=== PATIENT | female | born 1940 | race Caucasian/White ===

== ENCOUNTER → 2016-08-12 | Outpatient (CLI) | payer MEDICARE ==
[~2016-08-12] MED LIST: AML5T; AMLO5TAB2 PO; ANAS1TAB7 PO; ASP325T; ASP325T PO; ASPI-875 PO; ASPI-983 PO; ASPI-999 PO; ATEN25TA PO; ATOR10TA66 PO; ATOR40TA70 PO; ATR20T; BUDE10.2 IH; CARV3.122 PO; CARV6.25; CARV6.252 PO; CEFD300C3 PO; CHOL10002; CHOL50003 PO; CLOP75TA PO; CLOP75TA28 PO; CLPD75T; CPR250T PO; D50KC PO; ESOM20SU PO; FAMO20TA73 PO; FRSM20T; FURO40TA4 PO; HYDR25TA4 PO; HYDR30CR69 TOP; INSU100I29 SQ; INSU100V16; INSU100V5 SQ; INSU100V6 SQ; ISM30TCR PO; KCL10CCR PO; L.AC1CAP6 PO; LEVO750T9 PO; LIRA0.6P SQ; LISI10TA PO; LISI20TA PO; LSNP20T; MENT71OI TOP; MTF500T; NF-PREG50C PO; NFMET1000 PO; NITR-65 PO; NITR0.4T SL; NITR0.4T12 SL; NOVOLOG INSULIN PUMP; OMEP-10; OMEP-10 PO; ONDN4T PO; PANT40TA3 PO; POTA20TA8 PO; PRAV40TA PO; PREG50C PO; PREG75CA PO; ROSU20TA PO; ROSU20TA14 PO; SUCR1TAB PO; TRM50T PO; VITAMIN B12 IJ; WARF-48 PO; [UNRECOGNIZED DRUG - CODE] PO
--- OUTSIDE RECORDS SUMMARY | 2016-08-12 12:16 | XMS REPORT | Continuity of Care Document ---
Author Author [facility] Organization [facility] Address Unknown Phone Unavailable Care Team Providers Care Roller Mechanic Name Role Phone DESTINEE SULTANA DO PCP Insurance Providers Payer Name Policy Number Subscriber Name Relationship [employer] [id number] Shamika Suh 18 Self / Same As Patient [facility] [id number] Shamika Suh 18 Self / Same As Patient Advance Directives Directive Response Recorded Date/Time Advance Directives No 12/25/14 5:00pm Health Care Power of Global Expansion Sales Director N KNOWS PATIENT WISHES 12/25/14 5:00pm Organ Donor Yes 12/25/14 5:00pm Resuscitation Status Full Code 12/25/14 5:00pm Chief Complaint and Reason for Visit Chief Complaint CHEST PAIN Reason for Visit IDDM (insulin dependent diabetes mellitus) Diabetic neuropathy Coronary artery disease Peripheral vascular disease Chest pain Hypertension Problems Medical Problems Problem Onset Date Status IDDM (insulin dependent diabetes mellitus) Unknown Active Diabetic neuropathy Unknown Active Coronary artery disease Unknown Active Peripheral vascular disease Unknown Active Chest pain Unknown Active Hypertension Unknown Active Medications Medication Dose Route Sig Days/Qty Instructions Order Date Discontinued Date Status Lisinopril 07/26/08 01/26/10 Discontinued Metformin HCl 07/26/08 01/26/10 Discontinued Amlodipine Besylate 07/26/08 01/26/10 Discontinued Furosemide 07/26/08 01/26/10 Discontinued Clopidogrel Bisulfate 07/26/08 01/26/10 Discontinued Carvedilol 07/26/08 01/26/10 Discontinued Omeprazole 07/26/08 01/26/10 Discontinued Aspirin 07/26/08 01/26/10 Discontinued Cholecalciferol 07/26/08 01/26/10 Discontinued Atorvastatin Calcium 07/26/08 01/26/10 Discontinued [Bslklx17 Mg] 75 Mg PO TWICE A DAY 01/26/10 01/10/11 Discontinued Potassium Chloride 10 Meq PO DAILY 01/26/10 10/20/12 Discontinued Furosemide (Lasix) 40 Mg PO DAILY 01/26/10 08/19/11 Discontinued Rosuvastatin Calcium 20 Mg PO DAILY 01/26/10 01/10/11 Discontinued Metformin HCl 1,000 Mg PO THREE TIMES A DAY 1 TAB AM, 0.5 TAB NOON, 1 TAB PM 01/26/10 10/15/13 Discontinued Carvedilol (Coreg) 3.125 Mg PO TWICE A DAY 01/26/10 10/20/12 Discontinued Amlodipine Besylate (Norvasc 5 Mg) 10 Mg PO DAILY 01/26/10 08/19/11 Discontinued Clopidogrel Bisulfate 75 Mg PO DAILY 01/26/10 12/25/14 Discontinued Aspirin 81 Mg PO DAILY 01/26/10 12/25/14 Discontinued Anastrozole 1 Mg PO DAILY 01/10/11 01/10/11 Discontinued Ergocalciferol 50,000 Unit PO WEEKLY 01/10/11 01/10/11 Discontinued Pravastatin Sodium 40 Mg PO BEDTIME 01/10/11 10/20/12 Discontinued Famotidine 20 Mg PO DAILY 01/10/11 10/20/12 Discontinued Liraglutide 1.8 Mg SQ BEDTIME 01/10/11 Active [Novolog Insulin Pump] 01/10/11 Active Lisinopril (Zestril) 20 Mg PO DAILY 01/10/11 08/19/11 Discontinued [Vitamin B-12 inj] IJ Monthly 01/10/11 08/19/11 Discontinued Cholecalciferol 5,000 Unit PO WEEKLY TAKES ON Thursday01/10/11 Discontinued Nitroglycerin 0.4 Mg SL NEEDED 01/10/11 08/19/11 Discontinued Furosemide (Lasix) 1 Each PO TWICE A DAY 01/11/11 10/20/12 Discontinued Isosorbide Mononitrate 30 Mg PO BEDTIME 01/11/11 10/15/13 Discontinued Anastrozole 1 Mg PO DAILY 08/19/11 10/15/13 Discontinued Carvedilol (Coreg) 6.25 Mg PO TWICE A DAY 10/20/12 12/25/14 Discontinued Rosuvastatin Calcium 20 Mg PO BEDTIME 10/20/12 10/15/13 Discontinued Omeprazole 20 Mg PO DAILY 10/20/12 12/25/14 Discontinued Lisinopril 10 Mg PO DAILY 10/21/12 10/15/13 Discontinued Ciprofloxacin HCl 250 Mg PO TWICE A DAY 10 Qty 10/25/12 10/15/13 Discontinued Tramadol HCl 50 Mg PO Q4-6HR PRN PAIN 20 Qty FOR PAIN 10/15/13 12/25/14 Discontinued Pregabalin 50 Mg PO DIRECTED 30 Qty 10/15/13 12/25/14 Discontinued Insulin Detemir SQ DAILY per sliding scale 12/25/14 Active Esomeprazole Mag Trihydrate 20 Mg PO BEDTIME 12/25/14 Active Pregabalin 50 Mg PO TWICE A DAY PRN neuropothy 12/25/14 Active Hydrochlorothiazide 25 Mg PO DAILY 12/25/14 Active Aspirin 81 Mg PO DAILY 30 Qty 12/26/14 Active Atorvastatin Calcium 10 Mg PO DAILY 30 Qty 12/26/14 Active Nitroglycerin 0.4 Mg SL NEEDED 30 Qty 12/26/14 Active Social History Social History Problem Response Recorded Date/Time Alcohol Use Denies Use 12/25/2014 5:00pm Recreational Drug Use No 12/25/2014 5:00pm Recent Foreign Travel No 10/15/2013 6:30pm Recent Infectious Disease Exposure No 10/15/2013 6:30pm Hospitalization with Isolation Denies 10/15/2013 6:30pm Smoking Status Never a Smoker 12/25/2014 6:00pm Query Response Start Date Stop Date Smoking Status Never a Smoker Hospital Discharge Instructions No hospital discharge instructions. Plan of Care Discharge Date 12/26/14 2:46pm Disposition 01 HOME, SELF-CARE Instructions/Education Provided 2 Gram Sodium Diet (DC) Prescriptions See Medications Section Additional Instructions/Education Follow up with Dr. Bauman on ThursdayJanuary 12 at 10:00 Functional Status Query Response Date Recorded Patient Orientation Person Place Time Situation December 26, 2014 3:07pm Allergies, Adverse Reactions, Alerts Allergen Type Severity Reaction Status Last Updated Penicillins ([id number]) Allergy Unknown Active 02/10/06 Codeine Allergy Unknown CAN TAKE MORPHINE Active 01/10/11 hydrocodone ([id number]) Allergy Unknown Active 02/10/06 sulfamethoxazole ([id number]) Allergy Intermediate Active 12/25/14 Trimethoprim Allergy Intermediate Active 12/25/14 Tramadol Allergy Intermediate Active 12/25/14 Immunizations Name Given Type Date of Pneumonia Vaccine 12/18/10 Historical Date of Influenza Vaccine 04/19/13 Historical Hepatitis A No Historical Hepatitis B No Historical Tetanus Booster (TDap) Less than 5yrs Historical Vital Signs Acute Vital Signs Vital Response Date/Time Temperature (Fahrenheit) 96.4 degrees F (97.6 - 99.5) Temperature (Calculated Celsius) 35.11228 degrees C (36.4 - 37.5) Temperature Source Temporal Pulse Rate (adult) 80 bpm (60 - 90) Respiratory Rate 20 bpm (12 - 24) O2 Sat by Pulse Oximetry 96 % (88 - 100) Blood Pressure 121/85 mm Hg Pain Pain Intensity 0 Height (Feet) 0 feet Height (Inches) 66.00 inches Height (Calculated Centimeters) 167.574387 cm Weight (Pounds) 201 pounds Weight (Ounces) 8.0 oz Weight (Calculated Grams) 74910.067 gm Weight (Calculated Kilograms) 91.138766 kilograms Calculated BMI 32.44 Results Laboratory Results Test Name Result Units Flags Reference Collection Date/Time Result Date/ Time Comments White Blood Count 8.4 10^3/uL 4.3-11.0 12/26/2014 4:16am 12/26/2014 4: 41am Red Blood Count 4.53 10^6/uL 4.35-5.85 12/26/2014 4:16am 12/26/2014 4: 41am Hemoglobin 12.8 G/DL 11.5-16.0 12/26/2014 4:16am 12/26/2014 4:41am Hematocrit 39 % 35-52 12/26/2014 4:16am 12/26/2014 4:41am Mean Corpuscular Volume 86 FL 80-99 12/26/2014 4:12/26/2014 4: 41am Mean Corpuscular Hemoglobin 28 PG 25-34 12/26/2014 4:12/26/2014 4: 41am Mean Corpuscular Hemoglobin Concent 33 G/DL 32-36 12/26/2014 4:03/2015 4:41am Red Cell Distribution Width 14.2 % 10.0-14.5 12/26/2014 4:2014 4:41am Platelet Count 207 10^3/uL 130-400 12/26/2014 4:12/26/2014 4:41am Mean Platelet Volume 10.0 FL 7.4-10.4 12/26/2014 4:12/26/2014 4: 41am Neutrophils (%) (Auto) 58 % 42-75 12/26/2014 4:12/26/2014 4:41am Lymphocytes (%) (Auto) 32 % 12-44 12/26/2014 4:12/26/2014 4:41am Monocytes (%) (Auto) 8 % 0-12 12/26/2014 4:12/26/2014 4:41am Eosinophils (%) (Auto) 2 % 0-10 12/26/2014 4:12/26/2014 4:41am Basophils (%) (Auto) 0 % 0-10 12/26/2014 4:12/26/2014 4:41am Neutrophils # (Auto) 4.8 X 10^3 1.8-7.8 12/26/2014 4:12/26/2014 4: 41am Lymphocytes # (Auto) 2.7 X 10^3 1.0-4.0 12/26/2014 4:12/26/2014 4: 41am Monocytes # (Auto) 0.6 X 10^3 0.0-1.0 12/26/2014 4:12/26/2014 4: 41am Eosinophils # (Auto) 0.2 10^3/uL 0.0-0.3 12/26/2014 4:12/26/2014 4 :41am Basophils # (Auto) 0.0 10^3/uL 0.0-0.1 12/26/2014 4:1612/26/2014 4: 41am Prothrombin Time 12.9 SEC 12.2-14.7 12/25/2014 2:50pm 12/25/2014 3: 16pm INR Comment 1.0 0.8-1.4 12/25/2014 2:50pm 12/25/2014 3:16pm INTERPRETIVE DATA SUGGESTED THERAPEUTIC RANGE FOR INR'S: VENOUS THROMBOSIS, PULMONARY EMBOLISM, OR PREVENTION OF SYSTEMIC EMBOLISM (EG. IN ATRIAL FIBRILLATION): 2.0 - 3.0 MECHANICAL PROSTHETIC HEART VALVES: 2.5 - 3.5* *NOTE: INR'S UP TO 4.5 MAY BE NECESSARY IN SELECTED GROUPS OF HIGH RISK PATIENTS. [employer] CONSENSUS CONFERENCE ON ANTITHROMBOTIC THERAPY (2000). Activated Partial Thromboplast Time 29 SEC 24-35 12/25/2014 4:40pm 02/2015 7:01pm Sodium Level 140 MMOL/L 135-145 12/26/2014 4:16am 12/26/2014 4:57am Potassium Level 4.2 MMOL/L 3.6-5.0 12/26/2014 4:16am 12/26/2014 4:57am Chloride Level 104 MMOL/L 98-107 12/26/2014 4:16am 12/26/2014 4:57am Carbon Dioxide Level 24 MMOL/L 21-32 12/26/2014 4:16am 12/26/2014 4: 57am Blood Urea Nitrogen 27 MG/DL H 7-18 12/26/2014 4:16am 12/26/2014 4:57am Creatinine 1.12 MG/DL 0.60-1.30 12/26/2014 4:16am 12/26/2014 4:57am BUN/Creatinine Ratio 24 12/26/2014 4:16am 12/26/2014 4:57am Estimat Glomerular Filtration Rate 47 12/26/2014 4:16am 12/26/2014 4:57am GFR INTERPRETIVE DATA UNITS FOR ESTIMATED GFR (eGFR): mL/min/1.73 M2 REFERENCE RANGE FOR ESTIMATED GFR (eGFR) eGFR NORMAL eGFR >60 MODERATELY DECREASED eGFR 30-59 SEVERLY DECREASED eGFR 15-29 KIDNEY FAILURE <15 (OR DIALYSIS) Glucose Level 95 MG/DL 70-105 12/26/2014 4:16am 12/26/2014 4:57am Glucometer 180 MG/DL H 70-110 12/26/2014 9:32am 12/26/2014 9:41am Calcium Level 9.1 MG/DL 8.5-10.1 12/26/2014 4:16am 12/26/2014 4:57am Total Bilirubin 0.4 MG/DL 0.1-1.0 12/26/2014 4:16am 12/26/2014 4:57am Alkaline Phosphatase 54 U/L 40-136 12/26/2014 4:16am 12/26/2014 4:57am Aspartate Amino Transf (AST/SGOT) 19 U/L 5-34 12/26/2014 4:16am 2014 4:57am Alanine Aminotransferase (ALT/SGPT) 19 U/L 0-55 12/26/2014 4:16am 12/26 4:57am Total Creatine Kinase 74 U/L 29-168 12/25/2014 2:50pm 12/25/2014 3: 21pm Creatine Kinase MB 1.2 NG/ML <6.6 12/25/2014 2:50pm 12/25/2014 3:29pm Troponin I < 0.30 NG/ML <0.30 12/26/2014 4:16am 12/26/2014 5:06am Troponin I < 0.30 NG/ML <0.30 12/25/2014 4:40pm 12/25/2014 7:15pm Myoglobin 38.0 NG/ML 10.0-92.0 12/25/2014 4:40pm 12/25/2014 7:15pm B-Type Natriuretic Peptide 52.2 PG/ML <100.0 12/25/2014 2:50pm 2014 3:31pm Total Protein 6.8 G/DL 6.4-8.2 12/26/2014 4:16am 12/26/2014 4:57am Albumin 3.6 G/DL 3.2-4.5 12/26/2014 4:1612/26/2014 4:57am Triglycerides Level 222 MG/DL H <150 12/26/2014 4:16am 12/26/2014 4:57am Cholesterol Level 186 MG/DL < 200 12/26/2014 4:16am 12/26/2014 4:57am HDL Cholesterol 31 MG/DL L 40-60 12/26/2014 4:16am 12/26/2014 4:57am LDL Cholesterol Direct 116 MG/DL 1-129 12/26/2014 4:16am 12/26/2014 4: 57am VLDL Cholesterol 44 MG/DL H 5-40 12/26/2014 4:16am 12/26/2014 4:57am Amylase Level 44 U/L 25-125 12/25/2014 2:50pm 12/25/2014 3:21pm Lipase 44 U/L 8-78 12/25/2014 2:50pm 12/25/2014 3:21pm Procedures Procedure Status Date Provider(s) Tracing only of electrocardiogram completed 12/25/14 DENIS HAIDER DO Color Doppler echocardiography completed 12/25/14 DIMPLE BAUMAN MD Encounters Encounter Location Date/Time Discharged Inpatient [facility] 12/25/14 4:05pm Recent Diagnosis IDDM (insulin dependent diabetes mellitus) Diabetic neuropathy Coronary artery disease Peripheral vascular disease Chest pain Hypertension
--- NOTE | 2016-08-12 19:00 | Diagnostic Imaging Report ---
Digital mammogram bilateral screening INDICATION: Screening. This study was compared to the prior exams of 08/10/2015, 08/08/2014, 07/25/2013, and 01/17/2013. At this time, there are no current complaints. The patient has had a left lumpectomy for carcinoma in 2009. The current study was also evaluated with a Computer Aided Detection (CAD) system. FINDINGS: As noted on the previous exams, there is deformity of the left breast due to the prior surgical procedure. The scar formation in the upper-outer aspect of the left breast seen previously is again evident and no different. There is no sign of recurrent malignancy. The fibroglandular tissue in both breasts is heterogeneously dense. This does limit the sensitivity of this exam. Overall, there does not appear to have been any significant change since the prior studies. There is no primary or secondary sign of malignancy noted. IMPRESSION: The post-lumpectomy changes in the left breast appear stable. There is no sign of malignancy involving either breast. ACR BI-RADS Category 1: Negative. Result letter will be mailed to the patient. Note: At least 10% of breast cancer is not imaged by mammography. Dictated by: Dictated on workstation # [id number]
== END ==
LOC: RAD 12:12
PROVIDERS: ATTEND Nurse Practitioner Adult Health
DX: Z12.31 Encounter for screening mammogram for malignant neoplasm of breast (principal)

== ENCOUNTER → 2016-12-17 | Outpatient (CLI) | payer MEDICARE ==
--- NOTE | 2016-12-17 15:06 | Diagnostic Imaging Report ---
PROCEDURE: US Thyroid. TECHNIQUE: Multiple real-time grayscale images were obtained of the thyroid in various projections. INDICATION: Thyroid nodule. COMPARISON: 06/06/2016. FINDINGS: Right lobe measures 3.8 x 1.8 x 1.5 cm, previously 4.6 x 1.9 x 1.8 cm mildly smaller. Right lobe contains a mid pole nodule oriented laterally and posteriorly measuring 1.5 x 1.1 x 0.9 cm. It is somewhat heterogeneous but its predominant composition is hyperechoic. The mass previously measured 1.1 cm maximal. The left lobe measures 4.8 cm maximal unchanged. A 5 mm nodule off its upper pole is stable. An 8 mm nodule at its lower pole is stable. IMPRESSION: Stable subcentimeter left lobe nodules. Right lobe mass solid hyperechoic mid pole posterolateral measures 1.5 cm maximal previously 1.1 cm. No new lesion. Dictated by: Dictated on workstation # [id number]
== END ==
LOC: RAD 12:08
PROVIDERS: ATTEND Nurse Practitioner Family
DX: E04.1 Nontoxic single thyroid nodule (principal)
CPT/HCPCS: 76536

== ENCOUNTER → 2016-12-24 | Outpatient (CLI) | payer MEDICARE ==
[~2016-12-24] VITALS: Ht 167.6 cm; Wt 93.4 kg
[~2016-12-24] MED LIST changes: +CATHETER FLUSH 10 ML SYR IV PRN; +METO-270 PO; +REGADENOSON 0.4 MG/5 ML SYR (LEXISCAN) IV ONE
[2016-12-24 13:18] VITALS: BP 164/107
[2016-12-24 13:23] VITALS: BP 174/85
--- NOTE | 2016-12-25 06:12 | STRESS TEST ---
DATE OF SERVICE: 12/24/2016 LEXISCAN MYOVIEW STRESS TEST REFERRING PHYSICIAN: Rashaun Gonzales MD Baseline heart rate is 88 baseline, blood pressure 188/100. Baseline EKG is sinus rhythm with no ischemic changes. SUMMARY: The patient was injected with 10.36 mCi of technetium-99 Myoview and the resting images were obtained. Then, the patient received 0.4 mg of Lexiscan followed by 29.6 mCi of technetium-99 Myoview. Throughout the test, there were no EKG changes. The resting and stress images were reviewed and compared in the short axis, horizontal long axis and vertical long axis views. Review of the images showed breast attenuation affecting the quality of the images. There is questionable mild ischemia involving the mid to apical anterior wall or anterolateral wall. SSS is 4, SDS 4. TID is increased of 1.31, which could be related to the underlying hypertension. On the gated images, the left ventricle appeared to be normal size with normal contractility, calculated ejection fraction 48%. CONCLUSION: 1. The patient tolerated Lexiscan well. 2. Baseline hypertension persisted throughout test. 3. Breast attenuation affecting the quality of the images with questionable mild ischemia involving the mid to apical anterior wall and anterolateral wall. 4. Transient ischemic dilatation with TID value 1.31. 5. Normal left ventricular size with normal contractility, calculated ejection fraction 48%. Job ID: [id number] DocumentID: [id number] Dictated Date: 12/24/2016 15:14:10 Card Puncher Date: 12/24/2016 19:54:47 Dictated By: DIMPLE NOVOA MD
== END ==
LOC: CARD 10:48
PROVIDERS: ATTEND Physician Assistant
DX: I25.10 Atherosclerotic heart disease of native coronary artery without angina pectoris (principal); I65.23 Occlusion and stenosis of bilateral carotid arteries; E11.9 Type 2 diabetes mellitus without complications; I10 Essential (primary) hypertension
CPT/HCPCS: 78452; 93017; 93306

== ENCOUNTER 2016-12-26 07:30 | Day surgery (SDC) | payer MEDICARE ==
[~2016-12-26] VITALS: Ht 167.6 cm; Wt 92.1 kg
[2016-12-26] VITALS (26 sets, daily range): BP systolic 90–169; BP diastolic 55–106
[~2016-12-26 07:30] MED LIST changes: -CATHETER FLUSH 10 ML SYR IV PRN; -METO-270 PO; -REGADENOSON 0.4 MG/5 ML SYR (LEXISCAN) IV ONE
[2016-12-26] MEDS ORDERED: NS IV 1000 ML 1,000 ML ONE (07:32)
[2016-12-26] MEDS ORDERED: HEParin (CATH LAB) 2,000 ML IV ONE ×2 (07:32→12:20)
[2016-12-26] MEDS ORDERED: NS IV 1000 ML 1,000 ML IV SCH ×2 (08:06→11:00)
[2016-12-26] MEDS ORDERED: ASPI-983 PO (08:32)
[2016-12-26] MEDS ORDERED: METO-270 PO (08:37)
[2016-12-26 08:38] LABS: BILIRUBIN,URINE NEGATIVE (NEGATIVE); KETONES,URINE NEGATIVE (NEGATIVE); LEUKOCYTE ESTERASE ,URINE 2+ (NEGATIVE); NITRITE,URINE POSITIVE (NEGATIVE); PH,URINE 5 (5-9); PROTEIN,URINE 2+ (NEGATIVE); UROBILINOGEN,URINE NORMAL (NORMAL)
--- NOTE | 2016-12-26 08:41 | Diagnostic Imaging Report ---
INDICATION: Chest pain Frontal chest obtained at 8:18 AM and compared with 12/05/15. Heart is normal in size. Pacemaker device is unchanged. There is no acute infiltrate or pneumothorax or pleural fluid. IMPRESSION: No acute process in the chest and no change from 12/05/15. Dictated by: Dictated on workstation # [id number]
[2016-12-26 08:50] LABS: WBC,URINE 25-50 /HPF
[2016-12-26 08:56] LABS: ALBUMIN 3.9 G/DL (3.2-4.5); BILIRUBIN,TOTAL 0.5 MG/DL (0.1-1.0); CALCIUM 9.3 MG/DL (8.5-10.1); CREATININE SERUM 1.47 MG/DL (0.60-1.30); POTASSIUM 4.1 MMOL/L (3.6-5.0); TOTAL PROTEIN 7.7 G/DL (6.4-8.2)
[2016-12-26] MEDS ORDERED: MIDAZOLAM 5 MG/5 ML (VERSED) VIAL ONE (09:54)
[2016-12-26] MEDS ORDERED: fentaNYL INJECTION 100 MCG/2 ML AMP ONE ×2 (09:54→12:29)
--- NOTE | 2016-12-26 10:01 | Cardiac Procedure Note-CS/ASA ---
Pre-Procedure Note Pre-Op Procedure Note H&P Reviewed The H&P was reviewed, patient examined and no changes noted. Date H&P Reviewed: Dec 26, 2016 Time H&P Reviewed: 10: Conscious Sedation Pre-Proced Time Reviewed: 10: ASA Class: 3 Airway Mallampati Classification: (tunica-biloxi appropriate class) I. II. III, IV Lungs Heart ASA score ASA 1: a normal healthy patient ASA 2: a patient with a mild systemic disease (mid diabetes, controlled hypertension, obesity x ASA 3: a patient with a severe systemic disease that limits activity (angina , COPD, prior Myocardial infarction) ASA 4: a patient with an incapacitating disease that is a constant threat to life (CHF, renal failure) ASA 5: a moribund patient not expected to survive 24 hrs. (ruptured aneurysm) ASA 6: a declared brain patient whose organs are being harvested. For emergent operations, add the letter E after the classification Grade 3 Sedation Plan: Analgesia, Amnesia, Plan communicated to team members, Discussed options with patient/fam, Discussed risks with patient/fam Note The patient is an appropriate candidate to undergo the planned procedure, sedation, and anesthesia. The patient immediately re-assessed prior to indication. DIMPLE NOVOA MD Dec 26, 2016 10:01
[2016-12-26 10:40] LABS: BASOPHILS % (AUTO) 0 % (0-10); EOSINOPHILS # (AUTO) 0.2 10^3/uL (0.0-0.3); EOSINOPHILS % (AUTO) 3 % (0-10); LYMPHOCYTES # (AUTO) 2.1 X 10^3 (1.0-4.0); LYMPHOCYTES % (AUTO) 29 % (12-44); MEAN CORPUSCULAR HEMOGLOBIN 27 PG (25-34); MEAN CORPUSCULAR HGB CONC 32 G/DL (32-36); MEAN CORPUSCULAR VOLUME 82 FL (80-99); MONOCYTES # (AUTO) 0.7 X 10^3 (0.0-1.0); MONOCYTES % (AUTO) 10 % (0-12); NEUTROPHILS # (AUTO) 4.1 X 10^3 (1.8-7.8); NEUTROPHILS % (AUTO) 58 % (42-75); PLATELET COUNT 191 10^3/uL (130-400); RED BLOOD COUNT 5.66 10^6/uL (4.35-5.85); RED CELL DISTRIBUTION WIDTH 17.2 % (10.0-14.5); WHITE BLOOD COUNT 7.1 10^3/uL (4.3-11.0)
[2016-12-26] MEDS ORDERED: EPTIFIBATIDE BOLUS 0 ML IV ONE (10:43)
[2016-12-26] MEDS ORDERED: NITROGLYCERIN DRIP 25 MG/D5W 250 ML IV ONE ×2 (10:43→12:29)
[2016-12-26] MEDS ORDERED: HEParin 1000 UNIT/ML (10ML VIAL) FOR BOLUS ONE ×2 (10:43→12:30)
[2016-12-26] MEDS ORDERED: meTOprolol 5 MG/5 ML (LOPRESSOR) VIAL ONE (10:46)
[2016-12-26] MEDS ORDERED: PATIENT MAY USE OWN MEDS, ALL PO SCH ×2 (11:00→13:15)
--- NOTE | 2016-12-26 11:04 | Cardiology Post Procedure Note ---
Post-Procedure Note Physician (s)/Satellite Communications Operator (s) Physician DIMPLE NOVOA MD Pre-Procedure Diagnosis Pre-Procedure Diagnosis: CAD Post-Procedure Note Procedure Start Date: Dec 26, 2016 Procedure Start Time: 10:40 Name of Procedure: LHC/ PTCA Findings/Procedure Note CAD Severe in-stent restenosis in the mid circumflex artery successful balloon angioplasty Patent stent in the LAD and right coronary artery with 50 percent stenosis Anesthesia Type: Conscious Sedation Estimated blood loss (mL): 10 Contrast Amount: 35 Post-Procedure Diagnosis Post-operative diagnosis: coronary artery disease DIMPLE NOVOA MD Dec 26, 2016 11:04
[2016-12-26] MEDS ORDERED: ASPIRIN 325 MG (5 GR) TABLET ONE (11:07)
[2016-12-26] MEDS ORDERED: CLOPIDOGREL 300 MG (PLAVIX) TABLET PO ONE (11:08)
[2016-12-26] MEDS ORDERED: NITROGLYCERIN DRIP 25 MG/D5W 250 ML IV SCH (11:15)
[2016-12-26] MEDS ORDERED: ISOSORBIDE MONONITRATE 30 MG (IMDUR) TAB PO NR (11:15)
[2016-12-26] MEDS ORDERED: inSUlin ASPART (NovoLOG) 1 UNIT/0.01 ML (CHARGE PER UNIT) SC SCH (11:15)
[2016-12-26] MEDS: NITROGLYCERIN SUBLINGUAL 0.4 MG TAB (NITROSTAT) SL PRN ×3 (12:10→12:16)
[2016-12-26] MEDS ORDERED: MIDAZOLAM 2 MG/2 ML (VERSED) VIAL ONE (12:29)
--- NOTE | 2016-12-26 12:29 | Cardiac Procedure Note-CS/ASA ---
Pre-Procedure Note Pre-Op Procedure Note H&P Reviewed The H&P was reviewed, patient examined and no changes noted. Date H&P Reviewed: Dec 26, 2016 Time H&P Reviewed: 12:29 Conscious Sedation Pre-Proced Time Reviewed: 12:29 ASA Class: 3 Airway Mallampati Classification: (angoon appropriate class) I. II. III, IV Lungs Heart ASA score ASA 1: a normal healthy patient ASA 2: a patient with a mild systemic disease (mid diabetes, controlled hypertension, obesity x ASA 3: a patient with a severe systemic disease that limits activity (angina , COPD, prior Myocardial infarction) ASA 4: a patient with an incapacitating disease that is a constant threat to life (CHF, renal failure) ASA 5: a moribund patient not expected to survive 24 hrs. (ruptured aneurysm) ASA 6: a declared brain patient whose organs are being harvested. For emergent operations, add the letter E after the classification Grade 3 Sedation Plan: Analgesia, Amnesia, Plan communicated to team members, Discussed options with patient/fam, Discussed risks with patient/fam Note The patient is an appropriate candidate to undergo the planned procedure, sedation, and anesthesia. The patient immediately re-assessed prior to indication. DIMPLE NOVOA MD Dec 26, 2016 12:29
--- NOTE | 2016-12-26 13:24 | Cardiology Post Procedure Note ---
Post-Procedure Note Physician (s)/Licensed Home Inspector (s) Physician DIMPLE NOVOA MD Pre-Procedure Diagnosis Pre-Procedure Diagnosis: CAD Post-Procedure Note Procedure Start Date: Dec 26, 2016 Procedure Start Time: 13:00 Name of Procedure: LHC/ Stent to LCX Anesthesia Type: Conscious Sedation Estimated blood loss (mL): 5 Contrast Amount: 77 Post-Procedure Diagnosis Post-operative diagnosis: CAD DIMPLE NOVOA MD Dec 26, 2016 13:24
--- NOTE | 2016-12-26 13:42 | CARDIAC CATHETERIZATION ---
DATE OF SERVICE: 12/26/2016 REFERRING PHYSICIAN: Dr. Rashaun Gonzales. BRIEF HISTORY: The patient is a 76-year-old lady with history of coronary artery disease, multiple interventions in the past. The patient has been having chest pain, had an abnormal stress test. She was scheduled for left heart catheterization, possible PTCA. PROCEDURE NOTE: After explaining the procedure to the patient, all pros and cons were explained, all questions were answered. The patient signed the consent and she was placed on the cardiac catheterization laboratory. Right groin was prepped in a sterile fashion, local anesthesia applied to the right groin. A 6 Serbian sheath was placed in the right femoral artery. A combination of right and left Diana catheters were used to access the right and left coronary system, multiple views were obtained. Pigtail catheter advanced to the left ventricular cavity. Pressure was measured. No left ventriculogram was done. Pull back LV to aorta was done. The patient was noted to have severe in-stent restenosis in the mid circumflex artery, 80% stenosis. She was given 6000 units of heparin. FL guide was advanced to the left coronary system. BMW wire was advanced to the distal circumflex artery, then balloon angioplasty using 3.0 x 20 mm Emerge balloon, extended to 3.25 mm. Angiogram post-intervention showed excellent results, no residual stenosis. At the end of the procedure, sheath was sutured in place, no complication noted. TOTAL CONTRAST USED: 35 mL. TOTAL RADIATION DOSE: 439 mGy. FINDINGS: Hemodynamics: LV pressure 220/39, end-diastolic pressure of 39, aortic pressure is 205/102, mean of 147. ANATOMY: 1. The left main coronary artery is bifurcating into left anterior descending and left circumflex artery with no obstructive disease. 2. Left anterior descending artery is a calcified artery, stents are patent, small vessel disease distally. 3. Left circumflex artery has multiple stents, 80% in-stent restenosis in the mid circumflex artery, balloon angioplasty with 3.0 x 20 mm Emerge balloon showed excellent results. No residual stenosis. 4. Right coronary artery has multiple stents, proximally 50% stenosis, mid portion has 40%-50% stenosis. Non-obstructive disease, small vessel disease distally. 5. No left ventriculogram was done. IN CONCLUSION: 1. An 80% in-stent restenosis in the mid circumflex artery with successful balloon angioplasty using 3.0 x 20 mm Emerge balloon expanded to 3.25 mm with excellent results. No residual stenosis was noted. 2. Small vessel disease in the mid and distal LAD. 3. A 50% stenosis in the proximal and mid right coronary artery with multiple patent stents, small vessels disease distally, nonobstructive disease. 4. Severe hypertension with elevated left ventricular end-diastolic pressure. DISCUSSION AND RECOMMENDATIONS: I will continue maximizing medical therapy. Further recommendation will follow based on her progression. FINAL DIAGNOSES: 1. Coronary artery disease. 2. Hypertension. 3. Hyperlipidemia. 4. Peripheral arterial disease. Thank you for allowing me to participate in the management of this patient. Job ID: [id number] DocumentID: [id number] Dictated Date: 12/26/2016 11:09:33 Electrical Prospecting Operator Date: 12/26/2016 12:15:26 Dictated By: DIMPLE NOVOA MD
--- NOTE | 2016-12-26 15:42 | CARDIAC CATHETERIZATION ---
DATE OF SERVICE: 12/26/2016 BRIEF HISTORY: The patient is a 76-year-old lady who underwent cardiac catheterization with balloon angioplasty for instent restenosis earlier today. She was feeling well then she started having active chest pain, given multiple sublingual nitroglycerine and started on nitroglycerine drip, continued to have active chest pain. EKG showed minimal changes. I decided to proceed with emergency reevaluation of her coronary anatomy. PROCEDURE NOTE: The patient was brought back to the cardiac catheterization laboratory, placed on the cardiac catheterization laboratory. The patient had a sheath in the right groin. It was exchanged under aseptic technique. A new sheath was placed and I advanced a JL guide to the left coronary system. Angiogram was done and showed recoil within the stent with the instent restenosis. The patient was given an additional 5000 units of heparin. I advanced BMW wire again and advanced a noncompliant balloon 3.5 x 20 mm, did multiple inflations under high pressure up to 17 atmospheres. Angiogram showed excellent results. Some recoil was noted again. Subsequently, due to the fact that she is having significant recoil, I knew that she will have it again without putting a new stent. I was hesitant in the earlier procedure to put a new stent within an old stent due to the history of having multiple interventions and multiple stents. The patient recalled having a total of 11 stents, but with having significant recoil in the stenosis I found myself obligated to put a new stent. I advanced Xience Alpine 3.5 x 18 mm stent to the mid to distal circumflex artery and expanded under high pressure up to 15 atmospheres up to 3.8 mm in diameter. Given intracoronary nitroglycerine angiogram showed excellent result with no recoil and no restenosis. At that point sheath was sutured in place. No complication noted. CONCLUSION: Successful balloon angioplasty and stent deployment in the distal circumflex artery for recoil of the instent restenosis with the use of a new stent, 3.5 x 18 Xience Alpine stent deployed without complication with excellent results. DISCUSSION AND RECOMMENDATIONS: The patient received Plavix and aspirin earlier. I will continue maximizing medical therapy. Job ID: [id number] DocumentID: [id number] Dictated Date: 12/26/2016 13:09:37 Stretcher Drier Operator Date: 12/26/2016 15:41:52 Dictated By: DIMPLE NOVOA MD
[2016-12-26] MEDS: NS IV 1000 ML 1,000 ML IV SCH ×2 (20:17→23:04)
[2016-12-26] MEDS ORDERED: MEPERIDINE (DEMEROL) INJ 50 MG/ML IVP PRN (21:00)
[2016-12-26] MEDS ORDERED: PANTOPRAZOLE 40 MG (PROTONIX) TAB PO SCH (21:00)
[2016-12-26] MEDS ORDERED: oxyCODONE/APAP 5/325MG (PERCOCET 5) TABLET PO PRN (21:00)
[2016-12-26] MEDS ORDERED: LIRAGLUTIDE 1.8 MG SQ SCH (21:00)
[2016-12-27] VITALS (9 sets, daily range): BP systolic 90–128; BP diastolic 50–71
[2016-12-27 04:01] LABS: MEAN PLATELET VOLUME 10.7 FL (7.4-10.4); RED BLOOD COUNT 4.64 10^6/uL (4.35-5.85); RED CELL DISTRIBUTION WIDTH 16.8 % (10.0-14.5); WHITE BLOOD COUNT 8.3 10^3/uL (4.3-11.0)
[2016-12-27 04:25] LABS: CALCIUM 8.5 MG/DL (8.5-10.1); CREATININE SERUM 1.29 MG/DL (0.60-1.30); POTASSIUM 4.1 MMOL/L (3.6-5.0)
[2016-12-27] MEDS ORDERED: ASPIRIN E.C. 81 MG (ECOTRIN) TAB PO SCH ×2 (09:00)
[2016-12-27] MEDS ORDERED: CLOPIDOGREL 75 MG (PLAVIX) TABLET PO SCH ×2 (09:00)
[2016-12-27] MEDS ORDERED: ISOSORBIDE MONONITRATE 30 MG (IMDUR) TAB PO SCH (09:00)
[2016-12-27] MEDS ORDERED: ROSUVASTATIN 20 MG (CRESTOR) TABLET PO SCH (09:00)
[2016-12-27] MEDS ORDERED: CIPR-225 PO (10:41)
--- NOTE | 2016-12-27 10:42 | Discharge Inst-Post CATH ---
Discharge Inst-CATH Post Cardiac Cath D/C Inst Follow Up/Plan Appointment with Dr Bauman's office in 2-4 weeks CARDIAC CATH DISCHARGE INSTRUCTIONS *Hold Metformin for 48 hours post heart cath. ACTIVITY * Go Home directly and rest. * Limit activity of the leg (or wrist if it was used) for 7 days including aerobics, swimming, jogging, bicycling, etc. * Restrict stair-climbing for 7 days if possible, if not, climb up with your non -cath leg, then bring together on the same step. * Avoid lifting, pushing, pulling or excessive movement of the affected extremity for 7 days. * Customary sexual activity may be resumed after 2 days-use caution not to use a position that strains or causes pain to the affected extremity. * No driving for 24 hours. * NO SMOKING. * Avoid straining for bowel movements for 7 days. * Gentle walking on level ground is allowed. * Returning to work will depend on the type of procedure and the results. Your doctor will discuss this with you. CALL YOUR DOCTOR FOR ANY OF THE FOLLOWING: *If bleeding from the puncture site occurs- Apply gentle pressure to site with clean cloth and call your doctor or EMS. * If a knot or lump forms under the skin, increases in size, or causes pain. * If bruising appears to be worsening or moving further down your leg instead of disappearing. * Temperature above 101 F. CARE OF YOUR GROIN INCISION; * Bruising or purple discoloration of the skin near the puncture site is common. * You may shower only, no bathtub bathing for 5 days. Be careful to avoid slipping as your leg may feel stiff. * If a closure device was used on your femoral artery, please see the attached guide regarding care of the device and your leg. * REMOVE the dressing from your groin the next day after your procedure in the shower. CARE OF YOUR WRIST INCISION; * Bruising or purple discoloration of the skin near the puncture site is common. * You may shower. * DO NOT submerge wrist. * Remove dressing in 24 hours. DIMPLE BAUMAN MD Dec 27, 2016 10:42
--- NOTE | 2016-12-27 11:05 | Cardiology Progress Note ---
Subjective Date Seen by Provider: Dec 27, 2016 Time Seen by Provider: 11:03 Subjective/Events-last exam patient is laying down in a chair, feeling well. Denied any chest pain or shortness of breath, groin is healing well. Review of Systems General: No Chills, No Night Sweats, No Fatigue, No Malaise, No Appetite, No Other HEENT: No Head Aches, No Visual Changes, No Eye Pain, No Ear Pain, No Dysphasia , No Sinus Congestion, No Post Nasal Drip, No Sore Throat, No Other Pulmonary: No Dyspnea, No Cough, No Pleuritic Chest Pain, No Other Cardiovascular: No: Chest Pain, Edema, Lt Headedness, Orthopnea, Other, Palpitations, Paroxysmal Noc. Dyspnea Objective-Cardiology Exam Last Set of Vital Signs Vital Signs 12/26/16 12/27/16 12/27/16 18:00 04:00 06:00 Temp 97.0 Pulse 74 Resp 14 B/P (MAP) 98/52 Pulse Ox 90 O2 Delivery Room Air O2 Flow Rate 5.00 FiO2 90 Capillary Refill : Less Than 3 Seconds I&O Bad tableGeneral: Alert, Oriented X3, Cooperative HEENT: Atraumatic, PERRLA Neck: Supple, No JVD, No Thyromegaly Lungs: Clear to Auscultation, Normal Air Movement Heart: Regular Rate, Normal S1, Normal S2, No Murmurs Abdomen: Normal Bowel Sounds, Soft, No Tenderness, No Hepatosplenomegaly, No Masses Extremities: No Clubbing, No Cyanosis, No Edema, Normal Pulses, No Tenderness/ Swelling Skin: No Rashes, No Breakdown, No Significant Lesion Neuro: Normal Gait, Normal Speech, Strength at 5/5 X4 Ext, Normal Tone, Sensation Intact Psych/Mental Status: Mental Status NL, Mood NL Results Lab Laboratory Tests 12/27/16 03:35 A/P-Cardiology Admission Diagnosis chest pain Coronary artery disease Urinary tract infection Hypertension Hyperlipidemia Assessment/Plan chest pain, unstable angina, improved, no further episode of chest pain. Continue to monitor Coronary artery disease multiple intervention the past, underwent balloon angioplasty for in-stent restenosis with excellent results, started having chest pain again later during the day, I took her back to the catheter lab and there was a recoil, nonobstructive disease but I felt that it is the cause of her chest pain I tried high pressure balloon without fully improving the haziness in the stent. I was obligated to deploy and new stent within the stent in the circumflex artery using Xience Alpine 3.518 mm with excellent results. No further chest pain since then. Planning to discharge home today Urinary tract infection with Klebsiella, I'll treat her with Cipro as an outpatient for 1 week. Hypertension, controlled continue on current medication continue to monitor Hyperlipidemia, continue current medications and monitor Clinical Quality Measures DVT/VTE Risk/Contraindication: Risk Factor Score Per Nursin RFS Level Per Nursing on Admit: 3=High DIMPLE NOVOA MD Dec 27, 2016 11:05
--- NOTE | 2016-12-27 11:06 | Clinic Account Progress/Dx ---
Clinic Account Progress/Dx DIAGNOSIS: Date Seen by Provider: Dec 27, 2016 Time Seen by Provider: 11:06 Diagnosis chest pain Coronary artery disease Urinary tract infection Hypertension Hyperlipidemia DIMPLE NOVOA MD Dec 27, 2016 11:06
--- OUTSIDE RECORDS SUMMARY | 2017-01-05 16:34 | XMS REPORT | Continuity of Care Document ---
Author Author [facility] Organization [facility] Address Unknown Phone Unavailable Allergies Active Description Code Type Severity Reaction Onset Reported/Identified Relationship to Patient Clinical Status Yes sulfamethoxazole [id number] Drug Allergy Moderate N/A 10/05/2015 Yes tramadol [id number] Drug Allergy Moderate N/A 10/05/2015 Yes trimethoprim [id number] Drug Allergy Moderate N/A 10/05/2015 Yes codeine [id number] Drug Allergy Unknown CAN TAKE MORPHI 10/05/2015 Yes hydrocodone [id number] Drug Allergy Unknown N/A 10/05/2015 Yes Penicillins [id number] Drug Allergy Unknown N/A 10/05/2015 Yes amiodarone [id number] Drug Allergy Unknown NAUSEA, dizzine 12/05/2015 Yes amiodarone [id number] Drug Allergy Mild NAUSEA, dizzine 02/01/2016 Medications 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 06/18/1199 JOE ROBERTSON MD Ot 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 08/08/2014 NAOMY KINGP Ot 174.9 08/29/2014 ANTHONY GARZA Ot 174.9 08/29/2014 ANTHONY GARZA Ot V76.11 08/31/2014 ANTHONY GARZA N Ot 174.9 08/31/2014 ANTHONY GARZA Ot V76.11 08/31/2014 NAOMY KING URBAN REDEVELOPMENT SPECIALIST Ot 174.9 08/31/2014 NAOMY KING URBAN REDEVELOPMENT SPECIALIST Ot 250.00 08/31/2014 NAOMY KINGP Ot 585.3 08/31/2014 NAOMY KINGP Ot V15.3 08/31/2014 NAOMY KING URBAN REDEVELOPMENT SPECIALIST Ot V58.67 08/31/2014 NAOMY KING S URBAN REDEVELOPMENT SPECIALIST Ot V58.69 08/31/2014 ANTHONY GARZA N Ot 174.9 08/31/2014 ANTHONY GARZA N Ot V76.11 08/31/2014 NAOMY KING S URBAN REDEVELOPMENT SPECIALIST Ot 174.9 08/31/2014 NAOMY KING S URBAN REDEVELOPMENT SPECIALIST Ot 250.00 08/31/2014 NAOMY KING S URBAN REDEVELOPMENT SPECIALIST Ot 585.3 08/31/2014 KINGNAOMY Diaz S URBAN REDEVELOPMENT SPECIALIST Ot V15.3 08/31/2014 KINGNAOMY Diaz S URBAN REDEVELOPMENT SPECIALIST Ot V58.67 08/31/2014 KINGNAOMY S URBAN REDEVELOPMENT SPECIALIST Ot V58.69 09/13/2014 KINGNAOMY Diaz S URBAN REDEVELOPMENT SPECIALIST Ot 174.9 09/13/2014 NAOMY KING S URBAN REDEVELOPMENT SPECIALIST Ot 250.00 09/13/2014 NAOMY KING S URBAN REDEVELOPMENT SPECIALIST Ot 585.3 09/13/2014 NAMOY KING S URBAN REDEVELOPMENT SPECIALIST Ot V15.3 09/13/2014 NAOMY KING S URBAN REDEVELOPMENT SPECIALIST Ot V58.67 09/13/2014 KINGNAOMY Diaz S URBAN REDEVELOPMENT SPECIALIST Ot V58.69 12/25/2014 ANTHONY GARZA N Ot 174.9 12/25/2014 ANTHONY GARZA N Ot V76.11 12/25/2014 NAOMY KING S URBAN REDEVELOPMENT SPECIALIST Ot 174.9 12/25/2014 KINGNAOMY Diaz S URBAN REDEVELOPMENT SPECIALIST Ot 250.00 12/25/2014 KINGNAOMY Diaz S URBAN REDEVELOPMENT SPECIALIST Ot 585.3 12/25/2014 KINGNAOMY Diaz S URBAN REDEVELOPMENT SPECIALIST Ot V15.3 12/25/2014 KINGNAOMY Diaz S URBAN REDEVELOPMENT SPECIALIST Ot V58.67 12/25/2014 KINGNAOMY Diaz S URBAN REDEVELOPMENT SPECIALIST Ot V58.69 12/25/2014 KINGNAOMY Diaz S URBAN REDEVELOPMENT SPECIALIST Ot 174.9 12/25/2014 KINGNAOMY Diaz S URBAN REDEVELOPMENT SPECIALIST Ot V49.81 12/25/2014 KINGNAOMY S URBAN REDEVELOPMENT SPECIALIST Ot V58.69 12/25/2014 MARCELO ROJAS, JOE Sherman Ot 599.0 12/25/2014 Ot V45.82 12/25/2014 Ot V57.89 12/26/2014 SOMMER ROJAS, DIMPLE Soliman Ot 250.60 12/26/2014 SOMMER ROJAS, DIMPLE J Ot 272.4 12/26/2014 SOMMER ROJAS, BASHAR J Ot 357.2 12/26/2014 SOMMER ROJAS, BASHAR J Ot 403.90 12/26/2014 SOMMER ROJAS, BASHAR J Ot 414.01 12/26/2014 SOMMER ROJAS, MARLOHAR J Ot 427.31 12/26/2014 SOMMER ROJAS, MARLOHAR J Ot 433.10 12/26/2014 SOMMER ROJAS, BASHAR J Ot 443.9 12/26/2014 SOMMER ROJAS, BASHAR J Ot 530.81 12/26/2014 SOMMER ROJAS, DIMPLE J Ot 585.3 12/26/2014 SOMMER ROJAS, DIMPLE J Ot 786.50 12/26/2014 SOMMER ROJAS, DIMPLE J Ot V10.3 12/26/2014 SOMMER ROJAS, DIMPLE J Ot V45.01 12/26/2014 SOMMER ROJAS, DIMPLE J Ot V45.82 12/26/2014 DIMPLE NOVOA MD J Ot V58.67 12/26/2014 SOMMER ROJAS, DIMPLE J Ot 250.60 12/26/2014 SOMMER ROJAS, DIMPLE J Ot 272.4 12/26/2014 SOMMER ROJAS, MARLOHAR J Ot 357.2 12/26/2014 SOMMER ROJAS, MARLOHAR J Ot 403.90 12/26/2014 SOMMER ROJAS, DIMPLE J Ot 414.01 12/26/2014 SOMMER ROJAS, DIMPLE J Ot 427.31 12/26/2014 SOMMER ROJAS, DIMPLE J Ot 433.10 12/26/2014 SOMMER ROJAS, MARLOHAR J Ot 443.9 12/26/2014 OSMMER ROJAS, DIMPLE J Ot 530.81 12/26/2014 SOMMER ROJAS, DIMPLE J Ot 585.3 12/26/2014 SOMMER ROJAS, MARLOHAR J Ot 786.50 12/26/2014 SOMMER ROJAS, DIMPLE J Ot V10.3 12/26/2014 SOMMER ROJAS, DIMPLE J Ot V45.01 12/26/2014 SOMMER ROJAS, MARLOHAR J Ot V45.82 12/26/2014 SOMMER ROJAS, MARLOHAR J Ot V58.67 03/06/2015 ANTHONY GARZA N Ot 174.9 03/06/2015 ANTHONY GARZA Ot 250.00 03/06/2015 GREG, ALYCEAN N Ot 585.3 03/06/2015 GREG, BOBAN N Ot V15.3 03/06/2015 GREG, BOBAN N Ot V49.81 03/06/2015 GREG, BOBAN N Ot V58.67 03/06/2015 GERG, BOBAN N Ot V58.69 03/16/2015 GREG, BOBAN N Ot 174.9 03/16/2015 GREG, BOBAN N Ot 250.00 03/16/2015 GREG, BOBAN N Ot 585.3 03/16/2015 GREG, BOBAN N Ot V15.3 03/16/2015 GREG, ANTHONY N Ot V49.81 03/16/2015 GREG, ANTHONY N Ot V58.67 03/16/2015 GREG, BOBAN N Ot V58.69 03/27/2015 GREG, BOBAN N Ot 174.9 03/27/2015 GREG, BOBBJORN N Ot 250.00 03/27/2015 GREG, ANTHONY N Ot 585.3 03/27/2015 GREG, BOBBJORN N Ot V15.3 03/27/2015 GREG, ANTHONY N Ot V49.81 03/27/2015 GREG, ANTHONY N Ot V58.67 03/27/2015 GREG, ANTHONY N Ot V58.69 2015 GREG, BOBAN N Ot 174.9 2015 GREG, BOBBJORN N Ot V76.11 2015 NAOMY KING URBAN REDEVELOPMENT SPECIALIST Ot 174.9 2015 NAOMY KING URBAN REDEVELOPMENT SPECIALIST Ot 250.00 2015 NAOMY KING URBAN REDEVELOPMENT SPECIALIST Ot 585.3 2015 NAOMY KING S URBAN REDEVELOPMENT SPECIALIST Ot V15.3 2015 NAOMY KING S URBAN REDEVELOPMENT SPECIALIST Ot V58.67 2015 NAOMY KING S URBAN REDEVELOPMENT SPECIALIST Ot V58.69 2015 NAOMY KING S URBAN REDEVELOPMENT SPECIALIST Ot 174.9 2015 NAOMY KING S URBAN REDEVELOPMENT SPECIALIST Ot V49.81 2015 NAOMY KING S URBAN REDEVELOPMENT SPECIALIST Ot V58.69 2015 JOE ROBERTSON MD Ot 599.0 2015 ANTHONY GARZA N Ot 174.9 2015 GREGANTHONY SAMSON N Ot 250.00 2015 ANTHONY GARZA N Ot 585.3 2015 GREGANTHONY SAMSON N Ot V15.3 2015 ANTHONY GARZA N Ot V49.81 2015 ANTHONY GARZA N Ot V58.67 2015 GREGANTHONY SAMSON N Ot V58.69 04/18/2015 SULTANASARAHYANUP L URBAN REDEVELOPMENT SPECIALIST Ot 240.9 04/18/2015 SULTANA, ANUP L URBAN REDEVELOPMENT SPECIALIST Ot 266.2 04/18/2015 SULTANA ANUP L URBAN REDEVELOPMENT SPECIALIST Ot 268.9 04/18/2015 SULTANA ANUP L URBAN REDEVELOPMENT SPECIALIST Ot 275.2 04/18/2015 SULTANA, ANUP L URBAN REDEVELOPMENT SPECIALIST Ot 458.9 04/18/2015 SULTANA, ANUP L URBAN REDEVELOPMENT SPECIALIST Ot 593.9 04/18/2015 SULTANA, ANUP L URBAN REDEVELOPMENT SPECIALIST Ot 785.1 04/18/2015 SULTANA, ANUP L URBAN REDEVELOPMENT SPECIALIST Ot 787.20 05/10/2015 ANGEL MCDOWELL MD Ot E11.40 TYPE 2 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 WITH DIABETIC N 05/10/2015 ANGEL MCDOWELL MD Ot G45.9 TRANSIENT CEREBRAL ISCHEMIC ATTACK, UNSP 05/10/2015 ANGEL MCDOWELL MD Ot Z79.02 [facility] (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 OF ANTITHROMBOTI 05/10/2015 ANGEL MCDOWELL MD Ot Z79.4 RESEARCH COMPLIANCE SPECIALIST (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 05/10/2015 ANGEL MCDOWELL MD Ot Z79.899 OTHER [facility] (CURRENT) DRUG THERAPY 05/10/2015 VITALY DO, DENIS K Ot E11.40 TYPE 2 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 WITH DIABETIC N 05/10/2015 VITALY DO, DENIS K Ot G45.9 TRANSIENT CEREBRAL ISCHEMIC ATTACK, UNSP 05/10/2015 VITALY DO, DENIS K Ot Z79.02 [facility] (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 OF ANTITHROMBOTI 05/10/2015 VITALY DO, DENIS K Ot Z79.4 RESEARCH COMPLIANCE SPECIALIST (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 05/10/2015 DENIS HAIDER DO Ot Z79.82 RESEARCH COMPLIANCE SPECIALIST (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 OF ASPIRIN 05/29/2015 ANUP SULTANA L URBAN REDEVELOPMENT SPECIALIST Ot 240.9 05/29/2015 SULTANAKIERAN PHILLIPSIA L URBAN REDEVELOPMENT SPECIALIST Ot 266.2 05/29/2015 SULTANAKIERAN PHILLIPSIA L URBAN REDEVELOPMENT SPECIALIST Ot 268.9 05/29/2015 SULTANAKIERAN PHILLIPSIA L URBAN REDEVELOPMENT SPECIALIST Ot 275.2 05/29/2015 SULTANAKIERAN PHILLIPSIA L URBAN REDEVELOPMENT SPECIALIST Ot 458.9 05/29/2015 SULTANA, ANUP L URBAN REDEVELOPMENT SPECIALIST Ot 593.9 05/29/2015 KIERAN SULTANAIA L URBAN REDEVELOPMENT SPECIALIST Ot 785.1 05/29/2015 KIERAN SULTANAIA L URBAN REDEVELOPMENT SPECIALIST Ot 787.20 06/27/2015 MARCELO ROJAS, JOE Sherman Ot R19.7 08/09/2015 MARCELO ROJAS, JOE Sherman Ot A04.7 08/27/2015 JOE ROBERTSON MD Ot R19.7 08/31/2015 Ot Z12.31 09/25/2015 JOE ROBERTSON MD Ot R19.7 DIARRHEA, UNSPECIFIED 09/25/2015 Ot Z12.31 09/25/2015 KIERAN SULTANAIA L URBAN REDEVELOPMENT SPECIALIST Ot 240.9 09/25/2015 KIERAN SULTANAIA L URBAN REDEVELOPMENT SPECIALIST Ot 266.2 09/25/2015 SULTANA, ANUP L URBAN REDEVELOPMENT SPECIALIST Ot 268.9 09/25/2015 SULTANA, ANUP L URBAN REDEVELOPMENT SPECIALIST Ot 275.2 09/25/2015 KIERAN SULTANAIA L URBAN REDEVELOPMENT SPECIALIST Ot 458.9 09/25/2015 SARAYH SULTANARICIA L URBAN REDEVELOPMENT SPECIALIST Ot 593.9 09/25/2015 SULTANA, ANUP L URBAN REDEVELOPMENT SPECIALIST Ot 785.1 09/25/2015 KIERAN SULTANAIA L URBAN REDEVELOPMENT SPECIALIST Ot 787.20 09/25/2015 JOE ROBERTSON MD Ot R19.7 09/25/2015 JOE ROBERTSON MD Ot R19.7 09/25/2015 MARCELO ROJAS, JEO Sherman Ot A04.7 09/28/2015 OJE ROBERTSON MD Ot R19.7 10/04/2015 JOE ROBERTSON MD Ot R06.02 10/05/2015 Ot V45.82 10/05/2015 Ot V57.89 10/05/2015 Ot R19.7 10/06/2015 JOE ROBERTSON MD Ot E11.9 TYPE 2 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 WITHOUT COMPLIC 10/06/2015 JOE ROBERTSON MD Ot E78.5 HYPERLIPIDEMIA, UNSPECIFIED 10/06/2015 JOE ROBERTSON MD Ot I10 ESSENTIAL (PRIMARY) HYPERTENSION 10/06/2015 JOE ROBERTSON MD, Ot I25.10 ATHSCL HEART DISEASE OF [place] CORONARY 10/06/2015 JOE ROBERTSON MD Ot K21.9 GASTRO-ESOPHAGEAL REFLUX DISEASE WITHOUT 10/06/2015 JOE ROBERTSON MD, Ot K64.9 UNSPECIFIED HEMORRHOIDS 10/06/2015 JOE ROBERTSON MD Ot K92.1 [place] 10/06/2015 JOE ROBERTSON MD Ot R11.0 NAUSEA 10/06/2015 JOE ROBERTSON MD, Ot R19.7 DIARRHEA, UNSPECIFIED 10/06/2015 JOE ROBERTSON MD Ot S30.817A ABRASION OF ANUS, INITIAL ENCOUNTER 10/06/2015 JOE ROBERTSON MD Ot X58.XXXA EXPOSURE TO OTHER SPECIFIED FACTORS, INI 10/06/2015 JOE ROBERTSON MD Ot Z79.4 RESEARCH COMPLIANCE SPECIALIST (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 10/06/2015 JOE ROBERTSON MD Ot Z95.0 PRESENCE OF CARDIAC PACEMAKER 10/06/2015 JOE ROBERTSON MD Ot Z95.5 PRESENCE OF CORONARY ANGIOPLASTY IMPLANT 10/06/2015 JOE ROBERTSON MD Ot E11.9 10/06/2015 JOE ROBERTSON MD, Ot E78.5 10/06/2015 JOE ROBERTSON MD, Ot I10 10/06/2015 JOE ROBERTSON MD, Ot I25.10 10/06/2015 JOE ROBERTSON MD Ot K21.9 10/06/2015 JOE ROBERTSON MD Ot K64.9 10/06/2015 JOE ROBERTSON MD Ot K92.1 10/06/2015 JOE ROBERTSON MD, Ot R11.0 10/06/2015 JOE ROBERTSON MD Ot R19.7 10/06/2015 JOE ROBERTSON MD Ot S30.817A 10/06/2015 JOE ROBERTSON MD Ot X58.XXXA 10/06/2015 JOE ROBERTSON MD Ot Z79.4 10/06/2015 JOE ROBERTSON MD, Ot Z95.0 10/06/2015 MARCELO ROJAS, JOE Sherman Ot Z95.5 10/15/2015 RDANUP Salvatore URBAN REDEVELOPMENT SPECIALIST Ot 240.9 10/15/2015 RDANUP L URBAN REDEVELOPMENT SPECIALIST Ot 266.2 10/15/2015 SULTANAANUP URBAN REDEVELOPMENT SPECIALIST Ot 268.9 10/15/2015 RDANUP L URBAN REDEVELOPMENT SPECIALIST Ot 275.2 10/15/2015 RDANUP Salvatore URBAN REDEVELOPMENT SPECIALIST Ot 458.9 10/15/2015 RDANUP Salvatore URBAN REDEVELOPMENT SPECIALIST Ot 593.9 10/15/2015 RDANUP Salvatore URBAN REDEVELOPMENT SPECIALIST Ot 785.1 10/15/2015 ANUP SULTANA URBAN REDEVELOPMENT SPECIALIST Ot 787.20 10/15/2015 MARCELO ROJAS, JOE Sherman Ot R19.7 10/15/2015 MARCELO ROJAS, JOE Sherman Ot A04.7 10/15/2015 DOT ROJAS, NAFISA P Ot E04.1 10/15/2015 Ot R19.7 10/15/2015 MARCELO ROJAS, JOE Sherman Ot R06.02 10/16/2015 DOT ROJAS, NAFISA P Ot E04.1 10/23/2015 JOE ROBERTSON MD Ot R06.02 10/24/2015 JOE ROBERTSON MD Ot L97.521 10/25/2015 JOE ROBERTSON MD Ot L97.521 10/30/2015 JOE ROBERTSON MD Ot L97.521 10/31/2015 DOT ROJAS, NAFISA P Ot E04.1 11/05/2015 JOE ROBERTSON MD Ot R06.02 SHORTNESS OF BREATH 11/09/2015 JOE ROBERTSON MD Ot 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 11/09/2015 JOE ROBERTSON MD Ot 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 11/13/2015 JOE ROBERTSON MD Ot 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 11/14/2015 JOE ROBERTSON MD Ot 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 11/15/2015 CIERA ROJAS, DESTINEE Soliman Ot I25.10 ATHSCL HEART DISEASE OF [place] CORONARY 11/21/2015 JOE ROBERTSON MD Ot 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 11/21/2015 JOE ROBERTSON MD Ot 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 11/22/2015 JOE ROBERTSON MD Ot 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 11/22/2015 JOE ROBERTSON MD, Ot 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 11/27/2015 JOE ROBERTSON MD Ot 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 12/05/2015 CIERA ROJAS, DESTINEE Soliman Ot I25.10 ATHSCL HEART DISEASE OF [place] CORONARY 12/05/2015 Ot V45.82 PERCUTANEOUS TRANSLUM CORON ANGIOPLASTY 12/05/2015 Ot V57.89 REHABILITATION PROC NEC 12/05/2015 Ot R19.7 DIARRHEA, UNSPECIFIED 12/06/2015 JOE ROBERTSON MD Ot E11.9 TYPE 2 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 WITHOUT COMPLIC 12/06/2015 JOE ROBERTSON MD Ot E86.0 DEHYDRATION 12/06/2015 JOE ROBERTSON MD Ot I25.10 ATHSCL HEART DISEASE OF [place] CORONARY 12/06/2015 JOE ROBERTSON MD Ot I48.91 UNSPECIFIED ATRIAL FIBRILLATION 12/06/2015 JOE ROBERTSON MD Ot I73.9 PERIPHERAL VASCULAR DISEASE, UNSPECIFIED 12/06/2015 JOE ROBERTSON MD Ot N17.9 ACUTE KIDNEY FAILURE, UNSPECIFIED 12/06/2015 JOE ROBERTSON MD Ot N18.3 CHRONIC KIDNEY DISEASE, STAGE 3 (MODERAT 12/06/2015 JOE ROBERTSON MD Ot N39.0 URINARY TRACT INFECTION, SITE NOT SPECIF 12/06/2015 JOE ROBERTSON MD Ot R06.00 DYSPNEA, UNSPECIFIED 12/06/2015 JOE ROBERTSON MD Ot R42 DIZZINESS AND GIDDINESS 12/06/2015 JOE ROBERTSON MD Ot R55 SYNCOPE AND COLLAPSE 12/06/2015 JOE ROBERTSON MD Ot Z95.5 PRESENCE OF CORONARY ANGIOPLASTY IMPLANT 12/06/2015 JOE ROBERTSON MD Ot Z95.820 PERIPHERAL VASCULAR ANGIOPLASTY STATUS W 12/06/2015 JOE ROBERTSON MD Ot E11.9 TYPE 2 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 WITHOUT COMPLIC 12/06/2015 JOE ROBERTSON MD Ot E86.0 DEHYDRATION 12/06/2015 JOE ROBERTSON MD Ot I25.10 ATHSCL HEART DISEASE OF [place] CORONARY 12/06/2015 JOE ROBERTSON MD Ot I48.91 UNSPECIFIED ATRIAL FIBRILLATION 12/06/2015 JOE ROBERTSON MD Ot I73.9 PERIPHERAL VASCULAR DISEASE, UNSPECIFIED 12/06/2015 JOE ROBERTSON MD Ot N17.9 ACUTE KIDNEY FAILURE, UNSPECIFIED 12/06/2015 JOE ROBERTSON MD Ot N18.3 CHRONIC KIDNEY DISEASE, STAGE 3 (MODERAT 12/06/2015 JOE ROBERTSON MD Ot N39.0 URINARY TRACT INFECTION, SITE NOT SPECIF 12/06/2015 JOE ROBERTSON MD Ot R06.00 DYSPNEA, UNSPECIFIED 12/06/2015 JOE ROBERTSON MD Ot R42 DIZZINESS AND GIDDINESS 12/06/2015 JOE ROBERTSON MD, Ot R55 SYNCOPE AND COLLAPSE 12/06/2015 JOE ROBERTSON MD Ot Z95.5 PRESENCE OF CORONARY ANGIOPLASTY IMPLANT 12/06/2015 JOE ROBERTSON MD Ot Z95.820 PERIPHERAL VASCULAR ANGIOPLASTY STATUS W 12/27/2015 CIERA ROJAS, DESTINEE Soliman Ot I25.10 ATHSCL HEART DISEASE OF [place] CORONARY 01/04/2016 DOT ROJAS, NAFISA Tong Ot E04.1 NONTOXIC SINGLE THYROID NODULE 01/04/2016 Ot R19.7 DIARRHEA, UNSPECIFIED 01/04/2016 JOE ROBERTSON MD Ot R06.02 SHORTNESS OF BREATH 01/08/2016 DIMPLE NOVOA MD Ot I65.23 OCCLUSION AND STENOSIS OF [place] 01/08/2016 DIMPLE NOVOA MD, Ot R42 DIZZINESS AND GIDDINESS 01/25/2016 DIMPLE NOVOA MD Ot I65.23 OCCLUSION AND STENOSIS OF [place] 01/25/2016 DIMPLE NOVOA MD, Ot R42 DIZZINESS AND GIDDINESS 02/01/2016 Ot V45.82 PERCUTANEOUS TRANSLUM CORON ANGIOPLASTY 02/01/2016 Ot V57.89 REHABILITATION PROC NEC 02/01/2016 Ot R19.7 DIARRHEA, UNSPECIFIED 02/04/2016 DIMPLE NOVOA MD Ot I65.23 OCCLUSION AND STENOSIS OF [place] 02/04/2016 DIMPLE NOVAO MD, Ot R42 DIZZINESS AND GIDDINESS 02/04/2016 DIMPLE NOVOA MD Ot I65.23 OCCLUSION AND STENOSIS OF [place] 02/04/2016 DIMPLE NOVOA MD, Ot R42 DIZZINESS AND GIDDINESS 02/05/2016 DIMPLE NOVOA MD, Ot I65.23 OCCLUSION AND STENOSIS OF [place] 02/05/2016 DIMPLE NOVOA MD Ot R42 DIZZINESS AND GIDDINESS 02/18/2016 ANGEL MCDOWELL MD Ot E11.40 TYPE 2 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 WITH DIABETIC N 02/18/2016 ANGEL MCDOWELL MD Ot G45.9 TRANSIENT CEREBRAL ISCHEMIC ATTACK, UNSP 02/18/2016 ANGEL MCDOWELL MD Ot Z79.02 [facility] (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 OF ANTITHROMBOTI 02/18/2016 ANGEL MCDOWELL MD Ot Z79.4 RESEARCH COMPLIANCE SPECIALIST (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 02/18/2016 ANGEL MCDOWELL MD Ot Z79.899 OTHER [facility] (CURRENT) DRUG THERAPY 02/21/2016 NAOMY KING URBAN REDEVELOPMENT SPECIALIST Ot Z09 ENCNTR FOR F/U EXAM AFT TRTMT FOR COND O 02/21/2016 NAOMY KINGP Ot Z85.3 PERSONAL HISTORY OF MALIGNANT NEOPLASM O 03/07/2016 DIMPLE NOVOA MD Ot I65.23 OCCLUSION AND STENOSIS OF [place] 03/07/2016 DIMPLE NOVOA MD Ot R42 DIZZINESS AND GIDDINESS 03/08/2016 ANGEL MCDOWELL MD Ot E11.40 TYPE 2 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 WITH DIABETIC N 03/08/2016 ANGEL MCDOWELL MD Ot G45.9 TRANSIENT CEREBRAL ISCHEMIC ATTACK, UNSP 03/08/2016 ANGEL MCDOWELL MD Ot Z79.02 RESEARCH COMPLIANCE SPECIALIST (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 OF ANTITHROMBOTI 03/08/2016 ANGEL MCDOWELL MD Ot Z79.4 [facility] (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 03/08/2016 ANGEL MCDOWELL MD Ot Z79.899 OTHER [facility] (CURRENT) DRUG THERAPY 03/14/2016 NAOMY KING URBAN REDEVELOPMENT SPECIALIST Ot Z09 ENCNTR FOR F/U EXAM AFT TRTMT FOR COND O 03/14/2016 NAOMY KINGP Ot Z85.3 PERSONAL HISTORY OF MALIGNANT NEOPLASM O 03/18/2016 DIMPLE NOVOA MD Ot I65.23 OCCLUSION AND STENOSIS OF [place] 03/18/2016 DIMPLE NOVOA MD Ot R42 DIZZINESS AND GIDDINESS 03/31/2016 NAOMY KING URBAN REDEVELOPMENT SPECIALIST Ot Z09 ENCNTR FOR F/U EXAM AFT TRTMT FOR COND O 03/31/2016 NAOMY KINGP Ot Z85.3 PERSONAL HISTORY OF MALIGNANT NEOPLASM O 06/06/2016 SULTANAKIERAN PHILLIPSODALIS Chase URBAN REDEVELOPMENT SPECIALIST Ot 240.9 GOITER NOS 06/06/2016 SULTANAANUP PHILLIPS URBAN REDEVELOPMENT SPECIALIST Ot 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 06/06/2016 SULTANA, ANUP Salvatore URBAN REDEVELOPMENT SPECIALIST Ot 268.9 VITAMIN D DEFICIENCY NOS 06/06/2016 SULTANA, ANUP Salvatore URBAN REDEVELOPMENT SPECIALIST Ot 275.2 DIS MAGNESIUM METABOLISM 06/06/2016 SULTANAANUP PHILLIPS Salvatore URBAN REDEVELOPMENT SPECIALIST Ot 458.9 HYPOTENSION NOS 06/06/2016 SULTANA, ANUP Salvatore URBAN REDEVELOPMENT SPECIALIST Ot 593.9 RENAL URETERAL DIS NOS 06/06/2016 SULTANAANUP PHILLIPS Salvatore URBAN REDEVELOPMENT SPECIALIST Ot 785.1 PALPITATIONS 06/06/2016 SULTANA, ANUP Salvatore URBAN REDEVELOPMENT SPECIALIST Ot 787.20 DYSPHAGIA, UNSPECIFIED 06/06/2016 MARCELO ROJAS, JOE Sherman Ot R19.7 DIARRHEA, UNSPECIFIED 06/06/2016 JOE ROBERTSON MD Ot A04.7 ENTEROCOLITIS DUE TO CLOSTRIDIUM DIFFICI 06/06/2016 DOT ROJAS, ANFISA Tong Ot E04.1 NONTOXIC SINGLE THYROID NODULE 06/06/2016 Ot R19.7 DIARRHEA, UNSPECIFIED 06/06/2016 MARCELO ROJAS, JOE Sherman Ot R06.02 SHORTNESS OF BREATH 06/06/2016 DIMPLE NOVOA MD Ot I65.23 OCCLUSION AND STENOSIS OF [place] 06/06/2016 DIMPLE NOVOA MD Ot R42 DIZZINESS AND GIDDINESS 06/06/2016 DIMPLE NOVOA MD Ot I65.23 OCCLUSION AND STENOSIS OF [place] 06/06/2016 DIMPLE NOVOA MD Ot R42 DIZZINESS AND GIDDINESS 06/06/2016 NAOMY KINGP Ot Z09 ENCNTR FOR F/U EXAM AFT TRTMT FOR COND O 06/06/2016 NAOMY KING URBAN REDEVELOPMENT SPECIALIST Ot Z85.3 PERSONAL HISTORY OF MALIGNANT NEOPLASM O 06/10/2016 DESTINEE SULTANA DO Ot E04.1 NONTOXIC SINGLE THYROID NODULE 06/11/2016 DESTINEE SULTANA DO Ot E04.1 NONTOXIC SINGLE THYROID NODULE 07/02/2016 DESTINEE SULTANA DO Ot E04.1 NONTOXIC SINGLE THYROID NODULE 07/15/2016 DESTINEE SULTANA DO Ot E04.1 NONTOXIC SINGLE THYROID NODULE 08/12/2016 RD ANUP Salvatore URBAN REDEVELOPMENT SPECIALIST Ot 240.9 GOITER NOS 08/12/2016 RDANUP Salvatore URBAN REDEVELOPMENT SPECIALIST Ot 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7 DIARRHEA, UNSPECIFIED 08/12/2016 MARCELO ROJAS, JOE Sherman Ot A04.7 ENTEROCOLITIS DUE TO CLOSTRIDIUM DIFFICI 08/12/2016 DOT ROJAS, NAFISA Tong Ot E04.1 NONTOXIC SINGLE THYROID NODULE 08/12/2016 Ot R19.7 DIARRHEA, UNSPECIFIED 08/12/2016 MARCELO ROJAS, JOE Sherman Ot R06.02 SHORTNESS OF BREATH 08/12/2016 DIMPLE NOVOA MD Ot I65.23 OCCLUSION AND STENOSIS OF BILATERAL PATTERSON 08/12/2016 DIMPLE NOVOA MD Ot R42 DIZZINESS AND GIDDINESS 08/12/2016 DIMPLE NOVOA MD Ot I65.23 OCCLUSION AND STENOSIS OF BILATERAL PATTERSON 08/12/2016 DIMPLE NOVOA MD Ot R42 DIZZINESS AND GIDDINESS 08/12/2016 NAOMY KING Ot Z09 ENCNTR FOR F/U EXAM AFT TRTMT FOR COND O 08/12/2016 NAOMY KING Ot Z85.3 PERSONAL HISTORY OF MALIGNANT NEOPLASM O 08/12/2016 DESTINEE SULTANA DO Ot E04.1 NONTOXIC SINGLE THYROID NODULE 08/12/2016 KING, HILAH S [employer]RB[employer] REDEVELOPMENT SPECIALIST Ot Z12.31 ENCNTR SCREEN MAMMOGRAM FOR MALIGNANT NE 08/13/2016 RD ANUP Chase [employer]RB[employer] REDEVELOPMENT SPECIALIST Ot 240.9 GOITER NOS 08/13/2016 RD ANUP Chase [employer]RB[employer] REDEVELOPMENT SPECIALIST Ot 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 08/13/2016 RD ANUP Chase URB[employer] REDEVELOPMENT SPECIALIST Ot 268.9 VITAMIN D DEFICIENCY NOS 08/13/2016 RD ANUP Chase [employer]RB[employer] REDEVELOPMENT SPECIALIST Ot 275.2 DIS MAGNESIUM METABOLISM 08/13/2016 ANUP SULTANA [employer]RB[employer] REDEVELOPMENT SPECIALIST Ot 458.9 HYPOTENSION NOS 08/13/2016 ANUP SULTANA URBAN REDEVELOPMENT SPECIALIST Ot 593.9 RENAL URETERAL DIS NOS 08/13/2016 ANUP SULTANA URBAN REDEVELOPMENT SPECIALIST Ot 785.1 PALPITATIONS 08/13/2016 ANUP SULTANA [employer]RB[employer] REDEVELOPMENT SPECIALIST Ot 787.20 DYSPHAGIA, UNSPECIFIED 08/13/2016 MARCELO ROJAS, JOE Sherman Ot R19.7 DIARRHEA, UNSPECIFIED 08/13/2016 MARCELO ROJAS, JOE Sherman Ot A04.7 ENTEROCOLITIS DUE TO CLOSTRIDIUM DIFFICI 08/13/2016 DOT ROJAS, NAFISA Tong Ot E04.1 NONTOXIC SINGLE THYROID NODULE 08/13/2016 Ot R19.7 DIARRHEA, UNSPECIFIED 08/13/2016 MARCELO ROJAS, JOE Sherman Ot R06.02 SHORTNESS OF BREATH 08/13/2016 SOMMER ROJAS, DIMPLE Soliman Ot I65.23 OCCLUSION AND STENOSIS OF BILATERAL PATTERSON 08/13/2016 SOMMER ROJAS, DIMPLE Soliman Ot R42 DIZZINESS AND GIDDINESS 08/13/2016 DIMPLE NOVOA MD Ot I65.23 OCCLUSION AND STENOSIS OF BILATERAL PATTER[place] 08/13/2016 DIMPLE NOVOA MD Ot R42 DIZZINESS AND GIDDINESS 08/13/2016 NAOMY KING Ot Z09 ENCNTR FOR F/U EXAM AFT TRTMT FOR COND O 08/13/2016 NAOMY KINGP Ot Z85.3 PERSONAL HISTORY OF MALIGNANT NEOPLASM O 08/13/2016 NAOMY KING Ot Z12.31 ENCNTR SCREEN MAMMOGRAM FOR MALIGNANT NE 08/13/2016 DESTINEE SULTANA DO Ot E04.1 NONTOXIC SINGLE THYROID NODULE 08/13/2016 KING, HILAH S [employer]EVELOP[employer] SPECIALIST Ot Z12.31 ENCNTR SCREEN MAMMOGRAM FOR MALIGNANT NE 08/13/2016 NAOMY KING [employer]RB[employer] REDEVELOPMENT SPECIALIST Ot Z12.31 ENCNTR SCREEN MAMMOGRAM FOR MALIGNANT NE 08/14/2016 Ot Z12.31 ENCNTR SCREEN MAMMOGRAM FOR MALIGNANT NE 08/14/2016 NAOMY KING [employer] REDEVELOPMENT SPECIALIST Ot Z12.31 ENCNTR SCREEN MAMMOGRAM FOR MALIGNANT NE 09/03/2016 NAOMY KING [employer]RB[employer] REDEVELOPMENT SPECIALIST Ot Z12.31 ENCNTR SCREEN MAMMOGRAM FOR MALIGNANT NE 12/12/2016 Ot Z12.31 ENCNTR SCREEN MAMMOGRAM FOR MALIGNANT NE 12/12/2016 DOT ROJAS, NAFISA Tong Ot E04.1 NONTOXIC SINGLE THYROID NODULE 12/12/2016 Ot R19.7 DIARRHEA, UNSPECIFIED 12/12/2016 JOE ROBERTSON MD Ot R06.02 SHORTNESS OF BREATH 12/12/2016 DIMPLE NOVOA MD Ot I65.23 OCCLUSION AND STENOSIS OF BILATERAL PATTERSON 12/12/2016 DIMPLE NOVOA MD Ot R42 DIZZINESS AND GIDDINESS 12/12/2016 DIMPLE NOVOA MD Ot I65.23 OCCLUSION AND STENOSIS OF BILATERAL PATTERSON 12/12/2016 DIMPLE NOVOA MD Ot R42 DIZZINESS AND GIDDINESS 12/12/2016 NAOMY KING [employer]RB[employer] REDEVELOPMENT SPECIALIST Ot Z09 ENCNTR FOR F/U EXAM AFT TRTMT FOR COND O 12/12/2016 NAOMY KING [employer]RB[employer] REDEVELOPMENT SPECIALIST Ot Z85.3 PERSONAL HISTORY OF MALIGNANT NEOPLASM O 12/12/2016 NAOMY KING [employer]RB[employer] REDEVELOPMENT SPECIALIST Ot Z12.31 ENCNTR SCREEN MAMMOGRAM FOR MALIGNANT NE 12/12/2016 DESTINEE SULTANA DO Ot E04.1 NONTOXIC SINGLE THYROID NODULE 12/17/2016 Ot Z12.31 ENCNTR SCREEN MAMMOGRAM FOR MALIGNANT NE 12/17/2016 DOT ROJAS, NAFISA Tong Ot E04.1 NONTOXIC SINGLE THYROID NODULE 12/17/2016 Ot R19.7 DIARRHEA, UNSPECIFIED 12/17/2016 JOE ROBERTSON MD Ot R06.02 SHORTNESS OF BREATH 12/17/2016 DIMPLE NOVOA MD Ot I65.23 OCCLUSION AND STENOSIS OF BILATERAL [place] 12/17/2016 DIMPLE NOVOA MD Ot R42 DIZZINESS AND GIDDINESS 12/17/2016 DIMPLE NOVOA MD Ot I65.23 OCCLUSION AND STENOSIS OF BILATERAL [place] 12/17/2016 DIMPLE NOVOA MD Ot R42 DIZZINESS AND GIDDINESS 12/17/2016 NAOMY KING Ot Z09 ENCNTR FOR F/U EXAM AFT TRTMT FOR COND O 12/17/2016 NAOMY KING Ot Z85.3 PERSONAL HISTORY OF MALIGNANT NEOPLASM O 12/17/2016 NAOMY KING Ot Z12.31 ENCNTR SCREEN MAMMOGRAM FOR MALIGNANT NE 12/17/2016 DESTINEE SULTANA DO Ot E04.1 NONTOXIC SINGLE THYROID NODULE 12/18/2016 NAOMY KING Ot 174.9 MALIGN NEOPL BREAST NOS 12/18/2016 Ot Z12.31 ENCNTR SCREEN MAMMOGRAM FOR MALIGNANT NE 12/18/2016 DOT ROJAS, NAFISA Tong Ot E04.1 NONTOXIC SINGLE THYROID NODULE 12/18/2016 Ot R19.7 DIARRHEA, UNSPECIFIED 12/18/2016 MARCELO ROJAS, JOE Sherman Ot R06.02 SHORTNESS OF BREATH 12/18/2016 DIMPLE NOVOA MD Ot I65.23 OCCLUSION AND STENOSIS OF BILATERAL [place] 12/18/2016 DIMPLE NOVOA MD Ot R42 DIZZINESS AND GIDDINESS 12/18/2016 DIMPLE NOVOA MD Ot I65.23 OCCLUSION AND STENOSIS OF BILATERAL [place] 12/18/2016 DIMPLE NOVOA MD Ot R42 DIZZINESS AND GIDDINESS 12/18/2016 NAOMY KING Ot Z09 ENCNTR FOR F/U EXAM AFT TRTMT FOR COND O 12/18/2016 NAOMY KING Ot Z85.3 PERSONAL HISTORY OF MALIGNANT NEOPLASM O 12/18/2016 NAOMY KING Ot Z12.31 ENCNTR SCREEN MAMMOGRAM FOR MALIGNANT NE 12/18/2016 DESTINEE SULTANA DO Ot E04.1 NONTOXIC SINGLE THYROID NODULE 12/19/2016 ANUP SULTANA [employer] Ot E04.1 NONTOXIC SINGLE THYROID NODULE 12/25/2016 ANUP SULTANAP Ot E04.1 NONTOXIC SINGLE THYROID NODULE 12/25/2016 NEL OBRIEN, GRECIA Morfin Ot E11.9 TYPE 2 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 WITHOUT COMPLIC 12/25/2016 GRECIA DIXON Ot I10 ESSENTIAL (PRIMARY) HYPERTENSION 12/25/2016 GRECIA DIXON Ot I25.10 ATHSCL HEART DISEASE OF [place] CORONARY 12/25/2016 GRECIA DIXON Ot I65.23 OCCLUSION AND STENOSIS OF BILATERAL [place] Procedures Results Test Result Range Complete urinalysis with reflex to culture - 12/26/16 07:50 Urine color determination YELLOW NRG Urine clarity determination SLIGHTLY CLOUDY NRG Urine pH measurement by test strip 5 5- 9 Specific gravity of urine by test strip 1.020 1.016-1.022 Urine protein assay by test strip, semi-quantitative 2+ NEGATIVE Urine glucose detection by automated test strip 2+ NEGATIVE Erythrocytes detection in urine sediment by light microscopy 2+ NEGATIVE Urine ketones detection by automated test strip NEGATIVE NEGATIVE Urine nitrite detection by test strip POSITIVE NEGATIVE Urine total bilirubin detection by test strip NEGATIVE NEGATIVE Urine urobilinogen measurement by automated test strip (mass/volume) NORMAL NORMAL Urine leukocyte esterase detection by dipstick 2+ NEGATIVE Automated urine sediment erythrocyte count by microscopy (number/high power field) RARE NRG Automated urine sediment leukocyte count by microscopy (number/high power field ) [HPF] NRG Bacteria detection in urine sediment by light microscopy LARGE NRG Squamous epithelial cells detection in urine sediment by light microscopy 5-10 NRG Crystals detection in urine sediment by light microscopy NONE NRG Casts detection in urine sediment by light microscopy NONE NRG Mucus detection in urine sediment by light microscopy NEGATIVE NRG Complete urinalysis with reflex to culture YES NRG Bacterial urine culture - 12/26/16 07:50 Bacterial urine culture [id number] NRG COLONY COUNT >100,000/ML NRG FTX;REPORTABLE SENSITIVITY REPORTED 12/28 07:12 NRG Bacterial susceptibility panel - 12/26/16 07:50 Gentamicin susceptibility test by minimum inhibitory concentration <= NRG Trimethoprim/sulfamethoxazole susceptibility test by minimum inhibitoryconcentration <= NRG Ampicillin susceptibility test by minimum inhibitory concentration R NRG Tobramycin susceptibility test by minimum inhibitory concentration <= NRG Cefazolin susceptibility test by minimum inhibitory concentration <= NRG Ceftriaxone susceptibility test by minimum inhibitory concentration <= NRG Ampicillin/sulbactam susceptibility test by minimum inhibitory concentration 4 NRG Piperacillin/tazobactam susceptibility test by minimum inhibitory concentration <= NRG Ciprofloxacin susceptibility test by minimum inhibitory concentration <= NRG Meropenem susceptibility test by minimum inhibitory concentration <= NRG Nitrofurantoin susceptibility test by minimum inhibitory concentration 32 NRG Aztreonam susceptibility test by minimum inhibitory concentration <= NRG Extended spectrum beta lactamase (ESBL) producing bacteria susceptibility test by minimum inhibitory concentration - NRG Methicillin resistant Staphylococcus aureus (MRSA) screening culture - 08:16 Methicillin resistant Staphylococcus aureus (MRSA) screening culture NEG NR Comprehensive metabolic panel - 12/26/16 08:26 Serum or plasma sodium measurement (moles/volume) 141 mmol/ L 135-145 Serum or plasma potassium measurement (moles/volume) 4.1 mmol/L 3.6-5.0 Serum or plasma chloride measurement (moles/volume) 105 mmol /L 98-107 Carbon dioxide 25 mmol/L 21-32 Serum or plasma anion gap determination (moles/volume) 11 mmol/L 5-14 Serum or plasma urea nitrogen measurement (mass/volume) 23 mg/dL 7-18 Serum or plasma creatinine measurement (mass/volume) 1.47 mg /dL 0.60-1.30 Serum or plasma urea nitrogen/creatinine mass ratio 16 NRG Serum or plasma creatinine measurement with calculation of estimated glomerular filtration rate 34 NRG Serum or plasma glucose measurement (mass/volume) 161 mg/dL 70-105 Serum or plasma calcium measurement (mass/volume) 9.3 mg/dL 8.5-10.1 Serum or plasma total bilirubin measurement (mass/volume) 0.5 mg/dL 0.1-1.0 Serum or plasma alkaline phosphatase measurement (enzymatic activity/volume) 88 U/L 40-136 Serum or plasma aspartate aminotransferase measurement (enzymatic activity/ volume) 19 U/L 5-34 Serum or plasma alanine aminotransferase measurement (enzymatic activity/volume ) 15 U/L 0-55 Serum or plasma protein measurement (mass/volume) 7.7 g/dL 6.4-8.2 Serum or plasma albumin measurement (mass/volume) 3.9 g/dL 3.2-4.5 Lipid 1996 panel - 12/26/16 08:26 Serum or plasma triglyceride measurement (mass/volume) 146 mg/dL <150 Serum or plasma cholesterol measurement (mass/volume) 206 mg /dL < 200 Serum or plasma cholesterol in HDL measurement (mass/volume) 38 mg/dL 40-60 Cholesterol in LDL [mass/volume] in serum or plasma by direct assay 140 mg/dL 1-129 Serum or plasma cholesterol in VLDL measurement (mass/volume) 29 mg/dL 5-40 PT panel in platelet poor plasma by coagulation assay - 12/26/16 08:26 Prothrombin time (PT) in platelet poor plasma by coagulation assay 13.0 s 12.2-14.7 INR in platelet poor plasma or blood by coagulation assay 1.0 0.8-1.4 Activated partial thromboplastin time (aPTT) in platelet poor plasma bycoagulation assay - 12/26/16 08:26 Activated partial thromboplastin time (aPTT) in platelet poor plasma bycoagulation assay 29 s 24-35 Complete blood count (CBC) with automated white blood cell (WBC) differential - 12/26/16 08:26 Blood leukocytes automated count (number/volume) 7.1 10*3/ uL 4.3-11.0 Blood erythrocytes automated count (number/volume) 5.66 10*6 /uL 4.35-5.85 Venous blood hemoglobin measurement (mass/volume) 15.1 g/dL 11.5-16.0 Blood hematocrit (volume fraction) 47 % 35-52 Automated erythrocyte mean corpuscular volume 82 [foz_us] 80-99 Automated erythrocyte mean corpuscular hemoglobin (mass per erythrocyte) 27 pg 25-34 Automated erythrocyte mean corpuscular hemoglobin concentration measurement ( mass/volume) 32 g/dL 32-36 Automated erythrocyte distribution width ratio 17.2 % 10.0-14.5 Automated blood platelet count (count/volume) 191 10*3/uL 130-400 Automated blood platelet mean volume measurement 11.0 [foz_ us] 7.4-10.4 Automated blood neutrophils/100 leukocytes 58 % 42-75 Automated blood lymphocytes/100 leukocytes 29 % 12-44 Blood monocytes/100 leukocytes 10 % 0-12 Automated blood eosinophils/100 leukocytes 3 % 0-10 Automated blood basophils/100 leukocytes 0 % 0-10 Blood neutrophils automated count (number/volume) 4.1 10*3 1.8-7.8 Blood lymphocytes automated count (number/volume) 2.1 10*3 1.0-4.0 Blood monocytes automated count (number/volume) 0.7 10*3 0.0-1.0 Automated eosinophil count 0.2 10*3/uL 0.0-0.3 Automated blood basophil count (count/volume) 0.0 10*3/uL 0.0-0.1 Activated partial thromboplastin time (aPTT) in platelet poor plasma bycoagulation assay - 12/26/16 18:04 Activated partial thromboplastin time (aPTT) in platelet poor plasma bycoagulation assay 72 s 24-35 Activated partial thromboplastin time (aPTT) in platelet poor plasma bycoagulation assay - 12/26/16 19:36 Activated partial thromboplastin time (aPTT) in platelet poor plasma bycoagulation assay 35 s 24-35 Capillary blood glucose measurement by glucometer (mass/volume) - 12/26/16 20: 24 Capillary blood glucose measurement by glucometer (mass/volume) 69 mg/dL 70-110 Capillary blood glucose measurement by glucometer (mass/volume) - 12/26/16 21: 23 Capillary blood glucose measurement by glucometer (mass/volume) 81 mg/dL 70-110 Capillary blood glucose measurement by glucometer (mass/volume) - 12/27/16 02: 25 Capillary blood glucose measurement by glucometer (mass/volume) 190 mg/dL 70-110 Automated blood complete blood count (hemogram) panel - 12/27/16 03:35 Blood leukocytes automated count (number/volume) 8.3 10*3/ uL 4.3-11.0 Blood erythrocytes automated count (number/volume) 4.64 10*6 /uL 4.35-5.85 Venous blood hemoglobin measurement (mass/volume) 12.5 g/dL 11.5-16.0 Blood hematocrit (volume fraction) 39 % 35-52 Automated erythrocyte mean corpuscular volume 83 [foz_us] 80-99 Automated erythrocyte mean corpuscular hemoglobin (mass per erythrocyte) 27 pg 25-34 Automated erythrocyte mean corpuscular hemoglobin concentration measurement ( mass/volume) 33 g/dL 32-36 Automated erythrocyte distribution width ratio 16.8 % 10.0-14.5 Automated blood platelet count (count/volume) 185 10*3/uL 130-400 Automated blood platelet mean volume measurement 10.7 [foz_ us] 7.4-10.4 Whole blood basic metabolic panel - 12/27/16 03:35 Serum or plasma sodium measurement (moles/volume) 140 mmol/ L 135-145 Serum or plasma potassium measurement (moles/volume) 4.1 mmol/L 3.6-5.0 Serum or plasma chloride measurement (moles/volume) 107 mmol /L 98-107 Carbon dioxide 22 mmol/L 21-32 Serum or plasma anion gap determination (moles/volume) 11 mmol/L 5-14 Serum or plasma urea nitrogen measurement (mass/volume) 23 mg/dL 7-18 Serum or plasma creatinine measurement (mass/volume) 1.29 mg /dL 0.60-1.30 Serum or plasma urea nitrogen/creatinine mass ratio 18 NRG Serum or plasma creatinine measurement with calculation of estimated glomerular filtration rate 40 NRG Serum or plasma glucose measurement (mass/volume) 190 mg/dL 70-105 Serum or plasma calcium measurement (mass/volume) 8.5 mg/dL 8.5-10.1 Capillary blood glucose measurement by glucometer (mass/volume) - 12/27/16 10: 35 Capillary blood glucose measurement by glucometer (mass/volume) 163 mg/dL 70-110 Encounters ACCT No. Visit Date/Time Discharge Status Pt. Type Provider Facility Loc./Unit Complaint [id number] 12/26/2016 07:30:00 2016 11:45:00 DIS Outpatient SOMMER ROJAS, DIMPLE Soliman [facility] CATH ABN STRESS TEST,CP, HTN,HLP,DM [id number] 12/05/2015 14:52:00 2015 17:54:00 DIS Inpatient JOE ROBERTSON MD [facility] 4TH JARA,VERTIGO,URINARY TRACT INFECTION [id number] 11/22/2015 08:50:00 2015 12:00:00 DIS Outpatient JOE ROBERTSON MD [facility] WOUNDCARE [id number] 10/05/2015 10:00:00 2015 09:44:00 DIS Inpatient JOE ROBERTSON MD [facility] 4TH NAUSEA,VOMITING,DIAHERRA,BLOODY STOOL [id number] 05/28/2015 21:30:00 2014 23:59:59 CLS Outpatient JOE ROBERTSON MD [facility] LAB DIARRHEA [id number] 05/10/2015 20:05:00 2014 21:32:00 DIS Emergency DEINS HAIDER DO K [facility] ER L SIDE FACIAL DROOPING [id number] 05/10/2015 12:00:00 2014 13:31:00 DIS Emergency ANGEL MCDOWELL MD [facility] ER FACIAL DROOPING/LEFT HAND NUMB [id number] 2015 13:56:00 2014 23:59:59 CLS Outpatient ANUP SULTANA [employer] [facility] RAD DIFFICULTY SWALLOWING THYROIDMEGALLY [id number] 02/19/2015 12:28:00 2014 23:59:59 CLS Outpatient ANTHONY GARZA [facility] ONC [id number] 12/25/2014 16:05:00 2014 14:46:00 DIS Inpatient SOMMER ROJAS, DIMPLE Soliman [facility] CSD [id number] 08/31/2014 09:11:00 2014 23:59:59 CLS Outpatient NAOMY KING [employer] [facility] RAD [id number] 08/30/2014 13:10:00 2014 23:59:59 CLS Outpatient MARCELO ROJAS, JOE Sherman [facility] LAB [id number] 08/21/2014 12:52:00 2014 23:59:59 CLS Outpatient NAOMY KING [employer] [facility] ONC [id number] 08/08/2014 12:54:00 2014 23:59:59 CLS Outpatient ANTHONY GARZA [facility] RAD [id number] 01/30/2014 13:02:00 2013 23:59:59 CLS Outpatient [id number] 11/09/2013 13:56:00 2013 23:59:59 CLS Outpatient NAOMY KING [employer] [facility] ONC [id number] 10/15/2013 18:23:00 2013 20:38:00 DIS Emergency [id number] 07/25/2013 12:48:00 2013 23:59:59 CLS Outpatient NAOMY KING [employer] [facility] RAD BREAST CA, ABN SONO [id number] 05/12/2013 14:47:00 2012 23:59:59 CLS Outpatient [id number] 04/28/2013 15:16:00 2012 23:59:59 CLS Outpatient [id number] 12/10/2012 10:57:00 2012 00:01:00 DIS Outpatient [id number] 01/17/2013 12:08:00 2012 23:59:59 CLS Outpatient [id number] 12/27/2012 12:00:00 2012 23:59:59 CLS Outpatient [id number] 12/24/2016 10:48:00 ACT Outpatient GRECIA CR [facility] CARD CAD I25.10 [id number] 12/17/2016 12:08:00 ACT Outpatient ANUP SULTANA [employer] [facility] RAD THYROID NODULE [id number] 08/12/2016 12:12:00 ACT Outpatient NAOMY KING [employer] [facility] RAD SCREENING [id number] 06/06/2016 12:58:00 ACT Outpatient DESTINEE SULTANA DO [facility] RAD THYROID NODULE [id number] 02/20/2016 12:58:00 ACT Outpatient NAOMY KING [employer] [facility] ONC [id number] 02/01/2016 08:32:00 ACT Outpatient DIMPLE NOVOA MD [facility] RAD CAROTID STENOSIS,DIZZINESS [id number] 01/04/2016 11:01:00 ACT Outpatient DIMPLE NOVOA MD [facility] RAD CAROTID STENOSIS [id number] 11/14/2015 07:23:00 ACT Outpatient DESTINEE VANG MD [facility] CARD [id number] 10/23/2015 08:46:00 ACT Outpatient JOE ROBERTSON MD [facility] RAD [id number] 10/03/2015 10:31:00 ACT Outpatient JOE ROBERTSON MD [facility] RAD SOB [id number] 09/26/2015 00:00:00 Document Registration [id number] 09/25/2015 12:38:00 ACT Outpatient NAFISA CHRIS MD [facility] RAD MULTI SHEALARISSA PINTO [id number] 08/10/2015 13:28:00 Document Registration [id number] 07/16/2015 16:14:00 ACT Outpatient JOE ROBERTSON MD [facility] LAB CDIFF, DIARHHEA [id number] 06/27/2015 06:32:00 ACT Outpatient JOE ROBERTSON MD [facility] LAB DIARRHEA [id number] 12/25/2014 17:28:00 Document Registration
== END 2016-12-27 11:45 | disposition home or self-care (01) ==
LOC: CATH 07:30 → ICU 11:25 → CATH 12-27 11:45
PROVIDERS: ATTEND Internal Medicine Cardiovascular Disease
DX: T82.855A Stenosis of coronary artery stent, initial encounter (principal); I25.10 Atherosclerotic heart disease of native coronary artery without angina pectoris; R94.39 Abnormal result of other cardiovascular function study; I25.84 Coronary atherosclerosis due to calcified coronary lesion; I10 Essential (primary) hypertension; I49.5 Sick sinus syndrome; E78.5 Hyperlipidemia, unspecified; E11.9 Type 2 diabetes mellitus without complications; Z79.4 Long term (current) use of insulin; Z79.899 Other long term (current) drug therapy; Z95.0 Presence of cardiac pacemaker
CPT/HCPCS: 36415; 71010; 80048; 80053; 80061; 81000; 82962; 85025; 85027; 85347; 85610; 85730; 87077; 87081; 87088; 87186; 92920; 93005; 93458

== ENCOUNTER → 2017-01-08 | Outpatient (CLI) | payer MEDICARE ==
[~2017-01-08] MED LIST changes: +CIPR-225 PO; +METO-270 PO
== END ==
DX: E04.1 Nontoxic single thyroid nodule (principal)

== ENCOUNTER → 2017-01-27 | Outpatient (CLI) | payer MEDICARE | LOC: CARD 10:41 | PROVIDERS: ATTEND Internal Medicine | DX: E04.1 Nontoxic single thyroid nodule (principal) ==

== ENCOUNTER → 2017-02-11 | Outpatient (CLI) | payer MEDICARE ==
[~2017-02-11] VITALS: Ht 167.6 cm; Wt 92.1 kg
[~2017-02-11] MED LIST changes: +LIDOCAINE 1% INJ 20 ML (XYLOCAINE) VIAL INJ ONE
[2017-02-11 07:48] VITALS: BP 124/69
[2017-02-11 08:48] VITALS: BP 132/80
--- NOTE | 2017-02-11 14:54 | Diagnostic Imaging Report ---
EXAMINATION: US-guided fine needle biopsy-thyroid. INDICATION: Right thyroid nodule. CONSENT: Informed consent was obtained from the patient. The risks, benefits, potential complications and alternatives were reviewed and all questions answered to the patient's satisfaction. FINDINGS: Right thyroid nodule. PROCEDURE: After sterile preparation and draping, 1% lidocaine was utilized for local anesthesia. A 25-gauge hypodermic needle is introduced into the right thyroid nodule under live ultrasound guidance. After confirming adequate positioning with saved ultrasound images, multiple passes of fine needle aspiration is performed and repeated 4 times. The patient tolerated the procedure well with no immediate complications. IMPRESSION: Successful US-guided fine needle aspiration biopsy of right thyroid nodule. Dictated by: Dictated on workstation # [id number]
== END ==
LOC: RAD 07:44
PROVIDERS: ATTEND Internal Medicine
DX: E04.1 Nontoxic single thyroid nodule (principal)
CPT/HCPCS: 76942; 88305

== ENCOUNTER → 2017-03-12 | Outpatient (CLI) | payer MEDICARE ==
[~2017-03-12] MED LIST changes: -LIDOCAINE 1% INJ 20 ML (XYLOCAINE) VIAL INJ ONE
[2017-03-12 10:15] LABS: BASOPHILS % (AUTO) 0 % (0-10); EOSINOPHILS # (AUTO) 0.2 10^3/uL (0.0-0.3); EOSINOPHILS % (AUTO) 3 % (0-10); LYMPHOCYTES # (AUTO) 2.1 X 10^3 (1.0-4.0); LYMPHOCYTES % (AUTO) 28 % (12-44); MEAN CORPUSCULAR HEMOGLOBIN 27 PG (25-34); MEAN CORPUSCULAR HGB CONC 33 G/DL (32-36); MEAN CORPUSCULAR VOLUME 83 FL (80-99); MEAN PLATELET VOLUME 9.9 FL (7.4-10.4); MONOCYTES # (AUTO) 0.7 X 10^3 (0.0-1.0); MONOCYTES % (AUTO) 9 % (0-12); NEUTROPHILS # (AUTO) 4.5 X 10^3 (1.8-7.8); NEUTROPHILS % (AUTO) 60 % (42-75); PLATELET COUNT 260 10^3/uL (130-400); RED BLOOD COUNT 5.36 10^6/uL (4.35-5.85); RED CELL DISTRIBUTION WIDTH 14.9 % (10.0-14.5); WHITE BLOOD COUNT 7.5 10^3/uL (4.3-11.0)
[2017-03-12 10:47] LABS: ALBUMIN 3.9 GM/DL (3.2-4.5); BILIRUBIN,TOTAL 0.6 MG/DL (0.1-1.0); CALCIUM 9.8 MG/DL (8.5-10.1); CREATININE SERUM 1.43 MG/DL (0.60-1.30); POTASSIUM 4.6 MMOL/L (3.6-5.0); TOTAL PROTEIN 7.3 GM/DL (6.4-8.2)
== END ==
LOC: ONC 09:52
PROVIDERS: ATTEND Internal Medicine Hematology & Oncology
DX: Z08 Encounter for follow-up examination after completed treatment for malignant neoplasm (principal); Z85.3 Personal history of malignant neoplasm of breast; I13.0 Hypertensive heart and chronic kidney disease with heart failure and stage 1 through stage 4 chronic kidney disease, or unspecified chronic kidney disease; I50.9 Heart failure, unspecified; N18.3 Chronic kidney disease, stage 3 (moderate); E11.22 Type 2 diabetes mellitus with diabetic chronic kidney disease; E11.43 Type 2 diabetes mellitus with diabetic autonomic (poly)neuropathy; E78.5 Hyperlipidemia, unspecified; K21.9 Gastro-esophageal reflux disease without esophagitis; E04.1 Nontoxic single thyroid nodule; I25.10 Atherosclerotic heart disease of native coronary artery without angina pectoris; Z95.5 Presence of coronary angioplasty implant and graft; Z79.02 Long term (current) use of antithrombotics/antiplatelets; Z79.4 Long term (current) use of insulin; Z79.899 Other long term (current) drug therapy
CPT/HCPCS: 36415; 80053; 85025; 99213

== ENCOUNTER 2017-08-09 14:44 | Emergency (ER) | payer MEDICARE ==
[~2017-08-09] VITALS: Ht 167.6 cm; Wt 93.0 kg
[~2017-08-09 14:44] MED LIST changes: -METO-270 PO; +METO-387 PO
--- OUTSIDE RECORDS SUMMARY | 2017-08-09 14:53 | XMS REPORT | Continuity of Care Document ---
Author Author [facility] [address] Organization [facility] [address] Address Unknown Phone Unavailable Allergies Active Description Code Type Severity Reaction Onset Reported/Identified Relationship to Patient Clinical Status Yes sulfamethoxazole [id number] Drug Allergy Moderate N/A 10/05/2015 Yes tramadol [id number] Drug Allergy Moderate N/A 10/05/2015 Yes trimethoprim [id number] Drug Allergy Moderate N/A 10/05/2015 Yes codeine [id number] Drug Allergy Unknown CAN TAKE MORPHI 10/05/2015 Yes hydrocodone [id number] Drug Allergy Unknown N/A 10/05/2015 Yes Penicillins [id number] Drug Allergy Unknown N/A 10/05/2015 Yes amiodarone [id number] Drug Allergy Unknown NAUSEA, dizzine 12/05/2015 Yes amiodarone [id number] Drug Allergy Mild NAUSEA, dizzine 02/01/2016 Medications There is no data. 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 06/18/1199 JOE ROBERTSON MD Ot 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 08/08/2014 NAOMY KING CLINICAL DOCUMENTATION NURSE Ot 174.9 08/29/2014 ANTHONY GARZA Ot 174.9 08/29/2014 ANTHONY GARZA Ot V76.11 08/31/2014 ANTHONY GARZA N Ot 174.9 08/31/2014 ANTHONY GARZA Ot V76.11 08/31/2014 NAOMY KING CLINICAL DOCUMENTATION NURSE Ot 174.9 08/31/2014 NAOMY KING CLINICAL DOCUMENTATION NURSE Ot 250.00 08/31/2014 NAOMY KING CLINICAL DOCUMENTATION NURSE Ot 585.3 08/31/2014 NAOMY KING CLINICAL DOCUMENTATION NURSE Ot V15.3 08/31/2014 NAOMY KING CLINICAL DOCUMENTATION NURSE Ot V58.67 08/31/2014 NAOMY KING CLINICAL DOCUMENTATION NURSE Ot V58.69 08/31/2014 ANTHONY GARZA N Ot 174.9 08/31/2014 ANTHONY GARZA N Ot V76.11 08/31/2014 NAOMY KING S CLINICAL DOCUMENTATION NURSE Ot 174.9 08/31/2014 KINGNAOMY Diaz S CLINICAL DOCUMENTATION NURSE Ot 250.00 08/31/2014 KINGNAOMY Diaz S CLINICAL DOCUMENTATION NURSE Ot 585.3 08/31/2014 KINGNAOMY Diaz S CLINICAL DOCUMENTATION NURSE Ot V15.3 08/31/2014 KINGNAOMY Diaz S CLINICAL DOCUMENTATION NURSE Ot V58.67 08/31/2014 KINGNAOMY Diaz S CLINICAL DOCUMENTATION NURSE Ot V58.69 09/13/2014 NAOMY KING S CLINICAL DOCUMENTATION NURSE Ot 174.9 09/13/2014 NAOMY KING S CLINICAL DOCUMENTATION NURSE Ot 250.00 09/13/2014 NAOMY KING S CLINICAL DOCUMENTATION NURSE Ot 585.3 09/13/2014 NAOMY KING S CLINICAL DOCUMENTATION NURSE Ot V15.3 09/13/2014 NAOMY KING S CLINICAL DOCUMENTATION NURSE Ot V58.67 09/13/2014 NAOMY KING S CLINICAL DOCUMENTATION NURSE Ot V58.69 12/25/2014 ANTHONY GARZA N Ot 174.9 12/25/2014 ANTHONY GARZA N Ot V76.11 12/25/2014 NAOMY KING S CLINICAL DOCUMENTATION NURSE Ot 174.9 12/25/2014 KINGNAOMY Diaz S CLINICAL DOCUMENTATION NURSE Ot 250.00 12/25/2014 KINGNAOMY Diaz S CLINICAL DOCUMENTATION NURSE Ot 585.3 12/25/2014 KINGNAOMY Diaz S CLINICAL DOCUMENTATION NURSE Ot V15.3 12/25/2014 KINGNAOMY Diaz S CLINICAL DOCUMENTATION NURSE Ot V58.67 12/25/2014 KINGNAOMY S CLINICAL DOCUMENTATION NURSE Ot V58.69 12/25/2014 KINGNAOMY Diaz S CLINICAL DOCUMENTATION NURSE Ot 174.9 12/25/2014 KINGNAOMY Diaz S CLINICAL DOCUMENTATION NURSE Ot V49.81 12/25/2014 KINGNAOMY S CLINICAL DOCUMENTATION NURSE Ot V58.69 12/25/2014 MARCELO ROJAS, JOE Sherman Ot 599.0 12/25/2014 Ot V45.82 12/25/2014 Ot V57.89 12/26/2014 SOMMER ROJAS, BASHAR J Ot 250.60 12/26/2014 SOMMER ROJAS, BASHAR J Ot 272.4 12/26/2014 SOMMER ROJAS, MARLOHAR J Ot 357.2 12/26/2014 SOMMER ROJAS, BASHAR J Ot 403.90 12/26/2014 SOMMER ROJAS, BASHAR J Ot 414.01 12/26/2014 SOMMER ROJAS, BASHAR J Ot 427.31 12/26/2014 SOMMER ROJAS, BASHAR J Ot 433.10 12/26/2014 SOMMER ROJAS, BASHAR J Ot 443.9 12/26/2014 SOMMER ROJAS, BASHAR J Ot 530.81 12/26/2014 SOMMER ROJAS, BASHAR J Ot 585.3 12/26/2014 SOMMER ROJAS, BASHAR J Ot 786.50 12/26/2014 SOMMER ROJAS, DIMPLE J Ot V10.3 12/26/2014 SOMMER ROJAS, DIMPLE J Ot V45.01 12/26/2014 SOMMER ROJAS, MARLOHAR J Ot V45.82 12/26/2014 SOMMER ROJAS, BASHAR J Ot V58.67 12/26/2014 SOMMER ROJAS, BASHAR J Ot 250.60 12/26/2014 SOMMER ROJAS, BASHAR J Ot 272.4 12/26/2014 SOMMER ROJAS, MARLOHAR J Ot 357.2 12/26/2014 SOMMER ROJAS, MARLOHAR J Ot 403.90 12/26/2014 SOMMER ROJAS, MARLOHAR J Ot 414.01 12/26/2014 SOMMER ROJAS, MARLOHAR J Ot 427.31 12/26/2014 SOMMER ROJAS, MARLOHAR J Ot 433.10 12/26/2014 SOMMER ROJAS, MARLOHAR J Ot 443.9 12/26/2014 SOMMER ROJAS, BASHAR J Ot 530.81 12/26/2014 SOMMER ROJAS, BASHAR J Ot 585.3 12/26/2014 SOMMER ROJAS, BASHAR J Ot 786.50 12/26/2014 SOMMER ROJAS, BASHAR J Ot V10.3 12/26/2014 SOMMER ROJAS, BASHAR J Ot V45.01 12/26/2014 SOMMER ROJAS, BASHAR J Ot V45.82 12/26/2014 SOMMER ROJAS, BASHAR J Ot V58.67 03/06/2015 ANTHONY GARZA Ot 174.9 03/06/2015 ALYCE GARZAAN N Ot 250.00 03/06/2015 GREG, BOBAN N Ot 585.3 03/06/2015 GREG, BOBAN N Ot V15.3 03/06/2015 GREG, ANTHONY N Ot V49.81 03/06/2015 GREG, BOBBJORN N Ot V58.67 03/06/2015 GREG, BOBAN N Ot V58.69 03/16/2015 GREG, BOBAN N Ot 174.9 03/16/2015 GREG, BOBBJORN N Ot 250.00 03/16/2015 GREG, ANTHONY N Ot 585.3 03/16/2015 GREG, BOBAN N Ot V15.3 03/16/2015 GREG, ANTHONY N Ot V49.81 03/16/2015 GREG, ANTHONY N Ot V58.67 03/16/2015 GREG, ANTHONY N Ot V58.69 03/27/2015 GREG, BOBAN N Ot 174.9 03/27/2015 GREG, ANTHONY N Ot 250.00 03/27/2015 GREG, ANTHONY N Ot 585.3 03/27/2015 GREG, ANTHONY N Ot V15.3 03/27/2015 GREG, ANTHONY N Ot V49.81 03/27/2015 GREG, BOBBJORN N Ot V58.67 03/27/2015 GREG, BOBBJORN N Ot V58.69 2015 GREG, BOBAN N Ot 174.9 2015 GREG, BOBBJORN N Ot V76.11 2015 NAOMY KING CLINICAL DOCUMENTATION NURSE Ot 174.9 2015 KINGNAOMY Diaz S CLINICAL DOCUMENTATION NURSE Ot 250.00 2015 KINGNAOMY Diaz S CLINICAL DOCUMENTATION NURSE Ot 585.3 2015 NAOMY KING S CLINICAL DOCUMENTATION NURSE Ot V15.3 2015 NAOMY KING S CLINICAL DOCUMENTATION NURSE Ot V58.67 2015 KINGNAOMY Diaz S CLINICAL DOCUMENTATION NURSE Ot V58.69 2015 KINGNAOMY Diaz S CLINICAL DOCUMENTATION NURSE Ot 174.9 2015 NAOMY KING S CLINICAL DOCUMENTATION NURSE Ot V49.81 2015 NAOMY KING S CLINICAL DOCUMENTATION NURSE Ot V58.69 2015 MARCELO ROJAS, JOE Sherman Ot 599.0 2015 GREGANTHONY SAMSON N Ot 174.9 2015 GREGANTHONY SAMSON N Ot 250.00 2015 GREGANTHONY SAMSON N Ot 585.3 2015 GREGANTHONY SAMSON N Ot V15.3 2015 GREGANTHONY SAMSON N Ot V49.81 2015 GREGANTHONY SAMSON N Ot V58.67 2015 GREGANTHONY SAMSON N Ot V58.69 04/18/2015 RD ANUP L CLINICAL DOCUMENTATION NURSE Ot 240.9 04/18/2015 SULTANA, ANUP L CLINICAL DOCUMENTATION NURSE Ot 266.2 04/18/2015 SULTANA, ANUP L CLINICAL DOCUMENTATION NURSE Ot 268.9 04/18/2015 SULTANA, ANUP L CLINICAL DOCUMENTATION NURSE Ot 275.2 04/18/2015 SULTANA, ANUP L CLINICAL DOCUMENTATION NURSE Ot 458.9 04/18/2015 SULTANA, ANUP L CLINICAL DOCUMENTATION NURSE Ot 593.9 04/18/2015 SULTANA, ANUP L CLINICAL DOCUMENTATION NURSE Ot 785.1 04/18/2015 SULTANA, ANUP L CLINICAL DOCUMENTATION NURSE Ot 787.20 05/10/2015 ANGEL MCDOWELL MD Ot E11.40 TYPE 2 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 WITH DIABETIC N 05/10/2015 ANGEL MCDOWELL MD Ot G45.9 TRANSIENT CEREBRAL ISCHEMIC ATTACK, UNSP 05/10/2015 ANGEL MCDOWELL MD Ot 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 TEACHER (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 OF ANTITHROMBOTI 05/10/2015 ANGEL MCDOWELL MD Ot Z79.4 DETENTION (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 05/10/2015 ANGEL MCDOWELL MD Ot Z79.899 OTHER DETENTION (CURRENT) DRUG THERAPY 05/10/2015 VITALY CANDELARIO DENIS K Ot E11.40 TYPE 2 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 WITH DIABETIC N 05/10/2015 VITALY CANDELARIO DENIS K Ot G45.9 TRANSIENT CEREBRAL ISCHEMIC ATTACK, UNSP 05/10/2015 VITALY CANDELARIO DENIS K Ot Z79.02 DETENTION (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 OF ANTITHROMBOTI 05/10/2015 VITALY DO DENIS K Ot Z79.4 DETENTION (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 05/10/2015 DENIS HAIDER DO Ot Z79.82 DETENTION (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 OF ASPIRIN 05/29/2015 ANUP SULTANA L CLINICAL DOCUMENTATION NURSE Ot 240.9 05/29/2015 SARAHY SULTANARICIA L CLINICAL DOCUMENTATION NURSE Ot 266.2 05/29/2015 SULTANAKIERAN PHILLIPSIA L CLINICAL DOCUMENTATION NURSE Ot 268.9 05/29/2015 SULTANAKIERAN PHILLIPSIA L CLINICAL DOCUMENTATION NURSE Ot 275.2 05/29/2015 SULTANAKIERAN PHILLIPSIA L CLINICAL DOCUMENTATION NURSE Ot 458.9 05/29/2015 SULTANA, ANUP L CLINICAL DOCUMENTATION NURSE Ot 593.9 05/29/2015 KIERAN SULTANAIA L CLINICAL DOCUMENTATION NURSE Ot 785.1 05/29/2015 ANUP SULTANA L CLINICAL DOCUMENTATION NURSE Ot 787.20 06/27/2015 MARCELO ROJAS, JOE Sherman Ot R19.7 08/09/2015 JOE ROBERTSON MD Ot A04.7 08/27/2015 JOE ROBERTSON MD Ot R19.7 08/31/2015 Ot Z12.31 09/25/2015 JOE ROBERTSON MD Ot R19.7 DIARRHEA, UNSPECIFIED 09/25/2015 Ot Z12.31 09/25/2015 KIERAN SULTANAIA L CLINICAL DOCUMENTATION NURSE Ot 240.9 09/25/2015 SARAHY SULTANARICIA L CLINICAL DOCUMENTATION NURSE Ot 266.2 09/25/2015 SULTANA, ANUP L CLINICAL DOCUMENTATION NURSE Ot 268.9 09/25/2015 KIERAN SULTANAIA L CLINICAL DOCUMENTATION NURSE Ot 275.2 09/25/2015 KIERAN SULTANAIA L CLINICAL DOCUMENTATION NURSE Ot 458.9 09/25/2015 SULTANA, ANUP L CLINICAL DOCUMENTATION NURSE Ot 593.9 09/25/2015 SULTANA, ANUP L CLINICAL DOCUMENTATION NURSE Ot 785.1 09/25/2015 SARAHY SULTANARICIA L CLINICAL DOCUMENTATION NURSE Ot 787.20 09/25/2015 JOE ROBERTSON MD Ot R19.7 09/25/2015 JOE ROBERTSON MD Ot R19.7 09/25/2015 JOE ROBERTSON MD Ot A04.7 09/28/2015 JOE ROBERTSON MD Ot R19.7 10/04/2015 JOE ROBERTSON MD Ot R06.02 10/05/2015 Ot V45.82 10/05/2015 Ot V57.89 10/05/2015 Ot R19.7 10/06/2015 JOE ROBERTSON MD Ot E11.9 TYPE 2 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 WITHOUT COMPLIC 10/06/2015 JOE ROBERTSON MD Ot E78.5 HYPERLIPIDEMIA, UNSPECIFIED 10/06/2015 JOE ROBERTSON MD Ot I10 ESSENTIAL (PRIMARY) HYPERTENSION 10/06/2015 JOE ROBERTSON MD Ot I25.10 ATHSCL HEART DISEASE OF [place] CORONARY 10/06/2015 JOE ROBERTSON MD Ot K21.9 GASTRO-ESOPHAGEAL REFLUX DISEASE WITHOUT 10/06/2015 JOE ROBERTSON MD Ot K64.9 UNSPECIFIED HEMORRHOIDS 10/06/2015 JOE ROBERTSON MD, Ot K92.1 MELENA 10/06/2015 JOE ROBERTSON MD Ot R11.0 NAUSEA 10/06/2015 JOE ROBERTSON MD, Ot R19.7 DIARRHEA, UNSPECIFIED 10/06/2015 JOE ROBERTSON MD, Ot S30.817A ABRASION OF ANUS, INITIAL ENCOUNTER 10/06/2015 JOE ROBERTSON MD Ot X58.XXXA EXPOSURE TO OTHER SPECIFIED FACTORS, INI 10/06/2015 JOE ROBERTSON MD Ot Z79.4 DETENTION (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 10/06/2015 JOE ROBERTSON MD Ot Z95.0 PRESENCE OF CARDIAC PACEMAKER 10/06/2015 JOE ROBERTSON MD Ot Z95.5 PRESENCE OF CORONARY ANGIOPLASTY IMPLANT 10/06/2015 JOE ROBERTSON MD Ot E11.9 10/06/2015 JOE ROBERTSON MD Ot E78.5 10/06/2015 JOE ROBERTSON MD Ot I10 10/06/2015 JOE ROBERTSON MD, Ot I25.10 10/06/2015 JOE ROBERTSON MD Ot K21.9 10/06/2015 JOE ROBERTSON MD Ot K64.9 10/06/2015 JOE ROBERTSON MD Ot K92.1 10/06/2015 JOE ROBERTSON MD Ot R11.0 10/06/2015 JOE ROBERTSON MD, Ot R19.7 10/06/2015 JOE ROBERTSON MD Ot S30.817A 10/06/2015 JOE ROBERTSON MD Ot X58.XXXA 10/06/2015 JOE ROBERTSON MD Ot Z79.4 10/06/2015 JOE ROBERTSON MD, Ot95.0 10/06/2015 JOE ROBERTSON MD Ot Z95.5 10/15/2015 RDANUP Salvatore CLINICAL DOCUMENTATION NURSE Ot 240.9 10/15/2015 RD ANUP L CLINICAL DOCUMENTATION NURSE Ot 266.2 10/15/2015 RDANUP CLINICAL DOCUMENTATION NURSE Ot 268.9 10/15/2015 RD ANUP L CLINICAL DOCUMENTATION NURSE Ot 275.2 10/15/2015 RD ANUP L CLINICAL DOCUMENTATION NURSE Ot 458.9 10/15/2015 RD ANUP Salvatore CLINICAL DOCUMENTATION NURSE Ot 593.9 10/15/2015 RD ANUP L CLINICAL DOCUMENTATION NURSE Ot 785.1 10/15/2015 ANUP SULTANA CLINICAL DOCUMENTATION NURSE Ot 787.20 10/15/2015 MARCELO ROJAS, JOE Sherman Ot R19.7 10/15/2015 MARCELO ROJAS, JOE Sherman Ot A04.7 10/15/2015 DOT ROJAS, NAFISA P Ot E04.1 10/15/2015 Ot R19.7 10/15/2015 JOE ROBERTSON MD Ot R06.02 10/16/2015 DOT ROJAS, NAFISA P [...] Soliman Ot I25.10 ATHSCL HEART DISEASE OF [place] CORONARY 11/21/2015 JOE ROBERTSON MD Ot 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 11/21/2015 JOE ROBERTSON MD Ot 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 11/22/2015 JOE ROBERTSON MD, Ot 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 11/22/2015 JOE ROBERTSON MD, Ot 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 11/27/2015 JOE ROBERTSON MD, Ot 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 12/05/2015 CIERA ROJAS, DESTINEE Soliman Ot I25.10 ATHSCL HEART DISEASE OF [place] CORONARY 12/05/2015 Ot V45.82 PERCUTANEOUS TRANSLUM CORON ANGIOPLASTY 12/05/2015 Ot V57.89 REHABILITATION PROC NEC 12/05/2015 Ot R19.7 DIARRHEA, UNSPECIFIED 12/06/2015 JOE ROBERTSON MD Ot E11.9 TYPE 2 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 WITHOUT COMPLIC 12/06/2015 JOE ROBERTSON MD Ot E86.0 DEHYDRATION 12/06/2015 JOE ROBERTSON MD Ot I25.10 ATHSCL HEART DISEASE OF [place] CORONARY 12/06/2015 JOE ROBERTSON MD Ot I48.91 [...] MD Ot I25.10 ATHSCL HEART DISEASE OF [place] CORONARY 12/06/2015 JOE ROBERTSON MD Ot I48.91 [...] Ot R06.00 DYSPNEA, UNSPECIFIED 12/06/2015 JOE ROBERTSON MD, Ot R42 DIZZINESS AND GIDDINESS 12/06/2015 JOE ROBERTSON MD, Ot R55 SYNCOPE AND COLLAPSE 12/06/2015 JOE ROBERTSON MD Ot Z95.5 PRESENCE OF CORONARY ANGIOPLASTY IMPLANT 12/06/2015 JOE ROBERTSON MD Ot Z95.820 PERIPHERAL VASCULAR ANGIOPLASTY STATUS W 12/27/2015 CIERA ROJAS, DESTINEE Soliman Ot I25.10 ATHSCL HEART DISEASE OF [place] CORONARY 01/04/2016 DOT ROJAS, NAFISA Tong Ot E04.1 NONTOXIC SINGLE THYROID NODULE 01/04/2016 Ot R19.7 DIARRHEA, UNSPECIFIED 01/04/2016 JOE ROBERTSON MD Ot R06.02 SHORTNESS OF BREATH 01/08/2016 DIMPLE NOVOA MD Ot I65.23 OCCLUSION AND STENOSIS OF BILATERAL PATTER[place] 01/08/2016 DIMPLE NVOOA MD Ot R42 DIZZINESS AND GIDDINESS 01/25/2016 DIMPLE [...] NOVOA MD, Ot R42 DIZZINESS AND GIDDINESS 02/04/2016 DIMPLE NOVOA MD Ot I65.23 OCCLUSION AND STENOSIS OF BILATERAL [place] 02/04/2016 DIMPLE NOVOA MD, Ot R42 DIZZINESS AND GIDDINESS 02/05/2016 DIMPLE NOVOA MD Ot I65.23 OCCLUSION AND STENOSIS OF BILATERAL [place] 02/05/2016 DIMPLE NOVOA MD Ot R42 DIZZINESS AND GIDDINESS 02/18/2016 ANGEL MCDOWELL MD Ot E11.40 TYPE 2 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 WITH DIABETIC N 02/18/2016 ANGEL MCDOWELL MD Ot G45.9 TRANSIENT CEREBRAL ISCHEMIC ATTACK, UNSP 02/18/2016 ANGEL MCDOWELL MD Ot 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 TEACHER (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 OF ANTITHROMBOTI 02/18/2016 ANGEL MCDOWELL MD Ot 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 02/18/2016 ANGEL MCDOWELL MD Ot Z79.899 OTHER DETENTION (CURRENT) DRUG THERAPY 02/21/2016 NAOMY KINGP Ot Z09 ENCNTR FOR F/U EXAM AFT TRTMT FOR COND O 02/21/2016 NAOMY KINGP Ot Z85.3 PERSONAL HISTORY OF MALIGNANT NEOPLASM O 03/07/2016 DIMPLE NOVOA MD Ot I65.23 OCCLUSION AND STENOSIS OF BILATERAL [place] 03/07/2016 DIMPLE NOVOA MD, Ot R42 DIZZINESS AND GIDDINESS 03/08/2016 ANGEL MCDOWELL MD Ot E11.40 TYPE 2 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 WITH DIABETIC N 03/08/2016 ANGEL MCDOWELL MD Ot G45.9 TRANSIENT CEREBRAL ISCHEMIC ATTACK, UNSP 03/08/2016 ANGEL MCDOWELL MD Ot Z79.02 DETENTION (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 OF ANTITHROMBOTI 03/08/2016 ANGEL MCDOWELL MD Ot 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 03/08/2016 ANGEL MCDOWELL MD Ot Z79.899 OTHER HISTOLOGY TEACHER (CURRENT) DRUG THERAPY 03/14/2016 NAOMY KINGP Ot Z09 ENCNTR FOR F/U EXAM AFT TRTMT FOR COND O 03/14/2016 NAOMY KING Ot Z85.3 PERSONAL HISTORY OF MALIGNANT NEOPLASM O 03/18/2016 DIMPLE NOVOA MD Ot I65.23 OCCLUSION AND STENOSIS OF BILATERAL [place] 03/18/2016 DIMPLE NOVOA MD Ot R42 DIZZINESS AND GIDDINESS 03/31/2016 NAOMY KINGP Ot Z09 ENCNTR FOR F/U EXAM AFT TRTMT FOR COND O 03/31/2016 NAOMY KINGP Ot Z85.3 PERSONAL HISTORY OF MALIGNANT NEOPLASM O 06/06/2016 RD ANUP Chase CLINICAL DOCUMENTATION NURSE Ot 240.9 GOITER NOS 06/06/2016 SULTANAANUP PHILLIPS CLINICAL DOCUMENTATION NURSE Ot 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 06/06/2016 SULTANA ANUP Salvatore CLINICAL DOCUMENTATION NURSE Ot 268.9 VITAMIN D DEFICIENCY NOS 06/06/2016 SULTANAANUP PHILLIPS L CLINICAL DOCUMENTATION NURSE Ot 275.2 DIS MAGNESIUM METABOLISM 06/06/2016 SULTANAANUP Salvatore CLINICAL DOCUMENTATION NURSE Ot 458.9 HYPOTENSION NOS 06/06/2016 SULTANA ANUP Salvatore CLINICAL DOCUMENTATION NURSE Ot 593.9 RENAL URETERAL DIS NOS 06/06/2016 SULTANAANUP PHILLIPS Salvatore CLINICAL DOCUMENTATION NURSE Ot 785.1 PALPITATIONS 06/06/2016 SULTANAANUP PHILLIPS Salvatore CLINICAL DOCUMENTATION NURSE Ot 787.20 DYSPHAGIA, UNSPECIFIED 06/06/2016 MARCELO ROJAS, JOE Sherman Ot R19.7 DIARRHEA, UNSPECIFIED 06/06/2016 MARCELO ROJAS, JOE Sherman Ot A04.7 ENTEROCOLITIS DUE TO CLOSTRIDIUM DIFFICI 06/06/2016 DOT ROJAS, NAFISA Tong Ot E04.1 NONTOXIC SINGLE THYROID NODULE 06/06/2016 Ot R19.7 DIARRHEA, UNSPECIFIED 06/06/2016 MARCELO ROJAS, JOE Sherman Ot R06.02 SHORTNESS OF BREATH 06/06/2016 SOMMER ROJAS, DIMPLE Soliman Ot I65.23 OCCLUSION AND STENOSIS OF BILATERAL [place] 06/06/2016 DIMPLE NOVOA MD Ot R42 DIZZINESS AND GIDDINESS 06/06/2016 DIMPLE NOVOA MD Ot I65.23 OCCLUSION AND STENOSIS OF BILATERAL [place] 06/06/2016 DIMPLE NOVOA MD Ot R42 DIZZINESS AND GIDDINESS 06/06/2016 NAOMY KING CLINICAL DOCUMENTATION NURSE Ot Z09 ENCNTR FOR F/U EXAM AFT TRTMT FOR COND O 06/06/2016 NAOMY KINGP Ot Z85.3 PERSONAL HISTORY OF MALIGNANT NEOPLASM O 06/10/2016 DESTINEE SULTANA DO Ot E04.1 NONTOXIC SINGLE THYROID NODULE 06/11/2016 DESTINEE SULTANA DO Ot E04.1 NONTOXIC SINGLE THYROID NODULE 07/02/2016 DESTINEE SULTANA DO Ot E04.1 NONTOXIC SINGLE THYROID NODULE 07/15/2016 DESTINEE SULTANA DO Ot E04.1 NONTOXIC SINGLE THYROID NODULE 08/12/2016 SULTANAANUP PHILLIPS Salvatore CLINICAL DOCUMENTATION NURSE Ot 240.9 GOITER NOS 08/12/2016 RD ANUP Salvatore CLINICAL DOCUMENTATION NURSE Ot 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 08/12/2016 KIERAN SULTANAIA Salvatore CLINICAL DOCUMENTATION NURSE Ot 268.9 VITAMIN D DEFICIENCY NOS 08/12/2016 RD ANUP Salvatore CLINICAL DOCUMENTATION NURSE Ot 275.2 DIS MAGNESIUM METABOLISM 08/12/2016 ANUP SULTANA CLINICAL DOCUMENTATION NURSE Ot 458.9 HYPOTENSION NOS 08/12/2016 ANUP SULTANA CLINICAL DOCUMENTATION NURSE Ot 593.9 RENAL URETERAL DIS NOS 08/12/2016 KIERAN SULTANAIA Salvatore CLINICAL DOCUMENTATION NURSE Ot 785.1 PALPITATIONS 08/12/2016 KIERAN SULTANAIA Salvatore CLINICAL DOCUMENTATION NURSE Ot 787.20 DYSPHAGIA, UNSPECIFIED 08/12/2016 MARCELO ROJAS, JOE Sherman Ot R19.7 DIARRHEA, UNSPECIFIED 08/12/2016 MARCELO ROJAS, JOE Sherman Ot A04.7 ENTEROCOLITIS DUE TO CLOSTRIDIUM DIFFICI 08/12/2016 DOT ROJAS, NAFISA Tong Ot E04.1 NONTOXIC SINGLE THYROID NODULE 08/12/2016 Ot R19.7 DIARRHEA, UNSPECIFIED 08/12/2016 MARCELO ROJAS, JOE Sherman Ot R06.02 SHORTNESS OF BREATH 08/12/2016 SOMMER ROJAS, DIMPLE Soliman Ot I65.23 OCCLUSION AND STENOSIS OF BILATERAL [place] 08/12/2016 DIMPLE NOVOA MD Ot R42 DIZZINESS AND GIDDINESS 08/12/2016 DIMPLE NOVOA MD Ot I65.23 OCCLUSION AND STENOSIS OF BILATERAL [place] 08/12/2016 DIMPLE NOVOA MD, Ot R42 DIZZINESS AND GIDDINESS 08/12/2016 NAOMY KING Ot Z09 ENCNTR FOR F/U EXAM AFT TRTMT FOR COND O 08/12/2016 NAOMY KING Ot Z85.3 PERSONAL HISTORY OF MALIGNANT NEOPLASM O 08/12/2016 DESTINEE SULTANA DO Ot E04.1 NONTOXIC SINGLE THYROID NODULE 08/12/2016 NAOMY KING Ot Z12.31 ENCNTR SCREEN MAMMOGRAM FOR MALIGNANT NE 08/13/2016 RD ANUP Chase CLINICAL DOCUMENTATION NURSE Ot 240.9 GOITER NOS 08/13/2016 RD ANUP Chase CLINICAL DOCUMENTATION NURSE Ot 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 08/13/2016 RD ANUP Salvatore CLINICAL DOCUMENTATION NURSE Ot 268.9 VITAMIN D DEFICIENCY NOS 08/13/2016 RD ANUP Chase CLINICAL DOCUMENTATION NURSE Ot 275.2 DIS MAGNESIUM METABOLISM 08/13/2016 ANUP SULTANA CLINICAL DOCUMENTATION NURSE Ot 458.9 HYPOTENSION NOS 08/13/2016 RD ANUP Salvatore CLINICAL DOCUMENTATION NURSE Ot 593.9 RENAL URETERAL DIS NOS 08/13/2016 ANUP SULTANA CLINICAL DOCUMENTATION NURSE Ot 785.1 PALPITATIONS 08/13/2016 ANUP SULTANA CLINICAL DOCUMENTATION NURSE Ot 787.20 DYSPHAGIA, UNSPECIFIED 08/13/2016 MARCELO ROJAS, [...] MD Ot R42 DIZZINESS AND GIDDINESS 08/13/2016 DIMPLE NOVOA MD Ot I65.23 OCCLUSION AND STENOSIS OF BILATERAL PATTER[place] 08/13/2016 DIMPLE NOVOA MD Ot R42 DIZZINESS AND GIDDINESS 08/13/2016 NAOMY KING Ot Z09 ENCNTR FOR F/U EXAM AFT TRTMT FOR COND O 08/13/2016 NAOMY KING Ot Z85.3 PERSONAL HISTORY OF MALIGNANT NEOPLASM O 08/13/2016 NAOMY KING Ot Z12.31 ENCNTR SCREEN MAMMOGRAM FOR MALIGNANT NE 08/13/2016 DESTINEE SULTANA DO Ot E04.1 NONTOXIC SINGLE THYROID NODULE 08/13/2016 KING, HILAH S CLINICAL DOCUMENTATION NURSE Ot Z12.31 ENCNTR SCREEN MAMMOGRAM FOR MALIGNANT NE 08/13/2016 NAOMY KING CLINICAL DOCUMENTATION NURSE Ot Z12.31 ENCNTR SCREEN MAMMOGRAM FOR MALIGNANT NE 08/14/2016 Ot Z12.31 ENCNTR SCREEN MAMMOGRAM FOR MALIGNANT NE 08/14/2016 NAOMY KING CLINICAL DOCUMENTATION NURSE Ot Z12.31 ENCNTR SCREEN MAMMOGRAM FOR MALIGNANT NE 09/03/2016 NAOMY KING CLINICAL DOCUMENTATION NURSE Ot Z12.31 ENCNTR SCREEN MAMMOGRAM FOR MALIGNANT [...] R42 DIZZINESS AND GIDDINESS 12/12/2016 NAOMY KING CLINICAL DOCUMENTATION NURSE Ot Z09 ENCNTR FOR F/U EXAM AFT TRTMT FOR COND O 12/12/2016 NAOMY KING CLINICAL DOCUMENTATION NURSE Ot Z85.3 PERSONAL HISTORY OF MALIGNANT NEOPLASM O 12/12/2016 NAOMY KING CLINICAL DOCUMENTATION NURSE Ot Z12.31 ENCNTR SCREEN MAMMOGRAM FOR MALIGNANT [...] NONTOXIC SINGLE THYROID NODULE 12/19/2016 ANUP SULTANA CLINICAL DOCUMENTATION NURSE Ot E04.1 NONTOXIC SINGLE THYROID NODULE 12/25/2016 ANUP SULTANA CLINICAL DOCUMENTATION NURSE Ot E04.1 NONTOXIC SINGLE THYROID NODULE 12/25/2016 NEL OBRIEN, GRECIA Morfin Ot E11.9 TYPE 2 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 WITHOUT COMPLIC 12/25/2016 GRECIA DIXON Ot I10 ESSENTIAL (PRIMARY) HYPERTENSION 12/25/2016 GRECIA DXION Ot I25.10 ATHSCL HEART DISEASE OF [place] CORONARY 12/25/2016 GRECIA DIXON Ot I65.23 OCCLUSION AND STENOSIS OF BILATERAL [place] 12/27/2016 DIMPLE NOVOA MD Ot E11.9 TYPE 2 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 WITHOUT COMPLIC 12/27/2016 DIMPLE NOVOA MD Ot E78.5 HYPERLIPIDEMIA, UNSPECIFIED 12/27/2016 DIMPLE NOVOA MD, Ot I10 ESSENTIAL (PRIMARY) HYPERTENSION 12/27/2016 DIMPLE NOVOA MD, Ot I25.10 ATHSCL HEART DISEASE OF [place] CORONARY 12/27/2016 DIMPLE NOVOA MD, Ot 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 CALCIFIE 12/27/2016 DIMPLE NOVOA MD, Ot I49.5 SICK SINUS SYNDROME 12/27/2016 DIMPLE NOVOA MD Ot R94.39 ABNORMAL RESULT OF OTHER CARDIOVASCULAR 12/27/2016 DIMPLE NOVOA MD, Ot T82.855A STENOSIS OF CORONARY ARTERY STENT, INITI 12/27/2016 DIMPLE NOVOA MD, Ot Z79.4 DETENTION (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 12/27/2016 DIMPLE NOVOA MD, Ot Z79.899 OTHER HISTOLOGY TEACHER (CURRENT) DRUG THERAPY 12/27/2016 DIMPLE NOVOA MD, Ot Z95.0 PRESENCE OF CARDIAC PACEMAKER 01/06/2017 GRECIA DIXON Ot E11.9 TYPE 2 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 WITHOUT COMPLIC 01/06/2017 GRECIA DIXON Ot I10 ESSENTIAL (PRIMARY) HYPERTENSION 01/06/2017 GRECIA DIXON Ot I25.10 ATHSCL HEART DISEASE OF [place] CORONARY 01/06/2017 GRECIA DIXON Ot I65.23 OCCLUSION AND STENOSIS OF BILATERAL [place] 01/06/2017 ANUP SULTANA CLINICAL DOCUMENTATION NURSE Ot E04.1 NONTOXIC SINGLE THYROID NODULE 01/06/2017 NAOMY KING CLINICAL DOCUMENTATION NURSE Ot 174.9 MALIGN NEOPL BREAST NOS 01/06/2017 ANUP SULTANA CLINICAL DOCUMENTATION NURSE Ot E04.1 NONTOXIC SINGLE THYROID NODULE 01/07/2017 DIMPLE NOVOA MD Ot E11.9 TYPE 2 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 WITHOUT COMPLIC 01/07/2017 DIMPLE NOVOA MD, Ot E78.5 HYPERLIPIDEMIA, UNSPECIFIED 01/07/2017 DIMPLE NOVOA MD Ot I10 ESSENTIAL (PRIMARY) HYPERTENSION 01/07/2017 DIMPLE NOVOA MD Ot I25.10 ATHSCL HEART DISEASE OF [place] CORONARY 01/07/2017 DIMPLE NOVOA MD Ot 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 CALCIFIE 01/07/2017 DIMPLE NOVOA MD Ot I49.5 SICK SINUS SYNDROME 01/07/2017 DIMPLE NOVOA MD Ot R94.39 ABNORMAL RESULT OF OTHER CARDIOVASCULAR 01/07/2017 DIMPLE NOVOA MD, Ot T82.855A STENOSIS OF CORONARY ARTERY STENT, INITI 01/07/2017 DIMPLE NOVOA MD, Ot 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 01/07/2017 DIMPLE NOVOA MD, Ot Z79.899 OTHER HISTOLOGY TEACHER (CURRENT) DRUG THERAPY 01/07/2017 DIMPLE NOVOA MD, Ot Z95.0 PRESENCE OF CARDIAC PACEMAKER 01/13/2017 GRECIA DIXON Ot E11.9 TYPE 2 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 WITHOUT COMPLIC 01/13/2017 GRECIA DIXON Ot I10 ESSENTIAL (PRIMARY) HYPERTENSION 01/13/2017 GRECIA DIXON Ot I25.10 ATHSCL HEART DISEASE OF [place] CORONARY 01/13/2017 GRECIA DIXON Ot I65.23 OCCLUSION AND STENOSIS OF BILATERAL [place] 01/14/2017 GRECIA DIXON Ot E11.9 TYPE 2 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 WITHOUT COMPLIC 01/14/2017 GRECIA DIXON Ot I10 ESSENTIAL (PRIMARY) HYPERTENSION 01/14/2017 GRECIA DIXON Ot I25.10 ATHSCL HEART DISEASE OF [place] CORONARY 01/14/2017 GRECIA DIXON Ot I65.23 OCCLUSION AND STENOSIS OF BILATERAL [place] 01/17/2017 DIMPLE NOVOA MD Ot E11.9 TYPE 2 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 WITHOUT COMPLIC 01/17/2017 SOMMER MD, BASHAR J Ot E78.5 HYPERLIPIDEMIA, UNSPECIFIED 01/17/2017 DIMPLE NOVOA MD Ot I10 ESSENTIAL (PRIMARY) HYPERTENSION 01/17/2017 DIMPLE NOVOA MD Ot I25.10 ATHSCL HEART DISEASE OF [place] CORONARY 01/17/2017 DIMPLE NOVOA MD Ot 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 CALCIFIE 01/17/2017 DIMPLE NOVOA MD Ot I49.5 SICK SINUS SYNDROME 01/17/2017 DIMPLE NOVOA MD Ot R94.39 ABNORMAL RESULT OF OTHER CARDIOVASCULAR 01/17/2017 DIMPLE NOVOA MD Ot T82.855A STENOSIS OF CORONARY ARTERY STENT, INITI 01/17/2017 DIMPLE NOVOA MD Ot 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 01/17/2017 DIMPLE NOVOA MD Ot Z79.899 OTHER DETENTION (CURRENT) DRUG THERAPY 01/17/2017 DIMPLE NOVOA MD Ot Z95.0 PRESENCE OF CARDIAC PACEMAKER 01/23/2017 ANUP SULTANA Ot E04.1 NONTOXIC SINGLE THYROID NODULE 01/27/2017 JOE ROBERTSON MD Ot E04.1 NONTOXIC SINGLE THYROID NODULE 01/28/2017 DIMPLE NOVOA MD Ot E11.9 TYPE 2 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 WITHOUT COMPLIC 01/28/2017 DIMPLE NOVOA MD Ot E78.5 HYPERLIPIDEMIA, UNSPECIFIED 01/28/2017 DIMPLE NOVOA MD Ot I10 ESSENTIAL (PRIMARY) HYPERTENSION 01/28/2017 DIMPLE NOVOA MD Ot I25.10 ATHSCL HEART DISEASE OF [place] CORONARY 01/28/2017 DIMPLE NOVOA MD Ot 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 CALCIFIE 01/28/2017 DIMPLE NOVOA MD Ot I49.5 SICK SINUS SYNDROME 01/28/2017 DIMPLE NOVOA MD Ot R94.39 ABNORMAL RESULT OF OTHER CARDIOVASCULAR 01/28/2017 DIMPLE NOVOA MD Ot T82.855A STENOSIS OF CORONARY ARTERY STENT, INITI 01/28/2017 DMIPLE NOVOA MD Ot 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 01/28/2017 DIMPLE NOVOA MD Ot Z79.899 OTHER HISTOLOGY TEACHER (CURRENT) DRUG THERAPY 01/28/2017 DIMPLE NOVOA MD, Ot Z95.0 PRESENCE OF CARDIAC PACEMAKER 01/29/2017 GRECIA DIXON Ot E11.9 TYPE 2 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 WITHOUT COMPLIC 01/29/2017 GRECIA DIXON Ot I10 ESSENTIAL (PRIMARY) HYPERTENSION 01/29/2017 GRECIA DIXON Ot I25.10 ATHSCL HEART DISEASE OF [place] CORONARY 01/29/2017 GRECIA DIXON Ot I65.23 OCCLUSION AND STENOSIS OF BILATERAL PATTERSON 03/13/2017 DIMPLE NOVOA MD, Ot E11.9 TYPE 2 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 WITHOUT COMPLIC 03/13/2017 DIMPLE NOVOA MD, Ot E78.5 HYPERLIPIDEMIA, UNSPECIFIED 03/13/2017 DIMPLE NOVOA MD, Ot I10 ESSENTIAL (PRIMARY) HYPERTENSION 03/13/2017 DIMPLE NOVOA MD, Ot I25.10 ATHSCL HEART DISEASE OF [place] CORONARY 03/13/2017 DIMPLE NOVOA MD, Ot 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 CALCIFIE 03/13/2017 DIMPLE NOVOA MD, Ot I49.5 SICK SINUS SYNDROME 03/13/2017 DIMPLE NOVOA MD, Ot R94.39 ABNORMAL RESULT OF OTHER CARDIOVASCULAR 03/13/2017 DIMPLE NOVOA MD, Ot T82.855A STENOSIS OF CORONARY ARTERY STENT, INITI 03/13/2017 DIMPLE NOVOA MD, Ot 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 03/13/2017 DIMPLE NOVOA MD, Ot Z79.899 OTHER HISTOLOGY TEACHER (CURRENT) DRUG THERAPY 03/13/2017 DIMPLE NOVOA MD, Ot Z95.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 BACK FACER 03/13/2017 ANTHONY GARZA Ot E11.43 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 03/13/2017 ANTHONY GARZA Ot E78.5 HYPERLIPIDEMIA, UNSPECIFIED 03/13/2017 ANTHONY GARZA Ot 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 KDNY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 03/13/2017 ANTHONY GARZA Ot I25.10 ATHSCL HEART DISEASE OF [place] CORONARY 03/13/2017 ANTHONY GARZA Ot I50.9 HEART FAILURE, UNSPECIFIED 03/13/2017 ANTHONY GARZA Ot K21.9 GASTRO-ESOPHAGEAL REFLUX DISEASE WITHOUT 03/13/2017 ANTHONY GARZA Ot N18.3 CHRONIC KIDNEY DISEASE, STAGE 3 (MODERAT 03/13/2017 ANTHONY GARZA Ot Z08 ENCNTR FOR FOLLOW-UP EXAM AFTER TRTMT FO 03/13/2017 ANTHONY GARZA Ot 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 TEACHER (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 OF ANTITHROMBOTI 03/13/2017 ANTHONY GARZA Ot 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 03/13/2017 ANTHONY GARZA Ot Z79.899 OTHER DETENTION (CURRENT) DRUG THERAPY 03/13/2017 ANTHONY GARZA Ot Z85.3 PERSONAL HISTORY OF MALIGNANT NEOPLASM O 03/13/2017 ANTHONY GARZA Ot Z95.5 PRESENCE OF CORONARY ANGIOPLASTY IMPLANT 03/14/2017 DIMPLE NOVOA MD Ot E11.9 TYPE 2 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 WITHOUT COMPLIC 03/14/2017 DIMPLE NOVOA MD, Ot E78.5 HYPERLIPIDEMIA, UNSPECIFIED 03/14/2017 DIMPLE NOVOA MD Ot I10 ESSENTIAL (PRIMARY) HYPERTENSION 03/14/2017 DIMPLE NOVOA MD, Ot I25.10 ATHSCL HEART DISEASE OF [place] CORONARY 03/14/2017 DIMPLE NOVOA MD, Ot 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 CALCIFIE 03/14/2017 DIMPLE NOVOA MD, Ot I49.5 SICK SINUS SYNDROME 03/14/2017 DIMPLE NOVOA MD Ot R94.39 ABNORMAL RESULT OF OTHER CARDIOVASCULAR 03/14/2017 DIMPLE NOVOA MD, Ot T82.855A STENOSIS OF CORONARY ARTERY STENT, INITI 03/14/2017 DIMPLE NOVOA MD, Ot 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 03/14/2017 DIMPLE NOVOA MD, Ot Z79.899 OTHER HISTOLOGY TEACHER (CURRENT) DRUG THERAPY 03/14/2017 DIMPLE NOVOA MD, Ot Z95.0 PRESENCE OF CARDIAC PACEMAKER 03/16/2017 MARCELO ROJAS, JOE Sherman Ot E04.1 NONTOXIC SINGLE THYROID NODULE 04/03/2017 GREG, BOBAN N Ot E04.1 NONTOXIC SINGLE THYROID NODULE 04/03/2017 GREGANTHONY Ot E11.22 TYPE 2 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 BACK FACER 04/03/2017 GREGANTHONY Ot E11.43 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 04/03/2017 GREGANTHONY Ot E78.5 HYPERLIPIDEMIA, UNSPECIFIED 04/03/2017 GREGANTHONY Ot 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 KDNY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 04/03/2017 ANTHONY GARZA Ot I25.10 ATHSCL HEART DISEASE OF [place] CORONARY 04/03/2017 GREGANTHONY Ot I50.9 HEART FAILURE, UNSPECIFIED 04/03/2017 ANTHONY GARZA Ot K21.9 GASTRO-ESOPHAGEAL REFLUX DISEASE WITHOUT 04/03/2017 ANTHONY GARZA Ot N18.3 CHRONIC KIDNEY DISEASE, STAGE 3 (MODERAT 04/03/2017 ANTHONY GARZA Ot Z08 ENCNTR FOR FOLLOW-UP EXAM AFTER TRTMT FO 04/03/2017 ANTHONY GARZA Ot 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 TEACHER (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 OF ANTITHROMBOTI 04/03/2017 ANTHONY GARZA Ot Z79.4 DETENTION (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 04/03/2017 ANTHONY GARZA Ot Z79.899 OTHER DETENTION (CURRENT) DRUG THERAPY 04/03/2017 ANTHONY GARZA Ot Z85.3 PERSONAL HISTORY OF MALIGNANT NEOPLASM O 04/03/2017 ANTHONY GARZA Ot Z95.5 PRESENCE OF CORONARY ANGIOPLASTY IMPLANT 04/03/2017 MARCELO ROJAS, JOE Sherman Ot E04.1 NONTOXIC SINGLE THYROID NODULE 04/23/2017 ANTHONY GARZA Ot E04.1 NONTOXIC SINGLE THYROID NODULE 04/23/2017 ANTHONY GARZA Ot E11.22 TYPE 2 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 BACK FACER 04/23/2017 ANTHONY GARZA Ot E11.43 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 04/23/2017 ANTHONY GARZA Ot E78.5 HYPERLIPIDEMIA, UNSPECIFIED 04/23/2017 ANTHONY GARZA Ot 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 KDNY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 04/23/2017 ANTHONY GARZA Ot I25.10 ATHSCL HEART DISEASE OF [place] CORONARY 04/23/2017 ANTHONY GARZA Ot I50.9 HEART FAILURE, UNSPECIFIED 04/23/2017 ANTHONY GARZA Ot K21.9 GASTRO-ESOPHAGEAL REFLUX DISEASE WITHOUT 04/23/2017 ANTHONY GARZA Ot N18.3 CHRONIC KIDNEY DISEASE, STAGE 3 (MODERAT 04/23/2017 ANTHONY GARZA Ot Z08 ENCNTR FOR FOLLOW-UP EXAM AFTER TRTMT FO 04/23/2017 ANTHONY GARZA Ot 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 TEACHER (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 OF ANTITHROMBOTI 04/23/2017 ANTHONY GARZA Ot Z79.4 DETENTION (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 04/23/2017 ANTHONY GARZA Ot Z79.899 OTHER DETENTION (CURRENT) DRUG THERAPY 04/23/2017 ANTHONY GARZA Ot Z85.3 PERSONAL HISTORY OF MALIGNANT NEOPLASM O 04/23/2017 ANTHONY GARZA Ot Z95.5 PRESENCE OF CORONARY ANGIOPLASTY IMPLANT 08/06/2017 ANTHONY GARZA Ot Z12.31 ENCNTR SCREEN MAMMOGRAM FOR MALIGNANT NE 08/06/2017 MARCELO ROJAS, JOE Sherman Ot E04.1 NONTOXIC SINGLE THYROID NODULE 08/06/2017 ANTHONY GARZA Ot E04.1 NONTOXIC SINGLE THYROID NODULE 08/06/2017 ANTHONY GARZA Ot E11.22 TYPE 2 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 BACK FACER 08/06/2017 ANTHONY GARZA Ot E11.43 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 08/06/2017 ANTHONY GARZA Ot E78.5 HYPERLIPIDEMIA, UNSPECIFIED 08/06/2017 ANTHONY GARZA Ot 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 KDNY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 08/06/2017 ANTHONY GARZA Ot I25.10 ATHSCL HEART DISEASE OF [place] CORONARY 08/06/2017 ANTHONY GARZA Ot I50.9 HEART FAILURE, UNSPECIFIED 08/06/2017 ANTHONY GARZA Ot K21.9 GASTRO-ESOPHAGEAL REFLUX DISEASE WITHOUT 08/06/2017 ANTHONY GARZA Ot N18.3 CHRONIC KIDNEY DISEASE, STAGE 3 (MODERAT 08/06/2017 ANTHONY GARZA Ot Z08 ENCNTR FOR FOLLOW-UP EXAM AFTER TRTMT FO 08/06/2017 ANTHONY GARZA Ot 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 TEACHER (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 OF ANTITHROMBOTI 08/06/2017 ANTHONY GRAZA Ot Z79.4 DETENTION (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 08/06/2017 ANTHONY GARZA Ot Z79.899 OTHER DETENTION (CURRENT) DRUG THERAPY 08/06/2017 ANTHONY GARZA Ot Z85.3 PERSONAL HISTORY OF MALIGNANT NEOPLASM O 08/06/2017 ANTHONY GARZA Ot Z95.5 PRESENCE OF CORONARY ANGIOPLASTY IMPLANT 08/06/2017 ANTHONY GARZA Ot Z12.31 ENCNTR SCREEN MAMMOGRAM FOR MALIGNANT NE Procedures There is no data. Results Test Result Range Complete urinalysis with reflex to culture - 12/26/16 07:50 Urine color determination YELLOW NRG Urine clarity determination SLIGHTLY CLOUDY NRG Urine pH measurement by test strip 5 5-9 Specific gravity of urine by test strip 1.020 1.016- 1.022 Urine protein assay by test strip, semi-quantitative [...] culture - 12/26/16 07:50 Bacterial urine culture [id number] NRG COLONY COUNT >100,000/ML NRG FTX;REPORTABLE SENSITIVITY REPORTED 12/28 07:12 NRG Bacterial susceptibility panel - 12/26/16 07:50 Gentamicin susceptibility test by minimum inhibitory concentration < = NRG Trimethoprim/sulfamethoxazole susceptibility test by minimum inhibitoryconcentration <= NRG Ampicillin susceptibility test by minimum inhibitory concentration R NRG Tobramycin susceptibility test by minimum inhibitory concentration < = NRG Cefazolin susceptibility test by minimum inhibitory concentration < = NRG Ceftriaxone susceptibility test by minimum inhibitory concentration <= NRG Ampicillin/sulbactam susceptibility test by minimum inhibitory concentration 4 NRG Piperacillin/tazobactam susceptibility test by minimum inhibitory concentration <= NRG Ciprofloxacin susceptibility test by minimum inhibitory concentration <= NRG Meropenem susceptibility test by minimum inhibitory concentration < = NRG Nitrofurantoin susceptibility test by minimum inhibitory concentration 32 NRG Aztreonam susceptibility test by minimum inhibitory concentration < = NRG Extended spectrum beta lactamase (ESBL) producing bacteria susceptibility test by minimum inhibitory concentration - NRG Methicillin resistant Staphylococcus aureus (MRSA) screening culture - 08:16 Methicillin resistant Staphylococcus aureus (MRSA) screening culture NEG NRG Comprehensive metabolic panel - 12/26/16 08:26 Serum or plasma sodium measurement (moles/volume) 141 mmol/L 135-145 Serum or plasma potassium measurement (moles/volume) 4.1 mmol/L 3.6-5.0 Serum or plasma chloride measurement (moles/volume) 105 mmol/L 98-107 Carbon dioxide 25 mmol/L 21-32 Serum or plasma anion gap determination (moles/volume) 11 mmol/L 5-14 Serum or plasma urea nitrogen measurement (mass/volume) 23 mg/dL 7-18 Serum or plasma creatinine measurement (mass/volume) 1.47 mg/dL 0.60-1.30 Serum or plasma urea nitrogen/creatinine mass [...] Serum or plasma cholesterol measurement (mass/volume) 206 mg/dL < 200 Serum or plasma cholesterol in HDL measurement (mass/volume) 38 mg/ dL 40-60 Cholesterol in LDL [mass/volume] in serum or plasma by direct assay 140 mg/dL 1-129 Serum or plasma cholesterol in VLDL measurement (mass/volume) 29 mg/ dL 5-40 PT panel in platelet poor plasma [...] 08:26 Blood leukocytes automated count (number/volume) 7.1 10*3/uL 4.3-11.0 Blood erythrocytes automated count (number/volume) 5.66 10*6/uL 4.35-5.85 Venous blood hemoglobin measurement (mass/volume) 15.1 [...] Automated blood platelet mean volume measurement 11.0 [foz_us] 7.4-10.4 Automated blood neutrophils/100 leukocytes 58 % [...] 03:35 Blood leukocytes automated count (number/volume) 8.3 10*3/uL 4.3-11.0 Blood erythrocytes automated count (number/volume) 4.64 10*6/uL 4.35-5.85 Venous blood hemoglobin measurement (mass/volume) 12.5 [...] Automated blood platelet mean volume measurement 10.7 [foz_us] 7.4-10.4 Whole blood basic metabolic panel - 12/27/16 03:35 Serum or plasma sodium measurement (moles/volume) 140 mmol/L 135-145 Serum or plasma potassium measurement (moles/volume) 4.1 mmol/L 3.6-5.0 Serum or plasma chloride measurement (moles/volume) 107 mmol/L 98-107 Carbon dioxide 22 mmol/L 21-32 Serum or plasma anion gap determination (moles/volume) 11 mmol/L 5-14 Serum or plasma urea nitrogen measurement (mass/volume) 23 mg/dL 7-18 Serum or plasma creatinine measurement (mass/volume) 1.29 mg/dL 0.60-1.30 Serum or plasma urea nitrogen/creatinine mass [...] Status Pt. Type Provider Facility Loc./Unit Complaint [id number] 03/12/2017 09:52:00 03/12/2017 23:59:59 CLS Outpatient ANTHONY GARZA Yulia [facility] [address] ONC [id number] 02/11/2017 07:44:00 02/11/2017 23:59:59 CLS Outpatient JOE ROBERTSON MD [facility] [address] RAD RT THYROID MASS [id number] 01/27/2017 10:41:00 01/27/2017 23:59:59 CLS Outpatient JOE ROBERTSON MD [facility] [address] CARD THYROID NODULE [id number] 01/26/2017 15:00:00 01/26/2017 23:59:59 CLS Preadmit JOE ROBERTSON MD [facility] [address] CARD THYROID NODULE [id number] 01/08/2017 11:10:00 01/08/2017 23:59:59 CLS Outpatient JEO ROBERTSON MD [facility] [address] CARD THYROID NODULE [id number] 12/26/2016 07:30:00 12/27/2016 11:45:00 DIS Outpatient DIMPLE NOVOA MD [facility] [address] CATH ABN STRESS TEST,CP, HTN, HLP,DM [id number] 12/24/2016 10:48:00 12/24/2016 23:59:59 CLS Outpatient GRECIA DIXON [facility] [address] CARD CAD I25.10 [id number] 12/17/2016 12:08:00 12/17/2016 23:59:59 CLS Outpatient ANUP SULTANA CLINICAL DOCUMENTATION NURSE [facility] [address] RAD THYROID NODULE [id number] 08/12/2016 12:12:00 08/12/2016 23:59:59 CLS Outpatient NAOMY KINGP [facility] [address] RAD SCREENING [id number] 06/06/2016 12:58:00 06/06/2016 23:59:59 CLS Outpatient DESTINEE SULTANA DO [facility] [address] RAD THYROID NODULE [id number] 02/20/2016 12:58:00 02/20/2016 23:59:59 CLS Outpatient NAOMY KINGP [facility] [address] ONC [id number] 02/01/2016 08:32:00 02/01/2016 23:59:59 CLS Outpatient DIMPLE NOVOA MD [facility] [address] RAD CAROTID STENOSIS, DIZZINESS [id number] 01/04/2016 11:01:00 01/04/2016 23:59:59 CLS Outpatient DIMPLE NOVOA MD [facility] [address] RAD CAROTID STENOSIS [id number] 12/05/2015 14:52:00 12/06/2015 17:54:00 DIS Inpatient JOE ROBERTSON MD [facility] [address] 4TH JARA,VERTIGO,URINARY TRACT INFECTION [id number] 11/22/2015 08:50:00 11/22/2015 12:00:00 DIS Outpatient JOE ROBERTSON MD [facility] [address] WOUNDCARE [id number] 11/14/2015 07:23:00 11/14/2015 23:59:59 CLS Outpatient CIERA ROJAS, DESTINEE Soliman [facility] [address] CARD [id number] 10/23/2015 08:46:00 10/23/2015 23:59:59 CLS Outpatient JOE ROBERTSON MD [facility] [address] RAD [id number] 10/05/2015 10:00:00 10/06/2015 09:44:00 DIS Inpatient JOE ROBERTSON MD [facility] [address] 4TH NAUSEA,VOMITING,DIAHERRA, BLOODY STOOL [id number] 10/03/2015 10:31:00 10/03/2015 23:59:59 CLS Outpatient JOE ROBERTSON MD [facility] [address] RAD SOB [id number] 09/25/2015 12:38:00 09/25/2015 23:59:59 CLS Outpatient NAFISA CHRIS MD [facility] [address] RAD MULTI NODULUAR GOITER [id number] 07/16/2015 16:14:00 07/16/2015 23:59:59 CLS Outpatient JOE ROBERTSON MD [facility] [address] LAB CDIFF, DIARHHEA [id number] 06/27/2015 06:32:00 06/27/2015 23:59:59 CLS Outpatient JOE ROBERTSON MD [facility] [address] LAB DIARRHEA [id number] 05/28/2015 21:30:00 05/28/2015 23:59:59 CLS Outpatient JOE ROBERTSON MD [facility] [address] LAB DIARRHEA [id number] 05/10/2015 20:05:00 05/10/2015 21:32:00 DIS Emergency DENIS HAIDER DO [facility] [address] ER L SIDE FACIAL DROOPING [id number] 05/10/2015 12:00:00 05/10/2015 13:31:00 DIS Emergency ANGEL MCDOWELL MD [facility] [address] ER FACIAL DROOPING/LEFT HAND NUMB [id number] 2015 13:56:00 2015 23:59:59 CLS Outpatient ANUP SULTANA CLINICAL DOCUMENTATION NURSE [facility] [address] RAD DIFFICULTY SWALLOWING THYROIDMEGALLY [id number] 02/19/2015 12:28:00 02/19/2015 23:59:59 CLS Outpatient ANTHONY GARZA [facility] [address] ONC [id number] 12/25/2014 16:05:00 12/26/2014 14:46:00 DIS Inpatient DIMPLE NOVOA MD [facility] [address] CSD [id number] 08/31/2014 09:11:00 08/31/2014 23:59:59 CLS Outpatient NAOMY KING CLINICAL DOCUMENTATION NURSE [facility] [address] RAD [id number] 08/30/2014 13:10:00 08/30/2014 23:59:59 CLS Outpatient JOE ROBERTSON MD [facility] [address] LAB [id number] 08/21/2014 12:52:00 08/21/2014 23:59:59 CLS Outpatient NAOMY KING CLINICAL DOCUMENTATION NURSE [facility] [address] ONC [id number] 08/08/2014 12:54:00 08/08/2014 23:59:59 CLS Outpatient ANTHONY GARZA [facility] [address] RAD [id number] 01/30/2014 13:02:00 01/30/2014 23:59:59 CLS Outpatient [id number] 11/09/2013 13:56:00 11/09/2013 23:59:59 CLS Outpatient NAOMY KING CLINICAL DOCUMENTATION NURSE [facility] [address] ONC [id number] 10/15/2013 18:23:00 10/15/2013 20:38:00 DIS Emergency [id number] 07/25/2013 12:48:00 07/25/2013 23:59:59 CLS Outpatient NAOMY KING CLINICAL DOCUMENTATION NURSE [facility] [address] RAD BREAST CA, ABN SONO [id number] 05/12/2013 14:47:00 05/12/2013 23:59:59 CLS Outpatient [id number] 04/28/2013 15:16:00 04/28/2013 23:59:59 CLS Outpatient [id number] 12/10/2012 10:57:00 02/06/2013 00:01:00 DIS Outpatient [id number] 01/17/2013 12:08:00 01/17/2013 23:59:59 CLS Outpatient [id number] 12/27/2012 12:00:00 12/27/2012 23:59:59 CLS Outpatient [id number] 08/13/2017 09:15:00 PEN Preadmit ANTHONY GARZA [facility] [address] RAD Z12.31 [id number] 09/26/2015 00:00:00 Document Registration [id number] 08/10/2015 13:28:00 Document Registration [id number] 12/25/2014 17:28:00 Document Registration
--- NOTE | 2017-08-09 16:27 | ED General ---
General Chief Complaint: Abdominal/GI Problems Stated Complaint: DIARRHEA/COLD/FLU SYMPTOMS Nursing Triage Note: PATIENT STATES SHE HAS HAD DIARRHEA X5 DAYS AND COLD SYMPTOMS, THROAT DRAINAGE CAUSING VOMITING. NO APPETITE. LAST MEAL YESTERDAY AFTERNOON. SHE IS HAVING BODY ACHES. Nursing Sepsis Screen: No Definite Risk Source of Information: Patient Exam Limitations: No Limitations History of Present Illness Date Seen by Provider: Aug 09, 2017 Time Seen by Provider: 16:26 Initial Comments To ER come in by her with watery diarrhea for 5 days, nasal discharge, productive cough, body aches "bone pain" and vomiting. Poor appetite. No fevers. Timing/Duration: 1-2 Days Severity: Moderate Associated Systoms: Cough, Nausea/Vomiting Allergies and Home Medications Allergies Coded Allergies: sulfamethoxazole (Verified Allergy, Intermediate, 10/05/15) tramadol (Verified Allergy, Intermediate, 10/05/15) trimethoprim (Verified Allergy, Intermediate, 10/05/15) Penicillins (Verified Allergy, Unknown, 10/05/15) codeine (Verified Allergy, Unknown, CAN TAKE MORPHINE, 10/05/15) hydrocodone (Verified Allergy, Unknown, 10/05/15) amiodarone (Verified Adverse Reaction, Mild, NAUSEA, dizziness, 02/01/16) Home Medications Aspirin 81 Mg Tablet.dr, 81 MG PO DAILY, (Reported) Ciprofloxacin HCl 500 Mg Tablet, 500 MG PO BID, #14 Ref 0 Prescribed by: DIMPLE NOVOA on 12/27/16 1041 Clopidogrel Bisulfate 75 Mg Tablet, 75 MG PO DAILY, (Reported) Insulin Aspart 100 Unit/1 Ml Susp, PER INSULIN PUMP, (Reported) Insulin Detemir 100 Unit/1 Ml Insuln.pen, 10-15 UNITS SQ HS, (Reported) WILL ADJUST PER BS READING Liraglutide 0.6 Mg/0.1 Ml Pen.injctr, 1.8 MG SQ HS, (Reported) Metoprolol Succinate 25 Mg Tab.er.24h, 12.5 MG PO DAILY, (Reported) TAKES 1/2 (25MG) TABLET Nitroglycerin 0.4 Mg Tab.subl, 0.4 MG SL UD PRN for CHEST PAIN, (Reported) Pantoprazole Sodium 40 Mg Tablet.dr, 40 MG PO HS, (Reported) Rosuvastatin Calcium 20 Mg Tablet, 20 MG PO DAILY, (Reported) Constitutional: see HPI, malaise, weakness EENTM: see HPI Respiratory: see HPI, cough Genitourinary: no symptoms reported Musculoskeletal: no symptoms reported Skin: no symptoms reported Psychiatric/Neurological: No Symptoms Reported Past Oclvmqy-Pbddcw-Hbxhxl Hx Patient Social History Alcohol Use: Denies Use Recreational Drug Use: No Smoking Status: Never a Smoker 2nd Hand Smoke Exposure: No Recent Foreign Travel: No Contact w/Someone Who Travel: No Recent Infectious Disease Expo: No Recent Hopitalizations: Yes Immunizations Up To Date Tetanus Booster (TDap): Less than 5yrs Date of Pneumonia Vaccine: May 07, 2016 Date of Influenza Vaccine: May 20, 2017 Seasonal Allergies Seasonal Allergies: No Surgeries History of Surgeries: Yes (PACEMAKER, CAROTID ARTERY, HEART CATH-STENTS / ANGIOPLASTY) Surgeries: Cardiac, Coronary Stent, Gallbladder, Hysterectomy, Orthopedic, Pacemaker, Vascular Surgery Respiratory History of Respiratory Disorde: Yes Respiratory Disorders: Sleep Apnea Currently Using CPAP: No Cardiovascular History of Cardiac Disorders: Yes (PACEMAKER, CHF, STENTS X10) Cardiac Disorders: Chronic Edema/Swelling, Coronary Artery Disease, Heart Attack, Heart Murmur, High Cholesterol, Hypertension, Peripheral Vascular Neurological History of Neurological Disord: Yes (TIA AFTER STENT IN JUNE) Neurological Disorders: Neuropathy, TIA Reproductive System Hx Reproductive Disorders: No Sexually 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 ) Endocrine History of Endocrine Disorders: Yes (INSULIN PUMP, 3 THYROID NODULES) Endocrine Disorders: Diabetes, Insulin dep HEENT HEENT Disorders: Cataract Loss of Vision: Right Hearing Impairment: Deaf Cancer History of Cancer: Yes (BREAST CA 2010) Cancer: Breast Psychosocial History of Psychiatric Problem: No Integumentary History of Skin or Integumenta: Yes (DIABETIC FOOT ULCER ON LEFT--PT STATES IS NOW HEALED. ) Blood Transfusions History of Blood Disorders: No Adverse Reaction to a Blood Tr: No Family Medical History Family Medial History: Cardiovascular disease 19 MOTHER G8 SISTER Completed stroke 19 FATHER G8 SISTER Diabetes mellitus 19 FATHER G8 SISTER G8 SISTER FH: cancer G8 SISTER G8 SISTER Myocardial infarction G8 BROTHER (65 YEARS OLD) Physical Exam Vital Signs Vital Sign - Last 12Hours 08/09/17 15:55 Temp 97.9 Pulse 62 Resp 20 B/P (MAP) 145/69 (94) Pulse Ox 97 O2 Delivery Room Air Capillary Refill : Less Than 3 Seconds General Appearance: No Apparent Distress, WD/WN Eyes: Bilateral Eye Normal Inspection, Bilateral Eye PERRL, Bilateral Eye EOMI HEENT: PERRL/EOMI, TMs Normal Neck: Full Range of Motion, Normal Inspection Respiratory: Normal Breath Sounds, No Accessory Muscle Use, No Respiratory Distress Cardiovascular: Regular Rate, Rhythm, Normal Peripheral Pulses Gastrointestinal: Normal Bowel Sounds, Non Tender, Soft Extremity: Normal Capillary Refill, Normal Inspection, Other (+2 pitting edema bilateral lower extremities) Neurologic/Psychiatric: Alert, Oriented x3 Skin: Normal Color, Warm/Dry Progress/Results/Core Measures Suspected Sepsis Recent Fever Within 48 Hours: No Infection Criteria Present: None New/Unexplained Altered Menta: No Sepsis Screen: No Definite Risk Sepsis Diagnosis: SIRS Temperature:97.9 Pulse: 62 Respiratory Rate: 20 Laboratory Tests 08/09/17 16:30: White Blood Count 3.2L Blood Pressure 145 /69 Mean: 94 Laboratory Tests 08/09/17 16:30: Creatinine 1.59H, Platelet Count 126L, Total Bilirubin 0.6 Results/Orders Lab Results Laboratory Tests Test 08/09/17 16:23 08/09/17 16:30 Range/Units Urine Color YELLOW Urine Clarity CLEAR Urine pH 5 5-9 Urine Specific [place] 1.015 L 1.016-1.022 Urine Protein NEGATIVE NEGATIVE Urine Glucose (UA) NEGATIVE NEGATIVE Urine Ketones NEGATIVE NEGATIVE Urine Nitrite NEGATIVE NEGATIVE Urine Bilirubin NEGATIVE NEGATIVE Urine Urobilinogen NORMAL NORMAL MG/DL Urine Leukocyte Esterase NEGATIVE NEGATIVE Urine RBC (Auto) NEGATIVE NEGATIVE Urine RBC NONE /HPF Urine WBC NONE /HPF Urine Squamous Epithelial Cells 2-5 /HPF Urine Crystals NONE /LPF Urine Bacteria TRACE /HPF Urine Casts PRESENT /LPF Urine Granular Casts 2-5 H /LPF Urine Mucus NEGATIVE /LPF Urine Culture Indicated NO White Blood Count 3.2 L 4.3-11.0 10^3/uL Red Blood Count 5.61 4.35-5.85 10^6/uL Hemoglobin 15.1 11.5-16.0 G/DL Hematocrit 45 35-52 % Mean Corpuscular Volume 81 80-99 FL Mean Corpuscular Hemoglobin 27 25-34 PG Mean Corpuscular Hemoglobin Concent 33 32-36 G/DL Red Cell Distribution Width 15.9 H 10.0-14.5 % Platelet Count 126 L 130-400 10^3/uL Mean Platelet Volume 11.0 H 7.4-10.4 FL Neutrophils (%) (Auto) 49 42-75 % Lymphocytes (%) (Auto) 34 12-44 % Monocytes (%) (Auto) 17 H 0-12 % Eosinophils (%) (Auto) 0 0-10 % Basophils (%) (Auto) 1 0-10 % Neutrophils # (Auto) 1.6 L 1.8-7.8 X 10^3 Lymphocytes # (Auto) 1.1 1.0-4.0 X 10^3 Monocytes # (Auto) 0.5 0.0-1.0 X 10^3 Eosinophils # (Auto) 0.0 0.0-0.3 10^3/uL Basophils # (Auto) 0.0 0.0-0.1 10^3/uL Sodium Level 136 135-145 MMOL/L Potassium Level 4.0 3.6-5.0 MMOL/L Chloride Level 98 98-107 MMOL/L Carbon Dioxide Level 26 21-32 MMOL/L Anion Gap 12 5-14 MMOL/L Blood Urea Nitrogen 26 H 7-18 MG/DL Creatinine 1.59 H 0.60-1.30 MG/DL Estimat Glomerular Filtration Rate 31 BUN/Creatinine Ratio 16 Glucose Level 79 70-105 MG/DL Calcium Level 9.1 8.5-10.1 MG/DL Total Bilirubin 0.6 0.1-1.0 MG/DL Aspartate Amino Transf (AST/SGOT) 47 H 5-34 U/L Alanine Aminotransferase (ALT/SGPT) 29 0-55 U/L Alkaline Phosphatase 84 40-136 U/L Total Protein 7.9 6.4-8.2 GM/DL Albumin 3.9 3.2-4.5 GM/DL Micro Results Microbiology 08/09/17 Influenza Types A,B Antigen (CHERRY) - Final, Complete My Orders Orders - DARYL PIEDRA APRN Cbc With Automated Diff (08/09/17 16:20) Comprehensive Metabolic Panel (08/09/17 16:20) Chest Pa/Lat (2 View) (08/09/17 16:20) Ua Culture If Indicated (08/09/17 16:20) Saline Lock/Iv-Start (08/09/17 16:20) Influenza A And B Antigens (08/09/17 16:20) Ns Iv 500 Ml (Sodium Chloride 0.9%) (08/09/17 16:30) Ondansetron Injection (Zofran Injectio (08/09/17 16:30) Loperamide Capsule (Imodium Capsule) (08/09/17 16:30) Ns Iv 500 Ml (Sodium Chloride 0.9%) (08/09/17 17:15) Medications Given in ED Current Medications Medications Dose Ordered Sig/Tresa Route Start Time Stop Time Status Last Admin Dose Admin Loperamide HCl 4 mg ONCE ONCE PO 08/09/17 16:30 08/09/17 16:31 DC 08/09/17 16:41 4 MG Ondansetron HCl 4 mg ONCE ONCE IVP 08/09/17 16:30 08/09/17 16:31 DC 08/09/17 16:41 4 MG Vital Signs/I&O Vital Sign - Last 12Hours 08/09/17 15:55 Temp 97.9 Pulse 62 Resp 20 B/P (MAP) 145/69 (94) Pulse Ox 97 O2 Delivery Room Air Capillary Refill : Less Than 3 Seconds Blood Pressure Mean: 94 Departure Impression Impression: Primary Impression: Influenza B Disposition: 01 HOME, SELF-CARE Condition: Stable (pneumonia and) Departure-Patient Inst. Decision time for Depature: 17:48 Referrals: JOE ROBERTSON MD (PCP/Family) Primary Care Physician Patient Instructions: Flu, Adult (DC) Add. Discharge Instructions: 1. Return to ER for any concerns 2. Nausea meds as needed for nasuea, diarrhea medication as directed Scripts Loperamide HCl (Imodium A-D) 2 Mg Capsule 2 MG PO UD, #10 CAP 1 capsule after each loose stool Prov: DARYL PIEDRA MANAGER INFORMATION 08/09/17 DARYL PIEDRA MANAGER INFORMATION Aug 09, 2017 16:27
[2017-08-09 16:29] LABS: BILIRUBIN,URINE NEGATIVE (NEGATIVE); CLARITY,URINE CLEAR; COLOR,URINE YELLOW; GLUCOSE, URINE (UA) NEGATIVE (NEGATIVE); KETONES,URINE NEGATIVE (NEGATIVE); LEUKOCYTE ESTERASE ,URINE NEGATIVE (NEGATIVE); NITRITE,URINE NEGATIVE (NEGATIVE); PH,URINE 5 (5-9); PROTEIN,URINE NEGATIVE (NEGATIVE); UROBILINOGEN,URINE NORMAL (NORMAL)
[2017-08-09] MEDS ORDERED: LOPERAMIDE 2 MG (IMODIUM) CAP PO ONE (16:30)
[2017-08-09] MEDS ORDERED: NS IV 500 ML 500 ML IV SCH ×2 (16:30→17:15)
[2017-08-09] MEDS ORDERED: ONDANSETRON 4 MG/2 ML (SDV) Z0FRAN IVP ONE (16:30)
[2017-08-09 16:39] LABS: BASOPHILS % (AUTO) 1 % (0-10); EOSINOPHILS % (AUTO) 0 % (0-10); HEMATOCRIT 45 % (35-52); HEMOGLOBIN 15.1 G/DL (11.5-16.0); LYMPHOCYTES # (AUTO) 1.1 X 10^3 (1.0-4.0); LYMPHOCYTES % (AUTO) 34 % (12-44); MEAN CORPUSCULAR HEMOGLOBIN 27 PG (25-34); MEAN CORPUSCULAR HGB CONC 33 G/DL (32-36); MEAN CORPUSCULAR VOLUME 81 FL (80-99); MONOCYTES # (AUTO) 0.5 X 10^3 (0.0-1.0); MONOCYTES % (AUTO) 17 % (0-12); NEUTROPHILS # (AUTO) 1.6 X 10^3 (1.8-7.8); NEUTROPHILS % (AUTO) 49 % (42-75); PLATELET COUNT 126 10^3/uL (130-400); RED BLOOD COUNT 5.61 10^6/uL (4.35-5.85); RED CELL DISTRIBUTION WIDTH 15.9 % (10.0-14.5); WHITE BLOOD COUNT 3.2 10^3/uL (4.3-11.0)
[2017-08-09 16:48] LABS: BACTERIA,URINE TRACE /HPF
[2017-08-09 17:00] LABS: ALBUMIN 3.9 GM/DL (3.2-4.5); BILIRUBIN,TOTAL 0.6 MG/DL (0.1-1.0); CALCIUM 9.1 MG/DL (8.5-10.1); CREATININE SERUM 1.59 MG/DL (0.60-1.30); TOTAL PROTEIN 7.9 GM/DL (6.4-8.2)
--- NOTE | 2017-08-09 17:09 | Diagnostic Imaging Report ---
INDICATION: Fever with diarrhea and chills. COMPARISON: 12/26/2016. FINDINGS: Stable cardiomegaly with left pectoral transvenous pacemaker. No pleural effusion or pneumothorax. No focal airspace disease. Linear atelectasis is present in the left lower lobe. Atherosclerotic aorta is unchanged. IMPRESSION: No acute cardiopulmonary process. Dictated by: Dictated on workstation # [id number]
[2017-08-09] MEDS ORDERED: LOPE-145 PO (17:50)
[2017-08-09] MEDS ORDERED: RX-ONDANSETRON 4 MG ODT (ZOFRAN) PPK #4 PO STA (17:50)
[2017-08-09 18:01] VITALS: BP 167/76
== END 2017-08-09 18:00 | disposition home or self-care (01) ==
LOC: EDUNIT# 14:44 → ER 14:46
DX: J10.1 Influenza due to other identified influenza virus with other respiratory manifestations (principal); I11.0 Hypertensive heart disease with heart failure; I50.9 Heart failure, unspecified; I25.10 Atherosclerotic heart disease of native coronary artery without angina pectoris; I25.2 Old myocardial infarction; E78.00 Pure hypercholesterolemia, unspecified; E11.51 Type 2 diabetes mellitus with diabetic peripheral angiopathy without gangrene; K21.9 Gastro-esophageal reflux disease without esophagitis; E11.40 Type 2 diabetes mellitus with diabetic neuropathy, unspecified; E11.621 Type 2 diabetes mellitus with foot ulcer; Z82.49 Family history of ischemic heart disease and other diseases of the circulatory system; Z85.3 Personal history of malignant neoplasm of breast; Z86.73 Personal history of transient ischemic attack (TIA), and cerebral infarction without residual deficits; Z79.4 Long term (current) use of insulin; Z95.0 Presence of cardiac pacemaker; Z95.5 Presence of coronary angioplasty implant and graft; Z90.710 Acquired absence of both cervix and uterus
CPT/HCPCS: 36415; 71046; 80053; 81000; 85025; 87804; 96361; 96374

== ENCOUNTER → 2017-09-10 | Outpatient (CLI) | payer MEDICARE ==
[~2017-09-10] MED LIST changes: +LOPE-145 PO
--- NOTE | 2017-09-10 16:56 | Diagnostic Imaging Report ---
INDICATION: Chronic kidney disease. TECHNIQUE: Multiple real-time grayscale images were obtained over the kidneys in various projections bilaterally. FINDINGS: Right kidney measures 9.9 x 5.6 x 4.4 cm. Left kidney measures 11.5 x 5.1 x 5.2 cm. There is some thinning of the renal cortex bilaterally as well as some increased renal cortical echogenicity. There is no hydronephrosis, calculus, or mass. Neither ureteral jet is visualized. IVC is not seen. IMPRESSION: Bilateral renal atrophy and medical renal disease, otherwise unremarkable. Dictated by: Dictated on workstation # [id number]
== END ==
LOC: RAD 13:53
PROVIDERS: ATTEND Nurse Practitioner
DX: I12.9 Hypertensive chronic kidney disease with stage 1 through stage 4 chronic kidney disease, or unspecified chronic kidney disease (principal); N18.3 Chronic kidney disease, stage 3 (moderate); I25.10 Atherosclerotic heart disease of native coronary artery without angina pectoris; E11.9 Type 2 diabetes mellitus without complications; E55.9 Vitamin D deficiency, unspecified; E78.5 Hyperlipidemia, unspecified; K21.9 Gastro-esophageal reflux disease without esophagitis; E87.2 Acidosis
CPT/HCPCS: 76770

== ENCOUNTER 2017-12-22 18:57 | Observation (INO) | payer MEDICARE ==
[~2017-12-22] VITALS: Ht 167.6 cm; Wt 88.1 kg
[~2017-12-22 18:57] MED LIST changes: +CHOL10007 PO; +CNC1KV IJ; +LIRA0.6P3 SQ; +LOPE-134 PO; +TORS100T4 PO
[2017-12-22] MEDS ORDERED: NS IV 500 ML 500 ML IV ONE (19:14)
[2017-12-22] MEDS ORDERED: ASPIRIN 81 MG CHEW (CHILDREN'S ASA) PO ONE (19:15)
--- NOTE | 2017-12-22 19:22 | ED Cardiac General ---
History of Present Illness General Stated Complaint: WEAKNESS;NECK PAIN;DIZZINESS Source: patient, spouse Exam Limitations: no limitations History of Present Illness Date Seen by Provider: Dec 22, 2017 Time Seen by Provider: 19:06 Initial Comments Patient presents with 3 chief complaints that started this afternoon. She says last few days she's been experiencing nasal congestion, malaise and feeling like she had a sinus infection so she went to her PA at Dr. Robertson's office and he put her on azithromycin pack yesterday which she says helped with her nasal congestion but then this afternoon she started feeling dizzy like she could pass out, weak and tired like she couldn't do what she was doing earlier and now bilateral posterior neck soreness. She's had no fevers or chills nor she had nausea and vomiting but she was coughing up some phlegm earlier according to her . She is not take breathing treatments. She has a history of a pacemaker without defibrillator, pulse stents and is known to Dr. Bauman. She also has stage IV chronic kidney disease for which she is followed by Dr. Araujo. She was recently started about 3 or 4 months ago on a new blood pressure medicine but she cannot think of the name. She's not having any chest pain or shortness of breath but she says she never gets chest pain before any of her previous heart attacks or stents. She has had no sweats or chills and her neck soreness has not radiated anywhere. She is not having any abdominal pain. Her last bowel movement was today and normal formed. No problems with urinating. She has no known history of atrial fibrillation/flutter and is not on any blood thinners but she is on Plavix and aspirin. Allergies and Home Medications Allergies Coded Allergies: sulfamethoxazole (Verified Allergy, Intermediate, 10/05/15) tramadol (Verified Allergy, Intermediate, 10/05/15) trimethoprim (Verified Allergy, Intermediate, 10/05/15) Penicillins (Verified Allergy, Unknown, 10/05/15) codeine (Verified Allergy, Unknown, CAN TAKE MORPHINE, 10/05/15) hydrocodone (Verified Allergy, Unknown, 10/05/15) amiodarone (Verified Adverse Reaction, Mild, NAUSEA, dizziness, 02/01/16) Home Medications Aspirin 81 Mg Tablet., 81 MG PO DAILY, (Reported) Cholecalciferol (Vitamin D3) 1,000 Unit Capsule, 1,000 UNIT PO DAILY, (Reported) Clopidogrel Bisulfate 75 Mg Tablet, 75 MG PO DAILY, (Reported) Cyanocobalamin 1,000 Mcg/Ml Inj, 1,000 MCG IJ MONTHLY, (Reported) Insulin Aspart 100 Unit/1 Ml Susp, PER INSULIN PUMP, (Reported) Insulin Detemir 100 Unit/1 Ml Insuln.pen, 10-15 UNITS SQ HS PRN for BS ABOVE 200 , (Reported) Liraglutide 0.6 Mg/0.1 Ml Pen.injctr, 1.2 MG SQ HS, (Reported) Loperamide HCl 2 Mg Tablet, PO UD PRN for DIARRHEA, (Reported) Metoprolol Succinate 25 Mg Tab.er.24h, 12.5 MG PO DAILY, (Reported) TAKES 1/2 (25MG) TABLET Nitroglycerin 0.4 Mg Tab.subl, 0.4 MG SL UD PRN for CHEST PAIN, (Reported) Pantoprazole Sodium 40 Mg Tablet.dr, 40 MG PO HS, (Reported) Potassium Chloride 20 Meq Tab.er.prt, 10 MEQ PO BID, (Reported) TAKES 1/2 (20MEQ) TABLET Rosuvastatin Calcium 20 Mg Tablet, 20 MG PO HS, (Reported) Torsemide 100 Mg Tablet, 100 MG PO DAILY, (Reported) Patient Home Medication List Home Medication List Reviewed: Yes Review of Systems Constitutional: No chills, No diaphoresis; dizziness (near syncope); No fever; malaise, weakness EENTM: No Blurred Vision, No Double Vision Respiratory: Cough; Denies Shortness of Air, Denies Wheezing Cardiovascular: Denies Chest Pain, Denies Edema, Denies Irregular Heart Rate; Palpitations Gastrointestinal: Denies Abdominal Pain, Denies Constipated, Denies Diarrhea, Denies Nausea, Denies Poor Appetite Genitourinary: Denies Burning, Denies Discharge, Denies Drainage Musculoskeletal: No back pain, No joint pain Skin: No pruritus, No rash Past Jneefgx-Nwpxmw-Icysxc Hx Patient Social History Alcohol Use: Denies Use Recreational Drug Use: No Smoking Status: Never a Smoker 2nd Hand Smoke Exposure: No Recent Foreign Travel: No Contact w/Someone Who Travel: No Recent Hopitalizations: Yes Immunizations Up To Date Tetanus Booster (TDap): Less than 5yrs Date of Pneumonia Vaccine: May 26, 2016 Date of Influenza Vaccine: May 01, 2016 Seasonal Allergies Seasonal Allergies: No Past Medical History Surgeries: Yes (PACEMAKER, CAROTID ARTERY, HEART CATH-STENTS /ANGIOPLASTY) Cardiac, Coronary Stent, Gallbladder, Hysterectomy, Orthopedic, Pacemaker, Vascular Surgery Respiratory: Yes Sleep Apnea Currently Using CPAP: No Cardiac: Yes (PACEMAKER, CHF, STENTS X10) Chronic Edema/Swelling, Coronary Artery Disease, Heart Attack, Heart Murmur, High Cholesterol, Hypertension, Peripheral Vascular Neurological: Yes (TIA AFTER STENT IN JUNE) Neuropathy, TIA 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 ) Endocrine: Yes (INSULIN PUMP, 3 THYROID NODULES) Diabetes, Insulin dep Cataract Loss of Vision: Right Hearing Impairment: Deaf Cancer: Yes (BREAST CA 2010) Breast Psychosocial: No Integumentary: Yes (DIABETIC FOOT ULCER ON LEFT--PT STATES IS NOW HEALED. ) Blood Disorders: No Adverse Reaction/Blood Tranf: No Family Medical History Cardiovascular disease 19 MOTHER G8 SISTER Completed stroke 19 FATHER G8 SISTER Diabetes mellitus 19 FATHER G8 SISTER G8 SISTER FH: cancer G8 SISTER G8 SISTER Myocardial infarction G8 BROTHER (65 YEARS OLD) Physical Exam Vital Signs Vital Signs - First Documented 12/22/17 19:03 Temp 96.4 Pulse 84 Resp 18 B/P (MAP) 119/60 (79) Pulse Ox 96 O2 Delivery Room Air Capillary Refill : General Appearance: WD/WN, Mild Distress HEENT: PERRL/EOMI, TMs Normal, Normal ENT Inspection, Pharynx Normal ( oropharynx is mildly dry); No Moist Mucous Membranes Neck: Full Range of Motion, Normal Inspection, Non Tender, Supple, Other (well- healed scar from prior right-sided carotid endarterectomy) Respiratory: Chest Non Tender, Lungs Clear, Normal Breath Sounds, No Accessory Muscle Use, No Respiratory Distress Cardiovascular: No Edema, No Gallop, No JVD, Normal Peripheral Pulses, Irregularly Irregular, Other (no hepatojugular reflux) Gastrointestinal: Normal Bowel Sounds, Non Tender, Soft Extremity: Normal Capillary Refill, Non Tender, No Calf Tenderness, No Pedal Edema Neurologic/Psychiatric: Alert, Oriented x3, No Motor/Sensory Deficits Skin: Normal Color, Warm/Dry Progress/Results/Core Measures Results/Orders Lab Results Laboratory Tests Test 12/22/17 19:20 Range/Units White Blood Count 9.7 4.3-11.0 10^3/uL Red Blood Count 4.96 4.35-5.85 10^6/uL Hemoglobin 13.7 11.5-16.0 G/DL Hematocrit 41 35-52 % Mean Corpuscular Volume 83 80-99 FL Mean Corpuscular Hemoglobin 28 25-34 PG Mean Corpuscular Hemoglobin Concent 33 32-36 G/DL Red Cell Distribution Width 15.8 H 10.0-14.5 % Platelet Count 297 130-400 10^3/uL Mean Platelet Volume 9.7 7.4-10.4 FL Neutrophils (%) (Auto) 66 42-75 % Lymphocytes (%) (Auto) 20 12-44 % Monocytes (%) (Auto) 12 0-12 % Eosinophils (%) (Auto) 2 0-10 % Basophils (%) (Auto) 0 0-10 % Neutrophils # (Auto) 6.4 1.8-7.8 X 10^3 Lymphocytes # (Auto) 2.0 1.0-4.0 X 10^3 Monocytes # (Auto) 1.1 H 0.0-1.0 X 10^3 Eosinophils # (Auto) 0.2 0.0-0.3 10^3/uL Basophils # (Auto) 0.0 0.0-0.1 10^3/uL Prothrombin Time 15.2 H 12.2-14.7 SEC INR Comment 1.2 0.8-1.4 Activated Partial Thromboplast Time 30 24-35 SEC Sodium Level 135 135-145 MMOL/L Potassium Level 3.6 3.6-5.0 MMOL/L Chloride Level 90 L 98-107 MMOL/L Carbon Dioxide Level 26 21-32 MMOL/L Anion Gap 19 H 5-14 MMOL/L Blood Urea Nitrogen 32 H 7-18 MG/DL Creatinine 1.94 H 0.60-1.30 MG/DL Estimat Glomerular Filtration Rate 25 BUN/Creatinine Ratio 16 Glucose Level 252 H 70-105 MG/DL Calcium Level 10.0 8.5-10.1 MG/DL Magnesium Level 1.7 L 1.8-2.4 MG/DL Total Bilirubin 0.8 0.1-1.0 MG/DL Aspartate Amino Transf (AST/SGOT) 16 5-34 U/L Alanine Aminotransferase (ALT/SGPT) 12 0-55 U/L Alkaline Phosphatase 91 40-136 U/L Myoglobin 158.8 H 10.0-92.0 NG/ML Troponin I < 0.30 <0.30 NG/ML C-Reactive Protein High Sensitivity 8.25 H 0.00-0.50 MG/DL B-Type Natriuretic Peptide 397.0 H <100.0 PG/ML Total Protein 8.0 6.4-8.2 GM/DL Albumin 3.7 3.2-4.5 GM/DL My Orders Orders - NIGHAT HASSAN BNP (12/22/17 19:14) Cbc With Automated Diff (12/22/17 19:14) Comprehensive Metabolic Panel (12/22/17 19:14) Hs C Reactive Protein (12/22/17 19:14) Magnesium (12/22/17 19:14) Chest Pa/Lat (2 View) (12/22/17 19:14) Ekg Tracing (12/22/17 19:14) Cardiac Profile 1 (12/22/17 19:14) Myoglobin Serum (12/22/17 19:14) Protime With Inr (12/22/17 19:14) Partial Thromboplastin Time (12/22/17 19:14) O2 (12/22/17 19:14) Monitor-Rhythm Ecg Trace Only (12/22/17 19:14) Aspirin Chewable Tablet (Baby Aspirin Ch (12/22/17 19:15) Saline Lock/Iv-Start (12/22/17 19:14) Ns Iv 500 Ml (Sodium Chloride 0.9%) (12/22/17 19:14) Magnesium Oxide Tablet (Mag Ox Tablet) (12/22/17 20:00) Medications Given in ED Current Medications Medications Dose Ordered Sig/Tresa Route Start Time Stop Time Status Last Admin Dose Admin Aspirin 324 mg ONCE ONCE PO 12/22/17 19:15 12/22/17 19:18 DC 12/22/17 19:30 324 MG Sodium Chloride 500 ml @ 0 mls/hr Q0M ONCE IV 12/22/17 19:14 12/22/17 19:18 DC 12/22/17 19:30 500 MLS/HR Vital Signs/I&O 12/22/17 19:03 Temp 96.4 Pulse 84 Resp 18 B/P (MAP) 119/60 (79) Pulse Ox 96 O2 Delivery Room Air Progress Progress Note : Time: 19:23 Progress Note Atypical coronary presentation it's possible periods also possible that with her new onset of A. fib that this could be explained some of her symptoms. Infection could also be contributing so we will obtain labs, 2 view chest x-ray give her an aspirin to chew up and half a liter fluids to start. We will then plan to obtain next for consultation from cardiology. September [address] Bauman: Total occlusion of left SFA stented. [id number] popliteal artery below the trifurcation and small vessel disease distally in the left lower extremity. Mild to moderate disease in the right SFA down the trifurcation. December [address] Bauman: Balloon angioplasty and stent deployment of the distal circumflex artery for recall of the in-stent restenosis with the use of a new stent. History of hypertension, hyperlipidemia, CHF, diabetes on long and rapid acting insulin. No previous EKG or history and physical mentioning atrial fibrillation. Initial ECG Impression Date: Dec 22, 2017 Initial ECG Impression Time: 19:06 Initial ECG Rate: 74 Initial ECG Rhythm: A Fib/Flutter Initial ECG Intervals: QT (444) Initial ECG Impression: Atrial Fibrillation Diagnostic Imaging Diagonstic Imaging: Xray (2v) Plain Films/CT/US/NM/MRI: chest Reviewed: Reviewed by Me Consults : Consulting Physician: DIMPLE BAUMAN MD Departure Communication (Admissions) Time/Spoke to Admitting Phy: 20:30 Dr lFaherty: Discussed case lab imaging findings new-onset A. fib and hypoxemia and he will see the patient. Time/Spoke to Consulting Phy: 20:25 Discussed case lab imaging EKG with Dr. Bauman and he agrees home under he will consult on her. Impression Primary Impression: Hypoxemia Additional Impressions: New onset atrial fibrillation Atypical angina Disposition: ADMITTED INPATIENT Condition: Stable Admissions Decision to Admit Reason: Admit from ER (General) Decision to Admit/Date: Dec 22, 2017 Time/Decision to Admit Time: 20:26 Departure-Patient Inst. Referrals: JOE ROBERTSON MD (PCP/Family) Primary Care Physician Copy Copies To 1: JOE ROBERTSON MD, TITUS J Dec 22, 2017 19:22
[2017-12-22 19:28] LABS: BASOPHILS % (AUTO) 0 % (0-10); EOSINOPHILS # (AUTO) 0.2 10^3/uL (0.0-0.3); EOSINOPHILS % (AUTO) 2 % (0-10); HEMATOCRIT 41 % (35-52); HEMOGLOBIN 13.7 G/DL (11.5-16.0); LYMPHOCYTES % (AUTO) 20 % (12-44); MEAN CORPUSCULAR HEMOGLOBIN 28 PG (25-34); MEAN CORPUSCULAR HGB CONC 33 G/DL (32-36); MEAN CORPUSCULAR VOLUME 83 FL (80-99); MEAN PLATELET VOLUME 9.7 FL (7.4-10.4); MONOCYTES # (AUTO) 1.1 X 10^3 (0.0-1.0); MONOCYTES % (AUTO) 12 % (0-12); NEUTROPHILS # (AUTO) 6.4 X 10^3 (1.8-7.8); NEUTROPHILS % (AUTO) 66 % (42-75); PLATELET COUNT 297 10^3/uL (130-400); RED BLOOD COUNT 4.96 10^6/uL (4.35-5.85); RED CELL DISTRIBUTION WIDTH 15.8 % (10.0-14.5); WHITE BLOOD COUNT 9.7 10^3/uL (4.3-11.0)
[2017-12-22 19:40] LABS: INR 1.2 (0.8-1.4); PROTHROMBIN TIME PATIENT 15.2 SEC (12.2-14.7)
[2017-12-22 19:49] LABS: ALBUMIN 3.7 GM/DL (3.2-4.5); BILIRUBIN,TOTAL 0.8 MG/DL (0.1-1.0); CREATININE SERUM 1.94 MG/DL (0.60-1.30); MAGNESIUM 1.7 MG/DL (1.8-2.4); POTASSIUM 3.6 MMOL/L (3.6-5.0)
[2017-12-22 19:57] LABS: MYOGLOBIN SERUM 158.8 NG/ML (10.0-92.0)
[2017-12-22] MEDS ORDERED: MAGNESIUM OXIDE (MAG-OX)400 MG TAB PO ONE (20:00)
--- NOTE | 2017-12-22 21:58 | Diagnostic Imaging Report ---
INDICATION: Weakness. Shortness of breath. COMPARISON: 09/23/2017. FINDINGS: PA and lateral chest. The lungs are well-aerated and clear. The heart is not enlarged. There is pacemaker on the left, the leads are unchanged. There is no evidence of pulmonary edema. No pneumothorax or pleural effusion. IMPRESSION: No acute changes of the PA and lateral chest. Dictated by: Dictated on workstation # [id number]
[2017-12-22 22:00] VITALS: BP 117/73
[2017-12-22] MEDS ORDERED: MAGNESIUM OXIDE (MAG-OX)400 MG TAB PO SCH (22:20)
[2017-12-22 22:26] VITALS: BP 121/57
[2017-12-22] MEDS ORDERED: morphine INJ 4 MG/ML 1 ML (VIAL/SYRINGE) IV PRN (22:30)
[2017-12-22] MEDS ORDERED: NITROGLYCERIN 0.4 MG SL TABS BTL 25'S SL PRN (22:30)
[2017-12-22] MEDS ORDERED: ONDANSETRON 4 MG/2 ML (SDV) Z0FRAN IV PRN (22:30)
[2017-12-22 22:40] VITALS: BP 129/68
[2017-12-22 23:05] VITALS: BP 128/70
[2017-12-23] VITALS (7 sets, daily range): BP systolic 94–138; BP diastolic 44–68
[2017-12-23 05:43] LABS: BASOPHILS % (AUTO) 1 % (0-10); EOSINOPHILS # (AUTO) 0.3 10^3/uL (0.0-0.3); EOSINOPHILS % (AUTO) 3 % (0-10); HEMATOCRIT 39 % (35-52); HEMOGLOBIN 13.3 G/DL (11.5-16.0); LYMPHOCYTES # (AUTO) 2.5 X 10^3 (1.0-4.0); LYMPHOCYTES % (AUTO) 28 % (12-44); MEAN CORPUSCULAR HEMOGLOBIN 29 PG (25-34); MEAN CORPUSCULAR HGB CONC 34 G/DL (32-36); MEAN CORPUSCULAR VOLUME 84 FL (80-99); MEAN PLATELET VOLUME 9.7 FL (7.4-10.4); MONOCYTES # (AUTO) 0.9 X 10^3 (0.0-1.0); MONOCYTES % (AUTO) 11 % (0-12); NEUTROPHILS % (AUTO) 58 % (42-75); PLATELET COUNT 297 10^3/uL (130-400); RED BLOOD COUNT 4.62 10^6/uL (4.35-5.85); RED CELL DISTRIBUTION WIDTH 15.6 % (10.0-14.5); WHITE BLOOD COUNT 8.7 10^3/uL (4.3-11.0)
[2017-12-23 06:01] LABS: ALANINE AMINOTRANSFERASE 12 U/L (0-55); ALBUMIN 3.7 GM/DL (3.2-4.5); ALKALINE PHOSPHATASE 84 U/L (40-136); BILIRUBIN,TOTAL 0.6 MG/DL (0.1-1.0); BUN/CREATININE RATIO 17; CALCIUM 9.8 MG/DL (8.5-10.1); CARBON DIOXIDE 31 MMOL/L (21-32); CHLORIDE 95 MMOL/L (98-107); CHOLESTEROL 135 MG/DL (< 200); CREATININE SERUM 1.83 MG/DL (0.60-1.30); GFR ESTIMATED 27; GLUCOSE 94 MG/DL (70-105); HDL CHOLESTEROL 25 MG/DL (40-60); POTASSIUM 3.3 MMOL/L (3.6-5.0); SODIUM 139 MMOL/L (135-145); TOTAL PROTEIN 7.6 GM/DL (6.4-8.2); TRIGLYCERIDES 136 MG/DL (<150); VLDL CHOLESTEROL 27 MG/DL (5-40)
[2017-12-23] MEDS ORDERED: INSULIN VIAL ASPART for PUMP 100 UNIT/ML VIAL SQ SCH (07:00)
[2017-12-23] MEDS ORDERED: KCL 10 MEQ TAB (MICRO K) PO SCH (07:00)
[2017-12-23] MEDS ORDERED: PANTOPRAZOLE 40 MG (PROTONIX) TAB PO SCH ×3 (07:00→21:00)
[2017-12-23] MEDS ORDERED: DIAZ5TAB3 PO (08:17)
[2017-12-23] MEDS ORDERED: FLUT16SP22 NS (08:17)
[2017-12-23] MEDS ORDERED: ERGO50006 PO (08:17)
[2017-12-23] MEDS ORDERED: AZIT250T12 PO (08:17)
--- NOTE | 2017-12-23 08:25 | Consultation-Cardiology ---
HPI-Cardiology Cardiology Consultation Date of Consultation 12/23/17 Date of Admission Time Seen by Provider: 08:20 Indication: Coronary artery disease HPI 77 years old lady with extensive cardiac history, had upper respiratory tract infection and started on oral antibiotic, came into the emergency room for generalized weakness, has been having neck and shoulders pain. Denied any chest pain, mild dyspnea, no palpitation, no syncope or near syncopal episodes and no claudications. Patient was admitted and monitored, had sinus rhythm with few episode of paroxysmal atrial tachycardia. Upon my evaluation she expressed that she is feeling better and requesting to go home. No fever or chills. Home Medications & Allergies Allergies: Coded Allergies: sulfamethoxazole (Verified Allergy, Intermediate, 10/05/15) tramadol (Verified Allergy, Intermediate, 10/05/15) trimethoprim (Verified Allergy, Intermediate, 10/05/15) Penicillins (Verified Allergy, Unknown, 10/05/15) codeine (Verified Allergy, Unknown, CAN TAKE MORPHINE, 10/05/15) hydrocodone (Verified Allergy, Unknown, 10/05/15) amiodarone (Verified Adverse Reaction, Mild, NAUSEA, dizziness, 02/01/16) Home Medication List Reviewed: Yes ECK-Kjjyae-Zmoowq Hx Patient Social History Marital Status: Employed/Student: employed Alcohol Use: Denies Use Recreational Drug Use: No Smoking Status: Never a Smoker 2nd Hand Smoke Exposure: No Recent Foreign Travel: No Recent Infectious Disease Expo: No Recent Hopitalizations: Yes (op testing) Physical Abuse Screen: No Sexual Abuse: No Immunizations Up To Date Tetanus Booster (TDap): Less than 5yrs Date of Pneumonia Vaccine: Apr 23, 2017 Date of Influenza Vaccine: May 01, 2016 Past Medical History Past medical history as described below Family Medical History Family History: Cardiovascular disease 19 MOTHER G8 SISTER Completed stroke 19 FATHER G8 SISTER Diabetes mellitus 19 FATHER G8 SISTER G8 SISTER FH: cancer G8 SISTER G8 SISTER Myocardial infarction G8 BROTHER (65 YEARS OLD) Constitutional: see HPI, malaise, weakness EENTM: see HPI, no symptoms reported Respiratory: no symptoms reported, see HPI; No cough; dyspnea on exertion; No hemoptysis, No orthopnea, No phlegm, No short of breath, No stridor, No wheezing , No other Cardiovascular: see HPI; No chest pain, No edema, No Hx of Intervention, No palpitations, No syncope, No vascular heart diseas, No other Gastrointestinal: no symptoms reported, see HPI Genitourinary: see HPI Musculoskeletal: no symptoms reported, see HPI Skin: no symptoms reported, see HPI Psychiatric/Neurological: No Symptoms Reported, See HPI Reviewed Test Results Reviewed Test Results Lab Laboratory Tests Test 12/22/17 19:20 12/23/17 05:13 12/23/17 05:27 Range/Units White Blood Count 9.7 8.7 4.3-11.0 10^3/uL Red Blood Count 4.96 4.62 4.35-5.85 10^6/uL Hemoglobin 13.7 13.3 11.5-16.0 G/DL Hematocrit 41 39 35-52 % Mean Corpuscular Volume 83 84 80-99 FL Mean Corpuscular Hemoglobin 28 29 25-34 PG Mean Corpuscular Hemoglobin Concent 33 34 32-36 G/DL Red Cell Distribution Width 15.8 H 15.6 H 10.0-14.5 % Platelet Count 297 297 130-400 10^3/uL Mean Platelet Volume 9.7 9.7 7.4-10.4 FL Neutrophils (%) (Auto) 66 58 42-75 % Lymphocytes (%) (Auto) 20 28 12-44 % Monocytes (%) (Auto) 12 11 0-12 % Eosinophils (%) (Auto) 2 3 0-10 % Basophils (%) (Auto) 0 1 0-10 % Neutrophils # (Auto) 6.4 5.0 1.8-7.8 X 10^3 Lymphocytes # (Auto) 2.0 2.5 1.0-4.0 X 10^3 Monocytes # (Auto) 1.1 H 0.9 0.0-1.0 X 10^3 Eosinophils # (Auto) 0.2 0.3 0.0-0.3 10^3/uL Basophils # (Auto) 0.0 0.0 0.0-0.1 10^3/uL Prothrombin Time 15.2 H 12.2-14.7 SEC INR Comment 1.2 0.8-1.4 Activated Partial Thromboplast Time 30 24-35 SEC Sodium Level 135 139 135-145 MMOL/L Potassium Level 3.6 3.3 L 3.6-5.0 MMOL/L Chloride Level 90 L 95 L 98-107 MMOL/L Carbon Dioxide Level 26 31 21-32 MMOL/L Anion Gap 19 H 13 5-14 MMOL/L Blood Urea Nitrogen 32 H 31 H 7-18 MG/DL Creatinine 1.94 H 1.83 H 0.60-1.30 MG/DL Estimat Glomerular Filtration Rate 25 27 BUN/Creatinine Ratio 16 17 Glucose Level 252 H 94 70-105 MG/DL Calcium Level 10.0 9.8 8.5-10.1 MG/DL Magnesium Level 1.7 L 2.0 1.8-2.4 MG/DL Total Bilirubin 0.8 0.6 0.1-1.0 MG/DL Aspartate Amino Transf (AST/SGOT) 16 17 5-34 U/L Alanine Aminotransferase (ALT/SGPT) 12 12 0-55 U/L Alkaline Phosphatase 91 84 40-136 U/L Myoglobin 158.8 H 10.0-92.0 NG/ML Troponin I < 0.30 < 0.30 <0.30 NG/ML C-Reactive Protein High Sensitivity 8.25 H 0.00-0.50 MG/DL B-Type Natriuretic Peptide 397.0 H <100.0 PG/ML Total Protein 8.0 7.6 6.4-8.2 GM/DL Albumin 3.7 3.7 3.2-4.5 GM/DL Glucometer 102 70-110 MG/DL Triglycerides Level 136 <150 MG/DL Cholesterol Level 135 < 200 MG/DL LDL Cholesterol Direct 86 1-129 MG/DL VLDL Cholesterol 27 5-40 MG/DL HDL Cholesterol 25 L 40-60 MG/DL Physical Exam Vital Signs Vital Signs - First Documented 12/22/17 19:03 Temp 96.4 Pulse 84 Resp 18 B/P (MAP) 119/60 (79) Pulse Ox 96 O2 Delivery Room Air Capillary Refill : Less Than 3 Seconds General Appearance: No Apparent Distress, WD/WN Eyes: Bilateral Eye Normal Inspection, Bilateral Eye PERRL, Bilateral Eye EOMI HEENT: PERRL/EOMI, TMs Normal, Normal ENT Inspection, Pharynx Normal Neck: Full Range of Motion, Normal Inspection, Non Tender, Supple, Carotid Bruit Respiratory: Chest Non Tender, Normal Breath Sounds, No Accessory Muscle Use, No Respiratory Distress, Crackles Cardiovascular: Regular Rate, Rhythm, No Edema, No JVD, Normal Peripheral Pulses, Systolic Murmur, Gallop/S3 Gastrointestinal: Normal Bowel Sounds, No Organomegaly, No Pulsatile Mass, Non Tender, Soft Back: Normal Inspection, No CVA Tenderness, No Vertebral Tenderness Extremity: Normal Capillary Refill, Normal Inspection, Normal Range of Motion, Non Tender, No Calf Tenderness, No Pedal Edema Neurologic/Psychiatric: Alert, Oriented x3, No Motor/Sensory Deficits, Normal Mood/Affect Skin: Normal Color, Warm/Dry Lymphatic: No Adenopathy A/P-Cardiology Admission Diagnosis Generalized weakness Hypokalemia Coronary artery disease Hypertension Assessment/Plan Generalized weakness and loss of energy, upper respiratory tract infection for which she has been taking antibiotics. Managed by primary care physician. Hypokalemia, has been on potassium as an outpatient, I'll give additional potassium dose today. Coronary artery disease, multiple interventions in the past, reports a total of 11 stents. Multivessel disease. Cardiac catheterization was done in October 2012 showing severe stenosis in the midright coronary artery had stent deployed 3.0x24 mm Promus elements stent expanded to 3.18 mm in the right coronary artery. Severe stenosis in the proximal diagonal artery, very small artery not amendable to intervention. 60 percent in-stent restenosis in the mid circumflex artery, underwent another cardiac catheterization on November 19, [address] Burch, had a stent to the circumflex artery, the stent sizes was not described in the report. Most recent cardiac catheterization done December 26, 2016 with balloon angioplasty to the mid circumflex for 80 percent in-stent restenosis. Patient was brought back the same day where she underwent repeat cardiac catheterization after having chest pain, underwent another balloon angioplasty and stent deployment in the distal circumflex artery for recoil of the in-stent restenosis with the use of a new stent, 3.5 x 18 mm Mybandstock Alpine stent. Excellent results. Maintained on Plavix and aspirin. Continue on current medications and monitor Recurrent dizziness and lightheadedness, feeling better at this time, had few episode of paroxysmal atrial tachycardia. Mild to moderate aortic stenosis, last echocardiogram was done on November 2015 done in [facility]. I will review 2-D echocardiogram Labile hypertension, seen by Dr. Long, continue to monitor blood pressure , no changes at this time Hyperlipidemia, patient reports intolerance to Lipitor, tolerating Crestor, continue to monitor lipids Diabetes mellitus, followed and managed by primary care physician. Sick sinus syndrome, history of permanent pacemaker placement. [employer] device , continue to monitor Carotid stenosis, history of right carotid endarterectomy. CTA of neck done on February 01, 2016 revealed no significant stenosis in the internal carotid arteries. Prominent focus of stenosis in the distal aspect of the left vertebral artery at the foramen magnum and level dominant right vertebral artery demonstrates no significant stenosis. Carotid ultrasound in January 2017 showed mild bilateral disease. Continue to monitor. Peripheral vascular disease, history of nonhealing foot ulcer, had a stent placed this year, last BARRY was done in April 2016. Continue to monitor. Paroxysmal atrial fibrillation, Amiodarone and Xarelto were discontinued, she is in sinus rhythm, continue to monitor Intolerance to amiodarone. 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 followed by Dr. Palomino, currently in remission. Chronic renal insufficiency, stage IV renal disease, followed by Dr. Long, continue to monitor Patient is requesting to go home, okay by cardiology for discharge Clinical Quality Measures DVT/VTE Risk/Contraindication: Risk Factor Score Per Nursin RFS Level Per Nursing on Admit: 4+=Very High DIMPLE NOVOA MD Dec 23, 2017 08:25
[2017-12-23] MEDS ORDERED: KCL 20 MEQ TAB (K-DUR) PO NR ×2 (08:30→09:23)
[2017-12-23] MEDS ORDERED: PATIENT MAY USE OWN MEDS, ALL MC SCH (08:45)
[2017-12-23] MEDS ORDERED: TORSEMIDE 20 MG (DEMADEX) TAB PO SCH (09:00)
[2017-12-23] MEDS ORDERED: lisINopril 5 MG (PRINIVIL) TABLET PO SCH (09:00)
[2017-12-23] MEDS ORDERED: ASPIRIN E.C. 81 MG (ECOTRIN) TAB PO SCH ×2 (09:00→09:21)
[2017-12-23] MEDS ORDERED: CLOPIDOGREL 75 MG (PLAVIX) TABLET PO SCH ×2 (09:00→09:22)
[2017-12-23] MEDS ORDERED: meTOprolol TARTRATE 25 MG (LOPRESSOR) TABLET PO SCH (09:00)
[2017-12-23] MEDS ORDERED: TORSEMIDE 100 MG PO SCH (09:19)
[2017-12-23] MEDS ORDERED: NITROGLYCERIN 0.4 MG SL TABS BTL 25'S SL PRN (09:30)
[2017-12-23] MEDS ORDERED: NON-FORMULARY MEDICATION 1 EA EA (Nitroglycerin (Nitrostat) 0.4 MG) SL PRN (11:00)
[2017-12-23] MEDS ORDERED: DIAZEPAM 5 MG (VALIUM) TABLET PO PRN (11:00)
[2017-12-23] MEDS ORDERED: LISI-556 PO (11:04)
--- NOTE | 2017-12-23 11:07 | Short Stay Summary-Hospitalist ---
History of Present Illness HPI/Chief Complaint CC: Dizziness, fatigue HPI: This is a 77-year-old white female clinic patient of Dr. Gonzales and cardiology Dr. Bauman with a past medical history of sick sinus syndrome status post pacemaker placement, diabetes mellitus, chronic renal insufficiency and hypertension who presented to the ER with nonspecific complaints with dizziness and not feeling well. She was seen by her primary care provider placed on Zithromax but suddenly felt very dizzy and just not feeling up to par so she presented to the ER found to have criteria met for observation status due to the cardiac history so she was placed on telemetry Dr. Bauman saw her in consultation evaluated everything to be stable on telemetry and she has been approved for discharge from cardiology. I reviewed all of her home medications restarted everything and reviewed any addition that Dr. Bauman has initiated and that was the lisinopril of 5 mg daily. Source: patient Date Seen 12/23/17 Time Seen by Provider: 10:30 Attending Physician Rashaun Gonzales MD PCP Rashaun Gonzales MD Referring Physician DIMPLE BAUMAN MD Date of Admission Dec 22, 2017 at 21:23 Home Medications & Allergies Home Medications Reviewed patient Home Medication Reconciliation performed by pharmacy medication reconciliations durable medical equipment technician and/or nursing. Patients Allergies have been reviewed. Allergies Allergies Coded Allergies sulfamethoxazole (Verified Allergy, Intermediate, 10/05/15) tramadol (Verified Allergy, Intermediate, 10/05/15) trimethoprim (Verified Allergy, Intermediate, 10/05/15) Penicillins (Verified Allergy, Unknown, 10/05/15) codeine (Verified Allergy, Unknown, CAN TAKE MORPHINE, 10/05/15) hydrocodone (Verified Allergy, Unknown, 10/05/15) amiodarone (Verified Adverse Reaction, Mild, NAUSEA, dizziness, 02/01/16) Past Rfcswlr-Lgajne-Akcsiy Hx Past Med/Social Hx: Reviewed Nursing Past Med/Soc Hx, Reviewed and Corrections made Patient Social History Marrital Status: Employed/Student: employed Alcohol Use: Denies Use Recreational Drug Use: No Smoking Status: Never a Smoker 2nd Hand Smoke Exposure: No Physical Abuse Screen: No Sexual Abuse: No Recent Foreign Travel: No Contact w/other who traveled: No Recent Hopitalizations: Yes (op testing) Recent Infectious Disease Expo: No Immunizations Up To Date Tetanus Booster (TDap): Less than 5yrs Date of Pneumonia Vaccine: Apr 23, 2017 Date of Influenza Vaccine: May 01, 2016 Seasonal Allergies Seasonal Allergies: No Past Medical History Surgeries: Cardiac, Coronary Stent, Gallbladder, Hysterectomy, Orthopedic, Pacemaker, Vascular Surgery Currently Using CPAP: No Currently Using BIPAP: No Cardiac: Chronic Edema/Swelling, Coronary Artery Disease, Heart Attack, Heart Murmur, High Cholesterol, Hypertension, Peripheral Vascular Neurological: Neuropathy, TIA Reproductive: No Sexually Transmitted Disease: No Hysterectomy, Menopausal Genitourinary: UTI-Chronic Gastrointestinal: Irritable Bowel Endocrine: Diabetes, Insulin dep Are Your Blood Sugars Over 250: No HEENT: Cataract Loss of Vision: Right Hearing Impairment: Deaf Cancer: Breast Did You Recieve Any Treatments: Yes What Type of Treatment Did You: Radiation History of Blood Disorders: No Adverse Reaction to Blood High: No Family History Cardiovascular disease 19 MOTHER G8 SISTER Completed stroke 19 FATHER G8 SISTER Diabetes mellitus 19 FATHER G8 SISTER G8 SISTER FH: cancer G8 SISTER G8 SISTER Myocardial infarction G8 BROTHER (65 YEARS OLD) Review of Systems Constitutional: see HPI, dizziness, malaise, weakness EENTM: no symptoms reported Respiratory: cough Cardiovascular: no symptoms reported Gastrointestinal: no symptoms reported Genitourinary: no symptoms reported Musculoskeletal: no symptoms reported Skin: no symptoms reported Psychiatric/Neurological: No Symptoms Reported All Other Systems Reviewed Negative Unless Noted: Yes Physical Exam Physical Exam Vital Signs Vital Signs - First Documented 12/22/17 19:03 Temp 96.4 Pulse 84 Resp 18 B/P (MAP) 119/60 (79) Pulse Ox 96 O2 Delivery Room Air Capillary Refill : Less Than 3 Seconds General Appearance: No Apparent Distress, WD/WN, Chronically ill, Obese Eyes: Bilateral Eye Normal Inspection, Bilateral Eye PERRL HEENT: PERRL/EOMI, Normal ENT Inspection, Pharynx Normal Neck: Full Range of Motion, Normal Inspection, Non Tender, Supple, Carotid Bruit Respiratory: Chest Non Tender, Lungs Clear, Normal Breath Sounds, No Accessory Muscle Use, No Respiratory Distress Cardiovascular: Regular Rate, Rhythm, No Edema, No Gallop, No JVD, No Murmur, Normal Peripheral Pulses Gastrointestinal: Normal Bowel Sounds, No Organomegaly, No Pulsatile Mass, Non Tender, Soft Back: Normal Inspection, No CVA Tenderness, No Vertebral Tenderness Extremity: Normal Capillary Refill, Normal Inspection, Normal Range of Motion, Non Tender, No Calf Tenderness, No Pedal Edema Neurologic/Psychiatric: Alert, Oriented x3, No Motor/Sensory Deficits, Normal Mood/Affect Skin: Normal Color, Warm/Dry Lymphatic: No Adenopathy Results Results/Procedures Labs Laboratory Tests 12/22/17 19:20 12/23/17 05:27 Patient resulted labs reviewed. Short Stay Diagnosis Discharge Diagnosis-Short Stay Admission Diagnosis Assessment: Dizziness URI on Zmax CRI DM HTN SSS Plan: DC home Sent in new Rx Final Discharge Diagnosis Assessment: Dizziness URI on Zmax CRI DM HTN SSS Plan: DC home Sent in new Rx Conclusion Plan DC home Close f/u Dr Gonzales Diagnosis/Problems Diagnosis/Problems (1) Dizziness Status: Acute (2) URI (upper respiratory infection) Status: Acute Qualifiers: Qualified Codes: J06.9 - Acute upper respiratory infection, unspecified (3) SSS (sick sinus syndrome) Status: Chronic (4) Dyspnea Status: Acute Qualifiers: Qualified Codes: R06.09 - Other forms of dyspnea (5) Hypertension Status: Acute (6) Peripheral vascular disease Status: Acute (7) Coronary artery disease Status: Acute (8) IDDM (insulin dependent diabetes mellitus) Status: Acute Clinical Quality Measures DVT/VTE Risk/Contraindication: Risk Factor Score Per Nursin RFS Level Per Nursing on Admit: 4+=Very High KIMMY HANSON DO Dec 23, 2017 11:07
[2017-12-23] MEDS ORDERED: KCL 20 MEQ TAB (K-DUR) PO SCH ×2 (17:00→21:00)
[2017-12-23] MEDS ORDERED: inSUlin DETERMIR 1 UNIT/0.01 ML (LEVEMIR) CHARGE PER UNIT SQ PRN (21:00)
[2017-12-23] MEDS ORDERED: ROSUVASTATIN 20 MG (CRESTOR) TABLET PO SCH ×3 (21:00)
[2017-12-23] MEDS ORDERED: inSUlin DETERMIR 1 UNIT/0.01 ML (LEVEMIR) CHARGE PER UNIT SQ SCH (21:00)
[2017-12-23] MEDS ORDERED: NON-FORMULARY MEDICATION 1 EA EA (Liraglutide (Victoza 3-Pak) 1.2 MG) SQ SCH (21:00)
[2017-12-23] MEDS ORDERED: FLUTICASONE NASAL SPRAY (FLONASE) 16 GM BTL NS SCH (21:00)
[2017-12-24] MEDS ORDERED: TORSEMIDE 100 MG PO SCH ×2 (09:00)
[2017-12-24] MEDS ORDERED: CLOPIDOGREL 75 MG (PLAVIX) TABLET PO SCH (09:00)
[2017-12-24] MEDS ORDERED: ASPIRIN E.C. 81 MG (ECOTRIN) TAB PO SCH (09:00)
[2017-12-29] MEDS ORDERED: VITAMIN D2 50,000 UNITS (1.25 MG) CAP PO SCH (11:00)
[2018-01-02] MEDS ORDERED: CYANOCOBALAMIN INJ 1000 MCG/ML IM SCH (09:00)
== END 2017-12-23 11:06 | disposition home or self-care (01) ==
LOC: EDUNIT# 18:57 → ER 18:59 → 4TH 21:23 → UNDOADMOB 21:23 → 4TH 22:00 → UNDODISOB 12-23 13:30
PROVIDERS: ADMIT Internal Medicine; ATTEND Internal Medicine
DX: R42 Dizziness and giddiness (principal); R53.1 Weakness; J06.9 Acute upper respiratory infection, unspecified; E87.6 Hypokalemia; I49.5 Sick sinus syndrome; R06.09 Other forms of dyspnea; I48.0 Paroxysmal atrial fibrillation; I12.9 Hypertensive chronic kidney disease with stage 1 through stage 4 chronic kidney disease, or unspecified chronic kidney disease; N18.4 Chronic kidney disease, stage 4 (severe); I73.9 Peripheral vascular disease, unspecified; I25.10 Atherosclerotic heart disease of native coronary artery without angina pectoris; E11.51 Type 2 diabetes mellitus with diabetic peripheral angiopathy without gangrene; E78.5 Hyperlipidemia, unspecified; I25.2 Old myocardial infarction; Z79.01 Long term (current) use of anticoagulants; Z95.5 Presence of coronary angioplasty implant and graft; Z95.0 Presence of cardiac pacemaker; Z88.0 Allergy status to penicillin; Z88.2 Allergy status to sulfonamides; Z88.5 Allergy status to narcotic agent; Z85.3 Personal history of malignant neoplasm of breast
CPT/HCPCS: 36415; 71046; 80053; 80061; 82962; 83735; 83874; 83880; 84484; 85025; 85610; 85730; 86141; 93005; 93041; 93306; 96360; 99211; G0378

== ENCOUNTER → 2018-01-21 | Outpatient (CLI) | payer MEDICARE ==
[~2018-01-21] MED LIST changes: +AZIT250T12 PO; +DIAZ5TAB3 PO; +ERGO50006 PO; +FLUT16SP22 NS; +LISI-556 PO
== END ==
LOC: PREOP 05:39
PROVIDERS: ATTEND Surgery
DX: Z01.818 Encounter for other preprocedural examination (principal)

== ENCOUNTER → 2018-01-28 | Outpatient (CLI) | payer MEDICARE ==
--- NOTE | 2018-01-28 18:26 | Diagnostic Imaging Report ---
PROCEDURE: CT left lower extremity without contrast. TECHNIQUE: Multiple contiguous axial images were obtained through the left lower extremity without the use of intravenous contrast. Sagittal and coronal reformations were then performed. INDICATION: Fall with medial knee pain. The alignment is normal. There is a small knee joint effusion. There is chondrocalcinosis of the medial and lateral compartments compatible with degenerative change. There is some calcification along the medial collateral ligaments as well as the ACL. No fractures are seen. No dislocation is identified. IMPRESSION: Small knee joint effusion and chronic degenerative changes. No acute fracture is detected. Dictated by: Dictated on workstation # [id number]
== END ==
LOC: RAD 12:48
PROVIDERS: ATTEND Physician Assistant
DX: M17.12 Unilateral primary osteoarthritis, left knee (principal)
CPT/HCPCS: 73700

== ENCOUNTER 2018-02-03 14:37 | Observation (INO) | payer MEDICARE ==
[~2018-02-03] VITALS: Ht 167.6 cm; Wt 93.5 kg
[2018-02-03 15:00] VITALS: BP 130/58
[2018-02-03] MEDS: NS IV 1000 ML 1,000 ML IV SCH ×2 (15:30→20:31)
--- NOTE | 2018-02-03 15:49 | History & Physical-Hospitalist ---
History of Present Illness HPI/Chief Complaint This is a 77-year-old white female with a long-standing history of type 11 diabetes on insulin well known to me. I was called by Dr. Robertson who notes that she has had increased dizziness and weakness anorexia and has evidence of a urinary tract infection. In addition she has been slightly hypotensive at his office. The patient at the time of my interview is awake and alert and notes that she feels a little bit better now. Her blood sugar was in 240s over Dr. Robertson's office about an hour ago. She hasn't eaten yet today. She notes increased urinary traction infections and feels like she may have a urinary tract infection currently. She denies having any syncope although Dr. Robertson had said that she had almost passed out. She does have a history of sick sinus syndrome and has a pacemaker. She had held her Toprol today because of hypotension. UA tentatively shows greater than 10 to the fifth Escherichia coli Source: patient Exam Limitations: no limitations Date Seen 02/03/18 Time Seen by Provider: 15:30 Attending Physician Rosmery Abraham MD PCP Joe Robertson MD Referring Physician Date of Admission Feb 03, 2018 at 15:00 Home Medications & Allergies Home Medications Reviewed patient Home Medication Reconciliation performed by pharmacy medication reconciliations certified pest control technician and/or nursing. Patients Allergies have been reviewed. Allergies Allergies Coded Allergies sulfamethoxazole (Verified Allergy, Intermediate, 10/05/15) tramadol (Verified Allergy, Intermediate, 10/05/15) trimethoprim (Verified Allergy, Intermediate, 10/05/15) Penicillins (Verified Allergy, Unknown, 10/05/15) codeine (Verified Allergy, Unknown, CAN TAKE MORPHINE, 10/05/15) hydrocodone (Verified Allergy, Unknown, 10/05/15) amiodarone (Verified Adverse Reaction, Mild, NAUSEA, dizziness, 02/01/16) Past Exvgdrr-Luiplr-Pdvact Hx Past Med/Social Hx: Reviewed Nursing Past Med/Soc Hx Patient Social History Marrital Status: Employed/Student: employed (At [employer]) 2nd Hand Smoke Exposure: No Recent Foreign Travel: No Contact w/other who traveled: No Recent Hopitalizations: Yes (op testing) Immunizations Up To Date Tetanus Booster (TDap): Less than 5yrs Date of Pneumonia Vaccine: Apr 23, 2017 Date of Influenza Vaccine: May 01, 2016 Seasonal Allergies Seasonal Allergies: No Past Medical History Surgeries: Cardiac, Coronary Stent, Gallbladder, Hysterectomy, Orthopedic, Pacemaker, Vascular Surgery Currently Using CPAP: No Currently Using BIPAP: No Cardiac: Chronic Edema/Swelling, Coronary Artery Disease, Heart Attack, Heart Murmur, High Cholesterol, Hypertension, Peripheral Vascular Neurological: Neuropathy, TIA Reproductive: No Sexually Transmitted Disease: No Hysterectomy, Menopausal Genitourinary: Bladder Infection, UTI-Chronic Gastrointestinal: Irritable Bowel Endocrine: Diabetes, Insulin dep HEENT: Cataract Loss of Vision: Right Hearing Impairment: Deaf Cancer: Breast Did You Recieve Any Treatments: Yes What Type of Treatment Did You: Radiation History of Blood Disorders: No Adverse Reaction to Blood High: No Family History Cardiovascular disease 19 MOTHER G8 SISTER Completed stroke 19 FATHER G8 SISTER Diabetes mellitus 19 FATHER G8 SISTER G8 SISTER FH: cancer G8 SISTER G8 SISTER Myocardial infarction G8 BROTHER (65 YEARS OLD) Review of Systems Constitutional: dizziness, malaise, weakness EENTM: no symptoms reported Respiratory: no symptoms reported Cardiovascular: see HPI Gastrointestinal: no symptoms reported Genitourinary: frequency, incontinence Musculoskeletal: joint swelling (Left knee) Skin: no symptoms reported Psychiatric/Neurological: Weakness Physical Exam Physical Exam Vital Signs Vital Signs - First Documented 02/03/18 15:00 Temp 97.5 Pulse 96 Resp 22 B/P (MAP) 130/58 (82) Pulse Ox 97 O2 Delivery Room Air Capillary Refill : Height, Weight, BMI Height: 5'6.00" Weight: 194lbs. 3.0oz. [id number]; 31.3 BMI Method:Stated General Appearance: No Apparent Distress, WD/WN Eyes: Bilateral Eye Normal Inspection HEENT: Normal ENT Inspection Neck: Full Range of Motion, Normal Inspection, Non Tender, Supple Respiratory: Chest Non Tender, Lungs Clear, Normal Breath Sounds, No Accessory Muscle Use, No Respiratory Distress Cardiovascular: Regular Rate, Rhythm, No Edema, No Gallop, No JVD, Normal Peripheral Pulses, Systolic Murmur Gastrointestinal: Normal Bowel Sounds, No Organomegaly, Non Tender, Soft Back: Normal Inspection Extremity: Normal Capillary Refill, Normal Inspection, Normal Range of Motion, Non Tender, No Calf Tenderness, Slow Capillary Refill Neurologic/Psychiatric: Alert, Oriented x3, No Motor/Sensory Deficits, Normal Mood/Affect Skin: Normal Color, Warm/Dry Results Results/Procedures Labs Laboratory Tests 02/03/18 16:10 02/04/18 09:55 Patient resulted labs reviewed. Assessment/Plan Admission Diagnosis Dizziness Weakness Urinary tract infection-acute on chronic Dehydration Hypotension Type II diabetes on insulin Chronic renal insufficiency Coronary artery disease Sick sinus syndrome with a history of pacemaker placement Plan to admit for IV fluids IV antibiotics and further evaluation. Admission Status: Observation Copy Copies To 1: JOE ROBERTSON MD, KATHLEEN M MD Feb 03, 2018 15:49
[2018-02-03] MEDS ORDERED: CEFUROXIME INJECTION 750 MG in NS (IVPB) 50 ML IV SCH (16:00)
[2018-02-03 16:17] LABS: BILIRUBIN,URINE NEGATIVE (NEGATIVE); CLARITY,URINE CLEAR; COLOR,URINE YELLOW; GLUCOSE, URINE (UA) 1+ (NEGATIVE); KETONES,URINE NEGATIVE (NEGATIVE); LEUKOCYTE ESTERASE ,URINE 1+ (NEGATIVE); NITRITE,URINE NEGATIVE (NEGATIVE); PH,URINE 8 (5-9); PROTEIN,URINE NEGATIVE (NEGATIVE); UROBILINOGEN,URINE NORMAL (NORMAL)
[2018-02-03 16:23] LABS: BACTERIA,URINE LARGE /HPF; SQUAMOUS EPITHELIAL CELL,UR 0-2 /HPF
[2018-02-03 16:24] LABS: BASOPHILS % (AUTO) 0 % (0-10); EOSINOPHILS # (AUTO) 0.1 10^3/uL (0.0-0.3); EOSINOPHILS % (AUTO) 1 % (0-10); HEMATOCRIT 45 % (35-52); HEMOGLOBIN 15.6 G/DL (11.5-16.0); LYMPHOCYTES # (AUTO) 2.2 X 10^3 (1.0-4.0); LYMPHOCYTES % (AUTO) 26 % (12-44); MEAN CORPUSCULAR HEMOGLOBIN 28 PG (25-34); MEAN CORPUSCULAR HGB CONC 34 G/DL (32-36); MEAN CORPUSCULAR VOLUME 82 FL (80-99); MEAN PLATELET VOLUME 9.9 FL (7.4-10.4); MONOCYTES # (AUTO) 0.7 X 10^3 (0.0-1.0); MONOCYTES % (AUTO) 9 % (0-12); NEUTROPHILS # (AUTO) 5.4 X 10^3 (1.8-7.8); NEUTROPHILS % (AUTO) 64 % (42-75); PLATELET COUNT 261 10^3/uL (130-400); RED BLOOD COUNT 5.55 10^6/uL (4.35-5.85); WHITE BLOOD COUNT 8.4 10^3/uL (4.3-11.0)
[2018-02-03 16:44] LABS: BILIRUBIN,TOTAL 0.7 MG/DL (0.1-1.0); CALCIUM 9.9 MG/DL (8.5-10.1); CREATININE SERUM 1.72 MG/DL (0.60-1.30); MAGNESIUM 1.8 MG/DL (1.8-2.4); POTASSIUM 4.1 MMOL/L (3.6-5.0); TOTAL PROTEIN 7.8 GM/DL (6.4-8.2)
[2018-02-03] MEDS ORDERED: inSUlin DETERMIR 1 UNIT/0.01 ML (LEVEMIR) CHARGE PER UNIT SQ PRN (17:15)
[2018-02-03] MEDS ORDERED: DIAZEPAM 5 MG (VALIUM) TABLET PO PRN (17:30)
[2018-02-03] MEDS ORDERED: NITROGLYCERIN 0.4 MG SL TABS BTL 25'S SL PRN (17:30)
[2018-02-03] MEDS: ENOXAPARIN 30 MG/0.3 ML (LOVENOX) SYR SC SCH (18:17)
[2018-02-03 19:20] VITALS: BP 132/56
[2018-02-03] MEDS: CEFEPIME INJECTION 2,000 MG in NS (IVPB) 50 ML IV SCH (20:28)
[2018-02-03] MEDS ORDERED: ROSUVASTATIN 20 MG (CRESTOR) TABLET PO SCH (21:00)
[2018-02-03] MEDS ORDERED: NON-FORMULARY MEDICATION 1 EA EA (Liraglutide (Victoza 3-Pak) 1.2 MG) SQ SCH (21:00)
[2018-02-03] MEDS ORDERED: KCL 10 MEQ TAB (MICRO K) PO SCH (21:00)
[2018-02-03] MEDS ORDERED: PANTOPRAZOLE 40 MG (PROTONIX) TAB PO SCH (21:00)
[2018-02-04 00:18] VITALS: BP 139/64
[2018-02-04] MEDS: NS IV 1000 ML 1,000 ML IV SCH ×6 (00:52→23:46)
[2018-02-04 04:29] VITALS: BP 127/59
[2018-02-04 08:49] VITALS: BP 130/60
[2018-02-04] MEDS ORDERED: ASPIRIN E.C. 81 MG (ECOTRIN) TAB PO SCH (09:00)
[2018-02-04] MEDS ORDERED: CLOPIDOGREL 75 MG (PLAVIX) TABLET PO SCH (09:00)
[2018-02-04] MEDS: CEFEPIME INJECTION 2,000 MG in NS (IVPB) 50 ML IV SCH ×2 (09:12→20:34)
[2018-02-04] MEDS ORDERED: PATIENT MAY USE OWN MEDS, ALL MC SCH (09:15)
[2018-02-04 10:07] LABS: BASOPHILS % (AUTO) 0 % (0-10); EOSINOPHILS # (AUTO) 0.2 10^3/uL (0.0-0.3); EOSINOPHILS % (AUTO) 2 % (0-10); HEMATOCRIT 43 % (35-52); HEMOGLOBIN 14.1 G/DL (11.5-16.0); LYMPHOCYTES # (AUTO) 2.4 X 10^3 (1.0-4.0); LYMPHOCYTES % (AUTO) 33 % (12-44); MEAN CORPUSCULAR HEMOGLOBIN 28 PG (25-34); MEAN CORPUSCULAR HGB CONC 33 G/DL (32-36); MEAN CORPUSCULAR VOLUME 85 FL (80-99); MEAN PLATELET VOLUME 9.8 FL (7.4-10.4); MONOCYTES # (AUTO) 0.8 X 10^3 (0.0-1.0); MONOCYTES % (AUTO) 10 % (0-12); NEUTROPHILS # (AUTO) 4.1 X 10^3 (1.8-7.8); NEUTROPHILS % (AUTO) 55 % (42-75); PLATELET COUNT 234 10^3/uL (130-400); RED CELL DISTRIBUTION WIDTH 15.5 % (10.0-14.5); WHITE BLOOD COUNT 7.4 10^3/uL (4.3-11.0)
[2018-02-04] MEDS: ASPIRIN E.C. 81 MG (ECOTRIN) TAB PO SCH (10:16)
[2018-02-04] MEDS: CLOPIDOGREL 75 MG (PLAVIX) TABLET PO SCH (10:17)
[2018-02-04 10:26] LABS: ALBUMIN 3.5 GM/DL (3.2-4.5); BILIRUBIN,TOTAL 0.6 MG/DL (0.1-1.0); CALCIUM 9.1 MG/DL (8.5-10.1); CREATININE SERUM 1.62 MG/DL (0.60-1.30); POTASSIUM 3.9 MMOL/L (3.6-5.0); TOTAL PROTEIN 6.8 GM/DL (6.4-8.2)
--- NOTE | 2018-02-04 10:52 | Progress Note-Hospitalist ---
Subjective HPI/CC On Admission Date Seen by Provider: Feb 04, 2018 Time Seen by Provider: 10:00 This is a 77-year-old white female with a long-standing history of type 11 diabetes on insulin well known to me. I was called by Dr. Gonzales who notes that she has had increased dizziness and weakness anorexia and has evidence of a urinary tract infection. In addition she has been hot hypotensive. The patient at the time of my interview is awake and alert and notes that she feels a little bit better now. Her blood sugar was in 240s over Dr. Gonzales's office about an hour ago. She hasn't eaten yet today. She notes increased urinary traction infections and feels like she may have a urinary tract infection currently. She denies having any syncope although Dr. Gonzales had said that she had almost passed out. She does have a history of sick sinus syndrome and has a pacemaker. She had held her Toprol today because of hypotension Subjective/Events-last exam Patient is feeling better. Dizziness is been resolving lactic acid was elevated and is gone back down to normal. She's been done on 250 mL an hour of normal saline overnight. She had a low-grade temperature of 99. She complains of urinary frequency but no dysuria. She is anxious to go home. Mag lab has greater than 10 to the fifth gram-negative negative rods but no species Review of Systems Neurological: Weakness Focused Exam Sepsis Stage: Sepsis Possible Source: Genitouriary Lactate Level 02/03/18 16:10: Lactic Acid Level 2.87*H 02/03/18 18:10: Lactic Acid Level 1.95 Respiratory: Chest Non Tender, Lungs Clear, Normal Breath Sounds, No Accessory Muscle Use, No Respiratory Distress Cardiovascular: Regular Rate, Rhythm, No Edema, No Gallop, No JVD, Normal Peripheral Pulses Capillary Refill: Less Than 3 Seconds Peripheral Pulses: 2+ Carotid (R), 2+ Carotid (L), 2+ Femoral (R), 2+ Femoral ( L), 2+ Dorsalis Pedis (R), 2+ Left Dors-Pedis (L), 2+ Radial Pulses (R), 2+ Radial Pulses (L) Skin: normal color, warm/dry Objective Exam Vital Signs Vital Signs Date Time Temp Pulse Resp B/P (MAP) Pulse Ox O2 Delivery O2 Flow Rate FiO2 02/04/18 08:49 96.3 77 20 130/60 (83) 94 Room Air Capillary Refill : General Appearance: No Apparent Distress, WD/WN HEENT: PERRL/EOMI, TMs Normal, Normal ENT Inspection, Pharynx Normal Neck: Full Range of Motion, Normal Inspection, Non Tender, Supple Respiratory: Chest Non Tender, Lungs Clear, Normal Breath Sounds, No Accessory Muscle Use, No Respiratory Distress Cardiovascular: Regular Rate, Rhythm, No Gallop, No Murmur, Normal Peripheral Pulses Gastrointestinal: Normal Bowel Sounds, No Pulsatile Mass, Non Tender, Soft Rectal: Deferred Back: Normal Inspection, No CVA Tenderness, No Vertebral Tenderness Extremity: Normal Capillary Refill, Normal Inspection, Normal Range of Motion, Non Tender Results/Procedures Lab Laboratory Tests 02/03/18 16:10 02/04/18 09:55 Patient resulted labs reviewed. Assessment/Plan Assessment and Plan Assess & Plan/Chief Complaint Sepsis as evidenced by fever elevated lactic acid- organism is gram-negative rods in the urine blood pressure stable day number 2 cefepime Urinary tract infection Type II diabetes on insulin with good control Elevated creatinine with stage III renal insufficiency stable Plan for increased activity decrease IV fluid rate discharge planning for tomorrow awaiting species on UA Clinical Quality Measures DVT/VTE Risk/Contraindication: Risk Factor Score Per Nursin RFS Level Per Nursing on Admit: 4+=Very High PRISCILLA HAGEN MD Feb 04, 2018 10:52
[2018-02-04 12:30] VITALS: BP 147/60
[2018-02-04 15:25] VITALS: BP 126/65
[2018-02-04] MEDS: ENOXAPARIN 30 MG/0.3 ML (LOVENOX) SYR SC SCH (18:12)
[2018-02-04 19:00] VITALS: BP 124/60
[2018-02-04] MEDS ORDERED: PANTOPRAZOLE 40 MG (PROTONIX) TAB PO SCH (21:00)
[2018-02-04] MEDS ORDERED: ROSUVASTATIN 20 MG (CRESTOR) TABLET PO SCH (21:00)
[2018-02-05] VITALS: BP 144/82
[2018-02-05 03:32] VITALS: BP 122/58
[2018-02-05 06:42] LABS: BASOPHILS % (AUTO) 0 % (0-10); EOSINOPHILS # (AUTO) 0.2 10^3/uL (0.0-0.3); EOSINOPHILS % (AUTO) 3 % (0-10); HEMATOCRIT 39 % (35-52); HEMOGLOBIN 13.1 G/DL (11.5-16.0); LYMPHOCYTES # (AUTO) 2.4 X 10^3 (1.0-4.0); LYMPHOCYTES % (AUTO) 33 % (12-44); MEAN CORPUSCULAR HEMOGLOBIN 29 PG (25-34); MEAN CORPUSCULAR HGB CONC 34 G/DL (32-36); MEAN CORPUSCULAR VOLUME 85 FL (80-99); MEAN PLATELET VOLUME 10.4 FL (7.4-10.4); MONOCYTES # (AUTO) 0.7 X 10^3 (0.0-1.0); MONOCYTES % (AUTO) 10 % (0-12); NEUTROPHILS # (AUTO) 4.1 X 10^3 (1.8-7.8); NEUTROPHILS % (AUTO) 55 % (42-75); PLATELET COUNT 206 10^3/uL (130-400); RED BLOOD COUNT 4.56 10^6/uL (4.35-5.85); RED CELL DISTRIBUTION WIDTH 14.9 % (10.0-14.5); WHITE BLOOD COUNT 7.5 10^3/uL (4.3-11.0)
[2018-02-05 06:59] LABS: ALBUMIN 3.3 GM/DL (3.2-4.5); BILIRUBIN,TOTAL 0.4 MG/DL (0.1-1.0); CALCIUM 8.8 MG/DL (8.5-10.1); CREATININE SERUM 1.28 MG/DL (0.60-1.30); POTASSIUM 4.2 MMOL/L (3.6-5.0); TOTAL PROTEIN 6.1 GM/DL (6.4-8.2)
[2018-02-05] MEDS ORDERED: KCL 20 MEQ TAB (K-DUR) PO SCH (07:00)
[2018-02-05 08:00] VITALS: BP 147/75
[2018-02-05] MEDS: ASPIRIN E.C. 81 MG (ECOTRIN) TAB PO SCH (08:57)
[2018-02-05] MEDS: CLOPIDOGREL 75 MG (PLAVIX) TABLET PO SCH (08:58)
[2018-02-05] MEDS ORDERED: CEFEPIME INJECTION 2,000 MG in NS (IVPB) 50 ML IV SCH (09:00)
[2018-02-05] MEDS: NS IV 1000 ML 1,000 ML IV SCH (09:05)
[2018-02-05] MEDS ORDERED: CEFD300C3 PO (10:45)
--- NOTE | 2018-02-05 10:55 | Discharge Summary-Hospitalist ---
Diagnosis/Chief Complaint Date of Admission Feb 03, 2018 at 15:00 Date of Discharge 02/05/18 Discharge Date: Feb 05, 2018 Discharge Time: 11:00 Admission Diagnosis Dizziness Weakness Urinary tract infection-acute on chronic Dehydration Hypotension Type II diabetes on insulin Chronic renal insufficiency Coronary artery disease Sick sinus syndrome with a history of pacemaker placement Plan to admit for IV fluids IV antibiotics and further evaluation. Discharge Diagnosis Urinary tract infection with Escherichia coli Dehydration Dizziness resolved Sepsis secondary to number 1 Type II diabetes on insulin Hypertension Coronary artery disease History of sick sinus syndrome status post pacemaker Renal insufficiency stage 2 to 3 Discharge Summary Procedures/Consulations None Discharge Physical Exam Allergies: Coded Allergies: sulfamethoxazole (Verified Allergy, Intermediate, 10/05/15) tramadol (Verified Allergy, Intermediate, 10/05/15) trimethoprim (Verified Allergy, Intermediate, 10/05/15) Penicillins (Verified Allergy, Unknown, 10/05/15) codeine (Verified Allergy, Unknown, CAN TAKE MORPHINE, 10/05/15) hydrocodone (Verified Allergy, Unknown, 10/05/15) amiodarone (Verified Adverse Reaction, Mild, NAUSEA, dizziness, 02/01/16) Vitals & I&Os Vital Signs Date Time Temp Pulse Resp B/P (MAP) Pulse Ox O2 Delivery O2 Flow Rate FiO2 02/05/18 08:00 96.2 79 18 147/75 (99) 97 Room Air General Appearance: Alert, Oriented X3, Cooperative HEENT: PERRLA Respiratory: Clear to Auscultation, Normal Air Movement Cardiovascular: Regular Rate, Normal S1, Normal S2 Abdominal: Normal Bowel Sounds, Soft, No Tenderness Extremities: No Clubbing, No Cyanosis, No Edema Skin: No Rashes, No Breakdown Neuro: Normal Gait, Normal Speech, Strength at 5/5 X4 Ext Psych/Mental Status: Mental Status NL Hospital Course 77-year-old white female was admitted directly from Dr. Robertson's office with near-syncope low blood pressure and dizziness. He had obtained a year a that showed evidence of a urinary tract infection. The patient had a repeat UA here with cultures that were sent to [facility] results of which are still pending in terms of sensitivity but Escherichia coli is the dominant organism. The patient was aggressively hydrated with fluids and started on cefepime. Lactic acid was elevated and went back down to normal in 6 hours. The patient was never hypotensive here. Blood sugars were followed and the patient took her own insulin via the pump that she had and were largely in the 100s without hypoglycemia. At the time of discharge the patient is feeling much much better and anxious to go home. She is discharged on Omnicef 300 twice a day for 7 more days. Labs (last 24 hrs) Laboratory Tests 02/04/18 10:57: Glucometer 122H 02/04/18 16:03: Glucometer 154H 02/04/18 20:42: Glucometer 133H 02/05/18 05:11: Glucometer 96 02/05/18 05:47: White Blood Count 7.5, Red Blood Count 4.56, Hemoglobin 13.1, Hematocrit 39, Mean Corpuscular Volume 85, Mean Corpuscular Hemoglobin 29, Mean Corpuscular Hemoglobin Concent 34, Red Cell Distribution Width 14.9H, Platelet Count 206, Mean Platelet Volume 10.4, Neutrophils (%) (Auto) 55, Lymphocytes (%) (Auto) 33 , Monocytes (%) (Auto) 10, Eosinophils (%) (Auto) 3, Basophils (%) (Auto) 0, Neutrophils # (Auto) 4.1, Lymphocytes # (Auto) 2.4, Monocytes # (Auto) 0.7, Eosinophils # (Auto) 0.2, Basophils # (Auto) 0.0, Sodium Level 138, Potassium Level 4.2, Chloride Level 107, Carbon Dioxide Level 20L, Anion Gap 11, Blood Urea Nitrogen 23H, Creatinine 1.28, Estimat Glomerular Filtration Rate 40, BUN/ Creatinine Ratio 18, Glucose Level 99, Calcium Level 8.8, Total Bilirubin 0.4, Aspartate Amino Transf (AST/SGOT) 17, Alanine Aminotransferase (ALT/SGPT) 8, Alkaline Phosphatase 58, Total Protein 6.1L, Albumin 3.3 Microbiology 02/03/18 Blood Culture - Preliminary, Resulted No growth 02/03/18 Urine Culture - Preliminary, Resulted Sent To [facility] Patient resulted labs reviewed. Pending Labs Laboratory Tests 02/05/18 05:11: Glucometer 96 02/05/18 05:47: White Blood Count 7.5, Red Blood Count 4.56, Hemoglobin 13.1, Hematocrit 39, Mean Corpuscular Volume 85, Mean Corpuscular Hemoglobin 29, Mean Corpuscular Hemoglobin Concent 34, Red Cell Distribution Width 14.9, Platelet Count 206, Mean Platelet Volume 10.4, Neutrophils (%) (Auto) 55, Lymphocytes (%) (Auto) 33 , Monocytes (%) (Auto) 10, Eosinophils (%) (Auto) 3, Basophils (%) (Auto) 0, Neutrophils # (Auto) 4.1, Lymphocytes # (Auto) 2.4, Monocytes # (Auto) 0.7, Eosinophils # (Auto) 0.2, Basophils # (Auto) 0.0, Sodium Level 138, Potassium Level 4.2, Chloride Level 107, Carbon Dioxide Level 20, Anion Gap 11, Blood Urea Nitrogen 23, Creatinine 1.28, Estimat Glomerular Filtration Rate 40, BUN/ Creatinine Ratio 18, Glucose Level 99, Calcium Level 8.8, Total Bilirubin 0.4, Aspartate Amino Transf (AST/SGOT) 17, Alanine Aminotransferase (ALT/SGPT) 8, Alkaline Phosphatase 58, Total Protein 6.1, Albumin 3.3 Discussion & Recommendations Discharge Planning: >30 minutes discharge planning Discharge Home Medications: Active Scripts Active Cefdinir 300 Mg Capsule 300 Mg PO BID 7 Days Reported Diazepam 5 Mg Tablet 5 Mg PO DAILY PRN Vitamin D2 (Ergocalciferol (Vitamin D2)) 50,000 Unit Capsule 50,000 Units PO TU Cyanocobalamin Injection (Cyanocobalamin) 1,000 Mcg/Ml Inj 1,000 Mcg IJ MONTHLY Imodium A-D (Loperamide HCl) 2 Mg Tablet PO UD PRN Victoza 3-Luis Enrique (Liraglutide) 0.6 Mg/0.1 Ml Pen.injctr 1.2 Mg SQ HS Torsemide 100 Mg Tablet 100 Mg PO DAILY Klor-Con M20 (Potassium Chloride) 20 Meq Tab.er.prt 10 Meq PO BID LAST FILLED #30 12-21-17 TAKES 1/2 (20MEQ) TABLET Metoprolol Succinate 25 Mg Tab.er.24h 12.5 Mg PO DAILY TAKES 1/2 (25MG) TABLET Aspirin EC (Aspirin) 81 Mg Tablet.dr 81 Mg PO DAILY Crestor (Rosuvastatin Calcium) 20 Mg Tablet 20 Mg PO HS LAST FILLED #90 09-07-17 Levemir Flextouch (Insulin Detemir) 100 Unit/1 Ml Insuln.pen 10-15 Units SQ HS PRN Nitrostat (Nitroglycerin) 0.4 Mg Tab.subl 0.4 Mg SL UD PRN Pantoprazole Sodium 40 Mg Tablet.dr 40 Mg PO HS Clopidogrel (Clopidogrel Bisulfate) 75 Mg Tablet 75 Mg PO DAILY Novolog (Insulin Aspart) 100 Unit/1 Ml Susp PER INSULIN PUMP Condition at discharge Stable Instructions to patient/family Please see electronic discharge instructions given to patient. Clinical Quality Measures Admission Status Admission Status: Observation DVT/VTE Risk/Contraindication: VTE Addressed: Yes Risk Factor Score Per Nursin RFS Level Per Nursing on Admit: 4+=Very High Copy Copies To 1: JOE ROBERTSON MD, KATHLEEN M MD Feb 05, 2018 10:55
== END 2018-02-05 10:42 | disposition home or self-care (01) ==
LOC: 4TH 15:00
PROVIDERS: ADMIT Internal Medicine; ATTEND Internal Medicine
DX: A41.51 Sepsis due to Escherichia coli [E. coli] (principal); N39.0 Urinary tract infection, site not specified; E86.0 Dehydration; R42 Dizziness and giddiness; E11.9 Type 2 diabetes mellitus without complications; I12.9 Hypertensive chronic kidney disease with stage 1 through stage 4 chronic kidney disease, or unspecified chronic kidney disease; I25.10 Atherosclerotic heart disease of native coronary artery without angina pectoris; N18.3 Chronic kidney disease, stage 3 (moderate); Z79.4 Long term (current) use of insulin; Z95.0 Presence of cardiac pacemaker
CPT/HCPCS: 36415; 80053; 81000; 82962; 83605; 83735; 85025; 85379; 87040; 87077; 87088; 87186; 93005; 99211; G0378

== ENCOUNTER → 2018-04-28 | Outpatient (CLI) | payer MEDICARE ==
--- NOTE | 2018-04-28 12:14 | Diagnostic Imaging Report ---
INDICATION: Screening. The current study was also evaluated with a Computer Aided Detection (CAD) system. 3-D tomosynthesis was also performed and reviewed. COMPARISON: Comparison made with prior examinations from 08/12/2016 back through 07/28/2011. FINDINGS: There are stable post-therapeutic changes in the left breast. There are vascular and benign-type calcifications. There is no new dominant mass, spiculated lesion, or suspicious calcification identified. IMPRESSION: Benign. ACR BI-RADS Category 2: Benign findings. Result letter will be mailed to the patient. Note: At least 10% of breast cancer is not imaged by mammography. Dictated by: Dictated on workstation # [id number]
== END ==
LOC: RAD 10:02
PROVIDERS: ATTEND Nurse Practitioner Adult Health
DX: Z12.31 Encounter for screening mammogram for malignant neoplasm of breast (principal); C50.512 Malignant neoplasm of lower-outer quadrant of left female breast
CPT/HCPCS: 77067

== ENCOUNTER → 2018-06-14 | Outpatient (CLI) | payer MEDICARE ==
--- NOTE | 2018-06-14 13:31 | Diagnostic Imaging Report ---
INDICATION: Chronic kidney disease. FINDINGS: Images of the bladder demonstrate prevoid volume of 426 mL. No bladder wall thickening or mass is seen. Postvoid volume is 45 mL. Ureteral jets are visualized. IMPRESSION: Small postvoid residual bladder volume. Dictated by: Dictated on workstation # [id number]
--- NOTE | 2018-06-14 13:33 | Diagnostic Imaging Report ---
INDICATION: Chronic renal disease. Bilateral renal sonography is performed in the routine fashion. The right kidney measures 10.5 x 4.3 x 5.0 cm. The left kidney measures 11.7 x 5.6 x 3.9 cm. There is no significant hydronephrosis. There is some mild cortical thinning of both kidneys. Urinary bladder is unremarkable with initial volume of 426 cc with moderate postvoid residual of 45 cc. IMPRESSION: Normal-sized kidneys bilaterally with some mild cortical thinning. No hydronephrosis or overt mass. Urinary bladder appears unremarkable with a moderate postvoid residual. Dictated by: Dictated on workstation # [id number]
== END ==
LOC: RAD 12:32
PROVIDERS: ATTEND Nurse Practitioner
DX: E11.22 Type 2 diabetes mellitus with diabetic chronic kidney disease (principal); I12.9 Hypertensive chronic kidney disease with stage 1 through stage 4 chronic kidney disease, or unspecified chronic kidney disease; N18.3 Chronic kidney disease, stage 3 (moderate); I25.10 Atherosclerotic heart disease of native coronary artery without angina pectoris; E78.5 Hyperlipidemia, unspecified; K21.9 Gastro-esophageal reflux disease without esophagitis; E87.2 Acidosis; N25.81 Secondary hyperparathyroidism of renal origin; E87.3 Alkalosis
CPT/HCPCS: 76770; 76857

== ENCOUNTER → 2018-06-16 | Day surgery (SDC) | payer MEDICARE ==
[~2018-06-16] VITALS: Ht 167.6 cm; Wt 93.5 kg
[~2018-06-16] MED LIST changes: +HEParin (CATH LAB) 0 ML IV ONE; +LIDOCAINE 1% INJ 20 ML 20 ML VIAL ONE; +NS IV 1000 ML 1,000 ML IV SCH
--- OUTSIDE RECORDS SUMMARY | 2018-06-16 06:39 | XMS REPORT | Clinical Summary ---
Author Author [facility] Organization [facility] Address Unknown Phone Unavailable Care Team Providers Care Production Planning Manager Name Role Phone PCP Unavailable Allergies Not on File Current Medications Not on file Active Problems Not on file Social History Tobacco Use Types Packs/Day Years Used Date Never Assessed Sex Assigned at Date Recorded Not on file Last Filed Vital Signs Not on file Plan of Treatment Not on file Results Not on filefrom Last 3 Months
--- OUTSIDE RECORDS SUMMARY | 2018-06-16 06:44 | XMS REPORT | Continuity of Care Document ---
Author Author [facility] Organization [facility] Address Unknown Phone Unavailable Allergies Active Description Code Type Severity Reaction Onset Reported/Identified Relationship to Patient Clinical Status Yes sulfamethoxazole [id number] Drug Allergy Moderate N/A 10/05/2015 Yes tramadol [id number] Drug Allergy Moderate N/A 10/05/2015 Yes trimethoprim [id number] Drug Allergy Moderate N/A 10/05/2015 Yes codeine [id number] Drug Allergy Unknown CAN TAKE MORPHI 10/05/2015 Yes hydrocodone [id number] Drug Allergy Unknown N/A 10/05/2015 Yes Penicillins [id number] Drug Allergy Unknown N/A 10/05/2015 Yes amiodarone [id number] Drug Allergy Unknown NAUSEA, dizzine 12/05/2015 Yes amiodarone [id number] Drug Allergy Mild NAUSEA, dizzine 02/01/2016 Medications There is no data. 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 06/18/1199 JOE ROBERTSON MD Ot 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 08/08/2014 NAOMY KING CONSTRUCTION MANAGEMENT ASSISTANT Ot 174.9 08/29/2014 ANTHONY GARZA Ot 174.9 08/29/2014 ANTHONY GARZA Ot V76.11 08/31/2014 ANTHONY GARZA N Ot 174.9 08/31/2014 ANTHONY GARZA Ot V76.11 08/31/2014 NAOMY KING CONSTRUCTION MANAGEMENT ASSISTANT Ot 174.9 08/31/2014 NAOMY KING CONSTRUCTION MANAGEMENT ASSISTANT Ot 250.00 08/31/2014 NAOMY KING CONSTRUCTION MANAGEMENT ASSISTANT Ot 585.3 08/31/2014 NAOMY KING CONSTRUCTION MANAGEMENT ASSISTANT Ot V15.3 08/31/2014 NAOMY KING CONSTRUCTION MANAGEMENT ASSISTANT Ot V58.67 08/31/2014 NAOMY KING CONSTRUCTION MANAGEMENT ASSISTANT Ot V58.69 08/31/2014 ANTHONY GARZA N Ot 174.9 08/31/2014 ANTHONY GARZA N Ot V76.11 08/31/2014 NAOMY KING S CONSTRUCTION MANAGEMENT ASSISTANT Ot 174.9 08/31/2014 KINGNAOMY Diaz S CONSTRUCTION MANAGEMENT ASSISTANT Ot 250.00 08/31/2014 KINGNAOMY Diaz S CONSTRUCTION MANAGEMENT ASSISTANT Ot 585.3 08/31/2014 KINGNAOMY Diaz S CONSTRUCTION MANAGEMENT ASSISTANT Ot V15.3 08/31/2014 KINGNAOMY Diaz S CONSTRUCTION MANAGEMENT ASSISTANT Ot V58.67 08/31/2014 KINGNAOMY Diaz S CONSTRUCTION MANAGEMENT ASSISTANT Ot V58.69 09/13/2014 NAOMY KING S CONSTRUCTION MANAGEMENT ASSISTANT Ot 174.9 09/13/2014 NAOMY KING S CONSTRUCTION MANAGEMENT ASSISTANT Ot 250.00 09/13/2014 NAOMY KING S CONSTRUCTION MANAGEMENT ASSISTANT Ot 585.3 09/13/2014 NAOMY KING S CONSTRUCTION MANAGEMENT ASSISTANT Ot V15.3 09/13/2014 NAOMY KING S CONSTRUCTION MANAGEMENT ASSISTANT Ot V58.67 09/13/2014 NAOMY KING S CONSTRUCTION MANAGEMENT ASSISTANT Ot V58.69 12/25/2014 ANTHONY GARZA N Ot 174.9 12/25/2014 ANTHONY GARZA N Ot V76.11 12/25/2014 NAOMY KING S CONSTRUCTION MANAGEMENT ASSISTANT Ot 174.9 12/25/2014 KINGNAOMY Diaz S CONSTRUCTION MANAGEMENT ASSISTANT Ot 250.00 12/25/2014 KINGNAOMY Diaz S CONSTRUCTION MANAGEMENT ASSISTANT Ot 585.3 12/25/2014 KINGNAOMY Diaz S CONSTRUCTION MANAGEMENT ASSISTANT Ot V15.3 12/25/2014 KINGNAOMY Diaz S CONSTRUCTION MANAGEMENT ASSISTANT Ot V58.67 12/25/2014 KINGNAOMY S CONSTRUCTION MANAGEMENT ASSISTANT Ot V58.69 12/25/2014 KINGNAOMY Diaz S CONSTRUCTION MANAGEMENT ASSISTANT Ot 174.9 12/25/2014 KINGNAOMY Diaz S CONSTRUCTION MANAGEMENT ASSISTANT Ot V49.81 12/25/2014 KINGNAOMY S CONSTRUCTION MANAGEMENT ASSISTANT Ot V58.69 12/25/2014 MARCELO ROJAS, JOE Sherman [...] BOBBJORN N Ot V76.11 2015 NAOMY KING CONSTRUCTION MANAGEMENT ASSISTANT Ot 174.9 2015 KINGNAOMY Diaz S CONSTRUCTION MANAGEMENT ASSISTANT Ot 250.00 2015 KINGNAOMY Diaz S CONSTRUCTION MANAGEMENT ASSISTANT Ot 585.3 2015 NAOMY KING S CONSTRUCTION MANAGEMENT ASSISTANT Ot V15.3 2015 NAOMY KING S CONSTRUCTION MANAGEMENT ASSISTANT Ot V58.67 2015 KINGNAOMY Diaz S CONSTRUCTION MANAGEMENT ASSISTANT Ot V58.69 2015 KINGNAOMY Diaz S CONSTRUCTION MANAGEMENT ASSISTANT Ot 174.9 2015 NAOMY KING S CONSTRUCTION MANAGEMENT ASSISTANT Ot V49.81 2015 NAOMY KING S CONSTRUCTION MANAGEMENT ASSISTANT Ot V58.69 2015 MARCELO ROJAS, JOE Sherman Ot 599.0 2015 GREGANTHONY SAMSON N Ot 174.9 2015 GREGANTHONY SAMSON N Ot 250.00 2015 GREGANTHONY SAMSON N Ot 585.3 2015 GREGANTHONY SAMSON N Ot V15.3 2015 GREGANTHONY SAMSON N Ot V49.81 2015 GREGANTHONY SAMSNO N Ot V58.67 2015 GREGANTHONY SAMSON N Ot V58.69 04/18/2015 RD ANUP L CONSTRUCTION MANAGEMENT ASSISTANT Ot 240.9 04/18/2015 SULTANA, ANUP L CONSTRUCTION MANAGEMENT ASSISTANT Ot 266.2 04/18/2015 SULTANA, ANUP L CONSTRUCTION MANAGEMENT ASSISTANT Ot 268.9 04/18/2015 SULTANA, ANUP L CONSTRUCTION MANAGEMENT ASSISTANT Ot 275.2 04/18/2015 SULTNAA, ANUP L CONSTRUCTION MANAGEMENT ASSISTANT Ot 458.9 04/18/2015 SULTANA, ANUP L CONSTRUCTION MANAGEMENT ASSISTANT Ot 593.9 04/18/2015 SULTANA, ANUP L CONSTRUCTION MANAGEMENT ASSISTANT Ot 785.1 04/18/2015 SULTANA, ANUP L CONSTRUCTION MANAGEMENT ASSISTANT Ot 787.20 05/10/2015 ANGEL MCDOWELL MD Ot E11.40 TYPE 2 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 WITH DIABETIC N 05/10/2015 ANGEL MCDOWELL MD Ot G45.9 TRANSIENT CEREBRAL ISCHEMIC ATTACK, UNSP 05/10/2015 ANGEL MCDOWELL MD Ot Z79.02 SERVICE DISMANTLER (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 OF ANTITHROMBOTI 05/10/2015 ANGEL MCDOWELL MD Ot Z79.4 SERVICE DISMANTLER (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 05/10/2015 ANGEL MCDOWELL MD Ot Z79.899 OTHER CORRECTION (CURRENT) DRUG THERAPY 05/10/2015 VITALY CANDELARIO DENIS K Ot E11.40 TYPE 2 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 WITH DIABETIC N 05/10/2015 VITALY CANDELARIO DENIS K Ot G45.9 TRANSIENT CEREBRAL ISCHEMIC ATTACK, UNSP 05/10/2015 VITALY CANDELARIO DENIS K Ot Z79.02 CORRECTION (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 OF ANTITHROMBOTI 05/10/2015 VITALY DO DENIS K Ot Z79.4 SERVICE DISMANTLER (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 05/10/2015 DENIS HAIDER DO Ot Z79.82 CORRECTION (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 OF ASPIRIN 05/29/2015 ANUP SULTANA L CONSTRUCTION MANAGEMENT ASSISTANT Ot 240.9 05/29/2015 SARAHY SULTANARICIA L CONSTRUCTION MANAGEMENT ASSISTANT Ot 266.2 05/29/2015 SULTANAKIERAN PHILLIPSIA L CONSTRUCTION MANAGEMENT ASSISTANT Ot 268.9 05/29/2015 SULTANAKIERAN PHILLIPSIA L CONSTRUCTION MANAGEMENT ASSISTANT Ot 275.2 05/29/2015 SULTANAKIERAN PHILLIPSIA L CONSTRUCTION MANAGEMENT ASSISTANT Ot 458.9 05/29/2015 SULTANA, ANUP L CONSTRUCTION MANAGEMENT ASSISTANT Ot 593.9 05/29/2015 KIERAN SULTANAIA L CONSTRUCTION MANAGEMENT ASSISTANT Ot 785.1 05/29/2015 ANUP SULTANA L CONSTRUCTION MANAGEMENT ASSISTANT Ot 787.20 06/27/2015 MARCELO ROJAS, JOE Sherman Ot R19.7 08/09/2015 JOE ROBERTSON MD Ot A04.7 08/27/2015 JOE ROBERTSON MD Ot R19.7 08/31/2015 Ot Z12.31 09/25/2015 JOE ROBERTSON MD Ot R19.7 DIARRHEA, UNSPECIFIED 09/25/2015 Ot Z12.31 09/25/2015 KIERAN SULTANAIA L CONSTRUCTION MANAGEMENT ASSISTANT Ot 240.9 09/25/2015 SARAHY SULTANARICIA L CONSTRUCTION MANAGEMENT ASSISTANT Ot 266.2 09/25/2015 SULTANA, ANUP L CONSTRUCTION MANAGEMENT ASSISTANT Ot 268.9 09/25/2015 KIERAN SULTANAIA L CONSTRUCTION MANAGEMENT ASSISTANT Ot 275.2 09/25/2015 KIERAN SULTANAIA L CONSTRUCTION MANAGEMENT ASSISTANT Ot 458.9 09/25/2015 SULTANA, ANUP L CONSTRUCTION MANAGEMENT ASSISTANT Ot 593.9 09/25/2015 SULTANA, ANUP L CONSTRUCTION MANAGEMENT ASSISTANT Ot 785.1 09/25/2015 SARAHY SULTANARICIA L CONSTRUCTION MANAGEMENT ASSISTANT Ot 787.20 09/25/2015 JOE ROBERTSON MD Ot [...] MD Ot I25.10 ATHSCL HEART DISEASE OF [place] CORONARY 10/06/2015 JOE ROBERTSON MD Ot K21.9 [...] INI 10/06/2015 JOE ROBERTSON MD Ot Z79.4 CORRECTION (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 10/06/2015 JOE ROBERTSON [...] ROBERTSON MD Ot Z95.5 10/15/2015 RDANUP Salvatore CONSTRUCTION MANAGEMENT ASSISTANT Ot 240.9 10/15/2015 RD ANUP L CONSTRUCTION MANAGEMENT ASSISTANT Ot 266.2 10/15/2015 RDANUP CONSTRUCTION MANAGEMENT ASSISTANT Ot 268.9 10/15/2015 RD ANUP L CONSTRUCTION MANAGEMENT ASSISTANT Ot 275.2 10/15/2015 RD ANUP L CONSTRUCTION MANAGEMENT ASSISTANT Ot 458.9 10/15/2015 RD ANUP Salvatore CONSTRUCTION MANAGEMENT ASSISTANT Ot 593.9 10/15/2015 RD ANUP L CONSTRUCTION MANAGEMENT ASSISTANT Ot 785.1 10/15/2015 ANUP SULTANA CONSTRUCTION MANAGEMENT ASSISTANT Ot 787.20 10/15/2015 MARCELO ROJAS, JOE Sherman [...] Soliman Ot I25.10 ATHSCL HEART DISEASE OF [place] CORONARY 11/21/2015 JOE ROBERTSON MD Ot E11.610 [...] Soliman Ot I25.10 ATHSCL HEART DISEASE OF [place] CORONARY 12/05/2015 Ot V45.82 PERCUTANEOUS TRANSLUM CORON ANGIOPLASTY 12/05/2015 Ot V57.89 REHABILITATION PROC NEC 12/05/2015 Ot R19.7 DIARRHEA, UNSPECIFIED 12/06/2015 JOE ROBERTSON MD Ot E11.9 TYPE 2 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 WITHOUT COMPLIC 12/06/2015 JOE ROBERTSON MD Ot E86.0 DEHYDRATION 12/06/2015 JOE ROBERTSON MD Ot I25.10 ATHSCL HEART DISEASE OF [place] CORONARY 12/06/2015 JOE ROBERTSON MD Ot I48.91 [...] MD Ot I25.10 ATHSCL HEART DISEASE OF [place] CORONARY 12/06/2015 JOE ROBERTSON MD Ot I48.91 [...] MD, Ot R42 DIZZINESS AND GIDDINESS 12/06/2015 JEO ROBERTSON MD, Ot R55 SYNCOPE AND COLLAPSE 12/06/2015 JOE ROBERTSON MD Ot Z95.5 PRESENCE OF CORONARY ANGIOPLASTY IMPLANT 12/06/2015 JOE ROBERTSON MD Ot Z95.820 PERIPHERAL VASCULAR ANGIOPLASTY STATUS W 12/27/2015 CIERA ROJAS, DESTINEE Soliman Ot I25.10 ATHSCL HEART DISEASE OF [place] CORONARY 01/04/2016 DOT ROJAS, NAFISA Tong Ot E04.1 NONTOXIC SINGLE THYROID NODULE 01/04/2016 Ot R19.7 DIARRHEA, UNSPECIFIED 01/04/2016 JOE ROBERTSON MD Ot R06.02 SHORTNESS OF BREATH 01/08/2016 DIMPLE NOVOA MD Ot I65.23 OCCLUSION AND STENOSIS OF BILATERAL PATTERSON 01/08/2016 DIMPLE NOVOA MD Ot R42 DIZZINESS AND GIDDINESS 01/25/2016 [...] UNSP 02/18/2016 ANGEL MCDOWELL MD Ot Z79.02 SERVICE DISMANTLER (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 OF ANTITHROMBOTI 02/18/2016 ANGEL MCDOWELL MD Ot Z79.4 CORRECTION (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 02/18/2016 ANGEL MCDOWELL MD Ot Z79.899 OTHER CORRECTION (CURRENT) DRUG THERAPY 02/21/2016 NAOMY KINGP Ot [...] UNSP 03/08/2016 ANGEL MCDOWELL MD Ot Z79.02 CORRECTION (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 OF ANTITHROMBOTI 03/08/2016 ANGEL MCDOWELL MD Ot Z79.4 CORRECTION (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 03/08/2016 ANGEL MCDOWELL MD Ot Z79.899 OTHER SERVICE DISMANTLER (CURRENT) DRUG THERAPY 03/14/2016 NAOMY KINGP Ot [...] MALIGNANT NEOPLASM O 06/06/2016 RD ANUP Chase CONSTRUCTION MANAGEMENT ASSISTANT Ot 240.9 GOITER NOS 06/06/2016 SULTANAANUP PHILLIPS CONSTRUCTION MANAGEMENT ASSISTANT Ot 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 06/06/2016 SULTANA ANUP Salvatore CONSTRUCTION MANAGEMENT ASSISTANT Ot 268.9 VITAMIN D DEFICIENCY NOS 06/06/2016 SULTANAANUP PHILLIPS L CONSTRUCTION MANAGEMENT ASSISTANT Ot 275.2 DIS MAGNESIUM METABOLISM 06/06/2016 SULTANAANUP Salvatore CONSTRUCTION MANAGEMENT ASSISTANT Ot 458.9 HYPOTENSION NOS 06/06/2016 SULTANA ANUP Salvatore CONSTRUCTION MANAGEMENT ASSISTANT Ot 593.9 RENAL URETERAL DIS NOS 06/06/2016 SULTANAANUP PHILLIPS Salvatore CONSTRUCTION MANAGEMENT ASSISTANT Ot 785.1 PALPITATIONS 06/06/2016 SULTANAANUP PHILLIPS Salvatore CONSTRUCTION MANAGEMENT ASSISTANT Ot 787.20 DYSPHAGIA, UNSPECIFIED 06/06/2016 MARCELO ROJAS, OJE Sherman Ot R19.7 DIARRHEA, UNSPECIFIED 06/06/2016 MARCELO [...] R42 DIZZINESS AND GIDDINESS 06/06/2016 NAOMY KING CONSTRUCTION MANAGEMENT ASSISTANT Ot Z09 ENCNTR FOR F/U EXAM AFT [...] SINGLE THYROID NODULE 08/12/2016 SULTANAANUP PHILLIPS Salvatore CONSTRUCTION MANAGEMENT ASSISTANT Ot 240.9 GOITER NOS 08/12/2016 RD ANUP Salvatore CONSTRUCTION MANAGEMENT ASSISTANT Ot 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 08/12/2016 KIERAN SULTANAIA Salvatore CONSTRUCTION MANAGEMENT ASSISTANT Ot 268.9 VITAMIN D DEFICIENCY NOS 08/12/2016 RD ANUP Salvatore CONSTRUCTION MANAGEMENT ASSISTANT Ot 275.2 DIS MAGNESIUM METABOLISM 08/12/2016 ANUP SULTANA CONSTRUCTION MANAGEMENT ASSISTANT Ot 458.9 HYPOTENSION NOS 08/12/2016 ANUP SULTANA CONSTRUCTION MANAGEMENT ASSISTANT Ot 593.9 RENAL URETERAL DIS NOS 08/12/2016 KIERAN SULTANAIA Salvatore CONSTRUCTION MANAGEMENT ASSISTANT Ot 785.1 PALPITATIONS 08/12/2016 KIERAN SULTANAIA Salvatore CONSTRUCTION MANAGEMENT ASSISTANT Ot 787.20 DYSPHAGIA, UNSPECIFIED 08/12/2016 MARCELO ROJAS, [...] MD Ot R42 DIZZINESS AND GIDDINESS 08/12/2016 DMIPLE NOVOA MD Ot I65.23 OCCLUSION AND STENOSIS [...] FOR MALIGNANT NE 08/13/2016 RD ANUP Chase CONSTRUCTION MANAGEMENT ASSISTANT Ot 240.9 GOITER NOS 08/13/2016 RD ANUP Chase CONSTRUCTION MANAGEMENT ASSISTANT Ot 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 08/13/2016 RD ANUP Salvatore CONSTRUCTION MANAGEMENT ASSISTANT Ot 268.9 VITAMIN D DEFICIENCY NOS 08/13/2016 RD ANUP Chase CONSTRUCTION MANAGEMENT ASSISTANT Ot 275.2 DIS MAGNESIUM METABOLISM 08/13/2016 ANUP SULTANA CONSTRUCTION MANAGEMENT ASSISTANT Ot 458.9 HYPOTENSION NOS 08/13/2016 RD ANUP Salvatore CONSTRUCTION MANAGEMENT ASSISTANT Ot 593.9 RENAL URETERAL DIS NOS 08/13/2016 ANUP SULTANA CONSTRUCTION MANAGEMENT ASSISTANT Ot 785.1 PALPITATIONS 08/13/2016 ANUP SULTANA CONSTRUCTION MANAGEMENT ASSISTANT Ot 787.20 DYSPHAGIA, UNSPECIFIED 08/13/2016 MARCELO ROJAS, [...] SINGLE THYROID NODULE 08/13/2016 KING, HILAH S CONSTRUCTION MANAGEMENT ASSISTANT Ot Z12.31 ENCNTR SCREEN MAMMOGRAM FOR MALIGNANT NE 08/13/2016 NAOMY KING CONSTRUCTION MANAGEMENT ASSISTANT Ot Z12.31 ENCNTR SCREEN MAMMOGRAM FOR MALIGNANT NE 08/14/2016 Ot Z12.31 ENCNTR SCREEN MAMMOGRAM FOR MALIGNANT NE 08/14/2016 NAOMY KING CONSTRUCTION MANAGEMENT ASSISTANT Ot Z12.31 ENCNTR SCREEN MAMMOGRAM FOR MALIGNANT NE 09/03/2016 NAOMY KING CONSTRUCTION MANAGEMENT ASSISTANT Ot Z12.31 ENCNTR SCREEN MAMMOGRAM FOR MALIGNANT [...] R42 DIZZINESS AND GIDDINESS 12/12/2016 NAOMY KING CONSTRUCTION MANAGEMENT ASSISTANT Ot Z09 ENCNTR FOR F/U EXAM AFT TRTMT FOR COND O 12/12/2016 NAOMY KING CONSTRUCTION MANAGEMENT ASSISTANT Ot Z85.3 PERSONAL HISTORY OF MALIGNANT NEOPLASM O 12/12/2016 NAOMY KING CONSTRUCTION MANAGEMENT ASSISTANT Ot Z12.31 ENCNTR SCREEN MAMMOGRAM FOR MALIGNANT [...] ENCNTR SCREEN MAMMOGRAM FOR MALIGNANT NE 12/17/2016 DESITNEE SULTANA DO Ot E04.1 NONTOXIC SINGLE THYROID [...] NONTOXIC SINGLE THYROID NODULE 12/19/2016 ANUP SULTANA CONSTRUCTION MANAGEMENT ASSISTANT Ot E04.1 NONTOXIC SINGLE THYROID NODULE 12/25/2016 ANUP SULTANA CONSTRUCTION MANAGEMENT ASSISTANT Ot E04.1 NONTOXIC SINGLE THYROID NODULE 12/25/2016 NEL OBRIEN, GRECIA Morfin Ot E11.9 TYPE 2 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 WITHOUT COMPLIC 12/25/2016 GRECIA DIXON Ot I10 ESSENTIAL (PRIMARY) HYPERTENSION 12/25/2016 GRECIA DIXON Ot I25.10 ATHSCL HEART DISEASE OF [place] CORONARY 12/25/2016 GRECIA DIXON Ot I65.23 OCCLUSION AND STENOSIS OF BILATERAL [place] 12/27/2016 DIMPLE NOVOA MD Ot E11.9 TYPE 2 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 WITHOUT COMPLIC 12/27/2016 DIMPLE NOVOA MD Ot E78.5 HYPERLIPIDEMIA, UNSPECIFIED 12/27/2016 DIMPLE NOVOA MD, Ot I10 ESSENTIAL (PRIMARY) HYPERTENSION 12/27/2016 DIMPLE NOVOA MD, Ot I25.10 ATHSCL HEART DISEASE OF [place] CORONARY 12/27/2016 DIMPLE NOVOA MD, Ot 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 CALCIFIE 12/27/2016 DIMPLE NOVOA MD, Ot I49.5 SICK SINUS SYNDROME 12/27/2016 DIMPLE NOVOA MD Ot R94.39 ABNORMAL RESULT OF OTHER CARDIOVASCULAR 12/27/2016 DIMPLE NOVOA MD, Ot T82.855A STENOSIS OF CORONARY ARTERY STENT, INITI 12/27/2016 DIMPLE NOVOA MD, Ot Z79.4 CORRECTION (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 12/27/2016 DIMPLE NOVOA MD, Ot Z79.899 OTHER CORRECTION (CURRENT) DRUG THERAPY 12/27/2016 DIMPLE NOVOA MD, Ot Z95.0 PRESENCE OF CARDIAC PACEMAKER 01/06/2017 GRECIA DIXON Ot E11.9 TYPE 2 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 WITHOUT COMPLIC 01/06/2017 GRECIA DIXON Ot I10 ESSENTIAL (PRIMARY) HYPERTENSION 01/06/2017 GRECIA DIXON Ot I25.10 ATHSCL HEART DISEASE OF [place] CORONARY 01/06/2017 GRECIA DIXON Ot I65.23 OCCLUSION AND STENOSIS OF BILATERAL [place] 01/06/2017 ANUP SULTANA CONSTRUCTION MANAGEMENT ASSISTANT Ot E04.1 NONTOXIC SINGLE THYROID NODULE 01/06/2017 NAOMY KING CONSTRUCTION MANAGEMENT ASSISTANT Ot 174.9 MALIGN NEOPL BREAST NOS 01/06/2017 ANUP SULTANA CONSTRUCTION MANAGEMENT ASSISTANT Ot E04.1 NONTOXIC SINGLE THYROID NODULE 01/07/2017 DIMPLE NOVOA MD Ot E11.9 TYPE 2 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 WITHOUT COMPLIC 01/07/2017 DIMPLE NOVOA MD, Ot E78.5 HYPERLIPIDEMIA, UNSPECIFIED 01/07/2017 DIMPLE NOVOA MD Ot I10 ESSENTIAL (PRIMARY) HYPERTENSION 01/07/2017 DIMPLE NOVOA MD Ot I25.10 ATHSCL HEART DISEASE OF [place] CORONARY 01/07/2017 DIMPLE NOVOA MD Ot 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 CALCIFIE 01/07/2017 DIMPLE NOVOA MD Ot I49.5 SICK SINUS SYNDROME 01/07/2017 DIMPLE NOVOA MD Ot R94.39 ABNORMAL RESULT OF OTHER CARDIOVASCULAR 01/07/2017 DIMPLE NOVOA MD, Ot T82.855A STENOSIS OF CORONARY ARTERY STENT, INITI 01/07/2017 DIMPLE NOVOA MD, Ot Z79.4 SERVICE DISMANTLER (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 01/07/2017 DIMPLE NOVOA MD, Ot Z79.899 OTHER SERVICE DISMANTLER (CURRENT) DRUG THERAPY 01/07/2017 DIMPLE NOVOA MD, Ot Z95.0 PRESENCE OF CARDIAC PACEMAKER 01/13/2017 GRECIA DIXON Ot E11.9 TYPE 2 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 WITHOUT COMPLIC 01/13/2017 GRECIA DIXON Ot I10 ESSENTIAL (PRIMARY) HYPERTENSION 01/13/2017 GRECIA DIXON Ot I25.10 ATHSCL HEART DISEASE OF [place] CORONARY 01/13/2017 GRECIA DIXON Ot I65.23 OCCLUSION AND STENOSIS OF BILATERAL [place] 01/14/2017 GRECIA DIXON Ot E11.9 TYPE 2 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 WITHOUT COMPLIC 01/14/2017 GRECIA DIXON Ot I10 ESSENTIAL (PRIMARY) HYPERTENSION 01/14/2017 GRECIA DIXON Ot I25.10 ATHSCL HEART DISEASE OF [place] CORONARY 01/14/2017 GRECIA DIXON Ot I65.23 OCCLUSION AND STENOSIS OF BILATERAL [place] 01/17/2017 DIMPLE NOVOA MD Ot E11.9 TYPE 2 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 WITHOUT COMPLIC 01/17/2017 SOMMER MD, BASHAR J Ot E78.5 HYPERLIPIDEMIA, UNSPECIFIED 01/17/2017 DIMPLE NOVOA MD Ot I10 ESSENTIAL (PRIMARY) HYPERTENSION 01/17/2017 DIMPLE NOVOA MD Ot I25.10 ATHSCL HEART DISEASE OF [place] CORONARY 01/17/2017 DIMPLE NOVOA MD Ot 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 CALCIFIE 01/17/2017 DIMPLE NOVOA MD Ot I49.5 SICK SINUS SYNDROME 01/17/2017 DIMPLE NOVOA MD Ot R94.39 ABNORMAL RESULT OF OTHER CARDIOVASCULAR 01/17/2017 DIMPLE NOVOA MD Ot T82.855A STENOSIS OF CORONARY ARTERY STENT, INITI 01/17/2017 DIMPLE NOVOA MD Ot Z79.4 CORRECTION (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 01/17/2017 DIMPLE NOVOA MD Ot Z79.899 OTHER CORRECTION (CURRENT) DRUG THERAPY 01/17/2017 DIMPLE NOVOA MD [...] MD Ot I25.10 ATHSCL HEART DISEASE OF [place] CORONARY 01/28/2017 DIMPLE NOVOA MD Ot 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 CALCIFIE 01/28/2017 DIMPLE NOVOA MD Ot I49.5 SICK SINUS SYNDROME 01/28/2017 DIMPLE NOVOA MD Ot R94.39 ABNORMAL RESULT OF OTHER CARDIOVASCULAR 01/28/2017 DIMPLE NOVOA MD Ot T82.855A STENOSIS OF CORONARY ARTERY STENT, INITI 01/28/2017 DIMPLE NOVOA MD Ot Z79.4 SERVICE DISMANTLER (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 01/28/2017 DIMPLE NOVOA MD Ot Z79.899 OTHER CORRECTION (CURRENT) DRUG THERAPY 01/28/2017 DIMPLE NOVOA MD, Ot Z95.0 PRESENCE OF CARDIAC PACEMAKER 01/29/2017 GRECIA DIXON Ot E11.9 TYPE 2 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 WITHOUT COMPLIC 01/29/2017 GRECIA DIXON Ot I10 ESSENTIAL (PRIMARY) HYPERTENSION 01/29/2017 GRECIA DIXON Ot I25.10 ATHSCL HEART DISEASE OF [place] CORONARY 01/29/2017 GRECIA DIXON Ot I65.23 OCCLUSION AND STENOSIS OF BILATERAL [place]TER[place] 03/13/2017 DIMPLE NOVOA MD, Ot E11.9 TYPE 2 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 WITHOUT COMPLIC 03/13/2017 DIMPLE NOVOA MD, Ot E78.5 HYPERLIPIDEMIA, UNSPECIFIED 03/13/2017 DIMPLE NOVOA MD, Ot I10 ESSENTIAL (PRIMARY) HYPERTENSION 03/13/2017 DIMPLE NOVOA MD, Ot I25.10 ATHSCL HEART DISEASE OF [place] CORONARY 03/13/2017 DIMPLE NOVOA MD, Ot 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 CALCIFIE 03/13/2017 DIMPLE NOVOA MD, Ot I49.5 SICK SINUS SYNDROME 03/13/2017 DIMPLE NOVOA MD, Ot R94.39 ABNORMAL RESULT OF OTHER CARDIOVASCULAR 03/13/2017 DIMPLE NOVOA MD, Ot T82.855A STENOSIS OF CORONARY ARTERY STENT, INITI 03/13/2017 DIMPLE NOVOA MD, Ot Z79.4 CORRECTION (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 03/13/2017 DIMPLE NOVOA MD, Ot Z79.899 OTHER CORRECTION (CURRENT) DRUG THERAPY 03/13/2017 DIMPLE NOVOA MD, Ot Z95.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 03/13/2017 ANTHONY GARZA Ot E11.43 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 03/13/2017 ANTHONY GARZA Ot E78.5 HYPERLIPIDEMIA, UNSPECIFIED 03/13/2017 ANTHONY GARZA Ot 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 KDNY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 03/13/2017 ANTHONY GARZA Ot I25.10 ATHSCL HEART DISEASE OF [place] CORONARY 03/13/2017 ANTHONY GARZA Ot I50.9 HEART FAILURE, UNSPECIFIED 03/13/2017 ANTHONY GARZA Ot K21.9 GASTRO-ESOPHAGEAL REFLUX DISEASE WITHOUT 03/13/2017 ANTHONY GARZA Ot N18.3 CHRONIC KIDNEY DISEASE, STAGE 3 (MODERAT 03/13/2017 ANTHONY GARZA Ot Z08 ENCNTR FOR FOLLOW-UP EXAM AFTER TRTMT FO 03/13/2017 ANTHONY GARZA Ot Z79.02 CORRECTION (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 OF ANTITHROMBOTI 03/13/2017 ANTHONY GARZA Ot Z79.4 SERVICE DISMANTLER (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 03/13/2017 ANTHONY GARZA Ot Z79.899 OTHER SERVICE DISMANTLER (CURRENT) DRUG THERAPY 03/13/2017 ANTHONY GARZA Ot Z85.3 PERSONAL HISTORY OF MALIGNANT NEOPLASM O 03/13/2017 ANTHONY GARZA Ot Z95.5 PRESENCE OF CORONARY ANGIOPLASTY IMPLANT 03/14/2017 DIMPLE NOVOA MD Ot E11.9 TYPE 2 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 WITHOUT COMPLIC 03/14/2017 DIMPLE NOVOA MD, Ot E78.5 HYPERLIPIDEMIA, UNSPECIFIED 03/14/2017 DIMPLE NOVOA MD Ot I10 ESSENTIAL (PRIMARY) HYPERTENSION 03/14/2017 DIMPLE NOVOA MD, Ot I25.10 ATHSCL HEART DISEASE OF [place] CORONARY 03/14/2017 DIMPLE NOVOA MD, Ot 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 CALCIFIE 03/14/2017 DIMPLE NOVOA MD, Ot I49.5 SICK SINUS SYNDROME 03/14/2017 DIMPLE NOVOA MD Ot R94.39 ABNORMAL RESULT OF OTHER CARDIOVASCULAR 03/14/2017 DIMPLE NOVOA MD, Ot T82.855A STENOSIS OF CORONARY ARTERY STENT, INITI 03/14/2017 DIMPLE NOVOA MD, Ot Z79.4 CORRECTION (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 03/14/2017 DIMPLE NOVOA MD, Ot Z79.899 OTHER SERVICE DISMANTLER (CURRENT) DRUG THERAPY 03/14/2017 DIMPLE NOVOA MD, Ot Z95.0 PRESENCE OF CARDIAC PACEMAKER 03/16/2017 MARCELO ROJAS, JOE Sherman Ot E04.1 NONTOXIC SINGLE THYROID NODULE 04/03/2017 GREG, BOBAN N Ot E04.1 NONTOXIC SINGLE THYROID NODULE 04/03/2017 GREGANTHONY Ot 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 04/03/2017 GREGANTHONY Ot E11.43 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 04/03/2017 GREGANTHONY Ot E78.5 HYPERLIPIDEMIA, UNSPECIFIED 04/03/2017 GREGANTHONY Ot 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 [place]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 04/03/2017 ANTHONY GARZA Ot I25.10 ATHSCL HEART DISEASE OF [place] CORONARY 04/03/2017 GREGANTHONY Ot I50.9 HEART FAILURE, UNSPECIFIED 04/03/2017 ANTHONY GARZA Ot K21.9 GASTRO-ESOPHAGEAL REFLUX DISEASE WITHOUT 04/03/2017 ANTHONY GARZA Ot N18.3 CHRONIC KIDNEY DISEASE, STAGE 3 (MODERAT 04/03/2017 ANTHONY GARZA Ot Z08 ENCNTR FOR FOLLOW-UP EXAM AFTER TRTMT FO 04/03/2017 ANTHONY GARZA Ot Z79.02 SERVICE DISMANTLER (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 OF ANTITHROMBOTI 04/03/2017 ANTHONY GARZA Ot Z79.4 CORRECTION (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 04/03/2017 ANTHONY GARZA Ot Z79.899 OTHER CORRECTION (CURRENT) DRUG THERAPY 04/03/2017 ANTHONY GARZA Ot Z85.3 PERSONAL HISTORY OF MALIGNANT NEOPLASM O 04/03/2017 ANTHONY GARZA Ot Z95.5 PRESENCE OF CORONARY ANGIOPLASTY IMPLANT 04/03/2017 MARCELO ROJAS, JOE Sherman Ot E04.1 NONTOXIC SINGLE THYROID NODULE 04/23/2017 ANTHONY GARZA Ot E04.1 NONTOXIC SINGLE THYROID NODULE 04/23/2017 ANTHONY GARZA Ot 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 04/23/2017 ANTHONY GARZA Ot E11.43 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 04/23/2017 ANTHONY GARZA Ot E78.5 HYPERLIPIDEMIA, UNSPECIFIED 04/23/2017 ANTHONY GARZA Ot 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 [place]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 04/23/2017 ANTHONY GARZA Ot I25.10 ATHSCL HEART DISEASE OF [place] CORONARY 04/23/2017 ANTHONY GARZA Ot I50.9 HEART FAILURE, UNSPECIFIED 04/23/2017 ANTHONY GARZA Ot K21.9 GASTRO-ESOPHAGEAL REFLUX DISEASE WITHOUT 04/23/2017 ANTHONY GARZA Ot N18.3 CHRONIC KIDNEY DISEASE, STAGE 3 (MODERAT 04/23/2017 ANTHONY GARZA Ot Z08 ENCNTR FOR FOLLOW-UP EXAM AFTER TRTMT FO 04/23/2017 ANTHONY GARZA Ot Z79.02 SERVICE DISMANTLER (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 OF ANTITHROMBOTI 04/23/2017 ANTHONY GARZA Ot Z79.4 CORRECTION (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 04/23/2017 ANTHONY GARZA Ot Z79.899 OTHER CORRECTION (CURRENT) DRUG THERAPY 04/23/2017 ANTHONY GARZA Ot [...] 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 08/06/2017 ANTHONY GARZA Ot E11.43 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 08/06/2017 ANTHONY GARZA Ot E78.5 HYPERLIPIDEMIA, UNSPECIFIED 08/06/2017 ANTHONY GARZA Ot 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 [place]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 08/06/2017 ANTHONY GARZA Ot I25.10 ATHSCL HEART DISEASE OF [place] CORONARY 08/06/2017 ANTHONY GARZA Ot I50.9 HEART FAILURE, UNSPECIFIED 08/06/2017 ANTHONY GARZA Ot K21.9 GASTRO-ESOPHAGEAL REFLUX DISEASE WITHOUT 08/06/2017 ANTHONY GARZA Ot N18.3 CHRONIC KIDNEY DISEASE, STAGE 3 (MODERAT 08/06/2017 ANTHONY GARZA Ot Z08 ENCNTR FOR FOLLOW-UP EXAM AFTER TRTMT FO 08/06/2017 ANTHONY GARZA Yulia Ot Z79.02 SERVICE DISMANTLER (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 OF ANTITHROMBOTI 08/06/2017 GREGANTHONY SAMSON Yulia Ot Z79.4 SERVICE DISMANTLER (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 08/06/2017 GREG ALYCEBJORN Yulia Ot Z79.899 OTHER CORRECTION (CURRENT) DRUG THERAPY 08/06/2017 ANTHONY GARZA Yulia Ot Z85.3 PERSONAL HISTORY OF MALIGNANT NEOPLASM O 08/06/2017 GREG, ALYCEBJORN Yulia Ot Z95.5 PRESENCE OF CORONARY ANGIOPLASTY IMPLANT 08/06/2017 GREG, ALYCEBJORN Yulia Ot Z12.31 ENCNTR SCREEN MAMMOGRAM FOR MALIGNANT NE 08/09/2017 DARYL PIEDRA APRN Ot E11.40 TYPE 2 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 WITH DIABETIC N 08/09/2017 DARYL PIEDRA APRN Ot E11.51 TYPE 2 DIABETES W DIABETIC PERIPHERAL AN 08/09/2017 DARYL PIEDRA APRN Ot E11.621 TYPE 2 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 WITH FOOT ULCER 08/09/2017 DARYL PIEDRA APRN Ot E78.00 PURE HYPERCHOLESTEROLEMIA, UNSPECIFIED 08/09/2017 DARYL PIEDRA APRN Ot I11.0 HYPERTENSIVE HEART DISEASE WITH HEART FA 08/09/2017 DARYL PIEDRA APRN Ot I25.10 ATHSCL HEART DISEASE OF [place] CORONARY 08/09/2017 DARYL PIEDRA APRN Ot I25.2 OLD MYOCARDIAL INFARCTION 08/09/2017 DARYL PIEDRA APRN Ot I50.9 HEART FAILURE, UNSPECIFIED 08/09/2017 DARYL PIEDRA APRN Ot J10.1 FLU DUE TO OTH IDENT INFLUENZA VIRUS W O 08/09/2017 DARYL PIEDRA APRN Ot K21.9 GASTRO-ESOPHAGEAL REFLUX DISEASE WITHOUT 08/09/2017 DARYL PIEDRA APRN Ot R19.7 DIARRHEA, UNSPECIFIED 08/09/2017 DARYL PIEDRA APRN Ot Z79.4 SERVICE DISMANTLER (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 08/09/2017 DARYL PIEDRA APRN Ot Z82.49 FAMILY HX OF [place] HEART DIS AND OTH DI 08/09/2017 DARYL PIEDRA APRN Ot Z85.3 PERSONAL HISTORY OF MALIGNANT NEOPLASM O 08/09/2017 DARYL PIEDRA APRN Ot Z86.73 PRSNL HX OF TIA (TIA), AND CEREB INFRC W 08/09/2017 DARYL PIEDRA APRN Ot Z90.710 ACQUIRED ABSENCE OF BOTH CERVIX AND UTER 08/09/2017 DARYL PIEDRA APRN Ot Z95.0 PRESENCE OF CARDIAC PACEMAKER 08/09/2017 DARYL PIEDRA APRN Ot Z95.5 PRESENCE OF CORONARY ANGIOPLASTY IMPLANT 08/11/2017 DARYL PIEDRA APRN Ot E11.40 TYPE 2 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 WITH DIABETIC N 08/11/2017 DARYL PIEDRA APRN Ot E11.51 TYPE 2 DIABETES W DIABETIC PERIPHERAL AN 08/11/2017 DARYL PIEDRA APRN Ot E11.621 TYPE 2 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 WITH FOOT ULCER 08/11/2017 DARYL PIEDRA APRN Ot E78.00 PURE HYPERCHOLESTEROLEMIA, UNSPECIFIED 08/11/2017 DARYL PIEDRA APRN Ot I11.0 HYPERTENSIVE HEART DISEASE WITH HEART FA 08/11/2017 DARYL PIEDRA APRN Ot I25.10 ATHSCL HEART DISEASE OF [place] CORONARY 08/11/2017 DARYL PIEDRA APRN Ot I25.2 OLD MYOCARDIAL INFARCTION 08/11/2017 DARYL PIEDRA APRN Ot I50.9 HEART FAILURE, UNSPECIFIED 08/11/2017 DARYL PIEDRA APRN Ot J10.1 FLU DUE TO OTH IDENT INFLUENZA VIRUS W O 08/11/2017 DARYL PIEDRA APRN Ot K21.9 GASTRO-ESOPHAGEAL REFLUX DISEASE WITHOUT 08/11/2017 DARYL PIEDRA APRN Ot R19.7 DIARRHEA, UNSPECIFIED 08/11/2017 DARYL PIEDRA APRN Ot Z79.4 SERVICE DISMANTLER (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 08/11/2017 DARYL PIEDRA APRN Ot Z82.49 FAMILY HX OF [place] HEART DIS AND OTH DI 08/11/2017 DARYL PIEDRA APRN Ot Z85.3 PERSONAL HISTORY OF MALIGNANT NEOPLASM O 08/11/2017 DARYL PIEDRA APRN Ot Z86.73 PRSNL HX OF TIA (TIA), AND CEREB INFRC W 08/11/2017 DARYL PIEDRA APRN Ot Z90.710 ACQUIRED ABSENCE OF BOTH CERVIX AND UTER 08/11/2017 DARYL PIEDRA APRN Ot Z95.0 PRESENCE OF CARDIAC PACEMAKER 08/11/2017 DARYL PIEDRA APRN Ot Z95.5 PRESENCE OF CORONARY ANGIOPLASTY IMPLANT 09/11/2017 DENIS WEAVER SALES AGENT [employer]ANCE-C Ot E11.9 TYPE 2 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 WITHOUT COMPLIC 09/11/2017 DENIS WEAVER SALES AGENT [employer]ANCE-C Ot E55.9 VITAMIN D DEFICIENCY, UNSPECIFIED 09/11/2017 DENIS WEAVER SALES AGENT [employer]ANCE-C Ot E78.5 HYPERLIPIDEMIA, UNSPECIFIED 09/11/2017 DENIS WEAVER SALES AGENT [employer]ANCE-C Ot E87.2 ACIDOSIS 09/11/2017 DENIS WEAVER SALES AGENT [employer] INS[employer]ANCE-C Ot I12.9 HYPERTENSIVE CHRONIC KIDNEY DISEASE W ST 09/11/2017 DENIS WEAVER SALES AGENT [employer]ANCE-C Ot I25.10 ATHSCL HEART DISEASE OF [place] CORONARY 09/11/2017 DENIS WEAVER SALES AGENT [employer]ANCE-C Ot K21.9 GASTRO-ESOPHAGEAL REFLUX DISEASE WITHOUT 09/11/2017 DENIS WEAVER SALES AGENT [employer]ANCE-C Ot N18.3 CHRONIC KIDNEY DISEASE, STAGE 3 (MODERAT 09/24/2017 DIMPLE NOVOA MD Ot E11.40 TYPE 2 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 WITH DIABETIC N 09/24/2017 DIMPLE NOVOA MD Ot E11.621 TYPE 2 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 WITH FOOT ULCER 09/24/2017 DIMPLE NOVOA MD Ot E78.5 HYPERLIPIDEMIA, UNSPECIFIED 09/24/2017 DIMPLE NOVOA MD Ot I25.10 ATHSCL HEART DISEASE OF [place] CORONARY 09/24/2017 DIMPLE NOVOA MD Ot I48.0 PAROXYSMAL ATRIAL FIBRILLATION 09/24/2017 DIMPLE NOVOA MD Ot I49.5 SICK SINUS SYNDROME 09/24/2017 DIMPLE NOVOA MD Ot I65.29 OCCLUSION AND STENOSIS OF UNSPECIFIED CA 09/24/2017 DIMPLE NOVOA MD Ot I73.9 PERIPHERAL VASCULAR DISEASE, UNSPECIFIED 09/24/2017 DIMPLE NOVOA MD Ot L97.529 NON-PRESSURE CHRONIC ULCER OTH PRT LEFT 09/24/2017 IDMPLE NOVOA MD Ot N18.3 CHRONIC KIDNEY DISEASE, STAGE 3 (MODERAT 09/24/2017 DIMPLE NOVOA MD Ot R07.9 CHEST PAIN, UNSPECIFIED 09/24/2017 DIMPLE NOVOA MD Ot Z79.4 SERVICE DISMANTLER (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 09/24/2017 DIMPLE NOVOA MD Ot Z85.3 PERSONAL HISTORY OF MALIGNANT NEOPLASM O 09/24/2017 DIMPLE NOVOA MD Ot Z88.0 ALLERGY STATUS TO PENICILLIN 09/24/2017 DIMPLE NOVOA MD Ot Z88.2 ALLERGY STATUS TO SULFONAMIDES STATUS 09/24/2017 DIMPLE NOVOA MD Ot Z88.5 ALLERGY STATUS TO NARCOTIC AGENT STATUS 09/24/2017 DIMPLE NOVOA MD Ot Z88.8 ALLERGY STATUS TO OTH DRUG/MEDS/BIOL SUB 09/28/2017 DIMPLE NOVOA MD Ot E11.40 TYPE 2 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 WITH DIABETIC N 09/28/2017 DIMPLE NOVOA MD Ot E11.621 TYPE 2 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 WITH FOOT ULCER 09/28/2017 DIMPLE NOVOA MD Ot E78.5 HYPERLIPIDEMIA, UNSPECIFIED 09/28/2017 DIMPLE NOVOA MD Ot I25.10 ATHSCL HEART DISEASE OF [place] CORONARY 09/28/2017 DIMPLE NOVOA MD Ot I48.0 PAROXYSMAL ATRIAL FIBRILLATION 09/28/2017 DIMPLE NOVOA MD Ot I49.5 SICK SINUS SYNDROME 09/28/2017 DIMPLE NOVOA MD Ot I65.29 OCCLUSION AND STENOSIS OF UNSPECIFIED CA 09/28/2017 DIMPLE NOVOA MD Ot L97.529 NON-PRESSURE CHRONIC ULCER OTH PRT LEFT 09/28/2017 DIMPLE NOVOA MD Ot N18.3 CHRONIC KIDNEY DISEASE, STAGE 3 (MODERAT 09/28/2017 DIMPLE NOVOA MD Ot R07.9 CHEST PAIN, UNSPECIFIED 09/28/2017 DIMPLE NOVOA MD Ot Z79.4 SERVICE DISMANTLER (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 09/28/2017 DIMPLE NOVOA MD Ot Z85.3 PERSONAL HISTORY OF MALIGNANT NEOPLASM O 09/28/2017 DIMPLE NOVOA MD Ot Z88.0 ALLERGY STATUS TO PENICILLIN 09/28/2017 DIMPLE NOVOA MD Ot Z88.2 ALLERGY STATUS TO SULFONAMIDES STATUS 09/28/2017 DIMPLE NOVOA MD Ot Z88.5 ALLERGY STATUS TO NARCOTIC AGENT STATUS 09/28/2017 DIMPLE NOVOA MD Ot Z88.8 ALLERGY STATUS TO OTH DRUG/MEDS/BIOL SUB 10/06/2017 DENIS WEAVER Ot E11.9 TYPE 2 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 WITHOUT COMPLIC 10/06/2017 DENIS WEAVER SALES AGENT [employer] INS[employer]ANCE-C Ot E55.9 VITAMIN D DEFICIENCY, UNSPECIFIED 10/06/2017 DENIS WEAVER SALES AGENT [employer]ANCE-C Ot E78.5 HYPERLIPIDEMIA, UNSPECIFIED 10/06/2017 DENIS WEAVER SALES AGENT [employer]ANCE-C Ot E87.2 ACIDOSIS 10/06/2017 DENIS WEAVER SALES AGENT [employer] INS[employer]ANCE-C Ot I12.9 HYPERTENSIVE CHRONIC KIDNEY DISEASE W ST 10/06/2017 DENIS WEAVER SALES AGENT [employer]ANCE-C Ot I25.10 ATHSCL HEART DISEASE OF [place] CORONARY 10/06/2017 DENIS WEAVER SALES AGENT [employer]ANCE-C Ot K21.9 GASTRO-ESOPHAGEAL REFLUX DISEASE WITHOUT 10/06/2017 DENIS WEAVER SALES AGENT [employer]ANCE-C Ot N18.3 CHRONIC KIDNEY DISEASE, STAGE 3 (MODERAT 10/28/2017 DIMPLE NOVOA MD Ot E11.40 TYPE 2 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 WITH DIABETIC N 10/28/2017 DIMPLE NOVOA MD Ot E11.621 TYPE 2 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 WITH FOOT ULCER 10/28/2017 DIMPLE NOVOA MD Ot E78.5 HYPERLIPIDEMIA, UNSPECIFIED 10/28/2017 DIMPLE NOVOA MD Ot I25.10 ATHSCL HEART DISEASE OF [place] CORONARY 10/28/2017 DIMPLE NOVOA MD Ot I48.0 PAROXYSMAL ATRIAL FIBRILLATION 10/28/2017 DIMPLE NOVOA MD Ot I49.5 SICK SINUS SYNDROME 10/28/2017 DIMPLE NOVOA MD Ot I65.29 OCCLUSION AND STENOSIS OF UNSPECIFIED CA 10/28/2017 DIMPLE NOVOA MD Ot I73.9 PERIPHERAL VASCULAR DISEASE, UNSPECIFIED 10/28/2017 DIMPLE NOVOA MD Ot L97.529 NON-PRESSURE CHRONIC ULCER OTH PRT LEFT 10/28/2017 DIMPLE NOVOA MD Ot N18.3 CHRONIC KIDNEY DISEASE, STAGE 3 (MODERAT 10/28/2017 DIMPLE NOVOA MD Ot R07.9 CHEST PAIN, UNSPECIFIED 10/28/2017 DIMPLE NOVOA MD Ot Z79.4 CORRECTION (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 10/28/2017 DIMPLE NOVOA MD Ot Z85.3 PERSONAL HISTORY OF MALIGNANT NEOPLASM O 10/28/2017 DIMPLE NOVOA MD Ot Z88.0 ALLERGY STATUS TO PENICILLIN 10/28/2017 DIMPLE NOVOA MD Ot Z88.2 ALLERGY STATUS TO SULFONAMIDES STATUS 10/28/2017 DIMPLE NOVOA MD Ot Z88.5 ALLERGY STATUS TO NARCOTIC AGENT STATUS 10/28/2017 DIMPLE NOVOA MD Ot Z88.8 ALLERGY STATUS TO OTH DRUG/MEDS/BIOL SUB 12/22/2017 MEG DENIS [employer] SALES AGENT [employer]ANCE-C Ot E11.9 TYPE 2 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 WITHOUT COMPLIC 12/22/2017 DENIS WEAVER SALES AGENT [employer] INS[employer]ANCE-C Ot E55.9 VITAMIN D DEFICIENCY, UNSPECIFIED 12/22/2017 DENIS WEAVER SALES AGENT [employer] INS[employer]ANCE-C Ot E78.5 HYPERLIPIDEMIA, UNSPECIFIED 12/22/2017 DENIS WEAVER SALES AGENT [employer] INS[employer]ANCE-C Ot E87.2 ACIDOSIS 12/22/2017 DENIS WEAVER [employer] SAL[employer] AGENT [employer]ANCE-C Ot I12.9 HYPERTENSIVE CHRONIC KIDNEY DISEASE W ST 12/22/2017 DENIS WEAVER [employer] SAL[employer] AGENT [employer]ANCE-C Ot I25.10 ATHSCL HEART DISEASE OF [place] CORONARY 12/22/2017 DENIS WEAVER [employer] SAL[employer] AGENT [employer]ANCE-C Ot K21.9 GASTRO-ESOPHAGEAL REFLUX DISEASE WITHOUT 12/22/2017 DENIS WEAVER [employer] SAL[employer] AGENT [employer]ANCE-C Ot N18.3 CHRONIC KIDNEY DISEASE, STAGE 3 (MODERAT 12/23/2017 JOE ROBERTSON MD Ot E11.51 TYPE 2 DIABETES W DIABETIC PERIPHERAL AN 12/23/2017 JOE ROBERTSON MD Ot E78.5 HYPERLIPIDEMIA, UNSPECIFIED 12/23/2017 JOE ROBERTSON MD Ot E87.6 HYPOKALEMIA 12/23/2017 JOE ROBERTSON MD Ot I12.9 HYPERTENSIVE CHRONIC KIDNEY DISEASE W ST 12/23/2017 JOE ROBERTSON MD Ot I25.10 ATHSCL HEART DISEASE OF [place] CORONARY 12/23/2017 JOE ROBERTSON MD Ot I25.2 OLD MYOCARDIAL INFARCTION 12/23/2017 JOE ROBERTSON MD Ot I48.0 PAROXYSMAL ATRIAL FIBRILLATION 12/23/2017 JOE ROBERTSON MD, Ot I49.5 SICK SINUS SYNDROME 12/23/2017 JOE ROBERTSON MD Ot I73.9 PERIPHERAL VASCULAR DISEASE, UNSPECIFIED 12/23/2017 JOE ROBERTSON MD, Ot J06.9 ACUTE UPPER RESPIRATORY INFECTION, UNSPE 12/23/2017 JOE ROBERTSON MD Ot N18.4 CHRONIC KIDNEY DISEASE, STAGE 4 (SEVERE) 12/23/2017 JOE ROBERTSON MD Ot R06.09 OTHER FORMS OF DYSPNEA 12/23/2017 JOE ROBERTSON MD Ot R42 DIZZINESS AND GIDDINESS 12/23/2017 JOE ROBERTSON MD Ot R53.1 WEAKNESS 12/23/2017 JOE ROBERTSON MD Ot Z79.01 SERVICE DISMANTLER (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 OF ANTICOAGULANT 12/23/2017 JOE ROBERTSON MD Ot Z85.3 PERSONAL HISTORY OF MALIGNANT NEOPLASM O 12/23/2017 JOE ROBERTSON MD Ot Z88.0 ALLERGY STATUS TO PENICILLIN 12/23/2017 JOE ROBERTSON MD Ot Z88.2 ALLERGY STATUS TO SULFONAMIDES STATUS 12/23/2017 JOE ROBERTSON MD, Ot Z88.5 ALLERGY STATUS TO NARCOTIC AGENT STATUS 12/23/2017 JOE ROBERTSON MD Ot Z95.0 PRESENCE OF CARDIAC PACEMAKER 12/23/2017 JOE ROBERTSON MD Ot Z95.5 PRESENCE OF CORONARY ANGIOPLASTY IMPLANT 12/23/2017 JOE ROBERTSON MD Ot E11.51 TYPE 2 DIABETES W DIABETIC PERIPHERAL AN 12/23/2017 JOE ROBERTSON MD Ot E78.5 HYPERLIPIDEMIA, UNSPECIFIED 12/23/2017 JOE ROBERTSON MD Ot E87.6 HYPOKALEMIA 12/23/2017 JOE ROBERTSON MD Ot I12.9 HYPERTENSIVE CHRONIC KIDNEY DISEASE W ST 12/23/2017 OJE ROBERTSON MD, Ot I25.10 ATHSCL HEART DISEASE OF [place] CORONARY 12/23/2017 JOE ROBERTSON MD, Ot I25.2 OLD MYOCARDIAL INFARCTION 12/23/2017 JOE ROBERTSON MD, Ot I48.0 PAROXYSMAL ATRIAL FIBRILLATION 12/23/2017 JOE ROBERTSON MD, Ot I49.5 SICK SINUS SYNDROME 12/23/2017 JOE ROBERTSON MD Ot I73.9 PERIPHERAL VASCULAR DISEASE, UNSPECIFIED 12/23/2017 JOE ROBERTSON MD, Ot J06.9 ACUTE UPPER RESPIRATORY INFECTION, UNSPE 12/23/2017 JOE ROBERTSON MD Ot N18.4 CHRONIC KIDNEY DISEASE, STAGE 4 (SEVERE) 12/23/2017 JOE ROBERTSON MD, Ot R06.09 OTHER FORMS OF DYSPNEA 12/23/2017 JOE ROBERTSON MD, Ot R42 DIZZINESS AND GIDDINESS 12/23/2017 JOE ROBERTSON MD Ot R53.1 WEAKNESS 12/23/2017 JOE ROBERTSON MD Ot Z79.01 CORRECTION (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 OF ANTICOAGULANT 12/23/2017 JOE ROBERTSON MD Ot Z85.3 PERSONAL HISTORY OF MALIGNANT NEOPLASM O 12/23/2017 JOE ROBERTSON MD Ot Z88.0 ALLERGY STATUS TO PENICILLIN 12/23/2017 JOE ROBERTSON MD Ot Z88.2 ALLERGY STATUS TO SULFONAMIDES STATUS 12/23/2017 JOE ROBERTSON MD Ot Z88.5 ALLERGY STATUS TO NARCOTIC AGENT STATUS 12/23/2017 JOE ROBERTSON MD Ot Z95.0 PRESENCE OF CARDIAC PACEMAKER 12/23/2017 JOE ROBERTSON MD Ot Z95.5 PRESENCE OF CORONARY ANGIOPLASTY IMPLANT 01/22/2018 PANTERA ROJAS, VANGIE Ot Z01.818 ENCOUNTER FOR OTHER PREPROCEDURAL EXAMIN 02/05/2018 PRISCILLA HAGEN MD Ot A41.51 SEPSIS DUE TO ESCHERICHIA COLI [E. COLI] 02/05/2018 PRISCILLA HAGEN MD Ot E11.9 TYPE 2 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 WITHOUT COMPLIC 02/05/2018 PRISCILLA HAGEN MD Ot E86.0 DEHYDRATION 02/05/2018 PRISCILLA HAGEN MD Ot I12.9 HYPERTENSIVE CHRONIC KIDNEY DISEASE W ST 02/05/2018 PRISCILLA HAGEN MD Ot I25.10 ATHSCL HEART DISEASE OF [place] CORONARY 02/05/2018 PRISCILLA HAGEN MD Ot N18.3 CHRONIC KIDNEY DISEASE, STAGE 3 (MODERAT 02/05/2018 PRISCILLA HAGEN MD Ot N39.0 URINARY TRACT INFECTION, SITE NOT SPECIF 02/05/2018 PRISCILLA HAGEN MD Ot R42 DIZZINESS AND GIDDINESS 02/05/2018 PRISCILLA HAGEN MD Ot Z79.4 CORRECTION (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 02/05/2018 PRISCILLA HAGEN MD Ot Z95.0 PRESENCE OF CARDIAC PACEMAKER 02/05/2018 PRISCILLA HAGEN MD Ot A41.51 SEPSIS DUE TO ESCHERICHIA COLI [E. COLI] 02/05/2018 PRISCILLA HAGEN MD Ot E11.9 TYPE 2 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 WITHOUT COMPLIC 02/05/2018 PRISCILLA HAGEN MD Ot E86.0 DEHYDRATION 02/05/2018 PRISCILLA HAGEN MD Ot I12.9 HYPERTENSIVE CHRONIC KIDNEY DISEASE W ST 02/05/2018 PRISCILLA HAGEN MD Ot I25.10 ATHSCL HEART DISEASE OF [place] CORONARY 02/05/2018 PRISCILLA HAGEN MD, Ot N18.3 CHRONIC KIDNEY DISEASE, STAGE 3 (MODERAT 02/05/2018 PRISCILLA HAGEN MD, Ot N39.0 URINARY TRACT INFECTION, SITE NOT SPECIF 02/05/2018 PRISCILLA HAGEN MD, Ot R42 DIZZINESS AND GIDDINESS 02/05/2018 PRISCILLA HAGEN MD Ot Z79.4 CORRECTION (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 02/05/2018 PRISCILLA HAGEN MD Ot Z95.0 PRESENCE OF CARDIAC PACEMAKER 03/11/2018 JOSÉ LUIS OBRIEN, JARROD Chase Ot M17.12 UNILATERAL PRIMARY OSTEOARTHRITIS, LEFT 03/16/2018 MARCELO ROJAS, JOE Sherman Ot E04.1 NONTOXIC SINGLE THYROID NODULE 03/16/2018 ANTHONY GARZA Ot E04.1 NONTOXIC SINGLE THYROID NODULE 03/16/2018 ANTHONY GARZA Ot 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 03/16/2018 ANTHONY GARZA Ot E11.43 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 03/16/2018 ANTHONY GARZA Ot E78.5 HYPERLIPIDEMIA, UNSPECIFIED 03/16/2018 ANTHONY GARZA Ot 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 [place]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 03/16/2018 ANTHONY GARZA Ot I25.10 ATHSCL HEART DISEASE OF [place] CORONARY 03/16/2018 ANTHONY GARZA Ot I50.9 HEART FAILURE, UNSPECIFIED 03/16/2018 ANTHONY GARZA Ot K21.9 GASTRO-ESOPHAGEAL REFLUX DISEASE WITHOUT 03/16/2018 ANTHONY GARZA Ot N18.3 CHRONIC KIDNEY DISEASE, STAGE 3 (MODERAT 03/16/2018 ANTHONY GARZA Ot Z08 ENCNTR FOR FOLLOW-UP EXAM AFTER TRTMT FO 03/16/2018 ANTHONY GARZA Ot Z79.02 SERVICE DISMANTLER (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 OF ANTITHROMBOTI 03/16/2018 ANTHONY GARZA Ot Z79.4 SERVICE DISMANTLER (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 03/16/2018 ANTHONY GARZA Ot Z79.899 OTHER CORRECTION (CURRENT) DRUG THERAPY 03/16/2018 ANTHONY GARZA Ot Z85.3 PERSONAL HISTORY OF MALIGNANT NEOPLASM O 03/16/2018 ANTHONY GARZA Ot Z95.5 PRESENCE OF CORONARY ANGIOPLASTY IMPLANT 03/16/2018 DENIS WEAV[employer] SALES AGENT [employer] INS[employer]ANCE-C Ot E11.9 TYPE 2 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 WITHOUT COMPLIC 03/16/2018 DENIS WEAV[employer] SALES AGENT [employer] INS[employer]ANCE-C Ot E55.9 VITAMIN D DEFICIENCY, UNSPECIFIED 03/16/2018 DENIS WEAVER SALES AGENT [employer] INS[employer]ANCE-C Ot E78.5 HYPERLIPIDEMIA, UNSPECIFIED 03/16/2018 NEWDENIS SALES AGENT FI[employer] INSURANCE-C Ot E87.2 ACIDOSIS 03/16/2018 NEWDENIS SALES AGENT FI[employer] INSURANCE-C Ot I12.9 HYPERTENSIVE CHRONIC KIDNEY DISEASE W ST 03/16/2018 NEWDENIS [employer] SAL[employer] AGENT FI[employer]ANCE-C Ot I25.10 ATHSCL HEART DISEASE OF [place] CORONARY 03/16/2018 DENIS WEAV[employer] SALES AGENT [employer] INS[employer]ANCE-C Ot K21.9 GASTRO-ESOPHAGEAL REFLUX DISEASE WITHOUT 03/16/2018 NEWDENIS SALES AGENT [employer] INS[employer]ANCE-C Ot N18.3 CHRONIC KIDNEY DISEASE, STAGE 3 (MODERAT 03/16/2018 PANTERA ROJAS, VANGIE Ot Z01.818 ENCOUNTER FOR OTHER PREPROCEDURAL EXAMIN 03/16/2018 JOSÉ LUIS OBRIEN, JARROD Chase Ot M17.12 UNILATERAL PRIMARY OSTEOARTHRITIS, LEFT 03/17/2018 ANTHONY GARZA Ot E04.1 NONTOXIC SINGLE THYROID NODULE 03/17/2018 ANTHONY GARZA Ot 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 03/17/2018 ANTHONY GARZA Ot E11.43 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 03/17/2018 ANTHONY GARZA Ot E78.5 HYPERLIPIDEMIA, UNSPECIFIED 03/17/2018 ANTHONY GARZA Ot 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 KD[place]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 03/17/2018 ANTHONY GARZA Ot I25.10 ATHSCL HEART DISEASE OF [place] CORONARY 03/17/2018 ANTHONY GARZA Ot I50.9 HEART FAILURE, UNSPECIFIED 03/17/2018 ANTHONY GARZA Ot K21.9 GASTRO-ESOPHAGEAL REFLUX DISEASE WITHOUT 03/17/2018 ANTHONY GARZA Ot N18.3 CHRONIC KIDNEY DISEASE, STAGE 3 (MODERAT 03/17/2018 ANTHONY GARZA Ot Z08 ENCNTR FOR FOLLOW-UP EXAM AFTER TRTMT FO 03/17/2018 GREG, ANTHONY Bender Ot Z79.02 SERVICE DISMANTLER (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 OF ANTITHROMBOTI 03/17/2018 ANTHONY GARZA Ot Z79.4 SERVICE DISMANTLER (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 03/17/2018 ANTHONY GARZA Ot Z79.899 OTHER CORRECTION (CURRENT) DRUG THERAPY 03/17/2018 GREGANTHONY Ot Z85.3 PERSONAL HISTORY OF MALIGNANT NEOPLASM O 03/17/2018 ANTHONY GARZA Ot Z95.5 PRESENCE OF CORONARY ANGIOPLASTY IMPLANT 04/05/2018 DENIS [employer] SALES AGENT [employer] INS[employer]ANCE-C Ot E11.9 TYPE 2 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 WITHOUT COMPLIC 04/05/2018 DENIS WEAV[employer] SALES AGENT [employer] INS[employer]ANCE-C Ot E55.9 VITAMIN D DEFICIENCY, UNSPECIFIED 04/05/2018 DENIS WEAV[employer] SALES AGENT [employer] INS[employer]ANCE-C Ot E78.5 HYPERLIPIDEMIA, UNSPECIFIED 04/05/2018 DENIS WE[employer] SALES AGENT [employer]ANCE-C Ot E87.2 ACIDOSIS 04/05/2018 DENIS WEAV[employer] SALES AGENT [employer] INS[employer]ANCE-C Ot I12.9 HYPERTENSIVE CHRONIC KIDNEY DISEASE W ST 04/05/2018 DENIS WE[employer] SALES AGENT [employer]ANCE-C Ot I25.10 ATHSCL HEART DISEASE OF [place] CORONARY 04/05/2018 DENIS WE[employer] SALES AGENT [employer]ANCE-C Ot K21.9 GASTRO-ESOPHAGEAL REFLUX DISEASE WITHOUT 04/05/2018 DENIS WE[employer] SALES AGENT [employer]ANCE-C Ot N18.3 CHRONIC KIDNEY DISEASE, STAGE 3 (MODERAT 04/07/2018 ANTHONY GARZA Ot E04.1 NONTOXIC SINGLE THYROID NODULE 04/07/2018 ANTHONY GARZA Ot 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 04/07/2018 ANTHONY GARZA Ot E11.43 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 04/07/2018 ANTHONY GARZA Ot E78.5 HYPERLIPIDEMIA, UNSPECIFIED 04/07/2018 ANTHONY GARZA Ot 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 [place]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 04/07/2018 ANTHONY GARZA Ot I25.10 ATHSCL HEART DISEASE OF [place] CORONARY 04/07/2018 ANTHONY GARZA Ot I50.9 HEART FAILURE, UNSPECIFIED 04/07/2018 ANTHONY GARZA Ot K21.9 GASTRO-ESOPHAGEAL REFLUX DISEASE WITHOUT 04/07/2018 ANTHONY GARZA Ot N18.3 CHRONIC KIDNEY DISEASE, STAGE 3 (MODERAT 04/07/2018 ANTHONY GARZA Ot Z08 ENCNTR FOR FOLLOW-UP EXAM AFTER TRTMT FO 04/07/2018 ANTHONY GARZA Ot Z79.02 CORRECTION (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 OF ANTITHROMBOTI 04/07/2018 ANTHONY GARZA Ot Z79.4 SERVICE DISMANTLER (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 04/07/2018 ANTHONY GARZA Ot Z79.899 OTHER CORRECTION (CURRENT) DRUG THERAPY 04/07/2018 ANTHONY GARZA Ot Z85.3 PERSONAL HISTORY OF MALIGNANT NEOPLASM O 04/07/2018 ANTHONY GARZA Ot Z95.5 PRESENCE OF CORONARY ANGIOPLASTY IMPLANT 04/27/2018 NAOMY KING CONSTRUCTION MANAGEMENT ASSISTANT Ot Z12.31 ENCNTR SCREEN MAMMOGRAM FOR MALIGNANT NE 04/29/2018 NAOMY KING CONSTRUCTION MANAGEMENT ASSISTANT Ot 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 04/29/2018 NAOMY KING CONSTRUCTION MANAGEMENT ASSISTANT Ot Z12.31 ENCNTR SCREEN MAMMOGRAM FOR MALIGNANT NE 04/29/2018 ANTHONY GARZA Ot E04.1 NONTOXIC SINGLE THYROID NODULE 04/29/2018 ANTHONY GARZA Ot 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 04/29/2018 ANTHONY GARZA Ot E11.43 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 04/29/2018 ANTHONY GARZA Ot E78.5 HYPERLIPIDEMIA, UNSPECIFIED 04/29/2018 ANTHONY GARZA Ot 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 KDNY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 04/29/2018 ANTHONY GARZA Ot I25.10 ATHSCL HEART DISEASE OF [place] CORONARY 04/29/2018 ANTHONY GARZA Ot I50.9 HEART FAILURE, UNSPECIFIED 04/29/2018 ANTHONY GARZA Ot K21.9 GASTRO-ESOPHAGEAL REFLUX DISEASE WITHOUT 04/29/2018 ANTHONY GARZA Ot N18.3 CHRONIC KIDNEY DISEASE, STAGE 3 (MODERAT 04/29/2018 ANTHONY GARZA Ot Z08 ENCNTR FOR FOLLOW-UP EXAM AFTER TRTMT FO 04/29/2018 ANTHONY GARZA Ot Z79.02 SERVICE DISMANTLER (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 OF ANTITHROMBOTI 04/29/2018 ANTHONY GARZA Ot Z79.4 SERVICE DISMANTLER (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 04/29/2018 ANTHONY GARZA Ot Z79.899 OTHER CORRECTION (CURRENT) DRUG THERAPY 04/29/2018 ANTHONY GARZA Ot Z85.3 PERSONAL HISTORY OF MALIGNANT NEOPLASM O 04/29/2018 ANTHONY GARZA Ot Z95.5 PRESENCE OF CORONARY ANGIOPLASTY IMPLANT 05/18/2018 KING NAOMY Diaz CONSTRUCTION MANAGEMENT ASSISTANT Ot 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 05/18/2018 KING NAOMY Diaz CONSTRUCTION MANAGEMENT ASSISTANT Ot Z12.31 ENCNTR SCREEN MAMMOGRAM FOR MALIGNANT [...] culture - 12/26/16 07:50 Bacterial urine culture [id number] NRG COLONY COUNT >100,000/ML NRG FTX;REPORTABLE SENSITIVITY [...] measurement by glucometer (mass/volume) 163 mg/dL 70-110 Complete urinalysis with reflex to culture - 08/09/17 16:23 Urine color determination YELLOW NRG Urine clarity determination CLEAR NRG Urine pH measurement by test strip 5 5-9 Specific gravity of urine by test strip 1.015 1.016- 1.022 Urine protein assay by test strip, semi-quantitative NEGATIVE NEGATIVE Urine glucose detection by automated test strip NEGATIVE NEGATIVE Erythrocytes detection in urine sediment by light microscopy NEGATIVE NEGATIVE Urine ketones detection by automated test strip NEGATIVE NEGATIVE Urine nitrite detection by test strip NEGATIVE NEGATIVE Urine total bilirubin detection by test strip NEGATIVE NEGATIVE Urine urobilinogen measurement by automated test strip (mass/volume) NORMAL NORMAL Urine leukocyte esterase detection by dipstick NEGATIVE NEGATIVE Automated urine sediment erythrocyte count by microscopy (number/high power field) NONE NRG Automated urine sediment leukocyte count by microscopy (number/high power field ) NONE NRG Bacteria detection in urine sediment by light microscopy TRACE NRG Squamous epithelial cells detection in urine sediment by light microscopy 2-5 NRG Crystals detection in urine sediment by light microscopy NONE NRG Casts detection in urine sediment by light microscopy PRESENT NRG Mucus detection in urine sediment by light microscopy NEGATIVE NRG Complete urinalysis with reflex to culture NO NRG Granular casts detection in urine sediment by light microscopy 2-5 NRG Influenza virus A and B antigen detection - 08/09/17 16:23 CALL POSITIVES (F1 HELP) DR PRATT NRG FLU RESULT POSITIVE FOR INFLUENZA B ANTIGEN, NEG FOR A ANTIGEN, BY IA NRG Complete blood count (CBC) with automated white blood cell (WBC) differential - 08/09/17 16:30 Blood leukocytes automated count (number/volume) 3.2 10*3/uL 4.3-11.0 Blood erythrocytes automated count (number/volume) 5.61 10*6/uL 4.35-5.85 Venous blood hemoglobin measurement (mass/volume) 15.1 g/dL 11.5-16.0 Blood hematocrit (volume fraction) 45 % 35-52 Automated erythrocyte mean corpuscular volume 81 [foz_us] 80-99 Automated erythrocyte mean corpuscular hemoglobin (mass per erythrocyte) 27 pg 25-34 Automated erythrocyte mean corpuscular hemoglobin concentration measurement ( mass/volume) 33 g/dL 32-36 Automated erythrocyte distribution width ratio 15.9 % 10.0-14.5 Automated blood platelet count (count/volume) 126 10*3/uL 130-400 Automated blood platelet mean volume measurement 11.0 [foz_us] 7.4-10.4 Automated blood neutrophils/100 leukocytes 49 % 42-75 Automated blood lymphocytes/100 leukocytes 34 % 12-44 Blood monocytes/100 leukocytes 17 % 0-12 Automated blood eosinophils/100 leukocytes 0 % 0-10 Automated blood basophils/100 leukocytes 1 % 0-10 Blood neutrophils automated count (number/volume) 1.6 10*3 1.8-7.8 Blood lymphocytes automated count (number/volume) 1.1 10*3 1.0-4.0 Blood monocytes automated count (number/volume) 0.5 10*3 0.0-1.0 Automated eosinophil count 0.0 10*3/uL 0.0-0.3 Automated blood basophil count (count/volume) 0.0 10*3/uL 0.0-0.1 Comprehensive metabolic panel - 08/09/17 16:30 Serum or plasma sodium measurement (moles/volume) 136 mmol/L 135-145 Serum or plasma potassium measurement (moles/volume) 4.0 mmol/L 3.6-5.0 Serum or plasma chloride measurement (moles/volume) 98 mmol/L 98-107 Carbon dioxide 26 mmol/L 21-32 Serum or plasma anion gap determination (moles/volume) 12 mmol/L 5-14 Serum or plasma urea nitrogen measurement (mass/volume) 26 mg/dL 7-18 Serum or plasma creatinine measurement (mass/volume) 1.59 mg/dL 0.60-1.30 Serum or plasma urea nitrogen/creatinine mass ratio 16 NRG Serum or plasma creatinine measurement with calculation of estimated glomerular filtration rate 31 NRG Serum or plasma glucose measurement (mass/volume) 79 mg/dL 70-105 Serum or plasma calcium measurement (mass/volume) 9.1 mg/dL 8.5-10.1 Serum or plasma total bilirubin measurement (mass/volume) 0.6 mg/dL 0.1-1.0 Serum or plasma alkaline phosphatase measurement (enzymatic activity/volume) 84 U/L 40-136 Serum or plasma aspartate aminotransferase measurement (enzymatic activity/ volume) 47 U/L 5-34 Serum or plasma alanine aminotransferase measurement (enzymatic activity/volume ) 29 U/L 0-55 Serum or plasma protein measurement (mass/volume) 7.9 g/dL 6.4-8.2 Serum or plasma albumin measurement (mass/volume) 3.9 g/dL 3.2-4.5 Automated blood complete blood count (hemogram) panel - 09/23/17 10:30 Blood leukocytes automated count (number/volume) 9.0 10*3/uL 4.3-11.0 Blood erythrocytes automated count (number/volume) 6.08 10*6/uL 4.35-5.85 Venous blood hemoglobin measurement (mass/volume) 15.6 g/dL 11.5-16.0 Blood hematocrit (volume fraction) 48 % 35-52 Automated erythrocyte mean corpuscular volume 79 [foz_us] 80-99 Automated erythrocyte mean corpuscular hemoglobin (mass per erythrocyte) 26 pg 25-34 Automated erythrocyte mean corpuscular hemoglobin concentration measurement ( mass/volume) 33 g/dL 32-36 Automated erythrocyte distribution width ratio 18.7 % 10.0-14.5 Automated blood platelet count (count/volume) 205 10*3/uL 130-400 Automated blood platelet mean volume measurement 9.8 [foz_us] 7.4-10.4 PT panel in platelet poor plasma by coagulation assay - 09/23/17 10:30 Prothrombin time (PT) in platelet poor plasma by coagulation assay 14.7 s 12.2-14.7 INR in platelet poor plasma or blood by coagulation assay 1.1 0.8-1.4 Activated partial thromboplastin time (aPTT) in platelet poor plasma bycoagulation assay - 09/23/17 10:30 Activated partial thromboplastin time (aPTT) in platelet poor plasma bycoagulation assay 29 s 24-35 Comprehensive metabolic panel - 09/23/17 10:30 Serum or plasma sodium measurement (moles/volume) 141 mmol/L 135-145 Serum or plasma potassium measurement (moles/volume) 3.7 mmol/L 3.6-5.0 Serum or plasma chloride measurement (moles/volume) 99 mmol/L 98-107 Carbon dioxide 31 mmol/L 21-32 Serum or plasma anion gap determination (moles/volume) 11 mmol/L 5-14 Serum or plasma urea nitrogen measurement (mass/volume) 37 mg/dL 7-18 Serum or plasma creatinine measurement (mass/volume) 1.93 mg/dL 0.60-1.30 Serum or plasma urea nitrogen/creatinine mass ratio 19 NRG Serum or plasma creatinine measurement with calculation of estimated glomerular filtration rate 25 NRG Serum or plasma glucose measurement (mass/volume) 166 mg/dL 70-105 Serum or plasma calcium measurement (mass/volume) 10.1 mg/dL 8.5-10.1 Serum or plasma total bilirubin measurement (mass/volume) 1.1 mg/dL 0.1-1.0 Serum or plasma alkaline phosphatase measurement (enzymatic activity/volume) 84 U/L 40-136 Serum or plasma aspartate aminotransferase measurement (enzymatic activity/ volume) 17 U/L 5-34 Serum or plasma alanine aminotransferase measurement (enzymatic activity/volume ) 15 U/L 0-55 Serum or plasma protein measurement (mass/volume) 8.4 g/dL 6.4-8.2 Serum or plasma albumin measurement (mass/volume) 4.1 g/dL 3.2-4.5 Lipid 1996 panel - 09/23/17 10:30 Serum or plasma triglyceride measurement (mass/volume) 141 mg/dL <150 Serum or plasma cholesterol measurement (mass/volume) 136 mg/dL < 200 Serum or plasma cholesterol in HDL measurement (mass/volume) 32 mg/ dL 40-60 Cholesterol in LDL [mass/volume] in serum or plasma by direct assay 79 mg/dL 1-129 Serum or plasma cholesterol in VLDL measurement (mass/volume) 28 mg/ dL 5-40 Methicillin resistant Staphylococcus aureus (MRSA) screening culture - 10:30 Methicillin resistant Staphylococcus aureus (MRSA) screening culture NEG NRG Capillary blood glucose measurement by glucometer (mass/volume) - 09/23/17 21: 48 Capillary blood glucose measurement by glucometer (mass/volume) 235 mg/dL 70-110 Automated blood complete blood count (hemogram) panel - 09/24/17 03:15 Blood leukocytes automated count (number/volume) 7.3 10*3/uL 4.3-11.0 Blood erythrocytes automated count (number/volume) 5.03 10*6/uL 4.35-5.85 Venous blood hemoglobin measurement (mass/volume) 13.0 g/dL 11.5-16.0 Blood hematocrit (volume fraction) 40 % 35-52 Automated erythrocyte mean corpuscular volume 80 [foz_us] 80-99 Automated erythrocyte mean corpuscular hemoglobin (mass per erythrocyte) 26 pg 25-34 Automated erythrocyte mean corpuscular hemoglobin concentration measurement ( mass/volume) 32 g/dL 32-36 Automated erythrocyte distribution width ratio 17.5 % 10.0-14.5 Automated blood platelet count (count/volume) 166 10*3/uL 130-400 Automated blood platelet mean volume measurement 10.4 [foz_us] 7.4-10.4 Whole blood basic metabolic panel - 09/24/17 03:15 Serum or plasma sodium measurement (moles/volume) 139 mmol/L 135-145 Serum or plasma potassium measurement (moles/volume) 3.7 mmol/L 3.6-5.0 Serum or plasma chloride measurement (moles/volume) 102 mmol/L 98-107 Carbon dioxide 28 mmol/L 21-32 Serum or plasma anion gap determination (moles/volume) 9 mmol/L 5-14 Serum or plasma urea nitrogen measurement (mass/volume) 35 mg/dL 7-18 Serum or plasma creatinine measurement (mass/volume) 1.54 mg/dL 0.60-1.30 Serum or plasma urea nitrogen/creatinine mass ratio 23 NRG Serum or plasma creatinine measurement with calculation of estimated glomerular filtration rate 33 NRG Serum or plasma glucose measurement (mass/volume) 122 mg/dL 70-105 Serum or plasma calcium measurement (mass/volume) 8.8 mg/dL 8.5-10.1 Capillary blood glucose measurement by glucometer (mass/volume) - 09/24/17 07: 54 Capillary blood glucose measurement by glucometer (mass/volume) 125 mg/dL 70-110 Complete blood count (CBC) with automated white blood cell (WBC) differential - 12/22/17 19:20 Blood leukocytes automated count (number/volume) 9.7 10*3/uL 4.3-11.0 Blood erythrocytes automated count (number/volume) 4.96 10*6/uL 4.35-5.85 Venous blood hemoglobin measurement (mass/volume) 13.7 g/dL 11.5-16.0 Blood hematocrit (volume fraction) 41 % 35-52 Automated erythrocyte mean corpuscular volume 83 [foz_us] 80-99 Automated erythrocyte mean corpuscular hemoglobin (mass per erythrocyte) 28 pg 25-34 Automated erythrocyte mean corpuscular hemoglobin concentration measurement ( mass/volume) 33 g/dL 32-36 Automated erythrocyte distribution width ratio 15.8 % 10.0-14.5 Automated blood platelet count (count/volume) 297 10*3/uL 130-400 Automated blood platelet mean volume measurement 9.7 [foz_us] 7.4-10.4 Automated blood neutrophils/100 leukocytes 66 % 42-75 Automated blood lymphocytes/100 leukocytes 20 % 12-44 Blood monocytes/100 leukocytes 12 % 0-12 Automated blood eosinophils/100 leukocytes 2 % 0-10 Automated blood basophils/100 leukocytes 0 % 0-10 Blood neutrophils automated count (number/volume) 6.4 10*3 1.8-7.8 Blood lymphocytes automated count (number/volume) 2.0 10*3 1.0-4.0 Blood monocytes automated count (number/volume) 1.1 10*3 0.0-1.0 Automated eosinophil count 0.2 10*3/uL 0.0-0.3 Automated blood basophil count (count/volume) 0.0 10*3/uL 0.0-0.1 PT panel in platelet poor plasma by coagulation assay - 12/22/17 19:20 Prothrombin time (PT) in platelet poor plasma by coagulation assay 15.2 s 12.2-14.7 INR in platelet poor plasma or blood by coagulation assay 1.2 0.8-1.4 Activated partial thromboplastin time (aPTT) in platelet poor plasma bycoagulation assay - 12/22/17 19:20 Activated partial thromboplastin time (aPTT) in platelet poor plasma bycoagulation assay 30 s 24-35 Comprehensive metabolic panel - 12/22/17 19:20 Serum or plasma sodium measurement (moles/volume) 135 mmol/L 135-145 Serum or plasma potassium measurement (moles/volume) 3.6 mmol/L 3.6-5.0 Serum or plasma chloride measurement (moles/volume) 90 mmol/L 98-107 Carbon dioxide 26 mmol/L 21-32 Serum or plasma anion gap determination (moles/volume) 19 mmol/L 5-14 Serum or plasma urea nitrogen measurement (mass/volume) 32 mg/dL 7-18 Serum or plasma creatinine measurement (mass/volume) 1.94 mg/dL 0.60-1.30 Serum or plasma urea nitrogen/creatinine mass ratio 16 NRG Serum or plasma creatinine measurement with calculation of estimated glomerular filtration rate 25 NRG Serum or plasma glucose measurement (mass/volume) 252 mg/dL 70-105 Serum or plasma calcium measurement (mass/volume) 10.0 mg/dL 8.5-10.1 Serum or plasma total bilirubin measurement (mass/volume) 0.8 mg/dL 0.1-1.0 Serum or plasma alkaline phosphatase measurement (enzymatic activity/volume) 91 U/L 40-136 Serum or plasma aspartate aminotransferase measurement (enzymatic activity/ volume) 16 U/L 5-34 Serum or plasma alanine aminotransferase measurement (enzymatic activity/volume ) 12 U/L 0-55 Serum or plasma protein measurement (mass/volume) 8.0 g/dL 6.4-8.2 Serum or plasma albumin measurement (mass/volume) 3.7 g/dL 3.2-4.5 Magnesium - 12/22/17 19:20 Magnesium 1.7 mg/dL 1.8-2.4 Serum or plasma C reactive protein measurement (mass/volume) - 12/22/17 19:20 Serum or plasma C reactive protein measurement (mass/volume) 8.25 mg /dL 0.00-0.50 Serum or plasma troponin i.cardiac measurement (mass/volume) - 12/22/17 19:20 Serum or plasma troponin i.cardiac measurement (mass/volume) < ng/ mL <0.30 Myoglobin, serum - 12/22/17 19:20 Myoglobin, serum 158.8 ng/mL 10.0-92.0 Serum or plasma lithium measurement (moles/volume) - 12/22/17 19:20 BNP level 397.0 pg/mL <100.0 Capillary blood glucose measurement by glucometer (mass/volume) - 12/23/17 05: 13 Capillary blood glucose measurement by glucometer (mass/volume) 102 mg/dL 70-110 Complete blood count (CBC) with automated white blood cell (WBC) differential - 12/23/17 05:27 Blood leukocytes automated count (number/volume) 8.7 10*3/uL 4.3-11.0 Blood erythrocytes automated count (number/volume) 4.62 10*6/uL 4.35-5.85 Venous blood hemoglobin measurement (mass/volume) 13.3 g/dL 11.5-16.0 Blood hematocrit (volume fraction) 39 % 35-52 Automated erythrocyte mean corpuscular volume 84 [foz_us] 80-99 Automated erythrocyte mean corpuscular hemoglobin (mass per erythrocyte) 29 pg 25-34 Automated erythrocyte mean corpuscular hemoglobin concentration measurement ( mass/volume) 34 g/dL 32-36 Automated erythrocyte distribution width ratio 15.6 % 10.0-14.5 Automated blood platelet count (count/volume) 297 10*3/uL 130-400 Automated blood platelet mean volume measurement 9.7 [foz_us] 7.4-10.4 Automated blood neutrophils/100 leukocytes 58 % 42-75 Automated blood lymphocytes/100 leukocytes 28 % 12-44 Blood monocytes/100 leukocytes 11 % 0-12 Automated blood eosinophils/100 leukocytes 3 % 0-10 Automated blood basophils/100 leukocytes 1 % 0-10 Blood neutrophils automated count (number/volume) 5.0 10*3 1.8-7.8 Blood lymphocytes automated count (number/volume) 2.5 10*3 1.0-4.0 Blood monocytes automated count (number/volume) 0.9 10*3 0.0-1.0 Automated eosinophil count 0.3 10*3/uL 0.0-0.3 Automated blood basophil count (count/volume) 0.0 10*3/uL 0.0-0.1 Comprehensive metabolic panel - 12/23/17 05:27 Serum or plasma sodium measurement (moles/volume) 139 mmol/L 135-145 Serum or plasma potassium measurement (moles/volume) 3.3 mmol/L 3.6-5.0 Serum or plasma chloride measurement (moles/volume) 95 mmol/L 98-107 Carbon dioxide 31 mmol/L 21-32 Serum or plasma anion gap determination (moles/volume) 13 mmol/L 5-14 Serum or plasma urea nitrogen measurement (mass/volume) 31 mg/dL 7-18 Serum or plasma creatinine measurement (mass/volume) 1.83 mg/dL 0.60-1.30 Serum or plasma urea nitrogen/creatinine mass ratio 17 NRG Serum or plasma creatinine measurement with calculation of estimated glomerular filtration rate 27 NRG Serum or plasma glucose measurement (mass/volume) 94 mg/dL 70-105 Serum or plasma calcium measurement (mass/volume) 9.8 mg/dL 8.5-10.1 Serum or plasma total bilirubin measurement (mass/volume) 0.6 mg/dL 0.1-1.0 Serum or plasma alkaline phosphatase measurement (enzymatic activity/volume) 84 U/L 40-136 Serum or plasma aspartate aminotransferase measurement (enzymatic activity/ volume) 17 U/L 5-34 Serum or plasma alanine aminotransferase measurement (enzymatic activity/volume ) 12 U/L 0-55 Serum or plasma protein measurement (mass/volume) 7.6 g/dL 6.4-8.2 Serum or plasma albumin measurement (mass/volume) 3.7 g/dL 3.2-4.5 Magnesium - 12/23/17 05:27 Magnesium 2.0 mg/dL 1.8-2.4 Serum or plasma troponin i.cardiac measurement (mass/volume) - 12/23/17 05:27 Serum or plasma troponin i.cardiac measurement (mass/volume) < ng/ mL <0.30 Lipid 1996 panel - 12/23/17 05:27 Serum or plasma triglyceride measurement (mass/volume) 136 mg/dL <150 Serum or plasma cholesterol measurement (mass/volume) 135 mg/dL < 200 Serum or plasma cholesterol in HDL measurement (mass/volume) 25 mg/ dL 40-60 Cholesterol in LDL [mass/volume] in serum or plasma by direct assay 86 mg/dL 1-129 Serum or plasma cholesterol in VLDL measurement (mass/volume) 27 mg/ dL 5-40 Capillary blood glucose measurement by glucometer (mass/volume) - 12/23/17 11: 01 Capillary blood glucose measurement by glucometer (mass/volume) 229 mg/dL 70-110 Complete urinalysis with reflex to culture - 02/03/18 15:55 Urine color determination YELLOW NRG Urine clarity determination CLEAR NRG Urine pH measurement by test strip 8 5-9 Specific gravity of urine by test strip 1.010 1.016- 1.022 Urine protein assay by test strip, semi-quantitative NEGATIVE NEGATIVE Urine glucose detection by automated test strip 1+ NEGATIVE Erythrocytes detection in urine sediment by light microscopy NEGATIVE NEGATIVE Urine ketones detection by automated test strip NEGATIVE NEGATIVE Urine nitrite detection by test strip NEGATIVE NEGATIVE Urine total bilirubin detection by test strip NEGATIVE NEGATIVE Urine urobilinogen measurement by automated test strip (mass/volume) NORMAL NORMAL Urine leukocyte esterase detection by dipstick 1+ NEGATIVE Automated urine sediment erythrocyte count by microscopy (number/high power field) NONE NRG Automated urine sediment leukocyte count by microscopy (number/high power field ) [HPF] NRG Bacteria detection in urine sediment by light microscopy LARGE NRG Squamous epithelial cells detection in urine sediment by light microscopy 0-2 NRG Crystals detection in urine sediment by light microscopy NONE NRG Casts detection in urine sediment by light microscopy NONE NRG Mucus detection in urine sediment by light microscopy NEGATIVE NRG Complete urinalysis with reflex to culture NO NRG Bacterial urine culture - 02/03/18 15:55 Bacterial urine culture [id number] NRG COLONY COUNT >100,000/ML NRG FTX;REPORTABLE RML SENSITIVITY REPORTED 02/06/18 8:05 NRG RML Sensitivity Panel - 02/03/18 15:55 Gentamicin susceptibility test by minimum inhibitory concentration < = NRG Trimethoprim/sulfamethoxazole susceptibility test by minimum inhibitoryconcentration <= NRG Levofloxacin susceptibility test by minimum inhibitory concentration <= NRG Ampicillin susceptibility test by minimum inhibitory concentration > NRG Cefazolin susceptibility test by minimum inhibitory concentration 2 NRG Ceftriaxone susceptibility test by minimum inhibitory concentration <= NRG Ciprofloxacin susceptibility test by minimum inhibitory concentration <= NRG Meropenem susceptibility test by minimum inhibitory concentration < = NRG Nitrofurantoin susceptibility test by minimum inhibitory concentration 32 NRG Amoxicillin and clavulanate potassium susc CHERRY <= NRG Complete blood count (CBC) with automated white blood cell (WBC) differential - 02/03/18 16:10 Blood leukocytes automated count (number/volume) 8.4 10*3/uL 4.3-11.0 Blood erythrocytes automated count (number/volume) 5.55 10*6/uL 4.35-5.85 Venous blood hemoglobin measurement (mass/volume) 15.6 g/dL 11.5-16.0 Blood hematocrit (volume fraction) 45 % 35-52 Automated erythrocyte mean corpuscular volume 82 [foz_us] 80-99 Automated erythrocyte mean corpuscular hemoglobin (mass per erythrocyte) 28 pg 25-34 Automated erythrocyte mean corpuscular hemoglobin concentration measurement ( mass/volume) 34 g/dL 32-36 Automated erythrocyte distribution width ratio 15.0 % 10.0-14.5 Automated blood platelet count (count/volume) 261 10*3/uL 130-400 Automated blood platelet mean volume measurement 9.9 [foz_us] 7.4-10.4 Automated blood neutrophils/100 leukocytes 64 % 42-75 Automated blood lymphocytes/100 leukocytes 26 % 12-44 Blood monocytes/100 leukocytes 9 % 0-12 Automated blood eosinophils/100 leukocytes 1 % 0-10 Automated blood basophils/100 leukocytes 0 % 0-10 Blood neutrophils automated count (number/volume) 5.4 10*3 1.8-7.8 Blood lymphocytes automated count (number/volume) 2.2 10*3 1.0-4.0 Blood monocytes automated count (number/volume) 0.7 10*3 0.0-1.0 Automated eosinophil count 0.1 10*3/uL 0.0-0.3 Automated blood basophil count (count/volume) 0.0 10*3/uL 0.0-0.1 Fibrin D-dimer FEU measurement in platelet poor plasma (mass/volume) - 16:10 Fibrin D-dimer FEU measurement in platelet poor plasma (mass/volume) 0.46 ug/mL 0.00-0.49 Comprehensive metabolic panel - 02/03/18 16:10 Serum or plasma sodium measurement (moles/volume) 136 mmol/L 135-145 Serum or plasma potassium measurement (moles/volume) 4.1 mmol/L 3.6-5.0 Serum or plasma chloride measurement (moles/volume) 95 mmol/L 98-107 Carbon dioxide 28 mmol/L 21-32 Serum or plasma anion gap determination (moles/volume) 13 mmol/L 5-14 Serum or plasma urea nitrogen measurement (mass/volume) 31 mg/dL 7-18 Serum or plasma creatinine measurement (mass/volume) 1.72 mg/dL 0.60-1.30 Serum or plasma urea nitrogen/creatinine mass ratio 18 NRG Serum or plasma creatinine measurement with calculation of estimated glomerular filtration rate 29 NRG Serum or plasma glucose measurement (mass/volume) 246 mg/dL 70-105 Serum or plasma calcium measurement (mass/volume) 9.9 mg/dL 8.5-10.1 Serum or plasma total bilirubin measurement (mass/volume) 0.7 mg/dL 0.1-1.0 Serum or plasma alkaline phosphatase measurement (enzymatic activity/volume) 80 U/L 40-136 Serum or plasma aspartate aminotransferase measurement (enzymatic activity/ volume) 16 U/L 5-34 Serum or plasma alanine aminotransferase measurement (enzymatic activity/volume ) 11 U/L 0-55 Serum or plasma protein measurement (mass/volume) 7.8 g/dL 6.4-8.2 Serum or plasma albumin measurement (mass/volume) 4.0 g/dL 3.2-4.5 Magnesium - 02/03/18 16:10 Magnesium 1.8 mg/dL 1.8-2.4 Blood lactic acid measurement (moles/volume) - 02/03/18 16:10 Blood lactic acid measurement (moles/volume) 2.87 mmol/L 0.50-2.00 Serum or plasma lactate measurement (moles/volume) - 02/03/18 18:10 Serum or plasma lactate measurement (moles/volume) 1.95 mmol/L 0.50-2.00 Bacterial blood culture - 02/03/18 18:35 Bacterial blood culture [facility] Capillary blood glucose measurement by glucometer (mass/volume) - 02/03/18 21: 00 Capillary blood glucose measurement by glucometer (mass/volume) 171 mg/dL 70-110 Capillary blood glucose measurement by glucometer (mass/volume) - 02/04/18 05: 15 Capillary blood glucose measurement by glucometer (mass/volume) 110 mg/dL 70-110 Complete blood count (CBC) with automated white blood cell (WBC) differential - 02/04/18 09:55 Blood leukocytes automated count (number/volume) 7.4 10*3/uL 4.3-11.0 Blood erythrocytes automated count (number/volume) 5.10 10*6/uL 4.35-5.85 Venous blood hemoglobin measurement (mass/volume) 14.1 g/dL 11.5-16.0 Blood hematocrit (volume fraction) 43 % 35-52 Automated erythrocyte mean corpuscular volume 85 [foz_us] 80-99 Automated erythrocyte mean corpuscular hemoglobin (mass per erythrocyte) 28 pg 25-34 Automated erythrocyte mean corpuscular hemoglobin concentration measurement ( mass/volume) 33 g/dL 32-36 Automated erythrocyte distribution width ratio 15.5 % 10.0-14.5 Automated blood platelet count (count/volume) 234 10*3/uL 130-400 Automated blood platelet mean volume measurement 9.8 [foz_us] 7.4-10.4 Automated blood neutrophils/100 leukocytes 55 % 42-75 Automated blood lymphocytes/100 leukocytes 33 % 12-44 Blood monocytes/100 leukocytes 10 % 0-12 Automated blood eosinophils/100 leukocytes 2 % 0-10 Automated blood basophils/100 leukocytes 0 % 0-10 Blood neutrophils automated count (number/volume) 4.1 10*3 1.8-7.8 Blood lymphocytes automated count (number/volume) 2.4 10*3 1.0-4.0 Blood monocytes automated count (number/volume) 0.8 10*3 0.0-1.0 Automated eosinophil count 0.2 10*3/uL 0.0-0.3 Automated blood basophil count (count/volume) 0.0 10*3/uL 0.0-0.1 Comprehensive metabolic panel - 02/04/18 09:55 Serum or plasma sodium measurement (moles/volume) 139 mmol/L 135-145 Serum or plasma potassium measurement (moles/volume) 3.9 mmol/L 3.6-5.0 Serum or plasma chloride measurement (moles/volume) 102 mmol/L 98-107 Carbon dioxide 29 mmol/L 21-32 Serum or plasma anion gap determination (moles/volume) 8 mmol/L 5-14 Serum or plasma urea nitrogen measurement (mass/volume) 31 mg/dL 7-18 Serum or plasma creatinine measurement (mass/volume) 1.62 mg/dL 0.60-1.30 Serum or plasma urea nitrogen/creatinine mass ratio 19 NRG Serum or plasma creatinine measurement with calculation of estimated glomerular filtration rate 31 NRG Serum or plasma glucose measurement (mass/volume) 120 mg/dL 70-105 Serum or plasma calcium measurement (mass/volume) 9.1 mg/dL 8.5-10.1 Serum or plasma total bilirubin measurement (mass/volume) 0.6 mg/dL 0.1-1.0 Serum or plasma alkaline phosphatase measurement (enzymatic activity/volume) 68 U/L 40-136 Serum or plasma aspartate aminotransferase measurement (enzymatic activity/ volume) 17 U/L 5-34 Serum or plasma alanine aminotransferase measurement (enzymatic activity/volume ) 11 U/L 0-55 Serum or plasma protein measurement (mass/volume) 6.8 g/dL 6.4-8.2 Serum or plasma albumin measurement (mass/volume) 3.5 g/dL 3.2-4.5 Capillary blood glucose measurement by glucometer (mass/volume) - 02/04/18 10: 57 Capillary blood glucose measurement by glucometer (mass/volume) 122 mg/dL 70-110 Capillary blood glucose measurement by glucometer (mass/volume) - 02/04/18 16: 03 Capillary blood glucose measurement by glucometer (mass/volume) 154 mg/dL 70-110 Capillary blood glucose measurement by glucometer (mass/volume) - 02/04/18 20: 42 Capillary blood glucose measurement by glucometer (mass/volume) 133 mg/dL 70-110 Capillary blood glucose measurement by glucometer (mass/volume) - 02/05/18 05: 11 Capillary blood glucose measurement by glucometer (mass/volume) 96 mg/dL 70-110 Complete blood count (CBC) with automated white blood cell (WBC) differential - 02/05/18 05:47 Blood leukocytes automated count (number/volume) 7.5 10*3/uL 4.3-11.0 Blood erythrocytes automated count (number/volume) 4.56 10*6/uL 4.35-5.85 Venous blood hemoglobin measurement (mass/volume) 13.1 g/dL 11.5-16.0 Blood hematocrit (volume fraction) 39 % 35-52 Automated erythrocyte mean corpuscular volume 85 [foz_us] 80-99 Automated erythrocyte mean corpuscular hemoglobin (mass per erythrocyte) 29 pg 25-34 Automated erythrocyte mean corpuscular hemoglobin concentration measurement ( mass/volume) 34 g/dL 32-36 Automated erythrocyte distribution width ratio 14.9 % 10.0-14.5 Automated blood platelet count (count/volume) 206 10*3/uL 130-400 Automated blood platelet mean volume measurement 10.4 [foz_us] 7.4-10.4 Automated blood neutrophils/100 leukocytes 55 % 42-75 Automated blood lymphocytes/100 leukocytes 33 % 12-44 Blood monocytes/100 leukocytes 10 % 0-12 Automated blood eosinophils/100 leukocytes 3 % 0-10 Automated blood basophils/100 leukocytes 0 % 0-10 Blood neutrophils automated count (number/volume) 4.1 10*3 1.8-7.8 Blood lymphocytes automated count (number/volume) 2.4 10*3 1.0-4.0 Blood monocytes automated count (number/volume) 0.7 10*3 0.0-1.0 Automated eosinophil count 0.2 10*3/uL 0.0-0.3 Automated blood basophil count (count/volume) 0.0 10*3/uL 0.0-0.1 Comprehensive metabolic panel - 02/05/18 05:47 Serum or plasma sodium measurement (moles/volume) 138 mmol/L 135-145 Serum or plasma potassium measurement (moles/volume) 4.2 mmol/L 3.6-5.0 Serum or plasma chloride measurement (moles/volume) 107 mmol/L 98-107 Carbon dioxide 20 mmol/L 21-32 Serum or plasma anion gap determination (moles/volume) 11 mmol/L 5-14 Serum or plasma urea nitrogen measurement (mass/volume) 23 mg/dL 7-18 Serum or plasma creatinine measurement (mass/volume) 1.28 mg/dL 0.60-1.30 Serum or plasma urea nitrogen/creatinine mass ratio 18 NRG Serum or plasma creatinine measurement with calculation of estimated glomerular filtration rate 40 NRG Serum or plasma glucose measurement (mass/volume) 99 mg/dL 70-105 Serum or plasma calcium measurement (mass/volume) 8.8 mg/dL 8.5-10.1 Serum or plasma total bilirubin measurement (mass/volume) 0.4 mg/dL 0.1-1.0 Serum or plasma alkaline phosphatase measurement (enzymatic activity/volume) 58 U/L 40-136 Serum or plasma aspartate aminotransferase measurement (enzymatic activity/ volume) 17 U/L 5-34 Serum or plasma alanine aminotransferase measurement (enzymatic activity/volume ) 8 U/L 0-55 Serum or plasma protein measurement (mass/volume) 6.1 g/dL 6.4-8.2 Serum or plasma albumin measurement (mass/volume) 3.3 g/dL 3.2-4.5 Capillary blood glucose measurement by glucometer (mass/volume) - 02/05/18 11: 01 Capillary blood glucose measurement by glucometer (mass/volume) 162 mg/dL 70-110 Encounters ACCT No. Visit Date/Time Discharge Status Pt. Type Provider Facility Loc./Unit Complaint [id number] 06/02/2018 15:52:00 06/02/2018 23:59:59 CLS Preadmit SKIP KERN APRN [facility] RAD CHRONIC KIDNEY DISEASE, STAGE 3 [id number] 04/28/2018 10:02:00 04/28/2018 23:59:59 CLS Outpatient NAOMY KING [facility] RAD SCREENING [id number] 03/16/2018 16:45:00 03/16/2018 23:59:59 CLS Preadmit NAOMY KING [facility] RAD SCREENING MAMMOGRAM, BREAST CANCER [id number] 03/16/2018 15:00:00 03/16/2018 23:59:59 CLS Outpatient ANTHONY GARZA [facility] ONC [id number] 02/03/2018 15:00:00 02/05/2018 11:25:00 DIS Inpatient PRISCILLA HAGEN MD [facility] 4TH UTI HYPOTENSION [id number] 01/28/2018 12:48:00 01/28/2018 23:59:59 CLS Outpatient JARROD DAVIS [facility] RAD LT KNEE PAIN,LT KNEE SWELLING [id number] 01/27/2018 13:15:00 01/27/2018 23:59:59 CLS Preadmit VANGIE MOTT MD [facility] ENDO DYSPHAGIA [id number] 01/21/2018 05:39:00 01/21/2018 23:59:59 CLS Outpatient VANGIE MOTT MD [facility] PREOP EGD [id number] 12/22/2017 21:23:00 12/23/2017 13:30:00 DIS Inpatient JOE ROBERTSON MD [facility] 4TH NEW ONSET AFIB, ATYPICAL CP R/O ACS, HYPOXIA [id number] 09/23/2017 08:17:00 09/24/2017 08:35:00 DIS Outpatient DIMPLE NOVOA MD [facility] CATH ABNORMAL BARRY,PVD,CAD [id number] 09/10/2017 13:53:00 09/10/2017 23:59:59 CLS Outpatient DENIS WEAVER [facility] RAD N18.3 CHRONIC KIDNEY DISEASE STAGE 3 [id number] 09/07/2017 14:05:00 09/07/2017 23:59:59 CLS Preadmit DIMPLE NOVOA MD [facility] CARD I25.10 CAD [id number] 08/13/2017 09:15:00 08/13/2017 23:59:59 CLS Preadmit ANTHONY GARZA [facility] RAD Z12.31 [id number] 08/09/2017 14:46:00 08/09/2017 18:00:00 DIS Emergency DARYL PIEDRA APRN [facility] ER DIARRHEA/COLD/FLU SYMPTOMS [id number] 03/12/2017 09:52:00 03/12/2017 23:59:59 CLS Outpatient ANTHONY GARZA [facility] ONC [id number] 02/11/2017 07:44:00 02/11/2017 23:59:59 CLS Outpatient JOE ROBERTSON MD [facility] RAD RT THYROID MASS [id number] 01/27/2017 10:41:00 01/27/2017 23:59:59 CLS Outpatient JOE ROBERTSON MD [facility] CARD THYROID NODULE [id number] 01/26/2017 15:00:00 01/26/2017 23:59:59 CLS Preadmit JOE ROBERTSON MD [facility] CARD THYROID NODULE [id number] 01/08/2017 11:10:00 01/08/2017 23:59:59 CLS Outpatient JOE ROBERTSON MD [facility] CARD THYROID NODULE [id number] 12/26/2016 07:30:00 12/27/2016 11:45:00 DIS Outpatient DIMPLE NOVOA MD [facility] CATH ABN STRESS TEST,CP, HTN, HLP,DM [id number] 12/24/2016 10:48:00 12/24/2016 23:59:59 CLS Outpatient GRECIA DIXON [facility] CARD CAD I25.10 [id number] 12/17/2016 12:08:00 12/17/2016 23:59:59 CLS Outpatient ANUP SULTANA [employer]STRUCTION MANAGEMENT ASSISTANT [facility] RAD THYROID NODULE [id number] 08/12/2016 12:12:00 08/12/2016 23:59:59 CLS Outpatient NAOMY KING [employer]STRUCTION MANAGEMENT ASSISTANT [facility] RAD SCREENING [id number] 06/06/2016 12:58:00 06/06/2016 23:59:59 CLS Outpatient DESTINEE SULTANA DO [facility] RAD THYROID NODULE [id number] 02/20/2016 12:58:00 02/20/2016 23:59:59 CLS Outpatient NAOMY KING [employer]STRUCTION MANAGEMENT ASSISTANT [facility] ONC [id number] 02/01/2016 08:32:00 02/01/2016 23:59:59 CLS Outpatient DIMPLE NOVOA MD [facility] RAD CAROTID STENOSIS, DIZZINESS [id number] 01/04/2016 11:01:00 01/04/2016 23:59:59 CLS Outpatient DIMPLE NOVOA MD [facility] RAD CAROTID STENOSIS [id number] 12/05/2015 14:52:00 12/06/2015 17:54:00 DIS Inpatient JOE ROBERTSON MD [facility] 4TH JARA,VERTIGO,URINARY TRACT INFECTION [id number] 11/22/2015 08:50:00 11/22/2015 12:00:00 DIS Outpatient JOE ROBERTSON MD [facility] WOUNDCARE [id number] 11/14/2015 07:23:00 11/14/2015 23:59:59 CLS Outpatient DESTINEE VANG MD [facility] CARD [id number] 10/23/2015 08:46:00 10/23/2015 23:59:59 CLS Outpatient JOE ROBERTSON MD [facility] RAD [id number] 10/05/2015 10:00:00 10/06/2015 09:44:00 DIS Inpatient JOE ROBERTSON MD [facility] 4TH NAUSEA,VOMITING,DIAHERRA, BLOODY STOOL [id number] 10/03/2015 10:31:00 10/03/2015 23:59:59 CLS Outpatient JOE ROBERTSON MD [facility] RAD SOB [id number] 09/25/2015 12:38:00 09/25/2015 23:59:59 CLS Outpatient NAFISA CHRIS MD [facility] RAD MULTI NODULUAR GOITER [id number] 07/16/2015 16:14:00 07/16/2015 23:59:59 CLS Outpatient JOE ROBERTSON MD [facility] LAB CDIFF, DIARHHEA [id number] 06/27/2015 06:32:00 06/27/2015 23:59:59 CLS Outpatient JOE ROBERTSON MD [facility] LAB DIARRHEA [id number] 05/28/2015 21:30:00 05/28/2015 23:59:59 CLS Outpatient JOE ROBERTSON MD [facility] LAB DIARRHEA [id number] 05/10/2015 20:05:00 05/10/2015 21:32:00 DIS Emergency DENIS HAIDER DO [facility] ER L SIDE FACIAL DROOPING [id number] 05/10/2015 12:00:00 05/10/2015 13:31:00 DIS Emergency ANGEL MCDOWELL MD [facility] ER FACIAL DROOPING/LEFT HAND NUMB [id number] 2015 13:56:00 2015 23:59:59 CLS Outpatient ANUP SULTANA [facility] RAD DIFFICULTY SWALLOWING THYROIDMEGALLY [id number] 02/19/2015 12:28:00 02/19/2015 23:59:59 CLS Outpatient ANTHONY GARZA [facility] ONC [id number] 12/25/2014 16:05:00 12/26/2014 14:46:00 DIS Inpatient DIMPLE NOVOA MD [facility] CSD [id number] 08/31/2014 09:11:00 08/31/2014 23:59:59 CLS Outpatient NAOMY KING CONSTRUCTION MANAGEMENT ASSISTANT [facility] RAD [id number] 08/30/2014 13:10:00 08/30/2014 23:59:59 CLS Outpatient JOE ORBERTSON MD [facility] LAB [id number] 08/21/2014 12:52:00 08/21/2014 23:59:59 CLS Outpatient NAOMY KING CONSTRUCTION MANAGEMENT ASSISTANT [facility] ONC [id number] 08/08/2014 12:54:00 08/08/2014 23:59:59 CLS Outpatient ANTHONY GARZA [facility] RAD [id number] 01/30/2014 13:02:00 01/30/2014 23:59:59 CLS Outpatient [id number] 11/09/2013 13:56:00 11/09/2013 23:59:59 CLS Outpatient NAOMY KING CONSTRUCTION MANAGEMENT ASSISTANT [facility] ONC [id number] 10/15/2013 18:23:00 10/15/2013 20:38:00 DIS Emergency [id number] 07/25/2013 12:48:00 07/25/2013 23:59:59 CLS Outpatient NAOMY KING CONSTRUCTION MANAGEMENT ASSISTANT [facility] RAD BREAST CA, ABN SONO [id number] 05/12/2013 14:47:00 05/12/2013 23:59:59 CLS Outpatient [id number] 04/28/2013 15:16:00 04/28/2013 23:59:59 CLS Outpatient [id number] 12/10/2012 10:57:00 02/06/2013 00:01:00 DIS Outpatient [id number] 01/17/2013 12:08:00 01/17/2013 23:59:59 CLS Outpatient [id number] 12/27/2012 12:00:00 12/27/2012 23:59:59 CLS Outpatient [id number] 09/26/2015 00:00:00 Document Registration [id number] 08/10/2015 13:28:00 Document Registration [id number] 12/25/2014 17:28:00 Document Registration
[2018-06-16 07:25] VITALS: BP 130/69
[2018-06-16 07:29] LABS: HEMOGLOBIN 14.2 G/DL (11.5-16.0); MEAN PLATELET VOLUME 9.8 FL (7.4-10.4); RED CELL DISTRIBUTION WIDTH 16.1 % (10.0-14.5); WHITE BLOOD COUNT 10.2 10^3/uL (4.3-11.0)
--- NOTE | 2018-06-16 07:36 | Diagnostic Imaging Report ---
INDICATION: Preoperative evaluation. COMPARISON: 12/22/2017. FINDINGS: Stable left pectoral transvenous dual-chamber pacemaker. Mild cardiomegaly is unchanged. Visualized lungs are clear. No pleural effusion or pneumothorax. Atherosclerotic aorta is unchanged. IMPRESSION: No acute process by portable radiography. Dictated by: Dictated on workstation # [id number]
--- NOTE | 2018-06-16 07:43 | Cardiac Procedure Note-CS/ASA ---
Pre-Procedure Note Pre-Op Procedure Note H&P Reviewed The H&P was reviewed, patient examined and no changes noted. Date H&P Reviewed: Jun 16, 2018 Time H&P Reviewed: 07:43 Conscious Sedation Pre-Proced Time 07:43 ASA Score 3 For ASA 3 and 4: Consider anesthesia and medical clearance. Also, for patients with a history of failed moderate sedation consider anesthesia. Airway Lungs Heart ASA score ASA 1: a normal healthy patient ASA 2: a patient with a mild systemic disease (mid diabetes, controlled hypertension, obesity x ASA 3: a patient with a severe systemic disease that limits activity (angina , COPD, prior Myocardial infarction) ASA 4: a patient with an incapacitating disease that is a constant threat to life (CHF, renal failure) ASA 5: a moribund patient not expected to survive 24 hrs. (ruptured aneurysm) ASA 6: a declared brain patient whose organs are being harvested. For emergent operations, add the letter E after the classification Mallampati Classification Grade 3 Sedation Plan Analgesia, Amnesia, Plan communicated to team members, Discussed options with patient/fam, Discussed risks with patient/fam The patient is an appropriate candidate to undergo the planned procedure, sedation, and anesthesia. The patient immediately re-assessed prior to indication. DIMPLE NOVOA MD Jun 16, 2018 07:43
[2018-06-16 07:49] LABS: BILIRUBIN,TOTAL 0.6 MG/DL (0.1-1.0); CALCIUM 9.7 MG/DL (8.5-10.1); CREATININE SERUM 1.91 MG/DL (0.60-1.30); POTASSIUM 3.7 MMOL/L (3.6-5.0); TOTAL PROTEIN 7.6 GM/DL (6.4-8.2)
[2018-06-16 07:58] LABS: INR 1.1 (0.8-1.4); PROTHROMBIN TIME PATIENT 14.2 SEC (12.2-14.7)
== END | disposition home or self-care (01) ==
LOC: CATH 06:35
PROVIDERS: ATTEND Internal Medicine Cardiovascular Disease
DX: I73.9 Peripheral vascular disease, unspecified (principal); I49.5 Sick sinus syndrome; R07.9 Chest pain, unspecified; E78.5 Hyperlipidemia, unspecified; I65.29 Occlusion and stenosis of unspecified carotid artery; I25.10 Atherosclerotic heart disease of native coronary artery without angina pectoris; E11.9 Type 2 diabetes mellitus without complications; I12.9 Hypertensive chronic kidney disease with stage 1 through stage 4 chronic kidney disease, or unspecified chronic kidney disease; I48.0 Paroxysmal atrial fibrillation; N18.3 Chronic kidney disease, stage 3 (moderate); Z95.5 Presence of coronary angioplasty implant and graft; Z79.899 Other long term (current) drug therapy; Z79.82 Long term (current) use of aspirin; Z85.3 Personal history of malignant neoplasm of breast; Z11.2 Encounter for screening for other bacterial diseases; Z53.8 Procedure and treatment not carried out for other reasons
CPT/HCPCS: 36415; 71045; 80053; 80061; 85027; 85610; 85730; 87081

== ENCOUNTER 2018-12-03 09:52 | Outpatient (RCR) | payer MEDICARE, MEDICAID ==
[~2018-12-03 09:52] MED LIST changes: -HEParin (CATH LAB) 0 ML IV ONE; -LIDOCAINE 1% INJ 20 ML 20 ML VIAL ONE; -NS IV 1000 ML 1,000 ML IV SCH; -ROSU20TA PO; +ROSU20TA2 PO
== END 2018-12-17 14:18 | disposition home or self-care (01) ==
PROVIDERS: ATTEND Nurse Practitioner
DX: R53.1 Weakness (principal); R26.81 Unsteadiness on feet

== ENCOUNTER → 2018-12-08 | Outpatient (CLI) | payer MEDICARE, MEDICAID ==
[2018-12-08 15:36] LABS: BILIRUBIN,URINE NEGATIVE (NEGATIVE); CLARITY,URINE CLEAR; COLOR,URINE YELLOW; GLUCOSE, URINE (UA) NEGATIVE (NEGATIVE); KETONES,URINE NEGATIVE (NEGATIVE); LEUKOCYTE ESTERASE ,URINE 1+ (NEGATIVE); NITRITE,URINE NEGATIVE (NEGATIVE); PH,URINE 7 (5-9); PROTEIN,URINE 1+ (NEGATIVE); UROBILINOGEN,URINE NORMAL (NORMAL)
[2018-12-08 16:03] LABS: BACTERIA,URINE MODERATE /HPF
== END ==
LOC: LAB 15:19
PROVIDERS: ATTEND Internal Medicine
DX: R30.9 Painful micturition, unspecified (principal)
CPT/HCPCS: 81000; 87077; 87088; 87186

== ENCOUNTER → 2018-12-27 | Outpatient (CLI) | payer MEDICARE, MEDICAID | LOC: CARD 14:17 | PROVIDERS: ATTEND Internal Medicine Cardiovascular Disease | DX: I25.10 Atherosclerotic heart disease of native coronary artery without angina pectoris (principal); I10 Essential (primary) hypertension; E78.5 Hyperlipidemia, unspecified; I49.5 Sick sinus syndrome; I08.2 Rheumatic disorders of both aortic and tricuspid valves | CPT/HCPCS: 93306 ==

== ENCOUNTER → 2018-12-28 | Outpatient (CLI) | payer MEDICARE, MEDICAID | END | disposition home or self-care (01) | LOC: PREOP 05:50 | PROVIDERS: ATTEND Internal Medicine | DX: Z01.818 Encounter for other preprocedural examination (principal) ==

== ENCOUNTER 2018-12-31 07:24 | Day surgery (SDC) | payer MEDICARE, MEDICAID ==
--- NOTE | 2018-12-24 12:09 | HISTORY AND PHYSICAL ---
DATE OF SERVICE: ESOPHAGOGASTRODUODENOSCOPY HISTORY AND PHYSICAL HISTORY OF PRESENT ILLNESS: The patient is a 78-year-old white female, referred by Dr. Gonzales for EGD for evaluation of dysphagia. The patient reports dysphagia to solids only and occasionally she will have to regurgitate food. It has been going on for the past several months intermittently. Denies dysphagia to liquids and denies any problems with nasal regurgitation or difficulty with coughing or choking while swallowing. She denies any significant heartburn symptoms and does not believe that she has had any associated weight loss. She denies abdominal pain, melena, bright red blood per rectum or change in bowel habit. 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 She reports lower extremity procedure with likely stent placement roughly a year ago, but no stent placement within the past 6 months. PAST SURGICAL HISTORY: Consistent with past history of bypass as well as coronary stenting. She has had a cholecystectomy and a total abdominal hysterectomy for benign reasons. She has had pacemaker placement. FAMILY HISTORY: Pertinent for coronary artery disease in the mother, father and one sister have had a stroke and she has a father and two sisters with type 2 diabetes mellitus. She is not aware of any family history for GI tract malignancy. MEDICATIONS ON ADMISSION: Include insulin via pump, Plavix 75 mg daily, Crestor 20 mg daily, baby aspirin daily, pantoprazole 40 mg daily, Toprol-XL 25 mg daily, Valium 5 mg q.12 hours p.r.n., potassium 20 mEq daily, and torsemide 100 mg daily. She gets monthly B12 injections and is on Victoza 1.6 mg daily subcu. PHYSICAL EXAMINATION: GENERAL: Reveals pleasant overweight white female, in no acute distress. VITAL SIGNS: Weight was 215 pounds. Blood pressure is 144/60. NECK: Revealed no JVD, adenopathy or bruits. CARDIOVASCULAR: Revealed a regular rate and rhythm with a soft I to II over systolic ejection murmur heard best at second intercostal space without evidence for pulsus, parvus or tardus. No evidence for S3 or S4 were appreciated. CHEST: Clear to auscultation. ABDOMEN: Soft, supple without mass, organomegaly or tenderness. Bowel sounds are positive. EXTREMITIES: Reveal 1-2+ edema to the mid tibia bilaterally. ASSESSMENT AND PLAN: The patient was set up for diagnostic EGD on 12/31/2018 for evaluation of dysphagia. The patient was advised to discontinue aspirin and Plavix one week prior to the procedure. Electronic medical record was reviewed. Forty minutes care time spent. I thank you for the referral of this pleasant lady. Job ID: [id number] DocumentID: [id number] Dictated Date: 12/24/2018 11:46:14 Instructor Of Spanish Date: 12/24/2018 12:08:42 Dictated By: AMADEO BARRETT MD
[~2018-12-31] VITALS: Ht 167.6 cm; Wt 93.5 kg
[2018-12-31] MEDS ORDERED: LACTATED RINGERS 1,000 ML IV STA (07:38)
[2018-12-31] MEDS ORDERED: LACTATED RINGERS 1,000 ML IV ONE (07:39)
[2018-12-31] MEDS ORDERED: HURRICAINE EXT TUBE (BENZOCAINE) XX PRN (07:45)
[2018-12-31] MEDS ORDERED: LIDOCAINE JELLY 2% 6 ML SYRINGE MM PRN (07:45)
--- OUTSIDE RECORDS SUMMARY | 2018-12-31 07:54 | XMS REPORT | Clinical Summary ---
Author Author [facility] Organization [facility] Address Unknown Phone Unavailable Care Team Providers Care Marketing Professor Name Role Phone PCP Unavailable Allergies Not [...]
[2018-12-31 07:59] VITALS: BP 120/66
--- OUTSIDE RECORDS SUMMARY | 2018-12-31 07:59 | XMS REPORT | Continuity of Care Document ---
Author Organization Unknown Address Unknown Allergies Active Description Code Type Severity Reaction Onset Reported/Identified Relationship to Patient Clinical Status Yes sulfamethoxazole [id number] Drug Allergy Moderate N/A 10/05/2015 Yes tramadol [id number] Drug Allergy Moderate N/A 10/05/2015 Yes trimethoprim [id number] Drug Allergy Moderate N/A 10/05/2015 Yes codeine [id number] Drug Allergy Unknown CAN TAKE MORPHI 10/05/2015 Yes hydrocodone [id number] Drug Allergy Unknown N/A 10/05/2015 Yes Penicillins [id number] Drug Allergy Unknown N/A 10/05/2015 Yes amiodarone [id number] Drug Allergy Unknown NAUSEA, dizzine 12/05/2015 Yes amiodarone [id number] Drug Allergy Mild NAUSEA, dizzine 02/01/2016 Medications [...] GARZA N Ot V76.11 08/31/2014 NAOMY KING PATTERN WORKER Ot 174.9 08/31/2014 NAOMY KING PATTERN WORKER Ot 250.00 08/31/2014 NAOMY KINGP Ot 585.3 08/31/2014 NAOMY KING PATTERN WORKER Ot V15.3 08/31/2014 NAOMY KING PATTERN WORKER Ot V58.67 08/31/2014 NAOMY KING PATTERN WORKER Ot V58.69 08/31/2014 ANTHONY GARZA N Ot 174.9 08/31/2014 ANTHONY GARZA N Ot V76.11 08/31/2014 NAOMY KING S PATTERN WORKER Ot 174.9 08/31/2014 KINGNAOMY Diaz S PATTERN WORKER Ot 250.00 08/31/2014 KINGNAOMY Diaz S PATTERN WORKER Ot 585.3 08/31/2014 KINGNAOMY S PATTERN WORKER Ot V15.3 08/31/2014 KINGNAOMY Daiz S PATTERN WORKER Ot V58.67 08/31/2014 KINGNAOMY S PATTERN WORKER Ot V58.69 09/13/2014 KINGNAOMY Diaz S PATTERN WORKER Ot 174.9 09/13/2014 NAOMY KING S PATTERN WORKER Ot 250.00 09/13/2014 NAOMY KING S PATTERN WORKER Ot 585.3 09/13/2014 NAOMY KING S PATTERN WORKER Ot V15.3 09/13/2014 NAOMY KING S PATTERN WORKER Ot V58.67 09/13/2014 KINGNAOMY Diaz S PATTERN WORKER Ot V58.69 12/25/2014 ANTHONY GARZA N Ot 174.9 12/25/2014 ANTHONY GARZA N Ot V76.11 12/25/2014 NAOMY KING S PATTERN WORKER Ot 174.9 12/25/2014 KINGNAOMY Diaz S PATTERN WORKER Ot 250.00 12/25/2014 KINGNAOMY Diaz S PATTERN WORKER Ot 585.3 12/25/2014 KINGNAOMY Diaz S PATTERN WORKER Ot V15.3 12/25/2014 KINGNAOMY Diaz S PATTERN WORKER Ot V58.67 12/25/2014 KINGNAOMY Diaz S PATTERN WORKER Ot V58.69 12/25/2014 KINGNAOMY S PATTERN WORKER Ot 174.9 12/25/2014 KINGNAOMY S PATTERN WORKER Ot V49.81 12/25/2014 KINGNAOMY S PATTERN WORKER Ot V58.69 12/25/2014 MARCELO ROJAS, JOE Sherman Ot 599.0 12/25/2014 Ot V45.82 12/25/2014 Ot V57.89 12/26/2014 SOMMER ROJAS, DIMPLE Soliman Ot 250.60 12/26/2014 SOMMER ROJAS, DIMPLE J Ot 272.4 12/26/2014 SOMMER ROJAS, DIMPLE J Ot 357.2 12/26/2014 SOMMER ROJAS, MARLOHAR J Ot 403.90 12/26/2014 SOMMER ROJAS, DIMPLE J Ot 414.01 12/26/2014 SOMMER ROJAS, DIMPLE J Ot 427.31 12/26/2014 SOMMER ROJAS, BASHAR J Ot 433.10 12/26/2014 SOMMER ROJAS, BASHAR J Ot 443.9 12/26/2014 SOMMER ROJAS, MARLOHAR J Ot 530.81 12/26/2014 SOMMER ROJAS, DIMPLE [...] MARLOHAR J Ot 357.2 12/26/2014 SOMMER ROJAS, DIMPLE J Ot 403.90 12/26/2014 SOMMER ROJAS, DIMPLE J Ot 414.01 12/26/2014 SOMMER ROJAS, DIMPLE J Ot 427.31 12/26/2014 SOMMER ROJAS, DIMPLE J Ot 433.10 12/26/2014 SOMMER ROJAS, DIMPLE J Ot 443.9 12/26/2014 SOMMER ROJAS, DIMPLE J Ot 530.81 12/26/2014 SOMMER ROJAS, DIMPLE J Ot 585.3 12/26/2014 SOMMER ROJAS, BASHAR J Ot 786.50 12/26/2014 SOMMER ROJAS, DIMPLE J Ot V10.3 12/26/2014 SOMMER ORJAS, DIMPLE J Ot V45.01 12/26/2014 SOMMER ROJAS, MARLOHAR J Ot V45.82 12/26/2014 SOMMER ROJAS, BASHAR J Ot V58.67 03/06/2015 ANTHONY GARZA Ot 174.9 03/06/2015 ANTHONY GARZA Ot 250.00 03/06/2015 GREG, ALYCEAN N Ot 585.3 03/06/2015 GREG, ANTHONY N Ot V15.3 03/06/2015 GREG, BOBBJORN N Ot V49.81 03/06/2015 GREG, BOBAN N Ot V58.67 03/06/2015 GREG, BOBBJORN N Ot V58.69 03/16/2015 GREG, BOBBJORN N Ot 174.9 03/16/2015 GREG, BOBBJORN N Ot 250.00 03/16/2015 GREG, BOBBJORN N Ot 585.3 03/16/2015 GREG, ANTHONY N Ot V15.3 03/16/2015 GREG, ANTHONY N Ot V49.81 03/16/2015 GREG, ANTHONY N Ot V58.67 03/16/2015 GREG, BOBBJORN N Ot V58.69 03/27/2015 GREG, BOBBJORN N Ot 174.9 03/27/2015 GREG, ANTHONY N Ot 250.00 03/27/2015 GREG, ANTHONY N Ot 585.3 03/27/2015 GREG, BOBBJORN N Ot V15.3 03/27/2015 GREG, ANTHONY N Ot V49.81 03/27/2015 GREG, ANTHONY N Ot V58.67 03/27/2015 GREG, ANTHONY N Ot V58.69 2015 GREG, BOBAN N Ot 174.9 2015 GREG, ANTHONY N Ot V76.11 2015 KINGNAOMY Diaz PATTERN WORKER Ot 174.9 2015 NAOMY KING PATTERN WORKER Ot 250.00 2015 KINGNAOMY Diaz S PATTERN WORKER Ot 585.3 2015 KINGNAOMY Diaz S PATTERN WORKER Ot V15.3 2015 NAOMY KING S PATTERN WORKER Ot V58.67 2015 NAOMY KING S PATTERN WORKER Ot V58.69 2015 KINGNAOMY Diaz S PATTERN WORKER Ot 174.9 2015 KINGNAOMY Diaz S PATTERN WORKER Ot V49.81 2015 NAOMY KING S PATTERN WORKER Ot V58.69 2015 JOE ROBERTSON MD Ot 599.0 2015 ANTHONY GARZA N Ot 174.9 2015 ANTHONY GARZA N Ot 250.00 2015 ANTHONY GARZA N Ot 585.3 2015 ANTHONY GARZA N Ot V15.3 2015 ANTHONY GARZA N Ot V49.81 2015 ANTHONY GARZA N Ot V58.67 2015 ANTHONY GARZA N Ot V58.69 04/18/2015 SULTANASARAHYANUP L PATTERN WORKER Ot 240.9 04/18/2015 SULTANA, ANUP L PATTERN WORKER Ot 266.2 04/18/2015 SULTANA ANUP L PATTERN WORKER Ot 268.9 04/18/2015 SULTANA ANUP L PATTERN WORKER Ot 275.2 04/18/2015 SULTANA, ANUP L PATTERN WORKER Ot 458.9 04/18/2015 SULTANA, ANUP L PATTERN WORKER Ot 593.9 04/18/2015 SULTANA, ANUP L PATTERN WORKER Ot 785.1 04/18/2015 SULTANA, ANUP L PATTERN WORKER Ot 787.20 05/10/2015 ANGEL MCDOWELL MD Ot E11.40 TYPE 2 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 WITH DIABETIC N 05/10/2015 ANGEL MCDOWELL MD Ot G45.9 TRANSIENT CEREBRAL ISCHEMIC ATTACK, UNSP 05/10/2015 ANGEL MCDOWELL MD Ot Z79.02 DECATIZER (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 OF ANTITHROMBOTI 05/10/2015 ANGEL MCDOWELL MD Ot Z79.4 DECATIZER (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 05/10/2015 ANGEL MCDOWELL MD Ot Z79.899 OTHER RETIREMENT (CURRENT) DRUG THERAPY 05/10/2015 VITALY DO, DENIS K Ot E11.40 TYPE 2 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 WITH DIABETIC N 05/10/2015 VITALY DO, DENIS K Ot G45.9 TRANSIENT CEREBRAL ISCHEMIC ATTACK, UNSP 05/10/2015 VITALY DO, DENIS K Ot Z79.02 DECATIZER (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 OF ANTITHROMBOTI 05/10/2015 VITALY DO, DENIS K Ot Z79.4 RETIREMENT (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 05/10/2015 DENIS HAIDER DO Ot Z79.82 DECATIZER (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 OF ASPIRIN 05/29/2015 ANUP SULTANA PATTERN WORKER Ot 240.9 05/29/2015 SULTANAKIERAN PHILLIPSIA L PATTERN WORKER Ot 266.2 05/29/2015 SULTANAKIERAN PHILLIPSIA L PATTERN WORKER Ot 268.9 05/29/2015 SULTANAKIERAN PHILLIPSIA L PATTERN WORKER Ot 275.2 05/29/2015 SULTANAKIERAN PHILLIPSIA L PATTERN WORKER Ot 458.9 05/29/2015 SULTANAKIERAN PHILLIPSIA L PATTERN WORKER Ot 593.9 05/29/2015 KIERAN SULTANAIA L PATTERN WORKER Ot 785.1 05/29/2015 ANUP SULTANA L PATTERN WORKER Ot 787.20 06/27/2015 MARCELO ROJAS, JOE Sherman Ot R19.7 08/09/2015 MARCELO ROJAS, JOE Sherman Ot A04.7 08/27/2015 JOE ROBERTSON MD Ot R19.7 08/31/2015 Ot Z12.31 09/25/2015 JOE ROBERTSON MD Ot R19.7 DIARRHEA, UNSPECIFIED 09/25/2015 Ot Z12.31 09/25/2015 ANUP SULTANA L PATTERN WORKER Ot 240.9 09/25/2015 KIERAN SULTANAIA L PATTERN WORKER Ot 266.2 09/25/2015 SULTANA, ANUP L PATTERN WORKER Ot 268.9 09/25/2015 SULTANAKIERAN PHILLIPSIA L PATTERN WORKER Ot 275.2 09/25/2015 KIERAN SULTANAIA L PATTERN WORKER Ot 458.9 09/25/2015 KIERAN SULTANAIA L PATTERN WORKER Ot 593.9 09/25/2015 KIERAN SULTANAIA L PATTERN WORKER Ot 785.1 09/25/2015 ANUP SULTANA L PATTERN WORKER Ot 787.20 09/25/2015 JOE ROBERTSON MD Ot [...] MD Ot I25.10 ATHSCL HEART DISEASE OF [place] CORONARY 10/06/2015 JOE ROBERTSON MD Ot K21.9 [...] INI 10/06/2015 JOE ROBERTSON MD Ot Z79.4 DECATIZER (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 10/06/2015 JOE ROBERTSON MD Ot Z95.0 PRESENCE OF CARDIAC PACEMAKER 10/06/2015 JOE ROBERTSON MD Ot Z95.5 PRESENCE OF CORONARY ANGIOPLASTY IMPLANT 10/06/2015 JOE ROBERTSON MD Ot E11.9 10/06/2015 JOE ROBERTSON MD Ot E78.5 10/06/2015 JOE ROBERTSON MD, Ot I10 10/06/2015 JOE ROBERTSON MD, Ot I25.10 10/06/2015 JOE ROBERTSON MD Ot K21.9 10/06/2015 JOE ROBERTSON MD Ot K64.9 10/06/2015 JOE ROBERTSON MD Ot K92.1 10/06/2015 JOE ROBERTSON MD Ot R11.0 10/06/2015 JOE ROBERTSON MD Ot R19.7 10/06/2015 JOE ROBERTSON MD Ot S30.817A 10/06/2015 JOE ROBERTSON MD Ot X58.XXXA 10/06/2015 JOE ROBERTSON MD Ot Z79.4 10/06/2015 JOE ROBERTSON MD, Ot Z95.0 10/06/2015 MARCELO ROJAS, JOE Sherman Ot Z95.5 10/15/2015 SULTANAANUP PHILLIPS PATTERN WORKER Ot 240.9 10/15/2015 SULTANAANUP PATTERN WORKER Ot 266.2 10/15/2015 SULTANAANUP PHILLIPS PATTERN WORKER Ot 268.9 10/15/2015 SULTANAANUP PHILLIPS PATTERN WORKER Ot 275.2 10/15/2015 SULTANAANUP PATTERN WORKER Ot 458.9 10/15/2015 SULTANAANUP PATTERN WORKER Ot 593.9 10/15/2015 RDANUP PATTERN WORKER Ot 785.1 10/15/2015 RD ANUP Salvatore PATTERN WORKER Ot 787.20 10/15/2015 MARCELO ROJAS, JOE Sherman Ot R19.7 10/15/2015 MARCELO ROJAS, JOE Sherman Ot A04.7 10/15/2015 DOT ROJAS, NAFISA Tong Ot E04.1 10/15/2015 Ot R19.7 10/15/2015 MARCELO ROJAS, JOE Sherman Ot R06.02 10/16/2015 DOT ROJAS, NAFISA P Ot E04.1 10/23/2015 JOE ROBERTSON MD Ot R06.02 10/24/2015 JOE ROBERTSON MD Ot L97.521 10/25/2015 JOE ROBERTSON MD Ot L97.521 10/30/2015 JOE ROBERTSON MD Ot L97.521 10/31/2015 DOT ROJAS, NAFISA P Ot E04.1 11/05/2015 MARCELO ROJAS, JOE Sherman Ot R06.02 SHORTNESS OF BREATH 11/09/2015 JOE [...] Soliman Ot I25.10 ATHSCL HEART DISEASE OF [place] CORONARY 11/21/2015 JOE ROBERTSON MD Ot E11.610 [...] Soliman Ot I25.10 ATHSCL HEART DISEASE OF [place] CORONARY 12/05/2015 Ot V45.82 PERCUTANEOUS TRANSLUM CORON ANGIOPLASTY 12/05/2015 Ot V57.89 REHABILITATION PROC NEC 12/05/2015 Ot R19.7 DIARRHEA, UNSPECIFIED 12/06/2015 JOE ROBERTSON MD Ot E11.9 TYPE 2 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 WITHOUT COMPLIC 12/06/2015 JOE ROBERTSON MD Ot E86.0 DEHYDRATION 12/06/2015 JOE ROBERTSON MD Ot I25.10 ATHSCL HEART DISEASE OF [place] CORONARY 12/06/2015 JOE ROBERTSON MD Ot I48.91 [...] MD Ot I25.10 ATHSCL HEART DISEASE OF [place] CORONARY 12/06/2015 JOE ROBERTSON MD Ot I48.91 [...] Soliman Ot I25.10 ATHSCL HEART DISEASE OF [place] CORONARY 01/04/2016 DOT ROJAS, NAFISA Tong Ot [...] Ot R19.7 DIARRHEA, UNSPECIFIED 02/04/2016 DIMPLE NOVOA MD, Ot I65.23 OCCLUSION AND [...] UNSP 02/18/2016 ANGEL MCDOWELL MD Ot Z79.02 RETIREMENT (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 OF ANTITHROMBOTI 02/18/2016 ANGEL MCDOWELL MD Ot Z79.4 RETIREMENT (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 02/18/2016 ANGEL MCDOWELL MD Ot Z79.899 OTHER DECATIZER (CURRENT) DRUG THERAPY 02/21/2016 NAOMY KING PATTERN WORKER Ot Z09 ENCNTR FOR F/U EXAM AFT [...] UNSP 03/08/2016 ANGEL MCDOWELL MD Ot Z79.02 DECATIZER (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 OF ANTITHROMBOTI 03/08/2016 ANGEL MCDOWELL MD Ot Z79.4 RETIREMENT (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 03/08/2016 ANGEL MCDOWELL MD Ot Z79.899 OTHER RETIREMENT (CURRENT) DRUG THERAPY 03/14/2016 NAOMY KING PATTERN WORKER Ot Z09 ENCNTR FOR F/U EXAM AFT TRTMT FOR COND O 03/14/2016 NAOMY KINGP Ot Z85.3 PERSONAL HISTORY OF MALIGNANT NEOPLASM O 03/18/2016 DIMPLE NOVOA MD Ot I65.23 OCCLUSION AND STENOSIS OF BILATERAL PATTERSON 03/18/2016 DIMPLE NOVOA MD Ot R42 DIZZINESS AND GIDDINESS 03/31/2016 NAOMY KING PATTERN WORKER Ot Z09 ENCNTR FOR F/U EXAM AFT TRTMT FOR COND O 03/31/2016 NAOMY KING Ot Z85.3 PERSONAL HISTORY OF MALIGNANT NEOPLASM O 06/06/2016 SULTANAKIERAN PHILLIPSODALIS Chase PATTERN WORKER Ot 240.9 GOITER NOS 06/06/2016 SULTANAANUP PHILLIPS PATTERN WORKER Ot 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 06/06/2016 SULTANAANUP Salvatore PATTERN WORKER Ot 268.9 VITAMIN D DEFICIENCY NOS 06/06/2016 SULTANAANUP PHILLIPS Salvatore PATTERN WORKER Ot 275.2 DIS MAGNESIUM METABOLISM 06/06/2016 SULTANAANUP PHILLIPS Salvatore PATTERN WORKER Ot 458.9 HYPOTENSION NOS 06/06/2016 SULTANA, ANUP Salvatore PATTERN WORKER Ot 593.9 RENAL URETERAL DIS NOS 06/06/2016 SULTANAANUP PHILLIPS Salvatore PATTERN WORKER Ot 785.1 PALPITATIONS 06/06/2016 SULTANAANUP PHILLIPS Salvatore PATTERN WORKER Ot 787.20 DYSPHAGIA, UNSPECIFIED 06/06/2016 MARCELO ROJAS, [...] MD Ot R42 DIZZINESS AND GIDDINESS 06/06/2016 SOMMER ROJAS, DIMPLE Soliman Ot I65.23 OCCLUSION AND STENOSIS OF BILATERAL PATTER[place] 06/06/2016 DIMPLE NOVOA MD Ot R42 DIZZINESS AND GIDDINESS 06/06/2016 NAOMY KING Ot Z09 ENCNTR FOR F/U [...] SINGLE THYROID NODULE 08/12/2016 RD ANUP Salvatore PATTERN WORKER Ot 240.9 GOITER NOS 08/12/2016 RDANUP Salvatore PATTERN WORKER Ot 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 08/12/2016 SULTANA ANUP Salvatore PATTERN WORKER Ot 268.9 VITAMIN D DEFICIENCY NOS 08/12/2016 SULTANA ANUP Salvatore PATTERN WORKER Ot 275.2 DIS MAGNESIUM METABOLISM 08/12/2016 SULTANA ANUP Salvatore PATTERN WORKER Ot 458.9 HYPOTENSION NOS 08/12/2016 ANUP SULTANA PATTERN WORKER Ot 593.9 RENAL URETERAL DIS NOS 08/12/2016 SULTANAANUP Salvatore PATTERN WORKER Ot 785.1 PALPITATIONS 08/12/2016 RDSARAHYANUP Salvatore PATTERN WORKER Ot 787.20 DYSPHAGIA, UNSPECIFIED 08/12/2016 MARCELO ROJAS, [...] AND STENOSIS OF BILATERAL PATTERSON 08/12/2016 DIMPLE NVOOA MD Ot R42 DIZZINESS AND GIDDINESS 08/12/2016 [...] SINGLE THYROID NODULE 08/12/2016 KING, HILAH S PATTERN WORKER Ot Z12.31 ENCNTR SCREEN MAMMOGRAM FOR MALIGNANT NE 08/13/2016 SULTANA, ANUP L PATTERN WORKER Ot 240.9 GOITER NOS 08/13/2016 RD ANUP Salvatore PATTERN WORKER Ot 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 08/13/2016 SULTANAANUP PHILLIPS Salvatore PATTERN WORKER Ot 268.9 VITAMIN D DEFICIENCY NOS 08/13/2016 RD ANUP Salvatore PATTERN WORKER Ot 275.2 DIS MAGNESIUM METABOLISM 08/13/2016 SULTANAKIERAN VALDESIA Salvatore PATTERN WORKER Ot 458.9 HYPOTENSION NOS 08/13/2016 SULTANAANUP Salvatore PATTERN WORKER Ot 593.9 RENAL URETERAL DIS NOS 08/13/2016 SULTANASARAHYANUP Salvatore PATTERN WORKER Ot 785.1 PALPITATIONS 08/13/2016 RDSARAHYANUP Salvatore PATTERN WORKER Ot 787.20 DYSPHAGIA, UNSPECIFIED 08/13/2016 MARCELO ROJAS, [...] Soliman Ot R42 DIZZINESS AND GIDDINESS 08/13/2016 NAOMY KING Ot Z09 ENCNTR FOR F/U EXAM AFT TRTMT FOR COND O 08/13/2016 NAOMY KINGP Ot Z85.3 PERSONAL HISTORY OF MALIGNANT NEOPLASM O 08/13/2016 NAOMY KING Ot Z12.31 ENCNTR SCREEN MAMMOGRAM FOR MALIGNANT NE 08/13/2016 DESTINEE SULTANA DO Ot E04.1 NONTOXIC SINGLE THYROID NODULE 08/13/2016 NAOMY KING Ot Z12.31 ENCNTR SCREEN MAMMOGRAM FOR MALIGNANT NE 08/13/2016 NAOMY KING PATTERN WORKER Ot Z12.31 ENCNTR SCREEN MAMMOGRAM FOR MALIGNANT NE 08/14/2016 Ot Z12.31 ENCNTR SCREEN MAMMOGRAM FOR MALIGNANT NE 08/14/2016 NAOMY KING PATTERN WORKER Ot Z12.31 ENCNTR SCREEN MAMMOGRAM FOR MALIGNANT NE 09/03/2016 NAOMY KING PATTERN WORKER Ot Z12.31 ENCNTR SCREEN MAMMOGRAM FOR MALIGNANT [...] R42 DIZZINESS AND GIDDINESS 12/12/2016 NAOMY KING PATTERN WORKER Ot Z09 ENCNTR FOR F/U EXAM AFT TRTMT FOR COND O 12/12/2016 NAOMY KING PATTERN WORKER Ot Z85.3 PERSONAL HISTORY OF MALIGNANT NEOPLASM O 12/12/2016 NAOMY KING PATTERN WORKER Ot Z12.31 ENCNTR SCREEN MAMMOGRAM FOR MALIGNANT [...] Sherman Ot R06.02 SHORTNESS OF BREATH 12/18/2016 SOMMER ROJAS, DIMPLE Soliman Ot I65.23 OCCLUSION [...] E04.1 NONTOXIC SINGLE THYROID NODULE 12/19/2016 ANUP SULTANAP Ot E04.1 NONTOXIC SINGLE THYROID NODULE 12/25/2016 ANUP SULTANAP Ot E04.1 NONTOXIC SINGLE THYROID NODULE 12/25/2016 GRECIA DIXON Ot E11.9 TYPE 2 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 WITHOUT COMPLIC 12/25/2016 GRECIA DIXON Ot I10 ESSENTIAL (PRIMARY) HYPERTENSION 12/25/2016 GRECIA DIXON Ot I25.10 ATHSCL HEART DISEASE OF [place] CORONARY 12/25/2016 GRECIA DIXON Ot I65.23 OCCLUSION AND STENOSIS OF BILATERAL [place] 12/27/2016 DIMPLE NOVOA MD Ot E11.9 TYPE 2 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 WITHOUT COMPLIC 12/27/2016 DIMPLE NOVOA MD Ot E78.5 HYPERLIPIDEMIA, UNSPECIFIED 12/27/2016 DIMPLE NOVOA MD, Ot I10 ESSENTIAL (PRIMARY) HYPERTENSION 12/27/2016 DIMPLE NOVOA MD, Ot I25.10 ATHSCL HEART DISEASE OF [place] CORONARY 12/27/2016 DIMPLE NOVOA MD, Ot 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 [place] 12/27/2016 DIMPLE NOVOA MD, Ot I49.5 SICK SINUS SYNDROME 12/27/2016 DIMPLE NOVOA MD Ot R94.39 ABNORMAL RESULT OF OTHER CARDIOVASCULAR 12/27/2016 DIMPLE NOVOA MD, Ot T82.855A STENOSIS OF CORONARY ARTERY STENT, INITI 12/27/2016 DIMPLE NOVOA MD, Ot Z79.4 RETIREMENT (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 12/27/2016 DIMPLE NOVOA MD, Ot Z79.899 OTHER RETIREMENT (CURRENT) DRUG THERAPY 12/27/2016 DIMPLE NOVOA MD, Ot Z95.0 PRESENCE OF CARDIAC PACEMAKER 01/06/2017 GRECIA DIOXN Ot E11.9 TYPE 2 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 WITHOUT COMPLIC 01/06/2017 GRECIA DIXON Ot I10 ESSENTIAL (PRIMARY) HYPERTENSION 01/06/2017 GRECIA DIXON Ot I25.10 ATHSCL HEART DISEASE OF [place] CORONARY 01/06/2017 GRECIA DIXON Ot I65.23 OCCLUSION AND STENOSIS OF BILATERAL [place] 01/06/2017 ANUP SULTANA PATTERN WORKER Ot E04.1 NONTOXIC SINGLE THYROID NODULE 01/06/2017 NAOMY KING PATTERN WORKER Ot 174.9 MALIGN NEOPL BREAST NOS 01/06/2017 ANUP SULTANA PATTERN WORKER Ot E04.1 NONTOXIC SINGLE THYROID NODULE 01/07/2017 DIMPLE NOVOA MD Ot E11.9 TYPE 2 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 WITHOUT COMPLIC 01/07/2017 DIMPLE NOVOA MD, Ot E78.5 HYPERLIPIDEMIA, UNSPECIFIED 01/07/2017 DIMPLE NOVOA MD Ot I10 ESSENTIAL (PRIMARY) HYPERTENSION 01/07/2017 DIMPLE NOVOA MD Ot I25.10 ATHSCL HEART DISEASE OF [place] CORONARY 01/07/2017 DIMPLE NOVOA MD Ot 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 [place] 01/07/2017 DIMPLE NOVOA MD Ot I49.5 SICK SINUS SYNDROME 01/07/2017 DIMPLE NOVOA MD, Ot R94.39 ABNORMAL RESULT OF OTHER CARDIOVASCULAR 01/07/2017 DIMPLE NOVOA MD, Ot T82.855A STENOSIS OF CORONARY ARTERY STENT, INITI 01/07/2017 DIMPLE NOVOA MD, Ot Z79.4 RETIREMENT (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 01/07/2017 DIMPLE NOVOA MD, Ot Z79.899 OTHER DECATIZER (CURRENT) DRUG THERAPY 01/07/2017 DIMPLE NOVOA MD, Ot Z95.0 PRESENCE OF CARDIAC PACEMAKER 01/13/2017 GRECIA DIXON Ot E11.9 TYPE 2 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 WITHOUT COMPLIC 01/13/2017 GRECIA DIXON Ot I10 ESSENTIAL (PRIMARY) HYPERTENSION 01/13/2017 GRECIA DIXON Ot I25.10 ATHSCL HEART DISEASE OF [place] CORONARY 01/13/2017 GRECIA DIXON Ot I65.23 OCCLUSION AND STENOSIS OF BILATERAL PATTER[place] 01/14/2017 GRECIA DIXON Ot E11.9 TYPE 2 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 WITHOUT COMPLIC 01/14/2017 GRECIA DIXON Ot I10 ESSENTIAL (PRIMARY) HYPERTENSION 01/14/2017 GRECIA DIXON Ot I25.10 ATHSCL HEART DISEASE OF [place] CORONARY 01/14/2017 GRECIA DIXON Ot I65.23 OCCLUSION AND STENOSIS OF BILATERAL PATTER[place] 01/17/2017 DIMPLE NOVOA MD Ot E11.9 TYPE 2 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 WITHOUT COMPLIC 01/17/2017 DIMPLE NOVOA MD, Ot E78.5 HYPERLIPIDEMIA, UNSPECIFIED 01/17/2017 DIMPLE NOVOA MD Ot I10 ESSENTIAL (PRIMARY) HYPERTENSION 01/17/2017 DIMPLE NOVOA MD Ot I25.10 ATHSCL HEART DISEASE OF [place] CORONARY 01/17/2017 DIMPLE NOVOA MD Ot 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 [place] 01/17/2017 DIMPLE NOVOA MD Ot I49.5 SICK SINUS SYNDROME 01/17/2017 DIMPLE NOVOA MD Ot R94.39 ABNORMAL RESULT OF OTHER CARDIOVASCULAR 01/17/2017 DIMPLE NOVOA MD Ot T82.855A STENOSIS OF CORONARY ARTERY STENT, INITI 01/17/2017 DIMPLE NOVOA MD Ot Z79.4 RETIREMENT (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 01/17/2017 DIMPLE NOVOA MD Ot Z79.899 OTHER DECATIZER (CURRENT) DRUG THERAPY 01/17/2017 DIMPLE NOVOA MD [...] MD Ot I25.10 ATHSCL HEART DISEASE OF [place] CORONARY 01/28/2017 DIMPLE NOVOA MD Ot 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 [place] 01/28/2017 DIMPLE NOVOA MD Ot I49.5 SICK SINUS SYNDROME 01/28/2017 DIMPLE NOVOA MD Ot R94.39 ABNORMAL RESULT OF OTHER CARDIOVASCULAR 01/28/2017 DIMPLE NOVOA MD Ot T82.855A STENOSIS OF CORONARY ARTERY STENT, INITI 01/28/2017 DIMPLE NOVOA MD Ot Z79.4 DECATIZER (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 01/28/2017 DIMPLE NOVOA MD Ot Z79.899 OTHER DECATIZER (CURRENT) DRUG THERAPY 01/28/2017 DIMPLE NOVOA MD Ot Z95.0 PRESENCE OF CARDIAC PACEMAKER 01/29/2017 GRECIA DIXON Ot E11.9 TYPE 2 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 WITHOUT COMPLIC 01/29/2017 GRECIA DIXON Ot I10 ESSENTIAL (PRIMARY) HYPERTENSION 01/29/2017 GRECIA DIXON Ot I25.10 ATHSCL HEART DISEASE OF [place] CORONARY 01/29/2017 GRECIA DIXON Ot I65.23 OCCLUSION AND STENOSIS OF BILATERAL PATTER[place] 03/13/2017 DIMPLE NOVOA MD, Ot E11.9 TYPE 2 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 WITHOUT COMPLIC 03/13/2017 DIMPLE NOVOA MD, Ot E78.5 HYPERLIPIDEMIA, UNSPECIFIED 03/13/2017 DIMPLE NOVOA MD, Ot I10 ESSENTIAL (PRIMARY) HYPERTENSION 03/13/2017 DIMPLE NOVOA MD, Ot I25.10 ATHSCL HEART DISEASE OF [place] CORONARY 03/13/2017 DIMPLE NOVOA MD, Ot 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 [place]CIF[place] 03/13/2017 DIMPLE NOVOA MD, Ot I49.5 SICK SINUS SYNDROME 03/13/2017 DIMPLE NOVOA MD, Ot R94.39 ABNORMAL RESULT OF OTHER CARDIOVASCULAR 03/13/2017 DIMPLE NOVOA MD, Ot T82.855A STENOSIS OF CORONARY ARTERY STENT, INITI 03/13/2017 DIMPLE NOVOA MD, Ot Z79.4 RETIREMENT (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 03/13/2017 DIMPLE NOVOA MD, Ot Z79.899 OTHER RETIREMENT (CURRENT) DRUG THERAPY 03/13/2017 DIMPLE NOVOA MD, Ot Z95.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 03/13/2017 ANTHONY GARZA Ot E11.43 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 03/13/2017 ANTHONY GARZA Ot E78.5 HYPERLIPIDEMIA, UNSPECIFIED 03/13/2017 ANTHONY GARZA Ot 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 [facility]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 03/13/2017 ANTHONY GARZA Ot I25.10 ATHSCL HEART DISEASE OF [place] CORONARY 03/13/2017 ANTHONY GARZA Ot I50.9 HEART FAILURE, UNSPECIFIED 03/13/2017 ANTHONY GARZA Ot K21.9 GASTRO-ESOPHAGEAL REFLUX DISEASE WITHOUT 03/13/2017 ANTHONY GARZA Ot N18.3 CHRONIC KIDNEY DISEASE, STAGE 3 (MODERAT 03/13/2017 ANTHONY GARZA Ot Z08 ENCNTR FOR FOLLOW-UP EXAM AFTER TRTMT FO 03/13/2017 ANTHONY GARZA Ot Z79.02 DECATIZER (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 OF ANTITHROMBOTI 03/13/2017 ANTHONY GARZA Ot Z79.4 DECATIZER (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 03/13/2017 ANTHONY GARZA Ot Z79.899 OTHER DECATIZER (CURRENT) DRUG THERAPY 03/13/2017 ANTHONY GARZA Ot Z85.3 PERSONAL HISTORY OF MALIGNANT NEOPLASM O 03/13/2017 ANTHONY GARZA Ot Z95.5 PRESENCE OF CORONARY ANGIOPLASTY IMPLANT 03/14/2017 DIMPLE NOVOA MD Ot E11.9 TYPE 2 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 WITHOUT COMPLIC 03/14/2017 DIMPLE NOVOA MD, Ot E78.5 HYPERLIPIDEMIA, UNSPECIFIED 03/14/2017 DIMPLE NOVOA MD, Ot I10 ESSENTIAL (PRIMARY) HYPERTENSION 03/14/2017 DIMPLE NOVOA MD, Ot I25.10 ATHSCL HEART DISEASE OF [place] CORONARY 03/14/2017 DIMPLE NOVOA MD, Ot 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 [place]CIFIE 03/14/2017 DIMPLE NOVOA MD, Ot I49.5 SICK SINUS SYNDROME 03/14/2017 DIMPLE NOVOA MD Ot R94.39 ABNORMAL RESULT OF OTHER CARDIOVASCULAR 03/14/2017 DIMPLE NOVOA MD, Ot T82.855A STENOSIS OF CORONARY ARTERY STENT, INITI 03/14/2017 DIMPLE NOVOA MD, Ot Z79.4 RETIREMENT (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 03/14/2017 DIMPLE NOVOA MD, Ot Z79.899 OTHER RETIREMENT (CURRENT) DRUG THERAPY 03/14/2017 DIMPLE NOVOA MD Ot Z95.0 PRESENCE OF CARDIAC PACEMAKER 03/16/2017 MARCELO ROJAS, JOE Sherman Ot E04.1 NONTOXIC SINGLE THYROID NODULE 04/03/2017 ANTHONY GARZA Ot E04.1 NONTOXIC SINGLE THYROID NODULE 04/03/2017 GREG ANTHONY Bender Ot 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 04/03/2017 GREG, ANTHONY Bender Ot E11.43 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 04/03/2017 GREG ANTHONY Bender Ot E78.5 HYPERLIPIDEMIA, UNSPECIFIED 04/03/2017 GREG ALYCEBJORN Yulia Ot 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 [facility]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 04/03/2017 GREGANTHONY Ot I25.10 ATHSCL HEART DISEASE OF [place] CORONARY 04/03/2017 GREGANTHONY Ot I50.9 HEART FAILURE, UNSPECIFIED 04/03/2017 ANTHONY GARZA Ot K21.9 GASTRO-ESOPHAGEAL REFLUX DISEASE WITHOUT 04/03/2017 ANTHONY GARZA Ot N18.3 CHRONIC KIDNEY DISEASE, STAGE 3 (MODERAT 04/03/2017 ANTHONY GARZA Ot Z08 ENCNTR FOR FOLLOW-UP EXAM AFTER TRTMT FO 04/03/2017 ANTHONY GARZA Ot Z79.02 RETIREMENT (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 OF ANTITHROMBOTI 04/03/2017 ANTHONY GARZA Ot Z79.4 DECATIZER (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 04/03/2017 ANTHONY GARZA Ot Z79.899 OTHER DECATIZER (CURRENT) DRUG THERAPY 04/03/2017 ANTHONY GARZA Ot Z85.3 PERSONAL HISTORY OF MALIGNANT NEOPLASM O 04/03/2017 ANTHONY GARZA Ot Z95.5 PRESENCE OF CORONARY ANGIOPLASTY IMPLANT 04/03/2017 MARCELO ROJAS, JOE Sherman Ot E04.1 NONTOXIC SINGLE THYROID NODULE 04/23/2017 GREGANTHONY Ot E04.1 NONTOXIC SINGLE THYROID NODULE 04/23/2017 GREGANTHONY Ot 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 04/23/2017 GREGANTHONY Ot E11.43 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 04/23/2017 GREGANTHONY Ot E78.5 HYPERLIPIDEMIA, UNSPECIFIED 04/23/2017 GREGANTHONY Ot 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 [place]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 04/23/2017 ANTHONY GARZA Ot I25.10 ATHSCL HEART DISEASE OF [place] CORONARY 04/23/2017 ANTHONY GARZA Ot I50.9 HEART FAILURE, UNSPECIFIED 04/23/2017 ANTHONY GARZA Ot K21.9 GASTRO-ESOPHAGEAL REFLUX DISEASE WITHOUT 04/23/2017 ANTHONY GARZA Ot N18.3 CHRONIC KIDNEY DISEASE, STAGE 3 (MODERAT 04/23/2017 ANTHONY GARZA Ot Z08 ENCNTR FOR FOLLOW-UP EXAM AFTER TRTMT FO 04/23/2017 ANTHONY GARZA Ot Z79.02 DECATIZER (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 OF ANTITHROMBOTI 04/23/2017 ANTHONY GARZA Ot Z79.4 DECATIZER (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 04/23/2017 ANTHONY GARZA Ot Z79.899 OTHER RETIREMENT (CURRENT) DRUG THERAPY 04/23/2017 ANTHONY GARZA Ot [...] 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 08/06/2017 ANTHONY GARZA Ot E11.43 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 08/06/2017 ANTHONY GARZA Ot E78.5 HYPERLIPIDEMIA, UNSPECIFIED 08/06/2017 ANTHONY GARZA Ot 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 [place]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 08/06/2017 ANTHONY GARZA Ot I25.10 ATHSCL HEART DISEASE OF [place] CORONARY 08/06/2017 ANTHONY GARZA Ot I50.9 HEART FAILURE, UNSPECIFIED 08/06/2017 ANTHONY GARZA Ot K21.9 GASTRO-ESOPHAGEAL REFLUX DISEASE WITHOUT 08/06/2017 ANTHONY GARZA Ot N18.3 CHRONIC KIDNEY DISEASE, STAGE 3 (MODERAT 08/06/2017 ANTHONY GARZA Ot Z08 ENCNTR FOR FOLLOW-UP EXAM AFTER TRTMT FO 08/06/2017 ANTHONY GARZA Ot Z79.02 DECATIZER (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 OF ANTITHROMBOTI 08/06/2017 ANTHONY GARZA Yulia Ot Z79.4 DECATIZER (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 08/06/2017 ANTHONY GARZA Yulia Ot Z79.899 OTHER DECATIZER (CURRENT) DRUG THERAPY 08/06/2017 ANTHONY GARZA Yulia Ot Z85.3 PERSONAL HISTORY OF MALIGNANT NEOPLASM O 08/06/2017 GREGANTHONY SAMSON Yulia Ot Z95.5 PRESENCE OF CORONARY ANGIOPLASTY [...] APRN Ot I25.10 ATHSCL HEART DISEASE OF [place] CORONARY 08/09/2017 DARYL PIEDRA APRN Ot I25.2 OLD MYOCARDIAL INFARCTION 08/09/2017 DARYL PIEDRA APRN Ot I50.9 HEART FAILURE, UNSPECIFIED 08/09/2017 DARYL PIEDRA APRN Ot J10.1 FLU DUE TO OTH IDENT INFLUENZA VIRUS W O 08/09/2017 DARYL PIEDRA APRN Ot K21.9 GASTRO-ESOPHAGEAL REFLUX DISEASE WITHOUT 08/09/2017 DARYL PIEDRA APRN Ot R19.7 DIARRHEA, UNSPECIFIED 08/09/2017 DARYL PIEDRA APRN, Ot Z79.4 DECATIZER (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 08/09/2017 DARYL PIEDRA APRN Ot Z82.49 FAMILY HX OF ISCHEM HEART DIS AND OTH DI 08/09/2017 DARYL PIEDRA APRN Ot Z85.3 PERSONAL HISTORY OF MALIGNANT NEOPLASM O 08/09/2017 DARYL PIEDRA APRN Ot Z86.73 PRSNL HX OF TIA (TIA), AND CEREB INFRC W 08/09/2017 PIEDRA, PETER J FOLLOW UP SPECIALIST Ot Z90.710 ACQUIRED ABSENCE OF BOTH CERVIX [...] APRN Ot I25.10 ATHSCL HEART DISEASE OF [place] CORONARY 08/11/2017 DARYL PIEDRA APRN Ot I25.2 OLD MYOCARDIAL INFARCTION 08/11/2017 DARYL PIEDRA APRN Ot I50.9 HEART FAILURE, UNSPECIFIED 08/11/2017 DARYL PIEDRA APRN Ot J10.1 FLU DUE TO OTH IDENT INFLUENZA VIRUS W O 08/11/2017 DARYL PIEDRA APRN Ot K21.9 GASTRO-ESOPHAGEAL REFLUX DISEASE WITHOUT 08/11/2017 DARYL PIEDRA APRN Ot R19.7 DIARRHEA, UNSPECIFIED 08/11/2017 DARYL PIEDRA APRN Ot Z79.4 RETIREMENT (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 08/11/2017 DARYL PIEDRA [...] Z95.5 PRESENCE OF CORONARY ANGIOPLASTY IMPLANT 09/11/2017 NEW, DENIS G. PANTS BUSHELER-C Ot E11.9 TYPE 2 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 WITHOUT COMPLIC 09/11/2017 JAYJAY WEAVERGayle BabinKit PANTS BUSHELER-C Ot E55.9 VITAMIN D DEFICIENCY, UNSPECIFIED 09/11/2017 JAYJAY WEAVERGayle [employer]inKit PANTS BUSHELER-C Ot E78.5 HYPERLIPIDEMIA, UNSPECIFIED 09/11/2017 DENIS WEAVER PANTS BUSHELER-C Ot E87.2 ACIDOSIS 09/11/2017 DENIS WEAVER PANTS BUSHELER-C Ot I12.9 HYPERTENSIVE CHRONIC KIDNEY DISEASE W ST 09/11/2017 DENIS WEAVER PANTS BUSHELER-C Ot I25.10 ATHSCL HEART DISEASE OF [place] CORONARY 09/11/2017 DENIS WEAVER [employer] PANTS BUSHELER-C Ot K21.9 GASTRO-ESOPHAGEAL REFLUX DISEASE WITHOUT 09/11/2017 DENIS WEAVER [employer] PANTS BUSHELER-C Ot N18.3 CHRONIC KIDNEY DISEASE, STAGE 3 (MODERAT 09/24/2017 DIMPLE NOVOA MD Ot E11.40 TYPE 2 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 WITH DIABETIC N 09/24/2017 DIMPLE NOVOA MD Ot E11.621 TYPE 2 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 WITH FOOT ULCER 09/24/2017 DIMPLE NOVOA MD Ot E78.5 HYPERLIPIDEMIA, UNSPECIFIED 09/24/2017 DIMPLE NOVOA MD Ot I25.10 ATHSCL HEART DISEASE OF [place] CORONARY 09/24/2017 DIMPLE NOVOA MD Ot I48.0 PAROXYSMAL ATRIAL FIBRILLATION 09/24/2017 DIMPLE NOVOA MD Ot I49.5 SICK SINUS SYNDROME 09/24/2017 DIMPLE NOVOA MD Ot I65.29 OCCLUSION AND STENOSIS OF UNSPECIFIED CA 09/24/2017 DIMPLE NOVOA MD Ot I73.9 PERIPHERAL VASCULAR DISEASE, UNSPECIFIED 09/24/2017 DIMPLE NOVOA MD Ot L97.529 NON-PRESSURE CHRONIC ULCER OTH PRT LEFT 09/24/2017 DIMPLE NOVOA MD Ot N18.3 CHRONIC KIDNEY DISEASE, STAGE 3 (MODERAT 09/24/2017 DIMPLE NOVOA MD Ot R07.9 CHEST PAIN, UNSPECIFIED 09/24/2017 DIMPLE NOVOA MD Ot Z79.4 DECATIZER (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 09/24/2017 DIMPLE NOVOA [...] MD Ot I25.10 ATHSCL HEART DISEASE OF [place] CORONARY 09/28/2017 DIMPLE NOVOA MD Ot I48.0 [...] UNSPECIFIED 09/28/2017 DIMPLE NOVOA MD Ot Z79.4 RETIREMENT (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 09/28/2017 DIMPLE NOVOA [...] TO OTH DRUG/MEDS/BIOL SUB 10/06/2017 DENIS WEAVER NP-C Ot E11.9 TYPE 2 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 WITHOUT COMPLIC 10/06/2017 NEW, DENIS G. PANTS BUSHELER-C Ot E55.9 VITAMIN D DEFICIENCY, UNSPECIFIED 10/06/2017 DENIS WEAVER [employer] PANTS BUSHELER-C Ot E78.5 HYPERLIPIDEMIA, UNSPECIFIED 10/06/2017 DENIS WEAVER PANTS BUSHELER-C Ot E87.2 ACIDOSIS 10/06/2017 DENIS WEAVER PANTS BUSHELER-C Ot I12.9 HYPERTENSIVE CHRONIC KIDNEY DISEASE W ST 10/06/2017 DENIS WEAVER PANTS BUSHELER-C Ot I25.10 ATHSCL HEART DISEASE OF [place] CORONARY 10/06/2017 DENIS WEAVER PANTS BUSHELER-C Ot K21.9 GASTRO-ESOPHAGEAL REFLUX DISEASE WITHOUT 10/06/2017 DENIS WEAVER [employer] PANTS BUSHELER-C Ot N18.3 CHRONIC KIDNEY DISEASE, STAGE 3 (MODERAT 10/28/2017 DIMPLE NOVOA MD Ot E11.40 TYPE 2 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 WITH DIABETIC N 10/28/2017 DIMPLE NOVOA MD Ot E11.621 TYPE 2 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 WITH FOOT ULCER 10/28/2017 DIMPLE NOVOA MD Ot E78.5 HYPERLIPIDEMIA, UNSPECIFIED 10/28/2017 DIMPLE NOVOA MD Ot I25.10 ATHSCL HEART DISEASE OF [place] CORONARY 10/28/2017 DIMPLE NOVOA MD Ot I48.0 [...] UNSPECIFIED 10/28/2017 DIMPLE NOVOA MD Ot Z79.4 DECATIZER (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 10/28/2017 DIMPLE NOVOA MD Ot Z85.3 PERSONAL HISTORY OF MALIGNANT NEOPLASM O 10/28/2017 DIMPLE NOVOA MD Ot Z88.0 ALLERGY STATUS TO PENICILLIN 10/28/2017 DIMPLE NOVOA MD Ot Z88.2 ALLERGY STATUS TO SULFONAMIDES STATUS 10/28/2017 DIMPLE NOVOA MD Ot Z88.5 ALLERGY STATUS TO NARCOTIC AGENT STATUS 10/28/2017 DIMPLE NOVOA MD Ot Z88.8 ALLERGY STATUS TO OTH DRUG/MEDS/BIOL SUB 12/22/2017 DENIS WEAVER PANTS BUSHELER-C Ot E11.9 TYPE 2 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 WITHOUT COMPLIC 12/22/2017 DENIS WEAVER PANTS BUSHELER-C Ot E55.9 VITAMIN D DEFICIENCY, UNSPECIFIED 12/22/2017 DENIS WEAVER PANTS BUSHELER-C Ot E78.5 HYPERLIPIDEMIA, UNSPECIFIED 12/22/2017 DENIS WEAVER PANTS BUSHELER-C Ot E87.2 ACIDOSIS 12/22/2017 DENIS WEAVER PANTS BUSHELER-C Ot I12.9 HYPERTENSIVE CHRONIC KIDNEY DISEASE W ST 12/22/2017 DENIS WEAVER [employer] PANTS BUSHELER-C Ot I25.10 ATHSCL HEART DISEASE OF [place] CORONARY 12/22/2017 DENIS WEAVER PANTS BUSHELER-C Ot K21.9 GASTRO-ESOPHAGEAL REFLUX DISEASE WITHOUT 12/22/2017 DENIS WEAVER PANTS BUSHELER-C Ot N18.3 CHRONIC KIDNEY DISEASE, STAGE 3 (MODERAT 12/23/2017 JOE ROBERTSON MD Ot E11.51 TYPE 2 DIABETES W DIABETIC PERIPHERAL AN 12/23/2017 JOE ROBERTSON MD Ot E78.5 HYPERLIPIDEMIA, UNSPECIFIED 12/23/2017 JOE ROBERTSON MD Ot E87.6 HYPOKALEMIA 12/23/2017 JOE ROBERTSON MD Ot I12.9 HYPERTENSIVE CHRONIC KIDNEY DISEASE W ST 12/23/2017 JOE ROBERTSON MD Ot I25.10 ATHSCL HEART DISEASE OF [place] CORONARY 12/23/2017 JOE ROBERTSON MD Ot I25.2 OLD MYOCARDIAL INFARCTION 12/23/2017 JOE ROBERTSON MD Ot I48.0 PAROXYSMAL ATRIAL FIBRILLATION 12/23/2017 JOE ROBERTSON MD Ot I49.5 SICK SINUS SYNDROME 12/23/2017 JOE ROBERTSON MD Ot I73.9 PERIPHERAL VASCULAR DISEASE, UNSPECIFIED 12/23/2017 JOE ROBERTSON MD Ot J06.9 ACUTE UPPER RESPIRATORY INFECTION, UNSPE 12/23/2017 JOE ROBERTSON MD Ot N18.4 CHRONIC KIDNEY DISEASE, STAGE 4 (SEVERE) 12/23/2017 JOE ROBERTSON MD Ot R06.09 OTHER FORMS OF DYSPNEA 12/23/2017 JOE ROBERTSON MD Ot R42 DIZZINESS AND GIDDINESS 12/23/2017 JOE ROBERTSON MD Ot R53.1 WEAKNESS 12/23/2017 JOE ROBERTSON MD Ot Z79.01 DECATIZER (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 OF ANTICOAGULANT 12/23/2017 JOE ROBERTSON [...] W DIABETIC PERIPHERAL AN 12/23/2017 JOE ROBERTSON MD, Ot E78.5 HYPERLIPIDEMIA, UNSPECIFIED 12/23/2017 JOE ROBERTSON MD Ot E87.6 HYPOKALEMIA 12/23/2017 JOE ROBERTSON MD Ot I12.9 HYPERTENSIVE CHRONIC KIDNEY DISEASE W ST 12/23/2017 JOE ROBERTSON MD Ot I25.10 ATHSCL HEART DISEASE OF [place] CORONARY 12/23/2017 JOE ROBERTSON MD, Ot I25.2 OLD MYOCARDIAL INFARCTION 12/23/2017 JOE ROBERTSON MD, Ot I48.0 PAROXYSMAL ATRIAL FIBRILLATION 12/23/2017 JOE ROBERTSON MD Ot I49.5 SICK SINUS SYNDROME 12/23/2017 JOE ROBERTSON MD Ot I73.9 PERIPHERAL VASCULAR DISEASE, UNSPECIFIED 12/23/2017 JOE ROBERTSON MD Ot J06.9 ACUTE UPPER RESPIRATORY INFECTION, UNSPE 12/23/2017 JOE ROBERTSON MD Ot N18.4 CHRONIC KIDNEY DISEASE, STAGE 4 (SEVERE) 12/23/2017 JOE ROBERTSON MD Ot R06.09 OTHER FORMS OF DYSPNEA 12/23/2017 JOE ROBERTSON MD Ot R42 DIZZINESS AND GIDDINESS 12/23/2017 JOE ROBERTSON MD Ot R53.1 WEAKNESS 12/23/2017 JOE ROBERTSON MD Ot Z79.01 DECATIZER (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 OF ANTICOAGULANT 12/23/2017 JOE ROBERTSON MD Ot Z85.3 PERSONAL HISTORY OF MALIGNANT NEOPLASM O 12/23/2017 MARCELO ROJAS, JOE Sherman Ot Z88.0 ALLERGY STATUS TO PENICILLIN 12/23/2017 [...] PRISCILLA HAGEN MD Ot E86.0 DEHYDRATION 02/05/2018 PRICSILLA HAGEN MD Ot I12.9 HYPERTENSIVE CHRONIC KIDNEY DISEASE W ST 02/05/2018 PRISCILLA HAGEN MD Ot I25.10 ATHSCL HEART DISEASE OF [place] CORONARY 02/05/2018 PRISCILLA HAGEN MD Ot N18.3 CHRONIC KIDNEY DISEASE, STAGE 3 (MODERAT 02/05/2018 PRISCILLA HAGEN MD Ot N39.0 URINARY TRACT INFECTION, SITE NOT SPECIF 02/05/2018 PRISCILLA HAGEN MD Ot R42 DIZZINESS AND GIDDINESS 02/05/2018 PRISCILLA HAGEN MD Ot Z79.4 RETIREMENT (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 02/05/2018 PRISCILLA HGAEN MD Ot Z95.0 PRESENCE OF CARDIAC PACEMAKER 02/05/2018 PRISCILLA HAGEN MD Ot A41.51 SEPSIS DUE TO ESCHERICHIA COLI [E. COLI] 02/05/2018 PRISCILLA HAGEN MD Ot E11.9 TYPE 2 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 WITHOUT COMPLIC 02/05/2018 PRISCILLA HAGEN MD Ot E86.0 DEHYDRATION 02/05/2018 PRISCILLA HAGEN MD Ot I12.9 HYPERTENSIVE CHRONIC KIDNEY DISEASE W ST 02/05/2018 PRISCILLA HAGEN MD Ot I25.10 ATHSCL HEART DISEASE OF [place] CORONARY 02/05/2018 PRISCILLA HAGEN MD, Ot N18.3 CHRONIC KIDNEY DISEASE, STAGE 3 (MODERAT 02/05/2018 PRISCILLA HAGEN MD, Ot N39.0 URINARY TRACT INFECTION, SITE NOT SPECIF 02/05/2018 XIAO ROJAS, PRISCILLA Carr Ot R42 DIZZINESS AND GIDDINESS 02/05/2018 PRISCILLA HAGEN MD, Ot Z79.4 RETIREMENT (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 02/05/2018 PRISCILLA HAGEN MD, Ot Z95.0 PRESENCE OF CARDIAC PACEMAKER 03/11/2018 JOSÉ LUIS OBRIEN, JARROD Chase Ot M17.12 UNILATERAL PRIMARY OSTEOARTHRITIS, LEFT 03/16/2018 MARCELO ROJAS, JOE Sherman Ot E04.1 NONTOXIC SINGLE THYROID NODULE 03/16/2018 ANTHONY GARZA Ot E04.1 NONTOXIC SINGLE THYROID NODULE 03/16/2018 ANTHONY GARZA Ot 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 03/16/2018 ANTHONY GARZA Ot E11.43 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 03/16/2018 ANTHONY GARZA Ot E78.5 HYPERLIPIDEMIA, UNSPECIFIED 03/16/2018 ANTHONY GARZA Ot 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 [facility]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 03/16/2018 ANTHONY GARZA Ot I25.10 ATHSCL HEART DISEASE OF [place] CORONARY 03/16/2018 ANTHONY GARZA Ot I50.9 HEART FAILURE, UNSPECIFIED 03/16/2018 ANTHONY GARZA Ot K21.9 GASTRO-ESOPHAGEAL REFLUX DISEASE WITHOUT 03/16/2018 ANTHONY GARZA Ot N18.3 CHRONIC KIDNEY DISEASE, STAGE 3 (MODERAT 03/16/2018 ANTHONY GARZA Ot Z08 ENCNTR FOR FOLLOW-UP EXAM AFTER TRTMT FO 03/16/2018 ANTHONY GARZA Ot Z79.02 RETIREMENT (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 OF ANTITHROMBOTI 03/16/2018 ANTHONY GARZA Ot Z79.4 RETIREMENT (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 03/16/2018 ANTHONY GARZA Ot Z79.899 OTHER DECATIZER (CURRENT) DRUG THERAPY 03/16/2018 ANTHONY GARZA Ot Z85.3 PERSONAL HISTORY OF MALIGNANT NEOPLASM O 03/16/2018 ANTHONY GARZA Ot Z95.5 PRESENCE OF CORONARY ANGIOPLASTY IMPLANT 03/16/2018 DENIS WEAVER PANTS BUSHELER-C Ot E11.9 TYPE 2 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 WITHOUT COMPLIC 03/16/2018 DENIS WEAVER PANTS BUSHELER-C Ot E55.9 VITAMIN D DEFICIENCY, UNSPECIFIED 03/16/2018 DENIS WEAVER PANTS BUSHELER-C Ot E78.5 HYPERLIPIDEMIA, UNSPECIFIED 03/16/2018 NEWDENIS PANTS BUSHELER-C Ot E87.2 ACIDOSIS 03/16/2018 NEWDENIS PANTS BUSHELER-C Ot I12.9 HYPERTENSIVE CHRONIC KIDNEY DISEASE W ST 03/16/2018 NEWDENIS PANTS BUSHELER-C Ot I25.10 ATHSCL HEART DISEASE OF [place] CORONARY 03/16/2018 DENIS WEAVER PANTS BUSHELER-C Ot K21.9 GASTRO-ESOPHAGEAL REFLUX DISEASE WITHOUT 03/16/2018 DENIS WEAVER PANTS BUSHELER-C Ot N18.3 CHRONIC KIDNEY DISEASE, STAGE 3 (MODERAT 03/16/2018 PANTERA ROJAS, VANGIE Ot Z01.818 ENCOUNTER FOR OTHER PREPROCEDURAL EXAMIN 03/16/2018 JOSÉ LUIS OBRIEN, JARROD Chase Ot M17.12 UNILATERAL PRIMARY OSTEOARTHRITIS, LEFT 03/17/2018 ANTHONY GARZA Ot E04.1 NONTOXIC SINGLE THYROID NODULE 03/17/2018 ANTHONY GARZA Ot 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 03/17/2018 ANTHONY GARZA Ot E11.43 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 03/17/2018 ANTHONY GARZA Ot E78.5 HYPERLIPIDEMIA, UNSPECIFIED 03/17/2018 ANTHONY GARZA Ot 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 KDNY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 03/17/2018 ANTHONY GARZA Ot I25.10 ATHSCL HEART DISEASE OF [place] CORONARY 03/17/2018 ANTHONY GARZA Ot I50.9 HEART FAILURE, UNSPECIFIED 03/17/2018 ANTHONY GARZA Ot K21.9 GASTRO-ESOPHAGEAL REFLUX DISEASE WITHOUT 03/17/2018 ANTHONY GARZA Ot N18.3 CHRONIC KIDNEY DISEASE, STAGE 3 (MODERAT 03/17/2018 ANTHONY GARZA Ot Z08 ENCNTR FOR FOLLOW-UP EXAM AFTER TRTMT FO 03/17/2018 ANTHONY GARZA Ot Z79.02 DECATIZER (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 OF ANTITHROMBOTI 03/17/2018 ANTHONY GARZA Ot Z79.4 DECATIZER (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 03/17/2018 ANTHONY GARZA Ot Z79.899 OTHER DECATIZER (CURRENT) DRUG THERAPY 03/17/2018 ANTHONY GARZA Ot Z85.3 PERSONAL HISTORY OF MALIGNANT NEOPLASM O 03/17/2018 ANTHONY GARZA Ot Z95.5 PRESENCE OF CORONARY ANGIOPLASTY IMPLANT 04/05/2018 DENIS WEAVER PANTS BUSHELER-C Ot E11.9 TYPE 2 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 WITHOUT COMPLIC 04/05/2018 DENIS WEAVER PANTS BUSHELER-C Ot E55.9 VITAMIN D DEFICIENCY, UNSPECIFIED 04/05/2018 DENIS WEAVER PANTS BUSHELER-C Ot E78.5 HYPERLIPIDEMIA, UNSPECIFIED 04/05/2018 DENIS WEAVER PANTS BUSHELER-C Ot E87.2 ACIDOSIS 04/05/2018 DENIS WEAVER PANTS BUSHELER-C Ot I12.9 HYPERTENSIVE CHRONIC KIDNEY DISEASE W ST 04/05/2018 DENIS WEAVER PANTS BUSHELER-C Ot I25.10 ATHSCL HEART DISEASE OF [place] CORONARY 04/05/2018 DENIS WEAVER PANTS BUSHELER-C Ot K21.9 GASTRO-ESOPHAGEAL REFLUX DISEASE WITHOUT 04/05/2018 DENIS WEAVER PANTS BUSHELER-C Ot N18.3 CHRONIC KIDNEY DISEASE, STAGE 3 (MODERAT 04/07/2018 ANTHONY GARZA Ot E04.1 NONTOXIC SINGLE THYROID NODULE 04/07/2018 ANTHONY GARZA Ot 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 04/07/2018 ANTHONY GARZA Ot E11.43 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 04/07/2018 ANTHONY GARZA Ot E78.5 HYPERLIPIDEMIA, UNSPECIFIED 04/07/2018 ANTHONY GARZA Ot 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 [place]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 04/07/2018 ANTHONY GARZA Ot I25.10 ATHSCL HEART DISEASE OF [place] CORONARY 04/07/2018 ANTHONY GARZA Ot I50.9 HEART FAILURE, UNSPECIFIED 04/07/2018 ANTHONY GARZA Ot K21.9 GASTRO-ESOPHAGEAL REFLUX DISEASE WITHOUT 04/07/2018 ANTHONY GARZA Ot N18.3 CHRONIC KIDNEY DISEASE, STAGE 3 (MODERAT 04/07/2018 ANTHONY GARZA Ot Z08 ENCNTR FOR FOLLOW-UP EXAM AFTER TRTMT FO 04/07/2018 ANTHONY GARZA Ot Z79.02 RETIREMENT (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 OF ANTITHROMBOTI 04/07/2018 ANTHONY GARZA Ot Z79.4 RETIREMENT (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 04/07/2018 ANTHONY GARZA Ot Z79.899 OTHER RETIREMENT (CURRENT) DRUG THERAPY 04/07/2018 ANTHONY GARZA Ot Z85.3 PERSONAL HISTORY OF MALIGNANT NEOPLASM O 04/07/2018 ANTHONY GARZA Ot Z95.5 PRESENCE OF CORONARY ANGIOPLASTY IMPLANT 04/27/2018 NAOMY KING PATTERN WORKER Ot Z12.31 ENCNTR SCREEN MAMMOGRAM FOR MALIGNANT NE 04/29/2018 NAOMY KING PATTERN WORKER Ot 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 04/29/2018 NAOMY KING PATTERN WORKER Ot Z12.31 ENCNTR SCREEN MAMMOGRAM FOR MALIGNANT NE 04/29/2018 ANTHONY GARZA Ot E04.1 NONTOXIC SINGLE THYROID NODULE 04/29/2018 ANTHONY GARZA Ot 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 04/29/2018 ANTHONY GARZA Ot E11.43 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 04/29/2018 ANTHONY GARZA Ot E78.5 HYPERLIPIDEMIA, UNSPECIFIED 04/29/2018 ANTHONY GARZA Ot 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 [place]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 04/29/2018 ANTHONY GARZA Ot I25.10 ATHSCL HEART DISEASE OF [place] CORONARY 04/29/2018 ANTHONY GARZA Ot I50.9 HEART FAILURE, UNSPECIFIED 04/29/2018 ANTHONY GARZA Ot K21.9 GASTRO-ESOPHAGEAL REFLUX DISEASE WITHOUT 04/29/2018 ANTHONY GARZA Ot N18.3 CHRONIC KIDNEY DISEASE, STAGE 3 (MODERAT 04/29/2018 ANTHONY GARZA Ot Z08 ENCNTR FOR FOLLOW-UP EXAM AFTER TRTMT FO 04/29/2018 ANTHONY GARZA Ot Z79.02 DECATIZER (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 OF ANTITHROMBOTI 04/29/2018 ANTHONY GARZA Yulia Ot Z79.4 DECATIZER (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 04/29/2018 ANTHONY GARZA Yulia Ot Z79.899 OTHER RETIREMENT (CURRENT) DRUG THERAPY 04/29/2018 ANTHONY GARZA Yulia Ot Z85.3 PERSONAL HISTORY OF MALIGNANT NEOPLASM O 04/29/2018 ANTHONY GARZA Yulia Ot Z95.5 PRESENCE OF CORONARY ANGIOPLASTY IMPLANT 05/18/2018 NAOMY KING PATTERN WORKER Ot 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 05/18/2018 NAOMY KING PATTERN WORKER Ot Z12.31 ENCNTR SCREEN MAMMOGRAM FOR MALIGNANT NE 06/16/2018 SKIP KERN APRN Ot 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 06/16/2018 SKIP KERN APRN Ot E78.5 HYPERLIPIDEMIA, UNSPECIFIED 06/16/2018 SKIP KERN APRN Ot E87.2 ACIDOSIS 06/16/2018 SKIP KERN FOLLOW UP SPECIALIST Ot E87.3 ALKALOSIS 06/16/2018 SKIP KERN APRN Ot I12.9 HYPERTENSIVE CHRONIC KIDNEY DISEASE W ST 06/16/2018 SKIP KERN APRN Ot I25.10 ATHSCL HEART DISEASE OF [place] CORONARY 06/16/2018 SKIP KERN APRN Ot K21.9 GASTRO-ESOPHAGEAL REFLUX DISEASE WITHOUT 06/16/2018 SKIP KERN APRN Ot N18.3 CHRONIC KIDNEY DISEASE, STAGE 3 (MODERAT 06/16/2018 SKIP KERN APRN Ot N25.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 O 06/22/2018 DIMPLE NOVOA MD Ot E11.9 TYPE 2 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 WITHOUT COMPLIC 06/22/2018 DIMPLE NOVOA MD Ot E78.5 HYPERLIPIDEMIA, UNSPECIFIED 06/22/2018 DIMPLE NOVOA MD Ot I12.9 HYPERTENSIVE CHRONIC KIDNEY DISEASE W ST 06/22/2018 DIMPLE NOVOA MD Ot I25.10 ATHSCL HEART DISEASE OF [place] CORONARY 06/22/2018 DIMPLE NOVOA MD Ot I48.0 PAROXYSMAL ATRIAL FIBRILLATION 06/22/2018 DIMPLE NOVOA MD Ot I49.5 SICK SINUS SYNDROME 06/22/2018 DIMPLE NOVOA MD, Ot I65.29 OCCLUSION AND STENOSIS OF UNSPECIFIED CA 06/22/2018 DIMPLE NOVOA MD Ot I73.9 PERIPHERAL VASCULAR DISEASE, UNSPECIFIED 06/22/2018 DIMPLE NOVOA MD, Ot N18.3 CHRONIC KIDNEY DISEASE, STAGE 3 (MODERAT 06/22/2018 DIMPLE NOVOA MD Ot R07.9 CHEST PAIN, UNSPECIFIED 06/22/2018 DIMPLE NOVOA MD, Ot Z11.2 ENCOUNTER FOR SCREENING FOR OTHER BACTER 06/22/2018 DIMPLE NOVOA MD, Ot Z53.8 PROCEDURE AND TREATMENT NOT CARRIED OUT 06/22/2018 DIMPLE NOVOA MD, Ot Z79.82 DECATIZER (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 OF ASPIRIN 06/22/2018 DIMPLE NOVOA MD, Ot Z79.899 OTHER DECATIZER (CURRENT) DRUG THERAPY 06/22/2018 DIMPLE NOVOA MD, Ot Z85.3 PERSONAL HISTORY OF MALIGNANT NEOPLASM O 06/22/2018 DIMPLE NOVOA MD, Ot Z95.5 PRESENCE OF CORONARY ANGIOPLASTY IMPLANT 07/09/2018 SKIP KERN APRN Ot 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 07/09/2018 SKIP KERN APRN Ot E78.5 HYPERLIPIDEMIA, UNSPECIFIED 07/09/2018 SKIP KERN APRN Ot E87.2 ACIDOSIS 07/09/2018 SKIP KERN APRN Ot E87.3 ALKALOSIS 07/09/2018 SKIP KERN APRN Ot I12.9 HYPERTENSIVE CHRONIC KIDNEY DISEASE W ST 07/09/2018 SKIP KERN APRN Ot I25.10 ATHSCL HEART DISEASE OF [place] CORONARY 07/09/2018 SKIP KERN APRN Ot K21.9 GASTRO-ESOPHAGEAL REFLUX DISEASE WITHOUT 07/09/2018 SKIP KERN APRN Ot N18.3 CHRONIC KIDNEY DISEASE, STAGE 3 (MODERAT 07/09/2018 SKIP KERN APRN Ot N25.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 O 07/09/2018 DIMPLE NOVOA MD Ot E11.9 TYPE 2 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 WITHOUT COMPLIC 07/09/2018 DIMPLE NOVOA MD, Ot E78.5 HYPERLIPIDEMIA, UNSPECIFIED 07/09/2018 DIMPLE NOVOA MD Ot I12.9 HYPERTENSIVE CHRONIC KIDNEY DISEASE W ST 07/09/2018 DIMPLE NOVOA MD, Ot I25.10 ATHSCL HEART DISEASE OF [place] CORONARY 07/09/2018 DIMPLE NOVOA MD, Ot I48.0 PAROXYSMAL ATRIAL FIBRILLATION 07/09/2018 DIMPLE NOVOA MD, Ot I49.5 SICK SINUS SYNDROME 07/09/2018 DIMPLE NOVOA MD, Ot I65.29 OCCLUSION AND STENOSIS OF UNSPECIFIED CA 07/09/2018 DIMPLE NOVOA MD Ot I73.9 PERIPHERAL VASCULAR DISEASE, UNSPECIFIED 07/09/2018 DIMPLE NOVOA MD, Ot N18.3 CHRONIC KIDNEY DISEASE, STAGE 3 (MODERAT 07/09/2018 DIMPLE NOVOA MD, Ot R07.9 CHEST PAIN, UNSPECIFIED 07/09/2018 DIMPLE NOVOA MD, Ot Z11.2 ENCOUNTER FOR SCREENING FOR OTHER BACTER 07/09/2018 DIMPLE NOVOA MD, Ot Z53.8 PROCEDURE AND TREATMENT NOT CARRIED OUT 07/09/2018 DIMPLE NOVOA MD, Ot Z79.82 RETIREMENT (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 OF ASPIRIN 07/09/2018 DIMPLE NOVOA MD, Ot Z79.899 OTHER DECATIZER (CURRENT) DRUG THERAPY 07/09/2018 DIMPLE NOVOA MD, Ot Z85.3 PERSONAL HISTORY OF MALIGNANT NEOPLASM O 07/09/2018 DIMPLE NOVOA MD, Ot Z95.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 07/29/2018 SKIP KERN APRN Ot E78.5 HYPERLIPIDEMIA, UNSPECIFIED 07/29/2018 SKIP KERN APRN Ot E87.2 ACIDOSIS 07/29/2018 SKIP KERN APRN Ot E87.3 ALKALOSIS 07/29/2018 SKIP KERN APRN Ot I12.9 HYPERTENSIVE CHRONIC KIDNEY DISEASE W ST 07/29/2018 SKIP KERN APRN Ot I25.10 ATHSCL HEART DISEASE OF [place] CORONARY 07/29/2018 SKIP KERN APRN Ot K21.9 GASTRO-ESOPHAGEAL REFLUX DISEASE WITHOUT 07/29/2018 SKIP KERN APRN Ot N18.3 CHRONIC KIDNEY DISEASE, STAGE 3 (MODERAT 07/29/2018 SKIP KERN FOLLOW UP SPECIALIST Ot N25.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 O 07/29/2018 DIMPLE NOVOA MD, Ot E11.9 TYPE 2 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 WITHOUT COMPLIC 07/29/2018 DIMPLE NOVOA MD, Ot E78.5 HYPERLIPIDEMIA, UNSPECIFIED 07/29/2018 DIMPLE NOVOA MD, Ot I12.9 HYPERTENSIVE CHRONIC KIDNEY DISEASE W ST 07/29/2018 DIMPLE NOVOA MD, Ot I25.10 ATHSCL HEART DISEASE OF [place] CORONARY 07/29/2018 DIMPLE NOVOA MD, Ot I48.0 PAROXYSMAL ATRIAL FIBRILLATION 07/29/2018 DIMPLE NOVOA MD, Ot I49.5 SICK SINUS SYNDROME 07/29/2018 DIMPLE NOVOA MD, Ot I65.29 OCCLUSION AND STENOSIS OF UNSPECIFIED CA 07/29/2018 DIMPLE NOVOA MD, Ot I73.9 PERIPHERAL VASCULAR DISEASE, UNSPECIFIED 07/29/2018 DIMPLE NOVOA MD, Ot N18.3 CHRONIC KIDNEY DISEASE, STAGE 3 (MODERAT 07/29/2018 DIMPLE NOVOA MD, Ot R07.9 CHEST PAIN, UNSPECIFIED 07/29/2018 DIMPLE NOVOA MD, Ot Z11.2 ENCOUNTER FOR SCREENING FOR OTHER BACTER 07/29/2018 DIMPLE NOVOA MD, Ot Z53.8 PROCEDURE AND TREATMENT NOT CARRIED OUT 07/29/2018 DIMPLE NOVOA MD, Ot Z79.82 RETIREMENT (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 OF ASPIRIN 07/29/2018 DIMPLE NOVOA MD, Ot Z79.899 OTHER DECATIZER (CURRENT) DRUG THERAPY 07/29/2018 DIMPLE NOVOA MD, Ot Z85.3 PERSONAL HISTORY OF MALIGNANT NEOPLASM O 07/29/2018 DIMPLE NOVOA MD, Ot Z95.5 PRESENCE OF CORONARY ANGIOPLASTY IMPLANT 10/28/2018 MARCELO ROJAS, JOE Sherman Ot E04.1 NONTOXIC SINGLE THYROID NODULE 10/28/2018 ANTHONY GARZA Ot E04.1 NONTOXIC SINGLE THYROID NODULE 10/28/2018 ANTHONY GARZA Ot 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 10/28/2018 ANTHONY GARZA Ot E11.43 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 10/28/2018 GREG ALYCEBJORN Yulia Ot E78.5 HYPERLIPIDEMIA, UNSPECIFIED 10/28/2018 ANTHONY GARZA Yulia Ot 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 KDNY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 10/28/2018 GREGANTHONY Ot I25.10 ATHSCL HEART DISEASE OF [place] CORONARY 10/28/2018 GREG ANTHONY Bender Ot I50.9 HEART FAILURE, UNSPECIFIED 10/28/2018 GREG ANHTONY Bender Ot K21.9 GASTRO-ESOPHAGEAL REFLUX DISEASE WITHOUT 10/28/2018 GREG ANTHONY Bender Ot N18.3 CHRONIC KIDNEY DISEASE, STAGE 3 (MODERAT 10/28/2018 GREG ANTHONY Bender Ot Z08 ENCNTR FOR FOLLOW-UP EXAM AFTER TRTMT FO 10/28/2018 GREG ANTHONY Bender Ot Z79.02 RETIREMENT (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 OF ANTITHROMBOTI 10/28/2018 GREG ANTHONY Bender Ot Z79.4 DECATIZER (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 10/28/2018 GREG ANTHONY Bender Ot Z79.899 OTHER RETIREMENT (CURRENT) DRUG THERAPY 10/28/2018 GREGANTHONY Ot Z85.3 PERSONAL HISTORY OF MALIGNANT NEOPLASM O 10/28/2018 GREG ANTHONY Bender Ot Z95.5 PRESENCE OF CORONARY ANGIOPLASTY IMPLANT 10/28/2018 MARCELO ROJAS, JOE Sherman Ot 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 10/28/2018 CIERA ROJAS, DESTINEE Soliman Ot I25.10 ATHSCL HEART DISEASE OF [place] CORONARY 12/01/2018 SKIP KERN FOLLOW UP SPECIALIST Ot R26.81 UNSTEADINESS ON FEET 12/01/2018 SKIP KERN FOLLOW UP SPECIALIST Ot R53.1 WEAKNESS 12/08/2018 JOE ROBERTSON MD Ot 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 12/08/2018 CIERA ROJAS, DESTINEE Soliman Ot I25.10 [facility] [place] CORONARY 12/08/2018 JOE ROBERTSON MD Ot E04.1 NONTOXIC SINGLE THYROID NODULE 12/08/2018 GREGANTHONY Ot E04.1 NONTOXIC SINGLE THYROID NODULE 12/08/2018 GREGANTHONY Ot 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 12/08/2018 ANTHONY GARZA Ot E11.43 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 12/08/2018 ANTHONY GARZA Yulia Ot E78.5 HYPERLIPIDEMIA, UNSPECIFIED 12/08/2018 ANTHONY GARZA Yulia Ot 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 KDNY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 12/08/2018 ANTHONY GARZA Yulia Ot I25.10 ATHSCL HEART DISEASE [place] CORONARY 12/08/2018 ANTHONY GARZA Yulia Ot I50.9 HEART FAILURE, UNSPECIFIED 12/08/2018 ANTHONY GARZA Yulia Ot K21.9 GASTRO-ESOPHAGEAL REFLUX DISEASE WITHOUT 12/08/2018 ANTHONY GARZA Yulia Ot N18.3 CHRONIC KIDNEY DISEASE, STAGE 3 (MODERAT 12/08/2018 ANTHONY GARZA Yulia Ot Z08 ENCNTR FOR FOLLOW-UP EXAM AFTER TRTMT FO 12/08/2018 ANTHONY GARZA Yulia Ot Z79.02 RETIREMENT (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 OF ANTITHROMBOTI 12/08/2018 ANTHONY GARZA Yulia Ot Z79.4 RETIREMENT (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 12/08/2018 ANTHONY GARZA Yulia Ot Z79.899 OTHER RETIREMENT (CURRENT) DRUG THERAPY 12/08/2018 ANTHONY GARZA Yulia Ot Z85.3 PERSONAL HISTORY OF MALIGNANT NEOPLASM O 12/08/2018 ANTHONY GARZA Yulia Ot Z95.5 PRESENCE OF CORONARY ANGIOPLASTY IMPLANT 12/08/2018 SKIP KERN APRN Ot R26.81 UNSTEADINESS ON FEET 12/08/2018 SKIP KERN APRN Ot R53.1 WEAKNESS 12/09/2018 SKIP KERN APRN Ot R26.81 UNSTEADINESS ON FEET 12/09/2018 SKIP KERN APRN Ot R53.1 WEAKNESS 12/10/2018 MARCELO ROJAS, JOE Sherman Ot R30.9 PAINFUL MICTURITION, UNSPECIFIED 12/17/2018 SKIP KERN APRN Ot R26.81 UNSTEADINESS ON FEET 12/17/2018 SKIP KERN APRN Ot R53.1 WEAKNESS 12/23/2018 MARCELO ROJAS, JOE Sherman Ot 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 12/23/2018 DESTINEE VANG MD Ot I25.10 ATHSCL HEART DISEASE [place] CORONARY 12/23/2018 JOE ROBERTSON MD Ot R30.9 PAINFUL MICTURITION, UNSPECIFIED 12/27/2018 JOE ROBERTSON MD Ot 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 12/27/2018 DESTINEE VANG MD Ot I25.10 ATHSCL HEART DISEASE OF [place] CORONARY 12/27/2018 JOE ROBERTSON MD Ot E04.1 NONTOXIC SINGLE THYROID NODULE 12/27/2018 ANTHONY GARZA Ot E04.1 NONTOXIC SINGLE THYROID NODULE 12/27/2018 ANTHONY GARZA Ot 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 12/27/2018 ANTHONY GARZA Ot E11.43 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 12/27/2018 ANTHONY GARZA Ot E78.5 HYPERLIPIDEMIA, UNSPECIFIED 12/27/2018 ANTHONY GARZA Ot 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 KDNY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 12/27/2018 ANTHONY GARZA Ot I25.10 ATHSCL HEART DISEASE [place] CORONARY 12/27/2018 ANTHONY GARZA Ot I50.9 HEART FAILURE, UNSPECIFIED 12/27/2018 ANTHONY GARZA Ot K21.9 GASTRO-ESOPHAGEAL REFLUX DISEASE WITHOUT 12/27/2018 ANTHONY GARZA Ot N18.3 CHRONIC KIDNEY DISEASE, STAGE 3 (MODERAT 12/27/2018 ANTHONY GARZA Ot Z08 ENCNTR FOR FOLLOW-UP EXAM AFTER TRTMT FO 12/27/2018 ANTHONY GARZA Ot Z79.02 RETIREMENT (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 OF ANTITHROMBOTI 12/27/2018 ANTHONY GARZA N Ot Z79.4 RETIREMENT (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 12/27/2018 ANTHONY GARZA Ot Z79.899 OTHER RETIREMENT (CURRENT) DRUG THERAPY 12/27/2018 ANTHONY GARZA Ot Z85.3 PERSONAL HISTORY OF MALIGNANT NEOPLASM O 12/27/2018 ANTHONY GARZA Ot Z95.5 PRESENCE OF CORONARY ANGIOPLASTY IMPLANT 12/27/2018 JOE ROBERTSON MD Ot R30.9 PAINFUL MICTURITION, UNSPECIFIED 12/28/2018 JOE ROBERTSON MD Ot R30.9 PAINFUL MICTURITION, UNSPECIFIED 12/29/2018 NENA ROJAS, AMADEO Sherman Ot Z01.818 ENCOUNTER FOR OTHER PREPROCEDURAL EXAMIN Procedures There is no data. Results Test [...] sediment leukocyte count by microscopy (number/high power field) [HPF] NRG Bacteria detection in urine sediment [...] culture - 12/26/16 07:50 Bacterial urine culture [id number] NRG COLONY COUNT >100,000/ML NRG FTX;REPORTABLE SENSITIVITY [...] susceptibility test by minimum inhibitory concentration - [facility] Methicillin resistant Staphylococcus aureus (MRSA) screening culture - 12/26/16 08:16 Methicillin resistant Staphylococcus aureus (MRSA) screening culture NEG [facility] Comprehensive metabolic panel - 12/26/16 08:26 Serum [...] calculation of estimated glomerular filtration rate 34 NR Serum or plasma glucose measurement (mass/volume) 161 mg/dL 70-105 Serum or plasma calcium measurement (mass/volume) 9.3 mg/dL 8.5-10.1 Serum or plasma total bilirubin measurement (mass/volume) 0.5 mg/dL 0.1-1.0 Serum or plasma alkaline phosphatase measurement (enzymatic activity/volume) 88 U/L 40-136 Serum or plasma aspartate aminotransferase measurement (enzymatic activity/volume) 19 U/L 5-34 Serum or plasma alanine aminotransferase measurement (enzymatic activity/volume) 15 U/L 0-55 Serum or plasma protein [...] Automated erythrocyte mean corpuscular hemoglobin concentration measurement (mass/volume) 32 g/dL 32-36 Automated erythrocyte distribution width ratio 17.2 % 10.0- 14.5 Automated blood platelet count (count/volume) 191 10*3/uL [...] Blood monocytes automated count (number/volume) 0.7 10*3 0.0- 1.0 Automated eosinophil count 0.2 10*3/uL 0.0-0.3 Automated [...] glucose measurement by glucometer (mass/volume) - 12/26/16 20:24 Capillary blood glucose measurement by glucometer (mass/volume) 69 mg/dL 70-110 Capillary blood glucose measurement by glucometer (mass/volume) - 12/26/16 21:23 Capillary blood glucose measurement by glucometer (mass/volume) 81 mg/dL 70-110 Capillary blood glucose measurement by glucometer (mass/volume) - 12/27/16 02:25 Capillary blood glucose measurement by glucometer (mass/volume) [...] Automated erythrocyte mean corpuscular hemoglobin concentration measurement (mass/volume) 33 g/dL 32-36 Automated erythrocyte distribution width ratio 16.8 % 10.0- 14.5 Automated blood platelet count (count/volume) 185 10*3/uL [...] glucose measurement by glucometer (mass/volume) - 12/27/16 10:35 Capillary blood glucose measurement by glucometer (mass/volume) 163 mg/dL 70-110 Complete urinalysis with reflex to culture - 08/09/17 16:23 Urine color determination YELLOW NRG Urine clarity determination CLEAR NRG Urine pH measurement by test strip 5 5-9 Specific gravity of urine by test strip 1.015 1.016-1.022 Urine protein assay by test strip, [...] sediment leukocyte count by microscopy (number/high power field) NONE NRG Bacteria detection in urine sediment [...] Automated erythrocyte mean corpuscular hemoglobin concentration measurement (mass/volume) 33 g/dL 32-36 Automated erythrocyte distribution width ratio 15.9 % 10.0- 14.5 Automated blood platelet count (count/volume) 126 10*3/uL [...] Blood monocytes automated count (number/volume) 0.5 10*3 0.0- 1.0 Automated eosinophil count 0.0 10*3/uL 0.0-0.3 Automated [...] Serum or plasma aspartate aminotransferase measurement (enzymatic activity/volume) 47 U/L 5-34 Serum or plasma alanine aminotransferase measurement (enzymatic activity/volume) 29 U/L 0-55 Serum or plasma protein [...] Automated erythrocyte mean corpuscular hemoglobin concentration measurement (mass/volume) 33 g/dL 32-36 Automated erythrocyte distribution width ratio 18.7 % 10.0- 14.5 Automated blood platelet count (count/volume) 205 10*3/uL [...] Serum or plasma aspartate aminotransferase measurement (enzymatic activity/volume) 17 U/L 5-34 Serum or plasma alanine aminotransferase measurement (enzymatic activity/volume) 15 U/L 0-55 Serum or plasma protein measurement (mass/volume) 8.4 g/dL 6.4-8.2 Serum or plasma albumin measurement (mass/volume) 4.1 g/dL 3.2-4.5 Lipid 1996 panel - 09/23/17 10:30 Serum or plasma triglyceride measurement (mass/volume) 141 mg/dL <150 Serum or plasma cholesterol measurement (mass/volume) 136 mg/dL < 200 Serum or plasma cholesterol in HDL measurement (mass/volume) 32 mg/dL 40-60 Cholesterol in LDL [mass/volume] in serum or plasma by direct assay 79 mg/dL 1-129 Serum or plasma cholesterol in VLDL measurement (mass/volume) 28 mg/dL 5-40 Methicillin resistant Staphylococcus aureus (MRSA) screening culture - 09/23/17 10:30 Methicillin resistant Staphylococcus aureus (MRSA) screening culture NEG NRG Capillary blood glucose measurement by glucometer (mass/volume) - 09/23/17 21:48 Capillary blood glucose measurement by glucometer (mass/volume) [...] Automated erythrocyte mean corpuscular hemoglobin concentration measurement (mass/volume) 32 g/dL 32-36 Automated erythrocyte distribution width ratio 17.5 % 10.0- 14.5 Automated blood platelet count (count/volume) 166 10*3/uL [...] glucose measurement by glucometer (mass/volume) - 09/24/17 07:54 Capillary blood glucose measurement by glucometer (mass/volume) [...] Automated erythrocyte mean corpuscular hemoglobin concentration measurement (mass/volume) 33 g/dL 32-36 Automated erythrocyte distribution width ratio 15.8 % 10.0- 14.5 Automated blood platelet count (count/volume) 297 10*3/uL [...] Blood monocytes automated count (number/volume) 1.1 10*3 0.0- 1.0 Automated eosinophil count 0.2 10*3/uL 0.0-0.3 Automated [...] Serum or plasma aspartate aminotransferase measurement (enzymatic activity/volume) 16 U/L 5-34 Serum or plasma alanine aminotransferase measurement (enzymatic activity/volume) 12 U/L 0-55 Serum or plasma protein measurement (mass/volume) 8.0 g/dL 6.4-8.2 Serum or plasma albumin measurement (mass/volume) 3.7 g/dL 3.2-4.5 Magnesium - 12/22/17 19:20 Magnesium 1.7 mg/dL 1.8-2.4 Serum or plasma C reactive protein measurement (mass/volume) - 12/22/17 19:20 Serum or plasma C reactive protein measurement (mass/volume) 8.25 mg/dL 0.00-0.50 Serum or plasma troponin i.cardiac measurement (mass/volume) - 12/22/17 19:20 Serum or plasma troponin i.cardiac measurement (mass/volume) < ng/mL <0.30 Myoglobin, serum - 12/22/17 19:20 Myoglobin, serum 158.8 ng/mL 10.0-92.0 Serum or plasma lithium measurement (moles/volume) - 12/22/17 19:20 BNP level 397.0 pg/mL <100.0 Capillary blood glucose measurement by glucometer (mass/volume) - 12/23/17 05:13 Capillary blood glucose measurement by glucometer (mass/volume) [...] Automated erythrocyte mean corpuscular hemoglobin concentration measurement (mass/volume) 34 g/dL 32-36 Automated erythrocyte distribution width ratio 15.6 % 10.0- 14.5 Automated blood platelet count (count/volume) 297 10*3/uL [...] Blood monocytes automated count (number/volume) 0.9 10*3 0.0- 1.0 Automated eosinophil count 0.3 10*3/uL 0.0-0.3 Automated [...] Serum or plasma aspartate aminotransferase measurement (enzymatic activity/volume) 17 U/L 5-34 Serum or plasma alanine aminotransferase measurement (enzymatic activity/volume) 12 U/L 0-55 Serum or plasma protein measurement (mass/volume) 7.6 g/dL 6.4-8.2 Serum or plasma albumin measurement (mass/volume) 3.7 g/dL 3.2-4.5 Magnesium - 12/23/17 05:27 Magnesium 2.0 mg/dL 1.8-2.4 Serum or plasma troponin i.cardiac measurement (mass/volume) - 12/23/17 05:27 Serum or plasma troponin i.cardiac measurement (mass/volume) < ng/mL <0.30 Lipid 1996 panel - 12/23/17 05:27 Serum or plasma triglyceride measurement (mass/volume) 136 mg/dL <150 Serum or plasma cholesterol measurement (mass/volume) 135 mg/dL < 200 Serum or plasma cholesterol in HDL measurement (mass/volume) 25 mg/dL 40-60 Cholesterol in LDL [mass/volume] in serum or plasma by direct assay 86 mg/dL 1-129 Serum or plasma cholesterol in VLDL measurement (mass/volume) 27 mg/dL 5-40 Capillary blood glucose measurement by glucometer (mass/volume) - 12/23/17 11:01 Capillary blood glucose measurement by glucometer (mass/volume) 229 mg/dL 70-110 Complete urinalysis with reflex to culture - 02/03/18 15:55 Urine color determination YELLOW NRG Urine clarity determination CLEAR NRG Urine pH measurement by test strip 8 5-9 Specific gravity of urine by test strip 1.010 1.016-1.022 Urine protein assay by test strip, [...] sediment leukocyte count by microscopy (number/high power field) [HPF] NRG Bacteria detection in urine sediment [...] culture - 02/03/18 15:55 Bacterial urine culture [id number] NRG COLONY COUNT >100,000/ML NRG FTX;REPORTABLE RML [...] Automated erythrocyte mean corpuscular hemoglobin concentration measurement (mass/volume) 34 g/dL 32-36 Automated erythrocyte distribution width ratio 15.0 % 10.0- 14.5 Automated blood platelet count (count/volume) 261 10*3/uL [...] Blood monocytes automated count (number/volume) 0.7 10*3 0.0- 1.0 Automated eosinophil count 0.1 10*3/uL 0.0-0.3 Automated blood basophil count (count/volume) 0.0 10*3/uL 0.0-0.1 Fibrin D-dimer FEU measurement in platelet poor plasma (mass/volume) - 02/03/18 16:10 Fibrin D-dimer FEU measurement in platelet [...] Serum or plasma aspartate aminotransferase measurement (enzymatic activity/volume) 16 U/L 5-34 Serum or plasma alanine aminotransferase measurement (enzymatic activity/volume) 11 U/L 0-55 Serum or plasma protein measurement (mass/volume) 7.8 g/dL 6.4-8.2 Serum or plasma albumin measurement (mass/volume) 4.0 g/dL 3.2-4.5 Magnesium - 02/03/18 16:10 Magnesium 1.8 mg/dL 1.8-2.4 Blood lactic acid measurement (moles/volume) - 02/03/18 16:10 Blood lactic acid measurement (moles/volume) 2.87 mmol/L 0.50- 2.00 Serum or plasma lactate measurement (moles/volume) - 02/03/18 18:10 Serum or plasma lactate measurement (moles/volume) 1.95 mmol/L 0.50-2.00 Bacterial blood culture - 02/03/18 18:35 Bacterial blood culture [facility] Capillary blood glucose measurement by glucometer (mass/volume) - 02/03/18 21:00 Capillary blood glucose measurement by glucometer (mass/volume) 171 mg/dL 70-110 Capillary blood glucose measurement by glucometer (mass/volume) - 02/04/18 05:15 Capillary blood glucose measurement by glucometer (mass/volume) [...] Automated erythrocyte mean corpuscular hemoglobin concentration measurement (mass/volume) 33 g/dL 32-36 Automated erythrocyte distribution width ratio 15.5 % 10.0- 14.5 Automated blood platelet count (count/volume) 234 10*3/uL [...] Blood monocytes automated count (number/volume) 0.8 10*3 0.0- 1.0 Automated eosinophil count 0.2 10*3/uL 0.0-0.3 Automated [...] Serum or plasma aspartate aminotransferase measurement (enzymatic activity/volume) 17 U/L 5-34 Serum or plasma alanine aminotransferase measurement (enzymatic activity/volume) 11 U/L 0-55 Serum or plasma protein measurement (mass/volume) 6.8 g/dL 6.4-8.2 Serum or plasma albumin measurement (mass/volume) 3.5 g/dL 3.2-4.5 Capillary blood glucose measurement by glucometer (mass/volume) - 02/04/18 10:57 Capillary blood glucose measurement by glucometer (mass/volume) 122 mg/dL 70-110 Capillary blood glucose measurement by glucometer (mass/volume) - 02/04/18 16:03 Capillary blood glucose measurement by glucometer (mass/volume) 154 mg/dL 70-110 Capillary blood glucose measurement by glucometer (mass/volume) - 02/04/18 20:42 Capillary blood glucose measurement by glucometer (mass/volume) 133 mg/dL 70-110 Capillary blood glucose measurement by glucometer (mass/volume) - 02/05/18 05:11 Capillary blood glucose measurement by glucometer (mass/volume) [...] Automated erythrocyte mean corpuscular hemoglobin concentration measurement (mass/volume) 34 g/dL 32-36 Automated erythrocyte distribution width ratio 14.9 % 10.0- 14.5 Automated blood platelet count (count/volume) 206 10*3/uL [...] Blood monocytes automated count (number/volume) 0.7 10*3 0.0- 1.0 Automated eosinophil count 0.2 10*3/uL 0.0-0.3 Automated [...] Serum or plasma aspartate aminotransferase measurement (enzymatic activity/volume) 17 U/L 5-34 Serum or plasma alanine aminotransferase measurement (enzymatic activity/volume) 8 U/L 0-55 Serum or plasma protein measurement (mass/volume) 6.1 g/dL 6.4-8.2 Serum or plasma albumin measurement (mass/volume) 3.3 g/dL 3.2-4.5 Capillary blood glucose measurement by glucometer (mass/volume) - 02/05/18 11:01 Capillary blood glucose measurement by glucometer (mass/volume) 162 mg/dL 70-110 Automated blood complete blood count (hemogram) panel - 06/16/18 07:22 Blood leukocytes automated count (number/volume) 10.2 10*3/uL 4.3-11.0 Blood erythrocytes automated count (number/volume) 5.00 10*6/uL 4.35-5.85 Venous blood hemoglobin measurement (mass/volume) 14.2 g/dL 11.5-16.0 Blood hematocrit (volume fraction) 43 % 35-52 Automated erythrocyte mean corpuscular volume 86 [foz_us] 80-99 Automated erythrocyte mean corpuscular hemoglobin (mass per erythrocyte) 28 pg 25-34 Automated erythrocyte mean corpuscular hemoglobin concentration measurement (mass/volume) 33 g/dL 32-36 Automated erythrocyte distribution width ratio 16.1 % 10.0- 14.5 Automated blood platelet count (count/volume) 211 10*3/uL 130-400 Automated blood platelet mean volume measurement 9.8 [foz_us] 7.4-10.4 Comprehensive metabolic panel - 06/16/18 07:22 Serum or plasma sodium measurement (moles/volume) 141 mmol/L 135-145 Serum or plasma potassium measurement (moles/volume) 3.7 mmol/L 3.6-5.0 Serum or plasma chloride measurement (moles/volume) 98 mmol/L 98-107 Carbon dioxide 29 mmol/L 21-32 Serum or plasma anion gap determination (moles/volume) 14 mmol/L 5-14 Serum or plasma urea nitrogen measurement (mass/volume) 39 mg/dL 7-18 Serum or plasma creatinine measurement (mass/volume) 1.91 mg/dL 0.60-1.30 Serum or plasma urea nitrogen/creatinine mass ratio 20 NRG Serum or plasma creatinine measurement with calculation of estimated glomerular filtration rate 25 NRG Serum or plasma glucose measurement (mass/volume) 113 mg/dL 70-105 Serum or plasma calcium measurement (mass/volume) 9.7 mg/dL 8.5-10.1 Serum or plasma total bilirubin measurement (mass/volume) 0.6 mg/dL 0.1-1.0 Serum or plasma alkaline phosphatase measurement (enzymatic activity/volume) 70 U/L 40-136 Serum or plasma aspartate aminotransferase measurement (enzymatic activity/volume) 18 U/L 5-34 Serum or plasma alanine aminotransferase measurement (enzymatic activity/volume) 16 U/L 0-55 Serum or plasma protein measurement (mass/volume) 7.6 g/dL 6.4-8.2 Serum or plasma albumin measurement (mass/volume) 4.0 g/dL 3.2-4.5 CALCIUM CORRECTED 9.7 mg/dL 8.5-10.1 Lipid 1996 panel - 06/16/18 07:22 Serum or plasma triglyceride measurement (mass/volume) 118 mg/dL <150 Serum or plasma cholesterol measurement (mass/volume) 123 mg/dL < 200 Serum or plasma cholesterol in HDL measurement (mass/volume) 35 mg/dL 40-60 Cholesterol in LDL [mass/volume] in serum or plasma by direct assay 64 mg/dL 1-129 Serum or plasma cholesterol in VLDL measurement (mass/volume) 24 mg/dL 5-40 PT panel in platelet poor plasma by coagulation assay - 06/16/18 07:22 Prothrombin time (PT) in platelet poor plasma by coagulation assay 14.2 s 12.2-14.7 INR in platelet poor plasma or blood by coagulation assay 1.1 0.8-1.4 Activated partial thromboplastin time (aPTT) in platelet poor plasma bycoagulation assay - 06/16/18 07:22 Activated partial thromboplastin time (aPTT) in platelet poor plasma bycoagulation assay 31 s 24-35 Methicillin resistant Staphylococcus aureus (MRSA) screening culture - 06/16/18 07:22 Methicillin resistant Staphylococcus aureus (MRSA) screening culture NEG NRG Complete urinalysis with reflex to culture - 12/08/18 15:30 Urine color determination YELLOW NRG Urine clarity determination CLEAR NRG Urine pH measurement by test strip 7 5-9 Specific gravity of urine by test strip 1.010 1.016-1.022 Urine protein assay by test strip, semi-quantitative 1+ NEGATIVE Urine glucose detection by automated test [...] sediment leukocyte count by microscopy (number/high power field) [HPF] NRG Bacteria detection in urine sediment by light microscopy MODERATE NRG Crystals detection in urine sediment by light microscopy NONE NRG Casts detection in urine sediment by light microscopy NONE NRG Mucus detection in urine sediment by light microscopy NEGATIVE NRG Complete urinalysis with reflex to culture YES NRG Bacterial urine culture - 12/08/18 15:30 Bacterial urine culture [id number] NRG COLONY COUNT >100,000/ML NRG FTX;REPORTABLE SUSCEPTIBILITY REPORTED [id number]. NRG RML Sensitivity Panel - 12/08/18 15:30 Gentamicin susceptibility test by minimum inhibitory concentration [...] Nitrofurantoin susceptibility test by minimum inhibitory concentration <= NRG Amoxicillin and clavulanate potassium susc CHERRY <= NRG Encounters ACCT No. Visit Date/Time Discharge Status Pt. Type Provider Facility Loc./Unit Complaint [id number] 12/27/2018 14:17:00 12/27/2018 23:59:59 CLS Outpatient DIMPLE NOVOA MD [facility] CARD CAROTID ARTERY STENOSIS,CAD,HYPERTENSION [id number] 12/03/2018 09:52:00 12/17/2018 14:18:00 DIS Outpatient SKIP KERN APRN [facility] REHAB GENERAL WEAKNESS [id number] 12/08/2018 15:19:00 12/08/2018 23:59:59 CLS Outpatient JOE ROBERTSON MD [facility] LAB BURNING IN URINATION [id number] 06/16/2018 06:35:00 06/16/2018 23:59:59 CLS Outpatient DIMPLE NOVOA MD [facility] CATH NON HEALING WOUND,PAD,CAD,HTN [id number] 06/14/2018 12:32:00 06/14/2018 23:59:59 CLS Outpatient SKIP KERN APRN [facility] RAD CHRONIC KIDNEY DISEASE, STAGE 3 [id number] 04/28/2018 10:02:00 04/28/2018 23:59:59 CLS Outpatient NAOMY KING [facility] RAD SCREENING [id number] 03/16/2018 16:45:00 03/16/2018 23:59:59 CLS Preadmit NAOMY KING [facility] RAD SCREENING MAMMOGRAM,BREAST CANCER [id number] 03/16/2018 15:00:00 03/16/2018 23:59:59 CLS Outpatient GREG ALYCEBJORN Bender [facility] ONC [id number] 02/03/2018 15:00:00 02/05/2018 11:25:00 DIS Inpatient XIAO ROJAS, PRISCILLA Carr [facility] 4TH UTI HYPOTENSION [id number] 01/28/2018 12:48:00 01/28/2018 23:59:59 CLS Outpatient JARROD DAVIS [facility] RAD LT KNEE PAIN,LT KNEE SWELLING [id number] 01/27/2018 13:15:00 01/27/2018 23:59:59 CLS Preadmit VANGIE MOTT MD [facility] ENDO DYSPHAGIA [id number] 01/21/2018 05:39:00 01/21/2018 23:59:59 CLS Outpatient VANGIE MOTT MD [facility] PREOP EGD [id number] 12/22/2017 21:23:00 12/23/2017 13:30:00 DIS Inpatient MARCELO ROJAS, JOE Sherman [facility] 4TH NEW ONSET AFIB, ATYPICAL CP R/O ACS, HYPOXIA [id number] 09/23/2017 08:17:00 09/24/2017 08:35:00 DIS Outpatient DIMPLE NOVOA MD [facility] CATH ABNORMAL BARRY,PVD,CAD [id number] 09/10/2017 13:53:00 09/10/2017 23:59:59 CLS Outpatient DENIS WEAVER [facility] RAD N18.3 CHRONIC KIDNEY DISEASE STAGE 3 [id number] 09/07/2017 14:05:00 09/07/2017 23:59:59 CLS Preadmit DIMPLE NOVOA MD [facility] CARD I25.10 CAD [id number] 08/13/2017 09:15:00 08/13/2017 23:59:59 CLS Preadmit ANTHONY GARZA [facility] RAD Z12.31 [id number] 08/09/2017 14:46:00 08/09/2017 18:00:00 DIS Emergency DARYL PIEDRA FOLLOW UP SPECIALIST [facility] ER DIARRHEA/COLD/FLU SYMPTOMS [id number] 03/12/2017 09:52:00 03/12/2017 23:59:59 CLS Outpatient ANTHONY GARZA [facility] ONC [id number] 02/11/2017 07:44:00 02/11/2017 23:59:59 CLS Outpatient JOE ROBERTSON MD [facility] RAD RT THYROID MASS [id number] 01/27/2017 10:41:00 01/27/2017 23:59:59 CLS Outpatient JOE ROBERTSON MD [facility] CARD THYROID NODULE [id number] 01/26/2017 15:00:00 01/26/2017 23:59:59 CLS Preadmit JOE ROBERTSON MD [facility] CARD THYROID NODULE [id number] 01/08/2017 11:10:00 01/08/2017 23:59:59 CLS Outpatient JOE ROBERTSON MD [facility] CARD THYROID NODULE [id number] 12/26/2016 07:30:00 12/27/2016 11:45:00 DIS Outpatient DIMPLE NOVOA MD [facility] CATH ABN STRESS TEST,CP, HTN,HLP,DM [id number] 12/24/2016 10:48:00 12/24/2016 23:59:59 CLS Outpatient GRECIA DIXON [facility] CARD CAD I25.10 [id number] 12/17/2016 12:08:00 12/17/2016 23:59:59 CLS Outpatient ANUP SULTANA PATTERN WORKER [facility] RAD THYROID NODULE [id number] 08/12/2016 12:12:00 08/12/2016 23:59:59 CLS Outpatient NAOMY KINGP [facility] RAD SCREENING [id number] 06/06/2016 12:58:00 06/06/2016 23:59:59 CLS Outpatient DESTINEE SULTANA DO [facility] RAD THYROID NODULE [id number] 02/20/2016 12:58:00 02/20/2016 23:59:59 CLS Outpatient NAOMY KING PATTERN WORKER [facility] ONC [id number] 02/01/2016 08:32:00 02/01/2016 23:59:59 CLS Outpatient DIMPLE NOVOA MD [facility] RAD CAROTID STENOSIS,DIZZINESS [id number] 01/04/2016 11:01:00 01/04/2016 23:59:59 CLS Outpatient DIMPLE NOVOA MD [facility] RAD CAROTID STENOSIS [id number] 12/05/2015 14:52:00 12/06/2015 17:54:00 DIS Inpatient JOE ROBERTSON MD [facility] 4TH JARA,VERTIGO,URINARY TRACT INFECTION [id number] 11/22/2015 08:50:00 11/22/2015 12:00:00 DIS Outpatient JOE ROBERTSON MD [facility] WOUNDCARE [id number] 11/14/2015 07:23:00 11/14/2015 23:59:59 CLS Outpatient DESTINEE VANG MD [facility] CARD CAD [id number] 10/23/2015 08:46:00 10/23/2015 23:59:59 CLS Outpatient JOE ROBERTSON MD [facility] RAD DIABETIC FOOT ULCER [id number] 10/05/2015 10:00:00 10/06/2015 09:44:00 DIS Inpatient JOE ROBERTSON MD [facility] 4TH NAUSEA,VOMITING,DIAHERRA,BLOODY STOOL [id number] 10/03/2015 10:31:00 10/03/2015 23:59:59 CLS Outpatient JOE ROBERTSON MD [facility] RAD SOB [id number] 09/25/2015 12:38:00 09/25/2015 23:59:59 CLS Outpatient NAFISA CHRIS MD [facility] RAD MULTI NODULUAR GOITER [id number] 07/16/2015 16:14:00 07/16/2015 23:59:59 CLS Outpatient JOE ROBERTSON MD [facility] LAB CDIFF, DIARHHEA [id number] 06/27/2015 06:32:00 06/27/2015 23:59:59 CLS Outpatient JOE ROBERTSON MD [facility] LAB DIARRHEA [id number] 05/28/2015 21:30:00 05/28/2015 23:59:59 CLS Outpatient JOE ROBERTSON MD [facility] LAB DIARRHEA [id number] 05/10/2015 20:05:00 05/10/2015 21:32:00 DIS Emergency DENIS HAIDER DO K [facility] ER L SIDE FACIAL DROOPING [id number] 05/10/2015 12:00:00 05/10/2015 13:31:00 DIS Emergency ANGEL MCDOWELL MD [facility] ER FACIAL DROOPING/LEFT HAND NUMB [id number] 2015 13:56:00 2015 23:59:59 CLS Outpatient ANUP SULTANA PATTERN WORKER [facility] RAD DIFFICULTY SWALLOWING THYROIDMEGALLY [id number] 02/19/2015 12:28:00 02/19/2015 23:59:59 CLS Outpatient ANTHONY GARZA [facility] ONC [id number] 12/25/2014 16:05:00 12/26/2014 14:46:00 DIS Inpatient DIMPLE NOVOA MD [facility] CSD [id number] 08/31/2014 09:11:00 08/31/2014 23:59:59 CLS Outpatient NAOMY KING PATTERN WORKER [facility] RAD [id number] 08/30/2014 13:10:00 08/30/2014 23:59:59 CLS Outpatient JOE ROBERTSON MD [facility] LAB [id number] 08/21/2014 12:52:00 08/21/2014 23:59:59 CLS Outpatient KINGNAOMY Diaz PATTERN WORKER [facility] ONC [id number] 08/08/2014 12:54:00 08/08/2014 23:59:59 CLS Outpatient ANTHONY GARZA [facility] RAD [id number] 01/30/2014 13:02:00 01/30/2014 23:59:59 CLS Outpatient [id number] 11/09/2013 13:56:00 11/09/2013 23:59:59 CLS Outpatient KINGCHERYLILEANA Diaz PATTERN WORKER [facility] ONC [id number] 10/15/2013 18:23:00 10/15/2013 20:38:00 DIS Emergency [id number] 07/25/2013 12:48:00 07/25/2013 23:59:59 CLS Outpatient NAOMY KING PATTERN WORKER [facility] RAD BREAST CA, ABN SONO [id number] 05/12/2013 14:47:00 05/12/2013 23:59:59 CLS Outpatient [id number] 04/28/2013 15:16:00 04/28/2013 23:59:59 CLS Outpatient [id number] 12/10/2012 10:57:00 02/06/2013 00:01:00 DIS Outpatient [id number] 01/17/2013 12:08:00 01/17/2013 23:59:59 CLS Outpatient [id number] 12/27/2012 12:00:00 12/27/2012 23:59:59 CLS Outpatient [id number] 12/31/2018 08:30:00 PEN Preadmit AMADEO BARRETT MD [facility] ENDO DYSPHAGIA [id number] 12/28/2018 05:50:00 ACT Outpatient AMADEO BARRETT MD [facility] PREOP EGD [id number] 09/26/2015 00:00:00 Document Registration [id number] 08/10/2015 13:28:00 Document Registration [id number] 12/25/2014 17:28:00 Document Registration
--- NOTE | 2018-12-31 08:00 | Pre-Op Note & Conscious Sedat ---
Pre-Operative Progress Note H&P Reviewed The H&P was reviewed, patient examined and no changes noted. Date H&P Reviewed: Dec 31, 2018 Time H&P Reviewed: 07:59 Conscious Sedation Pre-Proced ASA Score 3 For ASA 3 and 4: Consider anesthesia and medical clearance. Also, for patients with a history of failed moderate sedation consider anesthesia. Airway Lungs Heart ASA score ASA 1: a normal healthy patient ASA 2: a patient with a mild systemic disease (mid diabetes, controlled hypertension, obesity ASA 3: a patient with a severe systemic disease that limits activity (angina, COPD, prior Myocardial infarction) ASA 4: a patient with an incapacitating disease that is a constant threat to life (CHF, renal failure) ASA 5: a moribund patient not expected to survive 24 hrs. (ruptured aneurysm) ASA 6: a declared brain- patient whose organs are being harvested. For emergent operations, add the letter E after the classification Mallampati Classification Grade 3 Sedation Plan Analgesia, Amnesia, Plan communicated to team members, Discussed options with patient/fam, Discussed risks with patient/fam The patient is an appropriate candidate to undergo the planned procedure, sedation, and anesthesia. The patient immediately re-assessed prior to indication. AMADEO BARRETT MD Dec 31, 2018 08:00
[2018-12-31] MEDS ORDERED: proPOfol 200 MG/20 ML (DIPRIVAN) VIAL IV ONE ×2 (08:25→09:13)
[2018-12-31] MEDS ORDERED: MIDAZOLAM 2 MG/2 ML (VERSED) VIAL ONE (08:25)
[2018-12-31] MEDS ORDERED: PROPOFOL INJECTION 0 ML IV ONE ×3 (08:25→09:09)
[2018-12-31] MEDS ORDERED: HURRICAINE EXT TUBE (BENZOCAINE) ONE (09:11)
[2018-12-31] MEDS ORDERED: LIDOCAINE JELLY 2% 6 ML SYRINGE ONE (09:27)
[2018-12-31 10:00] VITALS: BP 128/67
[2018-12-31 10:30] VITALS: BP 134/79
[2018-12-31 10:50] VITALS: BP 134/79
--- NOTE | 2018-12-31 14:28 | Anesthesia-General Post-Op ---
MAC Patient Condition Mental Status/LOC: Same as Preop Cardiovascular: Satisfactory Nausea/Vomiting: Absent Respiratory: Satisfactory Pain: Controlled Complications: Absent Post Op Complications Complications None Follow Up Care/Instructions Patient Instructions None needed. Anesthesiology Discharge Order Discharge Order Patient was seen this morning after the procedure and she was doing well, no complaints, stable vital signs, no apparent adverse anesthesia problems. ONEIL ROSALES DO Dec 31, 2018 14:28
--- NOTE | 2018-12-31 17:07 | OPERATIVE REPORT ---
DATE OF SERVICE: 12/31/2018 ESOPHAGOGASTRODUODENOSCOPY SUMMARY INDICATION FOR THE PROCEDURE: Epigastric pain, mild dysphagia. DESCRIPTION OF PROCEDURE: The patient was placed in the left lateral decubitus position. The endoscope was inserted in the oral cavity and under direct visualization, the esophagus was intubated. The endoscope was passed down the esophagus through the stomach and second portion of the duodenum. Careful inspection was made as the endoscope was withdrawn. The patient tolerated the procedure well requiring Diprivan anesthesia. FINDINGS: The proximal, mid and distal esophagus was unremarkable. There is a small sliding hiatal hernia without evidence for erosive esophagitis. No evidence to suggest Hickey's change was noted. No evidence for extrinsic compression was present. The cardia, fundus and antrum of the stomach were unremarkable except for small amount of retained food. The duodenal bulb and second and third portion of the duodenum were unremarkable without evidence for duodenitis or ulceration. ASSESSMENT AND PLAN: The patient does have a small to moderate-sized sliding hiatal hernia with a small amount of retained food in the stomach. The last meal was roughly 14 hours per patient report from the procedure, suggesting a component of diabetic gastroparesis. 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 She was advised to eat smaller amounts more frequently if needed, trying to portion control fatty food. She was reassured by today's findings. No evidence for mechanical obstruction was noted today. Considering the patient is on aspirin and Plavix for lower extremity stenting, biopsies were not performed. She was put back on aspirin and Plavix, but was advised to discuss with her storage management consultant at the next visit as to whether or not she can stop aspirin and continue Plavix. Due to medical comorbidity and age she is at increased risk for GI bleeding despite PPI therapy. I thank you for the referral of this pleasant lady. Job ID: [id number] DocumentID: [id number] Dictated Date: 12/31/2018 11:31:33 Product Development Director Date: 12/31/2018 17:07:08 Dictated By: AMADEO BARRETT MD [facility]ENTER[facility]ane
== END 2018-12-31 10:50 | disposition home or self-care (01) ==
LOC: ENDO 07:24
PROVIDERS: ATTEND Internal Medicine
DX: R13.10 Dysphagia, unspecified (principal); K44.9 Diaphragmatic hernia without obstruction or gangrene; I12.9 Hypertensive chronic kidney disease with stage 1 through stage 4 chronic kidney disease, or unspecified chronic kidney disease; E11.22 Type 2 diabetes mellitus with diabetic chronic kidney disease; N18.9 Chronic kidney disease, unspecified; I25.10 Atherosclerotic heart disease of native coronary artery without angina pectoris; E11.51 Type 2 diabetes mellitus with diabetic peripheral angiopathy without gangrene; I73.9 Peripheral vascular disease, unspecified; E66.9 Obesity, unspecified; Z68.33 Body mass index [BMI] 33.0-33.9, adult; Z79.02 Long term (current) use of antithrombotics/antiplatelets; Z79.82 Long term (current) use of aspirin; Z79.4 Long term (current) use of insulin; Z79.899 Other long term (current) drug therapy; Z95.820 Peripheral vascular angioplasty status with implants and grafts; Z95.0 Presence of cardiac pacemaker

== ENCOUNTER 2019-02-02 13:46 | Inpatient (IN) | payer MEDICARE, MEDICAID ==
[~2019-02-02] VITALS: Ht 167.6 cm; Wt 94.1 kg
[2019-02-02] MEDS ORDERED: NS IV 1000 ML 1,000 ML IV SCH ×2 (14:01)
--- NOTE | 2019-02-02 14:08 | NUR ---
ekg by me and to by me
[2019-02-02 14:12] LABS: BASOPHILS % (AUTO) 0 % (0-10); EOSINOPHILS # (AUTO) 0.2 10^3/uL (0.0-0.3); EOSINOPHILS % (AUTO) 2 % (0-10); HEMATOCRIT 46 % (35-52); HEMOGLOBIN 15.3 G/DL (11.5-16.0); LYMPHOCYTES # (AUTO) 2.7 X 10^3 (1.0-4.0); LYMPHOCYTES % (AUTO) 26 % (12-44); MEAN CORPUSCULAR HEMOGLOBIN 26 PG (25-34); MEAN CORPUSCULAR HGB CONC 33 G/DL (32-36); MEAN CORPUSCULAR VOLUME 79 FL (80-99); MEAN PLATELET VOLUME 10.4 FL (7.4-10.4); MONOCYTES # (AUTO) 0.9 X 10^3 (0.0-1.0); MONOCYTES % (AUTO) 9 % (0-12); NEUTROPHILS # (AUTO) 6.3 X 10^3 (1.8-7.8); NEUTROPHILS % (AUTO) 62 % (42-75); PLATELET COUNT 196 10^3/uL (130-400); RED CELL DISTRIBUTION WIDTH 18.2 % (10.0-14.5); WHITE BLOOD COUNT 10.1 10^3/uL (4.3-11.0)
--- NOTE | 2019-02-02 14:13 | ED Syncope ---
General Chief Complaint: Abdominal/GI Problems Stated Complaint: DIZZINESS;N/V Source of Information: Patient Exam Limitations: No Limitations History of Present Illness Date Seen by Provider: Feb 02, 2019 Time Seen by Provider: 13:53 Initial Comments Patient presents to the ER by EMS with chief complaint of been having diarrhea chronically for years in the past 2 weeks it's been worsening usual she been feeling lightheaded, like she is about to pass out and when she was trying to clean herself up on the toilet with her granddaughter present she said she passed out and her granddaughter caught her. Her family ever since she did not strike her head but she was out for about a minute and would not answer question s or respond. She also noticed her left corner of her mouth was down turned and said she was slurring her speech. That resolved spontaneously before EMS arrived. EMS reports she had a normal blood sugar. Patient denies any fever or dysuria discharge, abdominal pain. She has no shortness of breath or cough. Syncopal episode occurred about one hour prior to arrival. Allergies and Home Medications Allergies Coded Allergies: sulfamethoxazole (Verified Allergy, Intermediate, 10/05/15) tramadol (Verified Allergy, Intermediate, 10/05/15) trimethoprim (Verified Allergy, Intermediate, 10/05/15) Penicillins (Verified Allergy, Unknown, 10/05/15) codeine (Verified Allergy, Unknown, CAN TAKE MORPHINE, 10/05/15) hydrocodone (Verified Allergy, Unknown, 10/05/15) amiodarone (Verified Adverse Reaction, Mild, NAUSEA, dizziness, 02/01/16) Home Medications Clopidogrel Bisulfate 75 Mg Tablet, 75 MG PO DAILY, (Reported) Cyanocobalamin 1,000 Mcg/Ml Inj, 1,000 MCG IJ MONTHLY, (Reported) Diazepam 5 Mg Tablet, 5 MG PO DAILY PRN for ANXIETY, (Reported) Ergocalciferol (Vitamin D2) 50,000 Unit Capsule, 50,000 UNITS PO Tu, (Reported) Insulin Aspart 100 Unit/1 Ml Susp, PER INSULIN PUMP, (Reported) Insulin Detemir 100 Unit/1 Ml Insuln.pen, 10-15 UNITS SQ HS PRN for BS ABOVE 200, (Reported) Liraglutide 0.6 Mg/0.1 Ml Pen.injctr, 1.2 MG SQ HS, (Reported) Loperamide HCl 2 Mg Tablet, PO UD PRN for DIARRHEA, (Reported) Metoprolol Succinate 25 Mg Tab.er.24h, 12.5 MG PO DAILY, (Reported) TAKES 1/2 (25MG) TABLET Nitroglycerin 0.4 Mg Tab.subl, 0.4 MG SL UD PRN for CHEST PAIN, (Reported) Pantoprazole Sodium 40 Mg Tablet.dr, 40 MG PO HS, (Reported) Potassium Chloride 20 Meq Tab.er.prt, 10 MEQ PO BID, (Reported) LAST FILLED #30 12-21-17 TAKES 1/2 (20MEQ) TABLET Rosuvastatin Calcium 20 Mg Tablet, 20 MG PO HS, (Reported) LAST FILLED #90 09-07-17 Patient Home Medication List Home Medication List Reviewed: Yes Review of Systems Constitutional: No chills, No diaphoresis; dizziness; No fever, No malaise; weakness EENTM: No hearing loss, No ear pain Respiratory: No cough, No short of breath Cardiovascular: No chest pain, No edema; syncope Gastrointestinal: No abdominal pain, No constipation; diarrhea Genitourinary: No decreased output, No discharge Musculoskeletal: No back pain, No joint pain Past Rgmbpdq-Bcbuya-Cfbdrb Hx Patient Social History Alcohol Use: Denies Use Recreational Drug Use: No Smoking Status: Never a Smoker 2nd Hand Smoke Exposure: No Recent Hopitalizations: Yes (op testing) Immunizations Up To Date Tetanus Booster (TDap): Less than 5yrs Date of Pneumonia Vaccine: Apr 23, 2017 Date of Influenza Vaccine: May 20, 2018 Seasonal Allergies Seasonal Allergies: No Past Medical History Surgeries: Yes (PACEMAKER, CAROTID ARTERY, HEART CATH-STENTS /ANGIOPLASTY) Cardiac, Coronary Stent, Gallbladder, Hysterectomy, Orthopedic, Pacemaker, V ascular Surgery Respiratory: Yes Sleep Apnea Currently Using CPAP: No Currently Using BIPAP: No Cardiac: Yes (PACEMAKER, CHF, STENTS X10) Chronic Edema/Swelling, Coronary Artery Disease, Heart Attack, Heart Murmur, High Cholesterol, Hypertension, Peripheral Vascular Neurological: Yes (TIA AFTER STENT IN JUNE) Neuropathy, TIA Reproductive Disorders: No 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 ) Endocrine: Yes (INSULIN PUMP, 3 THYROID NODULES) Diabetes, Insulin dep Cataract Loss of Vision: Right Hearing Impairment: Deaf Cancer: Yes (BREAST CA 2010) Breast Did You Recieve Any Treatments: Yes What Type of Treatment Did You: Radiation Psychosocial: No Integumentary: Yes (DIABETIC FOOT ULCER ON LEFT--PT STATES IS NOW HEALED. ) Blood Disorders: No Adverse Reaction/Blood Tranf: No Family Medical History Cardiovascular disease 19 MOTHER G8 SISTER Completed stroke 19 FATHER G8 SISTER Diabetes mellitus 19 FATHER G8 SISTER G8 SISTER FH: cancer G8 SISTER G8 SISTER Myocardial infarction G8 BROTHER (65 YEARS OLD) Physical Exam Vital Signs Vital Signs - First Documented 02/02/19 13:51 Temp 97.4 Pulse 81 Resp 18 B/P (MAP) 112/72 (85) Pulse Ox 97 O2 Delivery Room Air Capillary Refill : Height, Weight, BMI Height: 5'6.00" Weight: 206lbs. 1.0oz. 93.403621ht; 33.3 BMI Method:Stated General Appearance: No Apparent Distress, WD/WN HEENT: PERRL/EOMI, TMs Normal, Normal ENT Inspection, Pharynx Normal; No Moist Mucous Membranes Neck: Full Range of Motion, Normal Inspection, Non Tender, Supple Cardiovascular: Regular Rate, Rhythm, No Murmur, Normal Peripheral Pulses, Tachycardia Respiratory: Chest Non Tender, Lungs Clear, Normal Breath Sounds, No Accessory Muscle Use, No Respiratory Distress Gastrointestinal: Normal Bowel Sounds, No Organomegaly, Non Tender, Soft Extremities: Normal Capillary Refill, Normal Inspection, Normal Range of Motion, Non Tender, No Pedal Edema Neurologic/Psychiatric: Alert, Oriented x3, No Motor/Sensory Deficits, Normal Mood/Affect, 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 II-XII Norm as Tested Cranial Nerves: Normal Hearing, Normal Speech, PERRL Coordination/Gait: Normal Finger to Nose Motor/Sensory: No Motor Deficit, No Sensory Deficit, No Pronator Drift Skin: Normal Color, Warm/Dry Focused Exam Lactate Level 02/02/19 14:20: Lactic Acid Level 4.70*H 02/02/19 16:20: Lactic Acid Level 3.17*H Lactic Acid Level Laboratory Tests Test 02/02/19 14:20 02/02/19 16:20 Lactic Acid Level 4.70 MMOL/L (0.50-2.00) *H 3.17 MMOL/L (0.50-2.00) *H Progress/Results/Core Measures Results/Orders Lab Results Laboratory Tests Test 02/02/19 13:55 02/02/19 14:20 02/02/19 14:53 02/02/19 16:20 Range/Units White Blood Count 10.1 4.3-11.0 10^3/uL Red Blood Count 5.83 4.35-5.85 10^6/uL Hemoglobin 15.3 11.5-16.0 G/DL Hematocrit 46 35-52 % Mean Corpuscular Volume 79 L 80-99 FL Mean Corpuscular Hemoglobin 26 25-34 PG Mean Corpuscular Hemoglobin Concent 33 32-36 G/DL Red Cell Distribution Width 18.2 H 10.0-14.5 % Platelet Count 196 130-400 10^3/uL Mean Platelet Volume 10.4 7.4-10.4 FL Neutrophils (%) (Auto) 62 42-75 % Lymphocytes (%) (Auto) 26 12-44 % Monocytes (%) (Auto) 9 0-12 % Eosinophils (%) (Auto) 2 0-10 % Basophils (%) (Auto) 0 0-10 % Neutrophils # (Auto) 6.3 1.8-7.8 X 10^3 Lymphocytes # (Auto) 2.7 1.0-4.0 X 10^3 Monocytes # (Auto) 0.9 0.0-1.0 X 10^3 Eosinophils # (Auto) 0.2 0.0-0.3 10^3/uL Basophils # (Auto) 0.0 0.0-0.1 10^3/uL Prothrombin Time 14.4 12.2-14.7 SEC INR Comment 1.1 0.8-1.4 Activated Partial Thromboplast Time 26 24-35 SEC Sodium Level 134 L 135-145 MMOL/L Potassium Level 2.9 L 3.6-5.0 MMOL/L Chloride Level 84 L 98-107 MMOL/L Carbon Dioxide Level 30 21-32 MMOL/L Anion Gap 20 H 5-14 MMOL/L Blood Urea Nitrogen 55 H 7-18 MG/DL Creatinine 2.69 H 0.60-1.30 MG/DL Estimat Glomerular Filtration Rate 17 BUN/Creatinine Ratio 20 Glucose Level 204 H 70-105 MG/DL Calcium Level 10.6 H 8.5-10.1 MG/DL Corrected Calcium 10.4 H 8.5-10.1 MG/DL Magnesium Level 2.0 1.8-2.4 MG/DL Total Bilirubin 0.7 0.1-1.0 MG/DL Aspartate Amino Transf (AST/SGOT) 26 5-34 U/L Alanine Aminotransferase (ALT/SGPT) 16 0-55 U/L Alkaline Phosphatase 78 40-136 U/L Troponin I 0.814 *H <0.028 NG/ML B-Type Natriuretic Peptide 422.1 H <100.0 PG/ML Total Protein 8.1 6.4-8.2 GM/DL Albumin 4.2 3.2-4.5 GM/DL Lactic Acid Level 4.70 *H 3.17 *H 0.50-2.00 MMOL/L Urine Color YELLOW Urine Clarity SLIGHTLY CLOUDY Urine pH 7 5-9 Urine Specific Allison 1.005 L 1.016-1.022 Urine Protein 1+ H NEGATIVE Urine Glucose (UA) NEGATIVE NEGATIVE Urine Ketones NEGATIVE NEGATIVE Urine Nitrite NEGATIVE NEGATIVE Urine Bilirubin NEGATIVE NEGATIVE Urine Urobilinogen NORMAL NORMAL MG/DL Urine Leukocyte Esterase NEGATIVE NEGATIVE Urine RBC (Auto) 2+ H NEGATIVE Urine RBC NONE /HPF Urine WBC RARE /HPF Urine Squamous Epithelial Cells 2-5 /HPF Urine Crystals PRESENT H /LPF Urine Amorphous Sediment FEW PARIS PHOSPHATE H /LPF Urine Bacteria LARGE H /HPF Urine Casts NONE /LPF Urine Mucus NEGATIVE /LPF Urine Culture Indicated CULTURE PENDING My Orders Orders - NIGHAT HASSAN Ct Head Wo (02/02/19 14:01) Cbc With Automated Diff (02/02/19 14:01) Comprehensive Metabolic Panel (02/02/19 14:01) Blood Culture (02/02/19 14:01) Sputum Culture (02/02/19 14:01) Urinalysis (02/02/19 14:01) Urine Culture (02/02/19 14:01) Protime With Inr (02/02/19 14:01) Partial Thromboplastin Time (02/02/19 14:01) Chest 1 View, Ap/Pa Only (02/02/19 14:01) Ed Iv/Invasive Line Start (02/02/19 14:01) Ed Iv/Invasive Line Start (02/02/19 14:01) Ekg Tracing (02/02/19 14:01) Troponin I (02/02/19 14:01) Vital Signs Adult Sepsis Patie Q15M (02/02/19 14:01) Ondansetron Injection (Zofran Injectio (02/02/19 14:15) O2 (02/02/19 14:01) Remove Rings In Anticipation O (02/02/19 14:01) Lactic Acid Analyzer (02/02/19 14:01) Ns Iv 1000 Ml (Sodium Chloride 0.9%) (02/02/19 14:01) Ed Iv/Invasive Line Start (02/02/19 14:01) Ns Iv 1000 Ml (Sodium Chloride 0.9%) (02/02/19 14:01) BNP (02/02/19 14:01) Ed Iv/Invasive Line Start (02/02/19 14:51) Ns Iv 500 Ml (Sodium Chloride 0.9%) (02/02/19 14:51) Magnesium (02/02/19 14:52) Potassium Cl 10meq/50ml Ivpb (Kcl 10 Meq (02/02/19 15:00) Potassium Chloride (Tablet) (K Dur Table (02/02/19 15:00) Medications Given in ED Current Medications Medications Dose Ordered Sig/Tresa Route Start Time Stop Time Status Last Admin Dose Admin Ondansetron HCl 8 mg ONCE ONCE IV 02/02/19 14:15 02/02/19 14:16 DC 02/02/19 14:19 8 MG Potassium Chloride 20 meq ONCE ONCE PO 02/02/19 15:00 02/02/19 15:01 DC 02/02/19 15:17 20 MEQ Potassium Chloride 50 ml @ 50 mls/hr ONCE ONCE IV 02/02/19 15:00 02/02/19 15:59 DC 02/02/19 15:38 50 MLS/HR Sodium Chloride 500 ml @ 0 mls/hr Q0M ONCE IV 02/02/19 14:51 02/02/19 14:52 DC 02/02/19 16:34 500 MLS/HR Vital Signs/I&O 02/02/19 13:51 Temp 97.4 Pulse 81 Resp 18 B/P (MAP) 112/72 (85) Pulse Ox 97 O2 Delivery Room Air Progress Progress Note : Time: 14:13 Progress Note Syncopal episode. She had diarrhea, fluid loss. We'll check labs. She is breathing in the 20-23 range we'll obtain a chest x-ray and a septic workup. Heart rate is not elevated but she is on metoprolol albeit a small amount to [address] of the head, even though she did not strike her head or neck and was caught by her granddaughter, she is on Plavix. Oxygen sats are 100% on room air. She has evidence of a right carotid endarterectomy on clinical exam. History of COPD stage IIIb. Diabetes, hormone replacement therapy, GERD, hyperlipidemia, hypertension, coronary artery disease, breast cancer on the left side, CHF. Cardiac catheterization 2017 with balloon angioplasty and back the same day to have another stent placed. Known to Dr. Randolph, nephrology for her stage IV CKD. Hyperlipidemia, diabetes, sick sinus syndrome on a pacemaker, right carotid endarterectomy with a CT angiogram 2015 demonstrating no significant stenosis in the internal carotids, peripheral arterial disease, paroxysmal atrial fibrillation, mild to moderate aortic stenosis. Echocardiogram by Dr. Bauman 2018December 27: EF 55-65% with wall thickness mildly moderately increased. 1550: Her pacemaker was reviewed with [facility] and they said there are no events since November. Initial ECG Impression Date: Feb 02, 2019 Initial ECG Impression Time: 14:02 Initial ECG Rate: 88 Initial ECG Rhythm: A Fib/Flutter Initial ECG Intervals: QT (499) Initial ECG Impression: Normal, Nonspecific Changes Initial ECG Comparisson: Unchanged Comment No ST elevation or depression Diagnostic Imaging Diagonstic Imaging: Xray Plain Films/CT/US/NM/MRI: chest (1v) Comments NAME: ANUP SUH [facility] REC#: [id number] PHYSICIAN: NIGHAT HASSAN MD CC: MOIRA ZAVALA MD; NIGHAT HASSAN Page 1 of 1 RADIOLOGY REPORT [facility] [place], [place] CC: MOIRA ZAVALA MD; NIGHAT HASSAN Page 1 of 1 RADIOLOGY REPORT NAME: ANUP SUH [facility] REC#: [id number] PT STATUS: REG ER : 1940 PHYSICIAN: NIGHAT HASSAN MD ADMIT DATE: 02/02/19/ER Signed Date of Exam: 02/02/19 CHEST 1 VIEW, AP/PA ONLY Indication: Syncopal episode Portable chest 3:09 PM There is a left subclavian dual-chamber pacemaker. Heart size and pulmonary vascularity are normal. Lungs are clear. There are no effusions or pneumothoraces. Impression: Negative chest Dictated by: Dictated on workstation # [id number] Dict: 02/02/19 1515 Trans: 02/02/191515 Interpreted by: MOIRA ZAVALA MD Electronically signed by: MOIRA ZAVALA MD 02/02/191515 Reviewed: Reviewed by Me Diagonstic Imaging: CT (noncontrast) Plain Films/CT/US/NM/MRI: head Comments NAME: ANUP SUH [facility] REC#: [id number] PT STATUS: REG ER : 1940 PHYSICIAN: NIGHAT HASSAN MD ADMIT DATE: 02/02/19/ER Signed Date of Exam:02/02/19 CT HEAD WO PROCEDURE: CT head without contrast. TECHNIQUE: Multiple contiguous axial images were obtained through the brain without the use of intravenous contrast. Auto Exposure Controls were utilized during the CT exam to meet ALARA standards for radiation dose reduction. INDICATION: Dizziness and syncopal episode. COMPARISON: Correlation is made with prior head CT from 05/10/2015. FINDINGS: Ventricles and sulci are within normal limits. Moderate periventricular hypodensity is noted consistent with chronic microvascular ischemia. No sulcal effacement or midline shift is seen. No acute intra-axial or extra-axial hemorrhage is detected. Cisterns are patent. Visualized paranasal sinuses are clear. IMPRESSION: Chronic changes. No acute intracranial process is detected. Dictated by: Dictated on workstation # [id number] Dict: 02/02/19 1513 Trans: 02/02/19 1550 [facility] [id number] Interpreted by: AUGUSTA PERALES MD Electronically signed by: AUGUSTA PERALES MD 02/02/19 155 Reviewed: Reviewed by Me Departure Communication (Admissions) Time/Spoke to Admitting Phy: 16:45 Discussed case lab imaging EKG with Dr. Hill she agrees to admit the patient to the stepdown unit and follow serial troponins. Time/Spoke to Consulting Phy: 15:30 Dr. Mcdonnell recommends echo if not done recently and serial troponins if medicine is okay to admit. Impression Primary Impression: Dehydration Additional Impressions: Gastroenteritis and colitis, viral Elevated troponin I level Chronic kidney disease, stage IV (severe) Disposition: ADMITTED INPATIENT Condition: Stable Admissions Decision to Admit Reason: Admit from ER (General) Decision to Admit/Date: Feb 02, 2019 Time/Decision to Admit Time: 16:15 Departure-Patient Inst. Referrals: JOE ROBERTSON MD (PCP/Family) Primary Care Physician Stroke Onset of Symptoms Date of Onset of Symptoms: Feb 02, 2019 Time of Symptom Onset: 13:00 Onset of Symptoms: Yes Symptoms onset unknown: No NIH Stroke Scale Assessment Select: Initial Level of Consciousness: 0=Alert (0), Level of Consciousness- Questions: 0=Answers both month/age (0), LOC Commands: 0=Performs both tasks (0), Gaze: Normal (0), Visual Fleming: 0=No visual loss (0), Facial Movement (Facial Paresis): 0=Normal symmetrical mnt (0), Motor Function-Arms Right: 0=No drift (0), Motor Function-Arms Left: 0=No drift (0), Motor Function-Legs Right: 0=No drift (0), Motor Function-Legs Left: 0=No drift (0), Limb Ataxia: 0=Absent (0), Sensory: 0=Normal:no loss (0), Best Language: 0=No aphasia (0), Dysarthria: 0=Normal (0), Extinction & Inattention: 0=No abnormality (0), Total: 0 Stroke Thrombolytic Exclusion Age 18 or Over: Yes Acute intenal hemorrhage: No History of CVA: Yes Uncontrolled Coagulation Defec: No Intracranial Hemorrhage: No Severe Hypertension: No GI or Bleed: No Subarachnoid Hemorrhage: No Intracranial Neoplasm/Aneurysm: No Oral Anticoagulants: No Surgery or Trauma: No Puncture of Non-Compressible V: No Recent CPR: No Diabetic Hemorrhagic Retinopat: No Organ Biopsy: No Recent Obstetric Delivery: No Glucose: No Significant Hepatic Dysfunctio: No NIH Stoke Scale >22: No Bacterial Endocarditis: No Pericarditis: No Improving Symptoms: Yes Platelets: No TPA Contraindication: Yes IV - TPa Received IV - TPa Procedure Performed?: No (NIH 0) NIGHAT HASSAN Feb 02, 2019 14:13
[2019-02-02 14:15] LABS: INR 1.1 (0.8-1.4); PROTHROMBIN TIME PATIENT 14.4 SEC (12.2-14.7)
[2019-02-02] MEDS ORDERED: ONDANSETRON 4 MG/2 ML (SDV) Z0FRAN IV ONE (14:15)
[2019-02-02 14:25] LABS: ALBUMIN 4.2 GM/DL (3.2-4.5); BILIRUBIN,TOTAL 0.7 MG/DL (0.1-1.0); CALCIUM 10.6 MG/DL (8.5-10.1); CREATININE SERUM 2.69 MG/DL (0.60-1.30); POTASSIUM 2.9 MMOL/L (3.6-5.0); TOTAL PROTEIN 8.1 GM/DL (6.4-8.2)
[2019-02-02] MEDS ORDERED: NS IV 500 ML 500 ML IV ONE (14:51)
[2019-02-02] MEDS ORDERED: POTASSIUM CL 10MEQ/50ML IVPB 50 ML IV ONE (15:00)
[2019-02-02] MEDS ORDERED: KCL 20 MEQ TAB (K-DUR) PO ONE (15:00)
[2019-02-02 15:02] LABS: BILIRUBIN,URINE NEGATIVE (NEGATIVE); CLARITY,URINE SLIGHTLY CLOUDY; COLOR,URINE YELLOW; GLUCOSE, URINE (UA) NEGATIVE (NEGATIVE); KETONES,URINE NEGATIVE (NEGATIVE); LEUKOCYTE ESTERASE ,URINE NEGATIVE (NEGATIVE); NITRITE,URINE NEGATIVE (NEGATIVE); PH,URINE 7 (5-9); PROTEIN,URINE 1+ (NEGATIVE); UROBILINOGEN,URINE NORMAL (NORMAL)
[2019-02-02 15:11] LABS: AMORPHOUS SEDIMENT,UR FEW AMOR PHOSPHATE /LPF; BACTERIA,URINE LARGE /HPF; WBC,URINE RARE /HPF
--- NOTE | 2019-02-02 15:17 | Diagnostic Imaging Report ---
PROCEDURE: CT head without contrast. TECHNIQUE: Multiple contiguous axial images were obtained through the brain without the use of intravenous contrast. Auto Exposure Controls were utilized during the CT exam to meet ALARA standards for radiation dose reduction. INDICATION: Dizziness and syncopal episode. COMPARISON: Correlation is made with prior head CT from 05/10/2015. FINDINGS: Ventricles and sulci are within normal limits. Moderate periventricular hypodensity is noted consistent with chronic microvascular ischemia. No sulcal effacement or midline shift is seen. No acute intra-axial or extra-axial hemorrhage is detected. Cisterns are patent. Visualized paranasal sinuses are clear. IMPRESSION: Chronic changes. No acute intracranial process is detected. Dictated by: Dictated on workstation # [id number]
--- NOTE | 2019-02-02 15:19 | Diagnostic Imaging Report ---
Indication: Syncopal episode Portable chest 3:09 PM There is a left subclavian dual-chamber pacemaker. Heart size and pulmonary vascularity are normal. Lungs are clear. There are no effusions or pneumothoraces. Impression: Negative chest Dictated by: Dictated on workstation # [id number]
[2019-02-02 18:15] VITALS: BP 133/59
[2019-02-02] MEDS ORDERED: LOPERAMIDE 2 MG (IMODIUM) TABLET PO PRN (18:15)
[2019-02-02] MEDS ORDERED: DIAZEPAM 5 MG (VALIUM) TABLET PO PRN (18:15)
[2019-02-02] MEDS ORDERED: CATHETER FLUSH 10 ML SYR IV PRN (18:15)
[2019-02-02] MEDS ORDERED: ACETAMINOPHEN 500 MG TAB (TYLENOL) PO PRN (18:15)
[2019-02-02] MEDS ORDERED: ONDANSETRON 4 MG/2 ML (SDV) Z0FRAN IV PRN (18:15)
--- NOTE | 2019-02-02 18:16 | NUR ---
SARAHY SUHRICIA Olaf admitted to room CU4-1, on 02/02/19 from AM via cart, accompanied by staff.ANUP SUH introduced to surroundings, call light, bed controls, phone, TV, temperature control, lights, meal times, smoking policy, visitor policy, side rail policy, bathrooms and showers. Patient Rights given to patient in the handbook. ANUP SUH verbalizes understanding that [facility] is not responsible for the loss or damage to any personal effects or valuables that are kept in the patients posession during their hospitalization. The following Patient Care Plans were discussed with the pt: Discharge Planning. ANUP SUH verbalizes understanding of Interdisciplinary Patient Education. Patient and/or family were informed about the Rapid Response Team and its purpose.
[2019-02-02] MEDS: NS W/KCL 40 MEQ/L 1,000 ML IV SCH (18:29)
[2019-02-02] MEDS: KCL 20 MEQ TAB (K-DUR) PO SCH (18:31)
--- NOTE | 2019-02-02 18:42 | Consultation-Cardiology ---
HPI-Cardiology Cardiology Consultation: Date of Consultation 02/02/19 Date of Admission Attending Physician Helena Morris MD Admitting Physician Rashaun Gonzales MD Consulting Physician Bruno MCDONNELL MD HPI: Time Seen by a Provider: 18:42 Chief Complaint: Syncope This is a 78-year-old lady with history of chronic kidney disease who presents with chronic diarrhea and dehydration with lightheadedness. She had an episode of syncope before arrival to the ER and possible slurred speech. EMS was called, normal blood sugar. No significant shortness of breath or chest pain. He has history of CAD, PCI. She also has history of sinus node dysfunction and permanent pacemaker implantation. Review of Systems-Cardiology Review of Systems Constitutional: As described under HPI; No As described under HPI, No no symptoms reported, No chills, No fever, No lightheadedness Eyes: No As described under HPI, No no symptoms reported, No blindness, No blurred vision, No contact lenses, No drainage, No decreased acuity, No foreign body sensation, No pain, No vision change Ears/Nose/Throat: No As described under HPI, No no symptoms reported, No chronic hearing loss, No ear discharge, No ear pain, No nasal drainage, No ulcerations Respiratory: No no symptoms reported; As described under HPI; No As described under HPI, No cough, No orthopnea, No shortness of breath, No SOB with excertion Cardiovascular: No no symptoms reported; As described under HPI; No As described under HPI, No chest pain, No edema, No irregular heart rate, No lightheadedness, No palpitations; syncope Gastrointestinal: No no symptoms reported, No As described under HPI, No abdomen distended, No abdominal pain, No blood streaked bowels, No constipation; diarrhea; No nausea, No vomiting, No stool coloration changes Genitourinary: No As described under HPI, No burning, No dysuria, No discharge, No frequency, No flank pain, No hematuria, No urgency : Yes : No Skin: No rash, No skin related problems, No ulcerations Psychiatric/Neurological: No anxiety, No depression, No seizure, No focal weakness, No syncope Hematologic: No bleeding abnormalities ZBD-[id number]-Borvaf Hx Patient Social History Alcohol Use: Denies Use Recreational Drug Use: No Smoking Status: Never a Smoker 2nd Hand Smoke Exposure: No Recent Foreign Travel: No Recent Infectious Disease Expo: No Immunizations Up To Date Tetanus Booster (TDap): Less than 5yrs Date of Pneumonia Vaccine: Apr 23, 2017 Date of Influenza Vaccine: May 20, 2018 Past Medical History PMH As described under Assessment. Family Medical History Family History: Cardiovascular disease 19 MOTHER G8 SISTER Completed stroke 19 FATHER G8 SISTER Diabetes mellitus 19 FATHER G8 SISTER G8 SISTER FH: cancer G8 SISTER G8 SISTER Myocardial infarction G8 BROTHER (65 YEARS OLD) Allergies and Home Medications Allergies Coded Allergies: sulfamethoxazole (Verified Allergy, Intermediate, 10/05/15) tramadol (Verified Allergy, Intermediate, 10/05/15) trimethoprim (Verified Allergy, Intermediate, 10/05/15) Penicillins (Verified Allergy, Unknown, 10/05/15) codeine (Verified Allergy, Unknown, CAN TAKE MORPHINE, 10/05/15) hydrocodone (Verified Allergy, Unknown, 10/05/15) amiodarone (Verified Adverse Reaction, Mild, NAUSEA, dizziness, 02/01/16) Home Medications Allopurinol 100 Mg Tablet, 100 MG PO MoTh, (Reported) Cholecalciferol (Vitamin D3) 5,000 Unit Capsule, 5,000 UNIT PO DAILY, (Reported) Clopidogrel Bisulfate 75 Mg Tablet, 75 MG PO DAILY, (Reported) Cyanocobalamin 1,000 Mcg/Ml Inj, 1,000 MCG IJ MONTHLY, (Reported) Diazepam 5 Mg Tablet, 5 MG PO DAILY PRN for ANXIETY, (Reported) Estrogens Conjugated 30 Gm Cr, VG MoWeFr, (Reported) Insulin Aspart 100 Unit/1 Ml Susp, PER INSULIN PUMP, (Reported) Liraglutide 0.6 Mg/0.1 Ml Pen.injctr, 1.2 MG SC HS, (Reported) Metolazone 2.5 Mg Tablet, 2.5 MG PO MoTh, (Reported) Metoprolol Succinate 25 Mg Tab.er.24h, 12.5 MG PO DAILY, (Reported) TAKES 1/2 (25MG) TABLET Nitroglycerin 0.4 Mg Tab.subl, 0.4 MG SL UD PRN for CHEST PAIN, (Reported) Pantoprazole Sodium 40 Mg Tablet.dr, 40 MG PO HS, (Reported) Potassium Chloride 20 Meq Tab.er.prt, 10 MEQ PO BID, (Reported) TAKES 1/2 (10MEQ) TABLETS Rosuvastatin Calcium 20 Mg Tablet, 20 MG PO HS, (Reported) Torsemide 100 Mg Tablet, 100 MG PO DAILY, (Reported) Patient Home Medication List Home Medication List Reviewed: Yes Physical Exam-Cardiology Physical Exam Vital Signs/I&O 02/03/19 02/03/19 02/03/19 02/03/19 07:00 08:00 08:00 09:00 Pulse 85 97 Resp 20 B/P (MAP) 110/49 (69) Pulse Ox 99 98 98 O2 Delivery Room Air Room Air Room Air 02/03/19 02/03/19 02/03/19 02/03/19 11:18 12:00 12:00 12:50 Temp 96.7 Pulse 85 99 B/P (MAP) 131/88 (102) Pulse Ox 98 99 O2 Delivery Room Air Room Air 02/03/19 02/03/19 02/03/19 15:08 15:45 16:00 Temp 97.4 Pulse 76 B/P (MAP) 121/57 (78) Pulse Ox 98 94 O2 Delivery Room Air Room Air 02/03/19 00:00 Intake Total 3250 ml Balance 3250 ml Capillary Refill : Less Than 3 Seconds Constitutional: appears stated age, AAO x 3; No apparent distress; well- developed, well-nourished HEENT: PERRL; No normal ENT inspection, No TMs normal, No pharynx normal, No scleral icterus (R), No scleral icterus (L), No pale conjunctivae (R), No pale conjunctivae (L), No photophobia, No TM abnormal (R), No TM abnormal (L), No pharyngeal erythema, No tonsillar exudate, No other, No discharge, No EOMI; h earing is well preserved; No hard of hearing; oral hygience is good; No ulceration, No xanthelasmas are seen Neck: No carotid bruit; carotid pulses are 2 + bilaterally Respiratory: No accessory muscle use, No respiratory distress, No chest tender, No chest expansion is symmetric; chest is bilaterally symmetric; No lungs clear to percussion; lungs clear to auscultation; No crackles, No rhonchi, No rales, No stridor, No wheezing, No pleural rub, No other Cardiovascular: irregularly irregular; No extra beats, No parasternal heave is noted, No JVD, No edema, No bradycardia, No tachycardia, No point of maximal impulse, No cardiac thrills are palpable; S1 and S2; No gallop/S3, No gallop/S4, No diastolic murmur, No systolic murmur, No friction rub, No click, No other Gastrointestinal: No tender, No soft, No round, No distended, No pulsatile mass, No organomegaly, No guarding, No rebound, No tenderness, No hernia, No mass, No audible bowel sounds, No abnormal bowel sounds, No abdominal bruits, No spleenomegaly, No other Rectal: deferred Extremities: No normal range of motion, No non-tender, No normal inspection, No pedal edema, No calf tenderness, No normal capillary refill, No pelvis stable, No calf tenderness, No inflammation, No pedal edema, No slow capillary refill, No swelling, No other, No abrasion, No clubbing, No cyanosis, No ecchymosis, No laceration, No no lower extremity edema bilateral, No significant edema, No tenderness, No wound Neurologic/Psychiatric: no motor/sensory deficits, alert, normal mood/affect, oriented x 3, power is 5/5 both on sides Skin: No normal color, No warm/dry, No cyanosis, No cool, No diaphoresis, No damp, No ecchymosis, No jaundice, No mottled, No pallor, No rash, No tattoos/piercings, No ulcerations, No rash on exposed areas, No ulcerations on exposed areas, No other Data Review Labs Laboratory Tests 02/02/19 20:00: Troponin I 1.278*H 02/02/19 21:37: Glucometer 283H 02/03/19 02:00: Troponin I 1.824*H, White Blood Count 9.0, Red Blood Count 4.82, Hemoglobin 12.7, Hematocrit 39, Mean Corpuscular Volume 81, Mean Corpuscular Hemoglobin 26, Mean Corpuscular Hemoglobin Concent 33, Red Cell Distribution Width 17.6H, Platelet Count 180, Mean Platelet Volume 10.3, Neutrophils (%) (Auto) 62, Lymphocytes (%) (Auto) 24, Monocytes (%) (Auto) 11, Eosinophils (%) (Auto) 2, Basophils (%) (Auto) 0, Neutrophils # (Auto) 5.6, Lymphocytes # (Auto) 2.1, Monocytes # (Auto) 1.0, Eosinophils # (Auto) 0.2, Basophils # (Auto) 0.0, Sodium Level 138, Potassium Level 6.2H, Chloride Level 103, Carbon Dioxide Level 25, Anion Gap 10, Blood Urea Nitrogen 47H, Creatinine 2.05H, Estimat Glomerular F iltration Rate 23, BUN/Creatinine Ratio 23, Glucose Level 141H, Calcium Level 8.1L, Corrected Calcium 8.9, Total Bilirubin 0.4, Aspartate Amino Transf (AST/SGOT) 24, Alanine Aminotransferase (ALT/SGPT) 12, Alkaline Phosphatase 53, Total Protein 5.8L, Albumin 3.0L 02/03/19 09:50: Potassium Level 4.3 02/03/19 11:18: Glucometer 273H 02/03/19 15:39: Glucometer 272H Microbiology 02/02/19 Blood Culture - Preliminary, Resulted No growth 02/02/19 Urine Culture - Preliminary, Resulted Escherichia coli ECG Impression ECG Initial ECG Impression: Atrial Fibrillation A/P-Cardiology Assessment/Admission Diagnosis Syncope, Chronic diarrhea, Chronic kidney disease, Positive troponin, Atrial fibrillation, CAD/PCI Plan Syncope, could be secondary to dehydration. IV fluids. Echocardiogram. Chronic diarrhea, Chronic kidney disease, acute on chronic kidney injury. IV fluids. Positive troponin, working diagnosis is non-STEMI in a patient with previous history of PCI. However we will delay coronary angiography, to optimize renal function. However I did discuss with the patient and family about the risk and complication of coronary angiography including worsening renal function and even a small chance of dialysis. Atrial fibrillation, likely new onset. CAD/PCI, continue dual antiplatelet therapy. Thank you for your consultation. Please call me if you have any questions. Lorraine Mcdonnell MD, FACP, FACC, FSCAI, FHRS, CCDS Interventional Cardiology Cardiac Electrophysiology Vascular Medicine and Endovascular Interventions Clinical Quality Measures DVT/VTE Risk/Contraindication: Risk Factor Score Per Nursin RFS Level Per Nursing on Admit: 4+=Very High Stroke: Date of last known well: Feb 02, 2019 Time of last known well: 13:00 Symptoms onset unknown: Bruno Rosen MD Feb 02, 2019 6:42 pm
[2019-02-02 20:00] VITALS: BP 123/56
[2019-02-02] MEDS: ALLOPURINOL 100 MG (ZYLOPRIM) TAB PO SCH (21:14)
[2019-02-03 00:07] VITALS: BP 117/53
[2019-02-03] MEDS: NS W/KCL 40 MEQ/L 1,000 ML IV SCH ×2 (00:11→04:36)
[2019-02-03 02:06] LABS: BASOPHILS % (AUTO) 0 % (0-10); EOSINOPHILS # (AUTO) 0.2 10^3/uL (0.0-0.3); EOSINOPHILS % (AUTO) 2 % (0-10); HEMATOCRIT 39 % (35-52); HEMOGLOBIN 12.7 G/DL (11.5-16.0); LYMPHOCYTES # (AUTO) 2.1 X 10^3 (1.0-4.0); LYMPHOCYTES % (AUTO) 24 % (12-44); MEAN CORPUSCULAR HEMOGLOBIN 26 PG (25-34); MEAN CORPUSCULAR HGB CONC 33 G/DL (32-36); MEAN CORPUSCULAR VOLUME 81 FL (80-99); MEAN PLATELET VOLUME 10.3 FL (7.4-10.4); MONOCYTES % (AUTO) 11 % (0-12); NEUTROPHILS # (AUTO) 5.6 X 10^3 (1.8-7.8); NEUTROPHILS % (AUTO) 62 % (42-75); PLATELET COUNT 180 10^3/uL (130-400); RED CELL DISTRIBUTION WIDTH 17.6 % (10.0-14.5)
[2019-02-03 02:25] LABS: BILIRUBIN,TOTAL 0.4 MG/DL (0.1-1.0); CALCIUM 8.1 MG/DL (8.5-10.1); CREATININE SERUM 2.05 MG/DL (0.60-1.30); POTASSIUM 6.2 MMOL/L (3.6-5.0); TOTAL PROTEIN 5.8 GM/DL (6.4-8.2)
[2019-02-03 04:00] VITALS: BP 119/68
--- NOTE | 2019-02-03 06:25 | NUR ---
trop have increased through the night dr florez notified.. orders recieved to start pt on brilinta 90mg bid dcd plavix and npo after breakfast for laboratory tester this afternoon. consents signed supervisor burling and joining made aware
[2019-02-03] MEDS: KCL 20 MEQ TAB (K-DUR) PO SCH (06:38)
[2019-02-03] MEDS: PANTOPRAZOLE 40 MG (PROTONIX) TAB PO SCH (06:43)
[2019-02-03] MEDS ORDERED: HEParin (CATH LAB) 0 ML IV ONE (07:10)
[2019-02-03] MEDS ORDERED: LIDOCAINE 1% INJ 20 ML 20 ML VIAL ONE (07:10)
[2019-02-03 08:00] VITALS: BP 110/49
--- NOTE | 2019-02-03 08:56 | History & Physical-Hospitalist ---
History of Present Illness HPI/Chief Complaint Patient is a 78-year-old female with past medical history of insulin- dependent diabetes type II sick sinus syndrome status post pacemaker coronary artery disease status post stenting and chronic kidney disease who presented to the emergency room with chief complaint of diarrhea 2 weeks she states that she has chronic diarrhea but over the past 2 weeks that's been worse. She's not been feeling well and her has been in the hospital in the ICU for pneumonia. She was visiting him yesterday and was not feeling well so went home where she began to have uncontrollable diarrhea became lightheaded and passed out she does not remember this but her granddaughter reports that. On arrival to the emergency department she was found to have acute kidney injury up from her baseline creatinine of 1.7 of 2.9. She was also found to have a mildly elevated troponin. Her troponin continued to rise throughout the night. She did not suffer any chest pain shortness of breath dyspnea on exertion. Cardiology has been consulted and there is a plan for cardiac catheterization later today. Source: patient Date Seen 02/03/19 Time Seen by a Provider: 07:45 Attending Physician Analia Morris MD PCP Rashaun Gonzales MD Referring Physician Date of Admission Feb 02, 2019 at 16:50 Home Medications & Allergies Home Medications Reviewed patient Home Medication Reconciliation performed by pharmacy medication reconciliations computer field technician and/or nursing. Patients Allergies have been reviewed. Allergies Allergies Coded Allergies sulfamethoxazole (Verified Allergy, Intermediate, 10/05/15) tramadol (Verified Allergy, Intermediate, 10/05/15) trimethoprim (Verified Allergy, Intermediate, 10/05/15) Penicillins (Verified Allergy, Unknown, 10/05/15) codeine (Verified Allergy, Unknown, CAN TAKE MORPHINE, 10/05/15) hydrocodone (Verified Allergy, Unknown, 10/05/15) amiodarone (Verified Adverse Reaction, Mild, NAUSEA, dizziness, 02/01/16) Past [id number] Hx Past Med/Social Hx: Reviewed Nursing Past Med/Soc Hx Patient Social History Marrital Status: Employed/Student: retired Alcohol Use: Denies Use Recreational Drug Use: No Smoking Status: Never a Smoker 2nd Hand Smoke Exposure: No Recent Foreign Travel: No Contact w/other who traveled: No Recent Hopitalizations: No Recent Infectious Disease Expo: No Immunizations Up To Date Tetanus Booster (TDap): Less than 5yrs Date of Pneumonia Vaccine: Apr 23, 2017 Date of Influenza Vaccine: May 20, 2018 Seasonal Allergies Seasonal Allergies: No Past Medical History Surgeries: Cardiac, Coronary Stent, Gallbladder, Hysterectomy, Orthopedic, Pacemaker, Vascular Surgery Currently Using CPAP: No Currently Using BIPAP: No Cardiac: Atrial Fibrillation, Chronic Edema/Swelling, Coronary Artery Disease, Heart Attack, Heart Murmur, High Cholesterol, Hypertension, Peripheral Vascular Neurological: Neuropathy, TIA Reproductive: No Sexually Transmitted Disease: No Hysterectomy, Menopausal Genitourinary: Bladder Infection, UTI-Chronic Gastrointestinal: Irritable Bowel Endocrine: Diabetes, Insulin dep HEENT: Cataract Loss of Vision: Right Hearing Impairment: Deaf Cancer: Breast Did You Recieve Any Treatments: Yes What Type of Treatment Did You: Radiation History of Blood Disorders: No Adverse Reaction to Blood High: No Family History Cardiovascular disease 19 MOTHER G8 SISTER Completed stroke 19 FATHER G8 SISTER Diabetes mellitus 19 FATHER G8 SISTER G8 SISTER FH: cancer G8 SISTER G8 SISTER Myocardial infarction G8 BROTHER (65 YEARS OLD) Review of Systems Constitutional: No chills, No fever; weakness EENTM: no symptoms reported Respiratory: no symptoms reported Cardiovascular: No chest pain; Hx of Intervention; No palpitations; syncope Gastrointestinal: diarrhea Genitourinary: other (chronic UTI) Musculoskeletal: no symptoms reported Skin: no symptoms reported Psychiatric/Neurological: Paresthesia (chronic- LE from neuropathy) Physical Exam Physical Exam Vital Signs Vital Signs - First Documented 02/02/19 13:51 Temp 97.4 Pulse 81 Resp 18 B/P (MAP) 112/72 (85) Pulse Ox 97 O2 Delivery Room Air Capillary Refill : Less Than 3 SecondsLess Than 3 Seconds Height, Weight, BMI Height: 5'6.00" Weight: 207lbs. 9.0oz. [id number]; 33.5 BMI Method:Stated General Appearance: No Apparent Distress, WD/WN, Obese HEENT: Moist Mucous Membranes; No Scleral Icterus (L), No Scleral Icterus (R) Neck: Normal Inspection, Supple; No Thyromegaly Respiratory: Lungs Clear, No Accessory Muscle Use, No Respiratory Distress Cardiovascular: Regular Rate, Rhythm, No Murmur Gastrointestinal: Normal Bowel Sounds, Non Tender, Soft Extremity: No Calf Tenderness, No Pedal Edema Neurologic/Psychiatric: Alert, Oriented x3, Normal Mood/Affect; No Aphasia, No Facial Droop Skin: Normal Color, Warm/Dry Results Results/Procedures Labs Laboratory Tests 02/02/19 13:55 02/03/19 02:00 02/03/19 09:50 Patient resulted labs reviewed. Imaging: Reviewed Imaging Report Assessment/Plan Admission Diagnosis NSTEMI Admission Status: Inpatient Order (span 2 midnights) Reason for Inpatient Admission: needs cardiac cath and close monitoring of renal function given CKD with IVF, will take more than two midnights to stablilze for discharge Assessment and Plan Assessment NSTEMI Acute on chronic kidney disease stage III Insulin-dependent diabetes Dehydration Gastroenteritis Sick sinus syndrome with pacemaker Diabetic nephropathy Diabetic neuropathy Known coronary disease status post stenting Hyperkalemia Plan Plan for cardiac catheterization later today for Dr. Mcdonnell Continue IV fluids with close monitoring of renal function Resume home medications PT/OT Monitor on telemetry Stopping K in fluids and rechecking now treat accordingly Diagnosis/Problems Diagnosis/Problems (1) Chronic kidney disease, stage IV (severe) Status: Acute (2) SSS (sick sinus syndrome) Status: Chronic (3) Hypertension Status: Acute (4) IDDM (insulin dependent diabetes mellitus) Status: Acute (5) Coronary artery disease Status: Acute (6) Diabetic neuropathy Status: Acute (7) Elevated troponin I level Status: Acute (8) Dehydration Status: Acute Clinical Quality Measures DVT/VTE Risk/Contraindication: Risk Factor Score Per Nursin RFS Level Per Nursing on Admit: 4+=Very High Stroke: Date of last known well: Feb 02, 2019 Time of last known well: 13:00 Symptoms onset unknown: No ANALIA MORRIS MD Feb 03, 2019 8:56 am
[2019-02-03] MEDS: ALLOPURINOL 100 MG (ZYLOPRIM) TAB PO SCH (09:00)
[2019-02-03] MEDS ORDERED: CLOPIDOGREL 75 MG (PLAVIX) TABLET PO SCH (09:00)
[2019-02-03] MEDS: TICAGRELOR 90 MG TABLET (BRILINTA) PO SCH ×2 (10:00→20:55)
[2019-02-03] MEDS: NS IV 1000 ML 1,000 ML IV SCH ×2 (10:00→19:46)
[2019-02-03] MEDS ORDERED: EST30C VG (10:43)
[2019-02-03] MEDS ORDERED: POTA20TA15 PO (10:43)
[2019-02-03] MEDS ORDERED: NITR0.4T42 SL (10:43)
[2019-02-03] MEDS ORDERED: ROSU20TA31 PO (10:43)
[2019-02-03] MEDS ORDERED: ALLO100T PO (10:43)
[2019-02-03] MEDS ORDERED: LIRA0.6P SC (10:43)
[2019-02-03] MEDS ORDERED: METO2.5T PO (10:43)
[2019-02-03] MEDS ORDERED: CHOL5000 PO (10:47)
[2019-02-03] MEDS ORDERED: TORS100T4 PO (10:47)
--- NOTE | 2019-02-03 10:53 | NUR ---
PATIENT HAD A MEDICATION LIST WITH HER. I COMPARED IT WITH THE EXT MED HX. HER ALLOPURINOL WAS FILLED DAILY HOWEVER SHE STATES SHE ONLY TAKES IT ON THURSDAY AND THURSDAY.
[2019-02-03 12:00] VITALS: BP 131/88
--- NOTE | 2019-02-03 12:00 | NUR ---
Pt did not dose self with insulin at this time.
--- NOTE | 2019-02-03 13:19 | NUR ---
Initial visit: pt was raised Amish but has no buddhism affiliation at this time. Pt's is also in ICU. This assembler piano offered emotional support while pt's was being intubated. She visited his prior to the procedure, and directly afterwards asked if I would help her complete her Advanced Directive. Her granddaughter and primary support, Johanna, said that when the pt is stressed she brittani by taking care of tasks. Completed HDPOA and Living Will. Placed copy in pt's chart. Johanna was raised by her grandparents and demonstrates strong, loving relationship with them. She said she wished her mother would come to the hospital and expressed feeling alone. States her mother told her that because she herself is not the DPOA, she will not come to the hospital. Johanna said her mother is likely at home drinking alcohol to cope, because "that is how she has coped for years." Offered empathic listening and compassionate presence.
[2019-02-03 16:00] VITALS: BP 121/57
--- NOTE | 2019-02-03 16:00 | NUR ---
Pt dosed self with 10 units of insulin at this time for a blood sugar of 272.
--- NOTE | 2019-02-03 18:32 | Cardiology Progress Note ---
Cardiology SOAP Progress Note Subjective: No cardiac symptoms. Objective: I&O/Vital Signs 02/03/19 02/03/19 02/03/19 02/03/19 07:00 08:00 08:00 09:00 Pulse 85 97 Resp 20 B/P (MAP) 110/49 (69) Pulse Ox 99 98 98 O2 Delivery Room Air Room Air Room Air 02/03/19 02/03/19 02/03/19 02/03/19 11:18 12:00 12:00 12:50 Temp 96.7 Pulse 85 99 B/P (MAP) 131/88 (102) Pulse Ox 98 99 O2 Delivery Room Air Room Air 02/03/19 02/03/19 02/03/19 15:08 15:45 16:00 Temp 97.4 Pulse 76 B/P (MAP) 121/57 (78) Pulse Ox 98 94 O2 Delivery Room Air Room Air 02/03/19 00:00 Intake Total 3250 ml Balance 3250 ml Weight (Pounds): 207 Weight (Ounces): 9.0 Weight (Calculated Kilograms): 94.759781 Constitutional: appears stated age, AAO x 3; No apparent distress; well- developed, well-nourished Respiratory: No accessory muscle use, No respiratory distress, No chest tender, No chest expansion is symmetric; chest is bilaterally symmetric; No lungs clear to percussion; lungs clear to auscultation; No crackles, No rhonchi, No rales, No stridor, No wheezing, No pleural rub, No other Cardiovascular: irregularly irregular; No extra beats, No parasternal heave is noted, No JVD, No edema, No bradycardia, No tachycardia, No point of maximal impulse, No cardiac thrills are palpable; S1 and S2; No gallop/S3, No gallop/S4, No diastolic murmur, No systolic murmur, No friction rub, No click, No other Gastrointestional: No tender, No soft, No round, No distended, No pulsatile mass, No organomegaly, No guarding, No rebound, No tenderness, No hernia, No mass, No audible bowel sounds, No abnormal bowel sounds, No abdominal bruits, No spleenomegaly, No other Extremities: No normal range of motion, No non-tender, No normal inspection, No pedal edema, No calf tenderness, No normal capillary refill, No pelvis stable, No calf tenderness, No inflammation, No pedal edema, No slow capillary refill, No swelling, No other, No abrasion, No clubbing, No cyanosis, No ecchymosis, No laceration, No no lower extremity edema bilateral, No significant edema, No tenderness, No wound Neurologic/Psychiatric: no motor/sensory deficits, alert, normal mood/affect, oriented x 3, power is 5/5 both on sides Skin: No normal color, No warm/dry, No cyanosis, No cool, No diaphoresis, No damp, No ecchymosis, No jaundice, No mottled, No pallor, No rash, No tattoos/p iercings, No ulcerations, No rash on exposed areas, No ulcerations on exposed areas, No other Results/Procedures: Labs Laboratory Tests 02/02/19 20:00: Troponin I 1.278*H 02/02/19 21:37: Glucometer 283H 02/03/19 02:00: Troponin I 1.824*H, White Blood Count 9.0, Red Blood Count 4.82, Hemoglobin 12.7, Hematocrit 39, Mean Corpuscular Volume 81, Mean Corpuscular Hemoglobin 26, Mean Corpuscular Hemoglobin Concent 33, Red Cell Distribution Width 17.6H, Platelet Count 180, Mean Platelet Volume 10.3, Neutrophils (%) (Auto) 62, Lymphocytes (%) (Auto) 24, Monocytes (%) (Auto) 11, Eosinophils (%) (Auto) 2, Basophils (%) (Auto) 0, Neutrophils # (Auto) 5.6, Lymphocytes # (Auto) 2.1, Monocytes # (Auto) 1.0, Eosinophils # (Auto) 0.2, Basophils # (Auto) 0.0, Sodium Level 138, Potassium Level 6.2H, Chloride Level 103, Carbon Dioxide Level 25, Anion Gap 10, Blood Urea Nitrogen 47H, Creatinine 2.05H, Estimat Glomerular Filtration Rate 23, BUN/Creatinine Ratio 23, Glucose Level 141H, Calcium Level 8.1L, Corrected Calcium 8.9, Total Bilirubin 0.4, Aspartate Amino Transf (AST/SGOT) 24, Alanine Aminotransferase (ALT/SGPT) 12, Alkaline Phosphatase 53, Total Protein 5.8L, Albumin 3.0L 02/03/19 09:50: Potassium Level 4.3 02/03/19 11:18: Glucometer 273H 02/03/19 15:39: Glucometer 272H Microbiology 02/02/19 Blood Culture - Preliminary, Resulted No growth 02/02/19 Urine Culture - Preliminary, Resulted Escherichia coli A/P: Assessment/Dx: Syncope, Chronic diarrhea, Chronic kidney disease, Positive troponin, Atrial fibrillation, CAD/PCI Plan: Syncope, could be secondary to dehydration. IV fluids. Echocardiogram. Chronic diarrhea, Chronic kidney disease, acute on chronic kidney injury. IV fluids. Hyperkalemia. Defer to the primary team. Positive troponin, working diagnosis is non-STEMI in a patient with previous history of PCI. However we will delay coronary angiography, to optimize renal function. However I did discuss with the patient and family about the risk and complication of coronary angiography including worsening renal function and even a small chance of dialysis. Atrial fibrillation, likely new onset. CAD/PCI, continue dual antiplatelet therapy. Thank you for your consultation. Please call me if you have any questions. Lorraine Mcdonnell MD, FACP, FACC, FSCAI, FHRS, CCDS Interventional Cardiology Cardiac Electrophysiology Vascular Medicine and Endovascular Interventions Focused Exam Lactate Level 02/02/19 14:20: Lactic Acid Level 4.70*H 02/02/19 16:20: Lactic Acid Level 3.17*H Clinical Quality Measures Stroke: Date of last known well: Feb 02, 2019 Time of last known well: 13:00 Symptoms onset unknown: Bruno Rosen MD Feb 03, 2019 6:32 pm
[2019-02-03] MEDS: inSUlin ASPART (NovoLOG) 1 UNIT/0.01 ML (CHARGE PER UNIT) SC SCH (21:15)
--- NOTE | 2019-02-03 21:16 | NUR ---
FSBS 235 PT. HAS INSULIN PUMP, GAVE HERSELF 10 UNITS.
[2019-02-03 23:30] VITALS: BP 108/54
[2019-02-04] VITALS (14 sets, daily range): BP systolic 116–154; BP diastolic 49–77
[2019-02-04] MEDS: NS IV 1000 ML 1,000 ML IV SCH ×3 (05:42→21:19)
[2019-02-04] MEDS: PANTOPRAZOLE 40 MG (PROTONIX) TAB PO SCH (05:50)
[2019-02-04] MEDS: inSUlin ASPART (NovoLOG) 1 UNIT/0.01 ML (CHARGE PER UNIT) SC SCH ×4 (06:02→21:18)
[2019-02-04] MEDS ORDERED: HEParin (CATH LAB) 2,000 ML IV ONE (06:47)
[2019-02-04] MEDS ORDERED: LIDOCAINE 1% INJ 20 ML 20 ML VIAL ONE (06:47)
[2019-02-04 08:12] LABS: HEMOGLOBIN 13.3 G/DL (11.5-16.0); WHITE BLOOD COUNT 8.1 10^3/uL (4.3-11.0)
[2019-02-04 08:13] LABS: BASOPHILS % (AUTO) 0 % (0-10); EOSINOPHILS # (AUTO) 0.3 10^3/uL (0.0-0.3); EOSINOPHILS % (AUTO) 4 % (0-10); HEMATOCRIT 42 % (35-52); LYMPHOCYTES # (AUTO) 2.1 X 10^3 (1.0-4.0); LYMPHOCYTES % (AUTO) 26 % (12-44); MEAN CORPUSCULAR HEMOGLOBIN 26 PG (25-34); MEAN CORPUSCULAR HGB CONC 32 G/DL (32-36); MEAN CORPUSCULAR VOLUME 83 FL (80-99); MEAN PLATELET VOLUME 10.2 FL (7.4-10.4); MONOCYTES # (AUTO) 0.8 X 10^3 (0.0-1.0); MONOCYTES % (AUTO) 10 % (0-12); NEUTROPHILS # (AUTO) 4.8 X 10^3 (1.8-7.8); NEUTROPHILS % (AUTO) 60 % (42-75); PLATELET COUNT 156 10^3/uL (130-400); RED CELL DISTRIBUTION WIDTH 18.1 % (10.0-14.5)
[2019-02-04] MEDS: TICAGRELOR 90 MG TABLET (BRILINTA) PO SCH ×2 (08:20→21:18)
[2019-02-04 08:38] LABS: CALCIUM 9.2 MG/DL (8.5-10.1); CREATININE SERUM 1.9 MG/DL (0.60-1.30); POTASSIUM 3.7 MMOL/L (3.6-5.0)
--- NOTE | 2019-02-04 10:18 | Cardiology Progress Note ---
Cardiology SOAP Progress Note Subjective: no further chest pain. Objective: I&O/Vital Signs 02/03/19 02/04/19 02/04/19 02/04/19 23:30 00:00 01:00 04:00 Temp 97.7 Pulse 73 75 Resp 20 B/P (MAP) 108/54 (72) Pulse Ox 96 O2 Delivery Room Air Room Air Room Air 02/04/19 02/04/19 02/04/19 02/04/19 04:43 07:00 08:00 08:00 Temp 97.0 Pulse 94 65 71 Resp 20 B/P (MAP) 122/66 (84) 140/55 (83) Pulse Ox 97 99 O2 Delivery Room Air Room Air Room Air 02/04/19 09:00 O2 Delivery Room Air 02/04/19 00:00 Intake Total 1950 ml Output Total 0 ml Balance 1950 ml Weight (Pounds): 207 Weight (Ounces): 9.0 Weight (Calculated Kilograms): 94.795099 Constitutional: appears stated age, AAO x 3; No apparent distress; well- developed, well-nourished Respiratory: No accessory muscle use, No respiratory distress, No chest tender, No chest expansion is symmetric; chest is bilaterally symmetric; No lungs clear to percussion; lungs clear to auscultation; No crackles, No rhonchi, No rales, No stridor, No wheezing, No pleural rub, No other Cardiovascular: irregularly irregular; No extra beats, No parasternal heave is noted, No JVD, No edema, No bradycardia, No tachycardia, No point of maximal impulse, No cardiac thrills are palpable; S1 and S2; No gallop/S3, No gallop/S4, No diastolic murmur, No systolic murmur, No friction rub, No click, No other Gastrointestional: No tender, No soft, No round, No distended, No pulsatile mass, No organomegaly, No guarding, No rebound, No tenderness, No hernia, No mass, No audible bowel sounds, No abnormal bowel sounds, No abdominal bruits, No spleenomegaly, No other Extremities: No normal range of motion, No non-tender, No normal inspection, No pedal edema, No calf tenderness, No normal capillary refill, No pelvis stable, No calf tenderness, No inflammation, No pedal edema, No slow capillary refill, No swelling, No other, No abrasion, No clubbing, No cyanosis, No ecchymosis, No laceration, No no lower extremity edema bilateral, No significant edema, No tenderness, No wound Neurologic/Psychiatric: no motor/sensory deficits, alert, normal mood/affect, oriented x 3, power is 5/5 both on sides Skin: No normal color, No warm/dry, No cyanosis, No cool, No diaphoresis, No damp, No ecchymosis, No jaundice, No mottled, No pallor, No rash, No tattoos/piercings, No ulcerations, No rash on exposed areas, No ulcerations on exposed areas, No other Results/Procedures: Labs Laboratory Tests 02/03/19 11:18: Glucometer 273H 02/03/19 15:39: Glucometer 272H 02/03/19 21:13: Glucometer 235H 02/04/19 05:55: Glucometer 95 02/04/19 08:05: White Blood Count 8.1, Red Blood Count 5.09, Hemoglobin 13.3, Hematocrit 42, Mean Corpuscular Volume 83, Mean Corpuscular Hemoglobin 26, Mean Corpuscular Hemoglobin Concent 32, Red Cell Distribution Width 18.1H, Platelet Count 156, Mean Platelet Volume 10.2, Neutrophils (%) (Auto) 60, Lymphocytes (%) (Auto) 26, Monocytes (%) (Auto) 10, Eosinophils (%) (Auto) 4, Basophils (%) (Auto) 0, Neutrophils # (Auto) 4.8, Lymphocytes # (Auto) 2.1, Monocytes # (Auto) 0.8, Eosinophils # (Auto) 0.3, Basophils # (Auto) 0.0, Sodium Level 139, Potassium Level 3.7, Chloride Level 105, Carbon Dioxide Level 23, Anion Gap 11, Blood Urea Nitrogen 36H, Creatinine 1.90H, Estimat Glomerular Filtration Rate 26, BUN/Creatinine Ratio 19, Glucose Level 111H, Calcium Level 9.2 Microbiology 02/02/19 Blood Culture - Preliminary, Resulted No growth 02/02/19 Urine Culture - Preliminary, Resulted Escherichia coli A/P: Assessment/Dx: Syncope, Chronic diarrhea, Chronic kidney disease, Positive troponin, Atrial fibrillation, CAD/PCI Plan: Syncope, could be secondary to dehydration. IV fluids. Echocardiogram. Chronic diarrhea, Chronic kidney disease, acute on chronic kidney injury. IV fluids. Hyperkalemia. Defer to the primary team. Positive troponin, working diagnosis is non-STEMI in a patient with previous history of PCI. we previously delayed coronary angiography to optimize renal function. Improved kidney function. However I did discuss with the patient and family about the risk and complication of coronary angiography including worsening renal function and even a small chance of dialysis.we will proceed with coronary angiography today. Atrial fibrillation, likely new onset. CAD/PCI, continue dual antiplatelet therapy. Thank you for your consultation. Please call me if you have any questions. Lorraine Mcdonnell MD, FACP, FACC, FSCAI, FHRS, CCDS Interventional Cardiology Cardiac Electrophysiology Vascular Medicine and Endovascular Interventions Focused Exam Lactate Level 02/02/19 14:20: Lactic Acid Level 4.70*H 02/02/19 16:20: Lactic Acid Level 3.17*H Clinical Quality Measures Stroke: Date of last known well: Feb 02, 2019 Time of last known well: 13:00 Symptoms onset unknown: Bruno Rosen MD Feb 04, 2019 10:18
[2019-02-04] MEDS ORDERED: MIDAZOLAM 5 MG/5 ML (VERSED) VIAL ONE (10:20)
[2019-02-04] MEDS ORDERED: fentaNYL INJECTION 100 MCG/2 ML AMP ONE (10:21)
[2019-02-04] MEDS ORDERED: HEParin 1000 UNIT/ML (10ML VIAL) FOR BOLUS ONE (10:47)
[2019-02-04] MEDS ORDERED: ADENOSINE 3 MG/1 ML (ADENOSCAN) 30ML VIAL IV ONE ×2 (11:18→11:43)
--- NOTE | 2019-02-04 11:59 | Cardiac Procedure Note-CS/ASA ---
Pre-Procedure Note Pre-Op Procedure Note H&P Reviewed The H&P was reviewed, patient examined and no changes noted. Date H&P Reviewed: Feb 04, 2019 Time H&P Reviewed: 10:00 Conscious Sedation Pre-Proced Time 10:00 ASA Score 3 For ASA 3 and 4: Consider anesthesia and medical clearance. Also, for patients with a history of failed moderate sedation consider anesthesia. Airway Lungs Heart ASA score ASA 1: a normal healthy patient ASA 2: a patient with a mild systemic disease (mid diabetes, controlled hypertension, obesity ASA 3: a patient with a severe systemic disease that limits activity (angina, COPD, prior Myocardial infarction) ASA 4: a patient with an incapacitating disease that is a constant threat to life (CHF, renal failure) ASA 5: a moribund patient not expected to survive 24 hrs. (ruptured aneurysm) ASA 6: a declared brain- patient whose organs are being harvested. For emergent operations, add the letter E after the classification Mallampati Classification Grade 1 Sedation Plan Analgesia, Amnesia, Plan communicated to team members, Discussed options with patient/fam, Discussed risks with patient/fam The patient is an appropriate candidate to undergo the planned procedure, sedation, and anesthesia. The patient immediately re-assessed prior to indication. Bruno WALLER MD Feb 04, 2019 11:59
[2019-02-04] MEDS ORDERED: PATIENT MAY USE OWN MEDS, ALL PO SCH (12:00)
--- NOTE | 2019-02-04 12:07 | Coronary Angiography Report ---
Coronary Angiography Report DATE OF PROCEDURE: 02/04/19 INDICATION: non-STEMI. PREOPERATIVE DIAGNOSIS: non-STEMI. POSTOPERATIVE DIAGNOSIS: type II myocardial infarction. Moderate multivessel disease. HISTORY: this is a 78-year-old lady with previous history of multiple PCI who presented with syncope which was likely due to dehydration. She was found to be in acute kidney injury. Positive cardiac enzymes. Therefore, the patient was scheduled for coronary angiography. PROCEDURES PERFORMED: 1.Coronary angiography. 2.Left heart catheterization. 3. FFR to the LAD. 4. FFR to left circumflex artery. COMPLICATIONS: None. SPECIMENS: None. ESTIMATED BLOOD LOSS: 10 mL ANESTHESIA: Conscious sedation ANTICOAGULATION: IV heparin CONTRAST: 55 ml. FLUOROSCOPY: 8.7 minutes. FLOUROSCOPY DOSE: 683 mgy. PROCEDURE DETAILS: The patient is a 78 female and was brought to the greens lab[facility] after informed consent was taken. All the risks and complications were explained in detail; this included the risk of bleeding, vascular damage, stroke, HI and even . The patient was draped and prepped in the usual sterile fashion. Access was gained in the right femoral artery with a 6 [place] sheath. Coronary angiography and left heart catheterization was performed with a JR4 and a JL4 catheter. FINDINGS: 1.Left main: patent. 2.LAD: moderate ostial stenosis with calcification. Moderate in-stent stenosis in the proximal LAD stent. Mild diffuse disease distally. first diagonal artery has stents which are occluded. 3.Left circumflex artery: numerous stents in the left circumflex artery with moderate stenosis. Small distal vessel. 4.RCA: mild diffuse disease with mild in-stent restenosis. 5.Left heart catheterization: LV pressure 182/6 mmHg. LVEDP 18 mmHg. Aortic pressure 123/64 mmHg. Normal LV function with no wall motion abnormalities. Gradient noted across the aortic valve suggesting aortic stenosis. Recommendations: 1. FFR to the LAD is recommended. 2. FFR to the left circumflex artery is recommended. FFR details: EBU 3.5 guide catheter, FFR guidewire and IV heparin for anticoagulation. We crossed the lesion in the LAD with a FFR wire. The tip of the wire was placed in the distal LAD. Baseline FFR was 0.92. Adenosine was started at 140 g per KG per minute for 2 minutes. Lowest FFR was 0.83 which is acceptable therefore PCI was deferred. The wire was taken out and post-angiogram did not show any vascular complication. We took the same wire and crossed the lesion in the distal left circumflex artery stent which had the most moderate to severe looking stenosis. Baseline FFR was 0.96. Adenosine was started at 140 g per KG per minute for 2 minutes. Lowest FFR was 0.91, which is normal therefore PCI was deferred. The wire was taken out and post-angiogram did not show any vascular complication. Right femoral artery was closed with a minx device. Patient tolerated procedure well and did not have any complications. CONCLUSIONS: type II myocardial infarction. Moderate multivessel disease. Continue aggressive CAD management. Continue IV fluids and check BUN/creatinine in the morning. Lorraine Mcdonnell MD, FACP, FACC, [facility] Interventional Cardiology Bruno MCDONNELL MD Feb 04, 2019 12:07
--- NOTE | 2019-02-04 13:20 | Discharge Inst-Simple/Standard ---
Discharge Inst-Standard Discharge Medications New, Converted or Re-Newed RX: Transmitted to Pharmacy Patient Instructions/Follow Up Plan of Care/Instructions/FU: Please continue to take your medications as written and follow up with your doctors as scheduled. Activity as Tolerated: Yes Discharge Diet: No Restrictions Return to The Hospital For: Shortness of breath, chest pain, if you feel you are getting worse. ANALIA WARD MD Feb 04, 2019 13:20
--- NOTE | 2019-02-04 16:00 | NUR ---
patient administered insulin from pump. 3 units per ss
--- NOTE | 2019-02-04 21:22 | NUR ---
Pt dosed self with OWN INSULIN PUMP10 units of insulin at this time for a blood sugar of 207.
[2019-02-05] VITALS: BP 110/54
[2019-02-05 04:00] VITALS: BP 130/61
[2019-02-05 05:03] LABS: MEAN PLATELET VOLUME 10.8 FL (7.4-10.4); RED CELL DISTRIBUTION WIDTH 18.2 % (10.0-14.5); WHITE BLOOD COUNT 7.4 10^3/uL (4.3-11.0)
[2019-02-05 05:20] LABS: POTASSIUM 3.9 MMOL/L (3.6-5.0)
[2019-02-05 05:21] LABS: CALCIUM 8.8 MG/DL (8.5-10.1); CREATININE SERUM 1.62 MG/DL (0.60-1.30)
[2019-02-05] MEDS: inSUlin ASPART (NovoLOG) 1 UNIT/0.01 ML (CHARGE PER UNIT) SC SCH ×2 (06:36→12:00)
[2019-02-05] MEDS: NS IV 1000 ML 1,000 ML IV SCH (06:36)
[2019-02-05] MEDS: PANTOPRAZOLE 40 MG (PROTONIX) TAB PO SCH (06:36)
[2019-02-05 08:00] VITALS: BP 119/75
--- NOTE | 2019-02-05 09:14 | Discharge Summary ---
Diagnosis/Chief Complaint Date of Admission Feb 02, 2019 at 16:50 Date of Discharge Discharge Date: Feb 05, 2019 Admission Diagnosis NSTEMI Discharge Diagnosis (1) Chronic kidney disease, stage IV (severe) Status: Acute (2) SSS (sick sinus syndrome) Status: Chronic (3) Hypertension Status: Acute (4) IDDM (insulin dependent diabetes mellitus) Status: Acute (5) Coronary artery disease Status: Acute (6) Diabetic neuropathy Status: Acute (7) Elevated troponin I level Status: Acute (8) Dehydration Status: Acute Discharge Summary Procedures/Consulations Dr Mcdonnell- Cardiology Discharge Physical Exam Allergies: Coded Allergies: sulfamethoxazole (Verified Allergy, Intermediate, 10/05/15) tramadol (Verified Allergy, Intermediate, 10/05/15) trimethoprim (Verified Allergy, Intermediate, 10/05/15) Penicillins (Verified Allergy, Unknown, 10/05/15) codeine (Verified Allergy, Unknown, CAN TAKE MORPHINE, 10/05/15) hydrocodone (Verified Allergy, Unknown, 10/05/15) amiodarone (Verified Adverse Reaction, Mild, NAUSEA, dizziness, 02/01/16) Vitals & I&Os Vital Signs Date Time Temp Pulse Resp B/P (MAP) Pulse Ox O2 Delivery O2 Flow Rate FiO2 02/05/19 08:00 97.0 64 20 119/75 (90) 97 Room Air General Appearance: No Apparent Distress, Chronically ill Respiratory: Lungs Clear, No Respiratory Distress Cardiovascular: Regular Rate, Rhythm, No Murmur Hospital Course patient is a [id number] female with a past medical history of coronary a rtery disease, insulin dependent diabetes type II, chronic kidney disease who presented to the mergency department for evaluation of arrhea. She was found to have an elevated troponin and an increase in her creatinine from baseline. She was admitted for further evaluation of elevated troponin and concern for N STEMI. She was given IV fluid resuscitation for acute kidney injury and ultimately underwent cardiac cath which revealed moderate disease but no stents were deployed. She stayed 1 more night to continue IV fluids.. Creatinine remained at her near 1.6 following cardiac c. She was discharged home in stable condition. Of note her was admitted to our ICU during her stay. Labs (last 24 hrs) Laboratory Tests 02/04/19 12:36: Glucometer 157H 02/04/19 15:39: Glucometer 187H 02/04/19 21:08: Glucometer 207H 02/05/19 03:57: White Blood Count 7.4, Red Blood Count 4.54, Hemoglobin 12.0, Hematocrit 38, Mean Corpuscular Volume 83, Mean Corpuscular Hemoglobin 26, Mean Corpuscular Hemoglobin Concent 32, Red Cell Distribution Width 18.2H, Platelet Count 158, Mean Platelet Volume 10.8H, Sodium Level 137, Potassium Level 3.9, Chloride Level 107, Carbon Dioxide Level 19L, Anion Gap 11, Blood Urea Nitrogen 30H, Creatinine 1.62H, Estimat Glomerular Filtration Rate 31, BUN/Creatinine Ratio 19, Glucose Level 111H, Calcium Level 8.8 Microbiology 02/02/19 Blood Culture - Preliminary, Resulted No growth 02/02/19 Urine Culture - Final, Complete Escherichia coli Patient resulted labs reviewed. Pending Labs Laboratory Tests 02/05/19 03:57: White Blood Count 7.4, Red Blood Count 4.54, Hemoglobin 12.0, Hematocrit 38, Mean Corpuscular Volume 83, Mean Corpuscular Hemoglobin 26, Mean Corpuscular Hemoglobin Concent 32, Red Cell Distribution Width 18.2, Platelet Count 158, Mean Platelet Volume 10.8, Sodium Level 137, Potassium Level 3.9, Chloride Level 107, Carbon Dioxide Level 19, Anion Gap 11, Blood Urea Nitrogen 30, Creatinine 1.62, Estimat Glomerular Filtration Rate 31, BUN/Creatinine Ratio 19, Glucose Level 111, Calcium Level 8.8 Imaging: Reviewed Imaging Report Discussion & Recommendations Discharge Planning: >30 minutes discharge planning Discharge Home Medications: Active Scripts Active Reported Torsemide 100 Mg Tablet 100 Mg PO DAILY Vitamin D3 (Cholecalciferol (Vitamin D3)) 5,000 Unit Capsule 5,000 Unit PO DAILY Premarin (Estrogens Conjugated) 30 Gm Cr VG MOWEFR Rosuvastatin Calcium 20 Mg Tablet 20 Mg PO HS Metolazone 2.5 Mg Tablet 2.5 Mg PO MOTH Victoza 2-Luis Enrique (Liraglutide) 0.6 Mg/0.1 Ml Pen.injctr 1.2 Mg SC HS Allopurinol 100 Mg Tablet 100 Mg PO MOTH Nitroglycerin 0.4 Mg Tab.subl 0.4 Mg SL UD PRN Potassium Chloride 20 Meq Tab.er.prt 10 Meq PO BID TAKES 1/2 (10MEQ) TABLETS Diazepam 5 Mg Tablet 5 Mg PO DAILY PRN Cyanocobalamin Injection (Cyanocobalamin) 1,000 Mcg/Ml Inj 1,000 Mcg IJ MONTHLY Metoprolol Succinate 25 Mg Tab.er.24h 12.5 Mg PO DAILY TAKES 1/2 (25MG) TABLET Pantoprazole Sodium 40 Mg Tablet.dr 40 Mg PO HS Clopidogrel (Clopidogrel Bisulfate) 75 Mg Tablet 75 Mg PO DAILY Novolog (Insulin Aspart) 100 Unit/1 Ml Susp PER INSULIN PUMP Instructions to patient/family Please see electronic discharge instructions given to patient. Clinical Quality Measures DVT/VTE Risk/Contraindication: Risk Factor Score Per Nursin RFS Level Per Nursing on Admit: 4+=Very High Stroke: Date of last known well: Feb 02, 2019 Time of last known well: 13:00 Symptoms onset unknown: ANALIA Fischer MD Feb 05, 2019 09:14
[2019-02-05] MEDS: TICAGRELOR 90 MG TABLET (BRILINTA) PO SCH (09:35)
--- NOTE | 2019-02-05 11:24 | Cardiology Progress Note ---
Cardiology SOAP Progress Note Subjective: No significant cardiac complaints. Objective: I&O/Vital Signs 02/05/19 02/05/19 02/05/19 02/05/19 04:00 07:00 07:30 08:00 Temp 97.8 97.0 Pulse 65 65 60 64 Resp 18 20 B/P (MAP) 130/61 (84) 119/75 (90) Pulse Ox 94 97 O2 Delivery Room Air Room Air 02/05/19 02/05/19 09:00 12:40 Pulse 64 Resp 20 B/P (MAP) 119/75 Pulse Ox 97 O2 Delivery Room Air Room Air 02/05/19 00:00 Intake Total 930 ml Output Total 1 ml Balance 929 ml Weight (Pounds): 207 Weight (Ounces): 9.0 Weight (Calculated Kilograms): 94.905721 Constitutional: appears stated age, AAO x 3; No apparent distress; well- developed, well-nourished Respiratory: No accessory muscle use, No respiratory distress, No chest tender, No chest expansion is symmetric; chest is bilaterally symmetric; No lungs clear to percussion; lungs clear to auscultation; No crackles, No rhonchi, No rales, No stridor, No wheezing, No pleural rub, No other Cardiovascular: irregularly irregular; No extra beats, No parasternal heave is noted, No JVD, No edema, No bradycardia, No tachycardia, No point of maximal impulse, No cardiac thrills are palpable; S1 and S2; No gallop/S3, No gallop/S4, No diastolic murmur, No systolic murmur, No friction rub, No click, No other Gastrointestional: No tender, No soft, No round, No distended, No pulsatile mass, No organomegaly, No guarding, No rebound, No tenderness, No hernia, No mass, No audible bowel sounds, No abnormal bowel sounds, No abdominal bruits, No spleenomegaly, No other Extremities: No normal range of motion, No non-tender, No normal inspection, No pedal edema, No calf tenderness, No normal capillary refill, No pelvis stable, No calf tenderness, No inflammation, No pedal edema, No slow capillary refill, No swelling, No other, No abrasion, No clubbing, No cyanosis, No ecchymosis, No laceration, No no lower extremity edema bilateral, No significant edema, No tenderness, No wound Neurologic/Psychiatric: no motor/sensory deficits, alert, normal mood/affect, oriented x 3, power is 5/5 both on sides Skin: No normal color, No warm/dry, No cyanosis, No cool, No diaphoresis, No damp, No ecchymosis, No jaundice, No mottled, No pallor, No rash, No tattoos/piercings, No ulcerations, No rash on exposed areas, No ulcerations on exposed areas, No other Results/Procedures: Labs Laboratory Tests 02/04/19 15:39: Glucometer 187H 02/04/19 21:08: Glucometer 207H 02/05/19 03:57: White Blood Count 7.4, Red Blood Count 4.54, Hemoglobin 12.0, Hematocrit 38, Mean Corpuscular Volume 83, Mean Corpuscular Hemoglobin 26, Mean Corpuscular Hemoglobin Concent 32, Red Cell Distribution Width 18.2H, Platelet Count 158, Mean Platelet Volume 10.8H, Sodium Level 137, Potassium Level 3.9, Chloride Level 107, Carbon Dioxide Level 19L, Anion Gap 11, Blood Urea Nitrogen 30H, Creatinine 1.62H, Estimat Glomerular Filtration Rate 31, BUN/Creatinine Ratio 19, Glucose Level 111H, Calcium Level 8.8 02/05/19 11:19: Glucometer 145H Microbiology 02/02/19 Blood Culture - Preliminary, Resulted No growth 02/02/19 Urine Culture - Final, Complete Escherichia coli A/P: Assessment/Dx: Syncope, Chronic diarrhea, Chronic kidney disease, Positive troponin, Atrial fibrillation, CAD/PCI Plan: Syncope, could be secondary to dehydration. IV fluids. Echocardiogram. Chronic diarrhea, Chronic kidney disease, acute on chronic kidney injury. IV fluids. Hyperkalemia. Patient will like to switch nephrology to [facility]. Appropriate referral will be done. Positive troponin, working diagnosis is non-STEMI in a patient with previous history of PCI. we previously delayed coronary angiography to optimize renal function. Improved kidney function. Coronary angiography showed at least moderate multivessel disease. FFR done to the LAD and left circumflex artery was within acceptable limits therefore PCI was not done. Likely type II my ocardial infarction from syncope, atrial fibrillation. Atrial fibrillation, likely new onset. Start Eliquis 5 mg twice a day. Follow- up with Dr. Bauman. CAD/PCI, continue Plavix. Thank you for your consultation. Please call me if you have any questions. Lorraine Mcdonnell MD, FACP, FACC, FSCAI, FHRS, CCDS Interventional Cardiology Cardiac Electrophysiology Vascular Medicine and Endovascular Interventions Focused Exam Lactate Level 02/02/19 16:20: Lactic Acid Level 3.17*H Clinical Quality Measures Stroke: Date of last known well: Feb 02, 2019 Time of last known well: 13:00 Symptoms onset unknown: Bruno Rosen MD Feb 05, 2019 11:24
[2019-02-05] MEDS ORDERED: APIX5TAB PO (11:34)
[2019-02-05 12:40] VITALS: BP 119/75
== END 2019-02-05 12:40 | disposition home or self-care (01) | DRG 682 ==
LOC: EDUNIT# 13:46 → ER 13:47 → ICU 16:50 → 4TH 02-04 19:35
PROVIDERS: ADMIT Family Medicine; ATTEND Family Medicine
PROC: 4A023N7 Measurement of Cardiac Sampling and Pressure, Left Heart, Percutaneous Approach (ICD-10-PCS; principal; 2019-02-04)
PROC: B2111ZZ Fluoroscopy of Multiple Coronary Arteries using Low Osmolar Contrast (ICD-10-PCS; 2019-02-04)
PROC: 4A033BC Measurement of Arterial Pressure, Coronary, Percutaneous Approach (ICD-10-PCS; 2019-02-04)
DX: N17.9 Acute kidney failure, unspecified (principal); I25.10 Atherosclerotic heart disease of native coronary artery without angina pectoris; I21.A1 Myocardial infarction type 2; T82.855A Stenosis of coronary artery stent, initial encounter; E11.40 Type 2 diabetes mellitus with diabetic neuropathy, unspecified; E11.21 Type 2 diabetes mellitus with diabetic nephropathy; E11.51 Type 2 diabetes mellitus with diabetic peripheral angiopathy without gangrene; E86.0 Dehydration; I48.91 Unspecified atrial fibrillation; I12.9 Hypertensive chronic kidney disease with stage 1 through stage 4 chronic kidney disease, or unspecified chronic kidney disease; N18.4 Chronic kidney disease, stage 4 (severe); A08.4 Viral intestinal infection, unspecified; I49.5 Sick sinus syndrome; E87.5 Hyperkalemia; E78.00 Pure hypercholesterolemia, unspecified; I25.2 Old myocardial infarction; I08.2 Rheumatic disorders of both aortic and tricuspid valves; Z79.4 Long term (current) use of insulin; Z95.5 Presence of coronary angioplasty implant and graft; Z86.73 Personal history of transient ischemic attack (TIA), and cerebral infarction without residual deficits; Z95.0 Presence of cardiac pacemaker; Z85.3 Personal history of malignant neoplasm of breast; Z92.3 Personal history of irradiation; Z79.02 Long term (current) use of antithrombotics/antiplatelets; Z87.440 Personal history of urinary (tract) infections; Z88.2 Allergy status to sulfonamides; Z88.0 Allergy status to penicillin; Z88.5 Allergy status to narcotic agent; Z88.6 Allergy status to analgesic agent
CPT/HCPCS: 36415; 70450; 71045; 80048; 80053; 81000; 82962; 83605; 83735; 83880; 84132; 84484; 85025; 85027; 85610; 85730; 87040; 87077; 87088; 87186; 93005; 93306; 93458; 94760; 96361; 96365; 96375

== ENCOUNTER → 2019-02-23 | Outpatient (CLI) | payer MEDICARE, MEDICAID ==
[~2019-02-23] MED LIST changes: +ALLO100T PO; +APIX5TAB PO; +CHOL5000 PO; +EST30C VG; +LIRA0.6P SC; +METO2.5T PO; +NITR0.4T42 SL; +POTA20TA15 PO; +ROSU20TA32 PO
--- NOTE | 2019-02-23 14:14 | Diagnostic Imaging Report ---
Indication: Cough PA and lateral chest There is a dual-chamber pacemaker. Heart size and pulmonary vascularity are normal. Lungs are clear. There are no effusions or pneumothoraces. Impression: Negative chest. Dictated by: Dictated on workstation # [id number]
== END ==
LOC: RAD 12:45
PROVIDERS: ATTEND Internal Medicine
DX: R05 Cough (principal); Z95.0 Presence of cardiac pacemaker
CPT/HCPCS: 71046

== ENCOUNTER 2019-03-02 15:42 | Inpatient (IN) | payer MEDICARE, MEDICAID ==
[~2019-03-02] VITALS: Ht 167.6 cm; Wt 97.5 kg
[2019-03-02] MEDS ORDERED: NS IV 1000 ML 1,000 ML IV SCH ×2 (16:12)
[2019-03-02] MEDS ORDERED: CEFEPIME INJECTION 1,000 MG in WATER (STERILE) FOR INJECTION 10 ML IV ONE (16:15)
[2019-03-02] MEDS ORDERED: ONDANSETRON 4 MG/2 ML (SDV) Z0FRAN IV PRN ×2 (16:15→19:30)
--- NOTE | 2019-03-02 16:21 | ED General ---
General Chief Complaint: General Problems/Pain Stated Complaint: DIZZY,VOMITING Nursing Triage Note: PATIENT STATES THAT SHE HAS BEEN FEELING POORLY SINCE THURSDAY. N/V/D, DIZZINESS, TINGLING, LOSS OF VISION IN LEFT EYE. Nursing Sepsis Screen: Possible Sepsis Risk Source of Information: Patient, Family (daughter and granddaughter) Exam Limitations: No Limitations History of Present Illness Date Seen by Provider: Mar 02, 2019 Time Seen by Provider: 15:58 Initial Comments The patient presents to ER by private conveyance from her primary care doctor's office to Dr. Robertson with chief complaint of one week progressively worsening chills, sweats, malaise, body aches, diarrhea and most recently nausea and vomiting. She also lost vision gradually over a couple hours and her left eye last night. She went to her primary care doctor's office and he referred her directly to Dr. Hurtado's optometry office and she was found to have blood in her posterior chamber. She has diabetes and insulin pump. Her glucometer been broken for the past several days so she's not been checking her blood sugar. She denies any rash. Since last night she also started experiencing some substernal and epigastric chest pain is not reproducible on direct palpation or inspiration. She has a history of coronary disease. Around a month ago the patient had a laser treatment for a left eye blood vessel by Dr. Patino, ophthalmology at [place], [place]. She did not make her follow-up appointment because of the recent passing of her . Allergies and Home Medications Allergies Coded Allergies: sulfamethoxazole (Verified Allergy, Intermediate, 10/05/15) tramadol (Verified Allergy, Intermediate, 10/05/15) trimethoprim (Verified Allergy, Intermediate, 10/05/15) Penicillins (Verified Allergy, Unknown, 10/05/15) codeine (Verified Allergy, Unknown, CAN TAKE MORPHINE, 10/05/15) hydrocodone (Verified Allergy, Unknown, 10/05/15) amiodarone (Verified Adverse Reaction, Mild, NAUSEA, dizziness, 02/01/16) Home Medications Apixaban 2.5 Mg Tablet, 2.5 MG PO BID Prescribed by: ANALIA MORRIS on 03/04/19 1135 Cephalexin 500 Mg Capsule, 500 MG PO BID Prescribed by: ANALIA MORRIS on 03/04/19 1135 Cholecalciferol (Vitamin D3) 5,000 Unit Capsule, 5,000 UNIT PO DAILY, (Reported) Clopidogrel Bisulfate 75 Mg Tablet, 75 MG PO DAILY, (Reported) Cyanocobalamin 1,000 Mcg/Ml Inj, 1,000 MCG IJ MONTHLY, (Reported) Diazepam 5 Mg Tablet, 5 MG PO DAILY PRN for ANXIETY, (Reported) Estrogens Conjugated 30 Gm Cr, VG MoWeFr, (Reported) Insulin Aspart 100 Unit/1 Ml Susp, PER INSULIN PUMP, (Reported) Liraglutide 0.6 Mg/0.1 Ml Pen.injctr, 1.8 MG SC HS, (Reported) Metolazone 2.5 Mg Tablet, 2.5 MG PO MoTh, (Reported) Metoprolol Succinate 25 Mg Tab.er.24h, 12.5 MG PO DAILY, (Reported) TAKES 1/2 (25MG) TABLET Nitroglycerin 0.4 Mg Tab.subl, 0.4 MG SL UD PRN for CHEST PAIN, (Reported) Pantoprazole Sodium 40 Mg Tablet.dr, 40 MG PO HS, (Reported) Potassium Chloride 20 Meq Tab.er.prt, 10 MEQ PO BID, (Reported) TAKES 1/2 (10MEQ) TABLETS Rosuvastatin Calcium 20 Mg Tablet, 20 MG PO HS, (Reported) Torsemide 100 Mg Tablet, 100 MG PO DAILY, (Reported) Patient Home Medication List Home Medication List Reviewed: Yes Review of Systems Review of Systems Constitutional: chills, diaphoresis, malaise, weakness EENTM: No ear discharge, No ear pain Respiratory: No cough, No short of breath Cardiovascular: chest pain, edema, Hx of Intervention; No syncope; vascular heart diseas Gastrointestinal: abdominal pain (epigastric), diarrhea, nausea, vomiting Genitourinary: No discharge, No dysuria Musculoskeletal: No back pain, No joint pain Past Tcjjgok-Qxiqzd-Lafxeu Hx Patient Social History Alcohol Use: Denies Use Recreational Drug Use: No Smoking Status: Never a Smoker 2nd Hand Smoke Exposure: No Recent Foreign Travel: No Contact w/Someone Who Travel: No Recent Infectious Disease Expo: No Recent Hopitalizations: No Immunizations Up To Date Tetanus Booster (TDap): Less than 5yrs Date of Pneumonia Vaccine: Apr 23, 2017 Date of Influenza Vaccine: May 20, 2018 Seasonal Allergies Seasonal Allergies: No Past Medical History Surgeries: Yes (PACEMAKER, CAROTID ARTERY, HEART CATH-STENTS /ANGIOPLASTY) Cardiac, Coronary Stent, Gallbladder, Hysterectomy, Orthopedic, Pacemaker, Vascu lar Surgery Respiratory: Yes Sleep Apnea Currently Using CPAP: No Currently Using BIPAP: No Cardiac: Yes (PACEMAKER, CHF, STENTS X10) Atrial Fibrillation, Chronic Edema/Swelling, Coronary Artery Disease, Heart Attack, Heart Murmur, High Cholesterol, Hypertension, Peripheral Vascular Neurological: Yes (TIA AFTER STENT IN JUNE) Neuropathy, TIA 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 ) Endocrine: Yes (INSULIN PUMP, 3 THYROID NODULES) Diabetes, Insulin dep Cataract Loss of Vision: Right Hearing Impairment: Deaf Cancer: Yes (BREAST CA 2010) Breast Did You Recieve Any Treatments: Yes What Type of Treatment Did You: Radiation Psychosocial: No Integumentary: Yes (DIABETIC FOOT ULCER ON LEFT--PT STATES IS NOW HEALED. ) Blood Disorders: No Adverse Reaction/Blood Tranf: No Family Medical History Cardiovascular disease 19 MOTHER G8 SISTER Completed stroke 19 FATHER G8 SISTER Diabetes mellitus 19 FATHER G8 SISTER G8 SISTER FH: cancer G8 SISTER G8 SISTER Myocardial infarction G8 BROTHER (65 YEARS OLD) Physical Exam-Suspected Sepsis Physical Exam Vital Signs Vital Signs - First Documented 03/02/19 03/02/19 15:52 16:30 Temp 96.7 Pulse 111 Resp 28 B/P (MAP) 139/90 (106) Pulse Ox 98 O2 Delivery Nasal Cannula O2 Flow Rate 5.00 Capillary Refill : Less Than 3 Seconds Blood Pressure Mean: 106 Height, Weight, BMI Height: 5'5.00" Weight: 207lbs. 0oz. 93.515431yc; 33.5 BMI Method:Stated General Appearance: Mild Distress, Other Eyes: Right Eye Normal Inspection, Right Eye PERRL; Left Eye Other (funduscopic exam of the right eye reveals normal-appearing vessels and left eye reveals dark intelligible posterior chamber possible consistent with blood.); Bilateral Eye EOMI HEENT: PERRL/EOMI, TMs Normal, Normal ENT Inspection, Pharynx Normal, Moist Mucous Membranes Neck: Full Range of Motion, Normal Inspection Respiratory: Lungs Clear, Normal Breath Sounds, No Accessory Muscle Use, No Respiratory Distress Cardiovascular: Regular Rate, Rhythm, No Edema, Normal Peripheral Pulses, Tachycardia Gastrointestinal: Normal Bowel Sounds, Soft, Tenderness (epigastric region) Extremity: Normal Capillary Refill, Normal Inspection, Non Tender Neurologic/Psychiatric: Alert, Oriented x3 Skin: normal color, warm/dry Focused Exam Sepsis Stage: Severe Sepsis Possible Source: Genitouriary Lactate Level 03/03/19 08:00: Lactic Acid Level 1.67 03/03/19 12:15: Lactic Acid Level 2.18*H Time of Focused Exam: 18:00 Respiratory: Chest Non Tender, Lungs Clear, Normal Breath Sounds, No Accessory Muscle Use, No Respiratory Distress Cardiovascular: Regular Rate, Rhythm, Normal Peripheral Pulses Capillary Refill: Less Than 3 Seconds Peripheral Pulses: 2+ Dorsalis Pedis (R), 2+ Left Dors-Pedis (L) Skin: normal color, warm/dry Lactic Acid Level Within 3hrs of presentation: Admin fluids, Admin 30ml/kg IBW due to BMI>30, Admin ABX, Blood cultures prior to ABX's, Focus exam, Lactate level Progress/Results/Core Measures Suspected Sepsis Recent Fever Within 48 Hours: No Infection Criteria Present: Suspected New Infection New/Unexplained Altered Menta: No Sepsis Screen: Possible Sepsis Risk SIRS Temperature:96.7 Pulse: 111 Respiratory Rate: 28 Blood Pressure 139 /90 Mean: 106 03/03/19 08:00: Lactic Acid Level 1.67 03/03/19 12:15: Lactic Acid Level 2.18*H Results/Orders Lab Results Laboratory Tests Test 03/04/19 06:35 03/04/19 11:06 Range/Units Glucometer 152 H 161 H 70-110 MG/DL My Orders Medications Given in ED Vital Signs/I&O Capillary Refill : Less Than 3 Seconds Blood Pressure Mean: 106 Progress Note #1: Time: 16:23 Progress Note Accu-Chek, EKG and septic workup. Looking for emergent life-threatening reasons for her nausea such as coronary syndrome. If not then we will treat the eye by looking for transfer to the ophthalmologic surgeon most likely in [place]. Emmy pected maybe between her vomiting and long-standing history of diabetes couple with recently starting Eliquis she has had a hemorrhage in her left retina. Progress Note #2: Time: 16:49 Progress Note 1630: Dr. Delgadillo, IM at [facility]. Dr Patino, ophthalmology at [facility]. Discussed the case and she would like to know the visual acuity and tonometry of the affected eye. We will call her back. Visual acuity 20/20 right eye and she can barely see light now on the left eye which is a slight improvement from us morning when she could not even see bright lights for the left eye. Tonometry of the left eye is 27 and 28. Progress Note #3: Time: 17:21 Progress Note Discussed with tonometry and presentation with Dr. Patino, ophthalmology. She says is most likely a retinal hemorrhage in which case the eye needs to clear up before they can do anything about cauterizing the vessel. If it is a retinal hemorrhage the patient needs to be clear of her sepsis and infection before any surgeon will operate on her. There is no reason the transfer to [place] at this time so we will plan to keep the patient local and treat her sepsis. As soon as the patient is out of the hospital she is to follow-up outpatient with ophthalmology. Discussed this plan with patient and family and they are all in agreement. The patient's receiving 2 L of IV fluids and because the lactate was above 4.0 meats severe sepsis criteria requiring a total of 2200 cc based on an adjusted body weight 72 kg since her BMI is above 30. Progress Note #4: Time: 17:57 Progress Note Patient's blood pressure cuff was repositioned and her blood pressures been pretty good in 130/67 range. Her daughter notes that her blood pressure usually runs a little on the low side around 100 systolic. The patient is received carl ost all of her initial 30 mL/kg bolus. A second peripheral IV was placed. ECG Initial ECG Impression Date: Mar 02, 2019 Initial ECG Impression Time: 16:21 Initial ECG Rate: 115 Initial ECG Intervals: QT (526) Initial ECG Impression: Nonspecific Changes Comment Potential rhythm, tachycardia without significant ST elevation or depression. Diagnostic Imaging Diagonstic Imaging: Xray Plain Films/CT/US/NM/MRI: chest (1v) Comments NAME: ANUP SUH MED REC#: [id number] PT STATUS: REG ER : [id number] PHYSICIAN: NIGHAT HASSAN MD ADMIT DATE: 03/02/19/ER Signed Date of Exam:03/02/19 CHEST 1 VIEW, AP/PA ONLY Indication: Nausea vomiting diarrhea and dizziness Portable chest 4:58 PM There is a left subclavian dual-chamber pacemaker. Heart size and pulmonary vascularity are normal. Lungs are clear. There are no effusions or pneumothoraces. Impression: No acute abnormalities in the chest Dictated by: Dictated on workstation # [id number] Dict: 03/02/191701 Trans: 03/02/191702 [id number] Interpreted by: MOIRA ZAVALA MD Electronically signed by: MOIRA ZAVALA MD 03/02/191702 Reviewed: Reviewed by Me Departure Communication (Admissions) Time/Spoke to Admitting Phy: 17:10 Discussed the case with Dr. Morris and she agrees take patient to the ICU. ICU bed will be available after 1900. She is okay with not doing a central line as the map is 75 mmHg and we will observe the patient the ER for the next hour and a half and if needed will started otherwise he can be started upstairs. It would be advisable not to prematurely start a central line since the patient is on Eliquis already with problems of bleeding. Time/Spoke to Consulting Phy: 17:40 Discussed the case with pulmonology Dr. Topete and he agrees to consult on the patient. Impression Primary Impression: Gastroenteritis/colitis, infectious Additional Impressions: Dehydration Acute kidney injury Retinal hemorrhage, left eye Chest pain Qualified Codes: R07.9 - Chest pain, unspecified Severe sepsis UTI (urinary tract infection) Qualified Codes: N30.00 - Acute cystitis without hematuria Disposition: ADMITTED INPATIENT Condition: Critical Admissions Decision to Admit Reason: Admit from ER (General) Decision to Admit/Date: Mar 02, 2019 Time/Decision to Admit Time: 17:00 Departure-Patient Inst. Referrals: JOE ROBERTSON MD (PCP/Family) Primary Care Physician Scripts Cephalexin (Keflex) 500 Mg Capsule 500 MG PO BID, #10 CAP Prov: ANALIA MORRIS MD 03/04/19 Apixaban (Eliquis) 2.5 Mg Tablet 2.5 MG PO BID, #60 TAB Prov: ANALIA MORRIS MD 03/04/19 NIGHAT HASSAN Mar 02, 2019 16:21
[2019-03-02 16:32] LABS: BASOPHILS % (AUTO) 0 % (0-10); EOSINOPHILS # (AUTO) 0.2 10^3/uL (0.0-0.3); EOSINOPHILS % (AUTO) 2 % (0-10); HEMATOCRIT 46 % (35-52); HEMOGLOBIN 15.1 G/DL (11.5-16.0); LYMPHOCYTES # (AUTO) 3.1 X 10^3 (1.0-4.0); LYMPHOCYTES % (AUTO) 30 % (12-44); MEAN CORPUSCULAR HEMOGLOBIN 27 PG (25-34); MEAN CORPUSCULAR HGB CONC 33 G/DL (32-36); MEAN CORPUSCULAR VOLUME 80 FL (80-99); MEAN PLATELET VOLUME 10.5 FL (7.4-10.4); MONOCYTES # (AUTO) 1.2 X 10^3 (0.0-1.0); MONOCYTES % (AUTO) 11 % (0-12); NEUTROPHILS # (AUTO) 6.2 X 10^3 (1.8-7.8); NEUTROPHILS % (AUTO) 58 % (42-75); PLATELET COUNT 243 10^3/uL (130-400); RED CELL DISTRIBUTION WIDTH 20.5 % (10.0-14.5); WHITE BLOOD COUNT 10.6 10^3/uL (4.3-11.0)
[2019-03-02] MEDS ORDERED: TETRACAINE 0.5% OPHTH SOLN 4 ML BTL (SINGLE DOSE ONLY) OU ONE (16:45)
[2019-03-02 16:48] LABS: INR 1.5 (0.8-1.4); PROTHROMBIN TIME PATIENT 18.8 SEC (12.2-14.7)
--- NOTE | 2019-03-02 16:50 | NUR ---
PT SCORES 20/20 ON HER VISUAL ACQUITY OF HER R EYE WITH HER CORRECTIVE GLASSES ON. PT UNABLE TO SEE EYE CHART WITH HER L EYE BUT REPORTS SHE CAN SEE SOME LIGHT.
[2019-03-02 16:53] LABS: ALBUMIN 3.9 GM/DL (3.2-4.5); BILIRUBIN,TOTAL 0.7 MG/DL (0.1-1.0); CALCIUM 10.2 MG/DL (8.5-10.1); CREATININE SERUM 2.48 MG/DL (0.60-1.30); POTASSIUM 4.3 MMOL/L (3.6-5.0); TOTAL PROTEIN 7.9 GM/DL (6.4-8.2)
--- NOTE | 2019-03-02 17:06 | Diagnostic Imaging Report ---
Indication: Nausea vomiting diarrhea and dizziness Portable chest 4:58 PM There is a left subclavian dual-chamber pacemaker. Heart size and pulmonary vascularity are normal. Lungs are clear. There are no effusions or pneumothoraces. Impression: No acute abnormalities in the chest Dictated by: Dictated on workstation # [id number]
[2019-03-02] MEDS ORDERED: NS IV 500 ML 500 ML IV ONE (17:23)
[2019-03-02 17:48] LABS: BILIRUBIN,URINE NEGATIVE (NEGATIVE); CLARITY,URINE CLEAR; COLOR,URINE YELLOW; GLUCOSE, URINE (UA) NEGATIVE (NEGATIVE); KETONES,URINE NEGATIVE (NEGATIVE); LEUKOCYTE ESTERASE ,URINE 2+ (NEGATIVE); NITRITE,URINE NEGATIVE (NEGATIVE); PH,URINE 7 (5-9); PROTEIN,URINE 2+ (NEGATIVE); UROBILINOGEN,URINE NORMAL (NORMAL)
[2019-03-02 17:59] LABS: WBC,URINE 25-50 /HPF
[2019-03-02 18:00] LABS: BACTERIA,URINE LARGE /HPF
[2019-03-02] MEDS ORDERED: NOREPINEPHRINE 4 MG in NS (IVPB) 250 ML IV SCH (18:00)
[2019-03-02] MEDS ORDERED: NS W/KCL 20 MEQ/L 1,000 ML IV SCH ×2 (18:00→19:15)
[2019-03-02 18:35] VITALS: BP 120/66
--- NOTE | 2019-03-02 18:55 | NUR ---
LAB CALLED TO REPORT A LACTIC ACID LEVEL OF 2.52, WHICH IS TRENDING DOWN FROM ORIGINAL LACTIC OF 4.9
[2019-03-02 19:00] VITALS: BP 116/63
[2019-03-02] MEDS ORDERED: DIAZEPAM 5 MG (VALIUM) TABLET PO PRN (19:15)
[2019-03-02] MEDS ORDERED: NS IV ONE (19:30)
[2019-03-02] MEDS ORDERED: ACETAMINOPHEN 500 MG TAB (TYLENOL) PO PRN (19:30)
[2019-03-02] MEDS ORDERED: cefTRIAXone 1,000 MG/SWFI 10 ML IV PUSH IV SCH ×2 (19:30)
[2019-03-02 20:00] VITALS: BP 154/70
[2019-03-02] MEDS: NS W/KCL 20 MEQ/L 1,000 ML IV SCH (20:00)
[2019-03-02] MEDS: NOREPINEPHRINE 4 MG in NS (IVPB) 250 ML IV SCH (20:06)
[2019-03-02] MEDS: NS IV 1000 ML 1,000 ML IV SCH (20:07)
[2019-03-02] MEDS: APIXABAN 2.5 MG (ELIQUIS) TABLET PO SCH (20:20)
[2019-03-02] MEDS: inSUlin ASPART (NovoLOG) 1 UNIT/0.01 ML (CHARGE PER UNIT) SC SCH (20:21)
[2019-03-02] MEDS ORDERED: ROSUVASTATIN 20 MG (CRESTOR) TABLET PO SCH (21:00)
[2019-03-02 22:00] VITALS: BP 118/67
[2019-03-02 23:00] VITALS: BP 116/63
[2019-03-03] VITALS (12 sets, daily range): BP systolic 91–131; BP diastolic 44–69
[2019-03-03] MEDS: NS IV 1000 ML 1,000 ML IV SCH (00:03)
[2019-03-03] MEDS: NOREPINEPHRINE 4 MG in NS (IVPB) 250 ML IV SCH (02:50)
[2019-03-03 04:05] LABS: BASOPHILS % (AUTO) 0 % (0-10); EOSINOPHILS # (AUTO) 0.2 10^3/uL (0.0-0.3); EOSINOPHILS % (AUTO) 2 % (0-10); HEMATOCRIT 39 % (35-52); HEMOGLOBIN 12.4 G/DL (11.5-16.0); LYMPHOCYTES # (AUTO) 2.3 X 10^3 (1.0-4.0); LYMPHOCYTES % (AUTO) 27 % (12-44); MEAN CORPUSCULAR HEMOGLOBIN 26 PG (25-34); MEAN CORPUSCULAR HGB CONC 32 G/DL (32-36); MEAN CORPUSCULAR VOLUME 82 FL (80-99); MEAN PLATELET VOLUME 9.7 FL (7.4-10.4); MONOCYTES # (AUTO) 0.8 X 10^3 (0.0-1.0); MONOCYTES % (AUTO) 10 % (0-12); NEUTROPHILS # (AUTO) 5.2 X 10^3 (1.8-7.8); NEUTROPHILS % (AUTO) 61 % (42-75); PLATELET COUNT 194 10^3/uL (130-400); RED CELL DISTRIBUTION WIDTH 18.5 % (10.0-14.5); WHITE BLOOD COUNT 8.5 10^3/uL (4.3-11.0)
[2019-03-03 04:28] LABS: CALCIUM 8.2 MG/DL (8.5-10.1); CREATININE SERUM 2.11 MG/DL (0.60-1.30); MAGNESIUM 2.1 MG/DL (1.6-2.4); PHOSPHORUS 3.7 MG/DL (2.3-4.7)
[2019-03-03] MEDS: inSUlin ASPART (NovoLOG) 1 UNIT/0.01 ML (CHARGE PER UNIT) SC SCH ×4 (04:42→22:06)
[2019-03-03] MEDS: NS W/KCL 20 MEQ/L 1,000 ML IV SCH ×3 (04:55→18:24)
--- NOTE | 2019-03-03 05:46 | Pulmonary Consultation ---
History of Present Illness History of Present Illness Date of Consultation 03/03/19 05:40 Time Seen by Provider: 05:40 Date of Admission History of Present Illness 78yo pt admitted secondary to weakness, dizziness, and vomiting. Onsest was Thursday. Allergies and Home Medications Allergies Coded Allergies: sulfamethoxazole (Verified Allergy, Intermediate, 10/05/15) tramadol (Verified Allergy, Intermediate, 10/05/15) trimethoprim (Verified Allergy, Intermediate, 10/05/15) Penicillins (Verified Allergy, Unknown, 10/05/15) codeine (Verified Allergy, Unknown, CAN TAKE MORPHINE, 10/05/15) hydrocodone (Verified Allergy, Unknown, 10/05/15) amiodarone (Verified Adverse Reaction, Mild, NAUSEA, dizziness, 02/01/16) Home Medications Allopurinol 100 Mg Tablet, 100 MG PO MoTh, (Reported) Apixaban 5 Mg Tablet, 5 MG PO BID Prescribed by: Bruno MCDONNELL on 02/05/19 1134 Cholecalciferol (Vitamin D3) 5,000 Unit Capsule, 5,000 UNIT PO DAILY, (Reported) Clopidogrel Bisulfate 75 Mg Tablet, 75 MG PO DAILY, (Reported) Cyanocobalamin 1,000 Mcg/Ml Inj, 1,000 MCG IJ MONTHLY, (Reported) Diazepam 5 Mg Tablet, 5 MG PO DAILY PRN for ANXIETY, (Reported) Estrogens Conjugated 30 Gm Cr, VG MoWeFr, (Reported) Insulin Aspart 100 Unit/1 Ml Susp, PER INSULIN PUMP, (Reported) Liraglutide 0.6 Mg/0.1 Ml Pen.injctr, 1.2 MG SC HS, (Reported) Metolazone 2.5 Mg Tablet, 2.5 MG PO MoTh, (Reported) Metoprolol Succinate 25 Mg Tab.er.24h, 12.5 MG PO DAILY, (Reported) TAKES 1/2 (25MG) TABLET Nitroglycerin 0.4 Mg Tab.subl, 0.4 MG SL UD PRN for CHEST PAIN, (Reported) Pantoprazole Sodium 40 Mg Tablet.dr, 40 MG PO HS, (Reported) Potassium Chloride 20 Meq Tab.er.prt, 10 MEQ PO BID, (Reported) TAKES 1/2 (10MEQ) TABLETS Rosuvastatin Calcium 20 Mg Tablet, 20 MG PO HS, (Reported) Torsemide 100 Mg Tablet, 100 MG PO DAILY, (Reported) Past Wzvcjjz-Fismpp-Swdbrr Hx Patient Social History Alcohol Use: Denies Use Recreational Drug Use: No Smoking Status: Never a Smoker 2nd Hand Smoke Exposure: No Recent Foreign Travel: No Contact w/Someone Who Travel: No Recent Infectious Disease Expo: No Recent Hopitalizations: No Immunizations Up To Date Tetanus Booster (TDap): Less than 5yrs Date of Pneumonia Vaccine: Aug 02, 2018 Date of Influenza Vaccine: May 20, 2018 Seasonal Allergies Seasonal Allergies: No Past Medical History Surgeries: Yes (PACEMAKER, CAROTID ARTERY, HEART CATH-STENTS /ANGIOPLASTY) Cardiac, Coronary Stent, Gallbladder, Hysterectomy, Orthopedic, Pacemaker, Vascular Surgery Respiratory: Yes Sleep Apnea Currently Using CPAP: No Currently Using BIPAP: No Cardiac: Yes (PACEMAKER, CHF, STENTS X10) Atrial Fibrillation, Chronic Edema/Swelling, Coronary Artery Disease, Heart Attack, Heart Murmur, High Cholesterol, Hypertension, Peripheral Vascular Neurological: Yes (TIA AFTER STENT IN JUNE) Neuropathy, TIA 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 ) Endocrine: Yes (INSULIN PUMP, 3 THYROID NODULES) Diabetes, Insulin dep Cataract Loss of Vision: Right Hearing Impairment: Deaf Cancer: Yes (BREAST CA 2010) Breast Did You Recieve Any Treatments: Yes What Type of Treatment Did You: Radiation Psychosocial: No Integumentary: Yes (DIABETIC FOOT ULCER ON LEFT--PT STATES IS NOW HEALED. ) Blood Disorders: No Adverse Reaction/Blood Tranf: No Family Medical History Cardiovascular disease 19 FATHER 19 MOTHER G8 BROTHER G8 SISTER G8 SISTER G8 SISTER Completed stroke 19 FATHER G8 SISTER Diabetes mellitus 19 FATHER G8 SISTER G8 SISTER FH: cancer G8 SISTER G8 SISTER Myocardial infarction G8 BROTHER (65 YEARS OLD) Sepsis Event Evaluation Height, Weight, BMI Height: 5'6.00" Weight: 207lbs. 0.0oz. 93.944595zc; 33.4 BMI Method:Stated Exam Exam Vital Signs Date Time Temp Pulse Resp B/P (MAP) Pulse Ox O2 Delivery O2 Flow Rate FiO2 03/03/19 05:00 65 13 105/57 (73) 98 Nasal Cannula 5.00 03/03/19 04:00 70 9 112/57 (75) 98 Nasal Cannula 5.00 03/03/19 03:00 66 14 107/48 (67) 98 Nasal Cannula 5.00 03/03/19 02:00 76 12 91/44 (60) 97 Nasal Cannula 5.00 03/03/19 01:24 71 03/03/19 01:06 74 03/03/19 01:00 78 30 117/55 (75) 97 Nasal Cannula 5.00 03/03/19 01:00 78 03/03/19 00:08 96.6 03/03/19 00:00 76 13 100/51 (67) 96 Nasal Cannula 5.00 03/02/19 23:58 95 Nasal Cannula 2.00 03/02/19 23:00 81 10 116/63 (80) 99 Nasal Cannula 5.00 03/02/19 22:00 80 15 118/67 (84) 99 Nasal Cannula 5.00 03/02/19 21:00 83 29 96 Nasal Cannula 5.00 03/02/19 20:00 95 Nasal Cannula 3.00 03/02/19 20:00 82 20 154/70 (98) 95 Nasal Cannula 5.00 03/02/19 19:00 89 13 116/63 (80) 100 Nasal Cannula 5.00 03/02/19 19:00 88 03/02/19 18:35 96.6 109 24 120/66 (84) 100 Nasal Cannula 5.00 03/02/19 18:30 106 16 104/55 (71) 97 Nasal Cannula 5.00 03/02/19 16:58 97.3 112 14 108/56 97 5.00 03/02/19 16:30 96 Nasal Cannula 5.00 03/02/19 15:52 96.7 111 28 139/90 (106) 98 I & O 03/03/19 07:00 Intake Total 2235 ml Output Total 2550 ml Balance -315 ml Height & Weight Height: 5'6.00" Weight: 207lbs. 0.0oz. 93.968820rs; 33.4 BMI Method:Stated General Appearance: Mild Distress, Other HEENT: PERRL/EOMI, TMs Normal, Normal ENT Inspection, Pharynx Normal, Moist Mucous Membranes Neck: Full Range of Motion, Normal Inspection Respiratory: Lungs Clear, Normal Breath Sounds, No Accessory Muscle Use, No R espiratory Distress Cardiovascular: Regular Rate, Rhythm, No Edema, Normal Peripheral Pulses, Tachycardia Capillary Refill: Less Than 3 Seconds Extremity: Normal Capillary Refill, Normal Inspection, Non Tender Neurologic/Psychiatric: Alert, Oriented x3 Results Lab Laboratory Tests 03/02/19 16:20 03/03/19 04:03 Assessment/Plan Assessment/Plan NSTEMI -Will consult cardiology -Pt is known to Dr. Mcdonnell Midsternal CP - now resolved Gastroenteritis/colitis UTI -Continue Abx Dehydration -IVF -Improved. YURIY DENIS DO Mar 03, 2019 05:46
[2019-03-03] MEDS ORDERED: NS IV 1000 ML 1,000 ML ONE (06:52)
[2019-03-03] MEDS ORDERED: NS IV 1000 ML 1,000 ML IV SCH (07:00)
[2019-03-03] MEDS ORDERED: PANTOPRAZOLE 40 MG (PROTONIX) TAB PO SCH ×2 (07:00→21:00)
--- NOTE | 2019-03-03 07:03 | Diagnostic Imaging Report ---
Indication: Shortness of breath. Portable chest 3:20 AM Findings: There is a dual-chamber pacemaker. Heart size and pulmonary vascularity are normal. Lungs are clear. There are no effusions or pneumothoraces. Impression: No acute abnormalities in the chest. Dictated by: Dictated on workstation # [id number]
[2019-03-03] MEDS: CLOPIDOGREL 75 MG (PLAVIX) TABLET PO SCH (07:38)
[2019-03-03] MEDS: APIXABAN 2.5 MG (ELIQUIS) TABLET PO SCH ×2 (07:38→20:09)
--- NOTE | 2019-03-03 09:45 | NUR ---
Report called to GALINA Larson who will assume pt care at this time. Pt transported via wheelchair at this time with personal belongings to new room 414. Granddaughter with pt at time of transfer and verified personal belongings.
--- NOTE | 2019-03-03 10:03 | History & Physical-Hospitalist ---
MIRELLA HILLMAN,MED STUDENT 03/03/19 10:03am: History of Present Illness HPI/Chief Complaint Patient is a 78 y/o F who presented to the ED yesterday afternoon because of generalized malaise. Patient states that she had not been feeling well for a while and things got worse at the start of the week. Admits to SOB, weakness, N/V, diarrhea, mid-sternal chest pain, sporadic cough, numbness and tingling. Denies fever, chills, HUERTA. Patients stated that she has lost vision in her Left eye recently, "can't hear out of her R ear", has had numerous heart caths and stents, 3 pacemarkers, a history of UTIs, and that she had Rheumatic fever as a child. Source: patient Date Seen 03/03/19 Attending Physician Analia Morris MD PCP Joe Robertson MD Referring Physician Date of Admission Mar 02, 2019 at 17:20 Home Medications & Allergies Home Medications Reviewed patient Home Medication Reconciliation performed by pharmacy medication reconciliations architecture technician and/or nursing. Patients Allergies have been reviewed. Allergies Allergies Coded Allergies sulfamethoxazole (Verified Allergy, Intermediate, 10/05/15) tramadol (Verified Allergy, Intermediate, 10/05/15) trimethoprim (Verified Allergy, Intermediate, 10/05/15) Penicillins (Verified Allergy, Unknown, 10/05/15) codeine (Verified Allergy, Unknown, CAN TAKE MORPHINE, 10/05/15) hydrocodone (Verified Allergy, Unknown, 10/05/15) amiodarone (Verified Adverse Reaction, Mild, NAUSEA, dizziness, 02/01/16) Past [id number]-Zoohpx Hx Patient Social History Marrital Status: Number of Children: 2 Number of living children: 1 (Son of a "massive [place] @ 50y/o) Employed/Student: retired Alcohol Use: Denies Use Recreational Drug Use: No Smoking Status: Never a Smoker 2nd Hand Smoke Exposure: No Recent Foreign Travel: No Contact w/other who traveled: No Recent Hopitalizations: No Recent Infectious Disease Expo: No Immunizations Up To Date Tetanus Booster (TDap): Less than 5yrs Date of Pneumonia Vaccine: Aug 02, 2018 Date of Influenza Vaccine: May 20, 2018 Seasonal Allergies Seasonal Allergies: No Past Medical History Surgeries: Cardiac, Coronary Stent, Gallbladder, Hysterectomy, Oophorectomy (and salpingectomy ), Orthopedic, Pacemaker, Vascular Surgery Currently Using CPAP: No Currently Using BIPAP: No Cardiac: Atrial Fibrillation, Chronic Edema/Swelling, Coronary Artery Disease, Heart Attack, Heart Murmur, High Cholesterol, Hypertension, Peripheral Vascular, Rheumatic Fever Neurological: Neuropathy (diabetic ), TIA : No Reproductive: No Sexually Transmitted Disease: No Hysterectomy (and oophorectomy with salpingectomy ), Menopausal Genitourinary: Bladder Infection, UTI-Chronic Gastrointestinal: C-Diff (and oophorectomy with salpingectomy ), Irritable Bowel Endocrine: Diabetes, Insulin dep HEENT: Cataract Loss of Vision: Left Hearing Impairment: Deaf (on Right side ) Cancer: Breast Did You Recieve Any Treatments: Yes What Type of Treatment Did You: Radiation History of Blood Disorders: No Adverse Reaction to Blood High: No Family History Cardiovascular disease 19 FATHER 19 MOTHER G8 BROTHER G8 SISTER G8 SISTER G8 SISTER Completed stroke 19 FATHER G8 SISTER Diabetes mellitus 19 FATHER G8 SISTER G8 SISTER FH: cancer G8 SISTER G8 SISTER Myocardial infarction G8 BROTHER (65 YEARS OLD) Review of Systems Constitutional: see HPI EENTM: see HPI Respiratory: see HPI Cardiovascular: see HPI Gastrointestinal: see HPI Musculoskeletal: see HPI Psychiatric/Neurological: See HPI Physical Exam Physical Exam Vital Signs Vital Signs - First Documented 03/02/19 03/02/19 15:52 16:30 Temp 96.7 Pulse 111 Resp 28 B/P (MAP) 139/90 (106) Pulse Ox 98 O2 Delivery Nasal Cannula O2 Flow Rate 5.00 Capillary Refill : Less Than 3 Seconds Height, Weight, BMI Height: 5'6.00" Weight: 215lbs. 0.5oz. [id number]; 33.4 BMI Method:Stated General Appearance: No Apparent Distress, Chronically ill, Obese Neck: Normal Inspection, Non Tender, Supple; No Lymphadenopathy (L), No Lymphadenopathy (R) Respiratory: Chest Non Tender, Lungs Clear, Normal Breath Sounds, No Accessory Muscle Use, No Respiratory Distress Cardiovascular: Regular Rate, Rhythm, No Edema, Normal Peripheral Pulses Extremity: Normal Capillary Refill, Normal Range of Motion, Non Tender, No Pedal Edema Neurologic/Psychiatric: Alert, Oriented x3, Normal Mood/Affect Skin: Normal Color, Warm/Dry Results Results/Procedures Labs Laboratory Tests 03/02/19 16:20 03/03/19 04:03 Patient resulted labs reviewed. Assessment/Plan Admission Diagnosis Septic Shock d/t UTI or C-diff Admission Status: Inpatient Order (span 2 midnights) Reason for Inpatient Admission: Patient meet criteria for septic shock d/t UTI Assessment and Plan septic shock d/t UTI or C-diff Blood culture, urine culture, stool culture IV ceftriaxone 2L NS Retinal Art bleeding in Left eye --> vision loss in L eye likely d/t blood thinners = hold blood thinners prior ophthalmology consult from nayeli - needs to stop blood thinner before a surgeon will operate CAD possible NSTEMI d/t elevated troponin levels -- may be d/t CKD Consult cardiology Stop blood thinners b/c of L retinal artery bleed consult cardiology Acute on CKD trend BUN/Cr monitor urine output/electrolytes Avoid Nephrotoxic drugs A-fib Stop blood thinners b/c of L retinal artery bleed consult cardiology IDMII allow patient to self administer insulin via pump FENGIPPx NS 3L; watch fluid levels because of CKD Electrolytes = monitor Nutrition = regular diet GI ppx = PPI PPX - SCDs and stop blood thinners Clinical Quality Measures DVT/VTE Risk/Contraindication: Risk Factor Score Per Nursin RFS Level Per Nursing on Admit: 4+=Very High Copy Copies To 1: JOE ROBERTSON MD, KATELYN M MD 03/03/19 1:57pm: History of Present Illness Time Seen by a Provider: 09:00 Past Rseouqq-Momgos-Zysgov Hx Past Med/Social Hx: Reviewed Nursing Past Med/Soc Hx Family History Reviewed Nursing Family Hx Cardiovascular disease 19 FATHER 19 MOTHER G8 BROTHER G8 SISTER G8 SISTER G8 SISTER Completed stroke 19 FATHER G8 SISTER Diabetes mellitus 19 FATHER G8 SISTER G8 SISTER FH: cancer G8 SISTER G8 SISTER Myocardial infarction G8 BROTHER (65 YEARS OLD) Review of Systems Genitourinary: No dysuria Skin: no symptoms reported Physical Exam Physical Exam HEENT: Moist Mucous Membranes; No Scleral Icterus (L), No Scleral Icterus (R) Cardiovascular: No Murmur Gastrointestinal: Normal Bowel Sounds, Non Tender, Soft Neurologic/Psychiatric: No Aphasia, No Facial Droop Results Results/Procedures Imaging: Reviewed Imaging Report Assessment/Plan Admission Diagnosis Reason for Inpatient Admission: Needs IV abx, hypotensive, await cultures, will take more than two midnights to stabilize for DC Assessment and Plan Pt presented with malaise, nausea, vomiting, diarrhea and found to meet septic shock criteria due to UTI. She was admitted to the ICU for fluid resuscitation, IV abx, and for monitoring of blood pressure as was marginal on admission. This morning she feels better. Will continue IV abx. BP improved with fluids so will transfer out of ICU. Await cultures. C diff negative. Will add probiotic. Cardiology consulted due to rising troponin and for assistance with anticoagulation due to significant CAD history and current retinal hemorrhage. Discussed with Dr Bauman who recommends holding aspirin and continuing Eliquis and Plavix only at this time. Otherwise medical management of CAD. Will resume other home meds as able. Diagnosis/Problems Diagnosis/Problems (1) Septic shock Status: Acute (2) Blindness of left eye Status: Acute (3) Dehydration Status: Acute (4) UTI (urinary tract infection) Status: Acute Qualifiers: Urinary tract infection type: acute cystitis Hematuria presence: without hematuria Qualified Codes: N30.00 - Acute cystitis without hematuria (5) Gastroenteritis/colitis, infectious Status: Acute (6) Acute kidney injury Status: Acute (7) SSS (sick sinus syndrome) Status: Chronic (8) Hypertension Status: Acute (9) Diabetic neuropathy Status: Acute (10) IDDM (insulin dependent diabetes mellitus) Status: Acute (11) Coronary artery disease Status: Acute (12) On continuous oral anticoagulation (13) Retinal hemorrhage, left Copy Copies To 1: JOE ROBERTSON MD Supervisory-Addendum Brief Verification & Attestation Participated in pt care: history, MDM, physical Personally performed: exam, history, MDM, supervision of care Care discussed with: Medical Student Procedures: n/a Results interpretation: Verified all documentation Verification and Attestation of Medical Student E/M Service A medical student performed and documented this service in my presence. I reviewed and verified all information documented by the medical student and made modifications to such information, when appropriate. I personally performed the physical exam and medical decision making. Analia Morris, Mar 03, 2019,14:34 MIRELLA HILLMAN,MED STUDENT Mar 03, 2019 10:03 am ANALIA MORRIS MD Mar 03, 2019 1:57 pm
[2019-03-03] MEDS ORDERED: APIX5TAB PO (11:07)
--- NOTE | 2019-03-03 11:12 | NUR ---
PATIENT HAD A LIST OF HER MEDICATIONS. I COMPARED THAT LIST WITH THE EXT MED HX. SHE STATES SHE IS NO LONGER TAKING THE ALLOPURINOL THAT IS ON HER LIST. SHE FEELS IT MAKES HER DEHYDRATED. SHE VERIFIED THAT HER VICTOZA DOSE HAS INCREASED TO 1.8MG
--- NOTE | 2019-03-03 13:07 | Consultation-Cardiology ---
HPI-Cardiology Cardiology Consultation Date of Consultation 03/03/19 Date of Admission Time Seen by Provider: 13:02 Indication: chest pain HPI 78-year-old lady with history of coronary artery disease, chronic kidney disease, started having increasing shortness of breath, nausea and vomiting with diarrhea and generalized weakness and loss of energy, has some chest pain described it as dull retrosternal ache in his, has been having mild cough, no fever or chills. This morning she is feeling better, denied any active pain. No palpitation. No syncope or near syncopal episodes. Home Medications & Allergies Allergies: Coded Allergies: sulfamethoxazole (Verified Allergy, Intermediate, 10/05/15) tramadol (Verified Allergy, Intermediate, 10/05/15) trimethoprim (Verified Allergy, Intermediate, 10/05/15) Penicillins (Verified Allergy, Unknown, 10/05/15) codeine (Verified Allergy, Unknown, CAN TAKE MORPHINE, 10/05/15) hydrocodone (Verified Allergy, Unknown, 10/05/15) amiodarone (Verified Adverse Reaction, Mild, NAUSEA, dizziness, 02/01/16) Home Medication List Reviewed: Yes [id number]-Qndfyr Hx Patient Social History Marital Status: Number of Children: 2 Number of living children: 1 (Son of a "massive [place] @ 50y/o) Employed/Student: retired Alcohol Use: Denies Use Recreational Drug Use: No Smoking Status: Never a Smoker 2nd Hand Smoke Exposure: No Recent Foreign Travel: No Recent Infectious Disease Expo: No Recent Hopitalizations: No Immunizations Up To Date Tetanus Booster (TDap): Less than 5yrs Date of Pneumonia Vaccine: Aug 02, 2018 Date of Influenza Vaccine: May 20, 2018 Past Medical History described below Family Medical History Family History: Cardiovascular disease 19 FATHER 19 MOTHER G8 BROTHER G8 SISTER G8 SISTER G8 SISTER Completed stroke 19 FATHER G8 SISTER Diabetes mellitus 19 FATHER G8 SISTER G8 SISTER FH: cancer G8 SISTER G8 SISTER Myocardial infarction G8 BROTHER (65 YEARS OLD) Review of Systems-General Review of Systems Constitutional: see HPI, malaise, weakness EENTM: see HPI Respiratory: see HPI; No cough; dyspnea on exertion; No hemoptysis; orthopnea; No phlegm; short of breath; No stridor, No wheezing, No other Cardiovascular: see HPI, chest pain; No edema, No Hx of Intervention, No palpitations, No syncope, No vascular heart diseas, No other Gastrointestinal: see HPI, abdominal pain, diarrhea, nausea, vomiting Genitourinary: see HPI; No discharge, No dysuria Musculoskeletal: see HPI Psychiatric/Neurological: See HPI Reviewed Test Results Reviewed Test Results Lab Laboratory Tests Test 03/02/19 16:17 03/02/19 16:20 03/02/19 17:39 03/02/19 18:23 Range/Units Glucometer 205 H 70-110 MG/DL White Blood Count 10.6 4.3-11.0 10^3/uL Red Blood Count 5.67 4.35-5.85 10^6/uL Hemoglobin 15.1 11.5-16.0 G/DL Hematocrit 46 35-52 % Mean Corpuscular Volume 80 80-99 FL Mean Corpuscular Hemoglobin 27 25-34 PG Mean Corpuscular Hemoglobin Concent 33 32-36 G/DL Red Cell Distribution Width 20.5 H 10.0-14.5 % Platelet Count 243 130-400 10^3/uL Mean Platelet Volume 10.5 H 7.4-10.4 FL Neutrophils (%) (Auto) 58 42-75 % Lymphocytes (%) (Auto) 30 12-44 % Monocytes (%) (Auto) 11 0-12 % Eosinophils (%) (Auto) 2 0-10 % Basophils (%) (Auto) 0 0-10 % Neutrophils # (Auto) 6.2 1.8-7.8 X 10^3 Lymphocytes # (Auto) 3.1 1.0-4.0 X 10^3 Monocytes # (Auto) 1.2 H 0.0-1.0 X 10^3 Eosinophils # (Auto) 0.2 0.0-0.3 10^3/uL Basophils # (Auto) 0.0 0.0-0.1 10^3/uL Prothrombin Time 18.8 H 12.2-14.7 SEC INR Comment 1.5 H 0.8-1.4 Activated Partial Thromboplast Time 36 H 24-35 SEC Sodium Level 135 135-145 MMOL/L Potassium Level 4.3 3.6-5.0 MMOL/L Chloride Level 96 L 98-107 MMOL/L Carbon Dioxide Level 22 21-32 MMOL/L Anion Gap 17 H 5-14 MMOL/L Blood Urea Nitrogen 32 H 7-18 MG/DL Creatinine 2.48 H 0.60-1.30 MG/DL Estimat Glomerular Filtration Rate 19 BUN/Creatinine Ratio 13 Glucose Level 218 H 70-105 MG/DL Lactic Acid Level 4.90 *H 2.52 *H 0.50-2.00 MMOL/L Calcium Level 10.2 H 8.5-10.1 MG/DL Corrected Calcium 10.3 H 8.5-10.1 MG/DL Total Bilirubin 0.7 0.1-1.0 MG/DL Aspartate Amino Transf (AST/SGOT) 28 5-34 U/L Alanine Aminotransferase (ALT/SGPT) 16 0-55 U/L Alkaline Phosphatase 75 40-136 U/L Troponin I 0.052 H <0.028 NG/ML Total Protein 7.9 6.4-8.2 GM/DL Albumin 3.9 3.2-4.5 GM/DL Urine Color YELLOW Urine Clarity CLEAR Urine pH 7 5-9 Urine Specific [place] 1.010 L 1.016-1.022 Urine Protein 2+ H NEGATIVE Urine Glucose (UA) NEGATIVE NEGATIVE Urine Ketones NEGATIVE NEGATIVE Urine Nitrite NEGATIVE NEGATIVE Urine Bilirubin NEGATIVE NEGATIVE Urine Urobilinogen NORMAL NORMAL MG/DL Urine Leukocyte Esterase 2+ H NEGATIVE Urine RBC (Auto) 2+ H NEGATIVE Urine RBC NONE /HPF Urine WBC 25-50 H /HPF Urine Squamous Epithelial Cells 2-5 /HPF Urine Crystals NONE /LPF Urine Bacteria LARGE H /HPF Urine Casts NONE /LPF Urine Mucus NEGATIVE /LPF Urine Culture Indicated YES Test 03/02/19 19:55 03/02/19 20:18 03/02/19 22:12 03/03/19 00:41 Range/Units Lactic Acid Level 2.34 *H 1.98 1.46 0.50-2.00 MMOL/L Glucometer 151 H 70-110 MG/DL Troponin I 0.116 H <0.028 NG/ML Test 03/03/19 04:03 03/03/19 08:00 03/03/19 11:19 03/03/19 12:15 Range/Units White Blood Count 8.5 4.3-11.0 10^3/uL Red Blood Count 4.74 4.35-5.85 10^6/uL Hemoglobin 12.4 11.5-16.0 G/DL Hematocrit 39 35-52 % Mean Corpuscular Volume 82 80-99 FL Mean Corpuscular Hemoglobin 26 25-34 PG Mean Corpuscular Hemoglobin Concent 32 32-36 G/DL Red Cell Distribution Width 18.5 H 10.0-14.5 % Platelet Count 194 130-400 10^3/uL Mean Platelet Volume 9.7 7.4-10.4 FL Neutrophils (%) (Auto) 61 42-75 % Lymphocytes (%) (Auto) 27 12-44 % Monocytes (%) (Auto) 10 0-12 % Eosinophils (%) (Auto) 2 0-10 % Basophils (%) (Auto) 0 0-10 % Neutrophils # (Auto) 5.2 1.8-7.8 X 10^3 Lymphocytes # (Auto) 2.3 1.0-4.0 X 10^3 Monocytes # (Auto) 0.8 0.0-1.0 X 10^3 Eosinophils # (Auto) 0.2 0.0-0.3 10^3/uL Basophils # (Auto) 0.0 0.0-0.1 10^3/uL Sodium Level 142 135-145 MMOL/L Potassium Level 4.0 3.6-5.0 MMOL/L Chloride Level 106 98-107 MMOL/L Carbon Dioxide Level 23 21-32 MMOL/L Anion Gap 13 5-14 MMOL/L Blood Urea Nitrogen 27 H 7-18 MG/DL Creatinine 2.11 H 0.60-1.30 MG/DL Estimat Glomerular Filtration Rate 23 BUN/Creatinine Ratio 13 Glucose Level 99 70-105 MG/DL Lactic Acid Level 1.52 1.67 2.18 *H 0.50-2.00 MMOL/L Calcium Level 8.2 L 8.5-10.1 MG/DL Phosphorus Level 3.7 2.3-4.7 MG/DL Magnesium Level 2.1 1.6-2.4 MG/DL Troponin I 0.225 H <0.028 NG/ML Glucometer 176 H 70-110 MG/DL Physical Exam Physical Exam Vital Signs Vital Signs - First Documented 03/02/19 03/02/19 15:52 16:30 Temp 96.7 Pulse 111 Resp 28 B/P (MAP) 139/90 (106) Pulse Ox 98 O2 Delivery Nasal Cannula O2 Flow Rate 5.00 Capillary Refill : Less Than 3 Seconds Height, Weight, BMI Height: 5'6.00" Weight: 215lbs. 0.5oz. 97.627033jk; 33.4 BMI Method:Stated General Appearance: No Apparent Distress, Chronically ill, Obese Eyes: Right Eye Normal Inspection, Right Eye PERRL; Left Eye Other (funduscopic exam of the right eye reveals normal-appearing vessels and left eye reveals dark intelligible posterior chamber possible consistent with blood.); Bilateral Eye EOMI HEENT: PERRL/EOMI, TMs Normal, Normal ENT Inspection, Pharynx Normal, Moist Mucous Membranes Neck: Normal Inspection, Non Tender, Supple; No Lymphadenopathy (L), No Lymphadenopathy (R) Respiratory: Chest Non Tender, Lungs Clear, Normal Breath Sounds, No Accessory Muscle Use, No Respiratory Distress Cardiovascular: Regular Rate, Rhythm, No Edema, No Murmur, Normal Peripheral Pulses Gastrointestinal: Normal Bowel Sounds, Soft, Tenderness (epigastric region) Extremity: Normal Capillary Refill, Normal Range of Motion, Non Tender, Pedal Edema Neurologic/Psychiatric: Alert, Oriented x3, Normal Mood/Affect Skin: Normal Color, Warm/Dry A/P-Cardiology Admission Diagnosis Type II [place] Acute renal failure Coronary artery disease Aortic valve stenosis Assessment/Plan Generalized weakness and loss of energy, reporting some improvement. Continue to monitor next Acute on chronic renal insufficiency stage IV, continue to monitor renal function Coronary artery disease, type II [place], mild elevation in troponin level. Treated conservatively. Continue to monitor Recurrent dizziness and lightheadedness, reporting improvement at this time. Coronary artery disease, multiple interventions in the past, reports a total of 11 stents. Multivessel disease. Cardiac catheterization was done in October 2012 showing severe stenosis in the midright coronary artery had stent deployed 3.0x24 mm Promus elements stent expanded to 3.18 mm in the right coronary artery. Severe stenosis in the proximal diagonal artery, very small artery not amendable to intervention. 60 percent in-stent restenosis in the mid circumflex artery, underwent another cardiac catheterization on November 19, [address] Burch, had a stent to the circumflex artery, the stent sizes was not described in the report. Most recent cardiac catheterization done December 26, 2016 with balloon a ngioplasty to the mid circumflex for 80 percent in-stent restenosis. Patient was brought back the same day where she underwent repeat cardiac catheterization after having chest pain, underwent another balloon angioplasty and stent deployment in the distal circumflex artery for recoil of the in-stent restenosis with the use of a new stent, 3.5 x 18 mm Xience Alpine stent. Excellent results. Maintained on Plavix and aspirin. Continue on current medications and monitor Mild to moderate aortic stenosis, last echocardiogram was done on November 2015 done in [facility]. I will review 2-D echocardiogram Labile hypertension, seen by Dr. Long, continue to monitor blood pressure, no changes at this time Hyperlipidemia, patient reports intolerance to Lipitor, tolerating Crestor, continue to monitor lipids Diabetes mellitus, followed and managed by primary care physician. Sick sinus syndrome, history of permanent pacemaker placement. [place] Venturestronic device, continue to monitor Carotid stenosis, history of right carotid endarterectomy. CTA of neck done on February 01, 2016 revealed no significant stenosis in the internal carotid arteries. Prominent focus of stenosis in the distal aspect of the left vertebral artery at the foramen magnum and level dominant right vertebral artery demonstrates no significant stenosis. Carotid ultrasound in January 2017 showed mild bilateral disease. Continue to monitor. Peripheral vascular disease, history of nonhealing foot ulcer, had a stent placed this year, last BARRY was done in April 2016. Continue to monitor. Paroxysmal atrial fibrillation, Amiodarone and Xarelto were discontinued, she is in sinus rhythm, continue to monitor Intolerance to amiodarone. 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 followed by Dr. Palomino, currently in remission. Clinical Quality Measures DVT/VTE Risk/Contraindication: Risk Factor Score Per Nursin RFS Level Per Nursing on Admit: 4+=Very High DIMPLE NOVOA MD Mar 03, 2019 13:07
[2019-03-03] MEDS ORDERED: DIAZEPAM 5 MG (VALIUM) TABLET PO PRN (14:15)
[2019-03-03] MEDS ORDERED: cefTRIAXone 1,000 MG/SWFI 10 ML IV PUSH IV SCH ×2 (19:30)
[2019-03-03] MEDS ORDERED: ROSUVASTATIN 20 MG (CRESTOR) TABLET PO SCH (21:00)
[2019-03-04 00:18] VITALS: BP 137/80
[2019-03-04 04:00] VITALS: BP 134/73
[2019-03-04] MEDS: inSUlin ASPART (NovoLOG) 1 UNIT/0.01 ML (CHARGE PER UNIT) SC SCH ×2 (06:48→11:11)
[2019-03-04] MEDS: CLOPIDOGREL 75 MG (PLAVIX) TABLET PO SCH (08:29)
[2019-03-04] MEDS: APIXABAN 2.5 MG (ELIQUIS) TABLET PO SCH (08:29)
--- NOTE | 2019-03-04 08:40 | Progress Note - Hospitalist ---
MIRELLA HILLMAN,MED STUDENT 03/04/19 0840: Subjective HPI/CC On Admission Date Seen by Provider: Mar 04, 2019 Subjective/Events-last exam Patient says she is feeling a little better and is wondering if she can go home today. She denies HUERTA, N/V, dizziness, SOB, cough, chest pain, palpitations, Sto mach pain, constipation, numbness, tinglings, weakness, fever, chills and changes in appetite. Admits to calf pain and diarrhea Focused Exam Lactate Level 03/03/19 04:03: Lactic Acid Level 1.52 03/03/19 08:00: Lactic Acid Level 1.67 03/03/19 12:15: Lactic Acid Level 2.18*H Objective Exam Vital Signs Vital Signs Date Time Temp Pulse Resp B/P (MAP) Pulse Ox O2 Delivery O2 Flow Rate FiO2 03/04/19 04:00 96.9 74 20 134/73 (93) 97 Room Air 03/03/19 09:00 1.50 Capillary Refill : Less Than 3 Seconds General Appearance: No Apparent Distress, WD/WN, Obese Respiratory: Chest Non Tender, Lungs Clear, Normal Breath Sounds, No Respiratory Distress Cardiovascular: Regular Rate, Rhythm, No Edema, No Gallop, No Murmur, Normal Peripheral Pulses Gastrointestinal: Normal Bowel Sounds, No Pulsatile Mass, Non Tender, Soft Neurologic/Psychiatric: Alert, Oriented x3, Normal Mood/Affect Skin: Normal Color, Warm/Dry Results/Procedures Lab Patient resulted labs reviewed. Imaging: Reviewed Imaging Report Assessment/Plan Assessment and Plan Assess & Plan/Chief Complaint septic shock d/t UTI or C-diff ---> lactic levels <4 but >2 = septic shock Blood culture, stool culture urine culture = + for Gram negative bacilli IV ceftriaxone maintenance fluids - NS Repeat Lactic acid labs Retinal Art bleeding in Left eye --> vision loss in L eye likely d/t blood thinners = hold blood thinners prior ophthalmology consult from nayeli - needs to stop blood thinner before a surgeon will operate consult cardiology CAD possible NSTEMI d/t elevated troponin levels -- may be d/t CKD Consult cardiology Stop blood thinners b/c of L retinal artery bleed consult cardiology Acute on CKD trend BUN/Cr monitor urine output/electrolytes Avoid Nephrotoxic drugs A-fib Stop blood thinners b/c of L retinal artery bleed consult cardiology 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
[2019-03-04] MEDS ORDERED: ESTROGENS CONJ. CREAM 30 GM (PREMARIN) TUBE VG SCH (09:00)
--- NOTE | 2019-03-04 09:10 | Cardiology Progress Note ---
Subjective Date Seen by Provider: Mar 04, 2019 Time Seen by Provider: 09:06 Subjective/Events-last exam Patient is laying down in bed, feeling better. Denied any chest pain Review of Systems General: No Chills, No Night Sweats, No Fatigue, No Malaise, No Appetite, No Other HEENT: No Head Aches, No Visual Changes, No Eye Pain, No Ear Pain, No Dysphasia, No Sinus Congestion, No Post Nasal Drip, No Sore Throat, No Other Pulmonary: No Dyspnea, No Cough, No Pleuritic Chest Pain, No Other Cardiovascular: No: Chest Pain, Palpitations, Orthopnea, Paroxysmal Noc. Dyspnea, Edema, Lt Headedness, Other Focused Exam Lactate Level 03/03/19 04:03: Lactic Acid Level 1.52 03/03/19 08:00: Lactic Acid Level 1.67 03/03/19 12:15: Lactic Acid Level 2.18*H Objective-Cardiology Exam Last Set of Vital Signs Vital Signs 03/03/19 03/04/19 09:00 04:00 Temp 96.9 Pulse 74 Resp 20 B/P (MAP) 134/73 (93) Pulse Ox 97 O2 Delivery Room Air O2 Flow Rate 1.50 Capillary Refill : Less Than 3 Seconds I&O Intake and Output 03/04/19 00:00 Intake Total 1730 ml Output Total 660 ml Balance 1070 ml Intake Oral 710 ml IV Total 1020 ml Output Urine Total 660 ml # Bowel Movements 1 General: Alert, Oriented X3, Cooperative HEENT: Atraumatic, PERRLA Neck: Supple, No JVD, No Thyromegaly, Other (Carotid bruit) Lungs: Clear to Auscultation, Normal Air Movement Heart: Regular Rate, Normal S1, Normal S2, Other (Systolic murmur at the left sternal border) Abdomen: Normal Bowel Sounds, Soft, No Tenderness, No Hepatosplenomegaly, No Masses Extremities: No Clubbing, No Cyanosis, Normal Pulses, No Tenderness/Swelling, Other (Mild edema) Skin: No Rashes, No Breakdown, No Significant Lesion Neuro: Normal Gait, Normal Speech, Strength at 5/5 X4 Ext, Normal Tone, Sensation Intact Psych/Mental Status: Mental Status NL, Mood NL Results Lab Laboratory Tests Test 03/03/19 11:19 03/03/19 12:15 03/03/19 15:40 03/03/19 21:59 Range/Units Glucometer 176 H 141 H 161 H 70-110 MG/DL Lactic Acid Level 2.18 *H 0.50-2.00 MMOL/L Test 03/04/19 06:35 Range/Units Glucometer 152 H 70-110 MG/DL A/P-Cardiology Admission Diagnosis Type II NJ Acute renal failure Coronary artery disease Aortic valve stenosis Assessment/Plan Generalized weakness and loss of energy, reporting improvement, followed by primary care physician Acute on chronic renal insufficiency stage IV, continue to monitor renal function Coronary artery disease, type II NJ, mild elevation in troponin level. Treated conservatively. Continue to monitor Recurrent dizziness and lightheadedness, reporting improvement at this time. Coronary artery disease, multiple interventions in the past, reports a total of 11 stents. Multivessel disease. Cardiac catheterization was done in October 2012 showing severe stenosis in the midright coronary artery had stent deployed 3.0x24 mm Promus elements stent expanded to 3.18 mm in the right coronary artery. Severe stenosis in the proximal diagonal artery, very small artery not amendable to intervention. 60 percent in-stent restenosis in the mid circumflex artery, underwent another cardiac catheterization on November 19, [address] Burch, had a stent to the circumflex artery, the stent sizes was not described in the report. Most recent cardiac catheterization done December 26, 2016 with balloon angioplasty to the mid circumflex for 80 percent in-stent restenosis. Patient was brought back the same day where she underwent repeat cardiac catheterization after having chest pain, underwent another balloon angioplasty and stent deployment in the distal circumflex artery for recoil of the in-stent restenosis with the use of a new stent, 3.5 x 18 mm Xience Alpine stent. Excellent resul ts. Maintained on Plavix and aspirin. Continue on current medications and monitor Mild to moderate aortic stenosis, last echocardiogram was done on November 2015 done in [facility]. I will review 2-D echocardiogram Labile hypertension, seen by Dr. Long, continue to monitor blood pressure, no changes at this time Hyperlipidemia, patient reports intolerance to Lipitor, tolerating Crestor, continue to monitor lipids Diabetes mellitus, followed and managed by primary care physician. Sick sinus syndrome, history of permanent pacemaker placement. [employer] device, continue to monitor Carotid stenosis, history of right carotid endarterectomy. CTA of neck done on February 01, 2016 revealed no significant stenosis in the internal carotid arteries. Prominent focus of stenosis in the distal aspect of the left vertebral artery at the foramen magnum and level dominant right vertebral artery demonstrates no significant stenosis. Carotid ultrasound in January 2017 showed mild bilateral disease. Continue to monitor. Peripheral vascular disease, history of nonhealing foot ulcer, had a stent placed this year, last BARRY was done in April 2016. Continue to monitor. Paroxysmal atrial fibrillation, Amiodarone and Xarelto were discontinued, she is in sinus rhythm, continue to monitor Intolerance to amiodarone. 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 followed by Dr. Palomino, currently in remission. Clinical Quality Measures DVT/VTE Risk/Contraindication: Risk Factor Score Per Nursin RFS Level Per Nursing on Admit: 4+=Very High DIMPLE NOVOA MD Mar 04, 2019 09:10
[2019-03-04] MEDS ORDERED: APIX2.5T PO (11:35)
[2019-03-04] MEDS ORDERED: CEPH-507 PO (11:35)
--- NOTE | 2019-03-04 11:44 | Discharge Inst-Simple/Standard ---
Discharge Inst-Standard Reconcile Patient Problems Problems Reviewed?: Yes Patient Instructions/Follow Up Plan of Care/Instructions/FU: Please continue to take your medications as written. Please follow up with your PCP in the next week and with Dr Patino your eye doctor next week. Activity as Tolerated: Yes Discharge Diet: No Restrictions Return to The Hospital For: Fever, confusion, worsening diarrhea, inability to keep food down, worsening vision, chest pain, shortness of breath, if you feel you are getting worse. ANALIA WARD MD Mar 04, 2019 11:44
--- NOTE | 2019-03-04 12:20 | Discharge Summary ---
MIRELLA HILLMAN,MED STUDENT 03/04/19 1220: Diagnosis/Chief Complaint Date of Admission Mar 02, 2019 at 17:20 Date of Discharge Discharge Date: Mar 04, 2019 Admission Diagnosis Septic Shock d/t UTI or C-diff Primary Care Rashaun Gonzales MD Discharge Diagnosis (1) Septic shock Status: Acute (2) Blindness of left eye Status: Acute (3) Dehydration Status: Acute (4) UTI (urinary tract infection) Status: Acute (5) Gastroenteritis/colitis, infectious Status: Acute (6) Acute kidney injury Status: Acute (7) SSS (sick sinus syndrome) Status: Chronic (8) Hypertension Status: Acute (9) Diabetic neuropathy Status: Acute (10) IDDM (insulin dependent diabetes mellitus) Status: Acute (11) Coronary artery disease Status: Acute (12) On continuous oral anticoagulation (13) Retinal hemorrhage, left Discharge Summary Procedures/Consulations Consult Cardiology Consult pulmonology Discharge Physical Exam Allergies: Coded Allergies: sulfamethoxazole (Verified Allergy, Intermediate, 10/05/15) tramadol (Verified Allergy, Intermediate, 10/05/15) trimethoprim (Verified Allergy, Intermediate, 10/05/15) Penicillins (Verified Allergy, Unknown, 10/05/15) codeine (Verified Allergy, Unknown, CAN TAKE MORPHINE, 10/05/15) hydrocodone (Verified Allergy, Unknown, 10/05/15) amiodarone (Verified Adverse Reaction, Mild, NAUSEA, dizziness, 02/01/16) Vitals & I&Os Vital Signs Date Time Temp Pulse Resp B/P (MAP) Pulse Ox O2 Delivery O2 Flow Rate FiO2 03/04/19 08:00 Room Air 03/04/19 04:00 96.9 74 20 134/73 (93) 97 03/03/19 09:00 1.50 Hospital Course Patient is a 78 y/o F who presented to the ED 2 days ago because of generalized malaise and diarrhea. Patients stated that she has lost vision in her Left eye recently; Dr Morrow in the ER talked ophthalmology in [place] about L retinal artery bleed which recommended outpatient follow up. She was admitted to the hospital for septic shock d/t a UTI . Blood cultures were negative, urine culture were positive for klebsiella, and stool cultures were negative. Patient was started on IV ceftriaxone and fluid resuscitation with NS. Cardiology was consulted because of patient's history of CAD and recent L eye blindness. Patient has improved with treatment and asked when she can go home. Patients vitals are stable and is able to be discharged at this time to complete oral coarse of abx with Keflax. She needs to follow with her PCP and ophthalmology in the next 1-2wks Labs (last 24 hrs) Laboratory Tests 03/03/19 15:40: Glucometer 141H 03/03/19 21:59: Glucometer 161H 03/04/19 06:35: Glucometer 152H 03/04/19 11:06: Glucometer 161H Microbiology 03/02/19 Blood Culture - Preliminary, Resulted No growth 03/03/19 C. difficile GDH Antigen & Toxins - Final, Resulted 03/03/19 Stool Culture - Preliminary, Resulted 03/02/19 MRSA Screen - Final, Complete MRSA not isolated 03/02/19 Urine Culture - Final, Complete Gram Pos Mixed Bacterial Angelica Klebsiella pneumoniae Patient resulted labs reviewed. Pending Labs Laboratory Tests 03/04/19 06:35: Glucometer 152 03/04/19 11:06: Glucometer 161 Other pending tests Stool cultures are still pending Radiology Reviewed CXR impression No acute abnormalities in the chest. Imaging: Reviewed Imaging Report Discharge Home Medications: Active Scripts Active Keflex (Cephalexin) 500 Mg Capsule 500 Mg PO BID Eliquis (Apixaban) 2.5 Mg Tablet 2.5 Mg PO BID Reported Torsemide 100 Mg Tablet 100 Mg PO DAILY Vitamin D3 (Cholecalciferol (Vitamin D3)) 5,000 Unit Capsule 5,000 Unit PO DAILY Premarin (Estrogens Conjugated) 30 Gm Cr VG MOWEFR Rosuvastatin Calcium 20 Mg Tablet 20 Mg PO HS Metolazone 2.5 Mg Tablet 2.5 Mg PO MOTH Victoza 2-Luis Enrique (Liraglutide) 0.6 Mg/0.1 Ml Pen.injctr 1.8 Mg SC HS Nitroglycerin 0.4 Mg Tab.subl 0.4 Mg SL UD PRN Potassium Chloride 20 Meq Tab.er.prt 10 Meq PO BID TAKES 1/2 (10MEQ) TABLETS Diazepam 5 Mg Tablet 5 Mg PO DAILY PRN Cyanocobalamin Injection (Cyanocobalamin) 1,000 Mcg/Ml Inj 1,000 Mcg IJ MONTHLY Metoprolol Succinate 25 Mg Tab.er.24h 12.5 Mg PO DAILY TAKES 1/2 (25MG) TABLET Pantoprazole Sodium 40 Mg Tablet. 40 Mg PO HS Clopidogrel (Clopidogrel Bisulfate) 75 Mg Tablet 75 Mg PO DAILY Novolog (Insulin Aspart) 100 Unit/1 Ml Susp PER INSULIN PUMP Instructions to patient/family Please see electronic discharge instructions given to patient. Clinical Quality Measures DVT/VTE Risk/Contraindication: Risk Factor Score Per Nursin RFS Level Per Nursing on Admit: 4+=Very High ANALIA MORRIS MD 03/06/19 1404: Discharge Summary Discharge Physical Exam Allergies: Coded Allergies: sulfamethoxazole (Verified Allergy, Intermediate, 10/05/15) tramadol (Verified Allergy, Intermediate, 10/05/15) trimethoprim (Verified Allergy, Intermediate, 10/05/15) Penicillins (Verified Allergy, Unknown, 10/05/15) codeine (Verified Allergy, Unknown, CAN TAKE MORPHINE, 10/05/15) hydrocodone (Verified Allergy, Unknown, 10/05/15) amiodarone (Verified Adverse Reaction, Mild, NAUSEA, dizziness, 02/01/16) General Appearance: No Apparent Distress, Chronically ill Respiratory: Lungs Clear, No Accessory Muscle Use, No Respiratory Distress Cardiovascular: Regular Rate, Rhythm, No Murmur Gastrointestinal: Normal Bowel Sounds, Non Tender, Soft Neurologic/Psychiatric: Alert, Oriented x3 Discussion & Recommendations Discharge Planning: >30 minutes discharge planning Supervisory-Addendum Brief Verification & Attestation Participated in pt care: history, MDM, physical Personally performed: exam, history, MDM, supervision of care Care discussed with: Medical Student Procedures: n/a Results interpretation: Verified all documentation Verification and Attestation of Medical Student E/M Service A medical student performed and documented this service in my presence. I reviewed and verified all information documented by the medical student and made modifications to such information, when appropriate. I personally performed the physical exam and medical decision making. Analia Morris, Mar 06, 2019,14:03 Problem Qualifiers (1) UTI (urinary tract infection): Urinary tract infection type: acute cystitis Hematuria presence: without hematuria Qualified Codes: N30.00 - Acute cystitis without hematuria MIRELLA HILLMAN,MED STUDENT Mar 04, 2019 12:20 ANALIA MORRIS MD Mar 06, 2019 14:04
[2019-03-04 13:23] VITALS: BP 134/73
== END 2019-03-04 13:06 | disposition home or self-care (01) | DRG 871 ==
LOC: EDUNIT# 15:42 → ER 15:43 → ICU 17:20 → 4TH 03-03 09:45
PROVIDERS: ADMIT Family Medicine; ATTEND Family Medicine
DX: A41.59 Other Gram-negative sepsis (principal); R65.21 Severe sepsis with septic shock; I21.4 Non-ST elevation (NSTEMI) myocardial infarction; N30.00 Acute cystitis without hematuria; N17.9 Acute kidney failure, unspecified; K52.9 Noninfective gastroenteritis and colitis, unspecified; E86.0 Dehydration; I13.0 Hypertensive heart and chronic kidney disease with heart failure and stage 1 through stage 4 chronic kidney disease, or unspecified chronic kidney disease; I50.9 Heart failure, unspecified; N18.4 Chronic kidney disease, stage 4 (severe); H35.62 Retinal hemorrhage, left eye; I25.10 Atherosclerotic heart disease of native coronary artery without angina pectoris; E11.39 Type 2 diabetes mellitus with other diabetic ophthalmic complication; I48.91 Unspecified atrial fibrillation; R01.1 Cardiac murmur, unspecified; E11.51 Type 2 diabetes mellitus with diabetic peripheral angiopathy without gangrene; E11.40 Type 2 diabetes mellitus with diabetic neuropathy, unspecified; H91.92 Unspecified hearing loss, left ear; I35.0 Nonrheumatic aortic (valve) stenosis; E78.00 Pure hypercholesterolemia, unspecified; G47.30 Sleep apnea, unspecified; G60.0 Hereditary motor and sensory neuropathy; I25.2 Old myocardial infarction; Z95.0 Presence of cardiac pacemaker; Z95.5 Presence of coronary angioplasty implant and graft; Z79.4 Long term (current) use of insulin; Z85.3 Personal history of malignant neoplasm of breast; Z86.73 Personal history of transient ischemic attack (TIA), and cerebral infarction without residual deficits; Z79.01 Long term (current) use of anticoagulants
CPT/HCPCS: 36415; 71045; 80048; 80053; 81000; 82962; 83605; 83735; 84100; 84484; 85025; 85610; 85730; 87015; 87040; 87045; 87046; 87077; 87081; 87088; 87186; 87324; 87449; 87899; 93005

== ENCOUNTER → 2019-03-17 | Outpatient (CLI) | payer MEDICARE, MEDICAID ==
[~2019-03-17] MED LIST changes: +APIX2.5T PO; +CEPH-507 PO
== END ==
LOC: ONC 10:10
PROVIDERS: ATTEND Internal Medicine Hematology & Oncology
DX: Z08 Encounter for follow-up examination after completed treatment for malignant neoplasm (principal); Z85.3 Personal history of malignant neoplasm of breast; I13.0 Hypertensive heart and chronic kidney disease with heart failure and stage 1 through stage 4 chronic kidney disease, or unspecified chronic kidney disease; N18.3 Chronic kidney disease, stage 3 (moderate); E11.22 Type 2 diabetes mellitus with diabetic chronic kidney disease; E11.43 Type 2 diabetes mellitus with diabetic autonomic (poly)neuropathy; E78.5 Hyperlipidemia, unspecified; K21.9 Gastro-esophageal reflux disease without esophagitis; E04.1 Nontoxic single thyroid nodule; I25.10 Atherosclerotic heart disease of native coronary artery without angina pectoris; Z95.5 Presence of coronary angioplasty implant and graft; Z79.02 Long term (current) use of antithrombotics/antiplatelets; Z79.4 Long term (current) use of insulin; Z79.899 Other long term (current) drug therapy
CPT/HCPCS: 99213

== ENCOUNTER 2019-04-05 15:48 | Inpatient (IN) | payer MEDICARE, MEDICAID ==
[~2019-04-05] VITALS: Ht 167 cm; Wt 101.2 kg
[2019-04-05] VITALS (11 sets, daily range): BP systolic 84–105; BP diastolic 41–92
--- NOTE | 2019-04-05 15:50 | NUR ---
Pt's O2 sat dropped to upper 80s. Pt placed on 5 L NC at this time.
[2019-04-05] MEDS ORDERED: NS IV 500 ML 500 ML IV ONE ×2 (15:55→23:30)
[2019-04-05] MEDS ORDERED: DILTIAZEM IV FOR DRIP 125 MG in NS (IVPB) 100 ML IV SCH (16:15)
[2019-04-05] MEDS ORDERED: DILTIAZEM 25 MG/5 ML INJ (CARDIZEM) VIAL IVP ONE (16:15)
[2019-04-05 16:23] LABS: BASOPHILS % (AUTO) 0 % (0-10); EOSINOPHILS # (AUTO) 0.1 10^3/uL (0.0-0.3); EOSINOPHILS % (AUTO) 1 % (0-10); HEMATOCRIT 43 % (35-52); LYMPHOCYTES # (AUTO) 1.9 X 10^3 (1.0-4.0); LYMPHOCYTES % (AUTO) 19 % (12-44); MEAN CORPUSCULAR HEMOGLOBIN 27 PG (25-34); MEAN CORPUSCULAR HGB CONC 32 G/DL (32-36); MEAN CORPUSCULAR VOLUME 83 FL (80-99); MONOCYTES # (AUTO) 0.7 X 10^3 (0.0-1.0); MONOCYTES % (AUTO) 7 % (0-12); NEUTROPHILS # (AUTO) 7.5 X 10^3 (1.8-7.8); NEUTROPHILS % (AUTO) 73 % (42-75); PLATELET COUNT 245 10^3/uL (130-400); RED CELL DISTRIBUTION WIDTH 18.6 % (10.0-14.5); WHITE BLOOD COUNT 10.2 10^3/uL (4.3-11.0)
[2019-04-05 16:24] LABS: BILIRUBIN,URINE NEGATIVE (NEGATIVE); CLARITY,URINE CLEAR; COLOR,URINE YELLOW; GLUCOSE, URINE (UA) 2+ (NEGATIVE); KETONES,URINE 1+ (NEGATIVE); LEUKOCYTE ESTERASE ,URINE NEGATIVE (NEGATIVE); NITRITE,URINE NEGATIVE (NEGATIVE); PH,URINE 7 (5-9); PROTEIN,URINE 2+ (NEGATIVE); UROBILINOGEN,URINE NORMAL (NORMAL)
[2019-04-05] MEDS ORDERED: ONDANSETRON 4 MG/2 ML (SDV) Z0FRAN IVP ONE (16:30)
[2019-04-05] MEDS ORDERED: NS IV 1000 ML 1,000 ML IV ONE (16:34)
[2019-04-05 16:35] LABS: BACTERIA,URINE NEGATIVE /HPF; HYALINE CASTS, URINE 0-2 /LPF; RBC,URINE 0-2 /HPF; SQUAMOUS EPITHELIAL CELL,UR RARE /HPF; WBC,URINE RARE /HPF
[2019-04-05 16:41] LABS: ALBUMIN 4.1 GM/DL (3.2-4.5); BILIRUBIN,TOTAL 0.6 MG/DL (0.1-1.0); CALCIUM 9.7 MG/DL (8.5-10.1); CREATININE SERUM 2.08 MG/DL (0.60-1.30); MAGNESIUM 2.2 MG/DL (1.6-2.4); POTASSIUM 4.2 MMOL/L (3.6-5.0); TOTAL PROTEIN 7.9 GM/DL (6.4-8.2)
--- NOTE | 2019-04-05 16:41 | ED Cardiac General ---
History of Present Illness General Stated Complaint: N/V/LOW BP Source: patient Exam Limitations: no limitations History of Present Illness Date Seen by Provider: Apr 05, 2019 Time Seen by Provider: 15:56 Initial Comments Here by EMS with report of nausea, vomiting or low blood pressure as well as fast heart rate. She was seen in [place] today and had her I injected after some sort of vision loss problem. I was a local injection and she does not believe that the cause of her problems. She does have history of A. fib and does have pacemaker and she previously has had A. fib with RVR. Denies chest pain. States overall feels weak. Does note that the last few days she's been unable to get good control of her blood sugars and does admit to history of frequent urinary tract infections. Denies fever or chills currently just states that she feels weak and terrible. 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: Yes Associated Systoms: No Chest Pain, No Fever/Chills; Loss of Appetite, Nausea/Vomiting; No Shortness of Air; Weakness Allergies and Home Medications Allergies Coded Allergies: sulfamethoxazole (Verified Allergy, Intermediate, 10/05/15) tramadol (Verified Allergy, Intermediate, 10/05/15) trimethoprim (Verified Allergy, Intermediate, 10/05/15) Penicillins (Verified Allergy, Unknown, 10/05/15) codeine (Verified Allergy, Unknown, CAN TAKE MORPHINE, 10/05/15) hydrocodone (Verified Allergy, Unknown, 10/05/15) amiodarone (Verified Adverse Reaction, Mild, NAUSEA, dizziness, 02/01/16) Home Medications Apixaban 2.5 Mg Tablet, 2.5 MG PO BID Prescribed by: ANALIA WARD on 03/04/19 1135 Cephalexin 500 Mg Capsule, 500 MG PO BID Prescribed by: ANALIA WARD on 03/04/19 1135 Cholecalciferol (Vitamin D3) 5,000 Unit Capsule, 5,000 UNIT PO DAILY, (Reported) Clopidogrel Bisulfate 75 Mg Tablet, 75 MG PO DAILY, (Reported) Cyanocobalamin 1,000 Mcg/Ml Inj, 1,000 MCG IJ MONTHLY, (Reported) Diazepam 5 Mg Tablet, 5 MG PO DAILY PRN for ANXIETY, (Reported) Estrogens Conjugated 30 Gm Cr, VG MoWeFr, (Reported) Insulin Aspart 100 Unit/1 Ml Susp, PER INSULIN PUMP, (Reported) Liraglutide 0.6 Mg/0.1 Ml Pen.injctr, 1.8 MG SC HS, (Reported) Metolazone 2.5 Mg Tablet, 2.5 MG PO MoTh, (Reported) Metoprolol Succinate 25 Mg Tab.er.24h, 12.5 MG PO DAILY, (Reported) TAKES 1/2 (25MG) TABLET Nitroglycerin 0.4 Mg Tab.subl, 0.4 MG SL UD PRN for CHEST PAIN, (Reported) Pantoprazole Sodium 40 Mg Tablet.dr, 40 MG PO HS, (Reported) Potassium Chloride 20 Meq Tab.er.prt, 10 MEQ PO BID, (Reported) TAKES 1/2 (10MEQ) TABLETS Rosuvastatin Calcium 20 Mg Tablet, 20 MG PO HS, (Reported) Torsemide 100 Mg Tablet, 100 MG PO DAILY, (Reported) Patient Home Medication List Home Medication List Reviewed: Yes Review of Systems Review of Systems Constitutional: see HPI; No fever EENTM: No Symptoms Reported Respiratory: Denies Cough, Denies Shortness of Air Cardiovascular: Denies Chest Pain, Denies Edema; Irregular Heart Rate, Palpitations Gastrointestinal: Denies Abdominal Pain; Nausea, Vomiting Genitourinary: No Symptoms Reported Musculoskeletal: no symptoms reported All Other Systems Reviewed Negative Unless Noted: Yes Past Mkzxncw-Vnujzq-Epwotq Hx Past Med/Social Hx: Reviewed Nursing Past Med/Soc Hx Patient Social History Alcohol Use: Denies Use Recreational Drug Use: No Smoking Status: Never a Smoker 2nd Hand Smoke Exposure: No Recent Hopitalizations: No Immunizations Up To Date Tetanus Booster (TDap): Less than 5yrs Date of Pneumonia Vaccine: Aug 02, 2018 Date of Influenza Vaccine: May 20, 2018 Seasonal Allergies Seasonal Allergies: No Past Medical History Surgeries: Yes (PACEMAKER, CAROTID ARTERY, HEART CATH-STENTS /ANGIOPLASTY) Cardiac, Coronary Stent, Gallbladder, Hysterectomy, Oophorectomy, Orthopedic, Pacemaker, Vascular Surgery Respiratory: Yes Sleep Apnea Currently Using CPAP: No Currently Using BIPAP: No Cardiac: Yes (PACEMAKER, CHF, STENTS X10) Atrial Fibrillation, Chronic Edema/Swelling, Coronary Artery Disease, Heart Attack, Heart Murmur, High Cholesterol, Hypertension, Peripheral Vascular, Rheumatic Fever Neurological: Yes (TIA AFTER STENT IN JUNE) Neuropathy, TIA Reproductive Disorders: No 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 ) Endocrine: Yes (INSULIN PUMP, 3 THYROID NODULES) Diabetes, Insulin dep Cataract Loss of Vision: Left Hearing Impairment: Deaf Cancer: Yes (BREAST CA 2010) Breast Did You Recieve Any Treatments: Yes What Type of Treatment Did You: Radiation Psychosocial: No Integumentary: Yes (DIABETIC FOOT ULCER ON LEFT--PT STATES IS NOW HEALED. ) Blood Disorders: No Adverse Reaction/Blood Tranf: No Family Medical History Reviewed Nursing Family Hx Cardiovascular disease 19 FATHER 19 MOTHER G8 BROTHER G8 SISTER G8 SISTER G8 SISTER Completed stroke 19 FATHER G8 SISTER Diabetes mellitus 19 FATHER G8 SISTER G8 SISTER FH: cancer G8 SISTER G8 SISTER Myocardial infarction G8 BROTHER (65 YEARS OLD) Physical Exam Vital Signs Vital Signs - First Documented 04/05/19 04/05/19 15:48 15:50 Temp 35.5 Pulse 146 Resp 24 B/P (MAP) 108/72 (84) Pulse Ox 94 O2 Delivery Room Air O2 Flow Rate 5.00 Capillary Refill : Height, Weight, BMI Height: 5'6.00" Weight: 215lbs. 0.5oz. 97.513291ou; 33.4 BMI Method:Stated General Appearance: WD/WN, Other (ill-appearing) HEENT: PERRL/EOMI, Pharynx Normal Neck: Non Tender, Supple Respiratory: Lungs Clear, Normal Breath Sounds Cardiovascular: Irregularly Irregular, Tachycardia Gastrointestinal: Non Tender, Soft Neurologic/Psychiatric: Alert, Oriented x3 Skin: Normal Color, Warm/Dry Focused Exam Lactate Level 04/05/19 16:22: Lactic Acid Level 3.80*H Lactic Acid Level Laboratory Tests Test 04/05/19 16:22 Lactic Acid Level 3.80 MMOL/L (0.50-2.00) *H Progress/Results/Core Measures Results/Orders Lab Results Laboratory Tests Test 04/05/19 15:55 04/05/19 16:15 04/05/19 16:22 Range/Units White Blood Count 10.2 4.3-11.0 10^3/uL Red Blood Count 5.23 4.35-5.85 10^6/uL Hemoglobin 14.0 11.5-16.0 G/DL Hematocrit 43 35-52 % Mean Corpuscular Volume 83 80-99 FL Mean Corpuscular Hemoglobin 27 25-34 PG Mean Corpuscular Hemoglobin Concent 32 32-36 G/DL Red Cell Distribution Width 18.6 H 10.0-14.5 % Platelet Count 245 130-400 10^3/uL Mean Platelet Volume 10.0 7.4-10.4 FL Neutrophils (%) (Auto) 73 42-75 % Lymphocytes (%) (Auto) 19 12-44 % Monocytes (%) (Auto) 7 0-12 % Eosinophils (%) (Auto) 1 0-10 % Basophils (%) (Auto) 0 0-10 % Neutrophils # (Auto) 7.5 1.8-7.8 X 10^3 Lymphocytes # (Auto) 1.9 1.0-4.0 X 10^3 Monocytes # (Auto) 0.7 0.0-1.0 X 10^3 Eosinophils # (Auto) 0.1 0.0-0.3 10^3/uL Basophils # (Auto) 0.0 0.0-0.1 10^3/uL Prothrombin Time 14.7 12.2-14.7 SEC INR Comment 1.1 0.8-1.4 Activated Partial Thromboplast Time 29 24-35 SEC Sodium Level 140 135-145 MMOL/L Potassium Level 4.2 3.6-5.0 MMOL/L Chloride Level 97 L 98-107 MMOL/L Carbon Dioxide Level 26 21-32 MMOL/L Anion Gap 17 H 5-14 MMOL/L Blood Urea Nitrogen 23 H 7-18 MG/DL Creatinine 2.08 H 0.60-1.30 MG/DL Estimat Glomerular Filtration Rate 23 BUN/Creatinine Ratio 11 Glucose Level 231 H 70-105 MG/DL Calcium Level 9.7 8.5-10.1 MG/DL Corrected Calcium 9.6 8.5-10.1 MG/DL Magnesium Level 2.2 1.6-2.4 MG/DL Total Bilirubin 0.6 0.1-1.0 MG/DL Aspartate Amino Transf (AST/SGOT) 23 5-34 U/L Alanine Aminotransferase (ALT/SGPT) 17 0-55 U/L Alkaline Phosphatase 95 40-136 U/L Myoglobin 160.5 H 10.0-92.0 NG/ML Troponin I 0.096 H <0.028 NG/ML Total Protein 7.9 6.4-8.2 GM/DL Albumin 4.1 3.2-4.5 GM/DL Urine Color YELLOW Urine Clarity CLEAR Urine pH 7 5-9 Urine Specific [place] 1.010 L 1.016-1.022 Urine Protein 2+ H NEGATIVE Urine Glucose (UA) 2+ H NEGATIVE Urine Ketones 1+ H NEGATIVE Urine Nitrite NEGATIVE NEGATIVE Urine Bilirubin NEGATIVE NEGATIVE Urine Urobilinogen NORMAL NORMAL MG/DL Urine Leukocyte Esterase NEGATIVE NEGATIVE Urine RBC (Auto) 1+ H NEGATIVE Urine RBC 0-2 /HPF Urine WBC RARE /HPF Urine Squamous Epithelial Cells RARE /HPF Urine Crystals NONE /LPF Urine Bacteria NEGATIVE /HPF Urine Casts PRESENT /LPF Urine Hyaline Casts 0-2 H /LPF Urine Mucus NEGATIVE /LPF Urine Culture Indicated CULTURE PENDING Lactic Acid Level 3.80 *H 0.50-2.00 MMOL/L My Orders Orders - [facility]A HE[facility] MD Cbc With Automated Diff (04/05/19 15:55) Magnesium (04/05/19 15:55) Chest 1 View, Ap/Pa Only (04/05/19 15:55) Ekg Tracing (04/05/19 15:55) Cardiac Profile 1 (04/05/19 15:55) Comprehensive Metabolic Panel (04/05/19 15:55) Myoglobin Serum (04/05/19 15:55) Protime With Inr (04/05/19 15:55) Partial Thromboplastin Time (04/05/19 15:55) O2 (04/05/19 15:55) Monitor-Rhythm Ecg Trace Only (04/05/19 15:55) Lipid Panel (04/06/19 06:00) Ed Iv/Invasive Line Start (04/05/19 15:55) Ns Iv 500 Ml (Sodium Chloride 0.9%) (04/05/19 15:55) Blood Culture (04/05/19 16:02) Sputum Culture (04/05/19 16:02) Urinalysis (04/05/19 16:02) Urine Culture (04/05/19 16:02) Vital Signs Adult Sepsis Patie Q15M (04/05/19 16:02) Remove Rings In Anticipation O (04/05/19 16:02) Lactic Acid Analyzer (04/05/19 16:02) Ns (Ivpb) (Sodium C... W/Diltiazem Iv Fo (04/05/19 16:15) Diltiazem Injection (Cardizem Injection) (04/05/19 16:15) Ondansetron Injection (Zofran Injectio (04/05/19 16:30) Ed Iv/Invasive Line Start (04/05/19 16:34) Ns Iv 1000 Ml (Sodium Chloride 0.9%) (04/05/19 16:34) Medications Given in ED Current Medications Medications Dose Ordered Sig/Tresa Route Start Time Stop Time Status Last Admin Dose Admin Diltiazem HCl 10 mg ONCE ONCE IVP 04/05/19 16:15 04/05/19 16:16 DC 04/05/19 16:28 10 MG Ondansetron HCl 4 mg ONCE ONCE IVP 04/05/19 16:30 04/05/19 16:31 DC 04/05/19 16:25 4 MG Sodium Chloride 500 ml @ 0 mls/hr Q0M ONCE IV 04/05/19 15:55 04/05/19 15:57 DC 04/05/19 16:26 500 MLS/HR Sodium Chloride 1,000 ml @ 0 mls/hr Q0M ONCE IV 04/05/19 16:34 04/05/19 16:35 DC 04/05/19 16:58 1,000 MLS/HR Vital Signs/I&O 04/05/19 04/05/19 04/05/19 15:48 15:50 16:33 Temp 35.5 Pulse 146 Resp 24 B/P (MAP) 108/72 (84) 108/72 Pulse Ox 94 95 O2 Delivery Room Air Nasal Cannula O2 Flow Rate 5.00 Progress Progress Note : Progress Note Seen and evaluated. IV, labs, chest x-ray, EKG, UA, urine culture, normal saline 500 mL bolus, Cardizem 10 mg IV bolus followed by 10 mg per hour drip. This was decreased to 5 mg/h she did have some decline in her blood pressure after bolus. Heart rate did resolve after Cardizem to rate in the 70s. We will add another liter of normal saline. UA obtained via straight catheter urine. Monitor patient. 1724: Blood pressure 90s over 60s and patient feels better. Cardizem remains at 5 mg per hour. No indication of infection with negative UA and chest x-ray. Lactic acid is elevated but I believe this is related to hypotension secondary to uncontrolled tachycardia with atrial fibrillation and rapid ventricular response. No indication of high volume fluid resuscitation as she does not currently have sepsis. Troponin slightly elevated as well as myoglobin. We will continue IV fluids as well as Cardizem. Continue Eliquis. I did discuss the case with Dr. Ga. He accepts patient for admission, inpatient status to the ICU. Findings concerns discussed with the patient and family who agree with plan. I have consulted Dr. Mcdonnell, on-call for Dr. Bauman. Initial ECG Impression Date: Apr 05, 2019 Initial ECG Impression Time: 16:41 Initial ECG Rate: 79 Initial ECG Rhythm: A Fib/Flutter Initial ECG Comparisson: Changed Comment Atrial flutter with normal axis. No evidence of ST elevation MO. Change from previous which was junctional tachycardia at a rate of 1:15 and left axis deviation. That was done on 03/02/19. Interpreted by me. Diagnostic Imaging Diagonstic Imaging: Xray Plain Films/CT/US/NM/MRI: chest Comments [facility] [place], [place] NAME: ANUP SUH [facility] REC#: [id number] PT STATUS: REG ER : 1940 PHYSICIAN: MOIRA HEART MD ADMIT DATE: 04/05/19/ER Draft Date of Exam:04/05/19 CHEST 1 VIEW, AP/PA ONLY INDICATION: Shortness of air. TIME OF EXAM: 5:03 PM COMPARISON: Correlation is made with prior chest from 03/03/2019. FINDINGS: The heart size is stable. Cardiac pacemaker remains in place. Lungs are clear. No infiltrate, effusion or pneumothorax is seen. IMPRESSION: No acute cardiopulmonary process is detected. Dictated on workstation # [id number] Dict: 04/05/191711 Trans: 04/05/191714 [id number] Interpreted by: AUGUSTA PERALES MD Electronically signed by: Departure Impression Primary Impression: Atrial fibrillation with rapid ventricular response Additional Impressions: Hypotension Qualified Codes: I95.9 - Hypotension, unspecified Elevated lactic acid level Elevated troponin Disposition: ADMITTED INPATIENT Condition: Stable Admissions Decision to Admit Reason: Admit from ER (General) Decision to Admit/Date: Apr 05, 2019 Time/Decision to Admit Time: 17:24 Departure-Patient Inst. Referrals: JOE ROBERTSON MD (PCP/Family) Primary Care Physician MOIRA HAERT MD Apr 05, 2019 16:40
[2019-04-05 16:43] LABS: INR 1.1 (0.8-1.4); PROTHROMBIN TIME PATIENT 14.7 SEC (12.2-14.7)
--- NOTE | 2019-04-05 17:15 | Diagnostic Imaging Report ---
INDICATION: Shortness of air. TIME OF EXAM: 5:03 PM COMPARISON: Correlation is made with prior chest from 03/03/2019. FINDINGS: The heart size is stable. Cardiac pacemaker remains in place. Lungs are clear. No infiltrate, effusion or pneumothorax is seen. IMPRESSION: No acute cardiopulmonary process is detected. Dictated by: Dictated on workstation # [id number]
[2019-04-05] MEDS ORDERED: NS IV 1000 ML 1,000 ML ONE (18:49)
--- NOTE | 2019-04-05 19:43 | NUR ---
This RN notified Dr. Mcdonnell of decreasing BP with SBP in 80's, Heart rate 60-70's. New orders received at this time.
--- NOTE | 2019-04-05 19:51 | NUR ---
This RN notified Dr. Flaherty of Critical Lactic Acid 2.71, previous Lactic Acid 3.8. New order received at this time.
[2019-04-05] MEDS ORDERED: NS IV 1000 ML 1,000 ML IV SCH (20:00)
[2019-04-05] MEDS ORDERED: CATHETER FLUSH 10 ML SYR IV PRN (20:30)
[2019-04-05] MEDS ORDERED: ONDANSETRON 4 MG/2 ML (SDV) Z0FRAN IV PRN (20:30)
[2019-04-05] MEDS ORDERED: DILTIAZEM 125 MG/NS 100 ML IV SCH ×2 (20:30)
[2019-04-05] MEDS ORDERED: APIXABAN 2.5 MG (ELIQUIS) TABLET PO SCH (21:00)
[2019-04-05] MEDS ORDERED: cefTRIAXone FOR IV USE 1,000 MG in WATER (STERILE) FOR INJECTION 10 ML IV NR (21:00)
[2019-04-05] MEDS: NS IV 1000 ML 1,000 ML IV SCH (21:02)
--- NOTE | 2019-04-05 21:09 | NUR ---
This RN called EICU to notify of decreased BP despite 1L NS bolus, SBP low 90's, urine output 25ml an hour.
[2019-04-05] MEDS ORDERED: NS IV 500 ML 500 ML ONE ×2 (21:12→23:12)
[2019-04-05] MEDS ORDERED: NS IV 500 ML 500 ML IV SCH (21:30)
[2019-04-06] VITALS (22 sets, daily range): BP systolic 80–153; BP diastolic 46–84
--- NOTE | 2019-04-06 01:07 | NUR ---
This RN called EICU to report Critical Troponin at 42.047 and continued decreased urine output, total of 110ml for shift.
--- NOTE | 2019-04-06 01:23 | NUR ---
This RN called Dr. Mcdonnell to notify of critical Troponin of 42.047, decreased urine output of 110ml for shift and soft BP despite fluids given. Notified that when this RN asked pt if she had any chest pain she stated "Not chest pain but mild discomfort". No new orders at this time.
[2019-04-06] MEDS ORDERED: NS IV 500 ML 500 ML IV ONE (02:30)
[2019-04-06 03:25] LABS: BASOPHILS % (AUTO) 0 % (0-10); EOSINOPHILS # (AUTO) 0.1 10^3/uL (0.0-0.3); EOSINOPHILS % (AUTO) 1 % (0-10); HEMATOCRIT 39 % (35-52); HEMOGLOBIN 12.2 G/DL (11.5-16.0); LYMPHOCYTES # (AUTO) 1.5 X 10^3 (1.0-4.0); LYMPHOCYTES % (AUTO) 16 % (12-44); MEAN CORPUSCULAR HEMOGLOBIN 27 PG (25-34); MEAN CORPUSCULAR HGB CONC 31 G/DL (32-36); MEAN CORPUSCULAR VOLUME 85 FL (80-99); MEAN PLATELET VOLUME 9.9 FL (7.4-10.4); MONOCYTES # (AUTO) 0.8 X 10^3 (0.0-1.0); MONOCYTES % (AUTO) 9 % (0-12); NEUTROPHILS # (AUTO) 6.9 X 10^3 (1.8-7.8); NEUTROPHILS % (AUTO) 74 % (42-75); PLATELET COUNT 200 10^3/uL (130-400); RED CELL DISTRIBUTION WIDTH 18.6 % (10.0-14.5); WHITE BLOOD COUNT 9.3 10^3/uL (4.3-11.0)
[2019-04-06 03:43] LABS: CALCIUM 8.1 MG/DL (8.5-10.1); CREATININE SERUM 1.65 MG/DL (0.60-1.30); PHOSPHORUS 3.8 MG/DL (2.3-4.7); POTASSIUM 4.4 MMOL/L (3.6-5.0)
--- NOTE | 2019-04-06 03:48 | NUR ---
Updated EICU on urine output- total of 140ml. No new orders at this time.
--- NOTE | 2019-04-06 03:52 | Pulmonary Consultation ---
MIRELLA HILLMAN,MED STUDENT 04/06/19 0352: History of Present Illness History of Present Illness Date of Consultation 04/06/19 03:41 Time Seen by Provider: 03:41 Date of Admission History of Present Illness Patient is a 79y/o female that presented yesterday to the ED with acute onset nausea vomiting and a fast heart rate. She saw Dr. Gonzales on Thursday because she was not feeling well and felt dehydrated but her labs from Med lab did not show any acute issues and Dr. Gonzales has her go home and drink smart water (according to patient). She saw Dr. Patino yesterday at [facility] in [place] for a lidocaine injection into her L eye. Patient says that when she got back from [place] yesterday she began to nausea and proceed to vomit and became so weak she couldn't move and decided to come to the hospital via ambulance. Patient was recently here is mid february for a UTI and that she has recurrent UTIs. patient says that she has stage 3 CKD and had dialysis yesterday and that she has a history of cardiac problems including A-fib, heart murmur and has a pacemaker. ROS admits to chest tightness, a slight headache,, stomach pain,numbness and tingling and malaise denies fever, chills, nausea, vomiting, Allergies and Home Medications Allergies Coded Allergies: sulfamethoxazole (Verified Allergy, Intermediate, 10/05/15) tramadol (Verified Allergy, Intermediate, 10/05/15) trimethoprim (Verified Allergy, Intermediate, 10/05/15) Penicillins (Verified Allergy, Unknown, 10/05/15) codeine (Verified Allergy, Unknown, CAN TAKE MORPHINE, 10/05/15) hydrocodone (Verified Allergy, Unknown, 10/05/15) amiodarone (Verified Adverse Reaction, Mild, NAUSEA, dizziness, 02/01/16) Home Medications Apixaban 2.5 Mg Tablet, 2.5 MG PO BID Prescribed by: ANALIA WARD on 03/04/19 1135 Cephalexin 500 Mg Capsule, 500 MG PO BID Prescribed by: ANALIA WARD on 03/04/19 1135 Cholecalciferol (Vitamin D3) 5,000 Unit Capsule, 5,000 UNIT PO DAILY, (Reported) Clopidogrel Bisulfate 75 Mg Tablet, 75 MG PO DAILY, (Reported) Cyanocobalamin 1,000 Mcg/Ml Inj, 1,000 MCG IJ MONTHLY, (Reported) Diazepam 5 Mg Tablet, 5 MG PO DAILY PRN for ANXIETY, (Reported) Estrogens Conjugated 30 Gm Cr, VG MoWeFr, (Reported) Insulin Aspart 100 Unit/1 Ml Susp, PER INSULIN PUMP, (Reported) Liraglutide 0.6 Mg/0.1 Ml Pen.injctr, 1.8 MG SC HS, (Reported) Metolazone 2.5 Mg Tablet, 2.5 MG PO MoTh, (Reported) Metoprolol Succinate 25 Mg Tab.er.24h, 12.5 MG PO DAILY, (Reported) TAKES 1/2 (25MG) TABLET Nitroglycerin 0.4 Mg Tab.subl, 0.4 MG SL UD PRN for CHEST PAIN, (Reported) Pantoprazole Sodium 40 Mg Tablet.dr, 40 MG PO HS, (Reported) Potassium Chloride 20 Meq Tab.er.prt, 10 MEQ PO BID, (Reported) TAKES 1/2 (10MEQ) TABLETS Rosuvastatin Calcium 20 Mg Tablet, 20 MG PO HS, (Reported) Torsemide 100 Mg Tablet, 100 MG PO DAILY, (Reported) Past Ujxyuij-Bekmve-Loyvvk Hx Past Med/Social Hx: Reviewed Nursing Past Med/Soc Hx Patient Social History Alcohol Use: Denies Use Recreational Drug Use: No Smoking Status: Never a Smoker 2nd Hand Smoke Exposure: No Recent Foreign Travel: No Contact w/Someone Who Travel: No Recent Infectious Disease Expo: No Recent Hopitalizations: No Physical Abuse: No Sexual Abuse: No Immunizations Up To Date Tetanus Booster (TDap): Less than 5yrs Date of Pneumonia Vaccine: Aug 02, 2018 Date of Influenza Vaccine: May 20, 2018 Seasonal Allergies Seasonal Allergies: No Past Medical History Surgeries: Yes (PACEMAKER, CAROTID ARTERY, HEART CATH-STENTS /ANGIOPLASTY) Cardiac, Coronary Stent, Gallbladder, Hysterectomy, Oophorectomy, Orthopedic, Pacemaker, Vascular Surgery Respiratory: Yes Sleep Apnea Currently Using CPAP: No Currently Using BIPAP: No Cardiac: Yes (PACEMAKER, CHF, STENTS X10) Atrial Fibrillation, Chronic Edema/Swelling, Coronary Artery Disease, Heart Attack, Heart Murmur, High Cholesterol, Hypertension, Peripheral Vascular, Rheumatic Fever Neurological: Yes (TIA AFTER STENT IN JUNE) Neuropathy, TIA Reproductive Disorders: No SURGICAL RESIDENT History: Hysterectomy, Menopausal Sexually Transmitted Disease: No Genitourinary: Yes Bladder Infection, UTI-Chronic Gastrointestinal: Yes C-Diff, Irritable Bowel Musculoskeletal: Yes ( 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 ) Endocrine: Yes (INSULIN PUMP, 3 THYROID NODULES) Diabetes, Insulin dep Cataract Loss of Vision: Left Hearing Impairment: Deaf Cancer: Yes (BREAST CA 2011) Breast Did You Recieve Any Treatments: Yes What Type of Treatment Did You: Radiation Psychosocial: No Integumentary: Yes (DIABETIC FOOT ULCER ON LEFT--PT STATES IS NOW HEALED. ) Blood Disorders: No Adverse Reaction/Blood Tranf: No Family Medical History Reviewed Nursing Family Hx Cardiovascular disease 19 FATHER 19 MOTHER G8 BROTHER G8 SISTER G8 SISTER G8 SISTER Completed stroke 19 FATHER G8 SISTER Diabetes mellitus 19 FATHER G8 SISTER G8 SISTER FH: cancer G8 SISTER G8 SISTER Myocardial infarction G8 BROTHER (65 YEARS OLD) Review of Systems Constitutional: Weakness, Malaise; No: Fever, Chills Eyes: Vision change (Blind in L eye ) Respiratory: Cough; No: Shortness of breath, SOB with excertion, Wheezing Cardiovascular: Chest Pain, Edema, Lt Headedness; No: Palpitations Gastrointestinal: Diarrhea; No: Nausea, Vomiting Genitourinary: Dysuria Neurological: Numbness Sepsis Event Evaluation Height, Weight, BMI Height: 5'6.00" Weight: 215lbs. 0.5oz. 97.258706as; 35.00 BMI Method:Stated Exam Exam Vital Signs Date Time Temp Pulse Resp B/P (MAP) Pulse Ox O2 Delivery O2 Flow Rate FiO2 04/06/19 03:00 77 128/81 (97) 98 Nasal Cannula 2.00 04/06/19 02:09 76 28 127/68 (87) 97 Nasal Cannula 2.00 04/06/19 01:00 75 04/06/19 01:00 75 17 94/55 (68) 96 Nasal Cannula 2.00 04/06/19 00:00 74 12 80/46 (57) 99 Nasal Cannula 2.00 04/05/19 23:46 74 16 96/54 (68) 100 Nasal Cannula 2.00 04/05/19 23:23 35.7 04/05/19 23:00 77 9 98/57 (71) 100 Nasal Cannula 2.00 04/05/19 22:38 68 18 85/41 (56) 99 Nasal Cannula 2.00 04/05/19 22:00 76 10 86/59 (68) 95 Room Air 04/05/19 21:24 75 33 95 Room Air 04/05/19 21:05 74 28 93/54 (67) 100 Nasal Cannula 2.00 04/05/19 21:00 93/62 04/05/19 20:00 36.0 04/05/19 20:00 100 Nasal Cannula 4.00 04/05/19 20:00 73 12 98/55 (69) 100 Nasal Cannula 4.00 04/05/19 19:45 68 9 102/86 (91) 100 Nasal Cannula 4.00 04/05/19 19:30 64 10 84/41 (55) 100 Nasal Cannula 4.00 04/05/19 19:15 64 26 85/51 (62) 100 Nasal Cannula 4.00 04/05/19 19:10 94 Nasal Cannula 4.00 04/05/19 19:00 65 32 90/48 (62) 100 Nasal Cannula 4.00 04/05/19 18:39 65 04/05/19 18:30 68 11 100 Nasal Cannula 4.00 04/05/19 18:30 68 11 100 Nasal Cannula 2.00 04/05/19 18:08 35.5 65 22 101/53 (84) 99 Nasal Cannula 5.00 04/05/19 16:33 108/72 04/05/19 15:50 95 Nasal Cannula 5.00 04/05/19 15:48 35.5 146 24 108/72 (84) 94 Room Air I & O 04/06/19 07:00 Intake Total 3750 ml Output Total 110 ml Balance 3640 ml Height & Weight Height: 5'6.00" Weight: 215lbs. 0.5oz. 97.647506rf; 35.00 BMI Method:Stated General Appearance: WD/WN, Anxious, Chronically ill, Obese, Other (ill- appearing) HEENT: Pharynx Normal Neck: Non Tender, Supple Respiratory: Lungs Clear, Normal Breath Sounds, No Accessory Muscle Use, No Respiratory Distress Cardiovascular: Regular Rate, Rhythm, No Edema, No Gallop, No JVD, Normal Peripheral Pulses, Systolic Murmur Capillary Refill: Less Than 3 Seconds Peripheral Pulses: 2+ Dorsalis Pedis (R), 2+ Left Dors-Pedis (L), 2+ Radial Pulses (R), 2+ Radial Pulses (L) Gastrointestinal: normal bowel sounds, non tender, soft Extremity: Non Tender, No Calf Tenderness, Pedal Edema Neurologic/Psychiatric: Alert, Oriented x3, Normal Mood/Affect Skin: Normal Color, Warm/Dry Results Lab Laboratory Tests 04/05/19 15:55 04/06/19 03:13 Assessment/Plan Assessment/Plan A-fib with RVR - Cardiology consult - Start eliquis BID - she is current on plavix and eliquis; consider using only one due to recent history of L retinal artery bleed - repeat Toponin hypotension - montior and give levophed if SBP drops below 88 or MAP <65 - mild volume replacement with NS Lactic acidosis - resolved CKD CAD sick sinus syndrome recurrent UTIs IDDM Diarrhea 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 Recently seen by Dr. Gonzales labs were WNL. PT found to have elevated troponin and Afib RVR while in the ED. SHe was admitted to ICU and place initially on Cardiem gtt however that is held secondary to controlled rate and hypotension. Urine is concentrated. I am consulted for ICU/Pulmonary management. Allergies and Home Medications Allergies Coded Allergies: sulfamethoxazole (Verified Allergy, Intermediate, 10/05/15) tramadol (Verified Allergy, Intermediate, 10/05/15) trimethoprim (Verified Allergy, Intermediate, 10/05/15) Penicillins (Verified Allergy, Unknown, 10/05/15) codeine (Verified Allergy, Unknown, CAN TAKE MORPHINE, 10/05/15) hydrocodone (Verified Allergy, Unknown, 10/05/15) amiodarone (Verified Adverse Reaction, Mild, NAUSEA, dizziness, 02/01/16) Home Medications Apixaban 2.5 Mg Tablet, 2.5 MG PO BID Prescribed by: ANALIA WARD on 03/04/19 1135 Cephalexin 500 Mg Capsule, 500 MG PO BID Prescribed by: ANALIA WARD on 03/04/19 1135 Cholecalciferol (Vitamin D3) 5,000 Unit Capsule, 5,000 UNIT PO DAILY, (Reported) Clopidogrel Bisulfate 75 Mg Tablet, 75 MG PO DAILY, (Reported) Cyanocobalamin 1,000 Mcg/Ml Inj, 1,000 MCG IJ MONTHLY, (Reported) Diazepam 5 Mg Tablet, 5 MG PO DAILY PRN for ANXIETY, (Reported) Estrogens Conjugated 30 Gm Cr, VG MoWeFr, (Reported) Insulin Aspart 100 Unit/1 Ml Susp, PER INSULIN PUMP, (Reported) Liraglutide 0.6 Mg/0.1 Ml Pen.injctr, 1.8 MG SC HS, (Reported) Metolazone 2.5 Mg Tablet, 2.5 MG PO MoTh, (Reported) Metoprolol Succinate 25 Mg Tab.er.24h, 12.5 MG PO DAILY, (Reported) TAKES 1/2 (25MG) TABLET Nitroglycerin 0.4 Mg Tab.subl, 0.4 MG SL UD PRN for CHEST PAIN, (Reported) Pantoprazole Sodium 40 Mg Tablet.dr, 40 MG PO HS, (Reported) Potassium Chloride 20 Meq Tab.er.prt, 10 MEQ PO BID, (Reported) TAKES 1/2 (10MEQ) TABLETS Rosuvastatin Calcium 20 Mg Tablet, 20 MG PO HS, (Reported) Torsemide 100 Mg Tablet, 100 MG PO DAILY, (Reported) Past Wgividx-Nccrri-Sckmhi Hx Family Medical History Cardiovascular disease 19 FATHER 19 MOTHER G8 BROTHER G8 SISTER G8 SISTER G8 SISTER Completed stroke 19 FATHER G8 SISTER Diabetes mellitus 19 FATHER G8 SISTER G8 SISTER FH: cancer G8 SISTER G8 SISTER Myocardial infarction G8 BROTHER (65 YEARS OLD) Review of Systems Constitutional: Weakness, Malaise; No: Fever, Chills Eyes: Vision change (Blind in L eye ) Respiratory: Cough; No: Shortness of breath, SOB with excertion, Wheezing Cardiovascular: Chest Pain, Edema, Lt Headedness; No: Palpitations Gastrointestinal: Diarrhea; No: Nausea, Vomiting Neurological: Numbness Exam Exam General Appearance: Anxious, Chronically ill, Obese, Other (ill-appearing) HEENT: Pharynx Normal Neck: Non Tender, Supple Respiratory: Lungs Clear, Normal Breath Sounds, No Accessory Muscle Use, No Respiratory Distress Cardiovascular: Regular Rate, Rhythm, No Edema, No Gallop, No JVD, Normal Peripheral Pulses Gastrointestinal: normal bowel sounds, non tender, soft Extremity: Non Tender, No Calf Tenderness, Pedal Edema Neurologic/Psychiatric: Alert, Oriented x3, Normal Mood/Affect Skin: Normal Color, Warm/Dry Assessment/Plan Assessment/Plan Afib RVR with elevated troponin -Cardizem gtt - currently on hold -Cardiology consulted -Currently on Eliquis and Plavix -Possible heart cath this morning Hypotension with decreased UO -Give another liter NS bolus -Increase IVF to 150 Metabolic lactic acidosis -Increase IVF -monitor LA Acute on chronic renal failure with decreased UO -IVF 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
--- NOTE | 2019-04-06 04:32 | NUR ---
Midnight Lopressor held due to blood pressure, per EICU.
[2019-04-06] MEDS: NS IV 1000 ML 1,000 ML IV SCH ×2 (04:35→11:29)
[2019-04-06] MEDS ORDERED: NS IV 1000 ML 1,000 ML IV SCH ×2 (05:00→12:00)
[2019-04-06] MEDS: inSUlin ASPART (NovoLOG) 1 UNIT/0.01 ML (CHARGE PER UNIT) SC SCH ×2 (05:48→13:09)
[2019-04-06] MEDS ORDERED: MAGNESIUM 1 GM/100 ML IVPB 100 ML IV SCH (06:00)
[2019-04-06] MEDS ORDERED: POTASSIUM CL 10MEQ/50ML IVPB 50 ML IV SCH (06:00)
[2019-04-06] MEDS ORDERED: KCL 20 MEQ TAB (K-DUR) PO SCH (06:00)
[2019-04-06] MEDS ORDERED: PROMETHAZINE INJ 25 MG/ML (PHENERGAN) AMP ONE (06:20)
[2019-04-06] MEDS ORDERED: NITROGLYCERIN 0.4 MG SL TABS BTL 25'S SL ONE (06:24)
[2019-04-06] MEDS ORDERED: morphine INJ 4 MG/ML 1 ML (VIAL/SYRINGE) ONE (06:28)
[2019-04-06] MEDS ORDERED: morphine INJ 4 MG/ML 1 ML (VIAL/SYRINGE) IVP PRN (06:45)
[2019-04-06] MEDS ORDERED: NITROGLYCERIN 0.4 MG SL TABS BTL 25'S SL PRN (06:45)
[2019-04-06 06:52] LABS: AMYLASE 26 U/L (25-125); LIPASE 9 U/L (8-78)
--- NOTE | 2019-04-06 07:23 | Diagnostic Imaging Report ---
PROCEDURE: CT head without contrast. TECHNIQUE: Multiple contiguous axial images were obtained through the brain without the use of intravenous contrast. Auto Exposure Controls were utilized during the CT exam to meet ALARA standards for radiation dose reduction. INDICATION: Altered mental status. FINDINGS: No evidence of intracranial hemorrhage. Ventricles and cortical gyral pattern are normal. No mass effect. No extra-axial fluid collection. There are periventricular white matter changes noted bilaterally. Basal cisterns are clear. CP angles are normal. Mastoid air cells clear. No calvarial fracture. IMPRESSION: 1. No acute abnormalities when compared with 02/02/2019. 2. Chronic white matter changes consistent with small vessel disease. These findings are concordant with the preliminary report. Dictated by: Dictated on workstation # [id number]
[2019-04-06] MEDS ORDERED: HEParin DRIP 25000 UNIT/500ML 500 ML IV SCH (07:49)
--- NOTE | 2019-04-06 07:58 | Consultation-Cardiology ---
HPI-Cardiology Cardiology Consultation Date of Consultation 04/06/19 Date of Admission Time Seen by Provider: 07:49 Indication: change in mental status, hypotension HPI 79 years old lady with extensive history of coronary artery disease multiple interventions in the past, has history of chronic atrial fibrillation and has been having difficulty with maintaining her blood pressure, has been having orthostatic dizziness and hypotension, receiving IV fluid, received an injection in her eye yesterday, started to have nausea and vomiting, was lethargic, brought by ambulance and it was reported that she was tachycardic in the ambulance. During her arrival to the emergency room her heart rate was controlled but she has been hypotensive, she had the blood pressure as low as 65 systolic. Receiving IV fluid. He started to have back pain. Denied any chest pain. This morning she became more lethargic, fatigued, had some numbness in her left arm and slight facial droop. Had a CT scan done and did not show any active bleed. Currently she is lethargic, restless. Responding appropriately with difficulties. Denied any active pain. No back pain or chest pain. No nausea or vomiting. Home Medications & Allergies Allergies: Coded Allergies: sulfamethoxazole (Verified Allergy, Intermediate, 10/05/15) tramadol (Verified Allergy, Intermediate, 10/05/15) trimethoprim (Verified Allergy, Intermediate, 10/05/15) Penicillins (Verified Allergy, Unknown, 10/05/15) codeine (Verified Allergy, Unknown, CAN TAKE MORPHINE, 10/05/15) hydrocodone (Verified Allergy, Unknown, 10/05/15) amiodarone (Verified Adverse Reaction, Mild, NAUSEA, dizziness, 02/01/16) Home Medication List Reviewed: Yes [id number] Hx Patient Social History Marital Status: Employed/Student: retired Alcohol Use: Denies Use Recreational Drug Use: No Smoking Status: Never a Smoker 2nd Hand Smoke Exposure: No Recent Foreign Travel: No Recent Infectious Disease Expo: No Recent Hopitalizations: No Immunizations Up To Date Tetanus Booster (TDap): Less than 5yrs Date of Pneumonia Vaccine: Aug 02, 2018 Date of Influenza Vaccine: May 20, 2018 Past Medical History Discussed below Family Medical History Family History: Cardiovascular disease 19 FATHER 19 MOTHER G8 BROTHER G8 SISTER G8 SISTER G8 SISTER Completed stroke 19 FATHER G8 SISTER Diabetes mellitus 19 FATHER G8 SISTER G8 SISTER FH: cancer G8 SISTER G8 SISTER Myocardial infarction G8 BROTHER (65 YEARS OLD) Review of Systems-General Review of Systems Constitutional: see HPI, dizziness; No fever; malaise, weakness EENTM: see HPI, other (blind in her left eye) Respiratory: see HPI; No cough; dyspnea on exertion; No hemoptysis, No orthopnea, No phlegm; short of breath; No stridor, No wheezing, No other Cardiovascular: see HPI; No chest pain; edema; No Hx of Intervention, No palpitations, No syncope, No vascular heart diseas; other (orthostatic dizziness) Gastrointestinal: no symptoms reported, see HPI Genitourinary: see HPI Musculoskeletal: see HPI, back pain Skin: see HPI Psychiatric/Neurological: See HPI All Other Systems Reviewed Negative Unless Noted: Yes Reviewed Test Results Reviewed Test Results Lab Laboratory Tests Test 04/05/19 15:55 04/05/19 16:15 04/05/19 16:22 04/05/19 18:25 Range/Units White Blood Count 10.2 4.3-11.0 10^3/uL Red Blood Count 5.23 4.35-5.85 10^6/uL Hemoglobin 14.0 11.5-16.0 G/DL Hematocrit 43 35-52 % Mean Corpuscular Volume 83 80-99 FL Mean Corpuscular Hemoglobin 27 25-34 PG Mean Corpuscular Hemoglobin Concent 32 32-36 G/DL Red Cell Distribution Width 18.6 H 10.0-14.5 % Platelet Count 245 130-400 10^3/uL Mean Platelet Volume 10.0 7.4-10.4 FL Neutrophils (%) (Auto) 73 42-75 % Lymphocytes (%) (Auto) 19 12-44 % Monocytes (%) (Auto) 7 0-12 % Eosinophils (%) (Auto) 1 0-10 % Basophils (%) (Auto) 0 0-10 % Neutrophils # (Auto) 7.5 1.8-7.8 X 10^3 Lymphocytes # (Auto) 1.9 1.0-4.0 X 10^3 Monocytes # (Auto) 0.7 0.0-1.0 X 10^3 Eosinophils # (Auto) 0.1 0.0-0.3 10^3/uL Basophils # (Auto) 0.0 0.0-0.1 10^3/uL Prothrombin Time 14.7 12.2-14.7 SEC INR Comment 1.1 0.8-1.4 Activated Partial Thromboplast Time 29 24-35 SEC Sodium Level 140 135-145 MMOL/L Potassium Level 4.2 3.6-5.0 MMOL/L Chloride Level 97 L 98-107 MMOL/L Carbon Dioxide Level 26 21-32 MMOL/L Anion Gap 17 H 5-14 MMOL/L Blood Urea Nitrogen 23 H 7-18 MG/DL Creatinine 2.08 H 0.60-1.30 MG/DL Estimat Glomerular Filtration Rate 23 BUN/Creatinine Ratio 11 Glucose Level 231 H 70-105 MG/DL Calcium Level 9.7 8.5-10.1 MG/DL Corrected Calcium 9.6 8.5-10.1 MG/DL Magnesium Level 2.2 1.6-2.4 MG/DL Total Bilirubin 0.6 0.1-1.0 MG/DL Aspartate Amino Transf (AST/SGOT) 23 5-34 U/L Alanine Aminotransferase (ALT/SGPT) 17 0-55 U/L Alkaline Phosphatase 95 40-136 U/L Myoglobin 160.5 H 10.0-92.0 NG/ML Troponin I 0.096 H <0.028 NG/ML Total Protein 7.9 6.4-8.2 GM/DL Albumin 4.1 3.2-4.5 GM/DL Urine Color YELLOW Urine Clarity CLEAR Urine pH 7 5-9 Urine Specific [place] 1.010 L 1.016-1.022 Urine Protein 2+ H NEGATIVE Urine Glucose (UA) 2+ H NEGATIVE Urine Ketones 1+ H NEGATIVE Urine Nitrite NEGATIVE NEGATIVE Urine Bilirubin NEGATIVE NEGATIVE Urine Urobilinogen NORMAL NORMAL MG/DL Urine Leukocyte Esterase NEGATIVE NEGATIVE Urine RBC (Auto) 1+ H NEGATIVE Urine RBC 0-2 /HPF Urine WBC RARE /HPF Urine Squamous Epithelial Cells RARE /HPF Urine Crystals NONE /LPF Urine Bacteria NEGATIVE /HPF Urine Casts PRESENT /LPF Urine Hyaline Casts 0-2 H /LPF Urine Mucus NEGATIVE /LPF Urine Culture Indicated CULTURE PENDING Lactic Acid Level 3.80 *H 2.71 *H 0.50-2.00 MMOL/L Test 04/05/19 20:56 04/06/19 00:28 9/18/19 03:13 04/06/19 03:18 Range/Units Glucometer 210 H 70-110 MG/DL Troponin I 42.047 *H <0.028 NG/ML White Blood Count 9.3 4.3-11.0 10^3/uL Red Blood Count 4.61 4.35-5.85 10^6/uL Hemoglobin 12.2 11.5-16.0 G/DL Hematocrit 39 35-52 % Mean Corpuscular Volume 85 80-99 FL Mean Corpuscular Hemoglobin 27 25-34 PG Mean Corpuscular Hemoglobin Concent 31 L 32-36 G/DL Red Cell Distribution Width 18.6 H 10.0-14.5 % Platelet Count 200 130-400 10^3/uL Mean Platelet Volume 9.9 7.4-10.4 FL Neutrophils (%) (Auto) 74 42-75 % Lymphocytes (%) (Auto) 16 12-44 % Monocytes (%) (Auto) 9 0-12 % Eosinophils (%) (Auto) 1 0-10 % Basophils (%) (Auto) 0 0-10 % Neutrophils # (Auto) 6.9 1.8-7.8 X 10^3 Lymphocytes # (Auto) 1.5 1.0-4.0 X 10^3 Monocytes # (Auto) 0.8 0.0-1.0 X 10^3 Eosinophils # (Auto) 0.1 0.0-0.3 10^3/uL Basophils # (Auto) 0.0 0.0-0.1 10^3/uL Sodium Level 136 135-145 MMOL/L Potassium Level 4.4 3.6-5.0 MMOL/L Chloride Level 106 98-107 MMOL/L Carbon Dioxide Level 23 21-32 MMOL/L Anion Gap 7 5-14 MMOL/L Blood Urea Nitrogen 22 H 7-18 MG/DL Creatinine 1.65 H 0.60-1.30 MG/DL Estimat Glomerular Filtration Rate 30 BUN/Creatinine Ratio 13 Glucose Level 155 H 70-105 MG/DL Calcium Level 8.1 L 8.5-10.1 MG/DL Phosphorus Level 3.8 2.3-4.7 MG/DL Magnesium Level 2.0 1.6-2.4 MG/DL Amylase Level 26 25-125 U/L Lipase 9 8-78 U/L Lactic Acid Level 1.89 0.50-2.00 MMOL/L Test 04/06/19 06:00 04/06/19 06:29 Range/Units Troponin I 60.439 *H <0.028 NG/ML Triglycerides Level 156 H <150 MG/DL Cholesterol Level 94 < 200 MG/DL LDL Cholesterol Direct 46 1-129 MG/DL VLDL Cholesterol 31 5-40 MG/DL HDL Cholesterol 26 L 40-60 MG/DL Glucometer 160 H 70-110 MG/DL Physical Exam Physical Exam Vital Signs Vital Signs - First Documented 04/05/19 04/05/19 15:48 15:50 Temp 35.5 Pulse 146 Resp 24 B/P (MAP) 108/72 (84) Pulse Ox 94 O2 Delivery Room Air O2 Flow Rate 5.00 Capillary Refill : Less Than 3 Seconds Height, Weight, BMI Height: 5'6.00" Weight: 223lbs. 0.5oz. 101.581639po; 35.00 BMI Method:Stated General Appearance: Anxious, Chronically ill, Obese, Severe Distress, Other (ill-appearing) HEENT: Pharynx Normal Neck: Non Tender, Supple Respiratory: Normal Breath Sounds, No Accessory Muscle Use, No Respiratory Distress, Crackles Cardiovascular: No Edema, No Gallop, No JVD, Normal Peripheral Pulses, Systolic Murmur Gastrointestinal: Non Tender, Soft Extremity: Non Tender, No Calf Tenderness, Pedal Edema Neurologic/Psychiatric: Alert, Oriented x3, Normal Mood/Affect, Other (restless, following commands) Skin: Normal Color, Warm/Dry A/P-Cardiology Admission Diagnosis Hypotensive shock Acute myocardial infarction, non-ST elevation SC Change in mental status Paroxysmal atrial fibrillation Assessment/Plan Hypotensive shock, had systolic blood pressure in the 80s and 90s overnight, had a reported systolic blood pressure in the 60s at one point, better at this time. Still lethargic and restless. Receiving IV fluid. Slight facial droop and numbness, CT scan of the head reported as no active bleed. Patient was started on aspirin and heparin drip Acute myocardial infarction, non-ST elevation myocardial infarction, probably extensive coronary artery disease in addition to the severe hypotension will need a cardiac catheterization once patient's mental status is slightly better. Risk of renal failure was discussed. Coronary artery disease, multiple interventions in the past, reports a total of 11 stents. Multivessel disease. Cardiac catheterization was done in October 2012 showing severe stenosis in the midright coronary artery had stent deployed 3.0x24 mm Promus elements stent expanded to 3.18 mm in the right coronary artery. Severe stenosis in the proximal diagonal artery, very small artery not amendable to intervention. 60 percent in-stent restenosis in the mid circumflex artery, underwent another cardiac catheterization on November 19, [address] Burch, had a stent to the circumflex artery, the stent sizes was not described in the report. Most recent cardiac catheterization done December 26, 2016 with balloon angioplasty to the mid circumflex for 80 percent in-stent restenosis. Patient was brought back the same day where she underwent repeat cardiac catheterization after having chest pain, underwent another balloon angioplasty and stent deployment in the distal circumflex artery for recoil of the in-stent restenosis with the use of a new stent, 3.5 x 18 mm Xience Alpine stent. Excellent results. Maintained on Plavix and aspirin. Continue on current medications and monitor Paroxysmal atrial fibrillation/flutter, was tachycardic on arrival to the emergency room, heart rate is better. Continue to monitor closely next Patient has been on Eliquis 2.5 mg twice daily, I will stop Eliquis, start aspirin and heparin drip at this point. Monitor closely Generalized weakness and lethargy, change in mental status. Monitored closely. Acute on chronic renal insufficiency stage IV, receiving IV fluid, slight improvement. Recurrent dizziness and orthostatic hypotension. Continue to monitor Moderate to severe aortic valve stenosis, valve area 1.0 cm per echo in January 2019 Echocardiogram done in January 2019 showing normal left ventricular size and function with ejection fraction 70-75 percent, dilated left atrium, moderate to severe aortic valve stenosis, pulmonary hypertension with PA pressure of 40-45 mmHg, planning to repeat 2-D echo Hyperlipidemia, patient reports intolerance to Lipitor, has been tolerating Crestor, continue to monitor lipids Diabetes mellitus, followed and managed by primary care physician. Sick sinus syndrome, history of permanent pacemaker placement. Vivity Labstronic device, continue to monitor Carotid stenosis, history of right carotid endarterectomy. CTA of neck done on February 01, 2016 revealed no significant stenosis in the internal carotid arteries. Prominent focus of stenosis in the distal aspect of the left vertebral artery at the foramen magnum and level dominant right vertebral artery demonstrates no significant stenosis. Carotid ultrasound in January 2017 showed mild bilateral disease. Continue to monitor. Peripheral vascular disease, history of nonhealing foot ulcer, had a stent placed this year, last BARRY was done in April 2016. Continue to monitor. Intolerance to amiodarone. 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 followed by Dr. Palomino, currently in remission. Clinical Quality Measures AMI/AHF: ASA po Prior to arrival: Yes DVT/VTE Risk/Contraindication: Risk Factor Score Per Nursin RFS Level Per Nursing on Admit: 4+=Very High DIMPLE NOVOA MD Apr 06, 2019 07:58
[2019-04-06] MEDS ORDERED: HEParin 1000 UNIT/ML (10ML VIAL) FOR BOLUS IV PRN (08:00)
[2019-04-06] MEDS ORDERED: ASPIRIN E.C. 325 MG (ECOTRIN) TABLET PO NR (08:00)
[2019-04-06] MEDS ORDERED: ASPIRIN E.C. 325 MG (ECOTRIN) TABLET PO ONE (08:00)
--- NOTE | 2019-04-06 08:29 | NUR ---
Timeline Note: 0615 pt c/o of severe back pain 01/26, left arm numbness, tingling and weakness. Dr. Topete notified. 0616 Dr. Topete at bedside 0625 Phenergan 25mg IV given at this time per Dr. Topete. 0628 Pt speech slurred, facial droop and stroke code initiated. Patient taken for STAT head CT at this time. 0650- Pt in Head CT. Critical Troponin of 60.[address] Bauman at this time. 0700- Pt back to room.
[2019-04-06] MEDS ORDERED: ONDANSETRON 4 MG/2 ML (SDV) Z0FRAN IVP PRN (08:30)
[2019-04-06] MEDS ORDERED: HEParin 1000 UNIT/ML (10ML VIAL) FOR BOLUS IV SCH (08:30)
--- NOTE | 2019-04-06 08:47 | Diagnostic Imaging Report ---
INDICATION: Atrial fibrillation, hypertension. TIME OF EXAM: 03:19 a.m. COMPARISON: Correlation is made with prior chest from one day earlier. FINDINGS: Cardiac pacemaker remains in place with lead tips in the region of the right atrium and right ventricle. Heart size is stable. The lungs are clear. No infiltrate or evidence of congestive failure is identified. No effusion or pneumothorax is detected. IMPRESSION: Stable chest. No acute cardiopulmonary process is detected. Dictated by: Dictated on workstation # [id number]
[2019-04-06] MEDS ORDERED: CLOPIDOGREL 75 MG (PLAVIX) TABLET PO SCH (09:00)
[2019-04-06] MEDS ORDERED: HEParin 1000 UNIT/ML (10ML VIAL) FOR BOLUS ONE (09:20)
[2019-04-06 09:25] LABS: HEMOGLOBIN 12.3 G/DL (11.5-16.0); MEAN PLATELET VOLUME 10.2 FL (7.4-10.4); RED CELL DISTRIBUTION WIDTH 18.7 % (10.0-14.5); WHITE BLOOD COUNT 10.3 10^3/uL (4.3-11.0)
[2019-04-06] MEDS ORDERED: APIX2.5T PO (09:25)
[2019-04-06] MEDS ORDERED: ALLO100T PO (09:25)
--- NOTE | 2019-04-06 09:36 | NUR ---
Heparin bolus of 5000units give IV per protocol. Heparin gtt started at 20 ml per hour per protocol. Verified with Mandy MOJICA.
[2019-04-06 09:51] LABS: INR 1.3 (0.8-1.4); PROTHROMBIN TIME PATIENT 17.1 SEC (12.2-14.7)
--- NOTE | 2019-04-06 09:51 | NUR ---
SPOKE WITH THE PATIENT AND GRANDDAUGHTER ABOUT MEDICATIONS. THEY REPORT THE ONLY CHANGES THAT HAVE BEEN MADE SINCE HER LAST ADMISSION IS THE ARE CUTTING THE TORSEMIDE IN HALF AND SWITCHED THE 1/2 TAB OF METOPROLOL FROM AM TO PM. SHE HAS ALSO RESUMED TAKING THE ALLOPURINOL. TORSEMIDE WAS LAST FILLED 100MG #30 FOR 30 DAYS 02-23-19 - HOWEVER SHE STATES SHE TAKES 1/2 TAB DAILY NOW. POTASSIUM 20MEQ WAS LAST FILLED #30 FOR 30 DAYS 02-23-19- SHE TAKES 1/2 BID. I NOTED THE PAST DUE FILL DATE.
[2019-04-06] MEDS ORDERED: LIDOCAINE 1% INJ 20 ML 20 ML VIAL ONE (10:03)
[2019-04-06] MEDS ORDERED: HEParin (CATH LAB) 2,000 ML IV ONE (10:03)
--- NOTE | 2019-04-06 10:13 | NUR ---
Initial visit: pt's grand daughter was tearful. She was observed by staff, who requested tug hand support. Pt's daughter and sister were present and supportive. The pt alert and disoriented at this time. I facilitated communication between the RN and the family regarding reason for waiting period before procedure: the RN helpfully shared that the pt would have her heart cath once demonstrating she is oriented enough to remain still for the required length of time, to avoid life-threatening complications. I offered compassionate and calming presence for the pt and her family.
[2019-04-06] MEDS ORDERED: DOPamine DRIP 250 ML IV ONE (10:50)
[2019-04-06] MEDS ORDERED: DOPamine DRIP 250 ML IV SCH (11:00)
--- NOTE | 2019-04-06 11:04 | NUR ---
Pt taken via bed to medical laboratory scientist with medical laboratory scientist staff X2. Pt was resting with eyes closed but opens and conversates with verbal stimuli. VO received by Dr. Bauman to start dopamine gtt for hypotension. Recheck of pts bp shows 116/83 HR 84. Dopamine gtt was sent with medical laboratory scientist but not started by this RN. Heparin gtt was stopped at [address] Bauman verbal order. Pt had multiple family members in the room that left with medical laboratory scientist. Pts daughter and grandaughter are aware she is being taken down now.
[2019-04-06] MEDS ORDERED: NS IV 1000 ML 1,000 ML ONE (11:07)
[2019-04-06] MEDS ORDERED: PATIENT MAY USE OWN MEDS, ALL PO SCH (12:00)
--- NOTE | 2019-04-06 12:10 | Cardiac Cath Report ---
Cardiac Cath Report Physician (s)/Remote Control Assembler (s) Physician DIMPLE NOVOA MD Pre-Procedure Diagnosis Pre-Procedure Diagnosis: coronary artery disease Post-Procedure Note Procedure Start Date: Apr 06, 2019 Name of Procedure: Left heart catheterization Findings/Procedure Note PROCEDURE NOTE: 79 years old lady admitted with non-ST elevation myocardial infarction, has been hypotensive, had change in mental status. Brought for cardiac catheterization possible PTCA. After explaining the procedure to the patient, all pros and cons were explained, all questions were answered. The patient signed the consent and then she was placed on the cardiac catheterization laboratory. Groin was prepped SL fashion local anesthesia was used. Sheath placed in the artery. Diana right and left catheter were used to access the coronary system. Diana right was advanced to the left ventricular cavity pressure was measured, pullback LV to aorta was done. At the end of the procedure the sheath was removed. Closure device was used FINDINGS: Hemodynamics LV 183/28, end-diastolic pressure 28 Aorta 122/59 mean of 83 ANATOMY: Left Main is free of obstructive disease Left Anterior Descending had 80 percent ostial/proximal stenosis, multiple stents in the LAD with akge-di-crfszcco disease Left Circumflex is moderate in size with multiple stents, one area of 80 percent stenosis in the mid circumflex artery Right Coronary Artery is moderate in size with moderate severe disease distally nonobstructive disease LV Gram was not done, pressure was measured CONCLUSION: 1. Critical aortic valve stenosis with pressure gradient during pullback to 60 mmHg 2. Severe ostial LAD stenosis, multiple stents in the LAD 3. Moderate to severe mid in-stent restenosis in the circumflex artery 4. Moderate distal right coronary artery stenosis 5. Elevated left ventricular end-diastolic pressure DISCUSSION AND RECOMMENDATION: I am planning to transfer the patient to a tertiary care center for evaluation for possible valve replacement and bypass surgery Anesthesia Type: Conscious Sedation Estimated blood loss (mL): 25 ml Contrast Amount: 32 ml Total Radiation Dose: 472 mGy Post-Procedure Diagnosis Post-operative diagnosis: Non-ST elevation myocardial infarction Coronary artery disease Critical aortic valve stenosis Hypotension DIMPLE NOVOA MD Apr 06, 2019 12:10
--- NOTE | 2019-04-06 12:17 | NUR ---
Pt returns from lab technician. She is a/o x 3. Right groin site benign. Ice chips given per patient request. Vitals are stable. Dopamine gtt never used in lab technician. Heparin gtt on hold.
--- NOTE | 2019-04-06 17:14 | History & Physical-Hospitalist ---
History of Present Illness HPI/Chief Complaint Shamika Cain is an 79-year-old female with past medical history of hypertension, type II diabetes mellitus, coronary artery disease, peripheral artery disease, cerebrovascular disease, gout, who presented with nausea and vomiting. She had undergone an injection in her eye yesterday due to some sort of vision loss. She is unable to provide a an accurate history due to her current mental status. Her daughter and granddaughter at the bedside and assist with some of the history. They report that she is in her normal state of health 2 days ago. There reported that today she has been talking with them and she has not been confused. The nursing staff reports issues with delirium overnight. Source: patient, family Exam Limitations: clinical condition Date Seen 04/06/19 Time Seen by a Provider: 08:30 Attending Physician Cris Walden MD PCP Rashaun Gonzales MD Referring Physician Date of Admission Apr 05, 2019 at 17:24 Home Medications & Allergies Home Medications Reviewed patient Home Medication Reconciliation performed by pharmacy medication reconciliations emergency medical technician basic and/or nursing. Patients Allergies have been reviewed. Allergies Allergies Coded Allergies sulfamethoxazole (Verified Allergy, Intermediate, 10/05/15) tramadol (Verified Allergy, Intermediate, 10/05/15) trimethoprim (Verified Allergy, Intermediate, 10/05/15) Penicillins (Verified Allergy, Unknown, 10/05/15) codeine (Verified Allergy, Unknown, CAN TAKE MORPHINE, 10/05/15) hydrocodone (Verified Allergy, Unknown, 10/05/15) amiodarone (Verified Adverse Reaction, Mild, NAUSEA, dizziness, 02/01/16) Past Hfgavzb-Frlpmd-Yoaqlj Hx Past Med/Social Hx: Reviewed Nursing Past Med/Soc Hx Patient Social History Marrital Status: Employed/Student: retired Alcohol Use: Denies Use Recreational Drug Use: No Smoking Status: Never a Smoker 2nd Hand Smoke Exposure: No Recent Foreign Travel: No Contact w/other who traveled: No Recent Hopitalizations: No Recent Infectious Disease Expo: No Immunizations Up To Date Tetanus Booster (TDap): Less than 5yrs Date of Pneumonia Vaccine: Aug 02, 2018 Date of Influenza Vaccine: May 20, 2018 Seasonal Allergies Seasonal Allergies: No Past Medical History Surgeries: Cardiac, Coronary Stent, Gallbladder, Hysterectomy, Oophorectomy, Orthopedic, Pacemaker, Vascular Surgery Currently Using CPAP: No Currently Using BIPAP: No Cardiac: Atrial Fibrillation, Chronic Edema/Swelling, Coronary Artery Disease, Heart Attack, Heart Murmur, High Cholesterol, Hypertension, Peripheral Vascular, Rheumatic Fever Neurological: Neuropathy, TIA Reproductive: No Sexually Transmitted Disease: No Hysterectomy, Menopausal Genitourinary: Bladder Infection, UTI-Chronic Gastrointestinal: C-Diff, Irritable Bowel Endocrine: Diabetes, Insulin dep HEENT: Cataract Loss of Vision: Left Hearing Impairment: Deaf Cancer: Breast Did You Recieve Any Treatments: Yes What Type of Treatment Did You: Radiation History of Blood Disorders: No Adverse Reaction to Blood High: No Family History Reviewed Nursing Family Hx Cardiovascular disease 19 FATHER 19 MOTHER G8 BROTHER G8 SISTER G8 SISTER G8 SISTER Completed stroke 19 FATHER G8 SISTER Diabetes mellitus 19 FATHER G8 SISTER G8 SISTER FH: cancer G8 SISTER G8 SISTER Myocardial infarction G8 BROTHER (65 YEARS OLD) Review of Systems Constitutional: see HPI Physical Exam Physical Exam Vital Signs Vital Signs - First Documented 04/05/19 04/05/19 15:48 15:50 Temp 35.5 Pulse 146 Resp 24 B/P (MAP) 108/72 (84) Pulse Ox 94 O2 Delivery Room Air O2 Flow Rate 5.00 Capillary Refill : Less Than 3 Seconds Height, Weight, BMI Height: 5'6.00" Weight: 223lbs. 0.5oz. 101.672938pi; 35.00 BMI Method:Stated General Appearance: Mild Distress, Other (Uncomfortable) Neck: Normal Inspection, Supple Respiratory: Lungs Clear, Normal Breath Sounds, No Respiratory Distress Cardiovascular: Other (Regular rate, irregular rhythm, systolic murmur heard throughout the precordium) Gastrointestinal: Normal Bowel Sounds, Non Tender, Soft Extremity: Normal Inspection, Non Tender, Pedal Edema Neurologic/Psychiatric: Disoriented, Other (Lethargic) Skin: Normal Color, Warm/Dry Lymphatic: No Adenopathy Results Results/Procedures Labs Laboratory Tests 04/05/19 15:55 04/06/19 03:13 04/06/19 09:15 Patient resulted labs reviewed. Imaging: Reviewed Imaging Report Assessment/Plan Admission Diagnosis Atrial fibrillation with rapid ventricular response Admission Status: Inpatient Order (span 2 midnights) Reason for Inpatient Admission: NSTEMI Assessment and Plan Atrial fibrillation with rapid ventricular response NSTEMI Coronary artery disease Hypertension Hyperlipidemia Started on Cardizem and ER Troponin mildly elevated on admission 0.07, trended upward to 60 this morning Started on aspirin and heparin GTT Cardiology consulted, planning for left heart catheterization today Delirium CT head without acute abnormalities Likely due to the current medical condition Diagnosis/Problems Diagnosis/Problems (1) NSTEMI (non-ST elevated myocardial infarction) Status: Acute (2) Severe aortic stenosis Status: Acute (3) Multi-vessel coronary artery stenosis Status: Acute (4) Atrial fibrillation with rapid ventricular response Status: Acute (5) Coronary artery disease Status: Chronic Clinical Quality Measures AMI/AHF: ASA po Prior to arrival: Yes DVT/VTE Risk/Contraindication: Risk Factor Score Per Nursin RFS Level Per Nursing on Admit: 4+=Very High CRIS WALDEN MD Apr 06, 2019 17:14
--- NOTE | 2019-04-06 18:10 | NUR ---
Room assigned for [facility] to Dr. Wills, room HC 909. Report given to Marzena MOJICA. [facility] notified.
--- NOTE | 2019-04-06 19:45 | NUR ---
Pt transported via [facility] with no complications. Personal belongings taken by family members. [facility] notified of patient leaving.
--- NOTE | 2019-04-08 13:06 | Physician Query-Final Dx ---
INDU LOVE 04/08/19 1306: Final Diagnosis Give Final Diagnosis Please give Final Diagnosis CRIS WALDEN MD 04/08/19 1332: Final Diagnosis Give Final Diagnosis NSTEMI, severe aortic stenosis, multi-vessel CAD INDU LOVE Apr 08, 2019 13:06 CRIS WALDEN MD Apr 08, 2019 13:32
== END 2019-04-06 19:30 | disposition short-term general hospital (02) | DRG 280 ==
LOC: EDUNIT# 15:48 → ER 15:49 → ICU 17:24
PROVIDERS: ADMIT Internal Medicine; ATTEND Internal Medicine
PROC: 4A023N7 Measurement of Cardiac Sampling and Pressure, Left Heart, Percutaneous Approach (ICD-10-PCS; principal; 2019-04-06)
PROC: B2111ZZ Fluoroscopy of Multiple Coronary Arteries using Low Osmolar Contrast (ICD-10-PCS; 2019-04-06)
DX: I21.4 Non-ST elevation (NSTEMI) myocardial infarction (principal); I25.10 Atherosclerotic heart disease of native coronary artery without angina pectoris; I48.0 Paroxysmal atrial fibrillation; I48.92 Unspecified atrial flutter; R57.8 Other shock; I35.0 Nonrheumatic aortic (valve) stenosis; I13.0 Hypertensive heart and chronic kidney disease with heart failure and stage 1 through stage 4 chronic kidney disease, or unspecified chronic kidney disease; I50.9 Heart failure, unspecified; N18.4 Chronic kidney disease, stage 4 (severe); E87.2 Acidosis; N17.9 Acute kidney failure, unspecified; I27.20 Pulmonary hypertension, unspecified; T82.855A Stenosis of coronary artery stent, initial encounter; E11.610 Type 2 diabetes mellitus with diabetic neuropathic arthropathy; E11.40 Type 2 diabetes mellitus with diabetic neuropathy, unspecified; I73.9 Peripheral vascular disease, unspecified; M10.9 Gout, unspecified; I49.5 Sick sinus syndrome; G47.30 Sleep apnea, unspecified; E78.5 Hyperlipidemia, unspecified; I25.2 Old myocardial infarction; K58.9 Irritable bowel syndrome, unspecified; H54.62 Unqualified visual loss, left eye, normal vision right eye; H91.3 Deaf nonspeaking, not elsewhere classified; Z85.3 Personal history of malignant neoplasm of breast; Z79.4 Long term (current) use of insulin; Z95.5 Presence of coronary angioplasty implant and graft; Z95.0 Presence of cardiac pacemaker; Z90.710 Acquired absence of both cervix and uterus; Z90.722 Acquired absence of ovaries, bilateral
CPT/HCPCS: 36415; 51702; 70450; 71045; 80048; 80053; 80061; 81000; 82150; 82962; 83605; 83690; 83735; 83874; 84100; 84484; 85025; 85027; 85610; 85730; 87040; 87081; 87088; 93005; 93041; 93306; 93458; 96361; 96365; 96366; 96375

== ENCOUNTER 2019-05-02 21:40 | Inpatient (IN) | payer MEDICARE, MEDICAID ==
[~2019-05-02] VITALS: Ht 167 cm; Wt 136.7 kg
--- NOTE | 2019-05-02 21:58 | ED Cardiac General ---
History of Present Illness General Stated Complaint: GENERALIZED WEAKNESSS Source: patient, EMS Exam Limitations: no limitations History of Present Illness Date Seen by Provider: May 02, 2019 Time Seen by Provider: 21:36 Initial Comments Patient presents to ER by EMS with chief complaint of tiredness weakness for the past week as well as pain in bilateral arms. Shortness of breath. She does not rely on oxygen at baseline but her oxygen sats were 90-92% per EMS. They put her on 2 L. She has a history of heart disease in 1 week ago she was at to have her aortic valve replaced. She has plans Thursday, 2 days from now to return to and had an echocardiogram as well as stitches removed. She had both groins accessed for a heart catheter 6 days ago here at [facility] after her heart attack as well as the second access was at for the aortic valve replacement. She's not having swelling or pain in her groins are under her ribs. Her right chest had a large pleural effusion which had to be drained with chest tube which is no longer present. She's been coughing up phlegm. No fevers or chills. She is diabetic and recently restarted her Victoza 18 units daily. She is on Eliquis an Plavix. She has an insulin pump. While she was at she reports having had to have been given 2 units of blood, plasma and platelets. The plan was for her to go to [facility] for rehabilitation tomorrow. Allergies and Home Medications Allergies Coded Allergies: sulfamethoxazole (Verified Allergy, Intermediate, 10/05/15) tramadol (Verified Allergy, Intermediate, 10/05/15) trimethoprim (Verified Allergy, Intermediate, 10/05/15) Penicillins (Verified Allergy, Unknown, 10/05/15) codeine (Verified Allergy, Unknown, CAN TAKE MORPHINE, 10/05/15) hydrocodone (Verified Allergy, Unknown, 10/05/15) amiodarone (Verified Adverse Reaction, Mild, NAUSEA, dizziness, 02/01/16) Home Medications Allopurinol 100 Mg Tablet, 100 MG PO DAILY, (Reported) Apixaban 2.5 Mg Tablet, 2.5 MG PO BID, (Reported) Cholecalciferol (Vitamin D3) 5,000 Unit Capsule, 5,000 UNIT PO DAILY, (Reported) Clopidogrel Bisulfate 75 Mg Tablet, 75 MG PO DAILY, (Reported) Cyanocobalamin 1,000 Mcg/Ml Inj, 1,000 MCG IJ MONTHLY, (Reported) Diazepam 5 Mg Tablet, 5 MG PO DAILY PRN for ANXIETY, (Reported) Estrogens Conjugated 30 Gm Cr, VG MoWeFr, (Reported) Insulin Aspart 100 Unit/1 Ml Susp, PER INSULIN PUMP, (Reported) Liraglutide 0.6 Mg/0.1 Ml Pen.injctr, 1.8 MG SC HS, (Reported) Metolazone 2.5 Mg Tablet, 2.5 MG PO MoTh, (Reported) Metoprolol Succinate 25 Mg Tab.er.24h, 12.5 MG PO HS, (Reported) TAKES 1/2 (25MG) TABLET Nitroglycerin 0.4 Mg Tab.subl, 0.4 MG SL UD PRN for CHEST PAIN, (Reported) Pantoprazole Sodium 40 Mg Tablet.dr, 40 MG PO HS, (Reported) Potassium Chloride 20 Meq Tab.er.prt, 10 MEQ PO BID, (Reported) LAST FILLED #30 02-23-19 TAKES 1/2 (10MEQ) TABLETS Rosuvastatin Calcium 20 Mg Tablet, 20 MG PO HS, (Reported) Torsemide 100 Mg Tablet, 50 MG PO DAILY, (Reported) TAKES 1/2 (100MG) TABLET Patient Home Medication List Home Medication List Reviewed: Yes Review of Systems Review of Systems Constitutional: No chills, No fever; malaise, weakness (general) EENTM: No Blurred Vision, No Double Vision Respiratory: Cough; Denies Orthopnea; Shortness of Air; Denies Wheezing Cardiovascular: Denies Chest Pain, Denies Edema, Denies Irregular Heart Rate, Denies Lightheadedness Gastrointestinal: Denies Abdominal Pain, Denies Constipated, Denies Diarrhea, Denies Nausea, Denies Vomiting Genitourinary: Denies Burning, Denies Discharge Musculoskeletal: No back pain, No joint pain Skin: No pruritus, No rash Psychiatric/Neurological: Denies Headache, Denies Numbness Past [id number]-Mfelzr Hx Patient Social History Alcohol Use: Denies Use Recreational Drug Use: No Smoking Status: Never a Smoker 2nd Hand Smoke Exposure: No Recent Foreign Travel: No Contact w/Someone Who Travel: No Recent Hopitalizations: No Immunizations Up To Date Tetanus Booster (TDap): Less than 5yrs Date of Pneumonia Vaccine: Aug 02, 2018 Date of Influenza Vaccine: May 20, 2018 Seasonal Allergies Seasonal Allergies: No Past Medical History Surgeries: Yes (PACEMAKER, CAROTID ARTERY, HEART CATH-STENTS /ANGIOPLASTY) Cardiac, Coronary Stent, Gallbladder, Hysterectomy, Oophorectomy, Orthopedic, Pacemaker, Vascular Surgery Respiratory: Yes Sleep Apnea Currently Using CPAP: No Currently Using BIPAP: No Cardiac: Yes (PACEMAKER, CHF, STENTS X10) Atrial Fibrillation, Chronic Edema/Swelling, Coronary Artery Disease, Heart Attack, Heart Murmur, High Cholesterol, Hypertension, Peripheral Vascular, Rheumatic Fever Neurological: Yes (TIA AFTER STENT IN JUNE) Neuropathy, TIA Reproductive Disorders: 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 ) Endocrine: Yes (INSULIN PUMP, 3 THYROID NODULES) Diabetes, Insulin dep Cataract Loss of Vision: Left Hearing Impairment: Deaf Cancer: Yes (BREAST CA 2010) Breast Did You Recieve Any Treatments: Yes What Type of Treatment Did You: Radiation Psychosocial: No Integumentary: Yes (DIABETIC FOOT ULCER ON LEFT--PT STATES IS NOW HEALED. ) Blood Disorders: No Adverse Reaction/Blood Tranf: No Family Medical History Cardiovascular disease 19 FATHER 19 MOTHER G8 BROTHER G8 SISTER G8 SISTER G8 SISTER Completed stroke 19 FATHER G8 SISTER Diabetes mellitus 19 FATHER G8 SISTER G8 SISTER FH: cancer G8 SISTER G8 SISTER Myocardial infarction G8 BROTHER (65 YEARS OLD) Physical Exam Vital Signs Capillary Refill : Height, Weight, BMI Height: 5'6.00" Weight: 223lbs. 0.5oz. [id number]; 35.00 BMI Method:Stated General Appearance: Chronically ill, Mild Distress HEENT: PERRL/EOMI, Normal ENT Inspection, Pharynx Normal, Moist Mucous Membranes Neck: Full Range of Motion, Normal Inspection, Non Tender Respiratory: No Accessory Muscle Use, Decreased Breath Sounds (right side), Respiratory Distress (on room air oxygen saturation 90%.), Other (right chest wall midaxillary line has to break and sutures without erythema or induration or fluctuance and a healing thoracotomy site.) Cardiovascular: Regular Rate, Rhythm, No Murmur, Normal Peripheral Pulses Gastrointestinal: Normal Bowel Sounds, Non Tender, Soft Extremity: Normal Capillary Refill, Normal Inspection, Non Tender Neurologic/Psychiatric: Alert, Oriented x3 Skin: Other (bilateral groins are dressed clean dry minimal ecchymoses without pulsatile nodule.) Progress/Results/Core Measures Results/Orders Lab Results Laboratory Tests Test 05/02/19 21:53 05/02/19 21:56 05/02/19 22:38 Range/Units White Blood Count 11.4 H 4.3-11.0 10^3/uL Red Blood Count 3.72 L 4.35-5.85 10^6/uL Hemoglobin 10.0 L 11.5-16.0 G/DL Hematocrit 32 L 35-52 % Mean Corpuscular Volume 85 80-99 FL Mean Corpuscular Hemoglobin 27 25-34 PG Mean Corpuscular Hemoglobin Concent 32 32-36 G/DL Red Cell Distribution Width 17.0 H 10.0-14.5 % Platelet Count 353 130-400 10^3/uL Mean Platelet Volume 9.2 7.4-10.4 FL Neutrophils (%) (Auto) 74 42-75 % Lymphocytes (%) (Auto) 11 L 12-44 % Monocytes (%) (Auto) 12 0-12 % Eosinophils (%) (Auto) 3 0-10 % Basophils (%) (Auto) 0 0-10 % Neutrophils # (Auto) 8.4 H 1.8-7.8 X 10^3 Lymphocytes # (Auto) 1.3 1.0-4.0 X 10^3 Monocytes # (Auto) 1.3 H 0.0-1.0 X 10^3 Eosinophils # (Auto) 0.4 H 0.0-0.3 10^3/uL Basophils # (Auto) 0.0 0.0-0.1 10^3/uL Prothrombin Time 21.5 H 12.2-14.7 SEC INR Comment 1.8 H 0.8-1.4 Activated Partial Thromboplast Time 40 H 24-35 SEC Sodium Level 131 L 135-145 MMOL/L Potassium Level 3.7 3.6-5.0 MMOL/L Chloride Level 91 L 98-107 MMOL/L Carbon Dioxide Level 28 21-32 MMOL/L Anion Gap 12 5-14 MMOL/L Blood Urea Nitrogen 16 7-18 MG/DL Creatinine 1.50 H 0.60-1.30 MG/DL Estimat Glomerular Filtration Rate 33 BUN/Creatinine Ratio 11 Glucose Level 93 70-105 MG/DL Calcium Level 8.8 8.5-10.1 MG/DL Corrected Calcium 9.4 8.5-10.1 MG/DL Magnesium Level 1.8 1.6-2.4 MG/DL Total Bilirubin 1.1 H 0.1-1.0 MG/DL Aspartate Amino Transf (AST/SGOT) 21 5-34 U/L Alanine Aminotransferase (ALT/SGPT) 12 0-55 U/L Alkaline Phosphatase 94 40-136 U/L Myoglobin 80.6 10.0-92.0 NG/ML Troponin I 0.043 H <0.028 NG/ML B-Type Natriuretic Peptide 1541.1 H <100.0 PG/ML Total Protein 6.4 6.4-8.2 GM/DL Albumin 3.3 3.2-4.5 GM/DL Micro Results Microbiology 05/02/19 Influenza Types A,B Antigen (CHERRY) - Final, Complete My Orders Orders - NIGHAT HASSAN Cbc With Automated Diff (05/02/19 21:51) Magnesium (05/02/19 21:51) Chest 1 View, Ap/Pa Only (05/02/19 21:51) Ekg Tracing (05/02/19 21:51) Cardiac Profile 1 (05/02/19 21:51) Comprehensive Metabolic Panel (05/02/19 21:51) Myoglobin Serum (05/02/19 21:51) Protime With Inr (05/02/19 21:51) Partial Thromboplastin Time (05/02/19 21:51) O2 (05/02/19 21:51) Monitor-Rhythm Ecg Trace Only (05/02/19 21:51) Lipid Panel (05/03/19 06:00) Ed Iv/Invasive Line Start (05/02/19 21:51) BNP (05/02/19 21:51) Aspirin Chewable Tablet (Baby Aspirin Ch (05/02/19 22:00) Influenza A And B Antigens (05/02/19 21:52) Ua Culture If Indicated (05/02/19 22:17) Hs C Reactive Protein (05/02/19 22:34) Medications Given in ED Current Medications Medications Dose Ordered Sig/Tresa Route Start Time Stop Time Status Last Admin Dose Admin Aspirin 324 mg ONCE ONCE PO 05/02/19 22:00 05/02/19 22:01 DC 05/02/19 22:06 324 MG Progress Progress Note #1: Time: 22:08 Progress Note Plan to do a cardiac workup as well as obtain some cultures. Differential includes pleural effusion recurrence versus a pneumonia versus atypical acute coronary syndrome. We'll give her some aspirin. She denies any pain at the present so we'll hold off nitroglycerin. BNP. We'll hold off any fluids or antibiotics. Influenza swab. She was recently started on metolazone for diuresis. Hemoglobin is 10 so an anemia is likely the source of her symptoms. She states she's been using the Eliquis appropriately so it is less likely she would have a pulmonary embolism. Cardiac catheterization by Dr. Bauman April 06, 2019. Critical aortic valve stenosis with pressure gradient bearing full back to 60 mmHg. Severe ostial LAD stenosis with multiple stents in the LAD. Moderate to severe mid in-stent restenosis of the circumflex artery. Moderate distal right coronary artery stenosis. Elevated left ventricular end-diastolic pressure. Echocardiogram by Dr. Mcdonnell January 2019: Left ventricular cavity size normal with mild to moderately increased wall thickness and concentric hypertrophy. EF of 70-75%. Aortic valve has moderate to severe stenosis with a mean gradient of 30 mmHg. Mild to moderate regurgitation. Tricuspid valve with mild to moderate regurgitation. Dilated inferior vena cava. Progress Note #2: Time: 22:32 Progress Note Her kidney function is at baseline. Her white count is unremarkable. Her BNP typically runs around 400 and it is 1500 today. Plan to give diuretics. Chest x- ray demonstrates a large pleural effusion and there could be a infiltrate hiding in there but no fever or white count we will just start with diuretics. Initial ECG Impression Date: May 02, 2019 Initial ECG Impression Time: 21:58 Initial ECG Rate: 65 Initial ECG Intervals: MT (364) Initial ECG Impression: Nonspecific Changes Initial ECG Comparisson: Changed Comment Pacer spikes with failure to sense and/or capture. Sinus or ectopic atrial rhythm. No clinically evident ST elevation or depression. Diagnostic Imaging Diagonstic Imaging: Xray Plain Films/CT/US/NM/MRI: chest (1v) Comments Moderate to large right-sided pleural effusion. Reviewed: Reviewed by Me Departure Communication (Admissions) Time/Spoke to Admitting Phy: 23:00 Discussed case lab imaging findings with Dr. Flaherty and he agrees to admit the patient to cardiac stepdown on Lasix. Time/Spoke to Consulting Phy: 22:50 Discussed case lab EKG imaging findings and Dr. Kenny would like Lasix 40 mg IV twice a day as well as potassium 20 mEq by mouth twice a day and continue home meds. He says cardiac stepdown is fine. Impression Primary Impression: Heart failure Qualified Codes: I50.9 - Heart failure, unspecified Additional Impression: Hypoxia Disposition: ADMITTED INPATIENT Condition: Stable Admissions Decision to Admit Reason: Admit from ER (General) Decision to Admit/Date: May 02, 2019 Time/Decision to Admit Time: 22:44 Departure-Patient Inst. Referrals: JOE ROBERTSON MD (PCP/Family) Primary Care Physician NIGHAT HASSAN May 02, 2019 21:58
[2019-05-02] MEDS ORDERED: ASPIRIN 81 MG CHEW (CHILDREN'S ASA) PO ONE (22:00)
[2019-05-02 22:03] LABS: BASOPHILS % (AUTO) 0 % (0-10); EOSINOPHILS # (AUTO) 0.4 10^3/uL (0.0-0.3); EOSINOPHILS % (AUTO) 3 % (0-10); HEMATOCRIT 32 % (35-52); LYMPHOCYTES # (AUTO) 1.3 X 10^3 (1.0-4.0); LYMPHOCYTES % (AUTO) 11 % (12-44); MEAN CORPUSCULAR HEMOGLOBIN 27 PG (25-34); MEAN CORPUSCULAR HGB CONC 32 G/DL (32-36); MEAN CORPUSCULAR VOLUME 85 FL (80-99); MEAN PLATELET VOLUME 9.2 FL (7.4-10.4); MONOCYTES # (AUTO) 1.3 X 10^3 (0.0-1.0); MONOCYTES % (AUTO) 12 % (0-12); NEUTROPHILS # (AUTO) 8.4 X 10^3 (1.8-7.8); NEUTROPHILS % (AUTO) 74 % (42-75); PLATELET COUNT 353 10^3/uL (130-400); WHITE BLOOD COUNT 11.4 10^3/uL (4.3-11.0)
[2019-05-02 22:14] LABS: INR 1.8 (0.8-1.4); PROTHROMBIN TIME PATIENT 21.5 SEC (12.2-14.7)
[2019-05-02 22:21] LABS: ALBUMIN 3.3 GM/DL (3.2-4.5); BILIRUBIN,TOTAL 1.1 MG/DL (0.1-1.0); CALCIUM 8.8 MG/DL (8.5-10.1); CREATININE SERUM 1.5 MG/DL (0.60-1.30); MAGNESIUM 1.8 MG/DL (1.6-2.4); POTASSIUM 3.7 MMOL/L (3.6-5.0); TOTAL PROTEIN 6.4 GM/DL (6.4-8.2)
[2019-05-02 22:44] LABS: BILIRUBIN,URINE NEGATIVE (NEGATIVE); CLARITY,URINE CLEAR; COLOR,URINE YELLOW; GLUCOSE, URINE (UA) NEGATIVE (NEGATIVE); KETONES,URINE NEGATIVE (NEGATIVE); LEUKOCYTE ESTERASE ,URINE NEGATIVE (NEGATIVE); NITRITE,URINE NEGATIVE (NEGATIVE); PH,URINE 7 (5-9); PROTEIN,URINE 1+ (NEGATIVE)
[2019-05-02 22:51] LABS: AMORPHOUS SEDIMENT,UR RARE AMOR PHOSPHATE /LPF; BACTERIA,URINE NEGATIVE /HPF
[2019-05-02] MEDS ORDERED: FUROSEMIDE 40 MG/4 ML INJ (LASIX) IVP ONE (23:15)
[2019-05-02] MEDS ORDERED: MIDO10TA PO (23:31)
[2019-05-02] MEDS ORDERED: CIPROFLOXACIN 500 MG (CIPRO) TABLET PO ONE (23:45)
[2019-05-03 00:30] VITALS: BP 126/71
[2019-05-03] MEDS ORDERED: NITROGLYCERIN 0.4 MG SL TABS BTL 25'S SL PRN (01:45)
[2019-05-03] MEDS ORDERED: morphine INJ 4 MG/ML 1 ML (VIAL/SYRINGE) IV PRN (01:45)
[2019-05-03 03:44] LABS: BASOPHILS # (AUTO) 0.1 10^3/uL (0.0-0.1); BASOPHILS % (AUTO) 1 % (0-10); EOSINOPHILS # (AUTO) 0.4 10^3/uL (0.0-0.3); EOSINOPHILS % (AUTO) 4 % (0-10); HEMATOCRIT 31 % (35-52); HEMOGLOBIN 9.9 G/DL (11.5-16.0); LYMPHOCYTES # (AUTO) 1.4 X 10^3 (1.0-4.0); LYMPHOCYTES % (AUTO) 14 % (12-44); MEAN CORPUSCULAR HEMOGLOBIN 27 PG (25-34); MEAN CORPUSCULAR HGB CONC 32 G/DL (32-36); MEAN CORPUSCULAR VOLUME 84 FL (80-99); MEAN PLATELET VOLUME 8.8 FL (7.4-10.4); MONOCYTES # (AUTO) 1.3 X 10^3 (0.0-1.0); MONOCYTES % (AUTO) 13 % (0-12); NEUTROPHILS % (AUTO) 69 % (42-75); PLATELET COUNT 343 10^3/uL (130-400); WHITE BLOOD COUNT 10.1 10^3/uL (4.3-11.0)
[2019-05-03 04:00] VITALS: BP 148/66
[2019-05-03 04:03] LABS: CALCIUM 8.6 MG/DL (8.5-10.1); CREATININE SERUM 1.43 MG/DL (0.60-1.30); POTASSIUM 3.5 MMOL/L (3.6-5.0)
[2019-05-03] MEDS: inSUlin ASPART (NovoLOG) 1 UNIT/0.01 ML (CHARGE PER UNIT) SC SCH ×4 (06:15→21:00)
--- NOTE | 2019-05-03 07:19 | Diagnostic Imaging Report ---
INDICATION: Weakness, chest pain, post recent chest tube removal last week. TECHNIQUE: Single view chest 10:26 PM. CORRELATION STUDY: 04/06/2019 FINDINGS: Left-sided pacemaker is present. Stent over the expected location of the aortic valve. Heart size is largely obscured but appears generally stable. Vasculature is borderline. Extensive opacification of the right hemithorax likely a combination of effusion with atelectasis and/or infiltrate to the right lung. IMPRESSION: 1. Findings suggestive of a rather prominent right pleural effusion along with consolidation of the right lung. Adversely changed from prior study. Dictated by: Dictated on workstation # [id number]
--- NOTE | 2019-05-03 07:49 | Diagnostic Imaging Report ---
INDICATION: Heart failure, hypoxia. TECHNIQUE: Single view chest 3:17 AM. CORRELATION STUDY: 05/02/2019 FINDINGS: Significant opacification of the right hemithorax again demonstrated, likely fairly sizable effusion along with consolidation of the right lung. Left lung remains relatively clear. Heart size appears generally stable to somewhat obscured. Stent at the level of the aortic valve as well as coronary artery stent. Vasculature appears slightly less congested from prior study. Left-sided pacemaker unchanged. Dense calcification of the aortic arch. IMPRESSION: 1. Likely a combination of sizable right pleural effusion along with consolidation in the right lung. Dictated by: Dictated on workstation # [id number]
--- NOTE | 2019-05-03 08:06 | Consultation-Cardiology ---
HPI-Cardiology Cardiology Consultation: Date of Consultation 05/03/19 Time Seen by a Provider: 11:40 Date of Admission 05-02-19 Attending Physician Angel Mcdowell MD Admitting Physician Rashaun Gonzales MD Consulting Physician Kacie Kenny MD HPI: Chief Complaint: Dyspnea LE swelling Ms. Suh is an 79 year old female who has recently undergone TAVR at [facility]. She has been admitted to [place] [id number] from the ED. Her daughter is at the bedside. She reports the patient was released from [facility] a week ago to [facility] for PT. She states they were unhappy with care and took her home with them. She states her mother has been feeling fairly well, but has had progressive SOB and LE swelling. Pt states she is currently feeling generally unwell and nauseated after receiving IV morphine overnight for pain. She is currently not reporting any CP or palpitations. She states she continues to feel SOB, but it is somewhat better. No report of syncope or near syncope. No report of fever or chills. Review of Systems-Cardiology Review of Systems Constitutional: No chills, No fever; malaise Eyes: No vision change Ears/Nose/Throat: No epistaxis, No recent hearing loss Respiratory: As described under HPI Cardiovascular: As described under HPI Gastrointestinal: No diarrhea; nausea, vomiting Genitourinary: No hematuria Skin: No rash on exposed areas, No ulcerations on exposed areas Psychiatric/Neurological: No seizure, No syncope Hematologic: No bleeding abnormalities VXT-Gglbvc-Lwhzdq Hx Patient Social History Alcohol Use: Denies Use Recreational Drug Use: No Smoking Status: Never a Smoker 2nd Hand Smoke Exposure: No Recent Foreign Travel: No Recent Infectious Disease Expo: No Hospitalization with Isolation: Denies Immunizations Up To Date Tetanus Booster (TDap): Less than 5yrs Date of Pneumonia Vaccine: Aug 02, 2018 Date of Influenza Vaccine: May 20, 2018 Past Medical History PMH As described under Assessment. Family Medical History Family Medical History: History of father, mother and several siblings with CAD. Her father had a stroke. Two sisters with DM. Family History: Cardiovascular disease 19 FATHER 19 MOTHER G8 BROTHER G8 SISTER G8 SISTER G8 SISTER Completed stroke 19 FATHER G8 SISTER Diabetes mellitus 19 FATHER G8 SISTER G8 SISTER FH: cancer G8 SISTER G8 SISTER Myocardial infarction G8 BROTHER (65 YEARS OLD) Allergies and Home Medications Allergies Coded Allergies: sulfamethoxazole (Verified Allergy, Intermediate, 10/05/15) tramadol (Verified Allergy, Intermediate, 10/05/15) trimethoprim (Verified Allergy, Intermediate, 10/05/15) Penicillins (Verified Allergy, Unknown, 10/05/15) codeine (Verified Allergy, Unknown, CAN TAKE MORPHINE, 10/05/15) hydrocodone (Verified Allergy, Unknown, 10/05/15) amiodarone (Verified Adverse Reaction, Mild, NAUSEA, dizziness, 02/01/16) Home Medications Acetaminophen 500 Mg Tablet, 500 MG PO Q6H PRN for PAIN-MILD, (Reported) Allopurinol 100 Mg Tablet, 100 MG PO DAILY, (Reported) Apixaban 2.5 Mg Tablet, 2.5 MG PO BID, (Reported) Cholecalciferol (Vitamin D3) 5,000 Unit Capsule, 5,000 UNIT PO DAILY, (Reported) Clopidogrel Bisulfate 75 Mg Tablet, 75 MG PO DAILY, (Reported) Cyanocobalamin 1,000 Mcg/Ml Inj, 1,000 MCG IJ MONTHLY, (Reported) Cyanocobalamin (Vitamin B-12) 500 Mcg Tablet, 1,000 MCG PO DAILY, (Reported) Estrogens Conjugated 30 Gm Cr, VG MoWeFr, (Reported) Insulin Aspart 100 Unit/1 Ml Susp, PER INSULIN PUMP, (Reported) Liraglutide 0.6 Mg/0.1 Ml Pen.injctr, 1.8 MG SC HS, (Reported) Metolazone 2.5 Mg Tablet, 2.5 MG PO DAILY, (Reported) Midodrine HCl 10 Mg Tablet, 10 MG PO BID, (Reported) Nitroglycerin 0.4 Mg Tab.subl, 0.4 MG SL UD PRN for CHEST PAIN, (Reported) Potassium Chloride 10 Meq Tab.er.prt, 10 MEQ PO DAILY, (Reported) Rosuvastatin Calcium 20 Mg Tablet, 20 MG PO HS, (Reported) Patient Home Medication List Home Medication List Reviewed: Yes Physical Exam-Cardiology Physical Exam Vital Signs/I&O 05/03/19 05/03/19 05/03/19 05/03/19 00:30 00:37 00:45 01:00 Temp 35.5 36.4 Pulse 67 61 60 Resp 20 20 B/P (MAP) 126/71 121/43 (103) Pulse Ox 98 99 97 O2 Delivery Nasal Cannula Nasal Cannula Nasal Cannula O2 Flow Rate 2.00 2.00 2.00 2.00 05/03/19 05/03/19 05/03/19 05/03/19 04:00 04:00 06:59 08:00 Temp 37.2 Pulse 72 77 Resp 22 B/P (MAP) 148/66 (93) Pulse Ox 95 O2 Delivery Nasal Cannula Nasal Cannula Nasal Cannula O2 Flow Rate 2.00 2.00 2.00 05/03/19 05/03/19 05/03/19 05/03/19 08:15 08:33 09:00 11:35 Temp 36.4 36.1 Pulse 69 69 Resp 22 18 B/P (MAP) 142/60 (87) 124/73 (90) Pulse Ox 95 95 98 O2 Delivery Nasal Cannula Nasal Cannula Nasal Cannula Nasal Cannula O2 Flow Rate 2.00 1.50 2.00 2.00 Capillary Refill : Less Than 3 Seconds Constitutional: AAO x 3, well-developed, well-nourished HEENT: hard of hearing Neck: No carotid bruit; carotid pulses are 2 + bilaterally Respiratory: No accessory muscle use, No respiratory distress; chest expansion is symmetric, chest is bilaterally symmetric, other (fair air entry with diminished breath sounds RLL) Cardiovascular: regular rate-rhythm, S1 and S2, systolic murmur Gastrointestinal: No tender; round, audible bowel sounds Rectal: deferred Extremities: other (bilat 2-3 + pitting edema) Neurologic/Psychiatric: grossly intact Skin: No rash on exposed areas, No ulcerations on exposed areas Data Review Labs Laboratory Tests 05/02/19 21:53: White Blood Count 11.4H, Red Blood Count 3.72L, Hemoglobin 10.0L, Hematocrit 32L , Mean Corpuscular Volume 85, Mean Corpuscular Hemoglobin 27, Mean Corpuscular Hemoglobin Concent 32, Red Cell Distribution Width 17.0H, Platelet Count 353, Mean Platelet Volume 9.2, Neutrophils (%) (Auto) 74, Lymphocytes (%) (Auto) 11L, Monocytes (%) (Auto) 12, Eosinophils (%) (Auto) 3, Basophils (%) (Auto) 0, Neutrophils # (Auto) 8.4H, Lymphocytes # (Auto) 1.3, Monocytes # (Auto) 1.3H, Eosinophils # (Auto) 0.4H, Basophils # (Auto) 0.0, Prothrombin Time 21.5H, INR Comment 1.8H, Activated Partial Thromboplast Time 40H, Sodium Level 131L, Potassium Level 3.7, Chloride Level 91L, Carbon Dioxide Level 28, Anion Gap 12, Blood Urea Nitrogen 16, Creatinine 1.50H, Estimat Glomerular Filtration Rate 33, BUN/Creatinine Ratio 11, Glucose Level 93, Calcium Level 8.8, Corrected Calcium 9.4, Magnesium Level 1.8, Total Bilirubin 1.1H, Aspartate Amino Transf (AST/SGOT) 21, Alanine Aminotransferase (ALT/SGPT) 12, Alkaline Phosphatase 94, Myoglobin 80.6, Troponin I 0.043H, B-Type Natriuretic Peptide 1541.1H, Total Pr otein 6.4, Albumin 3.3 05/02/19 21:56: C-Reactive Protein High Sensitivity 9.19H 05/02/19 22:38: Urine Color YELLOW, Urine Clarity CLEAR, Urine pH 7, Urine Specific [place] 1.010L, Urine Protein 1+H, Urine Glucose (UA) NEGATIVE, Urine Ketones NEGATIVE, Urine Nitrite NEGATIVE, Urine Bilirubin NEGATIVE, Urine Urobilinogen NORMAL, Urine Leukocyte Esterase NEGATIVE, Urine RBC (Auto) NEGATIVE, Urine RBC NONE, Urine WBC NONE, Urine Crystals PRESENTH, Urine Amorphous Sediment RARE [place] PHOSPHATEH, Urine Bacteria NEGATIVE, Urine Casts NONE, Urine Mucus NEGATIVE, Urine Culture Indicated NO 05/03/19 03:30: White Blood Count 10.1, Red Blood Count 3.72L, Hemoglobin 9.9L, Hematocrit 31L, Mean Corpuscular Volume 84, Mean Corpuscular Hemoglobin 27, Mean Corpuscular Hemoglobin Concent 32, Red Cell Distribution Width 17.0H, Platelet Count 343, Mean Platelet Volume 8.8, Neutrophils (%) (Auto) 69, Lymphocytes (%) (Auto) 14, Monocytes (%) (Auto) 13H, Eosinophils (%) (Auto) 4, Basophils (%) (Auto) 1, Neutrophils # (Auto) 7.0, Lymphocytes # (Auto) 1.4, Monocytes # (Auto) 1.3H, Eosinophils # (Auto) 0.4H, Basophils # (Auto) 0.1, Sodium Level 133L, Potassium Level 3.5L, Chloride Level 92L, Carbon Dioxide Level 29, Anion Gap 12, Blood Urea Nitrogen 16, Creatinine 1.43H, Estimat Glomerular Filtration Rate 35, B UN/Creatinine Ratio 11, Glucose Level 58*L, Calcium Level 8.6, Corrected Calcium 9.4, Total Bilirubin 1.0, Aspartate Amino Transf (AST/SGOT) 18, Alanine Aminotransferase (ALT/SGPT) 11, Alkaline Phosphatase 85, Troponin I 0.048H, Total Protein 6.0L, Albumin 3.0L, Triglycerides Level 65, Cholesterol Level 65, LDL Cholesterol Direct 35, VLDL Cholesterol 13, HDL Cholesterol 23L 05/03/19 10:00: Troponin I 0.040H 05/03/19 10:51: Glucometer 94 Microbiology 05/02/19 Influenza Types A,B Antigen (CHERRY) - Final, Complete Radiology NAME: ANUP SUH [facility] REC#: [id number] PT STATUS: ADM IN : 1940 PHYSICIAN: ANGEL MCDOWELL MD ADMIT DATE: 05/02/19/[facility] Draft Date of Exam:05/03/19 CHEST 1 VIEW, AP/PA ONLY INDICATION: Heart failure, hypoxia. TECHNIQUE: Single view chest 3:17 AM. CORRELATION STUDY: 05/02/2019 FINDINGS: Significant opacification of the right hemithorax again demonstrated, likely fairly sizable effusion along with consolidation of the right lung. Left lung remains relatively clear. Heart size appears generally stable to somewhat obscured. Stent at the level of the aortic valve as well as coronary artery stent. Vasculature appears slightly less congested from prior study. Left-sided pacemaker unchanged. Dense calcification of the aortic arch. IMPRESSION: 1. Likely a combination of sizable right pleural effusion along with consolidation in the right lung. Dictated on workstation # [id number] Dict: 05/03/19 0741 Trans: 05/03/19 0749 ARGELIA [id number] Interpreted by: CHRISTO RAYMUNDO DO Electronically signed by: ECG Impression ECG Initial ECG Rhythm: Normal Sinus (with first degree block) A/P-Cardiology Assessment/Admission Diagnosis S/P TAVR with a #[address] Cheema at [facility] on Apr 06, 2019 - at which time she had a chest tube placed d/t signif right sided pleural effusion (removed on 04-26-19) Lg right pleural effusion seen on CXR of 05-03-19 Mildly elevated troponin likely secondary to recent surgery and decompensated CHF Coronary artery disease, multiple interventions in the past, reports a total of 11 stents. Multivessel disease. Cardiac catheterization was done in October 2012 showing severe stenosis in the midright coronary artery had stent deployed 3.0x24 mm Promus elements stent expanded to 3.18 mm in the right coronary artery. Severe stenosis in the proximal diagonal artery, very small artery not amendable to intervention. 60 percent in-stent restenosis in the mid circumflex artery, underwent another cardiac catheterization on November 19, [address] Burch, had a stent to the circumflex artery, the stent sizes was not described in the report. Cardiac catheterization done December 26, 2016 with balloon angioplasty to the mid circumflex for 80 percent in-stent restenosis. Patient was brought back the same day where she underwent repeat cardiac catheterization after having chest pain, underwent another balloon angioplasty and stent deployment in the distal circumflex artery for recoil of the in-stent restenosis with the use of a new stent, 3.5 x 18 mm Xience Alpine stent. Underwent cardiac catheterization on February 04, [address] Mcdonnell after having type II myocardial infarction which showed moderate multivessel coronary artery disease, had FFR 0.83 to the LAD and 0.91 to the left circumflex artery, treated conservatively. Most recent cardiac cath of Apr 06, [address] Bauman showed Critical aortic valve stenosis with pressure gradient during pullback to 60 mmHg. Severe ostial LAD stenosis, multiple stents in the LAD. Moderate to severe mid in-stent restenosis in the circumflex artery. Moderate distal right coronary artery stenosis. Elevated left ventricular end-diastolic pressure - conservative CAD management - transferred to [facility] for TAVR Peripheral arterial disease, history of nonhealing foot ulcer and stent done in 2016, cardiac catheterization done in September 2017 showing total occlusion of the left SFA with complex intervention and balloon angioplasty then drug-coated balloon 5 time 100 then deployment of a new stent Innova six-time 150 from the ostium of the left SFA to the mid SFA overlapping with old stent with excellent results, mild to moderate disease at the popliteal artery and below the trifurcation with small vessel disease, mild to moderate disease at the right SFA. Underwent peripheral angiogram on September 02, [address] Bran with left SFA popliteal atherectomy and angioplasty, left anterior tibial artery angioplasty with widely patent vessels following intervention Intraocular hemorrhage, underwent multiple laser procedure, she lost vision in her left eye last week and seen by Dr. Mckeon and she is following with Dr. Hdez in [place] Echocardiogram of Apr 06, 2019 showed LVEF 55-65%. Severe Ao stenosis with mean gradient 24, valve measuring 0.8 cm2. Mild to mod TR. PASP 50-55mmHg Labile hypertension Hyperlipidemia - Crestor (reported intolerance to Lipitor) Diabetes mellitus, followed and managed by primary care physician. Sick sinus syndrome, history of permanent pacemaker placement. Virtualmin device, pacemaker checkup was done in November 2018 showing good sensing and capture activity, 1 high atrial rhythm Carotid stenosis, history of right carotid endarterectomy. CTA of neck done on February 01, 2016 revealed no significant stenosis in the internal carotid arteries. Prominent focus of stenosis in the distal aspect of the left vertebral artery at the foramen magnum and level dominant right vertebral artery demonstrates no significant stenosis. Carotid ultrasound in April 2018 showed mild bilateral disease Paroxysmal atrial fibrillation OAC with Eliquis Intolerance to amiodarone. 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 followed by Dr. Palomino, currently in remission. Chronic renal insufficiency, stage III renal disease, followed by Dr. Long, continue to monitor Discussion and Recomendations Acute diastolic CHF - repeat echocardiogram - continue diuretics Request records from recent TAVR at [facility] Nausea possibly r/t administration of morphine, which pt and daughter states she does not tolerate - management per medical service Management of DM per medical services Mild anemia - monitor lab Lg right pleural effusion see on CXR - consider pulmonary consult for thoracentesis Continue medications from home including OAC d/t PAF Continue Plavix d/t CAD Replace electrolytes Further recs will be based on her hospital course We would like to thank medical services for this consult Clinical Quality Measures DVT/VTE Risk/Contraindication: Risk Factor Score Per Nursin RFS Level Per Nursing on Admit: 2=Moderate ELIEL CORREA May 03, 2019 08:05
[2019-05-03 08:15] VITALS: BP 142/60
[2019-05-03] MEDS ORDERED: ONDANSETRON 4 MG/2 ML (SDV) Z0FRAN IVP PRN (08:30)
[2019-05-03] MEDS ORDERED: ONDANSETRON 4 MG/2 ML (SDV) Z0FRAN ONE (08:40)
[2019-05-03] MEDS ORDERED: FLU QUADRIvalent (5+ YOA) 2019-2020 (AFLURIA) 0.5 ML IM ONE (08:45)
[2019-05-03] MEDS ORDERED: APIXABAN 2.5 MG (ELIQUIS) TABLET PO SCH (09:00)
[2019-05-03] MEDS ORDERED: CLOPIDOGREL 75 MG (PLAVIX) TABLET PO SCH (09:00)
[2019-05-03] MEDS ORDERED: ACET-2267 PO (09:37)
[2019-05-03] MEDS ORDERED: POTA10TA36 PO (09:37)
[2019-05-03] MEDS ORDERED: CYAN500T62 PO (09:37)
--- NOTE | 2019-05-03 09:40 | NUR ---
I CALLED AND SPOKE WITH THE PATIENT GRANDDAUGHTER PADMAJA, SHE STATES THE MEDICATION LIST SHE GAVE, THAT IS NOW SCANNED INTO THE PATIENTS CHART, IS THE MOST ACCURATE LIST. THE LIST WAS EDITED AT THE OFFICE BY THE PROVIDER AND THEY HAVE BEEN FOLLOWING THIS LIST. I UPDATED THE MED REC WITH THE LIST ON THE CHART.
[2019-05-03] MEDS: FUROSEMIDE 40 MG/4 ML INJ (LASIX) IV SCH ×2 (10:00→22:22)
[2019-05-03] MEDS: KCL 20 MEQ TAB (K-DUR) PO SCH ×2 (11:00→22:22)
[2019-05-03] MEDS: ALLOPURINOL 100 MG (ZYLOPRIM) TAB PO SCH ×2 (11:00→22:23)
[2019-05-03] MEDS: MIDODRINE 10 MG (PROAMATINE) TAB PO SCH ×2 (11:00→22:22)
--- NOTE | 2019-05-03 11:00 | NUR ---
Pt continues to c/o nausea, reports feeling better than this morning but still poor. PT has refused all cares including, repositioning, meals and meds.
[2019-05-03 11:35] VITALS: BP 124/73
--- NOTE | 2019-05-03 13:05 | History & Physical-Hospitalist ---
History of Present Illness HPI/Chief Complaint Shamika Cain is an 79yoF with PMH HTN, CAD, CKD, CHF, who presented with weakness and malaise. She had recently been admitted with an NSTEMI and was found to have critical aortic stenosis. She was transferred to for aortic valve replacement. She was discharged to a rehab facility in [place], but she was not being cared for adequately according to her daughter and she was taken home for the past few days. She was becoming more weak and just feeling ill. She says that she was getting more short of breath. She denies fevers and chills. She was feeling nauseous and vomiting this morning which she attributes to morphine which she was given for leg pain which has now resolved. She denies abdominal pain and diarrhea. Source: patient, family Exam Limitations: no limitations Date Seen 05/03/19 Time Seen by a Provider: 08:45 Attending Physician Emanuel Flaherty MD PCP Rashaun Gonzales MD Referring Physician Date of Admission May 02, 2019 at 23:00 Home Medications & Allergies Home Medications Reviewed patient Home Medication Reconciliation performed by pharmacy medication reconciliations breeder service technician and/or nursing. Patients Allergies have been reviewed. Allergies Allergies Coded Allergies sulfamethoxazole (Verified Allergy, Intermediate, 10/05/15) tramadol (Verified Allergy, Intermediate, 10/05/15) trimethoprim (Verified Allergy, Intermediate, 10/05/15) Penicillins (Verified Allergy, Unknown, 10/05/15) codeine (Verified Allergy, Unknown, CAN TAKE MORPHINE, 10/05/15) hydrocodone (Verified Allergy, Unknown, 10/05/15) amiodarone (Verified Adverse Reaction, Mild, NAUSEA, dizziness, 02/01/16) Past Lenveqs-Iixrub-Rmqghu Hx Past Med/Social Hx: Reviewed Nursing Past Med/Soc Hx Patient Social History Alcohol Use: Denies Use Recreational Drug Use: No Smoking Status: Never a Smoker 2nd Hand Smoke Exposure: No Recent Foreign Travel: No Contact w/other who traveled: No Recent Hopitalizations: No Recent Infectious Disease Expo: No Immunizations Up To Date Tetanus Booster (TDap): Less than 5yrs Date of Pneumonia Vaccine: Aug 02, 2018 Date of Influenza Vaccine: May 20, 2018 Seasonal Allergies Seasonal Allergies: No Past Medical History Surgeries: Cardiac, Coronary Stent, Gallbladder, Hysterectomy, Oophorectomy, Orthopedic, Pacemaker, Vascular Surgery Currently Using CPAP: No Currently Using BIPAP: No Cardiac: Atrial Fibrillation, Chronic Edema/Swelling, Coronary Artery Disease, Heart Attack, Heart Murmur, High Cholesterol, Hypertension, Peripheral Vascular, Rheumatic Fever Neurological: Neuropathy, TIA : No Reproductive: No Sexually Transmitted Disease: No Hysterectomy, Menopausal Genitourinary: Bladder Infection, UTI-Chronic Gastrointestinal: C-Diff, Irritable Bowel Endocrine: Diabetes, Insulin dep HEENT: Cataract Loss of Vision: Left Hearing Impairment: Deaf Cancer: Breast Did You Recieve Any Treatments: Yes What Type of Treatment Did You: Radiation History of Blood Disorders: No Adverse Reaction to Blood High: No Family History Cardiovascular disease 19 FATHER 19 MOTHER G8 BROTHER G8 SISTER G8 SISTER G8 SISTER Completed stroke 19 FATHER G8 SISTER Diabetes mellitus 19 FATHER G8 SISTER G8 SISTER FH: cancer G8 SISTER G8 SISTER Myocardial infarction G8 BROTHER (65 YEARS OLD) Review of Systems Constitutional: malaise, weakness EENTM: no symptoms reported Respiratory: short of breath Cardiovascular: no symptoms reported Gastrointestinal: nausea, vomiting Genitourinary: no symptoms reported Musculoskeletal: see HPI Skin: no symptoms reported Psychiatric/Neurological: No Symptoms Reported Physical Exam Physical Exam Vital Signs Vital Signs - First Documented 05/02/19 21:42 Temp 35.5 Pulse 73 Resp 20 B/P (MAP) 153/78 (103) Pulse Ox 95 O2 Delivery Nasal Cannula O2 Flow Rate 2.00 Capillary Refill : Less Than 3 Seconds Height, Weight, BMI Height: 5'6.00" Weight: 223lbs. 0.5oz. [id number]; 35.89 BMI Method:Stated General Appearance: WD/WN, Mild Distress, Obese HEENT: PERRL/EOMI, Pharynx Normal, Moist Mucous Membranes Neck: Normal Inspection, Supple Respiratory: Lungs Clear, No Respiratory Distress, Decreased Breath Sounds (right sided) Cardiovascular: Regular Rate, Rhythm, No Murmur Gastrointestinal: Normal Bowel Sounds, Non Tender, Soft Extremity: Normal Inspection, Non Tender, Pedal Edema Neurologic/Psychiatric: Alert, No Motor/Sensory Deficits; No Disoriented Skin: Normal Color, Warm/Dry Lymphatic: No Adenopathy Results Results/Procedures Labs Laboratory Tests 05/02/19 21:53 05/03/19 03:30 Patient resulted labs reviewed. Imaging: Reviewed Imaging Report Assessment/Plan Admission Diagnosis Acute decompensated diastolic heart failure Admission Status: Inpatient Order (span 2 midnights) Reason for Inpatient Admission: Decompensated heart failure with large right pleural effusion Assessment and Plan Acute decompensated diastolic heart failure Large right pleural effusion Coronary artery disease Aortic stenosis s/p aortic valve replacement NSTEMI -Diuresis with Lasix -Cardiology consulted, appreciate recommendations -Pulmonology consulted for right pleural effusion -May need to hold Eliquis for thoracentesis -Consult PT/OT -XR with possible consolidation underlying effusion, check procalcitonin Nausea and vomiting -Zofran as needed -Discontinue morphine CKD -Monitor -Avoid nephrotoxins DVT Prophylaxis: already receiving therapeutic anticoagulation Diagnosis/Problems Diagnosis/Problems (1) Recurrent right pleural effusion (2) Acute diastolic heart failure Clinical Quality Measures DVT/VTE Risk/Contraindication: Risk Factor Score Per Nursin RFS Level Per Nursing on Admit: 2=Moderate CRIS WALDEN MD May 03, 2019 13:05
[2019-05-03 16:00] VITALS: BP 122/74
--- NOTE | 2019-05-03 19:15 | Consultation-Cardiology ---
HPI-Cardiology Cardiology Consultation: Date of Consultation 05/03/19 Time Seen by a Provider: 19:00 Date of Admission Attending Physician Emanuel Flaherty MD Admitting Physician Rashaun Gonzales MD Consulting Physician TEZ QUESADA MD, MA, FACP, FACC, [facility] [place], [facility] Primary oracle fusion middleware architect: Dr Bauman HPI: Chief Complaint: CC: Shortness of breath, leg swelling HPI Ms. Cain is an 79 year old female who has recently undergone TAVR at [facility]. She has been admitted to [place] [id number] from the ED. Her daughter is at the bedside. She reports the patient was released from [facility] a week ago to [facility] for PT. She states they were unhappy with care and took her home with them. She states her mother has been feeling fairly well, but has had progressive SOB and LE swelling. Pt states she is currently feeling generally unwell and nauseated after receiving IV morphine overnight for pain. She is currently not reporting any CP or palpitations. She states she continues to feel SOB, but it is somewhat better. No report of syncope or near syncope. No report of fever or chills. Review of Systems-Cardiology Review of Systems Constitutional: No chills, No fever; malaise Eyes: No vision change Ears/Nose/Throat: No epistaxis, No recent hearing loss Respiratory: As described under HPI Cardiovascular: As described under HPI Gastrointestinal: No diarrhea; nausea, vomiting Genitourinary: No hematuria Skin: No rash on exposed areas, No ulcerations on exposed areas Psychiatric/Neurological: No seizure, No syncope Hematologic: No bleeding abnormalities LHR-Gkanpk-Rydhnd Hx Patient Social History Alcohol Use: Denies Use Recreational Drug Use: No Smoking Status: Never a Smoker 2nd Hand Smoke Exposure: No Recent Foreign Travel: No Recent Infectious Disease Expo: No Hospitalization with Isolation: Denies Immunizations Up To Date Tetanus Booster (TDap): Less than 5yrs Date of Pneumonia Vaccine: Aug 02, 2018 Date of Influenza Vaccine: May 20, 2018 Past Medical History PMH As described under Assessment. Family Medical History Family Medical History: History of father, mother and several siblings with CAD. Her father had a stroke. Two sisters with DM. Family History: Cardiovascular disease 19 FATHER 19 MOTHER G8 BROTHER G8 SISTER G8 SISTER G8 SISTER Completed stroke 19 FATHER G8 SISTER Diabetes mellitus 19 FATHER G8 SISTER G8 SISTER FH: cancer G8 SISTER G8 SISTER Myocardial infarction G8 BROTHER (65 YEARS OLD) Allergies and Home Medications Allergies Coded Allergies: sulfamethoxazole (Verified Allergy, Intermediate, 10/05/15) tramadol (Verified Allergy, Intermediate, 10/05/15) trimethoprim (Verified Allergy, Intermediate, 10/05/15) Penicillins (Verified Allergy, Unknown, 10/05/15) codeine (Verified Allergy, Unknown, CAN TAKE MORPHINE, 10/05/15) hydrocodone (Verified Allergy, Unknown, 10/05/15) amiodarone (Verified Adverse Reaction, Mild, NAUSEA, dizziness, 02/01/16) Home Medications Acetaminophen 500 Mg Tablet, 500 MG PO Q6H PRN for PAIN-MILD, (Reported) Allopurinol 100 Mg Tablet, 100 MG PO DAILY, (Reported) Apixaban 2.5 Mg Tablet, 2.5 MG PO BID, (Reported) Cholecalciferol (Vitamin D3) 5,000 Unit Capsule, 5,000 UNIT PO DAILY, (Reported) Clopidogrel Bisulfate 75 Mg Tablet, 75 MG PO DAILY, (Reported) Cyanocobalamin 1,000 Mcg/Ml Inj, 1,000 MCG IJ MONTHLY, (Reported) Cyanocobalamin (Vitamin B-12) 500 Mcg Tablet, 1,000 MCG PO DAILY, (Reported) Estrogens Conjugated 30 Gm Cr, VG MoWeFr, (Reported) Insulin Aspart 100 Unit/1 Ml Susp, PER INSULIN PUMP, (Reported) Liraglutide 0.6 Mg/0.1 Ml Pen.injctr, 1.8 MG SC HS, (Reported) Metolazone 2.5 Mg Tablet, 2.5 MG PO DAILY, (Reported) Midodrine HCl 10 Mg Tablet, 10 MG PO BID, (Reported) Nitroglycerin 0.4 Mg Tab.subl, 0.4 MG SL UD PRN for CHEST PAIN, (Reported) Potassium Chloride 10 Meq Tab.er.prt, 10 MEQ PO DAILY, (Reported) Rosuvastatin Calcium 20 Mg Tablet, 20 MG PO HS, (Reported) Patient Home Medication List Home Medication List Reviewed: Yes Physical Exam-Cardiology Physical Exam Vital Signs/I&O 05/03/19 05/03/19 05/03/19 05/03/19 08:00 08:15 08:33 09:00 Temp 36.4 Pulse 69 Resp 22 B/P (MAP) 142/60 (87) Pulse Ox 95 95 O2 Delivery Nasal Cannula Nasal Cannula Nasal Cannula Nasal Cannula O2 Flow Rate 2.00 2.00 1.50 2.00 05/03/19 05/03/19 05/03/19 05/03/19 11:35 12:00 12:53 16:00 Temp 36.1 Pulse 69 63 Resp 18 B/P (MAP) 124/73 (90) Pulse Ox 98 O2 Delivery Nasal Cannula Nasal Cannula Nasal Cannula O2 Flow Rate 2.00 2.00 2.00 05/03/19 16:00 Temp 36.0 Pulse 69 Resp 18 B/P (MAP) 122/74 (90) Pulse Ox 98 O2 Delivery Nasal Cannula O2 Flow Rate 2.00 Capillary Refill : Less Than 3 Seconds Constitutional: AAO x 3, well-developed, well-nourished HEENT: hard of hearing Neck: No carotid bruit; carotid pulses are 2 + bilaterally Respiratory: No accessory muscle use, No respiratory distress; chest expansion is symmetric, chest is bilaterally symmetric, other (fair air entry with diminished breath sounds RLL) Cardiovascular: regular rate-rhythm, S1 and S2, systolic murmur Gastrointestinal: No tender; round, audible bowel sounds Rectal: deferred Extremities: other (bilat 2-3 + pitting edema) Neurologic/Psychiatric: grossly intact Skin: No rash on exposed areas, No ulcerations on exposed areas Data Review Labs Laboratory Tests 05/02/19 21:53: White Blood Count 11.4H, Red Blood Count 3.72L, Hemoglobin 10.0L, Hematocrit 32L , Mean Corpuscular Volume 85, Mean Corpuscular Hemoglobin 27, Mean Corpuscular Hemoglobin Concent 32, Red Cell Distribution Width 17.0H, Platelet Count 353, Mean Platelet Volume 9.2, Neutrophils (%) (Auto) 74, Lymphocytes (%) (Auto) 11L, Monocytes (%) (Auto) 12, Eosinophils (%) (Auto) 3, Basophils (%) (Auto) 0, Neutrophils # (Auto) 8.4H, Lymphocytes # (Auto) 1.3, Monocytes # (Auto) 1.3H, Eosinophils # (Auto) 0.4H, Basophils # (Auto) 0.0, Prothrombin Time 21.5H, INR Comment 1.8H, Activated Partial Thromboplast Time 40H, Sodium Level 131L, Potassium Level 3.7, Chloride Level 91L, Carbon Dioxide Level 28, Anion Gap 12, Blood Urea Nitrogen 16, Creatinine 1.50H, Estimat Glomerular Filtration Rate 33, BUN/Creatinine Ratio 11, Glucose Level 93, Calcium Level 8.8, Corrected Calcium 9.4, Magnesium Level 1.8, Total Bilirubin 1.1H, Aspartate Amino Transf (AST/SGOT) 21, Alanine Aminotransferase (ALT/SGPT) 12, Alkaline Phosphatase 94, Myoglobin 80.6, Troponin I 0.043H, B-Type Natriuretic Peptide 1541.1H, Total Protein 6.4, Albumin 3.3 05/02/19 21:56: C-Reactive Protein High Sensitivity 9.19H 05/02/19 22:38: Urine Color YELLOW, Urine Clarity CLEAR, Urine pH 7, Urine Specific [place] 1.010L, Urine Protein 1+H, Urine Glucose (UA) NEGATIVE, Urine Ketones NEGATIVE, Urine Nitrite NEGATIVE, Urine Bilirubin NEGATIVE, Urine Urobilinogen NORMAL, Urine Leukocyte Esterase NEGATIVE, Urine RBC (Auto) NEGATIVE, Urine RBC NONE, U rine WBC NONE, Urine Crystals PRESENTH, Urine Amorphous Sediment RARE [place] PHOSPHATEH, Urine Bacteria NEGATIVE, Urine Casts NONE, Urine Mucus NEGATIVE, Urine Culture Indicated NO 05/03/19 03:30: White Blood Count 10.1, Red Blood Count 3.72L, Hemoglobin 9.9L, Hematocrit 31L, Mean Corpuscular Volume 84, Mean Corpuscular Hemoglobin 27, Mean Corpuscular Hemoglobin Concent 32, Red Cell Distribution Width 17.0H, Platelet Count 343, Mean Platelet Volume 8.8, Neutrophils (%) (Auto) 69, Lymphocytes (%) (Auto) 14, Monocytes (%) (Auto) 13H, Eosinophils (%) (Auto) 4, Basophils (%) (Auto) 1, Neutrophils # (Auto) 7.0, Lymphocytes # (Auto) 1.4, Monocytes # (Auto) 1.3H, Eosinophils # (Auto) 0.4H, Basophils # (Auto) 0.1, Sodium Level 133L, Potassium Level 3.5L, Chloride Level 92L, Carbon Dioxide Level 29, Anion Gap 12, Blood Urea Nitrogen 16, Creatinine 1.43H, Estimat Glomerular Filtration Rate 35, BUN/Creatinine Ratio 11, Glucose Level 58*L, Calcium Level 8.6, Corrected Calcium 9.4, Total Bilirubin 1.0, Aspartate Amino Transf (AST/SGOT) 18, Alanine Aminotransferase (ALT/SGPT) 11, Alkaline Phosphatase 85, Troponin I 0.048H, Total Protein 6.0L, Albumin 3.0L, Triglycerides Level 65, Cholesterol Level 65, LDL Cholesterol Direct 35, VLDL Cholesterol 13, HDL Cholesterol 23L 05/03/19 10:00: Troponin I 0.040H 05/03/19 10:01: Procalcitonin 0.09 05/03/19 10:51: Glucometer 94 Microbiology 05/02/19 Influenza Types A,B Antigen (CHERRY) - Final, Complete Laboratory Tests 05/02/19 21:53 05/03/19 03:30 A/P-Cardiology Assessment/Admission Diagnosis S/P TAVR with a #[address] Cheema at [facility] on Apr 06, 2019 - at which time she had a chest tube placed d/t signif right sided pleural effusion (removed on 04-26-19) Lg right pleural effusion seen on CXR of 05-03-19 Mildly elevated troponin likely secondary to recent surgery and decompensated CHF (type 2 [place]) Coronary artery disease, multiple interventions in the past, reports a total of 11 stents. Multivessel disease. Cardiac catheterization was done in October 2012 showing severe stenosis in the midright coronary artery treated with 3.0 x 24 mm Promus elements stent. Severe stenosis in the proximal diagonal artery, very small artery not amenable to intervention. Repeat cardiac catheterization on November 19, [address] Burch, had a stent to the circumflex artery, the stent sizes was not described in the report. Cardiac catheterization done December 26, 2016 with balloon angioplasty to the mid circumflex for 80 percent in-stent restenosis. Patient was brought back the same day where she underwent repeat cardiac catheterization after having chest pain, underwent another balloon angioplasty and stent deployment in the distal circumflex: 3.5 x 18 mm Xience Alpine stent. Underwent cardiac catheterization on February 04, [address] Mcdonnell, which showed moderate multivessel coronary artery disease, had FFR 0.83 to the LAD and 0.91 to the left circumflex artery, treated conservatively. Most recent cardiac cath of Apr 06, [address] Bauman showed Critical aortic valve stenosis with pre ssure gradient during pullback to 60 mmHg. Severe ostial LAD stenosis, multiple stents in the LAD. Moderate to severe mid in-stent restenosis in the circumflex artery. Moderate distal right coronary artery stenosis. Elevated left ventricular end-diastolic pressure - conservative CAD management - transferred to [facility] for TAVR Peripheral arterial disease, history of nonhealing foot ulcer and stent done in 2016. Peripheral angio in September 2017 showing total occlusion of the left SFA, treated with Innova 6 x 150 from the ostium of the left SFA to the mid SFA overlapping with old stent with excellent results. Underwent peripheral angiogram on September 02, [address] Sotomayor with left SFA popliteal atherectomy and angioplasty, left anterior tibial artery angioplasty with widely patent vessels following intervention Intraocular hemorrhage, underwent multiple laser procedure, she lost vision in her left eye last week and seen by Dr. Mckeon and she is following with Dr. Hdez in [place] Echocardiogram of Apr 06, 2019 showed LVEF 55-65%. Severe Ao stenosis with mean gradient 24, valve measuring 0.8 cm2. Mild to mod TR. PASP 50-55mmHg Labile hypertension Hyperlipidemia - Crestor (reported intolerance to Lipitor) Diabetes mellitus, followed and managed by primary care physician. Sick sinus syndrome, history of permanent pacemaker placement. Domeetronic device, checked in November 2018 showing good sensing and capture activity, 1 high atrial rhythm Carotid stenosis, history of right carotid endarterectomy. CTA of neck done on February 01, 2016 revealed no significant stenosis in the internal carotid arteries. Prominent focus of stenosis in the distal aspect of the left vertebral artery at the foramen magnum and level dominant right vertebral artery demonstrates no significant stenosis. Carotid ultrasound in April 2018 showed mild bilateral disease Paroxysmal atrial fibrillation OAC with Eliquis Intolerance to amiodarone. 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 followed by Dr. Palomino, currently in remission. Chronic renal insufficiency, stage III renal disease, followed by Dr. Long, continue to monitor Discussion and Recomendations Complex management due to multiple comorbidities Diuretic Echo Request records from recent TAVR at [facility] Nausea possibly r/t administration of morphine, which pt and daughter states she does not tolerate - management per Medical Service Management of DM per medical services Lg right pleural effusion see on CXR - consider Pulmonary consult for thoracentesis Continue medications from home including OAC d/t PAF Continue Plavix d/t CAD Replace electrolytes Further recs will be based on her hospital course Clinical Quality Measures DVT/VTE Risk/Contraindication: Risk Factor Score Per Nursin RFS Level Per Nursing on Admit: 2=Moderate TEZ QUESADA MD FACP FAC CCDS May 03, 2019 19:15
[2019-05-03 20:00] VITALS: BP 115/68
[2019-05-03] MEDS: ROSUVASTATIN 20 MG (CRESTOR) TABLET PO SCH (22:23)
[2019-05-04] VITALS: BP 109/63
[2019-05-04 03:42] LABS: BASOPHILS % (AUTO) 0 % (0-10); EOSINOPHILS # (AUTO) 0.3 10^3/uL (0.0-0.3); EOSINOPHILS % (AUTO) 3 % (0-10); HEMATOCRIT 32 % (35-52); HEMOGLOBIN 10.1 G/DL (11.5-16.0); LYMPHOCYTES # (AUTO) 0.9 X 10^3 (1.0-4.0); LYMPHOCYTES % (AUTO) 9 % (12-44); MEAN CORPUSCULAR HEMOGLOBIN 26 PG (25-34); MEAN CORPUSCULAR HGB CONC 31 G/DL (32-36); MEAN CORPUSCULAR VOLUME 84 FL (80-99); MEAN PLATELET VOLUME 8.7 FL (7.4-10.4); MONOCYTES # (AUTO) 1.2 X 10^3 (0.0-1.0); MONOCYTES % (AUTO) 12 % (0-12); NEUTROPHILS # (AUTO) 7.6 X 10^3 (1.8-7.8); NEUTROPHILS % (AUTO) 76 % (42-75); PLATELET COUNT 369 10^3/uL (130-400); RED CELL DISTRIBUTION WIDTH 17.3 % (10.0-14.5)
[2019-05-04 04:00] VITALS: BP 109/69
[2019-05-04 04:09] LABS: CALCIUM 8.5 MG/DL (8.5-10.1); CREATININE SERUM 1.54 MG/DL (0.60-1.30); MAGNESIUM 1.5 MG/DL (1.6-2.4); POTASSIUM 4.2 MMOL/L (3.6-5.0)
[2019-05-04] MEDS: inSUlin ASPART (NovoLOG) 1 UNIT/0.01 ML (CHARGE PER UNIT) SC SCH ×5 (05:42→20:51)
--- NOTE | 2019-05-04 06:11 | Pulmonary Consultation ---
History of Present Illness History of Present Illness Date of Consultation 05/04/19 06:06 Time Seen by Provider: 06:06 Date of Admission History of Present Illness 79yo with hx of recent TAVR at [facility] and was just discharged 1 wk ago. PT was discharged to [facility] however family was unhappy with care and took family home. Since that time pt has had progressive SOB and Bilateral LE edema. Pt was found to have large right effusion. No fever, NS, Chills. I am consulted for pulmonary management. Allergies and Home Medications Allergies Coded Allergies: morphine (Verified Allergy, Intermediate, Nausea, 05/04/19) sulfamethoxazole (Verified Allergy, Intermediate, 10/05/15) tramadol (Verified Allergy, Intermediate, 10/05/15) trimethoprim (Verified Allergy, Intermediate, 10/05/15) Penicillins (Verified Allergy, Unknown, 10/05/15) codeine (Verified Allergy, Unknown, CAN TAKE MORPHINE, 10/05/15) hydrocodone (Verified Allergy, Unknown, 10/05/15) amiodarone (Verified Adverse Reaction, Mild, NAUSEA, dizziness, 02/01/16) Home Medications Acetaminophen 500 Mg Tablet, 500 MG PO Q6H PRN for PAIN-MILD, (Reported) Allopurinol 100 Mg Tablet, 100 MG PO DAILY, (Reported) Apixaban 2.5 Mg Tablet, 2.5 MG PO BID, (Reported) Cholecalciferol (Vitamin D3) 5,000 Unit Capsule, 5,000 UNIT PO DAILY, (Reported) Clopidogrel Bisulfate 75 Mg Tablet, 75 MG PO DAILY, (Reported) Cyanocobalamin 1,000 Mcg/Ml Inj, 1,000 MCG IJ MONTHLY, (Reported) Cyanocobalamin (Vitamin B-12) 500 Mcg Tablet, 1,000 MCG PO DAILY, (Reported) Estrogens Conjugated 30 Gm Cr, VG MoWeFr, (Reported) Insulin Aspart 100 Unit/1 Ml Susp, PER INSULIN PUMP, (Reported) Liraglutide 0.6 Mg/0.1 Ml Pen.injctr, 1.8 MG SC HS, (Reported) Metolazone 2.5 Mg Tablet, 2.5 MG PO DAILY, (Reported) Midodrine HCl 10 Mg Tablet, 10 MG PO BID, (Reported) Nitroglycerin 0.4 Mg Tab.subl, 0.4 MG SL UD PRN for CHEST PAIN, (Reported) Potassium Chloride 10 Meq Tab.er.prt, 10 MEQ PO DAILY, (Reported) Rosuvastatin Calcium 20 Mg Tablet, 20 MG PO HS, (Reported) Past Jfdtutp-Ddrinu-Giqmmd Hx Past Med/Social Hx: Reviewed Nursing Past Med/Soc Hx Patient Social History Alcohol Use: Denies Use Recreational Drug Use: No Smoking Status: Never a Smoker 2nd Hand Smoke Exposure: No Recent Foreign Travel: No Contact w/Someone Who Travel: No Recent Infectious Disease Expo: No Recent Hopitalizations: No Immunizations Up To Date Tetanus Booster (TDap): Less than 5yrs Date of Pneumonia Vaccine: Aug 02, 2018 Date of Influenza Vaccine: May 20, 2018 Seasonal Allergies Seasonal Allergies: No Past Medical History Surgeries: Yes (PACEMAKER, CAROTID ARTERY, HEART CATH-STENTS /ANGIOPLASTY) Cardiac, Coronary Stent, Gallbladder, Hysterectomy, Oophorectomy, Orthopedic, Pacemaker, Vascular Surgery Respiratory: Yes Sleep Apnea Currently Using CPAP: No Currently Using BIPAP: No Cardiac: Yes (PACEMAKER, CHF, STENTS X12, AORTIC VALVE REPLACED, CHEST TUBES) Atrial Fibrillation, Chronic Edema/Swelling, Coronary Artery Disease, Heart Attack, Heart Murmur, High Cholesterol, Hypertension, Peripheral Vascular, Rheumatic Fever Neurological: Yes (TIA AFTER STENT IN JUNE) Neuropathy, TIA : No Reproductive Disorders: No 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 ) Endocrine: Yes (INSULIN PUMP, 3 THYROID NODULES) Diabetes, Insulin dep Cataract Loss of Vision: Left Hearing Impairment: Deaf Cancer: Yes (BREAST CA 2010) Breast Did You Recieve Any Treatments: Yes What Type of Treatment Did You: Radiation Psychosocial: No Integumentary: Yes (DIABETIC FOOT ULCER ON LEFT--PT STATES IS NOW HEALED. ) Blood Disorders: No Adverse Reaction/Blood Tranf: No Family Medical History Cardiovascular disease 19 FATHER 19 MOTHER G8 BROTHER G8 SISTER G8 SISTER G8 SISTER Completed stroke 19 FATHER G8 SISTER Diabetes mellitus 19 FATHER G8 SISTER G8 SISTER FH: cancer G8 SISTER G8 SISTER Myocardial infarction G8 BROTHER (65 YEARS OLD) Sepsis Event Evaluation Height, Weight, BMI Height: 5'6.00" Weight: 223lbs. 0.5oz. 101.979164yx; 35.89 BMI Method:Stated Exam Exam Vital Signs Date Time Temp Pulse Resp B/P (MAP) Pulse Ox O2 Delivery O2 Flow Rate FiO2 05/04/19 04:00 36.2 77 16 109/69 (82) 95 Nasal Cannula 2.00 05/04/19 04:00 Nasal Cannula 2.00 05/04/19 01:00 68 05/04/19 00:00 36.3 76 17 109/63 (78) 96 Nasal Cannula 2.00 05/04/19 00:00 Nasal Cannula 2.00 05/03/19 21:00 96 Nasal Cannula 2.00 05/03/19 20:00 Nasal Cannula 2.00 05/03/19 20:00 36.2 72 16 115/68 (84) 97 Nasal Cannula 2.00 05/03/19 19:01 67 05/03/19 16:00 36.0 69 18 122/74 (90) 98 Nasal Cannula 2.00 05/03/19 16:00 Nasal Cannula 2.00 05/03/19 12:53 63 05/03/19 12:00 Nasal Cannula 2.00 05/03/19 11:35 36.1 69 18 124/73 (90) 98 Nasal Cannula 2.00 05/03/19 09:00 95 Nasal Cannula 2.00 05/03/19 08:33 Nasal Cannula 1.50 05/03/19 08:15 36.4 69 22 142/60 (87) 95 Nasal Cannula 2.00 05/03/19 08:00 Nasal Cannula 2.00 05/03/19 06:59 77 I & O 05/04/19 07:00 Intake Total 600 ml Output Total 2500 ml Balance -1900 ml Height & Weight Height: 5'6.00" Weight: 223lbs. 0.5oz. 101.135952ci; 35.89 BMI Method:Stated General Appearance: WD/WN, Mild Distress, Obese HEENT: PERRL/EOMI, Pharynx Normal, Moist Mucous Membranes Neck: Normal Inspection, Supple Respiratory: Lungs Clear, No Respiratory Distress, Decreased Breath Sounds (right sided) Cardiovascular: Regular Rate, Rhythm, No Murmur Capillary Refill: Less Than 3 Seconds Extremity: Normal Inspection, Non Tender, Pedal Edema Neurologic/Psychiatric: Alert, No Motor/Sensory Deficits; No Disoriented Skin: Normal Color, Warm/Dry Lymphatic: No Adenopathy Results Lab Laboratory Tests 05/02/19 21:53 05/03/19 03:30 05/04/19 03:25 Assessment/Plan Assessment/Plan Hypoxia/progressive SOB with large right pleural effusion -Eliquis was held at admission -PT is on Plavix -Risk and benefits of thoracentesis explained to pt. -Continue lasix for now however will need to monitor renal function close Hx of breast cancer -Will do cytology on pleural fluid Renal failure/CKD -Known to nephrology -monitor -Cautious Diuresis S/p TAVR 04/06/19 NSTEMI type II EF 55-65% 04/07 -Cardiology following PAD with hx of nonhealing foot ulcer DM SSS hx pacemaker Carotid stenosis P AFIB YURIY DENIS DO May 04, 2019 06:11
--- NOTE | 2019-05-04 07:22 | Pulmonary Procedures ---
Pulmonary Procedures Date of Procedure Date of Service: May 04, 2019 Procedure: US guided complex right thoracentesis Preop DX: Right large pleural effusion post op DX: Same ([1800cc of dark red fluid) Complications: None After informed consent obtained US was used to localize pleural fluid. Pt has [bilateral R>L] pleural effusions. Skin was anesthetized at approximately the 10th ICS posterior axillary line. Thoracentesis needle was advanced through the right 10th ICS posterior axillary line. Needle was removed and catheter left in place.1800cc of dark red fluid obtained using vacuum bottles. Catheter was then removed. Pt tolerated procedure well. No complications noted. Stat CXR is pendi ng. YURIY DENIS DO May 04, 2019 07:22
[2019-05-04 08:00] VITALS: BP 95/69
[2019-05-04] MEDS: FUROSEMIDE 40 MG/4 ML INJ (LASIX) IV SCH ×2 (08:05→20:51)
[2019-05-04] MEDS: MAGNESIUM 1 GM/100 ML IVPB 100 ML IV SCH ×2 (08:05→08:06)
[2019-05-04] MEDS: MIDODRINE 10 MG (PROAMATINE) TAB PO SCH ×2 (08:05→20:51)
[2019-05-04] MEDS: ALLOPURINOL 100 MG (ZYLOPRIM) TAB PO SCH ×2 (08:06→20:51)
[2019-05-04] MEDS: KCL 20 MEQ TAB (K-DUR) PO SCH ×2 (08:06→20:51)
[2019-05-04 10:02] LABS: GLUCOSE,BODY FLUID 103 MG/DL; LDH,BODY FLUID 920 U/L
--- NOTE | 2019-05-04 10:20 | Diagnostic Imaging Report ---
INDICATION: Pleural effusion, follow-up. Time of exam: 9:45 AM Correlation is made with prior chest from one day earlier. The heart size is stable. Dual-lead cardiac pacemaker remains in place. There has been significant reduction in right-sided pleural effusion. This is now small. Patchy airspace infiltrates right mid and lower lung field are noted. Left lung is clear. There is no pneumothorax. IMPRESSION: Significant reduction in right-sided pleural effusion. Patchy airspace infiltrates on the right are noted. Dictated by: Dictated on workstation # [id number]
--- NOTE | 2019-05-04 10:45 | NUR ---
Pastoral care visit, pt asleep, resting quietly.
[2019-05-04 10:59] LABS: BODY FLUID APPEARENCE MKD BLDY; BODY FLUID COLOR BROWN; BODY FLUID RBC COUNT 400000 /uL; BODY FLUID SOURCE THORACEN; BODY FLUID WBC TOTAL COUNT 3280 /uL
[2019-05-04 11:05] LABS: LYMPHOCYTES,BODY FLUID 59 %
[2019-05-04 11:08] LABS: BODY FLUID PH 7.7
[2019-05-04 12:00] VITALS: BP 95/58
--- NOTE | 2019-05-04 13:41 | Progress Note - Hospitalist ---
Subjective HPI/CC On Admission Date Seen by Provider: May 04, 2019 Time Seen by Provider: 13:34 weakness and malaise Subjective/Events-last exam She reports feeling better this morning. She has not had any nausea or vomiting. She denies any fevers or chills. She continues to have dyspnea but has not worsened. She had her thoracentesis. She is asking about when she can discharge. She wants to go to [facility] at that time. She denies any abdominal pain. Objective Exam Vital Signs Vital Signs Date Time Temp Pulse Resp B/P (MAP) Pulse Ox O2 Delivery O2 Flow Rate FiO2 05/04/19 12:24 75 05/04/19 12:00 Nasal Cannula 2.00 05/04/19 09:00 96 05/04/19 08:00 35.9 18 95/69 (78) Capillary Refill : Less Than 3 Seconds General Appearance: No Apparent Distress, WD/WN Respiratory: Lungs Clear, Normal Breath Sounds, No Respiratory Distress Cardiovascular: Regular Rate, Rhythm, No Edema Gastrointestinal: Normal Bowel Sounds, Non Tender, Soft Extremity: Normal Inspection, Non Tender, Pedal Edema Neurologic/Psychiatric: Alert, Oriented x3, No Motor/Sensory Deficits, Normal Mood/Affect Skin: Normal Color, Warm/Dry Lymphatic: No Adenopathy Results/Procedures Lab Laboratory Tests 05/04/19 03:25 Patient resulted labs reviewed. Imaging: Reviewed Imaging Report Assessment/Plan Assessment and Plan Assess & Plan/Chief Complaint Acute decompensated diastolic heart failure Hemothorax Coronary artery disease Aortic stenosis s/p aortic valve replacement NSTEMI -Diuresis with Lasix -Cardiology consulted, appreciate recommendations -Pulmonology consulted for right pleural effusion -Thoracentesis performed this morning, nearly 2 L of bloody fluid removed -Likely resolving postoperative hemothorax, repeat chest x-ray tomorrow -Hold Eliquis -Initial procalcitonin negative, repeat today -Consult PT/OT Nausea and vomiting, resolved -Zofran as needed -Discontinue morphine CKD -Continue to monitor -Avoid nephrotoxins DVT Prophylaxis: SCDs Diagnosis/Problems Diagnosis/Problems (1) Postoperative hemothorax Status: Acute (2) Recurrent right pleural effusion Status: Acute (3) Acute diastolic heart failure Status: Acute Clinical Quality Measures DVT/VTE Risk/Contraindication: Risk Factor Score Per Nursin RFS Level Per Nursing on Admit: 2=Moderate CRIS WALDEN MD May 04, 2019 13:41
[2019-05-04 16:00] VITALS: BP 94/58
[2019-05-04 20:00] VITALS: BP 97/59
[2019-05-04] MEDS: ROSUVASTATIN 20 MG (CRESTOR) TABLET PO SCH (20:51)
[2019-05-05 00:24] VITALS: BP 116/69
[2019-05-05 03:43] LABS: BASOPHILS % (AUTO) 0 % (0-10); EOSINOPHILS # (AUTO) 0.2 10^3/uL (0.0-0.3); EOSINOPHILS % (AUTO) 2 % (0-10); HEMATOCRIT 32 % (35-52); HEMOGLOBIN 9.9 G/DL (11.5-16.0); LYMPHOCYTES # (AUTO) 1.2 X 10^3 (1.0-4.0); LYMPHOCYTES % (AUTO) 12 % (12-44); MEAN CORPUSCULAR HEMOGLOBIN 26 PG (25-34); MEAN CORPUSCULAR HGB CONC 31 G/DL (32-36); MEAN CORPUSCULAR VOLUME 84 FL (80-99); MONOCYTES # (AUTO) 1.4 X 10^3 (0.0-1.0); MONOCYTES % (AUTO) 14 % (0-12); NEUTROPHILS # (AUTO) 7.3 X 10^3 (1.8-7.8); NEUTROPHILS % (AUTO) 72 % (42-75); PLATELET COUNT 385 10^3/uL (130-400); RED CELL DISTRIBUTION WIDTH 17.7 % (10.0-14.5); WHITE BLOOD COUNT 10.1 10^3/uL (4.3-11.0)
[2019-05-05 04:06] LABS: CALCIUM 8.1 MG/DL (8.5-10.1); CREATININE SERUM 2.04 MG/DL (0.60-1.30); POTASSIUM 3.8 MMOL/L (3.6-5.0)
[2019-05-05 04:32] VITALS: BP 106/64
--- NOTE | 2019-05-05 05:37 | Pulmonary Progress Note ---
Subjective Time Seen by a Provider: 05:37 Sepsis Event Evaluation Height, Weight, BMI Height: 5'6.00" Weight: 223lbs. 0.5oz. 101.486265ub; 35.89 BMI Method:Stated Exam Exam Vital Signs Date Time Temp Pulse Resp B/P (MAP) Pulse Ox O2 Delivery O2 Flow Rate FiO2 05/05/19 04:32 36.0 62 16 106/64 (78) 98 Nasal Cannula 2.00 05/05/19 04:00 Room Air 2.00 05/05/19 00:53 76 05/05/19 00:24 36.3 70 18 116/69 (85) 95 Nasal Cannula 2.00 05/05/19 00:00 Room Air 2.00 05/04/19 23:29 Nasal Cannula 2.00 05/04/19 21:00 96 Room Air 05/04/19 20:00 37.5 60 17 97/59 (72) 97 Nasal Cannula 2.00 05/04/19 20:00 Room Air 05/04/19 18:52 78 05/04/19 16:00 Nasal Cannula 2.00 05/04/19 16:00 37.1 83 15 94/58 (70) 90 Room Air 05/04/19 12:24 75 05/04/19 12:00 Nasal Cannula 2.00 05/04/19 12:00 36.4 73 16 95/58 (70) 92 05/04/19 09:00 96 Nasal Cannula 2.00 05/04/19 08:00 Nasal Cannula 2.00 05/04/19 08:00 35.9 85 18 95/69 (78) 95 Nasal Cannula 2.00 05/04/19 07:00 86 I & O 05/05/19 07:00 Intake Total 740 ml Output Total 925 ml Balance -185 ml Height & Weight Height: 5'6.00" Weight: 223lbs. 0.5oz. 101.736927kv; 35.89 BMI Method:Stated General Appearance: No Apparent Distress, WD/WN HEENT: PERRL/EOMI, Pharynx Normal, Moist Mucous Membranes Neck: Normal Inspection, Supple Respiratory: Lungs Clear, Normal Breath Sounds, No Respiratory Distress Cardiovascular: Regular Rate, Rhythm, No Edema Capillary Refill: Less Than 3 Seconds Extremity: Normal Inspection, Non Tender, Pedal Edema Neurologic/Psychiatric: Alert, Oriented x3, No Motor/Sensory Deficits, Normal Mood/Affect Skin: Normal Color, Warm/Dry Lymphatic: No Adenopathy Results Lab Laboratory Tests 05/04/19 03:25 05/05/19 03:15 Assessment/Plan Assessment/Plan Hypoxia/progressive SOB with large right pleural effusion -Hemothorax s/p thoracentesis -repeat CXR Hx of breast cancer - cytology -pending on pleural fluid Renal failure/CKD -Known to nephrology -monitor S/p TAVR 04/06/19 NSTEMI type II EF 55-65% 04/07 -Cardiology following PAD with hx of nonhealing foot ulcer DM SSS hx pacemaker Carotid stenosis P AFIB YURIY DENIS DO May 05, 2019 05:37
[2019-05-05] MEDS: inSUlin ASPART (NovoLOG) 1 UNIT/0.01 ML (CHARGE PER UNIT) SC SCH ×3 (06:12→11:57)
--- NOTE | 2019-05-05 06:56 | Diagnostic Imaging Report ---
Indication: Shortness of breath Portable chest 6:41 AM There is a dual-chamber pacemaker. There is right pleural effusion. There is no infiltrate or atelectasis in the right lower lung IMPRESSION: Right lower lung consolidation with effusion. This appears to have changed unfavorably since the previous day's chest exam. Dictated by: Dictated on workstation # [id number]
[2019-05-05 07:42] VITALS: BP 100/63
[2019-05-05] MEDS: KCL 20 MEQ TAB (K-DUR) PO SCH (07:59)
[2019-05-05] MEDS: MIDODRINE 10 MG (PROAMATINE) TAB PO SCH (07:59)
[2019-05-05] MEDS: ALLOPURINOL 100 MG (ZYLOPRIM) TAB PO SCH (07:59)
[2019-05-05] MEDS ORDERED: FUROSEMIDE 40 MG (LASIX) TAB PO SCH (09:00)
--- NOTE | 2019-05-05 10:28 | NUR ---
[facility] is holding a bed for pt and will accept when medically ready for discharge. They would like Skilled orders for Physical Therapy , Occupational and Speech therapies. will follow and assist.
[2019-05-05] MEDS ORDERED: FURO40TA4 PO (10:57)
--- NOTE | 2019-05-05 11:29 | Discharge Summary ---
Discharge Summary Reconcile Patient Problems Problems Reviewed?: Yes Hospital Course Hospital Course Date of Admission: May 02, 2019 at 23:00 Admission Diagnosis : Acute heart failure exacerbation Family Physician/Provider: Rashaun Gonzales MD Date of Discharge: 05/05/19 Discharge Diagnosis: Acute heart failure exacerbation, postoperative hemothorax Hospital Course: Shamika Cain an 79-year-old female with past medical history of hypertension, congestive heart failure, chronic kidney disease, coronary artery disease status post 3 vessel bypass, severeaortic stenosis status post TAVR, who presented with shortness of breath following her recent bypass and aortic valve surgery. Following the surgery she had been at a senior living facility here in [place] but she had not been receiving adequate care according to her daughter. They had taken her home and they have been caring for her for a few days. She continued to get more short of breath and weak and that is when she was brought in. She was diuresed with IV Lasix for an acute heart failure exacerbation. She also had a a moderate right pleural effusion. Pulmonology was consulted and performed a thoracentesis which revealed a hemothorax. Her hemoglobin remained stable and the effusion did not reaccumulate. Her Eliquis was held on discharge and she will follow up with Dr. Bauman in cardiology clinic. She will follow up with Dr. Topete in about 2 weeks. She'll follow-up with her primary care physician, Dr. Gonzales, with repeat labs and chest x-ray early next week. Labs and Pending Lab Test: Laboratory Tests 05/05/19 03:15: White Blood Count 10.1, Red Blood Count 3.80L, Hemoglobin 9.9L, Hematocrit 32L, Mean Corpuscular Volume 84, Mean Corpuscular Hemoglobin 26, Mean Corpuscular Hemoglobin Concent 31L, Red Cell Distribution Width 17.7H, Platelet Count 385, Mean Platelet Volume 9.0, Neutrophils (%) (Auto) 72, Lymphocytes (%) (Auto) 12, Monocytes (%) (Auto) 14H, Eosinophils (%) (Auto) 2, Basophils (%) (Auto) 0, Neutrophils # (Auto) 7.3, Lymphocytes # (Auto) 1.2, Monocytes # (Auto) 1.4H, Eosinophils # (Auto) 0.2, Basophils # (Auto) 0.0, Sodium Level 131L, Potassium Level 3.8, Chloride Level 86L, Carbon Dioxide Level 34H, Anion Gap 11, Blood Urea Nitrogen 28H, Creatinine 2.04H, Estimat Glomerular Filtration Rate 23, BUN/Creatinine Ratio 14, Glucose Level 263H, Calcium Level 8.1L, B-Type Natriuretic Peptide 777.9H Microbiology 05/04/19 Gram Stain - Final, Resulted 05/04/19 Body Fluid Culture, Resulted Pending 05/02/19 Influenza Types A,B Antigen (CHERRY) - Final, Complete Home Meds Active Furosemide 40 Mg Tablet 40 Mg PO DAILY 30 Days Reported Vitamin B-12 (Cyanocobalamin (Vitamin B-12)) 500 Mcg Tablet 1,000 Mcg PO DAILY Tylenol Extra Strength (Acetaminophen) 500 Mg Tablet 500 Mg PO Q6H PRN Potassium Chloride 10 Meq Tab.er.prt 10 Meq PO DAILY Midodrine HCl 10 Mg Tablet 10 Mg PO BID Allopurinol 100 Mg Tablet 100 Mg PO DAILY Eliquis (Apixaban) 2.5 Mg Tablet 2.5 Mg PO BID Vitamin D3 (Cholecalciferol (Vitamin D3)) 5,000 Unit Capsule 5,000 Unit PO DAILY Premarin (Estrogens Conjugated) 30 Gm Cr VG MOWEFR Rosuvastatin Calcium 20 Mg Tablet 20 Mg PO HS Metolazone 2.5 Mg Tablet 2.5 Mg PO DAILY Victoza 2-Luis Enrique (Liraglutide) 0.6 Mg/0.1 Ml Pen.injctr 1.8 Mg SC HS Nitroglycerin 0.4 Mg Tab.subl 0.4 Mg SL UD PRN Cyanocobalamin Injection (Cyanocobalamin) 1,000 Mcg/Ml Inj 1,000 Mcg IJ MONTHLY Clopidogrel (Clopidogrel Bisulfate) 75 Mg Tablet 75 Mg PO DAILY Novolog (Insulin Aspart) 100 Unit/1 Ml Susp PER INSULIN PUMP Instructions to Patient/Family Assessment/Instructions Take medications as prescribed. Hold Eliquis at this time. Begin taking Lasix. Follow up with Dr. Bauman in cardiology clinic. Follow up with Dr. Topete and pulmonology clinic. Follow-up with Dr. Gonzales, your primary care physician. Skilled NF Admit to: [facility] Certification (SNF) I certify that SNF services are required to be given on an inpatient basis because of the above named patient's need for senior living care on a continuing basis for the conditions(s) for which he/she was receiving inpatient hospital services prior to his/her transfer to the SNF. [facility] Facility Order: Nursing Services, Building Drafter-Evaluate & Treat, Physical Therapy-Evaluate & Treat Oxygen Delivery Method: Room Air Discharge Diet: Low Sodium Diet Daily Activity as Tolerated: Yes Resuscitation Status: Full Code Cris Waldne May 05, 2019 11:02 Discharge Physical Exam General: Alert, Oriented X3, Cooperative, No Acute Distress HEENT: Atraumatic, EOMI, Mucous Memb Moist/[place] Lungs: Clear to Auscultation, Normal Air Movement Heart: Regular Rate, No Murmurs Abdomen: Normal Bowel Sounds, Soft, No Tenderness Extremities: Other (2+ peripheral edema) Skin: No Rashes, No Significant Lesion Psych/Mental Status: Mental Status NL, Mood NL CRIS WALDEN MD May 05, 2019 11:29
[2019-05-05 12:00] VITALS: BP 100/46
[2019-05-05] MEDS ORDERED: APIX2.5T PO ×3 (14:14→14:16)
[2019-05-05 15:36] VITALS: BP 117/68
--- NOTE | 2019-05-05 16:06 | NUR ---
Arrangements completed for pt to be discharged to the Skilled Unit at [facility]. Discharge orders and History and Physical, recent physician evaluations and progress notes sent as well as discharge instructions. [facility] provided transport.
== END 2019-05-05 15:40 | DRG 280 ==
LOC: EDUNIT# 21:40 → ER 21:41 → CSD 23:00
PROVIDERS: ADMIT Internal Medicine; ATTEND Internal Medicine
PROC: 0W993ZZ Drainage of Right Pleural Cavity, Percutaneous Approach (ICD-10-PCS; principal; 2019-05-04)
DX: I13.0 Hypertensive heart and chronic kidney disease with heart failure and stage 1 through stage 4 chronic kidney disease, or unspecified chronic kidney disease (principal); I50.31 Acute diastolic (congestive) heart failure; N18.3 Chronic kidney disease, stage 3 (moderate); J90 Pleural effusion, not elsewhere classified; I21.A1 Myocardial infarction type 2; T82.855A Stenosis of coronary artery stent, initial encounter; J94.2 Hemothorax; I25.10 Atherosclerotic heart disease of native coronary artery without angina pectoris; D64.9 Anemia, unspecified; I48.0 Paroxysmal atrial fibrillation; I70.209 Unspecified atherosclerosis of native arteries of extremities, unspecified extremity; E11.40 Type 2 diabetes mellitus with diabetic neuropathy, unspecified; E11.51 Type 2 diabetes mellitus with diabetic peripheral angiopathy without gangrene; G47.30 Sleep apnea, unspecified; G60.0 Hereditary motor and sensory neuropathy; E78.00 Pure hypercholesterolemia, unspecified; I49.5 Sick sinus syndrome; E04.2 Nontoxic multinodular goiter; Z23 Encounter for immunization; K58.9 Irritable bowel syndrome, unspecified; Z95.2 Presence of prosthetic heart valve; Z95.0 Presence of cardiac pacemaker; Z95.5 Presence of coronary angioplasty implant and graft; Z79.01 Long term (current) use of anticoagulants; Z79.02 Long term (current) use of antithrombotics/antiplatelets; Z86.73 Personal history of transient ischemic attack (TIA), and cerebral infarction without residual deficits; Z95.820 Peripheral vascular angioplasty status with implants and grafts; Z79.4 Long term (current) use of insulin; Z85.3 Personal history of malignant neoplasm of breast; Z92.3 Personal history of irradiation
CPT/HCPCS: 36415; 51702; 71045; 80048; 80053; 80061; 81000; 82945; 82962; 83615; 83735; 83874; 83880; 83986; 84100; 84145; 84157; 84484; 85025; 85610; 85730; 86141; 87070; 87205; 87804; 89051; 93005; 93041; 94664

== ENCOUNTER 2019-05-07 11:26 | Observation (INO) | payer MEDICARE, MEDICAID ==
[~2019-05-07] VITALS: Ht 167 cm; Wt 93.8 kg
[~2019-05-07 11:26] MED LIST changes: +ACET-2267 PO; +CYAN500T62 PO; +MIDO10TA PO; +POTA10TA36 PO
[2019-05-07] MEDS ORDERED: ASPIRIN 81 MG CHEW (CHILDREN'S ASA) PO ONE (11:45)
[2019-05-07 11:52] LABS: BASOPHILS % (AUTO) 0 % (0-10); EOSINOPHILS # (AUTO) 0.3 10^3/uL (0.0-0.3); EOSINOPHILS % (AUTO) 3 % (0-10); HEMATOCRIT 31 % (35-52); HEMOGLOBIN 9.7 G/DL (11.5-16.0); LYMPHOCYTES # (AUTO) 1.3 X 10^3 (1.0-4.0); LYMPHOCYTES % (AUTO) 13 % (12-44); MEAN CORPUSCULAR HEMOGLOBIN 26 PG (25-34); MEAN CORPUSCULAR HGB CONC 31 G/DL (32-36); MEAN CORPUSCULAR VOLUME 83 FL (80-99); MEAN PLATELET VOLUME 8.8 FL (7.4-10.4); MONOCYTES # (AUTO) 1.3 X 10^3 (0.0-1.0); MONOCYTES % (AUTO) 13 % (0-12); NEUTROPHILS # (AUTO) 6.8 X 10^3 (1.8-7.8); NEUTROPHILS % (AUTO) 71 % (42-75); PLATELET COUNT 366 10^3/uL (130-400); RED CELL DISTRIBUTION WIDTH 17.3 % (10.0-14.5); WHITE BLOOD COUNT 9.7 10^3/uL (4.3-11.0)
--- NOTE | 2019-05-07 11:53 | ED General ---
General Chief Complaint: General Problems/Pain Stated Complaint: L ARM PAIN Nursing Triage Note: Patient reports L arm pain and not feeling well. states is not able to do anything Nursing Sepsis Screen: No Definite Risk Source of Information: Patient Exam Limitations: No Limitations History of Present Illness Date Seen by Provider: May 07, 2019 Time Seen by Provider: 11:51 Initial Comments To ER from [facility] where she is currently at for rehabilitation with reports of generally not feeling well since this morning and intense left shoulder pain worse with movement. No known injury, pain has completely subsided now that she has arrived at the emergency room. She was at the [facility] last week for TAVR , subsequently developed a right-sided pleural effusion and had a chest tube placed. However her pain today was left- sided. She denies shortness of breath but states that she cannot take a deep breath because of pain on the right side. She has prior history of peripheral vascular disease paroxysmal A. fib--on Eliquis and Plavix, sick sinus syndrome with pacemaker placement, stenosis of the right carotid artery with subsequent right carotid endarterectomy, chronic kidney disease, hyperlipidemia, type 2 diabetes, breast cancer. Timing/Duration: 1-2 Days Severity: Moderate Allergies and Home Medications Allergies Coded Allergies: morphine (Verified Allergy, Intermediate, Nausea, 05/04/19) sulfamethoxazole (Verified Allergy, Intermediate, 10/05/15) tramadol (Verified Allergy, Intermediate, 10/05/15) trimethoprim (Verified Allergy, Intermediate, 10/05/15) Penicillins (Verified Allergy, Unknown, 10/05/15) codeine (Verified Allergy, Unknown, CAN TAKE MORPHINE, 10/05/15) hydrocodone (Verified Allergy, Unknown, 10/05/15) amiodarone (Verified Adverse Reaction, Mild, NAUSEA, dizziness, 02/01/16) Home Medications Acetaminophen 500 Mg Tablet, 500 MG PO Q6H PRN for PAIN-MILD, (Reported) Allopurinol 100 Mg Tablet, 100 MG PO DAILY, (Reported) Apixaban 2.5 Mg Tablet, 2.5 MG PO BID HOLD- FOLLOW UP WITH DR NOVOA ON WHEN TO RESTART Prescribed by: AGUSTÍN GONZALEZ on 05/05/19 2556 Cholecalciferol (Vitamin D3) 5,000 Unit Capsule, 5,000 UNIT PO DAILY, (Reported) Clopidogrel Bisulfate 75 Mg Tablet, 75 MG PO DAILY, (Reported) Cyanocobalamin 1,000 Mcg/Ml Inj, 1,000 MCG IJ MONTHLY, (Reported) Cyanocobalamin (Vitamin B-12) 500 Mcg Tablet, 1,000 MCG PO DAILY, (Reported) Estrogens Conjugated 30 Gm Cr, VG MoWeFr, (Reported) Furosemide 40 Mg Tablet, 40 MG PO DAILY Prescribed by: CRIS WALDEN on 05/05/19 1057 Insulin Aspart 100 Unit/1 Ml Susp, PER INSULIN PUMP, (Reported) Liraglutide 0.6 Mg/0.1 Ml Pen.injctr, 1.8 MG SC HS, (Reported) Midodrine HCl 10 Mg Tablet, 10 MG PO BID, (Reported) Nitroglycerin 0.4 Mg Tab.subl, 0.4 MG SL UD PRN for CHEST PAIN, (Reported) Potassium Chloride 10 Meq Tab.er.prt, 10 MEQ PO DAILY, (Reported) Rosuvastatin Calcium 20 Mg Tablet, 20 MG PO HS, (Reported) Patient Home Medication List Home Medication List Reviewed: Yes Review of Systems Review of Systems Constitutional: see HPI EENTM: see HPI Respiratory: no symptoms reported Cardiovascular: no symptoms reported Genitourinary: no symptoms reported Musculoskeletal: see HPI Skin: no symptoms reported Psychiatric/Neurological: No Symptoms Reported Past Llffvgw-Spadek-Kzgyps Hx Patient Social History Alcohol Use: Denies Use Recreational Drug Use: No 2nd Hand Smoke Exposure: No Recent Foreign Travel: No Contact w/Someone Who Travel: No Recent Infectious Disease Expo: No Recent Hopitalizations: No Immunizations Up To Date Tetanus Booster (TDap): Less than 5yrs Date of Pneumonia Vaccine: Aug 02, 2018 Date of Influenza Vaccine: May 20, 2018 Seasonal Allergies Seasonal Allergies: No Past Medical History Surgeries: Yes (PACEMAKER, CAROTID ARTERY, HEART CATH-STENTS /ANGIOPLASTY) Cardiac, Coronary Stent, Gallbladder, Hysterectomy, Oophorectomy, Orthopedic, Pacemaker, Vascular Surgery Respiratory: Yes Sleep Apnea Currently Using CPAP: No Currently Using BIPAP: No Cardiac: Yes (PACEMAKER, CHF, STENTS X12, AORTIC VALVE REPLACED, CHEST TUBES) Atrial Fibrillation, Chronic Edema/Swelling, Coronary Artery Disease, Heart Attack, Heart Murmur, High Cholesterol, Hypertension, Peripheral Vascular, Rheumatic Fever Neurological: Yes (TIA AFTER STENT IN JUNE) Neuropathy, TIA Reproductive Disorders: 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 ) Endocrine: Yes (INSULIN PUMP, 3 THYROID NODULES) Diabetes, Insulin dep Cataract Loss of Vision: Left Hearing Impairment: Deaf Cancer: Yes (BREAST CA 2010) Breast Did You Recieve Any Treatments: Yes What Type of Treatment Did You: Radiation Psychosocial: No Integumentary: Yes (DIABETIC FOOT ULCER ON LEFT--PT STATES IS NOW HEALED. ) Blood Disorders: No Adverse Reaction/Blood Tranf: No Family Medical History Cardiovascular disease 19 FATHER 19 MOTHER G8 BROTHER G8 SISTER G8 SISTER G8 SISTER Completed stroke 19 FATHER G8 SISTER Diabetes mellitus 19 FATHER G8 SISTER G8 SISTER FH: cancer G8 SISTER G8 SISTER Myocardial infarction G8 BROTHER (65 YEARS OLD) Physical Exam Vital Signs Vital Signs - First Documented 05/07/19 11:30 Temp 36.1 Pulse 81 Resp 12 B/P (MAP) 145/67 (93) Pulse Ox 88 O2 Delivery Room Air Capillary Refill : Less Than 3 Seconds Height, Weight, BMI Height: 5'6.00" Weight: 223lbs. 0.5oz. 101.610782dd; 49.00 BMI Method:Stated General Appearance: No Apparent Distress, WD/WN, Chronically ill Eyes: Bilateral Eye Normal Inspection, Bilateral Eye PERRL, Bilateral Eye EOMI HEENT: PERRL/EOMI, TMs Normal Neck: Full Range of Motion, Normal Inspection Respiratory: No Accessory Muscle Use, No Respiratory Distress Cardiovascular: Regular Rate, Rhythm, Normal Peripheral Pulses Gastrointestinal: Non Tender, Soft Extremity: Normal Capillary Refill, Normal Inspection, Other (normal range of motion of the left shoulder without reproduction of pain, she has no left-sided chest pain currently.) Neurologic/Psychiatric: Alert, Oriented x3 Progress/Results/Core Measures Suspected Sepsis Recent Fever Within 48 Hours: No Infection Criteria Present: None New/Unexplained Altered Menta: No Sepsis Screen: No Definite Risk SIRS Temperature: Pulse: 81 Respiratory Rate: 12 Laboratory Tests 05/07/19 11:35: White Blood Count 9.7 Blood Pressure 145 /67 Mean: 93 Laboratory Tests 05/07/19 11:35: Creatinine 1.77H, INR Comment 1.3, Platelet Count 366, Total Bilirubin 0.9 Results/Orders Lab Results Laboratory Tests Test 05/07/19 11:35 05/07/19 13:35 05/07/19 14:17 Range/Units White Blood Count 9.7 4.3-11.0 10^3/uL Red Blood Count 3.74 L 4.35-5.85 10^6/uL Hemoglobin 9.7 L 11.5-16.0 G/DL Hematocrit 31 L 35-52 % Mean Corpuscular Volume 83 80-99 FL Mean Corpuscular Hemoglobin 26 25-34 PG Mean Corpuscular Hemoglobin Concent 31 L 32-36 G/DL Red Cell Distribution Width 17.3 H 10.0-14.5 % Platelet Count 366 130-400 10^3/uL Mean Platelet Volume 8.8 7.4-10.4 FL Neutrophils (%) (Auto) 71 42-75 % Lymphocytes (%) (Auto) 13 12-44 % Monocytes (%) (Auto) 13 H 0-12 % Eosinophils (%) (Auto) 3 0-10 % Basophils (%) (Auto) 0 0-10 % Neutrophils # (Auto) 6.8 1.8-7.8 X 10^3 Lymphocytes # (Auto) 1.3 1.0-4.0 X 10^3 Monocytes # (Auto) 1.3 H 0.0-1.0 X 10^3 Eosinophils # (Auto) 0.3 0.0-0.3 10^3/uL Basophils # (Auto) 0.0 0.0-0.1 10^3/uL Prothrombin Time 17.0 H 12.2-14.7 SEC INR Comment 1.3 0.8-1.4 Activated Partial Thromboplast Time 41 H 24-35 SEC Sodium Level 129 L 135-145 MMOL/L Potassium Level 3.2 L 3.6-5.0 MMOL/L Chloride Level 83 L 98-107 MMOL/L Carbon Dioxide Level 34 H 21-32 MMOL/L Anion Gap 12 5-14 MMOL/L Blood Urea Nitrogen 20 H 7-18 MG/DL Creatinine 1.77 H 0.60-1.30 MG/DL Estimat Glomerular Filtration Rate 28 BUN/Creatinine Ratio 11 Glucose Level 206 H 70-105 MG/DL Calcium Level 8.6 8.5-10.1 MG/DL Corrected Calcium 9.4 8.5-10.1 MG/DL Magnesium Level 1.7 1.6-2.4 MG/DL Total Bilirubin 0.9 0.1-1.0 MG/DL Aspartate Amino Transf (AST/SGOT) 19 5-34 U/L Alanine Aminotransferase (ALT/SGPT) 10 0-55 U/L Alkaline Phosphatase 94 40-136 U/L Myoglobin 79.5 10.0-92.0 NG/ML Troponin I 0.042 H 0.056 H <0.028 NG/ML B-Type Natriuretic Peptide 974.4 H <100.0 PG/ML Total Protein 6.4 6.4-8.2 GM/DL Albumin 3.0 L 3.2-4.5 GM/DL Smear Scan YES Urine Color YELLOW Urine Clarity CLEAR Urine pH 6 5-9 Urine Specific [place] 1.010 L 1.016-1.022 Urine Protein 2+ H NEGATIVE Urine Glucose (UA) 2+ H NEGATIVE Urine Ketones NEGATIVE NEGATIVE Urine Nitrite NEGATIVE NEGATIVE Urine Bilirubin NEGATIVE NEGATIVE Urine Urobilinogen NORMAL NORMAL MG/DL Urine Leukocyte Esterase 2+ H NEGATIVE Urine RBC (Auto) NEGATIVE NEGATIVE Urine RBC NONE /HPF Urine WBC 10-25 H /HPF Urine Squamous Epithelial Cells 10-25 H /HPF Urine Crystals PRESENT H /LPF Urine Amorphous Sediment FEW [place] URATES H /LPF Urine Bacteria MODERATE H /HPF Urine Casts NONE /LPF Urine Mucus NEGATIVE /LPF Urine Culture Indicated YES My Orders Orders - DARYL PIEDRA APRN Cbc With Automated Diff (05/07/19 11:43) Magnesium (05/07/19 11:43) Chest 1 View, Ap/Pa Only (05/07/19 11:43) Ekg Tracing (05/07/19 11:43) Cardiac Profile 1 (05/07/19 11:43) Comprehensive Metabolic Panel (05/07/19 11:43) Myoglobin Serum (05/07/19 11:43) Protime With Inr (05/07/19 11:43) Partial Thromboplastin Time (05/07/19 11:43) O2 (05/07/19 11:43) Monitor-Rhythm Ecg Trace Only (05/07/19 11:43) Lipid Panel (05/08/19 06:00) Ed Iv/Invasive Line Start (05/07/19 11:43) BNP (05/07/19 11:43) Aspirin Chewable Tablet (Baby Aspirin Ch (05/07/19 11:45) Ua Culture If Indicated (05/07/19 13:03) Troponin I (05/07/19 13:33) Urine Culture (05/07/19 14:17) Medications Given in ED Current Medications Medications Dose Ordered Sig/Tresa Route Start Time Stop Time Status Last Admin Dose Admin Aspirin 324 mg ONCE ONCE PO 05/07/19 11:45 05/07/19 11:46 DC 05/07/19 11:50 324 MG Vital Signs/I&O 05/07/19 11:30 Temp 36.1 Pulse 81 Resp 12 B/P (MAP) 145/67 (93) Pulse Ox 88 O2 Delivery Room Air Capillary Refill : Less Than 3 Seconds Blood Pressure Mean: 93 Diagnostic Imaging Diagonstic Imaging: Xray Plain Films/CT/US/NM/MRI: chest Comments NAME: ANUP SUH [facility] REC#: [id number] PT STATUS: REG ER : 1940 PHYSICIAN: DARYL PIEDRA APRN ADMIT DATE: 05/07/19/ER Draft Date of Exam:05/07/19 CHEST 1 VIEW, AP/PA ONLY EXAMINATION: Chest 1 view HISTORY: Pleural effusion FINDINGS: Comparison is 05/05/2019. Left subclavian pacemaker is present. Transcatheter aortic valve is present. Heart size is normal. Small left pleural effusion is decreased in size from prior exam. There is overlying atelectasis or consolidation. No left pleural effusion. No pneumothorax. IMPRESSION: 1. Decrease in size of small right pleural effusion with overlying atelectasis or consolidation. Dictated on workstation # [id number] Dict: 05/07/19 1221 Trans: 05/07/19 1224 CVB [id number] Interpreted by: JOE BOLIVAR MD Electronically signed by: Departure Communication (Admissions) Time/Spoke to Admitting Phy: 14:[address] Walden. The repeat troponin has come back tired and the initial, discussed then with Dr. Kenny from cardiology, recommends admission, we will admit to Dr. Jacobo and serial troponin. 1259-states she feels fatigued and would like "a shot of energy". That she was on stool softeners while she was here admitted to the hospital but hasn't been on that since being back at [facility] and hasn't had a bowel movement since then. She's also had some difficulty with urination. We will obtain a bladder scan to evaluate for urinary retention. I spoke with Dr. Walden regarding the slightly bumped troponin which may simply be due to chronic kidney disease. I'll repeat this at the 2 hour jorge l, if the same or negative discharge back to facility, if rising we will discuss with cardiology for admission. She remains symptom-free at this time in regards to chest pain. She reports persistent malaise. 1420-Unable to urinate but bladder scan shows 174 ml. LEVI reveials no fecal impaction. Impression Primary Impression: Weakness generalized Additional Impressions: Elevated troponin UTI (urinary tract infection) Qualified Codes: N30.00 - Acute cystitis without hematuria Disposition: ADMITTED INPATIENT Condition: Stable Admissions Decision to Admit Reason: Admit from ER (General) Decision to Admit/Date: May 07, 2019 Time/Decision to Admit Time: 14:41 Departure-Patient Inst. Referrals: JOE ROBERTSON MD (PCP/Family) Primary Care Physician DARYL PIEDRA APRN May 07, 2019 11:53
[2019-05-07 12:03] LABS: INR 1.3 (0.8-1.4)
[2019-05-07 12:11] LABS: SMEAR SCAN COMMENT YES
[2019-05-07 12:13] LABS: BILIRUBIN,TOTAL 0.9 MG/DL (0.1-1.0); CALCIUM 8.6 MG/DL (8.5-10.1); CREATININE SERUM 1.77 MG/DL (0.60-1.30); MAGNESIUM 1.7 MG/DL (1.6-2.4); POTASSIUM 3.2 MMOL/L (3.6-5.0); TOTAL PROTEIN 6.4 GM/DL (6.4-8.2)
--- NOTE | 2019-05-07 12:26 | Diagnostic Imaging Report ---
EXAMINATION: Chest 1 view HISTORY: Pleural effusion FINDINGS: Comparison is 05/05/2019. Left subclavian pacemaker is present. Transcatheter aortic valve is present. Heart size is normal. Small left pleural effusion is decreased in size from prior exam. There is overlying atelectasis or consolidation. No left pleural effusion. No pneumothorax. IMPRESSION: 1. Decrease in size of small right pleural effusion with overlying atelectasis or consolidation. Dictated by: Dictated on workstation # [id number]
[2019-05-07 14:26] LABS: BILIRUBIN,URINE NEGATIVE (NEGATIVE); CLARITY,URINE CLEAR; COLOR,URINE YELLOW; GLUCOSE, URINE (UA) 2+ (NEGATIVE); KETONES,URINE NEGATIVE (NEGATIVE); LEUKOCYTE ESTERASE ,URINE 2+ (NEGATIVE); NITRITE,URINE NEGATIVE (NEGATIVE); PH,URINE 6 (5-9); PROTEIN,URINE 2+ (NEGATIVE)
[2019-05-07 14:37] LABS: AMORPHOUS SEDIMENT,UR FEW AMOR URATES /LPF; BACTERIA,URINE MODERATE /HPF
[2019-05-07 16:00] VITALS: BP 123/54
[2019-05-07] MEDS ORDERED: cefTRIAXone 1,000 MG/SWFI 10 ML IV PUSH IV SCH ×2 (16:00)
--- NOTE | 2019-05-07 16:00 | NUR ---
ANUP SUH admitted to room 512-1, with an admitting diagnosis of UTI, on 05/07/19 from AM via cart, accompanied by staff.ANUP SUH introduced to surroundings, call light, bed controls, phone, TV, temperature control, lights, meal times, smoking policy, visitor policy, side rail policy, bathrooms and showers. Patient Rights given to patient in the handbook. ANUP SUH verbalizes understanding that [facility] is not responsible for the loss or damage to any personal effects or valuables that are kept in the patients posession during their hospitalization. The following Patient Care Plans were discussed with the pt : Discharge Planning. ANUP SUH verbalizes understanding of Interdisciplinary Patient Education. Patient and/or family were informed about the Rapid Response Team and its purpose.
--- NOTE | 2019-05-07 18:15 | NUR ---
Pt granddaughter here to place insulin pump on pt. Pt will dose self with insulin based on our sliding scale and pt accucheck result. Pt does get a basil insulin but is unsure of the amount. Grand daughter will find out and let an RN know.
[2019-05-07] MEDS ORDERED: ONDANSETRON 4 MG (ZOFRAN) ORAL DISSOLVE TAB PO PRN (19:00)
[2019-05-07] MEDS ORDERED: MELATONIN 3 MG TABLET PO PRN (19:00)
[2019-05-07] MEDS ORDERED: ONDANSETRON 4 MG/2 ML (SDV) Z0FRAN IVP PRN (19:00)
[2019-05-07] MEDS ORDERED: ACETAMINOPHEN 325 MG TABLET PO PRN (19:00)
[2019-05-07] MEDS ORDERED: BISACODYL 10 MG SUPP (DULCOLAX) PR PRN (19:00)
[2019-05-07 20:50] VITALS: BP 115/67
[2019-05-07] MEDS ORDERED: POLYETHYLENE GLYCOL 17 GM (MIRALAX) PACK PO SCH (21:00)
[2019-05-07] MEDS ORDERED: POLYETHYLENE GLYCOL 17 GM (MIRALAX) PACK PO PRN (21:00)
[2019-05-07] MEDS ORDERED: ROSUVASTATIN 20 MG (CRESTOR) TABLET PO SCH (21:00)
[2019-05-07] MEDS: SENNA W/DOCUSATE (SENOKOT S) TABLET PO SCH (21:15)
[2019-05-07] MEDS: DOCUSATE SODIUM 100 MG (COLACE) CAP PO SCH (21:15)
[2019-05-07] MEDS: inSUlin ASPART (NovoLOG) 1 UNIT/0.01 ML (CHARGE PER UNIT) SC SCH (21:36)
[2019-05-07] MEDS: MIDODRINE 10 MG (PROAMATINE) TAB PO SCH (21:36)
[2019-05-08 00:50] VITALS: BP 125/72
[2019-05-08 01:14] LABS: BASOPHILS % (AUTO) 0 % (0-10); EOSINOPHILS # (AUTO) 0.3 10^3/uL (0.0-0.3); EOSINOPHILS % (AUTO) 4 % (0-10); HEMATOCRIT 32 % (35-52); HEMOGLOBIN 10.2 G/DL (11.5-16.0); LYMPHOCYTES # (AUTO) 1.6 X 10^3 (1.0-4.0); LYMPHOCYTES % (AUTO) 17 % (12-44); MEAN CORPUSCULAR HEMOGLOBIN 26 PG (25-34); MEAN CORPUSCULAR HGB CONC 32 G/DL (32-36); MEAN CORPUSCULAR VOLUME 82 FL (80-99); MEAN PLATELET VOLUME 8.7 FL (7.4-10.4); MONOCYTES # (AUTO) 1.1 X 10^3 (0.0-1.0); MONOCYTES % (AUTO) 11 % (0-12); NEUTROPHILS # (AUTO) 6.4 X 10^3 (1.8-7.8); NEUTROPHILS % (AUTO) 68 % (42-75); PLATELET COUNT 423 10^3/uL (130-400); RED CELL DISTRIBUTION WIDTH 17.5 % (10.0-14.5); WHITE BLOOD COUNT 9.5 10^3/uL (4.3-11.0)
[2019-05-08 01:27] LABS: CALCIUM 8.7 MG/DL (8.5-10.1); CREATININE SERUM 1.62 MG/DL (0.60-1.30); MAGNESIUM 1.7 MG/DL (1.6-2.4); POTASSIUM 3.3 MMOL/L (3.6-5.0)
[2019-05-08 01:29] LABS: CHOLESTEROL 68 MG/DL (< 200); HDL CHOLESTEROL 20 MG/DL (40-60); TRIGLYCERIDES 74 MG/DL (<150); VLDL CHOLESTEROL 15 MG/DL (5-40)
[2019-05-08 04:53] VITALS: BP 110/67
[2019-05-08] MEDS: inSUlin ASPART (NovoLOG) 1 UNIT/0.01 ML (CHARGE PER UNIT) SC SCH ×2 (06:43→10:39)
[2019-05-08] MEDS ORDERED: KCL 10 MEQ TAB (MICRO K) PO SCH (07:00)
[2019-05-08] MEDS ORDERED: KCL 20 MEQ TAB (K-DUR) PO ONE (07:30)
[2019-05-08 08:00] VITALS: BP 95/58
[2019-05-08] MEDS: MIDODRINE 10 MG (PROAMATINE) TAB PO SCH (08:33)
[2019-05-08] MEDS: SENNA W/DOCUSATE (SENOKOT S) TABLET PO SCH (08:33)
[2019-05-08] MEDS: MAGNESIUM 1 GM/100 ML IVPB 100 ML IV SCH ×2 (08:33→08:35)
[2019-05-08] MEDS: DOCUSATE SODIUM 100 MG (COLACE) CAP PO SCH (08:33)
[2019-05-08] MEDS ORDERED: FUROSEMIDE 40 MG (LASIX) TAB PO SCH (09:00)
[2019-05-08] MEDS ORDERED: ALLOPURINOL 100 MG (ZYLOPRIM) TAB PO SCH (09:00)
[2019-05-08] MEDS ORDERED: CLOPIDOGREL 75 MG (PLAVIX) TABLET PO SCH (09:00)
--- NOTE | 2019-05-08 10:45 | NUR ---
Pt's blood sugar 243, Had pt dose herself with 3 units of insulin per pt insulin pump per ordered sliding scale. This RN observed pt setting her pump for 3 units.
[2019-05-08 12:00] VITALS: BP 105/66
--- NOTE | 2019-05-08 12:40 | Consultation-Cardiology ---
HPI-Cardiology Cardiology Consultation: Date of Consultation 05/08/19 Time Seen by a Provider: 12:25 Date of Admission Attending Physician Cris Walden MD Admitting Physician Rashaun Gonzales MD Consulting Physician TEZ QUESADA MD, MA, FACP, FACC, [facility], CCDS Primary assistant pressman: Dr Bauman HPI: Chief Complaint: Reason for consultation: Weakness, mild troponin elevation HPI KGA-Xiwrby-Vcnwsb Hx Patient Social History Alcohol Use: Denies Use Recreational Drug Use: No 2nd Hand Smoke Exposure: No Recent Foreign Travel: No Recent Infectious Disease Expo: No Hospitalization with Isolation: Denies Immunizations Up To Date Tetanus Booster (TDap): Less than 5yrs Date of Pneumonia Vaccine: Aug 02, 2018 Date of Influenza Vaccine: May 20, 2018 Past Medical History PMH As described under Assessment. Family Medical History Family Medical History: History of father, mother and several siblings with CAD. Her father had a stroke. Two sisters with DM. Family History: Cardiovascular disease 19 FATHER 19 MOTHER G8 BROTHER G8 SISTER G8 SISTER G8 SISTER Completed stroke 19 FATHER G8 SISTER Diabetes mellitus 19 FATHER G8 SISTER G8 SISTER FH: cancer G8 SISTER G8 SISTER Myocardial infarction G8 BROTHER (65 YEARS OLD) Allergies and Home Medications Allergies Coded Allergies: morphine (Verified Allergy, Intermediate, Nausea, 05/04/19) sulfamethoxazole (Verified Allergy, Intermediate, 10/05/15) tramadol (Verified Allergy, Intermediate, 10/05/15) trimethoprim (Verified Allergy, Intermediate, 10/05/15) Penicillins (Verified Allergy, Unknown, 10/05/15) codeine (Verified Allergy, Unknown, CAN TAKE MORPHINE, 10/05/15) hydrocodone (Verified Allergy, Unknown, 10/05/15) amiodarone (Verified Adverse Reaction, Mild, NAUSEA, dizziness, 02/01/16) Home Medications Acetaminophen 500 Mg Tablet, 500 MG PO Q6H PRN for PAIN-MILD, (Reported) Allopurinol 100 Mg Tablet, 100 MG PO DAILY, (Reported) Apixaban 2.5 Mg Tablet, 2.5 MG PO BID HOLD- FOLLOW UP WITH DR BAUMAN ON WHEN TO RESTART Prescribed by: AGUSTÍN GONZALEZ on 05/05/19 1416 Cholecalciferol (Vitamin D3) 5,000 Unit Capsule, 5,000 UNIT PO DAILY, (Reported) Clopidogrel Bisulfate 75 Mg Tablet, 75 MG PO DAILY, (Reported) Cyanocobalamin 1,000 Mcg/Ml Inj, 1,000 MCG IJ MONTHLY, (Reported) Cyanocobalamin (Vitamin B-12) 500 Mcg Tablet, 1,000 MCG PO DAILY, (Reported) Estrogens Conjugated 30 Gm Cr, VG MoWeFr, (Reported) Furosemide 40 Mg Tablet, 40 MG PO DAILY Prescribed by: CRIS WALDEN on 05/05/19 1057 Insulin Aspart 100 Unit/1 Ml Susp, PER INSULIN PUMP, (Reported) Liraglutide 0.6 Mg/0.1 Ml Pen.injctr, 1.8 MG SC HS, (Reported) Midodrine HCl 10 Mg Tablet, 10 MG PO BID, (Reported) Nitroglycerin 0.4 Mg Tab.subl, 0.4 MG SL UD PRN for CHEST PAIN, (Reported) Potassium Chloride 10 Meq Tab.er.prt, 10 MEQ PO DAILY, (Reported) Rosuvastatin Calcium 20 Mg Tablet, 20 MG PO HS, (Reported) Patient Home Medication List Home Medication List Reviewed: Yes Physical Exam-Cardiology Physical Exam Vital Signs/I&O 05/08/19 05/08/19 05/08/19 05/08/19 00:50 01:00 04:00 04:53 Temp 37.3 36.3 Pulse 75 81 79 Resp 18 18 B/P (MAP) 125/72 (89) 110/67 (81) Pulse Ox 98 99 O2 Delivery Nasal Cannula Nasal Cannula Nasal Cannula O2 Flow Rate 2.00 2.00 2.00 05/08/19 05/08/19 05/08/19 05/08/19 07:00 08:00 08:00 09:00 Temp 36.3 Pulse 81 83 Resp 18 B/P (MAP) 95/58 (70) Pulse Ox 95 O2 Delivery Nasal Cannula Nasal Cannula Nasal Cannula O2 Flow Rate 2.00 2.00 2.00 05/08/19 11:38 O2 Delivery Nasal Cannula O2 Flow Rate 2.00 05/08/19 00:00 Intake Total 150 ml Balance 150 ml Capillary Refill : Less Than 3 Seconds Data Review Labs Laboratory Tests 05/07/19 13:35: Troponin I 0.056H 05/07/19 14:17: Urine Color YELLOW, Urine Clarity CLEAR, Urine pH 6, Urine Specific [place] 1.010L, Urine Protein 2+H, Urine Glucose (UA) 2+H, Urine Ketones NEGATIVE, Urine Nitrite NEGATIVE, Urine Bilirubin NEGATIVE, Urine Urobilinogen NORMAL, Urine Leukocyte Esterase 2+H, Urine RBC (Auto) NEGATIVE, Urine RBC NONE, Urine WBC 10- 25H, Urine Squamous Epithelial Cells 10-25H, Urine Crystals PRESENTH, Urine Amorphous Sediment FEW [place] URATESH, Urine Bacteria MODERATEH, Urine Casts NONE, Urine Mucus NEGATIVE, Urine Culture Indicated YES 05/07/19 18:15: Troponin I 0.040H 05/07/19 21:14: Glucometer 241H 05/08/19 00:58: White Blood Count 9.5, Red Blood Count 3.93L, Hemoglobin 10.2L, Hematocrit 32L, Mean Corpuscular Volume 82, Mean Corpuscular Hemoglobin 26, Mean Corpuscular Hemoglobin Concent 32, Red Cell Distribution Width 17.5H, Platelet Count 423H, Mean Platelet Volume 8.7, Neutrophils (%) (Auto) 68, Lymphocytes (%) (Auto) 17, Monocytes (%) (Auto) 11, Eosinophils (%) (Auto) 4, Basophils (%) (Auto) 0, Neutrophils # (Auto) 6.4, Lymphocytes # (Auto) 1.6, Monocytes # (Auto) 1.1H, Eosinophils # (Auto) 0.3, Basophils # (Auto) 0.0, Sodium Level 130L, Potassium Level 3.3L, Chloride Level 83L, Carbon Dioxide Level 33H, Anion Gap 14, Blood Urea Nitrogen 20H, Creatinine 1.62H, Estimat Glomerular Filtration Rate 31, BUN/Creatinine Ratio 12, Glucose Level 189H, Calcium Level 8.7, Magnesium Level 1.7, Troponin I 0.049H, Triglycerides Level 74, Cholesterol Level 68, LDL Cholesterol Direct 34, VLDL Cholesterol 15, HDL Cholesterol 20L ECG Impression ECG Comment ECG on 05/07/19: NSR with first deg AV block and nonspecific T wave abn, unchanged compared to ECG of 05/02/19 A/P-Cardiology Assessment/Admission Diagnosis Gen weakness and malaise following recent CV interventions and hospitalizations (see below) S/P TAVR with a #[address] Cheema at [facility] on Apr 06, 2019 - at which time she had a chest tube placed d/t signif right sided pleural effusion (removed on 04-26-19) Mild troponin elevation that has remained flat between 0.04 and 0.06 since her surgery described above. This is likely due to minimal diastolic CHF (type 2 DE) Lg right pleural effusion seen on CXR of 05-03-19, s/p thoracentesis by Dr Topete on 05/04/19, considerably less effusion CXR of 05/07/19 Electrolyte abnormalities, likely related to diuretic therapy Coronary artery disease, multiple interventions in the past, reports a total of 11 stents. Multivessel disease. Cardiac catheterization was done in October 2012 showing severe stenosis in the midright coronary artery treated with 3.0 x 24 mm Promus elements stent. Severe stenosis in the proximal diagonal artery, very small artery not amenable to intervention. Repeat cardiac catheterization on November 19, [address] Burch, had a stent to the circumflex artery, the stent sizes was not described in the report. Cardiac catheterization done December 26, 2016 with balloon angioplasty to the mid circumflex for 80 percent in-stent restenosis. Patient was brought back the same day where she underwent repeat cardiac catheterization after having chest pain, underwent another balloon angioplasty and stent deployment in the distal circumflex: 3.5 x 18 mm Xience Alpine stent. Underwent cardiac catheterization on February 04, [address] Mcdonnell, which showed moderate multivessel coronary artery disease, had FFR 0.83 to the LAD and 0.91 to the left circumflex artery, treated conservatively. Most recent cardiac cath of Apr 06, [address] Bauman showed Critical aortic valve stenosis with pressure gradient during pullback to 60 mmHg. Severe ostial LAD stenosis, multiple stents in the LAD. Moderate to severe mid in-stent restenosis in the circumflex artery. Moderate distal right coronary artery stenosis. Elevated left ventricular end-diastolic pressure - conservative CAD management - transferred to [facility] for TAVR Peripheral arterial disease, history of nonhealing foot ulcer and stent done in 2016. Peripheral angio in September 2017 showing total occlusion of the left SFA, treated with Innova 6 x 150 from the ostium of the left SFA to the mid SFA overlapping with old stent with excellent results. Underwent peripheral angiogram on September 02, [address] Sotomayor with left SFA popliteal atherectomy and angioplasty, left anterior tibial artery angioplasty with widely patent vessels following intervention Intraocular hemorrhage, underwent multiple laser procedure, she lost vision in her left eye last week and seen by Dr. Mckeon and she is following with Dr. Hdez in [place] Echocardiogram of Apr 06, 2019 showed LVEF 55-65%. Severe Ao stenosis with mean gradient 24, valve measuring 0.8 cm2. Mild to mod TR. PASP 50-55mmHg Labile hypertension Hyperlipidemia - Crestor (reported intolerance to Lipitor) Diabetes mellitus, followed and managed by primary care physician. Sick sinus syndrome, history of permanent pacemaker placement. Medtronic device, checked in November 2018 showing good sensing and capture activity, 1 high atrial rhythm Carotid stenosis, history of right carotid endarterectomy. CTA of neck done on February 01, 2016 revealed no significant stenosis in the internal carotid arteries. Prominent focus of stenosis in the distal aspect of the left vertebral artery at the foramen magnum and level dominant right vertebral artery demonstrates no significant stenosis. Carotid ultrasound in April 2018 showed mild bilateral disease Paroxysmal atrial fibrillation Discussion and Recomendations * She suffers from multiple comorbidities (see above) * Does not have evidence of ACS * Has chronic diastolic CHF that appears clinically compensated * Replenish lytes * Management of DM II is with the Med S[facility] * I interviewed her, examined her, and reviewed her records. Ok for d/c from card standpoint. Advised back to ER for new symptoms or worsening symptoms. Advised f/u with her assistant pressman Dr Bauman Clinical Quality Measures DVT/VTE Risk/Contraindication: Risk Factor Score Per Nursin RFS Level Per Nursing on Admit: 3=High TEZ QUESADA MD FACP FAC CCDS May 08, 2019 12:40
[2019-05-08] MEDS ORDERED: POTA10TA36 PO (13:46)
--- NOTE | 2019-05-08 13:55 | Discharge Summary ---
Discharge Summary Reconcile Patient Problems Problems Reviewed?: Yes Hospital Course Hospital Course Date of Admission: May 07, 2019 at 14:37 Admission Diagnosis : Chest pain Family Physician/Provider: Rashaun Gonzales MD Date of Discharge: 05/08/19 Discharge Diagnosis: Costochondritis Hospital Course: Shamika Cain is an 79-year-old female who presented from [facility] with chest pain. She was recently hospitalized with a hemothorax. Repeat chest x-ray did not show any recurrence. Her hemoglobin was stable. She did have a mildly elevated troponin at 0.04. Looking back, this appears to be her baseline. This is likely due to her chronic heart failure and kidney disease. Nevertheless, this was trended and her troponin remained stable. Her chest pain was left-sided and worsened by cough and a deep breath, consistent with costochondritis. Cardiology was consulted and agreed that she was stable for discharge back to [facility]. Labs and Pending Lab Test: Laboratory Tests 05/07/19 14:17: Urine Color YELLOW, Urine Clarity CLEAR, Urine pH 6, Urine Specific [place] 1.010L, Urine Protein 2+H, Urine Glucose (UA) 2+H, Urine Ketones NEGATIVE, Urine Nitrite NEGATIVE, Urine Bilirubin NEGATIVE, Urine Urobilinogen NORMAL, Urine Leukocyte Esterase 2+H, Urine RBC (Auto) NEGATIVE, Urine RBC NONE, Urine WBC 10- 25H, Urine Squamous Epithelial Cells 10-25H, Urine Crystals PRESENTH, Urine Amorphous Sediment FEW [place] URATESH, Urine Bacteria MODERATEH, Urine Casts NONE, Urine Mucus NEGATIVE, Urine Culture Indicated YES 05/07/19 18:15: Troponin I 0.040H 05/07/19 21:14: Glucometer 241H 05/08/19 00:58: Troponin I 0.049H, White Blood Count 9.5, Red Blood Count 3.93L, Hemoglobin 10.2L, Hematocrit 32L, Mean Corpuscular Volume 82, Mean Corpuscular Hemoglobin 26, Mean Corpuscular Hemoglobin Concent 32, Red Cell Distribution Width 17.5H, Platelet Count 423H, Mean Platelet Volume 8.7, Neutrophils (%) (Auto) 68, Lymphocytes (%) (Auto) 17, Monocytes (%) (Auto) 11, Eosinophils (%) (Auto) 4, Basophils (%) (Auto) 0, Neutrophils # (Auto) 6.4, Lymphocytes # (Auto) 1.6, Monocytes # (Auto) 1.1H, Eosinophils # (Auto) 0.3, Basophils # (Auto) 0.0, Sodium Level 130L, Potassium Level 3.3L, Chloride Level 83L, Carbon Dioxide Level 33H, Anion Gap 14, Blood Urea Nitrogen 20H, Creatinine 1.62H, Estimat Glomerular Filtration Rate 31, BUN/Creatinine Ratio 12, Glucose Level 189H, Ca lcium Level 8.7, Magnesium Level 1.7, Triglycerides Level 74, Cholesterol Level 68, LDL Cholesterol Direct 34, VLDL Cholesterol 15, HDL Cholesterol 20L Home Meds Active Potassium Chloride 10 Meq Tab.er.prt 20 Meq PO DAILY 30 Days Eliquis (Apixaban) 2.5 Mg Tablet 2.5 Mg PO BID HOLD- FOLLOW UP WITH DR NOVOA ON WHEN TO RESTART Furosemide 40 Mg Tablet 40 Mg PO DAILY 30 Days Reported Vitamin B-12 (Cyanocobalamin (Vitamin B-12)) 500 Mcg Tablet 1,000 Mcg PO DAILY Tylenol Extra Strength (Acetaminophen) 500 Mg Tablet 500 Mg PO Q6H PRN Midodrine HCl 10 Mg Tablet 10 Mg PO BID Allopurinol 100 Mg Tablet 100 Mg PO DAILY Vitamin D3 (Cholecalciferol (Vitamin D3)) 5,000 Unit Capsule 5,000 Unit PO DAILY Premarin (Estrogens Conjugated) 30 Gm Cr VG MOWEFR Rosuvastatin Calcium 20 Mg Tablet 20 Mg PO HS Victoza 2-Luis Enrique (Liraglutide) 0.6 Mg/0.1 Ml Pen.injctr 1.8 Mg SC HS Nitroglycerin 0.4 Mg Tab.subl 0.4 Mg SL UD PRN Cyanocobalamin Injection (Cyanocobalamin) 1,000 Mcg/Ml Inj 1,000 Mcg IJ MONTHLY Clopidogrel (Clopidogrel Bisulfate) 75 Mg Tablet 75 Mg PO DAILY Novolog (Insulin Aspart) 100 Unit/1 Ml Susp PER INSULIN PUMP Instructions to Patient/Family Assessment/Instructions Take medications as prescribed. Increase your potassium to 20 mEq daily. Follow up with cardiology. Follow Up Appt.: Janet in about a week Skilled NF Admit to: [facility] Certification (SNF) I certify that SNF services are required to be given on an inpatient basis because of the above named patient's need for detention care on a continuing basis for the conditions(s) for which he/she was receiving inpatient hospital services prior to his/her transfer to the SNF. Fdc Facility Order: Nursing Services, Dietary Director-Evaluate & Treat, Physical Therapy-Evaluate & Treat Oxygen Delivery Method: Nasal Cannula Discharge Diet: ADA Diet Daily Activity as Tolerated: Yes Resuscitation Status: Full Code Ana Walden May 08, 2019 13:48 Discharge Physical Exam General: Alert, Oriented X3, Cooperative, No Acute Distress HEENT: Atraumatic, EOMI Lungs: Clear to Auscultation, Normal Air Movement Heart: Regular Rate, No Murmurs Abdomen: Normal Bowel Sounds, Soft, No Tenderness Extremities: Other (2+ edema) Skin: No Significant Lesion Psych/Mental Status: Mental Status NL, Mood NL ANA WALDEN MD May 08, 2019 13:53
[2019-05-08] MEDS ORDERED: LEVO250T46 PO (14:21)
[2019-05-08] MEDS ORDERED: LEVOFLOXACIN 250 MG TAB (LEVAQUIN) PO ONE (14:30)
== END 2019-05-08 15:35 | disposition home or self-care (01) ==
LOC: EDUNIT# 11:26 → ER 11:27 → CSD 14:37
PROVIDERS: ADMIT Internal Medicine; ATTEND Internal Medicine
DX: R53.1 Weakness (principal); N30.00 Acute cystitis without hematuria; M25.512 Pain in left shoulder; I49.5 Sick sinus syndrome; I65.21 Occlusion and stenosis of right carotid artery; I48.91 Unspecified atrial fibrillation; I25.10 Atherosclerotic heart disease of native coronary artery without angina pectoris; I12.9 Hypertensive chronic kidney disease with stage 1 through stage 4 chronic kidney disease, or unspecified chronic kidney disease; N18.9 Chronic kidney disease, unspecified; E78.5 Hyperlipidemia, unspecified; E11.22 Type 2 diabetes mellitus with diabetic chronic kidney disease; E78.00 Pure hypercholesterolemia, unspecified; Z79.02 Long term (current) use of antithrombotics/antiplatelets; Z79.01 Long term (current) use of anticoagulants; Z95.0 Presence of cardiac pacemaker; Z88.1 Allergy status to other antibiotic agents; Z88.5 Allergy status to narcotic agent; Z88.2 Allergy status to sulfonamides; Z88.8 Allergy status to other drugs, medicaments and biological substances; Z79.4 Long term (current) use of insulin; Z95.1 Presence of aortocoronary bypass graft; Z90.710 Acquired absence of both cervix and uterus; Z82.49 Family history of ischemic heart disease and other diseases of the circulatory system; Z83.3 Family history of diabetes mellitus; Z80.9 Family history of malignant neoplasm, unspecified
CPT/HCPCS: 36415; 71045; 80048; 80053; 80061; 81000; 82962; 83735; 83874; 83880; 84484; 85025; 85610; 85730; 87077; 87088; 87186; 93005; 93041; 94664; 94760

== ENCOUNTER 2019-05-28 13:40 | Emergency (ER) | payer MEDICARE, MEDICAID ==
[~2019-05-28] VITALS: Ht 162 cm; Wt 82.0 kg
[~2019-05-28 13:40] MED LIST changes: +LEVO250T46 PO
--- NOTE | 2019-05-28 15:03 | ED Integumentary General ---
General Chief Complaint: Skin/Wound Problems Stated Complaint: POST OP DRAINING IN GROIN Nursing Triage Note: PT REPORTS PERSISTENT CLEAR DRAINAGE FROM GROIN X 1 MONTH SINCE AORTIC VALVE REPLACEMENT SURGERY. SENT HERE BY HER PCP. Source: patient, family Exam Limitations: no limitations (MARCIE GARSIA) History of Present Illness Date Seen by Provider: May 28, 2019 Time Seen by Provider: 14:13 Initial Comments pt is an 79 y/o female who presents to the ED with c/o Copious amount of clear drainage from R groin incision site from her Recent heart cath 1 month ago. She noticed the drainage 5 days ago but notes she has been noticing her pants were getting wet often on that site she just did know where it was coming from. Denies any itching, blood drainage, fevers, chills, N/V, abd pain or any other accompanying sx. Was advised by Dr. Kenny to report to the ED today as he was concerned for presents of fluid pockets in that region. Pt has hx of cancer with Radiation Tx. Additionally pt c/o low potassium levels since her surgery as well despite being on K+ supplements and having increased the dose recently. upon further inquiry regarding her health, she state she usually "stays on top" of her blood sugars. Has recently done routine labs but is unaware of the results. Pt has started taking Metolazone 2.5mg Daily x1 month. Timing/Duration: other (x1 month s/p cardiac cath) Severity: moderate Location: genitalia (groin region) Possible Cause: other (poor lymphatic drainage) Associated Symptoms: denies symptoms (MARCIE GARSIA) Initial Comments Here with report of clear fluid drainage from the heart catheter site of puncture in the area of the right groin. It is clear and not foul-smelling. Denies fevers. This is been going on for 5 days. Severity: moderate Location: genitalia (groin region) Associated Symptoms: No rash (MOIRA HEART MD) Allergies and Home Medications Allergies Coded Allergies: morphine (Verified Allergy, Intermediate, Nausea, 05/04/19) sulfamethoxazole (Verified Allergy, Intermediate, 10/05/15) tramadol (Verified Allergy, Intermediate, 10/05/15) trimethoprim (Verified Allergy, Intermediate, 10/05/15) Penicillins (Verified Allergy, Unknown, 10/05/15) codeine (Verified Allergy, Unknown, CAN TAKE MORPHINE, 10/05/15) hydrocodone (Verified Allergy, Unknown, 10/05/15) amiodarone (Verified Adverse Reaction, Mild, NAUSEA, dizziness, 02/01/16) Home Medications Acetaminophen 500 Mg Tablet, 500 MG PO Q6H PRN for PAIN-MILD, (Reported) Allopurinol 100 Mg Tablet, 100 MG PO DAILY, (Reported) Apixaban 2.5 Mg Tablet, 2.5 MG PO BID HOLD- FOLLOW UP WITH DR BAUMAN ON WHEN TO RESTART Prescribed by: AGUSTÍN GONZALEZ on 05/05/19 1416 Cholecalciferol (Vitamin D3) 5,000 Unit Capsule, 5,000 UNIT PO DAILY, (Reported) Clopidogrel Bisulfate 75 Mg Tablet, 75 MG PO DAILY, (Reported) Cyanocobalamin 1,000 Mcg/Ml Inj, 1,000 MCG IJ MONTHLY, (Reported) Cyanocobalamin (Vitamin B-12) 500 Mcg Tablet, 1,000 MCG PO DAILY, (Reported) Estrogens Conjugated 30 Gm Cr, VG MoWeFr, (Reported) Furosemide 40 Mg Tablet, 40 MG PO DAILY Prescribed by: CRIS WALDEN on 05/05/19 1057 Insulin Aspart 100 Unit/1 Ml Susp, PER INSULIN PUMP, (Reported) Levofloxacin 250 Mg Tablet, 250 MG PO DAILY Prescribed by: CRIS WALDEN on 05/08/19 1421 Liraglutide 0.6 Mg/0.1 Ml Pen.injctr, 1.8 MG SC HS, (Reported) Midodrine HCl 10 Mg Tablet, 10 MG PO BID, (Reported) Nitroglycerin 0.4 Mg Tab.subl, 0.4 MG SL UD PRN for CHEST PAIN, (Reported) Potassium Chloride 10 Meq Tab.er.prt, 20 MEQ PO DAILY Prescribed by: CRIS WALDEN on 05/08/19 1346 Rosuvastatin Calcium 20 Mg Tablet, 20 MG PO HS, (Reported) Patient Home Medication List Home Medication List Reviewed: Yes (MOIRA HEART MD) Review of Systems Review of Systems Constitutional: no symptoms reported, other ("Low K+ levels") EENTM: no symptoms reported Respiratory: no symptoms reported Cardiovascular: no symptoms reported Gastrointestinal: no symptoms reported Genitourinary: no symptoms reported Musculoskeletal: no symptoms reported Skin: No pruritus, No rash; other (drainage from incision site on R groin) Psychiatric/Neurological: No Symptoms Reported Endocrine: No Symptoms Reported Hematologic/Lymphatic: No Symptoms Reported ([facility]) Constitutional: No chills, No fever Respiratory: No cough, No short of breath Cardiovascular: No chest pain; edema Gastrointestinal: No abdominal pain, No nausea Genitourinary: no symptoms reported Skin: see HPI, lesions; No rash (MOIRA HEART MD) Past Jrsqlrv-Heusns-Rzopkd Hx Past Med/Social Hx: Reviewed Nursing Past Med/Soc Hx (MOIRA HEART MD) Patient Social History Alcohol Use: Denies Use Recreational Drug Use: No Smoking Status: Never a Smoker 2nd Hand Smoke Exposure: No Recent Foreign Travel: No Contact w/Someone Who Travel: No Recent Infectious Disease Expo: No Recent Hopitalizations: No Physical Abuse: No Sexual Abuse: No ([facility]) Immunizations Up To Date Tetanus Booster (TDap): Less than 5yrs Date of Pneumonia Vaccine: Aug 02, 2018 Date of Influenza Vaccine: May 20, 2018 ([facility]) Seasonal Allergies Seasonal Allergies: No ([facility]) Past Medical History Surgeries: Yes (PACEMAKER, CAROTID ARTERY, HEART CATH-STENTS /ANGIOPLASTY) Cardiac, Coronary Stent, Gallbladder, Hysterectomy, Oophorectomy, Orthopedic, Pacemaker, Vascular Surgery Respiratory: Yes Sleep Apnea Currently Using CPAP: No Currently Using BIPAP: No Cardiac: Yes (PACEMAKER, CHF, STENTS X12, AORTIC VALVE REPLACED, CHEST TUBES) Atrial Fibrillation, Chronic Edema/Swelling, Coronary Artery Disease, Heart Attack, Heart Murmur, High Cholesterol, Hypertension, Peripheral Vascular, Rheumatic Fever Neurological: Yes (TIA AFTER STENT IN JUNE) Neuropathy, TIA 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 ) Endocrine: Yes (INSULIN PUMP, 3 THYROID NODULES) Diabetes, Insulin dep Cataract Loss of Vision: Left Hearing Impairment: Deaf Cancer: Yes (BREAST CA 2010) Breast Did You Recieve Any Treatments: Yes What Type of Treatment Did You: Radiation Psychosocial: No Integumentary: Yes (DIABETIC FOOT ULCER ON LEFT--PT STATES IS NOW HEALED. ) Blood Disorders: No Adverse Reaction/Blood Tranf: No ([facility]) Family Medical History Reviewed Nursing Family Hx (MOIRA HEART MD) Cardiovascular disease 19 FATHER 19 MOTHER G8 BROTHER G8 SISTER G8 SISTER G8 SISTER Completed stroke 19 FATHER G8 SISTER Diabetes mellitus 19 FATHER G8 SISTER G8 SISTER FH: cancer G8 SISTER G8 SISTER Myocardial infarction G8 BROTHER (65 YEARS OLD) Physical Exam Vital Signs Vital Signs - First Documented 05/28/19 13:53 Pulse 72 Resp 16 B/P (MAP) 127/83 (98) Pulse Ox 97 O2 Delivery Room Air (MOIRA HEART MD) Vital Signs Capillary Refill : Less Than 3 Seconds ([facility]) General Appearance: WD/WN, no apparent distress, obese Cardiovascular: normal peripheral pulses, regular rate, rhythm, no edema, no g allop, no JVD, no murmur Respiratory: chest non-tender, lungs clear, normal breath sounds, no respiratory distress, no accessory muscle use Gastrointestinal: normal bowel sounds, non tender, soft, no organomegaly, no pulsatile mass Extremities: normal range of motion, non-tender, normal inspection, no calf tenderness Neurologic/Psychiatric: alert, normal mood/affect, oriented x 3 Skin: normal color, other (incison site on R groin with clear drainage, no erythema, or signs of infection at this time) Skin Problem Location: other (groin, R) Skin Problem Character: drainage Lymphatic: no adenopathy ([facility]) General Appearance: WD/WN, no apparent distress Cardiovascular: regular rate, rhythm, no murmur Respiratory: lungs clear, normal breath sounds Gastrointestinal: non tender, soft Back: normal inspection, no CVA tenderness, no vertebral tenderness Extremities: non-tender, normal inspection Neurologic/Psychiatric: alert, oriented x 3 Skin: warm/dry, other (incison site on R groin with clear drainage, no erythem a, or signs of infection at this time) (MOIRA HEART MD) Progress/Results/Core Measures Results/Orders Lab Results Laboratory Tests Test 05/28/19 16:25 Range/Units White Blood Count 9.0 4.3-11.0 10^3/uL Red Blood Count 4.21 L 4.35-5.85 10^6/uL Hemoglobin 9.9 L 11.5-16.0 G/DL Hematocrit 34 L 35-52 % Mean Corpuscular Volume 80 80-99 FL Mean Corpuscular Hemoglobin 24 L 25-34 PG Mean Corpuscular Hemoglobin Concent 30 L 32-36 G/DL Red Cell Distribution Width 20.1 H 10.0-14.5 % Platelet Count 380 130-400 10^3/uL Mean Platelet Volume 8.9 7.4-10.4 FL Neutrophils (%) (Auto) 67 42-75 % Lymphocytes (%) (Auto) 21 12-44 % Monocytes (%) (Auto) 10 0-12 % Eosinophils (%) (Auto) 2 0-10 % Basophils (%) (Auto) 0 0-10 % Neutrophils # (Auto) 6.0 1.8-7.8 X 10^3 Lymphocytes # (Auto) 1.9 1.0-4.0 X 10^3 Monocytes # (Auto) 0.9 0.0-1.0 X 10^3 Eosinophils # (Auto) 0.2 0.0-0.3 10^3/uL Basophils # (Auto) 0.0 0.0-0.1 10^3/uL Sodium Level 137 135-145 MMOL/L Potassium Level 4.4 3.6-5.0 MMOL/L Chloride Level 96 L 98-107 MMOL/L Carbon Dioxide Level 27 21-32 MMOL/L Anion Gap 14 5-14 MMOL/L Blood Urea Nitrogen 26 H 7-18 MG/DL Creatinine 1.75 H 0.60-1.30 MG/DL Estimat Glomerular Filtration Rate 28 BUN/Creatinine Ratio 15 Glucose Level 145 H 70-105 MG/DL Calcium Level 9.4 8.5-10.1 MG/DL Corrected Calcium 10.1 8.5-10.1 MG/DL Magnesium Level 2.0 1.6-2.4 MG/DL Total Bilirubin 0.6 0.1-1.0 MG/DL Aspartate Amino Transf (AST/SGOT) 30 5-34 U/L Alanine Aminotransferase (ALT/SGPT) 23 0-55 U/L Alkaline Phosphatase 115 40-136 U/L Total Protein 7.4 6.4-8.2 GM/DL Albumin 3.1 L 3.2-4.5 GM/DL (MOIRA HEART MD) My Orders Orders - MOIRA HEART MD Cbc With Automated Diff (05/28/19 14:48) Comprehensive Metabolic Panel (05/28/19 14:48) Magnesium (05/28/19 14:48) Chest Pa/Lat (2 View) (05/28/19 14:48) (MOIRA HEART MD) Vital Signs/I&O 05/28/19 13:53 Pulse 72 Resp 16 B/P (MAP) 127/83 (98) Pulse Ox 97 O2 Delivery Room Air (MOIRA HEART MD) Blood Pressure Mean: 98 POS Progress Progress Note : Time: 14:13 Progress Note Seen and Evaluated. Presentation concerning for presence of fluid pockets in the R groin region, infection, and vessel injury. Will get bedside U/S, CBC, CMP, and Mg levels. 1500: Bedside U/S revealed multiple fluid pockets w/in R groin region. Consulted Cardiology who recommended referral to Dr. Verma w/ General surgery to evaluate with U/S and possible drainage of fluid pockets and also f/u with Dr. Bauman on Thursday. Dr. Verma agrees to see pt. Will discuss plan with pt. (MARCIE GARSIA) Progress Note : Progress Note Have seen and evaluated the patient and agree with above except as indicated. I have directed the plan of care. Bedside ultrasound performed which shows a 2-3 cm x 6 cm pocket of fluid collection that actually seems to be in multiple pockets. Does have the appearance of a simple cyst. The puncture site is drai la clear fluid. There is no pulsatile mass. We will check basic labs. Patient has had some upper respiratory issues we will go ahead and get a chest x-ray. She is to follow-up with her doctor. 1655: I did discuss the case with Dr. Kenny on-call for Dr. Bauman and he recommends follow-up with Dr. Bauman on Thursday as well as follow up with surgeon on-call as soon as possible for that. I discussed the case with Dr. Verma and he will see the patient. I will send a copy of the chart to Dr. Verma and her primary care doctor, Dr. Gonzales. (MOIRA HEART MD) Diagnostic Imaging Diagonstic Imaging: Xray Plain Films/CT/US/NM/MRI: chest Comments [facility] REC#: [id number] PT STATUS: REG ER : 1940 PHYSICIAN: MOIRA HEART MD ADMIT DATE: 05/28/19/ER Signed POSDate of Exam: 05/28/19 CHEST PA/LAT (2 VIEW) INDICATION: Shortness of breath. EXAMINATION: PA and lateral chest at 3:59 p.m. FINDINGS: The cardiomegaly and the aortic stent graft and left-sided pacemaker seen on the prior exam of 05/07/2019 are again evident and no different. The previous study did show pneumonia/atelectasis and fluid involving the right mid lung and right lung base. On this exam, the right lung does seem better aerated although there is still residual pneumonia/atelectasis and some fluid present. The right apex and left lung are generally clear. The mediastinum is not widened. The osseous structures are intact. IMPRESSION: 1. The chest has improved as the right lung base does seem better aerated. However, there is still residual pneumonia/atelectasis and fluid present. A followup exam would be recommended for continued evaluation. 2. The overall appearance of the chest is otherwise stable. No new abnormality has developed. Dictated by: Dictated on workstation # [id number] Dict: 05/28/19 1607 Trans: 05/28/191628 Interpreted by: ROSALIO LCARKE MD Electronically signed by: ROSALIO CLARKE MD 05/28/19 162 (MOIRA HEART MD) Departure Impression Primary Impression: Draining postoperative wound Qualified Codes: T81.89XA - Other complications of procedures, not elsewhere classified, initial encounter Disposition: 01 HOME, SELF-CARE Condition: Improved Departure-Patient Inst. Decision time for Depature: 16:59 (MOIRA HEART MD) Referrals: ZOLTAN VERMA BASHAR J MD TAYLOR, JOHN D MD (PCP/Family) Primary Care Physician Patient Instructions: Wound Care (DC) Add. Discharge Instructions: All discharge instructions reviewed with patient and/or family. Voiced understanding. In ED: Make appointment and Dr. Bauman's office this week for recheck and further evaluation. Call Dr. Verma's office first thing Thursday morning for appointment that day or the next, first available for evaluation of the groin wound. Return for worse pain, fever, vomiting, weakness, breathing problems or other concerns as needed. Continue home medications as previously prescribed. Your potassium today was 4.4. Copy Copies To 1: ZOLTAN VERMA DO Copies To 2: JOE GONZALES MD, [facility] May 28, 2019 15:03 MOIRA MARTIN MD May 28, 2019 16:57 POS
--- NOTE | 2019-05-28 16:11 | Diagnostic Imaging Report ---
INDICATION: Shortness of breath. EXAMINATION: PA and lateral chest at 3:59 p.m. FINDINGS: The cardiomegaly and the aortic stent graft and left-sided pacemaker seen on the prior exam of 05/07/2019 are again evident and no different. The previous study did show pneumonia/atelectasis and fluid involving the right mid lung and right lung base. On this exam, the right lung does seem better aerated although there is still residual pneumonia/atelectasis and some fluid present. The right apex and left lung are generally clear. The mediastinum is not widened. The osseous structures are intact. IMPRESSION: 1. The chest has improved as the right lung base does seem better aerated. However, there is still residual pneumonia/atelectasis and fluid present. A followup exam would be recommended for continued evaluation. 2. The overall appearance of the chest is otherwise stable. No new abnormality has developed. Dictated by: Dictated on workstation # [id number]
[2019-05-28 16:35] LABS: BASOPHILS % (AUTO) 0 % (0-10); EOSINOPHILS # (AUTO) 0.2 10^3/uL (0.0-0.3); EOSINOPHILS % (AUTO) 2 % (0-10); HEMATOCRIT 34 % (35-52); HEMOGLOBIN 9.9 G/DL (11.5-16.0); LYMPHOCYTES # (AUTO) 1.9 X 10^3 (1.0-4.0); LYMPHOCYTES % (AUTO) 21 % (12-44); MEAN CORPUSCULAR HEMOGLOBIN 24 PG (25-34); MEAN CORPUSCULAR HGB CONC 30 G/DL (32-36); MEAN CORPUSCULAR VOLUME 80 FL (80-99); MEAN PLATELET VOLUME 8.9 FL (7.4-10.4); MONOCYTES # (AUTO) 0.9 X 10^3 (0.0-1.0); MONOCYTES % (AUTO) 10 % (0-12); NEUTROPHILS % (AUTO) 67 % (42-75); PLATELET COUNT 380 10^3/uL (130-400); RED CELL DISTRIBUTION WIDTH 20.1 % (10.0-14.5)
[2019-05-28 16:52] LABS: ALBUMIN 3.1 GM/DL (3.2-4.5); BILIRUBIN,TOTAL 0.6 MG/DL (0.1-1.0); CALCIUM 9.4 MG/DL (8.5-10.1); CREATININE SERUM 1.75 MG/DL (0.60-1.30); POTASSIUM 4.4 MMOL/L (3.6-5.0); TOTAL PROTEIN 7.4 GM/DL (6.4-8.2)
[2019-05-28 17:17] VITALS: BP 127/83
== END 2019-05-28 17:19 | disposition home or self-care (01) ==
LOC: EDUNIT# 13:40 → ER 13:41
DX: T81.89XA Other complications of procedures, not elsewhere classified, initial encounter (principal); I10 Essential (primary) hypertension; E78.00 Pure hypercholesterolemia, unspecified; I25.2 Old myocardial infarction; I25.10 Atherosclerotic heart disease of native coronary artery without angina pectoris; I48.91 Unspecified atrial fibrillation; E11.40 Type 2 diabetes mellitus with diabetic neuropathy, unspecified; E11.621 Type 2 diabetes mellitus with foot ulcer; L97.529 Non-pressure chronic ulcer of other part of left foot with unspecified severity; K58.9 Irritable bowel syndrome, unspecified; Z85.3 Personal history of malignant neoplasm of breast; Z87.440 Personal history of urinary (tract) infections; Z86.73 Personal history of transient ischemic attack (TIA), and cerebral infarction without residual deficits; Z95.0 Presence of cardiac pacemaker; Z88.5 Allergy status to narcotic agent; Z88.2 Allergy status to sulfonamides; Z88.0 Allergy status to penicillin; Z88.8 Allergy status to other drugs, medicaments and biological substances; Z88.1 Allergy status to other antibiotic agents; Z79.01 Long term (current) use of anticoagulants; Z79.02 Long term (current) use of antithrombotics/antiplatelets; Z79.4 Long term (current) use of insulin; Z95.5 Presence of coronary angioplasty implant and graft; Z90.710 Acquired absence of both cervix and uterus; Z82.49 Family history of ischemic heart disease and other diseases of the circulatory system
CPT/HCPCS: 36415; 71046; 80053; 83735; 85025

== ENCOUNTER 2019-06-03 10:24 | Observation (INO) | payer MEDICARE, MEDICAID ==
[2019-06-03] VITALS (7 sets, daily range): BP systolic 100–117; BP diastolic 49–73
[~2019-06-03] VITALS: Ht 167.7 cm; Wt 93.0 kg
[~2019-06-03 10:24] MED LIST changes: -ACET325T49 PO; -DOCU-143 PO; -POTA-51 PO; -TORS20TA3 PO
[2019-06-03] MEDS ORDERED: NS IV 1000 ML 1,000 ML IV SCH ×2 (10:50→14:45)
[2019-06-03] MEDS ORDERED: NS IV 1000 ML 1,000 ML IV ONE (10:50)
[2019-06-03] MEDS ORDERED: VANCOMYCIN INJECTION 1,000 MG in NS (IVPB) 250 ML IV ONE (11:00)
[2019-06-03] MEDS ORDERED: CEFEPIME INJECTION 1,000 MG in WATER (STERILE) FOR INJECTION 10 ML IV ONE (11:00)
--- NOTE | 2019-06-03 11:04 | ED Syncope ---
General Stated Complaint: DIZZINESS;LOSS OF MEMORY Source of Information: Patient, Family (daughter) Exam Limitations: No Limitations History of Present Illness Date Seen by Provider: Jun 03, 2019 Time Seen by Provider: 10:35 Initial Comments Patient presents to ER by private conveyance with daughter from x-ray. She was doing some outpatient labs and x-ray for Dr. Robertson because for the past 6 months she's been experiencing some near syncopal episodes. About a month ago she had a TAVR by [facility] she spent several weeks in the ICU intubated with a pneumothorax on the right and pneumonia. She says she's no longer on antibiotics. She's had no fevers or chills. She has a history of hypotension per Dr. Robertson's report and she is on midodrine 10 mg twice a day. She does not endorse a cough but when she went to stand up out of her wheelchair to do the 2 view chest x-ray she became very lightheaded and almost passed out but did not fall. She experience some amnesia for about a minute or so. She denies any pain just feeling very weak tired and denies short of breath. She does not have a baseline supplemental oxygen need. Allergies and Home Medications Allergies Coded Allergies: morphine (Verified Allergy, Intermediate, Nausea, 05/04/19) sulfamethoxazole (Verified Allergy, Intermediate, 10/05/15) tramadol (Verified Allergy, Intermediate, 10/05/15) trimethoprim (Verified Allergy, Intermediate, 10/05/15) Penicillins (Verified Allergy, Unknown, 10/05/15) codeine (Verified Allergy, Unknown, CAN TAKE MORPHINE, 10/05/15) hydrocodone (Verified Allergy, Unknown, 10/05/15) amiodarone (Verified Adverse Reaction, Mild, NAUSEA, dizziness, 02/01/16) Home Medications Acetaminophen 500 Mg Tablet, 500 MG PO Q6H PRN for PAIN-MILD, (Reported) Allopurinol 100 Mg Tablet, 100 MG PO DAILY, (Reported) Apixaban 2.5 Mg Tablet, 2.5 MG PO BID HOLD- FOLLOW UP WITH DR BAUMAN ON WHEN TO RESTART Prescribed by: AGUSTÍN GONZALEZ on 05/05/19 1416 Cholecalciferol (Vitamin D3) 5,000 Unit Capsule, 5,000 UNIT PO DAILY, (Reported) Clopidogrel Bisulfate 75 Mg Tablet, 75 MG PO DAILY, (Reported) Cyanocobalamin 1,000 Mcg/Ml Inj, 1,000 MCG IJ MONTHLY, (Reported) Cyanocobalamin (Vitamin B-12) 500 Mcg Tablet, 1,000 MCG PO DAILY, (Reported) Estrogens Conjugated 30 Gm Cr, VG MoWeFr, (Reported) Furosemide 40 Mg Tablet, 40 MG PO DAILY Prescribed by: CRIS WALDEN on 05/05/19 1057 Insulin Aspart 100 Unit/1 Ml Susp, PER INSULIN PUMP, (Reported) Levofloxacin 250 Mg Tablet, 250 MG PO DAILY Prescribed by: CRIS WALDEN on 05/08/19 1421 Liraglutide 0.6 Mg/0.1 Ml Pen.injctr, 1.8 MG SC HS, (Reported) Midodrine HCl 10 Mg Tablet, 10 MG PO BID, (Reported) Nitroglycerin 0.4 Mg Tab.subl, 0.4 MG SL UD PRN for CHEST PAIN, (Reported) Potassium Chloride 10 Meq Tab.er.prt, 20 MEQ PO DAILY Prescribed by: CRIS WALDEN on 05/08/19 1346 Rosuvastatin Calcium 20 Mg Tablet, 20 MG PO HS, (Reported) Patient Home Medication List Home Medication List Reviewed: Yes Review of Systems Constitutional: No chills, No diaphoresis, No fever EENTM: No ear discharge, No ear pain Respiratory: see HPI; No cough, No phlegm, No short of breath Cardiovascular: No chest pain, No edema; Hx of Intervention; No palpitations; syncope (near), vascular heart diseas, other (valvular heart disease) Gastrointestinal: No abdominal pain, No constipation, No diarrhea, No nausea, No vomiting Genitourinary: No discharge, No dysuria : No Musculoskeletal: No back pain, No joint pain All Other Systems Reviewed Negative Unless Noted: Yes Past Mobgpqt-Vnqsuc-Lonpxd Hx Patient Social History Alcohol Use: Denies Use Recreational Drug Use: No Smoking Status: Never a Smoker 2nd Hand Smoke Exposure: No Recent Hopitalizations: No Immunizations Up To Date Tetanus Booster (TDap): Less than 5yrs Date of Pneumonia Vaccine: Aug 02, 2018 Date of Influenza Vaccine: May 20, 2018 Seasonal Allergies Seasonal Allergies: No Past Medical History Surgeries: Yes (PACEMAKER, CAROTID ARTERY, HEART CATH-STENTS /ANGIOPLASTY) Cardiac, Coronary Stent, Gallbladder, Hysterectomy, Oophorectomy, Orthopedic, Pacemaker, Vascular Surgery Respiratory: Yes Sleep Apnea Currently Using CPAP: No Currently Using BIPAP: No Cardiac: Yes (PACEMAKER, CHF, STENTS X12, AORTIC VALVE REPLACED, CHEST TUBES) Atrial Fibrillation, Chronic Edema/Swelling, Coronary Artery Disease, Heart Attack, Heart Murmur, High Cholesterol, Hypertension, Peripheral Vascular, Rheumatic Fever Neurological: Yes (TIA AFTER STENT IN JUNE) Neuropathy, TIA 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 ) Endocrine: Yes (INSULIN PUMP, 3 THYROID NODULES) Diabetes, Insulin dep Cataract Loss of Vision: Left Hearing Impairment: Deaf Cancer: Yes (BREAST CA 2010) Breast Did You Recieve Any Treatments: Yes What Type of Treatment Did You: Radiation Psychosocial: No Integumentary: Yes (DIABETIC FOOT ULCER ON LEFT--PT STATES IS NOW HEALED. ) Blood Disorders: No Adverse Reaction/Blood Tranf: No Family Medical History Cardiovascular disease 19 FATHER 19 MOTHER G8 BROTHER G8 SISTER G8 SISTER G8 SISTER Completed stroke 19 FATHER G8 SISTER Diabetes mellitus 19 FATHER G8 SISTER G8 SISTER FH: cancer G8 SISTER G8 SISTER Myocardial infarction G8 BROTHER (65 YEARS OLD) Physical Exam Vital Signs Capillary Refill : Height, Weight, BMI Height: 5'6.00" Weight: 223lbs. 0.5oz. 101.123150dq; 31.00 BMI Method:Stated General Appearance: Moderate Distress, Obese HEENT: PERRL/EOMI, Pharynx Normal Neck: Full Range of Motion, Normal Inspection Cardiovascular: Regular Rate, Rhythm, No Edema, Normal Peripheral Pulses Respiratory: Chest Non Tender, Lungs Clear, Normal Breath Sounds (good symmetric breath sounds), No Accessory Muscle Use, No Respiratory Distress Gastrointestinal: Normal Bowel Sounds, No Organomegaly, Non Tender, Soft Extremities: Normal Capillary Refill, Normal Inspection, Non Tender, No Pedal Edema Neurologic/Psychiatric: Alert, Oriented x3 Cranial Nerves: Normal Hearing, Normal Speech, PERRL Coordination/Gait: Other (able to transfer with two-person standby) Motor/Sensory: No Motor Deficit, No Sensory Deficit, No Pronator Drift Skin: Normal Color, Warm/Dry Focused Exam Lactate Level 06/03/19 10:50: Lactic Acid Level 2.09*H Lactic Acid Level Laboratory Tests Test 06/03/19 10:50 Lactic Acid Level 2.09 MMOL/L (0.50-2.00) *H Progress/Results/Core Measures Results/Orders Lab Results Laboratory Tests Test 06/03/19 10:50 06/03/19 11:10 06/03/19 11:40 Range/Units White Blood Count 9.4 4.3-11.0 10^3/uL Red Blood Count 4.42 4.35-5.85 10^6/uL Hemoglobin 9.9 L 11.5-16.0 G/DL Hematocrit 34 L 35-52 % Mean Corpuscular Volume 77 L 80-99 FL Mean Corpuscular Hemoglobin 22 L 25-34 PG Mean Corpuscular Hemoglobin Concent 29 L 32-36 G/DL Red Cell Distribution Width 20.4 H 10.0-14.5 % Platelet Count 382 130-400 10^3/uL Mean Platelet Volume 9.0 7.4-10.4 FL Neutrophils (%) (Auto) 59 42-75 % Lymphocytes (%) (Auto) 22 12-44 % Monocytes (%) (Auto) 14 H 0-12 % Eosinophils (%) (Auto) 4 0-10 % Basophils (%) (Auto) 0 0-10 % Neutrophils # (Auto) 5.6 1.8-7.8 X 10^3 Lymphocytes # (Auto) 2.1 1.0-4.0 X 10^3 Monocytes # (Auto) 1.4 H 0.0-1.0 X 10^3 Eosinophils # (Auto) 0.4 H 0.0-0.3 10^3/uL Basophils # (Auto) 0.0 0.0-0.1 10^3/uL Prothrombin Time 20.9 H 12.2-14.7 SEC INR Comment 1.7 H 0.8-1.4 Activated Partial Thromboplast Time 39 H 24-35 SEC Sodium Level 133 L 135-145 MMOL/L Potassium Level 4.0 3.6-5.0 MMOL/L Chloride Level 91 L 98-107 MMOL/L Carbon Dioxide Level 26 21-32 MMOL/L Anion Gap 16 H 5-14 MMOL/L Blood Urea Nitrogen 29 H 7-18 MG/DL Creatinine 1.95 H 0.60-1.30 MG/DL Estimat Glomerular Filtration Rate 25 BUN/Creatinine Ratio 15 Glucose Level 175 H 70-105 MG/DL Lactic Acid Level 2.09 *H 0.50-2.00 MMOL/L Calcium Level 9.4 8.5-10.1 MG/DL Corrected Calcium 10.0 8.5-10.1 MG/DL Total Bilirubin 0.7 0.1-1.0 MG/DL Aspartate Amino Transf (AST/SGOT) 26 5-34 U/L Alanine Aminotransferase (ALT/SGPT) 13 0-55 U/L Alkaline Phosphatase 123 40-136 U/L Troponin I 0.056 H <0.028 NG/ML B-Type Natriuretic Peptide 1045.5 H <100.0 PG/ML Total Protein 7.7 6.4-8.2 GM/DL Albumin 3.3 3.2-4.5 GM/DL Smear Scan YES Glucometer 217 H 70-110 MG/DL Urine Color YELLOW Urine Clarity CLEAR Urine pH 6.5 5-9 Urine Specific [place] 1.010 L 1.016-1.022 Urine Protein NEGATIVE NEGATIVE Urine Glucose (UA) NEGATIVE NEGATIVE Urine Ketones NEGATIVE NEGATIVE Urine Nitrite NEGATIVE NEGATIVE Urine Bilirubin NEGATIVE NEGATIVE Urine Urobilinogen 0.2 < = 1.0 MG/DL Urine Leukocyte Esterase NEGATIVE NEGATIVE Urine RBC (Auto) NEGATIVE NEGATIVE Urine RBC NONE /HPF Urine WBC 2-5 /HPF Urine Squamous Epithelial Cells 2-5 /HPF Urine Crystals NONE /LPF Urine Bacteria NEGATIVE /HPF Urine Casts NONE /LPF Urine Mucus NEGATIVE /LPF Urine Culture Indicated NO My Orders Orders - SONYA,NIGHAT J Cbc With Automated Diff (06/03/19 10:33) Comprehensive Metabolic Panel (06/03/19 10:33) Ua Culture If Indicated (06/03/19 10:33) Orthostatic Vital Signs (Adult (06/03/19 10:33) Ekg Tracing (06/03/19 10:33) Continuous Ekg Monitoring (06/03/19 10:33) Troponin I (06/03/19 10:33) BNP (06/03/19 10:33) Ed Iv/Invasive Line Start (06/03/19 10:50) Ns Iv 1000 Ml (Sodium Chloride 0.9%) (06/03/19 10:50) Ns Iv 1000 Ml (Sodium Chloride 0.9%) (06/03/19 10:50) Blood Culture (06/03/19 10:50) Sputum Culture (06/03/19 10:50) Urinalysis (06/03/19 10:50) Urine Culture (06/03/19 10:50) Protime With Inr (06/03/19 10:50) Partial Thromboplastin Time (06/03/19 10:50) Ed Iv/Invasive Line Start (06/03/19 10:50) Ed Iv/Invasive Line Start (06/03/19 10:50) Vital Signs Adult Sepsis Patie Q15M (06/03/19 10:50) O2 (06/03/19 10:50) Remove Rings In Anticipation O (06/03/19 10:50) Lactic Acid Analyzer (06/03/19 10:50) Influenza A And B Antigens (06/03/19 10:50) Vancomycin Injection (Vancomycin Injecti (06/03/19 11:00) Cefepime Injection (Maxipime Injection) (06/03/19 11:00) Ct Head Wo (06/03/19 11:04) Accucheck Stat ONCE (06/03/19 11:05) Wound Culture (06/03/19 11:54) Medications Given in ED Current Medications Medications Dose Ordered Sig/Tresa Route Start Time Stop Time Status Last Admin Dose Admin Cefepime HCl 1000 mg/Sterile Water 10 ml @ 200 mls/hr ONCE ONCE IV 06/03/19 11:00 06/03/19 11:02 DC 06/03/19 11:55 200 MLS/HR Sodium Chloride 1,000 ml @ 0 mls/hr Q0M ONCE IV 06/03/19 10:50 06/03/19 10:59 DC 06/03/19 11:41 1,000 MLS/HR Progress Progress Note : Time: 11:12 Progress Note Patient presents with low blood pressure 88 over her knee. We'll give her 30 mL/kg bolus of fluids. Suspect potential sepsis with her recent history of pneumonia. We'll cover her with vancomycin and cefepime as we do this workup. Miriamrt he had a 2 view chest x-ray obtained on an outpatient side that we can reference. She also get a CT of her head. Labs and suspect also orthostasis, autonomic dysfunction, dehydration etc. Echocardiogram from March [address] Merna: Left ventricular wall thickness is mildly increased with concentric hypertrophy and an EF of 55-65%. Aortic valve with severe stenosis. Initial ECG Impression Date: Jun 03, 2019 Initial ECG Impression Time: 11:03 Initial ECG Rate: 72 Initial ECG Rhythm: Normal Sinus Initial ECG Intervals: ME (311) Initial ECG Intervals QTC 478 ms Initial ECG Impression: Nonspecific Changes, 1st Degree AV Block Initial ECG Comparisson: Unchanged Comment First-degree AV block with no clinically relevant ST elevation or depression. Diagnostic Imaging Diagonstic Imaging: Xray Plain Films/CT/US/NM/MRI: chest (2v) Comments Similar to 05/28/19 all the more organized right and middle lobe infiltrate with atelectasis. Reviewed: Reviewed by Me Diagonstic Imaging: CT Plain Films/CT/US/NM/MRI: head Comments NAME: ANUP SUH [facility] REC#: [id number] PT STATUS: REG ER : 1940 PHYSICIAN: NIGHAT HASSAN MD ADMIT DATE: 06/03/19/ER Draft POSDate of Exam:06/03/19 CT HEAD WO PROCEDURE: CT head without contrast. TECHNIQUE: Multiple contiguous axial images were obtained through the brain without the use of intravenous contrast. Auto Exposure Controls were utilized during the CT exam to meet ALARA standards for radiation dose reduction. INDICATION: Dizziness. Correlation is made with prior head CT from 04/06/2019. FINDINGS: The ventricles and sulci are appropriate for the patient's age. Periventricular hypodensity is noted consistent with senescent change. No sulcal effacement or midline shift is detected. No acute intra-axial or extra-axial hemorrhage is detected. Cisterns are patent. Visualized paranasal sinuses are clear. IMPRESSION: Senescent changes. No acute intracranial process is detected. Dictated on workstation # [id number] Dict: 06/03/19 1121 Trans: 06/03/19 1129 [id number] Interpreted by: AUGUSTA PERALES MD Electronically signed by: Diagonstic Imaging: Ultrasound Plain Films/CT/US/NM/MRI: abdomen Comments Abdominal wall seroma: Complex septated collection in the right lower quadrant extending towards the midline as described. This may represent seroma or lymphocele. Stability of the fluid collection is indeterminate. Reviewed: Reviewed by Me Departure Communication (Admissions) Time/Spoke to Admitting Phy: 12:00 Discussed case lab imaging findings with Dr. Walden he agrees to the patient for syncopal episode and pneumonia Time/Spoke to Consulting Phy: 11:[address] Bauman was in the ER examining another patient we gave report that this patient would be coming to the hospital and he agrees to consult. He'll come back and examine her later. Impression Primary Impression: Syncope Qualified Codes: R55 - Syncope and collapse Additional Impressions: Pneumonia Qualified Codes: J18.1 - Lobar pneumonia, unspecified organism Sepsis Qualified Codes: A41.9 - Sepsis, unspecified organism Disposition: ADMITTED INPATIENT Condition: Stable Admissions Decision to Admit Reason: Admit from ER (General) Decision to Admit/Date: Jun 03, 2019 Time/Decision to Admit Time: 11:55 Departure-Patient Inst. Referrals: JOE ROBERTSON MD (PCP/Family) Primary Care Physician NIGHAT HASSAN Jun 03, 2019 11:04 POS
[2019-06-03 11:06] LABS: BASOPHILS % (AUTO) 0 % (0-10); EOSINOPHILS # (AUTO) 0.4 10^3/uL (0.0-0.3); EOSINOPHILS % (AUTO) 4 % (0-10); HEMATOCRIT 34 % (35-52); HEMOGLOBIN 9.9 G/DL (11.5-16.0); LYMPHOCYTES # (AUTO) 2.1 X 10^3 (1.0-4.0); LYMPHOCYTES % (AUTO) 22 % (12-44); MEAN CORPUSCULAR HEMOGLOBIN 22 PG (25-34); MEAN CORPUSCULAR HGB CONC 29 G/DL (32-36); MEAN CORPUSCULAR VOLUME 77 FL (80-99); MONOCYTES # (AUTO) 1.4 X 10^3 (0.0-1.0); MONOCYTES % (AUTO) 14 % (0-12); NEUTROPHILS # (AUTO) 5.6 X 10^3 (1.8-7.8); NEUTROPHILS % (AUTO) 59 % (42-75); PLATELET COUNT 382 10^3/uL (130-400); RED CELL DISTRIBUTION WIDTH 20.4 % (10.0-14.5); WHITE BLOOD COUNT 9.4 10^3/uL (4.3-11.0)
[2019-06-03 11:09] LABS: SMEAR SCAN COMMENT YES
[2019-06-03 11:19] LABS: INR 1.7 (0.8-1.4); PROTHROMBIN TIME PATIENT 20.9 SEC (12.2-14.7)
[2019-06-03 11:25] LABS: ALBUMIN 3.3 GM/DL (3.2-4.5); BILIRUBIN,TOTAL 0.7 MG/DL (0.1-1.0); CALCIUM 9.4 MG/DL (8.5-10.1); CREATININE SERUM 1.95 MG/DL (0.60-1.30); TOTAL PROTEIN 7.7 GM/DL (6.4-8.2)
--- NOTE | 2019-06-03 11:30 | Diagnostic Imaging Report ---
PROCEDURE: CT head without contrast. TECHNIQUE: Multiple contiguous axial images were obtained through the brain without the use of intravenous contrast. Auto Exposure Controls were utilized during the CT exam to meet ALARA standards for radiation dose reduction. INDICATION: Dizziness. Correlation is made with prior head CT from 04/06/2019. FINDINGS: The ventricles and sulci are appropriate for the patient's age. Periventricular hypodensity is noted consistent with senescent change. No sulcal effacement or midline shift is detected. No acute intra-axial or extra-axial hemorrhage is detected. Cisterns are patent. Visualized paranasal sinuses are clear. IMPRESSION: Senescent changes. No acute intracranial process is detected. Dictated by: Dictated on workstation # [id number]
[2019-06-03 11:51] LABS: BILIRUBIN,URINE NEGATIVE (NEGATIVE); CLARITY,URINE CLEAR; COLOR,URINE YELLOW; GLUCOSE, URINE (UA) NEGATIVE (NEGATIVE); KETONES,URINE NEGATIVE (NEGATIVE); LEUKOCYTE ESTERASE ,URINE NEGATIVE (NEGATIVE); NITRITE,URINE NEGATIVE (NEGATIVE); PH,URINE 6.5 (5-9); PROTEIN,URINE NEGATIVE (NEGATIVE)
[2019-06-03 11:58] LABS: BACTERIA,URINE NEGATIVE /HPF
[2019-06-03] MEDS ORDERED: DIAZEPAM 5 MG (VALIUM) TABLET PO ONE (13:00)
[2019-06-03] MEDS ORDERED: VANCOMYCIN 2000 MG/NS 500 ML IVPB IV ONE ×2 (13:15)
--- NOTE | 2019-06-03 13:31 | NUR ---
Attempted to call report; nurse did not answer.
[2019-06-03] MEDS ORDERED: OXYMETAZOLINE (AFRIN) 0.05% NA 15 ML BTL ONE (13:41)
[2019-06-03] MEDS: OXYMETAZOLINE (AFRIN) 0.05% NA 15 ML BTL SCH (13:43)
--- NOTE | 2019-06-03 14:04 | NUR ---
LAB CALLED A LACTIC ACID 2.8 TO FLOOR -- DR WALDEN WAS ON FLOOR AND MADE AWARE --
--- NOTE | 2019-06-03 14:25 | NUR ---
CR 1.95; CR CL ~26; WT 90.9 KG; VANCO 2000 MG IV GIVEN IN ER; CONTINUE WITH VANCO 1000 MG IV Q24HR; TROUGH AFTER 2ND DOSE
[2019-06-03] MEDS ORDERED: CATHETER FLUSH 10 ML SYR IV PRN (14:30)
[2019-06-03] MEDS ORDERED: INSULIN ASPART 1000 UNIT/10 ML SQ SCH (14:30)
[2019-06-03] MEDS ORDERED: ONDANSETRON 4 MG/2 ML (SDV) Z0FRAN IV PRN ×2 (14:30→16:00)
--- NOTE | 2019-06-03 14:30 | NUR ---
ANPU SUH Olaf admitted to room 415-1, with an admitting diagnosis of SYNCOPE EPISODE, PNEUM, AND SEPSIS, on 06/03/19 from ED via W/C, accompanied Rajeev STAFF AND DAUGHTER.ANUP SUH introduced to surroundings, call light, bed controls, phone, TV, temperature control, lights, meal times, smoking policy, visitor policy, side rail policy, bathrooms and showers. Patient Rights given to patient in the handbook. ANUP SUH verbalizes understanding that [facility] is not responsible for the loss or damage to any personal effects or valuables that are kept in the patients posession during their hospitalization. The following Patient Care Plans were discussed with the PT: Discharge Planning,IMP GAS EXCH, INEFF BREATHING PATTERN, PAIN, INFECTION, ACT INOTL, AND ANX. ANUP SUH verbalizes understanding of Interdisciplinary Patient Education. Patient and/or family were informed about the Rapid Response Team and its purpose. RAYSHAWN IN R FA --
[2019-06-03] MEDS ORDERED: MELATONIN 3 MG TABLET PO PRN (16:00)
[2019-06-03] MEDS ORDERED: ACETAMINOPHEN 325 MG TABLET PO PRN (16:00)
[2019-06-03] MEDS ORDERED: ONDANSETRON 4 MG (ZOFRAN) ORAL DISSOLVE TAB PO PRN (16:00)
[2019-06-03] MEDS ORDERED: POLYETHYLENE GLYCOL 17 GM (MIRALAX) PACK PO PRN (16:00)
[2019-06-03] MEDS ORDERED: BISACODYL 10 MG SUPP (DULCOLAX) PR PRN (16:00)
[2019-06-03] MEDS ORDERED: METO-387 PO (16:09)
[2019-06-03] MEDS ORDERED: ACET325T49 PO (16:09)
[2019-06-03] MEDS ORDERED: ONDN4T PO (16:09)
[2019-06-03] MEDS ORDERED: POTA-51 PO (16:09)
[2019-06-03] MEDS ORDERED: DOCU-143 PO (16:09)
[2019-06-03] MEDS ORDERED: PANT40TA3 PO (16:09)
--- NOTE | 2019-06-03 16:11 | History & Physical-Hospitalist ---
History of Present Illness HPI/Chief Complaint Shamika Cain is an 79yoF with PMH HTN, CKD, CAD, CHF, aortic stenosis s/p TAVR, who presented today for an x-ray and had an episode of orthostatic hypotension and syncope. She reports that she has been having some lightheadedness when she stands up. She denies feeling lightheaded or dizzy before this episode. She remembers standing up to do the xray and tne next thing she remembers is four people standing around her and her sitting in a chair. She denies fevers and chills. She denies chest pain and dyspnea. She denies abdominal pain, nausea, vomiting, diarrhea, and dysuria. 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 Patients Allergies have been reviewed. Allergies Allergies Coded Allergies morphine (Verified Allergy, Intermediate, Nausea, 05/04/19) sulfamethoxazole (Verified Allergy, Intermediate, 10/05/15) tramadol (Verified Allergy, Intermediate, 10/05/15) trimethoprim (Verified Allergy, Intermediate, 10/05/15) Penicillins (Verified Allergy, Unknown, 10/05/15) codeine (Verified Allergy, Unknown, CAN TAKE MORPHINE, 10/05/15) hydrocodone (Verified Allergy, Unknown, 10/05/15) amiodarone (Verified Adverse Reaction, Mild, NAUSEA, dizziness, 02/01/16) Past Vrllymi-Wveqgs-Mcvxti Hx Past Med/Social Hx: Reviewed Nursing Past Med/Soc Hx Patient Social History Alcohol Use: Denies Use Recreational Drug Use: No Smoking Status: Never a Smoker 2nd Hand Smoke Exposure: No Recent Foreign Travel: No Contact w/other who traveled: No Recent Hopitalizations: No Recent Infectious Disease Expo: No Immunizations Up To Date Tetanus Booster (TDap): Less than 5yrs Date of Pneumonia Vaccine: Aug 02, 2018 Date of Influenza Vaccine: May 20, 2018 Seasonal Allergies Seasonal Allergies: No Past Medical History Surgeries: Cardiac, Coronary Stent, Gallbladder, Hysterectomy, Oophorectomy, Orthopedic, Pacemaker, Vascular Surgery Currently Using CPAP: No Currently Using BIPAP: No Cardiac: Atrial Fibrillation, Chronic Edema/Swelling, Coronary Artery Disease, Heart Attack, Heart Murmur, High Cholesterol, Hypertension, Peripheral Vascular, Rheumatic Fever Neurological: Neuropathy, TIA Reproductive: No Sexually Transmitted Disease: No Hysterectomy, Menopausal Genitourinary: Bladder Infection, UTI-Chronic Gastrointestinal: C-Diff, Irritable Bowel Endocrine: Diabetes, Insulin dep HEENT: Cataract Loss of Vision: Left Hearing Impairment: Deaf Cancer: Breast Did You Recieve Any Treatments: Yes What Type of Treatment Did You: Radiation History of Blood Disorders: No Adverse Reaction to Blood High: No Family History Cardiovascular disease 19 FATHER 19 MOTHER G8 BROTHER G8 SISTER G8 SISTER G8 SISTER Completed stroke 19 FATHER G8 SISTER Diabetes mellitus 19 FATHER G8 SISTER G8 SISTER FH: cancer G8 SISTER G8 SISTER Myocardial infarction G8 BROTHER (65 YEARS OLD) Review of Systems Constitutional: dizziness EENTM: no symptoms reported Respiratory: no symptoms reported Cardiovascular: no symptoms reported Gastrointestinal: no symptoms reported Genitourinary: no symptoms reported Musculoskeletal: no symptoms reported Skin: other (drainage from left groin seroma) Psychiatric/Neurological: No Symptoms Reported Physical Exam Physical Exam Vital Signs Vital Signs - First Documented 06/03/19 10:40 Temp 35.5 Pulse 72 Resp 16 B/P (MAP) 88/55 (66) Pulse Ox 97 O2 Delivery Room Air Capillary Refill : Less Than 3 Seconds Height, Weight, BMI Height: 5'6.00" Weight: 223lbs. 0.5oz. 101.103998mz; 32.64 BMI Method:Stated General Appearance: No Apparent Distress, WD/WN HEENT: PERRL/EOMI, Pharynx Normal Neck: Normal Inspection, Supple Respiratory: Lungs Clear, Normal Breath Sounds, No Respiratory Distress Cardiovascular: Regular Rate, Rhythm, No Murmur Gastrointestinal: Normal Bowel Sounds, Non Tender, Soft Extremity: Normal Inspection, Non Tender, Pedal Edema (trace) Neurologic/Psychiatric: Alert, Oriented x3, No Motor/Sensory Deficits, Normal Mood/Affect Skin: Other (left groin wound with serous drainage) Lymphatic: No Adenopathy Results Results/Procedures Labs Laboratory Tests 06/03/19 10:50 Patient resulted labs reviewed. Imaging: Reviewed Imaging Report Assessment/Plan Admission Diagnosis Orthostatic hypotension Admission Status: Observation Assessment and Plan Syncope Orthostatic hypotension Lactic acidosis -Received two liter bolus in ER with improvement in blood pressure -Remained orthostatic once on the floor -Continue NS 100 ml/hr for one liter -LA 2.8, improved to 1.7 -Continue Midodrine -Monitor on telemetry -Consult cardiology Possible pneumonia -Normal WBC, normal procalcitonin, afebrile -CXR with right middle lobe pneumonia -Patient treated for pneumonia recently, likely persistent xray findings post- pneumonia -Repeat procalcitonin, if normal will discontinue antibiotics Seroma -Ultrasound showing large fluid collection -Consult general surgery HTN -Hold metoprolol Paroxysmal AFib -Hold metoprolol -Continue Eliquis CAD Aortic stenosis s/p TAVR -Continue Plavix Chronic CHF -Hold torsemide DVT Prophylaxis: already receiving therapeutic anticoagulation Diagnosis/Problems Diagnosis/Problems (1) Syncope due to orthostatic hypotension Status: Acute (2) Lactic acidosis Status: Acute (3) Seroma after procedure Status: Acute CRIS WALDEN MD Jun 03, 2019 16:10 POS
[2019-06-03] MEDS ORDERED: TORS100T4 PO (16:13)
[2019-06-03] MEDS ORDERED: APIX5TAB PO (16:13)
--- NOTE | 2019-06-03 16:17 | NUR ---
SPOKE WITH THE PATIENT ABOUT HER MEDICATIONS. SHE STATES WHEN SHE WENT [facility] SHE WAS SET UP WITH [facility] [employer]. [facility] AT [phone] HAS BEEN SETTING UP HER MEDICATIONS FOR HER. I HAD A LIST FAXED OVER FROM [employer], SEE CHART FOR DETAILS. I COMPARED THAT LIST WITH THE EXT MED HX. I CALLED AND SPOKE WITH WO[facility] WHO VERIFIED SOME RECENT CHANGES. ELIQUIS 5MG WAS FILLED #60 05-25-19 - THEY ARE NOW TAKING 1/2 TAB (2.5MG) BID, THEY CUT THE 5MG TABS THEY HAVE IN HALF. VICTOZA WAS FILLED 04-28-19 FOR 1.2MG HOWEVER SHE NOW USES 1.8MG. LASIX 40MG DAILY AND METOLAZONE 2.5MG THU AND WERE STOPPED 05-25-19 AND TORSEMIDE 100MG 1/2 TAB DAILY WAS RESUMED. SHE HAD PREVIOUSLY FILLED THE 100MG DAILY HOWEVER NOW IS TAKING 1/2 TAB DAILY. OTC MEDS: TYLENOL PRN VITAMIN D DAILY B12 DAILY (NO LONGER GETS B12 INJECTIONS) COLACE DAILY PATIENT ALSO USES NOVOLOG IN HER INSULIN PUMP, SHE MANAGES THIS HERSELF, NOT HOME HEALTH. ALSO ON THE LIST FROM [facility] WAS JANET, I DO NOT SEE WHERE THAT HAS BEEN FILLED RECENTLY ON THE EXT MED HX BUT ADDED IT TO MED REC NEEDED.
--- NOTE | 2019-06-03 17:04 | Consultation - Surgery ---
[facility] 06/03/19 1704: History of Present Illness History of Present Illness Patient Consulted On(leoncio/time) 06/03/19 17:03 Date Seen by Provider: Jun 03, 2019 Time Seen by Provider: 17:03 History of Present Illness Shamika is a 79 y/o female that has orthostatic hypotension with syncope and possible pneumonia. 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 She does not have any pain associated with this and is just bothered by the amount of fluid leaking from it. She is being followed for this in the outpatient setting and recently had an U/S done and it showed a collection in the right quadrant extending towards the midline and it may represent like previously stated a seroma or lymphocele. Allergies and Home Medications Allergies Coded Allergies: sulfamethoxazole (Verified Allergy, Intermediate, 10/05/15) tramadol (Verified Allergy, Intermediate, 10/05/15) trimethoprim (Verified Allergy, Intermediate, 10/05/15) Penicillins (Verified Allergy, Unknown, 10/05/15) codeine (Verified Allergy, Unknown, CAN TAKE MORPHINE, 10/05/15) hydrocodone (Verified Allergy, Unknown, 10/05/15) morphine (Verified Adverse Reaction, Intermediate, Nausea, 06/03/19) amiodarone (Verified Adverse Reaction, Mild, NAUSEA, dizziness, 02/01/16) Home Medications Acetaminophen 325 Mg Tablet, 650 MG PO Q4H PRN for PAIN-MILD (1-4), (Reported) Allopurinol 100 Mg Tablet, 100 MG PO DAILY, (Reported) Apixaban 5 Mg Tablet, 2.5 MG PO BID, (Reported) TAKES 1/2 (5MG) TABLET Cholecalciferol (Vitamin D3) 5,000 Unit Capsule, 5,000 UNIT PO DAILY, (Reported) Clopidogrel Bisulfate 75 Mg Tablet, 75 MG PO DAILY, (Reported) Cyanocobalamin (Vitamin B-12) 500 Mcg Tablet, 1,000 MCG PO DAILY, (Reported) Docusate Sodium 100 Mg Capsule, 100 MG PO DAILY, (Reported) Estrogens Conjugated 30 Gm Cr, VG MoWeFr, (Reported) Insulin Aspart 100 Unit/1 Ml Susp, PER INSULIN PUMP, (Reported) Liraglutide 0.6 Mg/0.1 Ml Pen.injctr, 1.8 MG SC HS, (Reported) Metoprolol Succinate 25 Mg Tab.er.24h, 12.5 MG PO DAILY, (Reported) TAKES 1/2 (25MG) TABLET Midodrine HCl 10 Mg Tablet, 10 MG PO BID, (Reported) Nitroglycerin 0.4 Mg Tab.subl, 0.4 MG SL UD PRN for CHEST PAIN, (Reported) Ondansetron HCl 4 Mg Tab, 4 MG PO Q6H PRN for NAUSEA/VOMITING-1ST LINE, (Reported) Pantoprazole Sodium 40 Mg Tablet.dr, 40 MG PO DAILY, (Reported) Potassium Chloride 20 Meq Tablet.er, 40 MEQ PO DAILY, (Reported) Rosuvastatin Calcium 20 Mg Tablet, 20 MG PO HS, (Reported) Torsemide 100 Mg Tablet, 50 MG PO DAILY, (Reported) TAKES 1/2 (100MG) TABLET Past Lsiihuu-Lgummh-Svjyti Hx Patient Social History Alcohol Use: Denies Use Recreational Drug Use: No Smoking Status: Never a Smoker 2nd Hand Smoke Exposure: No Recent Foreign Travel: No Contact w/Someone Who Travel: No Recent Infectious Disease Expo: No Recent Hopitalizations: No Physical Abuse Screen: No Sexual Abuse: No Immunizations Up To Date Tetanus Booster (TDap): Less than 5yrs Date of Pneumonia Vaccine: Aug 02, 2018 Date of Influenza Vaccine: Apr 19, 2019 Seasonal Allergies Seasonal Allergies: No Surgeries History of Surgeries: Yes (PACEMAKER, CAROTID ARTERY, HEART CATH-STENTS /ANGIOPLASTY) Surgeries: Cardiac, Coronary Stent, Gallbladder, Hysterectomy, Oophorectomy, Orthopedic, Pacemaker, Vascular Surgery Respiratory History of Respiratory Disorde: Yes Respiratory Disorders: Sleep Apnea Cardiovascular History of Cardiac Disorders: Yes (PACEMAKER, CHF, STENTS X12, AORTIC VALVE REPLACED, CHEST TUBES) Cardiac Disorders: Atrial Fibrillation, Chronic Edema/Swelling, Coronary Artery Disease, Heart Attack, Heart Murmur, High Cholesterol, Hypertension, Peripheral Vascular, Rheumatic Fever Neurological History of Neurological Disord: Yes (TIA AFTER STENT IN JUNE) Neurological Disorders: Neuropathy, TIA Reproductive System : No Hx Reproductive Disorders: No Sexually Transmitted Disease: No 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 ) Endocrine History of Endocrine Disorders: Yes (INSULIN PUMP, 3 THYROID NODULES) Endocrine Disorders: Diabetes, Insulin dep HEENT HEENT Disorders: Cataract Loss of Vision: Left Hearing Impairment: Deaf Cancer History of Cancer: Yes (BREAST CA 2010) Cancer: Breast Psychosocial History of Psychiatric Problem: No Integumentary History of Skin or Integumenta: Yes (DIABETIC FOOT ULCER ON LEFT--PT STATES IS NOW HEALED. ) Blood Transfusions History of Blood Disorders: No Adverse Reaction to a Blood Tr: No Family Medical History Family Medial History: Cardiovascular disease 19 FATHER 19 MOTHER G8 BROTHER G8 SISTER G8 SISTER G8 SISTER Completed stroke 19 FATHER G8 SISTER Diabetes mellitus 19 FATHER G8 SISTER G8 SISTER FH: cancer G8 SISTER G8 SISTER Myocardial infarction G8 BROTHER (65 YEARS OLD) Review of Systems-General Constitutional: no symptoms reported EENTM: no symptoms reported Respiratory: no symptoms reported Cardiovascular: no symptoms reported Gastrointestinal: no symptoms reported Genitourinary: no symptoms reported Musculoskeletal: no symptoms reported Skin: other (Right draining wound ) Psychiatric/Neurological: No Symptoms Reported Physical Exam-General Problems Physical Exam Vital Signs Vital Signs - First Documented 06/03/19 06/03/19 10:40 16:45 Temp 35.5 Pulse 72 Resp 16 B/P (MAP) 88/55 (66) Pulse Ox 97 O2 Delivery Room Air FiO2 21 Capillary Refill : Less Than 3 Seconds General Appearance: WD/WN, no apparent distress Eyes: Bilateral Eye PERRL, Bilateral Eye EOMI Neck: non-tender, supple Respiratory: chest non-tender, lungs clear, no respiratory distress, no accessory muscle use Cardiovascular: normal peripheral pulses Peripheral Pulses: 2+ Dorsalis Pedis (R), 2+ Left Dors-Pedis (L), 2+ Radial Pulses (R), 2+ Radial Pulses (L) Gastrointestinal: non tender, soft, no organomegaly Neurologic/Psychiatric: alert, normal mood/affect, oriented x 3 Skin: normal color, warm/dry Lymphatic: no adenopathy Data Review Labs Laboratory Tests 06/03/19 10:50: White Blood Count 9.4, Red Blood Count 4.42, Hemoglobin 9.9L, Hematocrit 34L, Mean Corpuscular Volume 77L, Mean Corpuscular Hemoglobin 22L, Mean Corpuscular Hemoglobin Concent 29L, Red Cell Distribution Width 20.4H, Platelet Count 382, Mean Platelet Volume 9.0, Neutrophils (%) (Auto) 59, Lymphocytes (%) (Auto) 22, Monocytes (%) (Auto) 14H, Eosinophils (%) (Auto) 4, Basophils (%) (Auto) 0, Neutrophils # (Auto) 5.6, Lymphocytes # (Auto) 2.1, Monocytes # (Auto) 1.4H, E osinophils # (Auto) 0.4H, Basophils # (Auto) 0.0, Prothrombin Time 20.9H, INR Comment 1.7H, Activated Partial Thromboplast Time 39H, Sodium Level 133L, Potassium Level 4.0, Chloride Level 91L, Carbon Dioxide Level 26, Anion Gap 16H, Blood Urea Nitrogen 29H, Creatinine 1.95H, Estimat Glomerular Filtration Rate 25, BUN/Creatinine Ratio 15, Glucose Level 175H, Lactic Acid Level 2.09*H, Calcium Level 9.4, Corrected Calcium 10.0, Total Bilirubin 0.7, Aspartate Amino Transf (AST/SGOT) 26, Alanine Aminotransferase (ALT/SGPT) 13, Alkaline Phosphatase 123, Troponin I 0.056H, B-Type Natriuretic Peptide 1045.5H, Total Protein 7.7, Albumin 3.3, Procalcitonin 0.13H, Smear Scan YES 06/03/19 11:10: Glucometer 217H 06/03/19 11:40: Urine Color YELLOW, Urine Clarity CLEAR, Urine pH 6.5, Urine Specific [place] 1.010L, Urine Protein NEGATIVE, Urine Glucose (UA) NEGATIVE, Urine Ketones NEGATIVE, Urine Nitrite NEGATIVE, Urine Bilirubin NEGATIVE, Urine Urobilinogen 0.2, Urine Leukocyte Esterase NEGATIVE, Urine RBC (Auto) NEGATIVE, Urine RBC NONE, Urine WBC 2-5, Urine Squamous Epithelial Cells 2-5, Urine Crystals NONE, Urine Bacteria NEGATIVE, Urine Casts NONE, Urine Mucus NEGATIVE, Urine Culture Indicated NO 06/03/19 13:20: Lactic Acid Level 2.80*H 06/03/19 15:17: Glucometer 191H 06/03/19 15:35: Lactic Acid Level 1.73 Microbiology 06/03/19 Influenza Types A,B Antigen (CHERRY) - Final, Complete Assessment/Plan Assessment/Plan Assessment/Plan Syncope, orthostatic hypotension, lactic acidosis, possible pneumonia, seroma/lymphocele, HTN, AFIB, CAD, Chronic CHF Inspected the draining seroma/lymphocele. It is not infected and is draining without issue. There is no erythema noted. We will monitor the seroma/lymphocele at this time and let the medicine team manage her chronic and more worrisome issues first. Clinical Quality Measures DVT/VTE Risk/Contraindication: Risk Factor Score Per Nursin RFS Level Per Nursing on Admit: 4+=Very High ZOLTAN VERMA DO 06/03/191915: History of Present Illness History of Present Illness History of Present Illness Consult requested by Dr. Ga for seroma right groin. Henry is an 79 year old female with clear serous drainage from right groin incision. Patient had recent TAVR at . Patient has had this for several weeks. She is not experiencing any pain from this area, and no purulent material. She states nothing seems to make it better or worse. Patient admitted due to syncope and orthostatic hypotension, possible pneumonia. Had u/s performed showing collection of fluid consistent with seroma or lymphocele. Allergies and Home Medications Allergies Coded Allergies: sulfamethoxazole (Verified Allergy, Intermediate, 10/05/15) tramadol (Verified Allergy, Intermediate, 10/05/15) trimethoprim (Verified Allergy, Intermediate, 10/05/15) Penicillins (Verified Allergy, Unknown, 10/05/15) codeine (Verified Allergy, Unknown, CAN TAKE MORPHINE, 10/05/15) hydrocodone (Verified Allergy, Unknown, 10/05/15) morphine (Verified Adverse Reaction, Intermediate, Nausea, 06/03/19) amiodarone (Verified Adverse Reaction, Mild, NAUSEA, dizziness, 02/01/16) Home Medications Acetaminophen 325 Mg Tablet, 650 MG PO Q4H PRN for PAIN-MILD (1-4), (Reported) Allopurinol 100 Mg Tablet, 100 MG PO DAILY, (Reported) Apixaban 5 Mg Tablet, 2.5 MG PO BID, (Reported) TAKES 1/2 (5MG) TABLET Cholecalciferol (Vitamin D3) 5,000 Unit Capsule, 5,000 UNIT PO DAILY, (Reported) Clopidogrel Bisulfate 75 Mg Tablet, 75 MG PO DAILY, (Reported) Cyanocobalamin (Vitamin B-12) 500 Mcg Tablet, 1,000 MCG PO DAILY, (Reported) Docusate Sodium 100 Mg Capsule, 100 MG PO DAILY, (Reported) Estrogens Conjugated 30 Gm Cr, VG MoWeFr, (Reported) Insulin Aspart 100 Unit/1 Ml Susp, PER INSULIN PUMP, (Reported) Liraglutide 0.6 Mg/0.1 Ml Pen.injctr, 1.8 MG SC HS, (Reported) Metoprolol Succinate 25 Mg Tab.er.24h, 12.5 MG PO DAILY, (Reported) TAKES 1/2 (25MG) TABLET Midodrine HCl 10 Mg Tablet, 10 MG PO BID, (Reported) Nitroglycerin 0.4 Mg Tab.subl, 0.4 MG SL UD PRN for CHEST PAIN, (Reported) Ondansetron HCl 4 Mg Tab, 4 MG PO Q6H PRN for NAUSEA/VOMITING-1ST LINE, (Reported) Pantoprazole Sodium 40 Mg Tablet.dr, 40 MG PO DAILY, (Reported) Potassium Chloride 20 Meq Tablet.er, 40 MEQ PO DAILY, (Reported) Rosuvastatin Calcium 20 Mg Tablet, 20 MG PO HS, (Reported) Torsemide 100 Mg Tablet, 50 MG PO DAILY, (Reported) TAKES 1/2 (100MG) TABLET Patient Home Medication List Home Medication List Reviewed: Yes Past Iquzvht-Budete-Gamboy Hx Patient Social History Alcohol Use: Denies Use Recreational Drug Use: No Smoking Status: Never a Smoker 2nd Hand Smoke Exposure: No Recent Foreign Travel: No Contact w/Someone Who Travel: No Recent Infectious Disease Expo: No Recent Hopitalizations: No Physical Abuse Screen: No Sexual Abuse: No Surgeries History of Surgeries: Yes (PACEMAKER, CAROTID ARTERY, HEART CATH-STENTS /ANGIOPLASTY, TAVR) Surgeries: Cardiac, Coronary Stent, Gallbladder, Hysterectomy, Oophorectomy, Orthopedic, Pacemaker, Vascular Surgery Respiratory History of Respiratory Disorde: Yes Respiratory Disorders: Sleep Apnea Cardiovascular History of Cardiac Disorders: Yes (PACEMAKER, CHF, STENTS X12, AORTIC VALVE REPLACED, CHEST TUBES) Cardiac Disorders: Atrial Fibrillation, Chronic Edema/Swelling, Coronary Artery Disease, Heart Attack, Heart Murmur, High Cholesterol, Hypertension, Peripheral Vascular, Rheumatic Fever Neurological History of Neurological Disord: Yes (TIA AFTER STENT IN JUNE) Neurological Disorders: Neuropathy, TIA Reproductive System : No Hx Reproductive Disorders: No Sexually Transmitted Disease: No 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 ) Endocrine Endocrine Disorders: Diabetes, Insulin dep HEENT HEENT Disorders: Cataract Cancer History of Cancer: Yes (BREAST CA 2010) Cancer: Breast Psychosocial History of Psychiatric Problem: No Blood Transfusions History of Blood Disorders: No Adverse Reaction to a Blood Tr: No Family Medical History Significant Family History: No Pertinent Family Hx Family Medial History: Cardiovascular disease 19 FATHER 19 MOTHER G8 BROTHER G8 SISTER G8 SISTER G8 SISTER Completed stroke 19 FATHER G8 SISTER Diabetes mellitus 19 FATHER G8 SISTER G8 SISTER FH: cancer G8 SISTER G8 SISTER Myocardial infarction G8 BROTHER (65 YEARS OLD) Review of Systems-General Constitutional: no symptoms reported EENTM: no symptoms reported Respiratory: no symptoms reported Cardiovascular: no symptoms reported Gastrointestinal: no symptoms reported Genitourinary: no symptoms reported Musculoskeletal: no symptoms reported Skin: other (Right draining wound ) Psychiatric/Neurological: No Symptoms Reported Physical Exam-General Problems Physical Exam General Appearance: WD/WN, no apparent distress HEENT: PERRL/EOMI, normal ENT inspection Neck: non-tender, supple Respiratory: chest non-tender, no respiratory distress, no accessory muscle use Cardiovascular: normal peripheral pulses Gastrointestinal: non tender, soft, no organomegaly, other (right groin incision few opening in skin, serous fluid drainaging slightly no evidence of infection) Rectal: deferred Back: no CVA tenderness Extremities: non-tender Neurologic/Psychiatric: alert, normal mood/affect, oriented x 3 Skin: normal color, warm/dry Lymphatic: no adenopathy Assessment/Plan Assessment/Plan Assessment/Plan Syncope, orthostatic hypotension, lactic acidosis, possible pneumonia, seroma/lymphocele, HTN, AFIB, CAD, Chronic CHF area is draining but does not look infected. would keep area clean and dry. will have sand bag applied for pressure to see if this causes improvement seroma or lymphocele related to recent TAVR. will follow Supervisory-Addendum Brief Verification & Attestation Participated in pt care: history, MDM, physical Personally performed: exam, history, MDM, supervision of care Care discussed with: Medical Student Procedures: n/a Results interpretation: Verified all documentation Verification and Attestation of Medical Student E/M Service A medical student performed and documented this service in my presence. I reviewed and verified all information documented by the medical student and made modifications to such information, when appropriate. I personally performed the physical exam and medical decision making. Zoltan Verma, Jun 03, 2019,19:22 [facility] Jun 03, 2019 17:04 ZOLTAN SALGADO DO Jun 03, 2019 19:16 POS
[2019-06-03] MEDS: inSUlin ASPART (NovoLOG) 1 UNIT/0.01 ML (CHARGE PER UNIT) SC SCH ×2 (17:46→20:45)
[2019-06-03] MEDS: MIDODRINE 10 MG (PROAMATINE) TAB PO SCH (18:02)
--- NOTE | 2019-06-03 18:33 | NUR ---
NOTE THAT PT HAS INSULIN PUMP AND FAMILY ADVICED STAFF THE CHANGE INSULIN
[2019-06-03] MEDS: APIXABAN 2.5 MG (ELIQUIS) TABLET PO SCH (19:43)
[2019-06-03] MEDS: DOCUSATE SODIUM 100 MG (COLACE) CAP PO SCH (19:43)
[2019-06-03] MEDS ORDERED: ROSUVASTATIN 20 MG (CRESTOR) TABLET PO SCH (21:00)
[2019-06-03] MEDS: CATHETER FLUSH 10 ML SYR IV SCH (22:13)
[2019-06-03] MEDS ORDERED: CEFEPIME 2,000 MG/SWFI 20 ML IV PUSH IV SCH ×2 (23:00)
[2019-06-04 03:56] VITALS: BP 117/69
--- NOTE | 2019-06-04 05:37 | Consultation-Cardiology ---
HPI-Cardiology Cardiology Consultation Date of Consultation 06/04/19 Date of Admission Time Seen by Provider: 05:31 Indication: Syncope HPI 79 years old lady with history of aortic valve replacement, coronary artery disease, chronic kidney disease, admitted through the emergency room with syncopal episode and hypotension. Has history of orthostatic hypotension which has been worsening recently. Denied any chest pain, denied any palpitation, still having discharge from her right groin, no fever or chills Home Medications & Allergies Allergies: Coded Allergies: sulfamethoxazole (Verified Allergy, Intermediate, 10/05/15) tramadol (Verified Allergy, Intermediate, 10/05/15) trimethoprim (Verified Allergy, Intermediate, 10/05/15) Penicillins (Verified Allergy, Unknown, 10/05/15) codeine (Verified Allergy, Unknown, CAN TAKE MORPHINE, 10/05/15) hydrocodone (Verified Allergy, Unknown, 10/05/15) morphine (Verified Adverse Reaction, Intermediate, Nausea, 06/03/19) amiodarone (Verified Adverse Reaction, Mild, NAUSEA, dizziness, 02/01/16) Home Medication List Reviewed: Yes [id number] Hx Patient Social History Marital Status: Employed/Student: retired Alcohol Use: Denies Use Recreational Drug Use: No Smoking Status: Never a Smoker 2nd Hand Smoke Exposure: No Recent Foreign Travel: No Recent Infectious Disease Expo: No Recent Hopitalizations: No Physical Abuse Screen: No Sexual Abuse: No Immunizations Up To Date Tetanus Booster (TDap): Less than 5yrs Date of Pneumonia Vaccine: Aug 02, 2018 Date of Influenza Vaccine: Apr 19, 2019 Past Medical History Discussed below Family Medical History Significant Family History: No Pertinent Family Hx Family History: Cardiovascular disease 19 FATHER 19 MOTHER G8 BROTHER G8 SISTER G8 SISTER G8 SISTER Completed stroke 19 FATHER G8 SISTER Diabetes mellitus 19 FATHER G8 SISTER G8 SISTER FH: cancer G8 SISTER G8 SISTER Myocardial infarction G8 BROTHER (65 YEARS OLD) Review of Systems-General Review of Systems Constitutional: see HPI, dizziness, weakness EENTM: see HPI, no symptoms reported Respiratory: see HPI; No cough; dyspnea on exertion; No hemoptysis, No orthopnea, No phlegm; short of breath; No stridor, No wheezing, No other Cardiovascular: see HPI; No chest pain; edema; No Hx of Intervention, No palpitations; syncope; No vascular heart diseas, No other Gastrointestinal: no symptoms reported, see HPI Genitourinary: no symptoms reported, see HPI : No Musculoskeletal: see HPI, joint pain Skin: other (Right draining wound ) Psychiatric/Neurological: No Symptoms Reported All Other Systems Reviewed Negative Unless Noted: Yes Reviewed Test Results Reviewed Test Results Lab Laboratory Tests Test 06/03/19 10:50 06/03/19 11:10 06/03/19 11:40 06/03/19 13:20 Range/Units White Blood Count 9.4 4.3-11.0 10^3/uL Red Blood Count 4.42 4.35-5.85 10^6/uL Hemoglobin 9.9 L 11.5-16.0 G/DL Hematocrit 34 L 35-52 % Mean Corpuscular Volume 77 L 80-99 FL Mean Corpuscular Hemoglobin 22 L 25-34 PG Mean Corpuscular Hemoglobin Concent 29 L 32-36 G/DL Red Cell Distribution Width 20.4 H 10.0-14.5 % Platelet Count 382 130-400 10^3/uL Mean Platelet Volume 9.0 7.4-10.4 FL Neutrophils (%) (Auto) 59 42-75 % Lymphocytes (%) (Auto) 22 12-44 % Monocytes (%) (Auto) 14 H 0-12 % Eosinophils (%) (Auto) 4 0-10 % Basophils (%) (Auto) 0 0-10 % Neutrophils # (Auto) 5.6 1.8-7.8 X 10^3 Lymphocytes # (Auto) 2.1 1.0-4.0 X 10^3 Monocytes # (Auto) 1.4 H 0.0-1.0 X 10^3 Eosinophils # (Auto) 0.4 H 0.0-0.3 10^3/uL Basophils # (Auto) 0.0 0.0-0.1 10^3/uL Prothrombin Time 20.9 H 12.2-14.7 SEC INR Comment 1.7 H 0.8-1.4 Activated Partial Thromboplast Time 39 H 24-35 SEC Sodium Level 133 L 135-145 MMOL/L Potassium Level 4.0 3.6-5.0 MMOL/L Chloride Level 91 L 98-107 MMOL/L Carbon Dioxide Level 26 21-32 MMOL/L Anion Gap 16 H 5-14 MMOL/L Blood Urea Nitrogen 29 H 7-18 MG/DL Creatinine 1.95 H 0.60-1.30 MG/DL Estimat Glomerular Filtration Rate 25 BUN/Creatinine Ratio 15 Glucose Level 175 H 70-105 MG/DL Lactic Acid Level 2.09 *H 2.80 *H 0.50-2.00 MMOL/L Calcium Level 9.4 8.5-10.1 MG/DL Corrected Calcium 10.0 8.5-10.1 MG/DL Total Bilirubin 0.7 0.1-1.0 MG/DL Aspartate Amino Transf (AST/SGOT) 26 5-34 U/L Alanine Aminotransferase (ALT/SGPT) 13 0-55 U/L Alkaline Phosphatase 123 40-136 U/L Troponin I 0.056 H <0.028 NG/ML B-Type Natriuretic Peptide 1045.5 H <100.0 PG/ML Total Protein 7.7 6.4-8.2 GM/DL Albumin 3.3 3.2-4.5 GM/DL Procalcitonin 0.13 H <0.10 NG/ML Smear Scan YES Glucometer 217 H 70-110 MG/DL Urine Color YELLOW Urine Clarity CLEAR Urine pH 6.5 5-9 Urine Specific [place] 1.010 L 1.016-1.022 Urine Protein NEGATIVE NEGATIVE Urine Glucose (UA) NEGATIVE NEGATIVE Urine Ketones NEGATIVE NEGATIVE Urine Nitrite NEGATIVE NEGATIVE Urine Bilirubin NEGATIVE NEGATIVE Urine Urobilinogen 0.2 < = 1.0 MG/DL Urine Leukocyte Esterase NEGATIVE NEGATIVE Urine RBC (Auto) NEGATIVE NEGATIVE Urine RBC NONE /HPF Urine WBC 2-5 /HPF Urine Squamous Epithelial Cells 2-5 /HPF Urine Crystals NONE /LPF Urine Bacteria NEGATIVE /HPF Urine Casts NONE /LPF Urine Mucus NEGATIVE /LPF Urine Culture Indicated NO Test 06/03/19 15:17 06/03/19 15:35 06/03/19 20:37 Range/Units Glucometer 191 H 212 H 70-110 MG/DL Lactic Acid Level 1.73 0.50-2.00 MMOL/L Physical Exam Physical Exam Vital Signs Vital Signs - First Documented 06/03/19 06/03/19 10:40 16:45 Temp 35.5 Pulse 72 Resp 16 B/P (MAP) 88/55 (66) Pulse Ox 97 O2 Delivery Room Air FiO2 21 Capillary Refill : Less Than 3 Seconds Height, Weight, BMI Height: 5'6.00" Weight: 223lbs. 0.5oz. [id number]; 32.64 BMI Method:Stated General Appearance: No Apparent Distress, WD/WN Eyes: Bilateral Eye PERRL, Bilateral Eye EOMI HEENT: PERRL/EOMI, Pharynx Normal Neck: Normal Inspection, Supple Respiratory: Lungs Clear, Normal Breath Sounds, No Respiratory Distress Cardiovascular: Regular Rate, Rhythm, No Murmur Gastrointestinal: Normal Bowel Sounds, Non Tender, Soft Extremity: Normal Inspection, Non Tender, Pedal Edema (trace) Neurologic/Psychiatric: Alert, Oriented x3, No Motor/Sensory Deficits, Normal Mood/Affect Skin: Other (left groin wound with serous drainage) Lymphatic: No Adenopathy A/P-Cardiology Admission Diagnosis Syncope Hypotension Coronary artery disease Diabetes mellitus Assessment/Plan Syncope, borderline hypotension, history of labile hypertension, currently off all her blood pressure medications except for 12.5 mg metoprolol which I stopped, still taking torsemide 50 mg daily. Continue to monitor blood pressure Status post large pleural effusion that has resolved after thoracentesis. Doing better History of TAVR with a #[address] Cheema at [facility] on Apr 06, 2019 - at which time she had a chest tube placed d/t signif right sided pleural effusion (removed on 04-26-19) Coronary artery disease, multiple interventions in the past, reports a total of 11 stents. Multivessel disease. Cardiac catheterization was done in October 2012 showing severe stenosis in the midright coronary artery treated with 3.0 x 24 mm Promus elements stent. Severe stenosis in the proximal diagonal artery, very small artery not amenable to intervention. Repeat cardiac catheterization on November 19, [address] Burch, had a stent to the circumflex artery, the stent sizes was not described in the report. Cardiac catheterization done December 26, 2016 with balloon angioplasty to the mid circumflex for 80 percent in-stent restenosis. Patient was brought back the same day where she underwent repeat cardiac catheterization after having chest pain, underwent another balloon angioplasty and stent deployment in the distal circumflex: 3.5 x 18 mm Xience Alpine stent. Underwent cardiac catheterization on February 04, [address] Mcdonnell, which showed moderate multivessel coronary artery disease, had FFR 0.83 to the LAD and 0.91 to the left circumflex artery, treated conservatively. Most recent cardiac cath of Apr 06, [address] Bauman showed Critical aortic valve stenosis with pressure gradient during pullback to 60 mmHg. Severe ostial LAD stenosis, multiple stents in the LAD. Moderate to severe mid in-stent restenosis in the circumflex artery. Moderate distal right coronary artery stenosis. Elevated left ventricular end-diastolic pressure - conservative CAD management - transferred to [facility] for TAVR Peripheral arterial disease, history of nonhealing foot ulcer and stent done in 2016. Peripheral angio in September 2017 showing total occlusion of the left SFA, treated with Innova 6 x 150 from the ostium of the left SFA to the mid SFA overlapping with old stent with excellent results. Underwent peripheral angiogram on September 02, [address] Sotomayor with left SFA popliteal atherectomy and angioplasty, left anterior tibial artery angioplasty with widely patent vessels following intervention Intraocular hemorrhage, underwent multiple laser procedure, she lost vision in her left eye last week and seen by Dr. Mckeon and she is following with Dr. Hdez in [place] Echocardiogram of Apr 06, 2019 showed LVEF 55-65%. Severe Ao stenosis with mean gradient 24, valve measuring 0.8 cm2. Mild to mod TR. PASP 50-55mmHg Hyperlipidemia - Crestor (reported intolerance to Lipitor) Diabetes mellitus, followed and managed by primary care physician. Sick sinus syndrome, history of permanent pacemaker placement. ALEXANDALEXAtronic device, checked in November 2018 showing good sensing and capture activity, 1 high atrial rhythm Carotid stenosis, history of right carotid endarterectomy. CTA of neck done on February 01, 2016 revealed no significant stenosis in the internal carotid arteries. Prominent focus of stenosis in the distal aspect of the left vertebral artery at the foramen magnum and level dominant right vertebral artery demonstrates no significant stenosis. Carotid ultrasound in April 2018 showed mild bilateral disease Paroxysmal atrial fibrillation OAC with Eliquis Intolerance to amiodarone. 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 followed by Dr. Palomino, currently in remission. Chronic renal insufficiency, stage III renal disease, followed by Dr. Long, continue to monitor Clinically better. After stopping metoprolol I will consider discharge and follow-up as an outpatient Clinical Quality Measures DVT/VTE Risk/Contraindication: Risk Factor Score Per Nursin RFS Level Per Nursing on Admit: 4+=Very High DIMPLE BAUMAN MD Jun 04, 2019 05:37 POS
[2019-06-04] MEDS: inSUlin ASPART (NovoLOG) 1 UNIT/0.01 ML (CHARGE PER UNIT) SC SCH ×2 (05:38→10:42)
[2019-06-04 06:17] LABS: BASOPHILS % (AUTO) 0 % (0-10); EOSINOPHILS # (AUTO) 0.3 10^3/uL (0.0-0.3); EOSINOPHILS % (AUTO) 3 % (0-10); HEMATOCRIT 30 % (35-52); HEMOGLOBIN 8.7 G/DL (11.5-16.0); LYMPHOCYTES # (AUTO) 2.1 X 10^3 (1.0-4.0); LYMPHOCYTES % (AUTO) 24 % (12-44); MEAN CORPUSCULAR HEMOGLOBIN 22 PG (25-34); MEAN CORPUSCULAR HGB CONC 29 G/DL (32-36); MEAN CORPUSCULAR VOLUME 77 FL (80-99); MONOCYTES % (AUTO) 12 % (0-12); NEUTROPHILS # (AUTO) 5.2 X 10^3 (1.8-7.8); NEUTROPHILS % (AUTO) 61 % (42-75); PLATELET COUNT 338 10^3/uL (130-400); RED CELL DISTRIBUTION WIDTH 20.3 % (10.0-14.5); WHITE BLOOD COUNT 8.6 10^3/uL (4.3-11.0)
[2019-06-04] MEDS: MIDODRINE 10 MG (PROAMATINE) TAB PO SCH (06:21)
[2019-06-04] MEDS: CATHETER FLUSH 10 ML SYR IV SCH (06:21)
[2019-06-04 06:31] LABS: ALBUMIN 2.9 GM/DL (3.2-4.5); BILIRUBIN,TOTAL 0.5 MG/DL (0.1-1.0); CALCIUM 8.1 MG/DL (8.5-10.1); CREATININE SERUM 1.61 MG/DL (0.60-1.30); POTASSIUM 3.5 MMOL/L (3.6-5.0); TOTAL PROTEIN 6.5 GM/DL (6.4-8.2)
[2019-06-04] MEDS ORDERED: KCL 20 MEQ TAB (K-DUR) PO ONE (07:15)
[2019-06-04 08:00] VITALS: BP 113/70
[2019-06-04] MEDS ORDERED: TORS20TA3 PO (08:57)
[2019-06-04] MEDS ORDERED: APIXABAN 5 MG (ELIQUIS) TABLET PO SCH (09:00)
[2019-06-04] MEDS ORDERED: CLOPIDOGREL 75 MG (PLAVIX) TABLET PO SCH ×2 (09:00)
[2019-06-04] MEDS: DOCUSATE SODIUM 100 MG (COLACE) CAP PO SCH (09:00)
[2019-06-04] MEDS: OXYMETAZOLINE (AFRIN) 0.05% NA 15 ML BTL SCH (09:00)
[2019-06-04] MEDS ORDERED: TORSEMIDE 20 MG (DEMADEX) TAB PO SCH (09:00)
[2019-06-04] MEDS ORDERED: PANTOPRAZOLE 40 MG (PROTONIX) TAB PO SCH (09:00)
--- NOTE | 2019-06-04 09:01 | Discharge Summary ---
Discharge Summary Hospital Course Was the Problem List Reviewed?: Yes Problems/Dx: (1) Syncope due to orthostatic hypotension Status: Acute (2) Lactic acidosis Status: Resolved (3) Seroma after procedure Status: Acute Final Diagnosis: Syncope due to orthostatic hypotension Hospital Course Date of Admission: Jun 03, 2019 at 12:28 Admission Diagnosis : Syncope due to orthostatic hypotension Family Physician/Provider: Rashaun Gonzales MD Date of Discharge: 06/04/19 Discharge Diagnosis: Syncope due to orthostatic hypotension Hospital Course: Shamika Cain is an 79yoF with multiple comorbidities who presented after a syncopal episode while getting a chest xray. She was given IV fluids and responded well. 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 Bauman. She was also seen by Dr. Reno, surgery, who is following her for a post-procedural seroma. She was discharged home on a decreased dose of Torsemide. Labs and Pending Lab Test: Laboratory Tests 06/03/19 10:50: White Blood Count 9.4, Red Blood Count 4.42, Hemoglobin 9.9L, Hematocrit 34L, Mean Corpuscular Volume 77L, Mean Corpuscular Hemoglobin 22L, Mean Corpuscular Hemoglobin Concent 29L, Red Cell Distribution Width 20.4H, Platelet Count 382, Mean Platelet Volume 9.0, Neutrophils (%) (Auto) 59, Lymphocytes (%) (Auto) 22, Monocytes (%) (Auto) 14H, Eosinophils (%) (Auto) 4, Basophils (%) (Auto) 0, Neutrophils # (Auto) 5.6, Lymphocytes # (Auto) 2.1, Monocytes # (Auto) 1.4H, Eosinophils # (Auto) 0.4H, Basophils # (Auto) 0.0, Prothrombin Time 20.9H, INR Comment 1.7H, Activated Partial Thromboplast Time 39H, Sodium Level 133L, Potassium Level 4.0, Chloride Level 91L, Carbon Dioxide Level 26, Anion Gap 16H, Blood Urea Nitrogen 29H, Creatinine 1.95H, Estimat Glomerular Filtration Rate 25, BUN/Creatinine Ratio 15, Glucose Level 175H, Lactic Acid Level 2.09*H, Calcium Level 9.4, Corrected Calcium 10.0, Total Bilirubin 0.7, Aspartate Amino Transf (AST/SGOT) 26, Alanine Aminotransferase (ALT/SGPT) 13, Alkaline Phosphatase 123, Troponin I 0.056H, B-Type Natriuretic Peptide 1045.5H, Total Protein 7.7, Albumin 3.3, Procalcitonin 0.13H, Smear Scan YES 06/03/19 11:10: Glucometer 217H 06/03/19 11:40: Urine Color YELLOW, Urine Clarity CLEAR, Urine pH 6.5, Urine Specific [place] 1.010L, Urine Protein NEGATIVE, Urine Glucose (UA) NEGATIVE, Urine Ketones NEGATIVE, Urine Nitrite NEGATIVE, Urine Bilirubin NEGATIVE, Urine Urobilinogen 0.2, Urine Leukocyte Esterase NEGATIVE, Urine RBC (Auto) NEGATIVE, Urine RBC NONE, Urine WBC 2-5, Urine Squamous Epithelial Cells 2-5, Urine Crystals NONE, Urine Bacteria NEGATIVE, Urine Casts NONE, Urine Mucus NEGATIVE, Urine Culture Indicated NO 06/03/19 13:20: Lactic Acid Level 2.80*H 06/03/19 15:17: Glucometer 191H 06/03/19 15:35: Lactic Acid Level 1.73 06/03/19 20:37: Glucometer 212H 06/04/19 05:30: White Blood Count 8.6, Red Blood Count 3.89L, Hemoglobin 8.7L, Hematocrit 30L, Mean Corpuscular Volume 77L, Mean Corpuscular Hemoglobin 22L, Mean Corpuscular Hemoglobin Concent 29L, Red Cell Distribution Width 20.3H, Platelet Count 338, Mean Platelet Volume 9.0, Neutrophils (%) (Auto) 61, Lymphocytes (%) (Auto) 24, Monocytes (%) (Auto) 12, Eosinophils (%) (Auto) 3, Basophils (%) (Auto) 0, Neutrophils # (Auto) 5.2, Lymphocytes # (Auto) 2.1, Monocytes # (Auto) 1.0, Eosinophils # (Auto) 0.3, Basophils # (Auto) 0.0, Sodium Level 133L, Potassium Level 3.5L, Chloride Level 97L, Carbon Dioxide Level 24, Anion Gap 12, Blood Urea Nitrogen 25H, Creatinine 1.61H, Estimat Glomerular Filtration Rate 31, BUN/Creatinine Ratio 16, Glucose Level 91, Calcium Level 8.1L, Corrected Calcium 9.0, Total Bilirubin 0.5, Aspartate Amino Transf (AST/SGOT) 22, Alanine Aminotransferase (ALT/SGPT) 12, Alkaline Phosphatase 102, Total Protein 6.5, Albumin 2.9L, Procalcitonin 0.10H 06/04/19 05:33: Glucometer 102 Microbiology 06/03/19 Influenza Types A,B Antigen (CHERRY) - Final, Complete Home Meds Active Torsemide 20 Mg Tablet 40 Mg PO DAILY 30 Days Reported Eliquis (Apixaban) 5 Mg Tablet 2.5 Mg PO BID TAKES 1/2 (5MG) TABLET Torsemide 100 Mg Tablet 50 Mg PO DAILY TAKES 1/2 (100MG) TABLET Zofran (Ondansetron HCl) 4 Mg Tab 4 Mg PO Q6H PRN Colace (Docusate Sodium) 100 Mg Capsule 100 Mg PO DAILY Pantoprazole Sodium 40 Mg Tablet.dr 40 Mg PO DAILY Potassium Chloride 20 Meq Tablet.er 40 Meq PO DAILY Acetaminophen 325 Mg Tablet 650 Mg PO Q4H PRN Vitamin B-12 (Cyanocobalamin (Vitamin B-12)) 500 Mcg Tablet 1,000 Mcg PO DAILY Midodrine HCl 10 Mg Tablet 10 Mg PO BID Allopurinol 100 Mg Tablet 100 Mg PO DAILY Vitamin D3 (Cholecalciferol (Vitamin D3)) 5,000 Unit Capsule 5,000 Unit PO DAILY Premarin (Estrogens Conjugated) 30 Gm Cr VG MOWEFR Rosuvastatin Calcium 20 Mg Tablet 20 Mg PO HS Victoza 2-Luis Enrique (Liraglutide) 0.6 Mg/0.1 Ml Pen.injctr 1.8 Mg SC HS Nitroglycerin 0.4 Mg Tab.subl 0.4 Mg SL UD PRN Clopidogrel (Clopidogrel Bisulfate) 75 Mg Tablet 75 Mg PO DAILY Novolog (Insulin Aspart) 100 Unit/1 Ml Susp PER INSULIN PUMP Assessment/Pt Instructions Take medications as prescribed. Decrease to Torsemide 40 mg daily. Follow up with Dr. Gonzales in about a week. Follow up with Dr. Bauman as scheduled. Discharge Instructions Discharge Diet: No Restrictions Activity as Tolerated: Yes Consultations Cardiology, General surgery Discharge Physical Examination General Appearance: Alert, Oriented X3, Cooperative, No Acute Distress HEENT: Atraumatic, PERRLA, EOMI, Mucous Memb Moist/[place] Respiratory: Clear to Auscultation, Normal Air Movement Cardiovascular: Regular Rate, Normal S1, Normal S2, No Murmurs Abdominal: Normal Bowel Sounds, Soft, No Tenderness Extremities: No Edema, No Tenderness/Swelling Skin: No Rashes, No Significant Lesion Neuro: Normal Speech, Normal Tone Psych/Mental Status: Mental Status NL, Mood NL Allergies: Coded Allergies: sulfamethoxazole (Verified Allergy, Intermediate, 10/05/15) tramadol (Verified Allergy, Intermediate, 10/05/15) trimethoprim (Verified Allergy, Intermediate, 10/05/15) Penicillins (Verified Allergy, Unknown, 10/05/15) codeine (Verified Allergy, Unknown, CAN TAKE MORPHINE, 10/05/15) hydrocodone (Verified Allergy, Unknown, 10/05/15) morphine (Verified Adverse Reaction, Intermediate, Nausea, 06/03/19) amiodarone (Verified Adverse Reaction, Mild, NAUSEA, dizziness, 02/01/16) Discharge Summary Date of Admission Jun 03, 2019 at 12:28 Date of Discharge Discharge Date: Jun 04, 2019 Discharge Time: 09:00 Admission Diagnosis Orthostatic hypotension Discharge Diagnosis Syncope due to orthostatic hypotension (1) Syncope due to orthostatic hypotension Status: Acute (2) Lactic acidosis Status: Resolved (3) Seroma after procedure Status: Acute Clinical Quality Measures DVT/VTE Risk/Contraindication: Risk Factor Score Per Nursin RFS Level Per Nursing on Admit: 4+=Very High CRIS WALDEN MD Jun 04, 2019 09:01 POS
[2019-06-04] MEDS: APIXABAN 2.5 MG (ELIQUIS) TABLET PO SCH (09:14)
--- NOTE | 2019-06-04 13:45 | Progress Note - Surgery ---
[facility] 06/04/19 1345: Subjective Date Seen by a Provider: Jun 04, 2019 Time Seen by a Provider: 09:15 Subjective/Events-last exam Pt is alert and oriented and in no acute distress She is passing gas and urinating without issue Pt denies pain Seroma/Lymphocele is still draining, pt stated she used the sand bag for a couple hours last night. Wound inspections shows no erythema or abnormal discharge. No pain noted on palpation. Pt denies N/V, F/C, SOB and chest pain Review of Systems General: No Chills, No Night Sweats Pulmonary: No Dyspnea, No Cough Cardiovascular: No: Chest Pain, Palpitations Gastrointestinal: No: Nausea, Vomiting, Abdominal Pain Focused Exam Lactate Level 06/03/19 10:50: Lactic Acid Level 2.09*H 06/03/19 13:20: Lactic Acid Level 2.80*H 06/03/19 15:35: Lactic Acid Level 1.73 Objective Exam Vital Signs Date Time Temp Pulse Resp B/P (MAP) Pulse Ox O2 Delivery O2 Flow Rate FiO2 06/04/19 08:00 Room Air 06/04/19 08:00 35.2 71 18 113/70 (84) 96 Room Air 06/04/19 07:00 73 06/04/19 03:56 36.6 69 20 117/69 (85) 96 Room Air 06/04/19 01:00 68 06/03/19 23:44 37.0 67 20 100/49 (66) 98 Room Air 06/03/19 22:40 96 Room Air 06/03/19 20:35 36.4 69 20 117/72 (87) 97 Room Air 06/03/19 20:30 Room Air 06/03/19 19:00 66 06/03/19 16:45 36.1 66 97 21 06/03/19 16:45 97 Room Air 06/03/19 16:00 36.6 64 18 100/61 (74) 100 Room Air 06/03/19 14:32 36.1 66 18 116/73 97 Room Air 06/03/19 14:20 100 Room Air 06/03/19 14:00 66 116/73 (87) 73 102/57 (72) 06/03/19 13:50 35.5 68 16 114/53 (66) 98 Room Air I & O 06/04/19 07:00 Intake Total 3810 ml Balance 3810 ml Capillary Refill : Less Than 3 Seconds General Appearance: No Apparent Distress, WD/WN HEENT: PERRL/EOMI, Pharynx Normal Neck: Normal Inspection, Supple Respiratory: Lungs Clear, Normal Breath Sounds, No Respiratory Distress Cardiovascular: Regular Rate, Rhythm, No Murmur Peripheral Pulses: 2+ Dorsalis Pedis (R), 2+ Left Dors-Pedis (L), 2+ Radial Pulses (R), 2+ Radial Pulses (L) Gastrointestinal: non tender, soft, no organomegaly, other (right groin incision few opening in skin, serous fluid drainaging slightly no evidence of infection) Extremity: Normal Inspection, Non Tender, Pedal Edema (trace) Neurologic/Psychiatric: Alert, Oriented x3, No Motor/Sensory Deficits, Normal Mood/Affect Skin: Other (right groin wound with serous drainage) Lymphatic: No Adenopathy Results Lab Laboratory Tests 06/03/19 15:17: Glucometer 191H 06/03/19 15:35: Lactic Acid Level 1.73 06/03/19 20:37: Glucometer 212H 06/04/19 05:30: White Blood Count 8.6, Red Blood Count 3.89L, Hemoglobin 8.7L, Hematocrit 30L, Mean Corpuscular Volume 77L, Mean Corpuscular Hemoglobin 22L, Mean Corpuscular Hemoglobin Concent 29L, Red Cell Distribution Width 20.3H, Platelet Count 338, Mean Platelet Volume 9.0, Neutrophils (%) (Auto) 61, Lymphocytes (%) (Auto) 24, Monocytes (%) (Auto) 12, Eosinophils (%) (Auto) 3, Basophils (%) (Auto) 0, Neutrophils # (Auto) 5.2, Lymphocytes # (Auto) 2.1, Monocytes # (Auto) 1.0, Eosinophils # (Auto) 0.3, Basophils # (Auto) 0.0, Sodium Level 133L, Potassium Level 3.5L, Chloride Level 97L, Carbon Dioxide Level 24, Anion Gap 12, Blood Urea Nitrogen 25H, Creatinine 1.61H, Estimat Glomerular Filtration Rate 31, BUN/Creatinine Ratio 16, Glucose Level 91, Calcium Level 8.1L, Corrected Calcium 9.0, Total Bilirubin 0.5, Aspartate Amino Transf (AST/SGOT) 22, Alanine Aminotransferase (ALT/SGPT) 12, Alkaline Phosphatase 102, Total Protein 6.5, A lbumin 2.9L, Procalcitonin 0.10H 06/04/19 05:33: Glucometer 102 Microbiology 06/03/19 Influenza Types A,B Antigen (CHERRY) - Final, Complete 06/03/19 Urine Culture - Final, Complete NO GROWTH 06/03/19 Gram Stain - Final, Resulted 06/03/19 Wound Culture, Resulted Pending Assessment/Plan Assessment/Plan Assessment/Plan Syncope, orthostatic hypotension, lactic acidosis, possible pneumonia, seroma/lymphocele, HTN, AFIB, CAD, Chronic CHF - right groin seroma/lymphocele is still draining but does not look infected. Must continue to keep dry and clean and continue to use sand bag. - follow up with her at [facility] who performed TAVR Clinical Quality Measures DVT/VTE Risk/Contraindication: Risk Factor Score Per Nursin RFS Level Per Nursing on Admit: 4+=Very High ZOLTAN RENO DO 06/04/19 1426: Subjective Subjective/Events-last exam Patient only used sandbag to right groin for short period of time. She still is having serous appearing drainage. Not have any other complaints at this time. Denie n/v fever sweats chills shortness of breath or chest pain. Objective Exam General Appearance: No Apparent Distress, WD/WN HEENT: PERRL/EOMI Neck: Normal Inspection Respiratory: Chest Non Tender, No Accessory Muscle Use, No Respiratory Distress Cardiovascular: Regular Rate, Rhythm Gastrointestinal: non tender, soft, other (right groin incision 2 opening in skin, serous fluid drainaging slightly no evidence of infection) Extremity: Normal Inspection, Non Tender Neurologic/Psychiatric: Alert, Oriented x3, No Motor/Sensory Deficits, Normal Mood/Affect Skin: Normal Color, Other (right groin wound with serous drainage) Lymphatic: No Adenopathy Assessment/Plan Assessment/Plan Assessment/Plan Syncope, orthostatic hypotension, lactic acidosis, possible pneumonia, seroma/lymphocele, HTN, AFIB, CAD, Chronic CHF instructed to try and keep continuous pressure on groin to build up pressure to try and get lymphatic leak to seal, fluid does not have infected appearance so no need to evacuate the entire area, if does not seal may need to open area and pack daily. Supervisory-Addendum Brief Verification & Attestation Participated in pt care: history, MDM, physical Personally performed: exam, history, MDM, supervision of care Care discussed with: Medical Student Procedures: n/a Results interpretation: Verified all documentation Verification and Attestation of Medical Student E/M Service A medical student performed and documented this service in my presence. I r eviewed and verified all information documented by the medical student and made modifications to such information, when appropriate. I personally performed the physical exam and medical decision making. Zoltan Reno, Jun 04, 2019,14:26 [facility] Jun 04, 2019 13:45 ZOLTAN SALGADO DO Jun 04, 2019 14:26 POS
[2019-06-04] MEDS ORDERED: VANCOMYCIN 1 GM/NS 250 ML IVPB IV SCH ×2 (14:00)
[2019-06-05] MEDS ORDERED: TROUGH ORDER-PHARMACY XX NR (13:00)
== END 2019-06-04 08:55 | disposition home or self-care (01) ==
LOC: EDUNIT# 10:24 → ER 10:25 → 4TH 12:28 → UNDOADMOB 12:28 → 4TH 14:12 → UNDODISOB 06-04 12:00
PROVIDERS: ADMIT Internal Medicine; ATTEND Internal Medicine
DX: I95.1 Orthostatic hypotension (principal); E78.2 Mixed hyperlipidemia; I25.10 Atherosclerotic heart disease of native coronary artery without angina pectoris; I12.9 Hypertensive chronic kidney disease with stage 1 through stage 4 chronic kidney disease, or unspecified chronic kidney disease; E11.22 Type 2 diabetes mellitus with diabetic chronic kidney disease; N18.9 Chronic kidney disease, unspecified; G47.33 Obstructive sleep apnea (adult) (pediatric); I48.91 Unspecified atrial fibrillation; E78.00 Pure hypercholesterolemia, unspecified; I73.9 Peripheral vascular disease, unspecified; Z95.2 Presence of prosthetic heart valve; Z86.73 Personal history of transient ischemic attack (TIA), and cerebral infarction without residual deficits; Z79.01 Long term (current) use of anticoagulants; Z79.02 Long term (current) use of antithrombotics/antiplatelets; Z79.899 Other long term (current) drug therapy; Z79.4 Long term (current) use of insulin; Z88.2 Allergy status to sulfonamides; Z88.1 Allergy status to other antibiotic agents; Z88.5 Allergy status to narcotic agent; Z88.6 Allergy status to analgesic agent; Z88.8 Allergy status to other drugs, medicaments and biological substances; Z90.710 Acquired absence of both cervix and uterus; Z90.721 Acquired absence of ovaries, unilateral; Z90.49 Acquired absence of other specified parts of digestive tract; Z85.3 Personal history of malignant neoplasm of breast
CPT/HCPCS: 36415; 51701; 70450; 80053; 81000; 82962; 83605; 83880; 84145; 84484; 85025; 85610; 85730; 87040; 87070; 87077; 87088; 87205; 87804; 93005; 94664; 94760; 96361; 96365; 96375; G0378

== ENCOUNTER → 2019-06-03 | Outpatient (CLI) | payer MEDICARE, MEDICAID ==
[~2019-06-03] MED LIST changes: +ACET325T49 PO; +DOCU-143 PO; +POTA-51 PO; +TORS20TA3 PO
--- NOTE | 2019-06-03 10:35 | Diagnostic Imaging Report ---
PROCEDURE: US Abdomen, limited. TECHNIQUE: Multiple realtime grayscale images were obtained over the abdomen in various projections. INDICATION: Abdominal wall seroma. Sonographic interrogation of the right lower quadrant region of interest demonstrates septated fluid collection measuring at least 10.5 x 3.1 x 3.8 cm. There is a portion that does extend towards the midline which is elongated measuring 10.4 x 1.8 x 1.1 cm. No internal vascularity is present. IMPRESSION: Complex septated collection in the right lower quadrant extending towards the midline, as described. This may represent seroma or lymphocele. Sterility of the fluid collection is indeterminate. Dictated by: Dictated on workstation # [id number]
== END ==
LOC: RAD 09:04
PROVIDERS: ATTEND Surgery
DX: S30.1XXA Contusion of abdominal wall, initial encounter (principal); X58.XXXA Exposure to other specified factors, initial encounter
CPT/HCPCS: 76705

== ENCOUNTER → 2019-06-03 | Outpatient (CLI) | payer MEDICARE, MEDICAID ==
--- NOTE | 2019-06-03 11:42 | Diagnostic Imaging Report ---
INDICATION: Pneumonia. PA and lateral chest. There are postoperative changes from aortic valve placement. There is no infiltrate present in the right lower lung. Patient has a dual-chamber pacemaker. IMPRESSION: Postsurgical changes in the chest. Right lower lobe infiltrate unchanged since 05/28/2019. Dictated by: Dictated on workstation # [id number]
== END ==
LOC: RAD 09:08
PROVIDERS: ATTEND Internal Medicine
DX: J18.9 Pneumonia, unspecified organism (principal); R91.8 Other nonspecific abnormal finding of lung field; Z98.890 Other specified postprocedural states
CPT/HCPCS: 71046

== ENCOUNTER → 2019-06-23 | Outpatient (CLI) | payer MEDICARE, MEDICAID ==
[~2019-06-23] MED LIST changes: +ACET325T49 PO; -DIAZ5TAB3 PO; +DIAZ5TAB49 PO; +DIPH25TA65 PO; +DOCU-143 PO; +FEXO180T84 PO; +HYDR-700 PO; -LOPE-145 PO; +LOPE-175 PO; -METO-387 PO; +MTP25TSR PO; +POTA-51 PO; +TORS20TA3 PO; +TR1C15 TP
--- NOTE | 2019-06-23 16:58 | Diagnostic Imaging Report ---
INDICATION: Pneumonia, follow-up. PA and lateral chest obtained at 03:32 p.m. and is compared to 06/03/2019. Pacemaker is unchanged. Prosthetic aortic valve is unchanged. The heart is mildly enlarged. The left lung remains clear. There is partial improvement in the right basilar infiltrate compared to the prior study with some residual scarring or residual infiltrate present. There is no significant pleural fluid. IMPRESSION: Partial improvement in right basilar infiltrate with some residual scarring or residual infiltrate present. The left lung is clear. Dictated by: Dictated on workstation # [id number]
== END ==
LOC: RAD 15:18
PROVIDERS: ATTEND Internal Medicine
DX: J18.9 Pneumonia, unspecified organism (principal); R91.8 Other nonspecific abnormal finding of lung field
CPT/HCPCS: 71046

== ENCOUNTER 2019-07-06 17:03 | Outpatient (CLI) | payer MEDICARE, MEDICAID ==
[~2019-07-06] VITALS: Ht 167.7 cm; Wt 102.7 kg
[~2019-07-06 17:03] MED LIST changes: +DIAZ5TAB3 PO; -DIAZ5TAB49 PO; -DIPH25TA65 PO; -FEXO180T84 PO; -HYDR-700 PO; +LOPE-145 PO; -LOPE-175 PO; +METO-387 PO; -MTP25TSR PO; -TR1C15 TP
[2019-07-06 17:15] VITALS: BP 92/71
[2019-07-06] MEDS ORDERED: NS IV 1000 ML 1,000 ML IV ONE (17:30)
== END 2019-07-06 19:45 | disposition home or self-care (01) ==
LOC: SDC 17:03
PROVIDERS: ATTEND Physician Assistant
DX: E87.1 Hypo-osmolality and hyponatremia (principal); E86.9 Volume depletion, unspecified
CPT/HCPCS: 96360; 96361

== ENCOUNTER → 2019-07-12 | Outpatient (CLI) | payer MEDICARE, MEDICAID ==
[2019-07-12 11:08] LABS: ABSOLUTE RETIC # 96 10e9/L (24-90); BASOPHILS # (AUTO) 0.1 10^3/uL (0.0-0.1); BASOPHILS % (AUTO) 1 % (0-10); EOSINOPHILS # (AUTO) 0.3 10^3/uL (0.0-0.3); EOSINOPHILS % (AUTO) 4 % (0-10); HEMATOCRIT 32 % (35-52); HEMOGLOBIN 9.1 G/DL (11.5-16.0); LYMPHOCYTES # (AUTO) 1.8 X 10^3 (1.0-4.0); LYMPHOCYTES % (AUTO) 25 % (12-44); MEAN CORPUSCULAR HEMOGLOBIN 20 PG (25-34); MEAN CORPUSCULAR HGB CONC 29 G/DL (32-36); MEAN CORPUSCULAR VOLUME 68 FL (80-99); MEAN PLATELET VOLUME 9.3 FL (7.4-10.4); MONOCYTES # (AUTO) 0.9 X 10^3 (0.0-1.0); MONOCYTES % (AUTO) 13 % (0-12); NEUTROPHILS # (AUTO) 4.2 X 10^3 (1.8-7.8); NEUTROPHILS % (AUTO) 58 % (42-75); PLATELET COUNT 186 10^3/uL (130-400); RED CELL DISTRIBUTION WIDTH 21.2 % (10.0-14.5); RETICULOCYTE % 2.06 % (0.50-2.40); WHITE BLOOD COUNT 7.3 10^3/uL (4.3-11.0)
[2019-07-12 12:32] LABS: BASOPHILS % (MANUAL) 2 %; EOSINOPHILS % (MANUAL) 1 %; HYPOCHROMASIA MARKED; LYMPHOCYTES % (MANUAL) 26 %; MONOCYTES % (MANUAL) 9 %; NEUTROPHILS % (MANUAL) 62 %; NUCLEATED RED BLOOD CELLS 1
[2019-07-12 12:33] LABS: ANISOCYTOSIS MARKED; MICROCYTOSIS MARKED; POIKILOCYTOSIS SLIGHT; SPHEROCYTES SLIGHT
== END ==
LOC: LAB 10:56
PROVIDERS: ATTEND Internal Medicine
DX: D64.9 Anemia, unspecified (principal)
CPT/HCPCS: 36415; 85007; 85027; 85045

== ENCOUNTER → 2019-07-19 | Outpatient (CLI) | payer MEDICARE, MEDICAID ==
[2019-07-19 13:29] LABS: ABSOLUTE RETIC # 73 10e9/L (24-90); BASOPHILS % (AUTO) 1 % (0-10); EOSINOPHILS # (AUTO) 0.2 10^3/uL (0.0-0.3); EOSINOPHILS % (AUTO) 4 % (0-10); HEMATOCRIT 32 % (35-52); HEMOGLOBIN 9.2 G/DL (11.5-16.0); LYMPHOCYTES # (AUTO) 1.7 X 10^3 (1.0-4.0); LYMPHOCYTES % (AUTO) 25 % (12-44); MEAN CORPUSCULAR HEMOGLOBIN 19 PG (25-34); MEAN CORPUSCULAR HGB CONC 29 G/DL (32-36); MEAN CORPUSCULAR VOLUME 65 FL (80-99); MEAN PLATELET VOLUME 9.7 FL (7.4-10.4); MONOCYTES % (AUTO) 15 % (0-12); NEUTROPHILS # (AUTO) 3.8 X 10^3 (1.8-7.8); NEUTROPHILS % (AUTO) 56 % (42-75); PLATELET COUNT 188 10^3/uL (130-400); RED CELL DISTRIBUTION WIDTH 21.8 % (10.0-14.5); RETICULOCYTE % 1.46 % (0.50-2.40); WHITE BLOOD COUNT 6.7 10^3/uL (4.3-11.0)
[2019-07-19 14:17] LABS: ANISOCYTOSIS MARKED; BASOPHILS % (MANUAL) 1 %; EOSINOPHILS % (MANUAL) 6 %; HYPOCHROMASIA MODERATE; LYMPHOCYTES % (MANUAL) 24 %; MONOCYTES % (MANUAL) 10 %; NEUTROPHILS % (MANUAL) 59 %; NUCLEATED RED BLOOD CELLS 1; POIKILOCYTOSIS SLIGHT; POLYCHROMASIA SLIGHT
[2019-07-19 14:18] LABS: MICROCYTOSIS MODERATE; TOXIC GRANULATION/VACUOLAZATIO 1+
== END ==
LOC: LAB 12:40
PROVIDERS: ATTEND Nurse Practitioner
DX: D64.9 Anemia, unspecified (principal)
CPT/HCPCS: 85007; 85027; 85045

== ENCOUNTER → 2019-07-21 | Outpatient (CLI) | payer MEDICARE, MEDICAID ==
[~2019-07-21] MED LIST changes: +DIPH25TA65 PO; +FEXO180T84 PO; +HYDR-700 PO; +TR1C15 TP
== END ==
LOC: LAB 12:39
PROVIDERS: ATTEND Internal Medicine
DX: L98.9 Disorder of the skin and subcutaneous tissue, unspecified (principal)
CPT/HCPCS: 87220

== ENCOUNTER 2019-07-23 15:31 | Inpatient (IN) | payer MEDICARE, MEDICAID ==
[~2019-07-23] VITALS: Ht 167.7 cm; Wt 100.4 kg
[~2019-07-23 15:31] MED LIST changes: -DIPH25TA65 PO; -FEXO180T84 PO; -HYDR-700 PO; -TR1C15 TP
[2019-07-23 15:35] VITALS: BP 171/77
[2019-07-23 16:00] LABS: BASOPHILS % (AUTO) 1 % (0-10); EOSINOPHILS # (AUTO) 0.3 10^3/uL (0.0-0.3); EOSINOPHILS % (AUTO) 4 % (0-10); HEMATOCRIT 31 % (35-52); HEMOGLOBIN 8.9 G/DL (11.5-16.0); LYMPHOCYTES # (AUTO) 2.5 X 10^3 (1.0-4.0); LYMPHOCYTES % (AUTO) 39 % (12-44); MEAN CORPUSCULAR HEMOGLOBIN 18 PG (25-34); MEAN CORPUSCULAR HGB CONC 29 G/DL (32-36); MEAN CORPUSCULAR VOLUME 63 FL (80-99); MEAN PLATELET VOLUME 9.9 FL (7.4-10.4); MONOCYTES # (AUTO) 0.9 X 10^3 (0.0-1.0); MONOCYTES % (AUTO) 14 % (0-12); NEUTROPHILS # (AUTO) 2.7 X 10^3 (1.8-7.8); NEUTROPHILS % (AUTO) 43 % (42-75); PLATELET COUNT 194 10^3/uL (130-400); RED CELL DISTRIBUTION WIDTH 22.2 % (10.0-14.5); WHITE BLOOD COUNT 6.4 10^3/uL (4.3-11.0)
[2019-07-23] MEDS ORDERED: NS IV 1000 ML 1,000 ML IV SCH (16:00)
--- NOTE | 2019-07-23 16:01 | ED Neurological Problem ---
General Chief Complaint: Abdominal/GI Problems Stated Complaint: N/V Nursing Triage Note: pt presents to ed with complaints of n/v starting around 1500. pt also reports sudden dizziness at that time as well. Nursing Sepsis Screen: No Definite Risk Source: patient, EMS Exam Limitations: no limitations History of Present Illness Date Seen by Provider: Jul 23, 2019 Time Seen by Provider: 15:57 Initial Comments This 79-year-old white female presents with a complaint of sudden dizziness with associated nausea and vomiting that began 30 minutes prior to presentation emergency department. Patient been sitting on a couch when the dizziness began. Patient denies associated headache, stiff neck, photophobia, fever or chill, chest pain or palpitations, shortness of breath, or lateralizing or localizing neurologic complaints. Allergies and Home Medications Allergies Coded Allergies: sulfamethoxazole (Verified Allergy, Intermediate, 10/05/15) tramadol (Verified Allergy, Intermediate, 10/05/15) trimethoprim (Verified Allergy, Intermediate, 10/05/15) Penicillins (Verified Allergy, Unknown, 10/05/15) codeine (Verified Allergy, Unknown, CAN TAKE MORPHINE, 10/05/15) hydrocodone (Verified Allergy, Unknown, 10/05/15) morphine (Verified Adverse Reaction, Intermediate, Nausea, 06/03/19) amiodarone (Verified Adverse Reaction, Mild, NAUSEA, dizziness, 02/01/16) Home Medications Acetaminophen 325 Mg Tablet, 650 MG PO Q4H PRN for PAIN-MILD (1-4), (Reported) Allopurinol 100 Mg Tablet, 100 MG PO DAILY, (Reported) Apixaban 5 Mg Tablet, 2.5 MG PO BID, (Reported) TAKES 1/2 (5MG) TABLET Cholecalciferol (Vitamin D3) 5,000 Unit Capsule, 5,000 UNIT PO DAILY, (Reported) Clopidogrel Bisulfate 75 Mg Tablet, 75 MG PO DAILY, (Reported) Cyanocobalamin (Vitamin B-12) 500 Mcg Tablet, 1,000 MCG PO DAILY, (Reported) Docusate Sodium 100 Mg Capsule, 100 MG PO DAILY, (Reported) Estrogens Conjugated 30 Gm Cr, VG MoWeFr, (Reported) Insulin Aspart 100 Unit/1 Ml Susp, PER INSULIN PUMP, (Reported) Liraglutide 0.6 Mg/0.1 Ml Pen.injctr, 1.8 MG SC HS, (Reported) Midodrine HCl 10 Mg Tablet, 10 MG PO BID, (Reported) Nitroglycerin 0.4 Mg Tab.subl, 0.4 MG SL UD PRN for CHEST PAIN, (Reported) Ondansetron HCl 4 Mg Tab, 4 MG PO Q6H PRN for NAUSEA/VOMITING-1ST LINE, (Reported) Pantoprazole Sodium 40 Mg Tablet.dr, 40 MG PO DAILY, (Reported) Potassium Chloride 20 Meq Tablet.er, 40 MEQ PO DAILY, (Reported) Rosuvastatin Calcium 20 Mg Tablet, 20 MG PO HS, (Reported) Torsemide 20 Mg Tablet, 40 MG PO DAILY Prescribed by: CRIS WALDEN on 06/04/19 0180 Patient Home Medication List Home Medication List Reviewed: Yes Review of Systems Review of Systems Constitutional: No chills; dizziness; No fever Eyes: Denies Blurred Vision, Denies Photophobia Ears, Nose, Mouth, Throat: denies ear pain, denies epistaxis Respiratory: No cough, No short of breath Cardiovascular: No chest pain, No palpitations Gastrointestinal: No abdominal pain, No diarrhea; nausea, vomiting Genitourinary: No dysuria, No frequency Musculoskeletal: no symptoms reported Skin: no symptoms reported Psychiatric/Neurological: Denies Cognitive Dysfunction, Denies Headache Endocrine: No Symptoms Reported Hematologic/Lymphatic: No Symptoms Reported Past Qfephtb-Ldzluo-Zubueg Hx Past Med/Social Hx: Reviewed Nursing Past Med/Soc Hx Patient Social History Alcohol Use: Denies Use Recreational Drug Use: No Smoking Status: Never a Smoker 2nd Hand Smoke Exposure: No Recent Foreign Travel: No Contact w/Someone Who Travel: No Recent Infectious Disease Expo: No Recent Hopitalizations: No Immunizations Up To Date Tetanus Booster (TDap): Less than 5yrs Date of Pneumonia Vaccine: Aug 02, 2018 Date of Influenza Vaccine: Apr 19, 2019 Seasonal Allergies Seasonal Allergies: No Past Medical History Surgeries: Yes (PACEMAKER, CAROTID ARTERY, HEART CATH-STENTS /ANGIOPLASTY, TAVR ) Cardiac, Coronary Stent, Gallbladder, Hysterectomy, Oophorectomy, Orthopedic, Pacemaker, Vascular Surgery Respiratory: Yes Sleep Apnea Currently Using CPAP: No Currently Using BIPAP: No Cardiac: Yes (PACEMAKER, CHF, STENTS X12, AORTIC VALVE REPLACED, CHEST TUBES) Atrial Fibrillation, Chronic Edema/Swelling, Coronary Artery Disease, Heart Attack, Heart Murmur, High Cholesterol, Hypertension, Peripheral Vascular, Rheumatic Fever Neurological: Yes (TIA AFTER STENT IN JUNE) Neuropathy, TIA Reproductive Disorders: 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 ) Endocrine: Yes (INSULIN PUMP, 3 THYROID NODULES) Diabetes, Insulin dep Cataract Loss of Vision: Left Hearing Impairment: Deaf Cancer: Yes (BREAST CA 2010) Breast Did You Recieve Any Treatments: Yes What Type of Treatment Did You: Radiation Psychosocial: No Integumentary: Yes (DIABETIC FOOT ULCER ON LEFT--PT STATES IS NOW HEALED. ) Blood Disorders: No Adverse Reaction/Blood Tranf: No Family Medical History Cardiovascular disease 19 FATHER 19 MOTHER G8 BROTHER G8 SISTER G8 SISTER G8 SISTER Completed stroke 19 FATHER G8 SISTER Diabetes mellitus 19 FATHER G8 SISTER G8 SISTER FH: cancer G8 SISTER G8 SISTER Myocardial infarction G8 BROTHER (65 YEARS OLD) No Pertinent Family Hx Physical Exam Vital Signs Vital Signs - First Documented Capillary Refill : Less Than 3 Seconds Height, Weight, BMI Height: 5'6.00" Weight: 223lbs. 0.5oz. [id number]; 25.00 BMI Method:Stated General Appearance: WD/WN, no apparent distress Neck: non-tender, supple Respiratory: chest non-tender, lungs clear Cardiovascular: regular rate, rhythm, no murmur Gastrointestinal: normal bowel sounds, non tender, soft Back: normal inspection Extremities: normal range of motion, non-tender, normal inspection Neurologic/Psychiatric: no motor/sensory deficits, alert, other (the patient complains that she is not mentally as sharp as she normally has. He states that the onset of this present illness was severe dizziness which causes her to be nauseated and have vomiting.) Crainal Nerves: other (patient's speech is slow but not slurred) Skin: normal color, warm/dry Stroke NIH Stroke Scale Assessment Select: Initial Level of Consciousness: 0=Alert (0), LOC Commands: 0=Performs both tasks (0), Gaze: Normal (0), Facial Movement (Facial Paresis): 0=Normal symmetrical mnt (0), Motor Function-Arms Right: 0=No drift (0), Motor Function-Arms Left: 0=No drift (0), Motor Function-Legs Right: 0=No drift (0), Motor Function-Legs Left: 0=No drift (0), Limb Ataxia: 0=Absent (0), Sensory: 0=Normal:no loss (0), Best Language: 0=No aphasia (0), Dysarthria: 0=Normal (0), Extinction & Inattention: 0=No abnormality (0), Total: 0 Stroke Thrombolytic Exclusion Age 18 or Over: Yes Acute intenal hemorrhage: No History of CVA: Yes Uncontrolled Coagulation Defec: No Intracranial Hemorrhage: No Severe Hypertension: No GI or Bleed: No Subarachnoid Hemorrhage: No Intracranial Neoplasm/Aneurysm: No Oral Anticoagulants: No Surgery or Trauma: No Puncture of Non-Compressible V: No Recent CPR: No Diabetic Hemorrhagic Retinopat: No Organ Biopsy: No Recent Obstetric Delivery: No Glucose: No Significant Hepatic Dysfunctio: No NIH Stoke Scale >22: No Bacterial Endocarditis: No Pericarditis: No Improving Symptoms: Yes Platelets: No Progress/Results/Core Measures Results/Orders Lab Results Laboratory Tests Test 07/23/19 15:36 07/23/19 16:34 07/23/19 17:17 Range/Units White Blood Count 6.4 4.3-11.0 10^3/uL Red Blood Count 4.87 4.35-5.85 10^6/uL Hemoglobin 8.9 L 11.5-16.0 G/DL Hematocrit 31 L 35-52 % Mean Corpuscular Volume 63 L 80-99 FL Mean Corpuscular Hemoglobin 18 L 25-34 PG Mean Corpuscular Hemoglobin Concent 29 L 32-36 G/DL Red Cell Distribution Width 22.2 H 10.0-14.5 % Platelet Count 194 130-400 10^3/uL Mean Platelet Volume 9.9 7.4-10.4 FL Neutrophils (%) (Auto) 43 42-75 % Lymphocytes (%) (Auto) 39 12-44 % Monocytes (%) (Auto) 14 H 0-12 % Eosinophils (%) (Auto) 4 0-10 % Basophils (%) (Auto) 1 0-10 % Neutrophils # (Auto) 2.7 1.8-7.8 X 10^3 Lymphocytes # (Auto) 2.5 1.0-4.0 X 10^3 Monocytes # (Auto) 0.9 0.0-1.0 X 10^3 Eosinophils # (Auto) 0.3 0.0-0.3 10^3/uL Basophils # (Auto) 0.0 0.0-0.1 10^3/uL Prothrombin Time 25.9 H 12.2-14.7 SEC INR Comment 2.3 H 0.8-1.4 Activated Partial Thromboplast Time 40 H 24-35 SEC D-Dimer 0.95 H 0.00-0.49 UG/ML Sodium Level 136 135-145 MMOL/L Potassium Level 4.1 3.6-5.0 MMOL/L Chloride Level 102 98-107 MMOL/L Carbon Dioxide Level 22 21-32 MMOL/L Anion Gap 12 5-14 MMOL/L Blood Urea Nitrogen 19 H 7-18 MG/DL Creatinine 2.22 H 0.60-1.30 MG/DL Estimat Glomerular Filtration Rate 21 BUN/Creatinine Ratio 9 Glucose Level 169 H 70-105 MG/DL Calcium Level 8.8 8.5-10.1 MG/DL Corrected Calcium 9.2 8.5-10.1 MG/DL Total Bilirubin 0.6 0.1-1.0 MG/DL Aspartate Amino Transf (AST/SGOT) 19 5-34 U/L Alanine Aminotransferase (ALT/SGPT) 10 0-55 U/L Alkaline Phosphatase 119 40-136 U/L Troponin I < 0.028 <0.028 NG/ML Total Protein 7.0 6.4-8.2 GM/DL Albumin 3.5 3.2-4.5 GM/DL Glucometer 107 70-110 MG/DL My Orders Orders - AMADEO PRATT MD Cbc With Automated Diff (07/23/19 15:47) Protime With Inr (07/23/19 15:47) Partial Thromboplastin Time (07/23/19 15:47) Comprehensive Metabolic Panel (07/23/19 15:47) Fibrin Degradation Products (07/23/19 15:47) Troponin I (07/23/19 15:47) Ua Culture If Indicated (07/23/19 15:47) Chest 1 View, Ap/Pa Only (07/23/19 15:47) Ekg Tracing (07/23/19 15:47) Nothing By Mouth (07/24/19 Breakfast) Accucheck Stat ONCE (07/23/19 15:47) Ed Iv/Invasive Line Start (07/23/19 15:47) Ed Iv/Invasive Line Start (07/23/19 15:47) Vital Signs Stroke Patient Q15M (07/23/19 15:47) Ct Head Wo-R/O Stroke (07/23/19 15:47) O2 (07/23/19 15:47) Intake & Output 06,14,22 (07/23/19 15:47) Monitor-Rhythm Ecg Trace Only (07/23/19 15:47) Dysphagia Screening Tool (07/23/19 15:47) Post Thrombolytic Adminstratio (07/23/19 15:47) Lipid Panel (07/24/19 06:00) Ns Iv 1000 Ml (Sodium Chloride 0.9%) (07/23/19 16:00) Ondansetron Injection (Zofran Injectio (07/23/19 16:45) Diazepam Tablet (Valium Tablet) (07/23/19 17:30) Medications Given in ED Current Medications Medications Dose Ordered Sig/Tresa Route Start Time Stop Time Status Last Admin Dose Admin Ondansetron HCl 4 mg ONCE ONCE IVP 07/23/19 16:45 07/23/19 16:46 DC 07/23/19 16:48 4 MG Vital Signs/I&O 07/23/19 07/23/19 15:35 15:35 Temp 36.1 Pulse 73 73 Resp 17 17 B/P (MAP) 171/77 (108) 171/77 Pulse Ox 94 94 Blood Pressure Mean: 108 Progress Progress Note : Time: 17:[address] of the head was unremarkable other than age related changes. Patient's laboratory evaluation and EKG were unremarkable. The patient was in a normal sinus rhythm. Patient's nausea was markedly improved with Zofran. Given the history of acute onset of dizziness at home 30 minutes prior to presentation without other lateralizing or localizing findings I believe the patient may be suffering acute labyrinthitis. Dr. Morris was kind enough to admit the patient. Orders written and patient was transferred to the floor. Departure Communication (Admissions) Time/Spoke to Admitting Phy: 17:31 Dr. Morris Impression Primary Impression: Labyrinthitis Qualified Codes: H83.09 - Labyrinthitis, unspecified ear Disposition: ADMITTED INPATIENT Condition: Improved Admissions Decision to Admit Reason: Admit from ER (General) Decision to Admit/Date: Jul 23, 2019 Time/Decision to Admit Time: 17:31 Departure-Patient Inst. Referrals: JOE ROBERTSON MD (PCP/Family) Primary Care Physician AMADEO PRATT MD Jul 23, 2019 16:01
[2019-07-23 16:09] LABS: FIBRIN DEGRADATION PRODUCTS 0.95 UG/ML (0.00-0.49); INR 2.3 (0.8-1.4); PROTHROMBIN TIME PATIENT 25.9 SEC (12.2-14.7)
[2019-07-23 16:12] LABS: ALANINE AMINOTRANSFERASE 10 U/L (0-55); ALBUMIN 3.5 GM/DL (3.2-4.5); ALKALINE PHOSPHATASE 119 U/L (40-136); BILIRUBIN,TOTAL 0.6 MG/DL (0.1-1.0); BUN/CREATININE RATIO 9; CALCIUM 8.8 MG/DL (8.5-10.1); CARBON DIOXIDE 22 MMOL/L (21-32); CHLORIDE 102 MMOL/L (98-107); CREATININE SERUM 2.22 MG/DL (0.60-1.30); GFR ESTIMATED 21; GLUCOSE 169 MG/DL (70-105); POTASSIUM 4.1 MMOL/L (3.6-5.0); SODIUM 136 MMOL/L (135-145)
[2019-07-23 16:42] LABS: BILIRUBIN,URINE NEGATIVE (NEGATIVE); CLARITY,URINE SL CLOUDY; COLOR,URINE YELLOW; GLUCOSE, URINE (UA) NEGATIVE (NEGATIVE); KETONES,URINE NEGATIVE (NEGATIVE); LEUKOCYTE ESTERASE ,URINE 2+ (NEGATIVE); NITRITE,URINE POSITIVE (NEGATIVE); PROTEIN,URINE NEGATIVE (NEGATIVE)
[2019-07-23] MEDS ORDERED: ONDANSETRON 4 MG/2 ML (SDV) Z0FRAN IVP ONE (16:45)
--- NOTE | 2019-07-23 16:55 | Diagnostic Imaging Report ---
PROCEDURE: CT head wo r/o stroke. TECHNIQUE: Multiple contiguous axial images were obtained through the brain without the use of intravenous contrast. Auto Exposure Controls were utilized during the CT exam to meet ALARA standards for radiation dose reduction. INDICATION: Stroke, nausea, vomiting. COMPARISON: June 03, 2019 FINDINGS: Age-related volume loss. No intracranial hemorrhage. No intracranial mass, mass effect, midline shift, herniation, hydrocephalus, or extra-axial fluid collection. Periventricular and subcortical white matter hypodensities are again identified, most consistent with mild chronic small vessel white matter ischemic disease. No CT evidence of an acute ischemic infarction. Mild scattered vascular calcifications. Minimally visualized orbits are unremarkable. The visualized paranasal sinuses are clear. The calvarium and extracalvarial soft tissues are unremarkable. IMPRESSION: Similar-appearing examination demonstrating age-related volume loss and mild background chronic small vessel white matter ischemic disease without superimposed acute intracranial abnormality. Dictated by: Dictated on workstation # [id number]
--- NOTE | 2019-07-23 17:20 | Diagnostic Imaging Report ---
INDICATION: Nausea, vomiting, dizziness. TECHNIQUE: Single view chest, 5:07 p.m. CORRELATION STUDY: 06/23/2019. FINDINGS: Left-sided dual-chamber pacemaker as well as TAVR remain in place. Heart size is generally stable. Vasculature is increased slightly since prior study. Increasing parenchymal density, particularly at the right lung base along with likely small right pleural effusion. IMPRESSION: 1. Stable heart size. Vasculature is slightly increased. 2. Increasing density at the right lung base may be reflective of asymmetric edema versus infiltrate or even aspiration. Followup imaging, if clinically warranted. Dictated by: Dictated on workstation # [id number]
[2019-07-23] MEDS ORDERED: DIAZEPAM 5 MG (VALIUM) TABLET PO ONE (17:30)
[2019-07-23 17:31] LABS: BACTERIA,URINE MODERATE /HPF; WBC,URINE 25-50 /HPF
[2019-07-23] MEDS ORDERED: diphenhydrAMINE 50 MG/ML INJ (BENADRYL) IVP ONE (17:45)
--- NOTE | 2019-07-23 18:38 | NUR ---
Pt arrived to floor via stretcher with staff and granddaughter. Pt denies needs at this time, pt oriented to room and call light, bed check on, will continue to monitor
[2019-07-23 18:58] VITALS: BP 142/61
[2019-07-23] MEDS ORDERED: BENZONATATE 100 MG (TESSALON) CAPSULE PO PRN (19:45)
[2019-07-23] MEDS ORDERED: ANTACID SUSP 30 ML UDC (MYLANTA) PO PRN (19:45)
[2019-07-23] MEDS ORDERED: MILK OF MAGNESIA 400 MG/5 ML 30 ML UDC PO PRN (19:45)
[2019-07-23] MEDS ORDERED: ACETAMINOPHEN 325 MG TABLET PO PRN (19:45)
[2019-07-23] MEDS: NS IV 1000 ML 1,000 ML IV SCH (19:57)
[2019-07-23 20:00] VITALS: BP 134/66
--- NOTE | 2019-07-23 20:57 | NUR ---
I WENT TO PT ROOM AND FOUND OUT THAT IS EATEN A HAMBURGER THAT GRANDDAUGHTER HAS BROUGHT FROM HOME. PT HAS A CLEAR LIQUID DIET. EDUCATED PT ABOUT DIET. EDUCATION NOT RECEIVED. PT IS BEEN RUDE AND CONTINUO EATEN HAMBURGER. DR WARD NOTIFIED ABOUT SITUATION ANEW ORDER RECEIVED.
[2019-07-23] MEDS: hydrOXYzine (ATARAX) 10 MG TAB PO PRN (21:24)
[2019-07-23] MEDS: ONDANSETRON 4 MG/2 ML (SDV) Z0FRAN IV PRN (23:11)
[2019-07-24 00:45] VITALS: BP 122/67
[2019-07-24] MEDS: MELATONIN 3 MG TABLET PO PRN (00:55)
[2019-07-24] MEDS ORDERED: TORS100T4 PO (02:14)
[2019-07-24] MEDS ORDERED: METO-387 PO (02:14)
[2019-07-24 04:00] VITALS: BP 131/67
[2019-07-24 06:28] LABS: BASOPHILS % (AUTO) 1 % (0-10); EOSINOPHILS # (AUTO) 0.2 10^3/uL (0.0-0.3); EOSINOPHILS % (AUTO) 4 % (0-10); HEMATOCRIT 30 % (35-52); HEMOGLOBIN 8.6 G/DL (11.5-16.0); LYMPHOCYTES # (AUTO) 1.6 X 10^3 (1.0-4.0); LYMPHOCYTES % (AUTO) 30 % (12-44); MEAN CORPUSCULAR HEMOGLOBIN 18 PG (25-34); MEAN CORPUSCULAR HGB CONC 29 G/DL (32-36); MEAN CORPUSCULAR VOLUME 64 FL (80-99); MEAN PLATELET VOLUME 9.5 FL (7.4-10.4); MONOCYTES # (AUTO) 0.9 X 10^3 (0.0-1.0); MONOCYTES % (AUTO) 16 % (0-12); NEUTROPHILS # (AUTO) 2.5 X 10^3 (1.8-7.8); NEUTROPHILS % (AUTO) 49 % (42-75); PLATELET COUNT 150 10^3/uL (130-400); RED CELL DISTRIBUTION WIDTH 21.6 % (10.0-14.5); WHITE BLOOD COUNT 5.2 10^3/uL (4.3-11.0)
[2019-07-24 06:52] LABS: ALBUMIN 3.2 GM/DL (3.2-4.5); BILIRUBIN,TOTAL 0.6 MG/DL (0.1-1.0); CALCIUM 8.8 MG/DL (8.5-10.1); CREATININE SERUM 2.11 MG/DL (0.60-1.30); POTASSIUM 3.7 MMOL/L (3.6-5.0); TOTAL PROTEIN 6.5 GM/DL (6.4-8.2)
[2019-07-24 07:21] VITALS: BP 125/58
[2019-07-24 07:42] LABS: ANISOCYTOSIS MODERATE; EOSINOPHILS % (MANUAL) 3 %; LYMPHOCYTES % (MANUAL) 31 %; MICROCYTOSIS MARKED; MONOCYTES % (MANUAL) 13 %; NEUTROPHILS % (MANUAL) 53 %
[2019-07-24] MEDS: hydrOXYzine (ATARAX) 10 MG TAB PO PRN ×3 (09:09→20:35)
[2019-07-24 11:04] VITALS: BP 127/72
[2019-07-24] MEDS ORDERED: TR1C15 TP (11:45)
[2019-07-24] MEDS ORDERED: PATIENT MAY USE OWN MED,SINGLE MED PO SCH (11:45)
[2019-07-24] MEDS: DIAZEPAM 5 MG (VALIUM) TABLET PO PRN (12:37)
--- NOTE | 2019-07-24 13:02 | History & Physical-Hospitalist ---
History of Present Illness HPI/Chief Complaint CC: Vertigo HPI: This is a very medically complex 79yoWF clinic patient of Dr Gonzales who also sees Dr Bauman for pacemaker and CAD and Dr Mann for insulin pump who presented to the ER with vertigo and high risk for falls. Dr Mcdonnell has been consulted. Insulin pump is being changed by her granddaughter at time of in [facility] and she lives with the patient. Patient feels much better overall and is able to eat and drink. She is more concerned about the scraping of the skin lesions she has on her arms that Dr Gonzales has been treating than any other of her multiple issues. Kenalog cream will be restarted of her home supply and I told her I can't access the lab results that PCP had ordered to try to figure out what is causing the rash. She appears to have a skin condition attributed to DM and renal failure. She sees a kidney specialist in [place] but cannot remember her name and has been trying to change to Dr Simi Mcdonnell but can't seem to get well enough to get to her appt once it is scheduled. Source: patient, family, RN/MD, old records Exam Limitations: no limitations Date Seen 07/24/19 Time Seen by a Provider: 11:20 Attending Physician Lynne Hanson DO PCP Rashaun Gonzales MD Referring Physician Date of Admission Jul 23, 2019 at 17:30 Home Medications & Allergies Home Medications Reviewed patient Home Medication Reconciliation performed by pharmacy medication reconciliations body technician/painter and/or nursing. Patients Allergies have been reviewed. Allergies Allergies Coded Allergies sulfamethoxazole (Verified Allergy, Intermediate, 10/05/15) tramadol (Verified Allergy, Intermediate, 10/05/15) trimethoprim (Verified Allergy, Intermediate, 10/05/15) Penicillins (Verified Allergy, Unknown, 10/05/15) codeine (Verified Allergy, Unknown, CAN TAKE MORPHINE, 10/05/15) hydrocodone (Verified Allergy, Unknown, 10/05/15) morphine (Verified Adverse Reaction, Intermediate, Nausea, 06/03/19) amiodarone (Verified Adverse Reaction, Mild, NAUSEA, dizziness, 02/01/16) Past Truiwxc-Kskpxd-Pksdqk Hx Past Med/Social Hx: Reviewed Nursing Past Med/Soc Hx, Reviewed and Corrections made Patient Social History Marrital Status: single Employed/Student: retired Alcohol Use: Denies Use Recreational Drug Use: No Smoking Status: Never a Smoker 2nd Hand Smoke Exposure: No Recent Foreign Travel: No Contact w/other who traveled: No Recent Hopitalizations: No Recent Infectious Disease Expo: No Immunizations Up To Date Tetanus Booster (TDap): Less than 5yrs Date of Pneumonia Vaccine: Aug 02, 2018 Date of Influenza Vaccine: Apr 19, 2019 Seasonal Allergies Seasonal Allergies: No Past Medical History Surgeries: Cardiac, Coronary Stent, Gallbladder, Hysterectomy, Oophorectomy, Orthopedic, Pacemaker, Vascular Surgery Currently Using CPAP: No Currently Using BIPAP: No Cardiac: Atrial Fibrillation, Chronic Edema/Swelling, Coronary Artery Disease, Heart Attack, Heart Murmur, High Cholesterol, Hypertension, Peripheral Vascular, Rheumatic Fever Neurological: Neuropathy, TIA Reproductive: No Sexually Transmitted Disease: No Hysterectomy, Menopausal Genitourinary: Bladder Infection, UTI-Chronic Gastrointestinal: C-Diff, Irritable Bowel Endocrine: Diabetes, Insulin dep HEENT: Cataract Loss of Vision: Left Hearing Impairment: Deaf Cancer: Breast Did You Recieve Any Treatments: Yes What Type of Treatment Did You: Radiation History of Blood Disorders: No Adverse Reaction to Blood High: No Family History Cardiovascular disease 19 FATHER 19 MOTHER G8 BROTHER G8 SISTER G8 SISTER G8 SISTER Completed stroke 19 FATHER G8 SISTER Diabetes mellitus 19 FATHER G8 SISTER G8 SISTER FH: cancer G8 SISTER G8 SISTER Myocardial infarction G8 BROTHER (65 YEARS OLD) No Pertinent Family Hx Review of Systems Constitutional: see HPI, dizziness, malaise, weakness Skin: see HPI Physical Exam Physical Exam Vital Signs Vital Signs - First Documented 07/23/19 18:58 O2 Delivery Room Air Capillary Refill : Less Than 3 Seconds Height, Weight, BMI Height: 5'6.00" Weight: 223lbs. 0.5oz. 101.024525xw; 35.69 BMI Method:Stated General Appearance: No Apparent Distress, Chronically ill, Obese Eyes: Right Eye Normal Inspection, Right Eye PERRL HEENT: PERRL/EOMI, Normal ENT Inspection, Pharynx Normal, Moist Mucous Membranes Neck: Full Range of Motion, Normal Inspection, Non Tender Respiratory: Chest Non Tender, Lungs Clear, Normal Breath Sounds, No Accessory Muscle Use, No Respiratory Distress Cardiovascular: Regular Rate, Rhythm, No Edema, No Gallop, No JVD, No Murmur, Normal Peripheral Pulses Gastrointestinal: Normal Bowel Sounds, No Organomegaly, No Pulsatile Mass, Non Tender, Soft Back: Normal Inspection, No CVA Tenderness, No Vertebral Tenderness Extremity: Normal Capillary Refill, Normal Inspection, Normal Range of Motion, Non Tender, No Calf Tenderness, No Pedal Edema Neurologic/Psychiatric: Alert, Oriented x3, No Motor/Sensory Deficits, Normal Mood/Affect, loader 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 Assessment/Plan Admission Diagnosis Assessment: Vertigo Fall risk CAD Pacemaker AF Skin lesions DM CRI Plan: Home meds Dr Mcdonnell consultation is appreciated Monitor closely Chronically ill Admission Status: Observation Diagnosis/Problems Diagnosis/Problems (1) Weakness generalized Status: Acute (2) CAD (coronary artery disease) (3) SSS (sick sinus syndrome) Status: Chronic (4) Hypertension Status: Acute (5) IDDM (insulin dependent diabetes mellitus) Status: Acute (6) Multi-vessel coronary artery stenosis Status: Acute Clinical Quality Measures DVT/VTE Risk/Contraindication: Risk Factor Score Per Nursin RFS Level Per Nursing on Admit: 2=Moderate LYNNE HANSON DO Jul 24, 2019 13:01
[2019-07-24] MEDS: ONDANSETRON 4 MG/2 ML (SDV) Z0FRAN IV PRN (15:15)
[2019-07-24] MEDS: NS IV 1000 ML 1,000 ML IV SCH (15:21)
[2019-07-24 15:57] VITALS: BP 113/56
[2019-07-24 19:56] VITALS: BP 108/54
[2019-07-24] MEDS: TRIAMCINOLONE 0.1% CR (KENALOG) 15 GM TUBE TP SCH (20:36)
[2019-07-24] MEDS ORDERED: NON-FORMULARY MEDICATION 1 EA EA (Ondansetron HCl (Zofran) 4 MG) PO PRN (20:45)
[2019-07-24] MEDS ORDERED: LIRAGLUTIDE SC SCH (21:00)
[2019-07-24] MEDS ORDERED: NON-FORMULARY MEDICATION 1 EA EA (Potassium Chloride 20 MEQ) PO SCH (21:00)
[2019-07-24] MEDS ORDERED: ONDANSETRON 4 MG (ZOFRAN) ORAL DISSOLVE TAB PO PRN (21:30)
[2019-07-24] MEDS: MIDODRINE 10 MG (PROAMATINE) TAB PO SCH (21:41)
[2019-07-24] MEDS: ROSUVASTATIN 20 MG (CRESTOR) TABLET PO SCH (21:42)
[2019-07-24] MEDS: DOCUSATE SODIUM 100 MG (COLACE) CAP PO SCH (21:42)
[2019-07-24] MEDS: APIXABAN 5 MG (ELIQUIS) TABLET PO SCH (21:42)
[2019-07-25 00:06] VITALS: BP 140/60
[2019-07-25 05:38] LABS: BASOPHILS % (AUTO) 1 % (0-10); EOSINOPHILS # (AUTO) 0.1 10^3/uL (0.0-0.3); EOSINOPHILS % (AUTO) 2 % (0-10); HEMATOCRIT 30 % (35-52); HEMOGLOBIN 8.6 G/DL (11.5-16.0); LYMPHOCYTES # (AUTO) 1.4 X 10^3 (1.0-4.0); LYMPHOCYTES % (AUTO) 28 % (12-44); MEAN CORPUSCULAR HEMOGLOBIN 19 PG (25-34); MEAN CORPUSCULAR HGB CONC 29 G/DL (32-36); MEAN CORPUSCULAR VOLUME 64 FL (80-99); MEAN PLATELET VOLUME 9.5 FL (7.4-10.4); MONOCYTES # (AUTO) 0.7 X 10^3 (0.0-1.0); MONOCYTES % (AUTO) 15 % (0-12); NEUTROPHILS # (AUTO) 2.7 X 10^3 (1.8-7.8); NEUTROPHILS % (AUTO) 55 % (42-75); PLATELET COUNT 155 10^3/uL (130-400); RED CELL DISTRIBUTION WIDTH 21.8 % (10.0-14.5); WHITE BLOOD COUNT 4.9 10^3/uL (4.3-11.0)
[2019-07-25 05:55] LABS: ALBUMIN 3.3 GM/DL (3.2-4.5); BILIRUBIN,TOTAL 0.7 MG/DL (0.1-1.0); CALCIUM 8.8 MG/DL (8.5-10.1); CREATININE SERUM 2.03 MG/DL (0.60-1.30); TOTAL PROTEIN 6.5 GM/DL (6.4-8.2)
[2019-07-25] MEDS: CYANOCOBALAMIN 1,000 MCG (VITAMIN B-12) TABLET PO SCH ×2 (06:43→08:45)
--- NOTE | 2019-07-25 06:47 | NUR ---
CRITICAL SUGAR OF 39. CLEAR ENSURE, PEANUT BUTTER AND CRACKERS GIVEN TO PT. PT ALERT AND ORIENTED. AFTER FOOD RECHECKED SUGAR BACK TO 122. DR HANSON NOTIFIED NOT NEW ORDERS RECEIVED.
[2019-07-25] MEDS: ONDANSETRON 4 MG/2 ML (SDV) Z0FRAN IV PRN ×2 (07:10→19:49)
[2019-07-25 08:00] VITALS: BP 101/64
[2019-07-25] MEDS: ALLOPURINOL 100 MG (ZYLOPRIM) TAB PO SCH (08:40)
[2019-07-25] MEDS: KCL 20 MEQ TAB (K-DUR) PO SCH ×2 (08:40→19:48)
[2019-07-25] MEDS: MIDODRINE 10 MG (PROAMATINE) TAB PO SCH ×2 (08:40→19:47)
[2019-07-25] MEDS: APIXABAN 5 MG (ELIQUIS) TABLET PO SCH (08:41)
[2019-07-25] MEDS: CLOPIDOGREL 75 MG (PLAVIX) TABLET PO SCH (08:41)
[2019-07-25] MEDS: PANTOPRAZOLE 40 MG (PROTONIX) TAB PO SCH (08:41)
[2019-07-25] MEDS: TRIAMCINOLONE 0.1% CR (KENALOG) 15 GM TUBE TP SCH ×2 (08:42→19:57)
[2019-07-25] MEDS ORDERED: NON-FORMULARY MEDICATION 1 EA EA (Cyanocobalamin (Vitamin B-12) (Vitamin B-12) 1,000 MCG) PO SCH (09:00)
[2019-07-25] MEDS ORDERED: TORSEMIDE 50 MG PO SCH (09:00)
[2019-07-25] MEDS ORDERED: NON-FORMULARY MEDICATION 1 EA EA (Cholecalciferol (Vitamin D3) (Vitamin D3) 5,000 UNIT) PO SCH (09:00)
--- NOTE | 2019-07-25 10:09 | Physical Therapy Evaluation ---
PT Evaluation-General Medical Diagnosis Admission Date Jul 23, 2019 at 17:30 Medical Diagnosis: Acute dizziness Onset Date: Jul 23, 2019 Therapy Diagnosis Therapy Diagnosis: debility Height/Weight Height (Feet): 5 Height (Inches): 6.00 Weight (Pounds): 223 Weight (Ounces): 0.5 Precautions Precautions/Isolations: Fall Prevention, Standard Precautions Referral Physician: Lou Reason for Referral: Evaluation/Treatment Medical History Pertinent Medical History: Atrial Fib, CAD, DM, HTN, NM, Neuropathy Current History ER with N&V and dizziness Reviewed History: Yes Social History Home: Single Level Current Living Status: Other Family (granddaughter) Entry Into Home: Ramp Prior Prior Level of Function SCALE: Activities may be completed with or without assistive devices. 7-Aipwwxwxem-exevfdt completes the activity by him/herself with no assistance from a helper. 5-Set-up or Clean-up Assistance-helper sets up or cleans up; patient completes activity. [place] assists only prior to or following the activity. 4-Supervision or Touching Assistance-helper provides verbal cues and/or touching/steadying and/or contact guard assistance as patient completes activity. Assistance may be provided throughout the activity or intermittently. 3-Partial/Moderate Assistance-helper does LESS THAN HALF the effort. [place] lifts, holds or supports trunk or limbs, but provides less than half the effort. 2-Substantial/Maximal Assistance-helper does MORE THAN HALF the effort. [place] lifts or holds trunk or limbs and provides more than half the effort. 2-Jvuznuwjf-sjgqsc does ALL the effort. Patient does none of the effort to complete the activity. Or, the assistance of 2 or more helpers is required for the patient to complete the activity. If activity was not attempted, code reason: 7-Patient Refused. 9-Not Applicable-not attempted and the patient did not perform the activity before the current illness, exacerbation or injury. 10-Not Attempted due to Environmental Limitations-(lack of equipment, weather restraints, etc.). 88-Not Attempted due to Medical Conditions or Safety Concerns. Bed Mobility: 4 Transfers (B,C,W/C): 4 Gait: 5 Stairs: 9 Indoor Mobility (Ambulation): Needed Some Help (short distances only) PT Evaluation-Current Subjective Patient agrees to PT. Noted confusion. Objective Patient Orientation: Confused Attachments: IV ROM/Strength ROM Lower Extremities bilateral LE WFL Strength Lower Extremities 3+/5 grossly bilateral LE Integumentary/Posture Integumentary refer to nursing notes Bladder Incontinence: Yes Posture WFL Neuromuscular (Tone, Coordination, Reflexes) grossly intact Sensory Vision: Functional Hearing: Functional Sensation Right Lower Extremit: Impaired Sensation Left Lower Extremity: Impaired Transfers Roll Left to Right (QC): 4 Sit to Lying (QC): 4 Lying to Sitting/Side of Bed(Q: 4 Sit to Stand (QC): 4 Chair/Mye-fc-Ebdwz Xfer(QC): 4 Gait Does the Patient Walk?: Yes Mode of Locomotion: Walk Anticipated Mode of Locomotion: Walk Walk 10 feet (QC): 4 Walk 50 ft with 2 Turns(QC): 9 Walk 150 ft (QC): 9 Distance: 20' Gait Assistive Device: FWW Comments/Gait Description WFL Balance Sitting Static: Normal Sitting Dynamic: Normal Standing Static: Fair Standing Dynamic: Fair Assessment/Needs 79 y.o. female, will benefit from short term skilled PT to address functional strength and mobility to improve current LOF to safely return to home with caregiver at maximum LOF. 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 Operator Goals Cylinder Machine Operator Goals PT Senior Living Goals Time Frame: Aug 06, 2019 Roll Left & Right (QC): 5 Sit to Lying (QC): 5 Lying-Sitting on Side/Bed(QC): 5 Sit to Stand (QC): 5 Chair/Hje-jn-Kmsae Xfer(QC): 5 Toilet Transfer (QC): 5 Does the Patient Walk: Yes Walk 10 feet (QC): 5 PT Plan Problem List Problem List: Activity Tolerance, Functional Strength, Safety, Balance, Gait, Transfer, Bed Mobility Treatment/Plan Treatment Plan: Continue Plan of Care Treatment Plan: Bed Mobility, Education, Functional Activity Sammie, Functional Strength, Gait, Safety, Therapeutic Exercise, Transfers Treatment Duration: Aug 06, 2019 Frequency: 6 times per week Estimated Hrs Per Day: .25 hour per day Patient and/or Family Agrees t: Yes Time/GCodes Time In: 931 Time Out: 940 Total Billed Treatment Time: 9 Total Billed Treatment 1 visit EVLowC 9 min WOODY STARKEY PT Jul 25, 2019 10:09
--- NOTE | 2019-07-25 10:16 | Consultation-Cardiology ---
HPI-Cardiology Cardiology Consultation Date of Consultation 07/25/19 Date of Admission Time Seen by Provider: 08:55 Indication: CAD HPI Patient is an 79 y/o female with history of CAD, PVD, SSS s/p PPM, Aortic stenosis with hx of TAVR in April 2019. Presents to the ER with complaints of dizziness and generalized weakness. Denies any chest pain, dyspnea, syncope or peripheral edema. Has hx of vertigo and chronic dizziness. Complaining of increased fatigue over the past week. Denies any f/c/ns. 79 years old lady with history of coronary artery disease, peripheral arterial disease, sinus node dysfunction and permanent pacemaker, had history of TAVR done in April 2019 for aortic stenosis. Presented to the emergency room with increasing dizziness and generalized weakness, has been having skin rash for the past months with itching. Currently feeling better, still having generalized weakness and loss of energy. Denied any chest pain. Denied any palpitation, no syncope was reported. Has dyspnea on exertion Home Medications & Allergies Allergies: Coded Allergies: sulfamethoxazole (Verified Allergy, Intermediate, 10/05/15) tramadol (Verified Allergy, Intermediate, 10/05/15) trimethoprim (Verified Allergy, Intermediate, 10/05/15) Penicillins (Verified Allergy, Unknown, 10/05/15) codeine (Verified Allergy, Unknown, CAN TAKE MORPHINE, 10/05/15) hydrocodone (Verified Allergy, Unknown, 10/05/15) morphine (Verified Adverse Reaction, Intermediate, Nausea, 06/03/19) amiodarone (Verified Adverse Reaction, Mild, NAUSEA, dizziness, 02/01/16) Home Medication List Reviewed: Yes EXR-Xqcyva-Ghwkru Hx Patient Social History Marital Status: Employed/Student: retired Alcohol Use: Denies Use Recreational Drug Use: No Smoking Status: Never a Smoker 2nd Hand Smoke Exposure: No Recent Foreign Travel: No Recent Infectious Disease Expo: No Recent Hopitalizations: No Immunizations Up To Date Tetanus Booster (TDap): Less than 5yrs Date of Pneumonia Vaccine: Aug 02, 2018 Date of Influenza Vaccine: Apr 19, 2019 Past Medical History CAD, PVD, SSS s/p PPM, HTN, HLP Family Medical History Significant Family History: No Pertinent Family Hx Family History: 19 FATHER Completed stroke Diabetes mellitus Cardiovascular disease 19 MOTHER Cardiovascular disease G8 BROTHER Myocardial infarction (65 YEARS OLD) Cardiovascular disease G8 SISTER Cardiovascular disease Diabetes mellitus G8 SISTER Diabetes mellitus FH: cancer G8 SISTER FH: cancer Cardiovascular disease G8 SISTER Completed stroke Cardiovascular disease Review of Systems-General Review of Systems Constitutional: see HPI, dizziness, malaise, weakness EENTM: see HPI; No blurred vision, No double vision Respiratory: see HPI; No cough, No short of breath Cardiovascular: see HPI; No chest pain, No palpitations Gastrointestinal: No abdominal pain, No diarrhea; nausea, vomiting Genitourinary: No dysuria, No frequency Musculoskeletal: no symptoms reported Skin: lesions, rash (maculopapular rash with some ulcerations to upper torso and abdomen) Reviewed Test Results Reviewed Test Results Lab Laboratory Tests 07/24/19 10:57: Glucometer 116H 07/24/19 16:00: Glucometer 116H 07/24/19 21:08: Glucometer 92 07/25/19 05:10: White Blood Count 4.9, Red Blood Count 4.63, Hemoglobin 8.6L, Hematocrit 30L, Mean Corpuscular Volume 64L, Mean Corpuscular Hemoglobin 19L, Mean Corpuscular H emoglobin Concent 29L, Red Cell Distribution Width 21.8H, Platelet Count 155, Mean Platelet Volume 9.5, Neutrophils (%) (Auto) 55, Lymphocytes (%) (Auto) 28, Monocytes (%) (Auto) 15H, Eosinophils (%) (Auto) 2, Basophils (%) (Auto) 1, Neutrophils # (Auto) 2.7, Lymphocytes # (Auto) 1.4, Monocytes # (Auto) 0.7, Eosinophils # (Auto) 0.1, Basophils # (Auto) 0.0, Sodium Level 139, Potassium Level 4.0, Chloride Level 106, Carbon Dioxide Level 22, Anion Gap 11, Blood Urea Nitrogen 19H, Creatinine 2.03H, Estimat Glomerular Filtration Rate 24, BUN/Cr eatinine Ratio 9, Glucose Level 39*L, Calcium Level 8.8, Corrected Calcium 9.4, Total Bilirubin 0.7, Aspartate Amino Transf (AST/SGOT) 21, Alanine Aminotransferase (ALT/SGPT) 11, Alkaline Phosphatase 97, Total Protein 6.5, Albumin 3.3 07/25/19 06:17: Glucometer 64L 07/25/19 06:36: Glucometer 122H Microbiology 07/23/19 Urine Culture - Preliminary, Resulted Escherichia coli Gram Negative Bacillus 1 Physical Exam Physical Exam Vital Signs Vital Signs - First Documented 07/23/19 18:58 O2 Delivery Room Air Capillary Refill : Less Than 3 Seconds Height, Weight, BMI Height: 5'6.00" Weight: 223lbs. 0.5oz. 101.226445zl; 35.69 BMI Method:Stated General Appearance: No Apparent Distress, Chronically ill, Obese Eyes: Right Eye Normal Inspection, Right Eye PERRL HEENT: PERRL/EOMI, Normal ENT Inspection, Pharynx Normal, Moist Mucous Membranes Neck: Full Range of Motion, Normal Inspection, Non Tender Respiratory: Chest Non Tender, Lungs Clear, Normal Breath Sounds, No Accessory Muscle Use, No Respiratory Distress Cardiovascular: Regular Rate, Rhythm, No Gallop, No JVD, Normal Peripheral Puls es, Systolic Murmur Gastrointestinal: Normal Bowel Sounds, No Organomegaly, No Pulsatile Mass, Non Tender, Soft Back: Normal Inspection, No CVA Tenderness, No Vertebral Tenderness Extremity: Normal Capillary Refill, Normal Inspection, Normal Range of Motion, Non Tender, No Calf Tenderness, Pedal Edema Neurologic/Psychiatric: Alert, Oriented x3, No Motor/Sensory Deficits, Normal Mood/Affect, flange turner II-XII Norm as Tested Skin: Normal Color, Warm/Dry, Rash (arms lesions circular) Lymphatic: No Adenopathy A/P-Cardiology Admission Diagnosis Generalized weakness CAD PVD PAF Assessment/Plan Generalized weakness/dizziness, patient reporting some improvement of her symptoms. History of chronic dizziness/lightheadedness. Still borderline blood pressure, not currently hypotensive. Continue to monitor Skin rash, questionable allergic reaction, will try to obtain copy of her medication and review any new medication she started in the past couple of thu, she had a skin biopsy done by Dr. Gonzales Coronary artery disease, multiple interventions in the past, reports a total of 11 stents. Multivessel disease. Cardiac catheterization was done in October 2012 showing severe stenosis in the midright coronary artery had stent deployed 3.0x24 mm Promus Elements stent expanded to 3.18 mm in the right coronary artery. Severe stenosis in the proximal diagonal artery, very small artery not amendable to intervention. 60 percent in-stent restenosis in the mid circumflex artery, underwent another cardiac catheterization on November 19, [address] Burch, had a stent to the circumflex artery, the stent sizes was not described in the report. Cardiac catheterization done December 26, 2016 with balloon angioplasty to the mid circumflex for 80 percent in-stent restenosis. Patient was brought back the same day where she underwent repeat cardiac catheterization after having chest pain, underwent another balloon angioplasty and stent deployment in the distal circumflex artery for recoil of the in-stent restenosis with the use of a new stent, 3.5 x 18 mm Xience Alpine stent. Most recent cardiac catheterization on February 04, [address] Mcdonnell after having type II myocardial infarction which showed moderate multivessel coronary artery disease, had FFR 0.83 to the LAD and 0.91 to the left circumflex artery, treated conservatively. Currently denying any chest pain. Continue to monitor Peripheral arterial disease, history of nonhealing foot ulcer and stent done in 2016, cardiac catheterization done in September 2017 showing total occlusion of the left SFA with complex intervention and balloon angioplasty then drug-coated balloon 5 x 100 then deployment of a new stent Innova 6 x 150 from the ostium of the left SFA to the mid SFA overlapping with old stent with excellent results, mild to moderate disease at the popliteal artery and below the trifurcation with small vessel disease, mild to moderate disease at the right SFA. Underwent peripheral angiogram on September 02, [address] Sotomayor with left SFA popliteal atherectomy and angioplasty, left anterior tibial artery angioplasty with widely patent vessels following intervention. Currently asymptomatic. Continue to monitor Labile hypertension, currently controlled. Received IV fluids, continue to monitor closely. Chronic renal insufficiency, stage III renal disease, followed by Dr. Long, continue to monitor History of Intraocular hemorrhage in February 2019, underwent multiple laser procedure, follows with Dr. Hdez in [place] History of severe aortic valve stenosis s/p TAVR in April 2019, most recent 2D Echo done at May 2019 revealed prosthetic valve in aortic position functioning normally. Hyperlipidemia, patient reports intolerance to Lipitor, tolerating Crestor, continue to monitor lipids Diabetes mellitus, followed and managed by primary care physician. Sick sinus syndrome, history of permanent pacemaker placement. Medtronic device, pacemaker checkup was done in May 2019 showing good sensing and capture activity, continue to monitor Carotid stenosis, history of right carotid endarterectomy. CTA of neck done on February 01, 2016 revealed no significant stenosis in the internal carotid arteries. Prominent focus of stenosis in the distal aspect of the left vertebral artery at the foramen magnum and level dominant right vertebral artery demonstrates no significant stenosis. Carotid ultrasound in April 2018 showed mild bilateral disease. Continue to monitor Paroxysmal atrial fibrillation, history of intolerance to amiodarone. Maintained on Eliquis. 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 followed by Dr. Palomino, currently in remission. Thank you for allowing us to participate in the management of Ms. Cain. This is Portia Jimenez PA-C as a scribe for Dr. Bauman. Patient was seen and evaluated with Portia, examination performed, management plan was discussed, agree with the current scribed note, I made few changes to the note using Italic font On examination patient had mild macular papular rash, lungs were clear to auscultation, heart is regular with systolic murmur, +2-3 pedal edema Continue on IV fluid, I will review her medication and evaluate for any possible medication as a cause for allergic reaction, discussed the possibility for dermatology referral Clinical Quality Measures DVT/VTE Risk/Contraindication: Risk Factor Score Per Nursin RFS Level Per Nursing on Admit: 2=Moderate PORTIA NEUMANN Jul 25, 2019 10:16 DIMPLE BAUMAN MD Jul 25, 2019 11:08
[2019-07-25] MEDS ORDERED: cefTRIAXone FOR IV USE 2,000 MG in WATER (STERILE) FOR INJECTION 20 ML IV SCH (10:30)
[2019-07-25] MEDS: hydrOXYzine (ATARAX) 10 MG TAB PO PRN ×2 (10:34→19:45)
[2019-07-25] MEDS: NS IV 1000 ML 1,000 ML IV SCH (10:34)
[2019-07-25] MEDS: inSUlin ASPART (NovoLOG) 1 UNIT/0.01 ML (CHARGE PER UNIT) SC SCH ×2 (11:00→22:15)
--- NOTE | 2019-07-25 11:56 | Progress Note - Hospitalist ---
Subjective HPI/CC On Admission Date Seen by Provider: Jul 25, 2019 Time Seen by Provider: 08:15 CC: Vertigo HPI: This is a very medically complex 79yoWF clinic patient of Dr Gonzales who also sees Dr Bauman for pacemaker and CAD and Dr Mann for insulin pump who presented to the ER with vertigo and high risk for falls. Dr Mcdonnell has been consulted. Insulin pump is being changed by her granddaughter at time of interview and she lives with the patient. Patient feels much better overall and is able to eat and drink. She is more concerned about the scraping of the skin lesions she has on her arms that Dr Gonzales has been treating than any other of her multiple issues. Kenalog cream will be restarted of her home supply and I told her I can't access the lab results that PCP had ordered to try to figure out what is causing the rash. She appears to have a skin condition attributed to DM and renal failure. She sees a kidney specialist in [place] but cannot remember her name and has been trying to change to Dr Simi Mcdonnell but can't seem to get well enough to get to her appt once it is scheduled. Subjective/Events-last exam She reports no further vertigo. She reports feeling weak this morning. She says that she was hypoglycemic. She denies any fevers or chills. She denies any chest pain or shortness of breath. She denies any abdominal pain, nausea, or vomiting. Objective Exam Vital Signs Vital Signs Date Time Temp Pulse Resp B/P (MAP) Pulse Ox O2 Delivery O2 Flow Rate FiO2 07/25/19 08:00 35.4 61 16 101/64 (76) 95 Room Air Capillary Refill : Less Than 3 SecondsLess Than 3 Seconds General Appearance: No Apparent Distress, Obese HEENT: PERRL/EOMI, Pharynx Normal Neck: Normal Inspection, Supple Respiratory: Lungs Clear, Normal Breath Sounds, No Respiratory Distress Cardiovascular: Regular Rate, Rhythm, No Murmur Gastrointestinal: Normal Bowel Sounds, Non Tender, Soft Extremity: Normal Inspection, Non Tender, Pedal Edema Neurologic/Psychiatric: Alert, Oriented x3, No Motor/Sensory Deficits, Other (Flat affect) Skin: Normal Color, Warm/Dry Results/Procedures Lab Laboratory Tests 07/25/19 05:10 Patient resulted labs reviewed. Assessment/Plan Assessment and Plan Assess & Plan/Chief Complaint Vertigo No further episodes since admission Cardiology following Possibly orthostasis due to urinary tract infection Possibly related to hypoglycemia Urinary tract infection Begin Rocephin 2 g daily Await microbiology results Type II diabetes mellitus with hypoglycemia Blood sugar 39 this morning, improved to 122 following intervention Removed insulin pump Begin sliding scale insulin Acute kidney injury on chronic kidney disease Creatinine 2.22 on admission, trended down to 2.03 today Baseline creatinine approximately 1.7 Likely contributing to hypoglycemia Paroxysmal atrial fibrillation Continue Eliquis Coronary artery disease Hyperlipidemia Continue Plavix and statin Diagnosis/Problems Diagnosis/Problems (1) Type 2 diabetes mellitus with hypoglycemia Status: Acute Qualifiers: Diabetes mellitus fdc insulin use: with vermin exterminator use Diabetes mellitus complication detail: without coma Qualified Codes: E11.649 - Type 2 diabetes mellitus with hypoglycemia without coma; 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
[2019-07-25] MEDS: VITAMIN D3 1,000 UNITS (CHOLECALCIFEROL) TABLET PO SCH (12:04)
[2019-07-25] MEDS: ACETAMINOPHEN 325 MG TABLET PO PRN ×2 (12:09→19:46)
[2019-07-25] MEDS: TORSEMIDE 20 MG (DEMADEX) TAB PO SCH (12:09)
[2019-07-25] MEDS ORDERED: HYDR-700 PO (12:57)
--- NOTE | 2019-07-25 13:07 | NUR ---
SPOKE WITH THE PT, SHE WAS UNSURE OF WHAT THE NAMES OF HER MEDS OR HOW SHE TAKES THEM. 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 I CALLED [facility] AND GOT A LIST AND ALSO SPOKE WITH [facility] AND COMPARED INFORMATION TO COMPLETE THE MED REC TO THE BEST OF MY ABILITY. MANSI 5MG: THE HOME HEALTH NURSE [facility] SAYS THAT ONE IS CUT IN HALF AND GETS TAB BID- HOWEVER [facility] DOES NOT HAVE THOSE DIRECTIONS AND LAST FILL DATE WAS 05-25-2019 OTC MEDS: TYLENOL VIT D VIT B12 COLACE
[2019-07-25] MEDS ORDERED: FEXO180T84 PO (13:20)
[2019-07-25] MEDS ORDERED: DIPH25TA65 PO (13:20)
--- NOTE | 2019-07-25 13:45 | Occupational Therapy Eval ---
OT Evaluation-General/PLF Medical Diagnosis Admission Date Jul 25, 2019 at 13:00 Medical Diagnosis: Acute dizziness Onset Date: Jul 23, 2019 Therapy Diagnosis Therapy Diagnosis: Decreased ADL function Height/Weight Height (Feet): 5 Height (Inches): 6.00 Weight (Pounds): 223 Weight (Ounces): 0.5 Precautions Precautions/Isolations: Fall Prevention, Standard Precautions Safety Interventions: None Referral Physician: Lou Referral Reason: Activity Tolerance, Self Care, Evaluation/Treatment, Strengthening/ROM Medical History Pertinent Medical History: Atrial Fib, CAD, DM, HTN, [place], Neuropathy Current History Pt experiencing vertigo and nausea; told grandaughter she needs hospitalization Reviewed History: Yes Social History Home: Single Level Current Living Status: Other Family (granddaughter) Entry Into Home: Ramp ADL-Prior Level of Function SCALE: Activities may be completed with or without assistive devices. 5-Ociknthacy-zuckuoq completes the activity by him/herself with no assistance from a helper. 5-Set-up or Clean-up Assistance-helper sets up or cleans up; patient completes activity. [place] assists only prior to or following the activity. 4-Supervision or Touching Assistance-helper provides verbal cues and/or touching/steadying and/or contact guard assistance as patient completes activity. Assistance may be provided throughout the activity or intermittently. 3-Partial/Moderate Assistance-helper does LESS THAN HALF the effort. [place] lifts, holds or supports trunk or limbs, but provides less than half the effort. 2-Substantial/Maximal Assistance-helper does MORE THAN HALF the effort. [place] lifts or holds trunk or limbs and provides more than half the effort. 4-Weedymjyj-pwrfjd does ALL the effort. Patient does none of the effort to complete the activity. Or, the assistance of 2 or more helpers is required for the patient to complete the activity. If activity was not attempted, code reason: 7-Patient Refused. 9-Not Applicable-not attempted and the patient did not perform the activity b efore the current illness, exacerbation or injury. 10-Not Attempted due to Environmental Limitations-(lack of equipment, weather restraints, etc.). 88-Not Attempted due to Medical Conditions or Safety Concerns. ADL PLOF Comments Pt states she receives 39 hours of assist within the day time hours with granddaughter not present for work, pt states she would like more assist at night as to not disturb granddaughter. Self Care: Needed Some Help Functional Cognition: Independent Occupation: retired Drive Self: No OT Current Status Subjective Pt seen on side within bed, states pain in back due to laying, denies OOB activity or ADLs. Pt agreeable to talk/ complete PMHx. Mental Status/Objective Patient Orientation: Person, Place, Situation, Normal For Age Attachments: IV Current Glasses/Contacts: Yes Hearing Aids: No Dentures/Partials: No Hand Dominance: Right Upper Extremity ROM WFL BUE Upper Extremity Coordination WFL BUE Upper Extremity Sensation WFL Upper Extremity Strength Decreased bilaterally (4-/5) ADL-Treatment Eating (QC): 6 Oral Hygiene (QC): 7 Shower/Bathe Self (QC): 7 Upper Body Dressing (QC): 7 Lower Body Dressing (QC): 7 On/Off Footwear (QC): 7 Toileting Hygiene (QC): 7 Other Treatments Pt seen in bed, educated over OT role; pt denies OOB activity. Provides hx. Pt states she receives assist at home, stating they help "with everything." Pt's assist helps with bathing/ dressing tasks. Pt states she desires more assist so that when she soils self at night she does not disturb granddaughter. Pt states she feels weaker that typical, but does not do much throughout the day. Pt agrees she is at prior level, but desires to go home though "thankful (she) is here." Pt left in room with call light in reach, all needs met. Education OT Patient Education: Correct positioning, Modified ADL techniques Teaching Recipient: Patient Teaching Methods: Demonstration, Discussion Response to Teaching: Verbalize Understanding, Return Demonstration OT Nursing Home Goals Heel Seat Sander Goals 1=Demonstrate adherence to instructed precautions during ADL tasks. 2=Patient will verbalize/demonstrate understanding of assistive devices/modifications for ADL. 3=Patient will improve strength/tolerance for activity to enable patient to perform ADL's. OT Education/Plan Problem List/Assessment Assessment: No Skilled OT Needs ID'd Discharge Recommendations Plan/Recommendations: Discharge/Goals Met Therapy Discharge Recommendati: Scheduled Assistance, Bath Aide, Home & Family Treatment Plan/Plan of Care Treatment,Training & Education: Yes Plan of Care: OTHER (eval only) Treatment Duration: Jul 25, 2019 Frequency: 1 time per week (eval only) Rehab Potential: Fair Time/GCodes Start Time: 12:28 Stop Time: 12:40 Total Time Billed (hr/min): 12 Billed Treatment Time 1, MARLINE (12) QUANG KING OTR Jul 25, 2019 13:45
--- NOTE | 2019-07-25 14:15 | NUR ---
Pastoral care visit.
--- NOTE | 2019-07-25 14:29 | NUR ---
RD ASSESSMENT PMHx: CAD; VA; HTN; TIA; IBS; DM; CA(breast); c-diff; hypercholesterolemia PT INTERACTION: Pt was awake and pleasant during nutrition assessment. Pt states current appetite is poor and has been for some time. Note avg PO intake of 28% x1d, per chart review. Pt states following a regular diet at home and has some issues with chewing/swallowing food, but would not elaborate as to what those issues were. Pt states some recent episodes of nausea at this time, but no episodes of vomiting. Pt states recent episodes of diarrhea at this time. Note last BM was 07/25 and pt currently on bowel regimen of colace HS, per chart review. Pt states recent 20# wt x6mon d/t "water retention." Note unable to determine recent wt hx, per chart review. ABNORMAL NUTRITION-RELATED LAB VALUES LOW: HIGH: BUN 19; cr 2.03; glu 122 Est. kcal needs: 6256-9487 kcal | 15-18 kcal/kg Est. Pro needs: 80-100 g Pro | 0.8-1.0 g Pro/kg PES STATEMENT: Inadequate oral intake (NI-2.1) related to loss of appetite | nausea | diarrhea as evidenced by pt interview | avg PO intake 28% x1d INTERVENTION: Continue with current diet order of CHO 60g/m 1snack diet. Add Glucerna (strawberry) to meals TID for increased kcal intake. Provides 220 kcal and 10 g Pro per serving. Will continue to follow and reassess as pt needs and status change. MONITOR/EVALUATE: PO Intake; Plan of Care; Hydration Status; Weight Status; Lab Values Rex Vega, MS, RD, LD
[2019-07-25 16:00] VITALS: BP 114/56
[2019-07-25] MEDS: ROSUVASTATIN 20 MG (CRESTOR) TABLET PO SCH (19:45)
[2019-07-25] MEDS: MELATONIN 3 MG TABLET PO PRN (19:46)
[2019-07-25] MEDS: APIXABAN 2.5 MG (ELIQUIS) TABLET PO SCH (19:47)
[2019-07-25] MEDS: DOCUSATE SODIUM 100 MG (COLACE) CAP PO SCH (19:47)
[2019-07-25] MEDS: ESTROGENS CONJ. CREAM 30 GM (PREMARIN) TUBE VG SCH (22:15)
[2019-07-25 23:25] VITALS: BP 99/55
[2019-07-26] MEDS: NS IV 1000 ML 1,000 ML IV SCH (04:10)
--- NOTE | 2019-07-26 04:28 | NUR ---
accu ck was 56 350cc orange juice with sugar given . pt denied s/s of hypoglycemia.
[2019-07-26] MEDS: inSUlin ASPART (NovoLOG) 1 UNIT/0.01 ML (CHARGE PER UNIT) SC SCH ×4 (06:32→21:45)
[2019-07-26] MEDS: CYANOCOBALAMIN 1,000 MCG (VITAMIN B-12) TABLET PO SCH (06:32)
[2019-07-26 07:06] LABS: CALCIUM 8.4 MG/DL (8.5-10.1); CREATININE SERUM 1.99 MG/DL (0.60-1.30); POTASSIUM 4.3 MMOL/L (3.6-5.0)
[2019-07-26 08:00] VITALS: BP 122/77
[2019-07-26] MEDS ORDERED: CEFEPIME 2,000 MG/SWFI 20 ML IV PUSH IV SCH ×2 (08:00)
--- NOTE | 2019-07-26 08:17 | Cardiology Progress Note ---
Subjective Date Seen by Provider: Jul 26, 2019 Time Seen by Provider: 08:14 Subjective/Events-last exam Patient is sitting up in bed, eating breakfast. Denies any chest pain or dyspnea. Review of Systems General: No Chills, No Night Sweats; Fatigue, Malaise; No Appetite, No Other HEENT: No Head Aches, No Visual Changes, No Eye Pain, No Ear Pain, No Dysphasia, No Sinus Congestion, No Post Nasal Drip, No Sore Throat, No Other Pulmonary: Dyspnea; No Cough, No Pleuritic Chest Pain, No Other Cardiovascular: Edema; No: Chest Pain, Palpitations, Orthopnea, Paroxysmal Noc. Dyspnea, Lt Headedness, Other Objective-Cardiology Exam Last Set of Vital Signs Vital Signs 07/26/19 08:00 Temp 35.8 Pulse 65 Resp 18 B/P (MAP) 122/77 (92) Pulse Ox 93 O2 Delivery Room Air Capillary Refill : Less Than 3 SecondsLess Than 3 Seconds I&O Intake and Output 07/26/19 00:00 Intake Total 1950 ml Balance 1950 ml Intake Oral 1950 ml # Voids 7 # Bowel Movements 4 General: Alert, Oriented X3, Cooperative, No Acute Distress HEENT: Atraumatic, PERRLA Neck: Supple, No JVD Lungs: Clear to Auscultation, Normal Air Movement Heart: Regular Rate, Normal S1, Normal S2, Other (systolic murmur) Abdomen: Normal Bowel Sounds, Soft Extremities: Other (+2 edema BLE) Skin: No Rashes, No Significant Lesion Neuro: Normal Speech, Cranial Nerves 3-12 NL Psych/Mental Status: Mental Status NL, Mood NL Results Lab Laboratory Tests 07/26/19 06:38 A/P-Cardiology Admission Diagnosis Generalized weakness CAD PVD PAF Assessment/Plan Generalized weakness/dizziness, patient reporting some improvement of her symptoms. History of chronic dizziness/lightheadedness. Still borderline blood pressure, not currently hypotensive. Continue to monitor Skin rash, questionable allergic reaction, will try to obtain copy of her medication and review any new medication she started in the past couple of months, she had a skin biopsy done by Dr. Gonzales Coronary artery disease, multiple interventions in the past, reports a total of 11 stents. Multivessel disease. Cardiac catheterization was done in October 2012 showing severe stenosis in the midright coronary artery had stent deployed 3.0x24 mm Promus Elements stent expanded to 3.18 mm in the right coronary artery. Severe stenosis in the proximal diagonal artery, very small artery not amendable to intervention. 60 percent in-stent restenosis in the mid circumflex artery, underwent another cardiac catheterization on November 19, [address] Burch, had a stent to the circumflex artery, the stent sizes was not described in the report. Cardiac catheterization done December 26, 2016 with balloon angioplasty to the mid circumflex for 80 percent in-stent restenosis. Patient was brought back the same day where she underwent repeat cardiac catheterization after having chest pain, underwent another balloon angioplasty and stent deployment in the distal circumflex artery for recoil of the in-stent restenosis with the use of a new stent, 3.5 x 18 mm Xience Alpine stent. Most recent cardiac catheterization on February 04, [address] Mcdonnell after having type II myocardial infarction which showed moderate multivessel coronary artery disease, had FFR 0.83 to the LAD and 0.91 to the left circumflex artery, treated conservatively. Currently denying any chest pain. Continue to monitor Peripheral arterial disease, history of nonhealing foot ulcer and stent done in 2016, cardiac catheterization done in September 2017 showing total occlusion of the left SFA with complex intervention and balloon angioplasty then drug-coated balloon 5 x 100 then deployment of a new stent Innova 6 x 150 from the ostium of the left SFA to the mid SFA overlapping with old stent with excellent results, mild to moderate disease at the popliteal artery and below the trifurcation with small vessel disease, mild to moderate disease at the right SFA. Underwent peripheral angiogram on September 02, [address] Sotomayor with left SFA popliteal atherectomy and angioplasty, left anterior tibial artery angioplasty with widely patent vessels following intervention. Currently asymptomatic. Continue to monitor Labile hypertension, hypotensive this morning, continue to monitor. UTI- on antibiotics, management per PCP Chronic renal insufficiency, stage III renal disease, followed by Dr. Long, continue to monitor History of Intraocular hemorrhage in February 2019, underwent multiple laser procedure, follows with Dr. Hdez in [place] History of severe aortic valve stenosis s/p TAVR in April 2019, most recent 2D Echo done at May 2019 revealed prosthetic valve in aortic position functioning normally. Hyperlipidemia, patient reports intolerance to Lipitor, tolerating Crestor, continue to monitor lipids Diabetes mellitus, followed and managed by primary care physician. Sick sinus syndrome, history of permanent pacemaker placement. Medtronic device, pacemaker checkup was done in May 2019 showing good sensing and capture activity, continue to monitor Carotid stenosis, history of right carotid endarterectomy. CTA of neck done on February 01, 2016 revealed no significant stenosis in the internal carotid arteries. Prominent focus of stenosis in the distal aspect of the left vertebral artery at the foramen magnum and level dominant right vertebral artery demonstrates no significant stenosis. Carotid ultrasound in April 2018 showed mild bilateral disease. Continue to monitor Paroxysmal atrial fibrillation, history of intolerance to amiodarone. Maintained on Eliquis. 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 followed by Dr. Palomino, currently in remission. Patient was seen and evaluated with Portia, examination performed, management plan was discussed, agree with the current scribed note, I made few changes to the note using Italic font Clinical Quality Measures DVT/VTE Risk/Contraindication: Risk Factor Score Per Nursin RFS Level Per Nursing on Admit: 2=Moderate PORTIA NEUMANN Jul 26, 2019 8:17 am DIMPLE NOVOA MD Jul 26, 2019 1:23 pm
[2019-07-26] MEDS: ALLOPURINOL 100 MG (ZYLOPRIM) TAB PO SCH (08:49)
[2019-07-26] MEDS: PANTOPRAZOLE 40 MG (PROTONIX) TAB PO SCH (08:50)
[2019-07-26] MEDS: KCL 20 MEQ TAB (K-DUR) PO SCH ×2 (08:50→20:45)
[2019-07-26] MEDS: MIDODRINE 10 MG (PROAMATINE) TAB PO SCH ×2 (08:50→20:45)
[2019-07-26] MEDS: APIXABAN 2.5 MG (ELIQUIS) TABLET PO SCH ×2 (08:50→20:45)
[2019-07-26] MEDS: ACETAMINOPHEN 325 MG TABLET PO PRN (08:51)
[2019-07-26] MEDS: CLOPIDOGREL 75 MG (PLAVIX) TABLET PO SCH (08:51)
[2019-07-26] MEDS: TORSEMIDE 20 MG (DEMADEX) TAB PO SCH (08:52)
[2019-07-26] MEDS: VITAMIN D3 1,000 UNITS (CHOLECALCIFEROL) TABLET PO SCH (08:55)
[2019-07-26] MEDS: MEROPENEM 500 MG/SWFI 10 ML IV PUSH IV SCH ×4 (08:55→20:45)
[2019-07-26] MEDS: TRIAMCINOLONE 0.1% CR (KENALOG) 15 GM TUBE TP SCH ×3 (08:56→20:45)
--- NOTE | 2019-07-26 09:00 | NUR ---
insulin pump turned off Per MD order due to recurrent hypoglycemia
[2019-07-26] MEDS: D5W 1000 ML IV SOLUTION 1,000 ML IV SCH (09:41)
--- NOTE | 2019-07-26 10:12 | Progress Note - Hospitalist ---
Subjective HPI/CC On Admission Date Seen by Provider: Jul 26, 2019 Time Seen by Provider: 07:45 CC: Vertigo HPI: This is a very medically complex 79yoWF clinic patient of Dr Gonzales who also sees Dr Bauman for pacemaker and CAD and Dr Mann for insulin pump who presented to the ER with vertigo and high risk for falls. Dr Mcdonnell has been consulted. Insulin pump is being changed by her granddaughter at time of interview and she lives with the patient. Patient feels much better overall and is able to eat and drink. She is more concerned about the scraping of the skin lesions she has on her arms that Dr Gonzales has been treating than any other of her multiple issues. Kenalog cream will be restarted of her home supply and I told her I can't access the lab results that PCP had ordered to try to figure out what is causing the rash. She appears to have a skin condition attributed to DM and renal failure. She sees a kidney specialist in [place] but cannot remember her name and has been trying to change to Dr Simi Mcdonnell but can't seem to get well enough to get to her appt once it is scheduled. Subjective/Events-last exam Her main complaint today is the food is not good here. She thinks that's why her blood sugar is below. She does not want to take off her insulin pump. She denies any fevers or chills. She denies any nausea or vomiting. She denies any chest pain or shortness of breath. Objective Exam Vital Signs Vital Signs Date Time Temp Pulse Resp B/P (MAP) Pulse Ox O2 Delivery O2 Flow Rate FiO2 07/25/19 23:25 36.0 60 20 99/55 (70) 95 Room Air Capillary Refill : Less Than 3 SecondsLess Than 3 Seconds General Appearance: Obese HEENT: PERRL/EOMI, Pharynx Normal Neck: Normal Inspection, Supple Respiratory: Lungs Clear, Normal Breath Sounds Cardiovascular: Regular Rate, Rhythm, No Murmur Gastrointestinal: Normal Bowel Sounds, Non Tender, Soft Extremity: Normal Inspection, Non Tender, Pedal Edema Neurologic/Psychiatric: Alert, Other (Flat affect) Skin: Normal Color, Warm/Dry Results/Procedures Lab Laboratory Tests 07/26/19 06:38 Patient resulted labs reviewed. Assessment/Plan Assessment and Plan Assess & Plan/Chief Complaint Vertigo No further episodes since admission Cardiology following Possibly orthostasis due to urinary tract infection Possibly related to hypoglycemia Urinary tract infection Urine culture growing ESBL Escherichia coli and Pseudomonas Transitioned to [place] Type II diabetes mellitus with hypoglycemia Blood sugar low again this morning Insulin pump not removed yesterday, will remove today Begin sliding scale insulin Acute kidney injury on chronic kidney disease Creatinine 2.22 on admission, trended down to 1.99 today Baseline creatinine approximately 1.7 Likely contributing to hypoglycemia Paroxysmal atrial fibrillation Continue Eliquis Coronary artery disease Hyperlipidemia Continue Plavix and statin Diagnosis/Problems Diagnosis/Problems (1) Type 2 diabetes mellitus with hypoglycemia Status: Acute Qualifiers: Diabetes mellitus half-way insulin use: with half-way use Diabetes mellitus complication detail: without coma Qualified Codes: E11.649 - Type 2 diabetes mellitus with hypoglycemia without coma; Z79.4 - [facility] (current) use of insulin (2) Acute kidney injury superimposed on chronic kidney disease Status: Acute (3) UTI (urinary tract infection) Status: Acute Clinical Quality Measures DVT/VTE Risk/Contraindication: Risk Factor Score Per Nursin RFS Level Per Nursing on Admit: 2=Moderate CRIS WALDEN MD Jul 26, 2019 10:12
--- NOTE | 2019-07-26 12:06 | Physical Therapy Daily Note ---
PT Daily Note-Current Subjective Upon entering room, patient was very alert but reluctant to participate with PT. During session, patient acted lethargic and listless and became agitated. Mental Status Patient Orientation: Person, Time, Situation Attachments: IV Transfers SCALE: Activities may be completed with or without assistive devices. 0-Xgvgtvjgvi-rxsfwpz completes the activity by him/herself with no assistance from a helper. 5-Set-up or Clean-up Assistance-helper sets up or cleans up; patient completes a ctivity. [place] assists only prior to or following the activity. 4-Supervision or Touching Assistance-helper provides verbal cues and/or touching/steadying and/or contact guard assistance as patient completes activity. Assistance may be provided throughout the activity or intermittently. 3-Partial/Moderate Assistance-helper does LESS THAN HALF the effort. [place] lifts, holds or supports trunk or limbs, but provides less than half the effort. 2-Substantial/Maximal Assistance-helper does MORE THAN HALF the effort. [place] lifts or holds trunk or limbs and provides more than half the effort. 4-Sjowjgjkq-wcjksp does ALL the effort. Patient does none of the effort to complete the activity. Or, the assistance of 2 or more helpers is required for the patient to complete the activity. If activity was not attempted, code reason: 7-Patient Refused. 9-Not Applicable-not attempted and the patient did not perform the activity before the current illness, exacerbation or injury. 10-Not Attempted due to Environmental Limitations-(lack of equipment, weather restraints, etc.). 88-Not Attempted due to Medical Conditions or Safety Concerns. Roll Left & Right (QC): 3 Sit to Lying (QC): 3 Lying to Sitting/Side of Bed(Q: 3 Sit to Stand (QC): 3 Chair/Dah-sy-Kscem Xfer(QC): 3 Toilet Transfer (QC): 3 PT assist for toileting/cleansing and changing depends. Patient became very agitated/angry with PT request for patient to help with bed mobility activity. Gait Training Does the Patient Walk?: Yes Distance: 15' x 2 Walk 10 feet (QC): 3 Assessment Patient blood sugar taken due to patient's lethargic behavior, however, WFL of 91. Patient became increasingly agitated with PT secondary to PT request for patient to assist in her care and with bed mobility. DIFFERENTIAL TESTER and RN present to witness. PT [facility] Goals [employer] Goals PT [facility] Goals Time Frame: Aug 06, 2019 Roll Left & Right (QC): 5 Sit to Lying (QC): 5 Lying-Sitting on Side/Bed(QC): 5 Sit to Stand (QC): 5 Chair/Ixm-zk-Jbego Xfer(QC): 5 Toilet Transfer (QC): 5 Does the Patient Walk: Yes Walk 10 feet (QC): 5 PT Plan Treatment/Plan Treatment Plan: Continue Plan of Care Treatment Plan: Bed Mobility, Education, Functional Activity Sammie, Functional Strength, Gait, Safety, Therapeutic Exercise, Transfers Treatment Duration: Aug 06, 2019 Frequency: 6 times per week Estimated Hrs Per Day: .25 hour per day Patient and/or Family Agrees t: Yes Time/GCodes Time In: 1130 Time Out: 1153 Total Billed Treatment Time: 23 Total Billed Treatment 1 visit FA x 2 23 min WOODY STARKEY PT Jul 26, 2019 12:06
[2019-07-26 15:40] VITALS: BP 146/63
[2019-07-26] MEDS: hydrOXYzine (ATARAX) 10 MG TAB PO PRN (16:37)
[2019-07-26] MEDS: ONDANSETRON 4 MG/2 ML (SDV) Z0FRAN IV PRN (19:40)
[2019-07-26] MEDS: DIAZEPAM 5 MG (VALIUM) TABLET PO PRN (20:45)
[2019-07-26] MEDS: ROSUVASTATIN 20 MG (CRESTOR) TABLET PO SCH (20:45)
[2019-07-26] MEDS: DOCUSATE SODIUM 100 MG (COLACE) CAP PO SCH (20:45)
[2019-07-26 23:42] VITALS: BP 91/44
[2019-07-27] MEDS: CYANOCOBALAMIN 1,000 MCG (VITAMIN B-12) TABLET PO SCH (06:06)
[2019-07-27] MEDS: inSUlin ASPART (NovoLOG) 1 UNIT/0.01 ML (CHARGE PER UNIT) SC SCH ×4 (06:07→20:40)
[2019-07-27] MEDS: D5W 1000 ML IV SOLUTION 1,000 ML IV SCH (06:07)
[2019-07-27] MEDS: hydrOXYzine (ATARAX) 10 MG TAB PO PRN ×2 (06:11→21:05)
[2019-07-27 08:00] VITALS: BP 111/54
[2019-07-27] MEDS: MEROPENEM 500 MG/SWFI 10 ML IV PUSH IV SCH ×6 (08:15→20:56)
[2019-07-27] MEDS: KCL 20 MEQ TAB (K-DUR) PO SCH ×2 (08:15→20:55)
[2019-07-27] MEDS: CLOPIDOGREL 75 MG (PLAVIX) TABLET PO SCH (08:16)
[2019-07-27] MEDS: MIDODRINE 10 MG (PROAMATINE) TAB PO SCH ×2 (08:16→20:55)
[2019-07-27] MEDS: VITAMIN D3 1,000 UNITS (CHOLECALCIFEROL) TABLET PO SCH (08:16)
[2019-07-27] MEDS: TORSEMIDE 20 MG (DEMADEX) TAB PO SCH (08:16)
[2019-07-27] MEDS: APIXABAN 2.5 MG (ELIQUIS) TABLET PO SCH ×2 (08:16→20:55)
[2019-07-27] MEDS: PANTOPRAZOLE 40 MG (PROTONIX) TAB PO SCH (08:17)
[2019-07-27] MEDS: ALLOPURINOL 100 MG (ZYLOPRIM) TAB PO SCH (08:17)
[2019-07-27] MEDS: TRIAMCINOLONE 0.1% CR (KENALOG) 15 GM TUBE TP SCH ×2 (08:18→20:57)
--- NOTE | 2019-07-27 08:49 | Cardiology Progress Note ---
Subjective Date Seen by Provider: Jul 27, 2019 Time Seen by Provider: 08:45 Subjective/Events-last exam Patient is sitting up in chair eating breakfast. C/o fatigue. Denies any chest pain or dyspnea. Review of Systems General: No Chills, No Night Sweats; Fatigue, Malaise; No Appetite, No Other HEENT: No Head Aches, No Visual Changes, No Eye Pain, No Ear Pain, No Dysphasia, No Sinus Congestion, No Post Nasal Drip, No Sore Throat, No Other Pulmonary: No Dyspnea, No Cough, No Pleuritic Chest Pain, No Other Cardiovascular: No: Chest Pain, Palpitations, Orthopnea, Paroxysmal Noc. Dyspnea, Edema, Lt Headedness, Other Objective-Cardiology Exam Last Set of Vital Signs Vital Signs Capillary Refill : Less Than 3 SecondsLess Than 3 Seconds I&O Intake and Output 07/27/19 00:00 Intake Total 1950 ml Output Total 600 ml Balance 1350 ml Intake Oral 1950 ml Output Urine Total 600 ml # Voids 4 # Bowel Movements 1 # Emeses 2 General: Alert, Oriented X3, Cooperative, No Acute Distress HEENT: Atraumatic, PERRLA Neck: Supple, No JVD Lungs: Clear to Auscultation, Normal Air Movement Heart: Regular Rate, Normal S1, Normal S2, Other (systolic murmur) Abdomen: Normal Bowel Sounds, Soft Extremities: Other (+2 edema BLE) Skin: No Rashes, No Significant Lesion Neuro: Normal Speech, Cranial Nerves 3-12 NL Psych/Mental Status: Mental Status NL, Mood NL A/P-Cardiology Admission Diagnosis Generalized weakness CAD PVD PAF Assessment/Plan Generalized weakness/dizziness, patient reporting some improvement of her symptoms. History of chronic dizziness/lightheadedness. Borderline hypotensive, continue to monitor. Skin rash, questionable allergic reaction, will try to obtain copy of her medication and review any new medication she started in the past couple of months, she had a skin biopsy done by Dr. Gonzales Coronary artery disease, multiple interventions in the past, reports a total of 11 stents. Multivessel disease. Cardiac catheterization was done in October 2012 showing severe stenosis in the midright coronary artery had stent deployed 3.0x24 mm Promus Elements stent expanded to 3.18 mm in the right coronary artery. Severe stenosis in the proximal diagonal artery, very small artery not amendable to intervention. 60 percent in-stent restenosis in the mid circumflex artery, underwent another cardiac catheterization on November 19, [address] Burch, had a stent to the circumflex artery, the stent sizes was not described in the report. Cardiac catheterization done December 26, 2016 with balloon angioplasty to the mid circumflex for 80 percent in-stent restenosis. Patient was brought back the same day where she underwent repeat cardiac catheterization after having chest pain, underwent another balloon angioplasty and stent deployment in the distal circumflex artery for recoil of the in-stent restenosis with the use of a new stent, 3.5 x 18 mm Xience Alpine stent. Most recent cardiac catheterization on February 04, [address] Mcdonnell after having type II myocardial infarction which showed moderate multivessel coronary artery disease, had FFR 0.83 to the LAD and 0.91 to the left circumflex artery, treated conservatively. Peripheral arterial disease, history of nonhealing foot ulcer and stent done in 2016, cardiac catheterization done in September 2017 showing total occlusion of the left SFA with complex intervention and balloon angioplasty then drug-coated balloon 5 x 100 then deployment of a new stent Innova 6 x 150 from the ostium of the left SFA to the mid SFA overlapping with old stent with excellent results, mild to moderate disease at the popliteal artery and below the trifurcation with small vessel disease, mild to moderate disease at the right SFA. Underwent peripheral angiogram on September 02, [address] Sotomayor with left SFA popliteal atherectomy and angioplasty, left anterior tibial artery angioplasty with widely patent vessels following intervention. Currently asymptomatic. Continue to monitor Labile hypertension, hypotensive this morning, continue to monitor. UTI, ESBL- on antibiotics, management per PCP Chronic renal insufficiency, stage III renal disease, followed by Dr. Long, continue to monitor History of Intraocular hemorrhage in February 2019, underwent multiple laser procedure, follows with Dr. Hdez in [place] History of severe aortic valve stenosis s/p TAVR in April 2019, most recent 2D Echo done at May 2019 revealed prosthetic valve in aortic position functioning normally. Hyperlipidemia, patient reports intolerance to Lipitor, tolerating Crestor, continue to monitor lipids Diabetes mellitus, followed and managed by primary care physician. Sick sinus syndrome, history of permanent pacemaker placement. [employer] device, pacemaker checkup was done in May 2019 showing good sensing and capture activity, continue to monitor Carotid stenosis, history of right carotid endarterectomy. CTA of neck done on February 01, 2016 revealed no significant stenosis in the internal carotid arteries. Prominent focus of stenosis in the distal aspect of the left vertebral artery at the foramen magnum and level dominant right vertebral artery demonstrates no significant stenosis. Carotid ultrasound in April 2018 showed mild bilateral disease. Continue to monitor Paroxysmal atrial fibrillation, history of intolerance to amiodarone. Maintained on Eliquis. 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 followed by Dr. Palomino, currently in remission. Patient was seen and evaluated with Portia, examination performed, management plan was discussed, agree with the current scribed note, I made few changes to the note using Italic font Patient is still sleepy and complaining of fatigue and loss of energy. I'll start her on physical therapy and start exercise program Decrease Valium dose and monitor tolerance Continue to monitor blood pressure Receiving antibiotic for her UTI. Clinical Quality Measures DVT/VTE Risk/Contraindication: Risk Factor Score Per Nursin RFS Level Per Nursing on Admit: 2=Moderate Supervisory-Addendum Brief Supervisory Addendum Participated in pt care: history, MDM, physical Personally performed: exam, history, MDM Care discussed with: PORTIA SANTOS Jul 27, 2019 08:49 DIMPLE NOVOA MD Jul 27, 2019 13:05
[2019-07-27] MEDS ORDERED: TRIAMCINOLONE 0.1% CR (KENALOG) 15 GM TUBE TOP SCH (09:00)
--- NOTE | 2019-07-27 11:46 | Physical Therapy Daily Note ---
PT Daily Note-Current Subjective Patient on commode pre tx, agrees to PT, has no complaints of pain. A female student PT helps to wipe patient when she is done and pull up her brief. Appearance Patient in recliner post tx with nurse call, phone, tray, all needs met. Mental Status Patient Orientation: Person Transfers SCALE: Activities may be completed with or without assistive devices. 8-Kdkvrtsstk-poghvvu completes the activity by him/herself with no assistance from a helper. 5-Set-up or Clean-up Assistance-helper sets up or cleans up; patient completes activity. [place] assists only prior to or following the activity. 4-Supervision or Touching Assistance-helper provides verbal cues and/or touching/steadying and/or contact guard assistance as patient completes activity. Assistance may be provided throughout the activity or intermittently. 3-Partial/Moderate Assistance-helper does LESS THAN HALF the effort. [place] lifts, holds or supports trunk or limbs, but provides less than half the effort. 2-Substantial/Maximal Assistance-helper does MORE THAN HALF the effort. [place] lifts or holds trunk or limbs and provides more than half the effort. 0-Lrjuaobjx-douppw does ALL the effort. Patient does none of the effort to complete the activity. Or, the assistance of 2 or more helpers is required for the patient to complete the activity. If activity was not attempted, code reason: 7-Patient Refused. 9-Not Applicable-not attempted and the patient did not perform the activity before the current illness, exacerbation or injury. 10-Not Attempted due to Environmental Limitations-(lack of equipment, weather restraints, etc.). 88-Not Attempted due to Medical Conditions or Safety Concerns. Sit to Stand (QC): 3 Chair/Ttn-nj-Nqtgg Xfer(QC): 3 Mod assist for sit to stand, min assist for transfer. Gait Training Distance: 3' Gait Persons Needed: 1 Gait Assistive Device: FWW Patient had difficulty ambulating just a few feet to the recliner due to fatigue, she was in a sparks to sit and her safety suffered as a result, she tried to sit before turning completely and needed cues for hand placement on the armrest. Exercises Seated Therapy Exercises: Ankle pumps, Long arc quads, Hip flexion Seated Reps: 15 Treatments transfers, toileting, ambulation, LE exercise Assessment Current Status: Poor Progress less ambulation due to fatigue, patient states she barely slept last night PT Web Designer Developer Goals Web Designer Developer Goals PT Web Designer Developer Goals Time Frame: Aug 06, 2019 Roll Left & Right (QC): 5 Sit to Lying (QC): 5 Lying-Sitting on Side/Bed(QC): 5 Sit to Stand (QC): 5 Chair/Orn-wh-Krfrb Xfer(QC): 5 Toilet Transfer (QC): 5 Does the Patient Walk: Yes Walk 10 feet (QC): 5 PT Plan Problem List Problem List: Activity Tolerance, Functional Strength, Safety, Balance, Gait, Transfer, Bed Mobility, ROM Treatment/Plan Treatment Plan: Continue Plan of Care Treatment Plan: Bed Mobility, Education, Functional Activity Sammie, Functional Strength, Gait, Safety, Therapeutic Exercise, Transfers Treatment Duration: Aug 06, 2019 Frequency: 6 times per week Estimated Hrs Per Day: .25 hour per day Patient and/or Family Agrees t: Yes Safety Risks/Education Patient Education: Gait Training, Transfer Techniques, Correct Positioning, Safety Issues Teaching Recipient: Patient Teaching Methods: Demonstration, Discussion Response to Teaching: Reinforcement Needed Time/GCodes Time In: 1132 Time Out: 1147 Total Billed Treatment Time: 15 Total Billed Treatment 1 visit FA JAIME HERNANDEZ PT Jul 27, 2019 11:46
--- NOTE | 2019-07-27 15:27 | Progress Note - Hospitalist ---
Subjective HPI/CC On Admission Date Seen by Provider: Jul 27, 2019 Time Seen by Provider: 09:20 CC: Vertigo HPI: This is a very medically complex 79yoWF clinic patient of Dr Gonzales who also sees Dr Bauman for pacemaker and CAD and Dr Mann for insulin pump who presented to the ER with vertigo and high risk for falls. Dr Mcdonnell has been consulted. Insulin pump is being changed by her granddaughter at time of interview and she lives with the patient. Patient feels much better overall and is able to eat and drink. She is more concerned about the scraping of the skin lesions she has on her arms that Dr Gonzales has been treating than any other of her multiple issues. Kenalog cream will be restarted of her home supply and I told her I can't access the lab results that PCP had ordered to try to figure out what is causing the rash. She appears to have a skin condition attributed to DM and renal failure. She sees a kidney specialist in [place] but cannot remember her name and has been trying to change to Dr Simi Mcdonnell but can't seem to get well enough to get to her appt once it is scheduled. Subjective/Events-last exam She denies any complaints or concerns this morning. She denies any fevers or chills. She denies any lightheadedness or dizziness. She denies any chest pain or shortness of breath. She denies any abdominal pain, nausea, or vomiting. Objective Exam Vital Signs Vital Signs Date Time Temp Pulse Resp B/P (MAP) Pulse Ox O2 Delivery O2 Flow Rate FiO2 07/27/19 08:00 35.8 65 16 111/54 (73) 97 Room Air Capillary Refill : Less Than 3 SecondsLess Than 3 Seconds General Appearance: No Apparent Distress, WD/WN, Obese HEENT: PERRL/EOMI, Pharynx Normal Neck: Normal Inspection, Supple Respiratory: Lungs Clear, Normal Breath Sounds, No Respiratory Distress Cardiovascular: Regular Rate, Rhythm, No Murmur Gastrointestinal: Normal Bowel Sounds, Non Tender, Soft Extremity: Normal Inspection, Non Tender, Pedal Edema Neurologic/Psychiatric: Alert, Oriented x3, No Motor/Sensory Deficits, Normal Mood/Affect Skin: Normal Color, Warm/Dry Results/Procedures Lab Patient resulted labs reviewed. Assessment/Plan Assessment and Plan Assess & Plan/Chief Complaint Urinary tract infection Urine culture growing ESBL Escherichia coli and Pseudomonas Continue Merrem Planning to transition to swing bed for IV antibiotics Type II diabetes mellitus with hypoglycemia Insulin pump removed Begin Levemir Continue sliding scale, increased to B Acute kidney injury on chronic kidney disease Continue to monitor Vertigo No further episodes since admission Cardiology following Possibly orthostasis due to urinary tract infection Likely related to hypoglycemia Paroxysmal atrial fibrillation Continue Eliquis Coronary artery disease Hyperlipidemia Continue Plavix and statin Diagnosis/Problems Diagnosis/Problems (1) ESBL (extended spectrum beta-lactamase) producing bacteria infection Status: Acute (2) UTI (urinary tract infection) Status: Acute (3) Type 2 diabetes mellitus with hypoglycemia Status: Acute Qualifiers: 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
[2019-07-27] MEDS ORDERED: DIAZEPAM 5 MG (VALIUM) TABLET PO PRN (15:45)
[2019-07-27 16:00] VITALS: BP 132/59
--- NOTE | 2019-07-27 16:42 | NUR ---
Swing Bed Note: Qualifies for swing bed for continued need of IV abx for resistant UTI. Continued Physical et Occupational therapies to maximize her level of function at discharge. Prior to this hospitalization she was minimal assist x1 for ADL's. Anticipate admission to swing bed tomorrow 07/28/19 a.m. Thank you for this referral!
[2019-07-27] MEDS: DOCUSATE SODIUM 100 MG (COLACE) CAP PO SCH (20:55)
[2019-07-27] MEDS: ROSUVASTATIN 20 MG (CRESTOR) TABLET PO SCH (20:55)
[2019-07-27] MEDS: ESTROGENS CONJ. CREAM 30 GM (PREMARIN) TUBE VG SCH ×2 (20:57→21:01)
[2019-07-28 00:40] VITALS: BP 109/62
[2019-07-28] MEDS: inSUlin ASPART (NovoLOG) 1 UNIT/0.01 ML (CHARGE PER UNIT) SC SCH ×4 (04:56→21:24)
[2019-07-28] MEDS: MEROPENEM 500 MG/SWFI 10 ML IV PUSH IV SCH ×4 (05:06→17:29)
[2019-07-28] MEDS: CYANOCOBALAMIN 1,000 MCG (VITAMIN B-12) TABLET PO SCH (05:07)
[2019-07-28 06:48] LABS: BASOPHILS # (AUTO) 0.1 10^3/uL (0.0-0.1); BASOPHILS % (AUTO) 1 % (0-10); EOSINOPHILS # (AUTO) 0.3 10^3/uL (0.0-0.3); EOSINOPHILS % (AUTO) 5 % (0-10); HEMATOCRIT 30 % (35-52); HEMOGLOBIN 8.6 G/DL (11.5-16.0); LYMPHOCYTES # (AUTO) 2.1 X 10^3 (1.0-4.0); LYMPHOCYTES % (AUTO) 34 % (12-44); MEAN CORPUSCULAR HEMOGLOBIN 18 PG (25-34); MEAN CORPUSCULAR HGB CONC 29 G/DL (32-36); MEAN CORPUSCULAR VOLUME 64 FL (80-99); MEAN PLATELET VOLUME 10.4 FL (7.4-10.4); MONOCYTES # (AUTO) 0.8 X 10^3 (0.0-1.0); MONOCYTES % (AUTO) 14 % (0-12); NEUTROPHILS # (AUTO) 2.8 X 10^3 (1.8-7.8); NEUTROPHILS % (AUTO) 46 % (42-75); PLATELET COUNT 195 10^3/uL (130-400); RED CELL DISTRIBUTION WIDTH 22.1 % (10.0-14.5)
[2019-07-28 07:08] LABS: CALCIUM 8.9 MG/DL (8.5-10.1); CREATININE SERUM 2.14 MG/DL (0.60-1.30); POTASSIUM 4.2 MMOL/L (3.6-5.0)
[2019-07-28 08:00] VITALS: BP 141/62
--- NOTE | 2019-07-28 08:22 | Cardiology Progress Note ---
Subjective Date Seen by Provider: Jul 28, 2019 Time Seen by Provider: 08:19 Subjective/Events-last exam Patient is sitting up in bed, doing well. Denies any chest pain or dyspnea. Review of Systems General: No Chills, No Night Sweats; Fatigue, Malaise; No Appetite, No Other HEENT: No Head Aches, No Visual Changes, No Eye Pain, No Ear Pain, No Dysphasia, No Sinus Congestion, No Post Nasal Drip, No Sore Throat, No Other Pulmonary: No Dyspnea, No Cough, No Pleuritic Chest Pain, No Other Cardiovascular: No: Chest Pain, Palpitations, Orthopnea, Paroxysmal Noc. Dyspnea, Edema, Lt Headedness, Other Objective-Cardiology Exam Last Set of Vital Signs Vital Signs 07/28/19 00:40 Temp 36.1 Pulse 66 Resp 20 B/P (MAP) 109/62 (78) Pulse Ox 98 O2 Delivery Room Air Capillary Refill : Less Than 3 SecondsLess Than 3 Seconds I&O Intake and Output 07/28/19 00:00 Intake Total 2310 ml Output Total 950 ml Balance 1360 ml Intake Oral 2310 ml Output Urine Total 950 ml # Voids 9 # Bowel Movements 1 General: Alert, Oriented X3, Cooperative, No Acute Distress HEENT: Atraumatic, PERRLA Neck: Supple, No JVD Lungs: Clear to Auscultation, Normal Air Movement Heart: Regular Rate, Normal S1, Normal S2, Other (systolic murmur) Abdomen: Normal Bowel Sounds, Soft Extremities: Other (+2 edema BLE) Skin: No Rashes, No Significant Lesion Neuro: Normal Speech, Cranial Nerves 3-12 NL Psych/Mental Status: Mental Status NL, Mood NL Results Lab Laboratory Tests 07/28/19 05:51 A/P-Cardiology Admission Diagnosis Generalized weakness CAD PVD PAF Assessment/Plan Generalized weakness/dizziness, improved at this time. History of chronic dizziness/lightheadedness. Skin rash, questionable allergic reaction, will try to obtain copy of her medication and review any new medication she started in the past couple of months, she had a skin biopsy done by Dr. Gonzales Coronary artery disease, multiple interventions in the past, reports a total of 11 stents. Multivessel disease. Cardiac catheterization was done in October 2012 showing severe stenosis in the midright coronary artery had stent deployed 3.0x24 mm Promus Elements stent expanded to 3.18 mm in the right coronary artery. Severe stenosis in the proximal diagonal artery, very small artery not amendable to intervention. 60 percent in-stent restenosis in the mid circumflex artery, underwent another cardiac catheterization on November 19, [address] Burch, had a stent to the circumflex artery, the stent sizes was not described in the report. Cardiac catheterization done December 26, 2016 with balloon angioplasty to the mid circumflex for 80 percent in-stent restenosis. Patient was brought back the same day where she underwent repeat cardiac catheterization after having chest pain, underwent another balloon angioplasty and stent deployment in the distal circumflex artery for recoil of the in-stent restenosis with the use of a new stent, 3.5 x 18 mm Xience Alpine stent. Most recent cardiac catheterization on February 04, [address] Mcdonnell after having type II myocardial infarction which showed moderate multivessel coronary artery disease, had FFR 0.83 to the LAD and 0.91 to the left circumflex artery, treated conservatively. Peripheral arterial disease, history of nonhealing foot ulcer and stent done in 2016, cardiac catheterization done in September 2017 showing total occlusion of the left SFA with complex intervention and balloon angioplasty then drug-coated balloon 5 x 100 then deployment of a new stent Innova 6 x 150 from the ostium of the left SFA to the mid SFA overlapping with old stent with excellent results, mild to moderate disease at the popliteal artery and below the trifurcation with small vessel disease, mild to moderate disease at the right SFA. Underwent peripheral angiogram on September 02, [address] Sotomayor with left SFA popliteal atherectomy and angioplasty, left anterior tibial artery angioplasty with widely patent vessels following intervention. Currently asymptomatic. Continue to monitor Labile hypertension, continue to monitor blood pressure. UTI, ESBL- on antibiotics, management per PCP Chronic renal insufficiency, stage III renal disease, followed by Dr. Long, continue to monitor History of Intraocular hemorrhage in February 2019, underwent multiple laser procedure, follows with Dr. Hdez in [place] History of severe aortic valve stenosis s/p TAVR in April 2019, most recent 2D Echo done at May 2019 revealed prosthetic valve in aortic position functioning normally. Hyperlipidemia, patient reports intolerance to Lipitor, tolerating Crestor, continue to monitor lipids Diabetes mellitus, followed and managed by primary care physician. Sick sinus syndrome, history of permanent pacemaker placement. [employer] device, pacemaker checkup was done in May 2019 showing good sensing and capture activity, continue to monitor Carotid stenosis, history of right carotid endarterectomy. CTA of neck done on February 01, 2016 revealed no significant stenosis in the internal carotid arteries. Prominent focus of stenosis in the distal aspect of the left vertebral artery at the foramen magnum and level dominant right vertebral artery demonstrates no significant stenosis. Carotid ultrasound in April 2018 showed mild bilateral disease. Continue to monitor Paroxysmal atrial fibrillation, history of intolerance to amiodarone. Maintained on Eliquis. 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 followed by Dr. Palomino, currently in remission. Patient was seen and evaluated with Portia, examination performed, management plan was discussed, agree with the current scribed note, I made few changes to the note using Italic font Patient is feeling better today, having more energy. Could be secondary to de creasing the dose of Valium or improvement in her infection Still having the rash and itching Lungs were clear to auscultation, heart is regular Continue to monitor. Continue current medications Clinical Quality Measures DVT/VTE Risk/Contraindication: Risk Factor Score Per Nursin RFS Level Per Nursing on Admit: 2=Moderate PORTIA NEUMANN Jul 28, 2019 08:21 DIMPLE NOVOA MD Jul 28, 2019 09:07
[2019-07-28] MEDS: MIDODRINE 10 MG (PROAMATINE) TAB PO SCH ×2 (08:45→21:24)
[2019-07-28] MEDS: KCL 20 MEQ TAB (K-DUR) PO SCH ×2 (08:46→21:24)
[2019-07-28] MEDS: PANTOPRAZOLE 40 MG (PROTONIX) TAB PO SCH (08:46)
[2019-07-28] MEDS: CLOPIDOGREL 75 MG (PLAVIX) TABLET PO SCH (08:46)
[2019-07-28] MEDS: TORSEMIDE 20 MG (DEMADEX) TAB PO SCH (08:47)
[2019-07-28] MEDS: VITAMIN D3 1,000 UNITS (CHOLECALCIFEROL) TABLET PO SCH (08:47)
[2019-07-28] MEDS: ALLOPURINOL 100 MG (ZYLOPRIM) TAB PO SCH (08:48)
[2019-07-28] MEDS: APIXABAN 2.5 MG (ELIQUIS) TABLET PO SCH ×2 (08:48→21:24)
[2019-07-28] MEDS: TRIAMCINOLONE 0.1% CR (KENALOG) 15 GM TUBE TP SCH ×2 (08:49→21:24)
--- NOTE | 2019-07-28 13:32 | Physical Therapy Daily Note ---
PT Daily Note-Current Subjective Pt. agreeable to therapy after she goes to the bathroom. After going to the bathroom patient refused to walk anymore. Patient verbalized no pain at this time. Appearance Patient in bed with bedside table and call within reach. Mental Status Patient Orientation: Normal For Age Transfers SCALE: Activities may be completed with or without assistive devices. 9-Edduzcqefr-biskygm completes the activity by him/herself with no assistance from a helper. 5-Set-up or Clean-up Assistance-helper sets up or cleans up; patient completes activity. [place] assists only prior to or following the activity. 4-Supervision or Touching Assistance-helper provides verbal cues and/or touching/steadying and/or contact guard assistance as patient completes activity. Assistance may be provided throughout the activity or intermittently. 3-Partial/Moderate Assistance-helper does LESS THAN HALF the effort. [place] lifts, holds or supports trunk or limbs, but provides less than half the effort. 2-Substantial/Maximal Assistance-helper does MORE THAN HALF the effort. [place] lifts or holds trunk or limbs and provides more than half the effort. 1-Wunrhtkes-vpwiaw does ALL the effort. Patient does none of the effort to complete the activity. Or, the assistance of 2 or more helpers is required for the patient to complete the activity. If activity was not attempted, code reason: 7-Patient Refused. 9-Not Applicable-not attempted and the patient did not perform the activity before the current illness, exacerbation or injury. 10-Not Attempted due to Environmental Limitations-(lack of equipment, weather restraints, etc.). 88-Not Attempted due to Medical Conditions or Safety Concerns. Sit to Lying (QC): 3 Sit to Stand (QC): 4 Chair/Adb-ts-Tmnas Xfer(QC): 4 Toilet Transfer (QC): 4 To get into bed patient needed assistance with her legs. Patient able to toilet IND except for pulling up brief. Weight Bearing Right Lower Extremity: Right Weight Bearing/Tolerated Left Lower Extremity: Left Weight Bearing/Tolerated Gait Training Does the Patient Walk?: Yes Distance: 10'x 2 Walk 10 feet (QC): 4 Gait Persons Needed: 1 Gait Assistive Device: FWW Patient walked to and from the bathroom and refused to walk any further due to fatigue. Wheelchair Training Does the Pt Use a Wheelchair?: No Exercises Seated Therapy Exercises: Ankle pumps, Long arc quads, Hip flexion Seated Reps: 15 Treatments Toilet transfer, ambulation, exercises Assessment Current Status: Fair Progress Patient was steady while walking to the bathroom but after toileting refused to walk any further due to fatigue. PT Longterm Goals Digital Production Operator Goals PT Digital Production Operator Goals Time Frame: Aug 06, 2019 Roll Left & Right (QC): 5 Sit to Lying (QC): 5 Lying-Sitting on Side/Bed(QC): 5 Sit to Stand (QC): 5 Chair/Ztx-jr-Rgegj Xfer(QC): 5 Toilet Transfer (QC): 5 Does the Patient Walk: Yes Walk 10 feet (QC): 5 PT Plan Problem List Problem List: Activity Tolerance, Functional Strength, Safety, Balance, Gait, Transfer, Bed Mobility Treatment/Plan Treatment Plan: Continue Plan of Care Treatment Plan: Bed Mobility, Education, Functional Activity Sammie, Functional Strength, Gait, Safety, Therapeutic Exercise, Transfers Treatment Duration: Aug 06, 2019 Frequency: 6 times per week Estimated Hrs Per Day: .25 hour per day Patient and/or Family Agrees t: Yes Safety Risks/Education Patient Education: Gait Training, Transfer Techniques Teaching Recipient: Patient Teaching Methods: Discussion Response to Teaching: Reinforcement Needed Time/GCodes Time In: 1254 Time Out: 1307 Total Billed Treatment Time: 13 Total Billed Treatment 1 visit FA (13 minutes) WOODY STARKEY PT Jul 28, 2019 13:32
[2019-07-28] MEDS: hydrOXYzine (ATARAX) 10 MG TAB PO PRN (14:04)
[2019-07-28 16:00] VITALS: BP 126/63
--- NOTE | 2019-07-28 17:24 | Progress Note - Hospitalist ---
Subjective HPI/CC On Admission Date Seen by Provider: Jul 28, 2019 Time Seen by Provider: 09:05 CC: Vertigo HPI: This is a very medically complex 79yoWF clinic patient of Dr Gonzales who also sees Dr Bauman for pacemaker and CAD and Dr Mann for insulin pump who presented to the ER with vertigo and high risk for falls. Dr Mcdonnell has been consulted. Insulin pump is being changed by her granddaughter at time of interview and she lives with the patient. Patient feels much better overall and is able to eat and drink. She is more concerned about the scraping of the skin lesions she has on her arms that Dr Gonzales has been treating than any other of her multiple issues. Kenalog cream will be restarted of her home supply and I told her I can't access the lab results that PCP had ordered to try to figure out what is causing the rash. She appears to have a skin condition attributed to DM and renal failure. She sees a kidney specialist in [place] but cannot remember her name and has been trying to change to Dr Simi Mcdonnell but can't seem to get well enough to get to her appt once it is scheduled. Subjective/Events-last exam She is complaining about her rash this morning. She denies fevers and chills. She denies chest pain and dyspnea. She denies abdominal pain, nausea, and vomiting. Objective Exam Vital Signs Vital Signs Date Time Temp Pulse Resp B/P (MAP) Pulse Ox O2 Delivery O2 Flow Rate FiO2 07/28/19 08:00 35.7 70 16 141/62 (88) 93 Room Air Capillary Refill : Less Than 3 SecondsLess Than 3 Seconds General Appearance: No Apparent Distress, Obese HEENT: PERRL/EOMI, Pharynx Normal Neck: Normal Inspection, Supple Respiratory: Lungs Clear, Normal Breath Sounds, No Respiratory Distress Cardiovascular: Regular Rate, Rhythm, No Edema, No Murmur Gastrointestinal: Normal Bowel Sounds, Non Tender, Soft Extremity: Normal Inspection, Non Tender, Pedal Edema Neurologic/Psychiatric: Alert, Oriented x3, No Motor/Sensory Deficits, Normal Mood/Affect Skin: Rash Results/Procedures Lab Laboratory Tests 07/28/19 05:51 Patient resulted labs reviewed. Assessment/Plan Assessment and Plan Assess & Plan/Chief Complaint Urinary tract infection Urine culture growing ESBL Escherichia coli and Pseudomonas Continue Merrem Planning to transition to swing bed for IV antibiotics Type II diabetes mellitus with hypoglycemia Insulin pump removed Continue Levemir SSI Acute kidney injury on chronic kidney disease Continue to monitor Vertigo No further episodes since admission Cardiology following Possibly orthostasis due to urinary tract infection Likely related to hypoglycemia Paroxysmal atrial fibrillation Continue Eliquis Coronary artery disease Hyperlipidemia Continue Plavix and statin Diagnosis/Problems Diagnosis/Problems (1) ESBL (extended spectrum beta-lactamase) producing bacteria infection Status: Acute (2) UTI (urinary tract infection) Status: Acute (3) Type 2 diabetes mellitus with hypoglycemia Status: Acute Qualifiers: Diabetes mellitus usp insulin use: with long distance operator use Diabetes mellitus complication detail: without coma Qualified Codes: E11.649 - Type 2 diabetes mellitus with hypoglycemia without coma; Z79.4 - detention (current) use of insulin (4) Acute kidney injury superimposed on chronic kidney disease Status: Acute Clinical Quality Measures DVT/VTE Risk/Contraindication: Risk Factor Score Per Nursin RFS Level Per Nursing on Admit: 2=Moderate CRIS WALDEN MD Jul 28, 2019 17:24
[2019-07-28] MEDS: ROSUVASTATIN 20 MG (CRESTOR) TABLET PO SCH (21:24)
[2019-07-28] MEDS: DOCUSATE SODIUM 100 MG (COLACE) CAP PO SCH (21:24)
[2019-07-29] VITALS: BP 136/60
[2019-07-29] MEDS: inSUlin ASPART (NovoLOG) 1 UNIT/0.01 ML (CHARGE PER UNIT) SC SCH ×3 (05:45→11:32)
[2019-07-29] MEDS: CYANOCOBALAMIN 1,000 MCG (VITAMIN B-12) TABLET PO SCH (06:37)
[2019-07-29] MEDS: MEROPENEM 500 MG/SWFI 10 ML IV PUSH IV SCH ×2 (06:37)
[2019-07-29] MEDS: TRIAMCINOLONE 0.1% CR (KENALOG) 15 GM TUBE TP SCH (06:38)
[2019-07-29] MEDS: TORSEMIDE 20 MG (DEMADEX) TAB PO SCH (08:02)
[2019-07-29] MEDS: APIXABAN 2.5 MG (ELIQUIS) TABLET PO SCH (08:03)
[2019-07-29] MEDS: VITAMIN D3 1,000 UNITS (CHOLECALCIFEROL) TABLET PO SCH (08:03)
[2019-07-29] MEDS: ALLOPURINOL 100 MG (ZYLOPRIM) TAB PO SCH (08:03)
[2019-07-29] MEDS: MIDODRINE 10 MG (PROAMATINE) TAB PO SCH (08:03)
[2019-07-29] MEDS: KCL 20 MEQ TAB (K-DUR) PO SCH (08:04)
[2019-07-29] MEDS: PANTOPRAZOLE 40 MG (PROTONIX) TAB PO SCH (08:04)
[2019-07-29] MEDS: CLOPIDOGREL 75 MG (PLAVIX) TABLET PO SCH (08:04)
[2019-07-29 08:28] VITALS: BP 129/56
--- NOTE | 2019-07-29 09:30 | Physical Therapy Daily Note ---
PT Daily Note-Current Subjective Patient states she is willing to walk as long as she can go to the bathroom first. Patient reports no pain at this time. Appearance Patient left in bed with call light and bedside table within reach. Patient refuses sitting in recliner because she did not get much sleep last night. Mental Status Patient Orientation: Person, Place, Time, Situation Transfers SCALE: Activities may be completed with or without assistive devices. 6-Jrhpkwzjux-yjrjvqp completes the activity by him/herself with no assistance from a helper. 5-Set-up or Clean-up Assistance-helper sets up or cleans up; patient completes activity. [place] assists only prior to or following the activity. 4-Supervision or Touching Assistance-helper provides verbal cues and/or touching/steadying and/or contact guard assistance as patient completes activity. Assistance may be provided throughout the activity or intermittently. 3-Partial/Moderate Assistance-helper does LESS THAN HALF the effort. [place] lifts, holds or supports trunk or limbs, but provides less than half the effort. 2-Substantial/Maximal Assistance-helper does MORE THAN HALF the effort. [place] lifts or holds trunk or limbs and provides more than half the effort. 1-Lwzdrleac-eyanpf does ALL the effort. Patient does none of the effort to complete the activity. Or, the assistance of 2 or more helpers is required for the patient to complete the activity. If activity was not attempted, code reason: 7-Patient Refused. 9-Not Applicable-not attempted and the patient did not perform the activity before the current illness, exacerbation or injury. 10-Not Attempted due to Environmental Limitations-(lack of equipment, weather restraints, etc.). 88-Not Attempted due to Medical Conditions or Safety Concerns. Roll Left & Right (QC): 5 Sit to Lying (QC): 3 Lying to Sitting/Side of Bed(Q: 3 Sit to Stand (QC): 4 Toilet Transfer (QC): 3 Patient needed assistance with toilet hygiene and donning/doffing brief. . Weight Bearing Right Lower Extremity: Right Weight Bearing/Tolerated Left Lower Extremity: Left Weight Bearing/Tolerated Gait Training Does the Patient Walk?: Yes Distance: 20' Walk 10 feet (QC): 4 Gait Persons Needed: 1 Gait Assistive Device: FWW Patient willing to walk around room but refuses to walk any further than that. Wheelchair Training Does the Pt Use a Wheelchair?: No Exercises Seated Therapy Exercises: Ankle pumps, Long arc quads Seated Reps: 10 Treatments Ambulation, exercises. Assessment Current Status: Fair Progress Patient was willing to do more today. She was fairly stable during ambulation but due to weakness requires skilled services to safely ambulate. PT Curator [employer] Goals Half-Way Goals PT Curator [employer] Goals Time Frame: Aug 06, 2019 Roll Left & Right (QC): 5 Sit to Lying (QC): 5 Lying-Sitting on Side/Bed(QC): 5 Sit to Stand (QC): 5 Chair/Cap-un-Yknmm Xfer(QC): 5 Toilet Transfer (QC): 5 Does the Patient Walk: Yes Walk 10 feet (QC): 5 PT Plan Problem List Problem List: Activity Tolerance, Functional Strength, Safety, Balance, Gait, Transfer, Bed Mobility Treatment/Plan Treatment Plan: Continue Plan of Care Treatment Plan: Bed Mobility, Education, Functional Activity Sammie, Functional Strength, Gait, Safety, Therapeutic Exercise, Transfers Treatment Duration: Aug 06, 2019 Frequency: 6 times per week Estimated Hrs Per Day: .25 hour per day Patient and/or Family Agrees t: Yes Safety Risks/Education Patient Education: Gait Training, Transfer Techniques Teaching Recipient: Patient Teaching Methods: Discussion Response to Teaching: Reinforcement Needed Time/GCodes Time In: 828 Time Out: 840 Total Billed Treatment Time: 12 Total Billed Treatment 1 visit FA (12 minutes) WOODY STARKEY PT Jul 29, 2019 09:29
[2019-07-29] MEDS ORDERED: inSUlin ASPART (NovoLOG) 1 UNIT/0.01 ML (CHARGE PER UNIT) SC SCH (12:00)
--- NOTE | 2019-07-29 14:06 | Discharge Summary ---
Discharge Summary Hospital Course Was the Problem List Reviewed?: Yes Problems/Dx: (1) ESBL (extended spectrum beta-lactamase) producing bacteria infection Status: Acute (2) UTI (urinary tract infection) Status: Acute (3) Type 2 diabetes mellitus with hypoglycemia Status: Acute Qualifiers: Qualified Codes: E11.649 - Type 2 diabetes mellitus with hypoglycemia without coma; Z79.4 - computer terminal operator (current) use of insulin (4) Acute kidney injury superimposed on chronic kidney disease Status: Acute Hospital Course Date of Admission: Jul 25, 2019 at 13:00 Admission Diagnosis : vertigo Family Physician/Provider: Joe Robertson MD Date of Discharge: 07/29/19 Discharge Diagnosis: urinary tract infection, type II diabetes mellitus with hypoglycemia Hospital Course: Shamika Cain is an 79-year-old female who presented with vertigo. Her workup revealed that she had an ESBL urinary tract infection. She was started on meropenem. Her course was complicated by hypoglycemia. Her insulin pump was removed and she was transitioned to subcutaneous insulin. Her hypoglycemia improved with these changes. Her presenting symptom of vertigo was thought to be due to hypoglycemia and dehydration. Her course was also complicated by an acute kidney injury superimposed on chronic kidney disease. Her infection and kidney injury thought to be contributing to her hypoglycemia. She was transitioned to swing bed status for ongoing intravenous antibiotics. Labs and Pending Lab Test: Laboratory Tests 07/28/19 16:39: Glucometer 236H 07/28/19 20:30: Glucometer 206H 07/29/19 05:02: Glucometer 88 07/29/19 10:42: Glucometer 259H Microbiology 07/23/19 Urine Culture - Final, Complete Escherichia coli Pseudomonas aeruginosa Home Meds Active Reported Lynne Allergy (Fexofenadine HCl) 180 Mg Tablet 180 Mg PO BID PRN Benadryl Allergy (Diphenhydramine HCl) 25 Mg Tablet 25 Mg PO Q6H PRN Hydroxyzine HCl 25 Mg Tablet 25 Mg PO TID PRN Triamcinolone Acetonide 0.1% Cream (Triamcinolone Acet) 15 Gm Cr 1 Applic TP BID Metoprolol Succinate 25 Mg Tab.er.24h 12.5 Mg PO DAILY TAKES 1/2 (25MG) TABLET Torsemide 100 Mg Tablet 50 Mg PO DAILY TAKES 1/2 (100MG) TABLET Eliquis (Apixaban) 5 Mg Tablet 2.5 Mg PO BID TAKES 1/2 (5MG) TABLET Zofran (Ondansetron HCl) 4 Mg Tab 4 Mg PO Q6H PRN Colace (Docusate Sodium) 100 Mg Capsule 100 Mg PO HS Pantoprazole Sodium 40 Mg Tablet.dr 40 Mg PO DAILY Potassium Chloride 20 Meq Tablet.er 20 Meq PO BID Acetaminophen 325 Mg Tablet 650 Mg PO Q4H PRN Vitamin B-12 (Cyanocobalamin (Vitamin B-12)) 500 Mcg Tablet 1,000 Mcg PO DAILY Midodrine HCl 10 Mg Tablet 10 Mg PO BID Allopurinol 100 Mg Tablet 100 Mg PO DAILY Vitamin D3 (Cholecalciferol (Vitamin D3)) 5,000 Unit Capsule 5,000 Unit PO DAILY Premarin (Estrogens Conjugated) 30 Gm Cr VG MOWEFR Rosuvastatin Calcium 20 Mg Tablet 20 Mg PO HS Victoza 2-Luis Enrique (Liraglutide) 0.6 Mg/0.1 Ml Pen.injctr 1.2 Mg SC HS Clopidogrel (Clopidogrel Bisulfate) 75 Mg Tablet 75 Mg PO DAILY Novolog (Insulin Aspart) 100 Unit/1 Ml Susp PER INSULIN PUMP MDD 100 UNITS PER DAY Assessment/Pt Instructions Transferred to [facility] bed. Discharge Planning: >30 minutes discharge planning Discharge Instructions Discharge Diet: No Restrictions Activity as Tolerated: Yes Discharge Physical Examination Vital Signs Vital Signs Date Time Temp Pulse Resp B/P (MAP) Pulse Ox O2 Delivery O2 Flow Rate FiO2 07/29/19 08:28 35.9 65 20 129/56 (80) 95 Room Air General Appearance: No Apparent Distress, WD/WN HEENT: PERRL/EOMI, Pharynx Normal Respiratory: Lungs Clear, Normal Breath Sounds, No Respiratory Distress Cardiovascular: Regular Rate, Rhythm, No Edema, No Murmur Gastrointestinal: Normal Bowel Sounds, Non Tender, Soft Extremity: Normal Inspection, Non Tender Skin: Rash Neurologic/Psychiatric: Alert, Oriented x3, No Motor/Sensory Deficits, Normal Mood/Affect Allergies: Coded Allergies: sulfamethoxazole (Verified Allergy, Intermediate, 10/05/15) tramadol (Verified Allergy, Intermediate, 10/05/15) trimethoprim (Verified Allergy, Intermediate, 10/05/15) Penicillins (Verified Allergy, Unknown, 10/05/15) codeine (Verified Allergy, Unknown, CAN TAKE MORPHINE, 10/05/15) hydrocodone (Verified Allergy, Unknown, 10/05/15) morphine (Verified Adverse Reaction, Intermediate, Nausea, 06/03/19) amiodarone (Verified Adverse Reaction, Mild, NAUSEA, dizziness, 02/01/16) Copy Copies To 1: JOE ROBERTSON MD Discharge Summary Date of Admission Jul 25, 2019 at 13:00 Date of Discharge Jul 29, 2019 at 12:13 Discharge Date: Jul 29, 2019 Discharge Time: 12:13 Admission Diagnosis Vertigo Discharge Diagnosis Urinary tract infection (1) ESBL (extended spectrum beta-lactamase) producing bacteria infection Status: Acute (2) UTI (urinary tract infection) Status: Acute (3) Type 2 diabetes mellitus with hypoglycemia Status: Acute Qualifiers: Qualified Codes: E11.649 - Type 2 diabetes mellitus with hypoglycemia without coma; Z79.4 - computer terminal operator (current) use of insulin (4) Acute kidney injury superimposed on chronic kidney disease Status: Acute Clinical Quality Measures DVT/VTE Risk/Contraindication: Risk Factor Score Per Nursin RFS Level Per Nursing on Admit: 2=Moderate CRIS WALDEN MD Jul 29, 2019 14:04
== END 2019-07-29 12:13 | disposition swing bed (61) | DRG 690 ==
LOC: EDUNIT# 15:31 → ER 15:32 → 4TH 17:30 → OBSVTOIN 07-25 13:00
PROVIDERS: ADMIT Family Medicine; ATTEND Internal Medicine
DX: N39.0 Urinary tract infection, site not specified (principal); I13.0 Hypertensive heart and chronic kidney disease with heart failure and stage 1 through stage 4 chronic kidney disease, or unspecified chronic kidney disease; N17.9 Acute kidney failure, unspecified; Z16.12 Extended spectrum beta lactamase (ESBL) resistance; E11.649 Type 2 diabetes mellitus with hypoglycemia without coma; E11.610 Type 2 diabetes mellitus with diabetic neuropathic arthropathy; E11.22 Type 2 diabetes mellitus with diabetic chronic kidney disease; I50.9 Heart failure, unspecified; N18.3 Chronic kidney disease, stage 3 (moderate); I48.0 Paroxysmal atrial fibrillation; I25.10 Atherosclerotic heart disease of native coronary artery without angina pectoris; E11.40 Type 2 diabetes mellitus with diabetic neuropathy, unspecified; K58.9 Irritable bowel syndrome, unspecified; E78.5 Hyperlipidemia, unspecified; H54.62 Unqualified visual loss, left eye, normal vision right eye; H91.90 Unspecified hearing loss, unspecified ear; I73.9 Peripheral vascular disease, unspecified; E11.51 Type 2 diabetes mellitus with diabetic peripheral angiopathy without gangrene; R21 Rash and other nonspecific skin eruption; Z79.4 Long term (current) use of insulin; I49.5 Sick sinus syndrome; Z95.0 Presence of cardiac pacemaker; Z95.5 Presence of coronary angioplasty implant and graft; Z95.820 Peripheral vascular angioplasty status with implants and grafts; Z95.2 Presence of prosthetic heart valve; Z90.12 Acquired absence of left breast and nipple; Z90.710 Acquired absence of both cervix and uterus; Z90.722 Acquired absence of ovaries, bilateral; Z92.3 Personal history of irradiation; B96.20 Unspecified Escherichia coli [E. coli] as the cause of diseases classified elsewhere
CPT/HCPCS: 36415; 70450; 71045; 80048; 80053; 80061; 81000; 82962; 83036; 84484; 85007; 85025; 85027; 85379; 85610; 85730; 87077; 87088; 87186; 93005; 93041; 96376; G0378

== ENCOUNTER 2019-07-29 11:51 | Inpatient (IN) | payer MEDICARE, MEDICAID ==
[~2019-07-29] VITALS: Ht 167.7 cm; Wt 100.4 kg
--- NOTE | 2019-07-29 11:15 | NUR ---
Notified Dr. Ga at this time that patient's nose has been bleeding persistently since 1100
[~2019-07-29 11:51] MED LIST changes: -DIAZ5TAB3 PO; +DIAZ5TAB49 PO; +DIPH25TA65 PO; +FEXO180T84 PO; +HYDR-700 PO; -LOPE-145 PO; +LOPE-175 PO; -METO-387 PO; +MTP25TSR PO; +TR1C15 TP
[2019-07-29] MEDS ORDERED: MILK OF MAGNESIA 400 MG/5 ML 30 ML UDC PO PRN (12:30)
[2019-07-29] MEDS ORDERED: ONDANSETRON 4 MG/2 ML (SDV) Z0FRAN IV PRN (12:30)
[2019-07-29] MEDS ORDERED: ESTROGENS CONJ. CREAM 30 GM (PREMARIN) TUBE VG SCH (12:30)
[2019-07-29] MEDS ORDERED: BENZONATATE 100 MG (TESSALON) CAPSULE PO PRN (12:30)
[2019-07-29] MEDS ORDERED: ANTACID SUSP 30 ML UDC (MYLANTA) PO PRN (12:30)
[2019-07-29] MEDS ORDERED: ONDANSETRON 4 MG (ZOFRAN) ORAL DISSOLVE TAB PO PRN (12:30)
[2019-07-29] MEDS ORDERED: DIAZEPAM 5 MG (VALIUM) TABLET PO PRN (12:30)
[2019-07-29] MEDS ORDERED: PATIENT MAY USE OWN MED,SINGLE MED PO SCH (12:30)
[2019-07-29] MEDS ORDERED: MEROPENEM 500 MG in WATER (STERILE) FOR INJECTION 10 ML IV SCH (12:30)
[2019-07-29] MEDS ORDERED: ACETAMINOPHEN 325 MG TABLET PO PRN (12:30)
--- NOTE | 2019-07-29 12:48 | NUR ---
Admission Drug Regimen Review Completed: Date: 07/29/19 Time: 1249 Physician Notified: CRIS WALDEN MD Date: 07/29/19 Time: 1249 Issue Identified; Action Plan to Resolve and Any Action Taken: Novolog 3units sub q with meals was discontinued by [employer] d/t identifying this as a duplicate medication. Dr. Walden was notified et he confirmed that he still wants this medication to continue. Put back into this swing bed account.
--- NOTE | 2019-07-29 14:09 | Occupational Therapy Eval ---
OT Evaluation-General/PLF Medical Diagnosis Admission Date Jul 29, 2019 at 12:36 Medical Diagnosis: UTI Onset Date: Jul 25, 2019 Therapy Diagnosis Therapy Diagnosis: Weakness, Decreased ADL skills Height/Weight Height (Feet): 5 Height (Inches): 6.00 Weight (Pounds): 223 Weight (Ounces): 0.5 Weight Bear Status Weight Bearing Restriction: Weight Bearing/Tolerated Referral Physician: Dr. Ga Referral Reason: Activity Tolerance, Self Care, Evaluation/Treatment, Strengthening/ROM Medical History Pertinent Medical History: Atrial Fib, CAD, DM, HTN, PA, Neuropathy Reviewed History: Yes Social History Home: Single Level Current Living Status: ADL-Prior Level of Function SCALE: Activities may be completed with or without assistive devices. 3-Kdziukfkig-uwcicuv completes the activity by him/herself with no assistance from a helper. 5-Set-up or Clean-up Assistance-helper sets up or cleans up; patient completes activity. [place] assists only prior to or following the activity. 4-Supervision or Touching Assistance-helper provides verbal cues and/or touching/steadying and/or contact guard assistance as patient completes activity. Assistance may be provided throughout the activity or intermittently. 3-Partial/Moderate Assistance-helper does LESS THAN HALF the effort. [place] lifts, holds or supports trunk or limbs, but provides less than half the effort. 2-Substantial/Maximal Assistance-helper does MORE THAN HALF the effort. [place] lifts or holds trunk or limbs and provides more than half the effort. 1-Vmaskfiwn-ghwgqm does ALL the effort. Patient does none of the effort to complete the activity. Or, the assistance of 2 or more helpers is required for the patient to complete the activity. If activity was not attempted, code reason: 7-Patient Refused. 9-Not Applicable-not attempted and the patient did not perform the activity before the current illness, exacerbation or injury. 10-Not Attempted due to Environmental Limitations-(lack of equipment, weather restraints, etc.). 88-Not Attempted due to Medical Conditions or Safety Concerns. ADL PLOF Comments Pt. lives with granddaughter. Has full assistance for ADLs. Daughter in room and states that pt. is seeking further care to assist at night. Self Care: Needed Some Help Functional Cognition: Unknown DME/Equipment Comments Pt. uses walker at home. States that she ambulates to bathroom, but not far distances. OT Current Status Subjective No pain reported. Appearance Pt. in bed when OT entered room. Pt. has bloody nose, and has dripped on gown, multiple tissues. Agrees to let OT assist her to clean up. Nursing is notified. Mental Status/Objective Patient Orientation: Person Current Glasses/Contacts: Yes ADL-Treatment On/Off Footwear (QC): 1 Toileting Hygiene (QC): 2 Toilet transfer (3-mod assist) Other Treatments Pt. transferred supine-sit with max assist. Pt. continually holding tissue to nose, and has difficulty assisting herself in transfer with one hand. Sat on s guanako of bed and washed face and hands. Stood with mod assist and transferred to [facility] OT performs brief management. OT assisted pt. to change gown. Transferred back to bed with mod assist for sit-stand and transfer. Max assist for sit-supine. Max x 2 for bed mobility. All needs met. Education OT Patient Education: Correct positioning, Modified ADL techniques, Progress toward Goal/Update tx plan, Purpose of tx/functional activities, Reviewed precautions, Rehab process, Transfer techniques Teaching Recipient: Patient Teaching Methods: Demonstration, Discussion Response to Teaching: Verbalize Understanding, Return Demonstration OT Short Term Goals Short Term Goals Time Frame: Aug 05, 2019 Eatin Oral hygiene: 4 Toileting hygiene: 3 OT Snf Goals Retail Key Holder Goals Time Frame: Aug 12, 2019 Eating (QC): 6 Oral Hygiene (QC): 5 Toileting Hygiene (QC): 4 Additional Goals: 1-Demonstrate ADL Tasks, 2-Verbalize Understanding, 3- ImproveStrength/Sammie 1=Demonstrate adherence to instructed precautions during ADL tasks. 2=Patient will verbalize/demonstrate understanding of assistive devices/modifications for ADL. 3=Patient will improve strength/tolerance for activity to enable patient to perform ADL's. Toilet transfer (4) OT Education/Plan Problem List/Assessment Assessment: Decreased Activ Tolerance, Dependent Transfers, Impaired Bed Mobility, Impaired Funct Balance, Impaired I ADL's, Impaired Self-Care Skills Discharge Recommendations Plan/Recommendations: Continue POC Therapy Discharge Recommendati: Post Acute OT Treatment Plan/Plan of Care Treatment,Training & Education: Yes Patient would benefit from OT for education, treatment and training to promote independence in ADL's, mobility, safety and/or upper extremity function for ADL's. Plan of Care: ADL Retraining, Functional Mobility, UE Funct Exercise/Act Treatment Duration: Aug 12, 2019 Frequency: 5 times per week Estimated Hrs Per Day: .5 hour per day Agreement: Yes Rehab Potential: Fair Time/GCodes Start Time: 13:25 Stop Time: 13:50 Total Time Billed (hr/min): 25 Billed Treatment Time 1, EVH x 10minutes, ADL x 15minutes ALISSON VERA OT Jul 29, 2019 14:09
--- NOTE | 2019-07-29 14:44 | Physical Therapy Evaluation ---
PT Evaluation-General Medical Diagnosis Admission Date Jul 29, 2019 at 12:36 Medical Diagnosis: UTI Onset Date: Jul 25, 2019 Therapy Diagnosis Therapy Diagnosis: debility/weakness Height/Weight Height (Feet): 5 Height (Inches): 6.00 Weight (Pounds): 223 Weight (Ounces): 0.5 Weight Bear Status Right Lower Extremity: Right Weight Bearing/Tolerated Left Lower Extremity: Left Weight Bearing/Tolerated Referral Physician: Dr. Ga Reason for Referral: Evaluation/Treatment Medical History Pertinent Medical History: Atrial Fib, CAD, DM, HTN, MT, Neuropathy Current History SWB status Reviewed History: Yes Social History Home: Single Level Current Living Status: Prior Prior Level of Function SCALE: Activities may be completed with or without assistive devices. 3-Dromsmeard-imblkkt completes the activity by him/herself with no assistance from a helper. 5-Set-up or Clean-up Assistance-helper sets up or cleans up; patient completes activity. Grant assists only prior to or following the activity. 4-Supervision or Touching Assistance-helper provides verbal cues and/or touching/steadying and/or contact guard assistance as patient completes activity. Assistance may be provided throughout the activity or intermittently. 3-Partial/Moderate Assistance-helper does LESS THAN HALF the effort. Grant lifts, holds or supports trunk or limbs, but provides less than half the effort. 2-Substantial/Maximal Assistance-helper does MORE THAN HALF the effort. Grant lifts or holds trunk or limbs and provides more than half the effort. 7-Cxjgbxuys-unjxqr does ALL the effort. Patient does none of the effort to complete the activity. Or, the assistance of 2 or more helpers is required for the patient to complete the activity. If activity was not attempted, code reason: 7-Patient Refused. 9-Not Applicable-not attempted and the patient did not perform the activity before the current illness, exacerbation or injury. 10-Not Attempted due to Environmental Limitations-(lack of equipment, weather restraints, etc.). 88-Not Attempted due to Medical Conditions or Safety Concerns. Bed Mobility: 4 Transfers (B,C,W/C): 4 Gait: 4 Indoor Mobility (Ambulation): Needed Some Help Prior Devices Use: Walker PT Evaluation-Current Subjective Patient agrees to PT. She report she has had nose bleeds today. Pain Numeric Pain Scale: 0-No Pain Location: No Pain Reported Objective Patient Orientation: Normal For Age ROM/Strength ROM Lower Extremities bilateral LE WFL Strength Lower Extremities 3/5 grossly bilateral LE Integumentary/Posture Integumentary refer to nursing notes Bowel Incontinence: No Bladder Incontinence: Yes Posture WFL Neuromuscular (Tone, Coordination, Reflexes) slightly diminished coordination due to inactivity Sensory Vision: Wears Glasses Hearing: Functional Sensation Right Lower Extremit: Impaired Sensation Left Lower Extremity: Impaired Transfers Roll Left to Right (QC): 3 Sit to Lying (QC): 3 Lying to Sitting/Side of Bed(Q: 3 Sit to Stand (QC): 3 Chair/Fta-uz-Cpapk Xfer(QC): 3 Toilet Transfer: 3 Car Transfer (QC): 88 Gait Does the Patient Walk?: Yes Mode of Locomotion: Walk Anticipated Mode of Locomotion: Walk Walk 10 feet (QC): 3 Walk 50 ft with 2 Turns(QC): 88 Walk 150 ft (QC): 88 Walking 10ft/uneven surface-QC: 88 Distance: 15' Gait Assistive Device: FWW Comments/Gait Description WFL Balance Sitting Static: Normal Sitting Dynamic: Normal Standing Static: Fair Standing Dynamic: Fair Treatment bilateral LE exercises in sit AP, LAQ 15 reps/assist with toileting to cleanse and change depends/ambulate FWW minimal assist x 15 min Assessment/Needs 79 y.o. female, will benefit from skilled PT to address functional strength and mobility to improve current LOF to safely return to home with caregivers and family at maximum LOF. Rehab Potential: Fair PT Fdc Goals Fdc Goals PT Flatwork Finisher Goals Time Frame: Aug 13, 2019 Roll Left & Right (QC): 5 Sit to Lying (QC): 5 Lying-Sitting on Side/Bed(QC): 5 Sit to Stand (QC): 5 Chair/Dck-pw-Nldnw Xfer(QC): 5 Toilet Transfer (QC): 5 Car Transfer (QC): 5 Does the Patient Walk: Yes Walk 10 feet (QC): 5 Walk 50ft with 2 Turns (QC): 5 Walk 150 ft (QC): 5 Walking 10ft on Uneven Surface: 5 1 Step (curb) (QC): 9 4 Steps (QC): 9 12 Steps (QC): 9 Picking up an Object (QC): 5 PT Plan Problem List Problem List: Activity Tolerance, Functional Strength, Safety, Balance, Gait, Transfer, Bed Mobility Treatment/Plan Treatment Plan: Continue Plan of Care Treatment Plan: Bed Mobility, Education, Functional Activity Sammie, Functional Strength, Gait, Safety, Therapeutic Exercise, Transfers Treatment Duration: Aug 13, 2019 Frequency: 6 times per week Estimated Hrs Per Day: .25 hour per day Patient and/or Family Agrees t: Yes Time/GCodes Time In: 1412 Time Out: 1435 Total Billed Treatment Time: 23 Total Billed Treatment 1 visit EVLow 8 min FA 15 min WOODY STARKEY PT Jul 29, 2019 14:43
--- NOTE | 2019-07-29 14:57 | Cardiology Progress Note ---
Subjective Date Seen by Provider: Jul 29, 2019 Time Seen by Provider: 14:55 Subjective/Events-last exam patient is laying down in bed. Feeling better. Still having generalized w eakness Review of Systems General: No Chills, No Night Sweats; Fatigue; No Malaise, No Appetite, No Other HEENT: No Head Aches, No Visual Changes, No Eye Pain, No Ear Pain, No Dysphasia, No Sinus Congestion, No Post Nasal Drip, No Sore Throat, No Other Pulmonary: No Dyspnea, No Cough, No Pleuritic Chest Pain, No Other Cardiovascular: No: Chest Pain, Palpitations, Orthopnea, Paroxysmal Noc. Dyspnea, Edema, Lt Headedness, Other Objective-Cardiology Exam Last Set of Vital Signs Capillary Refill : General: Alert, Oriented X3, Cooperative HEENT: Atraumatic, PERRLA Neck: Supple, No JVD, No Thyromegaly Lungs: Clear to Auscultation, Normal Air Movement Heart: Regular Rate, Normal S1, Normal S2, No Murmurs Abdomen: Normal Bowel Sounds, Soft, No Tenderness, No Hepatosplenomegaly, No Masses Extremities: No Clubbing, No Cyanosis, No Edema, Normal Pulses, No Tenderness/Swelling Skin: No Rashes, No Breakdown, No Significant Lesion Neuro: Normal Gait, Normal Speech, Strength at 5/5 X4 Ext, Normal Tone, Sensation Intact Psych/Mental Status: Mental Status NL, Mood NL A/P-Cardiology Admission Diagnosis Debility UTI Coronary artery disease Peripheral arterial disease Assessment/Plan Debility, generalized weakness, improving. Continue with physical therapy. UTI, ESBL, managed by primary care team Skin rash, questionable allergic reaction, will try to obtain copy of her medication and review any new medication she started in the past couple of months, she had a skin biopsy done by Dr. Gonzales Coronary artery disease, multiple interventions in the past, reports a total of 11 stents. Multivessel disease. Cardiac catheterization was done in October 2012 showing severe stenosis in the midright coronary artery had stent deployed 3.0x24 mm Promus Elements stent expanded to 3.18 mm in the right coronary artery. Severe stenosis in the proximal diagonal artery, very small artery not amendable to intervention. 60 percent in-stent restenosis in the mid circumflex artery, underwent another cardiac catheterization on November 19, [address] Burch, had a stent to the circumflex artery, the stent sizes was not described in the report. Cardiac catheterization done December 26, 2016 with balloon angioplasty to the mid circumflex for 80 percent in-stent restenosis. Patient was brought back the same day where she underwent repeat cardiac catheterization after having chest pain, underwent another balloon angioplasty and stent deployment in the distal circumflex artery for recoil of the in-stent restenosis with the use of a new stent, 3.5 x 18 mm Xience Alpine stent. Most recent cardiac catheterization on February 04, [address] Mcdonnell after having type II myocardial infarction which showed moderate multivessel coronary artery disease, had FFR 0.83 to the LAD and 0.91 to the left circumflex artery, treated conservatively. Peripheral arterial disease, history of nonhealing foot ulcer and stent done in 2016, cardiac catheterization done in September 2017 showing total occlusion of the left SFA with complex intervention and balloon angioplasty then drug-coated balloon 5 x 100 then deployment of a new stent Innova 6 x 150 from the ostium of the left SFA to the mid SFA overlapping with old stent with excellent results, mild to moderate disease at the popliteal artery and below the trifurcation with small vessel disease, mild to moderate disease at the right SFA. Underwent peripheral angiogram on September 02, [address] Sotomayor with left SFA popliteal atherectomy and angioplasty, left anterior tibial artery angioplasty with widely patent vessels following intervention. Currently asymptomatic. Continue to monitor Labile hypertension, continue to monitor blood pressure. Chronic renal insufficiency, stage III renal disease, followed by Dr. Long, continue to monitor History of Intraocular hemorrhage in February 2019, underwent multiple laser procedure, follows with Dr. Hdez in [place] History of severe aortic valve stenosis s/p TAVR in April 2019, most recent 2D Echo done at May 2019 revealed prosthetic valve in aortic position functioning normally. Hyperlipidemia, patient reports intolerance to Lipitor, tolerating Crestor, continue to monitor lipids Diabetes mellitus, followed and managed by primary care physician. Sick sinus syndrome, history of permanent pacemaker placement. Medtronic device, pacemaker checkup was done in May 2019 showing good sensing and c apture activity, continue to monitor Carotid stenosis, history of right carotid endarterectomy. CTA of neck done on February 01, 2016 revealed no significant stenosis in the internal carotid arteries. Prominent focus of stenosis in the distal aspect of the left vertebral artery at the foramen magnum and level dominant right vertebral artery demonstrates no significant stenosis. Carotid ultrasound in April 2018 showed mild bilateral disease. Continue to monitor Paroxysmal atrial fibrillation, history of intolerance to amiodarone. Maintained on Eliquis. 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 followed by Dr. Palomino, currently in remission. Clinical Quality Measures DVT/VTE Risk/Contraindication: Risk Factor Score Per Nursin DIMPLE NOVOA MD Jul 29, 2019 14:57
--- NOTE | 2019-07-29 15:15 | NUR ---
CM/SS spoke with the patient this morning in regards to possible swing bed or fdc facility placement. Plan: [facility] swing bed coordinator accepted the patient for swing bed. The patient has Home Health with [facility] and has 39 hours a week through [facility]. The patient lives with granddaughter. The patient had her niece in the room with her at the time of visit. The patient states that she does not want to go to a [facility] facility because she has been to a couple and it took them 30 min to answer a call light. She reports that she really does not like the food either. [facility] is an option however the patient wanted to stay in our hospital as her first choice and Dr. Blake thought possible placement. The patient has a good support system within the home such as home health, and caregivers for 39 hours. No other needs at this time.
--- NOTE | 2019-07-29 15:58 | NUR ---
Notified Dr. Ga again that patient's nose has been bleeding off and on since 1100.
[2019-07-29] MEDS: inSUlin ASPART (NovoLOG) 1 UNIT/0.01 ML (CHARGE PER UNIT) SC SCH ×3 (16:49→21:02)
[2019-07-29] MEDS: APIXABAN 2.5 MG (ELIQUIS) TABLET PO SCH (16:50)
--- NOTE | 2019-07-29 17:30 | NUR ---
Dr. Flores consulted. Family notified of this and informed of treatment in place. Orders to hold tonight's dose of Eliquis and resume in the morning 07/30/19.
[2019-07-29 17:50] VITALS: BP 114/56
[2019-07-29] MEDS: hydrOXYzine (ATARAX) 10 MG TAB PO PRN (18:02)
[2019-07-29] MEDS: MEROPENEM 500 MG in WATER (STERILE) FOR INJECTION 10 ML IV SCH (18:02)
[2019-07-29] MEDS: DOCUSATE SODIUM 100 MG (COLACE) CAP PO SCH (19:58)
[2019-07-29] MEDS: ROSUVASTATIN 20 MG (CRESTOR) TABLET PO SCH (19:58)
[2019-07-29] MEDS: KCL 20 MEQ TAB (K-DUR) PO SCH (19:58)
[2019-07-29] MEDS: MELATONIN 3 MG TABLET PO PRN (19:58)
[2019-07-29] MEDS: MIDODRINE 10 MG (PROAMATINE) TAB PO SCH (20:04)
[2019-07-29] MEDS ORDERED: LIRAGLUTIDE SC SCH (21:00)
--- NOTE | 2019-07-30 00:46 | CONSULTATION REPORT ---
DATE OF SERVICE: ENT CONSULT ROOM: 422. LOCATION: [facility]. REASON FOR CONSULTATION: Left-sided epistaxis. HISTORY OF PRESENT ILLNESS: The patient is an elderly female who is currently in the hospital for other reasons besides the epistaxis. She had the onset of epistaxis earlier this afternoon. They have tried Afrin. They have held the nose. Unfortunately, it continues to bleed. She is on Eliquis on a regular basis. She does not use oxygen. She has no prior history of marked bleeding from the nose. She has marked vascular problems. On physical examination of nose, external nose normal. Intranasally there is old blood seen low in the nose on the left. She had a broken vessel seen approximately 1/3rd away back on the septum when I suctioned, it began to ooze. There were no other bleeding sites seen on the left side. There were no bleeding sites seen on the right side. There were no clots removed. PROCEDURE: While in the room verbal consent was obtained, the nose was anesthetized with topical 4% cocaine on a cotton pledget, 3 sticks of silver nitrate were then used to cauterize the bleeding site. This stopped the bleeding. A small Romie patch was placed for extra pressure in this area . She tolerated the procedure well. IMPRESSION: 1. Left epistaxis. 2. Eliquis anticoagulation. RECOMMENDATIONS: The nose bleed was cauterized as above. Post-procedure instructions were given. We will plan on leaving the pack in until Thursday. I will be back to remove the pack if she has marked bleeding prior to that time. I have asked them to call. Job ID: [id number] DocumentID: [id number] Dictated Date: 07/29/2019 17:24:53 Photograph Tinter Date: 07/29/2019 17:35:15 Dictated By: NAFISA CHRIS MD
[2019-07-30] MEDS: inSUlin ASPART (NovoLOG) 1 UNIT/0.01 ML (CHARGE PER UNIT) SC SCH ×7 (05:38→21:30)
[2019-07-30] MEDS: MEROPENEM 500 MG in WATER (STERILE) FOR INJECTION 10 ML IV SCH ×2 (05:42→17:51)
[2019-07-30] MEDS: CYANOCOBALAMIN 1,000 MCG (VITAMIN B-12) TABLET PO SCH (05:42)
[2019-07-30 06:00] VITALS: BP 121/64
[2019-07-30 06:13] LABS: BASOPHILS % (AUTO) 1 % (0-10); EOSINOPHILS # (AUTO) 0.2 10^3/uL (0.0-0.3); EOSINOPHILS % (AUTO) 2 % (0-10); HEMATOCRIT 28 % (35-52); HEMOGLOBIN 8.1 G/DL (11.5-16.0); LYMPHOCYTES # (AUTO) 2.3 X 10^3 (1.0-4.0); LYMPHOCYTES % (AUTO) 35 % (12-44); MEAN CORPUSCULAR HEMOGLOBIN 18 PG (25-34); MEAN CORPUSCULAR HGB CONC 29 G/DL (32-36); MEAN CORPUSCULAR VOLUME 64 FL (80-99); MEAN PLATELET VOLUME 10.1 FL (7.4-10.4); MONOCYTES % (AUTO) 15 % (0-12); NEUTROPHILS # (AUTO) 3.1 X 10^3 (1.8-7.8); NEUTROPHILS % (AUTO) 47 % (42-75); PLATELET COUNT 221 10^3/uL (130-400); WHITE BLOOD COUNT 6.6 10^3/uL (4.3-11.0)
[2019-07-30 06:28] LABS: CALCIUM 8.9 MG/DL (8.5-10.1); CREATININE SERUM 2.2 MG/DL (0.60-1.30); POTASSIUM 4.2 MMOL/L (3.6-5.0)
[2019-07-30] MEDS ORDERED: TORSEMIDE 20 MG (DEMADEX) TAB PO SCH (09:00)
[2019-07-30] MEDS: hydrOXYzine (ATARAX) 10 MG TAB PO PRN ×2 (09:19→17:50)
[2019-07-30] MEDS: APIXABAN 2.5 MG (ELIQUIS) TABLET PO SCH ×2 (09:19→19:46)
[2019-07-30] MEDS: PANTOPRAZOLE 40 MG (PROTONIX) TAB PO SCH (09:19)
[2019-07-30] MEDS: KCL 20 MEQ TAB (K-DUR) PO SCH ×2 (09:20→19:46)
[2019-07-30] MEDS: ALLOPURINOL 100 MG (ZYLOPRIM) TAB PO SCH (09:20)
[2019-07-30] MEDS: CLOPIDOGREL 75 MG (PLAVIX) TABLET PO SCH (09:20)
[2019-07-30] MEDS: VITAMIN D3 1,000 UNITS (CHOLECALCIFEROL) TABLET PO SCH (09:21)
[2019-07-30] MEDS: MIDODRINE 10 MG (PROAMATINE) TAB PO SCH ×2 (09:27→19:46)
--- NOTE | 2019-07-30 11:30 | Physical Therapy Daily Note ---
PT Daily Note-Current Subjective Pt agreeable to PT session but requiring encouragement to do so. Pain Numeric Pain Scale: 0-No Pain Appearance Pt is on contact precautions. Pt in bed upon arrival, awake and alert, requesting to be "cleaned up". Convinced pt to get up and onto BSC and assisted with carols care. Pt refusing to attempt wiping herself or donning and doffing briefs. At end of session, pt sitting up in recliner with call light, phone and bedside table within reach. Mental Status Patient Orientation: Person, Place, Time, Eyes Open Transfers SCALE: Activities may be completed with or without assistive devices. 6-Ksrrkklsxc-igikdtm completes the activity by him/herself with no assistance from a helper. 5-Set-up or Clean-up Assistance-helper sets up or cleans up; patient completes activity. [place] assists only prior to or following the activity. 4-Supervision or Touching Assistance-helper provides verbal cues and/or touching/steadying and/or contact guard assistance as patient completes activity. Assistance may be provided throughout the activity or intermittently. 3-Partial/Moderate Assistance-helper does LESS THAN HALF the effort. [place] lifts, holds or supports trunk or limbs, but provides less than half the effort. 2-Substantial/Maximal Assistance-helper does MORE THAN HALF the effort. [place] lifts or holds trunk or limbs and provides more than half the effort. 2-Tshfxyiej-fqwwms does ALL the effort. Patient does none of the effort to complete the activity. Or, the assistance of 2 or more helpers is required for the patient to complete the activity. If activity was not attempted, code reason: 7-Patient Refused. 9-Not Applicable-not attempted and the patient did not perform the activity before the current illness, exacerbation or injury. 10-Not Attempted due to Environmental Limitations-(lack of equipment, weather restraints, etc.). 88-Not Attempted due to Medical Conditions or Safety Concerns. Roll Left & Right (QC): 4 Lying to Sitting/Side of Bed(Q: 3 (Pt refusing to attempt on her own) Sit to Stand (QC): 4 Chair/Stp-wj-Yazzm Xfer(QC): 4 (x6 reps between bed, BSC and recliner throughout tx session) skilled verb inst required for safety, positioning, hand placement and technique Weight Bearing Right Lower Extremity: Right Weight Bearing/Tolerated Left Lower Extremity: Left Weight Bearing/Tolerated Treatments safety, education, transfers, bed mobility, activity tolerance, functional mobility, toileting, carlos care, positioning Assessment Pt is self limiting and requiring max encouragement to attempt some activities, at times refuses to try stating "I just can't do it". PT Professor Of Criminal Justice Goals Professor Of Criminal Justice Goals PT Skilled Nursing Goals Time Frame: Aug 13, 2019 Roll Left & Right (QC): 5 Sit to Lying (QC): 5 Lying-Sitting on Side/Bed(QC): 5 Sit to Stand (QC): 5 Chair/Wzc-mn-Tgoze Xfer(QC): 5 Toilet Transfer (QC): 5 Car Transfer (QC): 5 Does the Patient Walk: Yes Walk 10 feet (QC): 5 Walk 50ft with 2 Turns (QC): 5 Walk 150 ft (QC): 5 Walking 10ft on Uneven Surface: 5 1 Step (curb) (QC): 9 4 Steps (QC): 9 12 Steps (QC): 9 Picking up an Object (QC): 5 PT Plan Treatment/Plan Treatment Plan: Continue Plan of Care Treatment Plan: Bed Mobility, Education, Functional Activity Sammie, Functional Strength, Gait, Safety, Therapeutic Exercise, Transfers Treatment Duration: Aug 13, 2019 Frequency: 6 times per week Estimated Hrs Per Day: .25 hour per day Patient and/or Family Agrees t: Yes Safety Risks/Education Patient Education: Transfer Techniques, Correct Positioning, Safety Issues Teaching Recipient: Patient Teaching Methods: Demonstration, Discussion Response to Teaching: Verbalize Understanding, Return Demonstration, Reinforcement Needed Time/GCodes Time In: 1100 Time Out: 1124 Total Billed Treatment Time: 24 Total Billed Treatment 1 visit, FA x2 units SHAYNE FLORES MEAL ROOM HAND Jul 30, 2019 11:30
--- NOTE | 2019-07-30 12:04 | Cardiology Progress Note ---
Subjective Date Seen by Provider: Jul 30, 2019 Time Seen by Provider: 12:02 Subjective/Events-last exam Patient is sitting in a chair, feeling better. No new complaint Review of Systems General: No Chills, No Night Sweats; Fatigue; No Malaise, No Appetite, No Other HEENT: No Head Aches, No Visual Changes, No Eye Pain, No Ear Pain, No Dysphasia, No Sinus Congestion, No Post Nasal Drip, No Sore Throat, No Other Pulmonary: Dyspnea; No Cough, No Pleuritic Chest Pain, No Other Cardiovascular: No: Chest Pain, Palpitations, Orthopnea, Paroxysmal Noc. Dyspnea, Edema, Lt Headedness, Other Objective-Cardiology Exam Last Set of Vital Signs Vital Signs 07/30/19 07/30/19 06:00 09:00 Temp 36.4 Pulse 98 Resp 20 B/P (MAP) 121/64 (83) Pulse Ox 93 O2 Delivery Room Air Capillary Refill : Less Than 3 Seconds I&O Intake and Output 07/29/19 23:59 Intake Total 840 ml Balance 840 ml Intake Oral 840 ml # Voids 5 # Bowel Movements 1 Daily Weight Change No General: Alert, Oriented X3, Cooperative HEENT: Atraumatic, PERRLA Neck: Supple, No JVD, No Thyromegaly Lungs: Clear to Auscultation, Normal Air Movement Heart: Regular Rate, Normal S1, Normal S2, No Murmurs Abdomen: Normal Bowel Sounds, Soft, No Tenderness, No Hepatosplenomegaly, No Masses Extremities: No Clubbing, No Cyanosis, No Edema, Normal Pulses, No Tenderness/Swelling Skin: No Rashes, No Breakdown, No Significant Lesion Neuro: Normal Gait, Normal Speech, Strength at 5/5 X4 Ext, Normal Tone, Sens ation Intact Psych/Mental Status: Mental Status NL, Mood NL Results Lab Laboratory Tests 07/30/19 05:20 A/P-Cardiology Admission Diagnosis Debility UTI Coronary artery disease Peripheral arterial disease Assessment/Plan Debility, generalized weakness, improving and asking to go home, managed by primary care physician UTI, ESBL, managed by primary care team Chronic renal insufficiency, stage III renal disease, followed by Dr. Long, worsening renal function. I will decrease Demadex dose and monitor Skin rash, questionable allergic reaction, will try to obtain copy of her medication and review any new medication she started in the past couple of months, she had a skin biopsy done by Dr. Gonzales Coronary artery disease, multiple interventions in the past, reports a total of 11 stents. Multivessel disease. Cardiac catheterization was done in October 2012 showing severe stenosis in the midright coronary artery had stent deployed 3.0x24 mm Promus Elements stent expanded to 3.18 mm in the right coronary art jeannine. Severe stenosis in the proximal diagonal artery, very small artery not amendable to intervention. 60 percent in-stent restenosis in the mid circumflex artery, underwent another cardiac catheterization on November 19, [address] Burch, had a stent to the circumflex artery, the stent sizes was not described in the report. Cardiac catheterization done December 26, 2016 with balloon angioplasty to the mid circumflex for 80 percent in-stent restenosis. Patient was brought back the same day where she underwent repeat cardiac catheterization after having chest pain, underwent another balloon angioplasty and stent deployment in the distal circumflex artery for recoil of the in-stent restenosis with the use of a new stent, 3.5 x 18 mm Xience Alpine stent. Most recent cardiac catheterization on February 04, [address] Mcdonnell after having type II myocardial infarction which showed moderate multivessel coronary artery disease, had FFR 0.83 to the LAD and 0.91 to the left circumflex artery, treated conservatively. Peripheral arterial disease, history of nonhealing foot ulcer and stent done in 2016, cardiac catheterization done in September 2017 showing total occlusion of the left SFA with complex intervention and balloon angioplasty then drug-coated balloon 5 x 100 then deployment of a new stent Innova 6 x 150 from the ostium of the left SFA to the mid SFA overlapping with old stent with excellent results, mild to moderate disease at the popliteal artery and below the trifurcation with small vessel disease, mild to moderate disease at the right SFA. Underwent peripheral angiogram on September 02, [address] Sotomayor with left SFA popliteal atherectomy and angioplasty, left anterior tibial artery angioplasty with widely patent vessels following intervention. Currently asymptomatic. Continue to monitor Labile hypertension, continue to monitor blood pressure. History of Intraocular hemorrhage in February 2019, underwent multiple laser procedure, follows with Dr. Hdez in [place] History of severe aortic valve stenosis s/p TAVR in April 2019, most recent 2D Echo done at May 2019 revealed prosthetic valve in aortic position functioning normally. Hyperlipidemia, patient reports intolerance to Lipitor, tolerating Crestor, continue to monitor lipids Diabetes mellitus, followed and managed by primary care physician. Sick sinus syndrome, history of permanent pacemaker placement. Medtronic device, pacemaker checkup was done in May 2019 showing good sensing and capture activity, continue to monitor Carotid stenosis, history of right carotid endarterectomy. CTA of neck done on February 01, 2016 revealed no significant stenosis in the internal carotid arteries. Prominent focus of stenosis in the distal aspect of the left vertebral artery at the foramen magnum and level dominant right vertebral artery demonstrates no significant stenosis. Carotid ultrasound in April 2018 showed mild bilateral disease. Continue to monitor Paroxysmal atrial fibrillation, history of intolerance to amiodarone. Maintained on Eliquis. 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 followed by Dr. Palomino, currently in remission. Clinical Quality Measures DVT/VTE Risk/Contraindication: Risk Factor Score Per Nursin DIMPLE NOVOA MD Jul 30, 2019 12:04
[2019-07-30] MEDS: TRIAMCINOLONE 0.1% CR (KENALOG) 15 GM TUBE TP SCH ×2 (12:41→19:47)
[2019-07-30 18:00] VITALS: BP 113/53
[2019-07-30] MEDS: ROSUVASTATIN 20 MG (CRESTOR) TABLET PO SCH (19:46)
[2019-07-30] MEDS: DOCUSATE SODIUM 100 MG (COLACE) CAP PO SCH (19:46)
[2019-07-31] MEDS: hydrOXYzine (ATARAX) 10 MG TAB PO PRN ×3 (03:18→14:45)
[2019-07-31] MEDS: CYANOCOBALAMIN 1,000 MCG (VITAMIN B-12) TABLET PO SCH (05:39)
[2019-07-31] MEDS: MEROPENEM 500 MG in WATER (STERILE) FOR INJECTION 10 ML IV SCH ×2 (05:39→18:25)
[2019-07-31 06:00] VITALS: BP 122/60
[2019-07-31] MEDS: inSUlin ASPART (NovoLOG) 1 UNIT/0.01 ML (CHARGE PER UNIT) SC SCH ×7 (06:18→21:58)
--- NOTE | 2019-07-31 06:20 | Progress Note ---
Standard Progress Note Progress Notes/Assess & Plan Date Seen by a Provider: Jul 31, 2019 Time Seen by a Provider: 06:30 Progress/Assessment & Plan ENT-[facility] PAtient doing well-no further bleeding pack is out keep nose moist with ocean nasal spary prn if has recurrent problems first use some afrin if that doesnt stop it then give us a call no follow up needed from ENT standpoint Final Diagnosis left epistaxis NAFISA CHRIS MD Jul 31, 2019 06:20
[2019-07-31] MEDS: TRIAMCINOLONE 0.1% CR (KENALOG) 15 GM TUBE TP SCH (09:00)
[2019-07-31] MEDS: KCL 20 MEQ TAB (K-DUR) PO SCH ×2 (09:04→19:50)
[2019-07-31] MEDS: TORSEMIDE 20 MG (DEMADEX) TAB PO SCH (09:04)
[2019-07-31] MEDS: VITAMIN D3 1,000 UNITS (CHOLECALCIFEROL) TABLET PO SCH (09:04)
[2019-07-31] MEDS: MIDODRINE 10 MG (PROAMATINE) TAB PO SCH ×2 (09:04→19:51)
[2019-07-31] MEDS: PANTOPRAZOLE 40 MG (PROTONIX) TAB PO SCH (09:05)
[2019-07-31] MEDS: CLOPIDOGREL 75 MG (PLAVIX) TABLET PO SCH (09:05)
[2019-07-31] MEDS: ALLOPURINOL 100 MG (ZYLOPRIM) TAB PO SCH (09:05)
[2019-07-31] MEDS: APIXABAN 2.5 MG (ELIQUIS) TABLET PO SCH ×2 (09:05→19:51)
--- NOTE | 2019-07-31 10:41 | Cardiology Progress Note ---
Subjective Date Seen by Provider: Jul 31, 2019 Time Seen by Provider: 10:40 Subjective/Events-last exam Patient is laying down in bed, feeling better. Denied any chest pain Review of Systems General: No Chills, No Night Sweats; Fatigue; No Malaise, No Appetite, No Other HEENT: No Head Aches, No Visual Changes, No Eye Pain, No Ear Pain, No Dysphasia, No Sinus Congestion, No Post Nasal Drip, No Sore Throat, No Other Pulmonary: Dyspnea; No Cough, No Pleuritic Chest Pain, No Other Cardiovascular: Edema; No: Chest Pain, Palpitations, Orthopnea, Paroxysmal Noc. Dyspnea, Lt Headedness, Other Objective-Cardiology Exam Last Set of Vital Signs Vital Signs 07/31/19 07/31/19 06:00 09:00 Temp 35.8 Pulse 73 Resp 20 B/P (MAP) 122/60 (80) Pulse Ox 93 O2 Delivery Room Air Capillary Refill : Less Than 3 Seconds I&O Intake and Output 07/31/19 00:00 Intake Total 1880 ml Balance 1880 ml Intake Oral 1880 ml # Voids 6 # Bowel Movements 3 General: Alert, Oriented X3, Cooperative HEENT: Atraumatic, PERRLA Neck: Supple, No JVD, No Thyromegaly Lungs: Clear to Auscultation, Normal Air Movement Heart: Regular Rate, Normal S1, Normal S2, No Murmurs Abdomen: Normal Bowel Sounds, Soft, No Tenderness, No Hepatosplenomegaly, No Masses Extremities: No Clubbing, No Cyanosis, No Edema, Normal Pulses, No Te nderness/Swelling Skin: No Rashes, No Breakdown, No Significant Lesion Neuro: Normal Gait, Normal Speech, Strength at 5/5 X4 Ext, Normal Tone, Sensation Intact Psych/Mental Status: Mental Status NL, Mood NL Results Lab Laboratory Tests Test 07/30/19 10:57 07/30/19 16:18 07/30/19 20:46 07/31/19 06:16 Range/Units Glucometer 251 H 167 H 165 H 136 H 70-110 MG/DL A/P-Cardiology Admission Diagnosis Debility UTI Coronary artery disease Peripheral arterial disease Assessment/Plan Debility, generalized weakness, improving and asking to go home, managed by primary care physician UTI, ESBL, managed by primary care team Chronic renal insufficiency, stage III renal disease, followed by Dr. Long, I decreased the Demadex dose, evaluate BMP in the morning Skin rash, questionable allergic reaction, will try to obtain copy of her medication and review any new medication she started in the past couple of months, she had a skin biopsy done by Dr. Gonzales Coronary artery disease, multiple interventions in the past, reports a total of 11 stents. Multivessel disease. Cardiac catheterization was done in October 2012 showing severe stenosis in the midright coronary artery had stent deployed 3.0x24 mm Promus Elements stent expanded to 3.18 mm in the right coronary artery. Severe stenosis in the proximal diagonal artery, very small artery not amendable to intervention. 60 percent in-stent restenosis in the mid circumflex artery, underwent another cardiac catheterization on November 19, [address] Burch, had a stent to the circumflex artery, the stent sizes was not described in the report. Cardiac catheterization done December 26, 2016 with balloon angioplasty to the mid circumflex for 80 percent in-stent restenosis. Patient was brought back the same day where she underwent repeat cardiac catheterization after having chest pain, underwent another balloon angioplasty and stent deployment in the distal circumflex artery for recoil of the in-stent restenosis with the use of a new stent, 3.5 x 18 mm Xience Alpine stent. Most recent cardiac catheterization on February 04, [address] Mcdonnell after having type II myocardial infarction which showed moderate multivessel coronary artery disease, had FFR 0.83 to the LAD and 0.91 to the left circumflex artery, treated conservatively. Peripheral arterial disease, history of nonhealing foot ulcer and stent done in 2016, cardiac catheterization done in September 2017 showing total occlusion of the left SFA with complex intervention and balloon angioplasty then drug-coated balloon 5 x 100 then deployment of a new stent Innova 6 x 150 from the ostium of the left SFA to the mid SFA overlapping with old stent with excellent results, mild to moderate disease at the popliteal artery and below the trifurcation with small vessel disease, mild to moderate disease at the right SFA. Underwent peripheral angiogram on September 02, [address] Sotomayor with left SFA popliteal atherectomy and angioplasty, left anterior tibial artery angioplasty with widely patent vessels following intervention. Currently asymptomatic. Continue to monitor Labile hypertension, continue to monitor blood pressure. History of Intraocular hemorrhage in February 2019, underwent multiple laser proce dure, follows with Dr. Hdez in [place] History of severe aortic valve stenosis s/p TAVR in April 2019, most recent 2D Echo done at May 2019 revealed prosthetic valve in aortic position functioning normally. Hyperlipidemia, patient reports intolerance to Lipitor, tolerating Crestor, continue to monitor lipids Diabetes mellitus, followed and managed by primary care physician. Sick sinus syndrome, history of permanent pacemaker placement. Medtronic device, pacemaker checkup was done in May 2019 showing good sensing and capture activity, continue to monitor Carotid stenosis, history of right carotid endarterectomy. CTA of neck done on February 01, 2016 revealed no significant stenosis in the internal carotid arteries. Prominent focus of stenosis in the distal aspect of the left vertebral artery at the foramen magnum and level dominant right vertebral artery demonstrates no significant stenosis. Carotid ultrasound in April 2018 showed mild bilateral disease. Continue to monitor Paroxysmal atrial fibrillation, history of intolerance to amiodarone. Maintained on Eliquis. 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 followed by Dr. Palomino, currently in remission. Clinical Quality Measures DVT/VTE Risk/Contraindication: Risk Factor Score Per Nursin DIMPLE NOVOA MD Jul 31, 2019 10:41
[2019-07-31 18:00] VITALS: BP 111/53
[2019-07-31] MEDS: MELATONIN 3 MG TABLET PO PRN (19:51)
[2019-07-31] MEDS: DOCUSATE SODIUM 100 MG (COLACE) CAP PO SCH (19:51)
[2019-07-31] MEDS: ROSUVASTATIN 20 MG (CRESTOR) TABLET PO SCH (19:51)
[2019-07-31] MEDS: TRIAMCINOLONE 0.1% CR (KENALOG) 80 GM TUBE TP SCH (19:54)
[2019-08-01] MEDS: CYANOCOBALAMIN 1,000 MCG (VITAMIN B-12) TABLET PO SCH (05:31)
[2019-08-01] MEDS: MEROPENEM 500 MG in WATER (STERILE) FOR INJECTION 10 ML IV SCH ×2 (05:31→17:19)
[2019-08-01] MEDS: hydrOXYzine (ATARAX) 10 MG TAB PO PRN ×2 (05:37→22:39)
[2019-08-01] MEDS: inSUlin ASPART (NovoLOG) 1 UNIT/0.01 ML (CHARGE PER UNIT) SC SCH ×7 (06:22→22:30)
[2019-08-01 06:30] VITALS: BP 143/72
[2019-08-01 07:06] LABS: HEMOGLOBIN 7.8 G/DL (11.5-16.0); MEAN PLATELET VOLUME 9.7 FL (7.4-10.4); WHITE BLOOD COUNT 5.9 10^3/uL (4.3-11.0)
[2019-08-01 07:25] LABS: ALBUMIN 3.2 GM/DL (3.2-4.5); BILIRUBIN,TOTAL 0.7 MG/DL (0.1-1.0); CALCIUM 9.1 MG/DL (8.5-10.1); CREATININE SERUM 2.4 MG/DL (0.60-1.30); POTASSIUM 4.4 MMOL/L (3.6-5.0); TOTAL PROTEIN 6.6 GM/DL (6.4-8.2)
[2019-08-01] MEDS: TORSEMIDE 20 MG (DEMADEX) TAB PO SCH (08:13)
[2019-08-01] MEDS: ALLOPURINOL 100 MG (ZYLOPRIM) TAB PO SCH (08:13)
[2019-08-01] MEDS: MIDODRINE 10 MG (PROAMATINE) TAB PO SCH ×2 (08:13→22:30)
[2019-08-01] MEDS: PANTOPRAZOLE 40 MG (PROTONIX) TAB PO SCH (08:13)
[2019-08-01] MEDS: APIXABAN 2.5 MG (ELIQUIS) TABLET PO SCH ×2 (08:13→22:30)
[2019-08-01] MEDS: VITAMIN D3 1,000 UNITS (CHOLECALCIFEROL) TABLET PO SCH (08:13)
[2019-08-01] MEDS: CLOPIDOGREL 75 MG (PLAVIX) TABLET PO SCH (08:14)
[2019-08-01] MEDS: KCL 20 MEQ TAB (K-DUR) PO SCH ×2 (08:14→22:29)
[2019-08-01] MEDS: TRIAMCINOLONE 0.1% CR (KENALOG) 80 GM TUBE TP SCH ×2 (08:20→22:31)
--- NOTE | 2019-08-01 09:23 | Physical Therapy Daily Note ---
PT Daily Note-Current Subjective Pt requiring max encouragement to participate in PT session, refused to walk or sit up in recliner, states she has been on BSC for 45 minutes (call light within reach but did not use it), insistent upon going back to bed. Pain Numeric Pain Scale: 8 Comment: "just all over" Appearance Upon arrival , pt sitting on bedside commode with call light within reach. Dependent with carlos care as pt refused to attempt. At end of session, pt in bed with HOB elevated, call light, phone and bedside table within reach and pt holding and eating ice chips from cup with spoon. Mental Status Patient Orientation: Person, Place, Time, Eyes Open, Situation Transfers SCALE: Activities may be completed with or without assistive devices. 5-Aryceeqwja-dhuiybz completes the activity by him/herself with no assistance from a helper. 5-Set-up or Clean-up Assistance-helper sets up or cleans up; patient completes activity. [place] assists only prior to or following the activity. 4-Supervision or Touching Assistance-helper provides verbal cues and/or touching/steadying and/or contact guard assistance as patient completes activity. Assistance may be provided throughout the activity or intermittently. 3-Partial/Moderate Assistance-helper does LESS THAN HALF the effort. [place] lifts, holds or supports trunk or limbs, but provides less than half the effort. 2-Substantial/Maximal Assistance-helper does MORE THAN HALF the effort. [place] lifts or holds trunk or limbs and provides more than half the effort. 8-Fbclvfsdl-zcuxhb does ALL the effort. Patient does none of the effort to complete the activity. Or, the assistance of 2 or more helpers is required for the patient to complete the activity. If activity was not attempted, code reason: 7-Patient Refused. 9-Not Applicable-not attempted and the patient did not perform the activity before the current illness, exacerbation or injury. 10-Not Attempted due to Environmental Limitations-(lack of equipment, weather restraints, etc.). 88-Not Attempted due to Medical Conditions or Safety Concerns. Roll Left & Right (QC): 3 Sit to Lying (QC): 3 Sit to Stand (QC): 4 Chair/Syj-tk-Mnrbl Xfer(QC): 4 Toilet Transfer (QC): 4 Pt requiring skilled verb inst for safety and hand placement during sit to and from stand transfers. Pt in standing with UE support on FWW for carlos care and A to pull up briefs. Max encouragement to have pt participate in bed mobility. Weight Bearing Right Lower Extremity: Right Weight Bearing/Tolerated Left Lower Extremity: Left Weight Bearing/Tolerated Gait Training Pt refused Exercises Supine Ex: Bridging, Rolling, Heel Slides, Scooting, Hip abd/add Standing: Sit to Stand, Side steps, Weight shifts Treatments education, safety, toileting, carlos care, donning/doffing briefs, transfers, bed mobility, balance, strength, activity tolerance, functional mobility Assessment max encouragement required for pt to participate and actively assist with activities performed PT Long-Term Goals Long-Term Goals PT Remote Coders Goals Time Frame: Aug 13, 2019 Roll Left & Right (QC): 5 Sit to Lying (QC): 5 Lying-Sitting on Side/Bed(QC): 5 Sit to Stand (QC): 5 Chair/Gos-tt-Aqnys Xfer(QC): 5 Toilet Transfer (QC): 5 Car Transfer (QC): 5 Does the Patient Walk: Yes Walk 10 feet (QC): 5 Walk 50ft with 2 Turns (QC): 5 Walk 150 ft (QC): 5 Walking 10ft on Uneven Surface: 5 1 Step (curb) (QC): 9 4 Steps (QC): 9 12 Steps (QC): 9 Picking up an Object (QC): 5 PT Plan Treatment/Plan Treatment Plan: Continue Plan of Care Treatment Plan: Bed Mobility, Education, Functional Activity Sammie, Functional Strength, Gait, Safety, Therapeutic Exercise, Transfers Treatment Duration: Aug 13, 2019 Frequency: 6 times per week Estimated Hrs Per Day: .25 hour per day Patient and/or Family Agrees t: Yes Safety Risks/Education Patient Education: Transfer Techniques, Safety Issues Teaching Recipient: Patient Teaching Methods: Demonstration, Discussion Response to Teaching: Reinforcement Needed Time/GCodes Time In: 853 Time Out: 926 Total Billed Treatment Time: 33 Total Billed Treatment 1 visit, FA x23 min, EX x10 min SHAYNE FLORES PTA Aug 01, 2019 09:23
--- NOTE | 2019-08-01 11:22 | Cardiology Progress Note ---
Subjective Date Seen by Provider: Aug 01, 2019 Time Seen by Provider: 11:19 Subjective/Events-last exam Patient sitting up in bed, no new complaints. Denies any chest pain or dyspnea. Review of Systems General: No Chills, No Night Sweats; Fatigue, Malaise; No Appetite, No Other HEENT: No Head Aches, No Visual Changes, No Eye Pain, No Ear Pain, No Dysphasia, No Sinus Congestion, No Post Nasal Drip, No Sore Throat, No Other Pulmonary: No Dyspnea, No Cough, No Pleuritic Chest Pain, No Other Cardiovascular: No: Chest Pain, Palpitations, Orthopnea, Paroxysmal Noc. Dyspnea, Edema, Lt Headedness, Other Objective-Cardiology Exam Last Set of Vital Signs Vital Signs 08/01/19 06:30 Temp 36.8 Pulse 58 Resp 20 B/P (MAP) 143/72 (95) Pulse Ox 98 O2 Delivery Room Air Capillary Refill : Less Than 3 Seconds I&O Intake and Output 08/01/19 00:00 Intake Total 1980 ml Balance 1980 ml Intake Oral 1980 ml # Voids 8 # Bowel Movements 2 General: Alert, Oriented X3, Cooperative HEENT: Atraumatic, PERRLA Neck: Supple, No JVD, No Thyromegaly Lungs: Clear to Auscultation, Normal Air Movement Heart: Regular Rate, Normal S1, Normal S2, No Murmurs Abdomen: Normal Bowel Sounds, Soft, No Tenderness, No Hepatosplenomegaly, No Masses Extremities: No Clubbing, No Cyanosis, Normal Pulses, Other (+1 edema BLE) Skin: No Rashes, No Breakdown, No Significant Lesion Neuro: Normal Gait, Normal Speech, Strength at 5/5 X4 Ext, Normal Tone, Sensation Intact Psych/Mental Status: Mental Status NL, Mood NL Results Lab Laboratory Tests 08/01/19 06:45 A/P-Cardiology Admission Diagnosis Debility UTI Coronary artery disease Peripheral arterial disease Assessment/Plan Debility, generalized weakness, improving and asking to go home, managed by primary care physician UTI, ESBL, managed by primary care team Chronic renal insufficiency, stage III renal disease, followed by Dr. Long, Demadex dose, continue to monitor renal function closely. Skin rash, questionable allergic reaction, will try to obtain copy of her medication and review any new medication she started in the past couple of months, she had a skin biopsy done by Dr. Gonzales Coronary artery disease, multiple interventions in the past, reports a total of 11 stents. Multivessel disease. Cardiac catheterization was done in October 2012 showing severe stenosis in the midright coronary artery had stent deployed 3.0x24 mm Promus Elements stent expanded to 3.18 mm in the right coronary artery. Severe stenosis in the proximal diagonal artery, very small artery not amendable to intervention. 60 percent in-stent restenosis in the mid circumflex artery, underwent another cardiac catheterization on November 19, [address] Burch, had a stent to the circumflex artery, the stent sizes was not described in the report. Cardiac catheterization done December 26, 2016 with balloon angioplasty to the mid circumflex for 80 percent in-stent restenosis. Patient was brought back the same day where she underwent repeat cardiac catheterization after having chest pain, underwent another balloon angioplasty and stent deployment in the distal circumflex artery for recoil of the in-stent restenosis with the use of a new stent, 3.5 x 18 mm Xience Alpine stent. Most recent cardiac catheterization on February 04, [address] Mcdonnell after having type II myocardial infarction which showed moderate multivessel coronary artery disease, had FFR 0.83 to the LAD and 0.91 to the left circumflex artery, treated conservatively. Peripheral arterial disease, history of nonhealing foot ulcer and stent done in 2016, cardiac catheterization done in September 2017 showing total occlusion of the left SFA with complex intervention and balloon angioplasty then drug-coated balloon 5 x 100 then deployment of a new stent Innova 6 x 150 from the ostium of the left SFA to the mid SFA overlapping with old stent with excellent results, mild to moderate disease at the popliteal artery and below the trifurcation with small vessel disease, mild to moderate disease at the right SFA. Underwent peripheral angiogram on September 02, [address] Sotomayor with left SFA popliteal atherectomy and angioplasty, left anterior tibial artery angioplasty with widely patent vessels following intervention. Currently asymptomatic. Continue to monitor Anemia, continue to monitor. Labile hypertension, continue to monitor blood pressure. History of Intraocular hemorrhage in February 2019, underwent multiple laser procedure, follows with Dr. Hdez in [place] History of severe aortic valve stenosis s/p TAVR in April 2019, most recent 2D Echo done at May 2019 revealed prosthetic valve in aortic position functioning normally. Hyperlipidemia, patient reports intolerance to Lipitor, tolerating Crestor, continue to monitor lipids Diabetes mellitus, followed and managed by primary care physician. Sick sinus syndrome, history of permanent pacemaker placement. Medtronic device, pacemaker checkup was done in May 2019 showing good sensing and capture activity, continue to monitor Carotid stenosis, history of right carotid endarterectomy. CTA of neck done on February 01, 2016 revealed no significant stenosis in the internal carotid arteries. Prominent focus of stenosis in the distal aspect of the left vertebral artery at the foramen magnum and level dominant right vertebral artery demonstrates no significant stenosis. Carotid ultrasound in April 2018 showed mild bilateral disease. Continue to monitor Paroxysmal atrial fibrillation, history of intolerance to amiodarone. Maintained on Eliquis. 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 followed by Dr. Palomino, currently in remission. Patient was seen and evaluated with Portia, examination performed, management plan was discussed, agree with the current scribed note, I made few changes to the note using Italic font Patient is laying down in bed, feeling better. Still having edema Lungs were clear to auscultation, heart is regular Renal function are slightly worse, continue on lower dose Demadex and monitor tolerance and response Possible discharge tomorrow Clinical Quality Measures DVT/VTE Risk/Contraindication: Risk Factor Score Per Nursin Supervisory-Addendum Brief Supervisory Addendum Participated in pt care: history, MDM, physical Personally performed: exam, history, MDM Care discussed with: PORTIA SANTOS Aug 01, 2019 11:22 DIMPLE NOVOA MD Aug 01, 2019 11:45
--- NOTE | 2019-08-01 12:46 | Occupational Ther Daily Note ---
OT Current Status-Daily Note Subjective Pt alert, lying in bed. Pt agrees to therapy. No c/o pain at this time. Pt states that she lives with her granddaughter and that her granddaughter helps her. Mental Status/Objective Patient Orientation: Person, Place, Time, Situation ADL-Treatment Therapy Code Descriptions/Definitions Functional [place] Measure: 0=Not Assessed/NA 4=Minimal Assistance 1=Total Assistance 5=Supervision or Setup 2=Maximal Assistance 6=Modified [place] 3=Moderate Assistance 7=Complete IndependenceSCALE: Activities may be completed with or without assistive devices. 7-Xmqssqvcdi-ivuqulr completes the activity by him/herself with no assistance from a helper. 5-Set-up or Clean-up Assistance-helper sets up or cleans up; patient completes activity. [place] assists only prior to or following the activity. 4-Supervision or Touching Assistance-helper provides verbal cues and/or touching/steadying and/or contact guard assistance as patient completes activity. Assistance may be provided throughout the activity or intermittently. 3-Partial/Moderate Assistance-helper does LESS THAN HALF the effort. [place] lifts, holds or supports trunk or limbs, but provides less than half the effort. 2-Substantial/Maximal Assistance-helper does MORE THAN HALF the effort. [place] lifts or holds trunk or limbs and provides more than half the effort. 4-Xsdxuaubi-bbpjyh does ALL the effort. Patient does none of the effort to complete the activity. Or, the assistance of 2 or more helpers is required for the patient to complete the activity. If activity was not attempted, code reason: 7-Patient Refused. 9-Not Applicable-not attempted and the patient did not perform the activity before the current illness, exacerbation or injury. 10-Not Attempted due to Environmental Limitations-(lack of equipment, weather restraints, etc.). 88-Not Attempted due to Medical Conditions or Safety Concerns. Other Treatment Min A for supine to EOB with HOB 1/2 raised. SBA using FWW to transfer from bed to recliner. Pt then completed 2 sets 10 reps of light resistance theraband (3 exercises). After therapy, pt sitting in recliner with feet elevated. Call light/phone in reach. All needs met in room. OT Short Term Goals Short Term Goals Time Frame: Aug 05, 2019 Eatin Oral hygiene: 4 Toileting hygiene: 3 OT Building Construction Engineer Goals Building Construction Engineer Goals Time Frame: Aug 12, 2019 Eating (QC): 6 Oral Hygiene (QC): 5 Toileting Hygiene (QC): 4 Additional Goals: 1-Demonstrate ADL Tasks, 2-Verbalize Understanding, 3- ImproveStrength/Sammie 1=Demonstrate adherence to instructed precautions during ADL tasks. 2=Patient will verbalize/demonstrate understanding of assistive devices/modifications for ADL. 3=Patient will improve strength/tolerance for activity to enable patient to perform ADL's. OT Education/Plan Problem List/Assessment Assessment: Decreased Activ Tolerance, Decreased Safety Aware, Impaired Self- Care Skills Discharge Recommendations Plan/Recommendations: Continue POC Treatment Plan/Plan of Care Patient would benefit from OT for education, treatment and training to promote independence in ADL's, mobility, safety and/or upper extremity function for ADL's. Plan of Care: ADL Retraining, Functional Mobility, UE Funct Exercise/Act Treatment Duration: Aug 12, 2019 Frequency: 5 times per week Estimated Hrs Per Day: .5 hour per day Agreement: Yes Rehab Potential: Fair Time/GCodes Start Time: 11:35 Stop Time: 11:58 Total Time Billed (hr/min): 23 Billed Treatment Time 1 visit-FA 1 (15 min) EX 1 (8 min) KEMAR DEAN Aug 01, 2019 12:46
--- NOTE | 2019-08-01 13:47 | NUR ---
"RD ASSESSMENT PMHx: CAD; MA; HTN; TIA; IBS; DM; CA(breast); c-diff; hypercholesterolemia PT INTERACTION: Pt was awake and pleasant during nutrition follow-up. Pt states she has been eating okay since last assessment. Not avg PO intake of 68% x2d, per chart review. Pt states no issues with n/v/c/d since last assessment. Note last BM was 07/31 and pt currently on bowel regimen of colace HS, per chart review. ABNORMAL NUTRITION-RELATED LAB VALUES LOW: Na 133; Cl 94 HIGH: BUN 30; cr 2.40; glu 116; alkphos 144 Est. kcal needs: 7711-7482 kcal | 15-18 kcal/kg Est. Pro needs: 80-100 g Pro | 0.8-1.0 g Pro/kg PES STATEMENT: Inadequate oral intake (NI-2.1) related to loss of appetite as evidenced by pt interview | avg PO intake 68% x2d INTERVENTION: Continue with current diet order of Regular diet. Encouraged pt to eat when able. Will continue to follow and reassess as pt needs and status change. MONITOR/EVALUATE: PO Intake; Plan of Care; Hydration Status; Weight Status; Lab Values Rex Vega, MS, RD, LD"
--- NOTE | 2019-08-01 14:10 | NUR ---
Pastoral care visit.
--- NOTE | 2019-08-01 14:56 | Progress Note - Hospitalist ---
Subjective HPI/CC On Admission Date Seen by Provider: Aug 01, 2019 Time Seen by Provider: 10:00 Subjective/Events-last exam Pt reports feeling well. Planning on DCing home tomorrow. Will complete abx late tonight. 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 Objective Exam Vital Signs Vital Signs Date Time Temp Pulse Resp B/P (MAP) Pulse Ox O2 Delivery O2 Flow Rate FiO2 08/01/19 09:00 Room Air 08/01/19 06:30 36.8 58 20 143/72 (95) 98 Capillary Refill : Less Than 3 Seconds General Appearance: No Apparent Distress, Chronically ill, Obese Respiratory: Lungs Clear, No Respiratory Distress Cardiovascular: Regular Rate, Rhythm, No Murmur Results/Procedures Lab Laboratory Tests 08/01/19 06:45 Patient resulted labs reviewed. Assessment/Plan Assessment and Plan Assess & Plan/Chief Complaint Urinary tract infection Urine culture growing ESBL Escherichia coli and Pseudomonas Continue Merrem, will complete course late tonight - Can DC home tomorrow Type II diabetes mellitus with hypoglycemia Continue Levemir SSI Vertigo No further episodes since admission Paroxysmal atrial fibrillation Continue Eliquis Cardiology following Coronary artery disease Hyperlipidemia Continue Plavix and statin Clinical Quality Measures DVT/VTE Risk/Contraindication: Risk Factor Score Per Nursin ANALIA WARD MD Aug 01, 2019 14:56
[2019-08-01 18:00] VITALS: BP 133/60
[2019-08-01] MEDS: ROSUVASTATIN 20 MG (CRESTOR) TABLET PO SCH (22:30)
[2019-08-01] MEDS: DOCUSATE SODIUM 100 MG (COLACE) CAP PO SCH (22:30)
[2019-08-02 06:00] VITALS: BP 135/63
[2019-08-02] MEDS: CYANOCOBALAMIN 1,000 MCG (VITAMIN B-12) TABLET PO SCH (07:00)
[2019-08-02] MEDS: inSUlin ASPART (NovoLOG) 1 UNIT/0.01 ML (CHARGE PER UNIT) SC SCH ×4 (07:00→13:00)
--- NOTE | 2019-08-02 08:33 | Discharge Summary ---
Diagnosis/Chief Complaint Date of Admission Jul 29, 2019 at 12:36 Date of Discharge Primary Care Joe Robertson MD Discharge Summary Discharge Physical Exam Allergies: Coded Allergies: sulfamethoxazole (Verified Allergy, Intermediate, 10/05/15) tramadol (Verified Allergy, Intermediate, 10/05/15) trimethoprim (Verified Allergy, Intermediate, 10/05/15) Penicillins (Verified Allergy, Unknown, 10/05/15) codeine (Verified Allergy, Unknown, CAN TAKE MORPHINE, 10/05/15) hydrocodone (Verified Allergy, Unknown, 10/05/15) morphine (Verified Adverse Reaction, Intermediate, Nausea, 06/03/19) amiodarone (Verified Adverse Reaction, Mild, NAUSEA, dizziness, 02/01/16) Vitals & I&Os Vital Signs Date Time Temp Pulse Resp B/P (MAP) Pulse Ox O2 Delivery O2 Flow Rate FiO2 08/02/19 06:00 36.6 67 20 135/63 (87) 95 Room Air General Appearance: No Apparent Distress, Chronically ill, Obese Neurologic/Psychiatric: Alert, Oriented x3 Hospital Course Patient is a 79-year-old female who was admitted to [facility] for con tinued physical therapy and IV antibiotics due to ESBL UTI. She completed her course late August 01. She was discharged to home with resumption of home health. She is to follow-up with her primary care physician Dr. Robertson within the next week. She was discharged home in stable condition. Labs (last 24 hrs) Laboratory Tests 08/01/19 11:43: Glucometer 213H 08/01/19 16:11: Glucometer 211H 08/01/19 20:23: Glucometer 225H 08/02/19 06:04: Glucometer 203H Patient resulted labs reviewed. Pending Labs Laboratory Tests 08/02/19 06:04: Glucometer 203 Discussion & Recommendations Discharge Planning: >30 minutes discharge planning Discharge Home Medications: Active Scripts Active Reported Lynne Allergy (Fexofenadine HCl) 180 Mg Tablet 180 Mg PO BID PRN Benadryl Allergy (Diphenhydramine HCl) 25 Mg Tablet 25 Mg PO Q6H PRN Hydroxyzine HCl 25 Mg Tablet 25 Mg PO TID PRN Triamcinolone Acetonide 0.1% Cream (Triamcinolone Acet) 15 Gm Cr 1 Applic TP BID Metoprolol Succinate 25 Mg Tab.er.24h 12.5 Mg PO DAILY TAKES 1/2 (25MG) TABLET Torsemide 100 Mg Tablet 50 Mg PO DAILY TAKES 1/2 (100MG) TABLET Eliquis (Apixaban) 5 Mg Tablet 2.5 Mg PO BID TAKES 1/2 (5MG) TABLET Zofran (Ondansetron HCl) 4 Mg Tab 4 Mg PO Q6H PRN Colace (Docusate Sodium) 100 Mg Capsule 100 Mg PO HS Pantoprazole Sodium 40 Mg Tablet.dr 40 Mg PO DAILY Potassium Chloride 20 Meq Tablet.er 20 Meq PO BID Acetaminophen 325 Mg Tablet 650 Mg PO Q4H PRN Vitamin B-12 (Cyanocobalamin (Vitamin B-12)) 500 Mcg Tablet 1,000 Mcg PO DAILY Midodrine HCl 10 Mg Tablet 10 Mg PO BID Allopurinol 100 Mg Tablet 100 Mg PO DAILY Vitamin D3 (Cholecalciferol (Vitamin D3)) 5,000 Unit Capsule 5,000 Unit PO DAILY Premarin (Estrogens Conjugated) 30 Gm Cr VG MOWEFR Rosuvastatin Calcium 20 Mg Tablet 20 Mg PO HS Victoza 2-Luis Enrique (Liraglutide) 0.6 Mg/0.1 Ml Pen.injctr 1.2 Mg SC HS Clopidogrel (Clopidogrel Bisulfate) 75 Mg Tablet 75 Mg PO DAILY Novolog (Insulin Aspart) 100 Unit/1 Ml Susp PER INSULIN PUMP MDD 100 UNITS PER DAY Instructions to patient/family Please see electronic discharge instructions given to patient. Clinical Quality Measures DVT/VTE Risk/Contraindication: Risk Factor Score Per Nursin Copy Copies To 1: JOE ROBERTSON MD, KATELYN M MD Aug 02, 2019 08:33
--- NOTE | 2019-08-02 08:37 | D/C HH Face to Face Order ---
D/C Face to Face Orders Reconcile Patient Problems Problems Reviewed?: Yes Instructions for Patient Via [employer], Patient Instructions/FollowUp: Please continue to take her medications as written. Please follow-up with your primary care physician in the next week. Physician to follow Patient: Dr Gonzales Discharge Diet for Home: ADA Diet, Cardiac Diet Patient Data-Allergies,Ht & Wt Patient Allergies: Coded Allergies: sulfamethoxazole (Verified Allergy, Intermediate, 10/05/15) tramadol (Verified Allergy, Intermediate, 10/05/15) trimethoprim (Verified Allergy, Intermediate, 10/05/15) Penicillins (Verified Allergy, Unknown, 10/05/15) codeine (Verified Allergy, Unknown, CAN TAKE MORPHINE, 10/05/15) hydrocodone (Verified Allergy, Unknown, 10/05/15) morphine (Verified Adverse Reaction, Intermediate, Nausea, 06/03/19) amiodarone (Verified Adverse Reaction, Mild, NAUSEA, dizziness, 02/01/16) Height (Feet): 5 Height (Inches): 6.00 Weight (Pounds): 223 Weight (Ounces): 0.5 Home Health Need/Face to Face Date of Face to Face: Aug 02, 2019 Clinical Findings: Generalized weakness and fatigue, Unsteady gait I have seen Pt [id number]: Yes Discharged To: Home Diagnosis/Conditions: Insulin-dependent diabetes, sick sinus syndrome, heart failure, coronary artery disease, chronic kidney disease Patient is Homebound due to: Yumiko fall risk due to instabilty, Muscle weakness Homebound Status Due to the above stated illness, injury or surgical procedure (medical condition or diagnosis) and associated clinical findings, the patient is homebound because of his/her inability to leave home except with aid of a supportive device and/or person AND leaving the home requires a considerable and taxing effort or is medically contraindicated. Pt req the following assistanc: Aid of another person, Walker Home Health Nursing Orders Home Health Services Order: Nursing Services, Orthopedic Designer-Evaluate & Treat, Physical Therapy-Evaluate & Treat Therapy Orders Therapy Orders: OT (must have SN or PT order), Physical Therapy Therapy Specific Orders: Eval assistive deivces, Teach strategies/cognitive deficits, Teach enviro modifications/safety, Gait training, Increase strength/endurance Certify Stmt I certify that this patient is under my care and that I, a nurse practitioner or a physician; a assistant project manager working with me, had a face to face encounter that - meets the physician face to face encounter requirements with this patient as dated. ANALIA WARD MD Aug 02, 2019 08:37
[2019-08-02] MEDS: TORSEMIDE 20 MG (DEMADEX) TAB PO SCH (09:04)
[2019-08-02] MEDS: KCL 20 MEQ TAB (K-DUR) PO SCH (09:04)
[2019-08-02] MEDS: CLOPIDOGREL 75 MG (PLAVIX) TABLET PO SCH (09:04)
[2019-08-02] MEDS: APIXABAN 2.5 MG (ELIQUIS) TABLET PO SCH (09:04)
[2019-08-02] MEDS: PANTOPRAZOLE 40 MG (PROTONIX) TAB PO SCH (09:04)
[2019-08-02] MEDS: MIDODRINE 10 MG (PROAMATINE) TAB PO SCH (09:04)
[2019-08-02] MEDS: TRIAMCINOLONE 0.1% CR (KENALOG) 80 GM TUBE TP SCH (09:05)
[2019-08-02] MEDS: VITAMIN D3 1,000 UNITS (CHOLECALCIFEROL) TABLET PO SCH (09:05)
[2019-08-02] MEDS: ALLOPURINOL 100 MG (ZYLOPRIM) TAB PO SCH (09:05)
--- NOTE | 2019-08-02 11:31 | Therapy Team Discharge Summary ---
Therapy Discharge Summary Discharge Recommendations Date of Discharge Physical Therapy Upon initial evaluation, patient performed minimal activity and required minimal assist to complete all functional tasks. Patient appears to be limiting due to noncompliance with therapy treatment plan. When asked she will state she can't but then she will do it. Patient refuses to walk further than about 30' during hospital stay, however is SBA with mobility. Patient to return to home with family and caregiver hours as set prior to this admit. Goals addressed but not all attained. Occupational Therapy Decreased Activ Tolerance, Decreased Safety Aware, Impaired Self-Care Skills PT Senior Living Goals Senior Living Goals PT Senior Living Goals Time Frame: Aug 13, 2019 Roll Left to Right (QC): 5 (Goal met 08/01) Sit to Lying (QC): 5 (Goal met 08/01) Lying-Sitting on Side/Bed(QC): 5 (Goal met 08/01) Sit to Stand (QC): 5 (Goal met 08/01) Chair/Fms-wf-Pinpm Xfer(QC): 5 (Goal met 08/01) Car Transfer (QC): 5 (Goal met 08/01) Does the Patient Walk: Yes Walk 10 feet (QC): 5 (Goal met 08/01) Walk 10ft-Uneven Surface(QC): 5 (Goal not met) Walk 50ft with 2 Turns (QC): 5 (Goal not met) Walk 150 ft (QC): 5 (Goal not met) Gait Assistive Device: FWW 1 Step (curb) (QC): 9 4 Steps (QC): 9 12 Steps (QC): 9 Picking up an Object (QC): 5 (Goal not met) OT Kettle Operator Head Goals Senior Living Goals Time Frame: Aug 12, 2019 Eating (QC): 6 Oral Hygiene (QC): 5 Toileting Hygiene (QC): 4 Toilet/Commode Transfer (QC): 5 Additional Goals: 1-Demonstrate ADL Tasks, 2-Verbalize Understanding, 3- ImproveStrength/Sammie 1=Demonstrate adherence to instructed precautions during ADL tasks. 2=Patient will verbalize/demonstrate understanding of assistive devices/modifications for ADL. 3=Patient will improve strength/tolerance for activity to enable patient to perform ADL's. WOODY STARKEY PT Aug 02, 2019 11:31
--- NOTE | 2019-08-02 11:51 | Occ Therapy Progress Note ---
Therapy Progress Note Pt. up in chair when OT entered room. Pt. agrees to get dressed for discharge home today. However, pt. has no clothes available. Begins to work on calling granddaughter to bring in clothing. Pt. declines all further attempts at treatment. OT encourages pt. to ambulate to toilet. Pt. states that she has just returned. Encouraged UE exercises, ambulation, any activity. Pt. declines and states that she just wants to get a hold of granddaughter. Verbalizes that she is worried because she can't get a hold of her caregiver. This information is given to social work. Due to limited participation, further OT is not recommended at this time. 1, visit [id number] Discharge pt. ALISSON VERA OT Aug 02, 2019 11:51
--- NOTE | 2019-08-02 11:55 | Therapy Team Discharge Summary ---
Therapy Discharge Summary Discharge Recommendations Date of Discharge 08-02-19 Therapy D/C Recommendations: 24 hr Supervision, Home w/ Family Support, Scheduled Assistance Occupational Therapy Pt. seen for occupational therapy to increase overall strength for functional tasks. However, participation was limited throughout pt's stay. Pt. has caregiving assistance that assists with bathing, dressing, toileting. Lives wit h granddaughter who also assists at times. Declines most OOB activity unless she needs to toilet, or wants to sit up in chair. Max encouragement provided throughout stay. Pt. is discharging today home with continued caregiving support and family support. Goals not met as being able to address them was limited. No further OT recommendations at this time. Decreased Activ Tolerance, Decreased Safety Aware, Dependent Transfers, Impaired Bed Mobility, Impaired I ADL's, Impaired Self-Care Skills PT Fdc Goals Fdc Goals PT Fdc Goals Time Frame: Aug 13, 2019 Roll Left to Right (QC): 5 (Goal met 08/01) Sit to Lying (QC): 5 (Goal met 08/01) Lying-Sitting on Side/Bed(QC): 5 (Goal met 08/01) Sit to Stand (QC): 5 (Goal met 08/01) Chair/Vei-sn-Iavtg Xfer(QC): 5 (Goal met 08/01) Car Transfer (QC): 5 (Goal met 08/01) Does the Patient Walk: Yes Walk 10 feet (QC): 5 (Goal met 08/01) Walk 10ft-Uneven Surface(QC): 5 (Goal not met) Walk 50ft with 2 Turns (QC): 5 (Goal not met) Walk 150 ft (QC): 5 (Goal not met) Gait Assistive Device: FWW 1 Step (curb) (QC): 9 4 Steps (QC): 9 12 Steps (QC): 9 Picking up an Object (QC): 5 (Goal not met) OT Senior Administrative Associate Goals Senior Administrative Associate Goals Time Frame: Aug 12, 2019 Eating (QC): 6 (not met with this therapist.) Oral Hygiene (QC): 5 (not met with this therapist.) Toileting Hygiene (QC): 4 (not met) Toilet/Commode Transfer (QC): 5 (not met) Additional Goals: 1-Demonstrate ADL Tasks, 2-Verbalize Understanding, 3- ImproveStrength/Sammie 1=Demonstrate adherence to instructed precautions during ADL tasks. 2=Patient will verbalize/demonstrate understanding of assistive devices/modifi cations for ADL. 3=Patient will improve strength/tolerance for activity to enable patient to perform ADL's. ALISSON VERA OT Aug 02, 2019 11:55
--- NOTE | 2019-08-02 12:00 | NUR ---
PATIENT REFUSED AFTERNOON NOVOLOG DUE TO PATIENT IRRITATION AND DESIRE TO LEAVE
[2019-08-02 12:40] VITALS: BP 135/63
--- NOTE | 2019-08-02 15:15 | NUR ---
CM DISCHARGE PLANNING: Patient is dismissed to home today with resumption of [place] [facility]. She also has [facility] and has 38 hours of care giving through [facility]. Her campground caretaker is Deloris Wheat [phone] and her paid healthcare marketer is Monica Murphy.
== END 2019-08-02 12:40 | disposition home health service (06) | DRG 690 ==
LOC: 4TH 12:36
PROVIDERS: ADMIT Internal Medicine; ATTEND Internal Medicine
PROC: 093K7ZZ Control Bleeding in Nasal Mucosa and Soft Tissue, Via Natural or Artificial Opening (ICD-10-PCS; principal; 2019-07-29)
DX: N39.0 Urinary tract infection, site not specified (principal); Z16.12 Extended spectrum beta lactamase (ESBL) resistance; R53.1 Weakness; R21 Rash and other nonspecific skin eruption; I25.10 Atherosclerotic heart disease of native coronary artery without angina pectoris; E11.51 Type 2 diabetes mellitus with diabetic peripheral angiopathy without gangrene; I12.9 Hypertensive chronic kidney disease with stage 1 through stage 4 chronic kidney disease, or unspecified chronic kidney disease; N18.3 Chronic kidney disease, stage 3 (moderate); E11.22 Type 2 diabetes mellitus with diabetic chronic kidney disease; E78.5 Hyperlipidemia, unspecified; I48.0 Paroxysmal atrial fibrillation; R04.0 Epistaxis; Z85.3 Personal history of malignant neoplasm of breast; Z95.2 Presence of prosthetic heart valve; Z95.5 Presence of coronary angioplasty implant and graft; Z95.820 Peripheral vascular angioplasty status with implants and grafts; D64.9 Anemia, unspecified; B96.20 Unspecified Escherichia coli [E. coli] as the cause of diseases classified elsewhere; E11.649 Type 2 diabetes mellitus with hypoglycemia without coma
CPT/HCPCS: 36415; 80048; 80053; 82962; 85025; 85027

== ENCOUNTER 2019-09-23 14:48 | Inpatient (IN) | payer MEDICARE, MEDICAID ==
[~2019-09-23] VITALS: Ht 170.2 cm; Wt 96.1 kg
[2019-09-23] MEDS ORDERED: NS IV 500 ML 500 ML IV ONE ×2 (15:03→16:17)
[2019-09-23 15:12] LABS: BASOPHILS % (AUTO) 0 % (0-10); EOSINOPHILS # (AUTO) 0.3 10^3/uL (0.0-0.3); EOSINOPHILS % (AUTO) 4 % (0-10); HEMATOCRIT 46 % (35-52); HEMOGLOBIN 13.8 G/DL (11.5-16.0); LYMPHOCYTES % (AUTO) 27 % (12-44); MEAN CORPUSCULAR HEMOGLOBIN 23 PG (25-34); MEAN CORPUSCULAR HGB CONC 30 G/DL (32-36); MEAN CORPUSCULAR VOLUME 77 FL (80-99); MEAN PLATELET VOLUME 9.2 FL (7.4-10.4); MONOCYTES # (AUTO) 0.8 X 10^3 (0.0-1.0); MONOCYTES % (AUTO) 11 % (0-12); NEUTROPHILS # (AUTO) 4.2 X 10^3 (1.8-7.8); NEUTROPHILS % (AUTO) 58 % (42-75); PLATELET COUNT 208 10^3/uL (130-400); WHITE BLOOD COUNT 7.2 10^3/uL (4.3-11.0)
--- NOTE | 2019-09-23 15:25 | ED General ---
General Chief Complaint: Altered Mental Status Stated Complaint: LOSS OF APPETITE;WEAKNESS;CONFUSION Nursing Triage Note: ARRIVED VIA WC TO ROOM 06 WITH COMPLAINTS OF CONFUSION, LOSS OF APPITITE, WEAKNESS, AND NOT WALKING IN THE PST WEEK. Nursing Sepsis Screen: No Definite Risk Source of Information: Patient, Family Exam Limitations: No Limitations History of Present Illness Date Seen by Provider: Sep 23, 2019 Time Seen by Provider: 14:54 Initial Comments Here with report with increasing confusion and weakness over the last week. Has been eating less and drinking less. Having increasingly more difficulty with assisted walking. Lives at home with her granddaughter. Granddaughter notes that she has had increasingly concentrated urine with elevated blood sugars as recently as yesterday. That is a little better today with her blood sugar range in the 160s but it was in the 320s yesterday. Granddaughter also concerned rela stephanie to her hip. Patient is not complaining of hip pain and no pain when walking but leg appears shortened and she did have controlled slide to the ground from a chair 3 weeks ago and again earlier this week. She wanted to make sure that there is no fracture. Patient is answering questions and following commands but was to person left to get out of chair to bed here. No reported fever or diarrhea. Timing/Duration: 1 Week, Getting Worse Severity: Moderate Associated Systoms: No Chest Pain, No Cough, No Fever/Chills; Loss of Appetite, Malaise; No Nausea/Vomiting, No Shortness of Air; Weakness Allergies and Home Medications Allergies Coded Allergies: sulfamethoxazole (Verified Allergy, Intermediate, 10/05/15) tramadol (Verified Allergy, Intermediate, 10/05/15) trimethoprim (Verified Allergy, Intermediate, 10/05/15) Penicillins (Verified Allergy, Unknown, 10/05/15) codeine (Verified Allergy, Unknown, CAN TAKE MORPHINE, 10/05/15) hydrocodone (Verified Allergy, Unknown, 10/05/15) morphine (Verified Adverse Reaction, Intermediate, Nausea, 06/03/19) amiodarone (Verified Adverse Reaction, Mild, NAUSEA, dizziness, 02/01/16) Home Medications Acetaminophen 325 Mg Tablet, 650 MG PO Q4H PRN for PAIN-MILD (1-4), (Reported) Allopurinol 100 Mg Tablet, 100 MG PO DAILY, (Reported) Apixaban 5 Mg Tablet, 2.5 MG PO BID, (Reported) TAKES 1/2 (5MG) TABLET Cholecalciferol (Vitamin D3) 5,000 Unit Capsule, 5,000 UNIT PO DAILY, (Reported) Clopidogrel Bisulfate 75 Mg Tablet, 75 MG PO DAILY, (Reported) Cyanocobalamin (Vitamin B-12) 500 Mcg Tablet, 1,000 MCG PO DAILY, (Reported) Diphenhydramine HCl 25 Mg Tablet, 25 MG PO Q6H PRN for ITCHING, (Reported) Docusate Sodium 100 Mg Capsule, 100 MG PO HS, (Reported) Estrogens Conjugated 30 Gm Cr, VG MoWeFr, (Reported) Fexofenadine HCl 180 Mg Tablet, 180 MG PO BID PRN for CONGESTION, (Reported) Hydroxyzine HCl 25 Mg Tablet, 25 MG PO TID PRN for ITCHING, (Reported) Insulin Aspart 100 Unit/1 Ml Susp, PER INSULIN PUMP, (Reported) Liraglutide 0.6 Mg/0.1 Ml Pen.injctr, 1.2 MG SC HS, (Reported) Metoprolol Succinate 25 Mg Tab.er.24h, 12.5 MG PO DAILY, (Reported) TAKES 1/2 (25MG) TABLET Midodrine HCl 10 Mg Tablet, 10 MG PO BID, (Reported) Ondansetron HCl 4 Mg Tab, 4 MG PO Q6H PRN for NAUSEA/VOMITING-1ST LINE, (Report ed) Pantoprazole Sodium 40 Mg Tablet.dr, 40 MG PO DAILY, (Reported) Potassium Chloride 20 Meq Tablet.er, 20 MEQ PO BID, (Reported) Rosuvastatin Calcium 20 Mg Tablet, 20 MG PO HS, (Reported) Torsemide 100 Mg Tablet, 50 MG PO DAILY, (Reported) TAKES 1/2 (100MG) TABLET Triamcinolone Acet 15 Gm Cr, 1 APPLIC TP BID, (Reported) Patient Home Medication List Home Medication List Reviewed: Yes Review of Systems Review of Systems Constitutional: see HPI; No fever EENTM: No nose congestion, No throat pain Respiratory: dyspnea on exertion; No wheezing Cardiovascular: No chest pain; edema; No palpitations Gastrointestinal: No abdominal pain, No nausea, No vomiting Genitourinary: see HPI Musculoskeletal: see HPI; No back pain, No neck pain Skin: no symptoms reported Psychiatric/Neurological: See HPI All Other Systems Reviewed Negative Unless Noted: Yes Past Xckrtxz-Noskoc-Uvdlpq Hx Past Med/Social Hx: Reviewed Nursing Past Med/Soc Hx Patient Social History Alcohol Use: Denies Use Recreational Drug Use: No Smoking Status: Never a Smoker 2nd Hand Smoke Exposure: No Recent Foreign Travel: No Contact w/Someone Who Travel: No Recent Infectious Disease Expo: No Recent Hopitalizations: No Immunizations Up To Date Tetanus Booster (TDap): Less than 5yrs Date of Pneumonia Vaccine: Aug 02, 2018 Date of Influenza Vaccine: Apr 19, 2019 Seasonal Allergies Seasonal Allergies: No Past Medical History Surgeries: Yes (PACEMAKER, CAROTID ARTERY, HEART CATH-STENTS /ANGIOPLASTY, TAVR) Cardiac, Coronary Stent, Gallbladder, Hysterectomy, Oophorectomy, Orthopedic, Pacemaker, Vascular Surgery Respiratory: Yes Sleep Apnea Currently Using CPAP: No Currently Using BIPAP: No Cardiac: Yes (PACEMAKER, CHF, STENTS X12, AORTIC VALVE REPLACED, CHEST TUBES) Atrial Fibrillation, Chronic Edema/Swelling, Coronary Artery Disease, Heart Attack, Heart Murmur, High Cholesterol, Hypertension, Peripheral Vascular, Rheumatic Fever Neurological: Yes (TIA AFTER STENT IN JUNE) Neuropathy, TIA Reproductive Disorders: No [employer]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 ) Endocrine: Yes (INSULIN PUMP, 3 THYROID NODULES) Diabetes, Insulin dep Cataract Loss of Vision: Left Hearing Impairment: Deaf Cancer: Yes (BREAST CA 2010) Breast Did You Recieve Any Treatments: Yes What Type of Treatment Did You: Radiation Psychosocial: No Integumentary: Yes (DIABETIC FOOT ULCER ON LEFT--PT STATES IS NOW HEALED. ) Blood Disorders: No Adverse Reaction/Blood Tranf: No Family Medical History Reviewed Nursing Family Hx Family history was reviewed; no changes noted. No Pertinent Family Hx Physical Exam Vital Signs Vital Signs - First Documented 09/23/19 14:50 Temp 35.0 Pulse 81 Resp 16 B/P (MAP) 133/58 (83) Pulse Ox 98 O2 Delivery Room Air Capillary Refill : Less Than 3 Seconds Height, Weight, BMI Height: 5'6.00" Weight: 223lbs. 0.5oz. [id number]; 32.00 BMI Method:Stated General Appearance: No Apparent Distress, Obese HEENT: PERRL/EOMI, Other (mucous membranes very dry) Neck: Non Tender, Supple Respiratory: Lungs Clear, Normal Breath Sounds Cardiovascular: Regular Rate, Rhythm, No Murmur Gastrointestinal: Non Tender, Soft Back: Normal Inspection, No CVA Tenderness, No Vertebral Tenderness Extremity: No Calf Tenderness, Pedal Edema (1+ to mid tibia bilaterally), Pelvis Stable Neurologic/Psychiatric: Alert, Oriented x3 Skin: Normal Color, Warm/Dry Focused Exam Lactate Level 09/23/19 14:59: Lactic Acid Level 2.74*H 09/23/19 16:48: Lactic Acid Level Laboratory Tests Test 09/23/19 14:59 09/23/19 16:48 Lactic Acid Level 2.74 MMOL/L (0.50-2.00) *H Progress/Results/Core Measures Suspected Sepsis Recent Fever Within 48 Hours: No Infection Criteria Present: Suspected New Infection New/Unexplained Altered Menta: No Sepsis Screen: No Definite Risk SIRS Temperature: Pulse: 81 Respiratory Rate: 16 Laboratory Tests 09/23/19 14:59: White Blood Count 7.2 Blood Pressure 133 /58 Mean: 83 09/23/19 14:59: Lactic Acid Level 2.74*H 09/23/19 16:48: Laboratory Tests 09/23/19 14:59: Creatinine 1.86H, INR Comment 1.5H, Platelet Count 208, Total Bilirubin 0.9 Results/Orders Lab Results Laboratory Tests Test 09/23/19 14:59 09/23/19 16:27 09/23/19 16:48 Range/Units White Blood Count 7.2 4.3-11.0 10^3/uL Red Blood Count 5.89 H 4.35-5.85 10^6/uL Hemoglobin 13.8 11.5-16.0 G/DL Hematocrit 46 35-52 % Mean Corpuscular Volume 77 L 80-99 FL Mean Corpuscular Hemoglobin 23 L 25-34 PG Mean Corpuscular Hemoglobin Concent 30 L 32-36 G/DL Red Cell Distribution Width 10.0-14.5 % Platelet Count 208 130-400 10^3/uL Mean Platelet Volume 9.2 7.4-10.4 FL Neutrophils (%) (Auto) 58 42-75 % Lymphocytes (%) (Auto) 27 12-44 % Monocytes (%) (Auto) 11 0-12 % Eosinophils (%) (Auto) 4 0-10 % Basophils (%) (Auto) 0 0-10 % Neutrophils # (Auto) 4.2 1.8-7.8 X 10^3 Lymphocytes # (Auto) 2.0 1.0-4.0 X 10^3 Monocytes # (Auto) 0.8 0.0-1.0 X 10^3 Eosinophils # (Auto) 0.3 0.0-0.3 10^3/uL Basophils # (Auto) 0.0 0.0-0.1 10^3/uL Prothrombin Time 18.4 H 12.2-14.7 SEC INR Comment 1.5 H 0.8-1.4 Activated Partial Thromboplast Time 40 H 24-35 SEC Sodium Level 136 135-145 MMOL/L Potassium Level 3.7 3.6-5.0 MMOL/L Chloride Level 96 L 98-107 MMOL/L Carbon Dioxide Level 28 21-32 MMOL/L Anion Gap 12 5-14 MMOL/L Blood Urea Nitrogen 21 H 7-18 MG/DL Creatinine 1.86 H 0.60-1.30 MG/DL Estimat Glomerular Filtration Rate 26 BUN/Creatinine Ratio 11 Glucose Level 183 H 70-105 MG/DL Lactic Acid Level 2.74 *H 0.50-2.00 MMOL/L Calcium Level 9.9 8.5-10.1 MG/DL Corrected Calcium 10.0 8.5-10.1 MG/DL Total Bilirubin 0.9 0.1-1.0 MG/DL Aspartate Amino Transf (AST/SGOT) 30 5-34 U/L Alanine Aminotransferase (ALT/SGPT) 15 0-55 U/L Alkaline Phosphatase 136 40-136 U/L Troponin I 0.070 H <0.028 NG/ML Total Protein 7.7 6.4-8.2 GM/DL Albumin 3.9 3.2-4.5 GM/DL Thyroid Stimulating Hormone (TSH) 2.04 0.35-4.94 UIU/ML Urine Color YELLOW Urine Clarity SL CLOUDY Urine pH 5.5 5-9 Urine Specific [place] 1.020 1.016-1.022 Urine Protein NEGATIVE NEGATIVE Urine Glucose (UA) NEGATIVE NEGATIVE Urine Ketones NEGATIVE NEGATIVE Urine Nitrite POSITIVE H NEGATIVE Urine Bilirubin NEGATIVE NEGATIVE Urine Urobilinogen 0.2 < = 1.0 MG/DL Urine Leukocyte Esterase 2+ H NEGATIVE Urine RBC (Auto) TRACE-L NEGATIVE Urine RBC NONE /HPF Urine WBC 25-50 H /HPF Urine Squamous Epithelial Cells 2-5 /HPF Urine Crystals NONE /LPF Urine Bacteria LARGE H /HPF Urine Casts NONE /LPF Urine Mucus NEGATIVE /LPF Urine Culture Indicated CULTURE PENDING Micro Results Microbiology 09/23/19 Influenza Types A,B Antigen (CHERRY) - Final, Complete My Orders Orders - MOIRA HEART MD Cbc With Automated Diff (09/23/19 15:03) Comprehensive Metabolic Panel (09/23/19 15:03) Blood Culture (09/23/19 15:03) Sputum Culture (09/23/19 15:03) Urinalysis (09/23/19 15:03) Urine Culture (09/23/19 15:03) Protime With Inr (09/23/19 15:03) Partial Thromboplastin Time (09/23/19 15:03) Chest 1 View, Ap/Pa Only (09/23/19 15:03) Ed Iv/Invasive Line Start (09/23/19 15:03) Ekg Tracing (09/23/19 15:03) Troponin I (09/23/19 15:03) Vital Signs Adult Sepsis Patie Q15M (09/23/19 15:03) O2 (09/23/19 15:03) Remove Rings In Anticipation O (09/23/19 15:03) Lactic Acid Analyzer (09/23/19 15:03) Influenza A And B Antigens (09/23/19 15:03) Ed Iv/Invasive Line Start (09/23/19 15:03) Ns Iv 500 Ml (Sodium Chloride 0.9%) (09/23/19 15:03) Pelvis (09/23/19 15:03) Thyroid Stimulating Hormone (09/23/19 15:03) Ed Iv/Invasive Line Start (09/23/19 16:17) Ns Iv 500 Ml (Sodium Chloride 0.9%) (09/23/19 16:17) Straight Cath For Spec.-Adult (09/23/19 16:34) Meropenem (Merrem 500 Mg) (09/23/19 17:00) Medications Given in ED Current Medications Medications Dose Ordered Sig/Tresa Route Start Time Stop Time Status Last Admin Dose Admin Sodium Chloride 500 ml @ 0 mls/hr Q0M ONCE IV 09/23/19 15:03 09/23/19 15:06 DC 09/23/19 15:11 999 MLS/HR Sodium Chloride 500 ml @ 0 mls/hr Q0M ONCE IV 09/23/19 16:17 09/23/19 16:21 DC 09/23/19 16:36 999 MLS/HR Vital Signs/I&O 09/23/19 14:50 Temp 35.0 Pulse 81 Resp 16 B/P (MAP) 133/58 (83) Pulse Ox 98 O2 Delivery Room Air Capillary Refill : Less Than 3 Seconds Blood Pressure Mean: 83 Progress Note : Progress Note Seen and evaluated. IV, labs, UA, blood cultures and lactic acid ordered. Chest x-ray and pelvis x-ray ordered. EKG ordered. Normal saline 500 mL bolus Patient apparently has been taking home meds mostly that some days she misses especially potassium. Monitor patient. 1700: UTI noted. Repeat normal saline 500 mL bolus given. Patient did have mild elevation in lactic acid. Otherwise not and severe sepsis or septic shock category and does not require high-volume fluid re suscitation. Findings concerns discussed with patient and family who agree with plan. Meropenem 500 mg IV due to history of multiple antibiotic allergies and patient has multidrug resistant bacterial history with UTI including Escherichia coli and pseudomonas but it is sensitive to meropenem. Patient's troponin elevation noted but she is typically elevated with respect to her troponin. Case discussed with Dr. Ga who accepts patient for admission, inpatient status. ECG Initial ECG Impression Date: Sep 23, 2019 Initial ECG Impression Time: 15:19 Initial ECG Rate: 86 Initial ECG Rhythm: Normal Sinus Initial ECG Comparisson: Unchanged Comment Sinus rhythm with likely first-degree AV block. Normal axis. Global throughout. No evidence of ST elevation PR. Similar to previous of 07/23/19. Interpreted by me. Diagnostic Imaging Diagonstic Imaging: Xray Plain Films/CT/US/NM/MRI: chest Comments [facility] [place] [place] NAME: ANUP SUH [facility] REC#: [id number] PT STATUS: REG ER : 1940 PHYSICIAN: MOIRA HEART MD ADMIT DATE: 09/23/19/ER Signed Date of Exam:09/23/19 CHEST 1 VIEW, AP/PA ONLY EXAMINATION: Chest, one view. HISTORY: Confusion and loss of appetite. COMPARISON: 07/23/2019. FINDINGS: Left subclavian pacemaker is present. Transcatheter aortic valve replacement has been performed. There are coronary artery calcifications. Aorta is heavily calcified. There is mild scarring or atelectasis in the right lung base. No pleural effusion or pneumothorax. No edema or pneumonia. IMPRESSION: 1. Clear lungs. Dictated by: Dictated on workstation # [id number] Dict: 09/23/19 1624 Trans: 09/23/19 1645 [id number] Interpreted by: JOE BOLIVAR MD Electronically signed by: JOE BOLIVAR MD 09/23/19 1645 Diagonstic Imaging: Xray Plain Films/CT/US/NM/MRI: pelvis Comments [facility] [place] [place] NAME: ANUP SUH [facility] REC#: [id number] PT STATUS: REG ER : 1940 PHYSICIAN: MOIRA HEART MD ADMIT DATE: 09/23/19/ER Draft Date of Exam:09/23/19 PELVIS EXAMINATION: Pelvis, single view. COMPARISON: April 21, 2011. HISTORY: 79-year-old female, difficulty walking. FINDINGS: The pubic symphysis and sacroiliac joints are normally aligned. There is no obvious hip dislocation. There is no particularly prominent joint space loss of either hip, osteophyte formation or subchondral cystic change. There is no identified acute fracture. There is stent material present. There are vascular calcifications. IMPRESSION: No identified acute bony abnormality of the pelvis. Dictated on workstation # [id number] Dict: 09/23/19 1648 Trans: 09/23/19 1650 PJE [id number] Interpreted by: MARISSA BAUMANN MD Electronically signed by: Departure Impression Primary Impression: UTI (urinary tract infection) Qualified Codes: N30.00 - Acute cystitis without hematuria Additional Impression: Weakness Disposition: ADMITTED INPATIENT Condition: Stable Admissions Decision to Admit Reason: Admit from ER (General) Decision to Admit/Date: Sep 23, 2019 Time/Decision to Admit Time: 17:00 Departure-Patient Inst. Referrals: JOE ROBERTSON MD (PCP/Family) Primary Care Physician MOIRA HEART MD Sep 23, 2019 15:25
[2019-09-23 15:33] LABS: ALBUMIN 3.9 GM/DL (3.2-4.5); BILIRUBIN,TOTAL 0.9 MG/DL (0.1-1.0); CALCIUM 9.9 MG/DL (8.5-10.1); CREATININE SERUM 1.86 MG/DL (0.60-1.30); POTASSIUM 3.7 MMOL/L (3.6-5.0); TOTAL PROTEIN 7.7 GM/DL (6.4-8.2)
[2019-09-23 15:35] LABS: INR 1.5 (0.8-1.4); PROTHROMBIN TIME PATIENT 18.4 SEC (12.2-14.7)
--- NOTE | 2019-09-23 16:27 | Diagnostic Imaging Report ---
EXAMINATION: Chest, one view. HISTORY: Confusion and loss of appetite. COMPARISON: 07/23/2019. FINDINGS: Left subclavian pacemaker is present. Transcatheter aortic valve replacement has been performed. There are coronary artery calcifications. Aorta is heavily calcified. There is mild scarring or atelectasis in the right lung base. No pleural effusion or pneumothorax. No edema or pneumonia. IMPRESSION: 1. Clear lungs. Dictated by: Dictated on workstation # [id number]
[2019-09-23 16:35] LABS: BILIRUBIN,URINE NEGATIVE (NEGATIVE); CLARITY,URINE SL CLOUDY; COLOR,URINE YELLOW; GLUCOSE, URINE (UA) NEGATIVE (NEGATIVE); KETONES,URINE NEGATIVE (NEGATIVE); LEUKOCYTE ESTERASE ,URINE 2+ (NEGATIVE); NITRITE,URINE POSITIVE (NEGATIVE); PH,URINE 5.5 (5-9); PROTEIN,URINE NEGATIVE (NEGATIVE)
[2019-09-23 16:47] LABS: BACTERIA,URINE LARGE /HPF; WBC,URINE 25-50 /HPF
--- NOTE | 2019-09-23 16:51 | Diagnostic Imaging Report ---
EXAMINATION: Pelvis, single view. COMPARISON: April 21, 2011. HISTORY: 79-year-old female, difficulty walking. FINDINGS: The pubic symphysis and sacroiliac joints are normally aligned. There is no obvious hip dislocation. There is no particularly prominent joint space loss of either hip, osteophyte formation or subchondral cystic change. There is no identified acute fracture. There is stent material present. There are vascular calcifications. IMPRESSION: No identified acute bony abnormality of the pelvis. Dictated by: Dictated on workstation # [id number]
[2019-09-23] MEDS ORDERED: MEROPENEM 500 MG in WATER (STERILE) FOR INJECTION 10 ML IV ONE (17:00)
[2019-09-23 18:35] VITALS: BP 136/91
[2019-09-23] MEDS: LACTATED RINGERS 1,000 ML IV SCH (18:52)
[2019-09-23] MEDS ORDERED: CATHETER FLUSH 10 ML SYR IV PRN (19:00)
[2019-09-23] MEDS ORDERED: ONDANSETRON 4 MG/2 ML (SDV) Z0FRAN IV PRN (19:00)
--- NOTE | 2019-09-23 19:00 | NUR ---
ANUP SUH admitted to room 419-1, with an admitting diagnosis of UTI, on 09/23/19 from ED VIA BED, accompanied by family and staff.ANUP SUH introduced to surroundings, call light, bed controls, phone, TV, temperature control, lights, meal times, smoking policy, visitor policy, side rail policy, bathrooms and showers. Patient Rights given to patient in the handbook. ANUP SUH verbalizes understanding that [facility] is not responsible for the loss or damage to any personal effects or valuables that are kept in the patients posession during their hospitalization. ANUP SUH verbalizes understanding of Interdisciplinary Patient Education. Patient and/or family were informed about the Rapid Response Team and its purpose.
[2019-09-23 20:52] VITALS: BP 136/91
[2019-09-23] MEDS: inSUlin ASPART (NovoLOG) 1 UNIT/0.01 ML (CHARGE PER UNIT) SC SCH (21:08)
[2019-09-24] VITALS: BP 97/64
[2019-09-24] MEDS: MEROPENEM 500 MG/SWFI 10 ML IV PUSH IV SCH ×6 (01:30→16:28)
[2019-09-24 04:00] VITALS: BP 108/70
[2019-09-24 06:02] LABS: BASOPHILS % (AUTO) 0 % (0-10); EOSINOPHILS # (AUTO) 0.3 10^3/uL (0.0-0.3); EOSINOPHILS % (AUTO) 4 % (0-10); HEMATOCRIT 38 % (35-52); HEMOGLOBIN 11.5 G/DL (11.5-16.0); LYMPHOCYTES # (AUTO) 1.5 X 10^3 (1.0-4.0); LYMPHOCYTES % (AUTO) 23 % (12-44); MEAN CORPUSCULAR HEMOGLOBIN 23 PG (25-34); MEAN CORPUSCULAR HGB CONC 30 G/DL (32-36); MEAN CORPUSCULAR VOLUME 78 FL (80-99); MEAN PLATELET VOLUME 9.3 FL (7.4-10.4); MONOCYTES # (AUTO) 0.7 X 10^3 (0.0-1.0); MONOCYTES % (AUTO) 11 % (0-12); NEUTROPHILS # (AUTO) 3.9 X 10^3 (1.8-7.8); NEUTROPHILS % (AUTO) 61 % (42-75); PLATELET COUNT 173 10^3/uL (130-400); WHITE BLOOD COUNT 6.4 10^3/uL (4.3-11.0)
[2019-09-24 06:20] LABS: ALBUMIN 2.9 GM/DL (3.2-4.5); BILIRUBIN,TOTAL 0.7 MG/DL (0.1-1.0); CALCIUM 8.7 MG/DL (8.5-10.1); CREATININE SERUM 1.6 MG/DL (0.60-1.30); POTASSIUM 3.7 MMOL/L (3.6-5.0); TOTAL PROTEIN 5.6 GM/DL (6.4-8.2)
[2019-09-24] MEDS: inSUlin ASPART (NovoLOG) 1 UNIT/0.01 ML (CHARGE PER UNIT) SC SCH ×4 (06:27→19:30)
[2019-09-24 08:51] VITALS: BP 116/56
[2019-09-24] MEDS: APIXABAN 2.5 MG (ELIQUIS) TABLET PO SCH (09:09)
[2019-09-24] MEDS: CLOPIDOGREL 75 MG (PLAVIX) TABLET PO SCH (09:09)
--- NOTE | 2019-09-24 10:03 | Physical Therapy Evaluation ---
PT Evaluation-General Medical Diagnosis Admission Date Sep 23, 2019 at 17:06 Medical Diagnosis: UTI/weakness Onset Date: Sep 23, 2019 Therapy Diagnosis Therapy Diagnosis: generalized weakness/debility Height/Weight Height (Feet): 5 Height (Inches): 6.00 Weight (Pounds): 223 Weight (Ounces): 0.5 Precautions Precautions/Isolations: Contact Isolation, Fall Prevention Weight Bear Status Right Lower Extremity: Right Weight Bearing/Tolerated Left Lower Extremity: Left Weight Bearing/Tolerated Referral Physician: Harmeet Reason for Referral: Evaluation/Treatment Medical History Pertinent Medical History: Atrial Fib, CAD, DM, Heart Failure, HTN, MS, Neuropathy Current History ER with confusion and loss of appetite Reviewed History: Yes Social History Home: [facility] Current Living Status: Other Family Entry Into Home: Ramp Prior Prior Level of Function SCALE: Activities may be completed with or without assistive devices. 2-Jnrwrpfdvw-jpzvisj completes the activity by him/herself with no assistance from a helper. 5-Set-up or Clean-up Assistance-helper sets up or cleans up; patient completes activity. [place] assists only prior to or following the activity. 4-Supervision or Touching Assistance-helper provides verbal cues and/or touching/steadying and/or contact guard assistance as patient completes activity. Assistance may be provided throughout the activity or intermittently. 3-Partial/Moderate Assistance-helper does LESS THAN HALF the effort. [place] lif ts, holds or supports trunk or limbs, but provides less than half the effort. 2-Substantial/Maximal Assistance-helper does MORE THAN HALF the effort. [place] lifts or holds trunk or limbs and provides more than half the effort. 1-Qaqruhxtw-otrhdl does ALL the effort. Patient does none of the effort to complete the activity. Or, the assistance of 2 or more helpers is required for the patient to complete the activity. If activity was not attempted, code reason: 7-Patient Refused. 9-Not Applicable-not attempted and the patient did not perform the activity before the current illness, exacerbation or injury. 10-Not Attempted due to Environmental Limitations-(lack of equipment, weather restraints, etc.). 88-Not Attempted due to Medical Conditions or Safety Concerns. Bed Mobility: 4 Transfers (B,C,W/C): 4 Gait: 4 Stairs: 9 Wheelchair Mobility: 4 Indoor Mobility (Ambulation): Needed Some Help Stairs: Not Applicalbe Prior Devices Use: Manual wheelchair, Walker PT Evaluation-Current Subjective Patient agrees to PT. Pain Numeric Pain Scale: 0-No Pain Location: No Pain Reported Objective Patient Orientation: Confused Attachments: Mendez Catheter, IV ROM/Strength ROM Lower Extremities bilateral LE WFL Strength Lower Extremities 3/5 grossly bilateral LE Integumentary/Posture Integumentary refer to nursing notes Bowel Incontinence: No Bladder Incontinence: Mendez Cath Posture WFL Neuromuscular (Tone, Coordination, Reflexes) diminished coordination due to weakness with noted right lean Sensory Vision: Functional Hearing: Impaired Sensation Right Lower Extremit: Impaired Sensation Left Lower Extremity: Impaired Transfers Roll Left to Right (QC): 2 Sit to Lying (QC): 2 Lying to Sitting/Side of Bed(Q: 2 Sit to Stand (QC): 2 Chair/Dre-ps-Fvgxo Xfer(QC): 2 Toilet Transfer: 2 Gait Does the Patient Walk?: No and Walking Goal IS indicated Mode of Locomotion: Both Anticipated Mode of Locomotion: Both Distance: 5 steps Gait Assistive Device: FWW Comments/Gait Description patient is unsteady with noted right lean requiring max assist to maintain upright Balance Sitting Static: Fair Sitting Dynamic: Fair Standing Static: Poor Standing Dynamic: Poor Assessment/Needs 79 y.o. female, will benefit from skilled PT to address functional strength and mobility to improve current LOF to safely return to home with family at maximum LOF. Rehab Potential: Fair PT Snf Goals Shell Plater Goals PT Shell Plater Goals Time Frame: Oct 01, 2019 Roll Left & Right (QC): 5 Sit to Lying (QC): 5 Lying-Sitting on Side/Bed(QC): 5 Sit to Stand (QC): 5 Chair/Wzy-rj-Jergu Xfer(QC): 5 Toilet Transfer (QC): 5 Does the Patient Walk: Yes Walk 10 feet (QC): 4 Walk 50ft with 2 Turns (QC): 4 Walk 150 ft (QC): 9 PT Plan Problem List Problem List: Activity Tolerance, Functional Strength, Safety, Balance, Gait, Transfer, Bed Mobility Treatment/Plan Treatment Plan: Continue Plan of Care Treatment Plan: Bed Mobility, Education, Functional Activity Sammie, Functional Strength, Gait, Safety, Therapeutic Exercise, Transfers Treatment Duration: Oct 01, 2019 Frequency: 5 times per week Estimated Hrs Per Day: .25 hour per day Patient and/or Family Agrees t: Yes Time/GCodes Time In: 910 Time Out: 920 Total Billed Treatment Time: 10 Total Billed Treatment 1 visit EVModC 10 min WOODY STARKEY PT Sep 24, 2019 10:02
--- NOTE | 2019-09-24 10:43 | Occupational Therapy Eval ---
OT Evaluation-General/PLF Medical Diagnosis Admission Date Sep 23, 2019 at 17:06 Medical Diagnosis: UTI/weakness Onset Date: Sep 23, 2019 Therapy Diagnosis Therapy Diagnosis: debility Height/Weight Height (Feet): 5 Height (Inches): 6.00 Weight (Pounds): 223 Weight (Ounces): 0.5 Precautions Precautions/Isolations: Contact Isolation, Fall Prevention Safety Interventions: Bed Exit Alarm Referral Physician: [facility]meet Medical History Pertinent Medical History: Atrial Fib, CAD, DM, Heart Failure, HTN, NC, Neuropathy Additional Medical History Pacemaker, cardiac stent, sleep apnea, high cholesterol, TIA, UTI-chronic, c- diff, irritable bowel, Social History Home: [facility] Current Living Status: Other Family (granddaughter) Entry Into Home: [facility] ADL-Prior Level of Function SCALE: Activities may be completed with or without assistive devices. 8-Thgbkkvyur-ytzfvdg completes the activity by him/herself with no assistance from a helper. 5-Set-up or Clean-up Assistance-helper sets up or cleans up; patient completes activity. [place] assists only prior to or following the activity. 4-Supervision or Touching Assistance-helper provides verbal cues and/or touching/steadying and/or contact guard assistance as patient completes activity. Assistance may be provided throughout the activity or intermittently. 3-Partial/Moderate Assistance-helper does LESS THAN HALF the effort. Tyler lifts, holds or supports trunk or limbs, but provides less than half the effort. 2-Substantial/Maximal Assistance-helper does MORE THAN HALF the effort. [place] lifts or holds trunk or limbs and provides more than half the effort. 2-Sbnhyqhli-jpvewa does ALL the effort. Patient does none of the effort to complete the activity. Or, the assistance of 2 or more helpers is required for the patient to complete the activity. If activity was not attempted, code reason: 7-Patient Refused. 9-Not Applicable-not attempted and the patient did not perform the activity before the current illness, exacerbation or injury. 10-Not Attempted due to Environmental Limitations-(lack of equipment, weather restraints, etc.). 88-Not Attempted due to Medical Conditions or Safety Concerns. ADL PLOF Comments Pt states she lives with granddaughter and has assist with ADLs. States she is able to walk short distances with assist. Self Care: Needed Some Help DME/Equipment: Bath Bench, Grab Bars OT Current Status Subjective Pt on BSC when therapist arrives. Requests to return to chair. Mental Status/Objective Patient Orientation: Confused Attachments: Mendez Catheter, IV Current Glasses/Contacts: Yes ADL-Treatment ADL-Current Pt sit to stand with max assist. Assist x2 for toileting. One to assist with standing and one to assist with hygiene. Pt transferred to chair with max assist. Combed hair with min assist. Pt sitting in chair with needs met and daughter present after session. Eating (QC): 5 Toileting Hygiene (QC): 1 Education OT Patient Education: Rehab process Teaching Recipient: Patient Teaching Methods: Discussion Response to Teaching: Reinforcement Needed OT Intermediate Goals Intermediate Goals Time Frame: Oct 01, 2019 Eating (QC): 5 Oral Hygiene (QC): 5 Toileting Hygiene (QC): 4 Additional Goals: 2-Verbalize Understanding, 3-ImproveStrength/Sammie 1=Demonstrate adherence to instructed precautions during ADL tasks. 2=Patient will verbalize/demonstrate understanding of assistive devices/modifications for ADL. 3=Patient will improve strength/tolerance for activity to enable patient to perform ADL's. OT Education/Plan Problem List/Assessment Assessment: Decreased Activ Tolerance, Decreased Safety Aware, Decreased UE Strength, Dependent Transfers, Impaired Funct Balance, Impaired I ADL's, Impaired Self-Care Skills Discharge Recommendations Plan/Recommendations: Continue POC Treatment Plan/Plan of Care Treatment,Training & Education: Yes Patient would benefit from OT for education, treatment and training to promote independence in ADL's, mobility, safety and/or upper extremity function for ADL's. Plan of Care: ADL Retraining, Functional Mobility, UE Funct Exercise/Act Treatment Duration: Oct 01, 2019 Frequency: 5 times per week Estimated Hrs Per Day: .25 hour per day Rehab Potential: Fair Time/GCodes Start Time: 10:24 Stop Time: 10:36 Total Time Billed (hr/min): 12 Billed Treatment Time 1 visit, MARLINE(12minutes) ASHWINI MADERA OT Sep 24, 2019 10:43
[2019-09-24 11:17] VITALS: BP 123/59
[2019-09-24] MEDS ORDERED: BISACODYL 10 MG SUPP (DULCOLAX) PR PRN (13:45)
[2019-09-24] MEDS ORDERED: ANTACID SUSP 30 ML UDC (MYLANTA) PO PRN (13:45)
[2019-09-24] MEDS ORDERED: MELATONIN 3 MG TABLET PO PRN (13:45)
[2019-09-24] MEDS ORDERED: ONDANSETRON 4 MG (ZOFRAN) ORAL DISSOLVE TAB PO PRN (13:45)
[2019-09-24] MEDS ORDERED: polyethylene glycoL POWDER 17 GM (MIRALAX) PACK PO PRN (13:45)
[2019-09-24] MEDS ORDERED: ONDANSETRON 4 MG/2 ML (SDV) Z0FRAN IV PRN (13:45)
--- NOTE | 2019-09-24 14:04 | NUR ---
small hardened clot/packing came out of right side of the nose. Doctor notified, no nose bleeding present at this time
--- NOTE | 2019-09-24 14:09 | History & Physical-Hospitalist ---
History of Present Illness HPI/Chief Complaint Shamika Cain is an 79-year-old female well-known to the hospitalist service who presented with confusion and weakness. Her daughter reports that she had been having issues with this over the days leading up to her hospitalization. She had reportedly been eating less and drinking less. She had also been having higher blood sugars the usual. She also said that her urine had looked concentrated and dark. She denies any fevers or chills. She denies any chest pain or shortness of breath. She denies any abdominal pain, nausea, or vomiting. Source: patient, family Exam Limitations: no limitations Date Seen 09/24/19 Time Seen by a Provider: 13:30 Attending Physician Cris Walden MD PCP Rashaun Gonzales MD Referring Physician Date of Admission Sep 23, 2019 at 17:06 Home Medications & Allergies Home Medications Reviewed patient Home Medication Reconciliation performed by pharmacy medication reconciliations outside plant technician and/or nursing. Patients Allergies have been reviewed. Allergies Allergies Coded Allergies sulfamethoxazole (Verified Allergy, Intermediate, 10/05/15) tramadol (Verified Allergy, Intermediate, 10/05/15) trimethoprim (Verified Allergy, Intermediate, 10/05/15) Penicillins (Verified Allergy, Unknown, 10/05/15) codeine (Verified Allergy, Unknown, CAN TAKE MORPHINE, 10/05/15) hydrocodone (Verified Allergy, Unknown, 10/05/15) morphine (Verified Adverse Reaction, Intermediate, Nausea, 06/03/19) amiodarone (Verified Adverse Reaction, Mild, NAUSEA, dizziness, 02/01/16) Past Prfrnwr-Dwpmdc-Eyoskk Hx Past Med/Social Hx: Reviewed Nursing Past Med/Soc Hx Patient Social History Alcohol Use: Denies Use Recreational Drug Use: No Smoking Status: Never a Smoker 2nd Hand Smoke Exposure: No Recent Foreign Travel: No Contact w/other who traveled: No Recent Hopitalizations: No Recent Infectious Disease Expo: No Immunizations Up To Date Tetanus Booster (TDap): Less than 5yrs Date of Pneumonia Vaccine: Aug 02, 2018 Date of Influenza Vaccine: Apr 19, 2019 Seasonal Allergies Seasonal Allergies: No Past Medical History Surgeries: Cardiac, Coronary Stent, Gallbladder, Hysterectomy, Oophorectomy, Orthopedic, Pacemaker, Vascular Surgery Currently Using CPAP: No Currently Using BIPAP: No Cardiac: Atrial Fibrillation, Chronic Edema/Swelling, Coronary Artery Disease, Heart Attack, Heart Murmur, High Cholesterol, Hypertension, Peripheral Vascular, Rheumatic Fever Neurological: Neuropathy, TIA Reproductive: No Sexually Transmitted Disease: No Hysterectomy, Menopausal Genitourinary: Bladder Infection, UTI-Chronic Gastrointestinal: C-Diff, Irritable Bowel Endocrine: Diabetes, Insulin dep HEENT: Cataract Loss of Vision: Left Hearing Impairment: Deaf Cancer: Breast Did You Recieve Any Treatments: Yes What Type of Treatment Did You: Radiation History of Blood Disorders: No Adverse Reaction to Blood High: No Family History Reviewed Nursing Family Hx Cardiovascular disease 19 FATHER 19 MOTHER G8 BROTHER G8 SISTER G8 SISTER G8 SISTER Completed stroke 19 FATHER G8 SISTER Diabetes mellitus 19 FATHER G8 SISTER G8 SISTER FH: cancer G8 SISTER G8 SISTER Myocardial infarction G8 BROTHER (65 YEARS OLD) No Pertinent Family Hx Review of Systems Constitutional: weakness EENTM: no symptoms reported Respiratory: no symptoms reported Cardiovascular: no symptoms reported Gastrointestinal: no symptoms reported Genitourinary: no symptoms reported Musculoskeletal: no symptoms reported Skin: no symptoms reported Psychiatric/Neurological: No Symptoms Reported Physical Exam Physical Exam Vital Signs Vital Signs - First Documented 09/23/19 14:50 Temp 35.0 Pulse 81 Resp 16 B/P (MAP) 133/58 (83) Pulse Ox 98 O2 Delivery Room Air Capillary Refill : Less Than 3 Seconds Height, Weight, BMI Height: 5'6.00" Weight: 223lbs. 0.5oz. [id number]; 33.17 BMI Method:Stated General Appearance: No Apparent Distress, Obese Respiratory: Lungs Clear, Normal Breath Sounds, No Respiratory Distress Cardiovascular: Regular Rate, Rhythm, No Murmur Gastrointestinal: Normal Bowel Sounds, Non Tender, Soft Extremity: Normal Inspection, Non Tender, Pedal Edema Neurologic/Psychiatric: Alert, No Motor/Sensory Deficits, Normal Mood/Affect, Disoriented Skin: Normal Color, Warm/Dry Results Results/Procedures Labs Laboratory Tests 09/23/19 14:59 09/24/19 05:28 09/24/19 05:38 Patient resulted labs reviewed. Imaging: Reviewed Imaging Report Assessment/Plan Admission Diagnosis Urinary tract infection Admission Status: Inpatient Order (span 2 midnights) Reason for Inpatient Admission: UTI with history of ESBL requiring IV antibiotics Assessment and Plan Urinary tract infection History of ESBL Lactic acidosis Chronic kidney disease UA consistent with urinary tract infection Urine culture pending Lactic acid 2.74 on arrival Started on IV fluids Hold diuretics Started on meropenem Type II diabetes mellitus Sliding scale insulin Chronic atrial fibrillation Continue Eliquis and metoprolol DVT prophylaxis: Already receiving therapeutic anticoagulation Diagnosis/Problems Diagnosis/Problems (1) UTI (urinary tract infection) Status: Acute Qualifiers: Urinary tract infection type: acute cystitis Hematuria presence: without hematuria Qualified Codes: N30.00 - Acute cystitis without hematuria (2) History of ESBL E. coli infection Status: Chronic (3) Lactic acidosis Status: Resolved Resolution Date/Time: 06/04/19 @ 09:01 (4) CKD (chronic kidney disease) Status: Chronic Clinical Quality Measures DVT/VTE Risk/Contraindication: Risk Factor Score Per Nursin RFS Level Per Nursing on Admit: 3=High CRIS WALDEN MD Sep 24, 2019 14:09
[2019-09-24] MEDS: LACTATED RINGERS 1,000 ML IV SCH (14:10)
[2019-09-24 15:48] VITALS: BP 118/62
[2019-09-24 20:30] VITALS: BP 124/68
[2019-09-25] VITALS: BP 91/61
[2019-09-25] MEDS: MEROPENEM 500 MG/SWFI 10 ML IV PUSH IV SCH ×6 (00:18→15:57)
[2019-09-25] MEDS: APIXABAN 2.5 MG (ELIQUIS) TABLET PO SCH ×3 (00:18→20:26)
[2019-09-25 04:00] VITALS: BP 94/50
[2019-09-25] MEDS: inSUlin ASPART (NovoLOG) 1 UNIT/0.01 ML (CHARGE PER UNIT) SC SCH ×4 (06:02→20:06)
[2019-09-25 07:34] VITALS: BP 107/72
[2019-09-25] MEDS: CLOPIDOGREL 75 MG (PLAVIX) TABLET PO SCH (08:37)
[2019-09-25] MEDS ORDERED: TORSEMIDE 20 MG (DEMADEX) TAB PO ONE (09:23)
[2019-09-25 11:12] VITALS: BP 99/65
[2019-09-25] MEDS: ACETAMINOPHEN 325 MG TABLET PO PRN ×2 (14:02→20:33)
[2019-09-25] MEDS ORDERED: ALLOPURINOL 100 MG (ZYLOPRIM) TAB PO ONE (14:30)
--- NOTE | 2019-09-25 14:36 | Progress Note - Hospitalist ---
Subjective HPI/CC On Admission Date Seen by Provider: Sep 25, 2019 Time Seen by Provider: 14:00 Shamika Cain is an 79-year-old female well-known to the hospitalist service who presented with confusion and weakness. Her daughter reports that she had been having issues with this over the days leading up to her h ospitalization. She had reportedly been eating less and drinking less. She had also been having higher blood sugars the usual. She also said that her urine had looked concentrated and dark. She denies any fevers or chills. She denies any chest pain or shortness of breath. She denies any abdominal pain, nausea, or vomiting. Subjective/Events-last exam She reports right foot pain. She denies any other complaints or concerns. She is wondering when she will be able to get out of the hospital. She denies any fevers or chills. She denies any chest pain or shortness of breath. She denies any abdominal pain, nausea, or vomiting. Focused Exam Lactate Level 09/23/19 14:59: Lactic Acid Level 2.74*H 09/23/19 16:48: Lactic Acid Level 1.99 Objective Exam Vital Signs Vital Signs Date Time Temp Pulse Resp B/P (MAP) Pulse Ox O2 Delivery O2 Flow Rate FiO2 09/25/19 11:12 36.6 94 18 99/65 (76) 97 Room Air Capillary Refill : Less Than 3 Seconds General Appearance: No Apparent Distress, WD/WN, Obese Respiratory: Lungs Clear, Normal Breath Sounds, No Respiratory Distress Cardiovascular: No Murmur, Irregularly Irregular Gastrointestinal: Normal Bowel Sounds, Non Tender, Soft Extremity: Normal Inspection, Non Tender, Pedal Edema, Other (Right foot tenderness) Neurologic/Psychiatric: Alert, Oriented x3, No Motor/Sensory Deficits, Normal Mood/Affect Skin: Normal Color, Warm/Dry Results/Procedures Lab Patient resulted labs reviewed. Imaging: Reviewed Imaging Report Assessment/Plan Assessment and Plan Assess & Plan/Chief Complaint Urinary tract infection History of ESBL UA consistent with urinary tract infection Urine culture growing gram-negative elsie, final ID and susceptibilities pending Continue meropenem Chronic kidney disease Discontinue IV fluids Resume diuretics Foot pain Pain regimen ordered DAILY hose for edema Type II diabetes mellitus Sliding scale insulin Chronic atrial fibrillation Continue Eliquis and metoprolol DVT prophylaxis: Already receiving therapeutic anticoagulation Lactic acidosis, resolved Diagnosis/Problems Diagnosis/Problems (1) UTI (urinary tract infection) Status: Acute Qualifiers: Urinary tract infection type: acute cystitis Hematuria presence: without hematuria Qualified Codes: N30.00 - Acute cystitis without hematuria (2) History of ESBL E. coli infection Status: Chronic (3) Lactic acidosis Status: Resolved Resolution Date/Time: 06/04/19 @ 09:01 (4) CKD (chronic kidney disease) Status: Chronic Clinical Quality Measures DVT/VTE Risk/Contraindication: Risk Factor Score Per Nursin RFS Level Per Nursing on Admit: 3=High CRIS WALDEN MD Sep 25, 2019 14:36
[2019-09-25 16:00] VITALS: BP 111/57
[2019-09-25 19:45] VITALS: BP 123/69
[2019-09-26 00:11] VITALS: BP 128/57
[2019-09-26] MEDS: MEROPENEM 500 MG/SWFI 10 ML IV PUSH IV SCH ×6 (01:50→17:36)
[2019-09-26 04:00] VITALS: BP 121/60
[2019-09-26 05:22] LABS: BASOPHILS % (AUTO) 0 % (0-10); EOSINOPHILS # (AUTO) 0.2 10^3/uL (0.0-0.3); EOSINOPHILS % (AUTO) 3 % (0-10); HEMATOCRIT 39 % (35-52); HEMOGLOBIN 11.8 G/DL (11.5-16.0); LYMPHOCYTES # (AUTO) 1.7 X 10^3 (1.0-4.0); LYMPHOCYTES % (AUTO) 20 % (12-44); MEAN CORPUSCULAR HEMOGLOBIN 24 PG (25-34); MEAN CORPUSCULAR HGB CONC 30 G/DL (32-36); MEAN CORPUSCULAR VOLUME 78 FL (80-99); MEAN PLATELET VOLUME 9.3 FL (7.4-10.4); MONOCYTES % (AUTO) 12 % (0-12); NEUTROPHILS # (AUTO) 5.4 X 10^3 (1.8-7.8); NEUTROPHILS % (AUTO) 65 % (42-75); PLATELET COUNT 159 10^3/uL (130-400); WHITE BLOOD COUNT 8.3 10^3/uL (4.3-11.0)
[2019-09-26 05:46] LABS: CALCIUM 8.6 MG/DL (8.5-10.1); CREATININE SERUM 1.54 MG/DL (0.60-1.30); POTASSIUM 3.9 MMOL/L (3.6-5.0)
[2019-09-26] MEDS: inSUlin ASPART (NovoLOG) 1 UNIT/0.01 ML (CHARGE PER UNIT) SC SCH ×4 (05:56→19:30)
[2019-09-26] MEDS: TORSEMIDE 20 MG (DEMADEX) TAB PO SCH (08:03)
[2019-09-26] MEDS: ALLOPURINOL 100 MG (ZYLOPRIM) TAB PO SCH (08:04)
[2019-09-26] MEDS: APIXABAN 2.5 MG (ELIQUIS) TABLET PO SCH ×2 (08:04→22:18)
[2019-09-26] MEDS: CLOPIDOGREL 75 MG (PLAVIX) TABLET PO SCH (08:04)
[2019-09-26 08:10] VITALS: BP 122/59
[2019-09-26] MEDS: ACETAMINOPHEN 325 MG TABLET PO PRN (08:25)
--- NOTE | 2019-09-26 10:09 | Physical Therapy Daily Note ---
PT Daily Note-Current Subjective Patient reports incontinence BM requesting commode use. Mental Status Patient Orientation: Person, Time, Situation Attachments: Mendez Catheter Transfers SCALE: Activities may be completed with or without assistive devices. 0-Irnclhyyba-qwrulng completes the activity by him/herself with no assistance from a helper. 5-Set-up or Clean-up Assistance-helper sets up or cleans up; patient completes activity. [place] assists only prior to or following the activity. 4-Supervision or Touching Assistance-helper provides verbal cues and/or touching/steadying and/or contact guard assistance as patient completes a ctivity. Assistance may be provided throughout the activity or intermittently. 3-Partial/Moderate Assistance-helper does LESS THAN HALF the effort. [place] lifts, holds or supports trunk or limbs, but provides less than half the effort. 2-Substantial/Maximal Assistance-helper does MORE THAN HALF the effort. [place] lifts or holds trunk or limbs and provides more than half the effort. 9-Qvrmcupse-bmoeqf does ALL the effort. Patient does none of the effort to complete the activity. Or, the assistance of 2 or more helpers is required for the patient to complete the activity. If activity was not attempted, code reason: 7-Patient Refused. 9-Not Applicable-not attempted and the patient did not perform the activity before the current illness, exacerbation or injury. 10-Not Attempted due to Environmental Limitations-(lack of equipment, weather restraints, etc.). 88-Not Attempted due to Medical Conditions or Safety Concerns. Roll Left & Right (QC): 1 Sit to Lying (QC): 1 Lying to Sitting/Side of Bed(Q: 1 Sit to Stand (QC): 1 Chair/Paj-gh-Navwg Xfer(QC): 1 severe lean to left with inability to correct requiring dependent assist with all mobility and SPT bed to commode. Patient unable to utilize FWW for sit to stand and SPT. Weight Bearing Right Lower Extremity: Right Weight Bearing/Tolerated Left Lower Extremity: Left Weight Bearing/Tolerated Assessment Patient tolerates minimal activity at this time. Multiple BM incontinence episodes per nursing. PT to increase activity as tolerated by patient. Patient reports she utilizes w/c and recliner at home vs. FWW for mobility. PT Usp Goals Adjuster Leader Goals PT Usp Goals Time Frame: Oct 01, 2019 Roll Left & Right (QC): 5 Sit to Lying (QC): 5 Lying-Sitting on Side/Bed(QC): 5 Sit to Stand (QC): 5 Chair/Wrs-gc-Xaejy Xfer(QC): 5 Toilet Transfer (QC): 5 Does the Patient Walk: Yes Walk 10 feet (QC): 4 Walk 50ft with 2 Turns (QC): 4 Walk 150 ft (QC): 9 PT Plan Treatment/Plan Treatment Plan: Continue Plan of Care Treatment Plan: Bed Mobility, Education, Functional Activity Sammie, Functional Strength, Gait, Safety, Therapeutic Exercise, Transfers Treatment Duration: Oct 01, 2019 Frequency: 5 times per week Estimated Hrs Per Day: .25 hour per day Patient and/or Family Agrees t: Yes Time/GCodes Time In: 943 Time Out: 1000 Total Billed Treatment Time: 17 Total Billed Treatment 1 visit FA 17 min WOODY STARKEY PT Sep 26, 2019 10:09
[2019-09-26] MEDS ORDERED: CHOL100048 PO (11:35)
[2019-09-26] MEDS ORDERED: DIAZ5TAB49 PO (11:39)
[2019-09-26] MEDS ORDERED: SERT25TA5 PO (11:39)
[2019-09-26] MEDS ORDERED: FERR325T18 PO (11:39)
--- NOTE | 2019-09-26 11:42 | NUR ---
PT HAD DETAILED MED LIST ON HER CHART- I SPOKE WITH THE PT BUT SHE SAYS SHE DOES NOT TAKE CARE OF HER MEDICATIONS AND TO CALL HER GRAND DAUGHTER PADMAJA. I SPOKE WITH PADMAJA AND WENT THRU THE EXT MED HISTORY TO COMPLETE THE MED REC. THERE WERE A FEW DISCREPANCIES ON HER MED LIST- RICKY WAS ON THE LIST BUT SHE IS NO LONGER TAKING. SERTRALINE 25MG AND IRON 325MG THE PT IS CURRENTLY TAKING BUT ARE NOT ON THE LIST. TORSEMIDE 100MG- EXT MED HIS SHOWS " 1 TAB DAILY" HOWEVER THE PT IS TAKING TAB DAILY ELIQUIS 5MG- EXT MED HIST SHOWS" 1 TAB BID" BUT THE PT IS TAKING TAB BID. OTC MEDS: BENADRYL TYLENOL
[2019-09-26 12:01] VITALS: BP 119/59
--- NOTE | 2019-09-26 13:09 | Occupational Ther Daily Note ---
OT Current Status-Daily Note Subjective Pt seen in recliner chair, food placed in front of pt. Pt's daughter present through session. Pt and daughter states pt has not had much of appetite- pt's daughter expresses pt did not eat breakfast and has barely touched lunch. Pt does not rate pain, states pain in bilateral feet from neuropathy and previous hx with "charcot" per family. Mental Status/Objective Patient Orientation: Person, Place, Situation Attachments: Mendez Catheter ADL-Treatment Therapy Code Descriptions/Definitions Functional Armstrong Measure: 0=Not Assessed/NA 4=Minimal Assistance 1=Total Assistance 5=Supervision or Setup 2=Maximal Assistance 6=Modified Armstrong 3=Moderate Assistance 7=Complete IndependenceSCALE: Activities may be completed with or without assistive devices. 2-Vkazeloorj-pzsobpi completes the activity by him/herself with no assistance from a helper. 5-Set-up or Clean-up Assistance-helper sets up or cleans up; patient completes activity. [place] assists only prior to or following the activity. 4-Supervision or Touching Assistance-helper provides verbal cues and/or touching/steadying and/or contact guard assistance as patient completes activity. Assistance may be provided throughout the activity or intermittently. 3-Partial/Moderate Assistance-helper does LESS THAN HALF the effort. [place] lifts, holds or supports trunk or limbs, but provides less than half the effort. 2-Substantial/Maximal Assistance-helper does MORE THAN HALF the effort. [place] lifts or holds trunk or limbs and provides more than half the effort. 8-Nzxlletmr-rlzklc does ALL the effort. Patient does none of the effort to complete the activity. Or, the assistance of 2 or more helpers is required for the patient to complete the activity. If activity was not attempted, code reason: 7-Patient Refused. 9-Not Applicable-not attempted and the patient did not perform the activity before the current illness, exacerbation or injury. 10-Not Attempted due to Environmental Limitations-(lack of equipment, weather restraints, etc.). 88-Not Attempted due to Medical Conditions or Safety Concerns. Eating (QC): 7 Oral Hygiene (QC): 7 Shower/Bathe Self (QC): 7 On/Off Footwear: 1 (pt's daughter states she would like OT to look at feet. BLE edematous, non pitting; pt's L foot demonstrates edema on sole of foot.) Toileting Hygiene (QC): 7 Toilet Transfer (QC): 7 Other Treatment Pt denies sponge bath or out of chair activity. Pt's daughter states pt has expressed pain in both feet, state she c/o pain post-positioning. Pt educated on edema and increased elevation of BLE for edema management. Pt's B socks doffed/ donned post-examination of feet. Pt's feet elevated with 2 pillows with TD. Pt agrees to chair exercises with theraband: completes 10 reps bilaterally of horizontal ab/adduction (w/out theraband), shoulder flexion (without theraband), and bicep curls (theraband used). Pt denies additional activities. Pt and family member educated on use of theraband for strength training, educated on completing when increased energy. Pt left in chair, all needs met, call light in reach,tray placed in front of pt with daughter present. Education OT Patient Education: Correct positioning, Exercise program, Home exercise program, Instructions to caregiver Teaching Recipient: Patient, Family Teaching Methods: Demonstration, Discussion Response to Teaching: Verbalize Understanding, Return Demonstration OT Usp Goals Hvac Journeyman Goals Time Frame: Oct 01, 2019 Eating (QC): 5 Oral Hygiene (QC): 5 Toileting Hygiene (QC): 4 Additional Goals: 2-Verbalize Understanding, 3-ImproveStrength/Sammie 1=Demonstrate adherence to instructed precautions during ADL tasks. 2=Patient will verbalize/demonstrate understanding of assistive devices/modifications for ADL. 3=Patient will improve strength/tolerance for activity to enable patient to perform ADL's. OT Education/Plan Problem List/Assessment Assessment: Decreased Activ Tolerance, Decreased UE Strength, Dependent Transfers, Edema, Impaired Bed Mobility, Impaired Funct Balance, Impaired I ADL's, Impaired Self-Care Skills Discharge Recommendations Plan/Recommendations: Continue POC Therapy Discharge Recommendati: 24 Hour Supervision, Post Acute OT Treatment Plan/Plan of Care Treatment,Training & Education: Yes Patient would benefit from OT for education, treatment and training to promote independence in ADL's, mobility, safety and/or upper extremity function for ADL's. Plan of Care: ADL Retraining, Functional Mobility, UE Funct Exercise/Act Treatment Duration: Oct 01, 2019 Frequency: 5 times per week Estimated Hrs Per Day: .25 hour per day Rehab Potential: Fair Time/GCodes Start Time: 12:34 Stop Time: 12:54 Total Time Billed (hr/min): 20 Billed Treatment Time 1, EX (20) QUANG KING OTR Sep 26, 2019 13:09
[2019-09-26] MEDS ORDERED: DIAZEPAM 5 MG (VALIUM) TABLET PO NR (13:30)
[2019-09-26] MEDS ORDERED: ALLOPURINOL 100 MG (ZYLOPRIM) TAB PO SCH (14:00)
[2019-09-26] MEDS ORDERED: ACETAMINOPHEN 325 MG TABLET PO PRN (15:30)
[2019-09-26] MEDS ORDERED: NON-FORMULARY MEDICATION 1 EA EA (Hydroxyzine HCl 25 MG) PO PRN (15:30)
[2019-09-26] MEDS ORDERED: diphenhydrAMINE 25 MG TAB (BENADRYL) PO PRN (15:30)
[2019-09-26] MEDS ORDERED: DIAZEPAM 5 MG (VALIUM) TABLET PO PRN (15:30)
[2019-09-26 16:00] VITALS: BP 131/56
[2019-09-26] MEDS ORDERED: hydrOXYzine (VISTARIL/ATARAX) 25 MG capsule/tablet PO PRN (16:00)
[2019-09-26] MEDS: MIDODRINE 10 MG (PROAMATINE) TAB PO SCH (17:36)
[2019-09-26 19:05] VITALS: BP 151/72
--- NOTE | 2019-09-26 19:45 | Progress Note - Hospitalist ---
Subjective HPI/CC On Admission Date Seen by Provider: Sep 26, 2019 Time Seen by Provider: 13:45 Shamika Cain is an 79-year-old female well-known to the hospitalist service who presented with confusion and weakness. Her daughter reports that she had been having issues with this over the days leading up to her hospitalization. She had reportedly been eating less and drinking less. She had also been having higher blood sugars the usual. She also said that her urine had looked concentrated and dark. She denies any fevers or chills. She denies any chest pain or shortness of breath. She denies any abdominal pain, nausea, or vomiting. Subjective/Events-last exam Pt reports feeling better but that her feet are hurting her. She states it feels like when she has had goutin the past. She denies pain when I press on her feet but daughter states she is downplaying her pain. Objective Exam Vital Signs Vital Signs Date Time Temp Pulse Resp B/P (MAP) Pulse Ox O2 Delivery O2 Flow Rate FiO2 09/26/19 16:00 36.4 82 18 131/56 (81) 95 Room Air Capillary Refill : Less Than 3 Seconds General Appearance: No Apparent Distress, Chronically ill Respiratory: Lungs Clear, No Respiratory Distress Cardiovascular: Regular Rate, Rhythm, No Murmur Gastrointestinal: Normal Bowel Sounds, Soft Results/Procedures Lab Laboratory Tests 09/26/19 04:40 Patient resulted labs reviewed. Imaging: Reviewed Imaging Report Assessment/Plan Assessment and Plan Assess & Plan/Chief Complaint Urinary tract infection History of ESBL UA consistent with urinary tract infection Urine culture growing klebsiella, awaiting sensitivities Continue meropenem for now Chronic kidney disease Creatinine improved, trend Foot pain Pain regimen ordered DAILY jennie for edema - Resumed allopurinol as she had had relief with this before Type II diabetes mellitus Sliding scale insulin Chronic atrial fibrillation PAD s/p TAVR for aortic stenosis Continue Eliquis, metoprolol, Plavix DVT prophylaxis: Already receiving therapeutic anticoagulation Lactic acidosis, resolved Clinical Quality Measures DVT/VTE Risk/Contraindication: Risk Factor Score Per Nursin RFS Level Per Nursing on Admit: 3=High ANALIA WARD MD Sep 26, 2019 19:45
[2019-09-26] MEDS ORDERED: NON-FORMULARY MEDICATION 1 EA EA (Sertraline HCl 25 MG) PO SCH (21:00)
[2019-09-26] MEDS: ROSUVASTATIN 20 MG (CRESTOR) TABLET PO SCH (22:18)
[2019-09-26] MEDS: SERTRALINE 50 MG (ZOLOFT) TABLET PO SCH (22:18)
[2019-09-27 00:35] VITALS: BP 128/75
[2019-09-27] MEDS: MEROPENEM 500 MG/SWFI 10 ML IV PUSH IV SCH ×4 (02:00→09:22)
[2019-09-27 04:00] VITALS: BP 121/66
--- NOTE | 2019-09-27 04:44 | NUR ---
PT'S INSULIN PUMP READ THAT B/WAS DANGEROUSLY LOW AT 52. THIS RN GAVE HER TWO CUPS OF ORANGE JUICE AND CHECKED HER B/S WITH ACCUCHECK WHICH READ 61. KATIE, DOOR PERSON, NOTIFIED AT THIS TIME. PT REPORTS SHE FEELS 'FINE'. SAFETY COMPANION IN ROOM AT TIME TO DRAW VENOUS BLOOD FOR BMP. PT GIVEN ONE MORE CUP OF ORANGE JUICE.
[2019-09-27 04:58] LABS: HEMATOCRIT 37 % (35-52); HEMOGLOBIN 11.6 G/DL (11.5-16.0); MEAN CORPUSCULAR HEMOGLOBIN 24 PG (25-34); MEAN CORPUSCULAR HGB CONC 31 G/DL (32-36); MEAN CORPUSCULAR VOLUME 78 FL (80-99); MEAN PLATELET VOLUME 9.2 FL (7.4-10.4); PLATELET COUNT 163 10^3/uL (130-400); WHITE BLOOD COUNT 9.2 10^3/uL (4.3-11.0)
--- NOTE | 2019-09-27 05:10 | NUR ---
BLOOD SUGAR TAKEN 30 MINUTES AFTER PT DRANK 3 CUPS OF ORANGE JUICE. ACCUCHECK READS 108, WNL. PT CONTINUES TO SAY SHE FEELS FINE AND IS RESTING WITH EYES CLOSED IN BED.
[2019-09-27 05:17] LABS: CALCIUM 8.5 MG/DL (8.5-10.1); CREATININE SERUM 1.3 MG/DL (0.60-1.30); POTASSIUM 3.5 MMOL/L (3.6-5.0)
[2019-09-27] MEDS: inSUlin ASPART (NovoLOG) 1 UNIT/0.01 ML (CHARGE PER UNIT) SC SCH ×4 (06:07→21:24)
[2019-09-27] MEDS: MIDODRINE 10 MG (PROAMATINE) TAB PO SCH ×2 (07:17→17:21)
[2019-09-27 08:00] VITALS: BP 145/85
[2019-09-27] MEDS: CLOPIDOGREL 75 MG (PLAVIX) TABLET PO SCH (09:22)
[2019-09-27] MEDS: PANTOPRAZOLE 40 MG (PROTONIX) TAB PO SCH (09:23)
[2019-09-27] MEDS: APIXABAN 2.5 MG (ELIQUIS) TABLET PO SCH ×2 (09:23→21:22)
[2019-09-27] MEDS: ALLOPURINOL 100 MG (ZYLOPRIM) TAB PO SCH (09:23)
[2019-09-27] MEDS: TORSEMIDE 20 MG (DEMADEX) TAB PO SCH (09:29)
--- NOTE | 2019-09-27 10:21 | Physical Therapy Daily Note ---
PT Daily Note-Current Subjective Patient is more alert on this date and agrees to PT. Mental Status Patient Orientation: Person, Time, Situation Attachments: Mendez Catheter Transfers SCALE: Activities may be completed with or without assistive devices. 8-Izxnefrmvm-ixofosx completes the activity by him/herself with no assistance from a helper. 5-Set-up or Clean-up Assistance-helper sets up or cleans up; patient completes activity. [place] assists only prior to or following the activity. 4-Supervision or Touching Assistance-helper provides verbal cues and/or touching/steadying and/or contact guard assistance as patient completes acti vity. Assistance may be provided throughout the activity or intermittently. 3-Partial/Moderate Assistance-helper does LESS THAN HALF the effort. [place] lifts, holds or supports trunk or limbs, but provides less than half the effort. 2-Substantial/Maximal Assistance-helper does MORE THAN HALF the effort. [place] lifts or holds trunk or limbs and provides more than half the effort. 9-Upvsixarz-lpmcep does ALL the effort. Patient does none of the effort to complete the activity. Or, the assistance of 2 or more helpers is required for the patient to complete the activity. If activity was not attempted, code reason: 7-Patient Refused. 9-Not Applicable-not attempted and the patient did not perform the activity before the current illness, exacerbation or injury. 10-Not Attempted due to Environmental Limitations-(lack of equipment, weather restraints, etc.). 88-Not Attempted due to Medical Conditions or Safety Concerns. Roll Left & Right (QC): 3 Sit to Lying (QC): 3 Lying to Sitting/Side of Bed(Q: 3 Sit to Stand (QC): 3 Chair/Fin-uq-Dgobh Xfer(QC): 3 Toilet Transfer (QC): 3 Patient incontinent BM requiring transfer bed to commode and dependent assist to cleanse. No left lean on this date in sit or stand. Patient able to take 3 step to assist with transfer bed to commode to recliner and is more upright with improved balance. Weight Bearing Right Lower Extremity: Right Weight Bearing/Tolerated Left Lower Extremity: Left Weight Bearing/Tolerated Exercises Seated Therapy Exercises: Ankle pumps, Long arc quads Seated Reps: 10 Assessment Patient improved on this date with decreased display in left lean and improved ability to perform sit to stand and SPT with taking appropriate steps. Patient is up in recliner with breakfast in situ. PT Senior Living Goals Trench Digger Goals PT Trench Digger Goals Time Frame: Oct 01, 2019 Roll Left & Right (QC): 5 Sit to Lying (QC): 5 Lying-Sitting on Side/Bed(QC): 5 Sit to Stand (QC): 5 Chair/Hxo-um-Azkoi Xfer(QC): 5 Toilet Transfer (QC): 5 Does the Patient Walk: Yes Walk 10 feet (QC): 4 Walk 50ft with 2 Turns (QC): 4 Walk 150 ft (QC): 9 PT Plan Treatment/Plan Treatment Plan: Continue Plan of Care Treatment Plan: Bed Mobility, Education, Functional Activity Sammie, Functional Strength, Gait, Safety, Therapeutic Exercise, Transfers Treatment Duration: Oct 01, 2019 Frequency: 5 times per week Estimated Hrs Per Day: .25 hour per day Patient and/or Family Agrees t: Yes Time/GCodes Time In: 841 Time Out: 855 Total Billed Treatment Time: 14 Total Billed Treatment 1 visit FA 14 min WOODY STARKEY PT Sep 27, 2019 10:21
--- NOTE | 2019-09-27 11:03 | Occupational Ther Daily Note ---
OT Current Status-Daily Note Subjective Pt seen in recliner chair, friend present. Pt states she has had diarrhea this morning. Pt denies pain, though states pain in BLE (feet) is present- states medication is beginning to set in. pt agrees to OT tx session. Mental Status/Objective Patient Orientation: Person, Place, Situation Attachments: Mendez Catheter ADL-Treatment Therapy Code Descriptions/Definitions Functional [place] Measure: 0=Not Assessed/NA 4=Minimal Assistance 1=Total Assistance 5=Supervision or Setup 2=Maximal Assistance 6=Modified [place] 3=Moderate Assistance 7=Complete IndependenceSCALE: Activities may be completed with or without assistive devices. 6-Mvtuomvdso-lqdznqs completes the activity by him/herself with no assistance from a helper. 5-Set-up or Clean-up Assistance-helper sets up or cleans up; patient completes activity. [place] assists only prior to or following the activity. 4-Supervision or Touching Assistance-helper provides verbal cues and/or touching/steadying and/or contact guard assistance as patient completes activity . Assistance may be provided throughout the activity or intermittently. 3-Partial/Moderate Assistance-helper does LESS THAN HALF the effort. [place] lifts, holds or supports trunk or limbs, but provides less than half the effort. 2-Substantial/Maximal Assistance-helper does MORE THAN HALF the effort. [place] lifts or holds trunk or limbs and provides more than half the effort. 4-Thjgdpwnf-mxdhnz does ALL the effort. Patient does none of the effort to complete the activity. Or, the assistance of 2 or more helpers is required for the patient to complete the activity. If activity was not attempted, code reason: 7-Patient Refused. 9-Not Applicable-not attempted and the patient did not perform the activity before the current illness, exacerbation or injury. 10-Not Attempted due to Environmental Limitations-(lack of equipment, weather restraints, etc.). 88-Not Attempted due to Medical Conditions or Safety Concerns. Eating (QC): 6 (grabs and drinks water.) Oral Hygiene (QC): 7 Bathing Location: L Upper Leg, R Upper Leg, Abdomen Shower/Bathe Self (QC): 2 (Pt requires max A for sponge bath on commode- pt completes abdomen/ upper legs. Pt sit to stand and TD with bottom/ carlos hygiene (TEXTILE WORKER places cream on bottom as well)) Upper Body Dressing (QC): 3 (min A) Toileting Hygiene (QC): 1 (TD- pt completes sit to stand (max Ax2) and CGA in stance (pt utilizes 2WW for support), not able to reach to bottom with safety) Toilet Transfer (QC): 1 (max A x2 (pt requires multiple trials for sit to s tand, pt unable to take steps toward the commode, pt's chair replaced with commode behind her due to inability to step). ) Other Treatment Pt completes 10 reps bilaterally of bicep curls with yellow theraband, completes modified back flies (10 reps) and horizonal adduction across midline bilaterally (10 reps). Pt educated on benefits of exercise/ movement, pt denies ADLs but states she can complete sit to stands. Pt attempts stance, states she needs to have BM upon exertion. Pt encouraged to utilize commode, pt states fatigue but agrees. children's aide present, max A x2 to assist in sit to stands. Pt attempts 3 sit to stands and attempts steps towards commode (noted above). Pt sits on commode, completes BM (small amount), pt agrees to small sponge bath for refresher. Pt max A in sponge bath. Pt redresses in gown with min A, sit to stand with max Ax1 and stands with CGA for ~30 seconds without assist; recliner replaced commode. Pt requests bed, chair brought toward bed, pt max A for squat pivot tx to bed. Pt bed mob max A (BLE assist and assist for positioning), pt's call light in reach, all needs met, pt states comfort and no other needs. Education OT Patient Education: Correct positioning, Exercise program, Home exercise program, Modified ADL techniques, Progress toward Goal/Update tx plan, Purpose of tx/functional activities, Safety issues, Transfer techniques Teaching Recipient: Patient Teaching Methods: Demonstration, Discussion Response to Teaching: Verbalize Understanding, Return Demonstration, Reinforcement Needed OT Equipment Operat0R Goals Equipment Operat0R Goals Time Frame: Oct 01, 2019 Eating (QC): 5 Oral Hygiene (QC): 5 Toileting Hygiene (QC): 4 Additional Goals: 2-Verbalize Understanding, 3-ImproveStrength/Sammie 1=Demonstrate adherence to instructed precautions during ADL tasks. 2=Patient will verbalize/demonstrate understanding of assistive devices/modifications for ADL. 3=Patient will improve strength/tolerance for activity to enable patient to perform ADL's. OT Education/Plan Problem List/Assessment Assessment: Decreased Activ Tolerance, Decreased UE Strength, Dependent Transfers, Impaired Bed Mobility, Impaired Funct Balance, Impaired I ADL's, Impaired Self-Care Skills Discharge Recommendations Plan/Recommendations: Continue POC Therapy Discharge Recommendati: 24 Hour Supervision, Post Acute OT Treatment Plan/Plan of Care Treatment,Training & Education: Yes Patient would benefit from OT for education, treatment and training to promote independence in ADL's, mobility, safety and/or upper extremity function for ADL's. Plan of Care: ADL Retraining, Functional Mobility, UE Funct Exercise/Act Treatment Duration: Oct 01, 2019 Frequency: 5 times per week Estimated Hrs Per Day: .25 hour per day Rehab Potential: Fair Time/GCodes Start Time: 10:10 Stop Time: 10:48 Total Time Billed (hr/min): 38 Billed Treatment Time 1, ADL 3 (38) QUANG KING OTR Sep 27, 2019 11:03
--- NOTE | 2019-09-27 13:06 | Progress Note - Hospitalist ---
Subjective HPI/CC On Admission Date Seen by Provider: Sep 27, 2019 Time Seen by Provider: 13:02 Shamika Cain is an 79-year-old female well-known to the hospitalist service who presented with confusion and weakness. Her daughter reports that she had been having issues with this over the days leading up to her hospitalization. She had reportedly been eating less and drinking less. She had also been having higher blood sugars the usual. She also said that her urine had looked concentrated and dark. She denies any fevers or chills. She denies any chest pain or shortness of breath. She denies any abdominal pain, nausea, or vomiting. Objective Exam Vital Signs Vital Signs Date Time Temp Pulse Resp B/P (MAP) Pulse Ox O2 Delivery O2 Flow Rate FiO2 09/27/19 08:00 95 Room Air 09/27/19 08:00 36.7 71 20 145/85 (105) Capillary Refill : Less Than 3 Seconds General Appearance: No Apparent Distress, Chronically ill, Obese Respiratory: Lungs Clear, No Respiratory Distress Cardiovascular: Regular Rate, Rhythm, No Murmur Gastrointestinal: Normal Bowel Sounds, Soft Neurologic/Psychiatric: Alert, Oriented x3 Results/Procedures Lab Laboratory Tests 09/27/19 04:33 Patient resulted labs reviewed. Imaging: Reviewed Imaging Report Assessment/Plan Assessment and Plan Assess & Plan/Chief Complaint Urinary tract infection History of ESBL UA consistent with urinary tract infection Urine culture growing klebsiella Switch to Rocephin per sensitivities Diarrhea - C diff testing sent, indeterminant at this time Chronic kidney disease Creatinine improved, trend Foot pain Pain regimen ordered DAILY hose for edema - Resumed allopurinol as she had had relief with this before Type II diabetes mellitus Sliding scale insulin Chronic atrial fibrillation PAD s/p TAVR for aortic stenosis Continue Eliquis, metoprolol, Plavix DVT prophylaxis: Already receiving therapeutic anticoagulation Lactic acidosis, resolved Clinical Quality Measures DVT/VTE Risk/Contraindication: Risk Factor Score Per Nursin RFS Level Per Nursing on Admit: 3=High ANALIA WARD MD Sep 27, 2019 13:06
--- NOTE | 2019-09-27 13:07 | NUR ---
CM/SS: Visited with pt as to plan for discharge Plan: To be determined - either home with home care, and or correction Summary: Pt is NOT on board with going to a correction facility based on she has not had a good experience when she went to [facility], and she only stayed there for a couple of days, and then when she went to [facility], she did not remain there as well due to she did not like it. Pt reports having hours in the home and sleep support. Pt is open to home care services, and reports she has had [facility] in the past. Call to Deloris Wheat - [phone] - [facility] Web Site Administrator - she does verify that pt has 35.5 hours in the home and sleep support 6-8 hours. She can also re-assess if needed.
--- NOTE | 2019-09-27 13:37 | NUR ---
IRF Evaluation Order received to evaluate patient for the ARU. Chart review complete and it appears patient would not be able to actively participate in and/or tolerate intensive therapies, at this time. Dr. Morris notified. Thank you for this referral.
--- NOTE | 2019-09-27 14:48 | NUR ---
RD ASSESSMENT PMHx: CAD; CT; hypercholesterolemia; HTN; TIA; chronic-UTI; c-diff; DM; CA(breast); CKD PT INTERACTION: Pt was awake and semi-pleasant during nutrition assessment. Pt states current appetite is "good if the food tasted better." Note avg PO intake of 38% x3d, per chart review. Pt states following a regular diet at home and has some difficulty at times with swallowing food. Pt states no recent issues with n/v at this time. Pt states some recent issues with constipation/diarrhea. Note last BM was 09/25 and pt currently on bowel regimen of miralax PRN, per chart review. Pt states no recent wt changes. Note recent 9# wt loss x2mon, per chart review. Pt states current DM management is good. Note recent HbA1c of 7.7, taken on 07/25/2019, per chart review. ABNORMAL NUTRITION-RELATED LAB VALUES LOW: K 3.5; Cl 96; glu 55 HIGH: BUN 21 Est. kcal needs: 1789-2195 kcal | 20-25 kcal/kg Est. Pro needs: 77-96 g Pro | 0.8-1.0 g Pro/kg PES STATEMENT: Inadequate oral intake (NI-2.1) related to loss of appetite | constipation | diarrhea as evidenced by pt interview | avg PO intake 38% x3d INTERVENTION: Continue with current diet order of CHO 60g/m 3snack diet. Encouraged pt to eat when able. Will continue to follow and reassess as pt needs, intake and status change. MONITOR/EVALUATE: PO Intake; Plan of Care; Hydration Status; Weight Status; Lab Values Rex Vega, MS, RD, LD
[2019-09-27] MEDS: cefTRIAXone FOR IV USE 1,000 MG in WATER (STERILE) FOR INJECTION 10 ML IV SCH (15:01)
--- OUTSIDE RECORDS SUMMARY | 2019-09-27 15:25 | XMS REPORT | Encounter Summary ---
Author Author [facility] Address Unknown Phone Unavailable Care Team Providers Care Property Staff Accountant Name Role Phone PCP Unavailable Encounter Details Care Team Description Date Type Department Roman Mckeon MD [address] [address] [phone] 2003 [facility] Social History Date Tobacco Use Types Packs/Day Years Used Never Assessed Sex Assigned at Date Recorded Not on file Industry Job Start Date Occupation Not on file Not on file Not on file Travel End Travel History Travel Start No recent travel history available. documented as of this encounter Plan of Treatment Not on filedocumented as of this encounter Visit Diagnoses Not on filedocumented in this encounter
--- OUTSIDE RECORDS SUMMARY | 2019-09-27 15:25 | XMS REPORT | Encounter Summary ---
Author Author [facility] Organization [facility] Address Unknown Phone Unavailable Care Team Providers Care Per Diem Interpreter Name Role Phone PCP Unavailable Encounter Details Care Team Description Date Type Department Roman Mckeon MD [address] [facility] [address] [place] [address] [phone] 2003 [facility] al Encounter [address] [place] [address] Social History Date Tobacco Use Types Packs/Day Years Used Never Assessed Sex Assigned at Date Recorded Not on file Industry Job Start Date Occupation Not on file Not on file Not on file Travel End Travel History Travel Start No recent travel history available. documented as of this encounter Plan of Treatment Not on filedocumented as of this encounter Procedures Comments Procedure Name Priority Date/Time Associated Diag nosis LIPID PROFILE SG Routine 2003 3:51 PM CDT MICROALBUMIN RANDOM Routine 2003 3:51 PM CDT THYROID STIMULATING Routine 2003 HORMONE 3:51 PM CDT RENAL PANEL Routine 2003 3:51 PM CDT HEMOGLOBIN A1C Routine 2003 3:51 PM CDT CREATINE KINASE Routine 2003 3:51 PM CDT ASPARTATE Routine 2003 AMINOTRANSFERASE 3:51 PM CDT ALANINE AMINOTRANSFERASE Routine 2003 3:51 PM CDT documented in this encounter Results * Microalbumin Random (2003 3:51 PM CDT) Microalbumin 1.76 [facility] mg/dl Creatinine 78.3 MG/DL [facility] Urine Random Microalbumin/Cr 22.48 0.00 - 24.00 UG/MG [facility] eatinine Ratio Specimen Urine Performing Organization [facility] one Number [facility] [id number] [place] [phone] [facility] * Aspartate Aminotransferase (2003 3:51 PM CDT) Aspartate 17 (L) 20 - 50 IU/L [facility] Aminotransferas e Specimen Blood Performing Organization [facility] one Number [facility] [address] [place] [phone] [facility] * Lipid Profile Sg (2003 3:51 PM CDT) Cholesterol 191 <200 MG/DL [facility] Triglycerides 228 (H) <150 MG/DL [facility] HDL Cholesterol 33 (L) >41 MG/DL [facility] Cholesterol/HDL 5.8 (H) <4.5 [facility] Ratio Hours 3 [facility] Postprandial LDL Cholesterol 112 (H) 0 - 99 MG/DL [facility] Specimen Performing Organization Address [facility] one Number [facility] [address] [place] [phone] [facility] * Renal Panel (2003 3:51 PM CDT) Sodium 141 134 - 144 MEQ/L [facility] Potassium 4.5 3.6 - 5.0 MEQ/L [facility] Chloride 105 98 - 107 MEQ/L [facility] Carbon Dioxide 28 23 - 32 MEQ/L [facility] Creatinine 1.2 0.5 - 1.5 MG/DL [facility] Blood Urea 20 5 - 20 MG/DL [facility] Nitrogen Glucose 146 (H) 65 - 110 MG/DL [facility] Anion Gap 8 3 - 15 [facility] Phosphorus 3.8 2.5 - 4.5 MG/DL [facility] Albumin 3.9 3.6 - 4.6 G/DL [facility] Calcium 9.1 8.8 - 10.5 MG/DL [facility] Specimen Blood Performing Organization [facility] one Number [facility] [address] [place] [phone] 11 [facility] * Creatine Kinase (2003 3:51 PM CDT) Creatine Kinase 70 30 - 225 IU/L [facility] Specimen Blood Performing Organization Address [facility] one Number [facility] [address] [phone] [facility] * Alanine Aminotransferase (2003 3:51 PM CDT) Alanine 18 (L) 20 - 60 IU/L [facility] Aminotransferas e Specimen Blood Performing Organization Address [facility] one Number [facility] [address] [place] [phone] [facility] * Hemoglobin A1C (2003 3:51 PM CDT) HEMOGLOBIN A1C 6.7 f % [facility] Specimen Blood Narrative Performed At Report [facility] Comments and Normal Ranges for Com ponent HGB A1C(%) NONDIABETIC- 4.4-6.0% VERY GOOD CONTROL- <7.0% SUBOPTIMAL CONTROL- 7.1-8.0% POOR CONTROL- >8.0% Performing Organization Address [facility] one Number [facility] [address] [place] [phone] [facility] * Thyroid Stimulating Hormone (2003 3:51 PM CDT) Thyroid 1.26 0.35 - 5.50 UIU/ML [facility] Stimulating Hormone Specimen Blood Performing Organization Address [facility] one Number [facility] [address] [place] [phone] [facility] documented in this encounter Visit Diagnoses Not on filedocumented in this encounter
--- OUTSIDE RECORDS SUMMARY | 2019-09-27 15:25 | XMS REPORT | Clinical Summary ---
Author Author [facility] Organization [facility] Address Unknown Phone Unavailable Care Team Providers Care Wiring Technician Name Role Phone PCP Unavailable Allergies Not on File Medications Not on file Active Problems Not on file Social History Date Tobacco Use Types Packs/Day Years Used Never Assessed Sex Assigned at Date Recorded Not on file Industry Job Start Date Occupation Not on file Not on file Not on file Travel End Travel History Travel Start No recent travel history available. Last Filed Vital Signs Not on file Plan of Treatment Not on file Results Not on filefrom Last 3 Months
[2019-09-27 15:27] VITALS: BP 136/74
--- OUTSIDE RECORDS SUMMARY | 2019-09-27 15:35 | XMS REPORT | Continuity of Care Document ---
Author Organization Unknown Address Unknown Phone Unavailable Allergies Active Description Code Type Severity Reaction Onset Reported/Identified Relationship to Patient Clinical Status Yes sulfamethoxazole [id number] Drug Allergy Moderate N/A 10/05/2015 Yes tramadol [id number] Drug Allergy Moderate N/A 10/05/2015 Yes trimethoprim [id number] Drug Allergy Moderate N/A 10/05/2015 Yes codeine [id number] Drug Allergy Unknown CAN TAKE MORPHI 10/05/2015 Yes hydrocodone [id number] Drug Aller gy Unknown N/A 10/05/2015 Yes Penicillins [id number] Drug Aller gy Unknown N/A 10/05/2015 Yes amiodarone [id number] Drug Allerg y Unknown NAUSEA, dizzine 12/05/2015 Yes amiodarone [id number] Drug Allerg y Mild NAUSEA, dizzine 02/01/2016 Yes morphine [id number] Drug Allergy Moderate Nausea 06/03/2019 Medications There is no data. Problems Date Dx Coded Attending Type Code Diagnosis Diagnosed By 06/18/1199 JOE ROBERTSON MD Ot 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 06/18/1199 JOE ROBERTSON MD Ot L97.5 21 NON-PRS CHRONIC ULCER OTH PRT L FOOT ZIMMERMAN 08/08/2014 NAOMY KINGP Ot 174.9 08/29/2014 ANTHONY GARZA Ot 174.9 08/29/2014 ANTHONY GARZA Ot V76.11 08/31/2014 ANTHONY GARZA N Ot 174.9 08/31/2014 ANTHONY GARZA Ot V76.11 08/31/2014 NAOMY KINGP Ot 174.9 08/31/2014 NAOMY KINGP Ot 250.00 08/31/2014 NAOMY KINGP Ot 585.3 08/31/2014 NAOMY KING MULE OPERATOR Ot V15.3 08/31/2014 NAOMY KINGP Ot V58.67 08/31/2014 KINGNAOMY Diaz S MULE OPERATOR Ot V58.69 08/31/2014 ANTHONY GARZA N Ot 174.9 08/31/2014 ANTHONY GARZA N Ot V76.11 08/31/2014 KINGNAOMY Diaz S MULE OPERATOR Ot 174.9 08/31/2014 KINGNAOMY S MULE OPERATOR Ot 250.00 08/31/2014 KINGNAOMY S MULE OPERATOR Ot 585.3 08/31/2014 KINGNAOMY S MULE OPERATOR Ot V15.3 08/31/2014 KINGNAOMY S MULE OPERATOR Ot V58.67 08/31/2014 KINGNAOMY S MULE OPERATOR Ot V58.69 09/13/2014 KINGNAOMY S MULE OPERATOR Ot 174.9 09/13/2014 KINGNAOMY S MULE OPERATOR Ot 250.00 09/13/2014 KINGNAOMY S MULE OPERATOR Ot 585.3 09/13/2014 KINGNAOMY Diaz S MULE OPERATOR Ot V15.3 09/13/2014 KINGNAOMY Diaz S MULE OPERATOR Ot V58.67 09/13/2014 KINGNAOMY Diaz S MULE OPERATOR Ot V58.69 12/25/2014 ANTHONY GARZA N Ot 174.9 12/25/2014 ANTHONY GARZA N Ot V76.11 12/25/2014 KINGNAOMY Diaz S MULE OPERATOR Ot 174.9 12/25/2014 KINGNAOMY Diaz S MULE OPERATOR Ot 250.00 12/25/2014 KINGNAOMY S MULE OPERATOR Ot 585.3 12/25/2014 KINGNAOMY S MULE OPERATOR Ot V15.3 12/25/2014 KINGNAOMY S MULE OPERATOR Ot V58.67 12/25/2014 KINGNAOMY S MULE OPERATOR Ot V58.69 12/25/2014 KINGNAOMY S MULE OPERATOR Ot 174.9 12/25/2014 KINGNAOMY S MULE OPERATOR Ot V49.81 12/25/2014 KINGNAOMY S MULE OPERATOR Ot V58.69 12/25/2014 MARCELO ROJAS, JOE Sherman Ot 599.0 12/25/2014 Ot V45.82 12/25/2014 Ot V57.89 12/26/2014 SOMMER ROJAS, DIMPLE J Ot 250. 60 12/26/2014 SOMMER ROJAS, DIMPLE J Ot 272. 4 12/26/2014 SOMMER ROJAS, MARLOHAR J Ot 357. 2 12/26/2014 SOMMER ROJAS, DIMPLE J Ot 403. 90 12/26/2014 SOMMER ROJAS, MARLOHAR J Ot 414. 01 12/26/2014 SOMMER ROJAS, BASHAR J Ot 427. 31 12/26/2014 SOMMER ROJAS, BASHAR J Ot 433. 10 12/26/2014 SOMMER ROJAS, MARLOHAR J Ot 443. 9 12/26/2014 SOMMER ROJAS, DIMPLE J Ot 530. 81 12/26/2014 SOMMER ROJAS, MARLOHAR J Ot 585. 3 12/26/2014 SOMMER ROJAS, DIMPLE J Ot 786. 50 12/26/2014 SOMMER ROJAS, DIMPLE J Ot V10. 3 12/26/2014 SOMMER ROJAS, DIMPLE J Ot V45. 01 12/26/2014 SOMMER ROJAS, DIMPLE J Ot V45. 82 12/26/2014 SOMMER ROJAS, DIMPLE J Ot V58. 67 12/26/2014 SOMMER ROJAS, DIMPLE J Ot 250. 60 12/26/2014 SOMMER ROJAS, DIMPLE J Ot 272. 4 12/26/2014 SOMMER ROJAS, DIMPLE J Ot 357. 2 12/26/2014 SOMMER ROJAS, DIMPLE J Ot 403. 90 12/26/2014 SOMMER ROJAS, DIMPLE J Ot 414. 01 12/26/2014 SOMMER ROJAS, DIMPLE J Ot 427. 31 12/26/2014 SOMMER ROJAS, MARLOHAR J Ot 433. 10 12/26/2014 SOMMER ROJAS, DIMPLE J Ot 443. 9 12/26/2014 SOMMER ROJAS, DIMPLE J Ot 530. 81 12/26/2014 SOMMER ROJAS, BASHAR J Ot 585. 3 12/26/2014 SOMMER ROJAS, BASHAR J Ot 786. 50 12/26/2014 SOMMER ROJAS, DIMPLE J Ot V10. 3 12/26/2014 SOMMER ROJAS, MARLOHAR J Ot V45. 01 12/26/2014 SOMMER ROJAS, MARLOHAR J Ot V45. 82 12/26/2014 SOMMER ROJAS, MARLOHAR J Ot V58. 67 03/06/2015 ANTHONY GARZA Ot 174.9 03/06/2015 GREG, ALYCEAN N Ot 250.00 03/06/2015 GREG, ALYCEAN N Ot 585.3 03/06/2015 GREG, ANTHONY N Ot V15.3 03/06/2015 GREG, ANTHONY N Ot V49.81 03/06/2015 GREG, ANTHONY N Ot V58.67 03/06/2015 GREG, ANTHONY N Ot V58.69 03/16/2015 GREG, BOBBJORN N Ot 174.9 03/16/2015 GREG, ANTHONY N Ot 250.00 03/16/2015 GREG, ANTHONY N Ot 585.3 03/16/2015 GREG, ANTHONY N Ot V15.3 03/16/2015 GREG, ANTHONY N Ot V49.81 03/16/2015 GREG, ANTHONY N Ot V58.67 03/16/2015 GREG, ANTHONY N Ot V58.69 03/27/2015 GREG, ANTHONY N Ot 174.9 03/27/2015 GREG, ANTHONY N Ot 250.00 03/27/2015 GREG, ANTHONY N Ot 585.3 03/27/2015 GREG, ANTHONY N Ot V15.3 03/27/2015 GREG, ANTHONY N Ot V49.81 03/27/2015 GREG, ANTHONY N Ot V58.67 03/27/2015 GREG, ANTHONY N Ot V58.69 2015 GREG, BOBAN N Ot 174.9 2015 GREG, ANTHONY N Ot V76.11 2015 NAOMY KING S MULE OPERATOR Ot 174.9 2015 KINGNAOMY Diaz S MULE OPERATOR Ot 250.00 2015 KINGNAOMY Diaz S MULE OPERATOR Ot 585.3 2015 NAOMY KING S MULE OPERATOR Ot V15.3 2015 NAOMY KING S MULE OPERATOR Ot V58.67 2015 KINGNAOMY Diaz S MULE OPERATOR Ot V58.69 2015 KINGNAOMY Diaz S MULE OPERATOR Ot 174.9 2015 NAOMY KING S MULE OPERATOR Ot V49.81 2015 NAOMY KING S MULE OPERATOR Ot V58.69 2015 MARCELO ROJAS, JOE Sherman Ot 599.0 2015 GREGANTHONY SAMSON N Ot 174.9 2015 GREG, ANTHONY N Ot 250.00 2015 GREGANTHONY SAMSON N Ot 585.3 2015 GREGANTHONY SAMSON N Ot V15.3 2015 GREGANTHONY SAMSON N Ot V49.81 2015 GREGANTHONY SAMSON N Ot V58.67 2015 GREGANTHONY SAMSON N Ot V58.69 04/18/2015 SULTANA, ANUP L MULE OPERATOR Ot 240.9 04/18/2015 RD ANUP L MULE OPERATOR Ot 266.2 04/18/2015 SULTANA, ANUP L MULE OPERATOR Ot 268.9 04/18/2015 SULTANA, ANUP L MULE OPERATOR Ot 275.2 04/18/2015 SULTANA, ANUP L MULE OPERATOR Ot 458.9 04/18/2015 SULTANA, ANUP L MULE OPERATOR Ot 593.9 04/18/2015 SULTANA, ANUP L MULE OPERATOR Ot 785.1 04/18/2015 SARAHY SULTANARICIA L MULE OPERATOR Ot 787.20 05/10/2015 ANGEL MCDOWELL MD Ot E11.40 TYPE 2 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 WITH DIABETIC N 05/10/2015 ANGEL MCDOWELL MD Ot G45 .9 TRANSIENT CEREBRAL ISCHEMIC ATTACK, UNSP 05/10/2015 ANGEL MCDOWELL MD Ot Z79.02 PENITENTIARY (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 OF ANTITHROMBOTI 05/10/2015 ANGEL MCDOWELL MD Ot Z79 .4 PENITENTIARY (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 05/10/2015 ANGEL MCDOWELL MD Ot Z79.899 OTHER PENITENTIARY (CURRENT) DRUG THERAPY 05/10/2015 VITALY CANDELARIO DENIS K Ot E11.40 TYPE 2 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 WITH DIABETIC N 05/10/2015 VITALY CANDELARIO DENIS K Ot G45.9 TRANSIENT CEREBRAL ISCHEMIC ATTACK, UNSP 05/10/2015 VITALY CANDELARIO DENIS K Ot Z79.02 PENITENTIARY (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 OF ANTITHROMBOTI 05/10/2015 DENIS HAIDER DO Ot 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 05/10/2015 DENIS HAIDER DO Ot Z79.82 PENITENTIARY (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 OF ASPIRIN 05/29/2015 ANUP SULTANA L MULE OPERATOR Ot 240.9 05/29/2015 SULTANA, ANUP L MULE OPERATOR Ot 266.2 05/29/2015 SULTANA, ANUP L MULE OPERATOR Ot 268.9 05/29/2015 SULTANA, ANUP L MULE OPERATOR Ot 275.2 05/29/2015 SULTANA, ANUP L MULE OPERATOR Ot 458.9 05/29/2015 SULTANA, ANUP L MULE OPERATOR Ot 593.9 05/29/2015 SULTANA, ANUP L MULE OPERATOR Ot 785.1 05/29/2015 SULTANA, ANUP L MULE OPERATOR Ot 787.20 06/27/2015 MARCELO ROJAS, JOE Sherman Ot R19.7 08/09/2015 JOE ROBERTSON MD Ot A04.7 08/27/2015 JOE ROBERTSON MD Ot R19.7 08/31/2015 Ot Z12.31 09/25/2015 JOE ROBERTSON MD Ot R19.7 DIARRHEA, UNSPECIFIED 09/25/2015 Ot Z12.31 09/25/2015 SULTANA, ANUP L MULE OPERATOR Ot 240.9 09/25/2015 SULTANA, ANUP L MULE OPERATOR Ot 266.2 09/25/2015 SULTANA, ANUP L MULE OPERATOR Ot 268.9 09/25/2015 SULTANA, ANUP L MULE OPERATOR Ot 275.2 09/25/2015 SULTANA, ANUP L MULE OPERATOR Ot 458.9 09/25/2015 SULTANA, ANUP L MULE OPERATOR Ot 593.9 09/25/2015 SULTANA, ANUP L MULE OPERATOR Ot 785.1 09/25/2015 RD ANUP L MULE OPERATOR Ot 787.20 09/25/2015 JOE ROBERTSON MD Ot R19.7 09/25/2015 JOE ROBERTSON MD Ot R19.7 09/25/2015 JOE ROBERTSON MD Ot A04.7 09/28/2015 JOE ROBERTSON MD Ot R19.7 10/04/2015 JOE ROBERTSON MD Ot R06.0 2 10/05/2015 Ot V45.82 10/05/2015 Ot V57.89 10/05/2015 Ot R19.7 10/06/2015 JOE ROBERTSON MD, Ot E11.9 TYPE 2 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 WITHOUT COMPLIC 10/06/2015 JOE ROBERTSON MD Ot E78.5 HYPERLIPIDEMIA, UNSPECIFIED 10/06/2015 JOE ROBERTSON MD Ot I10 ESSENTIAL (PRIMARY) HYPERTENSION 10/06/2015 JOE ROBERTSON MD, Ot I25.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 10/06/2015 JOE ROBERTSON MD Ot K21.9 [...] INI 10/06/2015 JOE ROBERTSON MD Ot 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 10/06/2015 JOE ROBERTSON MD Ot Z95.0 PRESENCE OF CARDIAC PACEMAKER 10/06/2015 JOE ROBERTSON MD Ot Z95.5 PRESENCE OF CORONARY ANGIOPLASTY IMPLANT 10/06/2015 JOE ROBERTSON MD Ot E11.9 10/06/2015 JOE ROBERTSON MD, Ot E78.5 10/06/2015 JOE ROBERTSON MD, Ot I10 10/06/2015 JOE ROBERTSON MD, Ot I25.1 0 10/06/2015 JOE ROBERTSON MD Ot K21.9 10/06/2015 JOE ROBERTSON MD Ot K64.9 10/06/2015 JOE ROBERTSON MD Ot K92.1 10/06/2015 JOE ROBERTSON MD Ot R11.0 10/06/2015 JOE ROBERTSON MD, Ot R19.7 10/06/2015 JOE ROBERTSON MD Ot S30.817A 10/06/2015 JOE ROBERTSON MD Ot X58.XXXA 10/06/2015 JOE ROBERTSON MD Ot Z79.4 10/06/2015 MARCELO ROJAS, JOE Sherman Ot Z95.0 10/06/2015 JOE ROBERTSON MD Ot Z95.5 10/15/2015 RD ANUP L MULE OPERATOR Ot 240.9 10/15/2015 RD ANUP Salvatore MULE OPERATOR Ot 266.2 10/15/2015 RD ANUP L MULE OPERATOR Ot 268.9 10/15/2015 SARAHY SULTANARICIA Salvatore MULE OPERATOR Ot 275.2 10/15/2015 RD ANUP Salvatore MULE OPERATOR Ot 458.9 10/15/2015 KIERAN SULTANAIA Salvatore MULE OPERATOR Ot 593.9 10/15/2015 ANUP SULTANA MULE OPERATOR Ot 785.1 10/15/2015 ANUP SULTANA MULE OPERATOR Ot 787.20 10/15/2015 MARCELO ROJAS, JOE Sherman Ot R19.7 10/15/2015 JOE ROBERTSON MD Ot A04.7 10/15/2015 DOT ROJAS, NAFISA Tong Ot E04 .1 10/15/2015 Ot R19.7 10/15/2015 JOE ROBERTSON MD Ot R06.0 2 10/16/2015 NAFISA CHRIS MD Ot E04 .1 10/23/2015 JOE ROBERTSON MD Ot R06.0 2 10/24/2015 JOE ROBERTSON MD Ot L97.5 21 10/25/2015 JOE ROBERTSON MD Ot L97.5 21 10/30/2015 JOE ROBERTSON MD Ot L97.5 21 10/31/2015 DOT ROJAS, NAFISA Tong Ot E04 .1 11/05/2015 JOE ROBERTSON MD Ot R06.0 2 SHORTNESS OF BREATH 11/09/2015 JOE ROBERTSON MD Ot 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 11/09/2015 JOE ROBERTSON MD Ot L97.5 21 NON-PRS CHRONIC ULCER OTH PRT L FOOT ZIMMERMAN 11/13/2015 JOE ROBERTSON MD Ot L97.5 21 NON-PRS CHRONIC ULCER OTH PRT L FOOT ZIMMERMAN 11/14/2015 JOE ROBERTSON MD Ot L97.5 21 NON-PRS CHRONIC ULCER OTH PRT L FOOT ZIMMERMAN 11/15/2015 CIERA ROJAS, DESTINEE Soliman Ot I25.10 ATHSCL HEART DISEASE OF [place] CORONARY 11/21/2015 JOE ROBERTSON MD Ot 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 11/21/2015 JOE ROBERTSON MD Ot L97.5 21 NON-PRS CHRONIC ULCER OTH PRT L FOOT ZIMMERMAN 11/22/2015 JOE ROBERTSON MD Ot 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 11/22/2015 JOE ROBERTSON MD Ot L97.5 21 NON-PRS CHRONIC ULCER OTH PRT L FOOT ZIMMERMAN 11/27/2015 JOE ROBERTSON MD Ot L97.5 21 NON-PRS CHRONIC ULCER OTH PRT L FOOT ZIMMERMAN 12/05/2015 CIERA ROJAS, DESTINEE Soliman Ot I25.10 ATHSCL HEART DISEASE OF [place] CORONARY 12/05/2015 Ot V45.82 PER CUTANEOUS TRANSLUM CORON ANGIOPLASTY 12/05/2015 Ot V57.89 BEAN ABILITATION PROC NEC 12/05/2015 Ot R19.7 DIAR KRIS, UNSPECIFIED 12/06/2015 JOE ROBERTSON MD Ot E11.9 TYPE 2 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 WITHOUT COMPLIC 12/06/2015 JOE ROBERTSON MD Ot E86.0 DEHYDRATION 12/06/2015 JOE ROBERTSON MD, Ot I25.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 12/06/2015 JOE ROBERTSON MD Ot I48.9 1 UNSPECIFIED ATRIAL FIBRILLATION 12/06/2015 JOE ROBERTSON MD Ot I73.9 PERIPHERAL VASCULAR DISEASE, UNSPECIFIED 12/06/2015 JOE ROBERTSON MD, Ot N17.9 ACUTE KIDNEY FAILURE, UNSPECIFIED 12/06/2015 JOE ROBERTSON MD, Ot N18.3 CHRONIC KIDNEY DISEASE, STAGE 3 (MODERAT 12/06/2015 JOE ROBERTSON MD Ot N39.0 URINARY TRACT INFECTION, SITE NOT SPECIF 12/06/2015 JOE ROBERTSON MD, Ot R06.0 0 DYSPNEA, UNSPECIFIED 12/06/2015 JOE ROBERTSON MD Ot R42 DIZZINESS AND GIDDINESS 12/06/2015 JOE ROBERTSON MD, Ot R55 SYNCOPE AND COLLAPSE 12/06/2015 JOE ROBERTSON MD Ot Z95.5 PRESENCE OF CORONARY ANGIOPLASTY IMPLANT 12/06/2015 JOE ROBERTSON MD Ot Z95.8 20 PERIPHERAL VASCULAR ANGIOPLASTY STATUS W 12/06/2015 JOE ROBERTSON MD Ot E11.9 TYPE 2 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 WITHOUT COMPLIC 12/06/2015 JOE ROBERTSON MD Ot E86.0 DEHYDRATION 12/06/2015 JOE ROBERTSON MD Ot I25.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 12/06/2015 JOE ROBERTSON MD Ot I48.9 1 UNSPECIFIED ATRIAL FIBRILLATION 12/06/2015 JOE ROBERTSON MD Ot I73.9 PERIPHERAL VASCULAR DISEASE, UNSPECIFIED 12/06/2015 JOE ROBERTSON MD Ot N17.9 ACUTE KIDNEY FAILURE, UNSPECIFIED 12/06/2015 JOE ROBERTSON MD, Ot N18.3 CHRONIC KIDNEY DISEASE, STAGE 3 (MODERAT 12/06/2015 JOE ROBERTSON MD, Ot N39.0 URINARY TRACT INFECTION, SITE NOT SPECIF 12/06/2015 JOE ROBERTSON MD Ot R06.0 0 DYSPNEA, UNSPECIFIED 12/06/2015 JOE ROBERTSON MD, Ot R42 DIZZINESS AND GIDDINESS 12/06/2015 JOE ROBERTSON MD Ot R55 SYNCOPE AND COLLAPSE 12/06/2015 JOE ROBERTSON MD Ot Z95.5 PRESENCE OF CORONARY ANGIOPLASTY IMPLANT 12/06/2015 JOE ROBERTSON MD Ot Z95.8 20 PERIPHERAL VASCULAR ANGIOPLASTY STATUS W 12/27/2015 CIERA ROJAS, DESTINEE Soliman Ot I25.10 ATHSCL HEART DISEASE OF [place] CORONARY 01/04/2016 DOT ROJAS, NAFISA Tong Ot E04 .1 NONTOXIC SINGLE THYROID NODULE 01/04/2016 Ot R19.7 DIAR KRIS, UNSPECIFIED 01/04/2016 JOE ROBERTSON MD Ot R06.0 2 SHORTNESS OF BREATH 01/08/2016 DIMPLE NOVOA MD Ot I65. 23 OCCLUSION AND STENOSIS OF [place] 01/08/2016 DIMPLE NOVOA MD, Ot R42 DIZZINESS AND GIDDINESS 01/25/2016 DIMPLE NOVOA MD Ot I65. 23 OCCLUSION AND STENOSIS OF [place] 01/25/2016 DIMPLE NOVOA MD, Ot R42 DIZZINESS AND GIDDINESS 02/01/2016 Ot V45.82 PER CUTANEOUS TRANSLUM CORON ANGIOPLASTY 02/01/2016 Ot V57.89 BEAN ABILITATION PROC NEC 02/01/2016 Ot R19.7 DIAR KRIS, UNSPECIFIED 02/04/2016 DIMPLE NOVOA MD Ot I65. 23 OCCLUSION AND STENOSIS OF [place] 02/04/2016 DIMPLE NOVOA MD, Ot R42 DIZZINESS AND GIDDINESS 02/04/2016 DIMPLE NOVOA MD Ot I65. 23 OCCLUSION AND STENOSIS OF [place] 02/04/2016 DIMPLE NOVOA MD Ot R42 DIZZINESS AND GIDDINESS 02/05/2016 DIMPLE NOVOA MD Ot I65. 23 OCCLUSION AND STENOSIS OF [place] 02/05/2016 DIMPLE NOVOA MD Ot R42 DIZZINESS AND GIDDINESS 02/18/2016 ANGEL MCDOWELL MD Ot E11.40 TYPE 2 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 WITH DIABETIC N 02/18/2016 ANGEL MCDOWELL MD Ot G45 .9 TRANSIENT CEREBRAL ISCHEMIC ATTACK, UNSP 02/18/2016 ANGEL MCDOWELL MD Ot Z79.02 INFORMATION SYSTEMS OPERATOR (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 OF ANTITHROMBOTI 02/18/2016 ANGEL MCDOWELL MD Ot Z79 .4 PENITENTIARY (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 02/18/2016 ANGEL MCDOWELL MD Ot Z79.899 OTHER INFORMATION SYSTEMS OPERATOR (CURRENT) DRUG THERAPY 02/21/2016 NAOMY KING MULE OPERATOR Ot Z 09 ENCNTR FOR F/U EXAM AFT TRTMT FOR COND O 02/21/2016 NAOMY KING MULE OPERATOR Ot Z85.3 PERSONAL HISTORY OF MALIGNANT NEOPLASM O 03/07/2016 DIMPLE NOVOA MD Ot I65. 23 OCCLUSION AND STENOSIS OF [place] 03/07/2016 DIMPLE NOVOA MD, Ot R42 DIZZINESS AND GIDDINESS 03/08/2016 ANGEL MCDOWELL MD Ot E11.40 TYPE 2 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 WITH DIABETIC N 03/08/2016 ANGEL MCDOWELL MD Ot G45 .9 TRANSIENT CEREBRAL ISCHEMIC ATTACK, UNSP 03/08/2016 ANGEL MCDOWELL MD Ot Z79.02 INFORMATION SYSTEMS OPERATOR (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 OF ANTITHROMBOTI 03/08/2016 ANGEL MCDOWELL MD Ot Z79 .4 PENITENTIARY (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 03/08/2016 ANGEL MCDOWELL MD Ot Z79.899 OTHER PENITENTIARY (CURRENT) DRUG THERAPY 03/14/2016 NAOMY KING MULE OPERATOR Ot Z 09 ENCNTR FOR F/U EXAM AFT TRTMT FOR COND O 03/14/2016 NAOMY KINGP Ot Z85.3 PERSONAL HISTORY OF MALIGNANT NEOPLASM O 03/18/2016 DIMPLE NOVOA MD Ot I65. 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 06/06/2016 KIERAN SULTANAIA Salvatore MULE OPERATOR Ot 268.9 VITAMIN D DEFICIENCY NOS 06/06/2016 KIERAN SULTANAIA Salvatore MULE OPERATOR Ot 275.2 DIS MAGNESIUM METABOLISM 06/06/2016 SULTANA, ANUP Salvatore MULE OPERATOR Ot 458.9 HYPOTENSION NOS 06/06/2016 KIERAN SULTANAIA L MULE OPERATOR Ot 593.9 RENAL URETERAL DIS NOS 06/06/2016 RD ANUP Salvatore MULE OPERATOR Ot 785.1 PALPITATIONS 06/06/2016 RD ANUP Salvatore MULE OPERATOR Ot 787.20 DYSPHAGIA, UNSPECIFIED 06/06/2016 MARCELO ROJAS, JOE Sherman Ot R19.7 DIARRHEA, UNSPECIFIED 06/06/2016 MARCELO ROJAS, JOE Sherman Ot A04.7 ENTEROCOLITIS DUE TO CLOSTRIDIUM DIFFICI 06/06/2016 DOT ROJAS, NAFISA Tong Ot E04 .1 NONTOXIC SINGLE THYROID NODULE 06/06/2016 Ot R19.7 DIAR KRIS, UNSPECIFIED 06/06/2016 MARCELO ROJAS, JOE Sherman Ot R06.0 2 SHORTNESS OF BREATH 06/06/2016 DIMPLE NOVOA MD Ot I65. 23 OCCLUSION AND STENOSIS OF [place] 06/06/2016 DIMPLE NOVOA MD Ot R42 DIZZINESS AND GIDDINESS 06/06/2016 DIMPLE NOVOA MD Ot I65. 23 OCCLUSION AND STENOSIS OF [place] 06/06/2016 DIMPLE NOVOA MD Ot R42 DIZZINESS AND GIDDINESS 06/06/2016 NAOMY KINGP Ot Z 09 ENCNTR FOR F/U EXAM AFT TRTMT FOR COND O 06/06/2016 KING, HILAH S MULE OPERATOR Ot Z85.3 PERSONAL HISTORY OF MALIGNANT NEOPLASM O 06/10/2016 DESTINEE SULTANA DO Ot E04.1 NONTOXIC SINGLE THYROID NODULE 06/11/2016 DESTINEE SULTANA DO Ot E04.1 NONTOXIC SINGLE THYROID NODULE 07/02/2016 DESTINEE SULTANA DO Ot E04.1 NONTOXIC SINGLE THYROID NODULE 07/15/2016 DESTINEE SULTANA DO Ot E04.1 NONTOXIC SINGLE THYROID NODULE 08/12/2016 ANUP SULTANA MULE OPERATOR Ot 240.9 GOITER NOS 08/12/2016 ANUP SULTANA MULE OPERATOR Ot 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 08/12/2016 ANUP SULTANA L MULE OPERATOR Ot 268.9 VITAMIN D DEFICIENCY NOS 08/12/2016 ANUP SULTANA MULE OPERATOR Ot 275.2 DIS MAGNESIUM METABOLISM 08/12/2016 ANUP SULTANA MULE OPERATOR Ot 458.9 HYPOTENSION NOS 08/12/2016 ANUP SULTANA MULE OPERATOR Ot 593.9 RENAL URETERAL DIS NOS 08/12/2016 ANUP SULTANA MULE OPERATOR Ot 785.1 PALPITATIONS 08/12/2016 ANUP SULTANA MULE OPERATOR Ot 787.20 DYSPHAGIA, UNSPECIFIED 08/12/2016 MARCELO ROJAS, JOE Sherman Ot R19.7 DIARRHEA, UNSPECIFIED 08/12/2016 MARCELO ROJAS, JOE Sherman Ot A04.7 ENTEROCOLITIS DUE TO CLOSTRIDIUM DIFFICI 08/12/2016 DOT ROJAS, NAFISA Tong Ot E04 .1 NONTOXIC SINGLE THYROID NODULE 08/12/2016 Ot R19.7 DIAR KRIS, UNSPECIFIED 08/12/2016 MARCELO ROJAS, JOE Sherman Ot R06.0 2 SHORTNESS OF BREATH 08/12/2016 DIMPLE NOVOA MD Ot I65. 23 OCCLUSION AND STENOSIS OF [place] 08/12/2016 DIMPLE NOVOA MD Ot R42 DIZZINESS AND GIDDINESS 08/12/2016 DIMPLE NOVOA MD Ot I65. 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 08/13/2016 ANUP SULTANA L MULE OPERATOR Ot 268.9 VITAMIN D DEFICIENCY NOS 08/13/2016 KIERAN SULTANAIA L MULE OPERATOR Ot 275.2 DIS MAGNESIUM METABOLISM 08/13/2016 ANUP SULTANA L MULE OPERATOR Ot 458.9 HYPOTENSION NOS 08/13/2016 ANUP SULTANA MULE OPERATOR Ot 593.9 RENAL URETERAL DIS NOS 08/13/2016 KIERAN SULTANAIA Salvatore MULE OPERATOR Ot 785.1 PALPITATIONS 08/13/2016 ANUP SULTANA MULE OPERATOR Ot 787.20 DYSPHAGIA, UNSPECIFIED 08/13/2016 MARCELO ROJAS, JOE Sherman Ot R19.7 DIARRHEA, UNSPECIFIED 08/13/2016 MARCELO ROJAS, JOE Sherman Ot A04.7 ENTEROCOLITIS DUE TO CLOSTRIDIUM DIFFICI 08/13/2016 DOT ROJAS, NAFISA Tong Ot E04 .1 NONTOXIC SINGLE THYROID NODULE 08/13/2016 Ot R19.7 DIAR KRIS, UNSPECIFIED 08/13/2016 MARCELO ROJAS, JOE Sherman Ot R06.0 2 SHORTNESS OF BREATH 08/13/2016 DIMPLE NOVOA MD Ot I65. 23 OCCLUSION AND STENOSIS OF [place]ILATERAL [place] 08/13/2016 DIMPLE NOVOA MD Ot R42 DIZZINESS AND GIDDINESS 08/13/2016 DIMPLE NOVOA MD Ot I65. 23 OCCLUSION AND STENOSIS OF [place] 08/13/2016 DIMPLE NOVOA MD Ot R42 DIZZINESS AND GIDDINESS 08/13/2016 NAOMY KINGP Ot Z 09 ENCNTR FOR F/U EXAM AFT TRTMT FOR COND O 08/13/2016 NAOMY KINGP Ot Z85.3 PERSONAL HISTORY OF MALIGNANT NEOPLASM O 08/13/2016 KING, HILAH S MULE OPERATOR Ot Z12.31 ENCNTR SCREEN MAMMOGRAM FOR MALIGNANT NE 08/13/2016 DESTINEE SULTANA DO Ot E04.1 NONTOXIC SINGLE THYROID NODULE 08/13/2016 NAOMY KING MULE OPERATOR Ot Z12.31 ENCNTR SCREEN MAMMOGRAM FOR MALIGNANT NE 08/13/2016 NAOMY KING S MULE OPERATOR Ot Z12.31 ENCNTR SCREEN MAMMOGRAM FOR MALIGNANT NE 08/14/2016 Ot Z12.31 ENC NTR SCREEN MAMMOGRAM FOR MALIGNANT NE 08/14/2016 NAOMY KING S MULE OPERATOR Ot Z12.31 ENCNTR SCREEN MAMMOGRAM FOR MALIGNANT NE 09/03/2016 NAOMY KING MULE OPERATOR Ot Z12.31 ENCNTR SCREEN MAMMOGRAM FOR MALIGNANT NE 12/12/2016 Ot Z12.31 ENC NTR SCREEN MAMMOGRAM FOR MALIGNANT NE 12/12/2016 DOT ROJAS, NAFISA Tong Ot E04 .1 NONTOXIC SINGLE THYROID NODULE 12/12/2016 Ot R19.7 DIAR KRIS, UNSPECIFIED 12/12/2016 JOE ROBERTSON MD Ot R06.0 2 SHORTNESS OF BREATH 12/12/2016 DIMPLE NOVOA MD Ot I65. 23 OCCLUSION AND STENOSIS OF [place] 12/12/2016 DIMPLE NOVOA MD Ot R42 DIZZINESS AND GIDDINESS 12/12/2016 DIMPLE NOVOA MD Ot I65. 23 OCCLUSION AND STENOSIS OF [place] 12/12/2016 DIMPLE NOVOA MD Ot R42 DIZZINESS AND GIDDINESS 12/12/2016 NAOMY KING MULE OPERATOR Ot Z 09 ENCNTR FOR F/U EXAM AFT TRTMT FOR COND O 12/12/2016 NAOMY KNIG MULE OPERATOR Ot Z85.3 PERSONAL HISTORY OF MALIGNANT NEOPLASM O 12/12/2016 NAOMY KING MULE OPERATOR Ot Z12.31 ENCNTR SCREEN MAMMOGRAM FOR MALIGNANT NE 12/12/2016 DESTINEE SULTANA DO Ot E04.1 NONTOXIC SINGLE THYROID NODULE 12/17/2016 Ot Z12.31 ENC NTR SCREEN MAMMOGRAM FOR MALIGNANT NE 12/17/2016 DOT ROJAS, NAFISA Tong Ot E04 .1 NONTOXIC SINGLE THYROID NODULE 12/17/2016 Ot R19.7 DIAR KRIS, UNSPECIFIED 12/17/2016 JOE ROBERTSON MD Ot R06.0 2 SHORTNESS OF BREATH 12/17/2016 DIMPLE NOVOA MD Ot I65. 23 OCCLUSION AND STENOSIS OF [place] 12/17/2016 DIMPLE NOVOA MD Ot R42 DIZZINESS AND GIDDINESS 12/17/2016 DIMPLE NOVOA MD Ot I65. 23 OCCLUSION AND STENOSIS OF [place] 12/17/2016 DIMPLE NOVOA MD Ot R42 DIZZINESS AND GIDDINESS 12/17/2016 NAOMY KINGP Ot Z 09 ENCNTR FOR F/U EXAM AFT TRTMT FOR COND O 12/17/2016 NAOMY KINGP Ot Z85.3 PERSONAL HISTORY OF MALIGNANT NEOPLASM O 12/17/2016 NAOMY KING Ot Z12.31 ENCNTR SCREEN MAMMOGRAM FOR MALIGNANT NE 12/17/2016 DESTINEE SULTANA DO Ot E04.1 NONTOXIC SINGLE THYROID NODULE 12/18/2016 NAOMY KINGP Ot 174.9 MALIGN NEOPL BREAST NOS 12/18/2016 Ot Z12.31 ENC NTR SCREEN MAMMOGRAM FOR MALIGNANT NE 12/18/2016 DOT ROJAS, NAFISA Tnog Ot E04 .1 NONTOXIC SINGLE THYROID NODULE 12/18/2016 Ot R19.7 DIAR KRIS, UNSPECIFIED 12/18/2016 MARCELO ROJAS, JOE Sherman Ot R06.0 2 SHORTNESS OF BREATH 12/18/2016 DIMPLE NOVOA MD Ot I65. 23 OCCLUSION AND STENOSIS OF [place] 12/18/2016 DIMPLE NOVOA MD Ot R42 DIZZINESS AND GIDDINESS 12/18/2016 DIMPLE NOVOA MD Ot I65. 23 OCCLUSION AND STENOSIS OF [place] 12/18/2016 DIMPLE NOVOA MD Ot R42 DIZZINESS AND GIDDINESS 12/18/2016 NAOMY KINGP Ot Z 09 ENCNTR FOR F/U EXAM AFT TRTMT FOR COND O 12/18/2016 NAOMY KING Ot Z85.3 PERSONAL HISTORY OF MALIGNANT NEOPLASM O 12/18/2016 NAOMY KING Ot Z12.31 ENCNTR SCREEN MAMMOGRAM FOR MALIGNANT NE 12/18/2016 DESTINEE SULTANA DO Ot E04.1 NONTOXIC SINGLE THYROID NODULE 12/19/2016 ANUP SULTANA Ot E04.1 NONTOXIC SINGLE THYROID NODULE 12/25/2016 ANUP SULTANA MULE OPERATOR Ot E04.1 NONTOXIC SINGLE THYROID NODULE 12/25/2016 GRECIA DIXON Ot E11.9 TYPE 2 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 WITHOUT COMPLIC 12/25/2016 GRECIA DIXON Ot I10 ESSENTIAL (PRIMARY) HYPERTENSION 12/25/2016 GRECIA DIXON Ot I25.10 ATHSCL HEART DISEASE OF [place] CORONARY 12/25/2016 GRECIA DIXON Ot I65.23 OCCLUSION AND STENOSIS OF [place] 12/27/2016 DIMPLE NOVOA MD Ot E11. 9 TYPE 2 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 WITHOUT COMPLIC 12/27/2016 DIMPLE NOVOA MD Ot E78. 5 HYPERLIPIDEMIA, UNSPECIFIED 12/27/2016 DIMPLE NOVOA MD Ot I10 ESSENTIAL (PRIMARY) HYPERTENSION 12/27/2016 DIMPLE NOVOA MD Ot I25. 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 5 SICK SINUS SYNDROME 12/27/2016 DIMPLE NOVOA MD Ot R94. 39 ABNORMAL RESULT OF OTHER CARDIOVASCULAR 12/27/2016 DIMPLE NOVOA MD Ot T82.855A STENOSIS OF CORONARY ARTERY STENT, INITI 12/27/2016 DIMPLE NOVOA MD Ot Z79. 4 INFORMATION SYSTEMS OPERATOR (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 12/27/2016 DIMPLE NOVOA MD Ot Z79.899 OTHER INFORMATION SYSTEMS OPERATOR (CURRENT) DRUG THERAPY 12/27/2016 DIMPLE NOVOA MD Ot Z95. 0 PRESENCE OF CARDIAC PACEMAKER 01/06/2017 GRECIA DIXON Ot E11.9 TYPE 2 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 WITHOUT COMPLIC 01/06/2017 GRECIA DIXON Ot I10 ESSENTIAL (PRIMARY) HYPERTENSION 01/06/2017 GRECIA DIXON Ot I25.10 ATHSCL HEART DISEASE OF [place] CORONARY 01/06/2017 GRECIA DIXON Ot I65.23 OCCLUSION AND STENOSIS OF BILATERAL [place]TER[place] 01/06/2017 ANUP SULTANA MULE OPERATOR Ot E04.1 NONTOXIC SINGLE THYROID NODULE 01/06/2017 NAOMY KING MULE OPERATOR Ot 174.9 MALIGN NEOPL BREAST NOS 01/06/2017 ANUP SULTANA MULE OPERATOR Ot E04.1 NONTOXIC SINGLE THYROID NODULE 01/07/2017 DIMPLE NOVOA MD, Ot E11. 9 TYPE 2 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 WITHOUT COMPLIC 01/07/2017 DIMPLE NOVOA MD, Ot E78. 5 HYPERLIPIDEMIA, UNSPECIFIED 01/07/2017 DIMPLE NOVOA MD Ot I10 ESSENTIAL (PRIMARY) HYPERTENSION 01/07/2017 DIMPLE NOVOA MD, Ot I25. 10 ATHSCL HEART DISEASE OF [place] CORONARY 01/07/2017 DIMPLE NOVOA MD, Ot I25. 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 5 SICK SINUS SYNDROME 01/07/2017 DIMPLE NOVOA MD, Ot R94. 39 ABNORMAL RESULT OF OTHER CARDIOVASCULAR 01/07/2017 DIMPLE NOVOA MD Ot T82.855A STENOSIS OF CORONARY ARTERY STENT, INITI 01/07/2017 DIMPLE NOVOA MD, Ot Z79. 4 PENITENTIARY (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 01/07/2017 DIMPLE NOVOA MD, Ot Z79.899 OTHER INFORMATION SYSTEMS OPERATOR (CURRENT) DRUG THERAPY 01/07/2017 DIMPLE NOVOA MD Ot Z95. 0 PRESENCE OF CARDIAC PACEMAKER 01/13/2017 GRECIA DIXON Ot E11.9 TYPE 2 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 WITHOUT COMPLIC 01/13/2017 GRECIA DIXON Ot I10 ESSENTIAL (PRIMARY) HYPERTENSION 01/13/2017 GRECIA DIXON Ot I25.10 ATHSCL HEART DISEASE OF [place] CORONARY 01/13/2017 GRECIA DIXON Ot I65.23 OCCLUSION AND STENOSIS OF [place]ILATERAL [place] 01/14/2017 GRECIA DIXON Ot E11.9 TYPE 2 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 WITHOUT COMPLIC 01/14/2017 GRECIA DIXON Ot I10 ESSENTIAL (PRIMARY) HYPERTENSION 01/14/2017 GRECIA DIXON Ot I25.10 ATHSCL HEART DISEASE OF [place] CORONARY 01/14/2017 GRECIA DIXON Ot I65.23 OCCLUSION AND STENOSIS OF BILATERAL [place] 01/17/2017 DIMPLE NOVOA MD Ot E11. 9 TYPE 2 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 WITHOUT COMPLIC 01/17/2017 DIMPLE NOVOA MD Ot E78. 5 HYPERLIPIDEMIA, UNSPECIFIED 01/17/2017 DIMPLE NOVOA MD Ot I10 ESSENTIAL (PRIMARY) HYPERTENSION 01/17/2017 DIMPLE NOVOA MD Ot I25. 10 ATHSCL HEART DISEASE OF [place] CORONARY 01/17/2017 DIMPLE NOVOA MD Ot I25. 84 CORONARY ATHEROSCLEROSIS DUE TO CALCIFIE 01/17/2017 DIMPLE NOVOA MD Ot I49. 5 SICK SINUS SYNDROME 01/17/2017 DIMPLE NOVOA MD Ot R94. 39 ABNORMAL RESULT OF OTHER CARDIOVASCULAR 01/17/2017 DIMPLE NOVOA MD Ot T82.855A STENOSIS OF CORONARY ARTERY STENT, INITI 01/17/2017 DIMPLE NOVOA MD Ot Z79. 4 INFORMATION SYSTEMS OPERATOR (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 01/17/2017 DIMPLE NOVOA MD Ot Z79.899 OTHER PENITENTIARY (CURRENT) DRUG THERAPY 01/17/2017 DIMPLE NOVOA MD Ot Z95. 0 PRESENCE OF CARDIAC PACEMAKER 01/23/2017 ANUP SULTANA Ot E04.1 NONTOXIC SINGLE THYROID NODULE 01/27/2017 JOE ROBERTSON MD Ot E04.1 NONTOXIC SINGLE THYROID NODULE 01/28/2017 DIMPLE NOVOA MD Ot E11. 9 TYPE 2 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 WITHOUT COMPLIC 01/28/2017 DIMPLE NOVOA MD Ot E78. 5 HYPERLIPIDEMIA, UNSPECIFIED 01/28/2017 DIMPLE NOVOA MD Ot I10 ESSENTIAL (PRIMARY) HYPERTENSION 01/28/2017 DIMPLE NOVOA MD Ot I25. 10 ATHSCL HEART DISEASE OF [place] CORONARY 01/28/2017 DIMPLE NOVOA MD Ot I25. 84 CORONARY ATHEROSCLEROSIS DUE TO CALCIFIE 01/28/2017 DIMPLE NOVOA MD Ot I49. 5 SICK SINUS SYNDROME 01/28/2017 DIMPLE NOVOA MD Ot R94. 39 ABNORMAL RESULT OF OTHER CARDIOVASCULAR 01/28/2017 DIMPLE NOVOA MD Ot T82.855A STENOSIS OF CORONARY ARTERY STENT, INITI 01/28/2017 DIMPLE NOVOA MD, Ot Z79. 4 INFORMATION SYSTEMS OPERATOR (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 01/28/2017 DIMPLE NOVOA MD, Ot Z79.899 OTHER INFORMATION SYSTEMS OPERATOR (CURRENT) DRUG THERAPY 01/28/2017 DIMPLE NOVOA MD, Ot Z95. 0 PRESENCE OF CARDIAC PACEMAKER 01/29/2017 GRECIA DIXON Ot E11.9 TYPE 2 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 WITHOUT COMPLIC 01/29/2017 GRECIA DIXON Ot I10 ESSENTIAL (PRIMARY) HYPERTENSION 01/29/2017 GRECIA DIXON Ot I25.10 ATHSCL HEART DISEASE OF [place] CORONARY 01/29/2017 GRECIA DIXON Ot I65.23 OCCLUSION AND STENOSIS OF [place]AL [place] 03/13/2017 DIMPLE NOVOA MD Ot E11. 9 TYPE 2 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 WITHOUT COMPLIC 03/13/2017 DIMPLE NOVOA MD, Ot E78. 5 HYPERLIPIDEMIA, UNSPECIFIED 03/13/2017 DIMPLE NOVOA MD Ot I10 ESSENTIAL (PRIMARY) HYPERTENSION 03/13/2017 DIMPLE NOVOA MD, Ot I25. 10 ATHSCL HEART DISEASE OF [place] CORONARY 03/13/2017 DIMPLE NOVOA MD, Ot I25. 84 CORONARY ATHEROSCLEROSIS DUE TO CALCIFIE 03/13/2017 DIMPLE NOVOA MD, Ot I49. 5 SICK SINUS SYNDROME 03/13/2017 DIMPLE NOVOA MD, Ot R94. 39 ABNORMAL RESULT OF OTHER CARDIOVASCULAR 03/13/2017 DIMPLE NOVOA MD, Ot T82.855A STENOSIS OF CORONARY ARTERY STENT, INITI 03/13/2017 DIMPLE NOVOA MD, Ot Z79. 4 INFORMATION SYSTEMS OPERATOR (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 03/13/2017 DIMPLE NOVOA MD, Ot Z79.899 OTHER PENITENTIARY (CURRENT) DRUG THERAPY 03/13/2017 DIMPLE NOVOA MD, Ot Z95. 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 03/13/2017 ANTHONY GARZA Ot E11.43 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 03/13/2017 GREG ANTHONY Bender Ot E78.5 HYPERLIPIDEMIA, UNSPECIFIED 03/13/2017 GREG NATHONY Bender Ot 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 KDNY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 03/13/2017 ANTHONY GARZA Ot I25.10 ATHSCL HEART DISEASE OF [place] CORONARY 03/13/2017 GREGANTHONY Ot I50.9 HEART FAILURE, UNSPECIFIED 03/13/2017 GREGANTHONY Ot K21.9 GASTRO-ESOPHAGEAL REFLUX DISEASE WITHOUT 03/13/2017 GREGANTHONY SAMSON Ot N18.3 CHRONIC KIDNEY DISEASE, STAGE 3 (MODERAT 03/13/2017 GREGANTHONY Ot Z08 ENCNTR FOR FOLLOW-UP EXAM AFTER TRTMT FO 03/13/2017 ANTHONY GARZA Ot Z79.02 PENITENTIARY (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 OF ANTITHROMBOTI 03/13/2017 ANTHONY GARZA Ot 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 03/13/2017 ANTHONY GARZA Ot Z79.899 OTHER INFORMATION SYSTEMS OPERATOR (CURRENT) DRUG THERAPY 03/13/2017 GREGANTHONY Ot Z85.3 PERSONAL HISTORY OF MALIGNANT NEOPLASM O 03/13/2017 ANTHONY GARZA Ot Z95.5 PRESENCE OF CORONARY ANGIOPLASTY IMPLANT 03/14/2017 DIMPLE NOVOA MD Ot E11. 9 TYPE 2 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 WITHOUT COMPLIC 03/14/2017 DIMPLE NOVOA MD, Ot E78. 5 HYPERLIPIDEMIA, UNSPECIFIED 03/14/2017 DIMPLE NOVOA MD Ot I10 ESSENTIAL (PRIMARY) HYPERTENSION 03/14/2017 DIMPLE NOVOA MD Ot I25. 10 ATHSCL HEART DISEASE OF [place] CORONARY 03/14/2017 DIMPLE NOVOA MD, Ot I25. 84 CORONARY ATHEROSCLEROSIS DUE TO CALCIFIE 03/14/2017 DIMPLE NOVOA MD, Ot I49. 5 SICK SINUS SYNDROME 03/14/2017 DIMPLE NOVOA MD Ot R94. 39 ABNORMAL RESULT OF OTHER CARDIOVASCULAR 03/14/2017 DIMPLE NOVOA MD, Ot T82.855A STENOSIS OF CORONARY ARTERY STENT, INITI 03/14/2017 DIMPLE NOVOA MD Ot Z79. 4 PENITENTIARY (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 03/14/2017 DIMPLE NOVOA MD, Ot Z79.899 OTHER INFORMATION SYSTEMS OPERATOR (CURRENT) DRUG THERAPY 03/14/2017 DIMPLE NOVOA MD Ot Z95. 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 04/03/2017 ANTHONY GARZA N Ot E11.43 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 04/03/2017 ANTHONY GARZA N Ot E78.5 HYPERLIPIDEMIA, UNSPECIFIED 04/03/2017 ANTHONY GARZA Ot 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 KDNY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 04/03/2017 ANTHONY GARZA Ot I25.10 ATHSCL HEART DISEASE OF [place] CORONARY 04/03/2017 ANTHONY GARZA Ot I50.9 HEART FAILURE, UNSPECIFIED 04/03/2017 ANTHONY GARZA Ot K21.9 GASTRO-ESOPHAGEAL REFLUX DISEASE WITHOUT 04/03/2017 ANTHONY GARZA Ot N18.3 CHRONIC KIDNEY DISEASE, STAGE 3 (MODERAT 04/03/2017 ANTHONY GARZA Ot Z08 ENCNTR FOR FOLLOW-UP EXAM AFTER TRTMT FO 04/03/2017 ANTHONY GARZA Ot Z79.02 PENITENTIARY (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 OF ANTITHROMBOTI 04/03/2017 ANTHONY GARZA Ot Z79.4 PENITENTIARY (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 04/03/2017 ANTHONY GARZA Ot Z79.899 OTHER INFORMATION SYSTEMS OPERATOR (CURRENT) DRUG THERAPY 04/03/2017 ANTHONY GARZA Ot Z85.3 PERSONAL HISTORY OF MALIGNANT NEOPLASM O 04/03/2017 ANTHONY GARZA Ot Z95.5 PRESENCE OF CORONARY ANGIOPLASTY IMPLANT 04/03/2017 MARCELO ROJAS, JOE Sherman Ot E04.1 NONTOXIC SINGLE THYROID NODULE 04/23/2017 ANTHONY GARZA Ot E04.1 NONTOXIC SINGLE THYROID NODULE 04/23/2017 ANTHONY GARZA Ot 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 04/23/2017 ANTHONY GARZA N Ot E11.43 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 04/23/2017 ANTHONY GARZA N Ot E78.5 HYPERLIPIDEMIA, UNSPECIFIED 04/23/2017 GREG ALYCEBJORN Yulia Ot 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 KDNY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 04/23/2017 GREGANTHONY Ot I25.10 ATHSCL HEART DISEASE OF [place] CORONARY 04/23/2017 GREG ANTHONY Bender Ot I50.9 HEART FAILURE, UNSPECIFIED 04/23/2017 GREG ANTHONY Bender Ot K21.9 GASTRO-ESOPHAGEAL REFLUX DISEASE WITHOUT 04/23/2017 GREG ANTHONY Bender Ot N18.3 CHRONIC KIDNEY DISEASE, STAGE 3 (MODERAT 04/23/2017 GREG ANTHONY Bender Ot Z08 ENCNTR FOR FOLLOW-UP EXAM AFTER TRTMT FO 04/23/2017 GREGANTHONY Ot Z79.02 PENITENTIARY (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 OF ANTITHROMBOTI 04/23/2017 ANTHONY GARZA Ot 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 04/23/2017 ANTHONY GARZA Ot Z79.899 OTHER PENITENTIARY (CURRENT) DRUG THERAPY 04/23/2017 GREGANTHONY Ot Z85.3 PERSONAL HISTORY OF MALIGNANT NEOPLASM O 04/23/2017 GREGANTHONY Ot Z95.5 PRESENCE OF CORONARY ANGIOPLASTY IMPLANT 08/06/2017 ANTHONY GARZA Ot Z12.31 ENCNTR SCREEN MAMMOGRAM FOR MALIGNANT NE 08/06/2017 MARCELO ROJAS, JOE Sherman Ot E04.1 NONTOXIC SINGLE THYROID NODULE 08/06/2017 ANTHONY GARZA Ot E04.1 NONTOXIC SINGLE THYROID NODULE 08/06/2017 GREGANTHONY SAMSON Ot 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 08/06/2017 GREGANTHONY Ot E11.43 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 08/06/2017 GREGANTHONY Ot E78.5 HYPERLIPIDEMIA, UNSPECIFIED 08/06/2017 GREGANTHONY Ot 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 KD[place]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 08/06/2017 GREGANTHONY Ot I25.10 ATHSCL HEART DISEASE OF [place] CORONARY 08/06/2017 GREGANTHONY Ot I50.9 HEART FAILURE, UNSPECIFIED 08/06/2017 GREGANTHONY Ot K21.9 GASTRO-ESOPHAGEAL REFLUX DISEASE WITHOUT 08/06/2017 GREGANTHONY SAMSON Ot N18.3 CHRONIC KIDNEY DISEASE, STAGE 3 (MODERAT 08/06/2017 ANTHONY GARZA Ot Z08 ENCNTR FOR FOLLOW-UP EXAM AFTER TRTMT FO 08/06/2017 ANTHONY GARZA Ot Z79.02 PENITENTIARY (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 OF ANTITHROMBOTI 08/06/2017 ANTHONY GARZA Yulia Ot Z79.4 PENITENTIARY (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 08/06/2017 ANTHONY GARZA Yulia Ot Z79.899 OTHER INFORMATION SYSTEMS OPERATOR (CURRENT) DRUG THERAPY 08/06/2017 ANTHONY GARZA Yulia Ot Z85.3 PERSONAL HISTORY OF MALIGNANT NEOPLASM O 08/06/2017 GREGANTHONY SAMSON Yulia Ot Z95.5 PRESENCE OF CORONARY ANGIOPLASTY IMPLANT 08/06/2017 GREGANTHONY SAMSON Yulia Ot Z12.31 ENCNTR SCREEN MAMMOGRAM FOR MALIGNANT NE 08/09/2017 DARYL PIEDRA APRN Ot E11.40 TYPE 2 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 WITH DIABETIC N 08/09/2017 DARYL PIEDRA APRN Ot E11.51 TYPE 2 DIABETES W DIABETIC PERIPHERAL AN 08/09/2017 DARYL PIEDRA APRN Ot E11.621 TYPE 2 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 WITH FOOT ULCER 08/09/2017 DARYL PIEDRA APRN Ot E78.00 PURE HYPERCHOLESTEROLEMIA, UNSPECIFIED 08/09/2017 DARYL PIEDRA CUSTOMER MANAGER Ot I11 .0 HYPERTENSIVE HEART DISEASE WITH HEART FA 08/09/2017 DARYL PIEDRA APRN Ot I25.10 ATHSCL HEART DISEASE OF [place] CORONARY 08/09/2017 DARYL PIEDRA APRN Ot I25 .2 OLD MYOCARDIAL INFARCTION 08/09/2017 DARYL PIEDRA CUSTOMER MANAGER Ot I50 .9 HEART FAILURE, UNSPECIFIED 08/09/2017 DARYL PIEDRA APRN Ot J10 .1 FLU DUE TO OTH IDENT INFLUENZA VIRUS W O 08/09/2017 DARYL PIEDRA APRN Ot K21 .9 GASTRO-ESOPHAGEAL REFLUX DISEASE WITHOUT 08/09/2017 DARYL PIEDRA APRN Ot R19 .7 DIARRHEA, UNSPECIFIED 08/09/2017 DARYL PIEDRA APRN Ot Z79 .4 PENITENTIARY (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 08/09/2017 DARYL PIEDRA APRN Ot Z82.49 FAMILY HX OF [place] HEART DIS AND OTH DI 08/09/2017 DARYL PIEDRA APRN Ot Z85 .3 PERSONAL HISTORY OF MALIGNANT NEOPLASM O 08/09/2017 DARYL PIEDRA APRN Ot Z86.73 PRSNL HX OF TIA (TIA), AND CEREB INFRC W 08/09/2017 DARYL PIEDRA APRN Ot Z90.710 ACQUIRED ABSENCE OF BOTH CERVIX AND UTER 08/09/2017 DARYL PIEDRA APRN Ot Z95 .0 PRESENCE OF CARDIAC PACEMAKER 08/09/2017 DARYL PIEDRA APRN Ot Z95 .5 PRESENCE OF CORONARY ANGIOPLASTY IMPLANT 08/11/2017 DARYL PIEDRA APRN Ot E11.40 TYPE 2 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 WITH DIABETIC N 08/11/2017 DARYL PIEDRA APRN Ot E11.51 TYPE 2 DIABETES W DIABETIC PERIPHERAL AN 08/11/2017 DARYL PIEDRA APRN Ot E11.621 TYPE 2 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 WITH FOOT ULCER 08/11/2017 DARYL PIEDRA APRN Ot E78.00 PURE HYPERCHOLESTEROLEMIA, UNSPECIFIED 08/11/2017 DARYL PIEDRA APRN Ot I11 .0 HYPERTENSIVE HEART DISEASE WITH HEART FA 08/11/2017 DARYL PIEDRA APRN Ot I25.10 ATHSCL HEART DISEASE OF [place] CORONARY 08/11/2017 DARYL PIEDRA APRN Ot I25 .2 OLD MYOCARDIAL INFARCTION 08/11/2017 DARYL PIEDRA APRN Ot I50 .9 HEART FAILURE, UNSPECIFIED 08/11/2017 DARYL PIEDRA APRN Ot J10 .1 FLU DUE TO [facility] IDENT INFLUENZA VIRUS W O 08/11/2017 DARYL PIEDRA APRN Ot K21 .9 GASTRO-ESOPHAGEAL REFLUX DISEASE WITHOUT 08/11/2017 DARYL PIEDRA APRN Ot R19 .7 DIARRHEA, UNSPECIFIED 08/11/2017 DARYL PIEDRA APRN Ot Z79 .4 PENITENTIARY (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 08/11/2017 DARYL PIEDRA APRN Ot Z82.49 FAMILY HX OF [place] HEART DIS AND OTH DI 08/11/2017 DARYL PIEDRA APRN Ot Z85 .3 PERSONAL HISTORY OF MALIGNANT NEOPLASM O 08/11/2017 DARYL PIEDRA APRN Ot Z86.73 PRSNL HX OF TIA (TIA), AND CEREB INFRC W 08/11/2017 DARYL PIEDRA APRN Ot Z90.710 ACQUIRED ABSENCE OF BOTH CERVIX AND UTER 08/11/2017 DARYL PIEDRA CUSTOMER MANAGER Ot Z95 .0 PRESENCE OF CARDIAC PACEMAKER 08/11/2017 DARYL PIEDRA CUSTOMER MANAGER Ot Z95 .5 PRESENCE OF CORONARY ANGIOPLASTY IMPLANT 09/11/2017 DENIS WEAVER DRY WALL FINISHER-C Ot E11.9 TYPE 2 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 WITHOUT COMPLIC 09/11/2017 DENIS WEAVER DRY WALL FINISHER-C Ot E55.9 VITAMIN D DEFICIENCY, UNSPECIFIED 09/11/2017 DENIS WEAVER DRY WALL FINISHER-C Ot E78.5 HYPERLIPIDEMIA, UNSPECIFIED 09/11/2017 DENIS WEAVER DRY WALL FINISHER-C Ot E87.2 ACIDOSIS 09/11/2017 DENIS WEAVER DRY WALL FINISHER-C Ot I12.9 HYPERTENSIVE CHRONIC KIDNEY DISEASE W ST 09/11/2017 DENIS WEAVER OlafKit DRY WALL FINISHER-C Ot I25.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 09/11/2017 DENIS WEAVER DRY WALL FINISHER-C Ot K21.9 GASTRO-ESOPHAGEAL REFLUX DISEASE WITHOUT 09/11/2017 DENIS WEAVER DRY WALL FINISHER-C Ot N18.3 CHRONIC KIDNEY DISEASE, STAGE 3 (MODERAT 09/24/2017 DIMPLE NOVOA MD Ot E11. 40 TYPE 2 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 WITH DIABETIC N 09/24/2017 DIMPLE NOVOA MD Ot E11.621 TYPE 2 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 WITH FOOT ULCER 09/24/2017 DIMPLE NOVOA MD Ot E78. 5 HYPERLIPIDEMIA, UNSPECIFIED 09/24/2017 DIMPLE NOVOA MD Ot I25. 10 ATHSCL HEART DISEASE OF [place] CORONARY 09/24/2017 DIMPLE NOVOA MD Ot I48. 0 PAROXYSMAL ATRIAL FIBRILLATION 09/24/2017 DIMPLE NOVOA MD Ot I49. 5 SICK SINUS SYNDROME 09/24/2017 DIMPLE NOVOA MD Ot I65. 29 OCCLUSION AND STENOSIS OF UNSPECIFIED CA 09/24/2017 DIMPLE NOVOA MD Ot I73. 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 3 CHRONIC KIDNEY DISEASE, STAGE 3 (MODERAT 09/24/2017 DIMPLE NOVOA MD Ot R07. 9 CHEST PAIN, UNSPECIFIED 09/24/2017 DIMPLE NOVOA MD Ot Z79. 4 INFORMATION SYSTEMS OPERATOR (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 09/24/2017 DIMPLE NOVOA MD Ot Z85. 3 PERSONAL HISTORY OF MALIGNANT NEOPLASM O 09/24/2017 DIMPLE NOVOA MD Ot Z88. 0 ALLERGY STATUS TO PENICILLIN 09/24/2017 DIMPLE NOVOA MD Ot Z88. 2 ALLERGY STATUS TO SULFONAMIDES STATUS 09/24/2017 DIMPLE NOVOA MD Ot Z88. 5 ALLERGY STATUS TO NARCOTIC AGENT STATUS 09/24/2017 DIMPLE NOVOA MD Ot Z88. 8 ALLERGY STATUS TO OT DRUG/MEDS/BIOL SUB 09/28/2017 DIMPLE NOVOA MD Ot E11. 40 TYPE 2 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 WITH DIABETIC N 09/28/2017 DIMPLE NOVOA MD Ot E11.621 TYPE 2 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 WITH FOOT ULCER 09/28/2017 DIMPLE NOVOA MD Ot E78. 5 HYPERLIPIDEMIA, UNSPECIFIED 09/28/2017 DIMPLE NOVOA MD Ot I25. 10 ATHSCL HEART DISEASE OF [place] CORONARY 09/28/2017 DIMPLE NOVOA MD Ot I48. 0 PAROXYSMAL ATRIAL FIBRILLATION 09/28/2017 DIMPLE NOVOA MD Ot I49. 5 SICK SINUS SYNDROME 09/28/2017 DIMPLE NOVOA MD Ot I65. 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 3 CHRONIC KIDNEY DISEASE, STAGE 3 (MODERAT 09/28/2017 DIMPLE NOVOA MD Ot R07. 9 CHEST PAIN, UNSPECIFIED 09/28/2017 DIMPLE NOVOA MD Ot Z79. 4 PENITENTIARY (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 09/28/2017 DIMPLE NOVOA MD Ot Z85. 3 PERSONAL HISTORY OF MALIGNANT NEOPLASM O 09/28/2017 DIMPLE NOVOA MD Ot Z88. 0 ALLERGY STATUS TO PENICILLIN 09/28/2017 DIMPLE NOVOA MD Ot Z88. 2 ALLERGY STATUS TO SULFONAMIDES STATUS 09/28/2017 DIMPLE NOVOA MD Ot Z88. 5 ALLERGY STATUS TO NARCOTIC AGENT STATUS 09/28/2017 DIMPLE NOVOA MD Ot Z88. 8 ALLERGY STATUS TO OTH DRUG/MEDS/BIOL SUB 10/06/2017 MEG DENIS OlafKit DRY WALL FINISHER-C Ot E11.9 TYPE 2 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 WITHOUT COMPLIC 10/06/2017 DENIS WEAVER OlafKit DRY WALL FINISHER-C Ot E55.9 VITAMIN D DEFICIENCY, UNSPECIFIED 10/06/2017 DENIS WEAVER OlafKit DRY WALL FINISHER-C Ot E78.5 HYPERLIPIDEMIA, UNSPECIFIED 10/06/2017 DENIS WEAVER OlafKit DRY WALL FINISHER-C Ot E87.2 ACIDOSIS 10/06/2017 DENIS WEAVER OlafKit DRY WALL FINISHER-C Ot I12.9 HYPERTENSIVE CHRONIC KIDNEY DISEASE W ST 10/06/2017 DENIS WEAVER OlafKit DRY WALL FINISHER-C Ot I25.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 10/06/2017 MEG DENIS OlafKit DRY WALL FINISHER-C Ot K21.9 GASTRO-ESOPHAGEAL REFLUX DISEASE WITHOUT 10/06/2017 DENIS WEAVER OlafKit DRY WALL FINISHER-C Ot N18.3 CHRONIC KIDNEY DISEASE, STAGE 3 (MODERAT 10/28/2017 DIMPLE NOVOA MD Ot E11. 40 TYPE 2 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 WITH DIABETIC N 10/28/2017 DIMPLE NOVOA MD Ot E11.621 TYPE 2 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 WITH FOOT ULCER 10/28/2017 DIMPLE NOVOA MD Ot E78. 5 HYPERLIPIDEMIA, UNSPECIFIED 10/28/2017 DIMPLE NOVOA MD Ot I25. 10 ATHSCL HEART DISEASE OF [place] CORONARY 10/28/2017 DIMPLE NOVOA MD Ot I48. 0 PAROXYSMAL ATRIAL FIBRILLATION 10/28/2017 DIMPLE NOVOA MD Ot I49. 5 SICK SINUS SYNDROME 10/28/2017 DIMPLE NOVOA MD Ot I65. 29 OCCLUSION AND STENOSIS OF UNSPECIFIED CA 10/28/2017 DIMPLE NOVOA MD Ot I73. 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 3 CHRONIC KIDNEY DISEASE, STAGE 3 (MODERAT 10/28/2017 DIMPLE NOVOA MD Ot R07. 9 CHEST PAIN, UNSPECIFIED 10/28/2017 DIMPLE NOVOA MD Ot Z79. 4 PENITENTIARY (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 10/28/2017 DIMPLE NOVOA MD, Ot Z85. 3 PERSONAL HISTORY OF MALIGNANT NEOPLASM O 10/28/2017 DIMPLE NOVOA MD Ot Z88. 0 ALLERGY STATUS TO PENICILLIN 10/28/2017 DIMPLE NOVOA MD, Ot Z88. 2 ALLERGY STATUS TO SULFONAMIDES STATUS 10/28/2017 DIMPLE NOVOA MD, Ot Z88. 5 ALLERGY STATUS TO NARCOTIC AGENT STATUS 10/28/2017 DIMPLE NOVOA MD, Ot Z88. 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 12/22/2017 DENIS WEAVER [employer] DRY WALL FINISHER-C Ot K21.9 GASTRO-ESOPHAGEAL REFLUX DISEASE WITHOUT 12/22/2017 DENIS WEAVER [employer] DRY WALL FINISHER-C Ot N18.3 CHRONIC KIDNEY DISEASE, STAGE 3 (MODERAT 12/23/2017 JOE ROBERTSON MD Ot E11.5 1 TYPE 2 DIABETES W DIABETIC PERIPHERAL AN 12/23/2017 JOE ROBERTSON MD Ot E78.5 HYPERLIPIDEMIA, UNSPECIFIED 12/23/2017 JOE ROBERTSON MD Ot E87.6 HYPOKALEMIA 12/23/2017 JOE ROBERTSON MD Ot I12.9 HYPERTENSIVE CHRONIC KIDNEY DISEASE W ST 12/23/2017 JOE ROBERTSON MD Ot I25.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 12/23/2017 JOE ROBERTSON MD Ot I25.2 [...] 4 (SEVERE) 12/23/2017 JOE ROBERTSON MD Ot R06.0 9 OTHER FORMS OF DYSPNEA 12/23/2017 JOE ROBERTSON MD Ot R42 DIZZINESS AND GIDDINESS 12/23/2017 JOE ROBERTSON MD Ot R53.1 WEAKNESS 12/23/2017 JOE ROBERTSON MD Ot Z79.0 1 PENITENTIARY (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 OF ANTICOAGULANT 12/23/2017 JOE ROBERTSON MD Ot Z85.3 PERSONAL HISTORY OF MALIGNANT NEOPLASM O 12/23/2017 JOE ROBERTSON MD, Ot Z88.0 ALLERGY STATUS TO PENICILLIN 12/23/2017 JOE ROBERTSON MD Ot Z88.2 ALLERGY STATUS TO SULFONAMIDES STATUS 12/23/2017 JOE ROBERTSON MD, Ot Z88.5 ALLERGY STATUS TO NARCOTIC AGENT STATUS 12/23/2017 JOE ROBERTSON MD Ot Z95.0 PRESENCE OF CARDIAC PACEMAKER 12/23/2017 JOE ROBERTSON MD Ot Z95.5 PRESENCE OF CORONARY ANGIOPLASTY IMPLANT 12/23/2017 JOE ROBERTSON MD Ot E11.5 1 TYPE 2 DIABETES W DIABETIC PERIPHERAL AN 12/23/2017 JOE ROBERTSON MD Ot E78.5 HYPERLIPIDEMIA, UNSPECIFIED 12/23/2017 JOE ROBERTSON MD Ot E87.6 HYPOKALEMIA 12/23/2017 JOE ROBERTSON MD Ot I12.9 HYPERTENSIVE CHRONIC KIDNEY DISEASE W ST 12/23/2017 JOE ROBERTSON MD Ot I25.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 12/23/2017 JOE ROBERTSON MD Ot I25.2 [...] 4 (SEVERE) 12/23/2017 JOE ROBERTSON MD Ot R06.0 9 OTHER FORMS OF DYSPNEA 12/23/2017 JOE ROBERTSON MD Ot R42 DIZZINESS AND GIDDINESS 12/23/2017 JOE ROBERTSON MD Ot R53.1 WEAKNESS 12/23/2017 JOE ROBERTSON MD Ot Z79.0 1 INFORMATION SYSTEMS OPERATOR (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 OF ANTICOAGULANT 12/23/2017 JOE ROBERTSON [...] Z95.5 PRESENCE OF CORONARY ANGIOPLASTY IMPLANT 01/22/2018 VANGIE MOTT MD Ot Z01.81 8 ENCOUNTER FOR OTHER PREPROCEDURAL EXAMIN 02/05/2018 PRISCILLA HAGEN MD Ot A41.51 SEPSIS DUE TO ESCHERICHIA COLI [E. COLI] 02/05/2018 PRISCILLA HAGEN MD Ot E11.9 TYPE 2 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 WITHOUT COMPLIC 02/05/2018 PRISCILLA HAGEN MD Ot E86.0 DEHYDRATION 02/05/2018 PRISCILLA HAGEN MD Ot I12.9 HYPERTENSIVE CHRONIC KIDNEY DISEASE W ST 02/05/2018 PRISCILLA HAGEN MD Ot I25.10 ATHSCL HEART DISEASE OF [place] CORONARY 02/05/2018 PRISCILLA HAGEN MD Ot N18.3 CHRONIC KIDNEY DISEASE, STAGE 3 (MODERAT 02/05/2018 PRISCILLA HAGEN MD Ot N39.0 URINARY TRACT INFECTION, SITE NOT SPECIF 02/05/2018 PRISCILLA HAGEN MD Ot R42 DIZZINESS AND GIDDINESS 02/05/2018 PRISCILLA HAGEN MD Ot 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 02/05/2018 PRISCILLA HAGEN [...] MD Ot I25.10 ATHSCL HEART DISEASE OF [place] CORONARY 02/05/2018 PRISCILLA HAGEN MD, Ot N18.3 CHRONIC KIDNEY DISEASE, STAGE 3 (MODERAT 02/05/2018 PRISCILLA HAGEN MD Ot N39.0 URINARY TRACT INFECTION, SITE NOT SPECIF 02/05/2018 PRISCILLA HAGEN MD Ot R42 DIZZINESS AND GIDDINESS 02/05/2018 PRISCILLA HAGEN MD, Ot Z79.4 PENITENTIARY (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 02/05/2018 PRISCILLA HAGEN MD Ot Z95.0 PRESENCE OF CARDIAC PACEMAKER 03/11/2018 JOSÉ LUIS OBRIEN, JARROD Chase Ot M17.12 UNILATERAL PRIMARY OSTEOARTHRITIS, LEFT 03/16/2018 MARCELO ROJAS, JOE Sherman Ot E04.1 NONTOXIC SINGLE THYROID NODULE 03/16/2018 ANTHONY GARZA Ot E04.1 NONTOXIC SINGLE THYROID NODULE 03/16/2018 ANTHONY GARZA Ot 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 03/16/2018 ANTHONY GARZA Ot E11.43 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 03/16/2018 ANTHONY GARZA Ot E78.5 HYPERLIPIDEMIA, UNSPECIFIED 03/16/2018 ANTHONY GARZA Ot 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 KDNY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 03/16/2018 ANTHONY GARZA Ot I25.10 ATHSCL HEART DISEASE OF [place] CORONARY 03/16/2018 ANTHONY GARZA Ot I50.9 HEART FAILURE, UNSPECIFIED 03/16/2018 ANTHONY GARZA Ot K21.9 GASTRO-ESOPHAGEAL REFLUX DISEASE WITHOUT 03/16/2018 ANTHONY GARZA Ot N18.3 CHRONIC KIDNEY DISEASE, STAGE 3 (MODERAT 03/16/2018 ANTHONY GARZA Ot Z08 ENCNTR FOR FOLLOW-UP EXAM AFTER TRTMT FO 03/16/2018 ANTHONY GARZA Ot Z79.02 INFORMATION SYSTEMS OPERATOR (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 OF ANTITHROMBOTI 03/16/2018 ANTHONY GARZA Ot Z79.4 PENITENTIARY (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 03/16/2018 ANTHONY GARZA Ot Z79.899 OTHER INFORMATION SYSTEMS OPERATOR (CURRENT) DRUG THERAPY 03/16/2018 ANTHONY GARZA Ot Z85.3 PERSONAL HISTORY OF MALIGNANT NEOPLASM O 03/16/2018 ANTHONY GARZA Ot Z95.5 PRESENCE OF CORONARY ANGIOPLASTY IMPLANT 03/16/2018 MEG DENIS G. DRY WALL FINISHER-C Ot E11.9 TYPE 2 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 WITHOUT COMPLIC 03/16/2018 MEG DENIS G. DRY WALL FINISHER-C Ot E55.9 VITAMIN D DEFICIENCY, UNSPECIFIED 03/16/2018 NEW DENIS G. DRY WALL FINISHER-C Ot E78.5 HYPERLIPIDEMIA, UNSPECIFIED 03/16/2018 MEG DENIS G. DRY WALL FINISHER-C Ot E87.2 ACIDOSIS 03/16/2018 MEG DENIS GKit DRY WALL FINISHER-C Ot I12.9 HYPERTENSIVE CHRONIC KIDNEY DISEASE W ST 03/16/2018 MEG DENIS GKit DRY WALL FINISHER-C Ot I25.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 03/16/2018 MEG DENIS G. DRY WALL FINISHER-C Ot K21.9 GASTRO-ESOPHAGEAL REFLUX DISEASE WITHOUT 03/16/2018 MEG DENIS G. 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 03/17/2018 ANTHONY GARZA Ot E78.5 HYPERLIPIDEMIA, UNSPECIFIED 03/17/2018 ANTHONY GARZA Ot 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 [place]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 03/17/2018 ANTHONY GARZA Ot I25.10 ATHSCL HEART DISEASE OF [place] CORONARY 03/17/2018 ANTHONY GARZA Ot I50.9 HEART FAILURE, UNSPECIFIED 03/17/2018 GREGANTHONY Ot K21.9 GASTRO-ESOPHAGEAL REFLUX DISEASE WITHOUT 03/17/2018 ANTHONY GARZA Ot N18.3 CHRONIC KIDNEY DISEASE, STAGE 3 (MODERAT 03/17/2018 GREGANTHONY Ot Z08 ENCNTR FOR FOLLOW-UP EXAM AFTER TRTMT FO 03/17/2018 GREG ANTHONY Bender Ot Z79.02 INFORMATION SYSTEMS OPERATOR (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 OF ANTITHROMBOTI 03/17/2018 GREGANTHONY Ot Z79.4 PENITENTIARY (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 03/17/2018 GREGANTHONY Ot Z79.899 OTHER PENITENTIARY (CURRENT) DRUG THERAPY 03/17/2018 GREGANTHONY Ot Z85.3 PERSONAL HISTORY OF MALIGNANT NEOPLASM O 03/17/2018 ANTHONY GARZA Ot Z95.5 PRESENCE OF CORONARY ANGIOPLASTY IMPLANT 04/05/2018 DENIS WEAVER DRY WALL FINISHER-C Ot E11.9 TYPE 2 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 WITHOUT COMPLIC 04/05/2018 DENIS WEAVER DRY WALL FINISHER-C Ot E55.9 VITAMIN D DEFICIENCY, UNSPECIFIED 04/05/2018 DENIS WEAVER DRY WALL FINISHER-C Ot E78.5 HYPERLIPIDEMIA, UNSPECIFIED 04/05/2018 MEG DENIS G. DRY WALL FINISHER-C Ot E87.2 ACIDOSIS 04/05/2018 DENIS WEAVER DRY WALL FINISHER-C Ot I12.9 HYPERTENSIVE CHRONIC KIDNEY DISEASE W ST 04/05/2018 DENIS WEAVER DRY WALL FINISHER-C Ot I25.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 04/05/2018 DENIS WEAVER DRY WALL FINISHER-C Ot K21.9 GASTRO-ESOPHAGEAL REFLUX DISEASE WITHOUT 04/05/2018 DENIS WEAVER DRY WALL FINISHER-C Ot N18.3 CHRONIC KIDNEY DISEASE, STAGE 3 (MODERAT 04/07/2018 GREGANTHONY Ot E04.1 NONTOXIC SINGLE THYROID NODULE 04/07/2018 ANTHONY GARZA Ot 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 04/07/2018 ANTHONY GARZA Ot E11.43 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 04/07/2018 ANTHONY GARZA Ot E78.5 HYPERLIPIDEMIA, UNSPECIFIED 04/07/2018 ANTHONY GARZA Ot 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 [place]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 04/07/2018 ANTHONY GARZA Ot I25.10 ATHSCL HEART DISEASE OF [place] CORONARY 04/07/2018 ANTHONY GARZA Ot I50.9 HEART FAILURE, UNSPECIFIED 04/07/2018 ANTHONY GARZA Ot K21.9 GASTRO-ESOPHAGEAL REFLUX DISEASE WITHOUT 04/07/2018 ANTHONY GARZA Ot N18.3 CHRONIC KIDNEY DISEASE, STAGE 3 (MODERAT 04/07/2018 ANTHONY GARZA Ot Z08 ENCNTR FOR FOLLOW-UP EXAM AFTER TRTMT FO 04/07/2018 ANTHONY GARZA Ot Z79.02 PENITENTIARY (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 OF ANTITHROMBOTI 04/07/2018 ANTHONY GARZA Ot 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 04/07/2018 ANTHONY GARZA Ot Z79.899 OTHER PENITENTIARY (CURRENT) DRUG THERAPY 04/07/2018 ANTHONY GARZA Ot Z85.3 PERSONAL HISTORY OF MALIGNANT NEOPLASM O 04/07/2018 ANTHONY GARZA Ot Z95.5 PRESENCE OF CORONARY ANGIOPLASTY IMPLANT 04/27/2018 NAOMY KING MULE OPERATOR Ot Z12.31 ENCNTR SCREEN MAMMOGRAM FOR MALIGNANT NE 04/29/2018 NAOMY KINGP Ot 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 04/29/2018 NAOMY KING MULE OPERATOR Ot Z12.31 ENCNTR SCREEN MAMMOGRAM FOR MALIGNANT NE 04/29/2018 ANTHONY GARZA Ot E04.1 NONTOXIC SINGLE THYROID NODULE 04/29/2018 ANTHONY GARZA Ot 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 04/29/2018 ANTHONY GARZA Ot E11.43 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 04/29/2018 ANTHONY GARZA Ot E78.5 HYPERLIPIDEMIA, UNSPECIFIED 04/29/2018 ANTHONY GARZA Ot 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 [place]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 04/29/2018 ANTHONY GARZA Ot I25.10 ATHSCL HEART DISEASE OF [place] CORONARY 04/29/2018 ANTHONY GARZA Ot I50.9 HEART FAILURE, UNSPECIFIED 04/29/2018 ANTHONY GARZA Ot K21.9 GASTRO-ESOPHAGEAL REFLUX DISEASE WITHOUT 04/29/2018 GREGANTHONY SAMSON Yulia Ot N18.3 CHRONIC KIDNEY DISEASE, STAGE 3 (MODERAT 04/29/2018 ANTHONY GARZA Yulia Ot Z08 ENCNTR FOR FOLLOW-UP EXAM AFTER TRTMT FO 04/29/2018 ANTHONY GARZA Yulia Ot Z79.02 INFORMATION SYSTEMS OPERATOR (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 OF ANTITHROMBOTI 04/29/2018 ANTHONY GARZA Yulia Ot Z79.4 PENITENTIARY (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 04/29/2018 ANTHONY GARZA Yulia Ot Z79.899 OTHER INFORMATION SYSTEMS OPERATOR (CURRENT) DRUG THERAPY 04/29/2018 ANTHONY GARZA Yulia Ot Z85.3 PERSONAL HISTORY OF MALIGNANT NEOPLASM O 04/29/2018 GREGANTHONY SAMSON Yulia Ot Z95.5 PRESENCE OF CORONARY ANGIOPLASTY IMPLANT 05/18/2018 NAOMY KING MULE OPERATOR Ot 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 05/18/2018 NAOMY KING MULE OPERATOR Ot Z12.31 ENCNTR SCREEN MAMMOGRAM FOR MALIGNANT NE 06/16/2018 SKIP KERN APRN Ot 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 06/16/2018 SKIP KERN APRN Ot E78.5 HYPERLIPIDEMIA, UNSPECIFIED 06/16/2018 SKIP KERN APRN Ot E87.2 ACIDOSIS 06/16/2018 SKIP KERN APRN Ot E87.3 ALKALOSIS 06/16/2018 SKIP KERN APRN Ot I12.9 HYPERTENSIVE CHRONIC KIDNEY DISEASE W ST 06/16/2018 SKIP KERN APRN Ot I25.10 ATHSCL HEART DISEASE OF [place] CORONARY 06/16/2018 SKIP KERN APRN Ot K21.9 GASTRO-ESOPHAGEAL REFLUX DISEASE WITHOUT 06/16/2018 SKIP KERN APRN Ot N18.3 CHRONIC KIDNEY DISEASE, STAGE 3 (MODERAT 06/16/2018 SKIP KERN APRN Ot N25.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 O 06/22/2018 DIMPLE NOVOA MD Ot E11. 9 TYPE 2 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 WITHOUT COMPLIC 06/22/2018 DIMPLE NOVOA MD Ot E78. 5 HYPERLIPIDEMIA, UNSPECIFIED 06/22/2018 DIMPLE NOVOA MD, Ot I12. 9 HYPERTENSIVE CHRONIC KIDNEY DISEASE W ST 06/22/2018 DIMPLE NOVOA MD, Ot I25. 10 ATHSCL HEART DISEASE OF [place] CORONARY 06/22/2018 DIMPLE NOVOA MD, Ot I48. 0 PAROXYSMAL ATRIAL FIBRILLATION 06/22/2018 DIMPLE NOVOA MD, Ot I49. 5 SICK SINUS SYNDROME 06/22/2018 DIMPLE NOVOA MD Ot I65. 29 OCCLUSION AND STENOSIS OF UNSPECIFIED CA 06/22/2018 DIMPLE NOVOA MD Ot I73. 9 PERIPHERAL VASCULAR DISEASE, UNSPECIFIED 06/22/2018 DIMPLE NOVOA MD, Ot N18. 3 CHRONIC KIDNEY DISEASE, STAGE 3 (MODERAT 06/22/2018 DIMPLE NOVOA MD Ot R07. 9 CHEST PAIN, UNSPECIFIED 06/22/2018 DIMPLE NOVOA MD, Ot Z11. 2 ENCOUNTER FOR SCREENING FOR OTHER BACTER 06/22/2018 DIMPLE NOVOA MD, Ot Z53. 8 PROCEDURE AND TREATMENT NOT CARRIED OUT 06/22/2018 DIMPLE NOVOA MD, Ot Z79. 82 INFORMATION SYSTEMS OPERATOR (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 OF ASPIRIN 06/22/2018 DIMPLE NOVOA MD, Ot Z79.899 OTHER INFORMATION SYSTEMS OPERATOR (CURRENT) DRUG THERAPY 06/22/2018 DIMPLE NOVOA MD, Ot Z85. 3 PERSONAL HISTORY OF MALIGNANT NEOPLASM O 06/22/2018 DIMPLE NOVOA MD Ot Z95. 5 PRESENCE OF CORONARY ANGIOPLASTY IMPLANT 07/09/2018 SKIP KERN APRN Ot 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 07/09/2018 SKIP KERN APRN Ot E78.5 HYPERLIPIDEMIA, UNSPECIFIED 07/09/2018 SKIP KERN APRN Ot E87.2 ACIDOSIS 07/09/2018 SKIP KERN APRN Ot E87.3 ALKALOSIS 07/09/2018 SKIP KERN APRN Ot I12.9 HYPERTENSIVE CHRONIC KIDNEY DISEASE W ST 07/09/2018 SKIP KERN APRN Ot I25.10 ATHSCL HEART DISEASE OF [place] CORONARY 07/09/2018 SKIP KERN APRN Ot K21.9 GASTRO-ESOPHAGEAL REFLUX DISEASE WITHOUT 07/09/2018 SKIP KERN APRN Ot N18.3 CHRONIC KIDNEY DISEASE, STAGE 3 (MODERAT 07/09/2018 SKIP KERN APRN Ot N25.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 O 07/09/2018 DIMPLE NOVOA MD Ot E11. 9 TYPE 2 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 WITHOUT COMPLIC 07/09/2018 DIMPLE NOVOA MD Ot E78. 5 HYPERLIPIDEMIA, UNSPECIFIED 07/09/2018 DIMPLE NOVOA MD Ot I12. 9 HYPERTENSIVE CHRONIC KIDNEY DISEASE W ST 07/09/2018 DIMPLE NOVOA MD Ot I25. 10 ATHSCL HEART DISEASE OF [place] CORONARY 07/09/2018 DIMPLE NOVOA MD Ot I48. 0 PAROXYSMAL ATRIAL FIBRILLATION 07/09/2018 DIMPLE NOVOA MD Ot I49. 5 SICK SINUS SYNDROME 07/09/2018 DIMPLE NOVOA MD Ot I65. 29 OCCLUSION AND STENOSIS OF UNSPECIFIED CA 07/09/2018 DIMPLE NOVOA MD Ot I73. 9 PERIPHERAL VASCULAR DISEASE, UNSPECIFIED 07/09/2018 DIMPLE NOVOA MD, Ot N18. 3 CHRONIC KIDNEY DISEASE, STAGE 3 (MODERAT 07/09/2018 DIMPLE NOVOA MD Ot R07. 9 CHEST PAIN, UNSPECIFIED 07/09/2018 DIMPLE NOVOA MD Ot Z11. 2 ENCOUNTER FOR SCREENING FOR OTHER BACTER 07/09/2018 DIMPLE NOVOA MD Ot Z53. 8 PROCEDURE AND TREATMENT NOT CARRIED OUT 07/09/2018 DIMPLE NOVOA MD Ot Z79. 82 INFORMATION SYSTEMS OPERATOR (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 OF ASPIRIN 07/09/2018 DIMPLE NOVOA MD Ot Z79.899 OTHER INFORMATION SYSTEMS OPERATOR (CURRENT) DRUG THERAPY 07/09/2018 DIMPLE NOVOA MD Ot Z85. 3 PERSONAL HISTORY OF MALIGNANT NEOPLASM O 07/09/2018 DIMPLE NOVOA MD Ot Z95. 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 07/29/2018 SKIP KERN APRN Ot E78.5 HYPERLIPIDEMIA, UNSPECIFIED 07/29/2018 SKIP KERN APRN Ot E87.2 ACIDOSIS 07/29/2018 SKIP KERN APRN Ot E87.3 ALKALOSIS 07/29/2018 SKIP KERN APRN Ot I12.9 HYPERTENSIVE CHRONIC KIDNEY DISEASE W ST 07/29/2018 SKIP KERN APRN Ot I25.10 ATHSCL HEART DISEASE OF [place] CORONARY 07/29/2018 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 Ot K21.9 GASTRO-ESOPHAGEAL REFLUX DISEASE WITHOUT 07/29/2018 SKIP KERN APRN Ot N18.3 CHRONIC KIDNEY DISEASE, STAGE 3 (MODERAT 07/29/2018 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 Ot N25.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 9 TYPE 2 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 WITHOUT COMPLIC 07/29/2018 DIMPLE NOVOA MD Ot E78. 5 HYPERLIPIDEMIA, UNSPECIFIED 07/29/2018 DIMPLE NOVOA MD Ot I12. 9 HYPERTENSIVE CHRONIC KIDNEY DISEASE W ST 07/29/2018 DIMPLE NOVOA MD Ot I25. 10 ATHSCL HEART DISEASE OF [place] CORONARY 07/29/2018 DIMPLE NOVOA MD Ot I48. 0 PAROXYSMAL ATRIAL FIBRILLATION 07/29/2018 DIMPLE NOVOA MD Ot I49. 5 SICK SINUS SYNDROME 07/29/2018 DIMPLE NOVOA MD Ot I65. 29 OCCLUSION AND STENOSIS OF UNSPECIFIED CA 07/29/2018 DIMPLE NOVOA MD Ot I73. 9 PERIPHERAL VASCULAR DISEASE, UNSPECIFIED 07/29/2018 DIMPLE NOVOA MD Ot N18. 3 CHRONIC KIDNEY DISEASE, STAGE 3 (MODERAT 07/29/2018 DIMPLE NOVOA MD Ot R07. 9 CHEST PAIN, UNSPECIFIED 07/29/2018 DIMPLE NOVOA MD Ot Z11. 2 ENCOUNTER FOR SCREENING FOR OTHER BACTER 07/29/2018 DIMPLE NOVOA MD Ot Z53. 8 PROCEDURE AND TREATMENT NOT CARRIED OUT 07/29/2018 DIMPLE NOVOA MD, Ot Z79. 82 INFORMATION SYSTEMS OPERATOR (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 OF ASPIRIN 07/29/2018 DIMPLE NOVOA MD, Ot Z79.899 OTHER PENITENTIARY (CURRENT) DRUG THERAPY 07/29/2018 DIMPLE NOVOA MD Ot Z85. 3 PERSONAL HISTORY OF MALIGNANT NEOPLASM O 07/29/2018 DIMPLE NOVOA MD Ot Z95. 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 10/28/2018 ANTHONY GARZA Yulia Ot E78.5 HYPERLIPIDEMIA, UNSPECIFIED 10/28/2018 GREG ALYCEBJORN Yulia Ot 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 [place]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 10/28/2018 ANTHONY GARZA Yulia Ot I25.10 ATHSCL HEART DISEASE OF [place] CORONARY 10/28/2018 ANTHONY GARZA Yulia Ot I50.9 HEART FAILURE, UNSPECIFIED 10/28/2018 GREG ALYCEBJORN Yulia Ot K21.9 GASTRO-ESOPHAGEAL REFLUX DISEASE WITHOUT 10/28/2018 ANTHONY GARZA Yulia Ot N18.3 CHRONIC KIDNEY DISEASE, STAGE 3 (MODERAT 10/28/2018 ANTHONY GARZA Yulia Ot Z08 ENCNTR FOR FOLLOW-UP EXAM AFTER TRTMT FO 10/28/2018 ANTHONY GARZA Yulia Ot Z79.02 PENITENTIARY (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 OF ANTITHROMBOTI 10/28/2018 GREGALYCEBJORN Yulia Ot 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 10/28/2018 ANTHONY GARZA Yulia Ot Z79.899 OTHER PENITENTIARY (CURRENT) DRUG THERAPY 10/28/2018 ANTHONY GARZA Yulia Ot Z85.3 PERSONAL HISTORY OF MALIGNANT NEOPLASM O 10/28/2018 GREGALYCEBJORN Yulia Ot Z95.5 PRESENCE OF CORONARY ANGIOPLASTY IMPLANT 10/28/2018 MARCELO ROJAS, JOE Sherman Ot L97.5 21 NON-PRS CHRONIC ULCER OTH PRT L FOOT ZIMMERMAN 10/28/2018 DESTINEE VANG MD Ot I25.10 ATHSCL HEART DISEASE OF [place] CORONARY 12/01/2018 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 Ot R26.81 UNSTEADINESS ON FEET 12/01/2018 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 Ot R53.1 WEAKNESS 12/08/2018 JOE ROBERTSON MD Ot L97.5 21 NON-PRS CHRONIC ULCER OTH PRT L FOOT ZIMMERMAN 12/08/2018 CIERA RJOAS, DESTINEE Soliman Ot I25.10 ATHSCL HEART DISEASE OF [place] CORONARY 12/08/2018 MARCELO ROJAS, JOE Sherman Ot E04.1 NONTOXIC SINGLE THYROID NODULE 12/08/2018 GREGANTHONY Ot E04.1 NONTOXIC SINGLE THYROID NODULE 12/08/2018 GREG ALYCEBJORN Yulia Ot 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 12/08/2018 GREGANTHONY Ot E11.43 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 12/08/2018 GREGANTHONY Ot E78.5 HYPERLIPIDEMIA, UNSPECIFIED 12/08/2018 GREGALYCEBJORN Yulia Ot 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 [place]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 12/08/2018 GREGANTHONY Ot I25.10 ATHSCL HEART DISEASE OF [place] CORONARY 12/08/2018 GREGALYCEBJORN Yulia Ot I50.9 HEART FAILURE, UNSPECIFIED 12/08/2018 GREGALYCEBJORN Yulia Ot K21.9 GASTRO-ESOPHAGEAL REFLUX DISEASE WITHOUT 12/08/2018 GREGANTHONY Ot N18.3 CHRONIC KIDNEY DISEASE, STAGE 3 (MODERAT 12/08/2018 GREGALYCEBJORN Yulia Ot Z08 ENCNTR FOR FOLLOW-UP EXAM AFTER TRTMT FO 12/08/2018 ANTHONY GARZA Ot Z79.02 INFORMATION SYSTEMS OPERATOR (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 OF ANTITHROMBOTI 12/08/2018 GREGANTHONY Ot 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 12/08/2018 GREGALYCEBJORN Yulia Ot Z79.899 OTHER INFORMATION SYSTEMS OPERATOR (CURRENT) DRUG THERAPY 12/08/2018 ANTHONY GARZA Ot Z85.3 PERSONAL HISTORY OF MALIGNANT NEOPLASM O 12/08/2018 ANTHONY GARZA Ot Z95.5 PRESENCE OF CORONARY ANGIOPLASTY IMPLANT 12/08/2018 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 Ot R26.81 UNSTEADINESS ON FEET 12/08/2018 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 Ot R53.1 WEAKNESS 12/09/2018 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 Ot R26.81 UNSTEADINESS ON FEET 12/09/2018 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 Ot R53.1 WEAKNESS 12/10/2018 MARCELO ROJAS, JOE Sherman Ot R30.9 PAINFUL MICTURITION, UNSPECIFIED 12/17/2018 SKIP KERN APRN Ot R26.81 UNSTEADINESS ON FEET 12/17/2018 SKIP KERN APRN Ot R53.1 WEAKNESS 12/23/2018 JOE ROBERTSON MD Ot L97.5 21 NON-PRS CHRONIC ULCER OTH PRT L FOOT ZIMMERMAN 12/23/2018 CIERA ROJAS, DESTINEE Soliman Ot I25.10 ATHSCL HEART DISEASE OF [place] CORONARY 12/23/2018 JOE ROBERTSON MD Ot R30.9 PAINFUL MICTURITION, UNSPECIFIED 12/27/2018 JOE ROBERTSON MD Ot L97.5 21 NON-PRS CHRONIC ULCER OTH PRT L FOOT ZIMMERMAN 12/27/2018 CIERA ROJAS, DESTINEE Soliman Ot I25.10 ATHSCL HEART DISEASE OF [place] CORONARY 12/27/2018 JOE ROBERTSON MD Ot E04.1 NONTOXIC SINGLE THYROID NODULE 12/27/2018 ANTHONY GARZA Ot E04.1 NONTOXIC SINGLE THYROID NODULE 12/27/2018 ANTHONY GARZA Ot 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 12/27/2018 ANTHONY GARZA Ot E11.43 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 12/27/2018 ANTHONY GARZA Ot E78.5 HYPERLIPIDEMIA, UNSPECIFIED 12/27/2018 ANTHONY GARZA Ot 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 [place]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 12/27/2018 ANTHONY GARZA Ot I25.10 ATHSCL HEART DISEASE OF [place] CORONARY 12/27/2018 ANTHONY GARZA Ot I50.9 HEART FAILURE, UNSPECIFIED 12/27/2018 ANTHONY GARZA Ot K21.9 GASTRO-ESOPHAGEAL REFLUX DISEASE WITHOUT 12/27/2018 ANTHONY GARZA Ot N18.3 CHRONIC KIDNEY DISEASE, STAGE 3 (MODERAT 12/27/2018 ANTHONY GARZA Ot Z08 ENCNTR FOR FOLLOW-UP EXAM AFTER TRTMT FO 12/27/2018 ANTHONY GARZA Ot Z79.02 PENITENTIARY (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 OF ANTITHROMBOTI 12/27/2018 ANTHONY GARZA Ot Z79.4 PENITENTIARY (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 12/27/2018 ANTHONY GARZA Ot Z79.899 OTHER PENITENTIARY (CURRENT) DRUG THERAPY 12/27/2018 ANTHONY GARZA Ot Z85.3 PERSONAL HISTORY OF MALIGNANT NEOPLASM O 12/27/2018 ANTHONY GARZA Ot Z95.5 PRESENCE OF CORONARY ANGIOPLASTY IMPLANT 12/27/2018 MARCELO ROJAS, JOE Sherman Ot R30.9 PAINFUL MICTURITION, UNSPECIFIED 12/28/2018 JOE ROBERTSON MD Ot R30.9 PAINFUL MICTURITION, UNSPECIFIED 12/29/2018 NENA ROJAS, AMADEO Sherman Ot Z01.818 ENCOUNTER FOR OTHER PREPROCEDURAL EXAMIN 12/31/2018 JOE ROBERTSON MD Ot L97.5 21 NON-PRS CHRONIC ULCER OTH PRT L FOOT ZIMMERMAN 12/31/2018 CIERA ROJAS, DESTINEE Soliman Ot I25.10 ATHSCL HEART DISEASE OF [place] CORONARY 12/31/2018 JOE ROBERTSON MD Ot E04.1 NONTOXIC SINGLE THYROID NODULE 12/31/2018 ANTHONY GARZA Ot E04.1 NONTOXIC SINGLE THYROID NODULE 12/31/2018 ANTHONY GARZA Ot 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 12/31/2018 ANTHONY GARZA Ot E11.43 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 12/31/2018 ANTHONY GARZA Ot E78.5 HYPERLIPIDEMIA, UNSPECIFIED 12/31/2018 ANTHONY GARZA Ot 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 [place]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 12/31/2018 ANTHONY GARZA Ot I25.10 ATHSCL HEART DISEASE OF [place] CORONARY 12/31/2018 ANTHONY GARZA Ot I50.9 HEART FAILURE, UNSPECIFIED 12/31/2018 ANTHONY GARZA Ot K21.9 GASTRO-ESOPHAGEAL REFLUX DISEASE WITHOUT 12/31/2018 ANTHONY GARZA Ot N18.3 CHRONIC KIDNEY DISEASE, STAGE 3 (MODERAT 12/31/2018 ANTHONY GARZA Ot Z08 ENCNTR FOR FOLLOW-UP EXAM AFTER TRTMT FO 12/31/2018 ANTHONY GARZA Ot Z79.02 INFORMATION SYSTEMS OPERATOR (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 OF ANTITHROMBOTI 12/31/2018 ANTHONY GARZA Ot 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 12/31/2018 ANTHNOY GARZA Ot Z79.899 OTHER INFORMATION SYSTEMS OPERATOR (CURRENT) DRUG THERAPY 12/31/2018 ALYCE GARZAAN N Ot Z85.3 PERSONAL HISTORY OF MALIGNANT NEOPLASM O 12/31/2018 ANTHONY GARZA Ot Z95.5 PRESENCE OF CORONARY ANGIOPLASTY IMPLANT 12/31/2018 JOE ROBERTSON MD Ot R30.9 PAINFUL MICTURITION, UNSPECIFIED 12/31/2018 DIMPLE NOVOA MD Ot E78. 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 10 ATHSCL HEART DISEASE OF [place] CORONARY 12/31/2018 DIMPLE NOVOA MD Ot I49. 5 SICK SINUS SYNDROME 12/31/2018 AMADEO BARRETT MD, Ot Z01.818 ENCOUNTER FOR OTHER PREPROCEDURAL EXAMIN 12/31/2018 AMADEO BARRETT MD Ot E11. 22 TYPE 2 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 WADER BOOT 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 12/31/2018 AMADEO BARRETT MD Ot E11. 51 TYPE 2 DIABETES W DIABETIC PERIPHERAL AN 12/31/2018 AMADEO BARRETT MD Ot E66. 9 OBESITY, UNSPECIFIED 12/31/2018 AMADEO BARRETT MD, Ot I12. 9 HYPERTENSIVE CHRONIC KIDNEY DISEASE W ST 12/31/2018 AMADEO BARRETT MD, Ot I25. 10 ATHSCL HEART DISEASE OF [place] CORONARY 12/31/2018 AMADEO BARRETT MD Ot I73. 9 PERIPHERAL VASCULAR DISEASE, UNSPECIFIED 12/31/2018 AMADEO BARRETT MD Ot K44. 9 DIAPHRAGMATIC HERNIA WITHOUT OBSTRUCTION 12/31/2018 AMADEO BARRETT MD, Ot N18. 9 CHRONIC KIDNEY DISEASE, UNSPECIFIED 12/31/2018 AMADEO BARRETT MD Ot R13. 10 DYSPHAGIA, UNSPECIFIED 12/31/2018 AMADEO BARRETT MD Ot Z68. 33 BODY MASS INDEX (BMI) 33.0-33.9, ADULT 12/31/2018 AMADEO BARRETT MD Ot Z79. 02 INFORMATION SYSTEMS OPERATOR (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 OF ANTITHROMBOTI 12/31/2018 AMADEO BARRETT MD Ot Z79. 4 INFORMATION SYSTEMS OPERATOR (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 12/31/2018 AMADEO BARRETT MD Ot Z79. 82 INFORMATION SYSTEMS OPERATOR (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 OF ASPIRIN 12/31/2018 AMADEO BARRETT MD Ot Z79.899 OTHER INFORMATION SYSTEMS OPERATOR (CURRENT) DRUG THERAPY 12/31/2018 AMADEO BARRETT MD Ot Z95. 0 PRESENCE OF CARDIAC PACEMAKER 12/31/2018 AMADEO BARRETT MD Ot Z95.820 PERIPHERAL VASCULAR ANGIOPLASTY STATUS W 01/02/2019 DIMPLE NOVOA MD Ot E78. 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 10 ATHSCL HEART DISEASE OF [place] CORONARY 01/02/2019 DIMPLE NOVOA MD Ot I49. 5 SICK SINUS SYNDROME 01/05/2019 AMADEO BARRETT MD Ot E11. 22 TYPE 2 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 WADER BOOT 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 01/05/2019 AMADEO BARRETT MD Ot E11. 51 TYPE 2 DIABETES W DIABETIC PERIPHERAL AN 01/05/2019 AMADEO BARRETT MD Ot E66. 9 OBESITY, UNSPECIFIED 01/05/2019 AMADEO BARRETT MD Ot I12. 9 HYPERTENSIVE CHRONIC KIDNEY DISEASE W ST 01/05/2019 AMADEO BARRETT MD Ot I25. 10 ATHSCL HEART DISEASE OF [place] CORONARY 01/05/2019 AMADEO BARRETT MD Ot I73. 9 PERIPHERAL VASCULAR DISEASE, UNSPECIFIED 01/05/2019 AMADEO BARRETT MD Ot K44. 9 DIAPHRAGMATIC HERNIA WITHOUT OBSTRUCTION 01/05/2019 AMADEO BARRETT MD Ot N18. 9 CHRONIC KIDNEY DISEASE, UNSPECIFIED 01/05/2019 AMADEO BARRETT MD Ot R13. 10 DYSPHAGIA, UNSPECIFIED 01/05/2019 AMADEO BARRETT MD Ot Z68. 33 BODY MASS INDEX (BMI) 33.0-33.9, ADULT 01/05/2019 AMADEO BARRETT MD Ot Z79. 02 INFORMATION SYSTEMS OPERATOR (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 OF ANTITHROMBOTI 01/05/2019 AMADEO BARRETT MD Ot Z79. 4 INFORMATION SYSTEMS OPERATOR (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 01/05/2019 AMADEO BARRETT MD Ot Z79. 82 PENITENTIARY (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 OF ASPIRIN 01/05/2019 AMADEO BARRETT MD, Ot Z79.899 OTHER INFORMATION SYSTEMS OPERATOR (CURRENT) DRUG THERAPY 01/05/2019 NEAN ROJAS, AMADEO Sherman Ot Z95. 0 PRESENCE OF CARDIAC PACEMAKER 01/05/2019 NENA ROJAS, AMADEO Sherman Ot Z95.820 PERIPHERAL VASCULAR ANGIOPLASTY STATUS W 01/19/2019 DIMPLE NOVOA MD Ot E78. 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 10 ATHSCL HEART DISEASE OF [place] CORONARY 01/19/2019 DIMPLE NOVOA MD, Ot I49. 5 SICK SINUS SYNDROME 02/05/2019 ANALIA WARD MD, Ot A08. 4 VIRAL INTESTINAL INFECTION, UNSPECIFIED 02/05/2019 ANALIA WARD MD Ot E11. 21 TYPE 2 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 WITH DIABETIC N 02/05/2019 ANALIA WARD MD Ot E11. 40 TYPE 2 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 WITH DIABETIC N 02/05/2019 ANALIA WARD MD Ot E11. 51 TYPE 2 DIABETES W DIABETIC PERIPHERAL AN 02/05/2019 ANALIA WARD MD, Ot E78. 00 PURE HYPERCHOLESTEROLEMIA, UNSPECIFIED 02/05/2019 ANALIA WARD MD Ot E86. 0 DEHYDRATION 02/05/2019 ANALIA WARD MD, Ot E87. 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 9 HYPERTENSIVE CHRONIC KIDNEY DISEASE W ST 02/05/2019 ANALIA WARD MD, Ot I21. A1 MYOCARDIAL INFARCTION TYPE 2 02/05/2019 ANALIA WARD MD, Ot I25. 10 ATHSCL HEART DISEASE OF [place] CORONARY 02/05/2019 ANALIA WARD MD, Ot I25. 2 OLD MYOCARDIAL INFARCTION 02/05/2019 ANALIA WARD MD Ot I48. 91 UNSPECIFIED ATRIAL FIBRILLATION 02/05/2019 ANALIA WARD MD, Ot I49. 5 SICK SINUS SYNDROME 02/05/2019 ANALIA WARD MD, Ot N17. 9 ACUTE KIDNEY FAILURE, UNSPECIFIED 02/05/2019 ANALIA WARD MD, Ot N18. 4 CHRONIC KIDNEY DISEASE, STAGE 4 (SEVERE) 02/05/2019 ANALIA WARD MD, Ot T82.855A STENOSIS OF CORONARY ARTERY STENT, INITI 02/05/2019 ANALIA WARD MD, Ot Z79. 02 PENITENTIARY (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 OF ANTITHROMBOTI 02/05/2019 ANALIA WADR MD, Ot Z79. 4 INFORMATION SYSTEMS OPERATOR (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 02/05/2019 ANALIA WARD MD, Ot Z85. 3 PERSONAL HISTORY OF MALIGNANT NEOPLASM O 02/05/2019 ANALIA WARD MD, Ot Z86. 73 PRSNL HX OF TIA (TIA), AND CEREB INFRC W 02/05/2019 ANALIA WARD MD, Ot Z87.440 PERSONAL HISTORY OF URINARY (TRACT) INFE 02/05/2019 ANALIA WARD MD Ot Z88. 0 ALLERGY STATUS TO PENICILLIN 02/05/2019 ANALIA WARD MD Ot Z88. 2 ALLERGY STATUS TO SULFONAMIDES STATUS 02/05/2019 ANALIA WARD MD Ot Z88. 5 ALLERGY STATUS TO NARCOTIC AGENT STATUS 02/05/2019 ANALIA WARD MD Ot Z88. 6 ALLERGY STATUS TO ANALGESIC AGENT STATUS 02/05/2019 ANALIA WARD MD Ot Z92. 3 PERSONAL HISTORY OF IRRADIATION 02/05/2019 ANALIA WARD MD Ot Z95. 0 PRESENCE OF CARDIAC PACEMAKER 02/05/2019 ANALIA WARD MD Ot Z95. 5 PRESENCE OF CORONARY ANGIOPLASTY IMPLANT 02/25/2019 JOE ROBERTSON MD Ot R05 COUGH 02/25/2019 JOE ROBERTSON MD Ot Z95.0 PRESENCE OF CARDIAC PACEMAKER 03/03/2019 ANALIA WARD MD Ot A41. 9 SEPSIS, UNSPECIFIED ORGANISM 03/03/2019 ANALIA WARD MD Ot E11. 39 TYPE 2 DIABETES W OTH DIABETIC OPHTHALMI 03/03/2019 ANALIA WARD MD Ot E11. 40 TYPE 2 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 WITH DIABETIC N 03/03/2019 ANALIA WARD MD Ot E11. 51 TYPE 2 DIABETES W DIABETIC PERIPHERAL AN 03/03/2019 ANALIA WARD MD Ot E78. 00 PURE HYPERCHOLESTEROLEMIA, UNSPECIFIED 03/03/2019 ANALIA WARD MD, Ot E86. 0 DEHYDRATION 03/03/2019 ANALIA WARD MD, Ot G47. 30 SLEEP APNEA, UNSPECIFIED 03/03/2019 ANALIA WARD MD, Ot G60. 0 HEREDITARY MOTOR AND SENSORY NEUROPATHY 03/03/2019 ANALIA WARD MD, Ot H35. 62 RETINAL HEMORRHAGE, LEFT EYE 03/03/2019 ANALIA WARD MD, Ot I11. 0 HYPERTENSIVE HEART DISEASE WITH HEART FA 03/03/2019 ANALIA WARD MD, Ot I21. 4 NON-ST ELEVATION (NSTEMI) MYOCARDIAL INF 03/03/2019 ANALIA WARD MD, Ot I25. 10 ATHSCL HEART DISEASE OF [place] CORONARY 03/03/2019 ANALIA WARD MD, Ot I25. 2 OLD MYOCARDIAL INFARCTION 03/03/2019 ANALIA WARD MD, Ot I48. 91 UNSPECIFIED ATRIAL FIBRILLATION 03/03/2019 ANALIA WARD MD, Ot I50. 9 HEART FAILURE, UNSPECIFIED 03/03/2019 ANALIA WARD MD, Ot K52. 9 NONINFECTIVE GASTROENTERITIS AND COLITIS 03/03/2019 ANALIA WARD MD, Ot K58. 9 IRRITABLE BOWEL SYNDROME WITHOUT DIARRHE 03/03/2019 ANALIA WARD MD, Ot N17. 9 ACUTE KIDNEY FAILURE, UNSPECIFIED 03/03/2019 ANALIA WARD MD, Ot N30. 00 ACUTE CYSTITIS WITHOUT HEMATURIA 03/03/2019 ANALIA WARD MD, Ot R01. 1 CARDIAC MURMUR, UNSPECIFIED 03/03/2019 ANALIA WARD MD Ot R65. 20 SEVERE SEPSIS WITHOUT SEPTIC SHOCK 03/03/2019 ANALIA WARD MD Ot Z79. 01 INFORMATION SYSTEMS OPERATOR (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 OF ANTICOAGULANT 03/03/2019 ANALIA WARD MD Ot Z79. 4 PENITENTIARY (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 03/03/2019 ANALIA WARD MD Ot Z85. 3 PERSONAL HISTORY OF MALIGNANT NEOPLASM O 03/03/2019 ANALIA WARD MD Ot Z86. 73 PRSNL HX OF TIA (TIA), AND CEREB INFRC W 03/03/2019 ANALIA WARD MD, Ot Z92. 3 PERSONAL HISTORY OF IRRADIATION 03/03/2019 ANALIA WARD MD Ot Z95. 0 PRESENCE OF CARDIAC PACEMAKER 03/03/2019 ANALIA WARD MD Ot Z95. 5 PRESENCE OF CORONARY ANGIOPLASTY IMPLANT 03/03/2019 ANALIA WARD MD Ot A41. 9 SEPSIS, UNSPECIFIED ORGANISM 03/03/2019 ANALIA WARD MD Ot E11. 39 TYPE 2 DIABETES W OTH DIABETIC OPHTHALMI 03/03/2019 ANALIA WARD MD, Ot E11. 40 TYPE 2 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 WITH DIABETIC N 03/03/2019 ANALIA WARD MD, Ot E11. 51 TYPE 2 DIABETES W DIABETIC PERIPHERAL AN 03/03/2019 ANALIA WARD MD Ot E78. 00 PURE HYPERCHOLESTEROLEMIA, UNSPECIFIED 03/03/2019 ANALIA WARD MD Ot E86. 0 DEHYDRATION 03/03/2019 ANALIA WARD MD Ot G47. 30 SLEEP APNEA, UNSPECIFIED 03/03/2019 ANALIA WARD MD, Ot G60. 0 HEREDITARY MOTOR AND SENSORY NEUROPATHY 03/03/2019 ANALIA WARD MD, Ot H35. 62 RETINAL HEMORRHAGE, LEFT EYE 03/03/2019 ANALIA WARD MD Ot I11. 0 HYPERTENSIVE HEART DISEASE WITH HEART FA 03/03/2019 ANALIA WARD MD Ot I21. 4 NON-ST ELEVATION (NSTEMI) MYOCARDIAL INF 03/03/2019 ANALIA WARD MD, Ot I25. 10 ATHSCL HEART DISEASE OF [place] CORONARY 03/03/2019 ANALIA WARD MD, Ot I25. 2 OLD MYOCARDIAL INFARCTION 03/03/2019 ANALIA WARD MD Ot I48. 91 UNSPECIFIED ATRIAL FIBRILLATION 03/03/2019 ANALIA WARD MD, Ot I50. 9 HEART FAILURE, UNSPECIFIED 03/03/2019 ANALIA WARD MD, Ot K52. 9 NONINFECTIVE GASTROENTERITIS AND COLITIS 03/03/2019 ANALIA WARD MD, Ot K58. 9 IRRITABLE BOWEL SYNDROME WITHOUT DIARRHE 03/03/2019 ANALIA WARD MD Ot N17. 9 ACUTE KIDNEY FAILURE, UNSPECIFIED 03/03/2019 ANALIA WARD MD Ot N30. 00 ACUTE CYSTITIS WITHOUT HEMATURIA 03/03/2019 ANALIA WARD MD, Ot R01. 1 CARDIAC MURMUR, UNSPECIFIED 03/03/2019 ANALIA WARD MD, Ot R65. 20 SEVERE SEPSIS WITHOUT SEPTIC SHOCK 03/03/2019 ANALIA WARD MD, Ot Z79. 01 PENITENTIARY (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 OF ANTICOAGULANT 03/03/2019 ANALIA WARD MD, Ot Z79. 4 PENITENTIARY (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 03/03/2019 ANALIA WARD MD, Ot Z85. 3 PERSONAL HISTORY OF MALIGNANT NEOPLASM O 03/03/2019 ANALIA WARD MD, Ot Z86. 73 PRSNL HX OF TIA (TIA), AND CEREB INFRC W 03/03/2019 ANALIA WARD MD, Ot Z92. 3 PERSONAL HISTORY OF IRRADIATION 03/03/2019 ANALIA WARD MD, Ot Z95. 0 PRESENCE OF CARDIAC PACEMAKER 03/03/2019 ANALIA WARD MD Ot Z95. 5 PRESENCE OF CORONARY ANGIOPLASTY IMPLANT 03/04/2019 ANALIA WARD MD Ot A41. 59 OTHER GRAM-NEGATIVE SEPSIS 03/04/2019 ANALIA WARD MD, Ot E11. 39 TYPE 2 DIABETES W OTH DIABETIC OPHTHALMI 03/04/2019 ANALIA WARD MD, Ot E11. 40 TYPE 2 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 WITH DIABETIC N 03/04/2019 ANALIA WARD MD Ot E11. 51 TYPE 2 DIABETES W DIABETIC PERIPHERAL AN 03/04/2019 ANALIA WARD MD, Ot E78. 00 PURE HYPERCHOLESTEROLEMIA, UNSPECIFIED 03/04/2019 ANALIA WARD MD Ot E86. 0 DEHYDRATION 03/04/2019 ANALIA WARD MD, Ot G47. 30 SLEEP APNEA, UNSPECIFIED 03/04/2019 ANALIA WARD MD, Ot G60. 0 HEREDITARY MOTOR AND SENSORY NEUROPATHY 03/04/2019 ANALIA WARD MD, Ot H35. 62 RETINAL HEMORRHAGE, LEFT EYE 03/04/2019 ANALIA WARD MD, Ot H91. 92 UNSPECIFIED HEARING LOSS, LEFT EAR 03/04/2019 ANALIA WARD MD, Ot I13. 0 HYP HRT CHR [place]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 03/04/2019 ANALIA WARD MD, Ot I21. 4 NON-ST ELEVATION (NSTEMI) MYOCARDIAL INF 03/04/2019 ANALIA WARD MD, Ot I25. 10 ATHSCL HEART DISEASE OF [place] CORONARY 03/04/2019 ANALIA WARD MD, Ot I25. 2 OLD MYOCARDIAL INFARCTION 03/04/2019 ANALIA WARD MD, Ot I35. 0 NONRHEUMATIC [place]ORTIC (VALVE) STENOSIS 03/04/2019 ANALIA WARD MD, Ot I48. 91 UNSPECIFIED ATRIAL FIBRILLATION 03/04/2019 ANALIA WARD MD, Ot I50. 9 HEART FAILURE, UNSPECIFIED 03/04/2019 ANALIA WARD MD, Ot K52. 9 NONINFECTIVE GASTROENTERITIS AND COLITIS 03/04/2019 ANALIA WARD MD, Ot N17. 9 ACUTE KIDNEY FAILURE, UNSPECIFIED 03/04/2019 ANALIA WARD MD, Ot N18. 4 CHRONIC KIDNEY DISEASE, STAGE 4 (SEVERE) 03/04/2019 ANALIA WARD MD, Ot N30. 00 ACUTE CYSTITIS WITHOUT HEMATURIA 03/04/2019 ANALIA WARD MD, Ot R01. 1 CARDIAC MURMUR, UNSPECIFIED 03/04/2019 ANALIA WARD MD, Ot R65. 21 SEVERE SEPSIS WITH SEPTIC SHOCK 03/04/2019 ANALIA WARD MD, Ot Z79. 01 PENITENTIARY (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 OF ANTICOAGULANT 03/04/2019 ANALIA WARD MD, Ot Z79. 4 INFORMATION SYSTEMS OPERATOR (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 03/04/2019 ANALIA WARD MD, Ot Z85. 3 PERSONAL HISTORY OF MALIGNANT NEOPLASM O 03/04/2019 ANALIA WARD MD Ot Z86. 73 PRSNL HX OF TIA (TIA), AND CEREB INFRC W 03/04/2019 ANALIA WARD MD Ot Z95. 0 PRESENCE OF CARDIAC PACEMAKER 03/04/2019 ANALIA WARD MD Ot Z95. 5 PRESENCE OF CORONARY ANGIOPLASTY IMPLANT 03/11/2019 JOE ROBERTSON MD Ot L97.5 21 NON-PRS CHRONIC ULCER OTH PRT L FOOT ZIMMERMAN 03/11/2019 DESTINEE VANG MD Ot I25.10 ATHSCL HEART DISEASE OF [place] CORONARY 03/11/2019 JOE ROBERTSON MD Ot R30.9 PAINFUL MICTURITION, UNSPECIFIED 03/11/2019 DIMPLE NOVOA MD Ot E78. 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 10 ATHSCL HEART DISEASE OF [place] CORONARY 03/11/2019 DIMPLE NOVOA MD Ot I49. 5 SICK SINUS SYNDROME 03/11/2019 AMADEO BARRETT MD Ot Z01.818 ENCOUNTER FOR OTHER PREPROCEDURAL EXAMIN 03/11/2019 JOE ROBERTSON MD Ot R05 COUGH 03/11/2019 JOE ROBERTSON MD Ot Z95.0 PRESENCE OF CARDIAC PACEMAKER 03/11/2019 LOGAN BOLIVAR CUSTOMER MANAGER Ot E86.0 DEHYDRATION 03/15/2019 LOGAN BOLIVAR CUSTOMER MANAGER Ot E86.0 DEHYDRATION 03/17/2019 ANTHONY GARZA Ot Z12.31 ENCNTR SCREEN MAMMOGRAM FOR MALIGNANT NE 03/18/2019 JOE ROBERTSON MD Ot R05 COUGH 03/18/2019 JOE ROBERTSON MD Ot Z95.0 PRESENCE OF CARDIAC PACEMAKER 04/06/2019 CRIS WALDEN MD Ot E11. 40 TYPE 2 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 WITH DIABETIC N 04/06/2019 CRIS WALDEN MD Ot 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 04/06/2019 CRIS WALDEN MD Ot E78. 5 HYPERLIPIDEMIA, UNSPECIFIED 04/06/2019 CRIS WALDEN MD Ot E87. 2 ACIDOSIS 04/06/2019 CRIS WALDEN MD, Ot G47. 30 SLEEP APNEA, UNSPECIFIED 04/06/2019 CRIS WALDEN MD Ot H54. 62 UNQUALIFIED VISUAL LOSS, LEFT EYE, MYRNA 04/06/2019 CRIS WALDEN MD, Ot H91. 3 DEAF NONSPEAKING, NOT ELSEWHERE CLASSIFI 04/06/2019 CRIS WALDEN MD Ot I13. 0 HYP HRT CHR [place]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 04/06/2019 CRIS WALDEN MD, Ot I21. 4 NON-ST ELEVATION (NSTEMI) MYOCARDIAL INF 04/06/2019 CRIS WALDEN MD, Ot I25. 10 ATHSCL HEART DISEASE OF [place] CORONARY 04/06/2019 CRIS WALDEN MD, Ot I25. 2 OLD MYOCARDIAL INFARCTION 04/06/2019 CRIS WALDEN MD, Ot I27. 20 PULMONARY HYPERTENSION, UNSPECIFIED 04/06/2019 CRIS WALDEN MD, Ot I35. 0 NONRHEUMATIC AORTIC (VALVE) STENOSIS 04/06/2019 CRIS WALDEN MD, Ot I48. 0 PAROXYSMAL ATRIAL FIBRILLATION 04/06/2019 CRIS WALDEN MD, Ot I48. 92 UNSPECIFIED ATRIAL FLUTTER 04/06/2019 CRIS WALDEN MD, Ot I49. 5 SICK SINUS SYNDROME 04/06/2019 CRIS WALDEN MD, Ot I50. 9 HEART FAILURE, UNSPECIFIED 04/06/2019 CRIS WALDEN MD, Ot I73. 9 PERIPHERAL VASCULAR DISEASE, UNSPECIFIED 04/06/2019 CRIS WALDEN MD, Ot K58. 9 IRRITABLE BOWEL SYNDROME WITHOUT DIARRHE 04/06/2019 CIRS WALDEN MD, Ot M10. 9 GOUT, UNSPECIFIED 04/06/2019 CRIS WALDEN MD, Ot N17. 9 ACUTE KIDNEY FAILURE, UNSPECIFIED 04/06/2019 CRIS WALDEN MD, Ot N18. 4 CHRONIC KIDNEY DISEASE, STAGE 4 (SEVERE) 04/06/2019 CRIS WALDEN MD Ot R57. 8 OTHER SHOCK 04/06/2019 CRIS WALDEN MD, Ot T82.855A STENOSIS OF CORONARY ARTERY STENT, INITI 04/06/2019 CRIS WALDEN MD Ot Z79. 4 INFORMATION SYSTEMS OPERATOR (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 04/06/2019 CRIS WALDEN MD Ot Z85. 3 PERSONAL HISTORY OF MALIGNANT NEOPLASM O 04/06/2019 CRIS WALDEN MD Ot Z90.710 ACQUIRED ABSENCE OF BOTH CERVIX AND UTER 04/06/2019 CRIS WALDEN MD Ot Z90.722 ACQUIRED ABSENCE OF OVARIES, BILATERAL 04/06/2019 CRIS WALDEN MD Ot Z95. 0 PRESENCE OF CARDIAC PACEMAKER 04/06/2019 CRIS WALDEN MD Ot Z95. 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 04/07/2019 ANTHONY GARZA Ot E11.43 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 04/07/2019 ANTHONY GARZA Ot E78.5 HYPERLIPIDEMIA, UNSPECIFIED 04/07/2019 ANTHONY GARZA Ot 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 [place]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 04/07/2019 ANTHONY GARZA Ot I25.10 ATHSCL HEART DISEASE OF [place] CORONARY 04/07/2019 ANTHONY GARZA Ot K21.9 GASTRO-ESOPHAGEAL REFLUX DISEASE WITHOUT 04/07/2019 ANTHONY GARZA Ot N18.3 CHRONIC KIDNEY DISEASE, STAGE 3 (MODERAT 04/07/2019 ANTHONY GARZA Ot Z08 ENCNTR FOR FOLLOW-UP EXAM AFTER TRTMT FO 04/07/2019 ANTHONY GARZA Ot Z79.02 PENITENTIARY (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 OF ANTITHROMBOTI 04/07/2019 ANTHONY GARZA Ot 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 04/07/2019 ANTHONY GARZA Ot Z79.899 OTHER PENITENTIARY (CURRENT) DRUG THERAPY 04/07/2019 ANTHONY GARZA Ot Z85.3 PERSONAL HISTORY OF MALIGNANT NEOPLASM O 04/07/2019 ANTHONY GARZA Ot Z95.5 PRESENCE OF CORONARY ANGIOPLASTY IMPLANT 05/03/2019 MARCELO ROJAS, JOE Sherman Ot L97.5 21 NON-PRS CHRONIC ULCER OTH PRT L FOOT ZIMMERMAN 05/03/2019 CIERA ROJAS, DESTINEE Soliman Ot I25.10 ATHSCL HEART DISEASE OF [place] CORONARY 05/03/2019 MARCELO ROJAS, JOE Sherman Ot E04.1 NONTOXIC SINGLE THYROID NODULE 05/03/2019 ANTHONY GARZA Ot E04.1 NONTOXIC SINGLE THYROID NODULE 05/03/2019 ANTHONY GARZA Ot 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 05/03/2019 ANTHONY GARZA Ot E11.43 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 05/03/2019 ANTHONY GARZA Ot E78.5 HYPERLIPIDEMIA, UNSPECIFIED 05/03/2019 ANTHONY GARZA Ot 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 [place]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 05/03/2019 ANTHONY GARZA Ot I25.10 ATHSCL HEART DISEASE OF [place] CORONARY 05/03/2019 ANTHONY GARZA Ot I50.9 HEART FAILURE, UNSPECIFIED 05/03/2019 ANTHONY GARZA Ot K21.9 GASTRO-ESOPHAGEAL REFLUX DISEASE WITHOUT 05/03/2019 ANTHONY GARZA Ot N18.3 CHRONIC KIDNEY DISEASE, STAGE 3 (MODERAT 05/03/2019 ANTHONY GARZA Ot Z08 ENCNTR FOR FOLLOW-UP EXAM AFTER TRTMT FO 05/03/2019 ANTHONY GARZA Ot Z79.02 PENITENTIARY (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 OF ANTITHROMBOTI 05/03/2019 ANTHONY GARZA Ot Z79.4 PENITENTIARY (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 05/03/2019 ANTHONY GARZA Ot Z79.899 OTHER INFORMATION SYSTEMS OPERATOR (CURRENT) DRUG THERAPY 05/03/2019 ANTHONY GARZA Ot Z85.3 PERSONAL HISTORY OF MALIGNANT NEOPLASM O 05/03/2019 ANTHONY GARZA Ot Z95.5 PRESENCE OF CORONARY ANGIOPLASTY IMPLANT 05/03/2019 MARCELO ROJAS, JOE Sherman Ot R30.9 PAINFUL MICTURITION, UNSPECIFIED 05/03/2019 DIMPLE NOVOA MD Ot E78. 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 10 ATHSCL HEART DISEASE OF [place] CORONARY 05/03/2019 DIMPLE NOVOA MD Ot I49. 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 05/03/2019 ANTHONY GARZA Ot E11.43 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 05/03/2019 ANTHONY GARZA Ot E78.5 HYPERLIPIDEMIA, UNSPECIFIED 05/03/2019 ANTHONY GARZA Ot 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 [place]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 05/03/2019 ANTHONY GARZA Ot I25.10 ATHSCL HEART DISEASE OF [place] CORONARY 05/03/2019 ANTHONY GARZA Ot K21.9 GASTRO-ESOPHAGEAL REFLUX DISEASE WITHOUT 05/03/2019 ANTHONY GARZA Ot N18.3 CHRONIC KIDNEY DISEASE, STAGE 3 (MODERAT 05/03/2019 ANTHONY GARZA Ot Z08 ENCNTR FOR FOLLOW-UP EXAM AFTER TRTMT FO 05/03/2019 ANTHONY GARZA Ot Z79.02 INFORMATION SYSTEMS OPERATOR (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 OF ANTITHROMBOTI 05/03/2019 ANTHONY GARZA Yulia Ot 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 05/03/2019 ANTHONY GARZA Ot Z79.899 OTHER INFORMATION SYSTEMS OPERATOR (CURRENT) DRUG THERAPY 05/03/2019 ANTHONY GARZA Ot Z85.3 PERSONAL HISTORY OF MALIGNANT NEOPLASM O 05/03/2019 ANTHONY GARZA Ot Z95.5 PRESENCE OF CORONARY ANGIOPLASTY IMPLANT 05/03/2019 ANTHONY GARZA Ot Z12.31 ENCNTR SCREEN MAMMOGRAM FOR MALIGNANT NE 05/04/2019 Ot R19.7 DIAR KRIS, UNSPECIFIED 05/04/2019 ANTHONY GARZA Ot Z12.31 ENCNTR SCREEN MAMMOGRAM FOR MALIGNANT NE 05/05/2019 ANGEL MCDOWELL MD Ot D64 .9 ANEMIA, UNSPECIFIED 05/05/2019 ANGEL MCDOWELL MD Ot E04 .2 NONTOXIC MULTINODULAR GOITER 05/05/2019 ANGEL MCDOWELL MD Ot E11.40 TYPE 2 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 WITH DIABETIC N 05/05/2019 ANGEL MCDOWELL MD Ot E11.51 TYPE 2 DIABETES W DIABETIC PERIPHERAL AN 05/05/2019 ANGEL MCDOWELL MD, Ot E78.00 PURE HYPERCHOLESTEROLEMIA, UNSPECIFIED 05/05/2019 ANGEL MCDOWELL MD Ot G47.30 SLEEP APNEA, UNSPECIFIED 05/05/2019 ANGEL MCDOWELL MD Ot G60 .0 HEREDITARY MOTOR AND SENSORY NEUROPATHY 05/05/2019 ANGEL MCDOWELL MD Ot I13 .0 HYP HRT CHR [place]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 05/05/2019 ANGEL MCDOWELL MD, Ot I21.A1 MYOCARDIAL INFARCTION TYPE 2 05/05/2019 ANGEL MCDOWELL MD, Ot I25.10 ATHSCL HEART DISEASE OF [place] CORONARY 05/05/2019 ANGEL MCDOWELL MD, Ot I48 .0 PAROXYSMAL ATRIAL FIBRILLATION 05/05/2019 ANGEL MCDOWELL MD, Ot I49 .5 SICK SINUS SYNDROME 05/05/2019 ANGEL MCDOWELL MD, Ot I50.31 ACUTE DIASTOLIC (CONGESTIVE) HEART FAILU 05/05/2019 ANGEL MCDOWELL MD Ot I70.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 [place] ARTERIES OF EXTREMITI 05/05/2019 ANGEL MCDOWELL MD, Ot J90 PLEURAL EFFUSION, NOT ELSEWHERE CLASSIFI 05/05/2019 ANGEL MCDOWELL MD, Ot K58 .9 IRRITABLE BOWEL SYNDROME WITHOUT DIARRHE 05/05/2019 ANGEL MCDOWELL MD, Ot N18 .3 CHRONIC KIDNEY DISEASE, STAGE 3 (MODERAT 05/05/2019 ANGEL MCDOWELL MD, Ot T82.855A STENOSIS OF CORONARY ARTERY STENT, INITI 05/05/2019 ANGEL MCDOWELL MD, Ot Z79.01 PENITENTIARY (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 OF ANTICOAGULANT 05/05/2019 ANGEL MCDOWELL MD, Ot Z79.02 PENITENTIARY (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 OF ANTITHROMBOTI 05/05/2019 ANGEL MCDOWELL MD, Ot Z79 .4 PENITENTIARY (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 05/05/2019 ANGEL MCDOWELL MD, Ot Z85 .3 PERSONAL HISTORY OF MALIGNANT NEOPLASM O 05/05/2019 ANGEL MCDOWELL MD, Ot Z86.73 PRSNL HX OF TIA (TIA), AND CEREB INFRC W 05/05/2019 ANGEL MCDOWELL MD, Ot Z92 .3 PERSONAL HISTORY OF IRRADIATION 05/05/2019 ANGEL MCDOWELL MD, Ot Z95 .0 PRESENCE OF CARDIAC PACEMAKER 05/05/2019 ANGEL MCDOWELL MD, Ot Z95 .2 PRESENCE OF PROSTHETIC HEART VALVE 05/05/2019 ANGEL MCDOWELL MD, Ot Z95 .5 PRESENCE OF CORONARY ANGIOPLASTY IMPLANT 05/05/2019 ANGEL MCDOWELL MD, Ot Z95.820 PERIPHERAL VASCULAR ANGIOPLASTY STATUS W 05/05/2019 ANGEL MCDOWELL MD, Ot D64 .9 ANEMIA, UNSPECIFIED 05/05/2019 ANGEL MCDOWELL MD Ot E04 .2 NONTOXIC MULTINODULAR GOITER 05/05/2019 ANGEL MCDOWELL MD Ot E11.40 TYPE 2 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 WITH DIABETIC N 05/05/2019 ANGEL MCDOWELL MD, Ot E11.51 TYPE 2 DIABETES W DIABETIC PERIPHERAL AN 05/05/2019 ANGEL MCDOWELL MD Ot E78.00 PURE HYPERCHOLESTEROLEMIA, UNSPECIFIED 05/05/2019 ANGEL MCDOWELL MD Ot G47.30 SLEEP APNEA, UNSPECIFIED 05/05/2019 ANGEL MCDOWELL MD Ot G60 .0 HEREDITARY MOTOR AND SENSORY NEUROPATHY 05/05/2019 ANGEL MCDOWELL MD, Ot I13 .0 HYP HRT CHR [place]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 05/05/2019 ANGEL MCDOWELL MD, Ot I21.A1 MYOCARDIAL INFARCTION TYPE 2 05/05/2019 ANGEL MCDOWELL MD, Ot I25.10 ATHSCL HEART DISEASE OF [place] CORONARY 05/05/2019 ANGEL MCDOWELL MD Ot I48 .0 PAROXYSMAL ATRIAL FIBRILLATION 05/05/2019 ANGEL MCDOWELL MD Ot I49 .5 SICK SINUS SYNDROME 05/05/2019 ANGEL MCDOWELL MD Ot I50.31 ACUTE DIASTOLIC (CONGESTIVE) HEART FAILU 05/05/2019 ANGEL MCDOWELL MD Ot I70.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 [place] ARTERIES OF EXTREMITI 05/05/2019 ANGEL MCDOWELL MD Ot J90 PLEURAL EFFUSION, NOT ELSEWHERE CLASSIFI 05/05/2019 ANGEL MCDOWELL MD, Ot J94 .2 HEMOTHORAX 05/05/2019 ANGEL MCDOWELL MD, Ot K58 .9 IRRITABLE BOWEL SYNDROME WITHOUT DIARRHE 05/05/2019 ANGEL MCDOWELL MD Ot N18 .3 CHRONIC KIDNEY DISEASE, STAGE 3 (MODERAT 05/05/2019 ANGEL MCDOWELL MD, Ot T82.855A STENOSIS OF CORONARY ARTERY STENT, INITI 05/05/2019 ANGEL MCDOWELL MD Ot Z23 ENCOUNTER FOR IMMUNIZATION 05/05/2019 ANGEL MCDOWELL MD, Ot Z79.01 INFORMATION SYSTEMS OPERATOR (CURRENT) USE OF ANTICOAGULANT 05/05/2019 ANGEL MCDOWELL MD, Ot Z79.02 INFORMATION SYSTEMS OPERATOR (CURRENT) USE OF ANTITHROMBOTI 05/05/2019 ANGEL MCDOWELL MD, Ot Z79 .4 INFORMATION SYSTEMS OPERATOR (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 05/05/2019 ANGEL MCDOWELL MD, Ot Z85 .3 PERSONAL HISTORY OF MALIGNANT NEOPLASM O 05/05/2019 ANGEL MCDOWELL MD, Ot Z86.73 PRSNL HX OF TIA (TIA), AND CEREB INFRC W 05/05/2019 ANGEL MCDOWELL MD, Ot Z92 .3 PERSONAL HISTORY OF IRRADIATION 05/05/2019 ANGEL MCDOWELL MD, Ot Z95 .0 PRESENCE OF CARDIAC PACEMAKER 05/05/2019 ANGEL MCDOWELL MD, Ot Z95 .2 PRESENCE OF PROSTHETIC HEART VALVE 05/05/2019 ANGEL MCDOWELL MD, Ot Z95 .5 PRESENCE OF CORONARY ANGIOPLASTY IMPLANT 05/05/2019 ANGEL MCDOWELL MD, Ot Z95.820 PERIPHERAL VASCULAR ANGIOPLASTY STATUS W 05/08/2019 CRIS WALDEN MD Ot E11. 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 00 PURE HYPERCHOLESTEROLEMIA, UNSPECIFIED 05/08/2019 CRIS WALDEN MD Ot E78. 5 HYPERLIPIDEMIA, UNSPECIFIED 05/08/2019 CRIS WALDEN MD, Ot I12. 9 HYPERTENSIVE CHRONIC KIDNEY DISEASE W ST 05/08/2019 CRIS WALDEN MD Ot I25. 10 ATHSCL HEART DISEASE OF [place] CORONARY 05/08/2019 CRIS WALDEN MD Ot I48. 91 UNSPECIFIED ATRIAL FIBRILLATION 05/08/2019 CRIS WALDEN MD Ot I49. 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 9 CHRONIC KIDNEY DISEASE, UNSPECIFIED 05/08/2019 CRIS WALDEN MD Ot N30. 00 ACUTE CYSTITIS WITHOUT HEMATURIA 05/08/2019 CRIS WALDEN MD Ot R53. 1 WEAKNESS 05/08/2019 CRIS WALDEN MD, Ot Z79. 01 PENITENTIARY (CURRENT) USE OF ANTICOAGULANT 05/08/2019 CRIS WALDEN MD Ot Z79. 02 PENITENTIARY (CURRENT) USE OF ANTITHROMBOTI 05/08/2019 WIN MD, CRIS M Ot Z79. 4 INFORMATION SYSTEMS OPERATOR (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 05/08/2019 CRIS WALDEN MD Ot Z80. 9 FAMILY HISTORY OF MALIGNANT NEOPLASM, UN 05/08/2019 CRIS WALDEN MD Ot Z82. 49 FAMILY HX OF [place] HEART DIS AND OTH DI 05/08/2019 CRIS WALDEN MD Ot Z83. 3 FAMILY HISTORY OF 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 05/08/2019 CRIS WALDEN MD Ot Z88. 1 ALLERGY STATUS TO OTHER ANTIBIOTIC AGENT 05/08/2019 CRIS WALDEN MD Ot Z88. 2 ALLERGY STATUS TO SULFONAMIDES STATUS 05/08/2019 CRIS WALDEN MD Ot Z88. 5 ALLERGY STATUS TO NARCOTIC AGENT STATUS 05/08/2019 CRIS WALDEN MD, Ot Z88. 8 ALLERGY STATUS TO OTH DRUG/MEDS/BIOL SUB 05/08/2019 CRIS WALDEN MD Ot Z90.710 ACQUIRED ABSENCE OF BOTH CERVIX AND UTER 05/08/2019 CRIS WALDEN MD Ot Z95. 0 PRESENCE OF CARDIAC PACEMAKER 05/08/2019 CRIS WALDEN MD Ot Z95. 1 PRESENCE OF AORTOCORONARY BYPASS GRAFT 05/08/2019 CRIS WALDEN MD Ot E11. 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 00 PURE HYPERCHOLESTEROLEMIA, UNSPECIFIED 05/08/2019 CRIS WALDEN MD Ot E78. 5 HYPERLIPIDEMIA, UNSPECIFIED 05/08/2019 CRIS WALDEN MD Ot I12. 9 HYPERTENSIVE CHRONIC KIDNEY DISEASE W ST 05/08/2019 CRIS WALDEN MD Ot I25. 10 ATHSCL HEART DISEASE OF [place] CORONARY 05/08/2019 CRIS WALDEN MD Ot I48. 91 UNSPECIFIED ATRIAL FIBRILLATION 05/08/2019 CRIS WALDEN MD Ot I49. 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 9 CHRONIC KIDNEY DISEASE, UNSPECIFIED 05/08/2019 CRIS WALDEN MD Ot N30. 00 ACUTE CYSTITIS WITHOUT HEMATURIA 05/08/2019 CRIS WALDEN MD Ot R53. 1 WEAKNESS 05/08/2019 CRIS WALDEN MD, Ot Z79. 01 PENITENTIARY (CURRENT) USE OF ANTICOAGULANT 05/08/2019 CRIS WALDEN MD, Ot Z79. 02 PENITENTIARY (CURRENT) USE OF ANTITHROMBOTI 05/08/2019 CRIS WALDEN MD, Ot Z79. 4 PENITENTIARY (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 05/08/2019 CRIS WALDEN MD, Ot Z80. 9 FAMILY HISTORY OF MALIGNANT NEOPLASM, UN 05/08/2019 CRIS WALDEN MD, Ot Z82. 49 FAMILY HX OF [place] HEART DIS AND OTH DI 05/08/2019 CRIS WALDEN MD, Ot Z83. 3 FAMILY HISTORY OF 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 05/08/2019 CRIS WALDEN MD, Ot Z88. 1 ALLERGY STATUS TO OTHER ANTIBIOTIC AGENT 05/08/2019 CRIS WALDEN MD, Ot Z88. 2 ALLERGY STATUS TO SULFONAMIDES STATUS 05/08/2019 CRIS WALDEN MD, Ot Z88. 5 ALLERGY STATUS TO NARCOTIC AGENT STATUS 05/08/2019 CRIS WALDEN MD, Ot Z88. 8 ALLERGY STATUS TO OTH DRUG/MEDS/BIOL SUB 05/08/2019 CRIS WALDEN MD Ot Z90.710 ACQUIRED ABSENCE OF BOTH CERVIX AND UTER 05/08/2019 CRIS WALDEN MD Ot Z95. 0 PRESENCE OF CARDIAC PACEMAKER 05/08/2019 CRIS WALDEN MD Ot Z95. 1 PRESENCE OF AORTOCORONARY BYPASS GRAFT 05/28/2019 MOIRA HEART MD Ot E11.40 TYPE 2 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 WITH DIABETIC N 05/28/2019 MOIRA HEART MD Ot E11.621 TYPE 2 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 WITH FOOT ULCER 05/28/2019 MOIRA HEART MD Ot E78.00 PURE HYPERCHOLESTEROLEMIA, UNSPECIFIED 05/28/2019 MOIRA HEART MD Ot I10 ESSENTIAL (PRIMARY) HYPERTENSION 05/28/2019 MOIRA HEART MD, Ot I25.10 ATHSCL HEART DISEASE OF [place] CORONARY 05/28/2019 MOIRA HEART MD, Ot I25.2 OLD MYOCARDIAL INFARCTION 05/28/2019 MOIRA HEART MD Ot I48.91 UNSPECIFIED ATRIAL FIBRILLATION 05/28/2019 MOIRA HEART MD, Ot K58.9 IRRITABLE BOWEL SYNDROME WITHOUT DIARRHE 05/28/2019 MOIRA HEART MD, Ot L97.529 NON-PRESSURE CHRONIC ULCER OTH PRT LEFT 05/28/2019 MOIRA HEART MD, Ot T81.89XA OTH COMPLICATIONS OF PROCEDURES, NEC, IN 05/28/2019 MOIRA HEART MD, Ot Z79.01 INFORMATION SYSTEMS OPERATOR (CURRENT) USE OF ANTICOAGULANT 05/28/2019 MOIRA HEART MD, Ot Z79.02 PENITENTIARY (CURRENT) USE OF ANTITHROMBOTI 05/28/2019 MOIRA HEART MD, Ot Z79.4 PENITENTIARY (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 05/28/2019 MOIRA HEART MD, Ot Z82.49 FAMILY HX OF [place] HEART DIS AND OTH DI 05/28/2019 MOIRA HEART MD, Ot Z85.3 PERSONAL HISTORY OF MALIGNANT NEOPLASM O 05/28/2019 MOIRA HEART MD Ot Z86.73 PRSNL HX OF TIA (TIA), AND CEREB INFRC W 05/28/2019 MOIRA HEART MD Ot Z87.440 PERSONAL HISTORY OF URINARY (TRACT) INFE 05/28/2019 MOIRA HEART MD Ot Z88.0 ALLERGY STATUS TO PENICILLIN 05/28/2019 MOIRA HEART MD, Ot Z88.1 ALLERGY STATUS TO OTHER ANTIBIOTIC AGENT 05/28/2019 MO[facility]A HEART MD, Ot Z88.2 ALLERGY STATUS TO SULFONAMIDES STATUS 05/28/2019 MOIRA HEART MD, Ot Z88.5 ALLERGY STATUS TO NARCOTIC AGENT STATUS 05/28/2019 MOIRA HEART MD, Ot Z88.8 ALLERGY STATUS TO OT DRUG/MEDS/BIOL SUB 05/28/2019 MOIRA HEART MD Ot Z90.710 ACQUIRED ABSENCE OF BOTH CERVIX AND UTER 05/28/2019 MOIRA HEART MD Ot Z95.0 PRESENCE OF CARDIAC PACEMAKER 05/28/2019 MOIRA HEART MD Ot Z95.5 PRESENCE OF CORONARY ANGIOPLASTY IMPLANT 05/31/2019 MOIRA HEART MD Ot E11.40 TYPE 2 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 WITH DIABETIC N 05/31/2019 MOIRA HEART MD Ot E11.621 TYPE 2 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 WITH FOOT ULCER 05/31/2019 MOIRA HEART MD Ot E78.00 PURE HYPERCHOLESTEROLEMIA, UNSPECIFIED 05/31/2019 MOIRA HEART MD Ot I10 ESSENTIAL (PRIMARY) HYPERTENSION 05/31/2019 MOIRA HEART MD, Ot I25.10 ATHSCL HEART DISEASE OF [place] CORONARY 05/31/2019 MOIRA HEART MD, Ot I25.2 OLD MYOCARDIAL INFARCTION 05/31/2019 MOIRA HEART MD, Ot I48.91 UNSPECIFIED ATRIAL FIBRILLATION 05/31/2019 MOIRA HEART MD, Ot K58.9 IRRITABLE BOWEL SYNDROME WITHOUT DIARRHE 05/31/2019 MOIRA HEART MD, Ot L97.529 NON-PRESSURE CHRONIC ULCER OTH PRT LEFT 05/31/2019 MOIRA HEART MD, Ot T81.89XA OTH COMPLICATIONS OF PROCEDURES, NEC, IN 05/31/2019 MOIRA HEART MD Ot Z79.01 INFORMATION SYSTEMS OPERATOR (CURRENT) USE OF ANTICOAGULANT 05/31/2019 MOIRA HEART MD Ot Z79.02 PENITENTIARY (CURRENT) USE OF ANTITHROMBOTI 05/31/2019 MOIRA HEART MD, Ot 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 05/31/2019 MOIRA HEART MD Ot Z82.49 FAMILY HX OF ISCHEM HEART DIS AND OTH DI 05/31/2019 MOIRA HEART MD Ot Z85.3 PERSONAL HISTORY OF MALIGNANT NEOPLASM O 05/31/2019 MOIRA HEART MD Ot Z86.73 PRSNL HX OF TIA (TIA), AND CEREB INFRC W 05/31/2019 MOIRA HEART MD Ot Z87.440 PERSONAL HISTORY OF URINARY (TRACT) INFE 05/31/2019 MOIRA HEART MD Ot Z88.0 ALLERGY STATUS TO PENICILLIN 05/31/2019 MOIRA HEART MD Ot Z88.1 ALLERGY STATUS TO OTHER ANTIBIOTIC AGENT 05/31/2019 MOIRA HEART MD Ot Z88.2 ALLERGY STATUS TO SULFONAMIDES STATUS 05/31/2019 [id number] MD, MOIRA D Ot Z88.5 ALLERGY STATUS TO NARCOTIC AGENT STATUS 05/31/2019 MOIRA HEART MD Ot Z88.8 ALLERGY STATUS TO OTH DRUG/MEDS/BIOL SUB 05/31/2019 MOIRA HEART MD Ot Z90.710 ACQUIRED ABSENCE OF BOTH CERVIX AND UTER 05/31/2019 MOIRA HEART MD Ot Z95.0 PRESENCE OF CARDIAC PACEMAKER 05/31/2019 MOIRA HEART MD Ot Z95.5 PRESENCE OF CORONARY ANGIOPLASTY IMPLANT 06/03/2019 JOE ROBERTSON MD Ot L97.5 21 NON-PRS CHRONIC ULCER OTH PRT L FOOT ZIMMERMAN 06/03/2019 CIERA ROJAS, DESTINEE Soliman Ot I25.10 ATHSCL HEART DISEASE OF [place] CORONARY 06/03/2019 JOE ROBERTSON MD Ot E04.1 NONTOXIC SINGLE THYROID NODULE 06/03/2019 ANTHONY GARZA Ot E04.1 NONTOXIC SINGLE THYROID NODULE 06/03/2019 ANTHONY GARZA Ot 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 06/03/2019 ANTHONY GARZA Ot E11.43 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 06/03/2019 ANTHONY GARZA Ot E78.5 HYPERLIPIDEMIA, UNSPECIFIED 06/03/2019 ANTHONY GARZA Ot 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 [facility]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 06/03/2019 ANTHONY GARZA Ot I25.10 ATHSCL HEART DISEASE OF [place] CORONARY 06/03/2019 ANTHONY GARZA Ot I50.9 HEART FAILURE, UNSPECIFIED 06/03/2019 ANTHONY GARZA Ot K21.9 GASTRO-ESOPHAGEAL REFLUX DISEASE WITHOUT 06/03/2019 ANTHONY GARZA Ot N18.3 CHRONIC KIDNEY DISEASE, STAGE 3 (MODERAT 06/03/2019 ANTHONY GARZA Ot Z08 ENCNTR FOR FOLLOW-UP EXAM AFTER TRTMT FO 06/03/2019 ANTHONY GARZA Ot Z79.02 PENITENTIARY (CURRENT) USE OF ANTITHROMBOTI 06/03/2019 ANTHONY GARZA Ot Z79.4 PENITENTIARY (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 06/03/2019 ANTHONY GARZA Ot Z79.899 OTHER PENITENTIARY (CURRENT) DRUG THERAPY 06/03/2019 ANTHONY GARZA Ot Z85.3 PERSONAL HISTORY OF MALIGNANT NEOPLASM O 06/03/2019 ANTHONY GARZA Ot Z95.5 PRESENCE OF CORONARY ANGIOPLASTY IMPLANT 06/03/2019 JOE ROBERTSON MD Ot R30.9 PAINFUL MICTURITION, UNSPECIFIED 06/03/2019 DIMPLE NOVOA MD Ot E78. 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 10 ATHSCL HEART DISEASE OF [place] CORONARY 06/03/2019 DIMPLE NOVOA MD Ot I49. 5 SICK SINUS SYNDROME 06/03/2019 NENA ROJAS, AMADEO Sherman Ot Z01.818 ENCOUNTER FOR OTHER PREPROCEDURAL EXAMIN 06/03/2019 JEO ROBERTSON MD Ot R05 COUGH 06/03/2019 JOE ROBERTSON MD Ot Z95.0 PRESENCE OF CARDIAC PACEMAKER 06/03/2019 ANTHONY GARZA Ot E04.1 NONTOXIC SINGLE THYROID NODULE 06/03/2019 ANTHONY GARZA Ot 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 06/03/2019 ANTHONY GARZA Ot E11.43 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 06/03/2019 ANTHONY GARZA Ot E78.5 HYPERLIPIDEMIA, UNSPECIFIED 06/03/2019 ANTHONY GARZA Ot 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 [facility]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 06/03/2019 ANTHONY GARZA Ot I25.10 ATHSCL HEART DISEASE OF [place] CORONARY 06/03/2019 ANTHONY GARZA Ot K21.9 GASTRO-ESOPHAGEAL REFLUX DISEASE WITHOUT 06/03/2019 ANTHONY GARZA Ot N18.3 CHRONIC KIDNEY DISEASE, STAGE 3 (MODERAT 06/03/2019 ANTHONY GARZA Ot Z08 ENCNTR FOR FOLLOW-UP EXAM AFTER TRTMT FO 06/03/2019 ANTHONY GARZA Ot Z79.02 INFORMATION SYSTEMS OPERATOR (CURRENT) USE OF ANTITHROMBOTI 06/03/2019 ANTHONY GARZA Ot Z79.4 PENITENTIARY (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 06/03/2019 ANTHONY GARZA Ot Z79.899 OTHER INFORMATION SYSTEMS OPERATOR (CURRENT) DRUG THERAPY 06/03/2019 GREG, ANTHONY Bender Ot Z85.3 PERSONAL HISTORY OF MALIGNANT NEOPLASM O 06/03/2019 GREGANTHONY Ot Z95.5 PRESENCE OF CORONARY ANGIOPLASTY IMPLANT 06/03/2019 Ot R19.7 DIAR KRIS, UNSPECIFIED 06/04/2019 CRIS WALDEN MD Ot E11. 22 TYPE 2 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 WADER BOOT 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 06/04/2019 CRIS WALDEN MD Ot E78. 00 PURE HYPERCHOLESTEROLEMIA, UNSPECIFIED 06/04/2019 CRIS WALDEN MD, Ot E78. 2 MIXED HYPERLIPIDEMIA 06/04/2019 CRIS WALDEN MD Ot G47. 33 OBSTRUCTIVE SLEEP APNEA (ADULT) (PEDIATR 06/04/2019 CRIS WALDEN MD, Ot I12. 9 HYPERTENSIVE CHRONIC KIDNEY DISEASE W ST 06/04/2019 CRIS WALDEN MD, Ot I25. 10 ATHSCL HEART DISEASE OF [place] CORONARY 06/04/2019 CRIS WALDEN MD Ot I48. 91 UNSPECIFIED ATRIAL FIBRILLATION 06/04/2019 CRIS WALDEN MD Ot I73. 9 PERIPHERAL VASCULAR DISEASE, UNSPECIFIED 06/04/2019 CRIS WALDEN MD Ot I95. 1 ORTHOSTATIC HYPOTENSION 06/04/2019 CRIS WALDEN MD Ot N18. 9 CHRONIC KIDNEY DISEASE, UNSPECIFIED 06/04/2019 CRIS WALDEN MD Ot Z79. 01 PENITENTIARY (CURRENT) USE OF ANTICOAGULANT 06/04/2019 CRIS WADLEN MD Ot Z79. 02 INFORMATION SYSTEMS OPERATOR (CURRENT) USE OF ANTITHROMBOTI 06/04/2019 CRIS WALDEN MD Ot Z79. 4 PENITENTIARY (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 06/04/2019 CRIS WALDEN MD, Ot Z79.899 OTHER INFORMATION SYSTEMS OPERATOR (CURRENT) DRUG THERAPY 06/04/2019 CRIS WALDEN MD Ot Z85. 3 PERSONAL HISTORY OF MALIGNANT NEOPLASM O 06/04/2019 CRIS WALDEN MD, Ot Z86. 73 PRSNL HX OF TIA (TIA), AND CEREB INFRC W 06/04/2019 CRIS WALDEN MD, Ot Z88. 1 ALLERGY STATUS TO OTHER ANTIBIOTIC AGENT 06/04/2019 CRIS WALDEN MD, Ot Z88. 2 ALLERGY STATUS TO SULFONAMIDES STATUS 06/04/2019 CRIS WALDEN MD Ot Z88. 5 ALLERGY STATUS TO NARCOTIC AGENT STATUS 06/04/2019 CRIS WALDEN MD Ot Z88. 6 ALLERGY STATUS TO ANALGESIC AGENT STATUS 06/04/2019 CRIS WALDEN MD Ot Z88. 8 ALLERGY STATUS TO OTH DRUG/MEDS/BIOL SUB 06/04/2019 CRIS WALDEN MD Ot Z90. 49 ACQUIRED ABSENCE OF OTHER SPECIFIED PART 06/04/2019 CRIS WALDEN MD Ot Z90.710 ACQUIRED ABSENCE OF BOTH CERVIX AND UTER 06/04/2019 CRIS WALDEN MD Ot Z90.721 ACQUIRED ABSENCE OF OVARIES, UNILATERAL 06/04/2019 CRIS WALDEN MD Ot Z95. 2 PRESENCE OF PROSTHETIC HEART VALVE 06/07/2019 JOE ROBERTSON MD, Ot J18.9 PNEUMONIA, UNSPECIFIED ORGANISM 06/07/2019 JOE ROBERTSON MD Ot R91.8 OTHER NONSPECIFIC ABNORMAL FINDING OF HEAVEN 06/07/2019 JOE ROBERTSON MD Ot Z98.8 90 OTHER SPECIFIED POSTPROCEDURAL STATES 06/07/2019 ZOLTAN VERMA DO Ot S30.1XXA CONTUSION OF ABDOMINAL WALL, INITIAL ENC 06/07/2019 ZOLTAN VERMA DO Ot X58.XXXA EXPOSURE TO OTHER SPECIFIED FACTORS, INI 06/27/2019 JOE ROBERTSON MD, Ot J18.9 PNEUMONIA, UNSPECIFIED ORGANISM 06/27/2019 JOE ROBERTSON MD Ot R91.8 OTHER NONSPECIFIC ABNORMAL FINDING OF HEAVEN 07/06/2019 JARROD DAVIS Ot E86.9 VOLUME DEPLETION, UNSPECIFIED 07/06/2019 JARROD DAVIS Ot E87.1 HYPO-OSMOLALITY AND HYPONATREMIA 07/07/2019 JOE ROBERTSON MD, Ot J18.9 PNEUMONIA, UNSPECIFIED ORGANISM 07/07/2019 JOE ROBERTSON MD Ot R91.8 OTHER NONSPECIFIC ABNORMAL FINDING OF HEAVEN 07/07/2019 JOE ROBERTSON MD Ot Z98.8 90 OTHER SPECIFIED POSTPROCEDURAL STATES 07/08/2019 JARROD DAVIS Ot E86.9 VOLUME DEPLETION, UNSPECIFIED 07/08/2019 JARROD DAVIS Ot E87.1 HYPO-OSMOLALITY AND HYPONATREMIA 07/18/2019 JOE ROBERTSON MD, Ot J18.9 PNEUMONIA, UNSPECIFIED ORGANISM 07/18/2019 JOE ROBERTSON MD Ot R91.8 OTHER NONSPECIFIC ABNORMAL FINDING OF HEAVEN 07/26/2019 JOE ROBERTSON MD Ot L98.9 DISORDER OF THE SKIN AND SUBCUTANEOUS TI 07/29/2019 HANSON DO, KIMMY Ot B96.20 UNSP ESCHERICHIA COLI THE CAUSE OF DI 07/29/2019 HANSON DO, KIMMY Ot 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 07/29/2019 HANSON DO, KIMMY Ot E11.40 TYPE 2 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 WITH DIABETIC N 07/29/2019 HANSON DO, KIMMY Ot E11.51 TYPE 2 DIABETES W DIABETIC PERIPHERAL AN 07/29/2019 HANSON DO, KIMMY Ot E11.61 0 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 07/29/2019 HANSON DO, KIMMY Ot E11.64 9 TYPE 2 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 WITH HYPOGLYCEM 07/29/2019 HANSON DO, KIMMY Ot E78.5 HYPERLIPIDEMIA, UNSPECIFIED 07/29/2019 HANSON DO, KIMMY Ot H54.62 UNQUALIFIED VISUAL LOSS, LEFT EYE, MYRNA 07/29/2019 HANSON DO, KIMMY Ot H91.90 UNSPECIFIED HEARING LOSS, UNSPECIFIED EA 07/29/2019 HANSON DO, KIMMY Ot 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 [place]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 07/29/2019 HANSON DO, KIMMY Ot I25.10 ATHSCL HEART DISEASE OF [place] CORONARY 07/29/2019 HANSON DO, KIMMY Ot I48.0 PAROXYSMAL ATRIAL FIBRILLATION 07/29/2019 HANSON DO, KIMMY Ot I49.5 SICK SINUS SYNDROME 07/29/2019 HANSON DO, KIMMY Ot I50.9 HEART FAILURE, UNSPECIFIED 07/29/2019 HANSON DO, KIMMY Ot I73.9 PERIPHERAL VASCULAR DISEASE, UNSPECIFIED 07/29/2019 HANSON DO, KIMMY Ot K58.9 IRRITABLE BOWEL SYNDROME WITHOUT DIARRHE 07/29/2019 HANSON DO, KIMMY Ot N17.9 ACUTE KIDNEY FAILURE, UNSPECIFIED 07/29/2019 HANSON DO, KIMMY Ot N18.3 CHRONIC KIDNEY DISEASE, STAGE 3 (MODERAT 07/29/2019 HANSON DO, KIMMY Ot N39.0 URINARY TRACT INFECTION, SITE NOT SPECIF 07/29/2019 HANSON DO, KIMMY Ot R21 RASH AND OTHER NONSPECIFIC SKIN ERUPTION 07/29/2019 MARGIE CANDELARIO, KIMMY Ot Z16.12 EXTENDED SPECTRUM BETA LACTAMASE (ESBL) 07/29/2019 MARGIE CANDELARIO, KIMMY Ot Z79.4 PENITENTIARY (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 07/29/2019 MARGIE CANDELARIO, KIMMY Ot Z90.12 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 07/29/2019 MARGIE CANDELARIO, KIMMY Ot Z90.71 0 ACQUIRED ABSENCE OF BOTH CERVIX AND UTER 07/29/2019 MARGIE CANDELARIO KIMMY Ot Z90.72 2 ACQUIRED ABSENCE OF OVARIES, BILATERAL 07/29/2019 MARGIE CANDELARIO, KIMMY Ot Z92.3 PERSONAL HISTORY OF IRRADIATION 07/29/2019 MARGIE CANDELARIO, KIMMY Ot Z95.0 PRESENCE OF CARDIAC PACEMAKER 07/29/2019 MARGIE CANDELARIO KIMMY Ot Z95.2 PRESENCE OF PROSTHETIC HEART VALVE 07/29/2019 MARGIE CANDELARIO, KIMMY Ot Z95.5 PRESENCE OF CORONARY ANGIOPLASTY IMPLANT 07/29/2019 MARGIE CANDELARIO KIMMY Ot Z95.82 0 PERIPHERAL VASCULAR ANGIOPLASTY STATUS W 08/02/2019 CRIS WALDEN MD Ot B96. 20 UNSP ESCHERICHIA COLI THE CAUSE OF DI 08/02/2019 CRIS WALDEN MD Ot D64. 9 ANEMIA, UNSPECIFIED 08/02/2019 CRIS WALDEN MD Ot E11. 22 TYPE 2 DIABETES 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 WADER BOOT 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 08/02/2019 CRIS WALDEN MD Ot E11. 51 TYPE 2 DIABETES W DIABETIC PERIPHERAL AN 08/02/2019 CRIS WALDEN MD Ot E11.649 TYPE 2 DIABETES MELLITUS WITH HYPOGLYCEM 08/02/2019 CRIS WALDEN MD Ot E78. 5 HYPERLIPIDEMIA, UNSPECIFIED 08/02/2019 CRIS WALDEN MD Ot I12. 9 HYPERTENSIVE CHRONIC KIDNEY DISEASE W ST 08/02/2019 CRIS WALDEN MD Ot I25. 10 ATHSCL HEART DISEASE OF [place] CORONARY 08/02/2019 CRIS WALDEN MD Ot I48. 0 PAROXYSMAL ATRIAL FIBRILLATION 08/02/2019 CRIS WALDEN MD Ot I49. 5 SICK SINUS SYNDROME 08/02/2019 CRIS WALDEN MD Ot I73. 9 PERIPHERAL VASCULAR DISEASE, UNSPECIFIED 08/02/2019 CRIS WALDEN MD Ot N18. 3 CHRONIC KIDNEY DISEASE, STAGE 3 (MODERAT 08/02/2019 CRIS WALDEN MD, Ot N39. 0 URINARY TRACT INFECTION, SITE NOT SPECIF 08/02/2019 CRIS WALDEN MD, Ot R04. 0 EPISTAXIS 08/02/2019 CRIS WALDEN MD, Ot R21 RASH AND OTHER NONSPECIFIC SKIN ERUPTION 08/02/2019 CRIS WALDEN MD, Ot R53. 1 WEAKNESS 08/02/2019 CRIS WALDEN MD, Ot Z16. 12 EXTENDED SPECTRUM BETA LACTAMASE (ESBL) 08/02/2019 CRIS WALDEN MD, Ot Z85. 3 PERSONAL HISTORY OF MALIGNANT NEOPLASM O 08/02/2019 CRIS WALDEN MD, Ot Z95. 0 PRESENCE OF CARDIAC PACEMAKER 08/02/2019 CRIS WALDEN MD, Ot Z95. 2 PRESENCE OF PROSTHETIC HEART VALVE 08/02/2019 CRIS WALDEN MD Ot Z95. 5 PRESENCE OF CORONARY ANGIOPLASTY IMPLANT 08/02/2019 CRIS WALDEN MD, Ot Z95.820 PERIPHERAL VASCULAR ANGIOPLASTY STATUS W 08/05/2019 MARGIE CANDELARIO KIMMY Ot B96.20 UNSP ESCHERICHIA COLI THE CAUSE OF DI 08/05/2019 MARGIE DO, KIMMY Ot 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 08/05/2019 MARGIE CANDELARIO KIMMY Ot E11.40 TYPE 2 DIABETES MELLITUS WITH DIABETIC N 08/05/2019 MARGIE CANDELARIO KIMMY Ot E11.51 TYPE 2 DIABETES W DIABETIC PERIPHERAL AN 08/05/2019 MARGIE CANDELARIO KIMMY Ot E11.61 0 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 08/05/2019 MARGIE CANDELARIO KIMMY Ot E11.64 9 TYPE 2 DIABETES MELLITUS WITH HYPOGLYCEM 08/05/2019 MARGIE CANDELARIO KIMMY Ot E78.5 HYPERLIPIDEMIA, UNSPECIFIED 08/05/2019 MARGIE CANDELARIO KIMMY Ot H54.62 UNQUALIFIED VISUAL LOSS, LEFT EYE, MYRNA 08/05/2019 MARGIE CANDELARIO KIMMY Ot H91.90 UNSPECIFIED HEARING LOSS, UNSPECIFIED EA 08/05/2019 MARGIE CANDELARIO KIMMY Ot 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 [place]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 08/05/2019 MARGIE DO KIMMY Ot I25.10 ATHSCL HEART DISEASE OF [place] CORONARY 08/05/2019 MARGIE DO KIMMY Ot I48.0 PAROXYSMAL ATRIAL FIBRILLATION 08/05/2019 HANSON DO, KIMMY Ot I49.5 SICK SINUS SYNDROME 08/05/2019 HANSON DO, KIMMY Ot I50.9 HEART FAILURE, UNSPECIFIED 08/05/2019 HANSON DO, KIMMY Ot I73.9 PERIPHERAL VASCULAR DISEASE, UNSPECIFIED 08/05/2019 HANSON DO, KIMMY Ot K58.9 IRRITABLE BOWEL SYNDROME WITHOUT DIARRHE 08/05/2019 HANSON DO, KIMMY Ot N17.9 ACUTE KIDNEY FAILURE, UNSPECIFIED 08/05/2019 HANSON DO, KIMMY Ot N18.3 CHRONIC KIDNEY DISEASE, STAGE 3 (MODERAT 08/05/2019 HANSON DO, KIMMY Ot N39.0 URINARY TRACT INFECTION, SITE NOT SPECIF 08/05/2019 HANSON DO, KIMMY Ot R21 RASH AND OTHER NONSPECIFIC SKIN ERUPTION 08/05/2019 HANSON DO, KIMMY Ot Z16.12 EXTENDED SPECTRUM BETA LACTAMASE (ESBL) 08/05/2019 HANSON DO, KIMMY Ot 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 08/05/2019 HANSON DO, KIMMY Ot Z90.12 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 08/05/2019 HANSON DO, KIMMY Ot Z90.71 0 ACQUIRED ABSENCE OF BOTH CERVIX AND UTER 08/05/2019 HANSON DO, KIMMY Ot Z90.72 2 ACQUIRED ABSENCE OF OVARIES, BILATERAL 08/05/2019 HANSON DO, KIMMY Ot Z92.3 PERSONAL HISTORY OF IRRADIATION 08/05/2019 HANSON DO, KIMMY Ot Z95.0 PRESENCE OF CARDIAC PACEMAKER 08/05/2019 HANSON DO, KIMMY Ot Z95.2 PRESENCE OF PROSTHETIC HEART VALVE 08/05/2019 HANSON DO, KIMMY Ot Z95.5 PRESENCE OF CORONARY ANGIOPLASTY IMPLANT 08/05/2019 HANSON DO, KIMMY Ot Z95.82 0 PERIPHERAL VASCULAR ANGIOPLASTY STATUS W 08/05/2019 HANSON DO, KIMMY Ot B96.20 UNSP ESCHERICHIA COLI THE CAUSE OF DI 08/05/2019 HANSON DO, KIMMY Ot 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 08/05/2019 HANSON DO, KIMMY Ot E11.40 TYPE 2 DIABETES MELLITUS WITH DIABETIC N 08/05/2019 HANSON DO, KIMMY Ot E11.51 TYPE 2 DIABETES W DIABETIC PERIPHERAL AN 08/05/2019 HANSON DO, KIMMY Ot E11.61 0 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 08/05/2019 HANSON DO, KIMMY Ot E11.64 9 TYPE 2 DIABETES MELLITUS WITH HYPOGLYCEM 08/05/2019 MARGIE CANDELARIO, KIMMY Ot E78.5 HYPERLIPIDEMIA, UNSPECIFIED 08/05/2019 HANSON DO, KIMMY Ot H54.62 UNQUALIFIED VISUAL LOSS, LEFT EYE, MYRNA 08/05/2019 HANSON DO, KIMMY Ot H91.90 UNSPECIFIED HEARING LOSS, UNSPECIFIED EA 08/05/2019 HANSON DO, KIMMY Ot 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 [place]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 08/05/2019 HANSON DO, KIMMY Ot I25.10 ATHSCL HEART DISEASE OF [place] CORONARY 08/05/2019 HANSON DO, KMIMY Ot I48.0 PAROXYSMAL ATRIAL FIBRILLATION 08/05/2019 HANSON DO, KIMMY Ot I49.5 SICK SINUS SYNDROME 08/05/2019 MARGIE CANDELARIO, KIMMY Ot I50.9 HEART FAILURE, UNSPECIFIED 08/05/2019 MARGIE CANDELARIO, KIMMY Ot I73.9 PERIPHERAL VASCULAR DISEASE, UNSPECIFIED 08/05/2019 MARGIE CANDELARIO, KIMMY Ot K58.9 IRRITABLE BOWEL SYNDROME WITHOUT DIARRHE 08/05/2019 HANSON DO, KIMMY Ot N17.9 ACUTE KIDNEY FAILURE, UNSPECIFIED 08/05/2019 MARGIE CANDELARIO, KIMMY Ot N18.3 CHRONIC KIDNEY DISEASE, STAGE 3 (MODERAT 08/05/2019 MARGIE CANDELARIO, KIMMY Ot N39.0 URINARY TRACT INFECTION, SITE NOT SPECIF 08/05/2019 MARGIE CANDELARIO KIMMY Ot R21 RASH AND OTHER NONSPECIFIC SKIN ERUPTION 08/05/2019 MARGIE CANDELARIO KIMMY Ot Z16.12 EXTENDED SPECTRUM BETA LACTAMASE (ESBL) 08/05/2019 MARGIE CANDELARIO KIMMY Ot Z79.4 PENITENTIARY (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 08/05/2019 MARGIE CANDELARIO KIMMY Ot Z90.12 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 08/05/2019 MARGIE CANDELARIO KIMMY Ot Z90.71 0 ACQUIRED ABSENCE OF BOTH CERVIX AND UTER 08/05/2019 MARGIE CANDELARIO KIMMY Ot Z90.72 2 ACQUIRED ABSENCE OF OVARIES, BILATERAL 08/05/2019 MARGIE CANDELARIO KIMMY Ot Z92.3 PERSONAL HISTORY OF IRRADIATION 08/05/2019 HANSON DO, IKMMY Ot Z95.0 PRESENCE OF CARDIAC PACEMAKER 08/05/2019 HANSON DO, KIMMY Ot Z95.2 PRESENCE OF PROSTHETIC HEART VALVE 08/05/2019 HANSON DO, KIMMY Ot Z95.5 PRESENCE OF CORONARY ANGIOPLASTY IMPLANT 08/05/2019 HANSON DO, KIMMY Ot Z95.82 0 PERIPHERAL VASCULAR ANGIOPLASTY STATUS W 08/05/2019 HANSON DO, KIMMY Ot B96.20 UNSP ESCHERICHIA COLI THE CAUSE OF DI 08/05/2019 HANSON DO, KIMMY Ot 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 08/05/2019 HANSON DO, KIMMY Ot E11.40 TYPE 2 DIABETES MELLITUS WITH DIABETIC N 08/05/2019 HANSON DO, KIMMY Ot E11.51 TYPE 2 DIABETES W DIABETIC PERIPHERAL AN 08/05/2019 HANSON DO, KIMMY Ot E11.61 0 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 08/05/2019 HANSON DO, KIMMY Ot E11.64 9 TYPE 2 DIABETES MELLITUS WITH HYPOGLYCEM 08/05/2019 HANSON DO, KIMMY Ot E78.5 HYPERLIPIDEMIA, UNSPECIFIED 08/05/2019 HANSON DO, KIMMY Ot H54.62 UNQUALIFIED VISUAL LOSS, LEFT EYE, MYRNA 08/05/2019 HANSON DO, KIMMY Ot H91.90 UNSPECIFIED HEARING LOSS, UNSPECIFIED EA 08/05/2019 HANSON DO, KIMMY Ot 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 [place]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 08/05/2019 HANSON DO, KIMMY Ot I25.10 ATHSCL HEART DISEASE OF [place] CORONARY 08/05/2019 HANSON DO, KIMMY Ot I48.0 PAROXYSMAL ATRIAL FIBRILLATION 08/05/2019 HANSON DO, KIMMY Ot I49.5 SICK SINUS SYNDROME 08/05/2019 HANSON DO, KIMMY Ot I50.9 HEART FAILURE, UNSPECIFIED 08/05/2019 HANSON DO, KIMMY Ot I73.9 PERIPHERAL VASCULAR DISEASE, UNSPECIFIED 08/05/2019 HANSON DO, KIMMY Ot K58.9 IRRITABLE BOWEL SYNDROME WITHOUT DIARRHE 08/05/2019 HANSON DO, KIMMY Ot N17.9 ACUTE KIDNEY FAILURE, UNSPECIFIED 08/05/2019 HANSON DO, KIMMY Ot N18.3 CHRONIC KIDNEY DISEASE, STAGE 3 (MODERAT 08/05/2019 HANSON DO, KIMMY Ot N39.0 URINARY TRACT INFECTION, SITE NOT SPECIF 08/05/2019 HANSON DO, KIMMY Ot R21 RASH AND OTHER NONSPECIFIC SKIN ERUPTION 08/05/2019 HANSON DO, KIMMY Ot Z16.12 EXTENDED SPECTRUM BETA LACTAMASE (ESBL) 08/05/2019 MARGIE CANDELARIO KIMMY Ot 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 08/05/2019 HANSON DO, KIMMY Ot Z90.12 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 08/05/2019 HANSON DO, KIMMY Ot Z90.71 0 ACQUIRED ABSENCE OF BOTH CERVIX AND UTER 08/05/2019 HANSON DO, KIMMY Ot Z90.72 2 ACQUIRED ABSENCE OF OVARIES, BILATERAL 08/05/2019 HANSON DO, KIMMY Ot Z92.3 PERSONAL HISTORY OF IRRADIATION 08/05/2019 HANSON DO, KIMMY Ot Z95.0 PRESENCE OF CARDIAC PACEMAKER 08/05/2019 HANSON DO, KIMMY Ot Z95.2 PRESENCE OF PROSTHETIC HEART VALVE 08/05/2019 HANSON DO, KIMMY Ot Z95.5 PRESENCE OF CORONARY ANGIOPLASTY IMPLANT 08/05/2019 MARGIE CANDELARIO, KIMMY Ot Z95.82 0 PERIPHERAL VASCULAR ANGIOPLASTY STATUS W 08/05/2019 HANSON DO, KIMMY Ot B96.20 UNSP ESCHERICHIA COLI THE CAUSE OF DI 08/05/2019 HANSON DO, KIMMY Ot 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 08/05/2019 HANSON DO, KIMMY Ot E11.40 TYPE 2 DIABETES MELLITUS WITH DIABETIC N 08/05/2019 HANSON DO, KIMMY Ot E11.51 TYPE 2 DIABETES W DIABETIC PERIPHERAL AN 08/05/2019 HANSON DO, KIMMY Ot E11.61 0 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 08/05/2019 HANSON DO, KIMMY Ot E11.64 9 TYPE 2 DIABETES MELLITUS WITH HYPOGLYCEM 08/05/2019 HANSON DO, KIMMY Ot E78.5 HYPERLIPIDEMIA, UNSPECIFIED 08/05/2019 HANSON DO, KIMMY Ot H54.62 UNQUALIFIED VISUAL LOSS, LEFT EYE, MYRNA 08/05/2019 HANSON DO, IKMMY Ot H91.90 UNSPECIFIED HEARING LOSS, UNSPECIFIED EA 08/05/2019 HANSON DO, KIMMY Ot 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 KDNY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 08/05/2019 HANSON DO, KIMMY Ot I25.10 ATHSCL HEART DISEASE OF [place] CORONARY 08/05/2019 HANSON DO, KIMMY Ot I48.0 PAROXYSMAL ATRIAL FIBRILLATION 08/05/2019 HANSON DO, KIMMY Ot I49.5 SICK SINUS SYNDROME 08/05/2019 HANSON DO, KIMMY Ot I50.9 HEART FAILURE, UNSPECIFIED 08/05/2019 HANSON DO, KIMMY Ot I73.9 PERIPHERAL VASCULAR DISEASE, UNSPECIFIED 08/05/2019 HANSON DO, KIMMY Ot K58.9 IRRITABLE BOWEL SYNDROME WITHOUT DIARRHE 08/05/2019 HANSON DO, KIMMY Ot N17.9 ACUTE KIDNEY FAILURE, UNSPECIFIED 08/05/2019 HANSON DO, KIMMY Ot N18.3 CHRONIC KIDNEY DISEASE, STAGE 3 (MODERAT 08/05/2019 HANSON DO, KIMMY Ot N39.0 URINARY TRACT INFECTION, SITE NOT SPECIF 08/05/2019 HANSON DO, KIMMY Ot R21 RASH AND OTHER NONSPECIFIC SKIN ERUPTION 08/05/2019 HANSON DO, KIMMY Ot Z16.12 EXTENDED SPECTRUM BETA LACTAMASE (ESBL) 08/05/2019 HANSON DO, KIMMY Ot 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 08/05/2019 HANSON DO, KIMMY Ot Z90.12 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 08/05/2019 HANSON DO, KIMMY Ot Z90.71 0 ACQUIRED ABSENCE OF BOTH CERVIX AND UTER 08/05/2019 HANSON DO, KIMMY Ot Z90.72 2 ACQUIRED ABSENCE OF OVARIES, BILATERAL 08/05/2019 HANSON DO, KIMMY Ot Z92.3 PERSONAL HISTORY OF IRRADIATION 08/05/2019 HANSON DO, KIMMY Ot Z95.0 PRESENCE OF CARDIAC PACEMAKER 08/05/2019 HANSON DO, KIMMY Ot Z95.2 PRESENCE OF PROSTHETIC HEART VALVE 08/05/2019 HANSON DO, KIMMY Ot Z95.5 PRESENCE OF CORONARY ANGIOPLASTY IMPLANT 08/05/2019 HANSON DO, KIMMY Ot Z95.82 0 PERIPHERAL VASCULAR ANGIOPLASTY STATUS W 08/09/2019 MARCELO ROJAS, JOE Sherman Ot D64.9 ANEMIA, UNSPECIFIED 08/10/2019 LOGAN BOLIVAR APRN Ot D64.9 ANEMIA, UNSPECIFIED 08/11/2019 JOE ROBERTSON MD Ot L98.9 DISORDER OF THE SKIN AND SUBCUTANEOUS TI Procedures Code Description Performed By Per formed On [id number] [place] SOPHIA OF CARDIAC SAMPL PRESSURE, L H 02/04/2019 [id number] ME ASUREMENT OF ARTERIAL PRESSURE, TERRAZAS 02/04/2019 [id number] [place] UOROSCOPY OF MULT COR ART USING L OSM 02/04/2019 [id number] ME ASURE OF CARDIAC SAMPL PRESSURE, L H 04/06/2019 [id number] FL UOROSCOPY OF MULT COR ART USING L OSM 04/06/[id number] KOWAL[place]I OF RIGHT PLEURAL CAVITY, PERCUT 05/04/2019 [id number] [place] NTROL BLEEDING IN NOSE SFT TISS, VIA O 07/29/2019 Results Test Result Range Complete urinalysis with reflex to cultu re - 12/26/16 07:50 Urine color determination YELLOW NRG Urine clarity determination SLIGHTLY CLOUDY NRG Urine pH measurement by test strip 5 5-9 Specific gravity of urine by test strip 1.020 1.016-1.022 Urine protein assay by test strip, semi-quantitative 2+ NEGATIVE Urine glucose detection by automated test strip 2+ NEGATIVE Erythrocytes detection in urine sediment by light micr oscopy 2+ NEGATIVE Urine ketones detection by automated test strip NE GATIVE NEGATIVE Urine nitrite detection by test strip POSITIVE NEGATIVE Urine total bilirubin detection by test strip NEGA TIVE NEGATIVE Urine urobilinogen measurement by automated test strip (mass/volume) NORMAL NORMAL Urine leukocyte esterase detection by dipstick 2+ NEGATIVE Automated urine sediment erythrocyte cou nt by microscopy (number/high power field) RARE NRG Automated urine sediment leukocyte count by microscopy (number/high power field) [HPF] NRG Bacteria detection in urine sediment by light microsco py LARGE NRG Squamous epithelial cells detection in u rine sediment by light microscopy 5-10 NRG Crystals detection in urine sediment by light microsco py NONE NRG Casts detection in urine sediment by light microscopy NONE NRG Mucus detection in urine sediment by light microscopy NEGATIVE NRG Complete urinalysis with reflex to culture YES NRG Bacterial urine culture - 12/26/16 07:50 Bacterial urine culture [id number] NRG COLONY COUNT >100,000/ML NRG FTX;REPORTABLE SENSITIVITY REPORTED 12/28 07:12 NRG Bacterial susceptibility panel - 7 07:50 Gentamicin susceptibility test by minimum inhibitory c oncentration <= NRG Trimethoprim/sulfamethoxazole susceptibi lity test by minimum inhibitoryconcentration <= NRG Ampicillin susceptibility test by minimum inhibitory c oncentration R NRG Tobramycin susceptibility test by minimum inhibitory c oncentration <= NRG Cefazolin susceptibility test by minimum inhibitory co ncentration <= NRG Ceftriaxone susceptibility test by minimum inhibitory concentration <= NRG Ampicillin/sulbactam susceptibility test by minimum inhibitory concentration 4 NRG Piperacillin/tazobactam susceptibility t est by minimum inhibitory concentration <= NRG Ciprofloxacin susceptibility test by minimum inhibitor y concentration <= NRG Meropenem susceptibility test by minimum inhibitory co ncentration <= NRG Nitrofurantoin susceptibility test by mi nimum inhibitory concentration 32 NRG Aztreonam susceptibility test by minimum inhibitory co ncentration <= NRG Extended spectrum beta lactamase (ESBL) producing bacteria susceptibility test by minimum inhibitory concentration - NRG Methicillin resistant Staphylococcus aur eus (MRSA) screening culture - 12/26/16 08:16 Methicillin resistant Staphylococcus aureus (MRSA) scr eening culture NEG NRG Comprehensive metabolic panel - 12/26/16 08:26 Serum or plasma sodium measurement (moles/volume) 141 mmol/L 135-145 Serum or plasma potassium measurement (moles/volume) 4.1 mmol/L 3.6-5.0 Serum or plasma chloride measurement (moles/volume) 105 mmol/L 98-107 Carbon dioxide 25 mmol/L 21-32 Serum or plasma anion gap determination (moles/volume) 11 mmol/L 5-14 Serum or plasma urea nitrogen measurement (mass/volume ) 23 mg/dL 7-18 Serum or plasma creatinine measurement (mass/volume) 1.47 mg/dL 0.60-1.30 Serum or plasma urea nitrogen/creatinine mass ratio 16 NRG Serum or plasma creatinine measurement w ith calculation of estimated glomerular filtration rate 34 NRG Serum or plasma glucose measurement (mass/volume) 161 mg/dL 70-105 Serum or plasma calcium measurement (mass/volume) 9.3 mg/dL 8.5-10.1 Serum or plasma total bilirubin measurement (mass/volu me) 0.5 mg/dL 0.1-1.0 Serum or plasma alkaline phosphatase ghanshyam surement (enzymatic activity/volume) 88 U/L 40-136 Serum or plasma aspartate aminotransfera se measurement (enzymatic activity/volume) 19 U/L 5-34 Serum [...] Serum or plasma cholesterol in HDL measurement (mass/v olume) 38 mg/dL 40-60 Cholesterol in LDL [mass/volume] in serum or plasma by direct assay 140 mg/dL 1-129 Serum or plasma cholesterol in VLDL measurement (mass/ volume) 29 mg/dL 5-40 PT panel in platelet poor plasma by coag ulation assay - 12/26/16 08:26 Prothrombin time (PT) in platelet poor plasma by coagu lation assay 13.0 s 12.2-14.7 INR in platelet poor plasma or blood by coagulation as say 1.0 0.8-1.4 Activated partial thromboplastin time (a PTT) in platelet poor plasma bycoagulation assay - 12/26/16 08:26 Activated partial thromboplastin time (a PTT) in platelet poor plasma bycoagulation assay 29 s 24-35 Complete blood count (CBC) with automate d white blood cell (WBC) differential - 12/26/16 08:26 Blood leukocytes automated count (number/volume) 7.1 10*3/uL 4.3-11.0 Blood erythrocytes automated count (number/volume) 5.66 10*6/uL 4.35-5.85 Venous blood hemoglobin measurement (mass/volume) 15.1 g/dL 11.5-16.0 Blood hematocrit (volume fraction) 47 % 35-52 Automated erythrocyte mean corpuscular volume 82 [ foz_us] 80-99 Automated erythrocyte mean corpuscular h emoglobin (mass per erythrocyte) 27 pg 25-34 Automated erythrocyte mean corpuscular h emoglobin concentration measurement (mass/volume) 32 g/dL 32-36 Automated erythrocyte distribution width ratio 17. 2 % 10.0- 14.5 Automated blood platelet count [...] 10*3 1.0-4.0 Blood monocytes automated count (number/volume) 0. 7 10*3 0.0-1.0 Automated eosinophil count 0.2 10*3/uL 0 .0-0.3 Automated blood basophil count (count/volume) 0.0 10*3/uL 0.0-0.1 Activated partial thromboplastin time (a PTT) in platelet poor plasma bycoagulation assay - 12/26/16 18:04 Activated partial thromboplastin time (a PTT) in platelet poor plasma bycoagulation assay 72 s 24-35 Activated partial thromboplastin time (a PTT) in platelet poor plasma bycoagulation assay - 12/26/16 19:36 Activated partial thromboplastin time (a PTT) in platelet poor plasma bycoagulation assay 35 s 24-35 Capillary blood glucose measurement by g lucometer (mass/volume) - 12/26/16 20:24 Capillary blood glucose measurement by glucometer (mas s/volume) 69 mg/dL 70-110 Capillary blood glucose measurement by g lucometer (mass/volume) - 12/26/16 21:23 Capillary blood glucose measurement by glucometer (mas s/volume) 81 mg/dL 70-110 Capillary blood glucose measurement by g lucometer (mass/volume) - 12/27/16 02:25 Capillary blood glucose measurement by glucometer (mas s/volume) 190 mg/dL 70-110 Automated blood complete blood count (he mogram) panel - 12/27/16 03:35 Blood leukocytes automated count (number/volume) 8.3 10*3/uL 4.3-11.0 Blood erythrocytes automated count (number/volume) 4.64 10*6/uL 4.35-5.85 Venous blood hemoglobin measurement (mass/volume) 12.5 g/dL 11.5-16.0 Blood hematocrit (volume fraction) 39 % 35-52 Automated erythrocyte mean corpuscular volume 83 [ foz_us] 80-99 Automated erythrocyte mean corpuscular h emoglobin (mass per erythrocyte) 27 pg 25-34 Automated erythrocyte mean corpuscular h emoglobin concentration measurement (mass/volume) 33 g/dL 32-36 Automated erythrocyte distribution width ratio 16. 8 % 10.0- 14.5 Automated blood platelet count (count/volume) 185 10*3/uL 130-400 Automated blood platelet mean volume measurement 10.7 [foz_us] 7.4-10.4 Whole blood basic metabolic panel - 12/18 03:35 Serum or plasma sodium measurement (moles/volume) 140 mmol/L 135-145 Serum or plasma potassium measurement (moles/volume) 4.1 mmol/L 3.6-5.0 Serum or plasma chloride measurement (moles/volume) 107 mmol/L 98-107 Carbon dioxide 22 mmol/L 21-32 Serum or plasma anion gap determination (moles/volume) 11 mmol/L 5-14 Serum or plasma urea nitrogen measurement (mass/volume ) 23 mg/dL 7-18 Serum or plasma creatinine measurement (mass/volume) 1.29 mg/dL 0.60-1.30 Serum or plasma urea nitrogen/creatinine mass ratio 18 NRG Serum or plasma creatinine measurement w ith calculation of estimated glomerular filtration rate 40 NRG Serum or plasma glucose measurement (mass/volume) 190 mg/dL 70-105 Serum or plasma calcium measurement (mass/volume) 8.5 mg/dL 8.5-10.1 Capillary blood glucose measurement by g lucometer (mass/volume) - 12/27/16 10:35 Capillary blood glucose measurement by glucometer (mas s/volume) 163 mg/dL 70-110 Complete urinalysis with reflex to cultu re - 08/09/17 16:23 Urine color determination YELLOW NRG Urine clarity determination CLEAR NR G Urine pH measurement by test strip 5 5-9 Specific gravity of urine by test strip 1.015 1.016-1.022 Urine protein assay by test strip, semi-quantitative NEGATIVE NEGATIVE Urine glucose detection by automated test strip NE GATIVE NEGATIVE Erythrocytes detection in urine sediment by light micr oscopy NEGATIVE NEGATIVE Urine ketones detection by automated test strip NE GATIVE NEGATIVE Urine nitrite detection by test strip NEGATIVE NEGATIVE Urine total bilirubin detection by test strip NEGA TIVE NEGATIVE Urine urobilinogen measurement by automated test strip (mass/volume) NORMAL NORMAL Urine leukocyte esterase detection by dipstick NEG ATIVE NEGATIVE Automated urine sediment erythrocyte cou nt by microscopy (number/high power field) NONE NRG Automated urine sediment leukocyte count by microscopy (number/high power field) NONE NRG Bacteria detection in urine sediment by light microsco py TRACE NRG Squamous epithelial cells detection in u rine sediment by light microscopy 2-5 NRG Crystals detection in urine sediment by light microsco py NONE NRG Casts detection in urine sediment by light microscopy PRESENT NRG Mucus detection in urine sediment by light microscopy NEGATIVE NRG Complete urinalysis with reflex to culture NO NRG Granular casts detection in urine sediment by light mi croscopy 2-5 NRG Influenza virus A and B antigen detectio n - 08/09/17 16:23 CALL POSITIVES (F1 HELP) DR PRATT NRG FLU RESULT POSITIVE FOR INFLUENZA B ANT IGEN, NEG FOR A ANTIGEN, BY IA NRG Complete blood count (CBC) with automate d white blood cell (WBC) differential - 08/09/17 16:30 Blood leukocytes automated count (number/volume) 3.2 10*3/uL 4.3-11.0 Blood erythrocytes automated count (number/volume) 5.61 10*6/uL 4.35-5.85 Venous blood hemoglobin measurement (mass/volume) 15.1 g/dL 11.5-16.0 Blood hematocrit (volume fraction) 45 % 35-52 Automated erythrocyte mean corpuscular volume 81 [ foz_us] 80-99 Automated erythrocyte mean corpuscular h emoglobin (mass per erythrocyte) 27 pg 25-34 Automated erythrocyte mean corpuscular h emoglobin concentration measurement (mass/volume) 33 g/dL 32-36 Automated erythrocyte distribution width ratio 15. 9 % 10.0- 14.5 Automated blood platelet count [...] 10*3 1.0-4.0 Blood monocytes automated count (number/volume) 0. 5 10*3 0.0-1.0 Automated eosinophil count 0.0 10*3/uL 0 .0-0.3 Automated blood basophil count (count/volume) 0.0 10*3/uL 0.0-0.1 Comprehensive metabolic panel - 08/09/17 16:30 Serum or plasma sodium measurement (moles/volume) 136 mmol/L 135-145 Serum or plasma potassium measurement (moles/volume) 4.0 mmol/L 3.6-5.0 Serum or plasma chloride measurement (moles/volume) 98 mmol/L 98-107 Carbon dioxide 26 mmol/L 21-32 Serum or plasma anion gap determination (moles/volume) 12 mmol/L 5-14 Serum or plasma urea nitrogen measurement (mass/volume ) 26 mg/dL 7-18 Serum or plasma creatinine measurement (mass/volume) 1.59 mg/dL 0.60-1.30 Serum or plasma urea nitrogen/creatinine mass ratio 16 NRG Serum or plasma creatinine measurement w ith calculation of estimated glomerular filtration rate 31 NRG Serum or plasma glucose measurement (mass/volume) 79 mg/dL 70-105 Serum or plasma calcium measurement (mass/volume) 9.1 mg/dL 8.5-10.1 Serum or plasma total bilirubin measurement (mass/volu me) 0.6 mg/dL 0.1-1.0 Serum or plasma alkaline phosphatase ghanshyam surement (enzymatic activity/volume) 84 U/L 40-136 Serum or plasma aspartate aminotransfera se measurement (enzymatic activity/volume) 47 U/L 5-34 Serum or plasma alanine aminotransferase measurement (enzymatic activity/volume) 29 U/L 0-55 Serum or plasma protein measurement (mass/volume) 7.9 g/dL 6.4-8.2 Serum or plasma albumin measurement (mass/volume) 3.9 g/dL 3.2-4.5 Automated blood complete blood count (he mogram) panel - 09/23/17 10:30 Blood leukocytes automated count (number/volume) 9.0 10*3/uL 4.3-11.0 Blood erythrocytes automated count (number/volume) 6.08 10*6/uL 4.35-5.85 Venous blood hemoglobin measurement (mass/volume) 15.6 g/dL 11.5-16.0 Blood hematocrit (volume fraction) 48 % 35-52 Automated erythrocyte mean corpuscular volume 79 [ foz_us] 80-99 Automated erythrocyte mean corpuscular h emoglobin (mass per erythrocyte) 26 pg 25-34 Automated erythrocyte mean corpuscular h emoglobin concentration measurement (mass/volume) 33 g/dL 32-36 Automated erythrocyte distribution width ratio 18. 7 % 10.0- 14.5 Automated blood platelet count (count/volume) 205 10*3/uL 130-400 Automated blood platelet mean volume measurement 9.8 [foz_us] 7.4-10.4 PT panel in platelet poor plasma by coag ulation assay - 09/23/17 10:30 Prothrombin time (PT) in platelet poor plasma by coagu lation assay 14.7 s 12.2-14.7 INR in platelet poor plasma or blood by coagulation as say 1.1 0.8-1.4 Activated partial thromboplastin time (a PTT) in platelet poor plasma bycoagulation assay - 09/23/17 10:30 Activated partial thromboplastin time (a PTT) in platelet poor plasma bycoagulation assay 29 s 24-35 Comprehensive metabolic panel - 09/23/17 10:30 Serum or plasma sodium measurement (moles/volume) 141 mmol/L 135-145 Serum or plasma potassium measurement (moles/volume) 3.7 mmol/L 3.6-5.0 Serum or plasma chloride measurement (moles/volume) 99 mmol/L 98-107 Carbon dioxide 31 mmol/L 21-32 Serum or plasma anion gap determination (moles/volume) 11 mmol/L 5-14 Serum or plasma urea nitrogen measurement (mass/volume ) 37 mg/dL 7-18 Serum or plasma creatinine measurement (mass/volume) 1.93 mg/dL 0.60-1.30 Serum or plasma urea nitrogen/creatinine mass ratio 19 NRG Serum or plasma creatinine measurement w ith calculation of estimated glomerular filtration rate 25 NRG Serum or plasma glucose measurement (mass/volume) 166 mg/dL 70-105 Serum or plasma calcium measurement (mass/volume) 10.1 mg/dL 8.5-10.1 Serum or plasma total bilirubin measurement (mass/volu me) 1.1 mg/dL 0.1-1.0 Serum or plasma alkaline phosphatase ghanshyam surement (enzymatic activity/volume) 84 U/L 40-136 Serum or plasma aspartate aminotransfera se measurement (enzymatic activity/volume) 17 U/L 5-34 Serum [...] Serum or plasma cholesterol in HDL measurement (mass/v olume) 32 mg/dL 40-60 Cholesterol in LDL [mass/volume] in serum or plasma by direct assay 79 mg/dL 1-129 Serum or plasma cholesterol in VLDL measurement (mass/ volume) 28 mg/dL 5-40 Methicillin resistant Staphylococcus aur eus (MRSA) screening culture - 09/23/17 10:30 Methicillin resistant Staphylococcus aureus (MRSA) scr eening culture NEG NRG Capillary blood glucose measurement by g lucometer (mass/volume) - 09/23/17 21:48 Capillary blood glucose measurement by glucometer (mas s/volume) 235 mg/dL 70-110 Automated blood complete blood count (he mogram) panel - 09/24/17 03:15 Blood leukocytes automated count (number/volume) 7.3 10*3/uL 4.3-11.0 Blood erythrocytes automated count (number/volume) 5.03 10*6/uL 4.35-5.85 Venous blood hemoglobin measurement (mass/volume) 13.0 g/dL 11.5-16.0 Blood hematocrit (volume fraction) 40 % 35-52 Automated erythrocyte mean corpuscular volume 80 [ foz_us] 80-99 Automated erythrocyte mean corpuscular h emoglobin (mass per erythrocyte) 26 pg 25-34 Automated erythrocyte mean corpuscular h emoglobin concentration measurement (mass/volume) 32 g/dL 32-36 Automated erythrocyte distribution width ratio 17. 5 % 10.0- 14.5 Automated blood platelet count (count/volume) 166 10*3/uL 130-400 Automated blood platelet mean volume measurement 10.4 [foz_us] 7.4-10.4 Whole blood basic metabolic panel - 03/06 03:15 Serum or plasma sodium measurement (moles/volume) 139 mmol/L 135-145 Serum or plasma potassium measurement (moles/volume) 3.7 mmol/L 3.6-5.0 Serum or plasma chloride measurement (moles/volume) 102 mmol/L 98-107 Carbon dioxide 28 mmol/L 21-32 Serum or plasma anion gap determination (moles/volume) 9 mmol/L 5-14 Serum or plasma urea nitrogen measurement (mass/volume ) 35 mg/dL 7-18 Serum or plasma creatinine measurement (mass/volume) 1.54 mg/dL 0.60-1.30 Serum or plasma urea nitrogen/creatinine mass ratio 23 NRG Serum or plasma creatinine measurement w ith calculation of estimated glomerular filtration rate 33 NRG Serum or plasma glucose measurement (mass/volume) 122 mg/dL 70-105 Serum or plasma calcium measurement (mass/volume) 8.8 mg/dL 8.5-10.1 Capillary blood glucose measurement by g lucometer (mass/volume) - 09/24/17 07:54 Capillary blood glucose measurement by glucometer (mas s/volume) 125 mg/dL 70-110 Complete blood count (CBC) with automate d white blood cell (WBC) differential - 12/22/17 19:20 Blood leukocytes automated count (number/volume) 9.7 10*3/uL 4.3-11.0 Blood erythrocytes automated count (number/volume) 4.96 10*6/uL 4.35-5.85 Venous blood hemoglobin measurement (mass/volume) 13.7 g/dL 11.5-16.0 Blood hematocrit (volume fraction) 41 % 35-52 Automated erythrocyte mean corpuscular volume 83 [ foz_us] 80-99 Automated erythrocyte mean corpuscular h emoglobin (mass per erythrocyte) 28 pg 25-34 Automated erythrocyte mean corpuscular h emoglobin concentration measurement (mass/volume) 33 g/dL 32-36 Automated erythrocyte distribution width ratio 15. 8 % 10.0- 14.5 Automated blood platelet count [...] 10*3 1.0-4.0 Blood monocytes automated count (number/volume) 1. 1 10*3 0.0-1.0 Automated eosinophil count 0.2 10*3/uL 0 .0-0.3 Automated blood basophil count (count/volume) 0.0 10*3/uL 0.0-0.1 PT panel in platelet poor plasma by coag ulation assay - 12/22/17 19:20 Prothrombin time (PT) in platelet poor plasma by coagu lation assay 15.2 s 12.2-14.7 INR in platelet poor plasma or blood by coagulation as say 1.2 0.8-1.4 Activated partial thromboplastin time (a PTT) in platelet poor plasma bycoagulation assay - 12/22/17 19:20 Activated partial thromboplastin time (a PTT) in platelet poor plasma bycoagulation assay 30 s 24-35 Comprehensive metabolic panel - 12/22/17 19:20 Serum or plasma sodium measurement (moles/volume) 135 mmol/L 135-145 Serum or plasma potassium measurement (moles/volume) 3.6 mmol/L 3.6-5.0 Serum or plasma chloride measurement (moles/volume) 90 mmol/L 98-107 Carbon dioxide 26 mmol/L 21-32 Serum or plasma anion gap determination (moles/volume) 19 mmol/L 5-14 Serum or plasma urea nitrogen measurement (mass/volume ) 32 mg/dL 7-18 Serum or plasma creatinine measurement (mass/volume) 1.94 mg/dL 0.60-1.30 Serum or plasma urea nitrogen/creatinine mass ratio 16 NRG Serum or plasma creatinine measurement w ith calculation of estimated glomerular filtration rate 25 NRG Serum or plasma glucose measurement (mass/volume) 252 mg/dL 70-105 Serum or plasma calcium measurement (mass/volume) 10.0 mg/dL 8.5-10.1 Serum or plasma total bilirubin measurement (mass/volu me) 0.8 mg/dL 0.1-1.0 Serum or plasma alkaline phosphatase ghanshyam surement (enzymatic activity/volume) 91 U/L 40-136 Serum or plasma aspartate aminotransfera se measurement (enzymatic activity/volume) 16 U/L 5-34 Serum or plasma alanine aminotransferase measurement (enzymatic activity/volume) 12 U/L 0-55 Serum or plasma protein measurement (mass/volume) 8.0 g/dL 6.4-8.2 Serum or plasma albumin measurement (mass/volume) 3.7 g/dL 3.2-4.5 Magnesium - 12/22/17 19:20 Magnesium 1.7 mg/dL 1.8-2.4 Serum or plasma C reactive protein measu rement (mass/volume) - 12/22/17 19:20 Serum or plasma C reactive protein measurement (mass/v olume) 8.25 mg/dL 0.00-0.50 Serum or plasma troponin i.cardiac measu rement (mass/volume) - 12/22/17 19:20 Serum or plasma troponin i.cardiac measurement (mass/v olume) < ng/mL <0.30 Myoglobin, serum - 12/22/17 19:20 Myoglobin, serum 158.8 ng/mL 10.0-92.0 Serum or plasma lithium measurement (mol es/volume) - 12/22/17 19:20 BNP level 397.0 pg/mL <100.0 Capillary blood glucose measurement by g lucometer (mass/volume) - 12/23/17 05:13 Capillary blood glucose measurement by glucometer (mas s/volume) 102 mg/dL 70-110 Complete blood count (CBC) with automate d white blood cell (WBC) differential - 12/23/17 05:27 Blood leukocytes automated count (number/volume) 8.7 10*3/uL 4.3-11.0 Blood erythrocytes automated count (number/volume) 4.62 10*6/uL 4.35-5.85 Venous blood hemoglobin measurement (mass/volume) 13.3 g/dL 11.5-16.0 Blood hematocrit (volume fraction) 39 % 35-52 Automated erythrocyte mean corpuscular volume 84 [ foz_us] 80-99 Automated erythrocyte mean corpuscular h emoglobin (mass per erythrocyte) 29 pg 25-34 Automated erythrocyte mean corpuscular h emoglobin concentration measurement (mass/volume) 34 g/dL 32-36 Automated erythrocyte distribution width ratio 15. 6 % 10.0- 14.5 Automated blood platelet count [...] 10*3 1.0-4.0 Blood monocytes automated count (number/volume) 0. 9 10*3 0.0-1.0 Automated eosinophil count 0.3 10*3/uL 0 .0-0.3 Automated blood basophil count (count/volume) 0.0 10*3/uL 0.0-0.1 Comprehensive metabolic panel - 12/23/17 05:27 Serum or plasma sodium measurement (moles/volume) 139 mmol/L 135-145 Serum or plasma potassium measurement (moles/volume) 3.3 mmol/L 3.6-5.0 Serum or plasma chloride measurement (moles/volume) 95 mmol/L 98-107 Carbon dioxide 31 mmol/L 21-32 Serum or plasma anion gap determination (moles/volume) 13 mmol/L 5-14 Serum or plasma urea nitrogen measurement (mass/volume ) 31 mg/dL 7-18 Serum or plasma creatinine measurement (mass/volume) 1.83 mg/dL 0.60-1.30 Serum or plasma urea nitrogen/creatinine mass ratio 17 NRG Serum or plasma creatinine measurement w ith calculation of estimated glomerular filtration rate 27 NRG Serum or plasma glucose measurement (mass/volume) 94 mg/dL 70-105 Serum or plasma calcium measurement (mass/volume) 9.8 mg/dL 8.5-10.1 Serum or plasma total bilirubin measurement (mass/volu me) 0.6 mg/dL 0.1-1.0 Serum or plasma alkaline phosphatase ghanshyam surement (enzymatic activity/volume) 84 U/L 40-136 Serum or plasma aspartate aminotransfera se measurement (enzymatic activity/volume) 17 U/L 5-34 Serum or plasma alanine aminotransferase measurement (enzymatic activity/volume) 12 U/L 0-55 Serum or plasma protein measurement (mass/volume) 7.6 g/dL 6.4-8.2 Serum or plasma albumin measurement (mass/volume) 3.7 g/dL 3.2-4.5 Magnesium - 12/23/17 05:27 Magnesium 2.0 mg/dL 1.8-2.4 Serum or plasma troponin i.cardiac measu rement (mass/volume) - 12/23/17 05:27 Serum or plasma troponin i.cardiac measurement (mass/v olume) < ng/mL <0.30 Lipid 1996 panel - 12/23/17 05:27 Serum or plasma triglyceride measurement (mass/volume) 136 mg/dL <150 Serum or plasma cholesterol measurement (mass/volume) 135 mg/dL < 200 Serum or plasma cholesterol in HDL measurement (mass/v olume) 25 mg/dL 40-60 Cholesterol in LDL [mass/volume] in serum or plasma by direct assay 86 mg/dL 1-129 Serum or plasma cholesterol in VLDL measurement (mass/ volume) 27 mg/dL 5-40 Capillary blood glucose measurement by g lucometer (mass/volume) - 12/23/17 11:01 Capillary blood glucose measurement by glucometer (mas s/volume) 229 mg/dL 70-110 Complete urinalysis with reflex to cultu re - 02/03/18 15:55 Urine color determination YELLOW NRG Urine clarity determination CLEAR NR G Urine pH measurement by test strip 8 5-9 Specific gravity of urine by test strip 1.010 1.016-1.022 Urine protein assay by test strip, semi-quantitative NEGATIVE NEGATIVE Urine glucose detection by automated test strip 1+ NEGATIVE Erythrocytes detection in urine sediment by light micr oscopy NEGATIVE NEGATIVE Urine ketones detection by automated test strip NE GATIVE NEGATIVE Urine nitrite detection by test strip NEGATIVE NEGATIVE Urine total bilirubin detection by test strip NEGA TIVE NEGATIVE Urine urobilinogen measurement by automated test strip (mass/volume) NORMAL NORMAL Urine leukocyte esterase detection by dipstick 1+ NEGATIVE Automated urine sediment erythrocyte cou nt by microscopy (number/high power field) NONE NRG Automated urine sediment leukocyte count by microscopy (number/high power field) [HPF] NRG Bacteria detection in urine sediment by light microsco py LARGE NRG Squamous epithelial cells detection in u rine sediment by light microscopy 0-2 NRG Crystals detection in urine sediment by light microsco py NONE NRG Casts detection in urine sediment by light microscopy NONE NRG Mucus detection in urine sediment by light microscopy NEGATIVE NRG Complete urinalysis with reflex to culture NO NRG Bacterial urine culture - 02/03/18 15:55 Bacterial urine culture [id number] NRG COLONY COUNT >100,000/ML NRG FTX;REPORTABLE RML SENSITIVITY REPORTED 02/06/18 8: 05 NRG RML Sensitivity Panel - 02/03/18 15:55 Gentamicin susceptibility test by minimum inhibitory c oncentration <= NRG Trimethoprim/sulfamethoxazole susceptibi lity test by minimum inhibitoryconcentration <= NRG Levofloxacin susceptibility test by minimum inhibitory concentration <= NRG Ampicillin susceptibility test by minimum inhibitory c oncentration > NRG Cefazolin susceptibility test by minimum inhibitory co ncentration 2 NRG Ceftriaxone susceptibility test by minimum inhibitory concentration <= NRG Ciprofloxacin susceptibility test by minimum inhibitor y concentration <= NRG Meropenem susceptibility test by minimum inhibitory co ncentration <= NRG Nitrofurantoin susceptibility test by mi nimum inhibitory concentration 32 NRG Amoxicillin and clavulanate potassium susc CHERRY <= NRG Complete blood count (CBC) with automate d white blood cell (WBC) differential - 02/03/18 16:10 Blood leukocytes automated count (number/volume) 8.4 10*3/uL 4.3-11.0 Blood erythrocytes automated count (number/volume) 5.55 10*6/uL 4.35-5.85 Venous blood hemoglobin measurement (mass/volume) 15.6 g/dL 11.5-16.0 Blood hematocrit (volume fraction) 45 % 35-52 Automated erythrocyte mean corpuscular volume 82 [ foz_us] 80-99 Automated erythrocyte mean corpuscular h emoglobin (mass per erythrocyte) 28 pg 25-34 Automated erythrocyte mean corpuscular h emoglobin concentration measurement (mass/volume) 34 g/dL 32-36 Automated erythrocyte distribution width ratio 15. 0 % 10.0- 14.5 Automated blood platelet count [...] 10*3 1.0-4.0 Blood monocytes automated count (number/volume) 0. 7 10*3 0.0-1.0 Automated eosinophil count 0.1 10*3/uL 0 .0-0.3 Automated blood basophil count (count/volume) 0.0 10*3/uL 0.0-0.1 Fibrin D-dimer FEU measurement in platel et poor plasma (mass/volume) - 02/03/18 16:10 Fibrin [...] 5-14 Serum or plasma urea nitrogen measurement (mass/volume ) 31 mg/dL 7-18 Serum or plasma creatinine measurement (mass/volume) 1.72 mg/dL 0.60-1.30 Serum or plasma urea nitrogen/creatinine mass ratio 18 NRG Serum or plasma creatinine measurement w ith calculation of estimated glomerular filtration rate 29 NRG Serum or plasma glucose measurement (mass/volume) 246 mg/dL 70-105 Serum or plasma calcium measurement (mass/volume) 9.9 mg/dL 8.5-10.1 Serum or plasma total bilirubin measurement (mass/volu me) 0.7 mg/dL 0.1-1.0 Serum or plasma alkaline phosphatase ghanshyam surement (enzymatic activity/volume) 80 U/L 40-136 Serum or plasma aspartate aminotransfera se measurement (enzymatic activity/volume) 16 U/L 5-34 Serum or plasma alanine aminotransferase measurement (enzymatic activity/volume) 11 U/L 0-55 Serum or plasma protein measurement (mass/volume) 7.8 g/dL 6.4-8.2 Serum or plasma albumin measurement (mass/volume) 4.0 g/dL 3.2-4.5 Magnesium - 02/03/18 16:10 Magnesium 1.8 mg/dL 1.8-2.4 Blood lactic acid measurement (moles/vol ume) - 02/03/18 16:10 Blood lactic acid measurement (moles/volume) 2.87 mmol/L 0.50-2.00 Serum or plasma lactate measurement (mol es/volume) - 02/03/18 18:10 Serum or plasma lactate measurement (moles/volume) 1.95 mmol/L 0.50-2.00 Bacterial blood culture - 02/03/18 18:35 Bacterial blood culture NG NRG Capillary blood glucose measurement by g lucometer (mass/volume) - 02/03/18 21:00 Capillary blood glucose measurement by glucometer (mas s/volume) 171 mg/dL 70-110 Capillary blood glucose measurement by g lucometer (mass/volume) - 02/04/18 05:15 Capillary blood glucose measurement by glucometer (mas s/volume) 110 mg/dL 70-110 Complete blood count (CBC) with automate d white blood cell (WBC) differential - 02/04/18 09:55 Blood leukocytes automated count (number/volume) 7.4 10*3/uL 4.3-11.0 Blood erythrocytes automated count (number/volume) 5.10 10*6/uL 4.35-5.85 Venous blood hemoglobin measurement (mass/volume) 14.1 g/dL 11.5-16.0 Blood hematocrit (volume fraction) 43 % 35-52 Automated erythrocyte mean corpuscular volume 85 [ foz_us] 80-99 Automated erythrocyte mean corpuscular h emoglobin (mass per erythrocyte) 28 pg 25-34 Automated erythrocyte mean corpuscular h emoglobin concentration measurement (mass/volume) 33 g/dL 32-36 Automated erythrocyte distribution width ratio 15. 5 % 10.0- 14.5 Automated blood platelet count [...] 10*3 1.0-4.0 Blood monocytes automated count (number/volume) 0. 8 10*3 0.0-1.0 Automated eosinophil count 0.2 10*3/uL 0 .0-0.3 Automated blood basophil count (count/volume) 0.0 10*3/uL 0.0-0.1 Comprehensive metabolic panel - 02/04/18 09:55 Serum or plasma sodium measurement (moles/volume) 139 mmol/L 135-145 Serum or plasma potassium measurement (moles/volume) 3.9 mmol/L 3.6-5.0 Serum or plasma chloride measurement (moles/volume) 102 mmol/L 98-107 Carbon dioxide 29 mmol/L 21-32 Serum or plasma anion gap determination (moles/volume) 8 mmol/L 5-14 Serum or plasma urea nitrogen measurement (mass/volume ) 31 mg/dL 7-18 Serum or plasma creatinine measurement (mass/volume) 1.62 mg/dL 0.60-1.30 Serum or plasma urea nitrogen/creatinine mass ratio 19 NRG Serum or plasma creatinine measurement w ith calculation of estimated glomerular filtration rate 31 NRG Serum or plasma glucose measurement (mass/volume) 120 mg/dL 70-105 Serum or plasma calcium measurement (mass/volume) 9.1 mg/dL 8.5-10.1 Serum or plasma total bilirubin measurement (mass/volu me) 0.6 mg/dL 0.1-1.0 Serum or plasma alkaline phosphatase ghanshyam surement (enzymatic activity/volume) 68 U/L 40-136 Serum or plasma aspartate aminotransfera se measurement (enzymatic activity/volume) 17 U/L 5-34 Serum or plasma alanine aminotransferase measurement (enzymatic activity/volume) 11 U/L 0-55 Serum or plasma protein measurement (mass/volume) 6.8 g/dL 6.4-8.2 Serum or plasma albumin measurement (mass/volume) 3.5 g/dL 3.2-4.5 Capillary blood glucose measurement by g lucometer (mass/volume) - 02/04/18 10:57 Capillary blood glucose measurement by glucometer (mas s/volume) 122 mg/dL 70-110 Capillary blood glucose measurement by g lucometer (mass/volume) - 02/04/18 16:03 Capillary blood glucose measurement by glucometer (mas s/volume) 154 mg/dL 70-110 Capillary blood glucose measurement by g lucometer (mass/volume) - 02/04/18 20:42 Capillary blood glucose measurement by glucometer (mas s/volume) 133 mg/dL 70-110 Capillary blood glucose measurement by g lucometer (mass/volume) - 02/05/18 05:11 Capillary blood glucose measurement by glucometer (mas s/volume) 96 mg/dL 70-110 Complete blood count (CBC) with automate d white blood cell (WBC) differential - 02/05/18 05:47 Blood leukocytes automated count (number/volume) 7.5 10*3/uL 4.3-11.0 Blood erythrocytes automated count (number/volume) 4.56 10*6/uL 4.35-5.85 Venous blood hemoglobin measurement (mass/volume) 13.1 g/dL 11.5-16.0 Blood hematocrit (volume fraction) 39 % 35-52 Automated erythrocyte mean corpuscular volume 85 [ foz_us] 80-99 Automated erythrocyte mean corpuscular h emoglobin (mass per erythrocyte) 29 pg 25-34 Automated erythrocyte mean corpuscular h emoglobin concentration measurement (mass/volume) 34 g/dL 32-36 Automated erythrocyte distribution width ratio 14. 9 % 10.0- 14.5 Automated blood platelet count [...] 10*3 1.0-4.0 Blood monocytes automated count (number/volume) 0. 7 10*3 0.0-1.0 Automated eosinophil count 0.2 10*3/uL 0 .0-0.3 Automated blood basophil count (count/volume) 0.0 10*3/uL 0.0-0.1 Comprehensive metabolic panel - 02/05/18 05:47 Serum or plasma sodium measurement (moles/volume) 138 mmol/L 135-145 Serum or plasma potassium measurement (moles/volume) 4.2 mmol/L 3.6-5.0 Serum or plasma chloride measurement (moles/volume) 107 mmol/L 98-107 Carbon dioxide 20 mmol/L 21-32 Serum or plasma anion gap determination (moles/volume) 11 mmol/L 5-14 Serum or plasma urea nitrogen measurement (mass/volume ) 23 mg/dL 7-18 Serum or plasma creatinine measurement (mass/volume) 1.28 mg/dL 0.60-1.30 Serum or plasma urea nitrogen/creatinine mass ratio 18 NRG Serum or plasma creatinine measurement w ith calculation of estimated glomerular filtration rate 40 NRG Serum or plasma glucose measurement (mass/volume) 99 mg/dL 70-105 Serum or plasma calcium measurement (mass/volume) 8.8 mg/dL 8.5-10.1 Serum or plasma total bilirubin measurement (mass/volu me) 0.4 mg/dL 0.1-1.0 Serum or plasma alkaline phosphatase ghanshyam surement (enzymatic activity/volume) 58 U/L 40-136 Serum or plasma aspartate aminotransfera se measurement (enzymatic activity/volume) 17 U/L 5-34 Serum or plasma alanine aminotransferase measurement (enzymatic activity/volume) 8 U/L 0-55 Serum or plasma protein measurement (mass/volume) 6.1 g/dL 6.4-8.2 Serum or plasma albumin measurement (mass/volume) 3.3 g/dL 3.2-4.5 Capillary blood glucose measurement by g lucometer (mass/volume) - 02/05/18 11:01 Capillary blood glucose measurement by glucometer (mas s/volume) 162 mg/dL 70-110 Automated blood complete blood count (he mogram) panel - 06/16/18 07:22 Blood leukocytes automated count (number/volume) 10.2 10*3/uL 4.3-11.0 Blood erythrocytes automated count (number/volume) 5.00 10*6/uL 4.35-5.85 Venous blood hemoglobin measurement (mass/volume) 14.2 g/dL 11.5-16.0 Blood hematocrit (volume fraction) 43 % 35-52 Automated erythrocyte mean corpuscular volume 86 [ foz_us] 80-99 Automated erythrocyte mean corpuscular h emoglobin (mass per erythrocyte) 28 pg 25-34 Automated erythrocyte mean corpuscular h emoglobin concentration measurement (mass/volume) 33 g/dL 32-36 Automated erythrocyte distribution width ratio 16. 1 % 10.0- 14.5 Automated blood platelet count [...] 5-14 Serum or plasma urea nitrogen measurement (mass/volume ) 39 mg/dL 7-18 Serum or plasma creatinine measurement (mass/volume) 1.91 mg/dL 0.60-1.30 Serum or plasma urea nitrogen/creatinine mass ratio 20 NRG Serum or plasma creatinine measurement w ith calculation of estimated glomerular filtration rate 25 NRG Serum or plasma glucose measurement (mass/volume) 113 mg/dL 70-105 Serum or plasma calcium measurement (mass/volume) 9.7 mg/dL 8.5-10.1 Serum or plasma total bilirubin measurement (mass/volu me) 0.6 mg/dL 0.1-1.0 Serum or plasma alkaline phosphatase ghanshyam surement (enzymatic activity/volume) 70 U/L 40-136 Serum or plasma aspartate aminotransfera se measurement (enzymatic activity/volume) 18 U/L 5-34 Serum [...] Serum or plasma cholesterol in HDL measurement (mass/v olume) 35 mg/dL 40-60 Cholesterol in LDL [mass/volume] in serum or plasma by direct assay 64 mg/dL 1-129 Serum or plasma cholesterol in VLDL measurement (mass/ volume) 24 mg/dL 5-40 PT panel in platelet poor plasma by coag ulation assay - 06/16/18 07:22 Prothrombin time (PT) in platelet poor plasma by coagu lation assay 14.2 s 12.2-14.7 INR in platelet poor plasma or blood by coagulation as say 1.1 0.8-1.4 Activated partial thromboplastin time (a PTT) in platelet poor plasma bycoagulation assay - 06/16/18 07:22 Activated partial thromboplastin time (a PTT) in platelet poor plasma bycoagulation assay 31 s 24-35 Methicillin resistant Staphylococcus aur eus (MRSA) screening culture - 06/16/18 07:22 Methicillin resistant Staphylococcus aureus (MRSA) scr eening culture NEG NRG Complete urinalysis with reflex to cultu re - 12/08/18 15:30 Urine color determination YELLOW NRG Urine clarity determination CLEAR NR G Urine pH measurement by test strip 7 5-9 Specific gravity of urine by test strip 1.010 1.016-1.022 Urine protein assay by test strip, semi-quantitative 1+ NEGATIVE Urine glucose detection by automated test strip NE GATIVE NEGATIVE Erythrocytes detection in urine sediment by light micr oscopy NEGATIVE NEGATIVE Urine ketones detection by automated test strip NE GATIVE NEGATIVE Urine nitrite detection by test strip NEGATIVE NEGATIVE Urine total bilirubin detection by test strip NEGA TIVE NEGATIVE Urine urobilinogen measurement by automated test strip (mass/volume) NORMAL NORMAL Urine leukocyte esterase detection by dipstick 1+ NEGATIVE Automated urine sediment erythrocyte cou nt by microscopy (number/high power field) NONE NRG Automated urine sediment leukocyte count by microscopy (number/high power field) [HPF] NRG Bacteria detection in urine sediment by light microsco py MODERATE NRG Crystals detection in urine sediment by light microsco py NONE NRG Casts detection in urine sediment by light microscopy NONE NRG Mucus detection in urine sediment by light microscopy NEGATIVE NRG Complete urinalysis with reflex to culture YES NRG Bacterial urine culture - 12/08/18 15:30 Bacterial urine culture [id number] NRG COLONY COUNT >100,000/ML NRG FTX;REPORTABLE SUSCEPTIBILITY REPORTED 12-10-18 05. NRG RML Sensitivity Panel - 12/08/18 15:30 Gentamicin susceptibility test by minimum inhibitory c oncentration <= NRG Trimethoprim/sulfamethoxazole susceptibi lity test by minimum inhibitoryconcentration <= NRG Levofloxacin susceptibility test by minimum inhibitory concentration <= NRG Ampicillin susceptibility test by minimum inhibitory c oncentration > NRG Cefazolin susceptibility test by minimum inhibitory co ncentration <= NRG Ceftriaxone susceptibility test by minimum inhibitory concentration <= NRG Ciprofloxacin susceptibility test by minimum inhibitor y concentration <= NRG Meropenem susceptibility test by minimum inhibitory co ncentration <= NRG Nitrofurantoin susceptibility test by mi nimum inhibitory concentration <= NRG Amoxicillin and clavulanate potassium susc CHERRY <= NRG Complete blood count (CBC) with automate d white blood cell (WBC) differential - 02/02/19 13:55 Blood leukocytes automated count (number/volume) 10.1 10*3/uL 4.3-11.0 Blood erythrocytes automated count (number/volume) 5.83 10*6/uL 4.35-5.85 Venous blood hemoglobin measurement (mass/volume) 15.3 g/dL 11.5-16.0 Blood hematocrit (volume fraction) 46 % 35-52 Automated erythrocyte mean corpuscular volume 79 [ foz_us] 80-99 Automated erythrocyte mean corpuscular h emoglobin (mass per erythrocyte) 26 pg 25-34 Automated erythrocyte mean corpuscular h emoglobin concentration measurement (mass/volume) 33 g/dL 32-36 Automated erythrocyte distribution width ratio 18. 2 % 10.0- 14.5 Automated blood platelet count (count/volume) 196 10*3/uL 130-400 Automated blood platelet mean volume measurement 10.4 [foz_us] 7.4-10.4 Automated blood neutrophils/100 leukocytes 62 % 42-75 Automated blood lymphocytes/100 leukocytes 26 % 12-44 Blood monocytes/100 leukocytes 9 % 0-12 Automated blood eosinophils/100 leukocytes 2 % 0-10 Automated blood basophils/100 leukocytes 0 % 0-10 Blood neutrophils automated count (number/volume) 6.3 10*3 1.8-7.8 Blood lymphocytes automated count (number/volume) 2.7 10*3 1.0-4.0 Blood monocytes automated count (number/volume) 0. 9 10*3 0.0-1.0 Automated eosinophil count 0.2 10*3/uL 0 .0-0.3 Automated blood basophil count (count/volume) 0.0 10*3/uL 0.0-0.1 PT panel in platelet poor plasma by coag ulation assay - 02/02/19 13:55 Prothrombin time (PT) in platelet poor plasma by coagu lation assay 14.4 s 12.2-14.7 INR in platelet poor plasma or blood by coagulation as say 1.1 0.8-1.4 Activated partial thromboplastin time (a PTT) in platelet poor plasma bycoagulation assay - 02/02/19 13:55 Activated partial thromboplastin time (a PTT) in platelet poor plasma bycoagulation assay 26 s 24-35 Comprehensive metabolic panel - 02/02/19 13:55 Serum or plasma sodium measurement (moles/volume) 134 mmol/L 135-145 Serum or plasma potassium measurement (moles/volume) 2.9 mmol/L 3.6-5.0 Serum or plasma chloride measurement (moles/volume) 84 mmol/L 98-107 Carbon dioxide 30 mmol/L 21-32 Serum or plasma anion gap determination (moles/volume) 20 mmol/L 5-14 Serum or plasma urea nitrogen measurement (mass/volume ) 55 mg/dL 7-18 Serum or plasma creatinine measurement (mass/volume) 2.69 mg/dL 0.60-1.30 Serum or plasma urea nitrogen/creatinine mass ratio 20 NRG Serum or plasma creatinine measurement w ith calculation of estimated glomerular filtration rate 17 NRG Serum or plasma glucose measurement (mass/volume) 204 mg/dL 70-105 Serum or plasma calcium measurement (mass/volume) 10.6 mg/dL 8.5-10.1 Serum or plasma total bilirubin measurement (mass/volu me) 0.7 mg/dL 0.1-1.0 Serum or plasma alkaline phosphatase ghanshyam surement (enzymatic activity/volume) 78 U/L 40-136 Serum or plasma aspartate aminotransfera se measurement (enzymatic activity/volume) 26 U/L 5-34 Serum or plasma alanine aminotransferase measurement (enzymatic activity/volume) 16 U/L 0-55 Serum or plasma protein measurement (mass/volume) 8.1 g/dL 6.4-8.2 Serum or plasma albumin measurement (mass/volume) 4.2 g/dL 3.2-4.5 CALCIUM CORRECTED 10.4 mg/dL 8.5-10.1 Serum or plasma troponin i.cardiac measu rement (mass/volume) - 02/02/19 13:55 Serum or plasma troponin i.cardiac measurement (mass/v olume) 0.814 ng/mL <0.028 Serum or plasma lithium measurement (mol es/volume) - 02/02/19 13:55 BNP PT 422.1 pg/mL <100.0 Magnesium - 02/02/19 13:55 Magnesium 2.0 mg/dL 1.8-2.4 Blood lactic acid measurement (moles/vol ume) - 02/02/19 14:20 Blood lactic acid measurement (moles/volume) 4.70 mmol/L 0.50-2.00 Bacterial blood culture - 02/02/19 14:20 Bacterial blood culture NG NRG Bacterial blood culture - 02/02/19 14:40 Bacterial blood culture NG NRG Complete urinalysis with reflex to cultu re - 02/02/19 14:53 Urine color determination YELLOW NRG Urine clarity determination SLIGHTLY CLOUDY NRG Urine pH measurement by test strip 7 5-9 Specific gravity of urine by test strip 1.005 1.016-1.022 Urine protein assay by test strip, semi-quantitative 1+ NEGATIVE Urine glucose detection by automated test strip NE GATIVE NEGATIVE Erythrocytes detection in urine sediment by light micr oscopy 2+ NEGATIVE Urine ketones detection by automated test strip NE GATIVE NEGATIVE Urine nitrite detection by test strip NEGATIVE NEGATIVE Urine total bilirubin detection by test strip NEGA TIVE NEGATIVE Urine urobilinogen measurement by automated test strip (mass/volume) NORMAL NORMAL Urine leukocyte esterase detection by dipstick NEG ATIVE NEGATIVE Automated urine sediment erythrocyte cou nt by microscopy (number/high power field) NONE NRG Automated urine sediment leukocyte count by microscopy (number/high power field) RARE NRG Bacteria detection in urine sediment by light microsco py LARGE NRG Squamous epithelial cells detection in u rine sediment by light microscopy 2-5 NRG Crystals detection in urine sediment by light microsco py PRESENT NRG Casts detection in urine sediment by light microscopy NONE NRG Mucus detection in urine sediment by light microscopy NEGATIVE NRG Complete urinalysis with reflex to culture CULTURE PENDING NRG Amorphous sediment detection in urine sediment by ligh t microscopy FEW PARIS PHOSPHATE NRG Bacterial urine culture - 02/02/19 14:53 Bacterial urine culture [id number] NRG COLONY COUNT >100,000/ML NRG FTX;REPORTABLE SUSCEPTIBILITY REPORTED 02-04-19 05. NRG Dirithromycin susceptibility test by dis k diffusion - 02/02/19 14:53 Gentamicin susceptibility test by minimum inhibitory c oncentration <= NRG Trimethoprim/sulfamethoxazole susceptibi lity test by minimum inhibitoryconcentration <= NRG Levofloxacin susceptibility test by minimum inhibitory concentration <= NRG Ampicillin susceptibility test by minimum inhibitory c oncentration 8 NRG Cefazolin susceptibility test by minimum inhibitory co ncentration <= NRG Ceftriaxone susceptibility test by minimum inhibitory concentration <= NRG Ciprofloxacin susceptibility test by minimum inhibitor y concentration <= NRG Meropenem susceptibility test by minimum inhibitory co ncentration <= NRG Nitrofurantoin susceptibility test by mi nimum inhibitory concentration <= NRG Amoxicillin and clavulanate potassium susc CHERRY <= NRG Serum or plasma lactate measurement (mol es/volume) - 02/02/19 16:20 Serum or plasma lactate measurement (moles/volume) 3.17 mmol/L 0.50-2.00 Serum or plasma troponin i.cardiac measu rement (mass/volume) - 02/02/19 20:00 Serum or plasma troponin i.cardiac measurement (mass/v olume) 1.278 ng/mL <0.028 Capillary blood glucose measurement by g lucometer (mass/volume) - 02/02/19 21:37 Capillary blood glucose measurement by glucometer (mas s/volume) 283 mg/dL 70-110 Complete blood count (CBC) with automate d white blood cell (WBC) differential - 02/03/19 02:00 Blood leukocytes automated count (number/volume) 9.0 10*3/uL 4.3-11.0 Blood erythrocytes automated count (number/volume) 4.82 10*6/uL 4.35-5.85 Venous blood hemoglobin measurement (mass/volume) 12.7 g/dL 11.5-16.0 Blood hematocrit (volume fraction) 39 % 35-52 Automated erythrocyte mean corpuscular volume 81 [ foz_us] 80-99 Automated erythrocyte mean corpuscular h emoglobin (mass per erythrocyte) 26 pg 25-34 Automated erythrocyte mean corpuscular h emoglobin concentration measurement (mass/volume) 33 g/dL 32-36 Automated erythrocyte distribution width ratio 17. 6 % 10.0- 14.5 Automated blood platelet count (count/volume) 180 10*3/uL 130-400 Automated blood platelet mean volume measurement 10.3 [foz_us] 7.4-10.4 Automated blood neutrophils/100 leukocytes 62 % 42-75 Automated blood lymphocytes/100 leukocytes 24 % 12-44 Blood monocytes/100 leukocytes 11 % 0-12 Automated blood eosinophils/100 leukocytes 2 % 0-10 Automated blood basophils/100 leukocytes 0 % 0-10 Blood neutrophils automated count (number/volume) 5.6 10*3 1.8-7.8 Blood lymphocytes automated count (number/volume) 2.1 10*3 1.0-4.0 Blood monocytes automated count (number/volume) 1. 0 10*3 0.0-1.0 Automated eosinophil count 0.2 10*3/uL 0 .0-0.3 Automated blood basophil count (count/volume) 0.0 10*3/uL 0.0-0.1 Comprehensive metabolic panel - 02/03/19 02:00 Serum or plasma sodium measurement (moles/volume) 138 mmol/L 135-145 Serum or plasma potassium measurement (moles/volume) 6.2 mmol/L 3.6-5.0 Serum or plasma chloride measurement (moles/volume) 103 mmol/L 98-107 Carbon dioxide 25 mmol/L 21-32 Serum or plasma anion gap determination (moles/volume) 10 mmol/L 5-14 Serum or plasma urea nitrogen measurement (mass/volume ) 47 mg/dL 7-18 Serum or plasma creatinine measurement (mass/volume) 2.05 mg/dL 0.60-1.30 Serum or plasma urea nitrogen/creatinine mass ratio 23 NRG Serum or plasma creatinine measurement w ith calculation of estimated glomerular filtration rate 23 NRG Serum or plasma glucose measurement (mass/volume) 141 mg/dL 70-105 Serum or plasma calcium measurement (mass/volume) 8.1 mg/dL 8.5-10.1 Serum or plasma total bilirubin measurement (mass/volu me) 0.4 mg/dL 0.1-1.0 Serum or plasma alkaline phosphatase ghanshyam surement (enzymatic activity/volume) 53 U/L 40-136 Serum or plasma aspartate aminotransfera se measurement (enzymatic activity/volume) 24 U/L 5-34 Serum or plasma alanine aminotransferase measurement (enzymatic activity/volume) 12 U/L 0-55 Serum or plasma protein measurement (mass/volume) 5.8 g/dL 6.4-8.2 Serum or plasma albumin measurement (mass/volume) 3.0 g/dL 3.2-4.5 CALCIUM CORRECTED 8.9 mg/dL 8.5-10.1 Serum or plasma troponin i.cardiac measu rement (mass/volume) - 02/03/19 02:00 Serum or plasma troponin i.cardiac measurement (mass/v olume) 1.824 ng/mL <0.028 Serum or plasma potassium measurement (m oles/volume) - 02/03/19 09:50 Serum or plasma potassium measurement (moles/volume) 4.3 mmol/L 3.6-5.0 Capillary blood glucose measurement by g lucometer (mass/volume) - 02/03/19 11:18 Capillary blood glucose measurement by glucometer (mas s/volume) 273 mg/dL 70-110 Capillary blood glucose measurement by g lucometer (mass/volume) - 02/03/19 15:39 Capillary blood glucose measurement by glucometer (mas s/volume) 272 mg/dL 70-110 Capillary blood glucose measurement by g lucometer (mass/volume) - 02/03/19 21:13 Capillary blood glucose measurement by glucometer (mas s/volume) 235 mg/dL 70-110 Capillary blood glucose measurement by g lucometer (mass/volume) - 02/04/19 05:55 Capillary blood glucose measurement by glucometer (mas s/volume) 95 mg/dL 70-110 Complete blood count (CBC) with automate d white blood cell (WBC) differential - 02/04/19 08:05 Blood leukocytes automated count (number/volume) 8.1 10*3/uL 4.3-11.0 Blood erythrocytes automated count (number/volume) 5.09 10*6/uL 4.35-5.85 Venous blood hemoglobin measurement (mass/volume) 13.3 g/dL 11.5-16.0 Blood hematocrit (volume fraction) 42 % 35-52 Automated erythrocyte mean corpuscular volume 83 [ foz_us] 80-99 Automated erythrocyte mean corpuscular h emoglobin (mass per erythrocyte) 26 pg 25-34 Automated erythrocyte mean corpuscular h emoglobin concentration measurement (mass/volume) 32 g/dL 32-36 Automated erythrocyte distribution width ratio 18. 1 % 10.0- 14.5 Automated blood platelet count (count/volume) 156 10*3/uL 130-400 Automated blood platelet mean volume measurement 10.2 [foz_us] 7.4-10.4 Automated blood neutrophils/100 leukocytes 60 % 42-75 Automated blood lymphocytes/100 leukocytes 26 % 12-44 Blood monocytes/100 leukocytes 10 % 0-12 Automated blood eosinophils/100 leukocytes 4 % 0-10 Automated blood basophils/100 leukocytes 0 % 0-10 Blood neutrophils automated count (number/volume) 4.8 10*3 1.8-7.8 Blood lymphocytes automated count (number/volume) 2.1 10*3 1.0-4.0 Blood monocytes automated count (number/volume) 0. 8 10*3 0.0-1.0 Automated eosinophil count 0.3 10*3/uL 0 .0-0.3 Automated blood basophil count (count/volume) 0.0 10*3/uL 0.0-0.1 Whole blood basic metabolic panel - 01/17 04/07 08:05 Serum or plasma sodium measurement (moles/volume) 139 mmol/L 135-145 Serum or plasma potassium measurement (moles/volume) 3.7 mmol/L 3.6-5.0 Serum or plasma chloride measurement (moles/volume) 105 mmol/L 98-107 Carbon dioxide 23 mmol/L 21-32 Serum or plasma anion gap determination (moles/volume) 11 mmol/L 5-14 Serum or plasma urea nitrogen measurement (mass/volume ) 36 mg/dL 7-18 Serum or plasma creatinine measurement (mass/volume) 1.90 mg/dL 0.60-1.30 Serum or plasma urea nitrogen/creatinine mass ratio 19 NRG Serum or plasma creatinine measurement w ith calculation of estimated glomerular filtration rate 26 NRG Serum or plasma glucose measurement (mass/volume) 111 mg/dL 70-105 Serum or plasma calcium measurement (mass/volume) 9.2 mg/dL 8.5-10.1 Capillary blood glucose measurement by g lucometer (mass/volume) - 02/04/19 12:36 Capillary blood glucose measurement by glucometer (mas s/volume) 157 mg/dL 70-110 Capillary blood glucose measurement by g lucometer (mass/volume) - 02/04/19 15:39 Capillary blood glucose measurement by glucometer (mas s/volume) 187 mg/dL 70-110 Capillary blood glucose measurement by g lucometer (mass/volume) - 02/04/19 21:08 Capillary blood glucose measurement by glucometer (mas s/volume) 207 mg/dL 70-110 Automated blood complete blood count (he mogram) panel - 02/05/19 03:57 Blood leukocytes automated count (number/volume) 7.4 10*3/uL 4.3-11.0 Blood erythrocytes automated count (number/volume) 4.54 10*6/uL 4.35-5.85 Venous blood hemoglobin measurement (mass/volume) 12.0 g/dL 11.5-16.0 Blood hematocrit (volume fraction) 38 % 35-52 Automated erythrocyte mean corpuscular volume 83 [ foz_us] 80-99 Automated erythrocyte mean corpuscular h emoglobin (mass per erythrocyte) 26 pg 25-34 Automated erythrocyte mean corpuscular h emoglobin concentration measurement (mass/volume) 32 g/dL 32-36 Automated erythrocyte distribution width ratio 18. 2 % 10.0- 14.5 Automated blood platelet count (count/volume) 158 10*3/uL 130-400 Automated blood platelet mean volume measurement 10.8 [foz_us] 7.4-10.4 Whole blood basic metabolic panel - 01/18 03:57 Serum or plasma sodium measurement (moles/volume) 137 mmol/L 135-145 Serum or plasma potassium measurement (moles/volume) 3.9 mmol/L 3.6-5.0 Serum or plasma chloride measurement (moles/volume) 107 mmol/L 98-107 Carbon dioxide 19 mmol/L 21-32 Serum or plasma anion gap determination (moles/volume) 11 mmol/L 5-14 Serum or plasma urea nitrogen measurement (mass/volume ) 30 mg/dL 7-18 Serum or plasma creatinine measurement (mass/volume) 1.62 mg/dL 0.60-1.30 Serum or plasma urea nitrogen/creatinine mass ratio 19 NRG Serum or plasma creatinine measurement w ith calculation of estimated glomerular filtration rate 31 NRG Serum or plasma glucose measurement (mass/volume) 111 mg/dL 70-105 Serum or plasma calcium measurement (mass/volume) 8.8 mg/dL 8.5-10.1 Capillary blood glucose measurement by g lucometer (mass/volume) - 02/05/19 11:19 Capillary blood glucose measurement by glucometer (mas s/volume) 145 mg/dL 70-110 Capillary blood glucose measurement by g lucometer (mass/volume) - 03/02/19 16:17 Capillary blood glucose measurement by glucometer (mas s/volume) 205 mg/dL 70-110 Complete blood count (CBC) with automate d white blood cell (WBC) differential - 03/02/19 16:20 Blood leukocytes automated count (number/volume) 10.6 10*3/uL 4.3-11.0 Blood erythrocytes automated count (number/volume) 5.67 10*6/uL 4.35-5.85 Venous blood hemoglobin measurement (mass/volume) 15.1 g/dL 11.5-16.0 Blood hematocrit (volume fraction) 46 % 35-52 Automated erythrocyte mean corpuscular volume 80 [ foz_us] 80-99 Automated erythrocyte mean corpuscular h emoglobin (mass per erythrocyte) 27 pg 25-34 Automated erythrocyte mean corpuscular h emoglobin concentration measurement (mass/volume) 33 g/dL 32-36 Automated erythrocyte distribution width ratio 20. 5 % 10.0- 14.5 Automated blood platelet count (count/volume) 243 10*3/uL 130-400 Automated blood platelet mean volume measurement 10.5 [foz_us] 7.4-10.4 Automated blood neutrophils/100 leukocytes 58 % 42-75 Automated blood lymphocytes/100 leukocytes 30 % 12-44 Blood monocytes/100 leukocytes 11 % 0-12 Automated blood eosinophils/100 leukocytes 2 % 0-10 Automated blood basophils/100 leukocytes 0 % 0-10 Blood neutrophils automated count (number/volume) 6.2 10*3 1.8-7.8 Blood lymphocytes automated count (number/volume) 3.1 10*3 1.0-4.0 Blood monocytes automated count (number/volume) 1. 2 10*3 0.0-1.0 Automated eosinophil count 0.2 10*3/uL 0 .0-0.3 Automated blood basophil count (count/volume) 0.0 10*3/uL 0.0-0.1 Comprehensive metabolic panel - 03/02/19 16:20 Serum or plasma sodium measurement (moles/volume) 135 mmol/L 135-145 Serum or plasma potassium measurement (moles/volume) 4.3 mmol/L 3.6-5.0 Serum or plasma chloride measurement (moles/volume) 96 mmol/L 98-107 Carbon dioxide 22 mmol/L 21-32 Serum or plasma anion gap determination (moles/volume) 17 mmol/L 5-14 Serum or plasma urea nitrogen measurement (mass/volume ) 32 mg/dL 7-18 Serum or plasma creatinine measurement (mass/volume) 2.48 mg/dL 0.60-1.30 Serum or plasma urea nitrogen/creatinine mass ratio 13 NRG Serum or plasma creatinine measurement w ith calculation of estimated glomerular filtration rate 19 NRG Serum or plasma glucose measurement (mass/volume) 218 mg/dL 70-105 Serum or plasma calcium measurement (mass/volume) 10.2 mg/dL 8.5-10.1 Serum or plasma total bilirubin measurement (mass/volu me) 0.7 mg/dL 0.1-1.0 Serum or plasma alkaline phosphatase ghanshyam surement (enzymatic activity/volume) 75 U/L 40-136 Serum or plasma aspartate aminotransfera se measurement (enzymatic activity/volume) 28 U/L 5-34 Serum or plasma alanine aminotransferase measurement (enzymatic activity/volume) 16 U/L 0-55 Serum or plasma protein measurement (mass/volume) 7.9 g/dL 6.4-8.2 Serum or plasma albumin measurement (mass/volume) 3.9 g/dL 3.2-4.5 CALCIUM CORRECTED 10.3 mg/dL 8.5-10.1 Blood lactic acid measurement (moles/vol ume) - 03/02/19 16:20 Blood lactic acid measurement (moles/volume) 4.90 mmol/L 0.50-2.00 Serum or plasma troponin i.cardiac measu rement (mass/volume) - 03/02/19 16:20 Serum or plasma troponin i.cardiac measurement (mass/v olume) 0.052 ng/mL <0.028 PT panel in platelet poor plasma by coag ulation assay - 03/02/19 16:20 Prothrombin time (PT) in platelet poor plasma by coagu lation assay 18.8 s 12.2-14.7 INR in platelet poor plasma or blood by coagulation as say 1.5 0.8-1.4 Activated partial thromboplastin time (a PTT) in platelet poor plasma bycoagulation assay - 03/02/19 16:20 Activated partial thromboplastin time (a PTT) in platelet poor plasma bycoagulation assay 36 s 24-35 Bacterial blood culture - 03/02/19 16:20 Bacterial blood culture NG NRG Bacterial blood culture - 03/02/19 16:26 Bacterial blood culture NG NRG Complete urinalysis with reflex to cultu re - 03/02/19 17:39 Urine color determination YELLOW NRG Urine clarity determination CLEAR NR G Urine pH measurement by test strip 7 5-9 Specific gravity of urine by test strip 1.010 1.016-1.022 Urine protein assay by test strip, semi-quantitative 2+ NEGATIVE Urine glucose detection by automated test strip NE GATIVE NEGATIVE Erythrocytes detection in urine sediment by light micr oscopy 2+ NEGATIVE Urine ketones detection by automated test strip NE GATIVE NEGATIVE Urine nitrite detection by test strip NEGATIVE NEGATIVE Urine total bilirubin detection by test strip NEGA TIVE NEGATIVE Urine urobilinogen measurement by automated test strip (mass/volume) NORMAL NORMAL Urine leukocyte esterase detection by dipstick 2+ NEGATIVE Automated urine sediment erythrocyte cou nt by microscopy (number/high power field) NONE NRG Automated urine sediment leukocyte count by microscopy (number/high power field) [HPF] NRG Bacteria detection in urine sediment by light microsco py LARGE NRG Squamous epithelial cells detection in u rine sediment by light microscopy 2-5 NRG Crystals detection in urine sediment by light microsco py NONE NRG Casts detection in urine sediment by light microscopy NONE NRG Mucus detection in urine sediment by light microscopy NEGATIVE NRG Complete urinalysis with reflex to culture YES NRG Bacterial urine culture - 03/02/19 17:39 Bacterial urine culture [id number] NRG COLONY COUNT 40,000 CFU/ML NRG FTX;REPORTABLE SUSCEPTIBILITY REPORTED 03-04-19 05. NRG Dirithromycin susceptibility test by dis k diffusion - 03/02/19 17:39 Gentamicin susceptibility test by minimum inhibitory c oncentration <= NRG Trimethoprim/sulfamethoxazole susceptibi lity test by minimum inhibitoryconcentration <= NRG Levofloxacin susceptibility test by minimum inhibitory concentration <= NRG Ampicillin susceptibility test by minimum inhibitory c oncentration R NRG Cefazolin susceptibility test by minimum inhibitory co ncentration <= NRG Ceftriaxone susceptibility test by minimum inhibitory concentration <= NRG Ciprofloxacin susceptibility test by minimum inhibitor y concentration <= NRG Meropenem susceptibility test by minimum inhibitory co ncentration <= NRG Nitrofurantoin susceptibility test by mi nimum inhibitory concentration <= NRG Amoxicillin and clavulanate potassium susc CHERRY <= NRG Serum or plasma lactate measurement (mol es/volume) - 03/02/19 18:23 Serum or plasma lactate measurement (moles/volume) 2.52 mmol/L 0.50-2.00 Methicillin resistant Staphylococcus aur eus (MRSA) screening culture - 03/02/19 18:53 Methicillin resistant Staphylococcus aureus (MRSA) scr eening culture NEG NRG Blood lactic acid measurement (moles/vol ume) - 03/02/19 19:55 Blood lactic acid measurement (moles/volume) 2.34 mmol/L 0.50-2.00 Capillary blood glucose measurement by g lucometer (mass/volume) - 03/02/19 20:18 Capillary blood glucose measurement by glucometer (mas s/volume) 151 mg/dL 70-110 Serum or plasma lactate measurement (mol es/volume) - 03/02/19 22:12 Serum or plasma lactate measurement (moles/volume) 1.98 mmol/L 0.50-2.00 Serum or plasma troponin i.cardiac measu rement (mass/volume) - 03/02/19 22:12 Serum or plasma troponin i.cardiac measurement (mass/v olume) 0.116 ng/mL <0.028 Blood lactic acid measurement (moles/vol ume) - 03/03/19 00:41 Blood lactic acid measurement (moles/volume) 1.46 mmol/L 0.50-2.00 Complete blood count (CBC) with automate d white blood cell (WBC) differential - 03/03/19 04:03 Blood leukocytes automated count (number/volume) 8.5 10*3/uL 4.3-11.0 Blood erythrocytes automated count (number/volume) 4.74 10*6/uL 4.35-5.85 Venous blood hemoglobin measurement (mass/volume) 12.4 g/dL 11.5-16.0 Blood hematocrit (volume fraction) 39 % 35-52 Automated erythrocyte mean corpuscular volume 82 [ foz_us] 80-99 Automated erythrocyte mean corpuscular h emoglobin (mass per erythrocyte) 26 pg 25-34 Automated erythrocyte mean corpuscular h emoglobin concentration measurement (mass/volume) 32 g/dL 32-36 Automated erythrocyte distribution width ratio 18. 5 % 10.0- 14.5 Automated blood platelet count (count/volume) 194 10*3/uL 130-400 Automated blood platelet mean volume measurement 9.7 [foz_us] 7.4-10.4 Automated blood neutrophils/100 leukocytes 61 % 42-75 Automated blood lymphocytes/100 leukocytes 27 % 12-44 Blood monocytes/100 leukocytes 10 % 0-12 Automated blood eosinophils/100 leukocytes 2 % 0-10 Automated blood basophils/100 leukocytes 0 % 0-10 Blood neutrophils automated count (number/volume) 5.2 10*3 1.8-7.8 Blood lymphocytes automated count (number/volume) 2.3 10*3 1.0-4.0 Blood monocytes automated count (number/volume) 0. 8 10*3 0.0-1.0 Automated eosinophil count 0.2 10*3/uL 0 .0-0.3 Automated blood basophil count (count/volume) 0.0 10*3/uL 0.0-0.1 Blood lactic acid measurement (moles/vol ume) - 03/03/19 04:03 Blood lactic acid measurement (moles/volume) 1.52 mmol/L 0.50-2.00 Whole blood basic metabolic panel - 02/17 12/05 04:03 Serum or plasma sodium measurement (moles/volume) 142 mmol/L 135-145 Serum or plasma potassium measurement (moles/volume) 4.0 mmol/L 3.6-5.0 Serum or plasma chloride measurement (moles/volume) 106 mmol/L 98-107 Carbon dioxide 23 mmol/L 21-32 Serum or plasma anion gap determination (moles/volume) 13 mmol/L 5-14 Serum or plasma urea nitrogen measurement (mass/volume ) 27 mg/dL 7-18 Serum or plasma creatinine measurement (mass/volume) 2.11 mg/dL 0.60-1.30 Serum or plasma urea nitrogen/creatinine mass ratio 13 NRG Serum or plasma creatinine measurement w ith calculation of estimated glomerular filtration rate 23 NRG Serum or plasma glucose measurement (mass/volume) 99 mg/dL 70-105 Serum or plasma calcium measurement (mass/volume) 8.2 mg/dL 8.5-10.1 Serum or plasma phosphate measurement (m ass/volume) - 03/03/19 04:03 Serum or plasma phosphate measurement (mass/volume) 3.7 mg/dL 2.3-4.7 Magnesium - 03/03/19 04:03 Magnesium 2.1 mg/dL 1.6-2.4 Serum or plasma troponin i.cardiac measu rement (mass/volume) - 03/03/19 04:03 Serum or plasma troponin i.cardiac measurement (mass/v olume) 0.225 ng/mL <0.028 Blood lactic acid measurement (moles/vol ume) - 03/03/19 08:00 Blood lactic acid measurement (moles/volume) 1.67 mmol/L 0.50-2.00 Capillary blood glucose measurement by g lucometer (mass/volume) - 03/03/19 11:19 Capillary blood glucose measurement by glucometer (mas s/volume) 176 mg/dL 70-110 C DIFFICILE AG + TOXIN A/B. - 03/03/19 1 1:57 RESULTS NEGATIVE FOR ANTIGEN AND TOXIN A/B [facility] Stool bacteria identification by culture - 03/03/19 11:57 Stool bacteria identification by culture N2 [facility] Blood lactic acid measurement (moles/vol ume) - 03/03/19 12:15 Blood lactic acid measurement (moles/volume) 2.18 mmol/L 0.50-2.00 Capillary blood glucose measurement by g lucometer (mass/volume) - 03/03/19 15:40 Capillary blood glucose measurement by glucometer (mas s/volume) 141 mg/dL 70-110 Capillary blood glucose measurement by g lucometer (mass/volume) - 03/03/19 21:59 Capillary blood glucose measurement by glucometer (mas s/volume) 161 mg/dL 70-110 Capillary blood glucose measurement by g lucometer (mass/volume) - 03/04/19 06:35 Capillary blood glucose measurement by glucometer (mas s/volume) 152 mg/dL 70-110 Capillary blood glucose measurement by g lucometer (mass/volume) - 03/04/19 11:06 Capillary blood glucose measurement by glucometer (mas s/volume) 161 mg/dL 70-110 Complete blood count (CBC) with automate d white blood cell (WBC) differential - 03/17/19 11:10 Blood leukocytes automated count (number/volume) 8.5 10*3/uL 4.3-11.0 Blood erythrocytes automated count (number/volume) 5.15 10*6/uL 4.35-5.85 Venous blood hemoglobin measurement (mass/volume) 13.6 g/dL 11.5-16.0 Blood hematocrit (volume fraction) 43 % 35-52 Automated erythrocyte mean corpuscular volume 83 [ foz_us] 80-99 Automated erythrocyte mean corpuscular h emoglobin (mass per erythrocyte) 26 pg 25-34 Automated erythrocyte mean corpuscular h emoglobin concentration measurement (mass/volume) 32 g/dL 32-36 Automated erythrocyte distribution width ratio 18. 9 % 10.0- 14.5 Automated blood platelet count (count/volume) 197 10*3/uL 130-400 Automated blood platelet mean volume measurement 9.9 [foz_us] 7.4-10.4 Automated blood neutrophils/100 leukocytes 65 % 42-75 Automated blood lymphocytes/100 leukocytes 22 % 12-44 Blood monocytes/100 leukocytes 9 % 0-12 Automated blood eosinophils/100 leukocytes 3 % 0-10 Automated blood basophils/100 leukocytes 0 % 0-10 Blood neutrophils automated count (number/volume) 5.5 10*3 1.8-7.8 Blood lymphocytes automated count (number/volume) 1.9 10*3 1.0-4.0 Blood monocytes automated count (number/volume) 0. 8 10*3 0.0-1.0 Automated eosinophil count 0.3 10*3/uL 0 .0-0.3 Automated blood basophil count (count/volume) 0.0 10*3/uL 0.0-0.1 Comprehensive metabolic panel - 03/17/19 11:10 Serum or plasma sodium measurement (moles/volume) 138 mmol/L 135-145 Serum or plasma potassium measurement (moles/volume) 4.0 mmol/L 3.6-5.0 Serum or plasma chloride measurement (moles/volume) 97 mmol/L 98-107 Carbon dioxide 26 mmol/L 21-32 Serum or plasma anion gap determination (moles/volume) 15 mmol/L 5-14 Serum or plasma urea nitrogen measurement (mass/volume ) 19 mg/dL 7-18 Serum or plasma creatinine measurement (mass/volume) 1.77 mg/dL 0.60-1.30 Serum or plasma urea nitrogen/creatinine mass ratio 11 NRG Serum or plasma creatinine measurement w ith calculation of estimated glomerular filtration rate 28 NRG Serum or plasma glucose measurement (mass/volume) 250 mg/dL 70-105 Serum or plasma calcium measurement (mass/volume) 9.5 mg/dL 8.5-10.1 Serum or plasma total bilirubin measurement (mass/volu me) 0.5 mg/dL 0.1-1.0 Serum or plasma alkaline phosphatase ghanshyam surement (enzymatic activity/volume) 88 U/L 40-136 Serum or plasma aspartate aminotransfera se measurement (enzymatic activity/volume) 21 U/L 5-34 Serum or plasma alanine aminotransferase measurement (enzymatic activity/volume) 15 U/L 0-55 Serum or plasma protein measurement (mass/volume) 7.5 g/dL 6.4-8.2 Serum or plasma albumin measurement (mass/volume) 4.0 g/dL 3.2-4.5 CALCIUM CORRECTED 9.5 mg/dL 8.5-10.1 Complete blood count (CBC) with automate d white blood cell (WBC) differential - 04/05/19 15:55 Blood leukocytes automated count (number/volume) 10.2 10*3/uL 4.3-11.0 Blood erythrocytes automated count (number/volume) 5.23 10*6/uL 4.35-5.85 Venous blood hemoglobin measurement (mass/volume) 14.0 g/dL 11.5-16.0 Blood hematocrit (volume fraction) 43 % 35-52 Automated erythrocyte mean corpuscular volume 83 [ foz_us] 80-99 Automated erythrocyte mean corpuscular h emoglobin (mass per erythrocyte) 27 pg 25-34 Automated erythrocyte mean corpuscular h emoglobin concentration measurement (mass/volume) 32 g/dL 32-36 Automated erythrocyte distribution width ratio 18. 6 % 10.0- 14.5 Automated blood platelet count (count/volume) 245 10*3/uL 130-400 Automated blood platelet mean volume measurement 10.0 [foz_us] 7.4-10.4 Automated blood neutrophils/100 leukocytes 73 % 42-75 Automated blood lymphocytes/100 leukocytes 19 % 12-44 Blood monocytes/100 leukocytes 7 % 0-12 Automated blood eosinophils/100 leukocytes 1 % 0-10 Automated blood basophils/100 leukocytes 0 % 0-10 Blood neutrophils automated count (number/volume) 7.5 10*3 1.8-7.8 Blood lymphocytes automated count (number/volume) 1.9 10*3 1.0-4.0 Blood monocytes automated count (number/volume) 0. 7 10*3 0.0-1.0 Automated eosinophil count 0.1 10*3/uL 0 .0-0.3 Automated blood basophil count (count/volume) 0.0 10*3/uL 0.0-0.1 Comprehensive metabolic panel - 04/05/19 15:55 Serum or plasma sodium measurement (moles/volume) 140 mmol/L 135-145 Serum or plasma potassium measurement (moles/volume) 4.2 mmol/L 3.6-5.0 Serum or plasma chloride measurement (moles/volume) 97 mmol/L 98-107 Carbon dioxide 26 mmol/L 21-32 Serum or plasma anion gap determination (moles/volume) 17 mmol/L 5-14 Serum or plasma urea nitrogen measurement (mass/volume ) 23 mg/dL 7-18 Serum or plasma creatinine measurement (mass/volume) 2.08 mg/dL 0.60-1.30 Serum or plasma urea nitrogen/creatinine mass ratio 11 NRG Serum or plasma creatinine measurement w ith calculation of estimated glomerular filtration rate 23 NRG Serum or plasma glucose measurement (mass/volume) 231 mg/dL 70-105 Serum or plasma calcium measurement (mass/volume) 9.7 mg/dL 8.5-10.1 Serum or plasma total bilirubin measurement (mass/volu me) 0.6 mg/dL 0.1-1.0 Serum or plasma alkaline phosphatase ghanshyam surement (enzymatic activity/volume) 95 U/L 40-136 Serum or plasma aspartate aminotransfera se measurement (enzymatic activity/volume) 23 U/L 5-34 Serum or plasma alanine aminotransferase measurement (enzymatic activity/volume) 17 U/L 0-55 Serum or plasma protein measurement (mass/volume) 7.9 g/dL 6.4-8.2 Serum or plasma albumin measurement (mass/volume) 4.1 g/dL 3.2-4.5 CALCIUM CORRECTED 9.6 mg/dL 8.5-10.1 Magnesium - 04/05/19 15:55 Magnesium 2.2 mg/dL 1.6-2.4 Serum or plasma troponin i.cardiac measu rement (mass/volume) - 04/05/19 15:55 Serum or plasma troponin i.cardiac measurement (mass/v olume) 0.096 ng/mL <0.028 Myoglobin, serum - 04/05/19 15:55 Myoglobin, serum 160.5 ng/mL 10.0-92.0 PT panel in platelet poor plasma by coag ulation assay - 04/05/19 15:55 Prothrombin time (PT) in platelet poor plasma by coagu lation assay 14.7 s 12.2-14.7 INR in platelet poor plasma or blood by coagulation as say 1.1 0.8-1.4 Activated partial thromboplastin time (a PTT) in platelet poor plasma bycoagulation assay - 04/05/19 15:55 Activated partial thromboplastin time (a PTT) in platelet poor plasma bycoagulation assay 29 s 24-35 Bacterial blood culture - 04/05/19 15:55 Bacterial blood culture NG NRG Complete urinalysis with reflex to cultu re - 04/05/19 16:15 Urine color determination YELLOW NRG Urine clarity determination CLEAR NR G Urine pH measurement by test strip 7 5-9 Specific gravity of urine by test strip 1.010 1.016-1.022 Urine protein assay by test strip, semi-quantitative 2+ NEGATIVE Urine glucose detection by automated test strip 2+ NEGATIVE Erythrocytes detection in urine sediment by light micr oscopy 1+ NEGATIVE Urine ketones detection by automated test strip 1+ NEGATIVE Urine nitrite detection by test strip NEGATIVE NEGATIVE Urine total bilirubin detection by test strip NEGA TIVE NEGATIVE Urine urobilinogen measurement by automated test strip (mass/volume) NORMAL NORMAL Urine leukocyte esterase detection by dipstick NEG ATIVE NEGATIVE Automated urine sediment erythrocyte cou nt by microscopy (number/high power field) [HPF] NRG Automated urine sediment leukocyte count by microscopy (number/high power field) RARE NRG Bacteria detection in urine sediment by light microsco py NEGATIVE NRG Squamous epithelial cells detection in u rine sediment by light microscopy RARE NRG Crystals detection in urine sediment by light microsco py NONE NRG Casts detection in urine sediment by light microscopy PRESENT NRG Mucus detection in urine sediment by light microscopy NEGATIVE NRG Complete urinalysis with reflex to culture CULTURE PENDING NRG Hyaline casts detection in urine sediment by light cherry roscopy 0-2 NRG Bacterial urine culture - 04/05/19 16:15 Bacterial urine culture NG NRG Bacterial blood culture - 04/05/19 16:17 Bacterial blood culture NG NRG Blood lactic acid measurement (moles/vol ume) - 04/05/19 16:22 Blood lactic acid measurement (moles/volume) 3.80 mmol/L 0.50-2.00 Serum or plasma lactate measurement (mol es/volume) - 04/05/19 18:25 Serum or plasma lactate measurement (moles/volume) 2.71 mmol/L 0.50-2.00 Capillary blood glucose measurement by g lucometer (mass/volume) - 04/05/19 20:56 Capillary blood glucose measurement by glucometer (mas s/volume) 210 mg/dL 70-110 Serum or plasma troponin i.cardiac measu rement (mass/volume) - 04/06/19 00:28 Serum or plasma troponin i.cardiac measurement (mass/v olume) 42.047 ng/mL <0.028 Complete blood count (CBC) with automate d white blood cell (WBC) differential - 04/06/19 03:13 Blood leukocytes automated count (number/volume) 9.3 10*3/uL 4.3-11.0 Blood erythrocytes automated count (number/volume) 4.61 10*6/uL 4.35-5.85 Venous blood hemoglobin measurement (mass/volume) 12.2 g/dL 11.5-16.0 Blood hematocrit (volume fraction) 39 % 35-52 Automated erythrocyte mean corpuscular volume 85 [ foz_us] 80-99 Automated erythrocyte mean corpuscular h emoglobin (mass per erythrocyte) 27 pg 25-34 Automated erythrocyte mean corpuscular h emoglobin concentration measurement (mass/volume) 31 g/dL 32-36 Automated erythrocyte distribution width ratio 18. 6 % 10.0- 14.5 Automated blood platelet count (count/volume) 200 10*3/uL 130-400 Automated blood platelet mean volume measurement 9.9 [foz_us] 7.4-10.4 Automated blood neutrophils/100 leukocytes 74 % 42-75 Automated blood lymphocytes/100 leukocytes 16 % 12-44 Blood monocytes/100 leukocytes 9 % 0-12 Automated blood eosinophils/100 leukocytes 1 % 0-10 Automated blood basophils/100 leukocytes 0 % 0-10 Blood neutrophils automated count (number/volume) 6.9 10*3 1.8-7.8 Blood lymphocytes automated count (number/volume) 1.5 10*3 1.0-4.0 Blood monocytes automated count (number/volume) 0. 8 10*3 0.0-1.0 Automated eosinophil count 0.1 10*3/uL 0 .0-0.3 Automated blood basophil count (count/volume) 0.0 10*3/uL 0.0-0.1 Whole blood basic metabolic panel - 03/20 03/07 03:13 Serum or plasma sodium measurement (moles/volume) 136 mmol/L 135-145 Serum or plasma potassium measurement (moles/volume) 4.4 mmol/L 3.6-5.0 Serum or plasma chloride measurement (moles/volume) 106 mmol/L 98-107 Carbon dioxide 23 mmol/L 21-32 Serum or plasma anion gap determination (moles/volume) 7 mmol/L 5-14 Serum or plasma urea nitrogen measurement (mass/volume ) 22 mg/dL 7-18 Serum or plasma creatinine measurement (mass/volume) 1.65 mg/dL 0.60-1.30 Serum or plasma urea nitrogen/creatinine mass ratio 13 NRG Serum or plasma creatinine measurement w ith calculation of estimated glomerular filtration rate 30 NRG Serum or plasma glucose measurement (mass/volume) 155 mg/dL 70-105 Serum or plasma calcium measurement (mass/volume) 8.1 mg/dL 8.5-10.1 Serum or plasma phosphate measurement (m ass/volume) - 04/06/19 03:13 Serum or plasma phosphate measurement (mass/volume) 3.8 mg/dL 2.3-4.7 Magnesium - 04/06/19 03:13 Magnesium 2.0 mg/dL 1.6-2.4 Serum or plasma amylase measurement (enz ymatic activity/volume) - 04/06/19 03:13 Serum or plasma amylase measurement (enzymatic activit y/volume) 26 U/L 25-125 Lipase - 04/06/19 03:13 Lipase 9 U/L 8-78 Blood lactic acid measurement (moles/vol ume) - 04/06/19 03:18 Blood lactic acid measurement (moles/volume) 1.89 mmol/L 0.50-2.00 Serum or plasma troponin i.cardiac measu rement (mass/volume) - 04/06/19 06:00 Serum or plasma troponin i.cardiac measurement (mass/v olume) 60.439 ng/mL <0.028 Lipid 1996 panel - 04/06/19 06:00 Serum or plasma triglyceride measurement (mass/volume) 156 mg/dL <150 Serum or plasma cholesterol measurement (mass/volume) 94 mg/dL < 200 Serum or plasma cholesterol in HDL measurement (mass/v olume) 26 mg/dL 40-60 Cholesterol in LDL [mass/volume] in serum or plasma by direct assay 46 mg/dL 1-129 Serum or plasma cholesterol in VLDL measurement (mass/ volume) 31 mg/dL 5-40 Capillary blood glucose measurement by g lucometer (mass/volume) - 04/06/19 06:29 Capillary blood glucose measurement by glucometer (mas s/volume) 160 mg/dL 70-110 Automated blood complete blood count (he mogram) panel - 04/06/19 09:15 Blood leukocytes automated count (number/volume) 10.3 10*3/uL 4.3-11.0 Blood erythrocytes automated count (number/volume) 4.64 10*6/uL 4.35-5.85 Venous blood hemoglobin measurement (mass/volume) 12.3 g/dL 11.5-16.0 Blood hematocrit (volume fraction) 40 % 35-52 Automated erythrocyte mean corpuscular volume 86 [ foz_us] 80-99 Automated erythrocyte mean corpuscular h emoglobin (mass per erythrocyte) 27 pg 25-34 Automated erythrocyte mean corpuscular h emoglobin concentration measurement (mass/volume) 31 g/dL 32-36 Automated erythrocyte distribution width ratio 18. 7 % 10.0- 14.5 Automated blood platelet count (count/volume) 205 10*3/uL 130-400 Automated blood platelet mean volume measurement 10.2 [foz_us] 7.4-10.4 PT panel in platelet poor plasma by coag ulation assay - 04/06/19 09:15 Prothrombin time (PT) in platelet poor plasma by coagu lation assay 17.1 s 12.2-14.7 INR in platelet poor plasma or blood by coagulation as say 1.3 0.8-1.4 Activated partial thromboplastin time (a PTT) in platelet poor plasma bycoagulation assay - 04/06/19 09:15 Activated partial thromboplastin time (a PTT) in platelet poor plasma bycoagulation assay 31 s 24-35 Activated partial thromboplastin time (a PTT) in platelet poor plasma bycoagulation assay - 04/06/19 11:56 Activated partial thromboplastin time (a PTT) in platelet poor plasma bycoagulation assay 158 s 24-35 Capillary blood glucose measurement by g lucometer (mass/volume) - 04/06/19 12:37 Capillary blood glucose measurement by glucometer (mas s/volume) 196 mg/dL 70-110 Methicillin resistant Staphylococcus aur eus (MRSA) screening culture - 04/06/19 13:05 Methicillin resistant Staphylococcus aureus (MRSA) scr eening culture NEG NRG Complete blood count (CBC) with automate d white blood cell (WBC) differential - 05/02/19 21:53 Blood leukocytes automated count (number/volume) 11.4 10*3/uL 4.3-11.0 Blood erythrocytes automated count (number/volume) 3.72 10*6/uL 4.35-5.85 Venous blood hemoglobin measurement (mass/volume) 10.0 g/dL 11.5-16.0 Blood hematocrit (volume fraction) 32 % 35-52 Automated erythrocyte mean corpuscular volume 85 [ foz_us] 80-99 Automated erythrocyte mean corpuscular h emoglobin (mass per erythrocyte) 27 pg 25-34 Automated erythrocyte mean corpuscular h emoglobin concentration measurement (mass/volume) 32 g/dL 32-36 Automated erythrocyte distribution width ratio 17. 0 % 10.0- 14.5 Automated blood platelet count (count/volume) 353 10*3/uL 130-400 Automated blood platelet mean volume measurement 9.2 [foz_us] 7.4-10.4 Automated blood neutrophils/100 leukocytes 74 % 42-75 Automated blood lymphocytes/100 leukocytes 11 % 12-44 Blood monocytes/100 leukocytes 12 % 0-12 Automated blood eosinophils/100 leukocytes 3 % 0-10 Automated blood basophils/100 leukocytes 0 % 0-10 Blood neutrophils automated count (number/volume) 8.4 10*3 1.8-7.8 Blood lymphocytes automated count (number/volume) 1.3 10*3 1.0-4.0 Blood monocytes automated count (number/volume) 1. 3 10*3 0.0-1.0 Automated eosinophil count 0.4 10*3/uL 0 .0-0.3 Automated blood basophil count (count/volume) 0.0 10*3/uL 0.0-0.1 PT panel in platelet poor plasma by coag ulation assay - 05/02/19 21:53 Prothrombin time (PT) in platelet poor plasma by coagu lation assay 21.5 s 12.2-14.7 INR in platelet poor plasma or blood by coagulation as say 1.8 0.8-1.4 Activated partial thromboplastin time (a PTT) in platelet poor plasma bycoagulation assay - 05/02/19 21:53 Activated partial thromboplastin time (a PTT) in platelet poor plasma bycoagulation assay 40 s 24-35 Comprehensive metabolic panel - 05/02/19 21:53 Serum or plasma sodium measurement (moles/volume) 131 mmol/L 135-145 Serum or plasma potassium measurement (moles/volume) 3.7 mmol/L 3.6-5.0 Serum or plasma chloride measurement (moles/volume) 91 mmol/L 98-107 Carbon dioxide 28 mmol/L 21-32 Serum or plasma anion gap determination (moles/volume) 12 mmol/L 5-14 Serum or plasma urea nitrogen measurement (mass/volume ) 16 mg/dL 7-18 Serum or plasma creatinine measurement (mass/volume) 1.50 mg/dL 0.60-1.30 Serum or plasma urea nitrogen/creatinine mass ratio 11 NRG Serum or plasma creatinine measurement w ith calculation of estimated glomerular filtration rate 33 NRG Serum or plasma glucose measurement (mass/volume) 93 mg/dL 70-105 Serum or plasma calcium measurement (mass/volume) 8.8 mg/dL 8.5-10.1 Serum or plasma total bilirubin measurement (mass/volu me) 1.1 mg/dL 0.1-1.0 Serum or plasma alkaline phosphatase ghanshyam surement (enzymatic activity/volume) 94 U/L 40-136 Serum or plasma aspartate aminotransfera se measurement (enzymatic activity/volume) 21 U/L 5-34 Serum or plasma alanine aminotransferase measurement (enzymatic activity/volume) 12 U/L 0-55 Serum or plasma protein measurement (mass/volume) 6.4 g/dL 6.4-8.2 Serum or plasma albumin measurement (mass/volume) 3.3 g/dL 3.2-4.5 CALCIUM CORRECTED 9.4 mg/dL 8.5-10.1 Magnesium - 05/02/19 21:53 Magnesium 1.8 mg/dL 1.6-2.4 Serum or plasma troponin i.cardiac measu rement (mass/volume) - 05/02/19 21:53 Serum or plasma troponin i.cardiac measurement (mass/v olume) 0.043 ng/mL <0.028 Myoglobin, serum - 05/02/19 21:53 Myoglobin, serum 80.6 ng/mL 10.0-92.0 Serum or plasma lithium measurement (mol es/volume) - 05/02/19 21:53 BNP PT 1541.1 pg/mL <100.0 Serum or plasma C reactive protein measu rement (mass/volume) - 05/02/19 21:56 Serum or plasma C reactive protein measurement (mass/v olume) 9.19 mg/dL 0.00-0.50 Influenza virus A and B antigen detectio n - 05/02/19 22:04 FLU RESULT NEGATIVE FOR INFLUENZA A AND B ANTIGENS BY IA NRG Complete urinalysis with reflex to cultu re - 05/02/19 22:38 Urine color determination YELLOW NRG Urine clarity determination CLEAR NR G Urine pH measurement by test strip 7 5-9 Specific gravity of urine by test strip 1.010 1.016-1.022 Urine protein assay by test strip, semi-quantitative 1+ NEGATIVE Urine glucose detection by automated test strip NE GATIVE NEGATIVE Erythrocytes detection in urine sediment by light micr oscopy NEGATIVE NEGATIVE Urine ketones detection by automated test strip NE GATIVE NEGATIVE Urine nitrite detection by test strip NEGATIVE NEGATIVE Urine total bilirubin detection by test strip NEGA TIVE NEGATIVE Urine urobilinogen measurement by automated test strip (mass/volume) NORMAL NORMAL Urine leukocyte esterase detection by dipstick NEG ATIVE NEGATIVE Automated urine sediment erythrocyte cou nt by microscopy (number/high power field) NONE NRG Automated urine sediment leukocyte count by microscopy (number/high power field) NONE NRG Bacteria detection in urine sediment by light microsco py NEGATIVE NRG Crystals detection in urine sediment by light microsco py PRESENT NRG Casts detection in urine sediment by light microscopy NONE NRG Mucus detection in urine sediment by light microscopy NEGATIVE NRG Complete urinalysis with reflex to culture NO NRG Amorphous sediment detection in urine sediment by ligh t microscopy RARE [place] PHOSPHATE NRG Complete blood count (CBC) with automate d white blood cell (WBC) differential - 05/03/19 03:30 Blood leukocytes automated count (number/volume) 10.1 10*3/uL 4.3-11.0 Blood erythrocytes automated count (number/volume) 3.72 10*6/uL 4.35-5.85 Venous blood hemoglobin measurement (mass/volume) 9.9 g/dL 11.5-16.0 Blood hematocrit (volume fraction) 31 % 35-52 Automated erythrocyte mean corpuscular volume 84 [ foz_us] 80-99 Automated erythrocyte mean corpuscular h emoglobin (mass per erythrocyte) 27 pg 25-34 Automated erythrocyte mean corpuscular h emoglobin concentration measurement (mass/volume) 32 g/dL 32-36 Automated erythrocyte distribution width ratio 17. 0 % 10.0- 14.5 Automated blood platelet count (count/volume) 343 10*3/uL 130-400 Automated blood platelet mean volume measurement 8.8 [foz_us] 7.4-10.4 Automated blood neutrophils/100 leukocytes 69 % 42-75 Automated blood lymphocytes/100 leukocytes 14 % 12-44 Blood monocytes/100 leukocytes 13 % 0-12 Automated blood eosinophils/100 leukocytes 4 % 0-10 Automated blood basophils/100 leukocytes 1 % 0-10 Blood neutrophils automated count (number/volume) 7.0 10*3 1.8-7.8 Blood lymphocytes automated count (number/volume) 1.4 10*3 1.0-4.0 Blood monocytes automated count (number/volume) 1. 3 10*3 0.0-1.0 Automated eosinophil count 0.4 10*3/uL 0 .0-0.3 Automated blood basophil count (count/volume) 0.1 10*3/uL 0.0-0.1 Comprehensive metabolic panel - 05/03/19 03:30 Serum or plasma sodium measurement (moles/volume) 133 mmol/L 135-145 Serum or plasma potassium measurement (moles/volume) 3.5 mmol/L 3.6-5.0 Serum or plasma chloride measurement (moles/volume) 92 mmol/L 98-107 Carbon dioxide 29 mmol/L 21-32 Serum or plasma anion gap determination (moles/volume) 12 mmol/L 5-14 Serum or plasma urea nitrogen measurement (mass/volume ) 16 mg/dL 7-18 Serum or plasma creatinine measurement (mass/volume) 1.43 mg/dL 0.60-1.30 Serum or plasma urea nitrogen/creatinine mass ratio 11 NRG Serum or plasma creatinine measurement w ith calculation of estimated glomerular filtration rate 35 NRG Serum or plasma glucose measurement (mass/volume) 58 mg/dL 70-105 Serum or plasma calcium measurement (mass/volume) 8.6 mg/dL 8.5-10.1 Serum or plasma total bilirubin measurement (mass/volu me) 1.0 mg/dL 0.1-1.0 Serum or plasma alkaline phosphatase ghanshyam surement (enzymatic activity/volume) 85 U/L 40-136 Serum or plasma aspartate aminotransfera se measurement (enzymatic activity/volume) 18 U/L 5-34 Serum or plasma alanine aminotransferase measurement (enzymatic activity/volume) 11 U/L 0-55 Serum or plasma protein measurement (mass/volume) 6.0 g/dL 6.4-8.2 Serum or plasma albumin measurement (mass/volume) 3.0 g/dL 3.2-4.5 CALCIUM CORRECTED 9.4 mg/dL 8.5-10.1 Serum or plasma troponin i.cardiac measu rement (mass/volume) - 05/03/19 03:30 Serum or plasma troponin i.cardiac measurement (mass/v olume) 0.048 ng/mL <0.028 Lipid 1996 panel - 05/03/19 03:30 Serum or plasma triglyceride measurement (mass/volume) 65 mg/dL <150 Serum or plasma cholesterol measurement (mass/volume) 65 mg/dL < 200 Serum or plasma cholesterol in HDL measurement (mass/v olume) 23 mg/dL 40-60 Cholesterol in LDL [mass/volume] in serum or plasma by direct assay 35 mg/dL 1-129 Serum or plasma cholesterol in VLDL measurement (mass/ volume) 13 mg/dL 5-40 Serum or plasma troponin i.cardiac measu rement (mass/volume) - 05/03/19 10:00 Serum or plasma troponin i.cardiac measurement (mass/v olume) 0.040 ng/mL <0.028 PROCALCITONIN (PCT) - 05/03/19 10:01 PROCALCITONIN (PCT) 0.09 ng/mL <0.10 Capillary blood glucose measurement by g lucometer (mass/volume) - 05/03/19 10:51 Capillary blood glucose measurement by glucometer (mas s/volume) 94 mg/dL 70-110 Complete blood count (CBC) with automate d white blood cell (WBC) differential - 05/04/19 03:25 Blood leukocytes automated count (number/volume) 10.0 10*3/uL 4.3-11.0 Blood erythrocytes automated count (number/volume) 3.84 10*6/uL 4.35-5.85 Venous blood hemoglobin measurement (mass/volume) 10.1 g/dL 11.5-16.0 Blood hematocrit (volume fraction) 32 % 35-52 Automated erythrocyte mean corpuscular volume 84 [ foz_us] 80-99 Automated erythrocyte mean corpuscular h emoglobin (mass per erythrocyte) 26 pg 25-34 Automated erythrocyte mean corpuscular h emoglobin concentration measurement (mass/volume) 31 g/dL 32-36 Automated erythrocyte distribution width ratio 17. 3 % 10.0- 14.5 Automated blood platelet count (count/volume) 369 10*3/uL 130-400 Automated blood platelet mean volume measurement 8.7 [foz_us] 7.4-10.4 Automated blood neutrophils/100 leukocytes 76 % 42-75 Automated blood lymphocytes/100 leukocytes 9 % 12-44 Blood monocytes/100 leukocytes 12 % 0-12 Automated blood eosinophils/100 leukocytes 3 % 0-10 Automated blood basophils/100 leukocytes 0 % 0-10 Blood neutrophils automated count (number/volume) 7.6 10*3 1.8-7.8 Blood lymphocytes automated count (number/volume) 0.9 10*3 1.0-4.0 Blood monocytes automated count (number/volume) 1. 2 10*3 0.0-1.0 Automated eosinophil count 0.3 10*3/uL 0 .0-0.3 Automated blood basophil count (count/volume) 0.0 10*3/uL 0.0-0.1 Whole blood basic metabolic panel - 04/19 01/05 03:25 Serum or plasma sodium measurement (moles/volume) 132 mmol/L 135-145 Serum or plasma potassium measurement (moles/volume) 4.2 mmol/L 3.6-5.0 Serum or plasma chloride measurement (moles/volume) 86 mmol/L 98-107 Carbon dioxide 34 mmol/L 21-32 Serum or plasma anion gap determination (moles/volume) 12 mmol/L 5-14 Serum or plasma urea nitrogen measurement (mass/volume ) 18 mg/dL 7-18 Serum or plasma creatinine measurement (mass/volume) 1.54 mg/dL 0.60-1.30 Serum or plasma urea nitrogen/creatinine mass ratio 12 NRG Serum or plasma creatinine measurement w ith calculation of estimated glomerular filtration rate 32 NRG Serum or plasma glucose measurement (mass/volume) 121 mg/dL 70-105 Serum or plasma calcium measurement (mass/volume) 8.5 mg/dL 8.5-10.1 Magnesium - 05/04/19 03:25 Magnesium 1.5 mg/dL 1.6-2.4 Serum or plasma phosphate measurement (m ass/volume) - 05/04/19 03:25 Serum or plasma phosphate measurement (mass/volume) 3.6 mg/dL 2.3-4.7 PROCALCITONIN (PCT) - 05/04/19 03:25 PROCALCITONIN (PCT) 0.10 ng/mL <0.10 Body fluid cell count - 05/04/19 09:10 Specimen source identification of body fluid THORA TESSY NRG Evaluation of color of body fluid BROWN NRG Determination of appearance of body fluid MKD BLDY NRG Body fluid leukocytes count (number/volume) 3280 / uL NRG Body fluid erythrocytes count (number/volume) 4000 00 /uL NRG Manual body fluid polymorphonuclear cells/100 leukocyt es 39 % NRG Manual body fluid mononuclear cells/100 leukocytes 2 % NRG Manual body fluid lymphocytes/100 leukocytes 59 % NRG * PH of body fluid - 05/04/19 09:10 * PH of body fluid 7.7 NRG Glucose body fluid - 05/04/19 09:10 Glucose body fluid 103 mg/dL NRG Body fluid total protein measurement - 1 09:10 Body fluid total protein measurement 4.0 g/dL NRG Body fluid/serum or plasma lactate dehyd rogenase (LDH) ratio - 05/04/19 09:10 Body fluid/serum or plasma lactate dehydrogenase (LDH) ratio 920 U/L NRG Gram stain microscopy - 05/04/19 09:10 Gram stain microscopy No bacteria seen NRG Bacterial body fluid culture - 05/04/19 09:10 Bacterial body fluid culture NG N RG Capillary blood glucose measurement by g lucometer (mass/volume) - 05/04/19 15:52 Capillary blood glucose measurement by glucometer (mas s/volume) 274 mg/dL 70-110 Capillary blood glucose measurement by g lucometer (mass/volume) - 05/04/19 20:32 Capillary blood glucose measurement by glucometer (mas s/volume) 304 mg/dL 70-110 Complete blood count (CBC) with automate d white blood cell (WBC) differential - 05/05/19 03:15 Blood leukocytes automated count (number/volume) 10.1 10*3/uL 4.3-11.0 Blood erythrocytes automated count (number/volume) 3.80 10*6/uL 4.35-5.85 Venous blood hemoglobin measurement (mass/volume) 9.9 g/dL 11.5-16.0 Blood hematocrit (volume fraction) 32 % 35-52 Automated erythrocyte mean corpuscular volume 84 [ foz_us] 80-99 Automated erythrocyte mean corpuscular h emoglobin (mass per erythrocyte) 26 pg 25-34 Automated erythrocyte mean corpuscular h emoglobin concentration measurement (mass/volume) 31 g/dL 32-36 Automated erythrocyte distribution width ratio 17. 7 % 10.0- 14.5 Automated blood platelet count (count/volume) 385 10*3/uL 130-400 Automated blood platelet mean volume measurement 9.0 [foz_us] 7.4-10.4 Automated blood neutrophils/100 leukocytes 72 % 42-75 Automated blood lymphocytes/100 leukocytes 12 % 12-44 Blood monocytes/100 leukocytes 14 % 0-12 Automated blood eosinophils/100 leukocytes 2 % 0-10 Automated blood basophils/100 leukocytes 0 % 0-10 Blood neutrophils automated count (number/volume) 7.3 10*3 1.8-7.8 Blood lymphocytes automated count (number/volume) 1.2 10*3 1.0-4.0 Blood monocytes automated count (number/volume) 1. 4 10*3 0.0-1.0 Automated eosinophil count 0.2 10*3/uL 0 .0-0.3 Automated blood basophil count (count/volume) 0.0 10*3/uL 0.0-0.1 Whole blood basic metabolic panel - 04/19 02/04 03:15 Serum or plasma sodium measurement (moles/volume) 131 mmol/L 135-145 Serum or plasma potassium measurement (moles/volume) 3.8 mmol/L 3.6-5.0 Serum or plasma chloride measurement (moles/volume) 86 mmol/L 98-107 Carbon dioxide 34 mmol/L 21-32 Serum or plasma anion gap determination (moles/volume) 11 mmol/L 5-14 Serum or plasma urea nitrogen measurement (mass/volume ) 28 mg/dL 7-18 Serum or plasma creatinine measurement (mass/volume) 2.04 mg/dL 0.60-1.30 Serum or plasma urea nitrogen/creatinine mass ratio 14 NRG Serum or plasma creatinine measurement w ith calculation of estimated glomerular filtration rate 23 NRG Serum or plasma glucose measurement (mass/volume) 263 mg/dL 70-105 Serum or plasma calcium measurement (mass/volume) 8.1 mg/dL 8.5-10.1 Serum or plasma lithium measurement (mol es/volume) - 05/05/19 03:15 BNP PT 777.9 pg/mL <100.0 Capillary blood glucose measurement by g lucometer (mass/volume) - 05/05/19 11:01 Capillary blood glucose measurement by glucometer (mas s/volume) 273 mg/dL 70-110 Complete blood count (CBC) with automate d white blood cell (WBC) differential - 05/07/19 11:35 Blood leukocytes automated count (number/volume) 9.7 10*3/uL 4.3-11.0 Blood erythrocytes automated count (number/volume) 3.74 10*6/uL 4.35-5.85 Venous blood hemoglobin measurement (mass/volume) 9.7 g/dL 11.5-16.0 Blood hematocrit (volume fraction) 31 % 35-52 Automated erythrocyte mean corpuscular volume 83 [ foz_us] 80-99 Automated erythrocyte mean corpuscular h emoglobin (mass per erythrocyte) 26 pg 25-34 Automated erythrocyte mean corpuscular h emoglobin concentration measurement (mass/volume) 31 g/dL 32-36 Automated erythrocyte distribution width ratio 17. 3 % 10.0- 14.5 Automated blood platelet count (count/volume) 366 10*3/uL 130-400 Automated blood platelet mean volume measurement 8.8 [foz_us] 7.4-10.4 Automated blood neutrophils/100 leukocytes 71 % 42-75 Automated blood lymphocytes/100 leukocytes 13 % 12-44 Blood monocytes/100 leukocytes 13 % 0-12 Automated blood eosinophils/100 leukocytes 3 % 0-10 Automated blood basophils/100 leukocytes 0 % 0-10 Blood neutrophils automated count (number/volume) 6.8 10*3 1.8-7.8 Blood lymphocytes automated count (number/volume) 1.3 10*3 1.0-4.0 Blood monocytes automated count (number/volume) 1. 3 10*3 0.0-1.0 Automated eosinophil count 0.3 10*3/uL 0 .0-0.3 Automated blood basophil count (count/volume) 0.0 10*3/uL 0.0-0.1 Blood blood smear finding identification by light micr oscopy YES NRG PT panel in platelet poor plasma by coag ulation assay - 05/07/19 11:35 Prothrombin time (PT) in platelet poor plasma by coagu lation assay 17.0 s 12.2-14.7 INR in platelet poor plasma or blood by coagulation as say 1.3 0.8-1.4 Activated partial thromboplastin time (a PTT) in platelet poor plasma bycoagulation assay - 05/07/19 11:35 Activated partial thromboplastin time (a PTT) in platelet poor plasma bycoagulation assay 41 s 24-35 Comprehensive metabolic panel - 05/07/19 11:35 Serum or plasma sodium measurement (moles/volume) 129 mmol/L 135-145 Serum or plasma potassium measurement (moles/volume) 3.2 mmol/L 3.6-5.0 Serum or plasma chloride measurement (moles/volume) 83 mmol/L 98-107 Carbon dioxide 34 mmol/L 21-32 Serum or plasma anion gap determination (moles/volume) 12 mmol/L 5-14 Serum or plasma urea nitrogen measurement (mass/volume ) 20 mg/dL 7-18 Serum or plasma creatinine measurement (mass/volume) 1.77 mg/dL 0.60-1.30 Serum or plasma urea nitrogen/creatinine mass ratio 11 NRG Serum or plasma creatinine measurement w ith calculation of estimated glomerular filtration rate 28 NRG Serum or plasma glucose measurement (mass/volume) 206 mg/dL 70-105 Serum or plasma calcium measurement (mass/volume) 8.6 mg/dL 8.5-10.1 Serum or plasma total bilirubin measurement (mass/volu me) 0.9 mg/dL 0.1-1.0 Serum or plasma alkaline phosphatase ghanshyam surement (enzymatic activity/volume) 94 U/L 40-136 Serum or plasma aspartate aminotransfera se measurement (enzymatic activity/volume) 19 U/L 5-34 Serum or plasma alanine aminotransferase measurement (enzymatic activity/volume) 10 U/L 0-55 Serum or plasma protein measurement (mass/volume) 6.4 g/dL 6.4-8.2 Serum or plasma albumin measurement (mass/volume) 3.0 g/dL 3.2-4.5 CALCIUM CORRECTED 9.4 mg/dL 8.5-10.1 Magnesium - 05/07/19 11:35 Magnesium 1.7 mg/dL 1.6-2.4 Serum or plasma troponin i.cardiac measu rement (mass/volume) - 05/07/19 11:35 Serum or plasma troponin i.cardiac measurement (mass/v olume) 0.042 ng/mL <0.028 Myoglobin, serum - 05/07/19 11:35 Myoglobin, serum 79.5 ng/mL 10.0-92.0 Serum or plasma lithium measurement (mol es/volume) - 05/07/19 11:35 BNP PT 974.4 pg/mL <100.0 [id number] - 05/07/19 11:35 [id number] SPECIMEN AVAILABLE NRG Serum or plasma troponin i.cardiac measu rement (mass/volume) - 05/07/19 13:35 Serum or plasma troponin i.cardiac measurement (mass/v olume) 0.056 ng/mL <0.028 Complete urinalysis with reflex to cultu re - 05/07/19 14:17 Urine color determination YELLOW NRG Urine clarity determination CLEAR NR G Urine pH measurement by test strip 6 5-9 Specific gravity of urine by test strip 1.010 1.016-1.022 Urine protein assay by test strip, semi-quantitative 2+ NEGATIVE Urine glucose detection by automated test strip 2+ NEGATIVE Erythrocytes detection in urine sediment by light micr oscopy NEGATIVE NEGATIVE Urine ketones detection by automated test strip NE GATIVE NEGATIVE Urine nitrite detection by test strip NEGATIVE NEGATIVE Urine total bilirubin detection by test strip NEGA TIVE NEGATIVE Urine urobilinogen measurement by automated test strip (mass/volume) NORMAL NORMAL Urine leukocyte esterase detection by dipstick 2+ NEGATIVE Automated urine sediment erythrocyte cou nt by microscopy (number/high power field) NONE NRG Automated urine sediment leukocyte count by microscopy (number/high power field) [HPF] NRG Bacteria detection in urine sediment by light microsco py MODERATE NRG Squamous epithelial cells detection in u rine sediment by light microscopy 05-13 NRG Crystals detection in urine sediment by light microsco py PRESENT NRG Casts detection in urine sediment by light microscopy NONE NRG Mucus detection in urine sediment by light microscopy NEGATIVE NRG Complete urinalysis with reflex to culture YES NRG Amorphous sediment detection in urine sediment by ligh t microscopy FEW [place] URATES NRG Bacterial urine culture - 05/07/19 14:17 Bacterial urine culture [id number] NRG COLONY COUNT >100,000/ML NRG FTX;REPORTABLE SUSCEPTIBILITY REPORTED 05/10 12:15 NRG Dirithromycin susceptibility test by dis k diffusion - 05/07/19 14:17 Oxacillin susceptibility test by minimum inhibitory co ncentration > NRG Vancomycin susceptibility test by minimum inhibitory c oncentration 4 NRG Levofloxacin susceptibility test by minimum inhibitory concentration > NRG Rifampin susceptibility test by minimum inhibitory con centration <= NRG Cefazolin susceptibility test by minimum inhibitory co ncentration R NRG Nitrofurantoin susceptibility test by mi nimum inhibitory concentration <= NRG Penicillin G susceptibility test by minimum inhibitory concentration > NRG Serum or plasma troponin i.cardiac measu rement (mass/volume) - 05/07/19 18:15 Serum or plasma troponin i.cardiac measurement (mass/v olume) 0.040 ng/mL <0.028 Capillary blood glucose measurement by g lucometer (mass/volume) - 05/07/19 21:14 Capillary blood glucose measurement by glucometer (mas s/volume) 241 mg/dL 70-110 Complete blood count (CBC) with automate d white blood cell (WBC) differential - 05/08/19 00:58 Blood leukocytes automated count (number/volume) 9.5 10*3/uL 4.3-11.0 Blood erythrocytes automated count (number/volume) 3.93 10*6/uL 4.35-5.85 Venous blood hemoglobin measurement (mass/volume) 10.2 g/dL 11.5-16.0 Blood hematocrit (volume fraction) 32 % 35-52 Automated erythrocyte mean corpuscular volume 82 [ foz_us] 80-99 Automated erythrocyte mean corpuscular h emoglobin (mass per erythrocyte) 26 pg 25-34 Automated erythrocyte mean corpuscular h emoglobin concentration measurement (mass/volume) 32 g/dL 32-36 Automated erythrocyte distribution width ratio 17. 5 % 10.0- 14.5 Automated blood platelet count (count/volume) 423 10*3/uL 130-400 Automated blood platelet mean volume measurement 8.7 [foz_us] 7.4-10.4 Automated blood neutrophils/100 leukocytes 68 % 42-75 Automated blood lymphocytes/100 leukocytes 17 % 12-44 Blood monocytes/100 leukocytes 11 % 0-12 Automated blood eosinophils/100 leukocytes 4 % 0-10 Automated blood basophils/100 leukocytes 0 % 0-10 Blood neutrophils automated count (number/volume) 6.4 10*3 1.8-7.8 Blood lymphocytes automated count (number/volume) 1.6 10*3 1.0-4.0 Blood monocytes automated count (number/volume) 1. 1 10*3 0.0-1.0 Automated eosinophil count 0.3 10*3/uL 0 .0-0.3 Automated blood basophil count (count/volume) 0.0 10*3/uL 0.0-0.1 Whole blood basic metabolic panel - 04/20 00:58 Serum or plasma sodium measurement (moles/volume) 130 mmol/L 135-145 Serum or plasma potassium measurement (moles/volume) 3.3 mmol/L 3.6-5.0 Serum or plasma chloride measurement (moles/volume) 83 mmol/L 98-107 Carbon dioxide 33 mmol/L 21-32 Serum or plasma anion gap determination (moles/volume) 14 mmol/L 5-14 Serum or plasma urea nitrogen measurement (mass/volume ) 20 mg/dL 7-18 Serum or plasma creatinine measurement (mass/volume) 1.62 mg/dL 0.60-1.30 Serum or plasma urea nitrogen/creatinine mass ratio 12 NRG Serum or plasma creatinine measurement w ith calculation of estimated glomerular filtration rate 31 NRG Serum or plasma glucose measurement (mass/volume) 189 mg/dL 70-105 Serum or plasma calcium measurement (mass/volume) 8.7 mg/dL 8.5-10.1 Magnesium - 05/08/19 00:58 Magnesium 1.7 mg/dL 1.6-2.4 Lipid 1996 panel - 05/08/19 00:58 Serum or plasma triglyceride measurement (mass/volume) 74 mg/dL <150 Serum or plasma cholesterol measurement (mass/volume) 68 mg/dL < 200 Serum or plasma cholesterol in HDL measurement (mass/v olume) 20 mg/dL 40-60 Cholesterol in LDL [mass/volume] in serum or plasma by direct assay 34 mg/dL 1-129 Serum or plasma cholesterol in VLDL measurement (mass/ volume) 15 mg/dL 5-40 Serum or plasma troponin i.cardiac measu rement (mass/volume) - 05/08/19 00:58 Serum or plasma troponin i.cardiac measurement (mass/v olume) 0.049 ng/mL <0.028 Complete blood count (CBC) with automate d white blood cell (WBC) differential - 05/28/19 16:25 Blood leukocytes automated count (number/volume) 9.0 10*3/uL 4.3-11.0 Blood erythrocytes automated count (number/volume) 4.21 10*6/uL 4.35-5.85 Venous blood hemoglobin measurement (mass/volume) 9.9 g/dL 11.5-16.0 Blood hematocrit (volume fraction) 34 % 35-52 Automated erythrocyte mean corpuscular volume 80 [ foz_us] 80-99 Automated erythrocyte mean corpuscular h emoglobin (mass per erythrocyte) 24 pg 25-34 Automated erythrocyte mean corpuscular h emoglobin concentration measurement (mass/volume) 30 g/dL 32-36 Automated erythrocyte distribution width ratio 20. 1 % 10.0- 14.5 Automated blood platelet count (count/volume) 380 10*3/uL 130-400 Automated blood platelet mean volume measurement 8.9 [foz_us] 7.4-10.4 Automated blood neutrophils/100 leukocytes 67 % 42-75 Automated blood lymphocytes/100 leukocytes 21 % 12-44 Blood monocytes/100 leukocytes 10 % 0-12 Automated blood eosinophils/100 leukocytes 2 % 0-10 Automated blood basophils/100 leukocytes 0 % 0-10 Blood neutrophils automated count (number/volume) 6.0 10*3 1.8-7.8 Blood lymphocytes automated count (number/volume) 1.9 10*3 1.0-4.0 Blood monocytes automated count (number/volume) 0. 9 10*3 0.0-1.0 Automated eosinophil count 0.2 10*3/uL 0 .0-0.3 Automated blood basophil count (count/volume) 0.0 10*3/uL 0.0-0.1 Comprehensive metabolic panel - 05/28/19 16:25 Serum or plasma sodium measurement (moles/volume) 137 mmol/L 135-145 Serum or plasma potassium measurement (moles/volume) 4.4 mmol/L 3.6-5.0 Serum or plasma chloride measurement (moles/volume) 96 mmol/L 98-107 Carbon dioxide 27 mmol/L 21-32 Serum or plasma anion gap determination (moles/volume) 14 mmol/L 5-14 Serum or plasma urea nitrogen measurement (mass/volume ) 26 mg/dL 7-18 Serum or plasma creatinine measurement (mass/volume) 1.75 mg/dL 0.60-1.30 Serum or plasma urea nitrogen/creatinine mass ratio 15 NRG Serum or plasma creatinine measurement w ith calculation of estimated glomerular filtration rate 28 NRG Serum or plasma glucose measurement (mass/volume) 145 mg/dL 70-105 Serum or plasma calcium measurement (mass/volume) 9.4 mg/dL 8.5-10.1 Serum or plasma total bilirubin measurement (mass/volu me) 0.6 mg/dL 0.1-1.0 Serum or plasma alkaline phosphatase ghanshyam surement (enzymatic activity/volume) 115 U/L 40-136 Serum or plasma aspartate aminotransfera se measurement (enzymatic activity/volume) 30 U/L 5-34 Serum or plasma alanine aminotransferase measurement (enzymatic activity/volume) 23 U/L 0-55 Serum or plasma protein measurement (mass/volume) 7.4 g/dL 6.4-8.2 Serum or plasma albumin measurement (mass/volume) 3.1 g/dL 3.2-4.5 CALCIUM CORRECTED 10.1 mg/dL 8.5-10.1 Magnesium - 05/28/19 16:25 Magnesium 2.0 mg/dL 1.6-2.4 Complete blood count (CBC) with automate d white blood cell (WBC) differential - 06/03/19 10:50 Blood leukocytes automated count (number/volume) 9.4 10*3/uL 4.3-11.0 Blood erythrocytes automated count (number/volume) 4.42 10*6/uL 4.35-5.85 Venous blood hemoglobin measurement (mass/volume) 9.9 g/dL 11.5-16.0 Blood hematocrit (volume fraction) 34 % 35-52 Automated erythrocyte mean corpuscular volume 77 [ foz_us] 80-99 Automated erythrocyte mean corpuscular h emoglobin (mass per erythrocyte) 22 pg 25-34 Automated erythrocyte mean corpuscular h emoglobin concentration measurement (mass/volume) 29 g/dL 32-36 Automated erythrocyte distribution width ratio 20. 4 % 10.0- 14.5 Automated blood platelet count (count/volume) 382 10*3/uL 130-400 Automated blood platelet mean volume measurement 9.0 [foz_us] 7.4-10.4 Automated blood neutrophils/100 leukocytes 59 % 42-75 Automated blood lymphocytes/100 leukocytes 22 % 12-44 Blood monocytes/100 leukocytes 14 % 0-12 Automated blood eosinophils/100 leukocytes 4 % 0-10 Automated blood basophils/100 leukocytes 0 % 0-10 Blood neutrophils automated count (number/volume) 5.6 10*3 1.8-7.8 Blood lymphocytes automated count (number/volume) 2.1 10*3 1.0-4.0 Blood monocytes automated count (number/volume) 1. 4 10*3 0.0-1.0 Automated eosinophil count 0.4 10*3/uL 0 .0-0.3 Automated blood basophil count (count/volume) 0.0 10*3/uL 0.0-0.1 Blood blood smear finding identification by light micr oscopy YES NRG Blood lactic acid measurement (moles/vol ume) - 06/03/19 10:50 Blood lactic acid measurement (moles/volume) 2.09 mmol/L 0.50-2.00 Comprehensive metabolic panel - 06/03/19 10:50 Serum or plasma sodium measurement (moles/volume) 133 mmol/L 135-145 Serum or plasma potassium measurement (moles/volume) 4.0 mmol/L 3.6-5.0 Serum or plasma chloride measurement (moles/volume) 91 mmol/L 98-107 Carbon dioxide 26 mmol/L 21-32 Serum or plasma anion gap determination (moles/volume) 16 mmol/L 5-14 Serum or plasma urea nitrogen measurement (mass/volume ) 29 mg/dL 7-18 Serum or plasma creatinine measurement (mass/volume) 1.95 mg/dL 0.60-1.30 Serum or plasma urea nitrogen/creatinine mass ratio 15 NRG Serum or plasma creatinine measurement w ith calculation of estimated glomerular filtration rate 25 NRG Serum or plasma glucose measurement (mass/volume) 175 mg/dL 70-105 Serum or plasma calcium measurement (mass/volume) 9.4 mg/dL 8.5-10.1 Serum or plasma total bilirubin measurement (mass/volu me) 0.7 mg/dL 0.1-1.0 Serum or plasma alkaline phosphatase ghanshyam surement (enzymatic activity/volume) 123 U/L 40-136 Serum or plasma aspartate aminotransfera se measurement (enzymatic activity/volume) 26 U/L 5-34 Serum or plasma alanine aminotransferase measurement (enzymatic activity/volume) 13 U/L 0-55 Serum or plasma protein measurement (mass/volume) 7.7 g/dL 6.4-8.2 Serum or plasma albumin measurement (mass/volume) 3.3 g/dL 3.2-4.5 CALCIUM CORRECTED 10.0 mg/dL 8.5-10.1 PT panel in platelet poor plasma by coag ulation assay - 06/03/19 10:50 Prothrombin time (PT) in platelet poor plasma by coagu lation assay 20.9 s 12.2-14.7 INR in platelet poor plasma or blood by coagulation as say 1.7 0.8-1.4 Activated partial thromboplastin time (a PTT) in platelet poor plasma bycoagulation assay - 06/03/19 10:50 Activated partial thromboplastin time (a PTT) in platelet poor plasma bycoagulation assay 39 s 24-35 Serum or plasma troponin i.cardiac measu rement (mass/volume) - 06/03/19 10:50 Serum or plasma troponin i.cardiac measurement (mass/v olume) 0.056 ng/mL <0.028 Serum or plasma lithium measurement (mol es/volume) - 06/03/19 10:50 BNP PT 1045.5 pg/mL <100.0 PROCALCITONIN (PCT) - 06/03/19 10:50 PROCALCITONIN (PCT) 0.13 ng/mL <0.10 Bacterial blood culture - 06/03/19 10:50 Bacterial blood culture NG NRG Capillary blood glucose measurement by g lucometer (mass/volume) - 06/03/19 11:10 Capillary blood glucose measurement by glucometer (mas s/volume) 217 mg/dL 70-110 Bacterial blood culture - 06/03/19 11:11 Bacterial blood culture NG NRG Complete urinalysis with reflex to cultu re - 06/03/19 11:40 Urine color determination YELLOW NRG Urine clarity determination CLEAR NR G Urine pH measurement by test strip 6.5 5-9 Specific gravity of urine by test strip 1.010 1.016-1.022 Urine protein assay by test strip, semi-quantitative NEGATIVE NEGATIVE Urine glucose detection by automated test strip NE GATIVE NEGATIVE Erythrocytes detection in urine sediment by light micr oscopy NEGATIVE NEGATIVE Urine ketones detection by automated test strip NE GATIVE NEGATIVE Urine nitrite detection by test strip NEGATIVE NEGATIVE Urine total bilirubin detection by test strip NEGA TIVE NEGATIVE Urine urobilinogen measurement by automated test strip (mass/volume) 0.2 mg/dL < = 1.0 Urine leukocyte esterase detection by dipstick NEG ATIVE NEGATIVE Automated urine sediment erythrocyte cou nt by microscopy (number/high power field) NONE NRG Automated urine sediment leukocyte count by microscopy (number/high power field) [HPF] NRG Bacteria detection in urine sediment by light microsco py NEGATIVE NRG Squamous epithelial cells detection in u rine sediment by light microscopy 2-5 NRG Crystals detection in urine sediment by light microsco py NONE NRG Casts detection in urine sediment by light microscopy NONE NRG Mucus detection in urine sediment by light microscopy NEGATIVE NRG Complete urinalysis with reflex to culture NO NRG Bacterial urine culture - 06/03/19 11:40 Bacterial urine culture NG NRG Influenza virus A and B antigen detectio n - 06/03/19 11:43 FLU RESULT NEGATIVE FOR INFLUENZA A AND B ANTIGENS BY IA NRG Gram stain microscopy - 06/03/19 11:50 Gram stain microscopy NO BACTERIA SEEN NRG Bacteria identification in wound by cult ure - 06/03/19 11:50 Bacteria identification in wound by culture [id number] NRG FREE TEXT EXTERNAL SEE COMMENT NRG QUANTITY OF GROWTH PREDOMINANCE NRG Serum or plasma lactate measurement (mol es/volume) - 06/03/19 13:20 Serum or plasma lactate measurement (moles/volume) 2.80 mmol/L 0.50-2.00 Capillary blood glucose measurement by g lucometer (mass/volume) - 06/03/19 15:17 Capillary blood glucose measurement by glucometer (mas s/volume) 191 mg/dL 70-110 Blood lactic acid measurement (moles/vol ume) - 06/03/19 15:35 Blood lactic acid measurement (moles/volume) 1.73 mmol/L 0.50-2.00 Capillary blood glucose measurement by g lucometer (mass/volume) - 06/03/19 20:37 Capillary blood glucose measurement by glucometer (mas s/volume) 212 mg/dL 70-110 Complete blood count (CBC) with automate d white blood cell (WBC) differential - 06/04/19 05:30 Blood leukocytes automated count (number/volume) 8.6 10*3/uL 4.3-11.0 Blood erythrocytes automated count (number/volume) 3.89 10*6/uL 4.35-5.85 Venous blood hemoglobin measurement (mass/volume) 8.7 g/dL 11.5-16.0 Blood hematocrit (volume fraction) 30 % 35-52 Automated erythrocyte mean corpuscular volume 77 [ foz_us] 80-99 Automated erythrocyte mean corpuscular h emoglobin (mass per erythrocyte) 22 pg 25-34 Automated erythrocyte mean corpuscular h emoglobin concentration measurement (mass/volume) 29 g/dL 32-36 Automated erythrocyte distribution width ratio 20. 3 % 10.0- 14.5 Automated blood platelet count (count/volume) 338 10*3/uL 130-400 Automated blood platelet mean volume measurement 9.0 [foz_us] 7.4-10.4 Automated blood neutrophils/100 leukocytes 61 % 42-75 Automated blood lymphocytes/100 leukocytes 24 % 12-44 Blood monocytes/100 leukocytes 12 % 0-12 Automated blood eosinophils/100 leukocytes 3 % 0-10 Automated blood basophils/100 leukocytes 0 % 0-10 Blood neutrophils automated count (number/volume) 5.2 10*3 1.8-7.8 Blood lymphocytes automated count (number/volume) 2.1 10*3 1.0-4.0 Blood monocytes automated count (number/volume) 1. 0 10*3 0.0-1.0 Automated eosinophil count 0.3 10*3/uL 0 .0-0.3 Automated blood basophil count (count/volume) 0.0 10*3/uL 0.0-0.1 Comprehensive metabolic panel - 06/04/19 05:30 Serum or plasma sodium measurement (moles/volume) 133 mmol/L 135-145 Serum or plasma potassium measurement (moles/volume) 3.5 mmol/L 3.6-5.0 Serum or plasma chloride measurement (moles/volume) 97 mmol/L 98-107 Carbon dioxide 24 mmol/L 21-32 Serum or plasma anion gap determination (moles/volume) 12 mmol/L 5-14 Serum or plasma urea nitrogen measurement (mass/volume ) 25 mg/dL 7-18 Serum or plasma creatinine measurement (mass/volume) 1.61 mg/dL 0.60-1.30 Serum or plasma urea nitrogen/creatinine mass ratio 16 NRG Serum or plasma creatinine measurement w ith calculation of estimated glomerular filtration rate 31 NRG Serum or plasma glucose measurement (mass/volume) 91 mg/dL 70-105 Serum or plasma calcium measurement (mass/volume) 8.1 mg/dL 8.5-10.1 Serum or plasma total bilirubin measurement (mass/volu me) 0.5 mg/dL 0.1-1.0 Serum or plasma alkaline phosphatase ghanshyam surement (enzymatic activity/volume) 102 U/L 40-136 Serum or plasma aspartate aminotransfera se measurement (enzymatic activity/volume) 22 U/L 5-34 Serum or plasma alanine aminotransferase measurement (enzymatic activity/volume) 12 U/L 0-55 Serum or plasma protein measurement (mass/volume) 6.5 g/dL 6.4-8.2 Serum or plasma albumin measurement (mass/volume) 2.9 g/dL 3.2-4.5 CALCIUM CORRECTED 9.0 mg/dL 8.5-10.1 PROCALCITONIN (PCT) - 06/04/19 05:30 PROCALCITONIN (PCT) 0.10 ng/mL <0.10 Capillary blood glucose measurement by g lucometer (mass/volume) - 06/04/19 05:33 Capillary blood glucose measurement by glucometer (mas s/volume) 102 mg/dL 70-110 Pathologist review of blood test by comm ent - 07/12/19 11:05 Blood leukocytes automated count (number/volume) 7.3 10*3/uL 4.3-11.0 Blood erythrocytes automated count (number/volume) 4.67 10*6/uL 4.35-5.85 Venous blood hemoglobin measurement (mass/volume) 9.1 g/dL 11.5-16.0 Blood hematocrit (volume fraction) 32 % 35-52 Automated erythrocyte mean corpuscular volume 68 [ foz_us] 80-99 Automated erythrocyte mean corpuscular h emoglobin (mass per erythrocyte) 20 pg 25-34 Automated erythrocyte mean corpuscular h emoglobin concentration measurement (mass/volume) 29 g/dL 32-36 Automated erythrocyte distribution width ratio 21. 2 % 10.0- 14.5 Automated blood platelet count (count/volume) 186 10*3/uL 130-400 Automated blood platelet mean volume measurement 9.3 [foz_us] 7.4-10.4 Automated blood neutrophils/100 leukocytes 58 % 42-75 Automated blood lymphocytes/100 leukocytes 25 % 12-44 Blood monocytes/100 leukocytes 9 % NRG Automated blood eosinophils/100 leukocytes 4 % 0-10 Automated blood basophils/100 leukocytes 1 % 0-10 Blood neutrophils automated count (number/volume) 4.2 10*3 1.8-7.8 Blood lymphocytes automated count (number/volume) 1.8 10*3 1.0-4.0 Blood monocytes automated count (number/volume) 0. 9 10*3 0.0-1.0 Automated eosinophil count 0.3 10*3/uL 0 .0-0.3 Automated blood basophil count (count/volume) 0.1 10*3/uL 0.0-0.1 Manual blood segmented neutrophils/100 leukocytes 62 % NRG Manual blood lymphocytes/100 leukocytes 26 % NRG Manual eosinophils/100 leukocytes in nose 1 % NRG Manual blood basophils/100 leukocytes 2 % NRG Blood anisocytosis detection by light microscopy M ARKED NRG Blood macrocytes detection by light microscopy SLI GHT NRG Blood poikilocytosis detection by light microscopy SLIGHT NRG Manual blood nucleated erythrocytes/100 leukocytes ratio 1 NRG Blood hypochromia detection by light microscopy MA RKED NRG Blood microcytes detection by light microscopy MAR KED NRG Blood reticulocytes count (number/volume) 96 10*9/ L 24-90 Blood reticulocytes/100 erythrocytes 2.06 % 0.50-2.40 Blood spherocytes detection by light microscopy SL IGHT NRG Blood CBC with ordered manual differenti al panel - 07/19/19 12:56 Blood leukocytes automated count (number/volume) 6.7 10*3/uL 4.3-11.0 Blood erythrocytes automated count (number/volume) 4.97 10*6/uL 4.35-5.85 Venous blood hemoglobin measurement (mass/volume) 9.2 g/dL 11.5-16.0 Blood hematocrit (volume fraction) 32 % 35-52 Automated erythrocyte mean corpuscular volume 65 [ foz_us] 80-99 Automated erythrocyte mean corpuscular h emoglobin (mass per erythrocyte) 19 pg 25-34 Automated erythrocyte mean corpuscular h emoglobin concentration measurement (mass/volume) 29 g/dL 32-36 Automated erythrocyte distribution width ratio 21. 8 % 10.0- 14.5 Automated blood platelet count (count/volume) 188 10*3/uL 130-400 Automated blood platelet mean volume measurement 9.7 [foz_us] 7.4-10.4 Automated blood neutrophils/100 leukocytes 56 % 42-75 Automated blood lymphocytes/100 leukocytes 25 % 12-44 Blood monocytes/100 leukocytes 10 % NRG Automated blood eosinophils/100 leukocytes 4 % 0-10 Automated blood basophils/100 leukocytes 1 % 0-10 Blood neutrophils automated count (number/volume) 3.8 10*3 1.8-7.8 Blood lymphocytes automated count (number/volume) 1.7 10*3 1.0-4.0 Blood monocytes automated count (number/volume) 1. 0 10*3 0.0-1.0 Automated eosinophil count 0.2 10*3/uL 0 .0-0.3 Automated blood basophil count (count/volume) 0.0 10*3/uL 0.0-0.1 Manual blood segmented neutrophils/100 leukocytes 59 % NRG Manual blood lymphocytes/100 leukocytes 24 % NRG Manual eosinophils/100 leukocytes in nose 6 % NRG Manual blood basophils/100 leukocytes 1 % NRG Blood polychromasia detection by light microscopy SLIGHT NRG Blood anisocytosis detection by light microscopy M ARKED NRG Blood toxic granules detection by light microscopy 1+ NRG Blood poikilocytosis detection by light microscopy SLIGHT NRG Manual blood nucleated erythrocytes/100 leukocytes ratio 1 NRG Blood hypochromia detection by light microscopy MO DERATE NRG Blood microcytes detection by light microscopy MOD ERATE NRG Automated reticulocyte percentage - 06/21 08/07 12:56 Blood reticulocytes count (number/volume) 73 10*9/ L 24-90 Blood reticulocytes/100 erythrocytes 1.46 % 0.50-2.40 Serum iron and total iron binding capaci ty panel - 07/19/19 12:56 TIBC 456 H 280-380 UIBC 437 ug/dL 55-450 Serum or plasma iron measurement (mass/volume) 19 L 35-180 Total iron binding capacity and transferrin saturation measurement 4 L 15-50 Serum or plasma ferritin measurement (mass/volume) 20.6 ng/mL 20.0-177.0 Microscopic examination by JARAD preparati on - 07/21/19 12:51 JARDA RESULT NEGATIVE; NO FUNGAL ELEMENTS OBSERVED NRG Complete blood count (CBC) with automate d white blood cell (WBC) differential - 07/23/19 15:36 Blood leukocytes automated count (number/volume) 6.4 10*3/uL 4.3-11.0 Blood erythrocytes automated count (number/volume) 4.87 10*6/uL 4.35-5.85 Venous blood hemoglobin measurement (mass/volume) 8.9 g/dL 11.5-16.0 Blood hematocrit (volume fraction) 31 % 35-52 Automated erythrocyte mean corpuscular volume 63 [ foz_us] 80-99 Automated erythrocyte mean corpuscular h emoglobin (mass per erythrocyte) 18 pg 25-34 Automated erythrocyte mean corpuscular h emoglobin concentration measurement (mass/volume) 29 g/dL 32-36 Automated erythrocyte distribution width ratio 22. 2 % 10.0- 14.5 Automated blood platelet count (count/volume) 194 10*3/uL 130-400 Automated blood platelet mean volume measurement 9.9 [foz_us] 7.4-10.4 Automated blood neutrophils/100 leukocytes 43 % 42-75 Automated blood lymphocytes/100 leukocytes 39 % 12-44 Blood monocytes/100 leukocytes 14 % 0-12 Automated blood eosinophils/100 leukocytes 4 % 0-10 Automated blood basophils/100 leukocytes 1 % 0-10 Blood neutrophils automated count (number/volume) 2.7 10*3 1.8-7.8 Blood lymphocytes automated count (number/volume) 2.5 10*3 1.0-4.0 Blood monocytes automated count (number/volume) 0. 9 10*3 0.0-1.0 Automated eosinophil count 0.3 10*3/uL 0 .0-0.3 Automated blood basophil count (count/volume) 0.0 10*3/uL 0.0-0.1 PT panel in platelet poor plasma by coag ulation assay - 07/23/19 15:36 Prothrombin time (PT) in platelet poor plasma by coagu lation assay 25.9 s 12.2-14.7 INR in platelet poor plasma or blood by coagulation as say 2.3 0.8-1.4 Activated partial thromboplastin time (a PTT) in platelet poor plasma bycoagulation assay - 07/23/19 15:36 Activated partial thromboplastin time (a PTT) in platelet poor plasma bycoagulation assay 40 s 24-35 Fibrin D-dimer FEU measurement in platel et poor plasma (mass/volume) - 07/23/19 15:36 Fibrin D-dimer FEU measurement in platelet poor plasma (mass/volume) 0.95 ug/mL 0.00-0.49 Comprehensive metabolic panel - 07/23/19 15:36 Serum or plasma sodium measurement (moles/volume) 136 mmol/L 135-145 Serum or plasma potassium measurement (moles/volume) 4.1 mmol/L 3.6-5.0 Serum or plasma chloride measurement (moles/volume) 102 mmol/L 98-107 Carbon dioxide 22 mmol/L 21-32 Serum or plasma anion gap determination (moles/volume) 12 mmol/L 5-14 Serum or plasma urea nitrogen measurement (mass/volume ) 19 mg/dL 7-18 Serum or plasma creatinine measurement (mass/volume) 2.22 mg/dL 0.60-1.30 Serum or plasma urea nitrogen/creatinine mass ratio 9 NRG Serum or plasma creatinine measurement w ith calculation of estimated glomerular filtration rate 21 NRG Serum or plasma glucose measurement (mass/volume) 169 mg/dL 70-105 Serum or plasma calcium measurement (mass/volume) 8.8 mg/dL 8.5-10.1 Serum or plasma total bilirubin measurement (mass/volu me) 0.6 mg/dL 0.1-1.0 Serum or plasma alkaline phosphatase ghanshyam surement (enzymatic activity/volume) 119 U/L 40-136 Serum or plasma aspartate aminotransfera se measurement (enzymatic activity/volume) 19 U/L 5-34 Serum or plasma alanine aminotransferase measurement (enzymatic activity/volume) 10 U/L 0-55 Serum or plasma protein measurement (mass/volume) 7.0 g/dL 6.4-8.2 Serum or plasma albumin measurement (mass/volume) 3.5 g/dL 3.2-4.5 CALCIUM CORRECTED 9.2 mg/dL 8.5-10.1 Serum or plasma troponin i.cardiac measu rement (mass/volume) - 07/23/19 15:36 Serum or plasma troponin i.cardiac measurement (mass/v olume) < ng/mL <0.028 Complete urinalysis with reflex to cultu re - 07/23/19 16:34 Urine color determination YELLOW NRG Urine clarity determination SL CLOUDY N RG Urine pH measurement by test strip 7.0 5-9 Specific gravity of urine by test strip 1.020 1.016-1.022 Urine protein assay by test strip, semi-quantitative NEGATIVE NEGATIVE Urine glucose detection by automated test strip NE GATIVE NEGATIVE Erythrocytes detection in urine sediment by light micr oscopy TRACE-I NEGATIVE Urine ketones detection by automated test strip NE GATIVE NEGATIVE Urine nitrite detection by test strip POSITIVE NEGATIVE Urine total bilirubin detection by test strip NEGA TIVE NEGATIVE Urine urobilinogen measurement by automated test strip (mass/volume) 0.2 mg/dL < = 1.0 Urine leukocyte esterase detection by dipstick 2+ NEGATIVE Automated urine sediment erythrocyte cou nt by microscopy (number/high power field) [HPF] NRG Automated urine sediment leukocyte count by microscopy (number/high power field) [HPF] NRG Bacteria detection in urine sediment by light microsco py MODERATE NRG Squamous epithelial cells detection in u rine sediment by light microscopy 2-5 NRG Crystals detection in urine sediment by light microsco py NONE NRG Casts detection in urine sediment by light microscopy NONE NRG Mucus detection in urine sediment by light microscopy NEGATIVE NRG Complete urinalysis with reflex to culture YES NRG Bacterial urine culture - 07/23/19 16:34 Bacterial urine culture [id number] NRG COLONY COUNT >100,000/ML NRG FTX;REPORTABLE SUSCEPTIBILITY REPORTED 07/26 09:30 NRG FREE TEXT ENTRY 2 BOTH ID'S CONFIRMED BY RML NRG Dirithromycin susceptibility test by dis k diffusion - 07/23/19 16:34 Gentamicin susceptibility test by minimum inhibitory c oncentration <= NRG Trimethoprim/sulfamethoxazole susceptibi lity test by minimum inhibitoryconcentration > NRG Levofloxacin susceptibility test by minimum inhibitory concentration > NRG Ampicillin susceptibility test by minimum inhibitory c oncentration > NRG Cefazolin susceptibility test by minimum inhibitory co ncentration > NRG Ceftriaxone susceptibility test by minimum inhibitory concentration > NRG Ciprofloxacin susceptibility test by minimum inhibitor y concentration > NRG Meropenem susceptibility test by minimum inhibitory co ncentration <= NRG Nitrofurantoin susceptibility test by mi nimum inhibitory concentration <= NRG Amoxicillin and clavulanate potassium susc CHERRY R NRG Dirithromycin susceptibility test by dis k diffusion - 07/23/19 16:34 Gentamicin susceptibility test by minimum inhibitory c oncentration <= NRG Levofloxacin susceptibility test by minimum inhibitory concentration > NRG Tobramycin susceptibility test by minimum inhibitory c oncentration <= NRG Piperacillin/tazobactam susceptibility t est by minimum inhibitory concentration = NRG Ciprofloxacin susceptibility test by minimum inhibitor y concentration > NRG Meropenem susceptibility test by minimum inhibitory co ncentration 1 NRG Aztreonam susceptibility test by minimum inhibitory co ncentration <= NRG Cefepime susceptibility test by minimum inhibitory con centration <= NRG Imipenem susceptibility test by minimum inhibitory con centration > NRG Ceftazidime susceptibility test by minimum inhibitory concentration <= NRG Capillary blood glucose measurement by g lucometer (mass/volume) - 07/23/19 17:17 Capillary blood glucose measurement by glucometer (mas s/volume) 107 mg/dL 70-110 Capillary blood glucose measurement by g lucometer (mass/volume) - 07/24/19 05:17 Capillary blood glucose measurement by glucometer (mas s/volume) 78 mg/dL 70-110 Blood CBC with ordered manual differenti al panel - 07/24/19 06:05 Blood leukocytes automated count (number/volume) 5.2 10*3/uL 4.3-11.0 Blood erythrocytes automated count (number/volume) 4.67 10*6/uL 4.35-5.85 Venous blood hemoglobin measurement (mass/volume) 8.6 g/dL 11.5-16.0 Blood hematocrit (volume fraction) 30 % 35-52 Automated erythrocyte mean corpuscular volume 64 [ foz_us] 80-99 Automated erythrocyte mean corpuscular h emoglobin (mass per erythrocyte) 18 pg 25-34 Automated erythrocyte mean corpuscular h emoglobin concentration measurement (mass/volume) 29 g/dL 32-36 Automated erythrocyte distribution width ratio 21. 6 % 10.0- 14.5 Automated blood platelet count (count/volume) 150 10*3/uL 130-400 Automated blood platelet mean volume measurement 9.5 [foz_us] 7.4-10.4 Automated blood neutrophils/100 leukocytes 49 % 42-75 Automated blood lymphocytes/100 leukocytes 30 % 12-44 Blood monocytes/100 leukocytes 13 % NRG Automated blood eosinophils/100 leukocytes 4 % 0-10 Automated blood basophils/100 leukocytes 1 % 0-10 Blood neutrophils automated count (number/volume) 2.5 10*3 1.8-7.8 Blood lymphocytes automated count (number/volume) 1.6 10*3 1.0-4.0 Blood monocytes automated count (number/volume) 0. 9 10*3 0.0-1.0 Automated eosinophil count 0.2 10*3/uL 0 .0-0.3 Automated blood basophil count (count/volume) 0.0 10*3/uL 0.0-0.1 Manual blood segmented neutrophils/100 leukocytes 53 % NRG Manual blood lymphocytes/100 leukocytes 31 % NRG Manual eosinophils/100 leukocytes in nose 3 % NRG Blood anisocytosis detection by light microscopy M ODERATE NRG Blood macrocytes detection by light microscopy MOD ERATE NRG Blood microcytes detection by light microscopy MAR KED NRG Comprehensive metabolic panel - 07/24/19 06:05 Serum or plasma sodium measurement (moles/volume) 140 mmol/L 135-145 Serum or plasma potassium measurement (moles/volume) 3.7 mmol/L 3.6-5.0 Serum or plasma chloride measurement (moles/volume) 105 mmol/L 98-107 Carbon dioxide 24 mmol/L 21-32 Serum or plasma anion gap determination (moles/volume) 11 mmol/L 5-14 Serum or plasma urea nitrogen measurement (mass/volume ) 19 mg/dL 7-18 Serum or plasma creatinine measurement (mass/volume) 2.11 mg/dL 0.60-1.30 Serum or plasma urea nitrogen/creatinine mass ratio 9 NRG Serum or plasma creatinine measurement w ith calculation of estimated glomerular filtration rate 23 NRG Serum or plasma glucose measurement (mass/volume) 73 mg/dL 70-105 Serum or plasma calcium measurement (mass/volume) 8.8 mg/dL 8.5-10.1 Serum or plasma total bilirubin measurement (mass/volu me) 0.6 mg/dL 0.1-1.0 Serum or plasma alkaline phosphatase ghanshyam surement (enzymatic activity/volume) 98 U/L 40-136 Serum or plasma aspartate aminotransfera se measurement (enzymatic activity/volume) 17 U/L 5-34 Serum or plasma alanine aminotransferase measurement (enzymatic activity/volume) 10 U/L 0-55 Serum or plasma protein measurement (mass/volume) 6.5 g/dL 6.4-8.2 Serum or plasma albumin measurement (mass/volume) 3.2 g/dL 3.2-4.5 CALCIUM CORRECTED 9.4 mg/dL 8.5-10.1 Lipid 1996 panel - 07/24/19 06:05 Serum or plasma triglyceride measurement (mass/volume) 51 mg/dL <150 Serum or plasma cholesterol measurement (mass/volume) 58 mg/dL < 200 Serum or plasma cholesterol in HDL measurement (mass/v olume) 22 mg/dL 40-60 Cholesterol in LDL [mass/volume] in serum or plasma by direct assay 30 mg/dL 1-129 Serum or plasma cholesterol in VLDL measurement (mass/ volume) 10 mg/dL 5-40 Capillary blood glucose measurement by g lucometer (mass/volume) - 07/24/19 10:57 Capillary blood glucose measurement by glucometer (mas s/volume) 116 mg/dL 70-110 Capillary blood glucose measurement by g lucometer (mass/volume) - 07/24/19 16:00 Capillary blood glucose measurement by glucometer (mas s/volume) 116 mg/dL 70-110 Capillary blood glucose measurement by g lucometer (mass/volume) - 07/24/19 21:08 Capillary blood glucose measurement by glucometer (mas s/volume) 92 mg/dL 70-110 Complete blood count (CBC) with automate d white blood cell (WBC) differential - 07/25/19 05:10 Blood leukocytes automated count (number/volume) 4.9 10*3/uL 4.3-11.0 Blood erythrocytes automated count (number/volume) 4.63 10*6/uL 4.35-5.85 Venous blood hemoglobin measurement (mass/volume) 8.6 g/dL 11.5-16.0 Blood hematocrit (volume fraction) 30 % 35-52 Automated erythrocyte mean corpuscular volume 64 [ foz_us] 80-99 Automated erythrocyte mean corpuscular h emoglobin (mass per erythrocyte) 19 pg 25-34 Automated erythrocyte mean corpuscular h emoglobin concentration measurement (mass/volume) 29 g/dL 32-36 Automated erythrocyte distribution width ratio 21. 8 % 10.0- 14.5 Automated blood platelet count (count/volume) 155 10*3/uL 130-400 Automated blood platelet mean volume measurement 9.5 [foz_us] 7.4-10.4 Automated blood neutrophils/100 leukocytes 55 % 42-75 Automated blood lymphocytes/100 leukocytes 28 % 12-44 Blood monocytes/100 leukocytes 15 % 0-12 Automated blood eosinophils/100 leukocytes 2 % 0-10 Automated blood basophils/100 leukocytes 1 % 0-10 Blood neutrophils automated count (number/volume) 2.7 10*3 1.8-7.8 Blood lymphocytes automated count (number/volume) 1.4 10*3 1.0-4.0 Blood monocytes automated count (number/volume) 0. 7 10*3 0.0-1.0 Automated eosinophil count 0.1 10*3/uL 0 .0-0.3 Automated blood basophil count (count/volume) 0.0 10*3/uL 0.0-0.1 Comprehensive metabolic panel - 07/25/19 05:10 Serum or plasma sodium measurement (moles/volume) 139 mmol/L 135-145 Serum or plasma potassium measurement (moles/volume) 4.0 mmol/L 3.6-5.0 Serum or plasma chloride measurement (moles/volume) 106 mmol/L 98-107 Carbon dioxide 22 mmol/L 21-32 Serum or plasma anion gap determination (moles/volume) 11 mmol/L 5-14 Serum or plasma urea nitrogen measurement (mass/volume ) 19 mg/dL 7-18 Serum or plasma creatinine measurement (mass/volume) 2.03 mg/dL 0.60-1.30 Serum or plasma urea nitrogen/creatinine mass ratio 9 NRG Serum or plasma creatinine measurement w ith calculation of estimated glomerular filtration rate 24 NRG Serum or plasma glucose measurement (mass/volume) 39 mg/dL 70-105 Serum or plasma calcium measurement (mass/volume) 8.8 mg/dL 8.5-10.1 Serum or plasma total bilirubin measurement (mass/volu me) 0.7 mg/dL 0.1-1.0 Serum or plasma alkaline phosphatase ghanshyam surement (enzymatic activity/volume) 97 U/L 40-136 Serum or plasma aspartate aminotransfera se measurement (enzymatic activity/volume) 21 U/L 5-34 Serum or plasma alanine aminotransferase measurement (enzymatic activity/volume) 11 U/L 0-55 Serum or plasma protein measurement (mass/volume) 6.5 g/dL 6.4-8.2 Serum or plasma albumin measurement (mass/volume) 3.3 g/dL 3.2-4.5 CALCIUM CORRECTED 9.4 mg/dL 8.5-10.1 Hemoglobin A1c measurement - 07/25/19 05 :30 Blood hemoglobin A1C measurement (mass/volume) 7.7 % 4.0-5.6 MEAN BLOOD GLUCOSE 174 % <=126 Capillary blood glucose measurement by g lucometer (mass/volume) - 07/25/19 06:17 Capillary blood glucose measurement by glucometer (mas s/volume) 64 mg/dL 70-110 Capillary blood glucose measurement by g lucometer (mass/volume) - 07/25/19 06:36 Capillary blood glucose measurement by glucometer (mas s/volume) 122 mg/dL 70-110 Capillary blood glucose measurement by g lucometer (mass/volume) - 07/25/19 12:06 Capillary blood glucose measurement by glucometer (mas s/volume) 280 mg/dL 70-110 Capillary blood glucose measurement by g lucometer (mass/volume) - 07/25/19 15:58 Capillary blood glucose measurement by glucometer (mas s/volume) 180 mg/dL 70-110 Capillary blood glucose measurement by g lucometer (mass/volume) - 07/25/19 20:42 Capillary blood glucose measurement by glucometer (mas s/volume) 126 mg/dL 70-110 Capillary blood glucose measurement by g lucometer (mass/volume) - 07/26/19 03:51 Capillary blood glucose measurement by glucometer (mas s/volume) 54 mg/dL 70-110 Whole blood basic metabolic panel - 02/05 06:38 Serum or plasma sodium measurement (moles/volume) 135 mmol/L 135-145 Serum or plasma potassium measurement (moles/volume) 4.3 mmol/L 3.6-5.0 Serum or plasma chloride measurement (moles/volume) 105 mmol/L 98-107 Carbon dioxide 19 mmol/L 21-32 Serum or plasma anion gap determination (moles/volume) 11 mmol/L 5-14 Serum or plasma urea nitrogen measurement (mass/volume ) 20 mg/dL 7-18 Serum or plasma creatinine measurement (mass/volume) 1.99 mg/dL 0.60-1.30 Serum or plasma urea nitrogen/creatinine mass ratio 10 NRG Serum or plasma creatinine measurement w ith calculation of estimated glomerular filtration rate 24 NRG Serum or plasma glucose measurement (mass/volume) 46 mg/dL 70-105 Serum or plasma calcium measurement (mass/volume) 8.4 mg/dL 8.5-10.1 Capillary blood glucose measurement by g lucometer (mass/volume) - 07/26/19 06:42 Capillary blood glucose measurement by glucometer (mas s/volume) 61 mg/dL 70-110 Capillary blood glucose measurement by g lucometer (mass/volume) - 07/26/19 08:35 Capillary blood glucose measurement by glucometer (mas s/volume) 91 mg/dL 70-110 Capillary blood glucose measurement by g lucometer (mass/volume) - 07/26/19 11:51 Capillary blood glucose measurement by glucometer (mas s/volume) 91 mg/dL 70-110 Capillary blood glucose measurement by g lucometer (mass/volume) - 07/26/19 16:26 Capillary blood glucose measurement by glucometer (mas s/volume) 131 mg/dL 70-110 Capillary blood glucose measurement by g lucometer (mass/volume) - 07/26/19 21:37 Capillary blood glucose measurement by glucometer (mas s/volume) 269 mg/dL 70-110 Capillary blood glucose measurement by g lucometer (mass/volume) - 07/27/19 05:37 Capillary blood glucose measurement by glucometer (mas s/volume) 292 mg/dL 70-110 Capillary blood glucose measurement by g lucometer (mass/volume) - 07/27/19 11:09 Capillary blood glucose measurement by glucometer (mas s/volume) 239 mg/dL 70-110 Capillary blood glucose measurement by g lucometer (mass/volume) - 07/27/19 16:45 Capillary blood glucose measurement by glucometer (mas s/volume) 310 mg/dL 70-110 Capillary blood glucose measurement by g lucometer (mass/volume) - 07/27/19 20:37 Capillary blood glucose measurement by glucometer (mas s/volume) 151 mg/dL 70-110 Capillary blood glucose measurement by g lucometer (mass/volume) - 07/28/19 04:55 Capillary blood glucose measurement by glucometer (mas s/volume) 142 mg/dL 70-110 Complete blood count (CBC) with automate d white blood cell (WBC) differential - 07/28/19 05:51 Blood leukocytes automated count (number/volume) 6.0 10*3/uL 4.3-11.0 Blood erythrocytes automated count (number/volume) 4.68 10*6/uL 4.35-5.85 Venous blood hemoglobin measurement (mass/volume) 8.6 g/dL 11.5-16.0 Blood hematocrit (volume fraction) 30 % 35-52 Automated erythrocyte mean corpuscular volume 64 [ foz_us] 80-99 Automated erythrocyte mean corpuscular h emoglobin (mass per erythrocyte) 18 pg 25-34 Automated erythrocyte mean corpuscular h emoglobin concentration measurement (mass/volume) 29 g/dL 32-36 Automated erythrocyte distribution width ratio 22. 1 % 10.0- 14.5 Automated blood platelet count (count/volume) 195 10*3/uL 130-400 Automated blood platelet mean volume measurement 10.4 [foz_us] 7.4-10.4 Automated blood neutrophils/100 leukocytes 46 % 42-75 Automated blood lymphocytes/100 leukocytes 34 % 12-44 Blood monocytes/100 leukocytes 14 % 0-12 Automated blood eosinophils/100 leukocytes 5 % 0-10 Automated blood basophils/100 leukocytes 1 % 0-10 Blood neutrophils automated count (number/volume) 2.8 10*3 1.8-7.8 Blood lymphocytes automated count (number/volume) 2.1 10*3 1.0-4.0 Blood monocytes automated count (number/volume) 0. 8 10*3 0.0-1.0 Automated eosinophil count 0.3 10*3/uL 0 .0-0.3 Automated blood basophil count (count/volume) 0.1 10*3/uL 0.0-0.1 Whole blood basic metabolic panel - 04/08 05:51 Serum or plasma sodium measurement (moles/volume) 136 mmol/L 135-145 Serum or plasma potassium measurement (moles/volume) 4.2 mmol/L 3.6-5.0 Serum or plasma chloride measurement (moles/volume) 100 mmol/L 98-107 Carbon dioxide 21 mmol/L 21-32 Serum or plasma anion gap determination (moles/volume) 15 mmol/L 5-14 Serum or plasma urea nitrogen measurement (mass/volume ) 23 mg/dL 7-18 Serum or plasma creatinine measurement (mass/volume) 2.14 mg/dL 0.60-1.30 Serum or plasma urea nitrogen/creatinine mass ratio 11 NRG Serum or plasma creatinine measurement w ith calculation of estimated glomerular filtration rate 22 NRG Serum or plasma glucose measurement (mass/volume) 118 mg/dL 70-105 Serum or plasma calcium measurement (mass/volume) 8.9 mg/dL 8.5-10.1 Capillary blood glucose measurement by g lucometer (mass/volume) - 07/28/19 11:21 Capillary blood glucose measurement by glucometer (mas s/volume) 208 mg/dL 70-110 Capillary blood glucose measurement by g lucometer (mass/volume) - 07/28/19 16:39 Capillary blood glucose measurement by glucometer (mas s/volume) 236 mg/dL 70-110 Capillary blood glucose measurement by g lucometer (mass/volume) - 07/28/19 20:30 Capillary blood glucose measurement by glucometer (mas s/volume) 206 mg/dL 70-110 Capillary blood glucose measurement by g lucometer (mass/volume) - 07/29/19 05:02 Capillary blood glucose measurement by glucometer (mas s/volume) 88 mg/dL 70-110 Capillary blood glucose measurement by g lucometer (mass/volume) - 07/29/19 10:42 Capillary blood glucose measurement by glucometer (mas s/volume) 259 mg/dL 70-110 Capillary blood glucose measurement by g lucometer (mass/volume) - 07/29/19 15:58 Capillary blood glucose measurement by glucometer (mas s/volume) 260 mg/dL 70-110 Capillary blood glucose measurement by g lucometer (mass/volume) - 07/29/19 20:29 Capillary blood glucose measurement by glucometer (mas s/volume) 193 mg/dL 70-110 Complete blood count (CBC) with automate d white blood cell (WBC) differential - 07/30/19 05:20 Blood leukocytes automated count (number/volume) 6.6 10*3/uL 4.3-11.0 Blood erythrocytes automated count (number/volume) 4.42 10*6/uL 4.35-5.85 Venous blood hemoglobin measurement (mass/volume) 8.1 g/dL 11.5-16.0 Blood hematocrit (volume fraction) 28 % 35-52 Automated erythrocyte mean corpuscular volume 64 [ foz_us] 80-99 Automated erythrocyte mean corpuscular h emoglobin (mass per erythrocyte) 18 pg 25-34 Automated erythrocyte mean corpuscular h emoglobin concentration measurement (mass/volume) 29 g/dL 32-36 Automated erythrocyte distribution width ratio 22. 0 % 10.0- 14.5 Automated blood platelet count (count/volume) 221 10*3/uL 130-400 Automated blood platelet mean volume measurement 10.1 [foz_us] 7.4-10.4 Automated blood neutrophils/100 leukocytes 47 % 42-75 Automated blood lymphocytes/100 leukocytes 35 % 12-44 Blood monocytes/100 leukocytes 15 % 0-12 Automated blood eosinophils/100 leukocytes 2 % 0-10 Automated blood basophils/100 leukocytes 1 % 0-10 Blood neutrophils automated count (number/volume) 3.1 10*3 1.8-7.8 Blood lymphocytes automated count (number/volume) 2.3 10*3 1.0-4.0 Blood monocytes automated count (number/volume) 1. 0 10*3 0.0-1.0 Automated eosinophil count 0.2 10*3/uL 0 .0-0.3 Automated blood basophil count (count/volume) 0.0 10*3/uL 0.0-0.1 Whole blood basic metabolic panel - 07/20 08/08 05:20 Serum or plasma sodium measurement (moles/volume) 135 mmol/L 135-145 Serum or plasma potassium measurement (moles/volume) 4.2 mmol/L 3.6-5.0 Serum or plasma chloride measurement (moles/volume) 95 mmol/L 98-107 Carbon dioxide 26 mmol/L 21-32 Serum or plasma anion gap determination (moles/volume) 14 mmol/L 5-14 Serum or plasma urea nitrogen measurement (mass/volume ) 28 mg/dL 7-18 Serum or plasma creatinine measurement (mass/volume) 2.20 mg/dL 0.60-1.30 Serum or plasma urea nitrogen/creatinine mass ratio 13 NRG Serum or plasma creatinine measurement w ith calculation of estimated glomerular filtration rate 21 NRG Serum or plasma glucose measurement (mass/volume) 139 mg/dL 70-105 Serum or plasma calcium measurement (mass/volume) 8.9 mg/dL 8.5-10.1 Capillary blood glucose measurement by g lucometer (mass/volume) - 07/30/19 05:25 Capillary blood glucose measurement by glucometer (mas s/volume) 149 mg/dL 70-110 Capillary blood glucose measurement by g lucometer (mass/volume) - 07/30/19 10:57 Capillary blood glucose measurement by glucometer (mas s/volume) 251 mg/dL 70-110 Capillary blood glucose measurement by g lucometer (mass/volume) - 07/30/19 16:18 Capillary blood glucose measurement by glucometer (mas s/volume) 167 mg/dL 70-110 Capillary blood glucose measurement by g lucometer (mass/volume) - 07/30/19 20:46 Capillary blood glucose measurement by glucometer (mas s/volume) 165 mg/dL 70-110 Capillary blood glucose measurement by g lucometer (mass/volume) - 07/31/19 06:16 Capillary blood glucose measurement by glucometer (mas s/volume) 136 mg/dL 70-110 Capillary blood glucose measurement by g lucometer (mass/volume) - 07/31/19 11:58 Capillary blood glucose measurement by glucometer (mas s/volume) 219 mg/dL 70-110 Capillary blood glucose measurement by g lucometer (mass/volume) - 07/31/19 15:39 Capillary blood glucose measurement by glucometer (mas s/volume) 248 mg/dL 70-110 Capillary blood glucose measurement by g lucometer (mass/volume) - 07/31/19 20:04 Capillary blood glucose measurement by glucometer (mas s/volume) 217 mg/dL 70-110 Capillary blood glucose measurement by g lucometer (mass/volume) - 08/01/19 06:15 Capillary blood glucose measurement by glucometer (mas s/volume) 131 mg/dL 70-110 Automated blood complete blood count (he mogram) panel - 08/01/19 06:45 Blood leukocytes automated count (number/volume) 5.9 10*3/uL 4.3-11.0 Blood erythrocytes automated count (number/volume) 4.33 10*6/uL 4.35-5.85 Venous blood hemoglobin measurement (mass/volume) 7.8 g/dL 11.5-16.0 Blood hematocrit (volume fraction) 27 % 35-52 Automated erythrocyte mean corpuscular volume 63 [ foz_us] 80-99 Automated erythrocyte mean corpuscular h emoglobin (mass per erythrocyte) 18 pg 25-34 Automated erythrocyte mean corpuscular h emoglobin concentration measurement (mass/volume) 29 g/dL 32-36 Automated erythrocyte distribution width ratio 22. 0 % 10.0- 14.5 Automated blood platelet count (count/volume) 183 10*3/uL 130-400 Automated blood platelet mean volume measurement 9.7 [foz_us] 7.4-10.4 Comprehensive metabolic panel - 08/01/19 06:45 Serum or plasma sodium measurement (moles/volume) 133 mmol/L 135-145 Serum or plasma potassium measurement (moles/volume) 4.4 mmol/L 3.6-5.0 Serum or plasma chloride measurement (moles/volume) 94 mmol/L 98-107 Carbon dioxide 27 mmol/L 21-32 Serum or plasma anion gap determination (moles/volume) 12 mmol/L 5-14 Serum or plasma urea nitrogen measurement (mass/volume ) 30 mg/dL 7-18 Serum or plasma creatinine measurement (mass/volume) 2.40 mg/dL 0.60-1.30 Serum or plasma urea nitrogen/creatinine mass ratio 13 NRG Serum or plasma creatinine measurement w ith calculation of estimated glomerular filtration rate 19 NRG Serum or plasma glucose measurement (mass/volume) 116 mg/dL 70-105 Serum or plasma calcium measurement (mass/volume) 9.1 mg/dL 8.5-10.1 Serum or plasma total bilirubin measurement (mass/volu me) 0.7 mg/dL 0.1-1.0 Serum or plasma alkaline phosphatase ghanshyam surement (enzymatic activity/volume) 144 U/L 40-136 Serum or plasma aspartate aminotransfera se measurement (enzymatic activity/volume) 22 U/L 5-34 Serum or plasma alanine aminotransferase measurement (enzymatic activity/volume) 10 U/L 0-55 Serum or plasma protein measurement (mass/volume) 6.6 g/dL 6.4-8.2 Serum or plasma albumin measurement (mass/volume) 3.2 g/dL 3.2-4.5 CALCIUM CORRECTED 9.7 mg/dL 8.5-10.1 Capillary blood glucose measurement by g lucometer (mass/volume) - 08/01/19 11:43 Capillary blood glucose measurement by glucometer (mas s/volume) 213 mg/dL 70-110 Capillary blood glucose measurement by g lucometer (mass/volume) - 08/01/19 16:11 Capillary blood glucose measurement by glucometer (mas s/volume) 211 mg/dL 70-110 Capillary blood glucose measurement by g lucometer (mass/volume) - 08/01/19 20:23 Capillary blood glucose measurement by glucometer (mas s/volume) 225 mg/dL 70-110 Capillary blood glucose measurement by g lucometer (mass/volume) - 08/02/19 06:04 Capillary blood glucose measurement by glucometer (mas s/volume) 203 mg/dL 70-110 Capillary blood glucose measurement by g lucometer (mass/volume) - 08/02/19 11:03 Capillary blood glucose measurement by glucometer (mas s/volume) 247 mg/dL 70-110 Complete blood count (CBC) with automate d white blood cell (WBC) differential - 09/23/19 14:59 Blood leukocytes automated count (number/volume) 7.2 10*3/uL 4.3-11.0 Blood erythrocytes automated count (number/volume) 5.89 10*6/uL 4.35-5.85 Venous blood hemoglobin measurement (mass/volume) 13.8 g/dL 11.5-16.0 Blood hematocrit (volume fraction) 46 % 35-52 Automated erythrocyte mean corpuscular volume 77 [ foz_us] 80-99 Automated erythrocyte mean corpuscular h emoglobin (mass per erythrocyte) 23 pg 25-34 Automated erythrocyte mean corpuscular h emoglobin concentration measurement (mass/volume) 30 g/dL 32-36 Automated blood platelet count (count/volume) 208 10*3/uL 130-400 Automated blood platelet mean volume measurement 9.2 [foz_us] 7.4-10.4 Automated blood neutrophils/100 leukocytes 58 % 42-75 Automated blood lymphocytes/100 leukocytes 27 % 12-44 Blood monocytes/100 leukocytes 11 % 0-12 Automated blood eosinophils/100 leukocytes 4 % 0-10 Automated blood basophils/100 leukocytes 0 % 0-10 Blood neutrophils automated count (number/volume) 4.2 10*3 1.8-7.8 Blood lymphocytes automated count (number/volume) 2.0 10*3 1.0-4.0 Blood monocytes automated count (number/volume) 0. 8 10*3 0.0-1.0 Automated eosinophil count 0.3 10*3/uL 0 .0-0.3 Automated blood basophil count (count/volume) 0.0 10*3/uL 0.0-0.1 Comprehensive metabolic panel - 09/23/19 14:59 Serum or plasma sodium measurement (moles/volume) 136 mmol/L 135-145 Serum or plasma potassium measurement (moles/volume) 3.7 mmol/L 3.6-5.0 Serum or plasma chloride measurement (moles/volume) 96 mmol/L 98-107 Carbon dioxide 28 mmol/L 21-32 Serum or plasma anion gap determination (moles/volume) 12 mmol/L 5-14 Serum or plasma urea nitrogen measurement (mass/volume ) 21 mg/dL 7-18 Serum or plasma creatinine measurement (mass/volume) 1.86 mg/dL 0.60-1.30 Serum or plasma urea nitrogen/creatinine mass ratio 11 NRG Serum or plasma creatinine measurement w ith calculation of estimated glomerular filtration rate 26 NRG Serum or plasma glucose measurement (mass/volume) 183 mg/dL 70-105 Serum or plasma calcium measurement (mass/volume) 9.9 mg/dL 8.5-10.1 Serum or plasma total bilirubin measurement (mass/volu me) 0.9 mg/dL 0.1-1.0 Serum or plasma alkaline phosphatase ghanshyam surement (enzymatic activity/volume) 136 U/L 40-136 Serum or plasma aspartate aminotransfera se measurement (enzymatic activity/volume) 30 U/L 5-34 Serum or plasma alanine aminotransferase measurement (enzymatic activity/volume) 15 U/L 0-55 Serum or plasma protein measurement (mass/volume) 7.7 g/dL 6.4-8.2 Serum or plasma albumin measurement (mass/volume) 3.9 g/dL 3.2-4.5 CALCIUM CORRECTED 10.0 mg/dL 8.5-10.1 PT panel in platelet poor plasma by coag ulation assay - 09/23/19 14:59 Prothrombin time (PT) in platelet poor plasma by coagu lation assay 18.4 s 12.2-14.7 INR in platelet poor plasma or blood by coagulation as say 1.5 0.8-1.4 Activated partial thromboplastin time (a PTT) in platelet poor plasma bycoagulation assay - 09/23/19 14:59 Activated partial thromboplastin time (a PTT) in platelet poor plasma bycoagulation assay 40 s 24-35 Serum or plasma troponin i.cardiac measu rement (mass/volume) - 09/23/19 14:59 Serum or plasma troponin i.cardiac measurement (mass/v olume) 0.070 ng/mL <0.028 THYROID STIMULATING HORMONE - 09/23/19 1 4:59 THYROID STIMULATING HORMONE 2.04 u[iU]/mL 0.35-4.94 Blood lactic acid measurement (moles/vol ume) - 09/23/19 14:59 Blood lactic acid measurement (moles/volume) 2.74 mmol/L 0.50-2.00 Bacterial blood culture - 09/23/19 14:59 Bacterial blood culture [facility] Influenza virus A and B antigen detectio n - 09/23/19 15:14 FLU RESULT NEGATIVE FOR INFLUENZA A AND B ANTIGENS BY IA [facility] Bacterial blood culture - 09/23/19 15:15 Bacterial blood culture [facility] Complete urinalysis with reflex to cultu re - 09/23/19 16:27 Urine color determination YELLOW NRG Urine clarity determination SL CLOUDY N RG Urine pH measurement by test strip 5.5 5-9 Specific gravity of urine by test strip 1.020 1.016-1.022 Urine protein assay by test strip, semi-quantitative NEGATIVE NEGATIVE Urine glucose detection by automated test strip NE GATIVE NEGATIVE Erythrocytes detection in urine sediment by light micr oscopy TRACE-L NEGATIVE Urine ketones detection by automated test strip NE GATIVE NEGATIVE Urine nitrite detection by test strip POSITIVE NEGATIVE Urine total bilirubin detection by test strip NEGA TIVE NEGATIVE Urine urobilinogen measurement by automated test strip (mass/volume) 0.2 mg/dL < = 1.0 Urine leukocyte esterase detection by dipstick 2+ NEGATIVE Automated urine sediment erythrocyte cou nt by microscopy (number/high power field) NONE NRG Automated urine sediment leukocyte count by microscopy (number/high power field) [HPF] NRG Bacteria detection in urine sediment by light microsco py LARGE NRG Squamous epithelial cells detection in u rine sediment by light microscopy 2-5 NRG Crystals detection in urine sediment by light microsco py NONE NRG Casts detection in urine sediment by light microscopy NONE NRG Mucus detection in urine sediment by light microscopy NEGATIVE NRG Complete urinalysis with reflex to culture CULTURE PENDING NRG Bacterial urine culture - 09/23/19 16:27 Bacterial urine culture [id number] NRG COLONY COUNT >100,000/ML NRG FTX;REPORTABLE NO SUSCEPTIBILITY PERFORMED NRG FREE TEXT ENTRY 2 PRELIM RAPID ID BY [facility] 09-25-19, 1 138 NRG FREE TEXT ENTRY 3 ID CONFIRMED NRG Dirithromycin susceptibility test by dis k diffusion - 09/23/19 16:27 Gentamicin susceptibility test by minimum inhibitory c oncentration <= NRG Trimethoprim/sulfamethoxazole susceptibi lity test by minimum inhibitoryconcentration <= NRG Levofloxacin susceptibility test by minimum inhibitory concentration <= NRG Ampicillin susceptibility test by minimum inhibitory c oncentration > NRG Cefazolin susceptibility test by minimum inhibitory co ncentration 2 NRG Ceftriaxone susceptibility test by minimum inhibitory concentration <= NRG Ciprofloxacin susceptibility test by minimum inhibitor y concentration <= NRG Meropenem susceptibility test by minimum inhibitory co ncentration <= NRG Nitrofurantoin susceptibility test by mi nimum inhibitory concentration 32 NRG Amoxicillin and clavulanate potassium susc CHERRY = NRG Dirithromycin susceptibility test by dis k diffusion - 03/06/20 16:27 Gentamicin susceptibility test by minimum inhibitory c oncentration <= NRG Trimethoprim/sulfamethoxazole susceptibi lity test by minimum inhibitoryconcentration <= NRG Levofloxacin susceptibility test by minimum inhibitory concentration <= NRG Ampicillin susceptibility test by minimum inhibitory c oncentration > NRG Cefazolin susceptibility test by minimum inhibitory co ncentration 8 NRG Ceftriaxone susceptibility test by minimum inhibitory concentration <= NRG Ciprofloxacin susceptibility test by minimum inhibitor y concentration <= NRG Meropenem susceptibility test by minimum inhibitory co ncentration <= NRG Nitrofurantoin susceptibility test by mi nimum inhibitory concentration <= NRG Amoxicillin and clavulanate potassium susc CHERRY <= NRG Serum or plasma lactate measurement (mol es/volume) - 09/23/19 16:48 Serum or plasma lactate measurement (moles/volume) 1.99 mmol/L 0.50-2.00 Capillary blood glucose measurement by g lucometer (mass/volume) - 09/23/19 19:56 Capillary blood glucose measurement by glucometer (mas s/volume) 81 mg/dL 70-110 Complete blood count (CBC) with automate d white blood cell (WBC) differential - 09/24/19 05:28 Blood leukocytes automated count (number/volume) 6.4 10*3/uL 4.3-11.0 Blood erythrocytes automated count (number/volume) 4.94 10*6/uL 4.35-5.85 Venous blood hemoglobin measurement (mass/volume) 11.5 g/dL 11.5-16.0 Blood hematocrit (volume fraction) 38 % 35-52 Automated erythrocyte mean corpuscular volume 78 [ foz_us] 80-99 Automated erythrocyte mean corpuscular h emoglobin (mass per erythrocyte) 23 pg 25-34 Automated erythrocyte mean corpuscular h emoglobin concentration measurement (mass/volume) 30 g/dL 32-36 Automated erythrocyte distribution width ratio TNP 10.0- 14.5 Automated blood platelet count (count/volume) 173 10*3/uL 130-400 Automated blood platelet mean volume measurement 9.3 [foz_us] 7.4-10.4 Automated blood neutrophils/100 leukocytes 61 % 42-75 Automated blood lymphocytes/100 leukocytes 23 % 12-44 Blood monocytes/100 leukocytes 11 % 0-12 Automated blood eosinophils/100 leukocytes 4 % 0-10 Automated blood basophils/100 leukocytes 0 % 0-10 Blood neutrophils automated count (number/volume) 3.9 10*3 1.8-7.8 Blood lymphocytes automated count (number/volume) 1.5 10*3 1.0-4.0 Blood monocytes automated count (number/volume) 0. 7 10*3 0.0-1.0 Automated eosinophil count 0.3 10*3/uL 0 .0-0.3 Automated blood basophil count (count/volume) 0.0 10*3/uL 0.0-0.1 Capillary blood glucose measurement by g lucometer (mass/volume) - 09/24/19 05:38 Capillary blood glucose measurement by glucometer (mas s/volume) 196 mg/dL 70-110 Comprehensive metabolic panel - 09/24/19 05:38 Serum or plasma sodium measurement (moles/volume) 138 mmol/L 135-145 Serum or plasma potassium measurement (moles/volume) 3.7 mmol/L 3.6-5.0 Serum or plasma chloride measurement (moles/volume) 101 mmol/L 98-107 Carbon dioxide 26 mmol/L 21-32 Serum or plasma anion gap determination (moles/volume) 11 mmol/L 5-14 Serum or plasma urea nitrogen measurement (mass/volume ) 21 mg/dL 7-18 Serum or plasma creatinine measurement (mass/volume) 1.60 mg/dL 0.60-1.30 Serum or plasma urea nitrogen/creatinine mass ratio 13 NRG Serum or plasma creatinine measurement w ith calculation of estimated glomerular filtration rate 31 NRG Serum or plasma glucose measurement (mass/volume) 181 mg/dL 70-105 Serum or plasma calcium measurement (mass/volume) 8.7 mg/dL 8.5-10.1 Serum or plasma total bilirubin measurement (mass/volu me) 0.7 mg/dL 0.1-1.0 Serum or plasma alkaline phosphatase ghanshyam surement (enzymatic activity/volume) 108 U/L 40-136 Serum or plasma aspartate aminotransfera se measurement (enzymatic activity/volume) 22 U/L 5-34 Serum or plasma alanine aminotransferase measurement (enzymatic activity/volume) 11 U/L 0-55 Serum or plasma protein measurement (mass/volume) 5.6 g/dL 6.4-8.2 Serum or plasma albumin measurement (mass/volume) 2.9 g/dL 3.2-4.5 CALCIUM CORRECTED 9.6 mg/dL 8.5-10.1 Capillary blood glucose measurement by g lucometer (mass/volume) - 09/24/19 10:11 Capillary blood glucose measurement by glucometer (mas s/volume) 205 mg/dL 70-110 Capillary blood glucose measurement by g lucometer (mass/volume) - 09/24/19 14:58 Capillary blood glucose measurement by glucometer (mas s/volume) 115 mg/dL 70-110 Capillary blood glucose measurement by g lucometer (mass/volume) - 09/25/19 05:37 Capillary blood glucose measurement by glucometer (mas s/volume) 83 mg/dL 70-110 Complete blood count (CBC) with automate d white blood cell (WBC) differential - 09/26/19 04:40 Blood leukocytes automated count (number/volume) 8.3 10*3/uL 4.3-11.0 Blood erythrocytes automated count (number/volume) 4.98 10*6/uL 4.35-5.85 Venous blood hemoglobin measurement (mass/volume) 11.8 g/dL 11.5-16.0 Blood hematocrit (volume fraction) 39 % 35-52 Automated erythrocyte mean corpuscular volume 78 [ foz_us] 80-99 Automated erythrocyte mean corpuscular h emoglobin (mass per erythrocyte) 24 pg 25-34 Automated erythrocyte mean corpuscular h emoglobin concentration measurement (mass/volume) 30 g/dL 32-36 Automated erythrocyte distribution width ratio TNP 10.0- 14.5 Automated blood platelet count (count/volume) 159 10*3/uL 130-400 Automated blood platelet mean volume measurement 9.3 [foz_us] 7.4-10.4 Automated blood neutrophils/100 leukocytes 65 % 42-75 Automated blood lymphocytes/100 leukocytes 20 % 12-44 Blood monocytes/100 leukocytes 12 % 0-12 Automated blood eosinophils/100 leukocytes 3 % 0-10 Automated blood basophils/100 leukocytes 0 % 0-10 Blood neutrophils automated count (number/volume) 5.4 10*3 1.8-7.8 Blood lymphocytes automated count (number/volume) 1.7 10*3 1.0-4.0 Blood monocytes automated count (number/volume) 1. 0 10*3 0.0-1.0 Automated eosinophil count 0.2 10*3/uL 0 .0-0.3 Automated blood basophil count (count/volume) 0.0 10*3/uL 0.0-0.1 Whole blood basic metabolic panel - 04/08 04:40 Serum or plasma sodium measurement (moles/volume) 135 mmol/L 135-145 Serum or plasma potassium measurement (moles/volume) 3.9 mmol/L 3.6-5.0 Serum or plasma chloride measurement (moles/volume) 97 mmol/L 98-107 Carbon dioxide 27 mmol/L 21-32 Serum or plasma anion gap determination (moles/volume) 11 mmol/L 5-14 Serum or plasma urea nitrogen measurement (mass/volume ) 21 mg/dL 7-18 Serum or plasma creatinine measurement (mass/volume) 1.54 mg/dL 0.60-1.30 Serum or plasma urea nitrogen/creatinine mass ratio 14 NRG Serum or plasma creatinine measurement w ith calculation of estimated glomerular filtration rate 32 NRG Serum or plasma glucose measurement (mass/volume) 85 mg/dL 70-105 Serum or plasma calcium measurement (mass/volume) 8.6 mg/dL 8.5-10.1 Capillary blood glucose measurement by g lucometer (mass/volume) - 09/26/19 10:28 Capillary blood glucose measurement by glucometer (mas s/volume) 143 mg/dL 70-110 Capillary blood glucose measurement by g lucometer (mass/volume) - 09/26/19 19:10 Capillary blood glucose measurement by glucometer (mas s/volume) 102 mg/dL 70-110 Encounters ACCT No. Visit Date/Time Discharge Status Pt. Type Provider Facility Loc./Unit Complaint [id number] 07/29/2019 12:36:00 12:40:00 DIS Outpatient WIN ROJAS, CRIS Carr [facility] 4TH SWB:UTI [id number] 07/25/2019 13:00:00 12:13:00 DIS Inpatient KIMMY HANSON DO, [facility] 4TH ACUTE DIZZINESS,PROBABL E LABYRINTHITIS [id number] 07/21/2019 12:39:00 23:59:59 CLS Outpatient JOE ROBERTSON MD [facility] LAB SKIN LESSIONS [id number] 07/19/2019 12:40:00 23:59:59 CLS Outpatient LOGAN BOLIVAR APRN [facility] LAB ANEMIA [id number] 07/12/2019 10:56:00 23:59:59 CLS Outpatient JOE ROBERTSON MD [facility] LAB ANEMIA [id number] 07/06/2019 17:03:00 19:45:00 DIS Outpatient JARROD DAVIS [facility] SDC VOLUME DEPLETIO N [id number] 06/23/2019 15:18:00 23:59:59 CLS Outpatient JOE ROBERTSON MD [facility] RAD PNEUMONIA [id number] 06/03/2019 12:28:00 12:00:00 DIS Inpatient CRIS WALDEN MD [facility] 4TH SYNCOPAL EPISODE;PNA;SE PSIS [id number] 06/03/2019 10:00:00 23:59:59 CLS Outpatient ZOLTAN VERMA DO [facility] RAD ABD WALL SEROMA [id number] 06/03/2019 09:08:00 23:59:59 CLS Outpatient JOE ROBERTSON MD [facility] RAD F/U PNEUMONIA [id number] 05/28/2019 13:41:00 17:19:00 DIS Emergency MOIRA HEART MD [facility] ER POST OP DRAININ G IN GROIN [id number] 05/07/2019 14:37:00 15:35:00 DIS Inpatient CRIS WALDEN MD [facility] CSD ELEVATED TROPONIN,GENER AL WEAKNESS,UTI [id number] 05/02/2019 23:00:00 15:40:00 DIS Inpatient ANGEL MCDOWELL MD [facility] CSD HEART FAILURE;HYPOXIA [id number] 04/05/2019 17:24:00 19:30:00 DIS Inpatient CRIS WALDEN MD [facility] ICU AFIB, RVR, HYPOTENSION [id number] 03/17/2019 13:36:00 23:59:59 CLS Preadmit ANTHONY GARZA [facility] RAD SCREENING [id number] 03/17/2019 10:10:00 23:59:59 CLS Outpatient ANTHONY GARZA V [facility] ONC [id number] 03/11/2019 10:36:00 13:25:00 DIS Outpatient LOGAN BOLIVAR APRN [facility] SDC DEHYDRATION [id number] 03/02/2019 17:20:00 13:06:00 DIS Inpatient ANALIA WARD MD [facility] 4TH COLITIS,GASTROENTERITIS ,SHOCK AND SEPSIS,DEHYDRATI [id number] 02/23/2019 12:45:00 23:59:59 CLS Outpatient JOE ROBERTSON MD [facility] RAD COUGH [id number] 02/02/2019 16:50:00 12:40:00 DIS Inpatient ANALIA WARD MD [facility] 4TH DEHYDRATION,ELEVATED TR OPONIN,CKD STAGE IV [id number] 12/31/2018 07:24:00 10:50:00 DIS Outpatient AMADEO BARRETT MD [facility] ENDO DYSPHAGIA [id number] 12/28/2018 05:50:00 23:59:59 CLS Outpatient AMADEO BARRETT MD [facility] PREOP EGD [id number] 12/27/2018 14:17:00 23:59:59 CLS Outpatient DIMPLE NOVOA MD [facility] CARD CAROTID ARTERY STENOSIS,CAD,HYPERTENSION [id number] 12/03/2018 09:52:00 14:18:00 DIS Outpatient 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 [facility] REHAB GENERAL WEAKNES S [id number] 12/08/2018 15:19:00 019 23:59:59 CLS Outpatient JOE ROBERTSON MD [facility] LAB BURNING IN URINATION [id number] 06/16/2018 06:35:00 018 23:59:59 CLS Outpatient SOMMER ROJAS, DIMPLE Soliman [facility] CATH NON HEALING WOUND,PAD,C AD,HTN [id number] 06/14/2018 12:32:00 018 23:59:59 CLS Outpatient SKIP KERN APRN [facility] RAD CHRONIC KIDNEY DISEASE, STAGE 3 [id number] 04/28/2018 10:02:00 23:59:59 CLS Outpatient NAOMY KINGP [facility] RAD SCREENING [id number] 03/16/2018 16:45:00 018 23:59:59 CLS Preadmit NAOMY KING MULE OPERATOR [facility] RAD SCREENING MAMMOGRAM,XIMENA AST CANCER [id number] 03/16/2018 15:00:00 018 23:59:59 CLS Outpatient ANTHONY GARZA V [facility] ONC [id number] 02/03/2018 15:00:00 018 11:25:00 DIS Inpatient XIAO ROJAS, PRISCILLA Carr [facility] 4TH UTI HYPOTENSION [id number] 01/28/2018 12:48:00 018 23:59:59 CLS Outpatient JARROD DAVIS [facility] RAD LT KNEE PAIN,LT KNEE SWELLING [id number] 01/27/2018 13:15:00 23:59:59 CLS Preadmit VANGIE MOTT MD [facility] ENDO DYSPHAGIA [id number] 01/21/2018 05:39:00 23:59:59 CLS Outpatient VANGIE MOTT MD [facility] PREOP EGD [id number] 12/22/2017 21:23:00 06/06/2 018 13:30:00 DIS Inpatient JOE ROBERTSON MD [facility] 4TH NEW ONSET AFIB, ATYPICA L CP R/O ACS, HYPOXIA [id number] 09/23/2017 08:17:00 018 08:35:00 DIS Outpatient DIMPLE NOVOA MD [facility] CATH ABNORMAL BARRY,PVD,CAD [id number] 09/10/2017 13:53:00 018 23:59:59 CLS Outpatient DENIS WEAVER NP-C [facility] RAD N18.3 CHRONIC KIDNEY DI SEASE STAGE 3 [id number] 09/07/2017 14:05:00 018 23:59:59 CLS Preadmit DIMPLE NOVOA MD [facility] CARD I25.10 CAD [id number] 08/13/2017 09:15:00 018 23:59:59 CLS Preadmit ANTHONY GARZA [facility] RAD Z12.31 [id number] 08/09/2017 14:46:00 018 18:00:00 DIS Emergency DARYL PIEDRA APRN [facility] ER DIARRHEA/COLD/FLU SYMPT OMS [id number] 03/12/2017 09:52:00 017 23:59:59 CLS Outpatient ANTHONY GARZA V [facility] ONC [id number] 02/11/2017 07:44:00 017 23:59:59 CLS Outpatient JOE ROBERTSON MD [facility] RAD RT THYROID MASS [id number] 01/27/2017 10:41:00 017 23:59:59 CLS Outpatient JOE ROBERTSON MD [facility] CARD THYROID NODULE [id number] 01/26/2017 15:00:00 017 23:59:59 CLS Preadmit JOE ROBERTSON MD [facility] CARD THYROID NODULE [id number] 01/08/2017 11:10:00 017 23:59:59 CLS Outpatient JOE ROBERTSON MD [facility] CARD THYROID NODULE [id number] 12/26/2016 07:30:00 017 11:45:00 DIS Outpatient DIMPLE NOVOA MD [facility] CATH ABN STRESS TEST,CP, HTN ,HLP,DM [id number] 12/24/2016 10:48:00 017 23:59:59 CLS Outpatient PAULO DIXON [facility] CARD CAD I25.10 [id number] 12/17/2016 12:08:00 017 23:59:59 CLS Outpatient ANUP SULTANA [facility] RAD THYROID NODULE [id number] 08/12/2016 12:12:00 017 23:59:59 CLS Outpatient NAOMY KING [facility] RAD SCREENING [id number] 06/06/2016 12:58:00 016 23:59:59 CLS Outpatient DESTINEE SULTANA DO [facility] RAD THYROID NODULE [id number] 02/20/2016 12:58:00 016 23:59:59 CLS Outpatient NAOMY KING [facility] ONC [id number] 02/01/2016 08:32:00 016 23:59:59 CLS Outpatient DIMPLE NOVOA MD [facility] RAD CAROTID STENOSIS,DIZZIN ESS [id number] 01/04/2016 11:01:00 016 23:59:59 CLS Outpatient DIMPLE NOVOA MD [facility] RAD CAROTID STENOSIS [id number] 12/05/2015 14:52:00 016 17:54:00 DIS Inpatient JOE ROBERTSON MD [facility] 4TH JARA,VERTIGO,URINARY TRA CT INFECTION [id number] 11/22/2015 08:50:00 12:00:00 DIS Outpatient JOE ROBERTSON MD [facility] WOUNDCARE [id number] 11/14/2015 07:23:00 23:59:59 CLS Outpatient CIERA ROJAS, DESTINEE Soliman [facility] CARD CAD [id number] 10/23/2015 08:46:00 23:59:59 CLS Outpatient JOE ROBERTSON MD [facility] RAD DIABETIC FOOT ULCER [id number] 10/05/2015 10:00:00 09:44:00 DIS Inpatient JOE ROBERTSON MD [facility] 4TH NAUSEA,VOMITING,DIAHERR A,BLOODY STOOL [id number] 10/03/2015 10:31:00 23:59:59 CLS Outpatient JOE ROBERTSON MD [facility] RAD SOB [id number] 09/25/2015 12:38:00 23:59:59 CLS Outpatient NAFISA CHRIS MD [facility] RAD MULTI NODULUAR GOITER [id number] 07/16/2015 16:14:00 23:59:59 CLS Outpatient JOE ROBERTSON MD [facility] LAB CDIFF, DIARHHEA [id number] 06/27/2015 06:32:00 23:59:59 CLS Outpatient JOE ROBERTSON MD [facility] LAB DIARRHEA [id number] 05/28/2015 21:30:00 23:59:59 CLS Outpatient JOE ROBERTSON MD [facility] LAB DIARRHEA [id number] 05/10/2015 20:05:00 21:32:00 DIS Emergency DENIS HAIDER DO a [facility] ER L SIDE FACIAL DROOPING [id number] 05/10/2015 12:00:00 13:31:00 DIS Emergency ANGEL MCDOWELL MD [facility] ER FACIAL DROOPING/LEFT HUERTA ND NUMB [id number] 2015 13:56:00 23:59:59 CLS Outpatient ANUP SULTANA [facility] RAD DIFFICULTY SWAL LOWING THYROIDMEGALLY [id number] 02/19/2015 12:28:00 015 23:59:59 CLS Outpatient ANTHONY GARZA V [facility] ONC [id number] 12/25/2014 16:05:00 015 14:46:00 DIS Inpatient SOMMER ROJAS, DIMPLE Soliman [facility] CSD [id number] 08/31/2014 09:11:00 015 23:59:59 CLS Outpatient NAOMY KING MULE OPERATOR [facility] RAD [id number] 08/30/2014 13:10:00 23:59:59 CLS Outpatient JOE ROBERTSON MD [facility] LAB [id number] 08/21/2014 12:52:00 015 23:59:59 CLS Outpatient NAOMY KING MULE OPERATOR [facility] ONC [id number] 08/08/2014 12:54:00 015 23:59:59 CLS Outpatient ANTHONY GARZA V [facility] RAD [id number] 01/30/2014 13:02:00 014 23:59:59 CLS Outpatient [id number] 11/09/2013 13:56:00 014 23:59:59 CLS Outpatient NAOMY KING MULE OPERATOR [facility] ONC [id number] 10/15/2013 18:23:00 014 20:38:00 DIS Emergency [id number] 07/25/2013 12:48:00 014 23:59:59 CLS Outpatient NAOMY KING MULE OPERATOR [facility] RAD BREAST CA, ABN SONO [id number] 05/12/2013 14:47:00 23:59:59 CLS Outpatient [id number] 04/28/2013 15:16:00 23:59:59 CLS Outpatient [id number] 12/10/2012 10:57:00 00:01:00 DIS Outpatient [id number] 01/17/2013 12:08:00 23:59:59 CLS Outpatient [id number] 12/27/2012 12:00:00 23:59:59 CLS Outpatient [id number] 09/23/2019 17:06:[address] Inpatient WIN ROJAS, CRIS Carr [facility] 4TH UTI,WEAKNESS [id number] 09/26/2015 00:00:00 Document Registration [id number] 08/10/2015 13:28:00 Document Registration [id number] 12/25/2014 17:28:00 Document Registration
--- OUTSIDE RECORDS SUMMARY | 2019-09-27 18:21 | XMS REPORT | Encounter Summary ---
Author Author [facility] Address Unknown Phone Unavailable Care Team Providers Care Medical Support Assistant Name Role Phone PCP Unavailable Encounter Details Care Team Description Date Type Department Roman Mckeon MD [address] [address] [phone] 2003 [facility] Social [...]
--- OUTSIDE RECORDS SUMMARY | 2019-09-27 18:21 | XMS REPORT | Encounter Summary ---
Author Author [facility] Organization [facility] Address Unknown Phone Unavailable Care Team Providers Care Provider Relations Manager Name Role Phone PCP Unavailable Encounter Details Care Team Description Date Type Department Roman Mckeon MD [address] [facility] [address] [place] [address] [phone] 2003 [facility] al Encounter [address] [place] [address] Social History Date Tobacco Use Types Packs/Day [...] SUNQUEST eatinine Ratio Specimen Urine Performing Organization [facility] one Number [facility] [address] [address] 11 SUNQUEST * Aspartate Aminotransferase (2003 3:51 PM CDT) Aspartate 17 (L) 20 - 50 IU/L [facility] Aminotransferas e Specimen Blood Performing Organization [facility] one Number [facility] [address] [address] 11 SUNQUEST * Lipid Profile Sg (2003 3:51 PM CDT) Cholesterol 191 <200 MG/DL [facility] Triglycerides 228 (H) <150 MG/DL [facility] HDL Cholesterol 33 (L) >41 MG/DL [facility] Cholesterol/HDL 5.8 (H) <4.5 [facility] Ratio Hours 3 [facility] Postprandial LDL Cholesterol 112 (H) 0 - 99 MG/DL [facility]QUEST Specimen Performing Organization Address [facility] one Number [facility] [address] [phone] 11 SUNQUEST * Renal Panel (2003 3:51 [...] 10.5 MG/DL SUNQUEST Specimen Blood Performing Organization [facility] one Number [facility] [address] [address] 11 SUNQUEST * Creatine Kinase (2003 3:51 PM CDT) Creatine Kinase 70 30 - 225 IU/L [facility]QUEST Specimen Blood Performing Organization Address [facility] one Number [facility] [address] [address] 11 SUNQUEST * Alanine Aminotransferase (2003 3:51 PM CDT) Alanine 18 (L) 20 - 60 IU/L [facility] Aminotransferas e Specimen Blood Performing Organization Address [facility] one Number [facility] [address] [address] 11 SUNQUEST * Hemoglobin A1C (2003 3:51 PM CDT) HEMOGLOBIN A1C 6.7 f % [facility]QUEST Specimen Blood Narrative Performed At Report SUNQUEST Comments and Normal Ranges for Com ponent HGB A1C(%) NONDIABETIC- 4.4-6.0% VERY GOOD CONTROL- <7.0% SUBOPTIMAL CONTROL- 7.1-8.0% POOR CONTROL- >8.0% Performing Organization Address [facility] one Number [facility] [address] [address] 11 SUNQUEST * Thyroid Stimulating Hormone (2003 3:51 PM CDT) Thyroid 1.26 0.35 - 5.50 UIU/ML [facility] Stimulating Hormone Specimen Blood Performing Organization Address [facility] one Number [facility] [address] [address] SUNQUEST documented in this encounter Visit Diagnoses Not on filedocumented in this encounter
--- OUTSIDE RECORDS SUMMARY | 2019-09-27 18:21 | XMS REPORT | Clinical Summary ---
Author Author [facility] Organization [facility] Address Unknown Phone Unavailable Care Team Providers Care [place] [employer] Machine Operator Name Role Phone PCP Unavailable Allergies Not [...]
--- OUTSIDE RECORDS SUMMARY | 2019-09-27 18:30 | XMS REPORT | Continuity of Care Document ---
Author Organization Unknown Address Unknown Phone Unavailable Allergies Active Description Code Type Severity Reaction Onset Reported/Identified Relationship to Patient Clinical Status Yes sulfamethoxazole [id number] Drug Allergy Moderate N/A 10/05/2015 Yes tramadol [id number] Drug Allergy Moderate N/A 10/05/2015 Yes trimethoprim [id number] Drug Allergy Moderate N/A 10/05/2015 Yes codeine [id number] Drug Allergy Unknown CAN TAKE MORPHI 10/05/2015 Yes hydrocodone [id number] Drug Aller gy Unknown N/A 10/05/2015 Yes Penicillins [id number] Drug Aller gy Unknown N/A 10/05/2015 Yes amiodarone [id number] Drug Allerg y Unknown NAUSEA, dizzine 12/05/2015 Yes amiodarone [id number] Drug Allerg y Mild NAUSEA, dizzine 02/01/2016 Yes morphine [id number] Drug Allergy Moderate Nausea 06/03/2019 Medications There [...] NAOMY KINGP Ot 585.3 08/31/2014 NAOMY KING COMPUTER REPAIRER Ot V15.3 08/31/2014 NAOMY KINGP Ot V58.67 08/31/2014 KINGNAOMY Diaz S COMPUTER REPAIRER Ot V58.69 08/31/2014 ANTHONY GARZA N Ot 174.9 08/31/2014 ANTHONY GARZA N Ot V76.11 08/31/2014 KINGNAOMY Diaz S COMPUTER REPAIRER Ot 174.9 08/31/2014 KINGNAOMY S COMPUTER REPAIRER Ot 250.00 08/31/2014 KINGNAOMY S COMPUTER REPAIRER Ot 585.3 08/31/2014 KINGNAOMY S COMPUTER REPAIRER Ot V15.3 08/31/2014 KINGNAOMY S COMPUTER REPAIRER Ot V58.67 08/31/2014 KINGNAOMY S COMPUTER REPAIRER Ot V58.69 09/13/2014 KINGNAOMY S COMPUTER REPAIRER Ot 174.9 09/13/2014 KINGNAOMY S COMPUTER REPAIRER Ot 250.00 09/13/2014 KINGNAOMY S COMPUTER REPAIRER Ot 585.3 09/13/2014 KINGNAOMY Diaz S COMPUTER REPAIRER Ot V15.3 09/13/2014 KINGNAOMY Diaz S COMPUTER REPAIRER Ot V58.67 09/13/2014 KINGNAOMY Diaz S COMPUTER REPAIRER Ot V58.69 12/25/2014 ANTHONY GARZA N Ot 174.9 12/25/2014 ANTHONY GARZA N Ot V76.11 12/25/2014 KINGNAOMY Diaz S COMPUTER REPAIRER Ot 174.9 12/25/2014 KINGNAOMY Diaz S COMPUTER REPAIRER Ot 250.00 12/25/2014 KINGNAOMY S COMPUTER REPAIRER Ot 585.3 12/25/2014 KINGNAOMY S COMPUTER REPAIRER Ot V15.3 12/25/2014 KINGNAOMY S COMPUTER REPAIRER Ot V58.67 12/25/2014 KINGNAOMY S COMPUTER REPAIRER Ot V58.69 12/25/2014 KINGNAOMY S COMPUTER REPAIRER Ot 174.9 12/25/2014 KINGNAOMY S COMPUTER REPAIRER Ot V49.81 12/25/2014 KINGNAOMY S COMPUTER REPAIRER Ot V58.69 12/25/2014 MARCELO ROJAS, JOE Sherman [...] GREG, ANTHONY N Ot V15.3 03/27/2015 GREG, ANHTONY N Ot V49.81 03/27/2015 GREG, ANTHONY N Ot V58.67 03/27/2015 GREG, ANTHONY N Ot V58.69 2015 GREG, BOBAN N Ot 174.9 2015 GREG, ANTHONY N Ot V76.11 2015 NAOMY KING S COMPUTER REPAIRER Ot 174.9 2015 KINGNAOMY Diaz S COMPUTER REPAIRER Ot 250.00 2015 KINGNAOMY Diaz S COMPUTER REPAIRER Ot 585.3 2015 NAOMY KING S COMPUTER REPAIRER Ot V15.3 2015 NAOMY KING S COMPUTER REPAIRER Ot V58.67 2015 KINGNAOMY Diaz S COMPUTER REPAIRER Ot V58.69 2015 KINGNAOMY Diaz S COMPUTER REPAIRER Ot 174.9 2015 NAOMY KING S COMPUTER REPAIRER Ot V49.81 2015 NAOMY KING S COMPUTER REPAIRER Ot V58.69 2015 MARCELO ROJAS, JOE Sherman Ot 599.0 2015 GREGANTHONY SAMSON N Ot 174.9 2015 GREG, ANTHONY N Ot 250.00 2015 GREGANTHONY SAMSON N Ot 585.3 2015 GREGANTHONY SAMSON N Ot V15.3 2015 GREGANTHONY SAMSON N Ot V49.81 2015 GREGANTHONY SAMSON N Ot V58.67 2015 GREGANTHONY SAMSON N Ot V58.69 04/18/2015 SULTANA, ANUP L COMPUTER REPAIRER Ot 240.9 04/18/2015 RD ANUP L COMPUTER REPAIRER Ot 266.2 04/18/2015 SULTANA, ANUP L COMPUTER REPAIRER Ot 268.9 04/18/2015 SULTANA, ANUP L COMPUTER REPAIRER Ot 275.2 04/18/2015 SULTANA, ANUP L COMPUTER REPAIRER Ot 458.9 04/18/2015 SULTANA, ANUP L COMPUTER REPAIRER Ot 593.9 04/18/2015 SULTANA, ANUP L COMPUTER REPAIRER Ot 785.1 04/18/2015 SARAHY SULTANARICIA L COMPUTER REPAIRER Ot 787.20 05/10/2015 ANGEL MCDOWELL MD Ot E11.40 TYPE 2 DIABETES MELLITUS WITH DIABETIC N 05/10/2015 ANGEL MCDOWELL MD Ot G45 .9 TRANSIENT CEREBRAL ISCHEMIC ATTACK, UNSP 05/10/2015 ANGEL MCDOWELL MD Ot Z79.02 ALF (CURRENT) USE OF ANTITHROMBOTI 05/10/2015 ANGEL MCDOWELL MD Ot Z79 .4 ALF (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 05/10/2015 ANGEL MCDOWELL MD Ot Z79.899 OTHER ALF (CURRENT) DRUG THERAPY 05/10/2015 VITALY CANDELARIO DENIS K Ot E11.40 TYPE 2 DIABETES MELLITUS WITH DIABETIC N 05/10/2015 VITALY CANDELARIO DENIS K Ot G45.9 TRANSIENT CEREBRAL ISCHEMIC ATTACK, UNSP 05/10/2015 VITALY CANDELARIO DENIS K Ot Z79.02 ALF (CURRENT) USE OF ANTITHROMBOTI 05/10/2015 DENIS HAIDER DO Ot Z79.4 GENERATION TECHNOLOGIST (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 05/10/2015 DENIS HAIDER DO Ot Z79.82 ALF (CURRENT) USE OF ASPIRIN 05/29/2015 ANUP SULTANA L COMPUTER REPAIRER Ot 240.9 05/29/2015 SULTANA, ANUP L COMPUTER REPAIRER Ot 266.2 05/29/2015 SULTANA, ANUP L COMPUTER REPAIRER Ot 268.9 05/29/2015 SULTANA, ANUP L COMPUTER REPAIRER Ot 275.2 05/29/2015 SULTANA, ANUP L COMPUTER REPAIRER Ot 458.9 05/29/2015 SULTANA, ANUP L COMPUTER REPAIRER Ot 593.9 05/29/2015 SULTANA, ANUP L COMPUTER REPAIRER Ot 785.1 05/29/2015 SULTANA, ANUP L COMPUTER REPAIRER Ot 787.20 06/27/2015 MARCELO ROJAS, JOE Sherman Ot R19.7 08/09/2015 JOE ROBERTSON MD Ot A04.7 08/27/2015 JOE ROBERTSON MD Ot R19.7 08/31/2015 Ot Z12.31 09/25/2015 JOE ROBERTSON MD Ot R19.7 DIARRHEA, UNSPECIFIED 09/25/2015 Ot Z12.31 09/25/2015 SULTANA, ANUP L COMPUTER REPAIRER Ot 240.9 09/25/2015 SULTANA, ANUP L COMPUTER REPAIRER Ot 266.2 09/25/2015 SULTANA, ANUP L COMPUTER REPAIRER Ot 268.9 09/25/2015 SULTANA, ANUP L COMPUTER REPAIRER Ot 275.2 09/25/2015 SULTANA, ANUP L COMPUTER REPAIRER Ot 458.9 09/25/2015 SULTANA, ANUP L COMPUTER REPAIRER Ot 593.9 09/25/2015 SULTANA, ANUP L COMPUTER REPAIRER Ot 785.1 09/25/2015 RD ANUP L COMPUTER REPAIRER Ot 787.20 09/25/2015 JOE ROBERTSON MD Ot [...] Ot I25.1 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 10/06/2015 JOE ROBERTSON MD Ot K21.9 GASTRO-ESOPHAGEAL REFLUX DISEASE WITHOUT 10/06/2015 JOE ROBERTSON MD, Ot K64.9 UNSPECIFIED HEMORRHOIDS 10/06/2015 JOE ORBERTSON MD Ot K92.1 MELENA 10/06/2015 JOE ROBERTSON MD Ot R11.0 NAUSEA 10/06/2015 JOE ROBERTSON MD, Ot R19.7 DIARRHEA, UNSPECIFIED 10/06/2015 JOE ROBERTSON MD Ot S30.817A ABRASION OF ANUS, INITIAL ENCOUNTER 10/06/2015 JOE ROBERTSON MD Ot X58.XXXA EXPOSURE TO OTHER SPECIFIED FACTORS, INI 10/06/2015 JOE ROBERTSON MD Ot Z79.4 GENERATION TECHNOLOGIST (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 10/06/2015 JOE ROBERTSON [...] MD Ot Z95.5 10/15/2015 RD ANUP L COMPUTER REPAIRER Ot 240.9 10/15/2015 RD ANUP Salvatore COMPUTER REPAIRER Ot 266.2 10/15/2015 RD ANUP L COMPUTER REPAIRER Ot 268.9 10/15/2015 SARAHY SULTANARICIA Salvatore COMPUTER REPAIRER Ot 275.2 10/15/2015 RD ANUP Salvatore COMPUTER REPAIRER Ot 458.9 10/15/2015 KIERAN SULTANAIA Salvatore COMPUTER REPAIRER Ot 593.9 10/15/2015 ANUP SULTANA COMPUTER REPAIRER Ot 785.1 10/15/2015 ANUP SULTANA COMPUTER REPAIRER Ot 787.20 10/15/2015 MARCELO ROJAS, JOE Sherman [...] Soliman Ot I25.1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 11/21/2015 JOE ROBERTSON MD Ot 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 11/21/2015 JOE ROBERTSON MD Ot L97.5 21 NON-PRS CHRONIC ULCER OTH PRT L FOOT ZIMMERMAN 11/22/2015 OJE ROBERTSON MD Ot 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 11/22/2015 JOE ROBERTSON MD Ot L97.5 21 NON-PRS CHRONIC ULCER OTH PRT L FOOT ZIMMERMAN 11/27/2015 JOE ROBERTSON MD Ot L97.5 21 NON-PRS CHRONIC ULCER OTH PRT L FOOT ZIMMERMAN 12/05/2015 CIERA ROJAS, DESTINEE Soliman Ot I25.1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 12/05/2015 Ot V45.82 PER CUTANEOUS TRANSLUM CORON ANGIOPLASTY 12/05/2015 Ot V57.89 BEAN ABILITATION PROC NEC 12/05/2015 Ot R19.7 DIAR KRIS, UNSPECIFIED 12/06/2015 JOE ROBERTSON MD Ot E11.9 TYPE 2 DIABETES MELLITUS WITHOUT COMPLIC 12/06/2015 JOE ROBERTSON MD Ot E86.0 DEHYDRATION 12/06/2015 JOE ROBERTSON MD, Ot I25.1 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 12/06/2015 JOE ROBERTSON MD Ot I48.9 [...] Ot I25.1 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 12/06/2015 JOE ROBERTSON MD Ot I48.9 [...] Soliman Ot I25.1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 01/04/2016 DOT ROJAS, NAFISA Tong Ot [...] UNSP 02/18/2016 ANGEL MCDOWELL MD Ot Z79.02 GENERATION TECHNOLOGIST (CURRENT) USE OF ANTITHROMBOTI 02/18/2016 ANGEL MCDOWELL MD Ot Z79 .4 ALF (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 02/18/2016 ANGLE MCDOWELL MD Ot Z79.899 OTHER GENERATION TECHNOLOGIST (CURRENT) DRUG THERAPY 02/21/2016 NAOMY KING COMPUTER REPAIRER Ot Z 09 ENCNTR FOR F/U EXAM AFT TRTMT FOR COND O 02/21/2016 NAOMY KING COMPUTER REPAIRER Ot Z85.3 PERSONAL HISTORY OF MALIGNANT NEOPLASM O 03/07/2016 DIMPLE NOVOA MD Ot I65. 23 OCCLUSION AND STENOSIS OF BILATERAL PATTERSON 03/07/2016 DIMPLE NOVOA MD, Ot R42 DIZZINESS AND GIDDINESS 03/08/2016 ANGEL MCDOWELL MD Ot E11.40 TYPE 2 DIABETES MELLITUS WITH DIABETIC N 03/08/2016 ANGEL MCDOWELL MD Ot G45 .9 TRANSIENT CEREBRAL ISCHEMIC ATTACK, UNSP 03/08/2016 ANGEL MCDOWELL MD Ot Z79.02 GENERATION TECHNOLOGIST (CURRENT) USE OF ANTITHROMBOTI 03/08/2016 ANGEL MCDOWELL MD Ot Z79 .4 ALF (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 03/08/2016 ANGEL MCDOWELL MD Ot Z79.899 OTHER ALF (CURRENT) DRUG THERAPY 03/14/2016 NAOMY KING COMPUTER REPAIRER Ot Z 09 ENCNTR FOR F/U EXAM [...] OF MALIGNANT NEOPLASM O 06/06/2016 ANUP SULTANA COMPUTER REPAIRER Ot 240.9 GOITER NOS 06/06/2016 ANUP SULTANA COMPUTER REPAIRER Ot 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 06/06/2016 KIERAN SULTANAIA Salvatore COMPUTER REPAIRER Ot 268.9 VITAMIN D DEFICIENCY NOS 06/06/2016 KIERAN SULTANAIA Salvatore COMPUTER REPAIRER Ot 275.2 DIS MAGNESIUM METABOLISM 06/06/2016 SULTANA, ANUP Salvatore COMPUTER REPAIRER Ot 458.9 HYPOTENSION NOS 06/06/2016 KIERAN SULTANAIA L COMPUTER REPAIRER Ot 593.9 RENAL URETERAL DIS NOS 06/06/2016 RD ANUP Salvatore COMPUTER REPAIRER Ot 785.1 PALPITATIONS 06/06/2016 RD ANUP Salvatore COMPUTER REPAIRER Ot 787.20 DYSPHAGIA, UNSPECIFIED 06/06/2016 MARCELO ROJAS, JOE Sherman Ot R19.7 DIARRHEA, UNSPECIFIED 06/06/2016 MARCELO ROJAS, JOE Sherman Ot A04.7 ENTEROCOLITIS DUE TO CLOSTRIDIUM DIFFICI 06/06/2016 DOT ROJAS, NAFISA Tong Ot E04 .1 NONTOXIC SINGLE THYROID NODULE 06/06/2016 Ot R19.7 DIAR RKIS, UNSPECIFIED 06/06/2016 MARCELO ROJAS, JOE Sherman Ot [...] FOR COND O 06/06/2016 KING, HILAH S COMPUTER REPAIRER Ot Z85.3 PERSONAL HISTORY OF MALIGNANT NEOPLASM O 06/10/2016 DESTINEE SULTANA DO Ot E04.1 NONTOXIC SINGLE THYROID NODULE 06/11/2016 DESTINEE SULTANA DO Ot E04.1 NONTOXIC SINGLE THYROID NODULE 07/02/2016 DESTINEE SULTANA DO Ot E04.1 NONTOXIC SINGLE THYROID NODULE 07/15/2016 DESTINEE SULTANA DO Ot E04.1 NONTOXIC SINGLE THYROID NODULE 08/12/2016 ANUP SULTANA COMPUTER REPAIRER Ot 240.9 GOITER NOS 08/12/2016 ANUP SULTANA COMPUTER REPAIRER Ot 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 08/12/2016 ANUP SULTANA L COMPUTER REPAIRER Ot 268.9 VITAMIN D DEFICIENCY NOS 08/12/2016 ANUP SULTANA COMPUTER REPAIRER Ot 275.2 DIS MAGNESIUM METABOLISM 08/12/2016 ANUP SULTANA COMPUTER REPAIRER Ot 458.9 HYPOTENSION NOS 08/12/2016 ANUP SULTANA COMPUTER REPAIRER Ot 593.9 RENAL URETERAL DIS NOS 08/12/2016 ANUP SULTANA COMPUTER REPAIRER Ot 785.1 PALPITATIONS 08/12/2016 ANUP SULTANA COMPUTER REPAIRER Ot 787.20 DYSPHAGIA, UNSPECIFIED 08/12/2016 MARCELO ROJAS, [...] MAMMOGRAM FOR MALIGNANT NE 08/13/2016 ANUP SULTANA COMPUTER REPAIRER Ot 240.9 GOITER NOS 08/13/2016 ANUP SULTANA COMPUTER REPAIRER Ot 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 08/13/2016 ANUP SULTANA L COMPUTER REPAIRER Ot 268.9 VITAMIN D DEFICIENCY NOS 08/13/2016 KIERAN SULTANAIA L COMPUTER REPAIRER Ot 275.2 DIS MAGNESIUM METABOLISM 08/13/2016 ANUP SULTANA L COMPUTER REPAIRER Ot 458.9 HYPOTENSION NOS 08/13/2016 ANUP SULTANA COMPUTER REPAIRER Ot 593.9 RENAL URETERAL DIS NOS 08/13/2016 KIERAN SULTANAIA Salvatore COMPUTER REPAIRER Ot 785.1 PALPITATIONS 08/13/2016 ANUP SULTANA COMPUTER REPAIRER Ot 787.20 DYSPHAGIA, UNSPECIFIED 08/13/2016 MARCELO ROJAS, [...] MALIGNANT NEOPLASM O 08/13/2016 KING, HILAH S COMPUTER REPAIRER Ot Z12.31 ENCNTR SCREEN MAMMOGRAM FOR MALIGNANT NE 08/13/2016 DESTINEE SULTANA DO Ot E04.1 NONTOXIC SINGLE THYROID NODULE 08/13/2016 NAOMY KING COMPUTER REPAIRER Ot Z12.31 ENCNTR SCREEN MAMMOGRAM FOR MALIGNANT NE 08/13/2016 NAOMY KING S COMPUTER REPAIRER Ot Z12.31 ENCNTR SCREEN MAMMOGRAM FOR MALIGNANT NE 08/14/2016 Ot Z12.31 ENC NTR SCREEN MAMMOGRAM FOR MALIGNANT NE 08/14/2016 NAOMY KING S COMPUTER REPAIRER Ot Z12.31 ENCNTR SCREEN MAMMOGRAM FOR MALIGNANT NE 09/03/2016 NAOMY KING COMPUTER REPAIRER Ot Z12.31 ENCNTR SCREEN MAMMOGRAM FOR MALIGNANT [...] R42 DIZZINESS AND GIDDINESS 12/12/2016 NAOMY KING COMPUTER REPAIRER Ot Z 09 ENCNTR FOR F/U EXAM AFT TRTMT FOR COND O 12/12/2016 NAOMY KING COMPUTER REPAIRER Ot Z85.3 PERSONAL HISTORY OF MALIGNANT NEOPLASM O 12/12/2016 NAOMY KING COMPUTER REPAIRER Ot Z12.31 ENCNTR SCREEN MAMMOGRAM FOR MALIGNANT [...] MAMMOGRAM FOR MALIGNANT NE 12/18/2016 DOT ROJAS, NAIFSA Tong Ot E04 .1 NONTOXIC SINGLE THYROID NODULE 12/18/2016 Ot R19.7 DIAR KRIS, UNSPECIFIED 12/18/2016 MRACELO ROJAS, JOE Sherman Ot R06.0 2 SHORTNESS [...] NONTOXIC SINGLE THYROID NODULE 12/25/2016 ANUP SULTANA COMPUTER REPAIRER Ot E04.1 NONTOXIC SINGLE THYROID NODULE 12/25/2016 GRECIA DIXON Ot E11.9 TYPE 2 DIABETES MELLITUS WITHOUT COMPLIC 12/25/2016 GRECIA DIXON Ot I10 ESSENTIAL (PRIMARY) HYPERTENSION 12/25/2016 GRECAI DIXON Ot I25.1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 12/25/2016 GRECIA DIXON Ot I65.23 OCCLUSION AND STENOSIS OF BILATERAL [place] 12/27/2016 DIMPLE NOVOA MD Ot E11. 9 TYPE 2 DIABETES MELLITUS WITHOUT COMPLIC 12/27/2016 DIMPLE NOVOA MD Ot E78. 5 HYPERLIPIDEMIA, UNSPECIFIED 12/27/2016 DIMPLE NOVOA MD Ot I10 ESSENTIAL (PRIMARY) HYPERTENSION 12/27/2016 DIMPLE NOVOA MD Ot I25. 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 5 SICK SINUS SYNDROME 12/27/2016 DIMPLE NOVOA MD Ot R94. 39 ABNORMAL RESULT OF OTHER CARDIOVASCULAR 12/27/2016 DIMPLE NOVOA MD Ot T82.855A STENOSIS OF CORONARY ARTERY STENT, INITI 12/27/2016 DIMPLE NOVOA MD Ot Z79. 4 GENERATION TECHNOLOGIST (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 12/27/2016 DIMPLE NOVOA MD Ot Z79.899 OTHER GENERATION TECHNOLOGIST (CURRENT) DRUG THERAPY 12/27/2016 DIMPLE NOVOA MD Ot Z95. 0 PRESENCE OF CARDIAC PACEMAKER 01/06/2017 GRECIA DIXON Ot E11.9 TYPE 2 DIABETES MELLITUS WITHOUT COMPLIC 01/06/2017 GRECIA DIXON Ot I10 ESSENTIAL (PRIMARY) HYPERTENSION 01/06/2017 GRECIA DIXON Ot I25.1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 01/06/2017 GRECIA DIXON Ot I65.23 OCCLUSION AND STENOSIS OF BILATERAL [place] 01/06/2017 ANUP SULTANA COMPUTER REPAIRER Ot E04.1 NONTOXIC SINGLE THYROID NODULE 01/06/2017 NAOMY KING COMPUTER REPAIRER Ot 174.9 MALIGN NEOPL BREAST NOS 01/06/2017 ANUP SULTANA COMPUTER REPAIRER Ot E04.1 NONTOXIC SINGLE THYROID NODULE 01/07/2017 DIMPLE NOVOA MD, Ot E11. 9 TYPE 2 DIABETES MELLITUS WITHOUT COMPLIC 01/07/2017 DIMPLE NOVOA MD, Ot E78. 5 HYPERLIPIDEMIA, UNSPECIFIED 01/07/2017 DIMPLE NOVAO MD Ot I10 ESSENTIAL (PRIMARY) HYPERTENSION 01/07/2017 DIMPLE NOVOA MD, Ot I25. 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 5 SICK SINUS SYNDROME 01/07/2017 DIMPLE NOVOA MD, Ot R94. 39 ABNORMAL RESULT OF OTHER CARDIOVASCULAR 01/07/2017 DIMPLE NOVOA MD Ot T82.855A STENOSIS OF CORONARY ARTERY STENT, INITI 01/07/2017 DIMPLE NOVOA MD, Ot Z79. 4 ALF (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 01/07/2017 DIMPLE NOVOA MD, Ot Z79.899 OTHER GENERATION TECHNOLOGIST (CURRENT) DRUG THERAPY 01/07/2017 DIMPLE NOVOA MD Ot Z95. 0 PRESENCE OF CARDIAC PACEMAKER 01/13/2017 GRECIA DIXON Ot E11.9 TYPE 2 DIABETES MELLITUS WITHOUT COMPLIC 01/13/2017 GRECIA DIXON Ot I10 ESSENTIAL (PRIMARY) HYPERTENSION 01/13/2017 GRECIA DIXON Ot I25.1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 01/13/2017 GRECIA DIXON Ot I65.23 OCCLUSION AND STENOSIS OF BILATERAL [place] 01/14/2017 GRECIA DIXON Ot E11.9 TYPE 2 DIABETES MELLITUS WITHOUT COMPLIC 01/14/2017 GRECIA DIXON Ot I10 ESSENTIAL (PRIMARY) HYPERTENSION 01/14/2017 GRECIA DIXON Ot I25.1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 01/14/2017 GRECIA DIXON Ot I65.23 OCCLUSION AND STENOSIS OF BILATERAL [place] 01/17/2017 DIMPLE NOVOA MD Ot E11. 9 TYPE 2 DIABETES MELLITUS WITHOUT COMPLIC 01/17/2017 DIMPLE NOVOA MD Ot E78. 5 HYPERLIPIDEMIA, UNSPECIFIED 01/17/2017 DIMPLE NOVOA MD Ot I10 ESSENTIAL (PRIMARY) HYPERTENSION 01/17/2017 DIMPLE NOVOA MD Ot I25. 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 5 SICK SINUS SYNDROME 01/17/2017 DIMPLE NOVOA MD Ot R94. 39 ABNORMAL RESULT OF OTHER CARDIOVASCULAR 01/17/2017 DIMPLE NOVOA MD Ot T82.855A STENOSIS OF CORONARY ARTERY STENT, INITI 01/17/2017 DIMPLE NOVOA MD Ot Z79. 4 GENERATION TECHNOLOGIST (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 01/17/2017 DIMPLE NOVOA MD Ot Z79.899 OTHER ALF (CURRENT) DRUG THERAPY 01/17/2017 DIMPLE NOVOA MD [...] Ot I25. 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 5 SICK SINUS SYNDROME 01/28/2017 DIMPLE NOVOA MD Ot R94. 39 ABNORMAL RESULT OF OTHER CARDIOVASCULAR 01/28/2017 DIMPLE NOVOA MD Ot T82.855A STENOSIS OF CORONARY ARTERY STENT, INITI 01/28/2017 DIMPLE NOVOA MD, Ot Z79. 4 GENERATION TECHNOLOGIST (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 01/28/2017 DIMPLE NOVOA MD, Ot Z79.899 OTHER GENERATION TECHNOLOGIST (CURRENT) DRUG THERAPY 01/28/2017 DIMPLE NOVOA MD, Ot Z95. 0 PRESENCE OF CARDIAC PACEMAKER 01/29/2017 GRECIA DIXON Ot E11.9 TYPE 2 DIABETES MELLITUS WITHOUT COMPLIC 01/29/2017 GRECIA DIXON Ot I10 ESSENTIAL (PRIMARY) HYPERTENSION 01/29/2017 GRECIA DIXON Ot I25.1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 01/29/2017 GRECIA DIXON Ot I65.23 OCCLUSION AND STENOSIS OF BILATERAL [place] 03/13/2017 DIMPLE NOVOA MD Ot E11. 9 TYPE 2 DIABETES MELLITUS WITHOUT COMPLIC 03/13/2017 DIMPLE NOVOA MD, Ot E78. 5 HYPERLIPIDEMIA, UNSPECIFIED 03/13/2017 DIMPLE NOVOA MD Ot I10 ESSENTIAL (PRIMARY) HYPERTENSION 03/13/2017 DIMPLE NOVOA MD, Ot I25. 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 5 SICK SINUS SYNDROME 03/13/2017 DIMPLE NOVOA MD, Ot R94. 39 ABNORMAL RESULT OF OTHER CARDIOVASCULAR 03/13/2017 DIMPLE NOVOA MD, Ot T82.855A STENOSIS OF CORONARY ARTERY STENT, INITI 03/13/2017 DIMPLE NOVOA MD, Ot Z79. 4 GENERATION TECHNOLOGIST (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 03/13/2017 DIMPLE NOVOA MD, Ot Z79.899 OTHER ALF (CURRENT) DRUG THERAPY 03/13/2017 DIMPLE NOVOA MD, Ot Z95. 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 CAR CHECKER 03/13/2017 ANTHONY GARZA Ot E11.43 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 03/13/2017 GREG ANTHONY Bender Ot E78.5 HYPERLIPIDEMIA, UNSPECIFIED 03/13/2017 GREG ANTHONY Bneder Ot 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 KDNY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 03/13/2017 ANTHONY GARZA Ot I25.1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 03/13/2017 GREGANTHONY Ot I50.9 HEART FAILURE, UNSPECIFIED 03/13/2017 GREGANTHONY Ot K21.9 GASTRO-ESOPHAGEAL REFLUX DISEASE WITHOUT 03/13/2017 GREGANTHONY SAMSON Ot N18.3 CHRONIC KIDNEY DISEASE, STAGE 3 (MODERAT 03/13/2017 GREGANTHONY Ot Z08 ENCNTR FOR FOLLOW-UP EXAM AFTER TRTMT FO 03/13/2017 ANTHONY GARZA Ot Z79.02 ALF (CURRENT) USE OF ANTITHROMBOTI 03/13/2017 ANTHONY GARZA Ot Z79.4 GENERATION TECHNOLOGIST (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 03/13/2017 ANTHONY GARZA Ot Z79.899 OTHER GENERATION TECHNOLOGIST (CURRENT) DRUG THERAPY 03/13/2017 GREGANTHONY Ot Z85.3 [...] Ot I25. 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 5 SICK SINUS SYNDROME 03/14/2017 DIMPLE NOVOA MD Ot R94. 39 ABNORMAL RESULT OF OTHER CARDIOVASCULAR 03/14/2017 DIMPLE NOVOA MD, Ot T82.855A STENOSIS OF CORONARY ARTERY STENT, INITI 03/14/2017 DIMPLE NOVOA MD Ot Z79. 4 ALF (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 03/14/2017 DIMPLE NOVOA MD, Ot Z79.899 OTHER GENERATION TECHNOLOGIST (CURRENT) DRUG THERAPY 03/14/2017 DIMPLE NOVOA MD Ot Z95. 0 PRESENCE OF CARDIAC PACEMAKER 03/16/2017 MARCELO ROJAS, OJE Sherman Ot E04.1 NONTOXIC SINGLE THYROID NODULE 04/03/2017 ANTHONY GARZA Ot E04.1 NONTOXIC SINGLE THYROID NODULE 04/03/2017 ANTHONY GARZA Ot E11.22 TYPE 2 DIABETES 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 MECHANICAL CAR CHECKER 04/03/2017 ANTHONY GARZA N Ot E11.43 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 04/03/2017 ANTHONY GARZA N Ot E78.5 HYPERLIPIDEMIA, UNSPECIFIED 04/03/2017 ANTHONY GARZA Ot 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 [place]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 04/03/2017 ANTHONY GARZA Ot I25.1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 04/03/2017 ANTHONY GARZA Ot I50.9 HEART FAILURE, UNSPECIFIED 04/03/2017 ANTHONY GARZA Ot K21.9 GASTRO-ESOPHAGEAL REFLUX DISEASE WITHOUT 04/03/2017 ANTHONY GARZA Ot N18.3 CHRONIC KIDNEY DISEASE, STAGE 3 (MODERAT 04/03/2017 ANTHONY GARZA Ot Z08 ENCNTR FOR FOLLOW-UP EXAM AFTER TRTMT FO 04/03/2017 ANTHONY GARZA Ot Z79.02 ALF (CURRENT) USE OF ANTITHROMBOTI 04/03/2017 ANTHONY GARZA Ot Z79.4 ALF (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 04/03/2017 ANTHONY GARZA Ot Z79.899 OTHER GENERATION TECHNOLOGIST (CURRENT) DRUG THERAPY 04/03/2017 ANTHONY GARZA Ot Z85.3 PERSONAL HISTORY OF MALIGNANT NEOPLASM O 04/03/2017 ANTHONY GARZA Ot Z95.5 PRESENCE OF CORONARY ANGIOPLASTY IMPLANT 04/03/2017 MARCELO ROJAS, JOE Sherman Ot E04.1 NONTOXIC SINGLE THYROID NODULE 04/23/2017 ANTHONY GARZA Ot E04.1 NONTOXIC SINGLE THYROID NODULE 04/23/2017 ANTHONY GARZA Ot E11.22 TYPE 2 DIABETES 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 MECHANICAL CAR CHECKER 04/23/2017 ANTHONY GARZA N Ot E11.43 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 04/23/2017 ANTHONY GARZA N Ot E78.5 HYPERLIPIDEMIA, UNSPECIFIED 04/23/2017 GREG ALYCEBJORN Yulia Ot 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 [place]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 04/23/2017 GREGANTHONY Ot I25.1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 04/23/2017 GREG ANTHONY Bender Ot I50.9 HEART FAILURE, UNSPECIFIED 04/23/2017 GREG ANTHONY Bender Ot K21.9 GASTRO-ESOPHAGEAL REFLUX DISEASE WITHOUT 04/23/2017 GREG ANTHONY Bender Ot N18.3 CHRONIC KIDNEY DISEASE, STAGE 3 (MODERAT 04/23/2017 GREG ANTHONY Bender Ot Z08 ENCNTR FOR FOLLOW-UP EXAM AFTER TRTMT FO 04/23/2017 GREGANTHONY Ot Z79.02 ALF (CURRENT) USE OF ANTITHROMBOTI 04/23/2017 ANTHONY GARZA Ot Z79.4 GENERATION TECHNOLOGIST (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 04/23/2017 ANTHONY GARZA Ot Z79.899 OTHER ALF (CURRENT) DRUG THERAPY 04/23/2017 GREGANTHONY Ot Z85.3 [...] E11.22 TYPE 2 DIABETES 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 MECHANICAL CAR CHECKER 08/06/2017 GREGANTHONY Ot E11.43 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 08/06/2017 GREGANTHONY Ot E78.5 HYPERLIPIDEMIA, UNSPECIFIED 08/06/2017 GREGANTHONY Ot 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 [place]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 08/06/2017 GREGANTHONY Ot I25.1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 08/06/2017 GREGANTHONY Ot I50.9 HEART FAILURE, UNSPECIFIED 08/06/2017 GREGANTHONY Ot K21.9 GASTRO-ESOPHAGEAL REFLUX DISEASE WITHOUT 08/06/2017 GREGANTHONY SAMSON Ot N18.3 CHRONIC KIDNEY DISEASE, STAGE 3 (MODERAT 08/06/2017 ANTHONY GARZA Ot Z08 ENCNTR FOR FOLLOW-UP EXAM AFTER TRTMT FO 08/06/2017 ANTHONY GARZA Ot Z79.02 ALF (CURRENT) USE OF ANTITHROMBOTI 08/06/2017 ANTHONY GARZA Yulia Ot Z79.4 ALF (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 08/06/2017 ANTHONY GARZA Yulia Ot Z79.899 OTHER GENERATION TECHNOLOGIST (CURRENT) DRUG THERAPY 08/06/2017 ANTHONY GARZA Yulia [...] E78.00 PURE HYPERCHOLESTEROLEMIA, UNSPECIFIED 08/09/2017 DARYL PIEDRA APPRENTICE FUNERAL DIRECTOR Ot I11 .0 HYPERTENSIVE HEART DISEASE WITH HEART FA 08/09/2017 DARYL PIEDRA APRN Ot I25.1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 08/09/2017 DARYL PIEDRA APRN Ot I25 .2 OLD MYOCARDIAL INFARCTION 08/09/2017 DARYL PIEDRA APPRENTICE FUNERAL DIRECTOR Ot I50 .9 HEART FAILURE, UNSPECIFIED 08/09/2017 DARYL PIEDRA APRN Ot J10 .1 FLU DUE TO OTH IDENT INFLUENZA VIRUS W O 08/09/2017 DARYL PIEDRA APRN Ot K21 .9 GASTRO-ESOPHAGEAL REFLUX DISEASE WITHOUT 08/09/2017 DARYL PIEDRA APRN Ot R19 .7 DIARRHEA, UNSPECIFIED 08/09/2017 DARYL PIEDRA APRN Ot Z79 .4 ALF (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 08/09/2017 DARYL PIEDRA [...] APRN Ot I25.1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 08/11/2017 DAYRL PIEDRA APRN Ot I25 .2 OLD MYOCARDIAL INFARCTION 08/11/2017 DARYL PIEDRA APRN Ot I50 .9 HEART FAILURE, UNSPECIFIED 08/11/2017 DARYL PIEDRA APRN Ot J10 .1 FLU DUE TO [facility] IDENT INFLUENZA VIRUS W O 08/11/2017 DARYL PIEDRA APRN Ot K21 .9 GASTRO-ESOPHAGEAL REFLUX DISEASE WITHOUT 08/11/2017 DARYL PIEDRA APRN Ot R19 .7 DIARRHEA, UNSPECIFIED 08/11/2017 DARYL PIEDRA APRN Ot Z79 .4 ALF (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 08/11/2017 DARYL PIEDRA APRN Ot Z82.49 FAMILY HX OF ISCHEM HEART DIS AND OTH DI 08/11/2017 DARYL PIEDRA APRN Ot Z85 .3 PERSONAL HISTORY OF MALIGNANT NEOPLASM O 08/11/2017 DARYL PIEDRA APRN Ot Z86.73 PRSNL HX OF TIA (TIA), AND CEREB INFRC W 08/11/2017 DARYL PIEDRA APRN Ot Z90.710 ACQUIRED ABSENCE OF BOTH CERVIX AND UTER 08/11/2017 DARYL PIEDRA APPRENTICE FUNERAL DIRECTOR Ot Z95 .0 PRESENCE OF CARDIAC PACEMAKER 08/11/2017 DARYL PIEDRA APPRENTICE FUNERAL DIRECTOR Ot Z95 .5 PRESENCE OF CORONARY ANGIOPLASTY IMPLANT 09/11/2017 DENIS WEAVER ATMOSPHERIC DRIER TENDER-C Ot E11.9 TYPE 2 DIABETES MELLITUS WITHOUT COMPLIC 09/11/2017 DENIS WEAVER ATMOSPHERIC DRIER TENDER-C Ot E55.9 VITAMIN D DEFICIENCY, UNSPECIFIED 09/11/2017 DENIS WEAVER ATMOSPHERIC DRIER TENDER-C Ot E78.5 HYPERLIPIDEMIA, UNSPECIFIED 09/11/2017 DENIS WEAVER ATMOSPHERIC DRIER TENDER-C Ot E87.2 ACIDOSIS 09/11/2017 DENIS WEAVER ATMOSPHERIC DRIER TENDER-C Ot I12.9 HYPERTENSIVE CHRONIC KIDNEY DISEASE W ST 09/11/2017 DENIS WEAVER [employer] ATMOSPHERIC DRIER TENDER-C Ot I25.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 40 TYPE 2 DIABETES MELLITUS WITH DIABETIC N 09/24/2017 DIMPLE NOVOA MD Ot E11.621 TYPE 2 DIABETES MELLITUS WITH FOOT ULCER 09/24/2017 DIMPLE NOVOA MD Ot E78. 5 HYPERLIPIDEMIA, UNSPECIFIED 09/24/2017 DIMPLE NOVOA MD Ot I25. 1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 09/24/2017 DIMPLE NOVOA MD Ot I48. 0 PAROXYSMAL ATRIAL FIBRILLATION 09/24/2017 DIMPLE NOVOA MD Ot I49. 5 SICK SINUS SYNDROME 09/24/2017 DIMPLE NOVOA MD Ot I65. 29 OCCLUSION AND STENOSIS OF UNSPECIFIED CA 09/24/2017 DIMPLE NVOOA MD Ot I73. 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 3 CHRONIC KIDNEY DISEASE, STAGE 3 (MODERAT 09/24/2017 DIMPLE NOVOA MD Ot R07. 9 CHEST PAIN, UNSPECIFIED 09/24/2017 DIMPLE NOVOA MD Ot Z79. 4 GENERATION TECHNOLOGIST (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 09/24/2017 DIMPLE NOVOA [...] Ot I25. 1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 09/28/2017 DIMPLE NOVOA MD Ot I48. [...] 09/28/2017 DIMPLE NOVOA MD Ot Z79. 4 ALF (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 09/28/2017 DIMPLE NOVOA [...] OTH DRUG/MEDS/BIOL SUB 10/06/2017 MEG DENIS [employer] ATMOSPHERIC DRIER TENDER-C Ot E11.9 TYPE 2 DIABETES MELLITUS WITHOUT COMPLIC 10/06/2017 DENIS WEAVER [employer] ATMOSPHERIC DRIER TENDER-C Ot E55.9 VITAMIN D DEFICIENCY, UNSPECIFIED 10/06/2017 DENIS WEAVER [employer] ATMOSPHERIC DRIER TENDER-C Ot E78.5 HYPERLIPIDEMIA, UNSPECIFIED 10/06/2017 DENIS WEAVER [employer] ATMOSPHERIC DRIER TENDER-C Ot E87.2 ACIDOSIS 10/06/2017 DENIS WEAVER [employer] ATMOSPHERIC DRIER TENDER-C Ot I12.9 HYPERTENSIVE CHRONIC KIDNEY DISEASE W ST 10/06/2017 DENIS WEAVER [employer] ATMOSPHERIC DRIER TENDER-C Ot I25.1 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 10/06/2017 MEG DENIS [employer] ATMOSPHERIC DRIER TENDER-C Ot K21.9 GASTRO-ESOPHAGEAL REFLUX DISEASE WITHOUT 10/06/2017 DENIS WEAVER [employer] ATMOSPHERIC DRIER TENDER-C Ot N18.3 CHRONIC KIDNEY DISEASE, STAGE 3 (MODERAT 10/28/2017 DIMPLE NOVOA MD Ot E11. 40 TYPE 2 DIABETES MELLITUS WITH DIABETIC N 10/28/2017 DIMPLE NOVOA MD Ot E11.621 TYPE 2 DIABETES MELLITUS WITH FOOT ULCER 10/28/2017 DIMPLE NOVOA MD Ot E78. 5 HYPERLIPIDEMIA, UNSPECIFIED 10/28/2017 DIMPLE NOVOA MD Ot I25. 1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 10/28/2017 DIMPLE NOVOA MD Ot I48. [...] 10/28/2017 DIMPLE NOVOA MD Ot Z79. 4 ALF (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 10/28/2017 DIMPLE NOVOA [...] TO OTH DRUG/MEDS/BIOL SUB 12/22/2017 DENIS WEAVER ATMOSPHERIC DRIER TENDER-C Ot E11.9 TYPE 2 DIABETES MELLITUS WITHOUT COMPLIC 12/22/2017 DENIS WEAVER ATMOSPHERIC DRIER TENDER-C Ot E55.9 VITAMIN D DEFICIENCY, UNSPECIFIED 12/22/2017 JAYJAY WEAEVRA [employer]Kit ATMOSPHERIC DRIER TENDER-C Ot E78.5 HYPERLIPIDEMIA, UNSPECIFIED 12/22/2017 DENIS WEAVER ATMOSPHERIC DRIER TENDER-C Ot E87.2 ACIDOSIS 12/22/2017 DENIS WEAVER ATMOSPHERIC DRIER TENDER-C Ot I12.9 HYPERTENSIVE CHRONIC KIDNEY DISEASE W ST 12/22/2017 DENIS WEAVER ATMOSPHERIC DRIER TENDER-C Ot I25.1 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 12/22/2017 DENIS WEAVER [employer] ATMOSPHERIC DRIER TENDER-C Ot K21.9 GASTRO-ESOPHAGEAL REFLUX DISEASE WITHOUT 12/22/2017 DENIS WEAVER [employer] ATMOSPHERIC DRIER TENDER-C Ot N18.3 CHRONIC KIDNEY DISEASE, STAGE 3 (MODERAT 12/23/2017 JOE ROBERTSON MD Ot E11.5 1 TYPE 2 DIABETES W DIABETIC PERIPHERAL AN 12/23/2017 JOE ROBERTSON MD Ot E78.5 HYPERLIPIDEMIA, UNSPECIFIED 12/23/2017 JOE ROBERTSON MD Ot E87.6 HYPOKALEMIA 12/23/2017 JOE ROBERTSON MD Ot I12.9 HYPERTENSIVE CHRONIC KIDNEY DISEASE W ST 12/23/2017 JOE ROBERTSON MD Ot I25.1 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 12/23/2017 JOE ROBERTSON MD Ot I25.2 [...] 12/23/2017 JOE ROBERTSON MD Ot Z79.0 1 ALF (CURRENT) USE OF ANTICOAGULANT 12/23/2017 JOE ROBERTSON [...] Ot I25.1 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 12/23/2017 JOE ROBERTSON MD Ot I25.2 [...] 12/23/2017 JOE ROBERTSON MD Ot Z79.0 1 GENERATION TECHNOLOGIST (CURRENT) USE OF ANTICOAGULANT 12/23/2017 JOE ROBERTSON [...] MD Ot I25.1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 02/05/2018 PRISCILLA HAGEN MD Ot N18.3 CHRONIC KIDNEY DISEASE, STAGE 3 (MODERAT 02/05/2018 PRISCILLA HAGEN MD Ot N39.0 URINARY TRACT INFECTION, SITE NOT SPECIF 02/05/2018 PRISCILLA HAGEN MD Ot R42 DIZZINESS AND GIDDINESS 02/05/2018 PRISCILLA HAGEN MD Ot Z79.4 GENERATION TECHNOLOGIST (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 02/05/2018 PRISCILLA HAGEN [...] MD Ot I25.1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 02/05/2018 PRISCILLA HAGEN MD, Ot N18.3 CHRONIC KIDNEY DISEASE, STAGE 3 (MODERAT 02/05/2018 PRISCILLA HAGEN MD Ot N39.0 URINARY TRACT INFECTION, SITE NOT SPECIF 02/05/2018 PRISCILLA HAGEN MD Ot R42 DIZZINESS AND GIDDINESS 02/05/2018 PRISCILLA HAGEN MD, Ot Z79.4 ALF (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 02/05/2018 PRISCILLA HAGEN MD Ot Z95.0 PRESENCE OF CARDIAC PACEMAKER 03/11/2018 JOSÉ LUIS OBRIEN, JARROD Chase Ot M17.12 UNILATERAL PRIMARY OSTEOARTHRITIS, LEFT 03/16/2018 MARCELO ROJAS, JOE Sherman Ot E04.1 NONTOXIC SINGLE THYROID NODULE 03/16/2018 ANTHONY GARZA Ot E04.1 NONTOXIC SINGLE THYROID NODULE 03/16/2018 ANTHONY GARZA Ot E11.22 TYPE 2 DIABETES 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 MECHANICAL CAR CHECKER 03/16/2018 ANTHONY GARZA Ot E11.43 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 03/16/2018 ANTHONY GARZA Ot E78.5 HYPERLIPIDEMIA, UNSPECIFIED 03/16/2018 ANTHONY GARZA Ot 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 [place]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 03/16/2018 ANTHONY GARZA Ot I25.1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 03/16/2018 ANTHONY GARZA Ot I50.9 HEART FAILURE, UNSPECIFIED 03/16/2018 ANTHONY GARZA Ot K21.9 GASTRO-ESOPHAGEAL REFLUX DISEASE WITHOUT 03/16/2018 ANTHONY GARAZ Ot N18.3 CHRONIC KIDNEY DISEASE, STAGE 3 (MODERAT 03/16/2018 ANTHONY GARZA Ot Z08 ENCNTR FOR FOLLOW-UP EXAM AFTER TRTMT FO 03/16/2018 ANTHONY GARZA Ot Z79.02 GENERATION TECHNOLOGIST (CURRENT) USE OF ANTITHROMBOTI 03/16/2018 NATHONY GARZA Ot Z79.4 ALF (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 03/16/2018 ANTHONY GARZA Ot Z79.899 OTHER GENERATION TECHNOLOGIST (CURRENT) DRUG THERAPY 03/16/2018 ANTHONY GARZA Ot Z85.3 PERSONAL HISTORY OF MALIGNANT NEOPLASM O 03/16/2018 ANTHONY GARZA Ot Z95.5 PRESENCE OF CORONARY ANGIOPLASTY IMPLANT 03/16/2018 MEG DENIS G. ATMOSPHERIC DRIER TENDER-C Ot E11.9 TYPE 2 DIABETES MELLITUS WITHOUT COMPLIC 03/16/2018 MEG DENIS G. ATMOSPHERIC DRIER TENDER-C Ot E55.9 VITAMIN D DEFICIENCY, UNSPECIFIED 03/16/2018 NEW DENIS G. ATMOSPHERIC DRIER TENDER-C Ot E78.5 HYPERLIPIDEMIA, UNSPECIFIED 03/16/2018 MEG DENIS G. 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 ATMOSPHERIC DRIER TENDER-C Ot K21.9 GASTRO-ESOPHAGEAL REFLUX DISEASE WITHOUT 03/16/2018 MEG DENIS G. ATMOSPHERIC DRIER TENDER-C Ot N18.3 CHRONIC KIDNEY DISEASE, STAGE 3 (MODERAT 03/16/2018 PANTERA ROJAS, VANGIE Ot Z01.81 8 ENCOUNTER FOR OTHER PREPROCEDURAL EXAMIN 03/16/2018 JOSÉ LUIS OBRIEN, JARROD Chase Ot M17.12 UNILATERAL PRIMARY OSTEOARTHRITIS, LEFT 03/17/2018 ANTHONY GARZA Ot E04.1 NONTOXIC SINGLE THYROID NODULE 03/17/2018 ANTHONY GARZA Ot E11.22 TYPE 2 DIABETES 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 MECHANICAL CAR CHECKER 03/17/2018 ANTHONY GARZA Ot E11.43 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 03/17/2018 ANTHONY GARZA Ot E78.5 HYPERLIPIDEMIA, UNSPECIFIED 03/17/2018 ANTHONY GARZA Ot 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 KD[place]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 03/17/2018 ANTHONY GARAZ Ot I25.1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 03/17/2018 ANTHONY GARZA Ot I50.9 HEART FAILURE, UNSPECIFIED 03/17/2018 GREGANTHONY Ot K21.9 GASTRO-ESOPHAGEAL REFLUX DISEASE WITHOUT 03/17/2018 ANTHONY GARZA Ot N18.3 CHRONIC KIDNEY DISEASE, STAGE 3 (MODERAT 03/17/2018 GREGANTHONY Ot Z08 ENCNTR FOR FOLLOW-UP EXAM AFTER TRTMT FO 03/17/2018 GREG ANTHONY Bender Ot Z79.02 GENERATION TECHNOLOGIST (CURRENT) USE OF ANTITHROMBOTI 03/17/2018 GREGANTHONY Ot Z79.4 ALF (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 03/17/2018 GREGANTHONY Ot Z79.899 OTHER ALF (CURRENT) DRUG THERAPY 03/17/2018 GREGANTHONY Ot Z85.3 PERSONAL HISTORY OF MALIGNANT NEOPLASM O 03/17/2018 ANTHONY GARZA Ot Z95.5 PRESENCE OF CORONARY ANGIOPLASTY IMPLANT 04/05/2018 DENIS WEAVER ATMOSPHERIC DRIER TENDER-C Ot E11.9 TYPE 2 DIABETES MELLITUS WITHOUT COMPLIC 04/05/2018 DENIS WEAVER ATMOSPHERIC DRIER TENDER-C Ot E55.9 VITAMIN D DEFICIENCY, UNSPECIFIED 04/05/2018 DENIS WEAVER ATMOSPHERIC DRIER TENDER-C Ot E78.5 HYPERLIPIDEMIA, UNSPECIFIED 04/05/2018 MEG DENIS G. 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 04/05/2018 DENIS WEAVER ATMOSPHERIC DRIER TENDER-C Ot K21.9 GASTRO-ESOPHAGEAL REFLUX DISEASE WITHOUT 04/05/2018 DENIS WEAVER ATMOSPHERIC DRIER TENDER-C Ot N18.3 CHRONIC KIDNEY DISEASE, STAGE 3 (MODERAT 04/07/2018 GREGANTHONY Ot E04.1 NONTOXIC SINGLE THYROID NODULE 04/07/2018 ANTHONY GARZA Ot E11.22 TYPE 2 DIABETES 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 MECHANICAL CAR CHECKER 04/07/2018 ANTHONY GARZA Ot E11.43 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 04/07/2018 ANTHONY GARZA Ot E78.5 HYPERLIPIDEMIA, UNSPECIFIED 04/07/2018 ANTHONY GARZA Ot 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 [place]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 04/07/2018 ANTHONY GARZA Ot I25.1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 04/07/2018 ANTHONY GARZA Ot I50.9 HEART FAILURE, UNSPECIFIED 04/07/2018 ANTHONY GARZA Ot K21.9 GASTRO-ESOPHAGEAL REFLUX DISEASE WITHOUT 04/07/2018 ANTHONY GARZA Ot N18.3 CHRONIC KIDNEY DISEASE, STAGE 3 (MODERAT 04/07/2018 ANTHONY GARZA Ot Z08 ENCNTR FOR FOLLOW-UP EXAM AFTER TRTMT FO 04/07/2018 ANTHONY GARZA Ot Z79.02 ALF (CURRENT) USE OF ANTITHROMBOTI 04/07/2018 ANTHONY GARZA Ot Z79.4 GENERATION TECHNOLOGIST (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 04/07/2018 ANTHONY GARZA Ot Z79.899 OTHER ALF (CURRENT) DRUG THERAPY 04/07/2018 ANTHONY GARZA Ot Z85.3 PERSONAL HISTORY OF MALIGNANT NEOPLASM O 04/07/2018 ANTHONY GARZA Ot Z95.5 PRESENCE OF CORONARY ANGIOPLASTY IMPLANT 04/27/2018 NAOMY KING COMPUTER REPAIRER Ot Z12.31 ENCNTR SCREEN MAMMOGRAM FOR MALIGNANT NE 04/29/2018 NAOMY KINGP Ot 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 04/29/2018 NAOMY KING COMPUTER REPAIRER Ot Z12.31 ENCNTR SCREEN MAMMOGRAM FOR MALIGNANT NE 04/29/2018 ANTHONY GARZA Ot E04.1 NONTOXIC SINGLE THYROID NODULE 04/29/2018 ANTHONY GARZA Ot E11.22 TYPE 2 DIABETES 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 MECHANICAL CAR CHECKER 04/29/2018 ANTHONY GARZA Ot E11.43 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 04/29/2018 ANTHONY GARZA Ot E78.5 HYPERLIPIDEMIA, UNSPECIFIED 04/29/2018 ANTHONY GARZA Ot 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 [place]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 04/29/2018 ANTHONY GARZA Ot I25.1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 04/29/2018 ANTHONY GARZA Ot I50.9 HEART FAILURE, UNSPECIFIED 04/29/2018 ANTHONY GARZA Ot K21.9 GASTRO-ESOPHAGEAL REFLUX DISEASE WITHOUT 04/29/2018 GREGANTHONY SAMSON Yulia Ot N18.3 CHRONIC KIDNEY DISEASE, STAGE 3 (MODERAT 04/29/2018 ANTHONY GARZA Yulia Ot Z08 ENCNTR FOR FOLLOW-UP EXAM AFTER TRTMT FO 04/29/2018 ANTHONY GARZA Yulia Ot Z79.02 GENERATION TECHNOLOGIST (CURRENT) USE OF ANTITHROMBOTI 04/29/2018 ANTHONY GARZA Yulia Ot Z79.4 ALF (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 04/29/2018 ANTHONY GARZA Yulia Ot Z79.899 OTHER GENERATION TECHNOLOGIST (CURRENT) DRUG THERAPY 04/29/2018 ANTHONY GARZA Yulia Ot Z85.3 PERSONAL HISTORY OF MALIGNANT NEOPLASM O 04/29/2018 GREGANTHONY SAMSON Yulia Ot Z95.5 PRESENCE OF CORONARY ANGIOPLASTY IMPLANT 05/18/2018 NAOMY KING COMPUTER REPAIRER Ot 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 1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 06/22/2018 DIMPLE NOVOA MD, Ot I48. [...] 06/22/2018 DIMPLE NOVOA MD, Ot Z79. 82 GENERATION TECHNOLOGIST (CURRENT) USE OF ASPIRIN 06/22/2018 DIMPLE NOVOA MD, Ot Z79.899 OTHER GENERATION TECHNOLOGIST (CURRENT) DRUG THERAPY 06/22/2018 DIMPLE NOVOA MD, Ot Z85. 3 PERSONAL HISTORY OF MALIGNANT NEOPLASM O 06/22/2018 DIMPLE NOVOA MD Ot Z95. 5 PRESENCE OF CORONARY ANGIOPLASTY IMPLANT 07/09/2018 SKIP KERN APRN Ot E11.22 TYPE 2 DIABETES 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 MECHANICAL CAR CHECKER 07/09/2018 SKIP KERN APRN Ot E78.5 HYPERLIPIDEMIA, UNSPECIFIED 07/09/2018 SKIP KERN APRN Ot E87.2 ACIDOSIS 07/09/2018 SKIP KERN APRN Ot E87.3 ALKALOSIS 07/09/2018 SKIP KERN APRN Ot I12.9 HYPERTENSIVE CHRONIC KIDNEY DISEASE W ST 07/09/2018 SKIP KERN APRN Ot I25.1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 07/09/2018 SKIP KERN APRN Ot K21.9 [...] Ot I25. 1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 07/09/2018 DIMPLE NOVOA MD Ot I48. [...] 07/09/2018 DIMPLE NOVOA MD Ot Z79. 82 GENERATION TECHNOLOGIST (CURRENT) USE OF ASPIRIN 07/09/2018 DIMPLE NOVOA MD Ot Z79.899 OTHER GENERATION TECHNOLOGIST (CURRENT) DRUG THERAPY 07/09/2018 DIMPLE NOVOA MD Ot Z85. 3 PERSONAL HISTORY OF MALIGNANT NEOPLASM O 07/09/2018 DIMPLE NOVOA MD Ot Z95. 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 MECHANICAL CAR CHECKER 07/29/2018 SKIP KERN APRN Ot E78.5 HYPERLIPIDEMIA, UNSPECIFIED 07/29/2018 SKIP KERN APRN Ot E87.2 ACIDOSIS 07/29/2018 SKIP KERN APRN Ot E87.3 ALKALOSIS 07/29/2018 SKIP KERN APRN Ot I12.9 HYPERTENSIVE CHRONIC KIDNEY DISEASE W ST 07/29/2018 SKIP KERN APRN Ot I25.1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 07/29/2018 SKIP KERN APPRENTICE FUNERAL DIRECTOR Ot K21.9 GASTRO-ESOPHAGEAL REFLUX DISEASE WITHOUT 07/29/2018 SKIP KERN APRN Ot N18.3 CHRONIC KIDNEY DISEASE, STAGE 3 (MODERAT 07/29/2018 SKIP KERN APPRENTICE FUNERAL DIRECTOR Ot N25.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 9 TYPE 2 DIABETES MELLITUS WITHOUT COMPLIC 07/29/2018 DIMPLE NOVOA MD Ot E78. 5 HYPERLIPIDEMIA, UNSPECIFIED 07/29/2018 DIMPLE NOVOA MD Ot I12. 9 HYPERTENSIVE CHRONIC KIDNEY DISEASE W ST 07/29/2018 DIMPLE NOVOA MD Ot I25. 1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 07/29/2018 DIMPLE NOVOA MD Ot I48. [...] 07/29/2018 DIMPLE NOVOA MD, Ot Z79. 82 GENERATION TECHNOLOGIST (CURRENT) USE OF ASPIRIN 07/29/2018 DIMPLE NOVOA MD, Ot Z79.899 OTHER ALF (CURRENT) DRUG THERAPY 07/29/2018 DIMPLE NOVOA MD Ot Z85. 3 PERSONAL HISTORY OF MALIGNANT NEOPLASM O 07/29/2018 DIMPLE NOVOA MD Ot Z95. 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 10/28/2018 ANTHONY GARZA Yulia Ot I25.1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 10/28/2018 ANTHONY GARZA Yulia Ot I50.9 HEART FAILURE, UNSPECIFIED 10/28/2018 GREG ALYCEBJORN Yulia Ot K21.9 GASTRO-ESOPHAGEAL REFLUX DISEASE WITHOUT 10/28/2018 ANTHONY GARZA Yulia Ot N18.3 CHRONIC KIDNEY DISEASE, STAGE 3 (MODERAT 10/28/2018 ANTHONY GARZA Yulia Ot Z08 ENCNTR FOR FOLLOW-UP EXAM AFTER TRTMT FO 10/28/2018 ANTHONY GARZA Yulia Ot Z79.02 ALF (CURRENT) USE OF ANTITHROMBOTI 10/28/2018 GREGALYCEBJORN Yulia Ot Z79.4 GENERATION TECHNOLOGIST (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 10/28/2018 ANTHONY GARZA Yulia Ot Z79.899 OTHER ALF (CURRENT) DRUG THERAPY 10/28/2018 ANTHONY GARZA Yulia Ot Z85.3 PERSONAL HISTORY OF MALIGNANT NEOPLASM O 10/28/2018 GREGALYCEBJORN Yulia Ot Z95.5 PRESENCE OF CORONARY ANGIOPLASTY IMPLANT 10/28/2018 MARCELO ROJAS, JOE Sherman Ot L97.5 21 NON-PRS CHRONIC ULCER OTH PRT L FOOT ZIMMERMAN 10/28/2018 DESTINEE VANG MD Ot I25.1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 12/01/2018 SKIP KERN APPRENTICE FUNERAL DIRECTOR Ot R26.81 UNSTEADINESS ON FEET 12/01/2018 SKIP KERN APPRENTICE FUNERAL DIRECTOR Ot R53.1 WEAKNESS 12/08/2018 JOE ROBERTSON MD Ot L97.5 21 NON-PRS CHRONIC ULCER OTH PRT L FOOT ZIMMERMAN 12/08/2018 CIERA ROJAS, DESTINEE Soliman Ot I25.1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 12/08/2018 MARCELO ROJAS, JOE Sherman Ot E04.1 NONTOXIC SINGLE THYROID NODULE 12/08/2018 GREGANTHONY Ot E04.1 NONTOXIC SINGLE THYROID NODULE 12/08/2018 GREG ALYCEBJORN Yulia Ot E11.22 TYPE 2 DIABETES 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 MECHANICAL CAR CHECKER 12/08/2018 GREGANTHONY Ot E11.43 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 12/08/2018 GREGANTHONY Ot E78.5 HYPERLIPIDEMIA, UNSPECIFIED 12/08/2018 GREGALYCEBJORN Yulia Ot 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 [place]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 12/08/2018 GREGANTHONY Ot I25.1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 12/08/2018 GREGALYCEBJORN Yulia Ot I50.9 HEART FAILURE, UNSPECIFIED 12/08/2018 GREGALYCEBJORN Yulia Ot K21.9 GASTRO-ESOPHAGEAL REFLUX DISEASE WITHOUT 12/08/2018 GREGANTHONY Ot N18.3 CHRONIC KIDNEY DISEASE, STAGE 3 (MODERAT 12/08/2018 GREGALYCEBJORN Yulia Ot Z08 ENCNTR FOR FOLLOW-UP EXAM AFTER TRTMT FO 12/08/2018 ANTHONY GARZA Ot Z79.02 GENERATION TECHNOLOGIST (CURRENT) USE OF ANTITHROMBOTI 12/08/2018 GREGANTHONY Ot Z79.4 GENERATION TECHNOLOGIST (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 12/08/2018 GREGALYCEBJORN Yulia Ot Z79.899 OTHER GENERATION TECHNOLOGIST (CURRENT) DRUG THERAPY 12/08/2018 ANTHONY GARZA Ot Z85.3 PERSONAL HISTORY OF MALIGNANT NEOPLASM O 12/08/2018 ANTHONY GARZA Ot Z95.5 PRESENCE OF CORONARY ANGIOPLASTY IMPLANT 12/08/2018 SKIP KERN APPRENTICE FUNERAL DIRECTOR Ot R26.81 UNSTEADINESS ON FEET 12/08/2018 SKIP KERN APPRENTICE FUNERAL DIRECTOR Ot R53.1 WEAKNESS 12/09/2018 SKIP KERN APPRENTICE FUNERAL DIRECTOR Ot R26.81 UNSTEADINESS ON FEET 12/09/2018 SKIP KERN APPRENTICE FUNERAL DIRECTOR Ot R53.1 WEAKNESS 12/10/2018 MARCELO ROJAS, JOE Sherman Ot R30.9 PAINFUL MICTURITION, UNSPECIFIED 12/17/2018 SKIP KERN APRN Ot R26.81 UNSTEADINESS ON FEET 12/17/2018 SKIP KERN APRN Ot R53.1 WEAKNESS 12/23/2018 JOE ROBERTSON MD Ot L97.5 21 NON-PRS CHRONIC ULCER OTH PRT L FOOT ZIMMERMAN 12/23/2018 CIERA ROJAS, DESTINEE Soliman Ot I25.1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 12/23/2018 JOE ROBERTSON MD Ot R30.9 PAINFUL MICTURITION, UNSPECIFIED 12/27/2018 JOE ROBERTSON MD Ot L97.5 21 NON-PRS CHRONIC ULCER OTH PRT L FOOT ZIMMERMAN 12/27/2018 CIERA ROJAS, DESTINEE Soliman Ot I25.1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 12/27/2018 JOE ROBERTSON MD Ot E04.1 NONTOXIC SINGLE THYROID NODULE 12/27/2018 ANTHONY GARZA Ot E04.1 NONTOXIC SINGLE THYROID NODULE 12/27/2018 ANTHONY GARZA Ot E11.22 TYPE 2 DIABETES 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 MECHANICAL CAR CHECKER 12/27/2018 ANTHONY GARZA Ot E11.43 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 12/27/2018 ANTHONY GARZA Ot E78.5 HYPERLIPIDEMIA, UNSPECIFIED 12/27/2018 ANTHONY GARZA Ot 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 [facility]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 12/27/2018 ANTHONY GARZA Ot I25.1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 12/27/2018 ANTHONY GARZA Ot I50.9 HEART FAILURE, UNSPECIFIED 12/27/2018 ANTHONY GARZA Ot K21.9 GASTRO-ESOPHAGEAL REFLUX DISEASE WITHOUT 12/27/2018 ANTHONY GARZA Ot N18.3 CHRONIC KIDNEY DISEASE, STAGE 3 (MODERAT 12/27/2018 ANTHONY GARZA Ot Z08 ENCNTR FOR FOLLOW-UP EXAM AFTER TRTMT FO 12/27/2018 ANTHONY GARZA Ot Z79.02 ALF (CURRENT) USE OF ANTITHROMBOTI 12/27/2018 ANTHONY GARZA Ot Z79.4 ALF (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 12/27/2018 ANTHONY GARZA Ot Z79.899 OTHER ALF (CURRENT) DRUG THERAPY 12/27/2018 ANTHONY GARZA Ot [...] Soliman Ot I25.1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 12/31/2018 JOE ROBERTSON MD Ot E04.1 NONTOXIC SINGLE THYROID NODULE 12/31/2018 ANTHONY GARZA Ot E04.1 NONTOXIC SINGLE THYROID NODULE 12/31/2018 ANTHONY GARZA Ot E11.22 TYPE 2 DIABETES 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 MECHANICAL CAR CHECKER 12/31/2018 ANTHONY GARZA Ot E11.43 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 12/31/2018 ANTHONY GARZA Ot E78.5 HYPERLIPIDEMIA, UNSPECIFIED 12/31/2018 ANTHONY GARZA Ot 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 [facility]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 12/31/2018 ANTHONY GARZA Ot I25.1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 12/31/2018 ANTHONY GARZA Ot I50.9 HEART FAILURE, UNSPECIFIED 12/31/2018 ANTHONY GARZA Ot K21.9 GASTRO-ESOPHAGEAL REFLUX DISEASE WITHOUT 12/31/2018 ANTHONY GARZA Ot N18.3 CHRONIC KIDNEY DISEASE, STAGE 3 (MODERAT 12/31/2018 ANTHONY GARZA Ot Z08 ENCNTR FOR FOLLOW-UP EXAM AFTER TRTMT FO 12/31/2018 ANTHONY GARZA Ot Z79.02 GENERATION TECHNOLOGIST (CURRENT) USE OF ANTITHROMBOTI 12/31/2018 ANTHONY GARZA Ot Z79.4 GENERATION TECHNOLOGIST (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 12/31/2018 ANTHONY GARZA Ot Z79.899 OTHER GENERATION TECHNOLOGIST (CURRENT) DRUG THERAPY 12/31/2018 ALYCE GARZAAN N [...] Ot I25. 1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 12/31/2018 DIMPLE NOVOA MD Ot I49. 5 SICK SINUS SYNDROME 12/31/2018 AMADEO BARRETT MD, Ot Z01.818 ENCOUNTER FOR OTHER PREPROCEDURAL EXAMIN 12/31/2018 AMADEO BARRETT MD Ot E11. 22 TYPE 2 DIABETES 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 MECHANICAL CAR CHECKER 12/31/2018 AMADEO BARRETT MD Ot E11. 51 TYPE 2 DIABETES W DIABETIC PERIPHERAL AN 12/31/2018 AMADEO BARRETT MD Ot E66. 9 OBESITY, UNSPECIFIED 12/31/2018 AMADEO BARRETT MD, Ot I12. 9 HYPERTENSIVE CHRONIC KIDNEY DISEASE W ST 12/31/2018 AMADEO BARRETT MD, Ot I25. 1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 12/31/2018 AMADEO BARRETT MD Ot I73. 9 PERIPHERAL VASCULAR DISEASE, UNSPECIFIED 12/31/2018 AMADEO BARRETT MD Ot K44. 9 DIAPHRAGMATIC HERNIA WITHOUT OBSTRUCTION 12/31/2018 AMADEO BARRETT MD, Ot N18. 9 CHRONIC KIDNEY DISEASE, UNSPECIFIED 12/31/2018 AMADEO BARRETT MD Ot R13. 10 DYSPHAGIA, UNSPECIFIED 12/31/2018 AMADEO BARRETT MD Ot Z68. 33 BODY MASS INDEX (BMI) 33.0-33.9, ADULT 12/31/2018 AMADEO BARRETT MD Ot Z79. 02 GENERATION TECHNOLOGIST (CURRENT) USE OF ANTITHROMBOTI 12/31/2018 AMADEO BARRETT MD Ot Z79. 4 GENERATION TECHNOLOGIST (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 12/31/2018 AMADEO BARRETT MD Ot Z79. 82 GENERATION TECHNOLOGIST (CURRENT) USE OF ASPIRIN 12/31/2018 AMADEO BARRETT MD Ot Z79.899 OTHER GENERATION TECHNOLOGIST (CURRENT) DRUG THERAPY 12/31/2018 AMADEO BARRETT MD [...] Ot I25. 1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 01/02/2019 DIMPLE NOVOA MD Ot I49. 5 SICK SINUS SYNDROME 01/05/2019 AMADEO BARRETT MD Ot E11. 22 TYPE 2 DIABETES 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 MECHANICAL CAR CHECKER 01/05/2019 AMADEO BARRETT MD Ot E11. 51 TYPE 2 DIABETES W DIABETIC PERIPHERAL AN 01/05/2019 AMADEO BARRETT MD Ot E66. 9 OBESITY, UNSPECIFIED 01/05/2019 AMADEO BARRETT MD Ot I12. 9 HYPERTENSIVE CHRONIC KIDNEY DISEASE W ST 01/05/2019 AMADEO BARRETT MD Ot I25. 1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 01/05/2019 AMADEO BARRETT MD Ot I73. 9 PERIPHERAL VASCULAR DISEASE, UNSPECIFIED 01/05/2019 AMADEO BARRETT MD Ot K44. 9 DIAPHRAGMATIC HERNIA WITHOUT OBSTRUCTION 01/05/2019 AMADEO BARRETT MD Ot N18. 9 CHRONIC KIDNEY DISEASE, UNSPECIFIED 01/05/2019 AMADEO BARRETT MD Ot R13. 10 DYSPHAGIA, UNSPECIFIED 01/05/2019 AMADEO BARRETT MD Ot Z68. 33 BODY MASS INDEX (BMI) 33.0-33.9, ADULT 01/05/2019 AMADEO BARRETT MD Ot Z79. 02 GENERATION TECHNOLOGIST (CURRENT) USE OF ANTITHROMBOTI 01/05/2019 AMADEO BARRETT MD Ot Z79. 4 GENERATION TECHNOLOGIST (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 01/05/2019 AMADEO BARRETT MD Ot Z79. 82 ALF (CURRENT) USE OF ASPIRIN 01/05/2019 AMADEO BARRETT MD, Ot Z79.899 OTHER GENERATION TECHNOLOGIST (CURRENT) DRUG THERAPY 01/05/2019 NENA ROJAS, AMADEO Sherman Ot Z95. 0 PRESENCE OF CARDIAC PACEMAKER 01/05/2019 NENA ROJAS, AMADEO Sherman Ot Z95.820 PERIPHERAL VASCULAR ANGIOPLASTY STATUS W 01/19/2019 DIMPLE NOVOA MD Ot E78. 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 1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 01/19/2019 DIMPLE NOVOA MD, Ot I49. [...] Ot I25. 1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 02/05/2019 ANALIA WARD MD, Ot I25. [...] 02/05/2019 ANALIA WARD MD, Ot Z79. 02 ALF (CURRENT) USE OF ANTITHROMBOTI 02/05/2019 ANALIA WARD MD, Ot Z79. 4 GENERATION TECHNOLOGIST (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 02/05/2019 ANALIA WARD [...] Ot I25. 1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 03/03/2019 ANALIA WARD MD, Ot I25. [...] 03/03/2019 ANALIA WARD MD Ot Z79. 01 GENERATION TECHNOLOGIST (CURRENT) USE OF ANTICOAGULANT 03/03/2019 ANALIA WARD MD Ot Z79. 4 ALF (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 03/03/2019 ANALIA WARD [...] Ot I25. 1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 03/03/2019 ANALIA WARD MD, Ot I25. [...] 03/03/2019 ANALIA WARD MD, Ot Z79. 01 ALF (CURRENT) USE OF ANTICOAGULANT 03/03/2019 ANALIA WARD MD, Ot Z79. 4 ALF (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 03/03/2019 ANALIA WARD [...] Ot I25. 1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 03/04/2019 ANALIA WARD MD, Ot I25. [...] 03/04/2019 ANALIA WARD MD, Ot Z79. 01 ALF (CURRENT) USE OF ANTICOAGULANT 03/04/2019 ANALIA WARD MD, Ot Z79. 4 GENERATION TECHNOLOGIST (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 03/04/2019 ANALIA WARD [...] MD Ot I25.1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 03/11/2019 JOE ROBERTSON MD Ot R30.9 PAINFUL MICTURITION, UNSPECIFIED 03/11/2019 DIMPLE NOVOA MD Ot E78. 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 1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 03/11/2019 DIMPLE NOVOA MD Ot I49. 5 SICK SINUS SYNDROME 03/11/2019 AMADEO BARRETT MD Ot Z01.818 ENCOUNTER FOR OTHER PREPROCEDURAL EXAMIN 03/11/2019 JOE ROBERTSON MD Ot R05 COUGH 03/11/2019 JOE ROBERTSON MD Ot Z95.0 PRESENCE OF CARDIAC PACEMAKER 03/11/2019 LOGAN BOLIVAR APPRENTICE FUNERAL DIRECTOR Ot E86.0 DEHYDRATION 03/15/2019 LOGAN BOLIVAR APPRENTICE FUNERAL DIRECTOR Ot E86.0 DEHYDRATION 03/17/2019 ANTHONY GARZA Ot [...] Ot I25. 1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 04/06/2019 CRIS WALDEN MD, Ot I25. [...] 9 IRRITABLE BOWEL SYNDROME WITHOUT DIARRHE 04/06/2019 CRIS WALDEN MD, Ot M10. 9 GOUT, UNSPECIFIED 04/06/2019 CRIS WALDEN MD, Ot N17. 9 ACUTE KIDNEY FAILURE, UNSPECIFIED 04/06/2019 CRIS WALDEN MD, Ot N18. 4 CHRONIC KIDNEY DISEASE, STAGE 4 (SEVERE) 04/06/2019 CRIS WALDEN MD Ot R57. 8 OTHER SHOCK 04/06/2019 CRIS WALDEN MD, Ot T82.855A STENOSIS OF CORONARY ARTERY STENT, INITI 04/06/2019 CRIS WALDEN MD Ot Z79. 4 GENERATION TECHNOLOGIST (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 04/06/2019 CRIS WALDEN [...] E11.22 TYPE 2 DIABETES 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 MECHANICAL CAR CHECKER 04/07/2019 ANTHONY GARZA Ot E11.43 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 04/07/2019 ANTHONY GARZA Ot E78.5 HYPERLIPIDEMIA, UNSPECIFIED 04/07/2019 ANTHONY GARZA Ot 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 [place]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 04/07/2019 ANTHONY GARZA Ot I25.1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 04/07/2019 ANTHONY GARZA Ot K21.9 GASTRO-ESOPHAGEAL REFLUX DISEASE WITHOUT 04/07/2019 ANTHONY GARZA Ot N18.3 CHRONIC KIDNEY DISEASE, STAGE 3 (MODERAT 04/07/2019 ANTHONY GARZA Ot Z08 ENCNTR FOR FOLLOW-UP EXAM AFTER TRTMT FO 04/07/2019 ANTHONY GARZA Ot Z79.02 ALF (CURRENT) USE OF ANTITHROMBOTI 04/07/2019 ANTHONY GARZA Ot Z79.4 GENERATION TECHNOLOGIST (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 04/07/2019 ANTHONY GARZA Ot Z79.899 OTHER ALF (CURRENT) DRUG THERAPY 04/07/2019 ANTHONY GARZA Ot Z85.3 PERSONAL HISTORY OF MALIGNANT NEOPLASM O 04/07/2019 ANTHONY GARZA Ot Z95.5 PRESENCE OF CORONARY ANGIOPLASTY IMPLANT 05/03/2019 MARCELO ROJAS, JOE Sherman Ot L97.5 21 NON-PRS CHRONIC ULCER OTH PRT L FOOT ZIMMERMAN 05/03/2019 CIERA ROJAS, DESTINEE Soliman Ot I25.1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 05/03/2019 MARCELO ROJAS, JOE Sherman Ot E04.1 NONTOXIC SINGLE THYROID NODULE 05/03/2019 ANTHONY GARZA Ot E04.1 NONTOXIC SINGLE THYROID NODULE 05/03/2019 ANTHONY GARZA Ot E11.22 TYPE 2 DIABETES 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 MECHANICAL CAR CHECKER 05/03/2019 ANTHONY GARZA Ot E11.43 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 05/03/2019 ANTHONY GARZA Ot E78.5 HYPERLIPIDEMIA, UNSPECIFIED 05/03/2019 ANTHONY GARZA Ot 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 [place]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 05/03/2019 ANTHONY GARZA Ot I25.1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 05/03/2019 ANTHONY GARZA Ot I50.9 HEART FAILURE, UNSPECIFIED 05/03/2019 ANTHONY GARZA Ot K21.9 GASTRO-ESOPHAGEAL REFLUX DISEASE WITHOUT 05/03/2019 ANTHONY GARZA Ot N18.3 CHRONIC KIDNEY DISEASE, STAGE 3 (MODERAT 05/03/2019 ANTHONY GARZA Ot Z08 ENCNTR FOR FOLLOW-UP EXAM AFTER TRTMT FO 05/03/2019 ANTHONY GARZA Ot Z79.02 ALF (CURRENT) USE OF ANTITHROMBOTI 05/03/2019 ANTHONY GARZA Ot Z79.4 ALF (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 05/03/2019 ANTHONY GARZA Ot Z79.899 OTHER GENERATION TECHNOLOGIST (CURRENT) DRUG THERAPY 05/03/2019 ANTHONY GARZA Ot [...] Ot I25. 1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 05/03/2019 DIMPLE NOVOA MD Ot I49. 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 MECHANICAL CAR CHECKER 05/03/2019 ANTHONY GARZA Ot E11.43 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 05/03/2019 ANTHONY GARZA Ot E78.5 HYPERLIPIDEMIA, UNSPECIFIED 05/03/2019 ANTHONY GARZA Ot 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 [place]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 05/03/2019 ANTHONY GARZA Ot I25.1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 05/03/2019 ANTHONY GARZA Ot K21.9 GASTRO-ESOPHAGEAL REFLUX DISEASE WITHOUT 05/03/2019 ANTHONY GARZA Ot N18.3 CHRONIC KIDNEY DISEASE, STAGE 3 (MODERAT 05/03/2019 ANTHONY GARZA Ot Z08 ENCNTR FOR FOLLOW-UP EXAM AFTER TRTMT FO 05/03/2019 ANTHONY GARZA Ot Z79.02 GENERATION TECHNOLOGIST (CURRENT) USE OF ANTITHROMBOTI 05/03/2019 ANTHONY GARZA Yulia Ot Z79.4 GENERATION TECHNOLOGIST (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 05/03/2019 ANTHONY GARZA Ot Z79.899 OTHER GENERATION TECHNOLOGIST (CURRENT) DRUG THERAPY 05/03/2019 ANTHONY GARZA Ot [...] MD, Ot I25.1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 05/05/2019 ANGEL MCDOWELL MD, Ot I48 .0 PAROXYSMAL ATRIAL FIBRILLATION 05/05/2019 ANGEL MCDOWELL MD, Ot I49 .5 SICK SINUS SYNDROME 05/05/2019 ANGEL MCDOWELL MD, Ot I50.31 ACUTE DIASTOLIC (CONGESTIVE) HEART FAILU 05/05/2019 ANGEL MCDOWELL MD Ot I70.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 [place] ARTERIES OF EXTREMITI 05/05/2019 ANGEL MCDOWELL MD, Ot J90 PLEURAL EFFUSION, NOT ELSEWHERE CLASSIFI 05/05/2019 ANGEL MCDOWELL MD, Ot K58 .9 IRRITABLE BOWEL SYNDROME WITHOUT DIARRHE 05/05/2019 ANGEL MCDOWELL MD, Ot N18 .3 CHRONIC KIDNEY DISEASE, STAGE 3 (MODERAT 05/05/2019 ANGEL MCDOWELL MD, Ot T82.855A STENOSIS OF CORONARY ARTERY STENT, INITI 05/05/2019 ANGEL MCDOWELL MD, Ot Z79.01 ALF (CURRENT) USE OF ANTICOAGULANT 05/05/2019 ANGEL MCDOWELL MD, Ot Z79.02 ALF (CURRENT) USE OF ANTITHROMBOTI 05/05/2019 ANGEL MCDOWELL MD, Ot Z79 .4 ALF (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 05/05/2019 ANGEL MCDOWELL [...] MD, Ot I25.1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 05/05/2019 ANGEL MCDOWELL MD Ot I48 .0 PAROXYSMAL ATRIAL FIBRILLATION 05/05/2019 ANGEL MCDOWELL MD Ot I49 .5 SICK SINUS SYNDROME 05/05/2019 ANGEL MCDOWELL MD Ot I50.31 ACUTE DIASTOLIC (CONGESTIVE) HEART FAILU 05/05/2019 ANGEL MCDOWELL MD Ot I70.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 00 PURE HYPERCHOLESTEROLEMIA, UNSPECIFIED 05/08/2019 CRIS WALDEN MD Ot E78. 5 HYPERLIPIDEMIA, UNSPECIFIED 05/08/2019 CRIS WALDEN MD, Ot I12. 9 HYPERTENSIVE CHRONIC KIDNEY DISEASE W ST 05/08/2019 CRIS WALDEN MD Ot I25. 1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 05/08/2019 CRIS WALDEN MD Ot I48. [...] 05/08/2019 CRIS WALDEN MD, Ot Z79. 01 ALF (CURRENT) USE OF ANTICOAGULANT 05/08/2019 CRIS WALDEN MD Ot Z79. 02 ALF (CURRENT) USE OF ANTITHROMBOTI 05/08/2019 WIN MD, CRIS M Ot Z79. 4 GENERATION TECHNOLOGIST (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 05/08/2019 CRIS WALDEN MD Ot Z80. 9 FAMILY HISTORY OF MALIGNANT NEOPLASM, UN 05/08/2019 CRIS WALDEN MD Ot Z82. 49 FAMILY HX OF ISCHEM HEART DIS AND OTH DI 05/08/2019 CRIS WALDEN MD Ot Z83. 3 FAMILY HISTORY OF DIABETES MELLITUS 05/08/2019 CRIS WALDEN MD Ot Z88. 1 ALLERGY STATUS TO OTHER ANTIBIOTIC AGENT 05/08/2019 CIRS WALDEN MD Ot Z88. 2 ALLERGY STATUS [...] 22 TYPE 2 DIABETES 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 MECHANICAL CAR CHECKER 05/08/2019 CRIS WALDEN MD Ot E78. 00 PURE HYPERCHOLESTEROLEMIA, UNSPECIFIED 05/08/2019 CRIS WALDEN MD Ot E78. 5 HYPERLIPIDEMIA, UNSPECIFIED 05/08/2019 CRIS WALDEN MD Ot I12. 9 HYPERTENSIVE CHRONIC KIDNEY DISEASE W ST 05/08/2019 CRIS WALDEN MD Ot I25. 1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 05/08/2019 CRIS WALDEN MD Ot I48. [...] 05/08/2019 CRIS WALDEN MD, Ot Z79. 01 ALF (CURRENT) USE OF ANTICOAGULANT 05/08/2019 CRIS WALDEN MD, Ot Z79. 02 ALF (CURRENT) USE OF ANTITHROMBOTI 05/08/2019 CRIS WALDEN MD, Ot Z79. 4 ALF (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 05/08/2019 CRIS WALDEN [...] MD, Ot I25.1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 05/28/2019 MOIRA HEART MD, Ot I25.2 OLD MYOCARDIAL INFARCTION 05/28/2019 MOIRA HEART MD Ot I48.91 UNSPECIFIED ATRIAL FIBRILLATION 05/28/2019 MOIRA HEART MD, Ot K58.9 IRRITABLE BOWEL SYNDROME WITHOUT DIARRHE 05/28/2019 MOIRA HEART MD, Ot L97.529 NON-PRESSURE CHRONIC ULCER OTH PRT LEFT 05/28/2019 MOIRA HEART MD, Ot T81.89XA OTH COMPLICATIONS OF PROCEDURES, NEC, IN 05/28/2019 MOIRA HEART MD, Ot Z79.01 GENERATION TECHNOLOGIST (CURRENT) USE OF ANTICOAGULANT 05/28/2019 MOIRA HEART MD, Ot Z79.02 ALF (CURRENT) USE OF ANTITHROMBOTI 05/28/2019 MOIRA HEART MD, Ot Z79.4 ALF (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 05/28/2019 MOIRA HEART [...] MD, Ot I25.1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 05/31/2019 MOIRA HEART MD, Ot I25.2 OLD MYOCARDIAL INFARCTION 05/31/2019 MOIRA HEART MD, Ot I48.91 UNSPECIFIED ATRIAL FIBRILLATION 05/31/2019 MOIRA HEART MD, Ot K58.9 IRRITABLE BOWEL SYNDROME WITHOUT DIARRHE 05/31/2019 MOIRA HEART MD, Ot L97.529 NON-PRESSURE CHRONIC ULCER OTH PRT LEFT 05/31/2019 MOIRA HEART MD, Ot T81.89XA OTH COMPLICATIONS OF PROCEDURES, NEC, IN 05/31/2019 MOIRA HEART MD Ot Z79.01 GENERATION TECHNOLOGIST (CURRENT) USE OF ANTICOAGULANT 05/31/2019 MOIRA HEART MD Ot Z79.02 ALF (CURRENT) USE OF ANTITHROMBOTI 05/31/2019 MOIRA HEART MD, Ot Z79.4 GENERATION TECHNOLOGIST (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 05/31/2019 MOIRA HEART [...] Z88.2 ALLERGY STATUS TO SULFONAMIDES STATUS 05/31/2019 [place] MD, MOIRA D Ot Z88.5 ALLERGY STATUS [...] Soliman Ot I25.1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 06/03/2019 JOE ROBERTSON MD Ot E04.1 NONTOXIC SINGLE THYROID NODULE 06/03/2019 ANTHONY GARZA Ot E04.1 NONTOXIC SINGLE THYROID NODULE 06/03/2019 ANTHONY GARZA Ot E11.22 TYPE 2 DIABETES 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 MECHANICAL CAR CHECKER 06/03/2019 ANTHONY GARZA Ot E11.43 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 06/03/2019 ANTHONY GARZA Ot E78.5 HYPERLIPIDEMIA, UNSPECIFIED 06/03/2019 ANTHONY GARZA Ot 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 [place]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 06/03/2019 ANTHONY GARZA Ot I25.1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 06/03/2019 ANTHONY GARZA Ot I50.9 HEART FAILURE, UNSPECIFIED 06/03/2019 ANTHONY GARZA Ot K21.9 GASTRO-ESOPHAGEAL REFLUX DISEASE WITHOUT 06/03/2019 ANTHONY GARZA Ot N18.3 CHRONIC KIDNEY DISEASE, STAGE 3 (MODERAT 06/03/2019 ANTHONY GARZA Ot Z08 ENCNTR FOR FOLLOW-UP EXAM AFTER TRTMT FO 06/03/2019 ANTHONY GARZA Ot Z79.02 ALF (CURRENT) USE OF ANTITHROMBOTI 06/03/2019 ANTHONY GARZA Ot Z79.4 ALF (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 06/03/2019 ANTHONY GARZA Ot Z79.899 OTHER ALF (CURRENT) DRUG THERAPY 06/03/2019 ANTHONY GARZA Ot [...] Ot I25. 1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 06/03/2019 DIMPLE NOVOA MD Ot I49. 5 SICK SINUS SYNDROME 06/03/2019 NENA ROJAS, AMADEO Sherman Ot Z01.818 ENCOUNTER FOR OTHER PREPROCEDURAL EXAMIN 06/03/2019 JOE ROBERTSON MD Ot R05 COUGH 06/03/2019 JOE ROBERTSON MD Ot Z95.0 PRESENCE OF CARDIAC PACEMAKER 06/03/2019 ANTHONY GARZA Ot E04.1 NONTOXIC SINGLE THYROID NODULE 06/03/2019 ANTHONY GARZA Ot E11.22 TYPE 2 DIABETES 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 MECHANICAL CAR CHECKER 06/03/2019 ANTHONY GARZA Ot E11.43 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 06/03/2019 ANTHONY GARZA Ot E78.5 HYPERLIPIDEMIA, UNSPECIFIED 06/03/2019 ANTHONY GARZA Ot 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 [place]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 06/03/2019 ANTHONY GARZA Ot I25.1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 06/03/2019 ANTHONY GARZA Ot K21.9 GASTRO-ESOPHAGEAL REFLUX DISEASE WITHOUT 06/03/2019 ANTHONY GARZA Ot N18.3 CHRONIC KIDNEY DISEASE, STAGE 3 (MODERAT 06/03/2019 ANTHONY GARZA Ot Z08 ENCNTR FOR FOLLOW-UP EXAM AFTER TRTMT FO 06/03/2019 ANTHONY GARZA Ot Z79.02 GENERATION TECHNOLOGIST (CURRENT) USE OF ANTITHROMBOTI 06/03/2019 ANTHONY GARZA Ot Z79.4 ALF (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 06/03/2019 ANTHONY GARZA Ot Z79.899 OTHER GENERATION TECHNOLOGIST (CURRENT) DRUG THERAPY 06/03/2019 GREG, ANTHONY Bender Ot Z85.3 PERSONAL HISTORY OF MALIGNANT NEOPLASM O 06/03/2019 GREGANTHONY Ot Z95.5 PRESENCE OF CORONARY ANGIOPLASTY IMPLANT 06/03/2019 Ot R19.7 DIAR KRIS, UNSPECIFIED 06/04/2019 CRIS WALDEN MD Ot E11. 22 TYPE 2 DIABETES 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 MECHANICAL CAR CHECKER 06/04/2019 CRIS WALDEN MD Ot E78. 00 PURE HYPERCHOLESTEROLEMIA, UNSPECIFIED 06/04/2019 CRIS WALDEN MD, Ot E78. 2 MIXED HYPERLIPIDEMIA 06/04/2019 CRIS WALDEN MD Ot G47. 33 OBSTRUCTIVE SLEEP APNEA (ADULT) (PEDIATR 06/04/2019 CRIS WALDEN MD, Ot I12. 9 HYPERTENSIVE CHRONIC KIDNEY DISEASE W ST 06/04/2019 CRIS WALDEN MD, Ot I25. 1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 06/04/2019 CRIS WALDEN MD Ot I48. 91 UNSPECIFIED ATRIAL FIBRILLATION 06/04/2019 CRIS WALDEN MD Ot I73. 9 PERIPHERAL VASCULAR DISEASE, UNSPECIFIED 06/04/2019 CRIS WALDEN MD Ot I95. 1 ORTHOSTATIC HYPOTENSION 06/04/2019 CRIS WALDEN MD Ot N18. 9 CHRONIC KIDNEY DISEASE, UNSPECIFIED 06/04/2019 CRIS WALDEN MD Ot Z79. 01 ALF (CURRENT) USE OF ANTICOAGULANT 06/04/2019 CRIS WALDEN MD Ot Z79. 02 GENERATION TECHNOLOGIST (CURRENT) USE OF ANTITHROMBOTI 06/04/2019 CRIS WALDEN MD Ot Z79. 4 ALF (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 06/04/2019 CRIS WALDEN MD, Ot Z79.899 OTHER GENERATION TECHNOLOGIST (CURRENT) DRUG THERAPY 06/04/2019 CRIS WALDEN MD [...] Ot J18.9 PNEUMONIA, UNSPECIFIED ORGANISM 06/27/2019 JOE ROBERSTON MD Ot R91.8 OTHER NONSPECIFIC ABNORMAL FINDING [...] E11.22 TYPE 2 DIABETES 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 MECHANICAL CAR CHECKER 07/29/2019 HANSON DO, KIMMY Ot E11.40 TYPE [...] UNQUALIFIED VISUAL LOSS, LEFT EYE, MYRNA 07/29/2019 HANSNO DO, KIMMY Ot H91.90 UNSPECIFIED HEARING LOSS, UNSPECIFIED EA 07/29/2019 HANSON DO, KIMMY Ot 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 [place]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 07/29/2019 HANSON DO, KIMMY Ot I25.1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 07/29/2019 HANSON DO, KIMMY Ot I48.0 [...] (ESBL) 07/29/2019 MARGIE CANDELARIO, KIMMY Ot Z79.4 ALF (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 07/29/2019 MARGIE CANDELARIO, [...] 22 TYPE 2 DIABETES 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 MECHANICAL CAR CHECKER 08/02/2019 CRIS WALDEN MD Ot E11. 51 TYPE 2 DIABETES W DIABETIC PERIPHERAL AN 08/02/2019 CRIS WALDEN MD Ot E11.649 TYPE 2 DIABETES MELLITUS WITH HYPOGLYCEM 08/02/2019 CRIS WALDEN MD Ot E78. 5 HYPERLIPIDEMIA, UNSPECIFIED 08/02/2019 CRIS WALDEN MD Ot I12. 9 HYPERTENSIVE CHRONIC KIDNEY DISEASE W ST 08/02/2019 CRIS WALDEN MD Ot I25. 1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 08/02/2019 CRIS WALDEN MD Ot I48. [...] Z95. 0 PRESENCE OF CARDIAC PACEMAKER 08/02/2019 CIRS WALDEN MD, Ot Z95. 2 PRESENCE OF PROSTHETIC HEART VALVE 08/02/2019 CRIS WALDEN MD Ot Z95. 5 PRESENCE OF CORONARY ANGIOPLASTY IMPLANT 08/02/2019 CRIS WALDEN MD, Ot Z95.820 PERIPHERAL VASCULAR ANGIOPLASTY STATUS W 08/05/2019 MARGIE CANDELARIO KIMMY Ot B96.20 UNSP ESCHERICHIA COLI THE CAUSE OF DI 08/05/2019 MARGIE DO, KIMMY Ot E11.22 TYPE 2 DIABETES 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 MECHANICAL CAR CHECKER 08/05/2019 MARGIE CANDELARIO KIMMY Ot E11.40 TYPE [...] KIMMY Ot I25.1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 08/05/2019 MARGIE DO KIMMY Ot I48.0 [...] (ESBL) 08/05/2019 HANSON DO, KIMMY Ot Z79.4 GENERATION TECHNOLOGIST (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 08/05/2019 HANSON DO, [...] E11.22 TYPE 2 DIABETES 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 MECHANICAL CAR CHECKER 08/05/2019 HANSON DO, KIMMY Ot E11.40 TYPE [...] KIMMY Ot I25.1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 08/05/2019 HANSON DO, KIMMY Ot I48.0 [...] (ESBL) 08/05/2019 MARGIE CANDELARIO KIMMY Ot Z79.4 ALF (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 08/05/2019 MARGIE CANDELARIO KIMMY Ot Z90.12 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 08/05/2019 MARGIE CANEDLARIO KIMMY Ot Z90.71 0 ACQUIRED ABSENCE OF [...] E11.22 TYPE 2 DIABETES 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 MECHANICAL CAR CHECKER 08/05/2019 HANSON DO, KIMMY Ot E11.40 TYPE [...] KIMMY Ot I25.1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 08/05/2019 HANSON DO, KIMMY Ot I48.0 [...] (ESBL) 08/05/2019 MARGIE CANDELARIO KIMMY Ot Z79.4 GENERATION TECHNOLOGIST (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 08/05/2019 HANSON DO, [...] E11.22 TYPE 2 DIABETES 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 MECHANICAL CAR CHECKER 08/05/2019 HANSON DO, KIMMY Ot E11.40 TYPE [...] KIMMY Ot I25.1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 08/05/2019 HANSON DO, KIMMY Ot I48.0 [...] (ESBL) 08/05/2019 HANSON DO, KIMMY Ot Z79.4 GENERATION TECHNOLOGIST (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 08/05/2019 HANSON DO, [...] Code Description Performed By Per formed On [id number] [place] OSPHIA OF CARDIAC SAMPL PRESSURE, L H 02/04/2019 [id number] ME ASUREMENT OF ARTERIAL PRESSURE, TERRAZAS 02/04/2019 [id number] [place] UOROSCOPY OF MULT COR ART USING L OSM 02/04/2019 [id number] ME ASURE OF CARDIAC SAMPL PRESSURE, L H 04/06/2019 [id number] FL UOROSCOPY OF MULT COR ART USING L OSM 04/06/[id number] KOWALSKI OF RIGHT PLEURAL CAVITY, PERCUT 05/04/2019 [id number] CO NTROL BLEEDING IN NOSE SFT TISS, [...] culture - 12/26/16 07:50 Bacterial urine culture [id number] NRG COLONY COUNT >100,000/ML NRG FTX;REPORTABLE SENSITIVITY [...] culture - 02/03/18 15:55 Bacterial urine culture [id number] NRG COLONY COUNT >100,000/ML NRG FTX;REPORTABLE RML [...] culture - 12/08/18 15:30 Bacterial urine culture [id number] NRG COLONY COUNT >100,000/ML NRG FTX;REPORTABLE SUSCEPTIBILITY [...] culture - 02/02/19 14:53 Bacterial urine culture [id number] NRG COLONY COUNT >100,000/ML NRG FTX;REPORTABLE SUSCEPTIBILITY [...] culture - 03/02/19 17:39 Bacterial urine culture [id number] NRG COLONY COUNT 40,000 CFU/ML NRG FTX;REPORTABLE [...] RESULTS NEGATIVE FOR ANTIGEN AND TOXIN A/B [facility] Stool bacteria identification by culture - 03/03/19 11:57 Stool bacteria identification by culture N2 [facility] Blood lactic acid measurement (moles/vol ume) - [...] 05/07/19 11:35 BNP PT 974.4 pg/mL <100.0 [id number] - 05/07/19 11:35 [id number] SPECIMEN AVAILABLE NRG Serum or plasma troponin [...] culture - 05/07/19 14:17 Bacterial urine culture [id number] NRG COLONY COUNT >100,000/ML NRG FTX;REPORTABLE SUSCEPTIBILITY [...] 11:50 Bacteria identification in wound by culture [id number] NRG FREE TEXT EXTERNAL SEE COMMENT [...] by JARAD preparati on - 07/21/19 12:51 JARAD RESULT NEGATIVE; NO FUNGAL ELEMENTS OBSERVED NRG [...] culture - 07/23/19 16:34 Bacterial urine culture [id number] NRG COLONY COUNT >100,000/ML NRG FTX;REPORTABLE SUSCEPTIBILITY [...] culture - 09/23/19 14:59 Bacterial blood culture [facility] [place] Influenza virus A and B antigen detectio n - 09/23/19 15:14 FLU RESULT NEGATIVE FOR INFLUENZA A AND B ANTIGENS BY IA [facility] Bacterial blood culture - 09/23/19 15:15 Bacterial blood culture [facility] [place] Complete urinalysis with reflex to cultu re [...] culture - 09/23/19 16:27 Bacterial urine culture [id number] NRG COLONY COUNT >100,000/ML NRG FTX;REPORTABLE NO SUSCEPTIBILITY PERFORMED NRG FREE TEXT ENTRY 2 PRELIM RAPID ID BY [facility] 09-25-19, 1 138 NRG FREE TEXT ENTRY [...] Status Pt. Type Provider Facility Loc./Unit Complaint [id number] 07/29/2019 12:36:00 12:40:00 DIS Outpatient WIN ROJAS, CRIS Carr [facility] 4TH SWB:UTI [id number] 07/25/2019 13:00:00 12:13:00 DIS Inpatient KIMMY HANSON DO, [facility] 4TH ACUTE DIZZINESS,PROBABL E LABYRINTHITIS [id number] 07/21/2019 12:39:00 23:59:59 CLS Outpatient JOE ROBERTSON MD [facility] LAB SKIN LESSIONS [id number] 07/19/2019 12:40:00 23:59:59 CLS Outpatient LOGAN BOLIVAR APRN [facility] LAB ANEMIA [id number] 07/12/2019 10:56:00 23:59:59 CLS Outpatient JOE ROBERTSON MD [facility] LAB ANEMIA [id number] 07/06/2019 17:03:00 19:45:00 DIS Outpatient JARROD DAVIS [facility] SDC VOLUME DEPLETIO N [id number] 06/23/2019 15:18:00 23:59:59 CLS Outpatient JOE ROBERTSON MD [facility] RAD PNEUMONIA [id number] 06/03/2019 12:28:00 12:00:00 DIS Inpatient CRIS WALDEN MD [facility] 4TH SYNCOPAL EPISODE;PNA;SE PSIS [id number] 06/03/2019 10:00:00 23:59:59 CLS Outpatient ZOLTAN VERMA DO [facility] RAD ABD WALL SEROMA [id number] 06/03/2019 09:08:00 23:59:59 CLS Outpatient JOE ROBERTSON MD [facility] RAD F/U PNEUMONIA [id number] 05/28/2019 13:41:00 17:19:00 DIS Emergency MOIRA HEART MD [facility] ER POST OP DRAININ G IN GROIN [id number] 05/07/2019 14:37:00 15:35:00 DIS Inpatient CRSI WALDEN MD [facility] CSD ELEVATED TROPONIN,GENER AL WEAKNESS,UTI [id number] 05/02/2019 23:00:00 15:40:00 DIS Inpatient ANGEL MCDOWELL MD [facility] CSD HEART FAILURE;HYPOXIA [id number] 04/05/2019 17:24:00 19:30:00 DIS Inpatient CRIS WALDEN MD [facility] ICU AFIB, RVR, HYPOTENSION [id number] 03/17/2019 13:36:00 23:59:59 CLS Preadmit ANTHONY GARZA [facility] RAD SCREENING [id number] 03/17/2019 10:10:00 23:59:59 CLS Outpatient ANTHONY GARZA V [facility] ONC [id number] 03/11/2019 10:36:00 13:25:00 DIS Outpatient LOGAN BOLIVAR APRN [facility] SDC DEHYDRATION [id number] 03/02/2019 17:20:00 13:06:00 DIS Inpatient ANALIA WARD MD [facility] 4TH COLITIS,GASTROENTERITIS ,SHOCK AND SEPSIS,DEHYDRATI [id number] 02/23/2019 12:45:00 23:59:59 CLS Outpatient JOE ROBERTSON MD [facility] RAD COUGH [id number] 02/02/2019 16:50:00 12:40:00 DIS Inpatient ANALIA WARD MD [facility] 4TH DEHYDRATION,ELEVATED TR OPONIN,CKD STAGE IV [id number] 12/31/2018 07:24:00 10:50:00 DIS Outpatient AMADEO BARRETT MD [facility] ENDO DYSPHAGIA [id number] 12/28/2018 05:50:00 23:59:59 CLS Outpatient AMADEO BARRETT MD [facility] PREOP EGD [id number] 12/27/2018 14:17:00 23:59:59 CLS Outpatient DIMPLE NOVOA MD [facility] CARD CAROTID ARTERY STENOSIS,CAD,HYPERTENSION [id number] 12/03/2018 09:52:00 14:18:00 DIS 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 [facility] REHAB GENERAL WEAKNES S [id number] 12/08/2018 15:19:00 019 23:59:59 CLS Outpatient JOE ROBERTSON MD [facility] LAB BURNING IN URINATION [id number] 06/16/2018 06:35:00 018 23:59:59 CLS Outpatient SOMMER ROJAS, DIMPLE Soliman [facility] CATH NON HEALING WOUND,PAD,C AD,HTN [id number] 06/14/2018 12:32:00 018 23:59:59 CLS Outpatient SKIP KERN APRN [facility] RAD CHRONIC KIDNEY DISEASE, STAGE 3 [id number] 04/28/2018 10:02:00 23:59:59 CLS Outpatient NAOMY KINGP [facility] RAD SCREENING [id number] 03/16/2018 16:45:00 018 23:59:59 CLS Preadmit NAOMY KING COMPUTER REPAIRER [facility] RAD SCREENING MAMMOGRAM,XIMENA AST CANCER [id number] 03/16/2018 15:00:00 018 23:59:59 CLS Outpatient ANTHONY GARZA V [facility] ONC [id number] 02/03/2018 15:00:00 018 11:25:00 DIS Inpatient XIAO ROJAS, PRISCILLA Carr [facility] 4TH UTI HYPOTENSION [id number] 01/28/2018 12:48:00 018 23:59:59 CLS Outpatient JARROD DAVIS [facility] RAD LT KNEE PAIN,LT KNEE SWELLING [id number] 01/27/2018 13:15:00 23:59:59 CLS Preadmit VANGIE MOTT MD [facility] ENDO DYSPHAGIA [id number] 01/21/2018 05:39:00 23:59:59 CLS Outpatient VANGIE MOTT MD [facility] PREOP EGD [id number] 12/22/2017 21:23:00 06/06/2 018 13:30:00 DIS Inpatient JOE ROBERTSON MD [facility] 4TH [place] AFIB, ATYPICA L CP R/O ACS, HYPOXIA [id number] 09/23/2017 08:17:00 018 08:35:00 DIS Outpatient DIMPLE NOVOA MD [facility] CATH ABNORMAL BARRY,PVD,CAD [id number] 09/10/2017 13:53:00 018 23:59:59 CLS Outpatient DENIS WEAVER NP-C [facility] RAD N18.3 CHRONIC KIDNEY DI SEASE STAGE 3 [id number] 09/07/2017 14:05:00 018 23:59:59 CLS Preadmit DIMPLE NOVOA MD [facility] CARD I25.10 CAD [id number] 08/13/2017 09:15:00 018 23:59:59 CLS Preadmit ANTHONY GARZA [facility] RAD Z12.31 [id number] 08/09/2017 14:46:00 018 18:00:00 DIS Emergency DARYL PIEDRA APRN [facility] ER DIARRHEA/COLD/FLU SYMPT OMS [id number] 03/12/2017 09:52:00 017 23:59:59 CLS Outpatient ANTHONY GARZA V [facility] ONC [id number] 02/11/2017 07:44:00 017 23:59:59 CLS Outpatient JOE ROBERTSON MD [facility] RAD RT THYROID MASS [id number] 01/27/2017 10:41:00 017 23:59:59 CLS Outpatient JOE ROBERTSON MD [facility] CARD THYROID NODULE [id number] 01/26/2017 15:00:00 017 23:59:59 CLS Preadmit JOE ROBERTSON MD [facility] CARD THYROID NODULE [id number] 01/08/2017 11:10:00 017 23:59:59 CLS Outpatient JOE ROBERTSON MD [facility] CARD THYROID NODULE [id number] 12/26/2016 07:30:00 017 11:45:00 DIS Outpatient DIMPLE NOVOA MD [facility] CATH ABN STRESS TEST,CP, HTN ,HLP,DM [id number] 12/24/2016 10:48:00 017 23:59:59 CLS Outpatient PAULO DIXON [facility] CARD CAD I25.10 [id number] 12/17/2016 12:08:00 017 23:59:59 CLS Outpatient ANUP SULTANA [facility] RAD THYROID NODULE [id number] 08/12/2016 12:12:00 017 23:59:59 CLS Outpatient NAOMY KING [facility] RAD SCREENING [id number] 06/06/2016 12:58:00 016 23:59:59 CLS Outpatient DESTINEE SULTANA DO [facility] RAD THYROID NODULE [id number] 02/20/2016 12:58:00 016 23:59:59 CLS Outpatient NAOMY KING [facility] ONC [id number] 02/01/2016 08:32:00 016 23:59:59 CLS Outpatient DIMPLE NOVOA MD [facility] RAD CAROTID STENOSIS,DIZZIN ESS [id number] 01/04/2016 11:01:00 016 23:59:59 CLS Outpatient DIMPLE NOVOA MD [facility] RAD CAROTID STENOSIS [id number] 12/05/2015 14:52:00 016 17:54:00 DIS Inpatient JOE ROBERTSON MD [facility] 4TH JARA,VERTIGO,URINARY TRA CT INFECTION [id number] 11/22/2015 08:50:00 12:00:00 DIS Outpatient JOE ROBERTSON MD [facility] WOUNDCARE [id number] 11/14/2015 07:23:00 23:59:59 CLS Outpatient CIERA ROJAS, DESTINEE Soliman [facility] CARD CAD [id number] 10/23/2015 08:46:00 23:59:59 CLS Outpatient JOE ROBERTSON MD [facility] RAD DIABETIC FOOT ULCER [id number] 10/05/2015 10:00:00 09:44:00 DIS Inpatient JOE ROBERTSON MD [facility] 4TH NAUSEA,VOMITING,DIAHERR A,BLOODY STOOL [id number] 10/03/2015 10:31:00 23:59:59 CLS Outpatient JOE ROBERTSON MD [facility] RAD SOB [id number] 09/25/2015 12:38:00 23:59:59 CLS Outpatient NAFISA CHRIS MD [facility] RAD MULTI NODULUAR GOITER [id number] 07/16/2015 16:14:00 23:59:59 CLS Outpatient JOE ROBERTSON MD [facility] LAB CDIFF, DIARHHEA [id number] 06/27/2015 06:32:00 23:59:59 CLS Outpatient JOE ROBERTSON MD [facility] LAB DIARRHEA [id number] 05/28/2015 21:30:00 23:59:59 CLS Outpatient JOE ROBERTSON MD [facility] LAB DIARRHEA [id number] 05/10/2015 20:05:00 21:32:00 DIS Emergency DENIS HAIDER DO [facility] ER L SIDE FACIAL DROOPING [id number] 05/10/2015 12:00:00 13:31:00 DIS Emergency ANGEL MCDOWELL MD [facility] ER FACIAL DROOPING/LEFT HUERTA ND NUMB [id number] 2015 13:56:00 23:59:59 CLS Outpatient ANUP SULTANA [facility] RAD DIFFICULTY SWAL LOWING THYROIDMEGALLY [id number] 02/19/2015 12:28:00 015 23:59:59 CLS Outpatient ANTHONY GARZA V l[facility] ONC [id number] 12/25/2014 16:05:00 015 14:46:00 DIS Inpatient SOMMER ROJAS, DIMPLE Soliman [facility] CSD [id number] 08/31/2014 09:11:00 015 23:59:59 CLS Outpatient NAOMY KING COMPUTER REPAIRER [facility] RAD [id number] 08/30/2014 13:10:00 23:59:59 CLS Outpatient JOE ROBERTSON MD [facility] LAB [id number] 08/21/2014 12:52:00 015 23:59:59 CLS Outpatient NAOMY KING COMPUTER REPAIRER [facility] ONC [id number] 08/08/2014 12:54:00 015 23:59:59 CLS Outpatient ANTHONY GARZA V [facility] RAD [id number] 01/30/2014 13:02:00 014 23:59:59 CLS Outpatient [id number] 11/09/2013 13:56:00 014 23:59:59 CLS Outpatient NAOMY KING COMPUTER REPAIRER [facility] ONC [id number] 10/15/2013 18:23:00 014 20:38:00 DIS Emergency [id number] 07/25/2013 12:48:00 014 23:59:59 CLS Outpatient NAOMY KING COMPUTER REPAIRER [facility] RAD BREAST CA, ABN SONO [id number] 05/12/2013 14:47:00 23:59:59 CLS Outpatient [id number] 04/28/2013 15:16:00 23:59:59 CLS Outpatient [id number] 12/10/2012 10:57:00 00:01:00 DIS Outpatient [id number] 01/17/2013 12:08:00 23:59:59 CLS Outpatient [id number] 12/27/2012 12:00:00 23:59:59 CLS Outpatient [id number] 09/23/2019 17:06:[address] Inpatient WIN ROJAS, CRIS Carr [facility] 4TH UTI,WEAKNESS [id number] 09/26/2015 00:00:00 Document Registration [id number] 08/10/2015 13:28:00 Document Registration [id number] 12/25/2014 17:28:00 Document Registration
[2019-09-27] MEDS: SERTRALINE 50 MG (ZOLOFT) TABLET PO SCH (21:21)
[2019-09-27] MEDS: ROSUVASTATIN 20 MG (CRESTOR) TABLET PO SCH (21:21)
[2019-09-28 00:40] VITALS: BP 130/78
[2019-09-28] MEDS: MIDODRINE 10 MG (PROAMATINE) TAB PO SCH ×2 (06:13→19:02)
[2019-09-28] MEDS: inSUlin ASPART (NovoLOG) 1 UNIT/0.01 ML (CHARGE PER UNIT) SC SCH ×3 (06:16→20:56)
[2019-09-28 08:00] VITALS: BP 137/68
[2019-09-28] MEDS: PANTOPRAZOLE 40 MG (PROTONIX) TAB PO SCH (08:42)
[2019-09-28] MEDS: TORSEMIDE 20 MG (DEMADEX) TAB PO SCH (08:42)
[2019-09-28] MEDS: CLOPIDOGREL 75 MG (PLAVIX) TABLET PO SCH (08:42)
[2019-09-28] MEDS: APIXABAN 2.5 MG (ELIQUIS) TABLET PO SCH ×2 (08:42→21:29)
[2019-09-28] MEDS: ALLOPURINOL 100 MG (ZYLOPRIM) TAB PO SCH (08:42)
--- NOTE | 2019-09-28 10:24 | Occupational Ther Daily Note ---
OT Current Status-Daily Note Subjective Pt alert, sitting in recliner. Pt agrees to therapy. No c/o pain. Pt did c/o that feet were moving on their own. Mental Status/Objective Patient Orientation: Place, Time, Situation Attachments: Mendez Catheter, IV ADL-Treatment Therapy Code Descriptions/Definitions Functional [place] Measure: 0=Not Assessed/NA 4=Minimal Assistance 1=Total Assistance 5=Supervision or Setup 2=Maximal Assistance 6=Modified [place] 3=Moderate Assistance 7=Complete IndependenceSCALE: Activities may be completed with or without assistive devices. 5-Ufavuxxjsg-sswdkrc completes the activity by him/herself with no assistance from a helper. 5-Set-up or Clean-up Assistance-helper sets up or cleans up; patient completes activity. [place] assists only prior to or following the activity. 4-Supervision or Touching Assistance-helper provides verbal cues and/or touching/steadying and/or contact guard assistance as patient completes activity. Assistance may be provided throughout the activity or intermittently. 3-Partial/Moderate Assistance-helper does LESS THAN HALF the effort. [place] lifts, holds or supports trunk or limbs, but provides less than half the effort. 2-Substantial/Maximal Assistance-helper does MORE THAN HALF the effort. [place] lifts or holds trunk or limbs and provides more than half the effort. 4-Czcadglxf-kglvqx does ALL the effort. Patient does none of the effort to complete the activity. Or, the assistance of 2 or more helpers is required for the patient to complete the activity. If activity was not attempted, code reason: 7-Patient Refused. 9-Not Applicable-not attempted and the patient did not perform the activity before the current illness, exacerbation or injury. 10-Not Attempted due to Environmental Limitations-(lack of equipment, weather restraints, etc.). 88-Not Attempted due to Medical Conditions or Safety Concerns. Other Treatment Pt was sitting in recliner at the beginning of therapy. Pt declined both sponge bath and oral care. Pt agreed to UE strengthening using light resistance theraband to work on increasing strengthening and activity tolerance for daily function task. Pt requires verbal cues and physical cues for correct technique and positioning. Pt completed 4 UE exercises 2 set 10 reps. Pt was sitting in recliner with call light and phone in reach after therapy session. Education OT Patient Education: Exercise program Teaching Recipient: Patient Teaching Methods: Demonstration, Discussion Response to Teaching: Verbalize Understanding, Return Demonstration, Reinforcement Needed OT Spotter Goals Half-Way Goals Time Frame: Oct 01, 2019 Eating (QC): 5 Oral Hygiene (QC): 5 Toileting Hygiene (QC): 4 Additional Goals: 2-Verbalize Understanding, 3-ImproveStrength/Sammie 1=Demonstrate adherence to instructed precautions during ADL tasks. 2=Patient will verbalize/demonstrate understanding of assistive devices/modifications for ADL. 3=Patient will improve strength/tolerance for activity to enable patient to perform ADL's. OT Education/Plan Problem List/Assessment Assessment: Decreased Activ Tolerance, Decreased UE Strength, Impaired Funct Balance, Impaired Self-Care Skills Discharge Recommendations Plan/Recommendations: Continue POC Treatment Plan/Plan of Care Patient would benefit from OT for education, treatment and training to promote independence in ADL's, mobility, safety and/or upper extremity function for ADL's. Plan of Care: ADL Retraining, Functional Mobility, UE Funct Exercise/Act Treatment Duration: Oct 01, 2019 Frequency: 5 times per week Estimated Hrs Per Day: .25 hour per day Rehab Potential: Fair Time/GCodes Start Time: 09:55 Stop Time: 10:15 Total Time Billed (hr/min): 20 Billed Treatment Time 1 visit-EX 1 (20 min) KEMAR DEAN Sep 28, 2019 10:24
--- NOTE | 2019-09-28 10:57 | Physical Therapy Daily Note ---
PT Daily Note-Current Subjective Pt agreeable to PT session. Pain Numeric Pain Scale: 0-No Pain Appearance Pt in bed upon arrival, requesting to sit on BSC. HEALTH AND FITNESS INSTRUCTOR present to assist. At end of session, pt sitting up in recliner with call light, phone and bedside table within reach. Mental Status Patient Orientation: Person, Place, Time, Eyes Open, Situation Attachments: [place] Lock, Mendez Catheter Transfers SCALE: Activities may be completed with or without assistive devices. 1-Tvgstfjtpt-jqvlhlj completes the activity by him/herself with no assistance from a helper. 5-Set-up or Clean-up Assistance-helper sets up or cleans up; patient completes activity. [place] assists only prior to or following the activity. 4-Supervision or Touching Assistance-helper provides verbal cues and/or touching/steadying and/or contact guard assistance as patient completes activity. Assistance may be provided throughout the activity or intermittently. 3-Partial/Moderate Assistance-helper does LESS THAN HALF the effort. [place] lifts, holds or supports trunk or limbs, but provides less than half the effort. 2-Substantial/Maximal Assistance-helper does MORE THAN HALF the effort. [place] lifts or holds trunk or limbs and provides more than half the effort. 6-Krgllrbsr-yxrgxl does ALL the effort. Patient does none of the effort to complete the activity. Or, the assistance of 2 or more helpers is required for the patient to complete the activity. If activity was not attempted, code reason: 7-Patient Refused. 9-Not Applicable-not attempted and the patient did not perform the activity bef ore the current illness, exacerbation or injury. 10-Not Attempted due to Environmental Limitations-(lack of equipment, weather r estraints, etc.). 88-Not Attempted due to Medical Conditions or Safety Concerns. Roll Left & Right (QC): 3 Lying to Sitting/Side of Bed(Q: 2 Sit to Stand (QC): 3 (sit to stand from elevated EOB CGA, sit to stand from BSC requiring min to mod A) Chair/Lwq-zf-Dqscr Xfer(QC): 3 (min A with stand pivot transfers between bed and BSC then BSC to recliner) physical assist and skilled verb inst required for technique, safety and performance Weight Bearing Right Lower Extremity: Right Weight Bearing/Tolerated Left Lower Extremity: Left Weight Bearing/Tolerated Treatments education, safety, bed mobility, transfers, toileting, carlos care, activity tolerance, functional mobility Assessment Current Status: Fair Progress Pt continues to require physical assist and verb inst to complete bed mobility and transfers PT Jail Goals Jail Goals PT Division Supervisor Goals Time Frame: Oct 01, 2019 Roll Left & Right (QC): 5 Sit to Lying (QC): 5 Lying-Sitting on Side/Bed(QC): 5 Sit to Stand (QC): 5 Chair/Sxr-bc-Stzyn Xfer(QC): 5 Toilet Transfer (QC): 5 Does the Patient Walk: Yes Walk 10 feet (QC): 4 Walk 50ft with 2 Turns (QC): 4 Walk 150 ft (QC): 9 PT Plan Treatment/Plan Treatment Plan: Continue Plan of Care Treatment Plan: Bed Mobility, Education, Functional Activity Sammie, Functional Strength, Gait, Safety, Therapeutic Exercise, Transfers Treatment Duration: Oct 01, 2019 Frequency: 5 times per week Estimated Hrs Per Day: .25 hour per day Patient and/or Family Agrees t: Yes Safety Risks/Education Patient Education: Transfer Techniques, Safety Issues Teaching Recipient: Patient Teaching Methods: Demonstration, Discussion Response to Teaching: Verbalize Understanding, Return Demonstration, Reinforcement Needed Time/GCodes Time In: 857 Time Out: 925 Total Billed Treatment Time: 28 Total Billed Treatment 1 visit, FA x2 units SHAYNE FLORES PTA Sep 28, 2019 10:57
[2019-09-28] MEDS: cefTRIAXone FOR IV USE 1,000 MG in WATER (STERILE) FOR INJECTION 10 ML IV SCH (13:11)
[2019-09-28] MEDS: VANCOMYCIN 50 MG/ML ORAL SOLN 150 ML PO SCH ×2 (13:12→19:02)
--- NOTE | 2019-09-28 14:11 | Progress Note - Hospitalist ---
Subjective HPI/CC On Admission Date Seen by Provider: Sep 28, 2019 Time Seen by Provider: 14:04 Shamika Cain is an 79-year-old female well-known to the hospitalist service who presented with confusion and weakness. Her daughter reports that she had been having issues with this over the days leading up to her hospitalization. She had reportedly been eating less and drinking less. She had also been having higher blood sugars the usual. She also said that her urine had looked concentrated and dark. She denies any fevers or chills. She denies any chest pain or shortness of breath. She denies any abdominal pain, nausea, or vomiting. Subjective/Events-last exam Pt reports feeling well. No complaints. Still very weak. Pt declined SNF and IRU. Objective Exam Vital Signs Vital Signs Date Time Temp Pulse Resp B/P (MAP) Pulse Ox O2 Delivery O2 Flow Rate FiO2 09/28/19 08:00 Room Air 09/28/19 08:00 37.0 65 20 137/68 (91) 97 Capillary Refill : Less Than 3 SecondsLess Than 3 Seconds General Appearance: No Apparent Distress, Chronically ill Respiratory: Lungs Clear, No Respiratory Distress Cardiovascular: Regular Rate, Rhythm, No Murmur Gastrointestinal: Normal Bowel Sounds, Soft Neurologic/Psychiatric: Alert, Oriented x3 Results/Procedures Lab Patient resulted labs reviewed. Imaging: Reviewed Imaging Report Assessment/Plan Assessment and Plan Assess & Plan/Chief Complaint Urinary tract infection History of ESBL UA consistent with urinary tract infection Urine culture growing klebsiella Switch to Rocephin per sensitivities C diff Diarrhea - C diff testing sent, indeterminant at this time - oral vanc Chronic kidney disease Creatinine improved, trend Foot pain Pain regimen ordered DAILY ge for edema - Continue allopurinol Type II diabetes mellitus Sliding scale insulin Chronic atrial fibrillation PAD s/p TAVR for aortic stenosis Continue Eliquis, metoprolol, Plavix Debility - PT/OT - Safest discharge plan is to a SNF for rehab. She refused this. Explored IRU but patient also declines. Informed of need for as much supervised care as possible and my concern regarding a safe discharge plan to home. She will work on getting 24/7 care arranged. I spoke to granddaughter who is DPOA and agrees that SNF is best discharge option. Granddaughter will try to talk to patient about that plan. Will be medically ready for DC tomorrow. DVT prophylaxis: Already receiving therapeutic anticoagulation Lactic acidosis, resolved Clinical Quality Measures DVT/VTE Risk/Contraindication: Risk Factor Score Per Nursin RFS Level Per Nursing on Admit: 3=High ANALIA WARD MD Sep 28, 2019 14:11
--- NOTE | 2019-09-28 15:37 | NUR ---
Mendez removed per MD order
--- NOTE | 2019-09-28 16:00 | NUR ---
CM/SS: Visited with pt as to plan for discharge Plan: Pt will return home with home care services, and [facility] will re-assess the patient level of function for possible increase of home community based service hours Summary: Pt has refused to go to a chcf and declining to go to inpatient rehab. Pt reports she want to go home and is open to having home care. Pt is given the choice list and reports she had [facility] in the past and it ok with using them again. Referral made to [facility]. Information faxed and phone call made to confirm they have received the referral. Pt will discharge on tomorrow.
[2019-09-28 16:22] VITALS: BP 139/62
--- NOTE | 2019-09-28 17:53 | NUR ---
family here at this time and informed this RN that patient agreed to 7 days of SNF/ ARU rehab. doctor Alexandra notified
--- NOTE | 2019-09-28 20:56 | NUR ---
PT WILL CONTINUE TO BE ON HER INSULIN PUMP PER SYLVIA.
[2019-09-28] MEDS: ROSUVASTATIN 20 MG (CRESTOR) TABLET PO SCH (21:29)
[2019-09-28] MEDS: SERTRALINE 50 MG (ZOLOFT) TABLET PO SCH (21:29)
[2019-09-29 00:12] VITALS: BP 154/77
[2019-09-29] MEDS: VANCOMYCIN 50 MG/ML ORAL SOLN 150 ML PO SCH (01:42)
[2019-09-29] MEDS ORDERED: VANCOMYCIN 50 MG/ML ORAL SOLN 150 ML PO SCH ×2 (06:00→08:00)
[2019-09-29 07:53] VITALS: BP 136/74
[2019-09-29] MEDS: TORSEMIDE 20 MG (DEMADEX) TAB PO SCH (08:17)
[2019-09-29] MEDS: MIDODRINE 10 MG (PROAMATINE) TAB PO SCH (08:18)
[2019-09-29] MEDS: PANTOPRAZOLE 40 MG (PROTONIX) TAB PO SCH (08:18)
[2019-09-29] MEDS: APIXABAN 2.5 MG (ELIQUIS) TABLET PO SCH (08:18)
[2019-09-29] MEDS: CLOPIDOGREL 75 MG (PLAVIX) TABLET PO SCH (08:18)
[2019-09-29] MEDS: ALLOPURINOL 100 MG (ZYLOPRIM) TAB PO SCH (08:19)
--- NOTE | 2019-09-29 08:51 | Occupational Ther Daily Note ---
OT Current Status-Daily Note Subjective Pt seen laying supine in bed. Pt expresses mild pain in bilateral feet, states medication assisted in pain. Pt was readily agreeable to tx session. Pt expressed she was not agreeable to transfer to "rest home." Mental Status/Objective Patient Orientation: Person, Place, Time, Situation ADL-Treatment Therapy Code Descriptions/Definitions Functional [place] Measure: 0=Not Assessed/NA 4=Minimal Assistance 1=Total Assistance 5=Supervision or Setup 2=Maximal Assistance 6=Modified [place] 3=Moderate Assistance 7=Complete IndependenceSCALE: Activities may be completed with or without assistive devices. 0-Cdkjarecgq-fhoueat completes the activity by him/herself with no assistance from a helper. 5-Set-up or Clean-up Assistance-helper sets up or cleans up; patient completes activity. [place] assists only prior to or following the activity. 4-Supervision or Touching Assistance-helper provides verbal cues and/or touc yamileth/steadying and/or contact guard assistance as patient completes activity. Assistance may be provided throughout the activity or intermittently. 3-Partial/Moderate Assistance-helper does LESS THAN HALF the effort. [place] lifts, holds or supports trunk or limbs, but provides less than half the effort. 2-Substantial/Maximal Assistance-helper does MORE THAN HALF the effort. [place] lifts or holds trunk or limbs and provides more than half the effort. 6-Owznsykax-yvttjm does ALL the effort. Patient does none of the effort to complete the activity. Or, the assistance of 2 or more helpers is required for the patient to complete the activity. If activity was not attempted, code reason: 7-Patient Refused. 9-Not Applicable-not attempted and the patient did not perform the activity before the current illness, exacerbation or injury. 10-Not Attempted due to Environmental Limitations-(lack of equipment, weather restraints, etc.). 88-Not Attempted due to Medical Conditions or Safety Concerns. Eating (QC): 6 On/Off Footwear: 2 Toileting Hygiene (QC): 1 Toilet Transfer (QC): 1 (max x2) Other Treatment Pt readily agrees to OOB activity. Pt expresses she does not desire to go to "rest home," and would like to go to 2nd floor rehab- pt educated on amount of endurance/ strength needed to participate in 3 hour/ ARU expectations, role of SNF to increase ADL function and endurance for higher level of function. Pt nods in understanding, asks multiple questions. Pt bed mob with max A (required A with L LE and reaching EOB). Sit to stand with 2WW with mod A x2, toilet transfer to [facility] with max A x2 and cues to reduce retropulsion (pt unable to understand to lean forward rather than back). Pt initiates and expresses desire to complete theraband ex while seated on commode- pt completes 3 reps of 5 theraband ex. Pt expresses desire for shoes when up, Max A for shoe/ sock donning. Sit to stand max Ax1; TD for bottom hygiene ([place] cream applied to bottom); ambulates with 2WW with max A to sit recliner chair. All needs met, call light in reach, feet elevated. Education OT Patient Education: Correct positioning, Exercise program, Home exercise program, Rehab process, Transfer techniques Teaching Recipient: Patient Teaching Methods: Demonstration, Discussion Response to Teaching: Verbalize Understanding, Return Demonstration, Reinforcement Needed OT Custodial Goals Custodial Goals Time Frame: Oct 01, 2019 Eating (QC): 5 Oral Hygiene (QC): 5 Toileting Hygiene (QC): 4 Additional Goals: 2-Verbalize Understanding, 3-ImproveStrength/Sammie 1=Demonstrate adherence to instructed precautions during ADL tasks. 2=Patient will verbalize/demonstrate understanding of assistive devices/modifications for ADL. 3=Patient will improve strength/tolerance for activity to enable patient to perform ADL's. OT Education/Plan Problem List/Assessment Assessment: Decreased Activ Tolerance, Decreased Safety Aware, Decreased UE Strength, Dependent Transfers, Impaired Bed Mobility, Impaired Funct Balance, Impaired I ADL's, Impaired Self-Care Skills Discharge Recommendations Plan/Recommendations: Continue POC Therapy Discharge Recommendati: 24 Hour Supervision, Post Acute OT Treatment Plan/Plan of Care Treatment,Training & Education: Yes Patient would benefit from OT for education, treatment and training to promote independence in ADL's, mobility, safety and/or upper extremity function for ADL's. Plan of Care: ADL Retraining, Functional Mobility, UE Funct Exercise/Act Treatment Duration: Oct 01, 2019 Frequency: 5 times per week Estimated Hrs Per Day: .25 hour per day Rehab Potential: Fair Time/GCodes Start Time: 08:06 Stop Time: 08:37 Total Time Billed (hr/min): 31 Billed Treatment Time 1, ADL 2 (31) QUANG KING OTR Sep 29, 2019 08:51
[2019-09-29] MEDS: inSUlin ASPART (NovoLOG) 1 UNIT/0.01 ML (CHARGE PER UNIT) SC SCH (10:00)
--- NOTE | 2019-09-29 10:30 | NUR ---
IRF Evaluation Order received to re-evaluate patient for the ARU. Chart review complete and findings discussed with Dr. Blake - patient accepted. Met with patient to discuss details or rehabilitation program. Patient agreeable to required therapy regimen and admission. Thank you for this referral.
--- NOTE | 2019-09-29 10:46 | Discharge Summary ---
Diagnosis/Chief Complaint Date of Admission Sep 23, 2019 at 17:06 Date of Discharge Discharge Date: Sep 28, 2019 Admission Diagnosis Urinary tract infection Primary Care Rashaun Gonzales MD Discharge Diagnosis (1) UTI (urinary tract infection) Status: Acute (2) History of ESBL E. coli infection Status: Chronic (3) Lactic acidosis Status: Resolved (4) CKD (chronic kidney disease) Status: Chronic Discharge Summary Discharge Physical Exam Allergies: Coded Allergies: sulfamethoxazole (Verified Allergy, Intermediate, 10/05/15) tramadol (Verified Allergy, Intermediate, 10/05/15) trimethoprim (Verified Allergy, Intermediate, 10/05/15) Penicillins (Verified Allergy, Unknown, 10/05/15) codeine (Verified Allergy, Unknown, CAN TAKE MORPHINE, 10/05/15) hydrocodone (Verified Allergy, Unknown, 10/05/15) morphine (Verified Adverse Reaction, Intermediate, Nausea, 06/03/19) amiodarone (Verified Adverse Reaction, Mild, NAUSEA, dizziness, 02/01/16) Vitals & I&Os Vital Signs Date Time Temp Pulse Resp B/P (MAP) Pulse Ox O2 Delivery O2 Flow Rate FiO2 09/29/19 08:00 96 Room Air 09/29/19 07:53 36.4 68 16 136/74 (94) Hospital Course Labs (last 24 hrs) Laboratory Tests 09/28/19 14:59: Glucometer 244H 09/28/19 19:28: Glucometer 213H 09/29/19 09:35: Glucometer 87 Microbiology 09/27/19 C. difficile DNA Amplification, Resulted Pending 09/27/19 C. difficile GDH Antigen & Toxins - Final, Resulted 09/23/19 Urine Culture - Final, Complete Klebsiella pneumoniae Klebsiella oxytoca Strep anginosus 09/23/19 Blood Culture - Preliminary, Resulted No growth 09/23/19 Influenza Types A,B Antigen (CHERRY) - Final, Complete Patient resulted labs reviewed. Pending Labs Laboratory Tests 09/29/19 09:35: Glucometer 87 Imaging: Reviewed Imaging Report Discharge Home Medications: Active Scripts Active Reported Sertraline HCl 25 Mg Tablet 25 Mg PO HS Ferrous Sulfate 325 Mg Tablet 325 Mg PO BID Diazepam 5 Mg Tablet 5 Mg PO DAILY PRN Vitamin D3 (Cholecalciferol (Vitamin D3)) 25 Mcg Capsule 25 Mcg PO 1200 Benadryl Allergy (Diphenhydramine HCl) 25 Mg Tablet 25 Mg PO Q6H PRN Hydroxyzine HCl 25 Mg Tablet 25-50 Mg PO HS PRN Metoprolol Succinate 25 Mg Tab.er.24h 12.5 Mg PO DAILY TAKES 1/2 (25MG) TABLET Torsemide 100 Mg Tablet 50 Mg PO DAILY TAKES 1/2 (100MG) TABLET Eliquis (Apixaban) 5 Mg Tablet 2.5 Mg PO BID TAKES 1/2 (5MG) TABLET Zofran (Ondansetron HCl) 4 Mg Tab 4 Mg PO Q6H PRN Colace (Docusate Sodium) 100 Mg Capsule 100 Mg PO HS Pantoprazole Sodium 40 Mg Tablet.dr 40 Mg PO DAILY Potassium Chloride 20 Meq Tablet.er 20 Meq PO 0700,1200 Acetaminophen 325 Mg Tablet 650 Mg PO Q4H PRN Vitamin B-12 (Cyanocobalamin (Vitamin B-12)) 500 Mcg Tablet 1,000 Mcg PO 1200 Midodrine HCl 10 Mg Tablet 10 Mg PO BID Allopurinol 100 Mg Tablet 100 Mg PO DAILY Premarin (Estrogens Conjugated) 30 Gm Cr VG MOWEFR Rosuvastatin Calcium 20 Mg Tablet 20 Mg PO HS Victoza 2-Luis Enrique (Liraglutide) 0.6 Mg/0.1 Ml Pen.injctr 1.2 Mg SC HS Clopidogrel (Clopidogrel Bisulfate) 75 Mg Tablet 75 Mg PO DAILY Novolog (Insulin Aspart) 100 Unit/1 Ml Susp PER INSULIN PUMP MDD 110 UNITS PER DAY Instructions to patient/family Please see electronic discharge instructions given to patient. Clinical Quality Measures DVT/VTE Risk/Contraindication: Risk Factor Score Per Nursin RFS Level Per Nursing on Admit: 3=High Problem Qualifiers (1) UTI (urinary tract infection): Urinary tract infection type: acute cystitis Hematuria presence: without he maturia Qualified Codes: N30.00 - Acute cystitis without hematuria ANALIA WARD MD Sep 29, 2019 10:46
--- NOTE | 2019-09-29 11:34 | NUR ---
Report called to GALINA Puentes on ARU at this time. Therapy here to transport patient to 2nd floor.
--- NOTE | 2019-09-29 14:49 | NUR ---
CM/SS: Pt will be going to Inpatient Rehab here at [facility] Plan: Pt will be going to Inpatient Rehab here at [facility] today Summary: Deloris Wheat, - Senior Analytical Chemist for [facility] - notified that pt will go to impatient rehab. Deloris will make contact with pt on next week and determine if her hours will be increased for help in the home.
== END 2019-09-29 11:37 | DRG 690 ==
LOC: EDUNIT# 14:48 → ER 14:49 → 4TH 17:06
PROVIDERS: ADMIT Internal Medicine; ATTEND Internal Medicine
DX: N39.0 Urinary tract infection, site not specified (principal); E87.2 Acidosis; I48.20 Chronic atrial fibrillation, unspecified; I13.0 Hypertensive heart and chronic kidney disease with heart failure and stage 1 through stage 4 chronic kidney disease, or unspecified chronic kidney disease; N18.9 Chronic kidney disease, unspecified; I50.9 Heart failure, unspecified; I25.10 Atherosclerotic heart disease of native coronary artery without angina pectoris; I25.2 Old myocardial infarction; E11.40 Type 2 diabetes mellitus with diabetic neuropathy, unspecified; E11.51 Type 2 diabetes mellitus with diabetic peripheral angiopathy without gangrene; R63.0 Anorexia; E78.00 Pure hypercholesterolemia, unspecified; R01.1 Cardiac murmur, unspecified; G60.0 Hereditary motor and sensory neuropathy; G47.30 Sleep apnea, unspecified; K58.9 Irritable bowel syndrome, unspecified; E66.9 Obesity, unspecified; Z95.0 Presence of cardiac pacemaker; Z95.5 Presence of coronary angioplasty implant and graft; R53.81 Other malaise; Z95.2 Presence of prosthetic heart valve; Z79.4 Long term (current) use of insulin; Z86.73 Personal history of transient ischemic attack (TIA), and cerebral infarction without residual deficits; Z68.33 Body mass index [BMI] 33.0-33.9, adult; Z85.3 Personal history of malignant neoplasm of breast; Z92.3 Personal history of irradiation
CPT/HCPCS: 36415; 51701; 71045; 72170; 80048; 80053; 81000; 82962; 83605; 84443; 84484; 85025; 85027; 85610; 85730; 87040; 87077; 87088; 87186; 87324; 87449; 87493; 87804; 93005

== ENCOUNTER 2019-09-29 10:55 | Inpatient (IN) | payer MEDICARE, MEDICAID ==
[~2019-09-29] VITALS: Ht 167.7 cm; Wt 97.0 kg
[~2019-09-29 10:55] MED LIST changes: +CHOL100048 PO; +FERR325T18 PO; +SERT25TA5 PO
[2019-09-29] MEDS ORDERED: DOCUSATE SODIUM 100 MG (COLACE) CAP PO PRN (11:15)
[2019-09-29] MEDS ORDERED: ENOXAPARIN 40 MG/0.4 ML (LOVENOX) SYR SC SCH (11:15)
[2019-09-29] MEDS ORDERED: LACTULOSE SYRUP 10GM/15ML (ENULOSE) 30ML UDC PO PRN (11:15)
[2019-09-29] MEDS ORDERED: BISACODYL 10 MG SUPP (DULCOLAX) PR PRN ×2 (11:15→14:00)
[2019-09-29] MEDS ORDERED: ONDANSETRON 4 MG (ZOFRAN) ORAL DISSOLVE TAB PO PRN ×2 (11:15→14:00)
[2019-09-29] MEDS ORDERED: MELATONIN 3 MG TABLET PO PRN (11:15)
[2019-09-29] MEDS ORDERED: FLEET ENEMA ADULT 1 EA BTL PR PRN (11:15)
[2019-09-29] MEDS ORDERED: CALCIUM CARBONATE 500 MG (TUMS) TAB.CHEW PO PRN (11:15)
[2019-09-29] MEDS ORDERED: diphenhydrAMINE 25 MG TAB (BENADRYL) PO PRN ×2 (11:15→14:00)
[2019-09-29] MEDS ORDERED: ALPRAZolam 0.25 MG (XANAX) TAB PO PRN (11:15)
--- NOTE | 2019-09-29 11:30 | NUR ---
SARAHY SUHRICIA Olaf admitted to room 225-1, with an admitting diagnosis of debility, on 09/29/19 from [facility] floor, accompanied by staff. [facility] introduced to surroundings, call light, bed controls, phone, TV, temperature control, lights, meal times, smoking policy, visitor policy, side rail policy, bathrooms and showers. Patient Rights given to patient in the handbook. [facility] verbalizes understanding that [facility] is not responsible for the loss or damage to any personal effects or valuables that are kept in the patients posession during their hospitalization. The following Patient Care Plans were discussed with the patient: Discharge Planning, Falls,activity intolerance, and impaired mobility. [facility] verbalizes understanding of Interdisciplinary Patient Education. Patient and/or family were informed about the Rapid Response Team and its purpose. Patient received Patient Rights Booklet, which includes Privacy Act Statement and Data Collection Information Summary.
--- NOTE | 2019-09-29 12:03 | NUR ---
PT WAS PREVIOUSLY ON 4TH FLOOR AND I HAD COMPLETED HER MED REC AT THAT TIME. GOING THRU THE DISCHARGE ORDERS NO MEDS HAD BEEN CHANGED OR DISCONTINUED AND NO NEW MEDS WERE STARTED. ALL MEDS CONTINUED FOR IRF USE NO NEED TO INTERVIEW THE PT AT A LATER DATE SINCE THERE WERE NO CHANGES
--- NOTE | 2019-09-29 12:40 | Physical Therapy Evaluation ---
PT Evaluation-General Medical Diagnosis Admission Date Sep 29, 2019 at 11:30 Medical Diagnosis: UTI, weakness Onset Date: Sep 23, 2019 Therapy Diagnosis Therapy Diagnosis: impaired mobility, strength, endurance, balance Height/Weight Height (Feet): 5 Height (Inches): 6.00 Weight (Pounds): 223 Weight (Ounces): 0.5 Referral Physician: Lynne Blake DO Reason for Referral: Evaluation/Treatment Medical History Pertinent Medical History: Atrial Fib, CAD, DM, Heart Failure, HTN, [place], Neuropathy Reviewed History: Yes Social History Home: [facility] Current Living Status: Other Family Entry Into Home: Ramp Prior Prior Level of Function SCALE: Activities may be completed with or without assistive devices. 2-Jvuazdtlxh-cujzrvr completes the activity by him/herself with no assistance from a helper. 5-Set-up or Clean-up Assistance-helper sets up or cleans up; patient completes activity. [place] assists only prior to or following the activity. 4-Supervision or Touching Assistance-helper provides verbal cues and/or touching/steadying and/or contact guard assistance as patient completes activity. Assistance may be provided throughout the activity or intermittently. 3-Partial/Moderate Assistance-helper does LESS THAN HALF the effort. [place] lifts, holds or supports trunk or limbs, but provides less than half the effort. 2-Substantial/Maximal Assistance-helper does MORE THAN HALF the effort. [place] lifts or holds trunk or limbs and provides more than half the effort. 6-Ypyaxdvpb-gbjzqw does ALL the effort. Patient does none of the effort to complete the activity. Or, the assistance of 2 or more helpers is required for the patient to complete the activity. If activity was not attempted, code reason: 7-Patient Refused. 9-Not Applicable-not attempted and the patient did not perform the activity before the current illness, exacerbation or injury. 10-Not Attempted due to Environmental Limitations-(lack of equipment, weather restraints, etc.). 88-Not Attempted due to Medical Conditions or Safety Concerns. Bed Mobility: 4 Transfers (B,C,W/C): 4 Gait: 4 Indoor Mobility (Ambulation): Needed Some Help Prior Devices Use: Manual wheelchair, Walker PT Evaluation-Current Subjective Patient in bed pre tx, agrees to PT, has 3/10 pain in feet from neuropathy. Will be co-treating with OT for part of treatment this morning due to poor patient mobility, strength, endurance, the need to coordinate UE and LE during activity, need to assist patient with balance during standing activity. Pt/Family Goals to be independent at home Objective Patient Orientation: Person, Place, Situation Attachments: Mendez Catheter ROM/Strength ROM Lower Extremities WNL Strength Lower Extremities 4/5 gross BLE except for dorsi/plant which was 2/5 bilaterally Sensory Hearing: Functional Sensation Right Lower Extremit: Impaired Sensation Left Lower Extremity: Impaired Transfers Roll Left to Right (QC): 2 Sit to Lying (QC): 2 Lying to Sitting/Side of Bed(Q: 2 Sit to Stand (QC): 2 Chair/Nhk-uk-Fbekb Xfer(QC): 3 Car Transfer (QC): 88 Patient performs bed mobility with max assist, supine <-> sit max assist, sit <- > stand max assist, transfers mod assist. Patient needs cues for hand placement and positioning, has a tendency to sit before turning completely, and is retropuslive upon standing. Gait Does the Patient Walk?: Yes Mode of Locomotion: Walk Anticipated Mode of Locomotion: Walk Walk 10 feet (QC): 88 Walk 50 ft with 2 Turns(QC): 88 Walk 150 ft (QC): 88 Walking 10ft/uneven surface-QC: 88 Distance: 8 Gait Assistive Device: FWW Comments/Gait Description Patient ambulated 8' with a rolling walker with max assist. Patient is very unsteady, retropulsive, uncoordinated steps. Wheelchair Training Does the Pt Use a Wheelchair?: Yes Wheel 50 ft with 2 turns (QC): 1 Wheel 150 ft (QC): 1 Type of Wheelchair: Manual Stairs 1 Step (curb) (QC): 88 4 Steps (QC): 88 12 Steps (QC): 88 Balance Sitting Static: Poor Sitting Dynamic: Poor Standing Static: Poor Standing Dynamic: Poor Picking up an Object (QC): 88 Assessment/Needs Patient has impaired mobility, strength, endurance, balance. Patient retropulsive with standing and ambulating. Patient has poor safety awareness and needs frequent cues for safety and positioning. Rehab Potential: Guarded PT Short Term Goals Short Term Goals Time Frame: Oct 06, 2019 Roll Left & Right: 3 Sit to lyin Lying to sitting on side of be: 3 Sit to stand: 3 Chair/crs-we-qxcfo transfer: 3 Walk 10 feet: 3 PT Fpc Goals Fpc Goals PT Fpc Goals Time Frame: Oct 20, 2019 Roll Left & Right (QC): 4 Sit to Lying (QC): 4 Lying-Sitting on Side/Bed(QC): 4 Sit to Stand (QC): 4 Chair/Sem-zn-Syysx Xfer(QC): 4 Car Transfer (QC): 4 Walk 10 feet (QC): 4 Walk 50ft with 2 Turns (QC): 4 PT Plan Problem List Problem List: Activity Tolerance, Functional Strength, Safety, Balance, Gait, Transfer, Bed Mobility, ROM Treatment/Plan Treatment Plan: Continue Plan of Care Treatment Plan: Bed Mobility, Education, Functional Activity Sammie, Functional Strength, Group Therapy, Gait, Safety, Therapeutic Exercise, Transfers Treatment Duration: Oct 20, 2019 Frequency: At least 5 of 7 days/Wk (IRF) Estimated Hrs Per Day: 1.5 hours per day Patient and/or Family Agrees t: Yes Safety Risks/Education Patient Education: Gait Training, Transfer Techniques, Correct Positioning, Safety Issues Teaching Recipient: Patient Teaching Methods: Demonstration, Discussion Response to Teaching: Reinforcement Needed Discharge Recommendations Plan Patient will perform bed mobility and transfer training, balance and endurance training, functional strengthening, gait training, and education, to improve functional mobility and independence at home. Therapy Discharge Recommendati: 24 Hour Supervision, Home & Family Time/GCodes Time In: 1130 Time Out: 1200 Total Billed Treatment Time: 20 Total Billed Treatment 1 visit EVM 20' PT eval from [id number], OT eval from [id number], co-treat from [id number]. PT worked on bed mobility and transfer, ambulation, standing and sitting balance, ROM, OT worked on UE activity, dressing, assist with transfers and ambulation. JAIME NUGENT PT Sep 29, 2019 12:39
--- NOTE | 2019-09-29 12:53 | Occupational Therapy Eval ---
OT Evaluation-General/PLF Medical Diagnosis Admission Date Sep 29, 2019 at 11:30 Medical Diagnosis: UTI, weakness Onset Date: Sep 23, 2019 Therapy Diagnosis Therapy Diagnosis: impaired ADLs/ functional mobility Height/Weight Height (Feet): 5 Height (Inches): 6.00 Weight (Pounds): 223 Weight (Ounces): 0.5 Referral Physician: Lynne Blake DO Referral Reason: Evaluation/Treatment Medical History Pertinent Medical History: Atrial Fib, CAD, DM, Heart Failure, HTN, [place], Neuropathy Additional Medical History Pacemaker, cardiac stent, sleep apnea, high cholesterol, TIA, UTI-chronic, c- diff, irritable bowel Current History Pt admitted acutely on 09/23/2019 with confusion and weakness, found to have UTI. She transferred to ARU on 09/29/2019 for continued medication management and skilled therapies. Reviewed History: Yes Social History Home: [facility] Current Living Status: Other Family (granddaughter) Entry Into Home: Ramp ADL-Prior Level of Function SCALE: Activities may be completed with or without assistive devices. 2-Emsadcvcgd-wabtttx completes the activity by him/herself with no assistance from a helper. 5-Set-up or Clean-up Assistance-helper sets up or cleans up; patient completes activity. [place] assists only prior to or following the activity. 4-Supervision or Touching Assistance-helper provides verbal cues and/or touching/steadying and/or contact guard assistance as patient completes activity. Assistance may be provided throughout the activity or intermittently. 3-Partial/Moderate Assistance-helper does LESS THAN HALF the effort. [place] lifts, holds or supports trunk or limbs, but provides less than half the effort. 2-Substantial/Maximal Assistance-helper does MORE THAN HALF the effort. [place] lifts or holds trunk or limbs and provides more than half the effort. 8-Aoqywynzo-upzdga does ALL the effort. Patient does none of the effort to complete the activity. Or, the assistance of 2 or more helpers is required for the patient to complete the activity. If activity was not attempted, code reason: 7-Patient Refused. 9-Not Applicable-not attempted and the patient did not perform the activity before the current illness, exacerbation or injury. 10-Not Attempted due to Environmental Limitations-(lack of equipment, weather restraints, etc.). 88-Not Attempted due to Medical Conditions or Safety Concerns. ADL PLOF Comments Pt reports she needed assistance with all ADLs prior to hospitalization, her granddaughter has been helping her. She reports requiring close to 100% assistance with ADLs lately. She has a caregiver that helps ~35 hours/week, and when her caregiver is not there her daughter or granddaughter are home to assist pt. She has a walkin shower with a bench where she sits and the caregiver dependently bathes her. Self Care: Needed Some Help Functional Cognition: Needed Some Help DME/Equipment: Bath Bench, Grab Bars, Shower DME/Equipment Comments walker, manual wheelchair OT Current Status Subjective Pt seated in recliner, agreeable to OT evaluation at this time. Mental Status/Objective Patient Orientation: Person, Place, Time, Situation Attachments: Mendez Catheter Current Glasses/Contacts: Yes Hearing Aids: No Dentures/Partials: No Hand Dominance: Right Upper Extremity ROM BUE shoulder flexion to approx 130 degrees, WFL elbows, wrists, fingers. Upper Extremity Coordination WFL Upper Extremity Sensation pt reports tingling/numbness in finger tips Upper Extremity Strength grossly 3+/5 ADL-Treatment Oral Hygiene (QC): 7 Other Treatments Pt seated upright in recliner, provided information for OT evaluation consisting of PLOF and home set up. OT/PT cotreat due to increased medical function and decreased functional endurance requiring the skill of 2 disciplines which a rehabilitation therapy technician could not perform. OT focus on UE placement, cues for sequencing, and safety, while PT focused on LEs and overall gross movements. Pt leaning towards her left side, requiring cues and slight assistance in order to scoot her shoulders to midline. OT/PT educated pt on rehab process and expectations. Pt's daughter arrived with food from [employer]. OT asked pt if she would like to brush her teeth before or after lunch. Pt indicated she did not want to participate in anymore therapy at this time, stating "I want to eat my corndog while it is still hot". Post OT/PT cotreat, pt upright in recliner, call light in reach and all needs met with daughter present. Education OT Patient Education: Correct positioning, Energy conservation, Modified ADL techniques, Progress toward Goal/Update tx plan, Purpose of tx/functional activities, Rehab process, Safety issues, Transfer techniques Teaching Recipient: Patient Teaching Methods: Discussion Response to Teaching: Verbalize Understanding OT Short Term Goals Short Term Goals Time Frame: Oct 10, 2019 Shower/bathe self: 3 Lower body dressin OT Manager Social Services Goals Manager Social Services Goals Time Frame: Oct 20, 2019 Eating (QC): 6 Oral Hygiene (QC): 6 Toileting Hygiene (QC): 3 Shower/Bathe Self (QC): 4 Upper Body Dressing (QC): 5 Lower Body Dressing (QC): 3 On/Off Footwear (QC): 3 Additional Goals: 1-Demonstrate ADL Tasks, 2-Verbalize Understanding, 3- ImproveStrength/Sammie 1=Demonstrate adherence to instructed precautions during ADL tasks. 2=Patient will verbalize/demonstrate understanding of assistive devices/modifications for ADL. 3=Patient will improve strength/tolerance for activity to enable patient to perform ADL's. OT Education/Plan Problem List/Assessment Assessment: Decreased Activ Tolerance, Decreased UE Strength, Impaired Bed Mobility, Impaired Funct Balance, Impaired I ADL's, Impaired Self-Care Skills, Restricted Funct UE ROM Discharge Recommendations Plan/Recommendations: Continue POC Treatment Plan/Plan of Care Treatment,Training & Education: Yes Patient would benefit from OT for education, treatment and training to promote independence in ADL's, mobility, safety and/or upper extremity function for ADL's. Plan of Care: ADL Retraining, Functional Mobility, Group Exercise/Act as Ind, UE Funct Exercise/Act Treatment Duration: Oct 20, 2019 Frequency: At least 5 of 7 days/Wk (IRF) Estimated Hrs Per Day: 1.5 hours per day Agreement: Yes Rehab Potential: Guarded Time/GCodes Start Time: 11:40 Stop Time: 12:00 Total Time Billed (hr/min): 20 Billed Treatment Time 5717-3600 OT evaluation [id number] OT/PT cotreat 1, EVM (10'), FA (10') LEILANI CUENCA OT Sep 29, 2019 12:53
--- NOTE | 2019-09-29 13:00 | ST Cognitive Linguistic Eval ---
Speech Evaluation-General Medical Diagnosis UTI, weakness Onset Date: Sep 23, 2019 Therapy Diagnosis Therapy Diagnosis: Cognitive-communication Referral Referring Physician: Dr. Blake Medical History Pertinent Medical History: Atrial Fib, CAD, DM, Heart Failure, HTN, [place], Neuropathy Reviewed History: Yes Social History Current Living Status: Other Family Speech PLF-Current Status Prior Level of Function Patient lived with other family which assisted her with her daily needs. Language Eval: Auditory Comprehends Simple Yes/No Ques: Functional Indent/Objects [place]: Functional Ident/Pics in [place]: Functional Follows 1-Step Commands: Mild Follows Complex Directions: Mild Follows General Conversations: Functional Language Eval: Verbal Language Completes Spontaneous Greeting: Functional Produces Auto, Serial Info: Functional Imitates Simple Words/Phrases: Functional Word Finding: Functional Requests Basic Needs: Functional States Basic Personal Info: Functional Expresses Complex Ideas: Mild Objective Cognitive Domain Attention: WNL Memory: Mild Problem Solving: Mild Executive Functions: Mild Visuospatial Skills: WNL Composite Severity Rating: Mild Clock Drawing Severity Rating: Mild Objective Formal/Standardized Tests [facility] Status ([facility]) Results 15/30, within moderate dementia range of function Oral Motor/Speech Production Within Normal Range Impression The patient is an 79 year old female who was admitted to the ARU due to d ebility. Patient was given the UMS with a score of 15/30 obtained. This score falls within the moderate dementia range of function. Due to her level of function the patient qualifies for skilled ST services. ST will focus on safety awareness and independence in order for patient to return safely to her home. Speech Patient Assess Expression of Ideas/Wants: Exhibits (3) Understanding Verbal Content: Usually Understands (3) Brief Interview-Mental Status: Yes Repetition of Three Words: Three (3) Temporal Orientation: Year: No answer (0) Temporal Orientation: Month: Accurate within 5 days(2) Temporal Orientation: Day: Incorrect or No Answer(0) Recall : Wear to say "Sock": Yes, no cue required (2) Recall : Color: No, could not recall (0) Recall : Bed: Yes, no cue required (2) Memory/Recall Ability: That he or she is in a hsp/hsp unit Speech Short Term Goals Short Term Goals Short Term Goals 1) The patient will complete memory tasks as related to her daily needs at 80% or greater with minimal cues. 2) The patient will complete safety awareness tasks as related to her daily needs at 80% or greater with minimal cues. 3) The patient will complete problem solving tasks as related to her daily needs at 80% or greater with minimal cues. Speech Custodial Goals Composite Worker Goals Patient will improve cognitive-communication necessary for safety and daily living tasks with minimal assist. Speech-Plan Patient/Family Goals Patient/Family Goals: Patient plans on returning to her home where she lives with other family. Treatment Plan Speech Therapy Treatment Plan: Continue Plan of Care Frequency: 5 times per week Estimated Hrs Per Day: .5 hour per day Rehab Potential: Guarded Barriers to Learning: Moderate level of dementia Pt/Family Agrees to Plan: Yes Safety Risks/Education Teaching Recipient: Patient Teaching Methods: Discussion Response to Teaching: Verbalize Understanding, Reinforcement Needed Education Topics Provided: Safety within her room and communication of wants/needs Time Speech Therapy Time In: 12:30 Speech Therapy Time Out: 12:50 Total Billed Time: 20 Billed Treatment Time 1, BRITTNDCOMLORETTA Tamayo Sep 29, 2019 13:00
--- NOTE | 2019-09-29 13:56 | Physical Therapy Daily Note ---
PT Daily Note-Current Subjective [place] 3/10 pain in LE. Patient quiet and fatigued. Will be co-treating with OT due to poor patient mobility, strength, endurance, balance, the need to coordinate UE and LE during activity, assist with balance during standing and dynamic sitting activity. Appearance Patient was returned to the recliner with call light and tray in reach. Mental Status Patient Orientation: Person, Place, Eyes Open Attachments: Mendez Catheter Transfers SCALE: Activities may be completed with or without assistive devices. 7-Xvgtxbyuuu-ilhucbx completes the activity by him/herself with no assistance from a helper. 5-Set-up or Clean-up Assistance-helper sets up or cleans up; patient completes activity. [place] assists only prior to or following the activity. 4-Supervision or Touching Assistance-helper provides verbal cues and/or touching/steadying and/or contact guard assistance as patient completes activity. Assistance may be provided throughout the activity or intermittently. 3-Partial/Moderate Assistance-helper does LESS THAN HALF the effort. [place] lifts, holds or supports trunk or limbs, but provides less than half the effort. 2-Substantial/Maximal Assistance-helper does MORE THAN HALF the effort. [place] lifts or holds trunk or limbs and provides more than half the effort. 8-Xsjnynzpw-pscnpq does ALL the effort. Patient does none of the effort to complete the activity. Or, the assistance of 2 or more helpers is required for the patient to complete the activity. If activity was not attempted, code reason: 7-Patient Refused. 9-Not Applicable-not attempted and the patient did not perform the activity before the current illness, exacerbation or injury. 10-Not Attempted due to Environmental Limitations-(lack of equipment, weather restraints, etc.). 88-Not Attempted due to Medical Conditions or Safety Concerns. Sit to Stand (QC): 2 (2x therapist Mod A each) Chair/Bqo-zs-Iacha Xfer(QC): 2 (2x therapist mod A each) Toilet Transfer (QC): 2 (2x therapist mod A ea) Gait Training Does the Patient Walk?: Yes Distance: 10 Walk 10 feet (QC): 2 (2x Therapist mod A each) Walk 50 ft with 2 Turns(QC): 88 Walk 150 ft (QC): 88 Walking 10ft/uneven surface-QC: 88 Gait Persons Needed: 2 Gait Assistive Device: FWW Balance Picking up an Object (QC): 88 Exercises Seated Therapy Exercises: Sit to stand (3x from toilet for sponge bath. Mod A 2x therapist) Treatments Dynamic standing balance while completing sponge bath. 1 PT needed with mod A. Patient only able to stand 60 sec without having to sit down. Unable to control sitting and required 2x therapist to lower. Patient bathed and was dressed and toileted. Assessment Current Status: Fair Progress Patient has to be motivated to complete activities/ exercises. Patient fatigues quickly and does not follow instructions for sitting down safely. PT Short Term Goals Short Term Goals Time Frame: Oct 06, 2019 Roll Left & Right: 3 Sit to lyin Lying to sitting on side of be: 3 Sit to stand: 3 Chair/inm-fp-tuhqm transfer: 3 Walk 10 feet: 3 PT Mcc Goals Mcc Goals PT Mcc Goals Time Frame: Oct 20, 2019 Roll Left & Right (QC): 4 Sit to Lying (QC): 4 Lying-Sitting on Side/Bed(QC): 4 Sit to Stand (QC): 4 Chair/Ejx-oy-Dlpqx Xfer(QC): 4 Car Transfer (QC): 4 Walk 10 feet (QC): 4 Walk 50ft with 2 Turns (QC): 4 PT Plan Problem List Problem List: Activity Tolerance, Functional Strength, Safety, Balance, Gait, Transfer, Bed Mobility, ROM Treatment/Plan Treatment Plan: Continue Plan of Care Treatment Plan: Bed Mobility, Education, Functional Activity Sammie, Functional Strength, Group Therapy, Gait, Safety, Therapeutic Exercise, Transfers Treatment Duration: Oct 20, 2019 Frequency: At least 5 of 7 days/Wk (IRF) Estimated Hrs Per Day: 1.5 hours per day Patient and/or Family Agrees t: Yes Safety Risks/Education Patient Education: Gait Training, Transfer Techniques, Correct Positioning, Disease Process, Safety Issues Teaching Recipient: Patient Teaching Methods: Demonstration, Discussion Response to Teaching: Verbalize Understanding, Unable to Return Demonstration (on ability to safely sit down), Return Demonstration Time/GCodes Time In: 1300 Time Out: 1400 Total Billed Treatment Time: 60 Total Billed Treatment 1 visit FA 60' Co-treated for the whole 60'. PT performed bed mobility and transfer training, sitting and standing balance during dressing and bathing, LE exercise, ambulation, OT performed bathing and dressing, UE activity, assist with transfers and ambulation. KRTEK,JAIME PT Sep 29, 2019 13:56
[2019-09-29] MEDS ORDERED: hydrOXYzine (VISTARIL/ATARAX) 25 MG capsule/tablet PO PRN (14:00)
[2019-09-29] MEDS ORDERED: DIAZEPAM 5 MG (VALIUM) TABLET PO PRN (14:00)
[2019-09-29] MEDS ORDERED: CATHETER FLUSH 10 ML SYR IV PRN (14:00)
[2019-09-29] MEDS ORDERED: ANTACID SUSP 30 ML UDC (MYLANTA) PO PRN (14:00)
[2019-09-29] MEDS ORDERED: polyethylene glycoL POWDER 17 GM (MIRALAX) PACK PO PRN (14:00)
[2019-09-29] MEDS ORDERED: ONDANSETRON 4 MG/2 ML (SDV) Z0FRAN IV PRN (14:00)
--- NOTE | 2019-09-29 14:29 | Occupational Ther Daily Note ---
OT Current Status-Daily Note Subjective Pt seated upright in recliner at start of session, agreeable to OT/PT treatment with focus on ADLs Mental Status/Objective Attachments: Mendez Catheter ADL-Treatment Therapy Code Descriptions/Definitions Functional [place] Measure: 0=Not Assessed/NA 4=Minimal Assistance 1=Total Assistance 5=Supervision or Setup 2=Maximal Assistance 6=Modified [place] 3=Moderate Assistance 7=Complete IndependenceSCALE: Activities may be completed with or without assistive devices. 2-Tcivywkyne-btwxwsf completes the activity by him/herself with no assistance from a helper. 5-Set-up or Clean-up Assistance-helper sets up or cleans up; patient completes activity. [place] assists only prior to or following the activity. 4-Supervision or Touching Assistance-helper provides verbal cues and/or touching/steadying and/or contact guard assistance as patient completes activity. Assistance may be provided throughout the activity or intermittently. 3-Partial/Moderate Assistance-helper does LESS THAN HALF the effort. [place] lifts, holds or supports trunk or limbs, but provides less than half the effort. 2-Substantial/Maximal Assistance-helper does MORE THAN HALF the effort. [place] l ifts or holds trunk or limbs and provides more than half the effort. 8-Elzxpatjo-xymukg does ALL the effort. Patient does none of the effort to complete the activity. Or, the assistance of 2 or more helpers is required for the patient to complete the activity. If activity was not attempted, code reason: 7-Patient Refused. 9-Not Applicable-not attempted and the patient did not perform the activity before the current illness, exacerbation or injury. 10-Not Attempted due to Environmental Limitations-(lack of equipment, weather restraints, etc.). 88-Not Attempted due to Medical Conditions or Safety Concerns. Eating (QC): 5 (Pt reports she required assistance opening mustard packet.) Oral Hygiene (QC): 5 (Set up/clean up at tray table. Pt required assistance opening toothpaste container and squeezing it onto brush. Pt then able to brush her teeth and bring cup of water to her mouth to rinse.) Bathing Location: L Arm, R Arm, Chest, Abdomen, Perineal Area Shower/Bathe Self (QC): 1 (Pt able to wash areas indicated, requiring assist with all other areas. During stand for washing buttocks, pt required assist x2, 1 person for balance, and 1 person to assist with cleansing.) Upper Body Dressing (QC): 2 (Pt able to thread arms into sleeves, requiring assistance with pulling sleeves all the way up, she then required assistance managing shirt down.) Lower Body Dressing (QC): 1 (Pt required assistance with all parts of task. Assist x2 during stand, 1 person to assist with standing balance and 1 to assist with pulling briefs up.) On/Off Footwear: 1 (Pt dependent for tasks. She did not attempt any parts, stating she is unable to reach her feet. OT dependently donned/doffed shoes, socks, and compression hose.) Toileting Hygiene (QC): 1 (Pt attemped toilet hygiene but required assistance for thoroughness. X2 assist during task, 1 to assist with balance, and 1 to assist with hygiene and clothing management. ) Toilet Transfer (QC): 1 (Mod A x2) Other Treatment OT/PT cotreat due to increased medical complexity, and decreased functional endurance requiring the skill of 2 disciplines which a occupational rehabilitation aide could not perform. OT focused on UE placement, ADLs, cues for sequencing and safety while PT focused on LE placement and overall gross movements. Pt brushed her teeth at recliner, then participated in sponge bath and upper body dressing. When pt stood up, she indicated she needed to use the restroom. Pt assisted to toilet and completed toileting. She then completed her sponge bath on the toilet as well as completing lower body dressing and footwear. Pt then transferred to w/c, then to the recliner. Pt fatigued quickly during ADL treatment, requiring rest breaks with task. All transfers during session required Mod A x2, she was only able to stand 60 seconds before needing to sit down. Pt required x2 assist to lower to the chair as she was unable to control her lower. OT/PT educated pt on importance of reaching back to her chair prior to attempting to sit with poor carryover. Post OT/PT cotreat, pt seated in recliner, call light and tray table in reach with all needs met, nurse present. Education OT Patient Education: Correct positioning, Energy conservation, Modified ADL techniques, Progress toward Goal/Update tx plan, Purpose of tx/functional activities, Safety issues, Transfer techniques Teaching Recipient: Patient Teaching Methods: Discussion Response to Teaching: Verbalize Understanding, Reinforcement Needed OT Short Term Goals Short Term Goals Time Frame: Oct 10, 2019 Shower/bathe self: 3 Lower body dressin OT [employer] Footwear Goals Senior Living Goals Time Frame: Oct 20, 2019 Eating (QC): 6 Oral Hygiene (QC): 6 Toileting Hygiene (QC): 3 Shower/Bathe Self (QC): 4 Upper Body Dressing (QC): 5 Lower Body Dressing (QC): 3 On/Off Footwear (QC): 3 Additional Goals: 1-Demonstrate ADL Tasks, 2-Verbalize Understanding, 3- ImproveStrength/Sammie 1=Demonstrate adherence to instructed precautions during ADL tasks. 2=Patient will verbalize/demonstrate understanding of assistive devices/modifications for ADL. 3=Patient will improve strength/tolerance for activity to enable patient to perform ADL's. OT Education/Plan Problem List/Assessment Assessment: Decreased Activ Tolerance, Decreased Safety Aware, Decreased UE Strength, Impaired Bed Mobility, Impaired Funct Balance, Impaired I ADL's, Impaired Self-Care Skills Discharge Recommendations Plan/Recommendations: Continue POC Treatment Plan/Plan of Care Patient would benefit from OT for education, treatment and training to promote independence in ADL's, mobility, safety and/or upper extremity function for ADL's. Plan of Care: ADL Retraining, Functional Mobility, Group Exercise/Act as Ind, UE Funct Exercise/Act Treatment Duration: Oct 20, 2019 Frequency: At least 5 of 7 days/Wk (IRF) Estimated Hrs Per Day: 1.5 hours per day Agreement: Yes Rehab Potential: Guarded Time/GCodes Start Time: 13:00 Stop Time: 14:00 Total Time Billed (hr/min): 60 Billed Treatment Time OT/PT Cotreat 1, ADL 4 LEILANI CUENCA OT Sep 29, 2019 14:29
[2019-09-29] MEDS: inSUlin ASPART (NovoLOG) 1 UNIT/0.01 ML (CHARGE PER UNIT) SC SCH ×2 (15:00→20:33)
[2019-09-29 15:09] VITALS: BP 108/69
[2019-09-29 16:14] VITALS: BP 116/73
[2019-09-29] MEDS: cefTRIAXone FOR IV USE 1,000 MG in WATER (STERILE) FOR INJECTION 10 ML IV SCH (16:38)
[2019-09-29] MEDS: MIDODRINE 10 MG (PROAMATINE) TAB PO SCH (17:07)
[2019-09-29 18:04] VITALS: BP 112/70
[2019-09-29] MEDS: polyethylene glycoL POWDER 17 GM (MIRALAX) PACK PO SCH (19:25)
[2019-09-29] MEDS: DOCUSATE SODIUM 100 MG (COLACE) CAP PO SCH (19:25)
[2019-09-29] MEDS: SENNA W/DOCUSATE (SENOKOT S) TABLET PO SCH (19:25)
--- NOTE | 2019-09-29 20:33 | NUR ---
Pt maintaining insulin pump per self and adjusting as needed.
--- NOTE | 2019-09-29 20:59 | PM&R Post Admission Assessment ---
PM&R HP Date of Visit: Sep 29, 2019 Time of Visit: 18:00 History of Present Illness CC: Debility HPI: This is an 79yoWF clinic patient of Dr Gonzales and Dr Bauman who maintains an insulin pump who has a h/o multiple UTI's and ESBL who presents to the IRF in need of strengthening and modify her current path in order to decrease readmissions and improve independence of ADL's and ambulation. Patient walks with a walker currently and is frightened of falling. Patient does have private caregivers and granddaughter who lives with her but she is still requiring zepeda catheter due to retention and Dr Bardales will see her tomorrow in consultation. Rocephin will be maintained until fully treated UTI. Bowels are really loose and C diff was indeterminate. Per problem list Dr Morris: Urinary tract infection History of ESBL UA consistent with urinary tract infection Urine culture growing klebsiella Switch to Rocephin per sensitivities C diff Diarrhea - C diff testing sent, indeterminant at this time - oral vanc Chronic kidney disease Creatinine improved, trend Foot pain Pain regimen ordered DAILY ge for edema - Continue allopurinol Type II diabetes mellitus Sliding scale insulin Chronic atrial fibrillation PAD s/p TAVR for aortic stenosis Continue Eliquis, metoprolol, Plavix Debility - PT/OT - Safest discharge plan is to a SNF for rehab. She refused this. Explored IRU but patient also declines. Informed of need for as much supervised care as possible and my concern regarding a safe discharge plan to home. She will work on getting 24/7 care arranged. I spoke to granddaughter who is DPOA and agrees that SNF is best discharge option. Granddaughter will try to talk to patient about that plan. Will be medically ready for DC tomorrow. DVT prophylaxis: Already receiving therapeutic anticoagulation Lactic acidosis, resolved Past Ftlfdun-Pqvikl-Rntumc Hx Past Med/Social Hx: Reviewed Nursing Past Med/Soc Hx, Reviewed and Corrections made Patient Social History Marrital Status: single Employed/Student: retired Alcohol Use: Denies Use Recreational Drug Use: No Smoking Status: Never a Smoker 2nd Hand Smoke Exposure: No Physical Abuse Screen: No Sexual Abuse: No Recent Foreign Travel: No Contact w/other who traveled: No Recent Hopitalizations: No Recent Infectious Disease Expo: No Immunizations Up To Date Tetanus Booster (TDap): Less than 5yrs Date of Pneumonia Vaccine: Aug 02, 2018 Date of Influenza Vaccine: Apr 19, 2019 Seasonal Allergies Seasonal Allergies: No Past Medical History Surgeries: Cardiac, Coronary Stent, Gallbladder, Hysterectomy, Oophorectomy, Orthopedic, Pacemaker, Vascular Surgery Currently Using CPAP: No Currently Using BIPAP: No Cardiac: Atrial Fibrillation, Chronic Edema/Swelling, Coronary Artery Disease, Heart Attack, Heart Murmur, High Cholesterol, Hypertension, Peripheral Vascular, Rheumatic Fever Neurological: Neuropathy, TIA Reproductive: No Sexually Transmitted Disease: No Hysterectomy, Menopausal Genitourinary: Bladder Infection, UTI-Chronic Gastrointestinal: C-Diff, Irritable Bowel Musculoskeletal: Arthritis Endocrine: Diabetes, Insulin dep HEENT: Cataract Loss of Vision: Left Hearing Impairment: Deaf Cancer: Breast Did You Recieve Any Treatments: Yes What Type of Treatment Did You: Radiation History of Blood Disorders: No Adverse Reaction to Blood High: No Family History Cardiovascular disease 19 FATHER 19 MOTHER G8 BROTHER G8 SISTER G8 SISTER G8 SISTER Completed stroke 19 FATHER G8 SISTER Diabetes mellitus 19 FATHER G8 SISTER G8 SISTER FH: cancer G8 SISTER G8 SISTER Myocardial infarction G8 BROTHER (65 YEARS OLD) No Pertinent Family Hx Prior Level of Function Bed Mobility: 4 Transfers: 4 Gait: 4 Indoor Mobility (Ambulation): Needed Some Help Prior Devices Use: Manual wheelchair, Walker Self Care: Needed Some Help Functional Cognition: Needed Some Help Occupation: retired Current Level of Fuctioning Roll Left to Right: 2 Sit to Lyin Lying to Sitting/Side of Bed: 2 Sit to Stand: 2 (2x therapist Mod A each) Chair/Dmt-gl-Bleru Xfer: 2 (2x therapist mod A each) Car Transfer: 88 Does the Patient Walk: Yes Mode of Locomotion: Walk Anticipated Mode of Locomotion: Walk Walk 10 feet: 2 (2x Therapist mod A each) Walk 50 ft with 2 Turns: 88 Walk 150 ft: 88 Walking 10ft on uneven surface: 88 Gait Assistive Device: FWW Does the Pt Use a Wheelchair: Yes Wheel 50 ft with 2 turns: 1 Wheel 150 ft: 1 Type of Wheelchair: Manual 1 Step (curb): 88 4 Steps: 88 12 Steps: 88 Picking up an Object: 88 Eatin (Pt reports she required assistance opening mustard packet.) Oral Hygiene: 5 (Set up/clean up at tray table. Pt required assistance opening toothpaste container and squeezing it onto brush. Pt then able to brush her t eeth and bring cup of water to her mouth to rinse.) Shower/Bathe Self: 1 (Pt able to wash areas indicated, requiring assist with all other areas. During stand for washing buttocks, pt required assist x2, 1 person for balance, and 1 person to assist with cleansing.) Upper Body Dressin (Pt able to thread arms into sleeves, requiring ass istance with pulling sleeves all the way up, she then required assistance managing shirt down.) Lower Body Dressin (Pt required assistance with all parts of task. Assist x2 during stand, 1 person to assist with standing balance and 1 to assist with pulling briefs up.) On/Off Footwear: 1 (Pt dependent for tasks. She did not attempt any parts, stating she is unable to reach her feet. OT dependently donned/doffed shoes, socks, and compression hose.) Toileting Hygiene: 1 (Pt attemped toilet hygiene but required assistance for thoroughness. X2 assist during task, 1 to assist with balance, and 1 to assist with hygiene and clothing management. ) Toilet Transfer: 1 (Mod A x2) PM&R Allergy/Meds/Data Review Allergies Coded Allergies: sulfamethoxazole (Verified Allergy, Intermediate, 10/05/15) tramadol (Verified Allergy, Intermediate, 10/05/15) trimethoprim (Verified Allergy, Intermediate, 10/05/15) Penicillins (Verified Allergy, Unknown, 10/05/15) codeine (Verified Allergy, Unknown, CAN TAKE MORPHINE, 10/05/15) hydrocodone (Verified Allergy, Unknown, 10/05/15) morphine (Verified Adverse Reaction, Intermediate, Nausea, 06/03/19) amiodarone (Verified Adverse Reaction, Mild, NAUSEA, dizziness, 02/01/16) Home Medications Scheduled Allopurinol (Allopurinol), 100 MG PO DAILY, (Reported) Apixaban (Eliquis), 2.5 MG PO BID, (Reported) Cholecalciferol (Vitamin D3) (Vitamin D3), 25 MCG PO 1200, (Reported) Clopidogrel Bisulfate (Clopidogrel), 75 MG PO DAILY, (Reported) Cyanocobalamin (Vitamin B-12) (Vitamin B-12), 1,000 MCG PO 1200, (Reported) Docusate Sodium (Colace), 100 MG PO HS, (Reported) Estrogens Conjugated (Premarin), VG MoWeFr, (Reported) Ferrous Sulfate (Ferrous Sulfate), 325 MG PO BID, (Reported) Insulin Aspart (Novolog), PER INSULIN PUMP, (Reported) Liraglutide (Victoza 2-Luis Enrique), 1.2 MG SC HS, (Reported) Metoprolol Succinate (Metoprolol Succinate), 12.5 MG PO DAILY, (Reported) Midodrine HCl (Midodrine HCl), 10 MG PO BID, (Reported) Pantoprazole Sodium (Pantoprazole Sodium), 40 MG PO DAILY, (Reported) Potassium Chloride (Potassium Chloride), 20 MEQ PO 0700,1200, (Reported) Rosuvastatin Calcium (Rosuvastatin Calcium), 20 MG PO HS, (Reported) Sertraline HCl (Sertraline HCl), 25 MG PO HS, (Reported) Torsemide (Torsemide), 50 MG PO DAILY, (Reported) Scheduled PRN Acetaminophen (Acetaminophen), 650 MG PO Q4H PRN for PAIN-MILD (1-4), (Reported) Diazepam (Diazepam), 5 MG PO DAILY PRN for ANXIETY, (Reported) Diphenhydramine HCl (Benadryl Allergy), 25 MG PO Q6H PRN for ITCHING, (Reported) Hydroxyzine HCl (Hydroxyzine HCl), 25-50 MG PO HS PRN for SLEEP, (Reported) Ondansetron HCl (Zofran), 4 MG PO Q6H PRN for NAUSEA/VOMITING-1ST LINE, (Repo rted) Discontinued Medications Cholecalciferol (Vitamin D3) (Vitamin D3), 5,000 UNIT PO DAILY, (Reported) Discontinued Reason: Prescription changed Fexofenadine HCl (Lynne Allergy), 180 MG PO BID PRN for CONGESTION, (Reported) Discontinued Reason: No Longer Taking Triamcinolone Acet (Triamcinolone Acetonide 0.1% Cream), 1 APPLIC TP BID, (Reported) Discontinued Reason: No Longer Taking Current Medications Current Medications Reviewed Laboratory Data Laboratory Tests 09/29/19 15:29: Glucometer 151H Review of Systems Constitutional: see HPI, malaise, weakness EENTM: no symptoms reported Respiratory: no symptoms reported Cardiovascular: no symptoms reported Gastrointestinal: diarrhea Genitourinary: decreased output, other (retention) Musculoskeletal: back pain, joint pain Skin: rash Psychiatric/Neurological: Depressed All Other Systems Reviewed Negative Unless Noted: Yes Physical Exam Physical Exam Vital Signs Vital Signs - First Documented 09/29/19 09/29/19 09/29/19 13:59 14:54 15:09 Temp 36.7 Pulse 62 Resp 16 B/P (MAP) 108/69 (82) Pulse Ox 93 O2 Delivery Room Air Capillary Refill : Less Than 3 SecondsLess Than 3 Seconds Height, Weight, BMI Height: 5'6.00" Weight: 223lbs. 0.5oz. [id number]; 34.17 BMI Method:Stated General Appearance: No Apparent Distress, WD/WN, Chronically ill Eyes: Bilateral Eye Normal Inspection, Bilateral Eye PERRL HEENT: PERRL/EOMI, Normal ENT Inspection, Pharynx Normal Neck: Full Range of Motion, Normal Inspection, Non Tender, Supple, Carotid Bruit Respiratory: Chest Non Tender, Lungs Clear, No Accessory Muscle Use, No Respiratory Distress, Decreased Breath Sounds Cardiovascular: No Edema, No Gallop, No JVD, No Murmur, Normal Peripheral Pulses, Irregularly Irregular Gastrointestinal: Normal Bowel Sounds, No Organomegaly, No Pulsatile Mass, Non Tender, Soft Back: Normal Inspection, No CVA Tenderness, No Vertebral Tenderness Extremity: Normal Capillary Refill, Normal Inspection, Normal Range of Motion, Non Tender, No Calf Tenderness, No Pedal Edema Neurologic/Psychiatric: Alert, Oriented x3, No Motor/Sensory Deficits, couples therapist II- XII Norm as Tested, Abnormal Gait, Depressed Affect, Motor Weakness (generalized weakness of all extremities, slow gait) Skin: Normal Color, Warm/Dry Lymphatic: No Adenopathy PM&R Medical Assessment & Plan REHAB/MEDICAL ASSESSMENT AND PLAN: REHAB IMPAIRMENT GROUP: Debility ETIOLOGIC DIAGNOSIS: Recurrent UTI causing debility The comorbidities that impact the patients function and/or functional outcome by: advanced age, severe chronic debility, flat affect, UTI, loose stools REHAB PLAN: The patient is being admitted to our comprehensive inpatient rehabilitation facility and can tolerate the intensity of service consisting of at least: 180 minutes of therapy a day, 5 out of 7 days a week Rehab treatment will consist of: PT OT will focus on increasing independence in order to return home and prevent falls and recurrent readmits. The patient/family has a good understanding of our discharge process and will benefit from an interdisciplinary inpatient rehabilitation program. The patient has potential to make improvement and is in need of at least two of the following multidisciplinary therapies including but not limited to physical, occupational, speech, and prosthetics and orthotics. Additionally the patient will need services from respiratory, nutritional services, wound care, psychology, etc. (Customize this to each patient). Given the patients complex condition and risk of further medical complications, rehabilitation services cannot be safely or effectively provided at a lower level of care such as a usp facility. BARRIERS TO DISCHARGE: Advanced age ESTIMATED LOS: 9 days DISPOSITION: Home RELEVANT CHANGES SINCE PREADMISSION SCREENING: I have compared the patients medical and functional status at the time of the preadmission screening and there are: no changes PROGNOSIS: Fair REHABILITATION GOALS: 1. PT OT will focus on increasing independence in order to return home and prevent falls and recurrent readmits. All the above goals were reviewed with the patient and he/she is in agreement. By signing this document, I acknowledge that I have personally performed a full physical examination on this patient within 24 hours of admission to this inpatient rehabilitation facility and have determined the patient to be able to tolerate the above course of treatment at an intensive level for a reasonable period of time. I will be completing a detailed individualized Plan of Care for this patient by day #4 of the patients stay based upon the Preadmission Screen, the Post-Admission Evaluation, and the therapy evaluations. 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 (5) SSS (sick sinus syndrome) Status: Chronic ICD Codes: I49.5 - Sick sinus syndrome (6) Hypertension Status: Acute ICD Codes: I10 - Essential (primary) hypertension (7) Diabetic neuropathy Status: Acute ICD Codes: E11.40 - Type 2 diabetes mellituswith diabetic neuropathy, unspecified (8) IDDM (insulin dependent diabetes mellitus) Status: Acute ICD Codes: E11.9 - Type 2 diabetes mellitus without complications; 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 coli infection Status: Chronic ICD Codes: Z86.19 - Personal history of other infectious and parasitic diseases KIMMY HANSON DO Sep 29, 2019 20:59
[2019-09-29] MEDS: ROSUVASTATIN 20 MG (CRESTOR) TABLET PO SCH (21:34)
[2019-09-29] MEDS: APIXABAN 2.5 MG (ELIQUIS) TABLET PO SCH (21:34)
[2019-09-29] MEDS: SERTRALINE 50 MG (ZOLOFT) TABLET PO SCH (21:34)
[2019-09-30 05:42] VITALS: BP 115/75
[2019-09-30 05:52] LABS: BASOPHILS % (AUTO) 1 % (0-10); EOSINOPHILS # (AUTO) 0.2 10^3/uL (0.0-0.3); EOSINOPHILS % (AUTO) 3 % (0-10); HEMATOCRIT 38 % (35-52); HEMOGLOBIN 11.6 G/DL (11.5-16.0); LYMPHOCYTES # (AUTO) 1.6 X 10^3 (1.0-4.0); LYMPHOCYTES % (AUTO) 26 % (12-44); MEAN CORPUSCULAR HEMOGLOBIN 24 PG (25-34); MEAN CORPUSCULAR HGB CONC 30 G/DL (32-36); MEAN CORPUSCULAR VOLUME 80 FL (80-99); MEAN PLATELET VOLUME 8.8 FL (7.4-10.4); MONOCYTES # (AUTO) 0.7 X 10^3 (0.0-1.0); MONOCYTES % (AUTO) 11 % (0-12); NEUTROPHILS # (AUTO) 3.6 X 10^3 (1.8-7.8); NEUTROPHILS % (AUTO) 60 % (42-75); PLATELET COUNT 186 10^3/uL (130-400); WHITE BLOOD COUNT 6.1 10^3/uL (4.3-11.0)
[2019-09-30 06:10] LABS: ALBUMIN 2.8 GM/DL (3.2-4.5); BILIRUBIN,TOTAL 0.4 MG/DL (0.1-1.0); CALCIUM 8.3 MG/DL (8.5-10.1); CREATININE SERUM 1.26 MG/DL (0.60-1.30); POTASSIUM 3.2 MMOL/L (3.6-5.0); TOTAL PROTEIN 5.5 GM/DL (6.4-8.2)
[2019-09-30] MEDS: MIDODRINE 10 MG (PROAMATINE) TAB PO SCH ×2 (06:21→18:36)
[2019-09-30] MEDS: DOCUSATE SODIUM 100 MG (COLACE) CAP PO SCH ×2 (08:24→20:47)
[2019-09-30] MEDS: SENNA W/DOCUSATE (SENOKOT S) TABLET PO SCH ×2 (08:25→20:48)
[2019-09-30] MEDS: polyethylene glycoL POWDER 17 GM (MIRALAX) PACK PO SCH ×2 (08:25→20:47)
[2019-09-30] MEDS: APIXABAN 2.5 MG (ELIQUIS) TABLET PO SCH ×2 (08:45→20:48)
[2019-09-30] MEDS: ALLOPURINOL 100 MG (ZYLOPRIM) TAB PO SCH (08:45)
[2019-09-30] MEDS: TORSEMIDE 20 MG (DEMADEX) TAB PO SCH (08:46)
[2019-09-30] MEDS: CLOPIDOGREL 75 MG (PLAVIX) TABLET PO SCH (08:46)
[2019-09-30] MEDS: PANTOPRAZOLE 40 MG (PROTONIX) TAB PO SCH (08:46)
--- NOTE | 2019-09-30 09:00 | PM&R Progress Note ---
Subjective HPI/CC On Admission Date Seen by Provider: Sep 30, 2019 Time Seen by Provider: 09:00 Subjective/Events-last exam Blood sugars are okay with insulin pump Holding laxatives due to loose stools Dr. Bardales started her on Urecholine and Flomax Potassium 3.2 will be supplemented with 10 mEQ Conferred with RN Reviewed therapy notes Checked meds and labs Review of Systems General: Fatigue Gastrointestinal: Diarrhea Genitourinary: Retention Objective Exam Vital Signs Vital Signs Date Time Temp Pulse Resp B/P (MAP) Pulse Ox O2 Delivery O2 Flow Rate FiO2 09/30/19 16:00 36.5 81 16 127/80 (96) 98 Room Air Capillary Refill : Less Than 3 SecondsLess Than 3 Seconds General Appearance: No Apparent Distress, WD/WN, Chronically ill HEENT: PERRL/EOMI, Normal ENT Inspection, Pharynx Normal Neck: Full Range of Motion, Normal Inspection, Non Tender, Supple, Carotid Bruit Respiratory: Chest Non Tender, Lungs Clear, No Accessory Muscle Use, No Respiratory Distress, Decreased Breath Sounds Cardiovascular: No Edema, No Gallop, No JVD, No Murmur, Normal Peripheral Pulses, Irregularly Irregular Gastrointestinal: Normal Bowel Sounds, No Organomegaly, No Pulsatile Mass, Non Tender, Soft Back: Normal Inspection, No CVA Tenderness, No Vertebral Tenderness Extremity: Normal Capillary Refill, Normal Inspection, Normal Range of Motion, Non Tender, No Calf Tenderness, No Pedal Edema Neurologic/Psychiatric: Alert, Oriented x3, No Motor/Sensory Deficits, rn long term care II- XII Norm as Tested, Abnormal Gait, Depressed Affect, Motor Weakness (generalized weakness of all extremities, slow gait) Skin: Normal Color, Warm/Dry Lymphatic: No Adenopathy Results/Procedures Lab Laboratory Tests 09/30/19 05:32 Patient resulted labs reviewed. FIM Transfers Therapy Code Descriptions/Definitions Functional [place] Measure: 0=Not Assessed/NA 4=Minimal Assistance 1=Total Assistance 5=Supervision or Setup 2=Maximal Assistance 6=Modified [place] 3=Moderate Assistance 7=Complete IndependenceSCALE: Activities may be completed with or without assistive devices. 7-Vgyylquxtq-hnanjsw completes the activity by him/herself with no assistance from a helper. 5-Set-up or Clean-up Assistance-helper sets up or cleans up; patient completes activity. [place] assists only prior to or following the activity. 4-Supervision or Touching Assistance-helper provides verbal cues and/or touching/steadying and/or contact guard assistance as patient completes activity. Assistance may be provided throughout the activity or intermittently. 3-Partial/Moderate Assistance-helper does LESS THAN HALF the effort. [place] lifts, holds or supports trunk or limbs, but provides less than half the effort. 2-Substantial/Maximal Assistance-helper does MORE THAN HALF the effort. [place] lifts or holds trunk or limbs and provides more than half the effort. 5-Drshnyczy-grxmam does ALL the effort. Patient does none of the effort to complete the activity. Or, the assistance of 2 or more helpers is required for the patient to complete the activity. If activity was not attempted, code reason: 7-Patient Refused. 9-Not Applicable-not attempted and the patient did not perform the activity before the current illness, exacerbation or injury. 10-Not Attempted due to Environmental Limitations-(lack of equipment, weather restraints, etc.). 88-Not Attempted due to Medical Conditions or Safety Concerns. Roll Left to Right (QC): 2 Sit to Lying (QC): 2 Sit to Stand (QC): 2 (2x therapist Mod A each) Chair/Fxk-ih-Lrnay Xfer(QC): 2 (2x therapist mod A each) Car Transfer (QC): 88 Gait Training Does the Patient Walk?: Yes Distance: 10 Walk 10 feet (QC): 2 (2x Therapist mod A each) Walk 50 ft with 2 Turns(QC): 88 Walk 150 ft (QC): 88 Walking 10ft/uneven surface-QC: 88 Gait Persons Needed: 2 Gait Assistive Device: FWW Wheelchair Training Does the Pt Use a Wheelchair?: Yes Wheel 50 ft with 2 turns (QC): 1 Wheel 150 ft (QC): 1 Type of Wheelchair: Manual Stair Training 1 Step (curb) (QC): 88 4 Steps (QC): 88 12 Steps (QC): 88 Balance Picking up an Object (QC): 88 ADL-Treatment Eating (QC): 5 (Pt reports she required assistance opening mustard packet.) Oral Hygiene (QC): 5 (Set up/clean up at tray table. Pt required assistance opening toothpaste container and squeezing it onto brush. Pt then able to brush her teeth and bring cup of water to her mouth to rinse.) Bathing Location: L Arm, R Arm, Chest, Abdomen, Perineal Area Shower/Bathe Self (QC): 1 (Pt able to wash areas indicated, requiring assist with all other areas. During stand for washing buttocks, pt required assist x2, 1 person for balance, and 1 person to assist with cleansing.) Upper Body Dressing (QC): 2 (Pt able to thread arms into sleeves, requiring assistance with pulling sleeves all the way up, she then required assistance managing shirt down.) Lower Body Dressing (QC): 1 (Pt required assistance with all parts of task. Assist x2 during stand, 1 person to assist with standing balance and 1 to assist with pulling briefs up.) On/Off Footwear (QC): 1 (Pt dependent for tasks. She did not attempt any parts, stating she is unable to reach her feet. OT dependently donned/doffed shoes, socks, and compression hose.) Toileting Hygiene (QC): 1 (Pt attemped toilet hygiene but required assistance for thoroughness. X2 assist during task, 1 to assist with balance, and 1 to assist with hygiene and clothing management. ) Toilet Transfer (QC): 1 (Mod A x2) Assessment/Plan Assessment and Plan Assess & Plan/Chief Complaint Assessment: Debility DM neuropathy DM insulin dependency on insulin pump UTI recurrent type Loose stools Urinary retention requiring Dr Bardales consultation Anemia Hypokalemia Plan: Completed Rocephin Bladder meds per Urology Home meds Potassium supplement (1) Weakness generalized Status: Acute (2) UTI (urinary tract infection) Status: Acute (3) CAD (coronary artery disease) (4) On continuous oral anticoagulation (5) SSS (sick sinus syndrome) Status: Chronic (6) Hypertension Status: Acute (7) Diabetic neuropathy Status: Acute (8) IDDM (insulin dependent diabetes mellitus) Status: Acute (9) Coronary artery disease Status: Chronic (10) Multi-vessel coronary artery stenosis Status: Acute (11) Peripheral vascular disease Status: Acute (12) Dizziness Status: Acute (13) History of ESBL E. coli infection Status: Chronic KIMMY HANSON DO Sep 30, 2019 09:00
--- NOTE | 2019-09-30 09:00 | Individualized Plan of Care ---
Individualized Plan of Care Rehab Nursing IPOC Order Admission Date Sep 29, 2019 at 11:30 Current Orders Orders Admission Order(Inpt,Obs,Sdc) (09/29/19 11:01) Vital Signs: Per Unit Policy ( 08,16,00 (09/29/19 11:01) Figueroa Hummel , (09/29/19 11:01) Sequential Compression Device Q4H (09/29/19 11:01) Folded Towel Machine Operator-Inpt Rehab Con (09/29/19 11:01) Rehab Nursing Orders-Ipoc (09/29/19 11:01) Physical Therapy Rehab Orders (09/29/19 11:01) Occupational Therapy Rehab Ord (09/29/19 11:01) Speech Therapy Rehab Orders (09/29/19:) Cbc With Automated Diff (09/30/19 06:00) Comprehensive Metabolic Panel (09/30/19 06:00) Intake & Output 06,14,22 (09/29/19 11:01) Precautions (Aru) (09/29/19 11:01) Weekly Weight WEEK (09/29/19 11:01) Rehab-Intensity Of Therapy (09/29/19 11:01) Initiate Admission Nursing Pro .admission (09/29/19 11:01) Alprazolam Tablet (Xanax Tablet) (09/29/19 11:15) Calcium Carbonate Chew Tablet (Antacid C (09/29/19 11:15) Docusate Sodium Capsule (Colace Capsule) (09/29/19 21:00) Docusate Sodium Capsule (Colace Capsule) (09/29/19 11:15) Bisacodyl Suppository (Dulcolax Supposit (09/29/19 11:15) Lactulose Oral Solution (Enulose Oral So (09/29/19 11:15) Na Phos/Na Biphos Enema (Fleet Enema Lenard (09/29/19 11:15) Loperamide Tablet (Imodium Tablet) (09/29/19 11:15) Enoxaparin Injection (Lovenox Injection) (09/29/19 11:15) Melatonin Tablet (Melatonin Tablet) (09/29/19 11:15) Polyethylene Glycol Powder Pkt (Miralax (09/29/19 21:00) Senna S Tablet (Senokot S Tablet) (09/29/19 21:00) Initiate Admission Nursing Pro .admission (09/29/19 11:01) Admission Arrival Bed Request (09/29/19 11:30) Patient Visit (09/29/19 ) Pt Eval Moderate Complexity (09/29/19 ) Patient Visit (09/29/19 ) Speech Sound Lang Comp (09/29/19 ) Code/Resuscitation (09/29/19 13:48) Catheter(Urinary) Discontinue (09/29/19 13:48) Cho 60g/M 3snack (16-2000 Jacob) (09/29/19 Dinner) Allopurinol Tablet (Zyloprim Tablet) (09/30/19 09:00) Apixaban Tablet (Eliquis Tablet) (09/29/19 21:00) Clopidogrel Tablet (Plavix Tablet) (09/30/19 09:00) Diazepam Tablet (Valium Tablet) (09/29/19 14:00) Midodrine Tablet (Proamatine) (09/29/19 17:00) Polyethylene Glycol Powder Pkt (Miralax (09/29/19 14:00) Antacid Suspension (Mylanta Suspension (09/29/19 14:00) Pantoprazole Tablet (Protonix Tablet) (09/30/19 09:00) Ceftriaxone For Iv Use (Rocephin For I (09/29/19 16:00) Rosuvastatin Tablet (Crestor Tablet) (09/29/19 21:00) Sertraline Tablet (Zoloft Tablet) (09/29/19 21:00) Sodium Chloride Flush (Catheter Flush Sy (09/29/19 14:00) Torsemide Tablet (Demadex Tablet) (09/30/19 09:00) Acetaminophen Tablet/Caplet (Tylenol T (09/29/19 14:00) Ondansetron Injection (Zofran Injectio (09/29/19 14:00) Ondansetron Oral Dissolve Tab (Zofran (09/29/19 14:00) Diphenhydramine Tablet (Benadryl Tablet) (09/29/19 14:00) Hydroxyzine Cap/Tab (Vistaril) (09/29/19 14:00) Insulin Aspart (Novolog) (Novolog (Charg (09/29/19 15:00) Metoprolol Succinate (Xl) Tab (Toprol Xl (09/30/19 09:00) Oxycodone Immediate Rel Tablet (Oxyir Ta (09/29/19 14:00) Rt Request For Service (09/29/19 13:48) Consult Cardiology (09/29/19 13:48) Patient Visit (09/29/19 ) Functional Activities, Ea 15 (09/29/19 ) Accucheck Prn (09/29/19 18:22) Consult Urology (09/29/19 18:24) Tamsulosin Capsule (Flomax Capsule) (09/30/19 18:00) Bethanechol Tablet (Urecholine Tablet) (09/30/19 11:00) Potassium Chloride (Tablet) (Klor Con Ta (09/30/19 09:00) Patient Visit (09/30/19 ) Functional Activities, Ea 15 (09/30/19 ) Patient Visit (09/30/19 ) Treat. Speech/Lang/Voice (09/30/19 ) Rehab Nursing Orders: Ongoing Assess. of Cognitive Status, Ongoing Assess. of Function Status, Bladder Scan, Bladder Training, Bowel Management, Bowel Training, Disease Management & Educaiton, DVT Prophylaxis, Fall Prevention, Fluid/Electrolyte/Nutrition Mgmt, Infection Prevention, Medication Management & Education, Management of Risks & Complications, Management of Skin Intergrity, Nutrition Management, Pain Management, Patient/Family Support, Safety Management, Swallow Precautions Intensity of Therapy to be met Patient to be seen: Min.3h per day/5 of 7d PT IPOC Problem List: Activity Tolerance, Functional Strength, Safety, Balance, Gait, Transfer, Bed Mobility, ROM Treatment Plan: Continue Plan of Care Bed Mobility, Education, Functional Activity Sammie, Functional Strength, Group Therapy, Gait, Safety, Therapeutic Exercise, Transfers Treatment Duration: Oct 20, 2019 Frequency: At least 5 of 7 days/Wk (IRF) Estimated Hrs Per Day: 1.5 hours per day OT IPOC Problems: Decreased Activ Tolerance, Decreased Safety Aware, Decreased UE Strength, Impaired Bed Mobility, Impaired Funct Balance, Impaired I ADL's, Impaired Self-Care Skills OT Treatment, Training and Edu: Yes Plan of Care: ADL Retraining, Functional Mobility, Group Exercise/Act as Ind, UE Funct Exercise/Act Treatment Duration: Oct 20, 2019 Frequency: At least 5 of 7 days/Wk (IRF) Estimated Hrs Per Day: 1.5 hours per day [facility] Speech Therapy Treatment Plan: Continue Plan of Care Treatment Duration: Sep 29, 2019 Frequency: 5 times per week Estimated Hrs Per Day: .5 hour per day Folded Towel Machine Operator/Case Mgmt Folded Towel Machine Operator/Case Managemen: Discharge Planning Dietitian/Technical Services Consultant Dietitian/Technical Services Consultant to monitor nutritional status and make changes and/or recommendations as needed and work with speech pathology on dietary upgrades as the occur. Physician IP Medical Issues being managed closely and that require the 24 hour availability of a physician: Recent admit for UTI recurrent type now with retention and requiring close monitoring of sugars on insulin pump Medical Issues: Bowel/Bladder Function, DVT Prophylaxis, Falls Precautions, Fluid/Electrolyte/Nutrition Balance, Infection Protection, Pain Management Brief Synthesis of Preadmission Screen, Post-Admission Evaluation, and Therapy Evaluations: PT OT will help patient regain strength and build confidence and work on ADL's and ambulation in order to return home Medical Prognosis: Good Anticipated Length of Stay: 7 days KIMMY HANSON DO Sep 30, 2019 09:00
[2019-09-30] MEDS: inSUlin ASPART (NovoLOG) 1 UNIT/0.01 ML (CHARGE PER UNIT) SC SCH ×3 (09:30→20:00)
--- NOTE | 2019-09-30 09:30 | NUR ---
Patient called this RN into room and states that her blood sugar is 212 and she is going to give herself 4 units. Will continue to monitor.
--- NOTE | 2019-09-30 10:01 | Physical Therapy Daily Note ---
PT Daily Note-Current Subjective Pt laying Supine in bed upon arrival. Pt agrees to PT/OT co-treat. Pain Location: No Pain Reported Mental Status Patient Orientation: Person, Place, Situation Attachments: Other-See Comments (Insulin Port & Dexacom) Transfers SCALE: Activities may be completed with or without assistive devices. 6-Apewtehfct-jiyxgvw completes the activity by him/herself with no assistance from a helper. 5-Set-up or Clean-up Assistance-helper sets up or cleans up; patient completes activity. Tennyson assists only prior to or following the activity. 4-Supervision or Touching Assistance-helper provides verbal cues and/or touching/steadying and/or contact guard assistance as patient completes activit y. Assistance may be provided throughout the activity or intermittently. 3-Partial/Moderate Assistance-helper does LESS THAN HALF the effort. Tennyson lifts, holds or supports trunk or limbs, but provides less than half the effort. 2-Substantial/Maximal Assistance-helper does MORE THAN HALF the effort. Tennyson lifts or holds trunk or limbs and provides more than half the effort. 7-Bjbuvpwyj-eeheoe does ALL the effort. Patient does none of the effort to complete the activity. Or, the assistance of 2 or more helpers is required for the patient to complete the activity. If activity was not attempted, code reason: 7-Patient Refused. 9-Not Applicable-not attempted and the patient did not perform the activity before the current illness, exacerbation or injury. 10-Not Attempted due to Environmental Limitations-(lack of equipment, weather restraints, etc.). 88-Not Attempted due to Medical Conditions or Safety Concerns. Sit to Lying (QC): 3 Lying to Sitting/Side of Bed(Q: 3 Sit to Stand (QC): 3 Chair/Tem-bk-Ekjyx Xfer(QC): 3 Weight Bearing Right Lower Extremity: Right Full Weight Bearing Left Lower Extremity: Left Full Weight Bearing Treatments OT/PT co-treated due to skilled need of two therapists at time of treatment. OT works on ADLs, UE placement during mobility/transfers. PT working on transfers, mobility and ambulation. Pt agrees to shower. Min A for supine to EOB with HOB raised fully. Assist x2 for sit <--> stand due to retropulsion and pt attempts to sit down before getting to surface even with verbal cues. Assist to propel w/c into bathroom. Assist x2 due to retropulsion to transfer into shower then pt requested to use BSC. Using grabbars, pt able to complete sit to stand by pulling to stand then mod A to have pt SPT thoroughly before sitting. Pt required assist to hike pants down and assist to cleanse self after BM. Pt transferred back into shower and completed shower bathing all areas except buttocks and lower legs/feet. Sitting in w/c, pt completed oral care with set up, unable to squeeze toothpaste onto toothbrush. Pt completed grooming mod I. Pt stated that she has assistance to complete all lower body dressing and donning/doffing bra. AMOS asked pt if she would like to be introduced to lower body dressing equipment and pt stated that she liked how things were done now and did not want to change. Pt then ambulated with assist x2 and began to sit even before turning toward chair. After session, pt sitting in recliner with call light/phone in reach. All needs met in room. Assessment Current Status: Fair Progress Pt continues to remain retropulsive and tries to sit in the middle of a transfer. PT Short Term Goals Short Term Goals Time Frame: Oct 06, 2019 Roll Left & Right: 3 Sit to lyin Lying to sitting on side of be: 3 Sit to stand: 3 Chair/vdk-ur-xppwp transfer: 3 Walk 10 feet: 3 PT Toy Maker Goals Longterm Goals PT Longterm Goals Time Frame: Oct 20, 2019 Roll Left & Right (QC): 4 Sit to Lying (QC): 4 Lying-Sitting on Side/Bed(QC): 4 Sit to Stand (QC): 4 Chair/Tud-rl-Rzkyn Xfer(QC): 4 Car Transfer (QC): 4 Walk 10 feet (QC): 4 Walk 50ft with 2 Turns (QC): 4 PT Plan Problem List Problem List: Activity Tolerance, Functional Strength, Safety, Balance, Gait, Transfer, Bed Mobility Treatment/Plan Treatment Plan: Continue Plan of Care Treatment Plan: Bed Mobility, Education, Functional Activity Sammie, Functional Strength, Group Therapy, Gait, Safety, Therapeutic Exercise, Transfers Treatment Duration: Oct 20, 2019 Frequency: At least 5 of 7 days/Wk (IRF) Estimated Hrs Per Day: 1.5 hours per day Patient and/or Family Agrees t: Yes Safety Risks/Education Patient Education: Transfer Techniques, Correct Positioning, Safety Issues Teaching Recipient: Patient Teaching Methods: Discussion Response to Teaching: Verbalize Understanding Time/GCodes Time In: 900 Time Out: 1030 Total Billed Treatment Time: 90 Total Billed Treatment 1, FA x6 (90m) Co-treat w/OT for 90m LANREOJ CRUZ LUANA Sep 30, 2019 10:01
[2019-09-30] MEDS: KCL 10 MEQ TAB (MICRO K) PO SCH (10:21)
--- NOTE | 2019-09-30 10:44 | Speech Therapy Daily Note ---
Speech Daily Progress Note Subjective Date Seen by Provider: Sep 30, 2019 Time Seen by Provider: 00:30 Patient was alert and actively participated. Objective Patient completed memory tasks regarding general information requiring minimal verbal cues at 60% accuracy. Assessment Assessment Current Status: Good Progress Treatment Plan Continue Plan of Care Speech Short Term Goals Short Term Goals Short Term Goals 1) The patient will complete memory tasks as related to her daily needs at 80% or greater with minimal cues. 2) The patient will complete safety awareness tasks as related to her daily needs at 80% or greater with minimal cues. 3) The patient will complete problem solving tasks as related to her daily needs at 80% or greater with minimal cues. Speech Video Player Mechanic Goals Half-Way Goals Patient will improve cognitive-communication necessary for safety and daily living tasks with minimal assist. Speech-Plan Patient/Family Goals Patient/Family Goals: Patient plans to return to daily living activities upon discharge. Treatment Plan Speech Therapy Treatment Plan: Continue Plan of Care Treatment Duration: Oct 07, 2019 Frequency: 5 times per week Estimated Hrs Per Day: .5 hour per day Rehab Potential: Guarded Barriers to Learning: Patient has moderate cognitive deficits. Safety Risks/Education Teaching Recipient: Patient Teaching Methods: Demonstration, Discussion Response to Teaching: Verbalize Understanding, Return Demonstration Education Topics Provided: Patient demonstrated appropriate following of nursing directions. Time Speech Therapy Time In: 08:30 Speech Therapy Time Out: 09:00 Total Billed Time: 30 Billed Treatment Time 1JOSE EDUARDO [address] Sep 30, 2019 10:44
--- NOTE | 2019-09-30 11:03 | Occupational Ther Daily Note ---
OT Current Status-Daily Note Subjective Pt alert, lying in bed. Pt agrees to therapy. No c/o pain. Blood sugar monitor alerted pt that level was at 212, notified nrsg and pt administered amount of insulin needed. Mental Status/Objective Patient Orientation: Person, Place, Time, Situation Attachments: Mendez Catheter, IV, Other-See Comments (blood sugar pump, dexamon monitor) ADL-Treatment OT/PT co-treated due to skilled need of two therapists at time of treatment. OT works on ADLs, UE placement during mobility/transfers. PT working on transfers, mobility and ambulation. Pt agrees to shower. Min A for supine to EOB with HOB raised fully. Assist x2 for sit <--> stand due to retropulsion and pt attempts to sit down before getting to surface even with verbal cues. Assist to propel w/c into bathroom. Assist x2 due to retropulsion to transfer into shower then pt requested to use BSC. Using grabbars, pt able to complete sit to stand by pulling to stand then mod A to have pt SPT thoroughly before sitting. Pt required assist to hike pants down and assist to cleanse self after BM. Pt transferred back into shower and completed shower bathing all areas except buttocks and lower legs/feet. Sitting in w/c, pt completed oral care with set up, unable to squeeze toothpaste onto toothbrush. Pt completed grooming mod I. Pt stated that she has assistance to complete all lower body dressing and donning/doffing bra. AMOS asked pt if she would like to be introduced to lower body dressing equipment and pt stated that she liked how things were done now and did not want to change. Pt then ambulated with assist x2 and began to sit even before turning toward chair. After session, pt sitting in recliner with call light/phone in reach. All needs met in room. Therapy Code Descriptions/Definitions Functional O'Brien Measure: 0=Not Assessed/NA 4=Minimal Assistance 1=Total Assistance 5=Supervision or Setup 2=Maximal Assistance 6=Modified O'Brien 3=Moderate Assistance 7=Complete IndependenceSCALE: Activities may be completed with or without assistive devices. 6-Tnbnfontkz-tsfnqgw completes the activity by him/herself with no assistance from a helper. 5-Set-up or Clean-up Assistance-helper sets up or cleans up; patient completes activity. [place] assists only prior to or following the activity. 4-Supervision or Touching Assistance-helper provides verbal cues and/or touching/steadying and/or contact guard assistance as patient completes activity. Assistance may be provided throughout the activity or intermittently. 3-Partial/Moderate Assistance-helper does LESS THAN HALF the effort. Flat [place] lifts, holds or supports trunk or limbs, but provides less than half the effort. 2-Substantial/Maximal Assistance-helper does MORE THAN HALF the effort. Flat [place] lifts or holds trunk or limbs and provides more than half the effort. 6-Vmqnythrt-neqvgf does ALL the effort. Patient does none of the effort to complete the activity. Or, the assistance of 2 or more helpers is required for the patient to complete the activity. If activity was not attempted, code reason: 7-Patient Refused. 9-Not Applicable-not attempted and the patient did not perform the activity before the current illness, exacerbation or injury. 10-Not Attempted due to Environmental Limitations-(lack of equipment, weather restraints, etc.). 88-Not Attempted due to Medical Conditions or Safety Concerns. Oral Hygiene (QC): 5 Bathing Location: L Arm, R Arm, L Upper Leg, R Upper Leg, Chest, Abdomen, Perineal Area Shower/Bathe Self (QC): 1 (Assist to stand with one therapist and assist to cleanse by another therapist.) Upper Body Dressing (QC): 3 (Assist to pull down shirt in back. Able to thread arms and head through shirt.) Lower Body Dressing (QC): 1 (Assist x2 to don/doff lower body clothing and hike over hips.) On/Off Footwear: 2 Toileting Hygiene (QC): 1 Toilet Transfer (QC): 1 OT Short Term Goals Short Term Goals Time Frame: Oct 10, 2019 Shower/bathe self: 3 Lower body dressin OT Chcf Goals [employer] Goals Time Frame: Oct 20, 2019 Eating (QC): 6 Oral Hygiene (QC): 6 Toileting Hygiene (QC): 3 Shower/Bathe Self (QC): 4 Upper Body Dressing (QC): 5 Lower Body Dressing (QC): 3 On/Off Footwear (QC): 3 Additional Goals: 1-Demonstrate ADL Tasks, 2-Verbalize Understanding, 3- ImproveStrength/Sammie 1=Demonstrate adherence to instructed precautions during ADL tasks. 2=Patient will verbalize/demonstrate understanding of assistive devices/modifications for ADL. 3=Patient will improve strength/tolerance for activity to enable patient to perform ADL's. OT Education/Plan Problem List/Assessment Assessment: Decreased Activ Tolerance, Decreased Safety Aware, Decreased UE Strength, Dependent Transfers, Impaired Self-Care Skills, Restricted Funct UE ROM Discharge Recommendations Plan/Recommendations: Continue POC Treatment Plan/Plan of Care Patient would benefit from OT for education, treatment and training to promote independence in ADL's, mobility, safety and/or upper extremity function for ADL's. Plan of Care: ADL Retraining, Functional Mobility, Group Exercise/Act as Ind, UE Funct Exercise/Act Treatment Duration: Oct 20, 2019 Frequency: At least 5 of 7 days/Wk (IRF) Estimated Hrs Per Day: 1.5 hours per day Agreement: Yes Rehab Potential: Guarded Time/GCodes Start Time: 09:00 Stop Time: 10:30 Total Time Billed (hr/min): 90 Billed Treatment Time 1 visit-ADL 6 (90 min) KEMAR DEAN Sep 30, 2019 11:02
[2019-09-30] MEDS: BETHANECHOL 10 MG (URECHOLINE) TAB PO SCH ×3 (11:47→20:48)
--- NOTE | 2019-09-30 12:01 | CONSULTATION REPORT ---
DATE OF SERVICE: 09/30/2019 ATTENDING PHYSICIAN: Dr. Blake. SUMMARY: After reviewing the patient's record in the hospital and at the office, this is an 79-year-old white lady known to me for a longtime who has been admitted because of urinary retention and failed trial of voiding with recovery of 1500 mL of urine from her bladder. Also has a history of urinary tract infection. I had seen her previously back in 2014, mostly complaining of the same, history of urinary tract infection but mixed incontinence and overactive bladder. Residual at that time at the office was only 5 mL. I put her on Kegel exercise, Premarin vaginal cream and Toviaz and she was doing great. Last time I saw her at the office was 11/09/2014. She also had ultrasound renal and bladder back in 06/14/2018 and her residual at that time was only 45 mL. IMPRESSION: Neurogenic bladder with retention and history of urinary tract infection and mixed incontinence. PLAN: I will start her on Flomax 0.4 mg daily and Urecholine 10 mg q.i.d. before meals and at bedtime and watch for adverse effect. We will probably give her a trial of voiding maybe on Thursday or so or Thursday and manage accordingly. Job ID: [id number] DocumentID: [id number] Dictated Date: 09/30/2019 09:43:01 Life Skills Educator Date: 09/30/2019 12:00:03 Dictated By: MARTIN GOODSON MD
--- NOTE | 2019-09-30 15:02 | NUR ---
CM/SS ADMISSION Patient was admitted to ARU from [facility] internally 09/29/19 for debility/generalized weakness. Other comorbidities, in part, are IDDM with insulin pump, history of ESBL with multiple and chronic UTI's, severe chronic debility exacerbated by intermittent infections. Patient and her granddaughter Johanna Newman reside together and patient's goal is to return home from ARU. Prior to hospitalization, patient was receiving assistance from Johanna when she was home from work with [facility] appro 38 hours weekly through [employer] during the day. DME: Established 4WW, shower chair, grab bars in bathroom, manual wheelchair. Therapy staff to assess for new assistive device needs during patient stay on ARU relative to home performance and safety. IN-HOME SERVICES: Patient is reportedly current with [facility] services through [employer]. Lamination Technician is Deloris Wheat [phone] and paid caregiver is Monica Murphy. Patient indicates her caregivers are there until about 1600 and then Johanna comes home after work to begin assisting patient as needed. ADVANCED DIRECTIVE: Patient has provided copy of Living Will and DPOA-HC for EMR. Patient agents are grandchildren Johanna Newman and Saturnino Traylor of [place], [place]. INSURED: Medicare, [employer] , [facility]ARMACY: [facility] and [facility] CONTACTS: Grand Rebadaughter, DPOA-HC [address] [place] [address] Saturnino Traylor, Grandson, DPOA-HC [place], [place] [phone] Leela Alejo, Daughter [address] [place] [address] ELOS is 9 days. Patient indicated understanding of the purpose and process of the weekly rehab team conference and it relates to her overall discharge date. While patient was on medical acute status, that care team recommended long term placement which patient refused. Will monitor progress relative to the most appropriate care environment.
--- NOTE | 2019-09-30 15:21 | NUR ---
"RD ASSESSMENT PMHx: CAD; AL; hypercholesterolemia; HTN; TIA; chronic-UTI; c-diff; DM; CA(breast); CKD PT INTERACTION: Pt was awake and pleasant during nutrition assessment. Note this RD saw pt on 09/26 while they were on 4th floor. Refer to that dietary note for initial assessment. Pt states she has been eating better since last assessment. Note avg PO intake of 50% of meals, per chart review. Pt states no issues with nausea/vomiting/constipation since last assessment. Pt states some issues with diarrhea since last assessment. Note last BM was 09/27 and pt currently on bowel regimen of colace BID; senna BID; and miralax BID, per chart review. ABNORMAL NUTRITION-RELATED LAB VALUES LOW: K 3.2; Cl 97; Ca 8.3; Pro 5.5; alb 2.8 HIGH: BUN 19 Est. kcal needs: 1945-4079 kcal | 20-25 kcal/kg Est. Pro needs: 77-96 g Pro | 0.8-1.0 g Pro/kg PES STATEMENT: Inadequate oral intake (NI-2.1) related to loss of appetite | diarrhea as evidenced by pt interview | avg PO intake 50% of meals INTERVENTION: Continue with current diet order of CHO 60g/m 3snack diet. Pt may benefit from nutrition supplementation if PO intake declines. Will continue to follow and reassess as pt needs, intake, and status change. MONITOR/EVALUATE: PO Intake; Plan of Care; Hydration Status; Weight Status; Lab Values Rex Vega, MS, RD, LD"
--- NOTE | 2019-09-30 15:48 | NUR ---
PATIENT STATES BLOOD SUGAR AT THIS TIME IS 167 AND PER HER PROTOCOL SHE WOULD NOT GIVE HERSELF ANY INSULIN. WILL CONTINUE TO MONITOR.
[2019-09-30 16:00] VITALS: BP 127/80
[2019-09-30] MEDS: cefTRIAXone FOR IV USE 1,000 MG in WATER (STERILE) FOR INJECTION 10 ML IV SCH (16:54)
[2019-09-30] MEDS: TAMSULOSIN 0.4 MG (FLOMAX) CAP PO SCH (18:37)
--- NOTE | 2019-09-30 20:00 | NUR ---
pt states blood sugar 179, pt takes own blood sugar
[2019-09-30] MEDS: SERTRALINE 50 MG (ZOLOFT) TABLET PO SCH (20:49)
[2019-09-30] MEDS: ROSUVASTATIN 20 MG (CRESTOR) TABLET PO SCH (20:49)
[2019-10-01 06:00] VITALS: BP 99/61
[2019-10-01] MEDS: BETHANECHOL 10 MG (URECHOLINE) TAB PO SCH ×4 (06:23→20:22)
[2019-10-01] MEDS: KCL 10 MEQ TAB (MICRO K) PO SCH (06:23)
[2019-10-01] MEDS: MIDODRINE 10 MG (PROAMATINE) TAB PO SCH ×2 (06:23→17:24)
[2019-10-01] MEDS: APIXABAN 2.5 MG (ELIQUIS) TABLET PO SCH ×2 (08:40→20:22)
[2019-10-01] MEDS: PANTOPRAZOLE 40 MG (PROTONIX) TAB PO SCH (08:40)
[2019-10-01] MEDS: CLOPIDOGREL 75 MG (PLAVIX) TABLET PO SCH (08:40)
[2019-10-01] MEDS: ALLOPURINOL 100 MG (ZYLOPRIM) TAB PO SCH (08:40)
[2019-10-01] MEDS: TORSEMIDE 20 MG (DEMADEX) TAB PO SCH (08:42)
[2019-10-01] MEDS: polyethylene glycoL POWDER 17 GM (MIRALAX) PACK PO SCH ×2 (08:42→20:23)
[2019-10-01] MEDS: SENNA W/DOCUSATE (SENOKOT S) TABLET PO SCH ×2 (08:42→20:23)
[2019-10-01] MEDS: DOCUSATE SODIUM 100 MG (COLACE) CAP PO SCH ×2 (08:43→20:22)
[2019-10-01] MEDS: inSUlin ASPART (NovoLOG) 1 UNIT/0.01 ML (CHARGE PER UNIT) SC SCH ×3 (10:46→20:21)
--- NOTE | 2019-10-01 10:59 | NUR ---
Shamika is a 79 yo female currently present on inpatient rehab due to weakness, debility, and UTI (ESBL). This patient has been A&O X 3-4 with this nurse but has a very flat affect. She currently has a zepeda in place draining without issues, carlos care completed this morning by this RN. She has been incont. of bowel 2X this morning. She also has significant moisture breakdown noted to coccyx, all areas blanchable, barrier cream is being applied multiple times per day. This nurse has educated patient on moisture prevention and the importance of turning/shifting weight. Shamika has been needing X2 assist with all transfer, she is noted to be very retropulsive. Her BLE were also noted to be very edematous, this nurse applied TEDS and elevated feet. Patient education completed about the importance of decreasing edema. Patient did have a 3.2 potassium level on 09/29 which she is receiving 10 meq of potassium at this time. No further issues noted. This nurse will continue to monitor patient throughout shift.
--- NOTE | 2019-10-01 11:04 | PM&R Progress Note ---
Subjective HPI/CC On Admission Date Seen by Provider: Oct 01, 2019 Time Seen by Provider: 11:15 Subjective/Events-last exam Blood sugars are okay with insulin pump Holding laxatives due to loose stools Dr. Bardales started her on Urecholine and Flomax 2 days ago and will likely attempt to DC zepeda Thursday Potassium 3.2 will be supplemented with 10 mEQ and is tolerating that well Fecal incontinence noted last night Conferred with RN Reviewed therapy notes Checked meds and labs Review of Systems General: Fatigue Gastrointestinal: Diarrhea Neurological: Weakness Objective Exam Vital Signs Vital Signs Date Time Temp Pulse Resp B/P (MAP) Pulse Ox O2 Delivery O2 Flow Rate FiO2 10/01/19 09:00 Room Air 10/01/19 06:00 36.2 62 18 99/61 (74) 93 Capillary Refill : Less Than 3 SecondsLess Than 3 Seconds General Appearance: No Apparent Distress, WD/WN, Chronically ill HEENT: PERRL/EOMI, Normal ENT Inspection, Pharynx Normal Neck: Full Range of Motion, Normal Inspection, Non Tender, Supple, Carotid Bruit Respiratory: Chest Non Tender, Lungs Clear, No Accessory Muscle Use, No R espiratory Distress, Decreased Breath Sounds Cardiovascular: No Edema, No Gallop, No JVD, No Murmur, Normal Peripheral Pulses, Irregularly Irregular Gastrointestinal: Normal Bowel Sounds, No Organomegaly, No Pulsatile Mass, Non Tender, Soft Back: Normal Inspection, No CVA Tenderness, No Vertebral Tenderness Extremity: Normal Capillary Refill, Normal Inspection, Normal Range of Motion, Non Tender, No Calf Tenderness, No Pedal Edema Neurologic/Psychiatric: Alert, Oriented x3, No Motor/Sensory Deficits, ortho rn II- XII Norm as Tested, Abnormal Gait, Depressed Affect, Motor Weakness (generalized weakness of all extremities, slow gait) Skin: Normal Color, Warm/Dry Lymphatic: No Adenopathy Results/Procedures Lab Patient resulted labs reviewed. FIM Transfers Therapy Code Descriptions/Definitions Functional [place] Measure: 0=Not Assessed/NA 4=Minimal Assistance 1=Total Assistance 5=Supervision or Setup 2=Maximal Assistance 6=Modified C[place] 3=Moderate Assistance 7=Complete IndependenceSCALE: Activities may be completed with or without assistive devices. 0-Jcjabbkcae-erkragr completes the activity by him/herself with no assistance from a helper. 5-Set-up or Clean-up Assistance-helper sets up or cleans up; patient completes activity. [place] assists only prior to or following the activity. 4-Supervision or Touching Assistance-helper provides verbal cues and/or touching/steadying and/or contact guard assistance as patient completes activity. Assistance may be provided throughout the activity or intermittently. 3-Partial/Moderate Assistance-helper does LESS THAN HALF the effort. [place] lifts, holds or supports trunk or limbs, but provides less than half the effort. 2-Substantial/Maximal Assistance-helper does MORE THAN HALF the effort. [place] lifts or holds trunk or limbs and provides more than half the effort. 3-Iqvvlkmth-idcrhv does ALL the effort. Patient does none of the effort to complete the activity. Or, the assistance of 2 or more helpers is required for the patient to complete the activity. If activity was not attempted, code reason: 7-Patient Refused. 9-Not Applicable-not attempted and the patient did not perform the activity before the current illness, exacerbation or injury. 10-Not Attempted due to Environmental Limitations-(lack of equipment, weather restraints, etc.). 88-Not Attempted due to Medical Conditions or Safety Concerns. Roll Left to Right (QC): 2 Sit to Lying (QC): 3 Sit to Stand (QC): 3 Chair/Yzf-ce-Hfvtz Xfer(QC): 3 Car Transfer (QC): 88 Gait Training Does the Patient Walk?: Yes Distance: 10 Walk 10 feet (QC): 2 (2x Therapist mod A each) Walk 50 ft with 2 Turns(QC): 88 Walk 150 ft (QC): 88 Walking 10ft/uneven surface-QC: 88 Gait Persons Needed: 2 Gait Assistive Device: FWW Wheelchair Training Does the Pt Use a Wheelchair?: Yes Wheel 50 ft with 2 turns (QC): 1 Wheel 150 ft (QC): 1 Type of Wheelchair: Manual Stair Training 1 Step (curb) (QC): 88 4 Steps (QC): 88 12 Steps (QC): 88 Balance Picking up an Object (QC): 88 ADL-Treatment Eating (QC): 5 (Pt reports she required assistance opening mustard packet.) Oral Hygiene (QC): 5 Bathing Location: L Arm, R Arm, L Upper Leg, R Upper Leg, Chest, Abdomen, Pe rineal Area Shower/Bathe Self (QC): 1 (Assist to stand with one therapist and assist to cleanse by another therapist.) Upper Body Dressing (QC): 3 (Assist to pull down shirt in back. Able to thread arms and head through shirt.) Lower Body Dressing (QC): 1 (Assist x2 to don/doff lower body clothing and hike over hips.) On/Off Footwear (QC): 2 Toileting Hygiene (QC): 1 Toilet Transfer (QC): 1 Assessment/Plan Assessment and Plan Assess & Plan/Chief Complaint Assessment: Debility DM neuropathy DM insulin dependency on insulin pump UTI recurrent type Loose stools Urinary retention requiring Dr Bardales consultation Anemia Hypokalemia replacing Plan: Completed Rocephin Thursday Bladder meds per Urology and will DC Zepeda soon Home meds Potassium supplement (1) Weakness generalized Status: Acute (2) UTI (urinary tract infection) Status: Acute (3) CAD (coronary artery disease) (4) On continuous oral anticoagulation (5) SSS (sick sinus syndrome) Status: Chronic (6) Hypertension Status: Acute (7) Diabetic neuropathy Status: Acute (8) IDDM (insulin dependent diabetes mellitus) Status: Acute (9) Coronary artery disease Status: Chronic (10) Multi-vessel coronary artery stenosis Status: Acute (11) Peripheral vascular disease Status: Acute (12) Dizziness Status: Acute (13) History of ESBL E. coli infection Status: Chronic KIMMY HANSON DO Oct 01, 2019 11:04
--- NOTE | 2019-10-01 12:07 | Physical Therapy Daily Note ---
PT Daily Note-Current Subjective Pt agreeable to PT session Pain Numeric Pain Scale: 0-No Pain Appearance Pt in bed before and after therapy sessions with call light, phone and bedside table duyen simms, LE's elevated per request of nursing due to 2+ pitting edema LE's Mental Status Patient Orientation: Person, Place, Time, Eyes Open, Situation Transfers SCALE: Activities may be completed with or without assistive devices. 9-Mtnzlbubde-dlignbo completes the activity by him/herself with no assistance from a helper. 5-Set-up or Clean-up Assistance-helper sets up or cleans up; patient completes activity. [place] assists only prior to or following the activity. 4-Supervision or Touching Assistance-helper provides verbal cues and/or touching/steadying and/or contact guard assistance as patient completes activity. Assistance may be provided throughout the activity or intermittently. 3-Partial/Moderate Assistance-helper does LESS THAN HALF the effort. [place] l ifts, holds or supports trunk or limbs, but provides less than half the effort. 2-Substantial/Maximal Assistance-helper does MORE THAN HALF the effort. [place] lifts or holds trunk or limbs and provides more than half the effort. 6-Eqepxpezr-owqebi does ALL the effort. Patient does none of the effort to complete the activity. Or, the assistance of 2 or more helpers is required for t he patient to complete the activity. If activity was not attempted, code reason: 7-Patient Refused. 9-Not Applicable-not attempted and the patient did not perform the activity before the current illness, exacerbation or injury. 10-Not Attempted due to Environmental Limitations-(lack of equipment, weather restraints, etc.). 88-Not Attempted due to Medical Conditions or Safety Concerns. Weight Bearing Right Lower Extremity: Right Full Weight Bearing Left Lower Extremity: Left Full Weight Bearing Exercises Supine Ex: Bridging, Ankle pumps, Quad Set, Glut sets, Heel Slides, Short Arc Quads, Scooting, Resisted flex/ext, Straight leg raise, Hip abd/add Supine Reps: 10 Treatments education, safety, bed mobility, strength, ROM Assessment pt requesting to remain in bed for therapy session due to being up earlier and just got back to bed and LE's very swollen but did perform supine ex's with little fatigue PT Short Term Goals Short Term Goals Time Frame: Oct 06, 2019 Roll Left & Right: 3 Sit to lyin Lying to sitting on side of be: 3 Sit to stand: 3 Chair/rxi-hk-tcghn transfer: 3 Walk 10 feet: 3 PT Educational Psychologist Goals Mcc Goals PT Mcc Goals Time Frame: Oct 20, 2019 Roll Left & Right (QC): 4 Sit to Lying (QC): 4 Lying-Sitting on Side/Bed(QC): 4 Sit to Stand (QC): 4 Chair/Ega-xf-Aikmf Xfer(QC): 4 Car Transfer (QC): 4 Walk 10 feet (QC): 4 Walk 50ft with 2 Turns (QC): 4 PT Plan Treatment/Plan Treatment Plan: Continue Plan of Care Treatment Plan: Bed Mobility, Education, Functional Activity Sammie, Functional Strength, Group Therapy, Gait, Safety, Therapeutic Exercise, Transfers Treatment Duration: Oct 20, 2019 Frequency: At least 5 of 7 days/Wk (IRF) Estimated Hrs Per Day: 1.5 hours per day Patient and/or Family Agrees t: Yes Safety Risks/Education Patient Education: Correct Positioning, Safety Issues Teaching Recipient: Patient Teaching Methods: Discussion Response to Teaching: Verbalize Understanding Time/GCodes Time In: 946 Time Out: 1000 Total Billed Treatment Time: 14 Total Billed Treatment 1 visit, EX x14 min SHAYNE FLORES PACKAGING LINE OPERATOR Oct 01, 2019 12:07
[2019-10-01] MEDS: LACTOBACILLUS ACIDOPHILUS (PROBIOTIC) CAPSULE PO SCH ×2 (12:11→17:24)
[2019-10-01 16:00] VITALS: BP 99/62
[2019-10-01] MEDS: TAMSULOSIN 0.4 MG (FLOMAX) CAP PO SCH (17:24)
[2019-10-01 18:30] VITALS: BP 99/62
[2019-10-01] MEDS: SERTRALINE 50 MG (ZOLOFT) TABLET PO SCH (20:22)
[2019-10-01] MEDS: ROSUVASTATIN 20 MG (CRESTOR) TABLET PO SCH (20:22)
--- NOTE | 2019-10-01 20:35 | NUR ---
PT BLOOD SUGAR 134 PER PATIENT
--- NOTE | 2019-10-02 05:17 | NUR ---
pt blood sugar 129
[2019-10-02 06:08] VITALS: BP 104/60
[2019-10-02] MEDS: KCL 10 MEQ TAB (MICRO K) PO SCH (06:25)
[2019-10-02] MEDS: BETHANECHOL 10 MG (URECHOLINE) TAB PO SCH ×4 (06:25→20:36)
[2019-10-02] MEDS: MIDODRINE 10 MG (PROAMATINE) TAB PO SCH ×2 (06:25→17:28)
[2019-10-02] MEDS: CLOPIDOGREL 75 MG (PLAVIX) TABLET PO SCH (08:44)
[2019-10-02] MEDS: LACTOBACILLUS ACIDOPHILUS (PROBIOTIC) CAPSULE PO SCH ×3 (08:45→17:28)
[2019-10-02] MEDS: ALLOPURINOL 100 MG (ZYLOPRIM) TAB PO SCH (08:45)
[2019-10-02] MEDS: PANTOPRAZOLE 40 MG (PROTONIX) TAB PO SCH (08:45)
[2019-10-02] MEDS: APIXABAN 2.5 MG (ELIQUIS) TABLET PO SCH ×2 (08:45→20:36)
[2019-10-02] MEDS: TORSEMIDE 20 MG (DEMADEX) TAB PO SCH (08:46)
[2019-10-02] MEDS: DOCUSATE SODIUM 100 MG (COLACE) CAP PO SCH ×2 (09:00→20:37)
[2019-10-02] MEDS: polyethylene glycoL POWDER 17 GM (MIRALAX) PACK PO SCH ×2 (09:00→20:37)
[2019-10-02] MEDS: SENNA W/DOCUSATE (SENOKOT S) TABLET PO SCH ×2 (09:00→20:37)
[2019-10-02] MEDS: LOPERAMIDE 2 MG (IMODIUM) TABLET PO PRN ×2 (09:15→13:32)
[2019-10-02] MEDS: inSUlin ASPART (NovoLOG) 1 UNIT/0.01 ML (CHARGE PER UNIT) SC SCH ×3 (11:00→19:48)
--- NOTE | 2019-10-02 12:14 | PM&R Progress Note ---
Subjective HPI/CC On Admission Date Seen by Provider: Oct 02, 2019 Time Seen by Provider: 12:15 Subjective/Events-last exam Blood sugars are okay with insulin pump and no significant hypoglycemia episodes noted Loose stools continue Dr. Bardales started her on Urecholine and Flomax 3 days ago and will likely attempt to DC zepeda Thursday Potassium 3.2 will be supplemented with 10 mEQ and is tolerating that well Fecal incontinence noted at night so will add probiotic and add Imodium for trial Blister on buttock is just some shearing so will monitor closely Moving around better Conferred with RN Reviewed therapy notes Checked meds and labs Review of Systems General: Fatigue Gastrointestinal: Diarrhea Neurological: Weakness Objective Exam Vital Signs Vital Signs Date Time Temp Pulse Resp B/P (MAP) Pulse Ox O2 Delivery O2 Flow Rate FiO2 10/02/19 17:32 36.3 71 16 113/59 (77) 95 Room Air Capillary Refill : Less Than 3 SecondsLess Than 3 Seconds General Appearance: No Apparent Distress, WD/WN, Chronically ill HEENT: PERRL/EOMI, Normal ENT Inspection, Pharynx Normal Neck: Full Range of Motion, Normal Inspection, Non Tender, Supple, Carotid Bruit Respiratory: Chest Non Tender, Lungs Clear, No Accessory Muscle Use, No Respiratory Distress, Decreased Breath Sounds Cardiovascular: No Edema, No Gallop, No JVD, No Murmur, Normal Peripheral Pulses, Irregularly Irregular Gastrointestinal: Normal Bowel Sounds, No Organomegaly, No Pulsatile Mass, Non Tender, Soft Back: Normal Inspection, No CVA Tenderness, No Vertebral Tenderness Extremity: Normal Capillary Refill, Normal Inspection, Normal Range of Motion, Non Tender, No Calf Tenderness, No Pedal Edema Neurologic/Psychiatric: Alert, Oriented x3, No Motor/Sensory Deficits, wine maker II- XII Norm as Tested, Abnormal Gait, Depressed Affect, Motor Weakness (generalized weakness of all extremities, slow gait) Skin: Normal Color, Warm/Dry Lymphatic: No Adenopathy Results/Procedures Lab Patient resulted labs reviewed. FIM Transfers Therapy Code Descriptions/Definitions Functional [place] Measure: 0=Not Assessed/NA 4=Minimal Assistance 1=Total Assistance 5=Supervision or Setup 2=Maximal Assistance 6=Modified [place] 3=Moderate Assistance 7=Complete IndependenceSCALE: Activities may be completed with or without assistive devices. 0-Elrjdcjogq-nbewfnj completes the activity by him/herself with no assistance from a helper. 5-Set-up or Clean-up Assistance-helper sets up or cleans up; patient completes activity. [place] assists only prior to or following the activity. 4-Supervision or Touching Assistance-helper provides verbal cues and/or touching/steadying and/or contact guard assistance as patient completes activity. Assistance may be provided throughout the activity or intermittently. 3-Partial/Moderate Assistance-helper does LESS THAN HALF the effort. [place] lifts, holds or supports trunk or limbs, but provides less than half the effort. 2-Substantial/Maximal Assistance-helper does MORE THAN HALF the effort. [place] lifts or holds trunk or limbs and provides more than half the effort. 5-Latdqbpxg-zckwgn does ALL the effort. Patient does none of the effort to complete the activity. Or, the assistance of 2 or more helpers is required for the patient to complete the activity. If activity was not attempted, code reason: 7-Patient Refused. 9-Not Applicable-not attempted and the patient did not perform the activity before the current illness, exacerbation or injury. 10-Not Attempted due to Environmental Limitations-(lack of equipment, weather restraints, etc.). 88-Not Attempted due to Medical Conditions or Safety Concerns. Roll Left to Right (QC): 2 Sit to Lying (QC): 3 Sit to Stand (QC): 3 Chair/Tue-ca-Novzw Xfer(QC): 3 Car Transfer (QC): 88 Gait Training Does the Patient Walk?: Yes Distance: 10 Walk 10 feet (QC): 2 (2x Therapist mod A each) Walk 50 ft with 2 Turns(QC): 88 Walk 150 ft (QC): 88 Walking 10ft/uneven surface-QC: 88 Gait Persons Needed: 2 Gait Assistive Device: FWW Wheelchair Training Does the Pt Use a Wheelchair?: Yes Wheel 50 ft with 2 turns (QC): 1 Wheel 150 ft (QC): 1 Type of Wheelchair: Manual Stair Training 1 Step (curb) (QC): 88 4 Steps (QC): 88 12 Steps (QC): 88 Balance Picking up an Object (QC): 88 ADL-Treatment Eating (QC): 5 (Pt reports she required assistance opening mustard packet.) Oral Hygiene (QC): 5 Bathing Location: L Arm, R Arm, L Upper Leg, R Upper Leg, Chest, Abdomen, Perineal Area Shower/Bathe Self (QC): 1 (Assist to stand with one therapist and assist to cleanse by another therapist.) Upper Body Dressing (QC): 3 (Assist to pull down shirt in back. Able to thread arms and head through shirt.) Lower Body Dressing (QC): 1 (Assist x2 to don/doff lower body clothing and hike over hips.) On/Off Footwear (QC): 2 Toileting Hygiene (QC): 1 Toilet Transfer (QC): 1 Assessment/Plan Assessment and Plan Assess & Plan/Chief Complaint Assessment: Debility DM neuropathy DM insulin dependency on insulin pump UTI recurrent type completed abx Rocephin Loose stools added probiotic Urinary retention requiring Dr Bardales consultation Anemia Hypokalemia replacing Plan: Completed Rocephin Thursday Bladder meds per Urology and will DC Zepeda soon Home meds Potassium supplement Check labs in am (1) Weakness generalized Status: Acute (2) UTI (urinary tract infection) Status: Acute (3) CAD (coronary artery disease) (4) On continuous oral anticoagulation (5) SSS (sick sinus syndrome) Status: Chronic (6) Hypertension Status: Acute (7) Diabetic neuropathy Status: Acute (8) IDDM (insulin dependent diabetes mellitus) Status: Acute (9) Coronary artery disease Status: Chronic (10) Multi-vessel coronary artery stenosis Status: Acute (11) Peripheral vascular disease Status: Acute (12) Dizziness Status: Acute (13) History of ESBL E. coli infection Status: Chronic KIMMY HANSON DO Oct 02, 2019 12:14
[2019-10-02] MEDS: TAMSULOSIN 0.4 MG (FLOMAX) CAP PO SCH (17:28)
[2019-10-02 17:32] VITALS: BP 113/59
[2019-10-02] MEDS: ROSUVASTATIN 20 MG (CRESTOR) TABLET PO SCH (20:36)
[2019-10-02] MEDS: SERTRALINE 50 MG (ZOLOFT) TABLET PO SCH (20:37)
[2019-10-03 05:49] VITALS: BP 106/54
[2019-10-03] MEDS: KCL 10 MEQ TAB (MICRO K) PO SCH ×2 (06:12→18:02)
[2019-10-03] MEDS: MIDODRINE 10 MG (PROAMATINE) TAB PO SCH ×2 (06:12→18:02)
[2019-10-03] MEDS: BETHANECHOL 10 MG (URECHOLINE) TAB PO SCH ×4 (06:12→20:56)
--- NOTE | 2019-10-03 06:14 | NUR ---
pt states blood sugar 131
[2019-10-03 07:35] LABS: BASOPHILS % (AUTO) 0 % (0-10); EOSINOPHILS # (AUTO) 0.2 10^3/uL (0.0-0.3); EOSINOPHILS % (AUTO) 3 % (0-10); HEMATOCRIT 36 % (35-52); HEMOGLOBIN 10.8 G/DL (11.5-16.0); LYMPHOCYTES # (AUTO) 1.7 X 10^3 (1.0-4.0); LYMPHOCYTES % (AUTO) 27 % (12-44); MEAN CORPUSCULAR HEMOGLOBIN 24 PG (25-34); MEAN CORPUSCULAR HGB CONC 30 G/DL (32-36); MEAN CORPUSCULAR VOLUME 80 FL (80-99); MEAN PLATELET VOLUME 9.5 FL (7.4-10.4); MONOCYTES # (AUTO) 0.8 X 10^3 (0.0-1.0); MONOCYTES % (AUTO) 12 % (0-12); NEUTROPHILS # (AUTO) 3.7 X 10^3 (1.8-7.8); NEUTROPHILS % (AUTO) 58 % (42-75); PLATELET COUNT 178 10^3/uL (130-400); RED CELL DISTRIBUTION WIDTH 28.5 % (10.0-14.5); WHITE BLOOD COUNT 6.3 10^3/uL (4.3-11.0)
[2019-10-03 07:51] LABS: ALBUMIN 2.9 GM/DL (3.2-4.5); BILIRUBIN,TOTAL 0.5 MG/DL (0.1-1.0); CALCIUM 8.6 MG/DL (8.5-10.1); CREATININE SERUM 2.07 MG/DL (0.60-1.30); POTASSIUM 3.1 MMOL/L (3.6-5.0); TOTAL PROTEIN 5.6 GM/DL (6.4-8.2)
--- NOTE | 2019-10-03 08:06 | Speech Therapy Daily Note ---
Speech Daily Progress Note Subjective Date Seen by Provider: Oct 03, 2019 Time Seen by Provider: 00:15 Patient was resting in her bed after eating her breakfast. Objective Patient completed a series of q/a for recall of events over the weekend with minimal cuing. Assessment Assessment Current Status: Good Progress Treatment Plan Continue Plan of Care Speech Short Term Goals Short Term Goals Short Term Goals 1) The patient will complete memory tasks as related to her daily needs at 80% or greater with minimal cues. 2) The patient will complete safety awareness tasks as related to her daily needs at 80% or greater with minimal cues. 3) The patient will complete problem solving tasks as related to her daily needs at 80% or greater with minimal cues. Speech Temperature Regulator Goals Temperature Regulator Goals Patient will improve cognitive-communication necessary for safety and daily living tasks with minimal assist. Speech-Plan Patient/Family Goals Patient/Family Goals: Patient plans on returning to her prior living arrangement upon hospital discharge. Treatment Plan Speech Therapy Treatment Plan: Continue Plan of Care Treatment Duration: Sep 29, 2019 Frequency: 5 times per week Estimated Hrs Per Day: .5 hour per day Rehab Potential: Guarded Barriers to Learning: Patient has cognitive deficits. Pt/Family Agrees to Plan: Yes Safety Risks/Education Teaching Recipient: Patient Teaching Methods: Demonstration, Discussion Response to Teaching: Verbalize Understanding, Return Demonstration Education Topics Provided: Safety within her room and communication of wants/needs. Time Speech Therapy Time In: 07:15 Speech Therapy Time Out: 07:30 Total Billed Time: 15 Billed Treatment Time 1JOSE EDU[address] Oct 03, 2019 08:06
[2019-10-03] MEDS: ALLOPURINOL 100 MG (ZYLOPRIM) TAB PO SCH (08:35)
[2019-10-03] MEDS: APIXABAN 2.5 MG (ELIQUIS) TABLET PO SCH ×2 (08:35→20:56)
[2019-10-03] MEDS: CLOPIDOGREL 75 MG (PLAVIX) TABLET PO SCH (08:35)
[2019-10-03] MEDS: TORSEMIDE 20 MG (DEMADEX) TAB PO SCH (08:36)
[2019-10-03] MEDS: LACTOBACILLUS ACIDOPHILUS (PROBIOTIC) CAPSULE PO SCH ×3 (08:36→18:02)
[2019-10-03] MEDS: PANTOPRAZOLE 40 MG (PROTONIX) TAB PO SCH (08:36)
[2019-10-03] MEDS: DOCUSATE SODIUM 100 MG (COLACE) CAP PO SCH ×2 (09:24→21:01)
[2019-10-03] MEDS: SENNA W/DOCUSATE (SENOKOT S) TABLET PO SCH (09:25)
[2019-10-03] MEDS: polyethylene glycoL POWDER 17 GM (MIRALAX) PACK PO SCH (09:25)
[2019-10-03] MEDS: inSUlin ASPART (NovoLOG) 1 UNIT/0.01 ML (CHARGE PER UNIT) SC SCH ×3 (10:00→20:00)
--- NOTE | 2019-10-03 10:10 | PM&R Progress Note ---
Subjective HPI/CC On Admission Date Seen by Provider: Oct 03, 2019 Time Seen by Provider: 10:00 Subjective/Events-last exam Blood sugars are okay with insulin pump and no significant hypoglycemia episodes noted Loose stools continue but improved so will start [facility] BID Dr. Bardales DC catheter and maintained on Urecholine and Pyridium Potassium decrease will be supplemented with 10 mEQ BID and is tolerating that well Blister on buttock is just some shearing so will monitor closely Moving around better Conferred with RN Reviewed therapy notes Checked meds and labs Review of Systems General: Fatigue Gastrointestinal: Diarrhea Objective Exam Vital Signs Vital Signs Date Time Temp Pulse Resp B/P (MAP) Pulse Ox O2 Delivery O2 Flow Rate FiO2 10/03/19 17:00 36.7 60 14 102/64 (77) 94 Room Air Capillary Refill : Less Than 3 SecondsLess Than 3 Seconds General Appearance: No Apparent Distress, WD/WN, Chronically ill HEENT: PERRL/EOMI, Normal ENT Inspection, Pharynx Normal Neck: Full Range of Motion, Normal Inspection, Non Tender, Supple, Carotid Bruit Respiratory: Chest Non Tender, Lungs Clear, No Accessory Muscle Use, No Respiratory Distress, Decreased Breath Sounds Cardiovascular: No Edema, No Gallop, No JVD, No Murmur, Normal Peripheral Pulses, Irregularly Irregular Gastrointestinal: Normal Bowel Sounds, No Organomegaly, No Pulsatile Mass, Non Tender, Soft Back: Normal Inspection, No CVA Tenderness, No Vertebral Tenderness Extremity: Normal Capillary Refill, Normal Inspection, Normal Range of Motion, Non Tender, No Calf Tenderness, No Pedal Edema Neurologic/Psychiatric: Alert, Oriented x3, No Motor/Sensory Deficits, 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 FIM Transfers Therapy Code Descriptions/Definitions Functional [place] Measure: 0=Not Assessed/NA 4=Minimal Assistance 1=Total Assistance 5=Supervision or Setup 2=Maximal Assistance 6=Modified [place] 3=Moderate Assistance 7=Complete IndependenceSCALE: Activities may be completed with or without assistive devices. 0-Gnrzowsqoj-znedtxt completes the activity by him/herself with no assistance from a helper. 5-Set-up or Clean-up Assistance-helper sets up or cleans up; patient completes activity. [place] assists only prior to or following the activity. 4-Supervision or Touching Assistance-helper provides verbal cues and/or touching/steadying and/or contact guard assistance as patient completes activity. Assistance may be provided throughout the activity or intermittently. 3-Partial/Moderate Assistance-helper does LESS THAN HALF the effort. [place] lif ts, holds or supports trunk or limbs, but provides less than half the effort. 2-Substantial/Maximal Assistance-helper does MORE THAN HALF the effort. [place] lifts or holds trunk or limbs and provides more than half the effort. 1-Heidkiqyb-ftjvfz does ALL the effort. Patient does none of the effort to complete the activity. Or, the assistance of 2 or more helpers is required for the patient to complete the activity. If activity was not attempted, code reason: 7-Patient Refused. 9-Not Applicable-not attempted and the patient did not perform the activity before the current illness, exacerbation or injury. 10-Not Attempted due to Environmental Limitations-(lack of equipment, weather restraints, etc.). 88-Not Attempted due to Medical Conditions or Safety Concerns. Roll Left to Right (QC): 2 Sit to Lying (QC): 3 Sit to Stand (QC): 3 Chair/Qhh-yz-Zcpcs Xfer(QC): 3 Car Transfer (QC): 88 Gait Training Does the Patient Walk?: Yes Distance: 10 Walk 10 feet (QC): 2 (2x Therapist mod A each) Walk 50 ft with 2 Turns(QC): 88 Walk 150 ft (QC): 88 Walking 10ft/uneven surface-QC: 88 Gait Persons Needed: 2 Gait Assistive Device: FWW Wheelchair Training Does the Pt Use a Wheelchair?: Yes Wheel 50 ft with 2 turns (QC): 1 Wheel 150 ft (QC): 1 Type of Wheelchair: Manual Stair Training 1 Step (curb) (QC): 88 4 Steps (QC): 88 12 Steps (QC): 88 Balance Picking up an Object (QC): 88 ADL-Treatment Eating (QC): 5 (Pt reports she required assistance opening mustard packet.) Oral Hygiene (QC): 5 Bathing Location: L Arm, R Arm, L Upper Leg, R Upper Leg, Chest, Abdomen, Perineal Area Shower/Bathe Self (QC): 1 (Assist to stand with one therapist and assist to cleanse by another therapist.) Upper Body Dressing (QC): 3 (Assist to pull down shirt in back. Able to thread arms and head through shirt.) Lower Body Dressing (QC): 1 (Assist x2 to don/doff lower body clothing and hike over hips.) On/Off Footwear (QC): 2 Toileting Hygiene (QC): 1 Toilet Transfer (QC): 1 Assessment/Plan Assessment and Plan Assess & Plan/Chief Complaint Assessment: Debility DM neuropathy DM insulin dependency on insulin pump UTI recurrent type completed abx Rocephin Loose stools added probiotic Urinary retention requiring Dr Bardales consultation now DC zepeda and monitor PVR Anemia Hypokalemia replacing Plan: Completed Rocephin Thursday Bladder meds per Urology and will DC Zepeda Home meds Potassium supplement BID (1) Weakness generalized Status: Acute (2) UTI (urinary tract infection) Status: Acute (3) CAD (coronary artery disease) (4) On continuous oral anticoagulation (5) SSS (sick sinus syndrome) Status: Chronic (6) Hypertension Status: Acute (7) Diabetic neuropathy Status: Acute (8) IDDM (insulin dependent diabetes mellitus) Status: Acute (9) Coronary artery disease Status: Chronic (10) Multi-vessel coronary artery stenosis Status: Acute (11) Peripheral vascular disease Status: Acute (12) Dizziness Status: Acute (13) History of ESBL E. coli infection Status: Chronic KIMMY HANSON DO Oct 03, 2019 10:10
--- NOTE | 2019-10-03 10:50 | Physical Therapy Daily Note ---
PT Daily Note-Current Subjective Pt agreeable to to PT/OT co tx session. Pain Numeric Pain Scale: 0-No Pain Appearance Upon arrival, pt in bed awake and alert, requesting and assisted to toilet then shower then toilet again. At end of session, pt sitting up in recliner with LE's elevated, chair alarm activated, daughter present, call light, phone and bedside table within reach. Mental Status Patient Orientation: Person, Place, Time, Eyes Open, Situation Attachments: Saline Lock, Mendez Catheter, Other-See Comments (diabetic pump) Transfers SCALE: Activities may be completed with or without assistive devices. 5-Ircisqmhmz-axpqadm completes the activity by him/herself with no assistance from a helper. 5-Set-up or Clean-up Assistance-helper sets up or cleans up; patient completes activity. [place] assists only prior to or following the activity. 4-Supervision or Touching Assistance-helper provides verbal cues and/or touching/steadying and/or contact guard assistance as patient completes activity. Assistance may be provided throughout the activity or intermittently. 3-Partial/Moderate Assistance-helper does LESS THAN HALF the effort. [place] lifts, holds or supports trunk or limbs, but provides less than half the effort. 2-Substantial/Maximal Assistance-helper does MORE THAN HALF the effort. [place] lifts or holds trunk or limbs and provides more than half the effort. 4-Ouxysytsh-finjsl does ALL the effort. Patient does none of the effort to complete the activity. Or, the assistance of 2 or more helpers is required for the patient to complete the activity. If activity was not attempted, code reason: 7-Patient Refused. 9-Not Applicable-not attempted and the patient did not perform the activity before the current illness, exacerbation or injury. 10-Not Attempted due to Environmental Limitations-(lack of equipment, weather restraints, etc.). 88-Not Attempted due to Medical Conditions or Safety Concerns. Roll Left & Right (QC): 3 Lying to Sitting/Side of Bed(Q: 2 Sit to Stand (QC): 3 Chair/Xuq-rz-Mphlg Xfer(QC): 3 Toilet Transfer (QC): 3 pt requiring skiled verb inst for hand placement and technique for safety and performance with all transitions. Pt requiring motivation and encouragement to attempt to perform more and put forth increased effort during most activities performed. Weight Bearing Right Lower Extremity: Right Full Weight Bearing Left Lower Extremity: Left Full Weight Bearing Gait Training Does the Patient Walk?: Yes Distance: 8 Gait Assistive Device: FWW min to CGA of 2 for safety of pt and therapists due to retro lean/LOB and impulsivity Exercises Supine Ex: Ankle pumps, Quad Set, Heel Slides, Straight leg raise, Hip abd/add Supine Reps: 10 (max encouragement required to perform with more effort as pt tends to have minimal movemements) Treatments PT/OT co-treat due to skilled need of two therapists for skilled instruction during ambulation/transfers (assist x2), decreased mobility and safety awareness. OT works on ADLs, UE placement during mobility/transfers. PT working on transfers, mobility and ambulation. Pt agrees to shower. Pt is self- limiting. Min A for supine to EOB with HOB raised fully. Assist x2 for sit < --> stand due to retropulsion and pt attempts to sit down before getting to surface even with verbal cues. Assist to propel w/c into bathroom. Assist x2 due to retropulsion to transfer into shower then pt requested to use toilet. Using grab bars, pt able to complete sit to stand by pulling to stand then mod A to have pt stand pivot transfer completely before sitting. Pt required assist to hike pants down and assist to cleanse self after BM. Pt transferred back into shower and completed shower bathing all areas except buttocks and lower legs/feet. Sitting in w/c, pt completed oral care and grooming mod I. Pt stated that she has assistance to complete all lower body dressing and set up to don bra. AMOS introduced pt to sock aide, pt attempted with verbal and physical cue then stated that she was too worn out to do the 2nd sock, assist to don/doff shoes. Pt then ambulated with assist x2 and began to sit even before turning toward chair. After session, pt sitting in recliner with call light/phone in re ach. All needs met in room. Assessment continues with some retropulsion in standing. Pt demo signs of self limitation, demonstrates ability to complete some activities she sais she cannot do with redirection/distraction or encouragement to do so. Pt was able to begin gait training with FWW this session. PT Short Term Goals Short Term Goals Time Frame: Oct 06, 2019 Roll Left & Right: 3 Sit to lyin Lying to sitting on side of be: 3 Sit to stand: 3 Chair/gbv-ki-jdwll transfer: 3 Walk 10 feet: 3 PT Mcc Goals Habilitation Assistant Goals PT Mcc Goals Time Frame: Oct 20, 2019 Roll Left & Right (QC): 4 Sit to Lying (QC): 4 Lying-Sitting on Side/Bed(QC): 4 Sit to Stand (QC): 4 Chair/Jzx-rc-Nkjoa Xfer(QC): 4 Car Transfer (QC): 4 Walk 10 feet (QC): 4 Walk 50ft with 2 Turns (QC): 4 PT Plan Treatment/Plan Treatment Plan: Continue Plan of Care Treatment Plan: Bed Mobility, Education, Functional Activity Sammie, Functional Strength, Group Therapy, Gait, Safety, Therapeutic Exercise, Transfers Treatment Duration: Oct 20, 2019 Frequency: At least 5 of 7 days/Wk (IRF) Estimated Hrs Per Day: 1.5 hours per day Patient and/or Family Agrees t: Yes Safety Risks/Education Patient Education: Gait Training, Transfer Techniques, Safety Issues Teaching Recipient: Patient Teaching Methods: Demonstration, Discussion Response to Teaching: Verbalize Understanding, Return Demonstration, Reinforcement Needed Time/GCodes Time In: 1000 Time Out: 1130 Total Billed Treatment Time: 90 Total Billed Treatment 1 visit, FA x50 min, GT x15 min, EX x25 min SHAYNE FLORES PTA Oct 03, 2019 10:50
--- NOTE | 2019-10-03 11:14 | Progress Note - Urology ---
Progress Note-Urology Progress Notes/Assess & Plan Progress/Assessment & Plan TOLERATES MEDICINES WELL. TOV TODAY Final Diagnosis URINE RETENTION MARTIN GOODSON MD Oct 03, 2019 11:14
--- NOTE | 2019-10-03 11:45 | Occupational Ther Daily Note ---
OT Current Status-Daily Note Subjective Pt alert, lying in bed. Pt agrees to therapy. Pt is self-limiting when completed ADLs. No c/o pain. Mental Status/Objective Patient Orientation: Person, Situation Attachments: IV, Other-See Comments (diabetic pump and monitor) ADL-Treatment OT/PT co-treated due to skilled need of two therapists for skilled instruction during ambulation/transfers (assist x2), decreased mobility and safety awarenes. OT works on ADLs, UE placement during mobility/transfers. PT working on transfers, mobility and ambulation. Pt agrees to shower. Pt is self-limiting. Min A for supine to EOB with HOB raised fully. Assist x2 for sit <--> stand due to retropulsion and pt attempts to sit down before getting to surface even with verbal cues. Assist to propel w/c into bathroom. Assist x2 due to retropulsion to transfer into shower then pt requested to use BSC. Using grabbars, pt able to complete sit to stand by pulling to stand then mod A to have pt SPT thoroughly before sitting. Pt required assist to hike pants down and assist to cleanse self after BM. Pt transferred back into shower and completed shower bathing all areas except buttocks and lower legs/feet. Sitting in w/c, pt completed oral care and grooming mod I. Pt stated that she has assistance to complete all lower body dressing and set up to don bra. AMOS introduced pt to sock aide, pt attempted with verbal and physical cue then stated that she was too worn out to do the 2nd sock, assist to don/doff shoes. Pt then ambulated with assist x2 and began to sit even before turning toward chair. After session, pt sitting in recliner with call light/phone in reach. All needs met in room. Therapy Code Descriptions/Definitions Functional [place] Measure: 0=Not Assessed/NA 4=Minimal Assistance 1=Total Assistance 5=Supervision or Setup 2=Maximal Assistance 6=Modified [place] 3=Moderate Assistance 7=Complete IndependenceSCALE: Activities may be completed with or without assistive devices. 9-Idbvyberlx-ktbqvqh completes the activity by him/herself with no assistance from a helper. 5-Set-up or Clean-up Assistance-helper sets up or cleans up; patient completes activity. [place] assists only prior to or following the activity. 4-Supervision or Touching Assistance-helper provides verbal cues and/or touching/steadying and/or contact guard assistance as patient completes activity. Assistance may be provided throughout the activity or intermittently. 3-Partial/Moderate Assistance-helper does LESS THAN HALF the effort. [place] lifts, holds or supports trunk or limbs, but provides less than half the effort. 2-Substantial/Maximal Assistance-helper does MORE THAN HALF the effort. [place] lifts or holds trunk or limbs and provides more than half the effort. 7-Bjymubqjp-fijdva does ALL the effort. Patient does none of the effort to complete the activity. Or, the assistance of 2 or more helpers is required for the patient to complete the activity. If activity was not attempted, code reason: 7-Patient Refused. 9-Not Applicable-not attempted and the patient did not perform the activity before the current illness, exacerbation or injury. 10-Not Attempted due to Environmental Limitations-(lack of equipment, weather restraints, etc.). 88-Not Attempted due to Medical Conditions or Safety Concerns. Oral Hygiene (QC): 6 Bathing Location: L Arm, R Arm, L Upper Leg, R Upper Leg, Chest, Abdomen, Perineal Area Shower/Bathe Self (QC): 1 (Assist to go from sit to stand using grabbars then CGA for safety and assist to cleanse buttocks.) Upper Body Dressing (QC): 5 Lower Body Dressing (QC): 1 (Assist x2 to stand and hike pants over hips.) On/Off Footwear: 2 Toileting Hygiene (QC): 1 (Assist to stand and assist to cleanse buttocks.) Toilet Transfer (QC): 1 (Pt tends to attempt to sit before getting to seat, assist x2 for safety.) Other Treatment Light resistance theraband placed beside pt for exercises. PT completed lower body exercises. Education OT Patient Education: Use of adapted equipment Teaching Recipient: Patient, Family Teaching Methods: Demonstration, Discussion Response to Teaching: Verbalize Understanding, Return Demonstration, Reinforcement Needed OT Short Term Goals Short Term Goals Time Frame: Oct 10, 2019 Shower/bathe self: 3 Lower body dressin OT Longterm Goals Orthodontic Technician Goals Time Frame: Oct 20, 2019 Eating (QC): 6 Oral Hygiene (QC): 6 Toileting Hygiene (QC): 3 Shower/Bathe Self (QC): 4 Upper Body Dressing (QC): 5 Lower Body Dressing (QC): 3 On/Off Footwear (QC): 3 Additional Goals: 1-Demonstrate ADL Tasks, 2-Verbalize Understanding, 3- ImproveStrength/Sammie 1=Demonstrate adherence to instructed precautions during ADL tasks. 2=Patient will verbalize/demonstrate understanding of assistive devices/modifications for ADL. 3=Patient will improve strength/tolerance for activity to enable patient to perform ADL's. OT Education/Plan Problem List/Assessment Assessment: Decreased Activ Tolerance, Decreased Safety Aware, Decreased UE Strength, Dependent Transfers, Impaired Bed Mobility, Impaired Cognition, Impaired Coordination, Impaired Funct Balance, Impaired I ADL's, Impaired Self- Care Skills, Restricted Funct UE ROM Discharge Recommendations Plan/Recommendations: Continue POC Treatment Plan/Plan of Care Patient would benefit from OT for education, treatment and training to promote independence in ADL's, mobility, safety and/or upper extremity function for ADL's. Plan of Care: ADL Retraining, Functional Mobility, Group Exercise/Act as Ind, UE Funct Exercise/Act Treatment Duration: Oct 20, 2019 Frequency: At least 5 of 7 days/Wk (IRF) Estimated Hrs Per Day: 1.5 hours per day Agreement: Yes Rehab Potential: Guarded Time/GCodes Start Time: 10:00 Stop Time: 11:30 Total Time Billed (hr/min): 90 Billed Treatment Time 1 visit-ADL 5 (80 min) EX 1 (10 min) KEMAR DEAN Oct 03, 2019 11:45
[2019-10-03] MEDS: CHOLESTYRAMINE 4 GM (QUESTRAN LITE, PREVALITE) PKT PO SCH ×2 (11:53→22:09)
--- NOTE | 2019-10-03 12:50 | Progress Note ---
XIMENA ALBERTO,MED STUDENT 10/03/19 1250: Progress Note IRF Course Ms. Cain is an 79yo female with a hx of A-fib, CAD, [place], HTN, hyperlipidemia, chronic UTI, IDDM, and arthritis who was hospitalized with a UTI . She has a hx of UTI's with ESBL and has had frequent hospital stays. She was admitted to IRF with the goal of altering her cycle of frequent admissions and increasing her strength and conditioning. Prior to admission she was independent living at home and had private caregivers and a granddaughter who lives with her. While in IRF she has been working with PT and OT and has been focusing on mobility, balance, strength and endurance. Per PT she is making fair progress, but still requires moderate assistance to transfer to sitting or to the chair. She has a tendency for retropulsion and to want to sit down during these transfers, and requires 2 caregivers. She is continuing to have loose stools, although she thinks they are improving slightly and she did not take any of her stool softeners today. Potassium still at 3.1 and she continues to take oral supplements. C.diff antigen test was indeterminant, and she remains on contact precautions. She will benefit from continued PT and OT for a further 10-14 days, dependent on continued progress. LYNNE HANSON DO 10/03/19 1942: Supervisory-Addendum Brief Verification & Attestation Participated in pt care: history, MDM, physical Personally performed: exam, history, MDM, supervision of care Care discussed with: Medical Student Procedures: n/a Results interpretation: Verified all documentation Verification and Attestation of Medical Student E/M Service A medical student performed and documented this service in my presence. I rev iewed and verified all information documented by the medical student and made modifications to such information, when appropriate. I personally performed the physical exam and medical decision making. Lynne Hanson Oct 03, 2019,19:42 XIMENA ALBERTO,JESSE STUDENT Oct 03, 2019 12:50 LYNNE HANSON DO Oct 03, 2019 19:42
--- NOTE | 2019-10-03 13:30 | NUR ---
patient returns to bed for d/c of zepeda catheter. 350cc in bag prior to removal. emptied. 10cc saline removed to deflate balloon, catheter removed without incident. carlos care given. will continue to monitor urine output throughout day.
[2019-10-03 17:00] VITALS: BP 102/64
[2019-10-03] MEDS: TAMSULOSIN 0.4 MG (FLOMAX) CAP PO SCH (18:02)
--- NOTE | 2019-10-03 19:20 | NUR ---
bedside report received from MARK MOJICA, assume care of pt
[2019-10-03] MEDS: ROSUVASTATIN 20 MG (CRESTOR) TABLET PO SCH (20:55)
[2019-10-03] MEDS: SERTRALINE 50 MG (ZOLOFT) TABLET PO SCH (20:56)
--- NOTE | 2019-10-03 20:56 | NUR ---
pt refused Colace, states i have had stools all day, family brought in food pt ate 75%.
--- NOTE | 2019-10-03 21:50 | NUR ---
up to toilet per w/c and 2 people assist, voided & had small BM smear, cleaned & back to bed
--- NOTE | 2019-10-03 22:05 | NUR ---
bladder scan showed 196ml urine
--- NOTE | 2019-10-04 02:30 | NUR ---
up to toilet had stool x2 & 10ml clear yellow urine
--- NOTE | 2019-10-04 02:45 | NUR ---
bladder scan showed greater than 400ml
--- NOTE | 2019-10-04 02:50 | NUR ---
straight cath & received 350 ml clear straw colored urine
[2019-10-04 06:00] VITALS: BP_SYST 102; BP_SYST 117; BP_DIAS 117; BP_DIAS 64
[2019-10-04] MEDS: MIDODRINE 10 MG (PROAMATINE) TAB PO SCH ×2 (06:30→17:18)
[2019-10-04] MEDS: KCL 10 MEQ TAB (MICRO K) PO SCH ×2 (06:31→17:18)
[2019-10-04] MEDS: BETHANECHOL 10 MG (URECHOLINE) TAB PO SCH (06:31)
[2019-10-04 08:00] VITALS: BP 112/55
[2019-10-04] MEDS: CLOPIDOGREL 75 MG (PLAVIX) TABLET PO SCH (08:37)
[2019-10-04] MEDS: LACTOBACILLUS ACIDOPHILUS (PROBIOTIC) CAPSULE PO SCH ×3 (08:37→18:31)
[2019-10-04] MEDS: PANTOPRAZOLE 40 MG (PROTONIX) TAB PO SCH (08:37)
[2019-10-04] MEDS: ALLOPURINOL 100 MG (ZYLOPRIM) TAB PO SCH (08:37)
[2019-10-04] MEDS: CHOLESTYRAMINE 4 GM (QUESTRAN LITE, PREVALITE) PKT PO SCH ×2 (08:37→22:28)
[2019-10-04] MEDS: APIXABAN 2.5 MG (ELIQUIS) TABLET PO SCH ×2 (08:39→21:10)
[2019-10-04] MEDS: DOCUSATE SODIUM 100 MG (COLACE) CAP PO SCH ×2 (09:00→21:10)
--- NOTE | 2019-10-04 09:00 | NUR ---
Dr. Blake notified that night nurse reported whitish vaginal drainage. Order obtained for vaginal swab. Dr. Bardales here to see pt & notified of poor urine output and need for straight cath.
--- NOTE | 2019-10-04 09:38 | PM&R Progress Note ---
Subjective HPI/CC On Admission Date Seen by Provider: Oct 04, 2019 Time Seen by Provider: 09:45 Subjective/Events-last exam Neuropathy in feet cause chronic pain issues 3 stools this morning already Questran BID In/Out catheters required due to continued urinary retention so Dr Bardales increased Urecholine to 50mg PO AC/HS PVR 93cc after she went about 20cc's Yeast swab will be initiated for white vaginal DC Conferred with RN Reviewed therapy notes Checked meds and labs Review of Systems General: Fatigue Gastrointestinal: Diarrhea Objective Exam Vital Signs Vital Signs Date Time Temp Pulse Resp B/P (MAP) Pulse Ox O2 Delivery O2 Flow Rate FiO2 10/04/19 18:48 Room Air 10/04/19 16:13 36.0 71 14 110/69 (83) 95 Capillary Refill : Less Than 3 SecondsLess Than 3 Seconds General Appearance: No Apparent Distress, WD/WN, Chronically ill HEENT: PERRL/EOMI, Normal ENT Inspection, Pharynx Normal Neck: Full Range of Motion, Normal Inspection, Non Tender, Supple, Carotid Bruit Respiratory: Chest Non Tender, Lungs Clear, No Accessory Muscle Use, No Respiratory Distress, Decreased Breath Sounds Cardiovascular: No Edema, No Gallop, No JVD, No Murmur, Normal Peripheral Pulses, Irregularly Irregular Gastrointestinal: Normal Bowel Sounds, No Organomegaly, No Pulsatile Mass, Non Tender, Soft Back: Normal Inspection, No CVA Tenderness, No Vertebral Tenderness Extremity: Normal Capillary Refill, Normal Inspection, Normal Range of Motion, Non Tender, No Calf Tenderness, No Pedal Edema Neurologic/Psychiatric: Alert, Oriented x3, No Motor/Sensory Deficits, solutions sales executive II- XII Norm as Tested, Abnormal Gait, Depressed Affect, Motor Weakness (generalized weakness of all extremities, slow gait) Skin: Normal Color, Warm/Dry Lymphatic: No Adenopathy Results/Procedures Lab Patient resulted labs reviewed. FIM Transfers Therapy Code Descriptions/Definitions Functional [place] Measure: 0=Not Assessed/NA 4=Minimal Assistance 1=Total Assistance 5=Supervision or Setup 2=Maximal Assistance 6=Modified [place] 3=Moderate Assistance 7=Complete IndependenceSCALE: Activities may be completed with or without assistive devices. 1-Biudahmely-ieouisb completes the activity by him/herself with no assistance from a helper. 5-Set-up or Clean-up Assistance-helper sets up or cleans up; patient completes activity. [place] assists only prior to or following the activity. 4-Supervision or Touching Assistance-helper provides verbal cues and/or touching/steadying and/or contact guard assistance as patient completes activity. Assistance may be provided throughout the activity or intermittently. 3-Partial/Moderate Assistance-helper does LESS THAN HALF the effort. [place] lifts, holds or supports trunk or limbs, but provides less than half the effort. 2-Substantial/Maximal Assistance-helper does MORE THAN HALF the effort. [place] lifts or holds trunk or limbs and provides more than half the effort. 5-Vjrwyiygj-rwsngn does ALL the effort. Patient does none of the effort to complete the activity. Or, the assistance of 2 or more helpers is required for the patient to complete the activity. If activity was not attempted, code reason: 7-Patient Refused. 9-Not Applicable-not attempted and the patient did not perform the activity before the current illness, exacerbation or injury. 10-Not Attempted due to Environmental Limitations-(lack of equipment, weather restraints, etc.). 88-Not Attempted due to Medical Conditions or Safety Concerns. Roll Left to Right (QC): 3 Sit to Lying (QC): 3 Sit to Stand (QC): 3 Chair/Swq-wa-Mvlev Xfer(QC): 3 Car Transfer (QC): 88 Gait Training Does the Patient Walk?: Yes Distance: 8 Walk 10 feet (QC): 2 (2x Therapist mod A each) Walk 50 ft with 2 Turns(QC): 88 Walk 150 ft (QC): 88 Walking 10ft/uneven surface-QC: 88 Gait Persons Needed: 2 Gait Assistive Device: FWW Wheelchair Training Does the Pt Use a Wheelchair?: Yes Wheel 50 ft with 2 turns (QC): 1 Wheel 150 ft (QC): 1 Type of Wheelchair: Manual Stair Training 1 Step (curb) (QC): 88 4 Steps (QC): 88 12 Steps (QC): 88 Balance Picking up an Object (QC): 88 ADL-Treatment Eating (QC): 5 (Pt reports she required assistance opening mustard packet.) Oral Hygiene (QC): 6 Bathing Location: L Arm, R Arm, L Upper Leg, R Upper Leg, Chest, Abdomen, Perineal Area Shower/Bathe Self (QC): 1 (Assist to go from sit to stand using grabbars then CGA for safety and assist to cleanse buttocks.) Upper Body Dressing (QC): 5 Lower Body Dressing (QC): 1 (Assist x2 to stand and hike pants over hips.) On/Off Footwear (QC): 2 Toileting Hygiene (QC): 1 (Assist to stand and assist to cleanse buttocks.) Toilet Transfer (QC): 1 (Pt tends to attempt to sit before getting to seat, assist x2 for safety.) Assessment/Plan Assessment and Plan Assess & Plan/Chief Complaint Assessment: Debility DM neuropathy DM insulin dependency on insulin pump UTI recurrent type completed abx Rocephin Loose stools added probiotic and Questran Urinary retention requiring Dr Bardales consultation now DC zepeda and monitor PVR with in/out caths Anemia Hypokalemia replacing Plan: Completed Rocephin Thursday Bladder meds per Urology and will complete in/out cath Home meds Potassium supplement BID (1) Weakness generalized Status: Acute (2) UTI (urinary tract infection) Status: Acute (3) CAD (coronary artery disease) (4) On continuous oral anticoagulation (5) SSS (sick sinus syndrome) Status: Chronic (6) Hypertension Status: Acute (7) Diabetic neuropathy Status: Acute (8) IDDM (insulin dependent diabetes mellitus) Status: Acute (9) Coronary artery disease Status: Chronic (10) Multi-vessel coronary artery stenosis Status: Acute (11) Peripheral vascular disease Status: Acute (12) Dizziness Status: Acute (13) History of ESBL E. coli infection Status: Chronic KIMMY HANSON DO Oct 04, 2019 09:38
[2019-10-04] MEDS: inSUlin ASPART (NovoLOG) 1 UNIT/0.01 ML (CHARGE PER UNIT) SC SCH ×3 (10:00→20:28)
--- NOTE | 2019-10-04 10:08 | Progress Note - Urology ---
Progress Note-Urology Progress Notes/Assess & Plan Progress/Assessment & Plan NOT VOIDING WELL. TOLERATES MEDICINES WELL. PLAN INCREASE URECHOLINE TO 50 AC AND HS Final Diagnosis URINE RETENTION MARTIN GOODSON MD Oct 04, 2019 10:08
--- NOTE | 2019-10-04 10:26 | Speech Therapy Daily Note ---
Speech Daily Progress Note Subjective Date Seen by Provider: Oct 04, 2019 Time Seen by Provider: 00:30 Patient was resting in her bed after just receiving a clean up from nursing. Objective Patient answered a series of general information questions with 75% accuracy given minimal cues. Assessment Assessment Current Status: Good Progress Treatment Plan Continue Plan of Care Speech Short Term Goals Short Term Goals Short Term Goals 1) The patient will complete memory tasks as related to her daily needs at 80% or greater with minimal cues. 2) The patient will complete safety awareness tasks as related to her daily needs at 80% or greater with minimal cues. 3) The patient will complete problem solving tasks as related to her daily needs at 80% or greater with minimal cues. Speech Prison Goals Camp Counselor Goals Patient will improve cognitive-communication necessary for safety and daily living tasks with minimal assist. Speech-Plan Patient/Family Goals Patient/Family Goals: Patient plans on returning to her home where she lives with family upon discharge. Treatment Plan Speech Therapy Treatment Plan: Continue Plan of Care Treatment Duration: Sep 29, 2019 Frequency: 5 times per week Estimated Hrs Per Day: .5 hour per day Rehab Potential: Guarded Barriers to Learning: Patient has moderate cognitive deficits, however she is progressing Pt/Family Agrees to Plan: Yes Safety Risks/Education Teaching Recipient: Patient Teaching Methods: Demonstration, Discussion Response to Teaching: Verbalize Understanding, Return Demonstration Education Topics Provided: Continued safety and communication of wants/needs Time Speech Therapy Time In: 08:30 Speech Therapy Time Out: 09:00 Total Billed Time: 30 Billed Treatment Time 1, LORETTA Barajas Oct 04, 2019 10:26
[2019-10-04] MEDS ORDERED: BETHANECHOL 10 MG (URECHOLINE) TAB PO SCH (11:00)
--- NOTE | 2019-10-04 11:16 | Occupational Ther Daily Note ---
OT Current Status-Daily Note Subjective Pt alert, lying in bed. Pt agrees to therapy. No c/o pain at this time. Mental Status/Objective Patient Orientation: Person Attachments: IV, Other-See Comments (diabetic monitor and pump) ADL-Treatment OT/PT co-treated due to skilled need of two therapists for skilled instruction during ambulation/transfers (assist x2), decreased mobility and safety awarene ss. OT works on ADLs, UE placement during mobility/transfers, functional dynamic standing and UE strengthening. PT working on transfers, mobility, LE strengthening and ambulation. Pt is self-limiting. Min A for supine to EOB with HOB raised fully. Assist x2 for sit <--> stand due to retropulsion and pt attempts to sit down before getting to surface even with verbal cues. Assist x2 to ambulate into bathroom into bathroom. Assist x2 due to retropulsion to transfer onto toilet. Using grabbars, pt able to complete sit to stand by pulling to stand then mod A to have pt SPT thoroughly before sitting. Pt required assist to hike pants down and assist to cleanse self after BM. Sitting in w/c, pt completed oral care and grooming mod I. Assistance x2 to complete all lower body dressing, min A to pull shirt down and min A to don bra. Max A to don/doff socks. After session, pt sitting in recliner with call light/phone in reach. All needs met in room. Therapy Code Descriptions/Definitions Functional [place] Measure: 0=Not Assessed/NA 4=Minimal Assistance 1=Total Assistance 5=Supervision or Setup 2=Maximal Assistance 6=Modified [place] 3=Moderate Assistance 7=Complete IndependenceSCALE: Activities may be completed with or without assistive devices. 3-Gwpzitizdf-ebqeiju completes the activity by him/herself with no assistance from a helper. 5-Set-up or Clean-up Assistance-helper sets up or cleans up; patient completes activity. [place] assists only prior to or following the activity. 4-Supervision or Touching Assistance-helper provides verbal cues and/or touching/steadying and/or contact guard assistance as patient completes activity. Assistance may be provided throughout the activity or intermittently. 3-Partial/Moderate Assistance-helper does LESS THAN HALF the effort. [place] lifts, holds or supports trunk or limbs, but provides less than half the effort. 2-Substantial/Maximal Assistance-helper does MORE THAN HALF the effort. [place] lifts or holds trunk or limbs and provides more than half the effort. 9-Awjlyrdpu-snqbpb does ALL the effort. Patient does none of the effort to complete the activity. Or, the assistance of 2 or more helpers is required for the patient to complete the activity. If activity was not attempted, code reason: 7-Patient Refused. 9-Not Applicable-not attempted and the patient did not perform the activity before the current illness, exacerbation or injury. 10-Not Attempted due to Environmental Limitations-(lack of equipment, weather restraints, etc.). 88-Not Attempted due to Medical Conditions or Safety Concerns. Oral Hygiene (QC): 6 Upper Body Dressing (QC): 3 Lower Body Dressing (QC): 1 On/Off Footwear: 2 Toileting Hygiene (QC): 1 Toilet Transfer (QC): 1 Other Treatment Pt propelled w/c to door of room then required assist to propel to therapy gym. Pt working on standing balance while completing gross motor UE strengthening. Pt required multiple cue to complete correctly and max encouragement to complete task to its entirety. Pt stated that she was tired and this was stupid." PT/OT educated pt on strengthening and increasing independence at home. Pt then worked on squats in parallel bars to strengthen UE/LE. Pt completed 2 and sat down and stated that she was done and wasn't doing any more. Assist to propel back to room. After session, pt sitting in recliner with call light and phone in reach. All needs met in room. OT Short Term Goals Short Term Goals Time Frame: Oct 10, 2019 Shower/bathe self: 3 Lower body dressin OT Senior Living Goals Panel Monitor Goals Time Frame: Oct 20, 2019 Eating (QC): 6 Oral Hygiene (QC): 6 Toileting Hygiene (QC): 3 Shower/Bathe Self (QC): 4 Upper Body Dressing (QC): 5 Lower Body Dressing (QC): 3 On/Off Footwear (QC): 3 Additional Goals: 1-Demonstrate ADL Tasks, 2-Verbalize Understanding, 3- ImproveStrength/Sammie 1=Demonstrate adherence to instructed precautions during ADL tasks. 2=Patient will verbalize/demonstrate understanding of assistive devices/modifications for ADL. 3=Patient will improve strength/tolerance for activity to enable patient to perform ADL's. OT Education/Plan Problem List/Assessment Assessment: Decreased Activ Tolerance, Decreased Safety Aware, Decreased UE Strength, Dependent Transfers, Impaired Bed Mobility, Impaired Cognition, Impaired Coordination, Impaired Funct Balance, Impaired I ADL's, Impaired Self- Care Skills, Restricted Funct UE ROM Discharge Recommendations Plan/Recommendations: Continue POC Treatment Plan/Plan of Care Patient would benefit from OT for education, treatment and training to promote independence in ADL's, mobility, safety and/or upper extremity function for ADL's. Plan of Care: ADL Retraining, Functional Mobility, Group Exercise/Act as Ind, UE Funct Exercise/Act Treatment Duration: Oct 20, 2019 Frequency: At least 5 of 7 days/Wk (IRF) Estimated Hrs Per Day: 1.5 hours per day Agreement: Yes Rehab Potential: Guarded Time/GCodes Start Time: 10:00 Stop Time: 11:15 Total Time Billed (hr/min): 75 Billed Treatment Time 1 visit-ADL 2 (35 min) EX 3 (40 min) co-treat with PT for 75 min KEMAR DEAN Oct 04, 2019 11:16
[2019-10-04] MEDS: BETHANECHOL 25 MG (URECHOLINE) TAB PO SCH ×3 (13:22→21:10)
--- NOTE | 2019-10-04 13:56 | NUR ---
CM/SS CONCURRENT DOCUMENTATION Reviewed EMR, patient therapy progress and medical status. Due to Covid-19 restrictions, visited with patient's caregiver granddaughter Johanna Newman, by phone. At this time, since patient's admission to hospital, Johanna is working remotely from home. She indicates she would be there with patient sports teacher until Covid-19 protocols relax and she perhaps returns to her place of employment. [facility] has reached out to Paralegal Supervisor for more service hours from [facility]. Patient's change in condition will need to be re-assessed by [facility] staff once home regarding approval of additional hours above the 35 weekly hours currently approved. Inquired about barriers to discharge, Johanna indicates patient will need to be able to stand on her own and transfer in order for caregivers to be able to provide what is needed. Patient's [facility] LOS is 15 days, estimated discharge based on that is 10/14/19. Patient Care Conference to be held tomorrow re same. Addendum: 10/04/19 at 1410 by TONNY KILLIAN Regarding discharge planning, Johanna confirms they feel benefit from [facility] for RN and therapy, they have history with [facility] and wish to continue with that agency.
--- NOTE | 2019-10-04 14:46 | Physical Therapy Daily Note ---
PT Daily Note-Current Subjective Pt agreeable to therapy session with strong encouragement Pain Numeric Pain Scale: 0-No Pain Appearance Pt in bed upon arrival, incontinent of bowel. Pt requesting to be cleaned up, agreeable to go to restroom, pt assisted to restroom. At end of session, pt sitting up in recliner with call light, phone and bedside table within reach Mental Status Patient Orientation: Person, Place, Time, Eyes Open, Situation Attachments: [place] Transfers SCALE: Activities may be completed with or without assistive devices. 4-Orgchskxua-mdlxtux completes the activity by him/herself with no assistance from a helper. 5-Set-up or Clean-up Assistance-helper sets up or cleans up; patient completes activity. [place] assists only prior to or following the activity. 4-Supervision or Touching Assistance-helper provides verbal cues and/or touching/steadying and/or contact guard assistance as patient completes activity. Assistance may be provided throughout the activity or intermittently. 3-Partial/Moderate Assistance-helper does LESS THAN HALF the effort. [place] lifts, holds or supports trunk or limbs, but provides less than half the effort. 2-Substantial/Maximal Assistance-helper does MORE THAN HALF the effort. [place] lifts or holds trunk or limbs and provides more than half the effort. 7-Rrulxckck-tvacac does ALL the effort. Patient does none of the effort to complete the activity. Or, the assistance of 2 or more helpers is required for the patient to complete the activity. If activity was not attempted, code reason: 7-Patient Refused. 9-Not Applicable-not attempted and the patient did not perform the activity before the current illness, exacerbation or injury. 10-Not Attempted due to Environmental Limitations-(lack of equipment, weather restraints, etc.). 88-Not Attempted due to Medical Conditions or Safety Concerns. Roll Left & Right (QC): 2 Lying to Sitting/Side of Bed(Q: 2 Sit to Stand (QC): 1 (min to mod A of 2 due to impulsiveness, retropulsion and LOB) Chair/Chf-fu-Jddkh Xfer(QC): 3 Toilet Transfer (QC): 1 (min to mod A of 2 required) Weight Bearing Right Lower Extremity: Right Full Weight Bearing Left Lower Extremity: Left Full Weight Bearing Gait Training Does the Patient Walk?: Yes Distance: 15, 10, 5 Walk 10 feet (QC): 1 (CGA to min A of 2 for safety, mod to max A of 2 with w/c directly behind pt as pt insisted on sitting before being safe to do so.) Gait Persons Needed: 2 Gait Assistive Device: FWW very slow pace, decreased step height and length, shoes do not fit properly and causing ankle eversion, dtr states pt to be getting new shoes soon, pt insisting on wearing ill fitting shoes when up. Wheelchair Training Does the Pt Use a Wheelchair?: Yes Wheel 50 ft with 2 turns (QC): 3 Wheel 150 ft (QC): 1 Type of Wheelchair: Manual pt fatigues quickly, minimal effort to prepulse w/c, max encouragement provided Exercises Standing: Heel/toe raises, Marching, Retro gait, Sit to Stand, Side steps, Weight shifts Treatments OT/PT co-treated due to skilled need of two therapists for skilled instruction during ambulation/transfers (assist x2), decreased mobility and safety awareness. OT works on ADLs, UE placement during mobility/transfers, functional dynamic standing and UE strengthening. PT working on transfers, mobility, LE strengthening and ambulation. Pt is self-limiting. Min A for supine to EOB with HOB raised fully requiring max verbal encouragement. Assist x2 for sit <--> stand due to retropulsion and pt attempts to sit down before getting to surface even with verbal cues. Assist x2 to ambulate into bathroom. Assist x2 due to retropulsion to transfer onto toilet. Using grab bars, pt able to complete sit to stand by pulling to stand then mod A to have pt SPT thoroughly before sitting. Pt required assist to hike pants down and assist to cleanse self after BM. Sitting in w/c, pt completed oral care and grooming mod I. Assistance x2 to complete all lower body dressing, min A to pull shirt down and min A to don bra. Max A to don/doff socks. After session, pt sitting in recliner with call light/phone in reach. All needs met in room. Assessment Pt is self limiting, becomes agitated, states she has people that do everything for her at home anyway, pt putting in minimal effort to complete activities, pt states she cannot do a particular activity but then is able with strong encouragement but then pt does become agitated and angry. PT Short Term Goals Short Term Goals Time Frame: Oct 06, 2019 Roll Left & Right: 3 Sit to lyin Lying to sitting on side of be: 3 Sit to stand: 3 Chair/hde-ba-xwlqx transfer: 3 Walk 10 feet: 3 PT Customer Marketing Manager Goals Senior Care Goals PT Senior Care Goals Time Frame: Oct 20, 2019 Roll Left & Right (QC): 4 Sit to Lying (QC): 4 Lying-Sitting on Side/Bed(QC): 4 Sit to Stand (QC): 4 Chair/Bne-vi-Onstb Xfer(QC): 4 Car Transfer (QC): 4 Walk 10 feet (QC): 4 Walk 50ft with 2 Turns (QC): 4 PT Plan Treatment/Plan Treatment Plan: Continue Plan of Care Treatment Plan: Bed Mobility, Education, Functional Activity Sammie, Functional Strength, Group Therapy, Gait, Safety, Therapeutic Exercise, Transfers Treatment Duration: Oct 20, 2019 Frequency: At least 5 of 7 days/Wk (IRF) Estimated Hrs Per Day: 1.5 hours per day Patient and/or Family Agrees t: Yes Safety Risks/Education Patient Education: Gait Training, Transfer Techniques, Correct Positioning, W/C Management, Safety Issues Teaching Recipient: Patient Teaching Methods: Demonstration, Discussion Response to Teaching: Verbalize Understanding, Return Demonstration, Reinforcement Needed Time/GCodes Time In: 1000 Time Out: 1115 Total Billed Treatment Time: 75 Total Billed Treatment 1 visit, FA x30 min, WC x15 min, EX x15 min, NM x15 min SHAYNE FLORES PTA Oct 04, 2019 14:46
[2019-10-04] MEDS ORDERED: CATHETER FLUSH 10 ML SYR IV PRN (16:00)
[2019-10-04 16:13] VITALS: BP 110/69
[2019-10-04] MEDS: TAMSULOSIN 0.4 MG (FLOMAX) CAP PO SCH (18:31)
--- NOTE | 2019-10-04 18:58 | NUR ---
Intake 560cc. Voided 25cc plus a moderate amount in toilet x1. Bladder scan x3 today equals 131cc or less. No noted vaginal drainage.
--- NOTE | 2019-10-04 19:14 | NUR ---
bedside report received from DENISE MOJICA, assume care of pt
[2019-10-04] MEDS: ROSUVASTATIN 20 MG (CRESTOR) TABLET PO SCH (21:09)
[2019-10-04] MEDS: SERTRALINE 50 MG (ZOLOFT) TABLET PO SCH (21:10)
--- NOTE | 2019-10-04 21:10 | NUR ---
refused Colace, up to w/c to toilet, voided some on floor & pad was wet, had moderate soft rust colored stool, voided 200 on toilet
--- NOTE | 2019-10-04 21:22 | NUR ---
bladder scan showed 0, culture vaginal sent to lab, pericare done, carlos area red & irritated, carlos lotion applied & zinc to bottom
[2019-10-04] MEDS: CATHETER FLUSH 10 ML SYR IV SCH (22:28)
--- NOTE | 2019-10-05 01:04 | NUR ---
c/o nausea & vomiting had little bit of pink colored emesis on gown, accu check 158, Zofran 4mg iv given
[2019-10-05] MEDS: BETHANECHOL 25 MG (URECHOLINE) TAB PO SCH ×4 (06:07→21:20)
[2019-10-05] MEDS: MIDODRINE 10 MG (PROAMATINE) TAB PO SCH ×2 (06:08→16:43)
[2019-10-05] MEDS: KCL 10 MEQ TAB (MICRO K) PO SCH ×2 (06:08→16:43)
[2019-10-05] MEDS: CATHETER FLUSH 10 ML SYR IV SCH ×3 (06:10→21:27)
[2019-10-05 06:39] VITALS: BP 103/50
[2019-10-05 09:51] VITALS: BP 111/52
[2019-10-05] MEDS: TORSEMIDE 20 MG (DEMADEX) TAB PO SCH (09:52)
[2019-10-05] MEDS: APIXABAN 2.5 MG (ELIQUIS) TABLET PO SCH ×2 (09:53→21:20)
[2019-10-05] MEDS: PANTOPRAZOLE 40 MG (PROTONIX) TAB PO SCH (09:53)
[2019-10-05] MEDS: CLOPIDOGREL 75 MG (PLAVIX) TABLET PO SCH (09:53)
[2019-10-05] MEDS: CHOLESTYRAMINE 4 GM (QUESTRAN LITE, PREVALITE) PKT PO SCH ×2 (09:53→22:20)
[2019-10-05] MEDS: LACTOBACILLUS ACIDOPHILUS (PROBIOTIC) CAPSULE PO SCH ×3 (09:53→16:43)
[2019-10-05] MEDS: ALLOPURINOL 100 MG (ZYLOPRIM) TAB PO SCH (09:53)
[2019-10-05] MEDS: DOCUSATE SODIUM 100 MG (COLACE) CAP PO SCH ×2 (09:54→21:19)
[2019-10-05] MEDS: ACETAMINOPHEN 325 MG TABLET PO PRN (10:30)
--- NOTE | 2019-10-05 10:49 | Speech Therapy Daily Note ---
Speech Daily Progress Note Subjective Date Seen by Provider: Oct 05, 2019 Time Seen by Provider: 00:30 Patient was resting in her bed following breakfast when I entered her room. Patient was noted to constantly be picking at her arms at sores she has. Objective Patient completed a series of problem solving tasks related to her needs at home with 80% given min to mod verbal cues. Assessment Assessment Current Status: Good Progress Treatment Plan Continue Plan of Care Speech Short Term Goals Short Term Goals Short Term Goals 1) The patient will complete memory tasks as related to her daily needs at 80% or greater with minimal cues. 2) The patient will complete safety awareness tasks as related to her daily needs at 80% or greater with minimal cues. 3) The patient will complete problem solving tasks as related to her daily needs at 80% or greater with minimal cues. Speech Fdc Goals Skid Strapper Goals Patient will improve cognitive-communication necessary for safety and daily living tasks with minimal assist. Speech-Plan Patient/Family Goals Patient/Family Goals: Patient plans on returning to her home where she lives with her grand daughter. Treatment Plan Speech Therapy Treatment Plan: Continue Plan of Care Treatment Duration: Sep 29, 2019 Frequency: 5 times per week Estimated Hrs Per Day: .5 hour per day Rehab Potential: Guarded Barriers to Learning: Patient had moderate cognitive deficits initially, however she is making progress and deficits are resolving. Pt/Family Agrees to Plan: Yes Safety Risks/Education Teaching Recipient: Patient Teaching Methods: Demonstration, Discussion Response to Teaching: Verbalize Understanding, Return Demonstration Education Topics Provided: Continued communication of wants/needs Time Speech Therapy Time In: 08:30 Speech Therapy Time Out: 09:00 Total Billed Time: 30 Billed Treatment Time 1JOSE EDUARDO [address] Oct 05, 2019 10:49
--- NOTE | 2019-10-05 11:01 | Occupational Ther Daily Note ---
OT Current Status-Daily Note Subjective Pt alert, lying in bed. Pt agrees to therapy. Pt c/o pain in hips and back of neck, rated 9/10. Reported to nrsg, nrsg brought Tylenol. Mental Status/Objective Patient Orientation: Person, Place, Time, Situation Attachments: IV, Other-See Comments (Diabetic monitor and pump) ADL-Treatment OT/PT co-treated due to skilled need of two therapists for skilled instruction during ambulation/transfers (assist x2), decreased mobility and safety awareness. OT works on ADLs, UE placement during mobility/transfers, functional dynamic standing and UE strengthening. PT working on transfers, mobility, LE strengthening and ambulation. Pt is self-limiting. Min A for supine to EOB with HOB raised fully. Assist x2 for sit <--> stand due to retropulsion and pt attempts to sit down before getting to surface even with verbal cues. Assist to propel w/c to bathroom. Assist x2 due to retropulsion to transfer onto/off of toilet. Using grabbars, pt able to complete sit to stand by pulling to stand then min A to have pt SPT thoroughly before sitting. Pt required assist to hike pants down and assist to cleanse self after BM. Sitting in w/c, pt completed oral care and grooming mod I. Assistance x2 to complete all lower body dressing, min A to pull shirt down and min A to don bra. Max A to don/doff socks. Pt working on using FWW and transferring from one surface to another, beginning with assist x2 min A to min A x1. After session, pt sitting in recliner with call light/phone in reach. All needs met in room. Therapy Code Descriptions/Definitions Functional [place] Measure: 0=Not Assessed/NA 4=Minimal Assistance 1=Total Assistance 5=Supervision or Setup 2=Maximal Assistance 6=Modified [place] 3=Moderate Assistance 7=Complete IndependenceSCALE: Activities may be completed with or without assistive devices. 4-Vfpanitctr-pjejorf completes the activity by him/herself with no assistance from a helper. 5-Set-up or Clean-up Assistance-helper sets up or cleans up; patient completes activity. [place] assists only prior to or following the activity. 4-Supervision or Touching Assistance-helper provides verbal cues and/or touching/steadying and/or contact guard assistance as patient completes activity. Assistance may be provided throughout the activity or intermittently. 3-Partial/Moderate Assistance-helper does LESS THAN HALF the effort. [place] lifts, holds or supports trunk or limbs, but provides less than half the effort. 2-Substantial/Maximal Assistance-helper does MORE THAN HALF the effort. [place] lifts or holds trunk or limbs and provides more than half the effort. 3-Dbmdvalwg-yndtmq does ALL the effort. Patient does none of the effort to co mplete the activity. Or, the assistance of 2 or more helpers is required for the patient to complete the activity. If activity was not attempted, code reason: 7-Patient Refused. 9-Not Applicable-not attempted and the patient did not perform the activity before the current illness, exacerbation or injury. 10-Not Attempted due to Environmental Limitations-(lack of equipment, weather restraints, etc.). 88-Not Attempted due to Medical Conditions or Safety Concerns. Oral Hygiene (QC): 6 Upper Body Dressing (QC): 3 Lower Body Dressing (QC): 1 On/Off Footwear: 2 Toileting Hygiene (QC): 1 Toilet Transfer (QC): 1 OT Short Term Goals Short Term Goals Time Frame: Oct 10, 2019 Shower/bathe self: 3 Lower body dressin OT Jail Goals Jail Goals Time Frame: Oct 20, 2019 Eating (QC): 6 Oral Hygiene (QC): 6 Toileting Hygiene (QC): 3 Shower/Bathe Self (QC): 4 Upper Body Dressing (QC): 5 Lower Body Dressing (QC): 3 On/Off Footwear (QC): 3 Additional Goals: 1-Demonstrate ADL Tasks, 2-Verbalize Understanding, 3- ImproveStrength/Sammie 1=Demonstrate adherence to instructed precautions during ADL tasks. 2=Patient will verbalize/demonstrate understanding of assistive devices/modifications for ADL. 3=Patient will improve strength/tolerance for activity to enable patient to perform ADL's. OT Education/Plan Problem List/Assessment Assessment: Decreased Activ Tolerance, Decreased Safety Aware, Decreased UE Strength, Dependent Transfers, Impaired Bed Mobility, Impaired Cognition, Impaired Coordination, Impaired Funct Balance, Impaired I ADL's, Impaired Self- Care Skills, Restricted Funct UE ROM Discharge Recommendations Plan/Recommendations: Continue POC Treatment Plan/Plan of Care Patient would benefit from OT for education, treatment and training to promote independence in ADL's, mobility, safety and/or upper extremity function for ADL's. Plan of Care: ADL Retraining, Functional Mobility, Group Exercise/Act as Ind, UE Funct Exercise/Act Treatment Duration: Oct 20, 2019 Frequency: At least 5 of 7 days/Wk (IRF) Estimated Hrs Per Day: 1.5 hours per day Agreement: Yes Rehab Potential: Guarded Time/GCodes Start Time: 10:00 Stop Time: 11:00 Total Time Billed (hr/min): 60 Billed Treatment Time 1 visit-ADL 2 (30 min) FA 2 (30 min) KEMAR DEAN Oct 05, 2019 11:01
--- NOTE | 2019-10-05 11:11 | PM&R Progress Note ---
Subjective HPI/CC On Admission Date Seen by Provider: Oct 05, 2019 Time Seen by Provider: 11:00 Subjective/Events-last exam Neuropathy in feet cause chronic pain issues Stools are formed now and she is excited about that Questran BID scheduled Noted incontinence now but emptying completely which is very encouraging PVR 0 after incontinence Yeast swab pending Butt paste will be applied for her buttocks Conferred with RN Reviewed therapy notes Checked meds and labs Review of Systems General: Fatigue Genitourinary: Incontinence, Retention Objective Exam Vital Signs Vital Signs Date Time Temp Pulse Resp B/P (MAP) Pulse Ox O2 Delivery O2 Flow Rate FiO2 10/05/19 09:51 111/52 (71) 10/05/19 06:39 36.4 67 20 97 Room Air Capillary Refill : Less Than 3 SecondsLess Than 3 Seconds General Appearance: No Apparent Distress, WD/WN, Chronically ill HEENT: PERRL/EOMI, Normal ENT Inspection, Pharynx Normal Neck: Full Range of Motion, Normal Inspection, Non Tender, Supple, Carotid Bruit Respiratory: Chest Non Tender, Lungs Clear, No Accessory Muscle Use, No Respiratory Distress, Decreased Breath Sounds Cardiovascular: No Edema, No Gallop, No JVD, No Murmur, Normal Peripheral Pulses, Irregularly Irregular Gastrointestinal: Normal Bowel Sounds, No Organomegaly, No Pulsatile Mass, Non Tender, Soft Back: Normal Inspection, No CVA Tenderness, No Vertebral Tenderness Extremity: Normal Capillary Refill, Normal Inspection, Normal Range of Motion, Non Tender, No Calf Tenderness, No Pedal Edema Neurologic/Psychiatric: Alert, Oriented x3, No Motor/Sensory Deficits, reed cleaner II- XII Norm as Tested, Abnormal Gait, Depressed Affect, Motor Weakness (generalized weakness of all extremities, slow gait) Skin: Normal Color, Warm/Dry Lymphatic: No Adenopathy Results/Procedures Lab Patient resulted labs reviewed. FIM Transfers Therapy Code Descriptions/Definitions Functional [place] Measure: 0=Not Assessed/NA 4=Minimal Assistance 1=Total Assistance 5=Supervision or Setup 2=Maximal Assistance 6=Modified [place] 3=Moderate Assistance 7=Complete IndependenceSCALE: Activities may be completed with or without assistive devices. 6-Vgpjgilefi-pwiqckm completes the activity by him/herself with no assistance from a helper. 5-Set-up or Clean-up Assistance-helper sets up or cleans up; patient completes activity. [place] assists only prior to or following the activity. 4-Supervision or Touching Assistance-helper provides verbal cues and/or touching/steadying and/or contact guard assistance as patient completes activity. Assistance may be provided throughout the activity or intermittently. 3-Partial/Moderate Assistance-helper does LESS THAN HALF the effort. [place] lifts, holds or supports trunk or limbs, but provides less than half the effort. 2-Substantial/Maximal Assistance-helper does MORE THAN HALF the effort. [place] lifts or holds trunk or limbs and provides more than half the effort. 9-Mybkzrsae-bskqnh does ALL the effort. Patient does none of the effort to complete the activity. Or, the assistance of 2 or more helpers is required for the patient to complete the activity. If activity was not attempted, code reason: 7-Patient Refused. 9-Not Applicable-not attempted and the patient did not perform the activity before the current illness, exacerbation or injury. 10-Not Attempted due to Environmental Limitations-(lack of equipment, weather restraints, etc.). 88-Not Attempted due to Medical Conditions or Safety Concerns. Roll Left to Right (QC): 2 Sit to Lying (QC): 3 Sit to Stand (QC): 1 (min to mod A of 2 due to impulsiveness, retropulsion and LOB) Chair/Mrz-qe-Icnlk Xfer(QC): 3 Car Transfer (QC): 88 Gait Training Does the Patient Walk?: Yes Distance: 15, 10, 5 Walk 10 feet (QC): 1 (CGA to min A of 2 for safety, mod to max A of 2 with w/c directly behind pt as pt insisted on sitting before being safe to do so.) Walk 50 ft with 2 Turns(QC): 88 Walk 150 ft (QC): 88 Walking 10ft/uneven surface-QC: 88 Gait Persons Needed: 2 Gait Assistive Device: FWW Wheelchair Training Does the Pt Use a Wheelchair?: Yes Wheel 50 ft with 2 turns (QC): 3 Wheel 150 ft (QC): 1 Type of Wheelchair: Manual Stair Training 1 Step (curb) (QC): 88 4 Steps (QC): 88 12 Steps (QC): 88 Balance Picking up an Object (QC): 88 ADL-Treatment Eating (QC): 5 (Pt reports she required assistance opening mustard packet.) Oral Hygiene (QC): 6 Bathing Location: L Arm, R Arm, L Upper Leg, R Upper Leg, Chest, Abdomen, Perineal Area Shower/Bathe Self (QC): 1 (Assist to go from sit to stand using grabbars then CGA for safety and assist to cleanse buttocks.) Upper Body Dressing (QC): 3 Lower Body Dressing (QC): 1 On/Off Footwear (QC): 2 Toileting Hygiene (QC): 1 Toilet Transfer (QC): 1 Assessment/Plan Assessment and Plan Assess & Plan/Chief Complaint Assessment: Debility DM neuropathy DM insulin dependency on insulin pump UTI recurrent type completed abx Rocephin Loose stools added probiotic and Questran Urinary retention requiring Dr Bardales consultation now DC zepeda and monitor PVR with in/out caths but now emptying completely but incontinence noted Anemia Hypokalemia replacing Plan: Completed Rocephin Thursday Bladder meds per Urology and monitor incontinence but emptying Home meds Potassium supplement BID (1) Weakness generalized Status: Acute (2) UTI (urinary tract infection) Status: Acute (3) CAD (coronary artery disease) (4) On continuous oral anticoagulation (5) SSS (sick sinus syndrome) Status: Chronic (6) Hypertension Status: Acute (7) Diabetic neuropathy Status: Acute (8) IDDM (insulin dependent diabetes mellitus) Status: Acute (9) Coronary artery disease Status: Chronic (10) Multi-vessel coronary artery stenosis Status: Acute (11) Peripheral vascular disease Status: Acute (12) Dizziness Status: Acute (13) History of ESBL E. coli infection Status: Chronic KIMMY HANSON DO Oct 05, 2019 11:10
[2019-10-05] MEDS: inSUlin ASPART (NovoLOG) 1 UNIT/0.01 ML (CHARGE PER UNIT) SC SCH ×3 (12:11→20:00)
--- NOTE | 2019-10-05 12:11 | NUR ---
B/S 192 per pt's pump. Pt refused SSI, states, "I'd like to wait & see how much I eat of my lunch."
--- NOTE | 2019-10-05 13:21 | Physical Therapy Daily Note ---
PT Daily Note-Current Subjective Pt agreeable to PT/OT co treat session with encouragement. Pt stating she is having more pain today. nurse notified and provided pt with pain med. Pain Numeric Pain Scale: 9 Comment: neck and hips Appearance Pt in bed upon arrival. At end of session, pt sitting up in recliner with call light, phone and bedside table within reach. Mental Status Patient Orientation: Person, Place, Time Transfers SCALE: Activities may be completed with or without assistive devices. 8-Iugovnuzkh-fkvngaq completes the activity by him/herself with no assistance from a helper. 5-Set-up or Clean-up Assistance-helper sets up or cleans up; patient completes activity. [place] assists only prior to or following the activity. 4-Supervision or Touching Assistance-helper provides verbal cues and/or touching/steadying and/or contact guard assistance as patient completes activity. Assistance may be provided throughout the activity or intermittently. 3-Partial/Moderate Assistance-helper does LESS THAN HALF the effort. [place] lifts, holds or supports trunk or limbs, but provides less than half the effort. 2-Substantial/Maximal Assistance-helper does MORE THAN HALF the effort. [place] l ifts or holds trunk or limbs and provides more than half the effort. 2-Ocjtfnryl-rkzudq does ALL the effort. Patient does none of the effort to complete the activity. Or, the assistance of 2 or more helpers is required for the patient to complete the activity. If activity was not attempted, code reason: 7-Patient Refused. 9-Not Applicable-not attempted and the patient did not perform the activity before the current illness, exacerbation or injury. 10-Not Attempted due to Environmental Limitations-(lack of equipment, weather restraints, etc.). 88-Not Attempted due to Medical Conditions or Safety Concerns. Roll Left & Right (QC): 2 Lying to Sitting/Side of Bed(Q: 3 Sit to Stand (QC): 1 (2 person A, min to mod A) Chair/Vqu-sk-Epjiu Xfer(QC): 1 (2 person min to mod A) Toilet Transfer (QC): 1 (2 person min to mod A) Pt performed x5 stand pivot transfers and 8 sit to and from stand transfers during treatment session between bed, straight back arm chair, toilet, recliner and w/c Weight Bearing Right Lower Extremity: Right Full Weight Bearing Left Lower Extremity: Left Full Weight Bearing Gait Training Does the Patient Walk?: Yes Distance: 5 Gait Assistive Device: FWW pt only ambulating short distance today due to c/o increased pain and fatigue Wheelchair Training Does the Pt Use a Wheelchair?: Yes Type of Wheelchair: Manual Pt requiring increased assist and only short distance of 15 ft x2 due to c/o increased pain and fatigue Treatments OT/PT co-treated due to skilled need of two therapists for skilled instruction during ambulation/transfers (assist x2), decreased mobility and safety awareness. OT works on ADLs, UE placement during mobility/transfers, functional dynamic standing and UE strengthening. PT working on transfers, mobility, LE strengthening and ambulation. Pt is self-limiting. Min A for supine to EOB with HOB raised fully. Assist x2 for sit <--> stand due to retropulsion and pt attempts to sit down before getting to surface even with verbal cues. Assist to propel w/c to bathroom. Assist x2 due to retropulsion to transfer onto/off of toilet. Using grab bars, pt able to complete sit to stand by pulling to stand then min A to have pt SPT thoroughly before sitting. Pt required assist to hike pants down and assist to cleanse self after BM. Sitting in w/c, pt completed oral care and grooming mod I. Assistance x2 to complete all lower body dressing, min A to pull shirt down and min A to don bra. Max A to don/doff socks. Pt working on using FWW and transferring from one surface to another, beginning with assist x2 min A to min A x1. After session, pt sitting in recliner with call light/phone in reach. All needs met in room. Assessment Current Status: Poor Progress pt with c/o increased pain this session and is self limiting at times requiring max encouragement to participate and or perform activities required PT Short Term Goals Short Term Goals Time Frame: Oct 06, 2019 Roll Left & Right: 3 Sit to lyin Lying to sitting on side of be: 3 Sit to stand: 3 Chair/vxs-ru-ekbgk transfer: 3 Walk 10 feet: 3 PT Retirement Goals Retirement Goals PT Director Of Vocational Training Goals Time Frame: Oct 20, 2019 Roll Left & Right (QC): 4 Sit to Lying (QC): 4 Lying-Sitting on Side/Bed(QC): 4 Sit to Stand (QC): 4 Chair/Fam-go-Hubrp Xfer(QC): 4 Car Transfer (QC): 4 Walk 10 feet (QC): 4 Walk 50ft with 2 Turns (QC): 4 PT Plan Treatment/Plan Treatment Plan: Continue Plan of Care Treatment Plan: Bed Mobility, Education, Functional Activity Sammie, Functional Strength, Group Therapy, Gait, Safety, Therapeutic Exercise, Transfers Treatment Duration: Oct 20, 2019 Frequency: At least 5 of 7 days/Wk (IRF) Estimated Hrs Per Day: 1.5 hours per day Patient and/or Family Agrees t: Yes Safety Risks/Education Patient Education: Gait Training, Transfer Techniques, W/C Management, Safety Issues Teaching Recipient: Patient Teaching Methods: Demonstration, Discussion Response to Teaching: Verbalize Understanding, Return Demonstration, Reinforcement Needed Time/GCodes Time In: 1000 Time Out: 1100 Total Billed Treatment Time: 60 Total Billed Treatment 1 visit, FA x60 min SHAYNE FLORES [employer] PROJECT MANAGER Oct 05, 2019 13:20
--- NOTE | 2019-10-05 13:53 | Occupational Ther Daily Note ---
OT Current Status-Daily Note Subjective Pt seated upright in recliner, agreeable to OT tx at this time. She did not verbalize any pain. ADL-Treatment Therapy Code Descriptions/Definitions Functional [place] Measure: 0=Not Assessed/NA 4=Minimal Assistance 1=Total Assistance 5=Supervision or Setup 2=Maximal Assistance 6=Modified [place] 3=Moderate Assistance 7=Complete IndependenceSCALE: Activities may be completed with or without assistive devices. 1-Ifzprzdqlo-qmeknoq completes the activity by him/herself with no assistance from a helper. 5-Set-up or Clean-up Assistance-helper sets up or cleans up; patient completes activity. [place] assists only prior to or following the activity. 4-Supervision or Touching Assistance-helper provides verbal cues and/or touching/steadying and/or contact guard assistance as patient completes activity. Assistance may be provided throughout the activity or intermittently. 3-Partial/Moderate Assistance-helper does LESS THAN HALF the effort. [place] lifts, holds or supports trunk or limbs, but provides less than half the effort. 2-Substantial/Maximal Assistance-helper does MORE THAN HALF the effort. [place] lifts or holds trunk or limbs and provides more than half the effort. 6-Mhrjcyteh-rxmmqo does ALL the effort. Patient does none of the effort to complete the activity. Or, the assistance of 2 or more helpers is required for the patient to complete the activity. If activity was not attempted, code reason: 7-Patient Refused. 9-Not Applicable-not attempted and the patient did not perform the activity before the current illness, exacerbation or injury. 10-Not Attempted due to Environmental Limitations-(lack of equipment, weather restraints, etc.). 88-Not Attempted due to Medical Conditions or Safety Concerns. Other Treatment Pt seated in recliner, agreeable to BUE exercises at this time. In order to increase BUE strength and functional endurance, pt completed x10 reps each of the following exercises using yellow theraband: elbow flexion, elbow extension, shoulder flexion, and horizontal abduction. Pt required rest break between each exercises. OT educated pt on importance of exercises and instructed pt to complete the exercises throughout the day. Pt verbalized understanding. Post OT session, pt seated in recliner, call light in reach and all needs met. Education OT Patient Education: Correct positioning, Energy conservation, Exercise program, Progress toward Goal/Update tx plan, Purpose of tx/functional activities Teaching Recipient: Patient Teaching Methods: Demonstration, Discussion Response to Teaching: Verbalize Understanding, Return Demonstration OT Short Term Goals Short Term Goals Time Frame: Oct 10, 2019 Shower/bathe self: 3 Lower body dressin OT Lining Stitcher Goals Lining Stitcher Goals Time Frame: Oct 20, 2019 Eating (QC): 6 Oral Hygiene (QC): 6 Toileting Hygiene (QC): 3 Shower/Bathe Self (QC): 4 Upper Body Dressing (QC): 5 Lower Body Dressing (QC): 3 On/Off Footwear (QC): 3 Additional Goals: 1-Demonstrate ADL Tasks, 2-Verbalize Understanding, 3- ImproveStrength/Sammie 1=Demonstrate adherence to instructed precautions during ADL tasks. 2=Patient will verbalize/demonstrate understanding of assistive devices/modifications for ADL. 3=Patient will improve strength/tolerance for activity to enable patient to perform ADL's. OT Education/Plan Problem List/Assessment Assessment: Decreased Activ Tolerance, Decreased UE Strength, Impaired Funct Balance, Impaired I ADL's, Impaired Self-Care Skills Discharge Recommendations Plan/Recommendations: Continue POC Treatment Plan/Plan of Care Patient would benefit from OT for education, treatment and training to promote independence in ADL's, mobility, safety and/or upper extremity function for ADL's. Plan of Care: ADL Retraining, Functional Mobility, Group Exercise/Act as Ind, UE Funct Exercise/Act Treatment Duration: Oct 20, 2019 Frequency: At least 5 of 7 days/Wk (IRF) Estimated Hrs Per Day: 1.5 hours per day Agreement: Yes Rehab Potential: Guarded Time/GCodes Start Time: 13:00 Stop Time: 13:30 Total Time Billed (hr/min): 30 Billed Treatment Time 1, EX 2 LEILANI CUENCA OT Oct 05, 2019 13:53
[2019-10-05] MEDS: NYSTATIN CREAM (MYCOSTATIN) 30 GM TUBE TP SCH ×2 (15:20→21:18)
[2019-10-05] MEDS: ZINC OXIDE 16% OINT (BUTT PASTE) 113 GM TUBE TOP PRN ×2 (15:20→21:18)
[2019-10-05] MEDS: MICONAZOLE 2% POWDER (DESENEX AF) 90 GM TOP SCH ×2 (15:20→21:18)
[2019-10-05] MEDS: TAMSULOSIN 0.4 MG (FLOMAX) CAP PO SCH (17:12)
[2019-10-05 18:00] VITALS: BP 127/67
[2019-10-05] MEDS: ROSUVASTATIN 20 MG (CRESTOR) TABLET PO SCH (21:19)
[2019-10-05] MEDS: SERTRALINE 50 MG (ZOLOFT) TABLET PO SCH (21:20)
--- NOTE | 2019-10-06 02:30 | NUR ---
noted blood sugar 73 snack request per pt
[2019-10-06] MEDS: BETHANECHOL 25 MG (URECHOLINE) TAB PO SCH ×3 (05:53→20:47)
[2019-10-06] MEDS: CATHETER FLUSH 10 ML SYR IV SCH ×3 (05:53→20:57)
[2019-10-06] MEDS: MIDODRINE 10 MG (PROAMATINE) TAB PO SCH ×2 (05:53→17:18)
[2019-10-06] MEDS: KCL 10 MEQ TAB (MICRO K) PO SCH ×2 (05:53→17:18)
[2019-10-06 06:00] VITALS: BP 102/55
[2019-10-06] MEDS: LACTOBACILLUS ACIDOPHILUS (PROBIOTIC) CAPSULE PO SCH ×3 (09:17→17:18)
[2019-10-06] MEDS: APIXABAN 2.5 MG (ELIQUIS) TABLET PO SCH ×2 (09:17→20:47)
[2019-10-06] MEDS: ALLOPURINOL 100 MG (ZYLOPRIM) TAB PO SCH (09:18)
[2019-10-06] MEDS: PANTOPRAZOLE 40 MG (PROTONIX) TAB PO SCH (09:18)
[2019-10-06] MEDS: CLOPIDOGREL 75 MG (PLAVIX) TABLET PO SCH (09:18)
[2019-10-06] MEDS: CHOLESTYRAMINE 4 GM (QUESTRAN LITE, PREVALITE) PKT PO SCH ×2 (09:19→20:48)
[2019-10-06] MEDS: NYSTATIN CREAM (MYCOSTATIN) 30 GM TUBE TP SCH ×3 (09:27→20:50)
[2019-10-06] MEDS: DOCUSATE SODIUM 100 MG (COLACE) CAP PO SCH ×2 (09:28→20:42)
--- NOTE | 2019-10-06 09:57 | Speech Therapy Daily Note ---
Speech Daily Progress Note Subjective Date Seen by Provider: Oct 06, 2019 Time Seen by Provider: 00:30 Patient was resting in her bed when I entered her room. Objective Patient completed problem solving tasks related to her return home with 80% with min to mod cues. Assessment Assessment Current Status: Good Progress Treatment Plan Continue Plan of Care Speech Short Term Goals Short Term Goals Short Term Goals 1) The patient will complete memory tasks as related to her daily needs at 80% or greater with minimal cues. 2) The patient will complete safety awareness tasks as related to her daily needs at 80% or greater with minimal cues. 3) The patient will complete problem solving tasks as related to her daily needs at 80% or greater with minimal cues. Speech Long-Term Goals Long-Term Goals Patient will improve cognitive-communication necessary for safety and daily living tasks with minimal assist. Speech-Plan Patient/Family Goals Patient/Family Goals: Patient plans on returning to her home where she lives with her grand daughter. Treatment Plan Speech Therapy Treatment Plan: Continue Plan of Care Treatment Duration: Sep 29, 2019 Frequency: 5 times per week Estimated Hrs Per Day: .5 hour per day Rehab Potential: Guarded Barriers to Learning: Patient has cognitive deficits Pt/Family Agrees to Plan: Yes Safety Risks/Education Teaching Recipient: Patient Teaching Methods: Discussion Response to Teaching: Verbalize Understanding Education Topics Provided: Continued safety and communication of wants/needs. Time Speech Therapy Time In: 08:30 Speech Therapy Time Out: 09:00 Total Billed Time: 30 Billed Treatment Time 1JOSE EDUARDO [address] Oct 06, 2019 09:57
[2019-10-06] MEDS: inSUlin ASPART (NovoLOG) 1 UNIT/0.01 ML (CHARGE PER UNIT) SC SCH ×3 (10:17→20:48)
--- NOTE | 2019-10-06 11:41 | Progress Note - Urology ---
Progress Note-Urology Progress Notes/Assess & Plan Progress/Assessment & Plan VOIDING BUT HAS LEAKAGE, ? SECONDARY TO URECHOLINE. OBSERVE FOR NOW Final Diagnosis URINE RETENTION AND INCONTINENCE MARTIN GOODSON MD Oct 06, 2019 11:41
--- NOTE | 2019-10-06 12:33 | Occupational Ther Daily Note ---
OT Current Status-Daily Note Subjective Pt alert, lying in bed. Pt agrees to therapy. No c/o pain. Mental Status/Objective Patient Orientation: Person, Place, Time, Situation Attachments: IV, Other-See Comments (Diabetic pump and monitor) ADL-Treatment OT/PT co-treated due to skilled need of two therapists for skilled instruction during ambulation/transfers (assist x2), decreased mobility and safety awarenes. OT works on ADLs, UE placement during mobility/transfers. PT working on transfers, mobility and ambulation. Pt agrees to shower. Pt is self-limiting. Min A for supine to EOB with HOB raised fully. Assist x2 for sit <--> stand due to retropulsion and pt attempts to sit down before getting to surface even with verbal cues. Pt ambulated to/from bathroom, when going back to recliner pt's knees began to buckle as she sat. Pt required assist to hike pants down and assist to cleanse self after BM. Assist x2 due to retropulsion to transfer into shower. Using grabbars, pt able to complete sit to stand by pulling to stand then CGA with SPT. Pt completed shower bathing all areas except buttocks and lower legs/feet. Sitting in w/c, pt completed oral care and grooming mod I. Pt stated that she has assistance to complete all lower body dressing and set up to don bra. Pt then ambulated with assist x2 and began to sit even before turning toward chair. After session, pt sitting in recliner with call light/phone in reach. All needs met in room. Therapy Code Descriptions/Definitions Functional [place] Measure: 0=Not Assessed/NA 4=Minimal Assistance 1=Total Assistance 5=Supervision or Setup 2=Maximal Assistance 6=Modified [place] 3=Moderate Assistance 7=Complete IndependenceSCALE: Activities may be completed with or without assistive devices. 3-Mwxlzbdqbb-hpfzbbm completes the activity by him/herself with no assistance from a helper. 5-Set-up or Clean-up Assistance-helper sets up or cleans up; patient completes activity. [place] assists only prior to or following the activity. 4-Supervision or Touching Assistance-helper provides verbal cues and/or touching/steadying and/or contact guard assistance as patient completes activity. Assistance may be provided throughout the activity or intermittently. 3-Partial/Moderate Assistance-helper does LESS THAN HALF the effort. [place] lifts, holds or supports trunk or limbs, but provides less than half the effort. 2-Substantial/Maximal Assistance-helper does MORE THAN HALF the effort. [place] lifts or holds trunk or limbs and provides more than half the effort. 8-Rnmynoxzz-erxans does ALL the effort. Patient does none of the effort to complete the activity. Or, the assistance of 2 or more helpers is required for the patient to complete the activity. If activity was not attempted, code reason: 7-Patient Refused. 9-Not Applicable-not attempted and the patient did not perform the activity before the current illness, exacerbation or injury. 10-Not Attempted due to Environmental Limitations-(lack of equipment, weather restraints, etc.). 88-Not Attempted due to Medical Conditions or Safety Concerns. Oral Hygiene (QC): 6 Shower/Bathe Self (QC): 3 Upper Body Dressing (QC): 3 Lower Body Dressing (QC): 1 On/Off Footwear: 2 Toileting Hygiene (QC): 1 OT Short Term Goals Short Term Goals Time Frame: Oct 10, 2019 Shower/bathe self: 3 Lower body dressin OT Salvage Winder And Inspector Goals [facility] Goals Time Frame: Oct 20, 2019 Eating (QC): 6 Oral Hygiene (QC): 6 Toileting Hygiene (QC): 3 Shower/Bathe Self (QC): 4 Upper Body Dressing (QC): 5 Lower Body Dressing (QC): 3 On/Off Footwear (QC): 3 Additional Goals: 1-Demonstrate ADL Tasks, 2-Verbalize Understanding, 3- ImproveStrength/Sammie 1=Demonstrate adherence to instructed precautions during ADL tasks. 2=Patient will verbalize/demonstrate understanding of assistive de vices/modifications for ADL. 3=Patient will improve strength/tolerance for activity to enable patient to perform ADL's. OT Education/Plan Problem List/Assessment Assessment: Decreased Activ Tolerance, Decreased Safety Aware, Decreased UE Strength, Impaired Cognition, Impaired Coordination, Impaired Funct Balance, Impaired Self-Care Skills, Restricted Funct UE ROM, Visual-Perceptual Deficit Discharge Recommendations Plan/Recommendations: Continue POC Treatment Plan/Plan of Care Patient would benefit from OT for education, treatment and training to promote independence in ADL's, mobility, safety and/or upper extremity function for ADL's. Plan of Care: ADL Retraining, Functional Mobility, Group Exercise/Act as Ind, UE Funct Exercise/Act Treatment Duration: Oct 20, 2019 Frequency: At least 5 of 7 days/Wk (IRF) Estimated Hrs Per Day: 1.5 hours per day Agreement: Yes Rehab Potential: Guarded Time/GCodes Start Time: 11:00 Stop Time: 12:15 Total Time Billed (hr/min): 75 Billed Treatment Time 1 visit-ADL 5 (75 min) KEMAR DEAN Oct 06, 2019 12:33
--- NOTE | 2019-10-06 12:47 | Physical Therapy Daily Note ---
PT Daily Note-Current Subjective Pt laying Supine in bed upon arrival. Pt agrees to PT/OT co-treat for bathing. Pain Location: No Pain Reported Mental Status Patient Orientation: Person, Place, Situation Attachments: IV Transfers SCALE: Activities may be completed with or without assistive devices. 3-Utzmjnjxfn-kmgjftv completes the activity by him/herself with no assistance from a helper. 5-Set-up or Clean-up Assistance-helper sets up or cleans up; patient completes activity. [place] assists only prior to or following the activity. 4-Supervision or Touching Assistance-helper provides verbal cues and/or touching/steadying and/or contact guard assistance as patient completes activity. Assistance may be provided throughout the activity or intermittently. 3-Partial/Moderate Assistance-helper does LESS THAN HALF the effort. [place] l ifts, holds or supports trunk or limbs, but provides less than half the effort. 2-Substantial/Maximal Assistance-helper does MORE THAN HALF the effort. [place] lifts or holds trunk or limbs and provides more than half the effort. 0-Cffbhvsxm-ridmxv does ALL the effort. Patient does none of the effort to complete the activity. Or, the assistance of 2 or more helpers is required for t he patient to complete the activity. If activity was not attempted, code reason: 7-Patient Refused. 9-Not Applicable-not attempted and the patient did not perform the activity before the current illness, exacerbation or injury. 10-Not Attempted due to Environmental Limitations-(lack of equipment, weather restraints, etc.). 88-Not Attempted due to Medical Conditions or Safety Concerns. Roll Left & Right (QC): 4 Sit to Lying (QC): 4 Lying to Sitting/Side of Bed(Q: 4 Sit to Stand (QC): 4 Chair/Plv-sw-Eemsn Xfer(QC): 4 Toilet Transfer (QC): 4 Weight Bearing Right Lower Extremity: Right Full Weight Bearing Left Lower Extremity: Left Full Weight Bearing Gait Training Does the Patient Walk?: Yes Distance: 10' x2 Walk 10 feet (QC): 4 Gait Persons Needed: 1 Gait Assistive Device: FWW Treatments OT/PT co-treated due to skilled need of two therapists for skilled instruction during ambulation/transfers (assist x2), decreased mobility and safety awareness. OT works on ADLs, UE placement during mobility/transfers. PT working on transfers, mobility and ambulation. Pt agrees to shower. Pt is self- limiting. Min A for supine to EOB with HOB raised fully. Assist x2 for sit <--> stand due to retropulsion and pt attempts to sit down before getting to surface even with verbal cues. Pt ambulated to/from bathroom, when going back to recliner pt's knees began to buckle as she sat. Pt required assist to hike pants down and assist to cleanse self after BM. Assist x2 due to retropulsion to transfer into shower. Using grabbars, pt able to complete sit to stand by pulling to stand then CGA with SPT. Pt completed shower bathing all areas except buttocks and lower legs/feet. Sitting in w/c, pt completed oral care and grooming mod I. Pt stated that she has assistance to complete all lower body dressing and set up to don bra. Pt then ambulated with assist x2 and began to sit even before turning toward chair. After session, pt sitting in recliner with call light/phone in reach. All needs met in room. Assessment Current Status: Fair Progress Pt needs encouragement to try to complete tasks as independently as she can. PT Short Term Goals Short Term Goals Time Frame: Oct 06, 2019 Roll Left & Right: 3 Sit to lyin Lying to sitting on side of be: 3 Sit to stand: 3 Chair/gyy-kc-gxmnj transfer: 3 Walk 10 feet: 3 PT Real Estate Asset Manager Goals [facility] Goals PT [facility] Goals Time Frame: Oct 20, 2019 Roll Left & Right (QC): 4 Sit to Lying (QC): 4 Lying-Sitting on Side/Bed(QC): 4 Sit to Stand (QC): 4 Chair/Acp-bw-Jhlav Xfer(QC): 4 Car Transfer (QC): 4 Walk 10 feet (QC): 4 Walk 50ft with 2 Turns (QC): 4 PT Plan Problem List Problem List: Activity Tolerance, Functional Strength, Safety, Balance, Gait, Transfer, Bed Mobility Treatment/Plan Treatment Plan: Continue Plan of Care Treatment Plan: Bed Mobility, Education, Functional Activity Sammie, Functional Strength, Group Therapy, Gait, Safety, Therapeutic Exercise, Transfers Treatment Duration: Oct 20, 2019 Frequency: At least 5 of 7 days/Wk (IRF) Estimated Hrs Per Day: 1.5 hours per day Patient and/or Family Agrees t: Yes Safety Risks/Education Patient Education: Gait Training, Transfer Techniques, Correct Positioning, Safety Issues Teaching Recipient: Patient Teaching Methods: Discussion Response to Teaching: Verbalize Understanding Time/GCodes Time In: 1100 Time Out: 1215 Total Billed Treatment Time: 75 Total Billed Treatment 1, GT (15m) & FA x4 (60m) OJ SPRAGUE CARTRIDGE BELT PUNCHER Oct 06, 2019 12:47
--- NOTE | 2019-10-06 12:53 | PM&R Progress Note ---
Subjective HPI/CC On Admission Date Seen by Provider: Oct 06, 2019 Time Seen by Provider: 09:00 Subjective/Events-last exam Sugars are a bit low today and we talked about that and she manages her own insulin drip Drowsy this morning 2 loose stools but 1 formed stools indicating Conchis is working well for her PVR 0 Incontinence continues due to Urecholine Reddened buttocks, lotions placed on skin Conferred with RN Reviewed therapy notes Checked meds and labs Review of Systems General: Fatigue Neurological: Incoordination, Confusion Objective Exam Vital Signs Vital Signs Date Time Temp Pulse Resp B/P (MAP) Pulse Ox O2 Delivery O2 Flow Rate FiO2 10/06/19 18:00 36.6 64 16 120/68 (85) 97 Room Air Capillary Refill : Less Than 3 SecondsLess Than 3 Seconds General Appearance: No Apparent Distress, WD/WN, Chronically ill HEENT: PERRL/EOMI, Normal ENT Inspection, Pharynx Normal Neck: Full Range of Motion, Normal Inspection, Non Tender, Supple, Carotid Bruit Respiratory: Chest Non Tender, Lungs Clear, No Accessory Muscle Use, No Respiratory Distress, Decreased Breath Sounds Cardiovascular: No Edema, No Gallop, No JVD, No Murmur, Normal Peripheral Pulses, Irregularly Irregular Gastrointestinal: Normal Bowel Sounds, No Organomegaly, No Pulsatile Mass, Non Tender, Soft Back: Normal Inspection, No CVA Tenderness, No Vertebral Tenderness Extremity: Normal Capillary Refill, Normal Inspection, Normal Range of Motion, Non Tender, No Calf Tenderness, No Pedal Edema Neurologic/Psychiatric: Alert, Oriented x3, No Motor/Sensory Deficits, mechanical integrity engineer II- XII Norm as Tested, Abnormal Gait, Depressed Affect, Motor Weakness (generalized weakness of all extremities, slow gait) Skin: Normal Color, Warm/Dry Lymphatic: No Adenopathy Results/Procedures Lab Patient resulted labs reviewed. FIM Transfers Therapy Code Descriptions/Definitions Functional [place] Measure: 0=Not Assessed/NA 4=Minimal Assistance 1=Total Assistance 5=Supervision or Setup 2=Maximal Assistance 6=Modified [place] 3=Moderate Assistance 7=Complete IndependenceSCALE: Activities may be completed with or without assistive devices. 9-Yfmscuacbc-xhngxkr completes the activity by him/herself with no assistance from a helper. 5-Set-up or Clean-up Assistance-helper sets up or cleans up; patient completes activity. [place] assists only prior to or following the activity. 4-Supervision or Touching Assistance-helper provides verbal cues and/or touching/steadying and/or contact guard assistance as patient completes activity. Assistance may be provided throughout the activity or intermittently. 3-Partial/Moderate Assistance-helper does LESS THAN HALF the effort. [place] lifts, holds or supports trunk or limbs, but provides less than half the effort. 2-Substantial/Maximal Assistance-helper does MORE THAN HALF the effort. [place] lifts or holds trunk or limbs and provides more than half the effort. 2-Heaetfkzc-vtcupa does ALL the effort. Patient does none of the effort to complete the activity. Or, the assistance of 2 or more helpers is required for the patient to complete the activity. If activity was not attempted, code reason: 7-Patient Refused. 9-Not Applicable-not attempted and the patient did not perform the activity be fore the current illness, exacerbation or injury. 10-Not Attempted due to Environmental Limitations-(lack of equipment, weather restraints, etc.). 88-Not Attempted due to Medical Conditions or Safety Concerns. Roll Left to Right (QC): 2 Sit to Lying (QC): 3 Sit to Stand (QC): 1 (2 person A, min to mod A) Chair/Oja-by-Xfdxa Xfer(QC): 1 (2 person min to mod A) Car Transfer (QC): 88 Gait Training Does the Patient Walk?: Yes Distance: 5 Walk 10 feet (QC): 1 (CGA to min A of 2 for safety, mod to max A of 2 with w/c directly behind pt as pt insisted on sitting before being safe to do so.) Walk 50 ft with 2 Turns(QC): 88 Walk 150 ft (QC): 88 Walking 10ft/uneven surface-QC: 88 Gait Persons Needed: 2 Gait Assistive Device: FWW Wheelchair Training Does the Pt Use a Wheelchair?: Yes Wheel 50 ft with 2 turns (QC): 3 Wheel 150 ft (QC): 1 Type of Wheelchair: Manual Stair Training 1 Step (curb) (QC): 88 4 Steps (QC): 88 12 Steps (QC): 88 Balance Picking up an Object (QC): 88 ADL-Treatment Eating (QC): 5 (Pt reports she required assistance opening mustard packet.) Oral Hygiene (QC): 6 Bathing Location: L Arm, R Arm, L Upper Leg, R Upper Leg, Chest, Abdomen, Perineal Area Shower/Bathe Self (QC): 3 Upper Body Dressing (QC): 3 Lower Body Dressing (QC): 1 On/Off Footwear (QC): 2 Toileting Hygiene (QC): 1 Toilet Transfer (QC): 1 Assessment/Plan Assessment and Plan Assess & Plan/Chief Complaint Assessment: Debility DM neuropathy DM insulin dependency on insulin pump UTI recurrent type completed abx Rocephin Loose stools added probiotic and Questran Urinary retention requiring Dr Bardales consultation now DC zepeda and monitor PVR with in/out caths but now emptying completely but incontinence noted Anemia Hypokalemia replacing Plan: Completed Rocephin last Thursday Bladder meds per Urology and monitor incontinence but emptying now Home meds Potassium supplement BID Monitor low sugars (1) Weakness generalized Status: Acute (2) UTI (urinary tract infection) Status: Acute (3) CAD (coronary artery disease) (4) On continuous oral anticoagulation (5) SSS (sick sinus syndrome) Status: Chronic (6) Hypertension Status: Acute (7) Diabetic neuropathy Status: Acute (8) IDDM (insulin dependent diabetes mellitus) Status: Acute (9) Coronary artery disease Status: Chronic (10) Multi-vessel coronary artery stenosis Status: Acute (11) Peripheral vascular disease Status: Acute (12) Dizziness Status: Acute (13) History of ESBL E. coli infection Status: Chronic KIMMY HANSON DO Oct 06, 2019 12:53
--- NOTE | 2019-10-06 15:17 | NUR ---
CM/SS PATIENT CARE CONFERENCE SUMMARY Visited with [facility]/adrian Newman by phone regarding anticipate discharge next week. Physician will review current labs Thursday and make recommendations based on those as well as patient performance with therapies. Johanna is in agreement to patient's continued stay as long as is necessary for medical stability and maximization of functioning. Spoke with patient who made argument she was ready to return home now. She reportedly self-limits during therapy sessions, team to encourage and motivate regarding participation. Proposed plan is for [facility] services in her home environment under primary care by adrian Spencer and [place] staff.
[2019-10-06 16:00] VITALS: BP 106/67
[2019-10-06] MEDS: TAMSULOSIN 0.4 MG (FLOMAX) CAP PO SCH (17:18)
[2019-10-06 18:00] VITALS: BP 120/68
[2019-10-06] MEDS: SERTRALINE 50 MG (ZOLOFT) TABLET PO SCH (20:47)
[2019-10-06] MEDS: ROSUVASTATIN 20 MG (CRESTOR) TABLET PO SCH (20:47)
[2019-10-06] MEDS: ZINC OXIDE 16% OINT (BUTT PASTE) 113 GM TUBE TOP PRN (20:49)
[2019-10-06] MEDS: MICONAZOLE 2% POWDER (DESENEX AF) 90 GM TOP SCH (20:49)
[2019-10-07 05:04] VITALS: BP 116/53
[2019-10-07] MEDS: KCL 10 MEQ TAB (MICRO K) PO SCH ×2 (05:43→18:09)
[2019-10-07] MEDS: inSUlin ASPART (NovoLOG) 1 UNIT/0.01 ML (CHARGE PER UNIT) SC SCH ×4 (05:43→21:02)
[2019-10-07] MEDS: MIDODRINE 10 MG (PROAMATINE) TAB PO SCH ×2 (05:43→18:08)
[2019-10-07] MEDS: CATHETER FLUSH 10 ML SYR IV SCH ×3 (05:44→21:07)
[2019-10-07] MEDS: PANTOPRAZOLE 40 MG (PROTONIX) TAB PO SCH (07:59)
[2019-10-07] MEDS: LACTOBACILLUS ACIDOPHILUS (PROBIOTIC) CAPSULE PO SCH ×3 (07:59→18:09)
--- NOTE | 2019-10-07 08:00 | NUR ---
MEDICATED WITH TYLENOL FOR NECK PAIN.
[2019-10-07] MEDS: ACETAMINOPHEN 325 MG TABLET PO PRN (08:03)
--- NOTE | 2019-10-07 08:42 | Occupational Ther Daily Note ---
OT Current Status-Daily Note Subjective Pt alert, lying in bed. Pt agrees to therapy. Pt c/o pain in neck, did not rate, nrsg brought Tylenol. Mental Status/Objective Patient Orientation: Person, Place, Time, Situation Attachments: IV, Other-See Comments (Diabetic monitor/pump) ADL-Treatment Pt declined shower. Pt agrees to sponge bath. Min A for supine to EOB. Pt ambulated with min A due to knee buckle 1x. Transferred onto/off of toilet with CGA. Assist to cleanse after toileting and hiking pants over buttocks, pt hiked pants over abdomen (2x's). Min A for upper body dressing. Max A for lower body dressing and footwear. Pt declines using lower body dressing equipment. Mod I sitting at sink to complete oral care and grooming. Pt ambulated 10 feet from w/c to recliner with CGA. After session, pt sitting in recliner with call light/phone in reach. All needs met in room. Therapy Code Descriptions/Definitions Functional [place] Measure: 0=Not Assessed/NA 4=Minimal Assistance 1=Total Assistance 5=Supervision or Setup 2=Maximal Assistance 6=Modified [place] 3=Moderate Assistance 7=Complete IndependenceSCALE: Activities may be completed with or without assistive devices. 7-[place]qnjq-ibwgril completes the activity by him/herself with no assistance from a helper. 5-Set-up or Clean-up Assistance-helper sets up or cleans up; patient completes activity. [place] assists only prior to or following the activity. 4-Supervision or Touching Assistance-helper provides verbal cues and/or touching/steadying and/or contact guard assistance as patient completes activity. Assistance may be provided throughout the activity or intermittently. 3-Partial/Moderate Assistance-helper does LESS THAN HALF the effort. [place] lifts, holds or supports trunk or limbs, but provides less than half the effort. 2-Substantial/Maximal Assistance-helper does MORE THAN HALF the effort. [place] lifts or holds trunk or limbs and provides more than half the effort. 1-Uxlsocapb-icngkb does ALL the effort. Patient does none of the effort to complete the activity. Or, the assistance of 2 or more helpers is required for the patient to complete the activity. If activity was not attempted, code reason: 7-Patient Refused. 9-Not Applicable-not attempted and the patient did not perform the activity before the current illness, exacerbation or injury. 10-Not Attempted due to Environmental Limitations-(lack of equipment, weather restraints, etc.). 88-Not Attempted due to Medical Conditions or Safety Concerns. Oral Hygiene (QC): 6 Upper Body Dressing (QC): 3 Lower Body Dressing (QC): 2 On/Off Footwear: 2 Toileting Hygiene (QC): 2 Toilet Transfer (QC): 4 OT Short Term Goals Short Term Goals Time Frame: Oct 10, 2019 Shower/bathe self: 3 Lower body dressin OT [facility] Goals [employer] Television Access Coordinator Goals Time Frame: Oct 20, 2019 Eating (QC): 6 Oral Hygiene (QC): 6 Toileting Hygiene (QC): 3 Shower/Bathe Self (QC): 4 Upper Body Dressing (QC): 5 Lower Body Dressing (QC): 3 On/Off Footwear (QC): 3 Additional Goals: 1-Demonstrate ADL Tasks, 2-Verbalize Understanding, 3- ImproveStrength/Sammie 1=Demonstrate adherence to instructed precautions during ADL tasks. 2=Patient will verbalize/demonstrate understanding of assistive devices/modifications for ADL. 3=Patient will improve strength/tolerance for activity to enable patient to perform ADL's. OT Education/Plan Problem List/Assessment Assessment: Decreased Activ Tolerance, Decreased UE Strength, Impaired Cognition, Impaired Coordination, Impaired Funct Balance, Impaired Self-Care Skills, Restricted Funct UE ROM Discharge Recommendations Plan/Recommendations: Continue POC Treatment Plan/Plan of Care Patient would benefit from OT for education, treatment and training to promote independence in ADL's, mobility, safety and/or upper extremity function for ADL's. Plan of Care: ADL Retraining, Functional Mobility, Group Exercise/Act as Ind, UE Funct Exercise/Act Treatment Duration: Oct 20, 2019 Frequency: At least 5 of 7 days/Wk (IRF) Estimated Hrs Per Day: 1.5 hours per day Agreement: Yes Rehab Potential: Guarded Time/GCodes Start Time: 07:15 Stop Time: 08:30 Total Time Billed (hr/min): 75 Billed Treatment Time 1 visit-ADL 5 (75 min) KEMAR DEAN Oct 07, 2019 08:42
[2019-10-07 09:00] VITALS: BP 124/59
--- NOTE | 2019-10-07 09:15 | Progress Note - Urology ---
Progress Note-Urology Progress Notes/Assess & Plan Progress/Assessment & Plan VOIDING WELL FEELS EMPTY. NO PVR DONE. LESS DRIBBLING SINCE WE DECREASED URECHOLINE TO TID. WE WILL CHECK PVR TODAY AND MANAGE ACCORDINGLY Final Diagnosis URINE RETENTION (RESOLVING) MARTIN GOODSON MD Oct 07, 2019 09:14
[2019-10-07] MEDS: CLOPIDOGREL 75 MG (PLAVIX) TABLET PO SCH (09:38)
[2019-10-07] MEDS: BETHANECHOL 25 MG (URECHOLINE) TAB PO SCH ×3 (09:38→21:00)
[2019-10-07] MEDS: APIXABAN 2.5 MG (ELIQUIS) TABLET PO SCH ×2 (09:38→20:59)
[2019-10-07] MEDS: ALLOPURINOL 100 MG (ZYLOPRIM) TAB PO SCH (09:38)
[2019-10-07] MEDS: DOCUSATE SODIUM 100 MG (COLACE) CAP PO SCH ×2 (09:39→19:37)
[2019-10-07] MEDS: TORSEMIDE 20 MG (DEMADEX) TAB PO SCH (09:39)
[2019-10-07] MEDS: MICONAZOLE 2% POWDER (DESENEX AF) 90 GM TOP SCH ×2 (09:40→21:02)
[2019-10-07] MEDS: NYSTATIN CREAM (MYCOSTATIN) 30 GM TUBE TP SCH ×3 (09:40→21:02)
[2019-10-07] MEDS: CHOLESTYRAMINE 4 GM (QUESTRAN LITE, PREVALITE) PKT PO SCH ×2 (09:40→21:00)
--- NOTE | 2019-10-07 10:22 | Physical Therapy Daily Note ---
PT Daily Note-Current Subjective Pt. sitting up in recliner. Discussion began with this CERTIFIED INDOOR ENVIRONMENTALIST reviewing pts own functional goals and how she had been managing previously. Pt. has FT help and states she isnt going to do more than she wants. Pt. refuses to walk in hallways. Agrees to walk in room. Pt. requested bathroom x2 during Rx which pt. had been incont of BM and urine Pain Numeric Pain Scale: 5-Moderate Pain Location: Medial Location Body Site: Neck Pain Description: Ache Mental Status Patient Orientation: Normal For Age Transfers SCALE: Activities may be completed with or without assistive devices. 1-Bezxhrltnp-kgztjxg completes the activity by him/herself with no assistance from a helper. 5-Set-up or Clean-up Assistance-helper sets up or cleans up; patient completes activity. [place] assists only prior to or following the activity. 4-Supervision or Touching Assistance-helper provides verbal cues and/or touching/steadying and/or contact guard assistance as patient completes activity. Assistance may be provided throughout the activity or intermittently. 3-Partial/Moderate Assistance-helper does LESS THAN HALF the effort. [place] lifts, holds or supports trunk or limbs, but provides less than half the effort. 2-Substantial/Maximal Assistance-helper does MORE THAN HALF the effort. [place] lifts or holds trunk or limbs and provides more than half the effort. 8-Fnfyxlzrn-ndudfy does ALL the effort. Patient does none of the effort to complete the activity. Or, the assistance of 2 or more helpers is required for the patient to complete the activity. If activity was not attempted, code reason: 7-Patient Refused. 9-Not Applicable-not attempted and the patient did not perform the activity before the current illness, exacerbation or injury. 10-Not Attempted due to Environmental Limitations-(lack of equipment, weather restraints, etc.). 88-Not Attempted due to Medical Conditions or Safety Concerns. Sit to Stand (QC): 4 Chair/Wyy-cd-Idzme Xfer(QC): 4 Toilet Transfer (QC): 4 much work on SPTs and toilet TRFs recliner to w/c, w/c to toilet etc Weight Bearing Right Lower Extremity: Right Full Weight Bearing Left Lower Extremity: Left Full Weight Bearing Gait Training Does the Patient Walk?: Yes Walk 10 feet (QC): 4 Gait Persons Needed: 1 Gait Assistive Device: FWW w/c to follow and constant cues for technique and safety for gait Exercises Seated Therapy Exercises: Ankle pumps, Sit to stand, Long arc quads, Hip fle xion, Hip abd/add Seated Reps: 15 (x2) Treatments pt. on toilet x2 during Rx requiring change of brief x2 and max assist to clean up, BM very gold gold brown and very soft, nurse informed and also observed Assessment Current Status: Good Progress needs encouraged to work toward goals, fatigues quickly, neuropathy limits safe gait as pts feet are involved PT Short Term Goals Short Term Goals Time Frame: Oct 06, 2019 Roll Left & Right: 3 Sit to lyin Lying to sitting on side of be: 3 Sit to stand: 3 Chair/gdk-nu-jjxto transfer: 3 Walk 10 feet: 3 PT Nursing Home Goals Nursing Home Goals PT Dentist Attendant Goals Time Frame: Oct 20, 2019 Roll Left & Right (QC): 4 Sit to Lying (QC): 4 Lying-Sitting on Side/Bed(QC): 4 Sit to Stand (QC): 4 Chair/Rsc-mh-Clara Xfer(QC): 4 Car Transfer (QC): 4 Walk 10 feet (QC): 4 Walk 50ft with 2 Turns (QC): 4 PT Plan Treatment/Plan Treatment Plan: Continue Plan of Care Treatment Plan: Bed Mobility, Education, Functional Activity Sammie, Functional Strength, Group Therapy, Gait, Safety, Therapeutic Exercise, Transfers Treatment Duration: Oct 20, 2019 Frequency: At least 5 of 7 days/Wk (IRF) Estimated Hrs Per Day: 1.5 hours per day Patient and/or Family Agrees t: Yes Safety Risks/Education Patient Education: Gait Training, Transfer Techniques, Correct Positioning, W/C Management, Disease Process, Safety Issues Teaching Recipient: Patient Teaching Methods: Demonstration, Discussion Response to Teaching: Verbalize Understanding, Return Demonstration, Reinforcement Needed Time/GCodes Time In: 900 Time Out: 1015 Total Billed Treatment Time: 75 Total Billed Treatment 1,FA45m,GT15m,EX15m ALYSSA HINES PTA Oct 07, 2019 10:22
--- NOTE | 2019-10-07 11:26 | PM&R Progress Note ---
Subjective HPI/CC On Admission Date Seen by Provider: Oct 07, 2019 Time Seen by Provider: 10:30 Subjective/Events-last exam Patient doing much better today less drowsy than yesterday Beginning to get up with only 1 social worker assistant which is a requirement in order to be able to go home I told her that we would reevaluate her on Thursday and likely discharge from there No bowel movement yesterday but has had a few loose stools today but Questran twice daily is working pretty well Post void residual checks will be evaluated and reviewed by Dr. Bardales No pain is reported and if she does have pain Tylenol is fine Blood sugars reviewed Overall appears to be more motivated Conferred with RN Reviewed therapy notes Checked meds and labs Review of Systems General: Fatigue Gastrointestinal: Diarrhea Neurological: Weakness Objective Exam Vital Signs Vital Signs Date Time Temp Pulse Resp B/P (MAP) Pulse Ox O2 Delivery O2 Flow Rate FiO2 10/07/19 16:00 36.5 61 16 106/60 (75) 93 Room Air Capillary Refill : Less Than 3 SecondsLess Than 3 Seconds General Appearance: No Apparent Distress, WD/WN, Chronically ill HEENT: PERRL/EOMI, Normal ENT Inspection, Pharynx Normal Neck: Full Range of Motion, Normal Inspection, Non Tender, Supple, Carotid Br uit Respiratory: Chest Non Tender, Lungs Clear, No Accessory Muscle Use, No Respiratory Distress, Decreased Breath Sounds Cardiovascular: No Edema, No Gallop, No JVD, No Murmur, Normal Peripheral Pulses, Irregularly Irregular Gastrointestinal: Normal Bowel Sounds, No Organomegaly, No Pulsatile Mass, Non Tender, Soft Back: Normal Inspection, No CVA Tenderness, No Vertebral Tenderness Extremity: Normal Capillary Refill, Normal Inspection, Normal Range of Motion, Non Tender, No Calf Tenderness, No Pedal Edema Neurologic/Psychiatric: Alert, Oriented x3, No Motor/Sensory Deficits, group exercise instructor II- XII Norm as Tested, Abnormal Gait, Depressed Affect, Motor Weakness (generalized weakness of all extremities, slow gait) Skin: Normal Color, Warm/Dry Lymphatic: No Adenopathy Results/Procedures Lab Patient resulted labs reviewed. FIM Transfers Therapy Code Descriptions/Definitions Functional [place] Measure: 0=Not Assessed/NA 4=Minimal Assistance 1=Total Assistance 5=Supervision or Setup 2=Maximal Assistance 6=Modified [place] 3=Moderate Assistance 7=Complete IndependenceSCALE: Activities may be completed with or without assistive devices. 4-Hxtkwueptx-qslzshd completes the activity by him/herself with no assistance from a helper. 5-Set-up or Clean-up Assistance-helper sets up or cleans up; patient completes activity. [place] assists only prior to or following the activity. 4-Supervision or Touching Assistance-helper provides verbal cues and/or touching/steadying and/or contact guard assistance as patient completes activity. Assistance may be provided throughout the activity or intermittently. 3-Partial/Moderate Assistance-helper does LESS THAN HALF the effort. [place] lifts, holds or supports trunk or limbs, but provides less than half the effort. 2-Substantial/Maximal Assistance-helper does MORE THAN HALF the effort. [place] lifts or holds trunk or limbs and provides more than half the effort. 9-Uyprfpupp-aclmsl does ALL the effort. Patient does none of the effort to complete the activity. Or, the assistance of 2 or more helpers is required for the patient to complete the activity. If activity was not attempted, code reason: 7-Patient Refused. 9-Not Applicable-not attempted and the patient did not perform the activity before the current illness, exacerbation or injury. 10-Not Attempted due to Environmental Limitations-(lack of equipment, weather restraints, etc.). 88-Not Attempted due to Medical Conditions or Safety Concerns. Roll Left to Right (QC): 4 Sit to Lying (QC): 4 Sit to Stand (QC): 4 Chair/Bqa-ul-Yrpqs Xfer(QC): 4 Car Transfer (QC): 88 Gait Training Does the Patient Walk?: Yes Distance: 10' x2 Walk 10 feet (QC): 4 Walk 50 ft with 2 Turns(QC): 88 Walk 150 ft (QC): 88 Walking 10ft/uneven surface-QC: 88 Gait Persons Needed: 1 Gait Assistive Device: FWW Wheelchair Training Does the Pt Use a Wheelchair?: Yes Wheel 50 ft with 2 turns (QC): 3 Wheel 150 ft (QC): 1 Type of Wheelchair: Manual Stair Training 1 Step (curb) (QC): 88 4 Steps (QC): 88 12 Steps (QC): 88 Balance Picking up an Object (QC): 88 ADL-Treatment Eating (QC): 5 (Pt reports she required assistance opening mustard packet.) Oral Hygiene (QC): 6 Bathing Location: L Arm, R Arm, L Upper Leg, R Upper Leg, Chest, Abdomen, Perineal Area Shower/Bathe Self (QC): 3 Upper Body Dressing (QC): 3 Lower Body Dressing (QC): 1 On/Off Footwear (QC): 2 Toileting Hygiene (QC): 1 Toilet Transfer (QC): 1 Assessment/Plan Assessment and Plan Assess & Plan/Chief Complaint Assessment: Debility DM neuropathy DM insulin dependency on insulin pump UTI recurrent type completed abx Rocephin Loose stools added probiotic and Questran Urinary retention requiring Dr Bardales consultation now DC zepeda and monitor PVR with in/out caths but now emptying completely but incontinence noted Anemia Hypokalemia replacing Plan: Completed Rocephin last Thursday Bladder meds per Urology and monitor incontinence but emptying now Home meds Potassium supplement BID Monitor low sugars (1) Weakness generalized Status: Acute (2) UTI (urinary tract infection) Status: Acute (3) CAD (coronary artery disease) (4) On continuous oral anticoagulation (5) SSS (sick sinus syndrome) Status: Chronic (6) Hypertension Status: Acute (7) Diabetic neuropathy Status: Acute (8) IDDM (insulin dependent diabetes mellitus) Status: Acute (9) Coronary artery disease Status: Chronic (10) Multi-vessel coronary artery stenosis Status: Acute (11) Peripheral vascular disease Status: Acute (12) Dizziness Status: Acute (13) History of ESBL E. coli infection Status: Chronic KIMMY HANSON DO Oct 07, 2019 11:26
--- NOTE | 2019-10-07 13:05 | Speech Therapy Daily Note ---
Speech Daily Progress Note Subjective Date Seen by Provider: Oct 07, 2019 Time Seen by Provider: 00:30 Patient was sitting up in her recliner, alert and participated well with therapy. Objective Patient completed safety awareness tasks with a series of situational cards with 80% given minimal cues. Assessment Assessment Current Status: Good Progress Treatment Plan Continue Plan of Care Speech Short Term Goals Short Term Goals Short Term Goals 1) The patient will complete memory tasks as related to her daily needs at 80% or greater with minimal cues. 2) The patient will complete safety awareness tasks as related to her daily needs at 80% or greater with minimal cues. 3) The patient will complete problem solving tasks as related to her daily needs at 80% or greater with minimal cues. Speech Radio Message Router Goals Radio Message Router Goals Patient will improve cognitive-communication necessary for safety and daily living tasks with minimal assist. Speech-Plan Patient/Family Goals Patient/Family Goals: The patient plans on returning home where she lives with her grand daughter. Treatment Plan Speech Therapy Treatment Plan: Continue Plan of Care Treatment Duration: Sep 29, 2019 Frequency: 5 times per week Estimated Hrs Per Day: .5 hour per day Rehab Potential: Guarded Barriers to Learning: Patient has moderate cognitive deficits, though these are resolving Pt/Family Agrees to Plan: Yes Safety Risks/Education Teaching Recipient: Patient Teaching Methods: Demonstration, Discussion Response to Teaching: Verbalize Understanding, Return Demonstration Education Topics Provided: Continued safety upon her return home Time Speech Therapy Time In: 08:30 Speech Therapy Time Out: 09:00 Total Billed Time: 30 Billed Treatment Time 1, LORETTA Barajas Oct 07, 2019 13:05
--- NOTE | 2019-10-07 13:13 | NUR ---
"RD ASSESSMENT PMHx: CAD; hypercholesterolemia; HTN; TIA; chronic UTI; c-diff; DM; CA(breast); CKD PT INTERACTION: Pt was awake and pleasant during nutrition follow-up. Pt states she has been eating okay since last assessment. Note avg PO intake 25-50% of meals, per chart review. Pt states family has been bringing meals to her since last assessment. Pt states some issues with nausea/vomiting since last assessment. Pt states some issues with diarrhea since last assessment. Note last BM on 10/06 and pt currently on bowel regimen of colace BID; senna BID; and miralax BID, per chart review. ABNORMAL NUTRITION-RELATED LAB VALUES LOW: K 3.1; Cl 91; Pro 5.6; alb 2.9 HIGH: BUN 23; cr 2.07; glu 109 Est. kcal needs: 1159-8992 kcal | 20-25 kcal/kg Est. Pro needs: 77-97 g Pro | 0.8-1.0 g Pro/kg PES STATEMENT: Inadequate oral intake (NI-2.1) related to loss of appetite | nausea | diarrhea as evidenced by pt interview | avg PO intake 25-50% of meals INTERVENTION: Continue with current diet order of CHO 60g/m 3snack diet. Pt may benefit from nutrition supplementation if PO intake declines. Will continue to follow and reassess as pt needs, intake, and status change. MONITOR/EVALUATE: PO Intake; Plan of Care; Hydration Status; Weight Status; Lab Values Rex Vega, MS, RD, LD"
--- NOTE | 2019-10-07 14:00 | NUR ---
DR. GOODSON NOTIFIED THAT PATIENT VOIDED 100 CC AND BLADDER SCAN SHOWED 2 CC. URECHOLINE DOSAGE DECREASED.
[2019-10-07 16:00] VITALS: BP 106/60
[2019-10-07] MEDS: TAMSULOSIN 0.4 MG (FLOMAX) CAP PO SCH (18:09)
[2019-10-07] MEDS: ROSUVASTATIN 20 MG (CRESTOR) TABLET PO SCH (20:59)
[2019-10-07] MEDS: SERTRALINE 50 MG (ZOLOFT) TABLET PO SCH (21:00)
[2019-10-07] MEDS: ZINC OXIDE 16% OINT (BUTT PASTE) 113 GM TUBE TOP PRN (21:01)
[2019-10-08] MEDS: inSUlin ASPART (NovoLOG) 1 UNIT/0.01 ML (CHARGE PER UNIT) SC SCH ×4 (05:35→21:19)
[2019-10-08 05:50] VITALS: BP 102/66
[2019-10-08] MEDS: CATHETER FLUSH 10 ML SYR IV SCH ×3 (06:13→20:45)
[2019-10-08] MEDS: KCL 10 MEQ TAB (MICRO K) PO SCH ×2 (06:13→17:52)
[2019-10-08] MEDS: MIDODRINE 10 MG (PROAMATINE) TAB PO SCH ×2 (06:13→17:52)
[2019-10-08 08:00] VITALS: BP 109/64
[2019-10-08] MEDS: ACETAMINOPHEN 325 MG TABLET PO PRN (08:51)
[2019-10-08] MEDS: ALLOPURINOL 100 MG (ZYLOPRIM) TAB PO SCH (08:51)
[2019-10-08] MEDS: APIXABAN 2.5 MG (ELIQUIS) TABLET PO SCH ×2 (08:51→20:43)
[2019-10-08] MEDS: BETHANECHOL 25 MG (URECHOLINE) TAB PO SCH ×3 (08:51→20:44)
[2019-10-08] MEDS: DOCUSATE SODIUM 100 MG (COLACE) CAP PO SCH ×2 (08:52→19:40)
[2019-10-08] MEDS: CLOPIDOGREL 75 MG (PLAVIX) TABLET PO SCH (08:52)
[2019-10-08] MEDS: PANTOPRAZOLE 40 MG (PROTONIX) TAB PO SCH (08:52)
[2019-10-08] MEDS: CHOLESTYRAMINE 4 GM (QUESTRAN LITE, PREVALITE) PKT PO SCH ×2 (08:55→20:43)
[2019-10-08] MEDS: LACTOBACILLUS ACIDOPHILUS (PROBIOTIC) CAPSULE PO SCH ×3 (08:56→17:53)
[2019-10-08] MEDS: NYSTATIN CREAM (MYCOSTATIN) 30 GM TUBE TP SCH ×3 (08:57→20:45)
--- NOTE | 2019-10-08 10:28 | Physical Therapy Daily Note ---
PT Daily Note-Current Subjective Pt agreeable to PT session of bed ex's only. Pain Numeric Pain Scale: 6 Location Body Site: Neck Comment: 02/26 befor tylenol Appearance Pt in bed before and after therapy session, call light, phone, bedside table within reach Mental Status Patient Orientation: Normal For Age Transfers SCALE: Activities may be completed with or without assistive devices. 4-Scahpahlbp-recuzbz completes the activity by him/herself with no assistance from a helper. 5-Set-up or Clean-up Assistance-helper sets up or cleans up; patient completes activity. [place] assists only prior to or following the activity. 4-Supervision or Touching Assistance-helper provides verbal cues and/or touching/steadying and/or contact guard assistance as patient completes activity. Assistance may be provided throughout the activity or intermittently. 3-Partial/Moderate Assistance-helper does LESS THAN HALF the effort. [place] lifts, holds or supports trunk or limbs, but provides less than half the effort. 2-Substantial/Maximal Assistance-helper does MORE THAN HALF the effort. [place] lifts or holds trunk or limbs and provides more than half the effort. 7-Xpizuczls-wziptn does ALL the effort. Patient does none of the effort to complete the activity. Or, the assistance of 2 or more helpers is required for the patient to complete the activity. If activity was not attempted, code reason: 7-Patient Refused. 9-Not Applicable-not attempted and the patient did not perform the activity before the current illness, exacerbation or injury. 10-Not Attempted due to Environmental Limitations-(lack of equipment, weather restraints, etc.). 88-Not Attempted due to Medical Conditions or Safety Concerns. Roll Left & Right (QC): 2 Weight Bearing Right Lower Extremity: Right Full Weight Bearing Left Lower Extremity: Left Full Weight Bearing Exercises Supine Ex: Ankle pumps, Quad Set, Rolling, Heel Slides, Short Arc Quads, Straight leg raise, Hip abd/add Supine Reps: 20 ((+) hip int/ext rot. Pt requiring AAROM with most ex's to increase range as pt with LE weakness and not putting much effort forth) Assessment Current Status: Poor Progress PT Short Term Goals Short Term Goals Time Frame: Oct 06, 2019 Roll Left & Right: 3 Sit to lyin Lying to sitting on side of be: 3 Sit to stand: 3 Chair/bmf-df-wocjh transfer: 3 Walk 10 feet: 3 PT Engraver [place]pperplate Goals Engraver [place] Goals PT Engraver [place] Goals Time Frame: Oct 20, 2019 Roll Left & Right (QC): 4 Sit to Lying (QC): 4 Lying-Sitting on Side/Bed(QC): 4 Sit to Stand (QC): 4 Chair/Ejo-wv-Dhfep Xfer(QC): 4 Car Transfer (QC): 4 Walk 10 feet (QC): 4 Walk 50ft with 2 Turns (QC): 4 PT Plan Treatment/Plan Treatment Plan: Continue Plan of Care Treatment Plan: Bed Mobility, Education, Functional Activity Sammie, Functional Strength, Group Therapy, Gait, Safety, Therapeutic Exercise, Transfers Treatment Duration: Oct 20, 2019 Frequency: At least 5 of 7 days/Wk (IRF) Estimated Hrs Per Day: 1.5 hours per day Patient and/or Family Agrees t: Yes Safety Risks/Education Patient Education: Safety Issues Teaching Recipient: Patient Teaching Methods: Discussion Response to Teaching: Verbalize Understanding, Reinforcement Needed Time/GCodes Time In: 859 Time Out: 912 Total Billed Treatment Time: 13 Total Billed Treatment 1 visit, EX x13 min SHAYNE FLORES TRIMMER LOADER Oct 08, 2019 10:28
--- NOTE | 2019-10-08 11:44 | PM&R Progress Note ---
Subjective HPI/CC On Admission Date Seen by Provider: Oct 08, 2019 Time Seen by Provider: 11:45 Subjective/Events-last exam Decreasing Urecholine to 25mg AC since incontinence is limiting her activity Did not get up last night to urinate for the first time so that reveals she is emptying her bladder now Slept well last night No loose stools yesterday and today Maintained on Questran BID Blood sugars reviewed Overall appears to be more motivated Neck pain is chronic but will attempt to use K-pad to help and she is willing to use that Conferred with RN Reviewed therapy notes Checked meds and labs Review of Systems General: Fatigue Neurological: Weakness Objective Exam Vital Signs Vital Signs Date Time Temp Pulse Resp B/P (MAP) Pulse Ox O2 Delivery O2 Flow Rate FiO2 10/08/19 17:20 36.0 68 20 125/67 (86) 96 Room Air Capillary Refill : Less Than 3 SecondsLess Than 3 Seconds General Appearance: No Apparent Distress, WD/WN, Chronically ill HEENT: PERRL/EOMI, Normal ENT Inspection, Pharynx Normal Neck: Full Range of Motion, Normal Inspection, Non Tender, Supple, Carotid Bruit Respiratory: Chest Non Tender, Lungs Clear, No Accessory Muscle Use, No Respiratory Distress, Decreased Breath Sounds Cardiovascular: No Edema, No Gallop, No JVD, No Murmur, Normal Peripheral Pulses, Irregularly Irregular Gastrointestinal: Normal Bowel Sounds, No Organomegaly, No Pulsatile Mass, Non Tender, Soft Back: Normal Inspection, No CVA Tenderness, No Vertebral Tenderness Extremity: Normal Capillary Refill, Normal Inspection, Normal Range of Motion, Non Tender, No Calf Tenderness, No Pedal Edema Neurologic/Psychiatric: Alert, Oriented x3, No Motor/Sensory Deficits, gas booster engineer II- XII Norm as Tested, Abnormal Gait, Depressed Affect, Motor Weakness (generalized weakness of all extremities, slow gait) Skin: Normal Color, Warm/Dry Lymphatic: No Adenopathy Results/Procedures Lab Patient resulted labs reviewed. FIM Transfers Therapy Code Descriptions/Definitions Functional [place] Measure: 0=Not Assessed/NA 4=Minimal Assistance 1=Total Assistance 5=Supervision or Setup 2=Maximal Assistance 6=Modified [place] 3=Moderate Assistance 7=Complete IndependenceSCALE: Activities may be completed with or without assistive devices. 6-Glagixlgme-ipcyuip completes the activity by him/herself with no assistance from a helper. 5-Set-up or Clean-up Assistance-helper sets up or cleans up; patient completes activity. [place] assists only prior to or following the activity. 4-Supervision or Touching Assistance-helper provides verbal cues and/or touching/steadying and/or contact guard assistance as patient completes activity. Assistance may be provided throughout the activity or intermittently. 3-Partial/Moderate Assistance-helper does LESS THAN HALF the effort. [place] lifts, holds or supports trunk or limbs, but provides less than half the effort. 2-Substantial/Maximal Assistance-helper does MORE THAN HALF the effort. [place] lifts or holds trunk or limbs and provides more than half the effort. 3-Vapejgvbe-urrjws does ALL the effort. Patient does none of the effort to complete the activity. Or, the assistance of 2 or more helpers is required for the patient to complete the activity. If activity was not attempted, code reason: 7-Patient Refused. 9-Not Applicable-not attempted and the patient did not perform the activity before the current illness, exacerbation or injury. 10-Not Attempted due to Environmental Limitations-(lack of equipment, weather restraints, etc.). 88-Not Attempted due to Medical Conditions or Safety Concerns. Roll Left to Right (QC): 2 Sit to Lying (QC): 4 Sit to Stand (QC): 4 Chair/Pfh-ol-Grhzh Xfer(QC): 4 Car Transfer (QC): 88 Gait Training Does the Patient Walk?: Yes Distance: 10' x2 Walk 10 feet (QC): 4 Walk 50 ft with 2 Turns(QC): 88 Walk 150 ft (QC): 88 Walking 10ft/uneven surface-QC: 88 Gait Persons Needed: 1 Gait Assistive Device: FWW Wheelchair Training Does the Pt Use a Wheelchair?: Yes Wheel 50 ft with 2 turns (QC): 3 Wheel 150 ft (QC): 1 Type of Wheelchair: Manual Stair Training 1 Step (curb) (QC): 88 4 Steps (QC): 88 12 Steps (QC): 88 Balance Picking up an Object (QC): 88 ADL-Treatment Eating (QC): 5 (Pt reports she required assistance opening mustard packet.) Oral Hygiene (QC): 6 Bathing Location: L Arm, R Arm, L Upper Leg, R Upper Leg, Chest, Abdomen, Perineal Area Shower/Bathe Self (QC): 3 Upper Body Dressing (QC): 3 Lower Body Dressing (QC): 2 On/Off Footwear (QC): 2 Toileting Hygiene (QC): 2 Toilet Transfer (QC): 4 Assessment/Plan Assessment and Plan Assess & Plan/Chief Complaint Assessment: Debility DM neuropathy DM insulin dependency on insulin pump UTI recurrent type completed abx Rocephin Loose stools added probiotic and Questran Urinary retention requiring Dr Bardales consultation now DC zepeda and monitor PVR with in/out caths but now emptying completely but incontinence noted Anemia Hypokalemia replacing Chronic neck pain adding K-pad Plan: Completed Rocephin last Thursday 8 days ago Bladder meds per Urology and monitor incontinence but emptying now Home meds Potassium supplement BID Monitor low sugars Questran K-pad (1) Weakness generalized Status: Acute (2) UTI (urinary tract infection) Status: Acute (3) CAD (coronary artery disease) (4) On continuous oral anticoagulation (5) SSS (sick sinus syndrome) Status: Chronic (6) Hypertension Status: Acute (7) Diabetic neuropathy Status: Acute (8) IDDM (insulin dependent diabetes mellitus) Status: Acute (9) Coronary artery disease Status: Chronic (10) Multi-vessel coronary artery stenosis Status: Acute (11) Peripheral vascular disease Status: Acute (12) Dizziness Status: Acute (13) History of ESBL E. coli infection Status: Chronic KIMMY HANSON DO Oct 08, 2019 11:44
[2019-10-08] MEDS: MICONAZOLE 2% POWDER (DESENEX AF) 90 GM TOP SCH ×2 (14:53→20:45)
--- NOTE | 2019-10-08 16:33 | NUR ---
PATIENT STATES THAT GRANDDAUGHTER IS BRINGING SUPPLIES FOR INSULIN PUMP. PATIENT REFUSED 4UNITS FROM THIS NURSE, STATING SHE WILL WAIT FOR GRANDDAUGHTER TO GET HERE.
[2019-10-08 17:20] VITALS: BP 125/67
--- NOTE | 2019-10-08 17:42 | NUR ---
DR. GOODSON IN TO SEE PATIENT. BLADDER SCAN SHOWED SCAN AMOUNT OF URINE. ORDER RECEIVED TO DECREASE URECHOLINE TO BID. PATIENT HAS NO C/O PAIN/BURNING/URGENCY/FREQUENCY WITH URINATION. FLUIDS ENCOURAGED, PATIENT CHOOSES TO DRINK MAINLY PEPSI. Addendum: 10/08/19 at 1745 by LAZ ABRAMS RN BLADDER SCAN SHOWED SCANT AMOUNT OF URINE.
[2019-10-08] MEDS: TAMSULOSIN 0.4 MG (FLOMAX) CAP PO SCH (17:53)
[2019-10-08] MEDS: SERTRALINE 50 MG (ZOLOFT) TABLET PO SCH (20:43)
[2019-10-08] MEDS: ROSUVASTATIN 20 MG (CRESTOR) TABLET PO SCH (20:44)
[2019-10-09 05:06] VITALS: BP 103/66
[2019-10-09] MEDS: inSUlin ASPART (NovoLOG) 1 UNIT/0.01 ML (CHARGE PER UNIT) SC SCH ×4 (05:22→19:56)
[2019-10-09] MEDS: KCL 10 MEQ TAB (MICRO K) PO SCH ×2 (05:38→17:38)
[2019-10-09] MEDS: MIDODRINE 10 MG (PROAMATINE) TAB PO SCH ×2 (05:38→17:38)
[2019-10-09] MEDS: CATHETER FLUSH 10 ML SYR IV SCH ×2 (05:39→14:00)
[2019-10-09] MEDS: CHOLESTYRAMINE 4 GM (QUESTRAN LITE, PREVALITE) PKT PO SCH ×2 (09:19→19:56)
[2019-10-09] MEDS: LACTOBACILLUS ACIDOPHILUS (PROBIOTIC) CAPSULE PO SCH ×3 (09:20→17:38)
[2019-10-09] MEDS: PANTOPRAZOLE 40 MG (PROTONIX) TAB PO SCH (09:20)
[2019-10-09] MEDS: APIXABAN 2.5 MG (ELIQUIS) TABLET PO SCH ×2 (09:20→19:56)
[2019-10-09] MEDS: CLOPIDOGREL 75 MG (PLAVIX) TABLET PO SCH (09:20)
[2019-10-09] MEDS: BETHANECHOL 25 MG (URECHOLINE) TAB PO SCH (09:20)
[2019-10-09] MEDS: ALLOPURINOL 100 MG (ZYLOPRIM) TAB PO SCH (09:21)
[2019-10-09] MEDS: TORSEMIDE 20 MG (DEMADEX) TAB PO SCH (09:21)
[2019-10-09] MEDS: DOCUSATE SODIUM 100 MG (COLACE) CAP PO SCH ×2 (09:24→19:26)
[2019-10-09] MEDS: NYSTATIN CREAM (MYCOSTATIN) 30 GM TUBE TP SCH ×3 (09:25→19:57)
[2019-10-09] MEDS: MICONAZOLE 2% POWDER (DESENEX AF) 90 GM TOP SCH ×2 (09:26→19:57)
--- NOTE | 2019-10-09 12:20 | PM&R Progress Note ---
Subjective HPI/CC On Admission Date Seen by Provider: Oct 09, 2019 Time Seen by Provider: 12:30 Subjective/Events-last exam K-pad is helping her right neck pain she has chronically Uses wheelchair more often at home and here now DC planned for tomorrow Daughter at bedside PVR is 0 Questran really helping her a great deal, minimal loose stools Really benefitted from stay in [facility] since urinary retention appears to be the ca usation of her recurrent UTI's Conferred with RN Reviewed therapy notes Checked meds and labs Review of Systems General: Fatigue Musculoskeletal: neck pain Objective Exam Vital Signs Vital Signs Date Time Temp Pulse Resp B/P (MAP) Pulse Ox O2 Delivery O2 Flow Rate FiO2 10/09/19 09:00 Room Air 10/09/19 05:06 36.0 64 18 103/66 (78) 93 Capillary Refill : Less Than 3 SecondsLess Than 3 Seconds General Appearance: No Apparent Distress, WD/WN, Chronically ill HEENT: PERRL/EOMI, Normal ENT Inspection, Pharynx Normal Neck: Full Range of Motion, Normal Inspection, Non Tender, Supple, Carotid Bruit Respiratory: Chest Non Tender, Lungs Clear, No Accessory Muscle Use, No Respir atory Distress, Decreased Breath Sounds Cardiovascular: No Edema, No Gallop, No JVD, No Murmur, Normal Peripheral Pulses, Irregularly Irregular Gastrointestinal: Normal Bowel Sounds, No Organomegaly, No Pulsatile Mass, Non Tender, Soft Back: Normal Inspection, No CVA Tenderness, No Vertebral Tenderness Extremity: Normal Capillary Refill, Normal Inspection, Normal Range of Motion, Non Tender, No Calf Tenderness, No Pedal Edema Neurologic/Psychiatric: Alert, Oriented x3, No Motor/Sensory Deficits, 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 FIM Transfers Therapy Code Descriptions/Definitions Functional [place] Measure: 0=Not Assessed/NA 4=Minimal Assistance 1=Total Assistance 5=Supervision or Setup 2=Maximal Assistance 6=Modified [place] 3=Moderate Assistance 7=Complete IndependenceSCALE: Activities may be completed with or without assistive devices. 4-Mdlntdkvqr-qbplsfk completes the activity by him/herself with no assistance from a helper. 5-Set-up or Clean-up Assistance-helper sets up or cleans up; patient completes activity. [place] assists only prior to or following the activity. 4-Supervision or Touching Assistance-helper provides verbal cues and/or touching/steadying and/or contact guard assistance as patient completes activity. Assistance may be provided throughout the activity or intermittently. 3-Partial/Moderate Assistance-helper does LESS THAN HALF the effort. [place] lifts, holds or supports trunk or limbs, but provides less than half the effort. 2-Substantial/Maximal Assistance-helper does MORE THAN HALF the effort. [place] lifts or holds trunk or limbs and provides more than half the effort. 0-Utsmrhibb-thvigy does ALL the effort. Patient does none of the effort to complete the activity. Or, the assistance of 2 or more helpers is required for the patient to complete the activity. If activity was not attempted, code reason: 7-Patient Refused. 9-Not Applicable-not attempted and the patient did not perform the activity before the current illness, exacerbation or injury. 10-Not Attempted due to Environmental Limitations-(lack of equipment, weather restraints, etc.). 88-Not Attempted due to Medical Conditions or Safety Concerns. Roll Left to Right (QC): 2 Sit to Lying (QC): 4 Sit to Stand (QC): 4 Chair/Aqp-le-Xwstc Xfer(QC): 4 Car Transfer (QC): 88 Gait Training Does the Patient Walk?: Yes Distance: 10' x2 Walk 10 feet (QC): 4 Walk 50 ft with 2 Turns(QC): 88 Walk 150 ft (QC): 88 Walking 10ft/uneven surface-QC: 88 Gait Persons Needed: 1 Gait Assistive Device: FWW Wheelchair Training Does the Pt Use a Wheelchair?: Yes Wheel 50 ft with 2 turns (QC): 3 Wheel 150 ft (QC): 1 Type of Wheelchair: Manual Stair Training 1 Step (curb) (QC): 88 4 Steps (QC): 88 12 Steps (QC): 88 Balance Picking up an Object (QC): 88 ADL-Treatment Eating (QC): 5 (Pt reports she required assistance opening mustard packet.) Oral Hygiene (QC): 6 Bathing Location: L Arm, R Arm, L Upper Leg, R Upper Leg, Chest, Abdomen, Perineal Area Shower/Bathe Self (QC): 3 Upper Body Dressing (QC): 3 Lower Body Dressing (QC): 2 On/Off Footwear (QC): 2 Toileting Hygiene (QC): 2 Toilet Transfer (QC): 4 Assessment/Plan Assessment and Plan Assess & Plan/Chief Complaint Assessment: Debility DM neuropathy DM insulin dependency on insulin pump UTI recurrent type completed abx Rocephin Loose stools added probiotic and Questran Urinary retention requiring Dr Bardales consultation now PVR 0 on Urecholine 25mg dosing Anemia Hypokalemia replacing Chronic neck pain added K-pad which helped Plan: Completed Rocephin last Thursday 9 days ago Bladder meds per Urology and monitor incontinence but emptying now Home meds Potassium supplement BID Monitor low sugars Questran K-pad DC tomorrow (1) Weakness generalized Status: Acute (2) UTI (urinary tract infection) Status: Acute (3) CAD (coronary artery disease) (4) On continuous oral anticoagulation (5) SSS (sick sinus syndrome) Status: Chronic (6) Hypertension Status: Acute (7) Diabetic neuropathy Status: Acute (8) IDDM (insulin dependent diabetes mellitus) Status: Acute (9) Coronary artery disease Status: Chronic (10) Multi-vessel coronary artery stenosis Status: Acute (11) Peripheral vascular disease Status: Acute (12) Dizziness Status: Acute (13) History of ESBL E. coli infection Status: Chronic KIMMY HANSON DO Oct 09, 2019 12:20
--- NOTE | 2019-10-09 15:46 | NUR ---
PATIENT'S GLUCOSE SENSOR OUT OF SUPPLIES AT THIS TIME. MUST TAKE MANUAL BLOOD SUGAR READINGS.
[2019-10-09 17:07] VITALS: BP 120/67
[2019-10-09] MEDS: TAMSULOSIN 0.4 MG (FLOMAX) CAP PO SCH (17:38)
[2019-10-09] MEDS: ROSUVASTATIN 20 MG (CRESTOR) TABLET PO SCH (19:55)
[2019-10-09] MEDS: SERTRALINE 50 MG (ZOLOFT) TABLET PO SCH (19:55)
[2019-10-10 05:14] VITALS: BP 115/63
[2019-10-10] MEDS: inSUlin ASPART (NovoLOG) 1 UNIT/0.01 ML (CHARGE PER UNIT) SC SCH ×2 (05:35→10:21)
[2019-10-10] MEDS: MIDODRINE 10 MG (PROAMATINE) TAB PO SCH (05:37)
[2019-10-10] MEDS: KCL 10 MEQ TAB (MICRO K) PO SCH (05:37)
[2019-10-10 06:42] LABS: BASOPHILS % (AUTO) 1 % (0-10); EOSINOPHILS # (AUTO) 0.2 10^3/uL (0.0-0.3); EOSINOPHILS % (AUTO) 3 % (0-10); HEMATOCRIT 36 % (35-52); HEMOGLOBIN 10.9 G/DL (11.5-16.0); LYMPHOCYTES # (AUTO) 1.8 X 10^3 (1.0-4.0); LYMPHOCYTES % (AUTO) 28 % (12-44); MEAN CORPUSCULAR HEMOGLOBIN 24 PG (25-34); MEAN CORPUSCULAR HGB CONC 30 G/DL (32-36); MEAN CORPUSCULAR VOLUME 80 FL (80-99); MEAN PLATELET VOLUME 9.8 FL (7.4-10.4); MONOCYTES # (AUTO) 0.7 X 10^3 (0.0-1.0); MONOCYTES % (AUTO) 11 % (0-12); NEUTROPHILS # (AUTO) 3.7 X 10^3 (1.8-7.8); NEUTROPHILS % (AUTO) 58 % (42-75); PLATELET COUNT 204 10^3/uL (130-400); RED CELL DISTRIBUTION WIDTH 26.5 % (10.0-14.5); WHITE BLOOD COUNT 6.4 10^3/uL (4.3-11.0)
[2019-10-10 07:00] LABS: BILIRUBIN,TOTAL 0.7 MG/DL (0.1-1.0); CALCIUM 9.3 MG/DL (8.5-10.1); CREATININE SERUM 2.21 MG/DL (0.60-1.30); POTASSIUM 4.6 MMOL/L (3.6-5.0); TOTAL PROTEIN 5.9 GM/DL (6.4-8.2)
[2019-10-10] MEDS: APIXABAN 2.5 MG (ELIQUIS) TABLET PO SCH (08:14)
[2019-10-10] MEDS: PANTOPRAZOLE 40 MG (PROTONIX) TAB PO SCH (08:14)
[2019-10-10] MEDS: ALLOPURINOL 100 MG (ZYLOPRIM) TAB PO SCH (08:14)
[2019-10-10] MEDS: LACTOBACILLUS ACIDOPHILUS (PROBIOTIC) CAPSULE PO SCH (08:15)
[2019-10-10] MEDS: CLOPIDOGREL 75 MG (PLAVIX) TABLET PO SCH (08:15)
[2019-10-10] MEDS: CHOLESTYRAMINE 4 GM (QUESTRAN LITE, PREVALITE) PKT PO SCH (08:15)
--- NOTE | 2019-10-10 08:43 | Occupational Ther Daily Note ---
OT Current Status-Daily Note Subjective Pt alert, lying in bed. Pt agrees to therapy. No c/o pain. Pt states she is going home today. Attempted to complete shower reassessment with pt today. Pt stated, "I am done with this shit and don't want a shower." Attempted to encourage pt to take a shower and pt stated that she wanted to take a shower at home because she can get clean in her shower not ours, it doesn't have any water pressure here. Mental Status/Objective Patient Orientation: Person, Place, Time, Situation ADL-Treatment Pt refused shower, agrees to sponge bath. Pt demonstrates ability to set own meal and use regular utensils to eat. Min A for supine to EOB. Min A for sit to stand from higher surface. Ambulated to bathroom using FWW with CGA. CGA for transfer to/from toilet using grabbars. Max A for toileting hygiene and clothing manipulation. Max A for lower body dressing and footwear. Min A to pull shirt down in back and hook bra. Sitting at sink, pt able to complete own oral care and grooming. After therapy, pt sitting in recliner with call light/phone in reach. All needs met in room. Therapy Code Descriptions/Definitions Functional [place] Measure: 0=Not Assessed/NA 4=Minimal Assistance 1=Total Assistance 5=Supervision or Setup 2=Maximal Assistance 6=Modified [place] 3=Moderate Assistance 7=Complete IndependenceSCALE: Activities may be completed with or without assistive devices. 5-Jvzgwypjbt-pyqjgrc completes the activity by him/herself with no assistance from a helper. 5-Set-up or Clean-up Assistance-helper sets up or cleans up; patient completes activity. [place] assists only prior to or following the activity. 4-Supervision or Touching Assistance-helper provides verbal cues and/or touching/steadying and/or contact guard assistance as patient completes activity. Assistance may be provided throughout the activity or intermittently. 3-Partial/Moderate Assistance-helper does LESS THAN HALF the effort. [place] lifts, holds or supports trunk or limbs, but provides less than half the effort. 2-Substantial/Maximal Assistance-helper does MORE THAN HALF the effort. [place] lifts or holds trunk or limbs and provides more than half the effort. 6-Jcndkzvnr-sgixxh does ALL the effort. Patient does none of the effort to complete the activity. Or, the assistance of 2 or more helpers is required for the patient to complete the activity. If activity was not attempted, code reason: 7-Patient Refused. 9-Not Applicable-not attempted and the patient did not perform the activity before the current illness, exacerbation or injury. 10-Not Attempted due to Environmental Limitations-(lack of equipment, weather restraints, etc.). 88-Not Attempted due to Medical Conditions or Safety Concerns. Eating (QC): 6 Oral Hygiene (QC): 6 Shower/Bathe Self (QC): 2 Upper Body Dressing (QC): 3 Lower Body Dressing (QC): 2 On/Off Footwear: 2 Toileting Hygiene (QC): 2 Toilet Transfer (QC): 4 OT Short Term Goals Short Term Goals Time Frame: Oct 10, 2019 Shower/bathe self: 3 Lower body dressin OT Nursing Home Goals Kitchen Steward Goals Time Frame: Oct 20, 2019 Eating (QC): 6 Oral Hygiene (QC): 6 Toileting Hygiene (QC): 3 Shower/Bathe Self (QC): 4 Upper Body Dressing (QC): 5 Lower Body Dressing (QC): 3 On/Off Footwear (QC): 3 Additional Goals: 1-Demonstrate ADL Tasks, 2-Verbalize Understanding, 3- ImproveStrength/[place]ammie 1=Demonstrate adherence to instructed precautions during ADL tasks. 2=Patient will verbalize/demonstrate understanding of assistive devices/modifications for ADL. 3=Patient will improve strength/tolerance for activity to enable patient to perform ADL's. OT Education/Plan Problem List/Assessment Assessment: Decreased Activ Tolerance, Decreased Safety Aware, Decreased UE Strength, Impaired Bed Mobility, Impaired Cognition, Impaired Coordination, Impaired Funct Balance, Impaired I ADL's, Impaired Self-Care Skills Discharge Recommendations Plan/Recommendations: Continue POC Treatment Plan/Plan of Care Patient would benefit from OT for education, treatment and training to promote independence in ADL's, mobility, safety and/or upper extremity function for ADL's. Plan of Care: ADL Retraining, Functional Mobility, Group Exercise/Act as Ind, UE Funct Exercise/Act Treatment Duration: Oct 20, 2019 Frequency: At least 5 of 7 days/Wk (IRF) Estimated Hrs Per Day: 1.5 hours per day Agreement: Yes Rehab Potential: Guarded Time/GCodes Start Time: 07:15 Stop Time: 08:30 Total Time Billed (hr/min): 75 Billed Treatment Time 1 visit-ADL 5 (75 min) KEMAR DEAN Oct 10, 2019 08:43
[2019-10-10] MEDS ORDERED: BETHANECHOL 25 MG (URECHOLINE) TAB PO SCH (09:00)
[2019-10-10] MEDS ORDERED: BETH25TA11 PO (09:01)
[2019-10-10] MEDS ORDERED: MICO90PO TOP (09:01)
[2019-10-10] MEDS ORDERED: ZINC28PA TOP (09:01)
[2019-10-10] MEDS ORDERED: TMSL.4C PO (09:01)
[2019-10-10] MEDS ORDERED: CHOL4PAC3 PO (09:01)
[2019-10-10] MEDS ORDERED: NYST15CR TP (09:01)
--- NOTE | 2019-10-10 09:03 | D/C HH Face to Face Order ---
D/C Face to Face Orders Reconcile Patient Problems Problems Reviewed?: Yes Instructions for Patient [facility], Patient Instructions/FollowUp: Dr Gonzales in 1 week BMP to check renal function on Thursday Physician to follow Patient: Janet Discharge Diet for Home: ADA Diet Patient Problems: Debility Recurrent UTI Loose stools c diff negative Patient Data-Allergies,Ht & Wt Patient Allergies: Coded Allergies: sulfamethoxazole (Verified Allergy, Intermediate, 10/05/15) tramadol (Verified Allergy, Intermediate, 10/05/15) trimethoprim (Verified Allergy, Intermediate, 10/05/15) Penicillins (Verified Allergy, Unknown, 10/05/15) codeine (Verified Allergy, Unknown, CAN TAKE MORPHINE, 10/05/15) hydrocodone (Verified Allergy, Unknown, 10/05/15) morphine (Verified Adverse Reaction, Intermediate, Nausea, 06/03/19) amiodarone (Verified Adverse Reaction, Mild, NAUSEA, dizziness, 02/01/16) Height (Feet): 5 Height (Inches): 6.00 Weight (Pounds): 223 Weight (Ounces): 0.5 Home Health Need/Face to Face Date of Face to Face: Oct 10, 2019 Clinical Findings: Generalized weakness and fatigue, Instability, Muscle weakness, Unsteady gait I have seen Pt [id number]: Yes Discharged To: Home Diagnosis/Conditions: Debility Recurrent UTI Loose stools c diff negative Patient is Homebound due to: [place] fall risk due to instabilty, Muscle weakness Homebound Status Due to the above stated illness, injury or surgical procedure (medical condition or diagnosis) and associated clinical findings, the patient is homebou nd because of his/her inability to leave home except with aid of a supportive device and/or person AND leaving the home requires a considerable and taxing effort or is medically contraindicated. Pt req the following assistanc: [facility] Nursing Orders Home Health Services Order: Nursing Services (check renal function regularly), Spouting Installer-Evaluate & Treat, Physical Therapy-Evaluate & Treat Certify Stmt I certify that this patient is under my care and that I, a nurse practitioner or a physician; a autopsy assistant working with me, had a face to face encounter that - meets the physician face to face encounter requirements with this patient as dated. KIMMY HANSON DO Oct 10, 2019 09:03
--- NOTE | 2019-10-10 09:04 | Discharge Summary ---
Diagnosis/Chief Complaint Date of Admission Sep 29, 2019 at 11:30 Date of Discharge Discharge Date: Oct 10, 2019 Discharge Diagnosis Assessment: Debility DM neuropathy DM insulin dependency on insulin pump UTI recurrent type completed abx Rocephin Loose stools added probiotic and Questran Urinary retention requiring Dr Bardales consultation now PVR 0 on Urecholine 25mg dosing Anemia Hypokalemia replacing Chronic neck pain added K-pad which helped Plan: Completed Rocephin last Thursday 9 days ago Bladder meds per Urology and monitor incontinence but emptying now Home meds Potassium supplement BID Monitor low sugars Questran K-pad DC tomorrow (1) Weakness generalized Status: Acute (2) UTI (urinary tract infection) Status: Acute (3) CAD (coronary artery disease) (4) On continuous oral anticoagulation (5) SSS (sick sinus syndrome) Status: Chronic (6) Hypertension Status: Acute (7) Diabetic neuropathy Status: Acute (8) IDDM (insulin dependent diabetes mellitus) Status: Acute (9) Coronary artery disease Status: Chronic (10) Multi-vessel coronary artery stenosis Status: Acute (11) Peripheral vascular disease Status: Acute (12) Dizziness Status: Acute (13) History of ESBL E. coli infection Status: Chronic Discharge Summary Discharge Physical Examination Allergies: Coded Allergies: sulfamethoxazole (Verified Allergy, Intermediate, 10/05/15) tramadol (Verified Allergy, Intermediate, 10/05/15) trimethoprim (Verified Allergy, Intermediate, 10/05/15) Penicillins (Verified Allergy, Unknown, 10/05/15) codeine (Verified Allergy, Unknown, CAN TAKE MORPHINE, 10/05/15) hydrocodone (Verified Allergy, Unknown, 10/05/15) morphine (Verified Adverse Reaction, Intermediate, Nausea, 06/03/19) amiodarone (Verified Adverse Reaction, Mild, NAUSEA, dizziness, 02/01/16) Vitals & I&Os Vital Signs Date Time Temp Pulse Resp B/P (MAP) Pulse Ox O2 Delivery O2 Flow Rate FiO2 10/10/19 09:00 Room Air 10/10/19 05:14 36.5 73 18 115/63 (80) 95 General Appearance: Alert, Oriented X3, Cooperative Respiratory: Clear to Auscultation Cardiovascular: Regular Rate Neuro: Normal Speech, Strength at 5/5 X4 Ext Psych/Mental Status: Mental Status NL Hospital Course Was the Problem List Reviewed?: Yes Hospital course: patient had a 12 days course in IRF after she was moved from 4th floor for recurrent UTI and ARF with DM OOC on insulin pump. Patient was able to participate with all therapies and ultimately was able to move around with 1 assist. Urinary retention was resolved with the help of Dr Bardales with the use of Urecholine and PVR monitoring. Loose stools resolved with Questran BID and sugar was maintained on insulin pump with good control. Patient was ready for DC with her family. Labs (last 24 hrs) Laboratory Tests 09/29/19 11:30: Lab Scanned Report Referred Lab Report 09/29/19 15:29: Glucometer 151H 09/30/19 05:28: Glucometer 120H 09/30/19 05:32: White Blood Count 6.1, Red Blood Count 4.77, Hemoglobin 11.6, Hematocrit 38, Mean Corpuscular Volume 80, Mean Corpuscular Hemoglobin 24L, Mean Corpuscular Hemoglobin Concent 30L, Red Cell Distribution Width , Platelet Count 186, Mean Platelet Volume 8.8, Neutrophils (%) (Auto) 60, Lymphocytes (%) (Auto) 26, Monocytes (%) (Auto) 11, Eosinophils (%) (Auto) 3, Basophils (%) (Auto) 1, Neutrophils # (Auto) 3.6, Lymphocytes # (Auto) 1.6, Monocytes # (Auto) 0.7, Eosinophils # (Auto) 0.2, Basophils # (Auto) 0.0, Sodium Level 138, Potassium Level 3.2L, Chloride Level 97L, Carbon Dioxide Level 31, Anion Gap 10, Blood Urea Nitrogen 19H, Creatinine 1.26, Estimat Glomerular Filtration Rate 41, BUN/Creatinine Ratio 15, Glucose Level 96, Calcium Level 8.3L, Corrected Calcium 9.3, Total Bilirubin 0.4, Aspartate Amino Transf (AST/SGOT) 26, Alanine Aminotransferase (ALT/SGPT) 13, Alkaline Phosphatase 112, Total Protein 5.5L, Albumin 2.8L 10/01/19 05:45: Glucometer 144H 10/02/19 11:10: Glucometer 116H 10/03/19 06:00: White Blood Count 6.3, Red Blood Count 4.50, Hemoglobin 10.8L, Hematocrit 36, Mean Corpuscular Volume 80, Mean Corpuscular Hemoglobin 24L, Mean Corpuscular Hemoglobin Concent 30L, Red Cell Distribution Width 28.5H, Platelet Count 178, Mean Platelet Volume 9.5, Neutrophils (%) (Auto) 58, Lymphocytes (%) (Auto) 27, Monocytes (%) (Auto) 12, Eosinophils (%) (Auto) 3, Basophils (%) (Auto) 0, Neutrophils # (Auto) 3.7, Lymphocytes # (Auto) 1.7, Monocytes # (Auto) 0.8, Eo sinophils # (Auto) 0.2, Basophils # (Auto) 0.0, Sodium Level 137, Potassium Level 3.1L, Chloride Level 97L, Carbon Dioxide Level 29, Anion Gap 11, Blood Urea Nitrogen 23H, Creatinine 2.07H, Estimat Glomerular Filtration Rate 23, BUN/Creatinine Ratio 11, Glucose Level 109H, Calcium Level 8.6, Corrected Calcium 9.5, Total Bilirubin 0.5, Aspartate Amino Transf (AST/SGOT) 33, Alanine Aminotransferase (ALT/SGPT) 15, Alkaline Phosphatase 123, Total Protein 5.6L, Albumin 2.9L 10/03/19 16:43: Glucometer 89 10/05/19 02:26: Glucometer 161H 10/05/19 05:39: Glucometer 188H 10/05/19 10:54: Glucometer 196H 10/05/19 15:29: Glucometer 234H 10/05/19 20:42: Glucometer 218H 10/06/19 09:20: Glucometer 93 10/06/19 10:48: Glucometer 95 10/08/19 15:37: Glucometer 182H 10/08/19 20:58: Glucometer 262H 10/09/19 05:15: Glucometer 142H 10/09/19 10:35: Glucometer 219H 10/09/19 15:50: Glucometer 213H 10/09/19 19:47: Glucometer 193H 10/10/19 05:09: Glucometer 141H 10/10/19 05:20: White Blood Count 6.4, Red Blood Count 4.51, Hemoglobin 10.9L, Hematocrit 36, Mean Corpuscular Volume 80, Mean Corpuscular Hemoglobin 24L, Mean Corpuscular Hemoglobin Concent 30L, Red Cell Distribution Width 26.5H, Platelet Count 204, Mean Platelet Volume 9.8, Neutrophils (%) (Auto) 58, Lymphocytes (%) (Auto) 28, Monocytes (%) (Auto) 11, Eosinophils (%) (Auto) 3, Basophils (%) (Auto) 1, Neutrophils # (Auto) 3.7, Lymphocytes # (Auto) 1.8, Monocytes # (Auto) 0.7, Eosinophils # (Auto) 0.2, Basophils # (Auto) 0.0, Sodium Level 139, Potassium Level 4.6, Chloride Level 101, Carbon Dioxide Level 25, Anion Gap 13, Blood Urea Nitrogen 29H, Creatinine 2.21H, Estimat Glomerular Filtration Rate 21, BUN/Creatinine Ratio 13, Glucose Level 142H, Calcium Level 9.3, Corrected Calcium 10.1, Total Bilirubin 0.7, Aspartate Amino Transf (AST/SGOT) 16, Alanine Aminotransferase (ALT/SGPT) 9, Alkaline Phosphatase 82, Total Protein 5.9L, Albumin 3.0L 10/10/19 10:15: Glucometer 253H Microbiology 10/04/19 Genital Culture - Final, Complete Usual Vaginal Angelica Pseudomonas aeruginosa Pending Labs Microbiology Date/Time Source Procedure Growth Status 10/04/19 21:30 Vaginal Genital Culture - Final Usual Vaginal Angelica Pseudomonas aeruginosa Complete Laboratory Tests 09/29/19 11:30: Lab Scanned Report Referred Lab Report 09/29/19 15:29: Glucometer 151 09/30/19 05:28: Glucometer 120 09/30/19 05:32: White Blood Count 6.1, Red Blood Count 4.77, Hemoglobin 11.6, Hematocrit 38, Mean Corpuscular Volume 80, Mean Corpuscular Hemoglobin 24, Mean Corpuscular Hemoglobin Concent 30, Red Cell Distribution Width , Platelet Count 186, Mean Platelet Volume 8.8, Neutrophils (%) (Auto) 60, Lymphocytes (%) (Auto) 26, Monocytes (%) (Auto) 11, Eosinophils (%) (Auto) 3, Basophils (%) (Auto) 1, Neutrophils # (Auto) 3.6, Lymphocytes # (Auto) 1.6, Monocytes # (Auto) 0.7, Eosinophils # (Auto) 0.2, Basophils # (Auto) 0.0, Sodium Level 138, Potassium Level 3.2, Chloride Level 97, Carbon Dioxide Level 31, Anion Gap 10, Blood Urea Nitrogen 19, Creatinine 1.26, Estimat Glomerular Filtration Rate 41, BUN/Creatinine Ratio 15, Glucose Level 96, Calcium Level 8.3, Corrected Calcium 9.3, Total Bilirubin 0.4, Aspartate Amino Transf (AST/SGOT) 26, Alanine Aminotransferase (ALT/SGPT) 13, Alkaline Phosphatase 112, Total Protein 5.5, Albumin 2.8 10/01/19 05:45: Glucometer 144 10/02/19 11:10: Glucometer 116 10/03/19 06:00: White Blood Count 6.3, Red Blood Count 4.50, Hemoglobin 10.8, Hematocrit 36, Mean Corpuscular Volume 80, Mean Corpuscular Hemoglobin 24, Mean Corpuscular Hemoglobin Concent 30, Red Cell Distribution Width 28.5, Platelet Count 178, Mean Platelet Volume 9.5, Neutrophils (%) (Auto) 58, Lymphocytes (%) (Auto) 27, Monocytes (%) (Auto) 12, Eosinophils (%) (Auto) 3, Basophils (%) (Auto) 0, Neutrophils # (Auto) 3.7, Lymphocytes # (Auto) 1.7, Monocytes # (Auto) 0.8, Eosinophils # (Auto) 0.2, Basophils # (Auto) 0.0, Sodium Level 137, Potassium Level 3.1, Chloride Level 97, Carbon Dioxide Level 29, Anion Gap 11, Blood Urea Nitrogen 23, Creatinine 2.07, Estimat Glomerular Filtration Rate 23, BUN/Creatinine Ratio 11, Glucose Level 109, Calcium Level 8.6, Corrected Calcium 9.5, Total Bilirubin 0.5, Aspartate Amino Transf (AST/SGOT) 33, Alanine Aminotransferase (ALT/SGPT) 15, Alkaline Phosphatase 123, Total Protein 5.6, Albumin 2.9 10/03/19 16:43: Glucometer 89 10/05/19 02:26: Glucometer 161 10/05/19 05:39: Glucometer 188 10/05/19 10:54: Glucometer 196 10/05/19 15:29: Glucometer 234 10/05/19 20:42: Glucometer 218 10/06/19 09:20: Glucometer 93 10/06/19 10:48: Glucometer 95 10/08/19 15:37: Glucometer 182 10/08/19 20:58: Glucometer 262 10/09/19 05:15: Glucometer 142 10/09/19 10:35: Glucometer 219 10/09/19 15:50: Glucometer 213 10/09/19 19:47: Glucometer 193 10/10/19 05:09: Glucometer 141 10/10/19 05:20: White Blood Count 6.4, Red Blood Count 4.51, Hemoglobin 10.9, Hematocrit 36, Mean Corpuscular Volume 80, Mean Corpuscular Hemoglobin 24, Mean Corpuscular Hemoglobin Concent 30, Red Cell Distribution Width 26.5, Platelet Count 204, Mean Platelet Volume 9.8, Neutrophils (%) (Auto) 58, Lymphocytes (%) (Auto) 28, Monocytes (%) (Auto) 11, Eosinophils (%) (Auto) 3, Basophils (%) (Auto) 1, Neutrophils # (Auto) 3.7, Lymphocytes # (Auto) 1.8, Monocytes # (Auto) 0.7, Eosinophils # (Auto) 0.2, Basophils # (Auto) 0.0, Sodium Level 139, Potassium Level 4.6, Chloride Level 101, Carbon Dioxide Level 25, Anion Gap 13, Blood Urea Nitrogen 29, Creatinine 2.21, Estimat Glomerular Filtration Rate 21, BUN/Crea tinine Ratio 13, Glucose Level 142, Calcium Level 9.3, Corrected Calcium 10.1, Total Bilirubin 0.7, Aspartate Amino Transf (AST/SGOT) 16, Alanine Aminotransferase (ALT/SGPT) 9, Alkaline Phosphatase 82, Total Protein 5.9, Albumin 3.0 10/10/19 10:15: Glucometer 253 Discharge Home Medications: Active Scripts Active Boudreauxs (Zinc Oxide) 28 Gm Oint 0 Gm TOP NEEDED PRN Nystatin 15 Gm Cream..g. 0 Gm TP TID Lotrimin AF (Miconazole Nitrate) 90 Gm Powder 0 Gm TOP BID Prevalite Packet (Cholestyramine/Aspartame) 4 Gm Powd.pack 4 Gm PO BID Flomax (Tamsulosin HCl) 0.4 Mg Cap 0.4 Mg PO DAILY@1800 Urecholine (Bethanechol Chloride) 25 Mg Tablet 25 Mg PO DAILY Reported Sertraline HCl 25 Mg Tablet 25 Mg PO HS Ferrous Sulfate 325 Mg Tablet 325 Mg PO BID Diazepam 5 Mg Tablet 5 Mg PO DAILY PRN Vitamin D3 (Cholecalciferol (Vitamin D3)) 25 Mcg Capsule 25 Mcg PO 1200 Benadryl Allergy (Diphenhydramine HCl) 25 Mg Tablet 25 Mg PO Q6H PRN Hydroxyzine HCl 25 Mg Tablet 25-50 Mg PO HS PRN Metoprolol Succinate 25 Mg Tab.er.24h 12.5 Mg PO DAILY TAKES 1/2 (25MG) TABLET Eliquis (Apixaban) 5 Mg Tablet 2.5 Mg PO BID TAKES 1/2 (5MG) TABLET Zofran (Ondansetron HCl) 4 Mg Tab 4 Mg PO Q6H PRN Colace (Docusate Sodium) 100 Mg Capsule 100 Mg PO HS Pantoprazole Sodium 40 Mg Tablet.dr 40 Mg PO DAILY Acetaminophen 325 Mg Tablet 650 Mg PO Q4H PRN Vitamin B-12 (Cyanocobalamin (Vitamin B-12)) 500 Mcg Tablet 1,000 Mcg PO 1200 Midodrine HCl 10 Mg Tablet 10 Mg PO BID Allopurinol 100 Mg Tablet 100 Mg PO DAILY Premarin (Estrogens Conjugated) 30 Gm Cr VG MOWEFR Rosuvastatin Calcium 20 Mg Tablet 20 Mg PO HS Victoza 2-Luis Enrique (Liraglutide) 0.6 Mg/0.1 Ml Pen.injctr 1.2 Mg SC HS Clopidogrel (Clopidogrel Bisulfate) 75 Mg Tablet 75 Mg PO DAILY Novolog (Insulin Aspart) 100 Unit/1 Ml Susp PER INSULIN PUMP MDD 110 UNITS PER DAY Instructions to patient/family Please see electronic discharge instructions given to patient. Diagnosis/Problems Diagnosis/Problems (1) Weakness generalized Status: Acute (2) UTI (urinary tract infection) Status: Acute (3) CAD (coronary artery disease) (4) On continuous oral anticoagulation (5) SSS (sick sinus syndrome) Status: Chronic (6) Hypertension Status: Acute (7) Diabetic neuropathy Status: Acute (8) IDDM (insulin dependent diabetes mellitus) Status: Acute (9) Coronary artery disease Status: Chronic (10) Multi-vessel coronary artery stenosis Status: Acute (11) Peripheral vascular disease Status: Acute (12) Dizziness Status: Acute (13) History of ESBL E. coli infection Status: Chronic Clinical Quality Measures DVT/VTE Risk/Contraindication: Risk Factor Score Per Nursin RFS Level Per Nursing on Admit: 4+=Very High KIMMY HANSON DO Oct 10, 2019 09:04
[2019-10-10] MEDS: DOCUSATE SODIUM 100 MG (COLACE) CAP PO SCH (09:05)
[2019-10-10] MEDS: NYSTATIN CREAM (MYCOSTATIN) 30 GM TUBE TP SCH (09:06)
[2019-10-10] MEDS: MICONAZOLE 2% POWDER (DESENEX AF) 90 GM TOP SCH (09:06)
--- NOTE | 2019-10-10 09:58 | Physical Therapy Daily Note ---
PT Daily Note-Current Subjective Pt agreeable to PT session with max encouragement. States she is going home today and needs to conserve her energy. Pt is requesting and insistent upon going home today and states she understands that she requires physical assist for bed mobility, transfers, toileting and gait, and stating that she can rely on her granddaughter and helpers to do it for her. Pain Numeric Pain Scale: 6 Comment: neck Appearance Pt sitting up in recliner awake and alert upon arrival. Pt requesting and assisted to bathroom, dependent with carlos care, mod A pulling down and up depends and pants. At end of session, pt requesting and assisted to bed, call light phone and bedside table within reach. Mental Status Patient Orientation: Person, Place, Time, Eyes Open, Situation Transfers SCALE: Activities may be completed with or without assistive devices. 3-Xefbovimrf-ypefkxv completes the activity by him/herself with no assistance from a helper. 5-Set-up or Clean-up Assistance-helper sets up or cleans up; patient completes activity. [place] assists only prior to or following the activity. 4-Supervision or Touching Assistance-helper provides verbal cues and/or touching/steadying and/or contact guard assistance as patient completes activity. Assistance may be provided throughout the activity or intermittently. 3-Partial/Moderate Assistance-helper does LESS THAN HALF the effort. [place] lifts, holds or supports trunk or limbs, but provides less than half the effort. 2-Substantial/Maximal Assistance-helper does MORE THAN HALF the effort. [place] lifts or holds trunk or limbs and provides more than half the effort. 7-Atbbonabw-rukslh does ALL the effort. Patient does none of the effort to complete the activity. Or, the assistance of 2 or more helpers is required for the patient to complete the activity. If activity was not attempted, code reason: 7-Patient Refused. 9-Not Applicable-not attempted and the patient did not perform the activity before the current illness, exacerbation or injury. 10-Not Attempted due to Environmental Limitations-(lack of equipment, weather restraints, etc.). 88-Not Attempted due to Medical Conditions or Safety Concerns. Roll Left & Right (QC): 3 Sit to Lying (QC): 3 (use of bedrail and physical A with LE's) Lying to Sitting/Side of Bed(Q: 3 (physical A with LE's) Sit to Stand (QC): 3 (x7 sit to and from stand transfers performed throughout tx session, inconsistant with ability to stand requiring CGA at times up to mod A. Constant verb inst for hand placement sit to and from stand and CGA to min A stand to sit due to pt sitting unsafely before getting to chair and to control descent. x2 episodes retro lean ablet to correct with min A and verb inst) Chair/Njm-kp-Iqhfq Xfer(QC): 4 (pivot transfer with CGA) Toilet Transfer (QC): 4 (use of grab bars) Car Transfer (QC): 3 (Physical A with LE's. verb inst for technique) Weight Bearing Right Lower Extremity: Right Full Weight Bearing Left Lower Extremity: Left Full Weight Bearing Gait Training Does the Patient Walk?: Yes Distance: 15 x2 Walk 10 feet (QC): 4 Walk 50 ft with 2 Turns(QC): 88 (pt fatigue too quickly with LE's weakening) Walk 150 ft (QC): 9 Walking 10ft/uneven surface-QC: 9 Gait Persons Needed: 1 Gait Assistive Device: FWW kyphotic fwd flexed, very slow pace, decreased step length, height, heel strike and toe off, lacks knee ext B Wheelchair Training Does the Pt Use a Wheelchair?: Yes Wheel 50 ft with 2 turns (QC): 7 Wheel 150 ft (QC): 9 Type of Wheelchair: Manual pt did maneuver w/c approx 10 ft very slow with B UE's and LE's but without A Stair Training 1 Step (curb) (QC): 9 4 Steps (QC): 9 12 Steps (QC): 9 Balance Picking up an Object (QC): 9 Treatments education, safety, transfers, bed mobility, toileting, carlos care, gait, w/c mobility, activity tolerance, functional mobility Assessment Current Status: Fair Progress Pt is self limiting at times and demonstrates inconsistencies with abilities during activities requiring CGA to mod A. Pt is very slow at performing all activities. Pt does have occasional retro lean/LOB sit to stand approx 25% of transfers performed. Max encouragement and inst required for pt to perform activities and to put effort forth to decrease stress on her CG's and herself. PT Short Term Goals Short Term Goals Time Frame: Oct 06, 2019 Roll Left & Right: 3 Sit to lyin Lying to sitting on side of be: 3 Sit to stand: 3 Chair/hpf-gg-wumdh transfer: 3 Walk 10 feet: 3 PT Custodial Goals Custodial Goals PT Trapper Bird Goals Time Frame: Oct 20, 2019 Roll Left & Right (QC): 4 Sit to Lying (QC): 4 Lying-Sitting on Side/Bed(QC): 4 Sit to Stand (QC): 4 Chair/Ezy-gt-Jouli Xfer(QC): 4 Car Transfer (QC): 4 Walk 10 feet (QC): 4 Walk 50ft with 2 Turns (QC): 4 PT Plan Treatment/Plan Treatment Plan: Discontinue PT (goals not met but pt insistent upon discharging home today) Treatment Plan: Bed Mobility, Education, Functional Activity Sammie, Functional Strength, Group Therapy, Gait, Safety, Therapeutic Exercise, Transfers Treatment Duration: Oct 20, 2019 Frequency: At least 5 of 7 days/Wk (IRF) Estimated Hrs Per Day: 1.5 hours per day Patient and/or Family Agrees t: Yes Safety Risks/Education Patient Education: Gait Training, Transfer Techniques, Reviewed Precautions, Correct Positioning, W/C Management, Safety Issues Teaching Recipient: Patient Teaching Methods: Demonstration, Discussion Response to Teaching: Verbalize Understanding, Return Demonstration, Reinforcement Needed Discharge Recommendations Therapy Discharge Recommendati: 24 Hour Supervision, Home & Family, Post Acute PT Barriers to Progress self limiting and decreased compliance Time/GCodes Time In: 900 Time Out: 1010 Total Billed Treatment Time: 70 Total Billed Treatment 1 visit, FA 45 min, GT 15 min, WC 10 SHAYNE FLORES PTA Oct 10, 2019 09:58
--- NOTE | 2019-10-10 11:38 | Speech Therapy Daily Note ---
Speech Daily Progress Note Subjective Date Seen by Provider: Oct 10, 2019 Time Seen by Provider: 00:30 Patient states she is going home today at 11:00. Objective Patient completed a series of problem solving tasks related to her return home with 90% given minimal cues. Assessment Assessment Current Status: Good Progress Treatment Plan Continue Plan of Care Speech Short Term Goals Short Term Goals Short Term Goals 1) The patient will complete memory tasks as related to her daily needs at 80% or greater with minimal cues. 2) The patient will complete safety awareness tasks as related to her daily needs at 80% or greater with minimal cues. 3) The patient will complete problem solving tasks as related to her daily needs at 80% or greater with minimal cues. Speech Fruit Culler Goals Residential Goals Patient will improve cognitive-communication necessary for safety and daily living tasks with minimal assist. Speech-Plan Patient/Family Goals Patient/Family Goals: Patient will be returning to her home where she lives with her grand daughter. Treatment Plan Speech Therapy Treatment Plan: Continue Plan of Care Treatment Duration: Sep 29, 2019 Frequency: 5 times per week Estimated Hrs Per Day: .5 hour per day Rehab Potential: Guarded Barriers to Learning: Patient had moderate cognitive deficits initially, however these have primarily resolved. Pt/Family Agrees to Plan: Yes Safety Risks/Education Teaching Recipient: Patient Teaching Methods: Demonstration, Discussion Response to Teaching: Verbalize Understanding, Return Demonstration Education Topics Provided: Continued safety upon her return home. Time Speech Therapy Time In: 08:30 Speech Therapy Time Out: 09:00 Total Billed Time: 30 Billed Treatment Time 1, SLTS No QUALITY CODES: EXPRESSION OF IDEAS/WANTS: 4 UNDERSTANDING VERBAL CONTENT: 4 BRIEF INTERVIEW MENTAL STATUS: YES REPETITION OF 3 WORDS: 3 TEMPORAL ORIENTATION: YEAR: CORRECT, MONTH: CORRECT, DAY: CORRECT RECALL: SOCK: YES WITH CUE, COLOR: YES, BED: YES WITH CUE MEMORY/RECALL ABILITY: SEASON, THAT SHE IS IN THE [facility] Oct 10, 2019 11:38
--- NOTE | 2019-10-10 12:23 | NUR ---
orders rec'd from Dr. Kang. stop flomax and urecholine, and call Dr. Gentile office with any issues. This nurse called DPOA granddaughter, Johanna, to update with new orders. Voiced understanding, will stop those 2 medications.
--- NOTE | 2019-10-10 13:53 | NUR ---
CM/SS DISCHARGE Patient discharged home today. [facility]: Finalized with [facility] for RN, PT, OT. IN-HOME SERVICES: Patient has [employer] hours contracted with [facility]. Granddaughter Johanna Newman will reinstate and has already pursued possibility of additional approved hours due to change in condition. ARU staff informed Johanna last Thursday by phone of anticipated mandate of no visitors due to Covid19. Patient was to have labs reviewed today and potential for discharge to follow. Patient insisted she was discharging and Johanna was in agreement, she is working from home at this time. Patient, therefore, will have 09/02 oversight/assistance between family and caregivers. IMM2 was not signed because patient exited hospital on a Thursday and earlier than anticipated; however, patient and family requested and supported the discharge with no discussion of appeal or request to continue admission.
--- NOTE | 2019-10-10 15:31 | Therapy Team Discharge Summary ---
Therapy Discharge Summary Discharge Recommendations Date of Discharge Oct 10, 2019 at 11:30 Physical Therapy Patient came to rehab with UTI and weakness. Upon evaluation patient performed bed mobility with max assist, supine <-> sit max assist, sit <-> stand max assist, transfers mod assist, ambulated 8' with a rolling walker with max assist. Patient has been performing bed mobility and transfer training, balance and endurance training, functional strengthening, stair training, gait training, and education. 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 Now, patient performs bed mobility and transfers with min/mod assist, car transfer min/mod assist, and ambulated 15' with a rolling walker with CGA. Patient discharged from this facility today and will be discharged from PT at this time. Occupational Therapy Decreased Activ Tolerance, Decreased Safety Aware, Decreased UE Strength, Impaired Bed Mobility, Impaired Cognition, Impaired Coordination, Impaired Funct Balance, Impaired I ADL's, Impaired Self-Care Skills PT Instrument Room Technician Goals Assisted Goals PT Assisted Goals Time Frame: Oct 20, 2019 Roll Left to Right (QC): 4 Sit to Lying (QC): 4 Lying-Sitting on Side/Bed(QC): 4 Sit to Stand (QC): 4 Chair/Chc-sw-Vaymz Xfer(QC): 4 Car Transfer (QC): 4 Walk 10 feet (QC): 4 Walk 50ft with 2 Turns (QC): 4 OT Instrument Room Technician Goals Instrument Room Technician Goals Time Frame: Oct 20, 2019 Eating (QC): 6 Oral Hygiene (QC): 6 Shower/Bathe Self (QC): 4 Upper Body Dressing (QC): 5 Lower Body Dressing (QC): 3 On/Off Footwear (QC): 3 Toileting Hygiene (QC): 3 Additional Goals: 1-Demonstrate ADL Tasks, 2-Verbalize Understanding, 3-I mproveStrength/Sammie 1=Demonstrate adherence to instructed precautions during ADL tasks. 2=Patient will verbalize/demonstrate understanding of assistive devices/modifications for ADL. 3=Patient will improve strength/tolerance for activity to enable patient to perform ADL's. Speech Assisted Goals Assisted Goals Patient will improve cognitive-communication necessary for safety and daily living tasks with minimal assist. JAIME NUGENT PT Oct 10, 2019 15:31
--- NOTE | 2019-10-10 15:35 | Therapy Team Discharge Summary ---
Therapy Discharge Summary Discharge Recommendations Date of Discharge Oct 10, 2019 at 11:30 Therapy D/C Recommendations: Occupational Therapy Home Care Occupational Therapy Pt admitted to ARU on 09/29/2019 with dx of UTI/weakness. At [facility], pt required assistance with most ADLs, recently requiring ~100% assistance. Pt has a caregiver around 35 hours a week and has her daughter or granddaughter available when the caregiver is not present. At admission, pt required set up assistance with feeding and oral hygiene, she was dependent with showering, lower body dressing, toileting/toilet transfer due to requiring assist x2. She required max A with upper body dressing, and dependent with footwear due to being unable to reach her feet. OT txs focused on increasing independence in ADLs/functional mobility and strengthening. At discharge, pt was independent with feeding, mod I with oral hygiene (sitting at sink), Max A with showering, min A with upper body dressing, Max A lower body dressing, max A footwear, Max A toilet hygiene and CGA for toilet transfer. Pt met goals of being independent with feeding and oral hygiene. She did not meet any other goals prior to discharge, although she did demonstrate improvements. OT attempted to educate pt on AE for lower body dressing in order to increase her independence, but pt declined AE during txs. Pt discharged home on 10/10/2019, OT recommends continued skilled OT services (home health) in order for pt to continue to increase independence with ADLs and functional mobility. Decreased Activ Tolerance, Decreased Safety Aware, Decreased UE Strength, Impaired Bed Mobility, Impaired Cognition, Impaired Coordination, Impaired Funct Balance, Impaired I ADL's, Impaired Self-Care Skills PT Manager Clinical Research Goals Manager Clinical Research Goals PT Manager Clinical Research Goals Time Frame: Oct 20, 2019 Roll Left to Right (QC): 4 Sit to Lying (QC): 4 Lying-Sitting on Side/Bed(QC): 4 Sit to Stand (QC): 4 Chair/Eap-em-Kyakm Xfer(QC): 4 Car Transfer (QC): 4 Walk 10 feet (QC): 4 Walk 50ft with 2 Turns (QC): 4 OT Manager Clinical Research Goals Manager Clinical Research Goals Time Frame: Oct 20, 2019 Eating (QC): 6 (Met) Oral Hygiene (QC): 6 (Met) Shower/Bathe Self (QC): 4 (Not met, Max A) Upper Body Dressing (QC): 5 (not met, Min A) Lower Body Dressing (QC): 3 (Not Met, Max A) On/Off Footwear (QC): 3 (not met, Max A) Toileting Hygiene (QC): 3 (not met, Max A) Additional Goals: 1-Demonstrate ADL Tasks, 2-Verbalize Understanding, 3- ImproveStrength/Sammie 1=Demonstrate adherence to instructed precautions during ADL tasks. 2=Patient will verbalize/demonstrate understanding of assistive devices/modifications for ADL. 3=Patient will improve strength/tolerance for activity to enable patient to perform ADL's. Speech Jail Goals Jail Goals Patient will improve cognitive-communication necessary for safety and daily living tasks with minimal assist. LEILANI CUENCA OT Oct 10, 2019 15:35
--- NOTE | 2019-10-12 08:12 | Therapy Team Discharge Summary ---
Therapy Discharge Summary Discharge Recommendations Date of Discharge Oct 10, 2019 at 11:30 Therapy D/C Recommendations: Occupational Therapy Home Care Occupational Therapy Decreased Activ Tolerance, Decreased Safety Aware, Decreased UE Strength, Impaired Bed Mobility, Impaired Cognition, Impaired Coordination, Impaired Funct Balance, Impaired I ADL's, Impaired Self-Care Skills Speech-Language Pathology Patient was admitted to the ARU due to debility. Patient received skilled ST due to moderate cognitive deficits based on SLUMS score. Patient met goals and discharged to her home with family on 10/10/2019. PT Skilled Nursing Goals Mainframe Consultant Goals PT Mainframe Consultant Goals Time Frame: Oct 20, 2019 Roll Left to Right (QC): 4 Sit to Lying (QC): 4 Lying-Sitting on Side/Bed(QC): 4 Sit to Stand (QC): 4 Chair/Jth-nj-Ltcfy Xfer(QC): 4 Car Transfer (QC): 4 Walk 10 feet (QC): 4 Walk 50ft with 2 Turns (QC): 4 OT Skilled Nursing Goals Mainframe Consultant Goals Time Frame: Oct 20, 2019 Eating (QC): 6 (Met) Oral Hygiene (QC): 6 (Met) Shower/Bathe Self (QC): 4 (Not met, Max A) Upper Body Dressing (QC): 5 (not met, Min A) Lower Body Dressing (QC): 3 (Not Met, Max A) On/Off Footwear (QC): 3 (not met, Max A) Toileting Hygiene (QC): 3 (not met, Max A) Additional Goals: 1-Demonstrate ADL Tasks, 2-Verbalize Understanding, 3- ImproveStrength/Sammie 1=Demonstrate adherence to instructed precautions during ADL tasks. 2=Patient will verbalize/demonstrate understanding of assistive devices/modifications for ADL. 3=Patient will improve strength/tolerance for activity to enable patient to perform ADL's. Speech Skilled Nursing Goals Mainframe Consultant Goals Patient will improve cognitive-communication necessary for safety and daily living tasks with minimal assist. LORETTA COOMBS Oct 12, 2019 08:12
== END 2019-10-10 11:30 | disposition home health service (06) | DRG 948 ==
LOC: UNDOADMIN 12:03
PROVIDERS: ADMIT Internal Medicine; ATTEND Internal Medicine
DX: R53.81 Other malaise (principal); N39.0 Urinary tract infection, site not specified; B96.1 Klebsiella pneumoniae [K. pneumoniae] as the cause of diseases classified elsewhere; R33.9 Retention of urine, unspecified; N39.46 Mixed incontinence; N31.9 Neuromuscular dysfunction of bladder, unspecified; N32.81 Overactive bladder; R15.9 Full incontinence of feces; I48.20 Chronic atrial fibrillation, unspecified; I12.9 Hypertensive chronic kidney disease with stage 1 through stage 4 chronic kidney disease, or unspecified chronic kidney disease; N18.9 Chronic kidney disease, unspecified; E11.40 Type 2 diabetes mellitus with diabetic neuropathy, unspecified; R60.0 Localized edema; I73.9 Peripheral vascular disease, unspecified; I25.10 Atherosclerotic heart disease of native coronary artery without angina pectoris; I49.5 Sick sinus syndrome; M19.91 Primary osteoarthritis, unspecified site; D64.9 Anemia, unspecified; E87.6 Hypokalemia; M54.2 Cervicalgia; Z79.01 Long term (current) use of anticoagulants; Z95.5 Presence of coronary angioplasty implant and graft; Z95.0 Presence of cardiac pacemaker; Z90.710 Acquired absence of both cervix and uterus; Z90.722 Acquired absence of ovaries, bilateral
CPT/HCPCS: 36415; 80053; 82962; 85025; 87070; 87077; 87186; 87205

== ENCOUNTER 2019-12-01 15:23 | Inpatient (IN) | payer MEDICARE, MEDICAID ==
[~2019-12-01] VITALS: Ht 167.7 cm; Wt 101.0 kg
[~2019-12-01 15:23] MED LIST changes: +BETH25TA11 PO; +CHOL4PAC3 PO; +MICO90PO TOP; +NYST15CR TP; +TMSL.4C PO; +ZINC28PA TOP
[2019-12-01] MEDS ORDERED: ANTACID SUSP 30 ML UDC (MYLANTA) PO PRN (17:45)
[2019-12-01] MEDS ORDERED: ACETAMINOPHEN 325 MG TABLET PO PRN (17:45)
[2019-12-01] MEDS ORDERED: polyethylene glycoL POWDER 17 GM (MIRALAX) PACK PO PRN (17:45)
[2019-12-01] MEDS ORDERED: BISACODYL 10 MG SUPP (DULCOLAX) PR PRN (17:45)
[2019-12-01] MEDS ORDERED: ONDANSETRON 4 MG/2 ML (SDV) Z0FRAN IV PRN (17:45)
[2019-12-01] MEDS ORDERED: ONDANSETRON 4 MG (ZOFRAN) ORAL DISSOLVE TAB PO PRN (17:45)
[2019-12-01 17:48] VITALS: BP 103/59
[2019-12-01] MEDS ORDERED: hydrOXYzine (ATARAX) 10 MG TAB PO PRN (18:00)
[2019-12-01] MEDS ORDERED: DIAZEPAM 5 MG (VALIUM) TABLET PO PRN (18:00)
[2019-12-01] MEDS ORDERED: MEROPENEM 500 MG/SWFI 10 ML IV PUSH IV NR ×2 (18:00)
--- NOTE | 2019-12-01 18:06 | History & Physical-Hospitalist ---
History of Present Illness HPI/Chief Complaint Shamika Cain is an 79-year-old female with past medical history of hypertension, atrial fibrillation, chronic kidney disease, coronary artery disease, heart failure, depression, diabetes, who was directly admitted for a urinary tract infection. She has been getting home health and the worker noticed that she was more lethargic. She had a urinalysis done with her primary care physician which revealed a urinary tract infection. She has a history of ESBL Escherichia coli. She denies having fevers and chills. She denies any abdominal pain. She denies nausea and vomiting. She denies any chest pain or shortness of breath. She has no other complaints or concerns. She has been living at home. Source: patient Exam Limitations: no limitations Date Seen 12/01/19 Time Seen by a Provider: 17:45 Attending Physician Cris Walden MD PCP Rashaun Gonzales MD Referring Physician Date of Admission December 01, 2019 at 16:15 Home Medications & Allergies Home Medications Reviewed patient Home Medication Reconciliation performed by pharmacy medication reconciliations histotechnician and/or nursing. Patients Allergies have been reviewed. Allergies Allergies Coded Allergies sulfamethoxazole (Verified Allergy, Intermediate, 10/05/15) tramadol (Verified Allergy, Intermediate, 10/05/15) trimethoprim (Verified Allergy, Intermediate, 10/05/15) Penicillins (Verified Allergy, Unknown, 10/05/15) codeine (Verified Allergy, Unknown, CAN TAKE MORPHINE, 10/05/15) hydrocodone (Verified Allergy, Unknown, 10/05/15) morphine (Verified Adverse Reaction, Intermediate, Nausea, 06/03/19) amiodarone (Verified Adverse Reaction, Mild, NAUSEA, dizziness, 02/01/16) Past Xrdfhyo-Ekksgn-Jskaac Hx Past Med/Social Hx: Reviewed Nursing Past Med/Soc Hx Patient Social History 2nd Hand Smoke Exposure: No Recent Foreign Travel: No Contact w/other who traveled: No Recent Hopitalizations: No Recent Infectious Disease Expo: No Immunizations Up To Date Tetanus Booster (TDap): Less than 5yrs Date of Pneumonia Vaccine: Aug 02, 2018 Date of Influenza Vaccine: Apr 19, 2019 Seasonal Allergies Seasonal Allergies: No Past Medical History Surgeries: Cardiac, Coronary Stent, Gallbladder, Hysterectomy, Oophorectomy, Orthopedic, Pacemaker, Vascular Surgery Currently Using CPAP: No Currently Using BIPAP: No Cardiac: Atrial Fibrillation, Chronic Edema/Swelling, Coronary Artery Disease, Heart Attack, Heart Murmur, High Cholesterol, Hypertension, Peripheral Vascular, Rheumatic Fever Neurological: Neuropathy, TIA Reproductive: No Sexually Transmitted Disease: No Hysterectomy, Menopausal Genitourinary: Bladder Infection, UTI-Chronic Gastrointestinal: C-Diff, Irritable Bowel Musculoskeletal: Arthritis Endocrine: Diabetes, Insulin dep HEENT: Cataract Loss of Vision: Left Hearing Impairment: Deaf Cancer: Breast Did You Recieve Any Treatments: Yes What Type of Treatment Did You: Radiation History of Blood Disorders: No Adverse Reaction to Blood High: No Family History Cardiovascular disease 19 FATHER 19 MOTHER G8 BROTHER G8 SISTER G8 SISTER G8 SISTER Completed stroke 19 FATHER G8 SISTER Diabetes mellitus 19 FATHER G8 SISTER G8 SISTER FH: cancer G8 SISTER G8 SISTER Myocardial infarction G8 BROTHER (65 YEARS OLD) No Pertinent Family Hx Review of Systems Constitutional: weakness EENTM: no symptoms reported Respiratory: no symptoms reported Cardiovascular: no symptoms reported Gastrointestinal: no symptoms reported Genitourinary: no symptoms reported Musculoskeletal: no symptoms reported Skin: no symptoms reported Psychiatric/Neurological: No Symptoms Reported Physical Exam Physical Exam Vital Signs Vital Signs - First Documented 12/01/19 12/01/19 17:00 17:48 Temp 36.0 Pulse 58 Resp 16 B/P (MAP) 103/59 Pulse Ox 93 O2 Delivery Room Air Capillary Refill : Height, Weight, BMI Height: 5'6.00" Weight: 223lbs. 0.5oz. [id number]; 35.91 BMI Method:Stated General Appearance: No Apparent Distress, Obese HEENT: PERRL/EOMI, Pharynx Normal Neck: Normal Inspection, Supple Respiratory: Lungs Clear, Normal Breath Sounds, No Respiratory Distress Cardiovascular: Regular Rate, Rhythm, No Murmur Gastrointestinal: Normal Bowel Sounds, Non Tender, Soft Extremity: Normal Inspection, Pedal Edema Neurologic/Psychiatric: Alert, No Motor/Sensory Deficits, Normal Mood/Affect Skin: Normal Color, Warm/Dry Results Results/Procedures Labs Laboratory Tests 12/01/19 18:30 Patient resulted labs reviewed. Imaging: Reviewed Imaging Report Assessment/Plan Admission Diagnosis Urinary tract infection Admission Status: Inpatient Order (span 2 midnights) Reason for Inpatient Admission: UTI requiring IV antibiotics with history of ESBL Assessment and Plan UTI History of ESBL UA consistent with urinary tract infection Not septic Started on meropenem Await culture IV fluids Chronic kidney disease Creatinine 1.49, appears to be a baseline Continue to monitor Type II diabetes mellitus Sliding scale insulin Atrial fibrillation Continue Eliquis and Coreg Hypertension Depression Coronary artery disease Chronic congestive heart failure Continue home meds DVT prophylaxis: Already receiving therapeutic anticoagulation Diagnosis/Problems Diagnosis/Problems (1) UTI (urinary tract infection) Status: Acute (2) History of ESBL E. coli infection Status: Chronic (3) Hypertension Status: Chronic Qualifiers: Hypertension type: essential hypertension Qualified Codes: I10 - Essential (primary) hypertension (4) IDDM (insulin dependent diabetes mellitus) Status: Chronic (5) CKD (chronic kidney disease) Status: Chronic Qualifiers: Chronic kidney disease stage: stage 3 (moderate) Qualified Codes: N18.3 - Chronic kidney disease, stage 3 (moderate) CRIS AWLDEN MD December 01, 2019 18:06
[2019-12-01] MEDS ORDERED: hydrOXYzine (VISTARIL/ATARAX) 25 MG capsule/tablet PO PRN (18:15)
[2019-12-01] MEDS: LACTATED RINGERS 1,000 ML IV SCH (18:36)
[2019-12-01 18:45] LABS: BASOPHILS % (AUTO) 0 % (0-10); EOSINOPHILS # (AUTO) 0.1 10^3/uL (0.0-0.3); EOSINOPHILS % (AUTO) 1 % (0-10); HEMATOCRIT 37 % (35-52); HEMOGLOBIN 12.2 G/DL (11.5-16.0); LYMPHOCYTES # (AUTO) 1.4 X 10^3 (1.0-4.0); LYMPHOCYTES % (AUTO) 13 % (12-44); MEAN CORPUSCULAR HEMOGLOBIN 26 PG (25-34); MEAN CORPUSCULAR HGB CONC 33 G/DL (32-36); MEAN CORPUSCULAR VOLUME 80 FL (80-99); MEAN PLATELET VOLUME 9.1 FL (7.4-10.4); MONOCYTES # (AUTO) 1.1 X 10^3 (0.0-1.0); MONOCYTES % (AUTO) 10 % (0-12); NEUTROPHILS # (AUTO) 8.3 X 10^3 (1.8-7.8); NEUTROPHILS % (AUTO) 77 % (42-75); PLATELET COUNT 227 10^3/uL (130-400); RED CELL DISTRIBUTION WIDTH 18.5 % (10.0-14.5); WHITE BLOOD COUNT 10.8 10^3/uL (4.3-11.0)
[2019-12-01 18:56] LABS: ALBUMIN 2.4 GM/DL (3.2-4.5); POTASSIUM 4.4 MMOL/L (3.6-5.0)
[2019-12-01 18:57] LABS: CALCIUM 8.2 MG/DL (8.5-10.1)
[2019-12-01 18:58] LABS: TOTAL PROTEIN 5.6 GM/DL (6.4-8.2)
[2019-12-01 19:00] LABS: BILIRUBIN,TOTAL 1.1 MG/DL (0.1-1.0)
[2019-12-01 19:02] LABS: CREATININE SERUM 1.49 MG/DL (0.60-1.30)
[2019-12-01 19:59] VITALS: BP 103/66
[2019-12-01] MEDS: SENNOSIDES 8.6 MG (SENOKOT) TAB PO SCH (20:48)
[2019-12-01] MEDS: inSUlin ASPART (NovoLOG) 1 UNIT/0.01 ML (CHARGE PER UNIT) SC SCH (20:49)
[2019-12-01] MEDS: SERTRALINE 50 MG (ZOLOFT) TABLET PO SCH (20:49)
[2019-12-01] MEDS: APIXABAN 2.5 MG (ELIQUIS) TABLET PO SCH (20:49)
[2019-12-01] MEDS: DOCUSATE SODIUM 100 MG (COLACE) CAP PO SCH (20:49)
[2019-12-01 22:46] LABS: BILIRUBIN,URINE NEGATIVE (NEGATIVE); CLARITY,URINE CLEAR; COLOR,URINE YELLOW; GLUCOSE, URINE (UA) NEGATIVE (NEGATIVE); KETONES,URINE NEGATIVE (NEGATIVE); LEUKOCYTE ESTERASE ,URINE 3+ (NEGATIVE); NITRITE,URINE NEGATIVE (NEGATIVE); PROTEIN,URINE 1+ (NEGATIVE)
[2019-12-01 23:13] LABS: AMORPHOUS SEDIMENT,UR MOD AMOR PHOSPHATE /LPF; BACTERIA,URINE LARGE /HPF
[2019-12-02] VITALS: BP 125/77
[2019-12-02] MEDS: MEROPENEM 500 MG in WATER (STERILE) FOR INJECTION 10 ML IV SCH ×3 (02:10→17:45)
[2019-12-02 04:00] VITALS: BP 117/84
[2019-12-02] MEDS: LACTATED RINGERS 1,000 ML IV SCH (05:05)
[2019-12-02] MEDS: inSUlin ASPART (NovoLOG) 1 UNIT/0.01 ML (CHARGE PER UNIT) SC SCH ×4 (06:58→21:42)
[2019-12-02 08:00] VITALS: BP 99/62
[2019-12-02] MEDS: TAMSULOSIN 0.4 MG (FLOMAX) CAP PO SCH (08:43)
[2019-12-02] MEDS: PANTOPRAZOLE 40 MG (PROTONIX) TAB PO SCH (08:43)
[2019-12-02] MEDS: DOCUSATE SODIUM 100 MG (COLACE) CAP PO SCH ×2 (08:44→21:42)
[2019-12-02] MEDS: BETHANECHOL 25 MG (URECHOLINE) TAB PO SCH (08:44)
[2019-12-02] MEDS: SENNOSIDES 8.6 MG (SENOKOT) TAB PO SCH ×2 (08:44→21:42)
[2019-12-02] MEDS: CLOPIDOGREL 75 MG (PLAVIX) TABLET PO SCH (08:44)
[2019-12-02] MEDS: APIXABAN 2.5 MG (ELIQUIS) TABLET PO SCH ×2 (08:45→21:41)
--- NOTE | 2019-12-02 11:12 | Occupational Therapy Eval ---
OT Evaluation-General/PLF Medical Diagnosis Admission Date December 01, 2019 at 16:15 Medical Diagnosis: UTI, debility Onset Date: December 01, 2019 Therapy Diagnosis Therapy Diagnosis: Decreased ADL status Height/Weight Height (Feet): 5 Height (Inches): 6.00 Weight (Pounds): 223 Weight (Ounces): 0.5 Precautions Precautions/Isolations: Fall Prevention, Standard Precautions, Contact/Enteric Isolation Referral Physician: Ana Ga MD Referral Reason: Activity Tolerance, Self Care, Evaluation/Treatment, Strengthening/ROM Medical History Pertinent Medical History: Atrial Fib, CAD, DM, Heart Failure, HTN, HI, Neuropathy Additional Medical History coronary stent, pacemaker, a fib, chronic swelling, CAD, HI, high cholesterol, HTN, PVD, TIA, neuropathy, IDDM, chronic UTIs Current History Nursing states pt admit with severe UTI with puss. Per pt, pt was residing at home with 24/7 care. Pt d/[facility]'d from [facility] ~1 mo ago. Reviewed History: Yes Social History Home: Single Level Current Living Status: Other Family (granddaughter + caregiver 4 hours daily) ADL-Prior Level of Function SCALE: Activities may be completed with or without assistive devices. 5-Vhznhoride-wiyjqmh completes the activity by him/herself with no assistance from a helper. 5-Set-up or Clean-up Assistance-helper sets up or cleans up; patient completes activity. [place] assists only prior to or following the activity. 4-Supervision or Touching Assistance-helper provides verbal cues and/or touching/steadying and/or contact guard assistance as patient completes activity. Assistance may be provided throughout the activity or intermittently. 3-Partial/Moderate Assistance-helper does LESS THAN HALF the effort. [place] lifts, holds or supports trunk or limbs, but provides less than half the effort. 2-Substantial/Maximal Assistance-helper does MORE THAN HALF the effort. [place] lifts or holds trunk or limbs and provides more than half the effort. 6-Eejsyyxah-ztucic does ALL the effort. Patient does none of the effort to complete the activity. Or, the assistance of 2 or more helpers is required for the patient to complete the activity. If activity was not attempted, code reason: 7-Patient Refused. 9-Not Applicable-not attempted and the patient did not perform the activity before the current illness, exacerbation or injury. 10-Not Attempted due to Environmental Limitations-(lack of equipment, weather restraints, etc.). 88-Not Attempted due to Medical Conditions or Safety Concerns. ADL PLOF Comments Pt states she was residing at home, requiring 4 hours of assist for ADLs (pt states she was assisted in all tasks). When caregiver not present, pt's granddaughter who works from home able to assist. Pt states was utilizing w/c for fx mobility as she was unable to utilize 2WW due to increased foot drop. Self Care: Dependent Functional Cognition: Independent DME/Equipment: Bath Chair, Grab Bars, Shower DME/Equipment Comments w/c, 2WW Occupation: retired Drive Self: No OT Current Status Subjective Pt seen in bed. Pt awake, though decreased alertness/ slowed vocals. Pt oriented x3 Mental Status/Objective Patient Orientation: Person, Place, Situation Current Glasses/Contacts: Yes Hand Dominance: Right Upper Extremity ROM WFL BUE Upper Extremity Coordination WFL BUE Upper Extremity Sensation WFL BUE- though states neuropathy BLE Upper Extremity Strength Decreased BUE (3-/5) Edema: Pitting bilateral LEs to thighs ADL-Treatment Eating (QC): 6 (per pt has no difficulty eating.) Oral Hygiene (QC): 7 (denies on this date.) Shower/Bathe Self (QC): 2 (per pt report.) Lower Body Dressing (QC): 1 (per pt report.) On/Off Footwear (QC): 2 (per pt report.) Per pt, pt requires max-mod A with all showering/ dressing tasks. Other Treatments Pt seen in bed. Pt agrees to therapy, though denies OOB activities or any ADLs. Pt does not c/o pain at this time. Pt completes MMT/ ROM screening. Pt denies getting in to chair or toileting. Pt encouraged and denies again. Pt states receives assist with all ADLs. Pt states she has not been ambulating as she has not been utilizing brace and drop foot occurs. Pt states to get in/ out of shower she is able to utilize grab bars for stance. Pt states she would agree to participate in skilled therapy for endurance/ strength/ mobility training. Pt's LE's edematous (pitting bilaterally) and propped with 2 pillows with TD. Pt left in bed with all needs met, call light in reach. As pt receives assist for showering/ bathing, this will not be the main goal of OT sessions. Pt will benefit from strength/ endurance/ mobility training to increase QOL and increase ability to complete ADLs to max potential. Education OT Patient Education: Correct positioning, Purpose of tx/functional activities, Safety issues Teaching Recipient: Patient Teaching Methods: Discussion Response to Teaching: Verbalize Understanding, Return Demonstration OT Entry Level Machine Operator Goals Entry Level Machine Operator Goals Time Frame: December 09, 2019 Eating (QC): 6 Oral Hygiene (QC): 6 Upper Body Dressing (QC): 3 Additional Goals: 1-Demonstrate ADL Tasks, 2-Verbalize Understanding, 3- ImproveStrength/Sammie 1=Demonstrate adherence to instructed precautions during ADL tasks. 2=Patient will verbalize/demonstrate understanding of assistive devices/modifications for ADL. 3=Patient will improve strength/tolerance for activity to enable patient to perform ADL's. OT Education/Plan Problem List/Assessment Assessment: Decreased Activ Tolerance, Decreased UE Strength, Dependent Transfers, Edema, Impaired Bed Mobility, Impaired Funct Balance, Impaired I ADL's, Impaired Self-Care Skills Discharge Recommendations Plan/Recommendations: Continue POC Therapy Discharge Recommendati: 24 Hour Supervision, Bath Aide, Homemaker Support, Home & Family Treatment Plan/Plan of Care Treatment,Training & Education: Yes Patient would benefit from OT for education, treatment and training to promote independence in ADL's, mobility, safety and/or upper extremity function for ADL's. Plan of Care: ADL Retraining, Functional Mobility, UE Funct Exercise/Act Treatment Duration: December 09, 2019 Frequency: 5 times per week Estimated Hrs Per Day: .25 hour per day Agreement: Yes Rehab Potential: Fair Time/GCodes Start Time: 10:50 Stop Time: 11:02 Total Time Billed (hr/min): 12 Billed Treatment Time 1, EVL (12) As pt receives assist for showering/ bathing, this will not be the main goal of OT sessions. Pt will benefit from strength/ endurance/ mobility training to increase QOL and increase ability to complete ADLs to max potential. QUANG KING OTR December 02, 2019 11:11
--- NOTE | 2019-12-02 11:55 | Physical Therapy Evaluation ---
PT Evaluation-General Medical Diagnosis Admission Date December 01, 2019 at 16:15 Medical Diagnosis: UTI, debility Onset Date: December 01, 2019 Therapy Diagnosis Therapy Diagnosis: generalized weakness/debility Height/Weight Height (Feet): 5 Height (Inches): 6.00 Weight (Pounds): 223 Weight (Ounces): 0.5 Precautions Precautions/Isolations: Fall Prevention, Standard Precautions, Contact/Enteric Isolation Weight Bear Status Right Lower Extremity: Right Weight Bearing/Tolerated Left Lower Extremity: Left Weight Bearing/Tolerated Referral Physician: Ana Ga MD Reason for Referral: Evaluation/Treatment Medical History Pertinent Medical History: Atrial Fib, CAD, CVA, DM, Heart Failure, HTN, [place], Neuropathy Current History admit secondary to UTI Reviewed History: Yes Social History Home: Single Level Current Living Status: Other Family (granddaughter + caregiver 4 hours daily) Entry Into Home: Ramp Prior Prior Level of Function SCALE: Activities may be completed with or without assistive devices. 6-Lfewoovyhn-sutngvh completes the activity by him/herself with no assistance from a helper. 5-Set-up or Clean-up Assistance-helper sets up or cleans up; patient completes activity. [place] assists only prior to or following the activity. 4-Supervision or Touching Assistance-helper provides verbal cues and/or touching/steadying and/or contact guard assistance as patient completes activity. Assistance may be provided throughout the activity or intermittently. 3-Partial/Moderate Assistance-helper does LESS THAN HALF the effort. [place] lifts, holds or supports trunk or limbs, but provides less than half the effort. 2-Substantial/Maximal Assistance-helper does MORE THAN HALF the effort. [place] lifts or holds trunk or limbs and provides more than half the effort. 0-Gyopvtegz-fhejiu does ALL the effort. Patient does none of the effort to complete the activity. Or, the assistance of 2 or more helpers is required for the patient to complete the activity. If activity was not attempted, code reason: 7-Patient Refused. 9-Not Applicable-not attempted and the patient did not perform the activity before the current illness, exacerbation or injury. 10-Not Attempted due to Environmental Limitations-(lack of equipment, weather restraints, etc.). 88-Not Attempted due to Medical Conditions or Safety Concerns. Bed Mobility: 3 Transfers (B,C,W/C): 3 Gait: 2 Stairs: 9 Wheelchair Mobility: 4 Indoor Mobility (Ambulation): Needed Some Help Stairs: Not Applicalbe Prior Devices Use: Manual wheelchair, Walker PT Evaluation-Current Subjective Patient reluctantly agrees to PT. Objective Patient Orientation: Confused ROM/Strength ROM Lower Extremities bilateral LE edematous/WFL Strength Lower Extremities 3-/5 grossly bilateral LE Integumentary/Posture Integumentary refer to nursing notes Bowel Incontinence: Yes Bladder Incontinence: Yes Posture cervical flexion Neuromuscular (Tone, Coordination, Reflexes) severely retropulsive in sit and stand Sensory Vision: Wears Glasses Hearing: Impaired Hand Dominance: Right Sensation Right Lower Extremit: Impaired Sensation Left Lower Extremity: Impaired Transfers Roll Left to Right (QC): 1 Lying to Sitting/Side of Bed(Q: 1 Sit to Stand (QC): 1 Chair/Pup-wq-Qucji Xfer(QC): 1 patient severely retropulsive in sit and with SPT x 3 sets Gait Does the Patient Walk?: No and Walking Goal IS indicated Mode of Locomotion: Both Anticipated Mode of Locomotion: Both Balance Sitting Static: Poor Sitting Dynamic: Poor Standing Static: Poor Standing Dynamic: Poor Assessment/Needs 79 y.o. female, will benefit from skilled PT to address functional strength and mobility to improve current LOF to safely return to home or care facility at maximum. Patient has 24/7 caregivers at home PLOF. Rehab Potential: Fair PT Group Home Goals Forging Machine Hand Goals PT Group Home Goals Time Frame: December 17, 2019 Roll Left & Right (QC): 3 Sit to Lying (QC): 3 Lying-Sitting on Side/Bed(QC): 3 Sit to Stand (QC): 3 Chair/Aoi-hg-Wwonr Xfer(QC): 3 Toilet Transfer (QC): 3 Does the Patient Walk: No and Walking Goal IS indicated Walk 10 feet (QC): 3 PT Plan Problem List Problem List: Activity Tolerance, Safety, Balance, Gait, Transfer, Bed Mobility Treatment/Plan Treatment Plan: Continue Plan of Care Treatment Plan: Bed Mobility, Education, Functional Activity Sammie, Functional Strength, Gait, Safety, Therapeutic Exercise, Transfers Treatment Duration: December 17, 2019 Frequency: 6 times per week Estimated Hrs Per Day: .25 hour per day Patient and/or Family Agrees t: Yes Time/GCodes Time In: 1105 Time Out: 1122 Total Billed Treatment Time: 17 Total Billed Treatment 1 visit EVModC 17 min WOODY STARKEY PT December 02, 2019 11:55
[2019-12-02 12:00] VITALS: BP 108/54
--- NOTE | 2019-12-02 12:00 | NUR ---
UP IN CHAIR BY PT, INCONT LOOSE STOOL, BUTTOCKS AND PAIGE AREA RED, ZINC OINTMENT APPLIED, DENIES PAIN OR SOB, LOWER LEGS EDEMATOUS, HEELS ELEVATED OFF BED, CALL LIGHT WITHIN REACH, BLOOD SUGAR 263, INSULIN GIVEN PER SSI,
[2019-12-02] MEDS ORDERED: FUROSEMIDE 40 MG/4 ML INJ (LASIX) IVP ONE (12:15)
--- NOTE | 2019-12-02 12:15 | Progress Note - Hospitalist ---
Subjective HPI/CC On Admission Date Seen by Provider: December 02, 2019 Time Seen by Provider: 09:40 Shamika Cain is an 79-year-old female with past medical history of hypertension, atrial fibrillation, chronic kidney disease, coronary artery disease, heart failure, depression, diabetes, who was directly admitted for a urinary tract infection. She has been getting home health and the worker noticed that she was more lethargic. She had a urinalysis done with her primary care physician which revealed a urinary tract infection. She has a history of ESBL Escherichia coli. She denies having fevers and chills. She denies any abdominal pain. She denies nausea and vomiting. She denies any chest pain or shortness of breath. She has no other complaints or concerns. She has been living at home. Subjective/Events-last exam She reports no complaints or concerns this morning. She is sleeping and resting comfortably in bed. She denies any chest pain or shortness of breath. She denies any abdominal pain, nausea, or vomiting. She denies any fevers or chills. Focused Exam Lactate Level 12/01/19 18:30: Lactic Acid Level 1.21 Objective Exam Vital Signs Vital Signs Date Time Temp Pulse Resp B/P (MAP) Pulse Ox O2 Delivery O2 Flow Rate FiO2 12/02/19 08:00 36.2 78 18 99/62 (74) 94 Room Air Capillary Refill : Less Than 3 Seconds General Appearance: No Apparent Distress, Obese Respiratory: Lungs Clear, Normal Breath Sounds, No Respiratory Distress Cardiovascular: Regular Rate, Rhythm, No Murmur Gastrointestinal: Normal Bowel Sounds, Non Tender, Soft Extremity: Normal Inspection, Non Tender, Pedal Edema Neurologic/Psychiatric: Alert, Normal Mood/Affect Skin: Warm/Dry, Pallor Results/Procedures Lab Laboratory Tests 12/01/19 18:30 Patient resulted labs reviewed. Imaging: Reviewed Imaging Report Assessment/Plan Assessment and Plan Assess & Plan/Chief Complaint UTI History of ESBL UA consistent with urinary tract infection Continue meropenem Await culture Stop IV fluids Chronic congestive heart failure Fluid overload Stop IV fluids Given Lasix Compression stockings Chronic kidney disease Creatinine 1.49, appears to be a baseline Continue to monitor Type II diabetes mellitus Sliding scale insulin Atrial fibrillation Continue Eliquis and Coreg Hypertension Depression Coronary artery disease Continue home meds DVT prophylaxis: Already receiving therapeutic anticoagulation Diagnosis/Problems Diagnosis/Problems (1) UTI (urinary tract infection) Status: Acute (2) History of ESBL E. coli infection Status: Chronic (3) Hypertension Status: Chronic Qualifiers: Hypertension type: essential hypertension Qualified Codes: I10 - Essential (primary) hypertension (4) IDDM (insulin dependent diabetes mellitus) Status: Chronic (5) CKD (chronic kidney disease) Status: Chronic Qualifiers: Chronic kidney disease stage: stage 3 (moderate) Qualified Codes: N18.3 - Chronic kidney disease, stage 3 (moderate) Clinical Quality Measures DVT/VTE Risk/Contraindication: Risk Factor Score Per Nursin RFS Level Per Nursing on Admit: 4+=Very High CRIS WALDEN MD December 02, 2019 12:15
--- NOTE | 2019-12-02 13:19 | NUR ---
"RD ASSESSMENT PMHx: afib; CAD; [place]; hypercholesterolemia; HTN; TIA; chronic UTI; c-diff; DM; CA(breast) PT INTERACTION: Pt was semi-awake and pleasant during dietary consult for protein calorie malnutrition. Note pt did not verbally respond to questions, but answered yes/no questions by nodding or shaking her head. Pt states current appetite is okay. Note avg PO intake <25% x2meal, per chart review. Pt states no recent issues with nausea, vomiting, constipation, or diarrhea. Note last BM was 12/01, and pt currently on bowel regimen of colace BID, and senna BID, per chart review. Note recent 9# wt gain x2mon, per chart review. Note pt is diabetic and did not respond to question of current level of management. Note recent HbA1c of 7.7 on 07/25/19, per chart review. Note abnormal low lab values of Pro 5.6, and alb 2.4, per chart review. ABNORMAL NUTRITION-RELATED LAB VALUES LOW: Ca 8.2; Pro 5.6; alb 2.4 HIGH: BUN 27; cr 1.49; glu 151; bili 1.1 Est. kcal needs: 9774-1501 kcal | 15-18 kcal/kg Est. Pro needs: 100-121 g Pro | 1.0-1.2 g Pro/kg PES STATEMENT: Inadequate oral intake (NI-2.1) related to loss of appetite as evidenced by pt interview | avg PO intake <25% x2meal Altered nutrition-related lab values Pro and alb (NC-2.2) related to inadequate protein intake as evidenced by lab values Pro 5.6 | alb 2.4 INTERVENTION: Continue with current diet order of Regular diet. Pt may benefit from consistent CHO restriction if blood glucose levels become elevated. Add Ensure HP (vary) to meals TID, for increased kcal and protein intake. Provides 160 kcal and 16 g Pro per serving. Would encourage pt to eat when able. Will continue to follow and reassess as pt needs, intake, and status change. MONITOR/EVALUATE: PO Intake; Plan of Care; Hydration Status; Weight Status; Lab Values Rex Vega, MS, RD, LD"
--- NOTE | 2019-12-02 14:00 | NUR ---
Report from Yanely MOJICA, will assume care of patient at this time.
[2019-12-02] MEDS ORDERED: INSU100V SC (14:08)
[2019-12-02] MEDS ORDERED: ONDA-105 PO (14:08)
--- NOTE | 2019-12-02 14:14 | NUR ---
SPOKE WITH THE PATIENTS JOSEY GIANG AND WENT THRU THE EXT MED HISTORY TO COMPLETE THE MED REC ELIQUIS 5 MG: THE RX SAYS 1 TAB BID HOWEVER THE PT TAKES TAB BID THE FOLLOWING MEDICATIONS HAVE BEEN DISCONTINUED: BETHANECHOL 25MG FLOMAX 0.4MG POTASSIUM 20MEQ TORSEMIDE 100MG VICTOZA OTC MEDS: TYLENOL BENADRYL STOOL SOFTENER VITAMIN B12 VITAMIN D
--- NOTE | 2019-12-02 14:15 | Physician Query Clarification ---
PQ-CHF Specificity Admission Date: December 01, 2019 at 16:15 Discharge Date: The medical record reflects the following clinical scenario: History/Risk Factors: Coronary artery disease Atrial fibrillation Hypertensive cardiorenal disease Clinical Findings:Pedal edema. Chronic CHF per H&P. Treatment: IV Lasix 40 mg. Question: Can you further specify the acuity &/or type of CHF per the clinical indicators above? Please document a response in the Progress Notes or Discharge Summary. 1. Acuity: Acute, Chronic or Acute on Chronic 2. Type: Systolic, Diastolic or Systolic & Diastolic 3. Unspecified: CHF cannot be further specified regarding type or acuity 4. Other, with explanation of clinical findings 5. Clinically undetermined, no explanation for clinical findings PHYSICIAN RESPONSE Acuity: Chronic Type: Diastolic Please remember a lack of response to the above will prompt a phone page by [facility]/Coding staff. In responding to this query, please exercise your independent professional judgment. The purpose of this communication is to more accurately reflect the complexity of your patients condition. The fact that a question is asked does not imply that any particular answer is desired or expected. Thank you for your timely response to this clarification. Requestors name: Lara Restrepo [facility] Phone # ext [phone] or [phone] THIS PHYSICIAN QUERY FORM IS A PERMANENT PART OF THE MEDICAL RECORD LARA RESTREPO December 02, 2019 14:15 CRIS WALDEN MD December 03, 2019 10:52
[2019-12-02 15:43] VITALS: BP 112/75
[2019-12-02 20:49] VITALS: BP 82/40
[2019-12-02] MEDS: MELATONIN 3 MG TABLET PO PRN (21:41)
[2019-12-02] MEDS: SERTRALINE 50 MG (ZOLOFT) TABLET PO SCH (21:41)
[2019-12-03] VITALS (7 sets, daily range): BP systolic 94–123; BP diastolic 55–71
[2019-12-03] MEDS: MEROPENEM 500 MG in WATER (STERILE) FOR INJECTION 10 ML IV SCH ×3 (01:51→17:38)
[2019-12-03 05:32] LABS: POTASSIUM 3.9 MMOL/L (3.6-5.0)
[2019-12-03 05:37] LABS: CREATININE SERUM 1.72 MG/DL (0.60-1.30)
[2019-12-03] MEDS: inSUlin ASPART (NovoLOG) 1 UNIT/0.01 ML (CHARGE PER UNIT) SC SCH ×4 (06:26→22:19)
[2019-12-03] MEDS: TAMSULOSIN 0.4 MG (FLOMAX) CAP PO SCH (08:33)
[2019-12-03] MEDS: SENNOSIDES 8.6 MG (SENOKOT) TAB PO SCH ×2 (08:33→20:19)
[2019-12-03] MEDS: CLOPIDOGREL 75 MG (PLAVIX) TABLET PO SCH (08:33)
[2019-12-03] MEDS: APIXABAN 2.5 MG (ELIQUIS) TABLET PO SCH ×2 (08:33→20:29)
[2019-12-03] MEDS: PANTOPRAZOLE 40 MG (PROTONIX) TAB PO SCH (08:33)
[2019-12-03] MEDS: DOCUSATE SODIUM 100 MG (COLACE) CAP PO SCH ×2 (08:34→20:19)
[2019-12-03] MEDS: BETHANECHOL 25 MG (URECHOLINE) TAB PO SCH (08:38)
--- NOTE | 2019-12-03 10:51 | Progress Note - Hospitalist ---
Subjective HPI/CC On Admission Date Seen by Provider: December 03, 2019 Time Seen by Provider: 10:05 Shamika Cain is an 79-year-old female with past medical history of hypertension, atrial fibrillation, chronic kidney disease, coronary artery disease, heart failure, depression, diabetes, who was directly admitted for a urinary tract infection. She has been getting home health and the worker noticed that she was more lethargic. She had a urinalysis done with her primary care physician which revealed a urinary tract infection. She has a history of ESBL Escherichia coli. She denies having fevers and chills. She denies any abdominal pain. She denies nausea and vomiting. She denies any chest pain or shortness of breath. She has no other complaints or concerns. She has been living at home. Subjective/Events-last exam She reports no complaints or concerns. She denies any fevers or chills. She d enies any chest pain or shortness of breath. She denies any abdominal pain, nausea, or vomiting. Focused Exam Lactate Level 12/01/19 18:30: Lactic Acid Level 1.21 Objective Exam Vital Signs Vital Signs Date Time Temp Pulse Resp B/P (MAP) Pulse Ox O2 Delivery O2 Flow Rate FiO2 12/03/19 07:38 Room Air 12/03/19 07:35 35.5 68 19 99/68 (78) 95 Capillary Refill : Less Than 3 Seconds General Appearance: No Apparent Distress, WD/WN Respiratory: Lungs Clear, Normal Breath Sounds, No Respiratory Distress Cardiovascular: Regular Rate, Rhythm, No Murmur Gastrointestinal: Normal Bowel Sounds, Non Tender, Soft Extremity: Normal Inspection, Non Tender, Pedal Edema, Swelling Neurologic/Psychiatric: Alert, No Motor/Sensory Deficits, Normal Mood/Affect Skin: Normal Color, Warm/Dry Results/Procedures Lab Laboratory Tests 12/03/19 04:43 Patient resulted labs reviewed. Imaging: Reviewed Imaging Report Assessment/Plan Assessment and Plan Assess & Plan/Chief Complaint UTI History of ESBL UA consistent with urinary tract infection Continue meropenem Await culture results and sensitivities Chronic diastolic heart failure Chronic kidney disease Creatinine 1.72, slightly worsened today Hold diuretics Continue to monitor Type II diabetes mellitus Sliding scale insulin Atrial fibrillation Continue Eliquis and Coreg Hypertension Depression Coronary artery disease Continue home meds DVT prophylaxis: Already receiving therapeutic anticoagulation Diagnosis/Problems Diagnosis/Problems (1) UTI (urinary tract infection) Status: Acute (2) History of ESBL E. coli infection Status: Chronic (3) Hypertension Status: Chronic Qualifiers: Hypertension type: essential hypertension Qualified Codes: I10 - Essential (primary) hypertension (4) IDDM (insulin dependent diabetes mellitus) Status: Chronic (5) CKD (chronic kidney disease) Status: Chronic Qualifiers: Chronic kidney disease stage: stage 3 (moderate) Qualified Codes: N18.3 - Chronic kidney disease, stage 3 (moderate) Clinical Quality Measures DVT/VTE Risk/Contraindication: Risk Factor Score Per Nursin RFS Level Per Nursing on Admit: 4+=Very High CRIS WALDEN MD December 03, 2019 10:51
--- NOTE | 2019-12-03 11:00 | Physical Therapy Daily Note ---
PT Daily Note-Current Subjective Patient in bed pre tx, agrees to PT, has no complaints of pain, patient very lethargic, female PT tech removes purewick Appearance Patient in recliner post tx with nurse call, phone, tray, legs elevated and on pillow, nurse notified to put on purewick, has brief on. Mental Status Patient Orientation: Person, Confused, [place] Transfers SCALE: Activities may be completed with or without assistive devices. 6-Sloioryfix-nnsxnod completes the activity by him/herself with no assistance from a helper. 5-Set-up or Clean-up Assistance-helper sets up or cleans up; patient completes activity. [place] assists only prior to or following the activity. 4-Supervision or Touching Assistance-helper provides verbal cues and/or touching/steadying and/or contact guard assistance as patient completes activity. Assistance may be provided throughout the activity or intermittently. 3-Partial/Moderate Assistance-helper does LESS THAN HALF the effort. [place] lifts, holds or supports trunk or limbs, but provides less than half the effort. 2-Substantial/Maximal Assistance-helper does MORE THAN HALF the effort. [place] lifts or holds trunk or limbs and provides more than half the effort. 8-Spptzxtxy-krsiup does ALL the effort. Patient does none of the effort to complete the activity. Or, the assistance of 2 or more helpers is required for the patient to complete the activity. If activity was not attempted, code reason: 7-Patient Refused. 9-Not Applicable-not attempted and the patient did not perform the activity before the current illness, exacerbation or injury. 10-Not Attempted due to Environmental Limitations-(lack of equipment, weather restraints, etc.). 88-Not Attempted due to Medical Conditions or Safety Concerns. Roll Left & Right (QC): 1 Lying to Sitting/Side of Bed(Q: 1 Sit to Stand (QC): 1 Chair/Noe-bv-Bxput Xfer(QC): 1 Dependent transfer to recliner, patient very retropulsive during transfer. Weight Bearing Right Lower Extremity: Right Weight Bearing/Tolerated Left Lower Extremity: Left Weight Bearing/Tolerated Exercises Seated Therapy Exercises: Ankle pumps, Long arc quads Seated Reps: 20 Treatments bed mobility and transfers, LE exercise Assessment Current Status: Poor Progress dependent for mobility PT Correction Goals Correction Goals PT [facility] Goals Time Frame: December 17, 2019 Roll Left & Right (QC): 3 Sit to Lying (QC): 3 Lying-Sitting on Side/Bed(QC): 3 Sit to Stand (QC): 3 Chair/Eyq-cp-Fwuuu Xfer(QC): 3 Toilet Transfer (QC): 3 Does the Patient Walk: No and Walking Goal IS indicated Walk 10 feet (QC): 3 PT Plan Problem List Problem List: Activity Tolerance, Functional Strength, Safety, Balance, Gait, Transfer, Bed Mobility, ROM Treatment/Plan Treatment Plan: Continue Plan of Care Treatment Plan: Bed Mobility, Education, Functional Activity Sammie, Functional Strength, Gait, Safety, Therapeutic Exercise, Transfers Treatment Duration: December 17, 2019 Frequency: 6 times per week Estimated Hrs Per Day: .25 hour per day Patient and/or Family Agrees t: Yes Safety Risks/Education Patient Education: Transfer Techniques, Correct Positioning, Safety Issues Teaching Recipient: Patient Teaching Methods: Demonstration, Discussion Response to Teaching: Reinforcement Needed Time/GCodes Time In: 1038 Time Out: 1050 Total Billed Treatment Time: 12 Total Billed Treatment 1 visit FA JAIME BRAR PT December 03, 2019 11:00
[2019-12-03] MEDS: SERTRALINE 50 MG (ZOLOFT) TABLET PO SCH (20:29)
[2019-12-04] MEDS: MEROPENEM 500 MG in WATER (STERILE) FOR INJECTION 10 ML IV SCH ×3 (03:32→17:00)
[2019-12-04 04:00] VITALS: BP 110/60
[2019-12-04] MEDS: inSUlin ASPART (NovoLOG) 1 UNIT/0.01 ML (CHARGE PER UNIT) SC SCH ×4 (07:27→21:29)
[2019-12-04 07:42] VITALS: BP 106/65
[2019-12-04] MEDS: BETHANECHOL 25 MG (URECHOLINE) TAB PO SCH (09:18)
[2019-12-04] MEDS: PANTOPRAZOLE 40 MG (PROTONIX) TAB PO SCH (09:19)
[2019-12-04] MEDS: CLOPIDOGREL 75 MG (PLAVIX) TABLET PO SCH (09:19)
[2019-12-04] MEDS: APIXABAN 2.5 MG (ELIQUIS) TABLET PO SCH ×2 (09:19→21:29)
[2019-12-04] MEDS: TORSEMIDE 20 MG (DEMADEX) TAB PO SCH (09:19)
[2019-12-04] MEDS: TAMSULOSIN 0.4 MG (FLOMAX) CAP PO SCH (09:19)
[2019-12-04] MEDS: SENNOSIDES 8.6 MG (SENOKOT) TAB PO SCH ×2 (09:21→21:24)
[2019-12-04] MEDS: DOCUSATE SODIUM 100 MG (COLACE) CAP PO SCH ×2 (09:21→21:24)
[2019-12-04 11:35] VITALS: BP 112/65
--- NOTE | 2019-12-04 12:03 | Progress Note - Hospitalist ---
Subjective HPI/CC On Admission Date Seen by Provider: December 04, 2019 Time Seen by Provider: 09:10 Shamika Cain is an 79-year-old female with past medical history of hypertension, atrial fibrillation, chronic kidney disease, coronary artery disease, heart failure, depression, diabetes, who was directly admitted for a urinary tract infection. She has been getting home health and the worker noticed that she was more lethargic. She had a urinalysis done with her primary care physician which revealed a urinary tract infection. She has a history of ESBL Escherichia coli. She denies having fevers and chills. She denies any abdominal pain. She denies nausea and vomiting. She denies any chest pain or shortness of breath. She has no other complaints or concerns. She has been living at home. Subjective/Events-last exam she reports no complaints or concerns this morning. She has eaten her breakfast. She is watching television. She denies any chest pain or shortness of breath. She denies any abdominal pain, nausea, or vomiting. Focused Exam Lactate Level 12/01/19 18:30: Lactic Acid Level 1.21 Objective Exam Vital Signs Vital Signs Date Time Temp Pulse Resp B/P (MAP) Pulse Ox O2 Delivery O2 Flow Rate FiO2 12/04/19 11:35 36.2 71 20 112/65 (81) 94 Room Air Capillary Refill : Less Than 3 Seconds General Appearance: No Apparent Distress, Chronically ill, Obese Respiratory: Lungs Clear, Normal Breath Sounds, No Respiratory Distress Cardiovascular: Regular Rate, Rhythm, No Murmur Gastrointestinal: Normal Bowel Sounds, Non Tender, Soft Extremity: Normal Inspection, Pedal Edema Neurologic/Psychiatric: Alert, Oriented x3, Normal Mood/Affect Skin: Normal Color, Warm/Dry Results/Procedures Lab Patient resulted labs reviewed. Imaging: Reviewed Imaging Report Assessment/Plan Assessment and Plan Assess & Plan/Chief Complaint UTI History of ESBL urine culture revealed ESBL Klebsiella oxytoca Continue meropenem will attempt to set up outpatient antibiotics tomorrow Consult manager social media for assistance Chronic diastolic heart failure Chronic kidney disease Hold diuretics Continue to monitor Type II diabetes mellitus Sliding scale insulin Atrial fibrillation Continue Eliquis and Coreg Hypertension Depression Coronary artery disease Continue home meds DVT prophylaxis: Already receiving therapeutic anticoagulation Diagnosis/Problems Diagnosis/Problems (1) Infection with ESBL Klebsiella oxytoca Status: Acute (2) UTI (urinary tract infection) Status: Acute (3) History of ESBL E. coli infection Status: Chronic (4) Hypertension Status: Chronic Qualifiers: Hypertension type: essential hypertension Qualified Codes: I10 - Essential (primary) hypertension (5) IDDM (insulin dependent diabetes mellitus) Status: Chronic (6) CKD (chronic kidney disease) Status: Chronic Qualifiers: Chronic kidney disease stage: stage 3 (moderate) Qualified Codes: N18.3 - Chronic kidney disease, stage 3 (moderate) Clinical Quality Measures DVT/VTE Risk/Contraindication: Risk Factor Score Per Nursin RFS Level Per Nursing on Admit: 4+=Very High CRIS WALDEN MD December 04, 2019 12:03
[2019-12-04 16:00] VITALS: BP 102/57
[2019-12-04 20:00] VITALS: BP 103/50
[2019-12-04] MEDS: SERTRALINE 50 MG (ZOLOFT) TABLET PO SCH (21:29)
[2019-12-04] MEDS: MELATONIN 3 MG TABLET PO PRN (21:30)
[2019-12-05 00:30] VITALS: BP 108/56
[2019-12-05] MEDS: MEROPENEM 500 MG in WATER (STERILE) FOR INJECTION 10 ML IV SCH ×2 (02:49→09:32)
[2019-12-05 04:28] LABS: POTASSIUM 4.4 MMOL/L (3.6-5.0)
[2019-12-05 04:29] LABS: CALCIUM 7.8 MG/DL (8.5-10.1)
[2019-12-05 04:34] LABS: CREATININE SERUM 1.99 MG/DL (0.60-1.30)
[2019-12-05 05:48] VITALS: BP 111/59
[2019-12-05] MEDS: inSUlin ASPART (NovoLOG) 1 UNIT/0.01 ML (CHARGE PER UNIT) SC SCH ×2 (06:04→11:26)
[2019-12-05 08:18] VITALS: BP 102/64
[2019-12-05] MEDS: TAMSULOSIN 0.4 MG (FLOMAX) CAP PO SCH (09:30)
[2019-12-05] MEDS: BETHANECHOL 25 MG (URECHOLINE) TAB PO SCH (09:31)
[2019-12-05] MEDS: CLOPIDOGREL 75 MG (PLAVIX) TABLET PO SCH (09:31)
[2019-12-05] MEDS: TORSEMIDE 20 MG (DEMADEX) TAB PO SCH (09:31)
[2019-12-05] MEDS: SENNOSIDES 8.6 MG (SENOKOT) TAB PO SCH (09:31)
[2019-12-05] MEDS: PANTOPRAZOLE 40 MG (PROTONIX) TAB PO SCH (09:31)
[2019-12-05] MEDS: APIXABAN 2.5 MG (ELIQUIS) TABLET PO SCH (09:31)
[2019-12-05] MEDS: DOCUSATE SODIUM 100 MG (COLACE) CAP PO SCH (09:32)
--- NOTE | 2019-12-05 10:22 | Physical Therapy Daily Note ---
PT Daily Note-Current Subjective Patient in bed and adamantly declined OOB activity. Reluctantly agrees to PT. Noted, purewick in place in dependents with patient incontinent BM as well. Mental Status Patient Orientation: Person, Time, Situation Transfers SCALE: Activities may be completed with or without assistive devices. 6-Avrvbrwbgp-apknnik completes the activity by him/herself with no assistance from a helper. 5-Set-up or Clean-up Assistance-helper sets up or cleans up; patient completes activity. [place] assists only prior to or following the activity. 4-Supervision or Touching Assistance-helper provides verbal cues and/or touching/steadying and/or contact guard assistance as patient completes activity. Assistance may be provided throughout the activity or intermittently. 3-Partial/Moderate Assistance-helper does LESS THAN HALF the effort. [place] lifts, holds or supports trunk or limbs, but provides less than half the effort. 2-Substantial/Maximal Assistance-helper does MORE THAN HALF the effort. [place] lifts or holds trunk or limbs and provides more than half the effort. 9-Zivbfwdhy-pzwfoe does ALL the effort. Patient does none of the effort to complete the activity. Or, the assistance of 2 or more helpers is required for the patient to complete the activity. If activity was not attempted, code reason: 7-Patient Refused. 9-Not Applicable-not attempted and the patient did not perform the activity before the current illness, exacerbation or injury. 10-Not Attempted due to Environmental Limitations-(lack of equipment, weather restraints, etc.). 88-Not Attempted due to Medical Conditions or Safety Concerns. Roll Left & Right (QC): 1 Sit to Lying (QC): 1 Lying to Sitting/Side of Bed(Q: 1 patient unable to sit EOB without dependent assist and is not safe for OOB activity. Patient required dependent assist of 3 to roll, cleanse and change patient. Weight Bearing Right Lower Extremity: Right Weight Bearing/Tolerated Left Lower Extremity: Left Weight Bearing/Tolerated Exercises Supine Ex: Ankle pumps, Heel Slides, Straight leg raise, Hip abd/add Supine Reps: 12 (PROM) Assessment Current Status: Poor Progress Patient not progressing with gross motor skills. Patient is currently dependent with all mobility. From a PT standpoint, patient would benefit from extended care facility for continued care. PT Custodial Goals Custodial Goals PT Cans Vacuum Tester Goals Time Frame: December 17, 2019 Roll Left & Right (QC): 3 Sit to Lying (QC): 3 Lying-Sitting on Side/Bed(QC): 3 Sit to Stand (QC): 3 Chair/Tmw-uc-Uixpk Xfer(QC): 3 Toilet Transfer (QC): 3 Does the Patient Walk: No and Walking Goal IS indicated Walk 10 feet (QC): 3 PT Plan Treatment/Plan Treatment Plan: Continue Plan of Care Treatment Plan: Bed Mobility, Education, Functional Activity Sammie, Functional Strength, Gait, Safety, Therapeutic Exercise, Transfers Treatment Duration: December 17, 2019 Frequency: 6 times per week Estimated Hrs Per Day: .25 hour per day Patient and/or Family Agrees t: Yes Time/GCodes Time In: 945 Time Out: 1001 Total Billed Treatment Time: 16 Total Billed Treatment 1 visit FA 16 min WOODY STARKEY PT December 05, 2019 10:22
--- NOTE | 2019-12-05 11:19 | NUR ---
Swing Bed Note: Qualifies for swing bed for continued need of IV abx (Resistant UTI) with continued need for Physical et Occupational therapies to return to her prior level of function et return home. Anticipate admission to swing bed today 12/05/19. Thank you for this referra!
--- NOTE | 2019-12-05 11:51 | Discharge Summary ---
Diagnosis/Chief Complaint Date of Admission December 01, 2019 at 16:15 Date of Discharge Admission Diagnosis Urinary tract infection Primary Care Rashaun Gonzales MD Discharge Diagnosis (1) Infection with ESBL Klebsiella oxytoca Status: Acute (2) UTI (urinary tract infection) Status: Acute (3) History of ESBL E. coli infection Status: Chronic (4) Hypertension Status: Chronic (5) IDDM (insulin dependent diabetes mellitus) Status: Chronic (6) CKD (chronic kidney disease) Status: Chronic Discharge Summary Discharge Physical Exam Allergies: Coded Allergies: sulfamethoxazole (Verified Allergy, Intermediate, 10/05/15) tramadol (Verified Allergy, Intermediate, 10/05/15) trimethoprim (Verified Allergy, Intermediate, 10/05/15) Penicillins (Verified Allergy, Unknown, 10/05/15) codeine (Verified Allergy, Unknown, CAN TAKE MORPHINE, 10/05/15) hydrocodone (Verified Allergy, Unknown, 10/05/15) morphine (Verified Adverse Reaction, Intermediate, Nausea, 06/03/19) amiodarone (Verified Adverse Reaction, Mild, NAUSEA, dizziness, 02/01/16) Vitals & I&Os Vital Signs Date Time Temp Pulse Resp B/P (MAP) Pulse Ox O2 Delivery O2 Flow Rate FiO2 12/05/19 08:18 36.2 80 18 102/64 (77) 94 Room Air General Appearance: No Apparent Distress, Chronically ill Respiratory: Lungs Clear, No Respiratory Distress Neurologic/Psychiatric: Alert, Oriented x3 Hospital Course Pt was admitted to the hospital due to generalized weakness and a UTI. She was found to have ESBL Klebsiella and was treated with Merrem. She responded well to this but need longer term IV abx and continued therapy. She was discharged to swing bed status for this due to three times per day IV abx need with Merrem. I did call and update her granddaughter who is DPOA of this plan and she was in agreement. Labs (last 24 hrs) Laboratory Tests 12/04/19 16:18: Glucometer 241H 12/04/19 20:54: Glucometer 290H 12/05/19 04:10: Sodium Level 126L, Potassium Level 4.4, Chloride Level 96L, Carbon Dioxide Level 20L, Anion Gap 10, Blood Urea Nitrogen 40H, Creatinine 1.99H, Estimat Glomerular Filtration Rate 24, BUN/Creatinine Ratio 20, Glucose Level 217H, Calcium Level 7.8L 5/18/20 05:44: Glucometer 217H 12/05/19 10:11: Glucometer 245H Microbiology 12/01/19 Urine Culture - Final, Complete Klebsiella oxytoca 12/01/19 Blood Culture - Preliminary, Resulted No growth Patient resulted labs reviewed. Pending Labs Laboratory Tests 12/05/19 04:10: Sodium Level 126, Potassium Level 4.4, Chloride Level 96, Carbon Dioxide Level 20, Anion Gap 10, Blood Urea Nitrogen 40, Creatinine 1.99, Estimat Glomerular Filtration Rate 24, BUN/Creatinine Ratio 20, Glucose Level 217, Calcium Level 7.8 12/05/19 05:44: Glucometer 217 12/05/19 10:11: Glucometer 245 Imaging: Reviewed Imaging Report Discussion & Recommendations Discharge Planning: >30 minutes discharge planning Discharge Home Medications: Active Scripts Active Boudreauxs (Zinc Oxide) 28 Gm Oint 0 Gm TOP NEEDED PRN Nystatin 15 Gm Cream..g. 0 Gm TP TID Lotrimin AF (Miconazole Nitrate) 90 Gm Powder 0 Gm TOP BID Reported Humalog (Insulin Lispro) 100 Unit/1 Ml Vial Units SC UD USES PER INSULIN PUMP Ondansetron HCl 4 Mg Tablet 4 Mg PO Q8H PRN Sertraline HCl 25 Mg Tablet 25 Mg PO HS Ferrous Sulfate 325 Mg Tablet 325 Mg PO BID Diazepam 5 Mg Tablet 5 Mg PO DAILY PRN Vitamin D3 (Cholecalciferol (Vitamin D3)) 25 Mcg Capsule 25 Mcg PO 1200 Benadryl Allergy (Diphenhydramine HCl) 25 Mg Tablet 25 Mg PO Q6H PRN Hydroxyzine HCl 25 Mg Tablet 25-50 Mg PO HS PRN Metoprolol Succinate 25 Mg Tab.er.24h 12.5 Mg PO DAILY TAKES 1/2 (25MG) TABLET Eliquis (Apixaban) 5 Mg Tablet 2.5 Mg PO BID TAKES 1/2 (5MG) TABLET Colace (Docusate Sodium) 100 Mg Capsule 100 Mg PO HS Pantoprazole Sodium 40 Mg Tablet.dr 40 Mg PO DAILY Acetaminophen 325 Mg Tablet 650 Mg PO Q4H PRN Vitamin B-12 (Cyanocobalamin (Vitamin B-12)) 500 Mcg Tablet 1,000 Mcg PO 1200 Midodrine HCl 10 Mg Tablet 10 Mg PO BID Allopurinol 100 Mg Tablet 100 Mg PO DAILY Premarin (Estrogens Conjugated) 30 Gm Cr VG MOWEFR Rosuvastatin Calcium 20 Mg Tablet 20 Mg PO HS Clopidogrel (Clopidogrel Bisulfate) 75 Mg Tablet 75 Mg PO DAILY LAST FILLED 07-06-2019 #90 Instructions to patient/family Please see electronic discharge instructions given to patient. Clinical Quality Measures DVT/VTE Risk/Contraindication: Risk Factor Score Per Nursin RFS Level Per Nursing on Admit: 4+=Very High Problem Qualifiers (1) UTI (urinary tract infection): Urinary tract infection type: acute cystitis Hematuria presence: with hematuria Qualified Codes: N30.01 - Acute cystitis with hematuria (2) Hypertension: Hypertension type: essential hypertension Qualified Codes: I10 - Essential (primary) hypertension (3) CKD (chronic kidney disease): Chronic kidney disease stage: stage 3 (moderate) Qualified Codes: N18.3 - Chronic kidney disease, stage 3 (moderate) ANALIA WARD MD December 05, 2019 11:51
[2019-12-05 12:17] VITALS: BP 102/62
== END 2019-12-05 12:37 | disposition swing bed (61) | DRG 690 ==
LOC: 4TH 16:15
PROVIDERS: ADMIT Internal Medicine; ATTEND Internal Medicine
DX: N30.01 Acute cystitis with hematuria (principal); B96.89 Other specified bacterial agents as the cause of diseases classified elsewhere; I13.0 Hypertensive heart and chronic kidney disease with heart failure and stage 1 through stage 4 chronic kidney disease, or unspecified chronic kidney disease; N18.3 Chronic kidney disease, stage 3 (moderate); I50.32 Chronic diastolic (congestive) heart failure; Z16.12 Extended spectrum beta lactamase (ESBL) resistance; I48.91 Unspecified atrial fibrillation; E11.51 Type 2 diabetes mellitus with diabetic peripheral angiopathy without gangrene; Z66 Do not resuscitate; E11.40 Type 2 diabetes mellitus with diabetic neuropathy, unspecified; E11.22 Type 2 diabetes mellitus with diabetic chronic kidney disease; I25.10 Atherosclerotic heart disease of native coronary artery without angina pectoris; I25.2 Old myocardial infarction; E78.00 Pure hypercholesterolemia, unspecified; R01.1 Cardiac murmur, unspecified; K58.9 Irritable bowel syndrome, unspecified; F32.9 Major depressive disorder, single episode, unspecified; M19.91 Primary osteoarthritis, unspecified site; E66.9 Obesity, unspecified; Z95.5 Presence of coronary angioplasty implant and graft; Z95.0 Presence of cardiac pacemaker; Z79.4 Long term (current) use of insulin; Z86.73 Personal history of transient ischemic attack (TIA), and cerebral infarction without residual deficits; Z79.01 Long term (current) use of anticoagulants; Z85.3 Personal history of malignant neoplasm of breast; Z92.3 Personal history of irradiation; Z68.35 Body mass index [BMI] 35.0-35.9, adult; Z86.19 Personal history of other infectious and parasitic diseases
CPT/HCPCS: 36415; 80048; 80053; 81000; 82962; 83605; 85025; 87040; 87077; 87088; 87186

== ENCOUNTER 2019-12-05 11:28 | Inpatient (IN) | payer MEDICARE, MEDICAID ==
[~2019-12-05] VITALS: Ht 167.7 cm; Wt 107.7 kg
[~2019-12-05 11:28] MED LIST changes: +INSU100V SC; +ONDA-105 PO
[2019-12-05] MEDS ORDERED: polyethylene glycoL POWDER 17 GM (MIRALAX) PACK PO PRN (12:45)
[2019-12-05] MEDS ORDERED: ANTACID SUSP 30 ML UDC (MYLANTA) PO PRN (12:45)
[2019-12-05] MEDS ORDERED: BISACODYL 10 MG SUPP (DULCOLAX) PR PRN (12:45)
[2019-12-05] MEDS ORDERED: ONDANSETRON 4 MG (ZOFRAN) ORAL DISSOLVE TAB PO PRN (12:45)
[2019-12-05] MEDS ORDERED: DIAZEPAM 5 MG (VALIUM) TABLET PO PRN (12:45)
--- OUTSIDE RECORDS SUMMARY | 2019-12-05 15:04 | XMS REPORT | Clinical Summary ---
Author Author [facility] Organization [facility] Address Unknown Phone Unavailable Care Team Providers Care Licensed Mass Real Estate Appraiser Name Role Phone PCP Unavailable Allergies Not [...]
--- OUTSIDE RECORDS SUMMARY | 2019-12-05 15:04 | XMS REPORT | Encounter Summary ---
Author Author [facility] Organization [facility] Address Unknown Phone Unavailable Care Team Providers Care Head Custodian Name Role Phone Rashaun Gonzales MD PCP Justina Jesus Unavailable Unavailable Reason for Visit * Reason Comments Groin Injury Encounter Details Care Team Description Date Type Department Maria Dolores Grant RN Groin Injury 06/08/2019 Telephone [facility] [address] [facility] [place] [address] Social History Date Tobacco Use Types Packs/Day Years Used Never Smoker Smokeless Tobacco: Never Used Drinks/Week oz/Week Comments Alcohol Use Never Alcohol Habits Answer Date Recorded How often do you have a drink containing alcohol? Never 04/07/2019 How many drinks containing alcohol do you have on No t asked a typical day when you are drinking? How often do you have six or more drinks on one Not asked occasion? Sex Assigned at Date Recorded Not on file Industry Job Start Date Occupation Not on file Not on file Not on file Travel End Travel History Travel Start No recent travel history available. documented as of this encounter Functional Status Date of Assessment Functional Status Response 04/07/2019 Does the patient have a hearing impairment: No documented as of this encounter Miscellaneous Notes * Telephone Encounter - Maria Dolores Grant RN - 06/09/2019 4:01 PM ZINC PLATING MACHINE OPERATOR Discussed further with patient. She states her groin site is draining but she in dicates two local physicians evaluated the seroma (yesterday and today) and have assured her it is not infected. She will continue keeping the area dry - changi ng out dressings regularly. She understands Dr. Anette Figueroa's administrativ e research lab assistant will be in touch with her later today or tomorrow to schedule. If nadeen brea in any way becomes concerned, she will not hesitate to call us and/or send in a picture of her femoral site so we can evaluate further. PLATING MACHINE OPERATOR * Telephone Encounter - Maria Dolores Grant RN - 06/08/2019 4:22 PM ZINC PLATING MACHINE OPERATOR Received a call from Melvin with Dr. Reno's office in [place]. 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 It is not painful. Melvin would like for [place] de paz to see Dr. Cheema in follow-up. She understands Dr. Cheema is out o f the office but states it can wait until his return. Let her know we would cont act patient to schedule an appointment. She has no further questions/concerns at this time. Dr. Reno's office: PLATING MACHINE OPERATOR documented in this encounter Plan of Treatment Not on filedocumented as of this encounter Goals Goal Patient Associated Recent Progress Patient-Stat Aut hor Goal Type Problems ed? Recover from illness Hospital Jacque Arroyo RN To be able to Stay in Own Home Lifestyle Chelle Mohr, for as Long as Possible GALINA Santillan documented as of this encounter Visit Diagnoses Not on filedocumented in this encounter
--- OUTSIDE RECORDS SUMMARY | 2019-12-05 15:04 | XMS REPORT | Encounter Summary ---
Author [facility] [place] [place], [facility] Organization [facility] [place], [facility] Address Unknown Phone Unavailable Care Team Providers Care Banquet Line Cook Name Role Phone Rashaun Gonzales MD PCP Encounter Details Care Team Description Date Type Department Jay Marie MD [address] [place] [address] [address] [place] [id number] 11/08/2009 Outpatient JOPL Conversion Historical [address] [place] [address] [place] [id number] Social History Date Tobacco Use Types Packs/Day [...]
--- OUTSIDE RECORDS SUMMARY | 2019-12-05 15:04 | XMS REPORT | Clinical Summary ---
Author Author [facility] [place], [place], [place], [facility] Organization [facility] [place], [place], [facility] Address Unknown Phone Unavailable Care Team Providers Care Jumpbasting Lining Baster Name Role Phone Rashaun Gonzales MD PCP Allergies Not on File Medications End Date Status Medication Sig Dispensed Refills Start Date Active conjugated estrogens Apply 30 Gram 4 12/29 (PREMARIN) 0.625 mg/gram vaginally 9 vaginal cream once daily for 1 week then go to Thursday, Thursday and Thursday. Active Problems Problem Noted Date Urinary retention 12/29/2018 Social History Date Tobacco Use Types Packs/Day Years Used Never Assessed Sex Assigned at Date Recorded Not on file Industry Job Start Date Occupation Not on file Not on file Not on file Travel End Travel History Travel Start No recent travel history available. Last Filed Vital Signs Not on file Plan of Treatment Health Maintenance Due Date Last Done Comments ZOSTER VACCINE (1 of 2) 1989 OSTEOPOROSIS SCREENING 2004 PNEUMOCOCCAL VACCINE 65+ 2004 YEARS (1 of 2 - PCV13) INFLUENZA VACCINE 02/17/2019 Results Not on filefrom Last 3 Months Insurance Type Payer Benefit Subscriber ID Effective Phone Address Plan / Dates Group Medicare MEDICARE MEDICARE [id number] 2010-P PART A AND resent B Commercial [facility] AARP SUPP [id number] 2010-P resent Medicaid Managed Care [facility] [id number] 2018-P [facility] resent CARE [facility] Advance Directives For more information, please contact: [phone] Patient Office Assistant Explanation Type Date Recorded Advance Directive POA Advance Directive POA Advance Directive 03/10/2013 6:24 PM POA Advance Directive Living Will
--- OUTSIDE RECORDS SUMMARY | 2019-12-05 15:04 | XMS REPORT | Encounter Summary ---
Author Author [facility] Organization [facility] Address Unknown Phone Unavailable Care Team Providers Care Diesel Engine Tester Name Role Phone PCP Unavailable Encounter Details Care Team Description Date Type Department Roman Mckeon MD [address] [facility] [address] [place] [address] [phone] 2003 [facility] al Encounter [address] [place] [address] Social History Date Tobacco Use Types Packs/Day [...] [facility] eatinine Ratio Specimen Urine Performing Organization [facility] one Number [id number] [place] [address] 11 [facility] * Aspartate Aminotransferase (2003 3:51 PM CDT) Aspartate 17 (L) 20 - 50 IU/L [facility] Aminotransferas e Specimen Blood Performing Organization [facility] one Number [id number] [place] [address] 11 [facility] * Lipid Profile Sg (2003 3:51 PM CDT) Cholesterol 191 <200 MG/DL [facility] Triglycerides 228 (H) <150 MG/DL [facility] HDL Cholesterol 33 (L) >41 MG/DL [facility] Cholesterol/HDL 5.8 (H) <4.5 [facility] Ratio Hours 3 [facility] Postprandial LDL Cholesterol 112 (H) 0 - 99 MG/DL [facility] Specimen Performing Organization Address [facility] one Number [facility] [id number] [place] [address] 11 [facility] * Renal Panel (2003 3:51 [...] 10.5 MG/DL [facility] Specimen Blood Performing Organization [facility] one Number [id number] [place] [address] 11 [facility] * Creatine Kinase (2003 3:51 PM CDT) Creatine Kinase 70 30 - 225 IU/L [facility] Specimen Blood Performing Organization Address [facility] one Number [id number] [place] [address] 11 [facility] * Alanine Aminotransferase (2003 3:51 PM CDT) Alanine 18 (L) 20 - 60 IU/L [facility] Aminotransferas e Specimen Blood Performing Organization Address [facility] one Number [id number] [place] [address] 11 [facility] * Hemoglobin A1C (2003 3:51 PM CDT) HEMOGLOBIN A1C 6.7 f % [facility] Specimen Blood Narrative Performed At Report [facility] Comments and Normal Ranges for Com ponent HGB A1C(%) NONDIABETIC- 4.4-6.0% VERY GOOD CONTROL- <7.0% SUBOPTIMAL CONTROL- 7.1-8.0% POOR CONTROL- >8.0% Performing Organization Address [facility] one Number [id number] [place] [address] 11 [facility] * Thyroid Stimulating Hormone (2003 3:51 PM CDT) Thyroid 1.26 0.35 - 5.50 UIU/ML [facility] Stimulating Hormone Specimen Blood Performing Organization Address [facility] one Number [facility] [id number] [place] [address] 11 [facility] documented in this encounter Visit Diagnoses Not on filedocumented in this encounter
--- OUTSIDE RECORDS SUMMARY | 2019-12-05 15:04 | XMS REPORT | Encounter Summary ---
Author Author [facility] [place] [place], [facility] Organization [facility] [place], [facility] Address Unknown Phone Unavailable Care Team Providers Care Criminal Investigator Customs Name Role Phone Rashaun Gonzales MD PCP Encounter Details Care Team Description Date Type Department Matt Berg MD [address] [place] [address] [address] [place] [phone] 08/02/2009 Outpatient JOPL Conversion Historical [address] [place] [address] [place] [id number] Social History Date Tobacco Use Types Packs/Day [...]
--- OUTSIDE RECORDS SUMMARY | 2019-12-05 15:04 | XMS REPORT | Encounter Summary ---
Author Author [facility] [place] [place] Organization [facility] [place], [facility] Address Unknown Phone Unavailable Care Team Providers Care Neonatal Critical Care Nurse Name Role Phone Rashaun Gonzales MD PCP Encounter Details Care Team Description Date Type Department Matt Berg MD [address] [place] [address] 320[address] [place] [phone] 02/07/2010 Outpatient JOPL Conversion Historical [address] [place] [address] [place] [id number] Social History Date Tobacco Use Types Packs/Day [...]
--- OUTSIDE RECORDS SUMMARY | 2019-12-05 15:04 | XMS REPORT | Encounter Summary ---
Author Author [facility], Alexandre Kat, [place], [place], [place] Organization [facility], [place], [place], [place] Address Unknown Phone Unavailable Care Team Providers Care Unix Administrator Name Role Phone Rashaun Gonzales MD PCP Reason for Visit * Reason Comments Urinary Retention Encounter Details Care Team Description Date Type Department Madelyn Holcomb FNP [address] [facility] [address] [place] [address] Urinary retention (Primary Dx) 12/29/2018 Office Visit [facility] [place] 100 [facility] [address] [place] [address] Social History Date Tobacco Use Types Packs/Day Years Used Never Assessed Sex Assigned at Date Recorded Not on file Industry Job Start Date Occupation Not on file Not on file Not on file Travel End Travel History Travel Start No recent travel history available. documented as of this encounter Progress Notes * Madelyn Holcomb FNP - 12/29/2018 1:13 PM CDT OFFICE VISIT REPORT 12/29/2018 Shamika Cain : 1940, 78 y.o. female Chief Complaint Patient presents with Urinary Retention HPI Shamika Cain is a 78 y.o. female is here today for urinary retention. Ch ronic kidney disease. She has retention mainly in the morning and multiple UTIs. In the last year she has had 4 UTI. Urine is cultures urine each time. The infections have been ongoi ng for 3-[address] Elfego Rivera. She also sees jesus for diabetes. Her last Hgb 7.1. She feels like she urinates well throughout the day and is up 2-[address] Celestin did a renal US about 3-5 months ago. No records of this today. She does have some incontinence, mostly with cough/sneeze. She has had breast cancer in the past with a lumpectomy on the left side. She butler s been cancer free for 6 years. Not on File No current outpatient medications on file prior to visit. No current facility-administered medications on file prior to visit. No past surgical history on file. No past medical history on file. No family history on file. Social History Socioeconomic History Marital status: Spouse name: Not on file Number of children: Not on file Years of education: Not on file Highest education level: Not on file Occupational History Not on file Social Needs Financial resource strain: Not on file Food insecurity: Worry: Not on file Inability: Not on file Transportation needs: Medical: Not on file Non-medical: Not on file Tobacco Use Smoking status: Not on file Substance and Sexual Activity Alcohol use: Not on file Drug use: Not on file Sexual activity: Not on file Lifestyle Physical activity: Days per week: Not on file Minutes per session: Not on file Stress: Not on file Relationships Social connections: Talks on phone: Not on file Gets together: Not on file Attends mormon service: Not on file Active member of club or organization: Not on file Attends meetings of clubs or organizations: Not on file Relationship status: Not on file Intimate partner violence: Fear of current or ex partner: Not on file Emotionally abused: Not on file Physically abused: Not on file Forced sexual activity: Not on file Other Topics Concern Not on file Social History Narrative Not on file REVIEW OF SYSTEMS: Review of Systems Constitutional: Negative for chills, fever and unexpected weight change. HENT: Negative for hearing loss, sinus pressure, sinus pain and sore throat. Eyes: Negative for visual disturbance. Respiratory: Negative for cough, shortness of breath and wheezing. Cardiovascular: Negative for chest pain. Gastrointestinal: Negative for abdominal pain, constipation, diarrhea, nausea an d vomiting. Endocrine: Negative for cold intolerance and heat intolerance. Musculoskeletal: Negative for back pain, joint swelling and neck pain. Skin: Negative for color change and rash. Neurological: Negative for dizziness, weakness and numbness. Hematological: Does not bruise/bleed easily. Psychiatric/Behavioral: Negative for sleep disturbance. VITAL SIGNS: There were no vitals taken for this visit. MULTI-SYSTEM PHYSICAL EXAMINATION: Constitutional: Well Nourished. No physical deformities. Normally developed. Good grooming Neck: Neck symmetrical, not swollen. Normal tracheal position. Respiratory: No labored breathing, no use of accessory muscles. Cardiovascular: Normal temperature, normal extremity pulses, no swelling, no va ricosities. Skin: No paleness, no jaundice, no cyanosis. No lesion, no ulcer, no rash. Neuro/Psych: Oriented to person, place, and time. No depression, no anxiety, no agitation. Gastrointstinal: No mass, no tenderness, no rigidity, abdomen is obese. Eyes: Normal conjunctiva. Normal eyelids Ears, Nose, Mouth, & Throat; Left ear no scars, no lesions, no masses. Right ear no scars, no lesions, no masses. Nose no scars, no lesions, no masses. Normal lips. Hearing is normal. Musculoskeletal: Normal gait and station of head and neck. DATA REVIEWED: Most recent labs: Lab Results Component Value Date/Time PHUA 7.0 12/29/2018 01:23 PM SGUR 1.015 12/29/2018 01:23 PM URINELEUKOC Trace (A) 12/29/2018 01:23 PM NITRITEUA Negative 12/29/2018 01:23 PM KETONEURINE Negative 12/29/2018 01:23 PM PROTEINUA Negative 12/29/2018 01:23 PM GLUUA 100 mg/dL (A) 12/29/2018 01:23 PM BLOODUA Negative 12/29/2018 01:23 PM No results found for: CREAT No results found for: PSA, PSADIAG, PSASCRN, PSAFREE Most recent X-ray No results found for this or any previous visit. Most recent CT: No results found for this or any previous visit. All pertinent labs, images, and history reviewed. Source of History: patient Patient's abdomen and suprapubic area palpated to identify the pubic bone. Ultr asound jelly was then applied to the suprapubic area. The suprapubic area was s canned in the usual fashion. The jelly was then cleaned off the patient's supra pubic area. The post void residual was measured to be 0 ml. ASSESSMENT: ICD-10-CM ICD-9-CM 1. Urinary retention R33.9 788.20 POC URINALYSIS DIPSTICK AUTOMATED NE ABI,POST-VOID RES,US,NON-IMAGING PLAN: is a 78-year-old who is here today due to feelings of urinary reten tion. She states that her retention is worse in the morning and as the day goes on she is able to urinate easier. She has 3-4 urinary tract infections a year. She has some urinary incontinence with cough and sneeze mainly. She has ongoing bladder irritation especially when she wakes up at night to go to the restroom. She states that her PCP does culture all positive UAs and treats accordingly. She denies any blood in her urine, fever or abdominal pain. Her PVR today is 0 and her urine is free of any infection or blood. Patient is diabetic with her last hemoglobin A1c being 7.2. We discussed urinary tract infections and urinary retention and the various etio logies. We discussed her normal PVR today and the possible bladder spasms that she is having that is causing her pain. We discussed Estrace cream to help with prevention of urinary tract infections and improvement of symptoms. We discuss ed the safety of this medication in relationship to breast cancer. Patient stat es that she had a renal ultrasound done with Dr. Elfego rivera 3 to 5 months ago wh ich she states was normal. His records are in media however we do not have the renal ultrasound results. Estrace cream topically will be started. We will recheck patient in 6 to 8 week s. We discussed worsening signs and symptoms to watch for. All questions answe red. Schedule Return for 6-8 week follow up. Electronically signed by CLAYTON Barron 12/29/2018 Portions of this document were created using [employer] Schoolbanjo repairer HESKAwa re. Effort has been made to ensure the accuracy of the disability insurance hearing officer. Any obvious errors or omissions should be clarified with the author of this docu ment. documented in this encounter Plan of Treatment Not on filedocumented as of this encounter Procedures Comments Procedure Name Priority Date/Time Associated Diag nosis POC URINALYSIS DIPSTICK Routine 12/29/2018 Urinar y retention AUTOMATED 1:23 PM CDT documented in this encounter Results * POC URINALYSIS DIPSTICK AUTOMATED (12/29/2018 1:23 PM CDT) COLOR UA Yellow Pale to dark yellow [facility] UROLOG CLARITY UA Clear Clear [facility] UROLOG GLUCOSE UA 100 mg/dL (A) Normal, Negative [facility] UROLOG BILIRUBIN UA Negative Negative [facility] UROLOG KETONES UA Negative Negative [facility] UROLOG SPECIFIC 1.015 1.003 - 1.035 [facility] GRAVITY UA [facility] BLOOD UA Negative Negative [facility] UROLOG PH UA 7.0 5.0 - 8.0 [facility] UROLOG PROTEIN UA Negative Negative [facility] UROLOG UROBILINOGEN UA 0.2 <2.0 mg/dL [facility] UROLOG NITRITE UA Negative Negative [facility] UROLOG LEUKOCYTE Trace (A) Negative [facility] ESTERASE UA [facility] UROLOGY KIT [address] NUM[address] [id number] [facility] UROLOGY KIT EXPIRATION 2019-11 [facility] UROLOG Specimen Urine Performing Organization Address City/State/Zipcode Ph one Number [facility] [id number] [place] [address] UROLOGY [address] [place] [address] documented in this encounter Visit Diagnoses Diagnosis Urinary retention - Primary Retention of urine, unspecified documented in this encounter
--- OUTSIDE RECORDS SUMMARY | 2019-12-05 15:04 | XMS REPORT | Encounter Summary ---
Author Author [facility] Address Unknown Phone Unavailable Care Team Providers Care Licensed Guide Name Role Phone PCP Unavailable Encounter Details Care Team Description Date Type Department Roman Mckeon MD [address] [address] [phone] 2003 Hist-Appointmen [facility] Social [...]
--- OUTSIDE RECORDS SUMMARY | 2019-12-05 15:04 | XMS REPORT | Encounter Summary ---
Author [facility] [place] [place], [facility] Organization [facility] [place], [facility] Address Unknown Phone Unavailable Care Team Providers Care Chief Steward/Stewardess Name Role Phone Rashaun Gonzales MD PCP Encounter Details Care Team Description Date Type Department Matt Berg MD [address] [place] [address] [address] [place] [phone] 10/17/2010 Outpatient [facility] Conversion Historical [address] [place] [address] [place] [phone] Social History Date Tobacco Use Types Packs/Day [...]
--- OUTSIDE RECORDS SUMMARY | 2019-12-05 15:04 | XMS REPORT | Encounter Summary ---
Author Author [facility] [place], [place], [facility] Organization [facility] [place], [facility] Address Unknown Phone Unavailable Care Team Providers Care Structural Steel Equipment Erector Name Role Phone Rashaun Gonzales MD PCP Encounter Details Care Team Description Date Type Department Matt Berg MD [address] [place] [address] [address] [place] [phone] 06/27/2010 Outpatient [facility] Conversion Historical [address] [place] [address] [place] [id number] Social History Date Tobacco Use Types Packs/Day [...]
--- OUTSIDE RECORDS SUMMARY | 2019-12-05 15:04 | XMS REPORT | Encounter Summary ---
Author Author [facility] [place], [place], [facility] Organization [facility] [place], [facility] Address Unknown Phone Unavailable Care Team Providers Care Applications Consultant Name Role Phone Rashaun Gonzales MD PCP Encounter Details Care Team Description Date Type Department Jay Marie MD [address] [place] [address] [address] [place] [phone] 05/16/2010 Outpatient [facility] Conversion Historical [address] [place] [address] [place] [id number] Social History Date Tobacco Use Types Packs/Day [...]
--- OUTSIDE RECORDS SUMMARY | 2019-12-05 15:04 | XMS REPORT | Clinical Summary ---
Author Author [facility] Organization [facility] Address Unknown Phone Unavailable Care Team Providers Care Weather Strip Installer Name Role Phone Rashaun Gonzales MD PCP Justina Jesus Unavailable Unavailable Source Comments Some departments are not documenting in the electronic medical record. If you d o not see the information that you expected, contact Release of Information in [facility] Information Management department at [phone] for further assistan ce in locating additional records.[facility] Allergies Comments Active Allergy Reactions Severity Noted Date Amiodarone RASH Medium 04/06/2019 Codeine NAUSEA AND High 04/06/2019 VOMITING Hydrocodone NAUSEA AND High 04/06/2019 VOMITING Penicillins RASH Medium 04/06/2019 Patient denies symptoms but reports a doctor told her to "avoid shrimp and shellfish" Shellfish Containing SEE COMMENTS Low 9 Products Sulfa (Sulfonamide RASH Medium 04/06/2019 Antibiotics) Tramadol NAUSEA AND High 04/06/2019 VOMITING Medications End Date Status Medication Sig Dispensed Refills Start Date Active apixaban (ELIQUIS) 2.5 mg Take 2.5 mg 0 tablet by mouth twice daily. Active rosuvastatin (CRESTOR) 20 Take 20 mg by 0 mg tablet mouth at bedtime daily. Active insulin pump -ASPART- by SubQ Pump 0 Patients Own route. Active clopiDOGrel (PLAVIX) 75 Take one 90 tablet 3 mg tabletIndications: tablet by 9 thrombosis prevention mouth daily. after PCI Indications: blood clot prevention following percutaneous coronary intervention Active cyanocobalamin (VITAMIN Take two 0 B-12) 500 mcg tablet tablets by 9 mouth daily. Active midodrine(+) (PROAMITINE) Take one 0 10 mg tablet tablet by 9 mouth twice daily. Active potassium chloride SR Take 40 meq 90 tablet 3 (K-DUR) 10 mEq tablet twice daily 9 for 2 days, then take 40 meq daily thereafter. Take with a meal and a full glass of water. Active Problems Problem Noted Date S/P TAVR (transcatheter aortic valve replacement) Hypokalemia 04/23/2019 Hyponatremia 04/23/2019 Acute respiratory failure with hypoxia and hypercapni a 04/20/2019 On mechanically assisted ventilation 04/20/2019 Pleural effusion on right 04/20/2019 Vasogenic shock 04/20/2019 Acute blood loss anemia 04/20/2019 Coagulopathy 04/20/2019 Acute on chronic diastolic CHF (congestive heart fail ure), NYHA class 2 04/12/2019 S/P coronary artery stent placement 04/12/2019 Coronary artery disease involving [place] coronary art jeann[place] of [place] heart 04/07/2019 Overview: 04/08/2019 SANTHOSH to ostial mid left anteri or descending, balloon angioplasty of distal left circumflex in-stent rest enosis by Dr. Villavicencio NSTEMI (non-ST elevated myocardial infarction) 04/06 Aortic valve stenosis 04/06/2019 Overview: ECHO on 04/07/19: Severe aortic stenosis valve area calculated at 0.5 cm mean gradient 34 peak velocity 3.5 m/s PVD (peripheral vascular disease) 04/06/2019 PAF (paroxysmal atrial fibrillation) 04/06/2019 SSS (sick sinus syndrome) 04/06/2019 Cardiac pacemaker in situ 04/06/2019 Stenosis of right carotid artery 04/06/2019 Stage 4 chronic kidney disease 04/06/2019 HLD (hyperlipidemia) 04/06/2019 DM2 (diabetes mellitus, type 2) 04/06/2019 Breast cancer 04/06/2019 Family History Medical History Relation Name Comments Heart Attack Brother Heart Disease Brother Stroke Brother Diabetes Father Heart Disease Father Stroke Father Heart Disease Mother Cancer Sister Diabetes Sister Heart Disease Sister Stroke Sister Relation Name Status Comments Brother Father Mother Sister Social History Date Tobacco Use Types Packs/Day [...] travel history available. Last Filed Vital Signs Reading Time Taken Comments Vital Sign 100/42 05/24/2019 3:50 PM BOOKMOBILE LIBRARIAN Blood Pressure 68 05/24/2019 3:50 PM BOOKMOBILE LIBRARIAN Pulse 36.9 C (98.5 F) 04/27/2019 11:50 AM CDT Temperature - - Respiratory Rate 95% 05/24/2019 3:50 PM BOOKMOBILE LIBRARIAN Oxygen Saturation - - Inhaled Oxygen Concentration 90.7 kg (200 lb) 05/24/2019 3:50 PM BOOKMOBILE LIBRARIAN Weight 167.6 cm (5' 6") 05/24/2019 3:50 PM BOOKMOBILE LIBRARIAN Height 32.28 05/24/2019 3:50 PM BOOKMOBILE LIBRARIAN Body Mass Index Plan of Treatment Health Maintenance Due Date Last Done Comments MEDICARE ANNUAL WELLNESS 1940 VISIT DTAP/TDAP VACCINES (1 - 1957 Tdap) PHYSICAL (COMPREHENSIVE) 1957 EXAM SHINGLES RECOMBINANT 1989 VACCINE (1 of 2) OSTEOPOROSIS 2004 SCREENING/MONITORING PNEUMONIA (PPSV23) 2004 VACCINE (1 of 1 - PPSV23) INFLUENZA VACCINE 04/19/2020 05/05/2019 Goals Goal Patient Associated Recent Progress Patient-Stat Aut hor Goal Type Problems ed? Recover from illness Hospital No Jacque Mohr RN To be able to Stay in Own Home Lifestyle No Onur, for as Long as Possible GALINA Santillan Implants Device Identifier Shelf Expiration Date Model / Serial / L ot Implanted Type Area Manufactur er 01/18/2022 [id number] / [id number] / N/A Evolutpro Core Valve 26mm - Heart N/A: Heart UN IDENTIFI [id number] Valve ED MFG Implanted: Qty: 1 on 04/20/2019 by Stef Cheema MD at [facility] Description:[employer] EVOLUT PRO COREVALVE TRANSCATHETER AORTIC VALVE; 26MM Results Not on filefrom Last 3 Months Insurance Type Payer Benefit Subscriber ID Effective Phone Address Plan / Dates Group Medicare MEDICARE MEDICARE xxxxxxxxxxx 2004-P PART A AND resent B PPO [facility] AARP xxxxxxxxxxx 2018-P resent Medicaid [facility] [place]ICAID [place] [facility] xxxxxxxxxxx 2018-P COMMUNITY resent PLAN [place] 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 04/06/2019 10:14 PM Full Code 04/06/2019 9:22 PM Provider has discussed Code Status No, more discussi on w/Patient or Family? needed
--- OUTSIDE RECORDS SUMMARY | 2019-12-05 15:05 | XMS REPORT | Encounter Summary ---
Author Author [facility], [place], [place], [facility] Organization [facility], [place], [facility] Address Unknown Phone Unavailable Care Team Providers Care Associate Java Developer Name Role Phone Rashaun Gonzales MD PCP Encounter Details Care Team Description Date Type Department Jin Burton MD NO ADDRESS ON FILE Coronary atherosclerosis of [place] coron leyla artery (Primary Dx) 07/03/1998 Inpatient [facility] [address] Historical MEDICAL CARDIAC [address] [facility] [place] [phone] Social History Date Tobacco Use Types Packs/Day Years Used Never Assessed Sex Assigned at Date Recorded Not on file Industry Job Start Date Occupation Not on file Not on file Not on file Travel End Travel History Travel Start No recent travel history available. documented as of this encounter Plan of Treatment Not on filedocumented as of this encounter Visit Diagnoses Diagnosis Coronary atherosclerosis of [place] gabriel nary artery - Primary documented in this encounter
--- OUTSIDE RECORDS SUMMARY | 2019-12-05 15:05 | XMS REPORT | Encounter Summary ---
Author Author [facility], [place], [facility] Organization [facility] [place], [facility] Address Unknown Phone Unavailable Care Team Providers Care Product Safety Specialist Name Role Phone Rashaun oGnzales MD PCP Encounter Details Care Team Description Date Type Department Matt Berg MD [address] [place] [address] [address] [place] [phone] CORON ATHEROSCL [place] CORON VESSEL (Saba catia Dx) 09/23/2004 Inpatient [facility] [address] Historical MEDICAL CARDIAC [address] [place] [phone] Social History Date Tobacco [...] encounter Visit Diagnoses Diagnosis Coronary atherosclerosis of [place] gabriel nary artery - Primary documented in this encounter
--- OUTSIDE RECORDS SUMMARY | 2019-12-05 15:05 | XMS REPORT | Encounter Summary ---
Author Author [facility], [place], [place], [facility] Organization [facility] [place], [facility] Address Unknown Phone Unavailable Care Team Providers Care Publication Specialist Name Role Phone Rashaun Gonzales MD PCP Encounter Details Care Team Description Date Type Department Jin Burton MD NO ADDRESS ON FILE CORONARY ATHEROSCLER UNSPEC VESSEL (Prim leyla Dx) 09/04/2004 Inpatient [facility] Laboratory Se rvices Historical Aristes [address] [facility] [place] [phone] Social History Date Tobacco Use Types Packs/Day [...] encounter Visit Diagnoses Diagnosis Coronary atherosclerosis of unspecified type of vessel, campo or graft - Primary documented in this encounter
--- OUTSIDE RECORDS SUMMARY | 2019-12-05 15:05 | XMS REPORT | Encounter Summary ---
Author Author [facility], [place], [place], [facility] Organization [facility], [place], [facility] Address Unknown Phone Unavailable Care Team Providers Care Marine Steward Name Role Phone Rashaun Gonzales MD PCP Encounter Details Care Team Description Date Type Department John Aragon MD [address] [place] [id number] SUBENDO FIRST EPISODE CARE (Primary Dx) 11/25/2004 Inpatient [facility] [place] Historical MEDICAL CARDIAC [facility] [place] [phone] Social History Date Tobacco [...] as of this encounter Visit Diagnoses Diagnosis Acute myocardial infarction, subendocar dial infarction, initial episode of care - Primary documented in this encounter
--- OUTSIDE RECORDS SUMMARY | 2019-12-05 15:05 | XMS REPORT | Encounter Summary ---
Author Author [facility], [place], [facility] Organization [facility] [place] [place], [facility] Address Unknown Phone Unavailable Care Team Providers Care Pants Presser Automatic Name Role Phone Rashaun Gonzales MD PCP Encounter Details Care Team Description Date Type Department Rod Olivares MD [address] [facility] [address] [place] [phone] Coronary Atherosclerosis of [place] Coron leyla Artery (Primary Dx) 02/12/2006 Inpatient [facility] [address] Historical MEDICAL CARDIAC [address] [facility] [place] [phone] Social History Date Tobacco [...] encounter Visit Diagnoses Diagnosis Coronary atherosclerosis of [place] gabriel nary artery - Primary documented in this encounter
--- OUTSIDE RECORDS SUMMARY | 2019-12-05 15:05 | XMS REPORT | Encounter Summary ---
Author Author [facility], [place]raim Zapata, Joe, [facility] Organization [facility] DouglasEphraim, Joe, [facility] Address Unknown Phone Unavailable Care Team Providers Care Reiki Practitioner Name Role Phone Rashaun Gonzales MD PCP Encounter Details Care Team Description Date Type Department Jin Burton MD NO ADDRESS ON FILE CORONARY ATHEROSCLER UNSPEC VESSEL (Prim leyla Dx) 10/25/2004 Inpatient [facility] Laboratory Se rvices Historical [place] [address] [facility] [place] [phone] Social History Date Tobacco [...] Coronary atherosclerosis of unspecified type of vessel, cachil dehe or graft - Primary documented in this encounter
--- OUTSIDE RECORDS SUMMARY | 2019-12-05 15:05 | XMS REPORT | Encounter Summary ---
Author Author [facility] ChamberinoEphraim, [place], [facility] Organization [facility] SmithEphraim [place], [facility] Address Unknown Phone Unavailable Care Team Providers Care Street Supervisor Name Role Phone Rashaun Gonzales MD PCP Encounter Details Care Team Description Date Type Department Rod Olivares MD [address] [facility] [address] [place] [phone] Unspecified Chest Pain (Primary Dx) 02/11/2008 Inpatient [facility] [place] [address] Historical MEDICAL CARDIAC [address] [facility] [place] [phone] Social History Date [...] as of this encounter Visit Diagnoses Diagnosis Chest pain, unspecified - Primary documented in this encounter
--- OUTSIDE RECORDS SUMMARY | 2019-12-05 15:05 | XMS REPORT | Encounter Summary ---
Author Author [facility] [place], [place], [facility] Organization [facility] SmithEphraim, Joe, [facility] Address Unknown Phone Unavailable Care Team Providers Care Deputy Sheriff/Investigator Name Role Phone Rashaun Gonzales MD PCP Encounter Details Care Team Description Date Type Department Kareem Zaldivar MD [facility] [place] [address] [address] [phone] Coronary atherosclerosis of [place] coron leyla artery (Primary Dx) 07/24/1998 Inpatient [facility] [place] [address] [place] [address] CORONARY CARE UNIT [address] [place] [address] [place] [phone] Social History Date Tobacco Use Types Packs/Day [...] encounter Visit Diagnoses Diagnosis Coronary atherosclerosis of [place] gabriel nary artery - Primary documented in this encounter
--- OUTSIDE RECORDS SUMMARY | 2019-12-05 15:05 | XMS REPORT | Encounter Summary ---
Author Author [facility] [place], [place], [facility] Organization [facility] [place], [place], [facility] Address Unknown Phone Unavailable Care Team Providers Care Commercial Loan Administrator Name Role Phone Rashaun Gonzales MD PCP Encounter Details Care Team Description Date Type Department Jin Burton MD NO ADDRESS ON FILE 09/02/1995 Inpatient Historical Social History Date Tobacco Use Types Packs/Day [...]
--- OUTSIDE RECORDS SUMMARY | 2019-12-05 15:05 | XMS REPORT | Encounter Summary ---
Author Author [facility] [place], [place], [facility] Organization [facility] SmithEphraim [place], [facility] Address Unknown Phone Unavailable Care Team Providers Care Bushler Name Role Phone Rashaun Gonzales MD PCP Encounter Details Care Team Description Date Type Department Jose Luis Arizmendi MD [address] [place] [id number] Unspecified Chest Pain (Primary Dx) 03/02/2006 Inpatient [facility] [place] [address] Historical MEDICAL CARDIAC [address] [place] [phone] Social History Date Tobacco Use Types Packs/Day [...]
--- OUTSIDE RECORDS SUMMARY | 2019-12-05 15:05 | XMS REPORT | Encounter Summary ---
Author Author [facility], [place], [facility] Organization [facility] SmithEphraim [place], [facility] Address Unknown Phone Unavailable Care Team Providers Care Seasonal Package Handler Name Role Phone Rashaun Gonzales MD PCP Encounter Details Care Team Description Date Type Department Matt Berg MD [address] [facility] [address] [place] [phone] CORON ATHEROSCL [place] CORON VESSEL (Saba catia Dx) 09/12/2004 Inpatient [facility] [address] Historical CARDIAC TELEMETRY [address] [facility] [place] [phone] Social History Date Tobacco Use Types [...] encounter Visit Diagnoses Diagnosis Coronary atherosclerosis of [place] gabriel nary artery - Primary documented in this encounter
--- OUTSIDE RECORDS SUMMARY | 2019-12-05 15:05 | XMS REPORT | Encounter Summary ---
Author Author [facility] e|tabEphraim, [place], [facility] Organization [facility] e|tab [place], [place], [facility] Address Unknown Phone Unavailable Care Team Providers Care Director Of Public Health Name Role Phone Rashaun Gonzales MD PCP Encounter Details Care Team Description Date Type Department Jin Burton MD NO ADDRESS ON FILE 04/19/1996 Inpatient Historical Social History Date Tobacco Use [...] Visit Diagnoses Not on filedocumented in this encounter"
--- OUTSIDE RECORDS SUMMARY | 2019-12-05 15:05 | XMS REPORT | Encounter Summary ---
Author Author [facility] [place], [place], [facility] Organization [facility]ark[facility], [place], [facility] Address Unknown Phone Unavailable Care Team Providers Care Electroslag Welding Machine Operator Name Role Phone Rashaun Gonzales MD PCP Encounter Details Care Team Description Date Type Department John Aragon MD [address] [place] [address] CORON ATHEROSCL [place] CORON VESSEL (Saba catia Dx) 12/12/2004 Inpatient [facility] [place] [address] Historical MEDICAL CARDIAC [address] [facility] [place] [phone] Social History Date [...] encounter Visit Diagnoses Diagnosis Coronary atherosclerosis of [place] gabriel nary artery - Primary documented in this encounter
--- OUTSIDE RECORDS SUMMARY | 2019-12-05 15:05 | XMS REPORT | Encounter Summary ---
Author Author [facility] Fang[place]phra[place], [place], [facility] Organization [facility] [place], [place], [facility] Address Unknown Phone Unavailable Care Team Providers Care Ophthalmic Medical Technologist Name Role Phone Rashaun Gonzales MD PCP Encounter Details Care Team Description Date Type Department Jin Burton MD NO ADDRESS ON FILE 04/12/1996 Inpatient Historical Social History Date Tobacco Use [...]
--- OUTSIDE RECORDS SUMMARY | 2019-12-05 15:05 | XMS REPORT | Encounter Summary ---
Author Author [facility], [place]ola[place]phra[place], [place], [facility] Organization [facility] ViolaEphraim, Joe, [facility] Address Unknown Phone Unavailable Care Team Providers Care Horizontal Boring Mill Set Up Operator Name Role Phone Rashaun Gonzales MD PCP Encounter Details Care Team Description Date Type Department Jin Burton MD NO ADDRESS ON FILE RESPIRATORY ABNORM NEC (Primary Dx) 10/27/2001 Inpatient Historical [place] [facility] Historical Social History Date Tobacco Use Types Packs/Day Years Used Never Assessed Sex Assigned at Date Recorded Not on file Industry Job Start Date Occupation Not on file Not on file Not on file Travel End Travel History Travel Start No recent travel history available. documented as of this encounter Plan of Treatment Not on filedocumented as of this encounter Visit Diagnoses Diagnosis Other dyspnea and respiratory abnormali ty - Primary documented in this encounter
--- OUTSIDE RECORDS SUMMARY | 2019-12-05 15:08 | XMS REPORT | Continuity of Care Document ---
Author Organization Unknown Address Unknown Phone Unavailable Allergies Active Description Code Type Severity Reaction Onset Reported/Identified Relationship to Patient Clinical Status Yes sulfamethoxazole [id number] Drug Allergy Moderate N/A 10/05/2015 Yes tramadol [id number] Drug Allergy Moderate N/A 10/05/2015 Yes trimethoprim [id number] Drug Allergy Moderate N/A 10/05/2015 Yes codeine [id number] Drug Allergy Unknown CAN TAKE MORPHI 10/05/2015 Yes hydrocodone [id number] Drug Aller gy Unknown N/A 10/05/2015 Yes Penicillins [id number] Drug Aller gy Unknown N/A 10/05/2015 Yes amiodarone [id number] Drug Allerg y Unknown NAUSEA, dizzine 12/05/2015 Yes amiodarone [id number] Drug Allerg y Mild NAUSEA, dizzine 02/01/2016 Yes morphine [id number] Drug Allergy Moderate Nausea 06/03/2019 Medications There [...] NAOMY KINGP Ot 585.3 08/31/2014 NAOMY KING GROUP RESERVATIONS COORDINATOR Ot V15.3 08/31/2014 NAOMY KINGP Ot V58.67 08/31/2014 KINGNAOMY Diaz S GROUP RESERVATIONS COORDINATOR Ot V58.69 08/31/2014 ANTHONY GARZA N Ot 174.9 08/31/2014 ANTHONY GARZA N Ot V76.11 08/31/2014 KINGNAOMY Diaz S GROUP RESERVATIONS COORDINATOR Ot 174.9 08/31/2014 KINGNAOMY S GROUP RESERVATIONS COORDINATOR Ot 250.00 08/31/2014 KINGNAOMY S GROUP RESERVATIONS COORDINATOR Ot 585.3 08/31/2014 KINGNAOMY S GROUP RESERVATIONS COORDINATOR Ot V15.3 08/31/2014 KINGNAOMY S GROUP RESERVATIONS COORDINATOR Ot V58.67 08/31/2014 KNIGNAOMY S GROUP RESERVATIONS COORDINATOR Ot V58.69 09/13/2014 KINGNAOMY S GROUP RESERVATIONS COORDINATOR Ot 174.9 09/13/2014 KINGNAOMY S GROUP RESERVATIONS COORDINATOR Ot 250.00 09/13/2014 KINGNAOMY S GROUP RESERVATIONS COORDINATOR Ot 585.3 09/13/2014 KINGNAOMY Diaz S GROUP RESERVATIONS COORDINATOR Ot V15.3 09/13/2014 KINGNAOMY Diza S GROUP RESERVATIONS COORDINATOR Ot V58.67 09/13/2014 KINGNAOMY Diaz S GROUP RESERVATIONS COORDINATOR Ot V58.69 12/25/2014 ANTHONY GARZA N Ot 174.9 12/25/2014 ANTHONY GARZA N Ot V76.11 12/25/2014 KINGNAOMY Diaz S GROUP RESERVATIONS COORDINATOR Ot 174.9 12/25/2014 KINGNAOMY Diaz S GROUP RESERVATIONS COORDINATOR Ot 250.00 12/25/2014 KINGNAOMY S GROUP RESERVATIONS COORDINATOR Ot 585.3 12/25/2014 KINGNAOMY S GROUP RESERVATIONS COORDINATOR Ot V15.3 12/25/2014 KINGNAOMY S GROUP RESERVATIONS COORDINATOR Ot V58.67 12/25/2014 KINGNAOMY S GROUP RESERVATIONS COORDINATOR Ot V58.69 12/25/2014 KINGNAOMY S GROUP RESERVATIONS COORDINATOR Ot 174.9 12/25/2014 KINGNAOMY S GROUP RESERVATIONS COORDINATOR Ot V49.81 12/25/2014 KINGNAOMY S GROUP RESERVATIONS COORDINATOR Ot V58.69 12/25/2014 MARCELO ROJAS, JOE Sherman [...] ROJAS, MARLOHAR J Ot 433. 10 12/26/2014 SOMMRE ROJAS, DIMPLE J Ot 443. 9 12/26/2014 [...] N Ot V76.11 2015 NAOMY KING S GROUP RESERVATIONS COORDINATOR Ot 174.9 2015 KINGNAOMY Diaz S GROUP RESERVATIONS COORDINATOR Ot 250.00 2015 KINGNAOMY Diaz S GROUP RESERVATIONS COORDINATOR Ot 585.3 2015 NAOMY KING S GROUP RESERVATIONS COORDINATOR Ot V15.3 2015 NAOMY KING S GROUP RESERVATIONS COORDINATOR Ot V58.67 2015 KINGNAOMY Diaz S GROUP RESERVATIONS COORDINATOR Ot V58.69 2015 KINGNAOMY Diaz S GROUP RESERVATIONS COORDINATOR Ot 174.9 2015 NAOMY KING S GROUP RESERVATIONS COORDINATOR Ot V49.81 2015 NAOMY KING S GROUP RESERVATIONS COORDINATOR Ot V58.69 2015 MARCELO ROJAS, JOE Sherman Ot 599.0 2015 GREGANTHONY SAMSON N Ot 174.9 2015 GREG, ANTHONY N Ot 250.00 2015 GREGANTHONY SAMSON N Ot 585.3 2015 GREGANTHONY SAMSON N Ot V15.3 2015 GREGANTHONY SAMSON N Ot V49.81 2015 GREGANTHONY SAMSON N Ot V58.67 2015 GREGANTHONY SAMSON N Ot V58.69 04/18/2015 SULTANA, ANUP L GROUP RESERVATIONS COORDINATOR Ot 240.9 04/18/2015 RD ANUP L GROUP RESERVATIONS COORDINATOR Ot 266.2 04/18/2015 SULTANA, ANUP L GROUP RESERVATIONS COORDINATOR Ot 268.9 04/18/2015 SULTANA, ANUP L GROUP RESERVATIONS COORDINATOR Ot 275.2 04/18/2015 SULTANA, ANUP L GROUP RESERVATIONS COORDINATOR Ot 458.9 04/18/2015 SULTANA, ANUP L GROUP RESERVATIONS COORDINATOR Ot 593.9 04/18/2015 SULTANA, ANUP L GROUP RESERVATIONS COORDINATOR Ot 785.1 04/18/2015 SARAHY SULTANARICIA L GROUP RESERVATIONS COORDINATOR Ot 787.20 05/10/2015 ANGEL MCDOWELL MD Ot E11.40 TYPE 2 DIABETES MELLITUS WITH DIABETIC N 05/10/2015 ANGEL MCDOWELL MD Ot G45 .9 TRANSIENT CEREBRAL ISCHEMIC ATTACK, UNSP 05/10/2015 ANGEL MCDOWELL MD Ot Z79.02 PRISON (CURRENT) USE OF ANTITHROMBOTI 05/10/2015 ANGEL MCDOWELL MD Ot Z79 .4 PRISON (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 05/10/2015 ANGEL MCDOWELL MD Ot Z79.899 OTHER PRISON (CURRENT) DRUG THERAPY 05/10/2015 VITALY CANDELARIO DENIS K Ot E11.40 TYPE 2 DIABETES MELLITUS WITH DIABETIC N 05/10/2015 VITALY CANDELARIO DENIS K Ot G45.9 TRANSIENT CEREBRAL ISCHEMIC ATTACK, UNSP 05/10/2015 VITALY CANDELARIO DENIS K Ot Z79.02 PRISON (CURRENT) USE OF ANTITHROMBOTI 05/10/2015 DENIS HAIDER DO Ot Z79.4 CHILD CENTER ASSISTANT (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 05/10/2015 DENIS HAIDER DO Ot Z79.82 PRISON (CURRENT) USE OF ASPIRIN 05/29/2015 ANUP SULTANA L GROUP RESERVATIONS COORDINATOR Ot 240.9 05/29/2015 SULTANA, ANUP L GROUP RESERVATIONS COORDINATOR Ot 266.2 05/29/2015 SULTANA, ANUP L GROUP RESERVATIONS COORDINATOR Ot 268.9 05/29/2015 SULTANA, ANUP L GROUP RESERVATIONS COORDINATOR Ot 275.2 05/29/2015 SULTANA, ANUP L GROUP RESERVATIONS COORDINATOR Ot 458.9 05/29/2015 SULTANA, ANUP L GROUP RESERVATIONS COORDINATOR Ot 593.9 05/29/2015 SULTANA, ANUP L GROUP RESERVATIONS COORDINATOR Ot 785.1 05/29/2015 SULTANA, ANUP L GROUP RESERVATIONS COORDINATOR Ot 787.20 06/27/2015 MARCELO ROJAS, JOE Sherman Ot R19.7 08/09/2015 JOE ROBERTSON MD Ot A04.7 08/27/2015 JOE ROBERTSON MD Ot R19.7 08/31/2015 Ot Z12.31 09/25/2015 JOE ROBERTSON MD Ot R19.7 DIARRHEA, UNSPECIFIED 09/25/2015 Ot Z12.31 09/25/2015 SULTANA, ANUP L GROUP RESERVATIONS COORDINATOR Ot 240.9 09/25/2015 SULTANA, ANUP L GROUP RESERVATIONS COORDINATOR Ot 266.2 09/25/2015 SULTANA, ANUP L GROUP RESERVATIONS COORDINATOR Ot 268.9 09/25/2015 SULTANA, ANUP L GROUP RESERVATIONS COORDINATOR Ot 275.2 09/25/2015 SULTANA, NAUP L GROUP RESERVATIONS COORDINATOR Ot 458.9 09/25/2015 SULTANA, ANUP L GROUP RESERVATIONS COORDINATOR Ot 593.9 09/25/2015 SULTANA, ANUP L GROUP RESERVATIONS COORDINATOR Ot 785.1 09/25/2015 RD ANUP L GROUP RESERVATIONS COORDINATOR Ot 787.20 09/25/2015 JOE ROBERTSON MD Ot [...] Ot I25.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 10/06/2015 JOE ROBERTSON MD Ot K21.9 [...] INI 10/06/2015 JOE ROBERTSON MD Ot Z79.4 CHILD CENTER ASSISTANT (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 10/06/2015 JOE ROBERTSON MD Ot Z95.0 PRESENCE OF CARDIAC PACEMAKER 10/06/2015 JOE ROBERTSON MD Ot Z95.5 PRESENCE OF CORONARY ANGIOPLASTY IMPLANT 10/06/2015 JOE ROBERTSON MD Ot E11.9 10/06/2015 JOE ROBERTSON MD, Ot E78.5 10/06/2015 JEO ROBERTSON MD, Ot I10 10/06/2015 JOE ROBERTSON [...] MD Ot Z95.5 10/15/2015 RD ANUP L GROUP RESERVATIONS COORDINATOR Ot 240.9 10/15/2015 RD ANUP Salvatore GROUP RESERVATIONS COORDINATOR Ot 266.2 10/15/2015 RD ANUP L GROUP RESERVATIONS COORDINATOR Ot 268.9 10/15/2015 SARAHY SULTANARICIA Salvatore GROUP RESERVATIONS COORDINATOR Ot 275.2 10/15/2015 RD ANUP Salvatore GROUP RESERVATIONS COORDINATOR Ot 458.9 10/15/2015 KIERAN SULTANAIA Salvatore GROUP RESERVATIONS COORDINATOR Ot 593.9 10/15/2015 ANUP SULTANA GROUP RESERVATIONS COORDINATOR Ot 785.1 10/15/2015 ANUP SULTANA GROUP RESERVATIONS COORDINATOR Ot 787.20 10/15/2015 MARCELO ROJAS, JOE Sherman [...] Soliman Ot I25.10 ATHSCL HEART DISEASE OF [place] CORONARY 11/21/2015 JOE ROBERTSON MD Ot E11.6 [...] Soliman Ot I25.10 ATHSCL HEART DISEASE OF [place] CORONARY 12/05/2015 Ot V45.82 PER CUTANEOUS TRANSLUM CORON ANGIOPLASTY 12/05/2015 Ot V57.89 BEAN ABILITATION PROC NEC 12/05/2015 Ot R19.7 DIAR KRIS, UNSPECIFIED 12/06/2015 JOE ROBERTSON MD Ot E11.9 TYPE 2 DIABETES MELLITUS WITHOUT COMPLIC 12/06/2015 JOE ROBERTSON MD Ot E86.0 DEHYDRATION 12/06/2015 JOE ROBERTSON MD, Ot I25.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 12/06/2015 JOE ROBERTSON MD Ot I48.9 [...] Ot I25.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 12/06/2015 JOE ROBERTSON MD Ot I48.9 [...] Soliman Ot I25.10 ATHSCL HEART DISEASE OF [place] CORONARY 01/04/2016 DOT ROJAS, NAFISA Tong Ot [...] UNSP 02/18/2016 ANGEL MCDOWELL MD Ot Z79.02 CHILD CENTER ASSISTANT (CURRENT) USE OF ANTITHROMBOTI 02/18/2016 ANGEL MCDOWELL MD Ot Z79 .4 PRISON (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 02/18/2016 ANGEL MCDOWELL MD Ot Z79.899 OTHER CHILD CENTER ASSISTANT (CURRENT) DRUG THERAPY 02/21/2016 NAOMY KING GROUP RESERVATIONS COORDINATOR Ot Z 09 ENCNTR FOR F/U EXAM AFT TRTMT FOR COND O 02/21/2016 NAOMY KING GROUP RESERVATIONS COORDINATOR Ot Z85.3 PERSONAL HISTORY OF MALIGNANT NEOPLASM O 03/07/2016 DIMPLE NOVOA MD Ot I65. 23 OCCLUSION AND STENOSIS OF [place]ILATERAL [place] 03/07/2016 DIMPLE NOVOA MD, Ot R42 DIZZINESS AND GIDDINESS 03/08/2016 ANGEL MCDOWELL MD Ot E11.40 TYPE 2 DIABETES MELLITUS WITH DIABETIC N 03/08/2016 ANGEL MCDOWELL MD Ot G45 .9 TRANSIENT CEREBRAL ISCHEMIC ATTACK, UNSP 03/08/2016 ANGEL MCDOWELL MD Ot Z79.02 CHILD CENTER ASSISTANT (CURRENT) USE OF ANTITHROMBOTI 03/08/2016 ANGEL MCDOWELL MD Ot Z79 .4 PRISON (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 03/08/2016 ANGEL MCDOWELL MD Ot Z79.899 OTHER PRISON (CURRENT) DRUG THERAPY 03/14/2016 NAOMY KING GROUP RESERVATIONS COORDINATOR Ot Z 09 ENCNTR FOR F/U EXAM [...] OF MALIGNANT NEOPLASM O 06/06/2016 ANUP SULTANA GROUP RESERVATIONS COORDINATOR Ot 240.9 GOITER NOS 06/06/2016 ANUP SULTANA GROUP RESERVATIONS COORDINATOR Ot 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 06/06/2016 KIERAN SULTANAIA Salvatore GROUP RESERVATIONS COORDINATOR Ot 268.9 VITAMIN D DEFICIENCY NOS 06/06/2016 KIERAN SULTANAIA Salvatore GROUP RESERVATIONS COORDINATOR Ot 275.2 DIS MAGNESIUM METABOLISM 06/06/2016 SULTANA, ANUP Salvatore GROUP RESERVATIONS COORDINATOR Ot 458.9 HYPOTENSION NOS 06/06/2016 KIERAN SULTANAIA L GROUP RESERVATIONS COORDINATOR Ot 593.9 RENAL URETERAL DIS NOS 06/06/2016 RD ANUP Salvatore GROUP RESERVATIONS COORDINATOR Ot 785.1 PALPITATIONS 06/06/2016 RD ANUP Salvatore GROUP RESERVATIONS COORDINATOR Ot 787.20 DYSPHAGIA, UNSPECIFIED 06/06/2016 MARCELO ROJAS, [...] FOR COND O 06/06/2016 KING, HILAH S GROUP RESERVATIONS COORDINATOR Ot Z85.3 PERSONAL HISTORY OF MALIGNANT NEOPLASM O 06/10/2016 DESTINEE SULTANA DO Ot E04.1 NONTOXIC SINGLE THYROID NODULE 06/11/2016 DESTINEE SULTANA DO Ot E04.1 NONTOXIC SINGLE THYROID NODULE 07/02/2016 DESTINEE SULTANA DO Ot E04.1 NONTOXIC SINGLE THYROID NODULE 07/15/2016 DESTINEE SULTANA DO Ot E04.1 NONTOXIC SINGLE THYROID NODULE 08/12/2016 ANUP SULTANA GROUP RESERVATIONS COORDINATOR Ot 240.9 GOITER NOS 08/12/2016 ANUP SULTANA GROUP RESERVATIONS COORDINATOR Ot 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 08/12/2016 ANUP SULTANA L GROUP RESERVATIONS COORDINATOR Ot 268.9 VITAMIN D DEFICIENCY NOS 08/12/2016 ANUP SULTANA GROUP RESERVATIONS COORDINATOR Ot 275.2 DIS MAGNESIUM METABOLISM 08/12/2016 ANUP SULTANA GROUP RESERVATIONS COORDINATOR Ot 458.9 HYPOTENSION NOS 08/12/2016 ANUP SULTANA GROUP RESERVATIONS COORDINATOR Ot 593.9 RENAL URETERAL DIS NOS 08/12/2016 ANUP SULTANA GROUP RESERVATIONS COORDINATOR Ot 785.1 PALPITATIONS 08/12/2016 ANUP SULTANA GROUP RESERVATIONS COORDINATOR Ot 787.20 DYSPHAGIA, UNSPECIFIED 08/12/2016 MARCELO ROJAS, [...] MAMMOGRAM FOR MALIGNANT NE 08/13/2016 ANUP SULTANA GROUP RESERVATIONS COORDINATOR Ot 240.9 GOITER NOS 08/13/2016 ANUP SULTANA GROUP RESERVATIONS COORDINATOR Ot 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 08/13/2016 ANUP SULTANA L GROUP RESERVATIONS COORDINATOR Ot 268.9 VITAMIN D DEFICIENCY NOS 08/13/2016 KIERAN SULTANAIA L GROUP RESERVATIONS COORDINATOR Ot 275.2 DIS MAGNESIUM METABOLISM 08/13/2016 ANUP SULTANA L GROUP RESERVATIONS COORDINATOR Ot 458.9 HYPOTENSION NOS 08/13/2016 ANUP SULTANA GROUP RESERVATIONS COORDINATOR Ot 593.9 RENAL URETERAL DIS NOS 08/13/2016 KIERAN SULTANAIA Salvatore GROUP RESERVATIONS COORDINATOR Ot 785.1 PALPITATIONS 08/13/2016 ANUP SULTANA GROUP RESERVATIONS COORDINATOR Ot 787.20 DYSPHAGIA, UNSPECIFIED 08/13/2016 MARCELO ROJAS, [...] MALIGNANT NEOPLASM O 08/13/2016 KING, HILAH S GROUP RESERVATIONS COORDINATOR Ot Z12.31 ENCNTR SCREEN MAMMOGRAM FOR MALIGNANT NE 08/13/2016 DESTINEE SULTANA DO Ot E04.1 NONTOXIC SINGLE THYROID NODULE 08/13/2016 NAOMY KING GROUP RESERVATIONS COORDINATOR Ot Z12.31 ENCNTR SCREEN MAMMOGRAM FOR MALIGNANT NE 08/13/2016 NAOMY KING S GROUP RESERVATIONS COORDINATOR Ot Z12.31 ENCNTR SCREEN MAMMOGRAM FOR MALIGNANT NE 08/14/2016 Ot Z12.31 ENC NTR SCREEN MAMMOGRAM FOR MALIGNANT NE 08/14/2016 NAOMY KING S GROUP RESERVATIONS COORDINATOR Ot Z12.31 ENCNTR SCREEN MAMMOGRAM FOR MALIGNANT NE 09/03/2016 NAOMY KING GROUP RESERVATIONS COORDINATOR Ot Z12.31 ENCNTR SCREEN MAMMOGRAM FOR MALIGNANT [...] R42 DIZZINESS AND GIDDINESS 12/12/2016 NAOMY KING GROUP RESERVATIONS COORDINATOR Ot Z 09 ENCNTR FOR F/U EXAM AFT TRTMT FOR COND O 12/12/2016 NAOMY KING GROUP RESERVATIONS COORDINATOR Ot Z85.3 PERSONAL HISTORY OF MALIGNANT NEOPLASM O 12/12/2016 NAOMY KING GROUP RESERVATIONS COORDINATOR Ot Z12.31 ENCNTR SCREEN MAMMOGRAM FOR MALIGNANT [...] NE 12/18/2016 DOT ROJAS, NAFISA Tong Ot E04 .1 [...] NONTOXIC SINGLE THYROID NODULE 12/25/2016 ANUP SULTANA GROUP RESERVATIONS COORDINATOR Ot E04.1 NONTOXIC SINGLE THYROID NODULE 12/25/2016 GRECIA DIXON Ot E11.9 TYPE 2 DIABETES MELLITUS WITHOUT COMPLIC 12/25/2016 GRECIA DIXON Ot I10 ESSENTIAL (PRIMARY) HYPERTENSION 12/25/2016 GRECIA DIXON Ot I25.10 ATHSCL HEART DISEASE OF [place] CORONARY 12/25/2016 GRECIA DIXON Ot I65.23 OCCLUSION AND STENOSIS OF [place] 12/27/2016 DIMPLE NOVOA MD Ot E11. 9 TYPE 2 DIABETES MELLITUS WITHOUT COMPLIC 12/27/2016 DIMPLE NOVOA MD Ot E78. 5 HYPERLIPIDEMIA, UNSPECIFIED 12/27/2016 DIMPLE NOVOA MD Ot I10 ESSENTIAL (PRIMARY) HYPERTENSION 12/27/2016 DIMPLE NOVOA MD Ot I25. 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 5 SICK SINUS SYNDROME 12/27/2016 DIMPLE NOVOA MD Ot R94. 39 ABNORMAL RESULT OF OTHER CARDIOVASCULAR 12/27/2016 DIMPLE NOVOA MD Ot T82.855A STENOSIS OF CORONARY ARTERY STENT, INITI 12/27/2016 DIMPLE NOVOA MD Ot Z79. 4 CHILD CENTER ASSISTANT (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 12/27/2016 DIMPLE NOVOA MD Ot Z79.899 OTHER CHILD CENTER ASSISTANT (CURRENT) DRUG THERAPY 12/27/2016 DIMPLE NOVOA MD Ot Z95. 0 PRESENCE OF CARDIAC PACEMAKER 01/06/2017 GRECIA DIXON Ot E11.9 TYPE 2 DIABETES MELLITUS WITHOUT COMPLIC 01/06/2017 GRECIA DIXON Ot I10 ESSENTIAL (PRIMARY) HYPERTENSION 01/06/2017 GRECIA DIXON Ot I25.10 ATHSCL HEART DISEASE OF [place] CORONARY 01/06/2017 GRECIA DIXON Ot I65.23 OCCLUSION AND STENOSIS OF [place] 01/06/2017 ANUP SULTANA GROUP RESERVATIONS COORDINATOR Ot E04.1 NONTOXIC SINGLE THYROID NODULE 01/06/2017 NAOMY KING GROUP RESERVATIONS COORDINATOR Ot 174.9 MALIGN NEOPL BREAST NOS 01/06/2017 NAUP SULTANA GROUP RESERVATIONS COORDINATOR Ot E04.1 NONTOXIC SINGLE THYROID NODULE 01/07/2017 DIMPLE NOVOA MD, Ot E11. 9 TYPE 2 DIABETES MELLITUS WITHOUT COMPLIC 01/07/2017 DIMPLE NOVOA MD, Ot E78. 5 HYPERLIPIDEMIA, UNSPECIFIED 01/07/2017 DIMPLE NOVOA MD Ot I10 ESSENTIAL (PRIMARY) HYPERTENSION 01/07/2017 DIMPLE NOVOA MD, Ot I25. 10 ATHSCL HEART DISEASE OF [place] CORONARY 01/07/2017 DIMPLE NOVOA MD, Ot I25. 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 5 SICK SINUS SYNDROME 01/07/2017 DIMPLE NOVOA MD, Ot R94. 39 ABNORMAL RESULT OF OTHER CARDIOVASCULAR 01/07/2017 DIMPLE NOVOA MD Ot T82.855A STENOSIS OF CORONARY ARTERY STENT, INITI 01/07/2017 DIMPLE NOVOA MD, Ot Z79. 4 PRISON (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 01/07/2017 DIMPLE NOVOA MD, Ot Z79.899 OTHER CHILD CENTER ASSISTANT (CURRENT) DRUG THERAPY 01/07/2017 DIMPLE NOVOA MD Ot Z95. 0 PRESENCE OF CARDIAC PACEMAKER 01/13/2017 GRECIA DIXON Ot E11.9 TYPE 2 DIABETES MELLITUS WITHOUT COMPLIC 01/13/2017 GRECIA DIXON Ot I10 ESSENTIAL (PRIMARY) HYPERTENSION 01/13/2017 GRECIA DIXON Ot I25.10 ATHSCL HEART DISEASE OF [place] CORONARY 01/13/2017 GRECIA DIXON Ot I65.23 OCCLUSION AND STENOSIS OF [place] 01/14/2017 GRECIA IDXON Ot E11.9 TYPE 2 DIABETES MELLITUS WITHOUT COMPLIC 01/14/2017 GRECIA DIXON Ot I10 ESSENTIAL (PRIMARY) HYPERTENSION 01/14/2017 GRECIA DIXON Ot I25.10 ATHSCL HEART DISEASE OF [place] CORONARY 01/14/2017 GRECIA DIXON Ot I65.23 OCCLUSION AND STENOSIS OF [place] 01/17/2017 DIMPLE NOVOA MD Ot E11. 9 TYPE 2 DIABETES MELLITUS WITHOUT COMPLIC 01/17/2017 DIMPLE NOVOA MD Ot E78. 5 HYPERLIPIDEMIA, UNSPECIFIED 01/17/2017 DIMPLE NOVOA MD Ot I10 ESSENTIAL (PRIMARY) HYPERTENSION 01/17/2017 DIMPLE NOVOA MD Ot I25. 10 ATHSCL HEART DISEASE OF [place] CORONARY 01/17/2017 DIMPLE NOVOA MD Ot I25. 84 CORONARY ATHEROSCLEROSIS DUE TO [place]IF[place] 01/17/2017 DIMPLE NOVOA MD Ot I49. 5 SICK SINUS SYNDROME 01/17/2017 DIMPLE NOVOA MD Ot R94. 39 ABNORMAL RESULT OF OTHER CARDIOVASCULAR 01/17/2017 DIMPLE NOVOA MD Ot T82.855A STENOSIS OF CORONARY ARTERY STENT, INITI 01/17/2017 DIMPLE NOVOA MD Ot Z79. 4 CHILD CENTER ASSISTANT (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 01/17/2017 DIMPLE NOVOA MD Ot Z79.899 OTHER PRISON (CURRENT) DRUG THERAPY 01/17/2017 DIMPLE NOVOA MD [...] Ot I10 ESSENTIAL (PRIMARY) HYPERTENSION 01/28/2017 DIMPLE ONVOA MD Ot I25. 10 ATHSCL HEART DISEASE OF [place] CORONARY 01/28/2017 DIMPLE NOVOA MD Ot I25. 84 CORONARY ATHEROSCLEROSIS DUE TO [place]IF[place] 01/28/2017 DIMPLE NOVOA MD Ot I49. 5 SICK SINUS SYNDROME 01/28/2017 DIMPLE NOVOA MD Ot R94. 39 ABNORMAL RESULT OF OTHER CARDIOVASCULAR 01/28/2017 DIMPLE NOVOA MD Ot T82.855A STENOSIS OF CORONARY ARTERY STENT, INITI 01/28/2017 DIMPLE NOVOA MD, Ot Z79. 4 CHILD CENTER ASSISTANT (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 01/28/2017 DIMPLE NOVOA MD, Ot Z79.899 OTHER CHILD CENTER ASSISTANT (CURRENT) DRUG THERAPY 01/28/2017 DIMPLE NOVOA MD, Ot Z95. 0 PRESENCE OF CARDIAC PACEMAKER 01/29/2017 GRECIA DIXON Ot E11.9 TYPE 2 DIABETES MELLITUS WITHOUT COMPLIC 01/29/2017 GRECIA DIXON Ot I10 ESSENTIAL (PRIMARY) HYPERTENSION 01/29/2017 GRECIA DIXON Ot I25.10 ATHSCL HEART DISEASE OF [place] CORONARY 01/29/2017 GRECIA DIXON Ot I65.23 OCCLUSION AND STENOSIS OF [place]ILATERAL [place] 03/13/2017 DIMPLE NOVOA MD Ot E11. 9 TYPE 2 DIABETES MELLITUS WITHOUT COMPLIC 03/13/2017 DIMPLE NOVOA MD, Ot E78. 5 HYPERLIPIDEMIA, UNSPECIFIED 03/13/2017 DIMPLE NOVOA MD Ot I10 ESSENTIAL (PRIMARY) HYPERTENSION 03/13/2017 DIMPLE NOVOA MD, Ot I25. 10 ATHSCL HEART DISEASE OF [place] CORONARY 03/13/2017 DIMPLE NOVOA MD, Ot I25. 84 CORONARY ATHEROSCLEROSIS DUE TO [place]IF[place] 03/13/2017 DIMPLE NOVOA MD, Ot I49. 5 SICK SINUS SYNDROME 03/13/2017 DIMPLE NOVOA MD, Ot R94. 39 ABNORMAL RESULT OF OTHER CARDIOVASCULAR 03/13/2017 DIMPLE NOVOA MD, Ot T82.855A STENOSIS OF CORONARY ARTERY STENT, INITI 03/13/2017 DIMPLE NOVOA MD, Ot Z79. 4 CHILD CENTER ASSISTANT (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 03/13/2017 DIMPLE NOVOA MD, Ot Z79.899 OTHER PRISON (CURRENT) DRUG THERAPY 03/13/2017 DIMPLE NOVOA MD, Ot Z95. 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 03/13/2017 ANTHONY GARZA Ot E11.43 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 03/13/2017 GREG ANTHONY Bender Ot E78.5 HYPERLIPIDEMIA, UNSPECIFIED 03/13/2017 GREG ANTHONY Bender Ot 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 KDNY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 03/13/2017 ANTHONY GARZA Ot I25.10 ATHSCL HEART DISEASE OF [place] CORONARY 03/13/2017 GREGANTHONY Ot I50.9 HEART FAILURE, UNSPECIFIED 03/13/2017 GREGANTHONY Ot K21.9 GASTRO-ESOPHAGEAL REFLUX DISEASE WITHOUT 03/13/2017 GREGANTHONY SAMSON Ot N18.3 CHRONIC KIDNEY DISEASE, STAGE 3 (MODERAT 03/13/2017 GREGANTHONY Ot Z08 ENCNTR FOR FOLLOW-UP EXAM AFTER TRTMT FO 03/13/2017 ANTHONY GARZA Ot Z79.02 PRISON (CURRENT) USE OF ANTITHROMBOTI 03/13/2017 ANTHONY GARZA Ot Z79.4 CHILD CENTER ASSISTANT (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 03/13/2017 ANTHONY GARZA Ot Z79.899 OTHER CHILD CENTER ASSISTANT (CURRENT) DRUG THERAPY 03/13/2017 GREGANTHONY Ot Z85.3 [...] Ot I25. 10 ATHSCL HEART DISEASE OF [place] CORONARY 03/14/2017 DIMPLE NOVOA MD, Ot I25. 84 CORONARY ATHEROSCLEROSIS DUE TO [place] 03/14/2017 DIMPLE NOVOA MD, Ot I49. 5 SICK SINUS SYNDROME 03/14/2017 DIMPLE NOVOA MD Ot R94. 39 ABNORMAL RESULT OF OTHER CARDIOVASCULAR 03/14/2017 DIMPLE NOVOA MD, Ot T82.855A STENOSIS OF CORONARY ARTERY STENT, INITI 03/14/2017 DIMPLE NOVOA MD Ot Z79. 4 PRISON (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 03/14/2017 DIMPLE NOVOA MD, Ot Z79.899 OTHER CHILD CENTER ASSISTANT (CURRENT) DRUG THERAPY 03/14/2017 DIMPLE NOVOA MD Ot Z95. 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 04/03/2017 ANTHONY GARZA N Ot E11.43 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 04/03/2017 ANTHONY GARZA N Ot E78.5 HYPERLIPIDEMIA, UNSPECIFIED 04/03/2017 ANTHONY GARZA Ot 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 [place]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 04/03/2017 ANTHONY GARZA Ot I25.10 ATHSCL HEART DISEASE OF [place] CORONARY 04/03/2017 ANTHONY GARZA Ot I50.9 HEART FAILURE, UNSPECIFIED 04/03/2017 ANTHONY GARZA Ot K21.9 GASTRO-ESOPHAGEAL REFLUX DISEASE WITHOUT 04/03/2017 ANTHONY GARZA Ot N18.3 CHRONIC KIDNEY DISEASE, STAGE 3 (MODERAT 04/03/2017 ANTHONY GARZA Ot Z08 ENCNTR FOR FOLLOW-UP EXAM AFTER TRTMT FO 04/03/2017 ANTHONY GARZA Ot Z79.02 PRISON (CURRENT) USE OF ANTITHROMBOTI 04/03/2017 ANTHONY GARZA Ot Z79.4 PRISON (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 04/03/2017 ANTHONY GARAZ Ot Z79.899 OTHER CHILD CENTER ASSISTANT (CURRENT) DRUG THERAPY 04/03/2017 ANTHONY GARZA Ot Z85.3 PERSONAL HISTORY OF MALIGNANT NEOPLASM O 04/03/2017 ANTHONY GARZA Ot Z95.5 PRESENCE OF CORONARY ANGIOPLASTY IMPLANT 04/03/2017 MARCELO ROJAS, JOE Sherman Ot E04.1 NONTOXIC SINGLE THYROID NODULE 04/23/2017 ANTHONY GARZA Ot E04.1 NONTOXIC SINGLE THYROID NODULE 04/23/2017 ANTHONY GARZA Ot 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 04/23/2017 ANTHONY GARZA N Ot E11.43 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 04/23/2017 ANTHONY GARZA N Ot E78.5 HYPERLIPIDEMIA, UNSPECIFIED 04/23/2017 GREG ALYCEBJORN Yulia Ot 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 [place]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 04/23/2017 GREGANTHONY Ot I25.10 ATHSCL HEART DISEASE OF [place] CORONARY 04/23/2017 GREG ANTHONY Bender Ot I50.9 HEART FAILURE, UNSPECIFIED 04/23/2017 GREG ANTHONY Bender Ot K21.9 GASTRO-ESOPHAGEAL REFLUX DISEASE WITHOUT 04/23/2017 GREG ANTHONY Bender Ot N18.3 CHRONIC KIDNEY DISEASE, STAGE 3 (MODERAT 04/23/2017 GREG ANTHONY Bender Ot Z08 ENCNTR FOR FOLLOW-UP EXAM AFTER TRTMT FO 04/23/2017 GREGANTHONY Ot Z79.02 PRISON (CURRENT) USE OF ANTITHROMBOTI 04/23/2017 ANTHONY GARZA Ot Z79.4 CHILD CENTER ASSISTANT (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 04/23/2017 ANTHONY GARZA Ot Z79.899 OTHER PRISON (CURRENT) DRUG THERAPY 04/23/2017 GREGANTHONY Ot Z85.3 [...] 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 08/06/2017 GREGANTHONY Ot E11.43 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 08/06/2017 GREGANTHONY Ot E78.5 HYPERLIPIDEMIA, UNSPECIFIED 08/06/2017 GREGANTHONY Ot 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 [place]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 08/06/2017 GREGANTHONY Ot I25.10 ATHSCL HEART DISEASE OF [place] CORONARY 08/06/2017 GREGANTHONY Ot I50.9 HEART FAILURE, UNSPECIFIED 08/06/2017 GREGANTHONY Ot K21.9 GASTRO-ESOPHAGEAL REFLUX DISEASE WITHOUT 08/06/2017 GREGANTHONY SAMSON Ot N18.3 CHRONIC KIDNEY DISEASE, STAGE 3 (MODERAT 08/06/2017 ANTHONY GARZA Ot Z08 ENCNTR FOR FOLLOW-UP EXAM AFTER TRTMT FO 08/06/2017 ANTHONY GARZA Ot Z79.02 PRISON (CURRENT) USE OF ANTITHROMBOTI 08/06/2017 ANTHONY GARZA Yulia Ot Z79.4 PRISON (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 08/06/2017 ANTHONY GARZA Yulia Ot Z79.899 OTHER CHILD CENTER ASSISTANT (CURRENT) DRUG THERAPY 08/06/2017 ANTHONY GARZA Yulia [...] Ot E78.00 PURE HYPERCHOLESTEROLEMIA, UNSPECIFIED 08/09/2017 DARYL PEIDRA INFORMATION SYSTEMS DIRECTOR Ot I11 .0 HYPERTENSIVE HEART DISEASE WITH HEART FA 08/09/2017 DARYL PIEDRA APRN Ot I25.10 ATHSCL HEART DISEASE OF [place] CORONARY 08/09/2017 DARYL PIEDRA APRN Ot I25 .2 OLD MYOCARDIAL INFARCTION 08/09/2017 DARYL PIEDRA INFORMATION SYSTEMS DIRECTOR Ot I50 .9 HEART FAILURE, UNSPECIFIED 08/09/2017 DARYL PIEDRA APRN Ot J10 .1 FLU DUE TO OTH IDENT INFLUENZA VIRUS W O 08/09/2017 DARYL PIEDRA APRN Ot K21 .9 GASTRO-ESOPHAGEAL REFLUX DISEASE WITHOUT 08/09/2017 DARYL PIEDRA APRN Ot R19 .7 DIARRHEA, UNSPECIFIED 08/09/2017 DARYL PIEDRA APRN Ot Z79 .4 PRISON (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 08/09/2017 DARYL PIEDRA APRN Ot Z82.49 FAMILY HX OF ISCHEM HEART DIS AND OTH DI 08/09/2017 DARYL PIEDRA APRN Ot Z85 .3 PERSONAL HISTORY OF MALIGNANT NEOPLASM O 08/09/2017 DARYL PIEDRA APRN Ot Z86.73 PRSNL HX OF TIA (TIA), AND CEREB INFRC W 08/09/2017 DARYL IPEDRA APRN Ot Z90.710 ACQUIRED ABSENCE OF BOTH [...] APRN Ot I25.10 ATHSCL HEART DISEASE OF [place] CORONARY 08/11/2017 DARYL PIEDRA APRN Ot I25 .2 OLD MYOCARDIAL INFARCTION 08/11/2017 DARYL PIEDRA APRN Ot I50 .9 HEART FAILURE, UNSPECIFIED 08/11/2017 DARYL PIEDRA APRN Ot J10 .1 FLU DUE TO [facility] IDENT INFLUENZA VIRUS W O 08/11/2017 DARYL PIEDRA APRN Ot K21 .9 GASTRO-ESOPHAGEAL REFLUX DISEASE WITHOUT 08/11/2017 DARYL PIEDRA APRN Ot R19 .7 DIARRHEA, UNSPECIFIED 08/11/2017 DARYL PIEDRA APRN Ot Z79 .4 PRISON (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 08/11/2017 DARYL PIEDRA APRN Ot Z82.49 FAMILY HX OF ISCHEM HEART DIS AND OTH DI 08/11/2017 DARYL PIEDRA APRN Ot Z85 .3 PERSONAL HISTORY OF MALIGNANT NEOPLASM O 08/11/2017 DARYL PIEDRA APRN Ot Z86.73 PRSNL HX OF TIA (TIA), AND CEREB INFRC W 08/11/2017 DARYL PIEDRA APRN Ot Z90.710 ACQUIRED ABSENCE OF BOTH CERVIX AND UTER 08/11/2017 DARYL PIEDRA INFORMATION SYSTEMS DIRECTOR Ot Z95 .0 PRESENCE OF CARDIAC PACEMAKER 08/11/2017 DARYL PIEDRA INFORMATION SYSTEMS DIRECTOR Ot Z95 .5 PRESENCE OF CORONARY ANGIOPLASTY IMPLANT 09/11/2017 DENIS WEAVER UNDERWRITING ASSISTANT-C Ot E11.9 TYPE 2 DIABETES MELLITUS WITHOUT COMPLIC 09/11/2017 DENIS WEAVER UNDERWRITING ASSISTANT-C Ot E55.9 VITAMIN D DEFICIENCY, UNSPECIFIED 09/11/2017 DENIS WEAVER UNDERWRITING ASSISTANT-C Ot E78.5 HYPERLIPIDEMIA, UNSPECIFIED 09/11/2017 DENIS WEAVRE UNDERWRITING ASSISTANT-C Ot E87.2 ACIDOSIS 09/11/2017 DENIS WEAVER UNDERWRITING ASSISTANT-C Ot I12.9 HYPERTENSIVE CHRONIC KIDNEY DISEASE W ST 09/11/2017 DENIS EWAVER [employer] UNDERWRITING ASSISTANT-C Ot I25.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 09/11/2017 DENIS WEAVER UNDERWRITING ASSISTANT-C Ot K21.9 GASTRO-ESOPHAGEAL REFLUX DISEASE WITHOUT 09/11/2017 DENIS WEAVER UNDERWRITING ASSISTANT-C Ot N18.3 CHRONIC KIDNEY DISEASE, STAGE 3 (MODERAT 09/24/2017 DIMPLE NOVOA MD Ot E11. 40 TYPE 2 DIABETES MELLITUS WITH DIABETIC N 09/24/2017 DIMPLE NOVOA MD Ot E11.621 TYPE 2 DIABETES MELLITUS WITH FOOT ULCER 09/24/2017 DIMPLE NOVOA MD Ot E78. 5 HYPERLIPIDEMIA, UNSPECIFIED 09/24/2017 DIMPLE NOVOA MD Ot I25. 10 ATHSCL HEART DISEASE OF [place] CORONARY 09/24/2017 DIMPLE NOVOA MD Ot I48. [...] 09/24/2017 DIMPLE NOVOA MD Ot Z79. 4 CHILD CENTER ASSISTANT (CURRENT) USE OF INSULIN 09/24/2017 DIMPLE NOVOA [...] Ot I25. 10 ATHSCL HEART DISEASE OF [place] CORONARY 09/28/2017 DIMPLE NOVOA MD Ot I48. [...] 09/28/2017 DIMPLE NOVOA MD Ot Z79. 4 PRISON (CURRENT) USE OF INSULIN 09/28/2017 DIMPLE NOVOA [...] OTH DRUG/MEDS/BIOL SUB 10/06/2017 MEG DENIS [employer] UNDERWRITING ASSISTANT-C Ot E11.9 TYPE 2 DIABETES MELLITUS WITHOUT COMPLIC 10/06/2017 DENIS WEAVER [employer] UNDERWRITING ASSISTANT-C Ot E55.9 VITAMIN D DEFICIENCY, UNSPECIFIED 10/06/2017 DENIS WEAVER [employer] UNDERWRITING ASSISTANT-C Ot E78.5 HYPERLIPIDEMIA, UNSPECIFIED 10/06/2017 EDNIS WEAVER [employer] UNDERWRITING ASSISTANT-C Ot E87.2 ACIDOSIS 10/06/2017 DENIS WEAVER [employer] UNDERWRITING ASSISTANT-C Ot I12.9 HYPERTENSIVE CHRONIC KIDNEY DISEASE W ST 10/06/2017 DENIS WEAVER [employer] UNDERWRITING ASSISTANT-C Ot I25.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 40 TYPE 2 DIABETES MELLITUS WITH DIABETIC N 10/28/2017 DIMPLE NOVOA MD Ot E11.621 TYPE 2 DIABETES MELLITUS WITH FOOT ULCER 10/28/2017 DIMPLE NOVOA MD Ot E78. 5 HYPERLIPIDEMIA, UNSPECIFIED 10/28/2017 DIMPLE NOVOA MD Ot I25. 10 ATHSCL HEART DISEASE OF [place] CORONARY 10/28/2017 DIMPLE NOVOA MD Ot I48. [...] 10/28/2017 DIMPLE NOVOA MD Ot Z79. 4 PRISON (CURRENT) USE OF INSULIN 10/28/2017 DIMPLE NOVOA [...] TO OTH DRUG/MEDS/BIOL SUB 12/22/2017 DENIS WEAVER UNDERWRITING ASSISTANT-C Ot E11.9 TYPE 2 DIABETES MELLITUS WITHOUT COMPLIC 12/22/2017 DENIS WEAVER UNDERWRITING ASSISTANT-C Ot E55.9 VITAMIN D DEFICIENCY, UNSPECIFIED 12/22/2017 JAYJAY WEAVERA [employer]Kit UNDERWRITING ASSISTANT-C Ot E78.5 HYPERLIPIDEMIA, UNSPECIFIED 12/22/2017 DENIS WEAVER UNDERWRITING ASSISTANT-C Ot E87.2 ACIDOSIS 12/22/2017 DENIS WEAVER UNDERWRITING ASSISTANT-C Ot I12.9 HYPERTENSIVE CHRONIC KIDNEY DISEASE W ST 12/22/2017 DENIS WEAVER UNDERWRITING ASSISTANT-C Ot I25.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 12/22/2017 DENIS WEAVER [employer] UNDERWRITING ASSISTANT-C Ot K21.9 GASTRO-ESOPHAGEAL REFLUX DISEASE WITHOUT 12/22/2017 DENIS WEAVER [employer]Kit UNDERWRITING ASSISTANT-C Ot N18.3 CHRONIC KIDNEY DISEASE, STAGE 3 (MODERAT 12/23/2017 JOE ROBERTSON MD Ot E11.5 1 TYPE 2 DIABETES W DIABETIC PERIPHERAL AN 12/23/2017 JOE ROBERTSON MD Ot E78.5 HYPERLIPIDEMIA, UNSPECIFIED 12/23/2017 JOE ROBERTSON MD Ot E87.6 HYPOKALEMIA 12/23/2017 JOE ROBERTSON MD Ot I12.9 HYPERTENSIVE CHRONIC KIDNEY DISEASE W ST 12/23/2017 JOE ROBERTSON MD Ot I25.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 12/23/2017 JOE ROBERTSON MD Ot I25.2 [...] 12/23/2017 JOE ROBERTSON MD Ot Z79.0 1 PRISON (CURRENT) USE OF ANTICOAGULANT 12/23/2017 JOE ROBERTSON [...] Ot I25.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 12/23/2017 JOE ROBERTSON MD Ot I25.2 [...] 12/23/2017 JOE ROBERTSON MD Ot Z79.0 1 CHILD CENTER ASSISTANT (CURRENT) USE OF ANTICOAGULANT 12/23/2017 JOE ROBERTSON [...] MD Ot I25.10 ATHSCL HEART DISEASE OF [place] CORONARY 02/05/2018 PRISCILLA HAGEN MD Ot N18.3 CHRONIC KIDNEY DISEASE, STAGE 3 (MODERAT 02/05/2018 PRISCILLA HAGEN MD Ot N39.0 URINARY TRACT INFECTION, SITE NOT SPECIF 02/05/2018 PRISCILLA HAGEN MD Ot R42 DIZZINESS AND GIDDINESS 02/05/2018 PRISCILLA HAGEN MD Ot Z79.4 CHILD CENTER ASSISTANT (CURRENT) USE OF INSULIN 02/05/2018 PRISCILLA HAGEN [...] MD Ot I25.10 ATHSCL HEART DISEASE OF [place] CORONARY 02/05/2018 PRISCILLA HAGEN MD, Ot N18.3 CHRONIC KIDNEY DISEASE, STAGE 3 (MODERAT 02/05/2018 PRISCILLA HAGEN MD Ot N39.0 URINARY TRACT INFECTION, SITE NOT SPECIF 02/05/2018 PRISCILLA HAGEN MD Ot R42 DIZZINESS AND GIDDINESS 02/05/2018 PRISCILLA HAGEN MD, Ot Z79.4 PRISON (CURRENT) USE OF INSULIN 02/05/2018 PRISCILLA HAGEN MD Ot Z95.0 PRESENCE OF CARDIAC PACEMAKER 03/11/2018 JOSÉ LUIS OBRIEN, JARROD Chase Ot M17.12 UNILATERAL PRIMARY OSTEOARTHRITIS, LEFT 03/16/2018 MARCELO ROJAS, JOE Sherman Ot E04.1 NONTOXIC SINGLE THYROID NODULE 03/16/2018 ANTHONY GARZA Ot E04.1 NONTOXIC SINGLE THYROID NODULE 03/16/2018 ANTHONY GARZA Ot 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 03/16/2018 ANTHONY GARZA Ot E11.43 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 03/16/2018 ANTHONY GARZA Ot E78.5 HYPERLIPIDEMIA, UNSPECIFIED 03/16/2018 ANTHONY GARZA Ot 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 [place]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 03/16/2018 ANTHONY GARZA Ot I25.10 ATHSCL HEART DISEASE OF [place] CORONARY 03/16/2018 ANTHONY GARZA Ot I50.9 HEART FAILURE, UNSPECIFIED 03/16/2018 ANTHONY GARZA Ot K21.9 GASTRO-ESOPHAGEAL REFLUX DISEASE WITHOUT 03/16/2018 ANTHONY GARZA Ot N18.3 CHRONIC KIDNEY DISEASE, STAGE 3 (MODERAT 03/16/2018 ANTHONY GARZA Ot Z08 ENCNTR FOR FOLLOW-UP EXAM AFTER TRTMT FO 03/16/2018 ANTHONY GARZA Ot Z79.02 CHILD CENTER ASSISTANT (CURRENT) USE OF ANTITHROMBOTI 03/16/2018 ANTHONY GARZA Ot Z79.4 PRISON (CURRENT) USE OF INSULIN 03/16/2018 ANTHONY GARZA Ot Z79.899 OTHER CHILD CENTER ASSISTANT (CURRENT) DRUG THERAPY 03/16/2018 ANTHONY GARZA Ot Z85.3 PERSONAL HISTORY OF MALIGNANT NEOPLASM O 03/16/2018 ANTHONY GARZA Ot Z95.5 PRESENCE OF CORONARY ANGIOPLASTY IMPLANT 03/16/2018 MEG DENIS G. UNDERWRITING ASSISTANT-C Ot E11.9 TYPE 2 DIABETES MELLITUS WITHOUT COMPLIC 03/16/2018 MEG DENIS G. UNDERWRITING ASSISTANT-C Ot E55.9 VITAMIN D DEFICIENCY, UNSPECIFIED 03/16/2018 NEW DENIS G. UNDERWRITING ASSISTANT-C Ot E78.5 HYPERLIPIDEMIA, UNSPECIFIED 03/16/2018 MEG DENIS G. UNDERWRITING ASSISTANT-C Ot E87.2 ACIDOSIS 03/16/2018 MEG DENIS GKit UNDERWRITING ASSISTANT-C Ot I12.9 HYPERTENSIVE CHRONIC KIDNEY DISEASE W ST 03/16/2018 MEG DENIS [employer]Kit UNDERWRITING ASSISTANT-C Ot I25.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 03/16/2018 MEG DENIS G. UNDERWRITING ASSISTANT-C Ot K21.9 GASTRO-ESOPHAGEAL REFLUX DISEASE WITHOUT 03/16/2018 MEG DENIS G. 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 03/17/2018 ANTHONY GARZA Ot E11.43 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 03/17/2018 ANTHONY GARZA Ot E78.5 HYPERLIPIDEMIA, UNSPECIFIED 03/17/2018 ANTHONY GARZA Ot 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 [place]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 03/17/2018 ANTHONY GARZA Ot I25.10 ATHSCL HEART DISEASE OF [place] CORONARY 03/17/2018 ANTHONY GARZA Ot I50.9 HEART FAILURE, UNSPECIFIED 03/17/2018 GREGANTHONY Ot K21.9 GASTRO-ESOPHAGEAL REFLUX DISEASE WITHOUT 03/17/2018 ANTHONY GARZA Ot N18.3 CHRONIC KIDNEY DISEASE, STAGE 3 (MODERAT 03/17/2018 GREGANTHONY Ot Z08 ENCNTR FOR FOLLOW-UP EXAM AFTER TRTMT FO 03/17/2018 GREG ANTHONY Bender Ot Z79.02 CHILD CENTER ASSISTANT (CURRENT) USE OF ANTITHROMBOTI 03/17/2018 GREGANTHONY Ot Z79.4 PRISON (CURRENT) USE OF INSULIN 03/17/2018 GREGANTHONY Ot Z79.899 OTHER PRISON (CURRENT) DRUG THERAPY 03/17/2018 GREGANTHONY Ot Z85.3 PERSONAL HISTORY OF MALIGNANT NEOPLASM O 03/17/2018 ANTHONY GARZA Ot Z95.5 PRESENCE OF CORONARY ANGIOPLASTY IMPLANT 04/05/2018 DENIS WEAVER UNDERWRITING ASSISTANT-C Ot E11.9 TYPE 2 DIABETES MELLITUS WITHOUT COMPLIC 04/05/2018 DENIS WEAVER UNDERWRITING ASSISTANT-C Ot E55.9 VITAMIN D DEFICIENCY, UNSPECIFIED 04/05/2018 DENIS WEAVER UNDERWRITING ASSISTANT-C Ot E78.5 HYPERLIPIDEMIA, UNSPECIFIED 04/05/2018 MEG DENIS G. 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 04/07/2018 ANTHONY GARZA Ot E11.43 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 04/07/2018 ANTHONY GARZA Ot E78.5 HYPERLIPIDEMIA, UNSPECIFIED 04/07/2018 ANTHONY GARZA Ot 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 [place]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 04/07/2018 ANTHONY GARZA Ot I25.10 ATHSCL HEART DISEASE OF [place] CORONARY 04/07/2018 ANTHONY GARZA Ot I50.9 HEART FAILURE, UNSPECIFIED 04/07/2018 ANTHONY GARZA Ot K21.9 GASTRO-ESOPHAGEAL REFLUX DISEASE WITHOUT 04/07/2018 ANTHONY GARZA Ot N18.3 CHRONIC KIDNEY DISEASE, STAGE 3 (MODERAT 04/07/2018 ANTHONY GARZA Ot Z08 ENCNTR FOR FOLLOW-UP EXAM AFTER TRTMT FO 04/07/2018 ANTHONY GARZA Ot Z79.02 PRISON (CURRENT) USE OF ANTITHROMBOTI 04/07/2018 ANTHONY GARZA Ot Z79.4 CHILD CENTER ASSISTANT (CURRENT) USE OF INSULIN 04/07/2018 ANTHONY GARZA Ot Z79.899 OTHER PRISON (CURRENT) DRUG THERAPY 04/07/2018 ANTHONY GARZA Ot Z85.3 PERSONAL HISTORY OF MALIGNANT NEOPLASM O 04/07/2018 ANTHONY GARZA Ot Z95.5 PRESENCE OF CORONARY ANGIOPLASTY IMPLANT 04/27/2018 NAOMY KING GROUP RESERVATIONS COORDINATOR Ot Z12.31 ENCNTR SCREEN MAMMOGRAM FOR MALIGNANT NE 04/29/2018 NAOMY KINGP Ot 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 04/29/2018 NAOMY KING GROUP RESERVATIONS COORDINATOR Ot Z12.31 ENCNTR SCREEN MAMMOGRAM FOR MALIGNANT NE 04/29/2018 ANTHONY GARZA Ot E04.1 NONTOXIC SINGLE THYROID NODULE 04/29/2018 ANTHONY GARZA Ot 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 04/29/2018 ANTHONY GARZA Ot E11.43 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 04/29/2018 ANTHONY GARZA Ot E78.5 HYPERLIPIDEMIA, UNSPECIFIED 04/29/2018 ANTHONY GARZA Ot 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 [place]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 04/29/2018 ANTHONY GARZA Ot I25.10 ATHSCL HEART DISEASE OF [place] CORONARY 04/29/2018 ANTHONY GARZA Ot I50.9 HEART FAILURE, UNSPECIFIED 04/29/2018 ANTHONY GARZA Ot K21.9 GASTRO-ESOPHAGEAL REFLUX DISEASE WITHOUT 04/29/2018 GREGANTHONY SAMSON Yulia Ot N18.3 CHRONIC KIDNEY DISEASE, STAGE 3 (MODERAT 04/29/2018 ANTHONY GARZA Yulia Ot Z08 ENCNTR FOR FOLLOW-UP EXAM AFTER TRTMT FO 04/29/2018 ANTHONY GARZA Yulia Ot Z79.02 CHILD CENTER ASSISTANT (CURRENT) USE OF ANTITHROMBOTI 04/29/2018 ANTHONY GARZA Yulia Ot Z79.4 PRISON (CURRENT) USE OF INSULIN 04/29/2018 ANTHONY GARZA Yulia Ot Z79.899 OTHER CHILD CENTER ASSISTANT (CURRENT) DRUG THERAPY 04/29/2018 ANTHONY GARZA Yulia Ot Z85.3 PERSONAL HISTORY OF MALIGNANT NEOPLASM O 04/29/2018 GREGANTHONY SAMSON Yulia Ot Z95.5 PRESENCE OF CORONARY ANGIOPLASTY IMPLANT 05/18/2018 NAOMY KING GROUP RESERVATIONS COORDINATOR Ot 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 10 ATHSCL HEART DISEASE OF [place] CORONARY 06/22/2018 DIMPLE NOVOA MD, Ot I48. [...] 06/22/2018 DIMPLE NOVOA MD, Ot Z79. 82 CHILD CENTER ASSISTANT (CURRENT) USE OF ASPIRIN 06/22/2018 DIMPLE NOVOA MD, Ot Z79.899 OTHER CHILD CENTER ASSISTANT (CURRENT) DRUG THERAPY 06/22/2018 DIMPLE NOVOA MD, Ot Z85. 3 PERSONAL HISTORY OF MALIGNANT NEOPLASM O 06/22/2018 DIMPLE NOVOA MD Ot Z95. 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 10 ATHSCL HEART DISEASE OF [place] CORONARY 07/09/2018 DIMPLE NOVOA MD Ot I48. [...] 07/09/2018 DIMPLE NOVOA MD Ot Z79. 82 CHILD CENTER ASSISTANT (CURRENT) USE OF ASPIRIN 07/09/2018 DIMPLE NOVOA MD Ot Z79.899 OTHER CHILD CENTER ASSISTANT (CURRENT) DRUG THERAPY 07/09/2018 DIMPLE NOVOA MD Ot Z85. 3 PERSONAL HISTORY OF MALIGNANT NEOPLASM O 07/09/2018 DIMPLE NOVOA MD Ot Z95. 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 07/29/2018 SKIP KERN APRN Ot E78.5 HYPERLIPIDEMIA, UNSPECIFIED 07/29/2018 SKIP KERN APRN Ot E87.2 ACIDOSIS 07/29/2018 SKIP KERN APRN Ot E87.3 ALKALOSIS 07/29/2018 SKIP KERN APRN Ot I12.9 HYPERTENSIVE CHRONIC KIDNEY DISEASE W ST 07/29/2018 SKIP KERN APRN Ot I25.10 ATHSCL HEART DISEASE OF [place] CORONARY 07/29/2018 SKIP KERN INFORMATION SYSTEMS DIRECTOR Ot K21.9 GASTRO-ESOPHAGEAL REFLUX DISEASE WITHOUT 07/29/2018 SKIP KERN APRN Ot N18.3 CHRONIC KIDNEY DISEASE, STAGE 3 (MODERAT 07/29/2018 SKIP KERN INFORMATION SYSTEMS DIRECTOR Ot N25.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 9 TYPE 2 DIABETES MELLITUS WITHOUT COMPLIC 07/29/2018 DIMPLE NOVOA MD Ot E78. 5 HYPERLIPIDEMIA, UNSPECIFIED 07/29/2018 DIMPLE NOVOA MD Ot I12. 9 HYPERTENSIVE CHRONIC KIDNEY DISEASE W ST 07/29/2018 DIMPLE NOVOA MD Ot I25. 10 ATHSCL HEART DISEASE OF [place] CORONARY 07/29/2018 DIMPLE NOVOA MD Ot I48. [...] 07/29/2018 DIMPLE NOVOA MD, Ot Z79. 82 CHILD CENTER ASSISTANT (CURRENT) USE OF ASPIRIN 07/29/2018 DIMPLE NOVOA MD, Ot Z79.899 OTHER PRISON (CURRENT) DRUG THERAPY 07/29/2018 DIMPLE NOVOA MD Ot Z85. 3 PERSONAL HISTORY OF MALIGNANT NEOPLASM O 07/29/2018 DIMPLE NOVOA MD Ot Z95. 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 10/28/2018 GREG ALYCEBJORN Yulia Ot E11.43 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 10/28/2018 ANTHONY GARZA Yulia Ot E78.5 HYPERLIPIDEMIA, UNSPECIFIED 10/28/2018 GREG ALYCEBJORN Yulia Ot 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 [place]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 10/28/2018 ANTHONY GARZA Yulia Ot I25.10 ATHSCL HEART DISEASE OF [place] CORONARY 10/28/2018 ANTHONY GARZA Yulia Ot I50.9 HEART FAILURE, UNSPECIFIED 10/28/2018 GREG ALYCEBJORN Yulia Ot K21.9 GASTRO-ESOPHAGEAL REFLUX DISEASE WITHOUT 10/28/2018 ANTHONY GARZA Yulia Ot N18.3 CHRONIC KIDNEY DISEASE, STAGE 3 (MODERAT 10/28/2018 ANTHONY GARZA Yulia Ot Z08 ENCNTR FOR FOLLOW-UP EXAM AFTER TRTMT FO 10/28/2018 ANTHONY GARZA Yulia Ot Z79.02 PRISON (CURRENT) USE OF ANTITHROMBOTI 10/28/2018 GREGALYCEBJORN Yulia Ot Z79.4 CHILD CENTER ASSISTANT (CURRENT) USE OF INSULIN 10/28/2018 ANTHONY GARZA Yulia Ot Z79.899 OTHER PRISON (CURRENT) DRUG THERAPY 10/28/2018 ANTHONY GARZA Yulia Ot Z85.3 PERSONAL HISTORY OF MALIGNANT NEOPLASM O 10/28/2018 GREGALYCEBJORN Yulia Ot Z95.5 PRESENCE OF CORONARY ANGIOPLASTY IMPLANT 10/28/2018 MARCELO ROJAS, JOE Sherman Ot L97.5 21 NON-PRS CHRONIC ULCER OTH PRT L FOOT ZIMMERMAN 10/28/2018 DESTINEE VANG MD Ot I25.10 ATHSCL HEART DISEASE OF [place] CORONARY 12/01/2018 SKIP KERN INFORMATION SYSTEMS DIRECTOR Ot R26.81 UNSTEADINESS ON FEET 12/01/2018 SKIP KERN INFORMATION SYSTEMS DIRECTOR Ot R53.1 WEAKNESS 12/08/2018 JOE ROBERTSON MD Ot L97.5 21 NON-PRS CHRONIC ULCER OTH PRT L FOOT ZIMMERMAN 12/08/2018 CIERA ROJAS, DESTINEE Soliman Ot I25.10 ATHSCL HEART DISEASE OF [place] CORONARY 12/08/2018 MARCELO ROJAS, JOE Sherman Ot E04.1 NONTOXIC SINGLE THYROID NODULE 12/08/2018 GREGANTHONY Ot E04.1 NONTOXIC SINGLE THYROID NODULE 12/08/2018 GREG ALYCEBJORN Yulia Ot 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 12/08/2018 GREGANTHONY Ot E11.43 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 12/08/2018 GREGANTHONY Ot E78.5 HYPERLIPIDEMIA, UNSPECIFIED 12/08/2018 GREGALYCEBJORN Yulia Ot 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 [place]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 12/08/2018 GREGANTHONY Ot I25.10 ATHSCL HEART DISEASE OF [place] CORONARY 12/08/2018 GREGALYCEBJORN Yulia Ot I50.9 HEART FAILURE, UNSPECIFIED 12/08/2018 GREGALYCEBJORN Yulia Ot K21.9 GASTRO-ESOPHAGEAL REFLUX DISEASE WITHOUT 12/08/2018 GREGANTHONY Ot N18.3 CHRONIC KIDNEY DISEASE, STAGE 3 (MODERAT 12/08/2018 GREGALYCEBJORN Yulia Ot Z08 ENCNTR FOR FOLLOW-UP EXAM AFTER TRTMT FO 12/08/2018 ANTHONY GARZA Ot Z79.02 CHILD CENTER ASSISTANT (CURRENT) USE OF ANTITHROMBOTI 12/08/2018 GREGANTHONY Ot Z79.4 CHILD CENTER ASSISTANT (CURRENT) USE OF INSULIN 12/08/2018 GREGALYCEBJORN Yulia Ot Z79.899 OTHER CHILD CENTER ASSISTANT (CURRENT) DRUG THERAPY 12/08/2018 ANTHONY GARZA Ot Z85.3 PERSONAL HISTORY OF MALIGNANT NEOPLASM O 12/08/2018 ANTHONY GARZA Ot Z95.5 PRESENCE OF CORONARY ANGIOPLASTY IMPLANT 12/08/2018 SKIP KERN INFORMATION SYSTEMS DIRECTOR Ot R26.81 UNSTEADINESS ON FEET 12/08/2018 SKIP KERN INFORMATION SYSTEMS DIRECTOR Ot R53.1 WEAKNESS 12/09/2018 SKIP KERN INFORMATION SYSTEMS DIRECTOR Ot R26.81 UNSTEADINESS ON FEET 12/09/2018 SKIP KERN INFORMATION SYSTEMS DIRECTOR Ot R53.1 WEAKNESS 12/10/2018 MARCELO ROJAS, JOE Sherman Ot R30.9 PAINFUL MICTURITION, UNSPECIFIED 12/17/2018 SKIP KERN APRN Ot R26.81 UNSTEADINESS ON FEET 12/17/2018 SKIP KERN APRN Ot R53.1 WEAKNESS 12/23/2018 JOE ROBERTSON MD Ot L97.5 21 NON-PRS CHRONIC ULCER OTH PRT L FOOT ZIMMERMAN 12/23/2018 CIERA ROJAS, DESTINEE Soliman Ot I25.10 ATHSCL HEART DISEASE OF [place] CORONARY 12/23/2018 JOE ROBERTSON MD Ot R30.9 PAINFUL MICTURITION, UNSPECIFIED 12/27/2018 JOE ROBERTSON MD Ot L97.5 21 NON-PRS CHRONIC ULCER OTH PRT L FOOT ZIMMERMAN 12/27/2018 CIERA ROJAS, DESTINEE Soliman Ot I25.10 ATHSCL HEART DISEASE OF [place] CORONARY 12/27/2018 JOE ROBERTSON MD Ot E04.1 NONTOXIC SINGLE THYROID NODULE 12/27/2018 ANTHONY GARZA Ot E04.1 NONTOXIC SINGLE THYROID NODULE 12/27/2018 ANTHONY GARZA Ot 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 12/27/2018 ANTHONY GARZA Ot E11.43 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 12/27/2018 ANTHONY GARZA Ot E78.5 HYPERLIPIDEMIA, UNSPECIFIED 12/27/2018 ANTHONY GARZA Ot 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 [place]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 12/27/2018 ANTHONY GARZA Ot I25.10 ATHSCL HEART DISEASE OF [place] CORONARY 12/27/2018 ANTHONY GARZA Ot I50.9 HEART FAILURE, UNSPECIFIED 12/27/2018 ANTHONY GARZA Ot K21.9 GASTRO-ESOPHAGEAL REFLUX DISEASE WITHOUT 12/27/2018 ANTHONY GARZA Ot N18.3 CHRONIC KIDNEY DISEASE, STAGE 3 (MODERAT 12/27/2018 ANTHONY GARZA Ot Z08 ENCNTR FOR FOLLOW-UP EXAM AFTER TRTMT FO 12/27/2018 ANTHONY GARZA Ot Z79.02 PRISON (CURRENT) USE OF ANTITHROMBOTI 12/27/2018 ANTHONY GARZA Ot Z79.4 PRISON (CURRENT) USE OF INSULIN 12/27/2018 ANTHONY GARZA Ot Z79.899 OTHER PRISON (CURRENT) DRUG THERAPY 12/27/2018 ANTHONY GARZA Ot [...] Soliman Ot I25.10 ATHSCL HEART DISEASE OF [place] CORONARY 12/31/2018 JOE ROBERTSON MD Ot E04.1 NONTOXIC SINGLE THYROID NODULE 12/31/2018 ANTHONY GARZA Ot E04.1 NONTOXIC SINGLE THYROID NODULE 12/31/2018 ANTHONY GARZA Ot 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 12/31/2018 ANTHONY GARZA Ot E11.43 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 12/31/2018 ANTHONY GARZA Ot E78.5 HYPERLIPIDEMIA, UNSPECIFIED 12/31/2018 ANTHONY GARZA Ot 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 [place]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 12/31/2018 ANTHONY GARZA Ot I25.10 ATHSCL HEART DISEASE OF [place] CORONARY 12/31/2018 ANTHONY GARZA Ot I50.9 HEART FAILURE, UNSPECIFIED 12/31/2018 ANTHONY GARZA Ot K21.9 GASTRO-ESOPHAGEAL REFLUX DISEASE WITHOUT 12/31/2018 ANTHONY GARZA Ot N18.3 CHRONIC KIDNEY DISEASE, STAGE 3 (MODERAT 12/31/2018 ANTHONY GARZA Ot Z08 ENCNTR FOR FOLLOW-UP EXAM AFTER TRTMT FO 12/31/2018 ANTHONY GARZA Ot Z79.02 CHILD CENTER ASSISTANT (CURRENT) USE OF ANTITHROMBOTI 12/31/2018 ANTHONY GARZA Ot Z79.4 CHILD CENTER ASSISTANT (CURRENT) USE OF INSULIN 12/31/2018 ANTHONY GARZA Ot Z79.899 OTHER CHILD CENTER ASSISTANT (CURRENT) DRUG THERAPY 12/31/2018 ALYCE GARZAAN N [...] Ot I25. 10 ATHSCL HEART DISEASE OF [place] CORONARY 12/31/2018 DIMPLE NOVOA MD Ot I49. 5 SICK SINUS SYNDROME 12/31/2018 AMADEO BARRETT MD, Ot Z01.818 ENCOUNTER FOR OTHER PREPROCEDURAL EXAMIN 12/31/2018 AMADEO BARRETT MD Ot E11. 22 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 12/31/2018 AMADEO BARRETT MD Ot E11. 51 TYPE 2 DIABETES W DIABETIC PERIPHERAL AN 12/31/2018 AMADEO BARRETT MD Ot E66. 9 OBESITY, UNSPECIFIED 12/31/2018 AMADEO BARRETT MD, Ot I12. 9 HYPERTENSIVE CHRONIC KIDNEY DISEASE W ST 12/31/2018 AMADEO BARRETT MD, Ot I25. 10 ATHSCL HEART DISEASE OF [place] CORONARY 12/31/2018 AMADEO BARRETT MD Ot I73. 9 PERIPHERAL VASCULAR DISEASE, UNSPECIFIED 12/31/2018 AMADEO BARRETT MD Ot K44. 9 DIAPHRAGMATIC HERNIA WITHOUT OBSTRUCTION 12/31/2018 AMADEO BARRETT MD, Ot N18. 9 CHRONIC KIDNEY DISEASE, UNSPECIFIED 12/31/2018 AMADEO BARRETT MD Ot R13. 10 DYSPHAGIA, UNSPECIFIED 12/31/2018 AMADEO BARRETT MD Ot Z68. 33 BODY MASS INDEX (BMI) 33.0-33.9, ADULT 12/31/2018 AMADEO BARRETT MD Ot Z79. 02 CHILD CENTER ASSISTANT (CURRENT) USE OF ANTITHROMBOTI 12/31/2018 AMADEO BARRETT MD Ot Z79. 4 CHILD CENTER ASSISTANT (CURRENT) USE OF INSULIN 12/31/2018 AMADEO BARRETT MD Ot Z79. 82 CHILD CENTER ASSISTANT (CURRENT) USE OF ASPIRIN 12/31/2018 AMADEO BARRETT MD Ot Z79.899 OTHER CHILD CENTER ASSISTANT (CURRENT) DRUG THERAPY 12/31/2018 AMADEO BARRETT MD [...] Ot I25. 10 ATHSCL HEART DISEASE OF [place] CORONARY 01/02/2019 DIMPLE NOVOA MD Ot I49. 5 SICK SINUS SYNDROME 01/05/2019 AMADEO BARRETT MD Ot E11. 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 51 TYPE 2 DIABETES W DIABETIC PERIPHERAL AN 01/05/2019 AMADEO BARRETT MD Ot E66. 9 OBESITY, UNSPECIFIED 01/05/2019 AMADEO BARRETT MD Ot I12. 9 HYPERTENSIVE CHRONIC KIDNEY DISEASE W ST 01/05/2019 AMADEO BARRETT MD Ot I25. 10 ATHSCL HEART DISEASE OF [place] CORONARY 01/05/2019 AMADEO BARRETT MD Ot I73. 9 PERIPHERAL VASCULAR DISEASE, UNSPECIFIED 01/05/2019 AMADEO BARRETT MD Ot K44. 9 DIAPHRAGMATIC HERNIA WITHOUT OBSTRUCTION 01/05/2019 AMADEO BARRETT MD Ot N18. 9 CHRONIC KIDNEY DISEASE, UNSPECIFIED 01/05/2019 AMADEO BARRETT MD Ot R13. 10 DYSPHAGIA, UNSPECIFIED 01/05/2019 AMADEO BARRETT MD Ot Z68. 33 BODY MASS INDEX (BMI) 33.0-33.9, ADULT 01/05/2019 AMADEO BARRETT MD Ot Z79. 02 CHILD CENTER ASSISTANT (CURRENT) USE OF ANTITHROMBOTI 01/05/2019 AMADEO BARRETT MD Ot Z79. 4 CHILD CENTER ASSISTANT (CURRENT) USE OF INSULIN 01/05/2019 AMADEO BARRETT MD Ot Z79. 82 PRISON (CURRENT) USE OF ASPIRIN 01/05/2019 AMADEO BARRETT MD, Ot Z79.899 OTHER CHILD CENTER ASSISTANT (CURRENT) DRUG THERAPY 01/05/2019 NENA ROJAS, AMADEO [...] Ot I25. 10 ATHSCL HEART DISEASE OF [place] CORONARY 01/19/2019 DIMPLE NOVOA MD, Ot I49. 5 SICK SINUS SYNDROME 02/05/2019 ANALIA WARD MD, Ot A08. 4 VIRAL INTESTINAL INFECTION, UNSPECIFIED 02/05/2019 ANALIA WRAD MD Ot E11. 21 TYPE 2 DIABETES [...] Ot I25. 10 ATHSCL HEART DISEASE OF [place] CORONARY 02/05/2019 ANALIA WARD MD, Ot I25. [...] 02/05/2019 ANALIA WARD MD, Ot Z79. 02 PRISON (CURRENT) USE OF ANTITHROMBOTI 02/05/2019 ANALIA WARD MD, Ot Z79. 4 CHILD CENTER ASSISTANT (CURRENT) USE OF INSULIN 02/05/2019 ANALIA WARD [...] Ot I25. 10 ATHSCL HEART DISEASE OF [place] CORONARY 03/03/2019 ANALIA WARD MD, Ot I25. [...] 03/03/2019 ANALIA WARD MD Ot Z79. 01 CHILD CENTER ASSISTANT (CURRENT) USE OF ANTICOAGULANT 03/03/2019 ANALIA WARD MD Ot Z79. 4 PRISON (CURRENT) USE OF INSULIN 03/03/2019 ANALIA WARD [...] Ot I25. 10 ATHSCL HEART DISEASE OF [place] CORONARY 03/03/2019 ANALIA WARD MD, Ot I25. [...] 03/03/2019 ANALIA WARD MD, Ot Z79. 01 PRISON (CURRENT) USE OF ANTICOAGULANT 03/03/2019 ANALIA WARD MD, Ot Z79. 4 PRISON (CURRENT) USE OF INSULIN 03/03/2019 ANALIA WARD [...] Ot I25. 10 ATHSCL HEART DISEASE OF [place] CORONARY 03/04/2019 ANALIA WARD MD, Ot I25. [...] 00 ACUTE CYSTITIS WITHOUT HEMATURIA 03/04/2019 ANALIA WRAD MD, Ot R01. 1 CARDIAC MURMUR, UNSPECIFIED 03/04/2019 ANALIA WARD MD, Ot R65. 21 SEVERE SEPSIS WITH SEPTIC SHOCK 03/04/2019 ANALIA WARD MD, Ot Z79. 01 PRISON (CURRENT) USE OF ANTICOAGULANT 03/04/2019 ANALIA WARD MD, Ot Z79. 4 CHILD CENTER ASSISTANT (CURRENT) USE OF INSULIN 03/04/2019 ANALIA WARD [...] MD Ot I25.10 ATHSCL HEART DISEASE OF [place] CORONARY 03/11/2019 JOE ROBERTSON MD Ot R30.9 PAINFUL MICTURITION, UNSPECIFIED 03/11/2019 DIMPLE NOVOA MD Ot E78. 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 10 ATHSCL HEART DISEASE OF [place] CORONARY 03/11/2019 DIMPLE NOVOA MD Ot I49. 5 SICK SINUS SYNDROME 03/11/2019 AMADEO BARRETT MD Ot Z01.818 ENCOUNTER FOR OTHER PREPROCEDURAL EXAMIN 03/11/2019 JOE ROBERTSON MD Ot R05 COUGH 03/11/2019 JOE ROBERTSON MD Ot Z95.0 PRESENCE OF CARDIAC PACEMAKER 03/11/2019 LOGAN BOLIVAR INFORMATION SYSTEMS DIRECTOR Ot E86.0 DEHYDRATION 03/15/2019 LOGAN BOLIVAR INFORMATION SYSTEMS DIRECTOR Ot E86.0 DEHYDRATION 03/17/2019 ANTHONY GARZA [...] Ot I25. 10 ATHSCL HEART DISEASE OF [place] CORONARY 04/06/2019 CRIS WALDEN MD, Ot I25. 2 OLD MYOCARDIAL INFARCTION 04/06/2019 CRIS WLADEN MD, Ot I27. 20 PULMONARY HYPERTENSION, UNSPECIFIED [...] 04/06/2019 CRIS WALDEN MD Ot Z79. 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 04/07/2019 ANTHONY GARZA Ot E11.43 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 04/07/2019 ANTHONY GARZA Ot E78.5 HYPERLIPIDEMIA, UNSPECIFIED 04/07/2019 ANTHONY GARZA Ot 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 [place]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 04/07/2019 ANTHONY GARZA Ot I25.10 ATHSCL HEART DISEASE OF [place] CORONARY 04/07/2019 ANTHONY GARZA Ot K21.9 GASTRO-ESOPHAGEAL REFLUX DISEASE WITHOUT 04/07/2019 ANTHONY GARZA Ot N18.3 CHRONIC KIDNEY DISEASE, STAGE 3 (MODERAT 04/07/2019 ANTHONY GARZA Ot Z08 ENCNTR FOR FOLLOW-UP EXAM AFTER TRTMT FO 04/07/2019 ANTHONY GARZA Ot Z79.02 PRISON (CURRENT) USE OF ANTITHROMBOTI 04/07/2019 ANTHONY GARZA Ot Z79.4 CHILD CENTER ASSISTANT (CURRENT) USE OF INSULIN 04/07/2019 ANTHONY GARZA Ot Z79.899 OTHER PRISON (CURRENT) DRUG THERAPY 04/07/2019 ANTHONY GARZA Ot Z85.3 PERSONAL HISTORY OF MALIGNANT NEOPLASM O 04/07/2019 ANTHONY GARZA Ot Z95.5 PRESENCE OF CORONARY ANGIOPLASTY IMPLANT 05/03/2019 MARCELO ROJAS, JOE Sherman Ot L97.5 21 NON-PRS CHRONIC ULCER OTH PRT L FOOT ZIMMERMAN 05/03/2019 CIERA ROJAS, DESTINEE Soliman Ot I25.10 ATHSCL HEART DISEASE OF [place] CORONARY 05/03/2019 MARCELO ROJAS, JOE Sherman Ot E04.1 NONTOXIC SINGLE THYROID NODULE 05/03/2019 ANTHONY GARZA Ot E04.1 NONTOXIC SINGLE THYROID NODULE 05/03/2019 ANTHONY GARZA Ot 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 05/03/2019 ANTHONY GARZA Ot E11.43 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 05/03/2019 ANTHONY GARZA Ot E78.5 HYPERLIPIDEMIA, UNSPECIFIED 05/03/2019 ANTHONY GARZA Ot 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 [place]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 05/03/2019 ANTHONY GARZA Ot I25.10 ATHSCL HEART DISEASE OF [place] CORONARY 05/03/2019 ANTHONY GARZA Ot I50.9 HEART FAILURE, UNSPECIFIED 05/03/2019 ANTHONY GARZA Ot K21.9 GASTRO-ESOPHAGEAL REFLUX DISEASE WITHOUT 05/03/2019 ANTHONY GARZA Ot N18.3 CHRONIC KIDNEY DISEASE, STAGE 3 (MODERAT 05/03/2019 ANTHONY GARZA Ot Z08 ENCNTR FOR FOLLOW-UP EXAM AFTER TRTMT FO 05/03/2019 ANTHONY GARZA Ot Z79.02 PRISON (CURRENT) USE OF ANTITHROMBOTI 05/03/2019 ANTHONY GARZA Ot Z79.4 PRISON (CURRENT) USE OF INSULIN 05/03/2019 ANTHONY GARZA Ot Z79.899 OTHER CHILD CENTER ASSISTANT (CURRENT) DRUG THERAPY 05/03/2019 ANTHONY GARZA Ot [...] Ot I25. 10 ATHSCL HEART DISEASE OF [place] CORONARY 05/03/2019 DIMPLE NOVOA MD Ot I49. 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 05/03/2019 ANTHONY GARZA Ot E11.43 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 05/03/2019 ANTHONY GARZA Ot E78.5 HYPERLIPIDEMIA, UNSPECIFIED 05/03/2019 ANTHONY GARZA Ot 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 [place]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 05/03/2019 ANTHONY GARZA Ot I25.10 ATHSCL HEART DISEASE OF [place] CORONARY 05/03/2019 ANTHONY GARZA Ot K21.9 GASTRO-ESOPHAGEAL REFLUX DISEASE WITHOUT 05/03/2019 ANTHONY GARZA Ot N18.3 CHRONIC KIDNEY DISEASE, STAGE 3 (MODERAT 05/03/2019 ANTHONY GARZA Ot Z08 ENCNTR FOR FOLLOW-UP EXAM AFTER TRTMT FO 05/03/2019 ANTHONY GARZA Ot Z79.02 CHILD CENTER ASSISTANT (CURRENT) USE OF ANTITHROMBOTI 05/03/2019 ANTHONY GARZA Yulia Ot Z79.4 CHILD CENTER ASSISTANT (CURRENT) USE OF INSULIN 05/03/2019 ANTHONY GARZA Ot Z79.899 OTHER CHILD CENTER ASSISTANT (CURRENT) DRUG THERAPY 05/03/2019 ANTHONY GARZA Ot [...] MD, Ot I25.10 ATHSCL HEART DISEASE OF [place] CORONARY 05/05/2019 ANGEL MCDOWELL MD, Ot I48 .0 PAROXYSMAL ATRIAL FIBRILLATION 05/05/2019 ANGEL MCDOWELL MD, Ot I49 .5 SICK SINUS SYNDROME 05/05/2019 ANGEL MCDOWELL MD, Ot I50.31 ACUTE DIASTOLIC (CONGESTIVE) HEART FAILU 05/05/2019 ANGEL MCDOWELL MD Ot I70.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 [place] ARTERIES OF EXTREMITI 05/05/2019 ANGEL MCDOWELL MD, Ot J90 PLEURAL EFFUSION, NOT ELSEWHERE CLASSIFI 05/05/2019 ANGEL MCDOWELL MD, Ot K58 .9 IRRITABLE BOWEL SYNDROME WITHOUT DIARRHE 05/05/2019 ANGEL MCDOWELL MD, Ot N18 .3 CHRONIC KIDNEY DISEASE, STAGE 3 (MODERAT 05/05/2019 ANGEL MCDOWELL MD, Ot T82.855A STENOSIS OF CORONARY ARTERY STENT, INITI 05/05/2019 ANGEL MCDOWELL MD, Ot Z79.01 PRISON (CURRENT) USE OF ANTICOAGULANT 05/05/2019 ANGEL MCDOWELL MD, Ot Z79.02 PRISON (CURRENT) USE OF ANTITHROMBOTI 05/05/2019 ANGEL MCDOWELL MD, Ot Z79 .4 PRISON (CURRENT) USE OF INSULIN 05/05/2019 ANGEL MCDOWELL [...] MD, Ot I25.10 ATHSCL HEART DISEASE OF [place] CORONARY 05/05/2019 ANGEL MCDOWELL MD Ot I48 .0 PAROXYSMAL ATRIAL FIBRILLATION 05/05/2019 ANGEL MCDOWELL MD Ot I49 .5 SICK SINUS SYNDROME 05/05/2019 ANGEL MCDOWELL MD Ot I50.31 ACUTE DIASTOLIC (CONGESTIVE) HEART FAILU 05/05/2019 ANGEL MCDOWELL MD Ot I70.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 00 PURE HYPERCHOLESTEROLEMIA, UNSPECIFIED 05/08/2019 CRIS WALDEN MD Ot E78. 5 HYPERLIPIDEMIA, UNSPECIFIED 05/08/2019 CRIS WALDEN MD, Ot I12. 9 HYPERTENSIVE CHRONIC KIDNEY DISEASE W ST 05/08/2019 CRIS WALDEN MD Ot I25. 10 ATHSCL HEART DISEASE OF [place] CORONARY 05/08/2019 CRIS WALDEN MD Ot I48. [...] 05/08/2019 CRIS WALDEN MD, Ot Z79. 01 PRISON (CURRENT) USE OF ANTICOAGULANT 05/08/2019 CRIS WALDEN MD Ot Z79. 02 PRISON (CURRENT) USE OF ANTITHROMBOTI 05/08/2019 WIN MD, CRIS M Ot Z79. 4 CHILD CENTER ASSISTANT (CURRENT) USE OF INSULIN 05/08/2019 CRIS WALDEN [...] 22 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 05/08/2019 CRIS WALDEN MD Ot E78. 00 PURE HYPERCHOLESTEROLEMIA, UNSPECIFIED 05/08/2019 CRIS WALDEN MD Ot E78. 5 HYPERLIPIDEMIA, UNSPECIFIED 05/08/2019 CRIS WALDEN MD Ot I12. 9 HYPERTENSIVE CHRONIC KIDNEY DISEASE W ST 05/08/2019 CRIS WALDEN MD Ot I25. 10 ATHSCL HEART DISEASE OF [place] CORONARY 05/08/2019 CRIS WALDEN MD Ot I48. [...] 05/08/2019 CRIS WALDEN MD, Ot Z79. 01 PRISON (CURRENT) USE OF ANTICOAGULANT 05/08/2019 CRIS WALDEN MD, Ot Z79. 02 PRISON (CURRENT) USE OF ANTITHROMBOTI 05/08/2019 CRIS WALDEN MD, Ot Z79. 4 PRISON (CURRENT) USE OF INSULIN 05/08/2019 CRIS WALDEN [...] MD, Ot I25.10 ATHSCL HEART DISEASE OF [place] CORONARY 05/28/2019 MOIRA HEART MD, Ot I25.2 OLD MYOCARDIAL INFARCTION 05/28/2019 MOIRA HEART MD Ot I48.91 UNSPECIFIED ATRIAL FIBRILLATION 05/28/2019 MOIRA HERAT MD, Ot K58.9 IRRITABLE BOWEL SYNDROME WITHOUT DIARRHE 05/28/2019 MOIRA HEART MD, Ot L97.529 NON-PRESSURE CHRONIC ULCER OTH PRT LEFT 05/28/2019 MOIRA HEART MD, Ot T81.89XA OTH COMPLICATIONS OF PROCEDURES, NEC, IN 05/28/2019 MOIRA HEART MD, Ot 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 05/28/2019 MOIRA HEART MD, Ot Z79.02 PRISON (CURRENT) USE OF ANTITHROMBOTI 05/28/2019 MOIRA HEART MD, Ot Z79.4 PRISON (CURRENT) USE OF INSULIN 05/28/2019 MOIRA HEART [...] MD, Ot I25.10 ATHSCL HEART DISEASE OF [place] CORONARY 05/31/2019 MOIRA HEART MD, Ot I25.2 OLD MYOCARDIAL INFARCTION 05/31/2019 MOIRA HEART MD, Ot I48.91 UNSPECIFIED ATRIAL FIBRILLATION 05/31/2019 MOIRA HEART MD, Ot K58.9 IRRITABLE BOWEL SYNDROME WITHOUT DIARRHE 05/31/2019 MOIRA HEART MD, Ot L97.529 NON-PRESSURE CHRONIC ULCER OTH PRT LEFT 05/31/2019 MOIRA HEART MD, Ot T81.89XA OTH COMPLICATIONS OF PROCEDURES, NEC, IN 05/31/2019 MOIRA HEART MD Ot 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 05/31/2019 MOIRA HEART MD Ot Z79.02 PRISON (CURRENT) USE OF ANTITHROMBOTI 05/31/2019 MOIRA HEART MD, Ot Z79.4 CHILD CENTER ASSISTANT (CURRENT) USE OF INSULIN 05/31/2019 MOIRA HEART [...] Z88.2 ALLERGY STATUS TO SULFONAMIDES STATUS 05/31/2019 NIGHTMUTE MD, MOIRA D Ot Z88.5 ALLERGY STATUS [...] Soliman Ot I25.10 ATHSCL HEART DISEASE OF [place] CORONARY 06/03/2019 JOE ROBERTSON MD Ot E04.1 NONTOXIC SINGLE THYROID NODULE 06/03/2019 ANTHONY GARZA Ot E04.1 NONTOXIC SINGLE THYROID NODULE 06/03/2019 ANTHONY GARZA Ot 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 06/03/2019 ANTHONY GARZA Ot E11.43 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 06/03/2019 ANTHONY GARZA Ot E78.5 HYPERLIPIDEMIA, UNSPECIFIED 06/03/2019 ANTHONY GARZA Ot 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 [place]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 06/03/2019 ANTHONY GARZA Ot I25.10 ATHSCL HEART DISEASE OF [place] CORONARY 06/03/2019 ANTHONY GARZA Ot I50.9 HEART FAILURE, UNSPECIFIED 06/03/2019 ANTHONY GARZA Ot K21.9 GASTRO-ESOPHAGEAL REFLUX DISEASE WITHOUT 06/03/2019 ANTHONY GARZA Ot N18.3 CHRONIC KIDNEY DISEASE, STAGE 3 (MODERAT 06/03/2019 ANTHONY GARZA Ot Z08 ENCNTR FOR FOLLOW-UP EXAM AFTER TRTMT FO 06/03/2019 ANTHONY GARZA Ot Z79.02 PRISON (CURRENT) USE OF ANTITHROMBOTI 06/03/2019 ANTHONY GARZA Ot Z79.4 PRISON (CURRENT) USE OF INSULIN 06/03/2019 ANTHONY GARZA Ot Z79.899 OTHER PRISON (CURRENT) DRUG THERAPY 06/03/2019 ANTHONY GARZA Ot [...] Ot I25. 10 ATHSCL HEART DISEASE OF [place] CORONARY 06/03/2019 DIMPLE NOVOA MD Ot I49. 5 SICK SINUS SYNDROME 06/03/2019 NENA ROJAS, AMADEO Sherman Ot Z01.818 ENCOUNTER FOR OTHER PREPROCEDURAL EXAMIN 06/03/2019 JOE ROBERTSON MD Ot R05 COUGH 06/03/2019 JOE ROBERTSON MD Ot Z95.0 PRESENCE OF CARDIAC PACEMAKER 06/03/2019 ANTHONY GARZA Ot E04.1 NONTOXIC SINGLE THYROID NODULE 06/03/2019 ANTHONY GARZA Ot 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 06/03/2019 ANTHONY GARZA Ot E11.43 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 06/03/2019 ANTHONY GARZA Ot E78.5 HYPERLIPIDEMIA, UNSPECIFIED 06/03/2019 ANTHONY GARZA Ot 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 [place]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 06/03/2019 ANTHONY GARZA Ot I25.10 ATHSCL HEART DISEASE OF [place] CORONARY 06/03/2019 ANTHONY GARZA Ot K21.9 GASTRO-ESOPHAGEAL REFLUX DISEASE WITHOUT 06/03/2019 ANTHONY GARZA Ot N18.3 CHRONIC KIDNEY DISEASE, STAGE 3 (MODERAT 06/03/2019 ANTHONY GARZA Ot Z08 ENCNTR FOR FOLLOW-UP EXAM AFTER TRTMT FO 06/03/2019 ANTHONY GARZA Ot Z79.02 CHILD CENTER ASSISTANT (CURRENT) USE OF ANTITHROMBOTI 06/03/2019 ANTHONY GARZA Ot Z79.4 PRISON (CURRENT) USE OF INSULIN 06/03/2019 ANTHONY GARZA Ot Z79.899 OTHER CHILD CENTER ASSISTANT (CURRENT) DRUG THERAPY 06/03/2019 GREG, ANTHONY Bender Ot Z85.3 PERSONAL HISTORY OF MALIGNANT NEOPLASM O 06/03/2019 GREGANTHONY Ot Z95.5 PRESENCE OF CORONARY ANGIOPLASTY IMPLANT 06/03/2019 Ot R19.7 DIAR KRIS, UNSPECIFIED 06/04/2019 CRIS WALDEN MD Ot E11. 22 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 06/04/2019 CRIS WALDEN MD Ot E78. 00 PURE HYPERCHOLESTEROLEMIA, UNSPECIFIED 06/04/2019 CRIS WALDEN MD, Ot E78. 2 MIXED HYPERLIPIDEMIA 06/04/2019 CRIS WALDEN MD Ot G47. 33 OBSTRUCTIVE SLEEP APNEA (ADULT) (PEDIATR 06/04/2019 CRIS WALDEN MD, Ot I12. 9 HYPERTENSIVE CHRONIC KIDNEY DISEASE W ST 06/04/2019 CRIS WALDEN MD, Ot I25. 10 ATHSCL HEART DISEASE OF [place] CORONARY 06/04/2019 CRIS WALDEN MD Ot I48. 91 UNSPECIFIED ATRIAL FIBRILLATION 06/04/2019 CRIS WALDEN MD Ot I73. 9 PERIPHERAL VASCULAR DISEASE, UNSPECIFIED 06/04/2019 CRIS WALDEN MD Ot I95. 1 ORTHOSTATIC HYPOTENSION 06/04/2019 CRIS WALDEN MD Ot N18. 9 CHRONIC KIDNEY DISEASE, UNSPECIFIED 06/04/2019 CRIS WALDEN MD Ot Z79. 01 PRISON (CURRENT) USE OF ANTICOAGULANT 06/04/2019 CRIS WALDEN MD Ot Z79. 02 CHILD CENTER ASSISTANT (CURRENT) USE OF ANTITHROMBOTI 06/04/2019 CRIS WALDEN MD Ot Z79. 4 PRISON (CURRENT) USE OF INSULIN 06/04/2019 CRIS WALDEN MD, Ot Z79.899 OTHER CHILD CENTER ASSISTANT (CURRENT) DRUG THERAPY 06/04/2019 CRIS WALDEN MD [...] 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 07/29/2019 HANSON DO, KIMMY Ot E11.40 TYPE [...] KIMMY Ot I25.10 ATHSCL HEART DISEASE OF [place] CORONARY 07/29/2019 HANSON DO, KIMMY Ot I48.0 [...] (ESBL) 07/29/2019 MARGIE CANDELARIO, KIMMY Ot Z79.4 PRISON (CURRENT) USE OF INSULIN 07/29/2019 MARGIE CANDELARIO, [...] 22 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 08/02/2019 CRIS WALDEN MD Ot E11. 51 TYPE 2 DIABETES W DIABETIC PERIPHERAL AN 08/02/2019 CRIS WALDEN MD Ot E11.649 TYPE 2 DIABETES MELLITUS WITH HYPOGLYCEM 08/02/2019 CRIS WALEDN MD Ot E78. 5 HYPERLIPIDEMIA, UNSPECIFIED 08/02/2019 CRIS WALDEN MD Ot I12. 9 HYPERTENSIVE CHRONIC KIDNEY DISEASE W ST 08/02/2019 CRIS WALDEN MD Ot I25. 10 ATHSCL HEART DISEASE OF [place] CORONARY 08/02/2019 CRIS WALDEN MD Ot I48. [...] 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 08/05/2019 MARGIE CANDELARIO KIMMY Ot E11.40 TYPE [...] KIMMY Ot I25.10 ATHSCL HEART DISEASE OF [place] CORONARY 08/05/2019 MARGIE DO KIMMY Ot I48.0 [...] (ESBL) 08/05/2019 HANSON DO, KIMMY Ot Z79.4 CHILD CENTER ASSISTANT (CURRENT) USE OF INSULIN 08/05/2019 HANSON DO, [...] OF PROSTHETIC HEART VALVE 08/05/2019 HANSON DO, IKMMY Ot Z95.5 PRESENCE OF CORONARY ANGIOPLASTY IMPLANT 08/05/2019 HANSON DO, KIMMY Ot Z95.82 0 PERIPHERAL VASCULAR ANGIOPLASTY STATUS W 08/05/2019 HANSON DO, KIMMY Ot B96.20 UNSP ESCHERICHIA COLI THE CAUSE OF DI 08/05/2019 HANSON DO, KIMMY Ot 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 08/05/2019 HANSON DO, KIMMY Ot E11.40 TYPE [...] KIMMY Ot I25.10 ATHSCL HEART DISEASE OF [place] CORONARY 08/05/2019 HANSON DO, KIMMY Ot I48.0 [...] (ESBL) 08/05/2019 MARGIE CANDELARIO KIMMY Ot Z79.4 PRISON (CURRENT) USE OF INSULIN 08/05/2019 MARGIE CANDELARIO [...] 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 08/05/2019 HANSON DO, KIMMY Ot E11.40 TYPE [...] KIMMY Ot I25.10 ATHSCL HEART DISEASE OF [place] CORONARY 08/05/2019 HANSON DO, KIMMY Ot I48.0 [...] (ESBL) 08/05/2019 MARGIE CANDELARIO KIMMY Ot Z79.4 CHILD CENTER ASSISTANT (CURRENT) USE OF INSULIN 08/05/2019 HANSON DO, [...] 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 08/05/2019 HANSON DO, KIMMY Ot E11.40 TYPE [...] KIMMY Ot I25.10 ATHSCL HEART DISEASE OF [place] CORONARY 08/05/2019 HANSON DO, KIMMY Ot I48.0 [...] (ESBL) 08/05/2019 HANSON DO, KIMMY Ot Z79.4 CHILD CENTER ASSISTANT (CURRENT) USE OF INSULIN 08/05/2019 HANSON DO, [...] BOLIVAR APRN Ot D64.9 ANEMIA, UNSPECIFIED 08/11/2019 MARCELO ROJAS, JOE Sherman Ot L98.9 DISORDER OF THE SKIN AND SUBCUTANEOUS TI 09/29/2019 WINCRIS SUE MD, Ot E11. 40 TYPE 2 DIABETES MELLITUS WITH DIABETIC N 09/29/2019 CRIS WALDEN MD, Ot E11. 51 TYPE 2 DIABETES W DIABETIC PERIPHERAL AN 09/29/2019 CRIS WALDEN MD, Ot E66. 9 OBESITY, UNSPECIFIED 09/29/2019 CRIS WALDEN MD, Ot E78. 00 PURE HYPERCHOLESTEROLEMIA, UNSPECIFIED 09/29/2019 CRIS WALDEN MD, Ot E87. 2 ACIDOSIS 09/29/2019 CRIS WALDEN MD, Ot G47. 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 0 HYP HRT CHR KDNY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 09/29/2019 CRIS WALDEN MD, Ot I25. 10 ATHSCL HEART DISEASE OF [place] CORONARY 09/29/2019 CRIS WALDEN MD, Ot I25. 2 OLD MYOCARDIAL INFARCTION 09/29/2019 CRIS WALDEN MD, Ot I48. 20 CHRONIC ATRIAL FIBRILLATION, UNSPECIFIED 09/29/2019 CRIS WALDEN MD, Ot I50. 9 HEART FAILURE, UNSPECIFIED 09/29/2019 CRIS WALDEN MD, Ot K58. 9 IRRITABLE BOWEL SYNDROME WITHOUT DIARRHE 09/29/2019 CRIS WALDEN MD, Ot N18. 9 CHRONIC KIDNEY DISEASE, UNSPECIFIED 09/29/2019 CRIS WALDEN MD, Ot N39. 0 URINARY TRACT INFECTION, SITE NOT SPECIF 09/29/2019 CRIS WALDEN MD, Ot R01. 1 CARDIAC MURMUR, UNSPECIFIED 09/29/2019 CRIS WALDEN MD, Ot R53. 81 OTHER MALAISE 09/29/2019 CRIS WALDEN MD, Ot R63. 0 ANOREXIA 09/29/2019 CRIS WALDEN MD, Ot Z68. 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 3 PERSONAL HISTORY OF MALIGNANT NEOPLASM O 09/29/2019 CRIS WALDEN MD, Ot Z86. 73 PRSNL HX OF TIA (TIA), AND CEREB INFRC W 09/29/2019 WIN ROJAS, CRIS Carr Ot Z92. 3 PERSONAL HISTORY OF IRRADIATION 09/29/2019 WIN ROJAS, CRIS Carr Ot Z95. 0 PRESENCE OF CARDIAC PACEMAKER 09/29/2019 WIN ROJAS, CRIS Carr Ot Z95. 2 PRESENCE OF PROSTHETIC HEART VALVE 09/29/2019 WIN ROJAS, CRIS Carr Ot Z95. 5 PRESENCE OF CORONARY ANGIOPLASTY IMPLANT 10/04/2019 HANSON DO, KIMMY Ot B96.1 [place] PNEUMONIAE THE CAUSE OF DI 10/04/2019 HANSON DO, KIMMY Ot D64.9 ANEMIA, UNSPECIFIED 10/04/2019 HANSON DO, KIMMY Ot E11.40 TYPE 2 DIABETES MELLITUS WITH DIABETIC N 10/04/2019 HANSON DO, KIMMY Ot E87.6 HYPOKALEMIA 10/04/2019 HANSON DO, KIMMY Ot I12.9 HYPERTENSIVE CHRONIC KIDNEY DISEASE W ST 10/04/2019 HANSON DO, KIMMY Ot I25.10 ATHSCL HEART DISEASE OF [place] CORONARY 10/04/2019 HANSON DO, KIMMY Ot I48.20 CHRONIC ATRIAL FIBRILLATION, UNSPECIFIED 10/04/2019 HANSON DO, KIMMY Ot I49.5 SICK SINUS SYNDROME 10/04/2019 HANSON DO, KIMMY Ot I73.9 PERIPHERAL VASCULAR DISEASE, UNSPECIFIED 10/04/2019 HANSON DO, KIMMY Ot M19.91 PRIMARY OSTEOARTHRITIS, UNSPECIFIED SITE 10/04/2019 HANSON DO, KIMMY Ot N18.9 CHRONIC KIDNEY DISEASE, UNSPECIFIED 10/04/2019 HANSON DO, KIMMY Ot N31.9 NEUROMUSCULAR DYSFUNCTION OF BLADDER, UN 10/04/2019 HANSON DO, KIMMY Ot N32.81 OVERACTIVE BLADDER 10/04/2019 HANSON DO, KIMMY Ot N39.0 URINARY TRACT INFECTION, SITE NOT SPECIF 10/04/2019 HANSON DO, KIMMY Ot N39.46 MIXED INCONTINENCE 10/04/2019 HANSON DO, KIMMY Ot R15.9 FULL INCONTINENCE OF FECES 10/04/2019 HANSON DO, KIMMY Ot R33.9 RETENTION OF URINE, UNSPECIFIED 10/04/2019 HANSON DO, KIMMY Ot R53.81 OTHER MALAISE 10/04/2019 HANSON DO, KIMMY Ot R60.0 LOCALIZED EDEMA 10/04/2019 HANSON DO, KIMMY Ot Z79.01 PRISON (CURRENT) USE OF ANTICOAGULANT 10/04/2019 HANSON DO, KIMMY Ot Z90.71 0 ACQUIRED ABSENCE OF BOTH CERVIX AND UTER 10/04/2019 HANSON DO, KIMMY Ot Z90.72 2 ACQUIRED ABSENCE OF OVARIES, BILATERAL 10/04/2019 HANSON DO, KIMMY Ot Z95.0 PRESENCE OF CARDIAC PACEMAKER 10/04/2019 HANSON DO, KIMMY Ot Z95.5 PRESENCE OF CORONARY ANGIOPLASTY IMPLANT 10/04/2019 HANSON DO, KIMMY Ot B96.1 [place] PNEUMONIAE THE CAUSE OF DI 10/04/2019 HANSON DO, KIMMY Ot D64.9 ANEMIA, UNSPECIFIED 10/04/2019 HANSON DO, KIMMY Ot E11.40 TYPE 2 DIABETES MELLITUS WITH DIABETIC N 10/04/2019 HANSON DO, KIMMY Ot E87.6 HYPOKALEMIA 10/04/2019 HANSON DO, KIMMY Ot I12.9 HYPERTENSIVE CHRONIC KIDNEY DISEASE W ST 10/04/2019 HANSON DO, KIMMY Ot I25.10 ATHSCL HEART DISEASE OF [place] CORONARY 10/04/2019 HANSON DO, KIMMY Ot I48.20 CHRONIC ATRIAL FIBRILLATION, UNSPECIFIED 10/04/2019 HANSON DO, KIMMY Ot I49.5 SICK SINUS SYNDROME 10/04/2019 HANSON DO, KIMMY Ot I73.9 PERIPHERAL VASCULAR DISEASE, UNSPECIFIED 10/04/2019 HANSON DO, KIMMY Ot M19.91 PRIMARY OSTEOARTHRITIS, UNSPECIFIED SITE 10/04/2019 HANSON DO, KIMMY Ot N18.9 CHRONIC KIDNEY DISEASE, UNSPECIFIED 10/04/2019 HANSON DO, KIMMY Ot N31.9 NEUROMUSCULAR DYSFUNCTION OF BLADDER, UN 10/04/2019 HANSON DO, KIMMY Ot N32.81 OVERACTIVE BLADDER 10/04/2019 HANSON DO, KIMMY Ot N39.0 URINARY TRACT INFECTION, SITE NOT SPECIF 10/04/2019 HANSON DO, KIMMY Ot N39.46 MIXED INCONTINENCE 10/04/2019 HANSON DO, KIMMY Ot R15.9 FULL INCONTINENCE OF FECES 10/04/2019 HANSON DO, KIMMY Ot R33.9 RETENTION OF URINE, UNSPECIFIED 10/04/2019 HANSON DO, KIMMY Ot R53.81 OTHER MALAISE 10/04/2019 HANSON DO, KIMMY Ot R60.0 LOCALIZED EDEMA 10/04/2019 HANSON DO, KIMMY Ot Z79.01 PRISON (CURRENT) USE OF ANTICOAGULANT 10/04/2019 HANSON DO, KIMMY Ot Z90.71 0 ACQUIRED ABSENCE OF BOTH CERVIX AND UTER 10/04/2019 HANSON DO, KIMMY Ot Z90.72 2 ACQUIRED ABSENCE OF OVARIES, BILATERAL 10/04/2019 HANSON DO, KIMMY Ot Z95.0 PRESENCE OF CARDIAC PACEMAKER 10/04/2019 HANSON DO, KIMMY Ot Z95.5 PRESENCE OF CORONARY ANGIOPLASTY IMPLANT 10/04/2019 HANSON DO, KIMMY Ot B96.1 KLEBSIELLA PNEUMONIAE THE CAUSE OF DI 10/04/2019 HANSON DO, KIMMY Ot D64.9 ANEMIA, UNSPECIFIED 10/04/2019 HANSON DO, KIMMY Ot E11.40 TYPE 2 DIABETES MELLITUS WITH DIABETIC N 10/04/2019 HANSON DO, KIMMY Ot E87.6 HYPOKALEMIA 10/04/2019 HANSON DO, KIMMY Ot I12.9 HYPERTENSIVE CHRONIC KIDNEY DISEASE W ST 10/04/2019 HANSON DO, KIMMY Ot I25.10 ATHSCL HEART DISEASE OF [place] CORONARY 10/04/2019 HANSON DO, KIMMY Ot I48.20 CHRONIC ATRIAL FIBRILLATION, UNSPECIFIED 10/04/2019 HANSON DO, KIMMY Ot I49.5 SICK SINUS SYNDROME 10/04/2019 HANSON DO, KIMMY Ot I73.9 PERIPHERAL VASCULAR DISEASE, UNSPECIFIED 10/04/2019 HANSON DO, KIMMY Ot M19.91 PRIMARY OSTEOARTHRITIS, UNSPECIFIED SITE 10/04/2019 HANSON DO, KIMMY Ot N18.9 CHRONIC KIDNEY DISEASE, UNSPECIFIED 10/04/2019 HANSON DO, KIMMY Ot N31.9 NEUROMUSCULAR DYSFUNCTION OF BLADDER, UN 10/04/2019 HANSON DO, KIMMY Ot N32.81 OVERACTIVE BLADDER 10/04/2019 HANSON DO, KIMMY Ot N39.0 URINARY TRACT INFECTION, SITE NOT SPECIF 10/04/2019 HANSON DO, KIMMY Ot N39.46 MIXED INCONTINENCE 10/04/2019 HANSON DO, KIMMY Ot R15.9 FULL INCONTINENCE OF FECES 10/04/2019 HANSON DO, KIMMY Ot R33.9 RETENTION OF URINE, UNSPECIFIED 10/04/2019 HANSON DO, KIMMY Ot R53.81 OTHER MALAISE 10/04/2019 HANSON DO, KIMMY Ot R60.0 LOCALIZED EDEMA 10/04/2019 HANSON DO, KIMMY Ot 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 10/04/2019 HANSON DO, KIMMY Ot Z90.71 0 ACQUIRED ABSENCE OF BOTH CERVIX AND UTER 10/04/2019 HANSON DO, KIMMY Ot Z90.72 2 ACQUIRED ABSENCE OF OVARIES, BILATERAL 10/04/2019 HANSON DO, KIMMY Ot Z95.0 PRESENCE OF CARDIAC PACEMAKER 10/04/2019 HANSON DO, KIMMY Ot Z95.5 PRESENCE OF CORONARY ANGIOPLASTY IMPLANT 10/04/2019 HANSON DO, KIMMY Ot B96.1 KLEBSIELLA PNEUMONIAE THE CAUSE OF DI 10/04/2019 HANSON DO, KIMMY Ot D64.9 ANEMIA, UNSPECIFIED 10/04/2019 HANSON DO, KIMMY Ot E11.40 TYPE 2 DIABETES MELLITUS WITH DIABETIC N 10/04/2019 HANSON DO, KIMMY Ot E87.6 HYPOKALEMIA 10/04/2019 HANSON DO, KIMMY Ot I12.9 HYPERTENSIVE CHRONIC KIDNEY DISEASE W ST 10/04/2019 HANSON DO, KIMMY Ot I25.10 ATHSCL HEART DISEASE OF [place] CORONARY 10/04/2019 HANSON DO, KIMMY Ot I48.20 CHRONIC ATRIAL FIBRILLATION, UNSPECIFIED 10/04/2019 HANSON DO, KIMMY Ot I49.5 SICK SINUS SYNDROME 10/04/2019 HANSON DO, KIMMY Ot I73.9 PERIPHERAL VASCULAR DISEASE, UNSPECIFIED 10/04/2019 HANSON DO, KIMMY Ot M19.91 PRIMARY OSTEOARTHRITIS, UNSPECIFIED SITE 10/04/2019 HANSON DO, KIMMY Ot N18.9 CHRONIC KIDNEY DISEASE, UNSPECIFIED 10/04/2019 HANSON DO, KIMMY Ot N31.9 NEUROMUSCULAR DYSFUNCTION OF BLADDER, UN 10/04/2019 HANSON DO, KIMMY Ot N32.81 OVERACTIVE BLADDER 10/04/2019 HANSON DO, KIMMY Ot N39.0 URINARY TRACT INFECTION, SITE NOT SPECIF 10/04/2019 HANSON DO, KIMMY Ot N39.46 MIXED INCONTINENCE 10/04/2019 HANSON DO, KIMMY Ot R15.9 FULL INCONTINENCE OF FECES 10/04/2019 HANSON DO, KIMMY Ot R33.9 RETENTION OF URINE, UNSPECIFIED 10/04/2019 HANSON DO, KIMMY Ot R53.81 OTHER MALAISE 10/04/2019 HANSON DO, KIMMY Ot R60.0 LOCALIZED EDEMA 10/04/2019 HANSON DO, KIMMY Ot 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 10/04/2019 HANSON DO, KIMMY Ot Z90.71 0 ACQUIRED ABSENCE OF BOTH CERVIX AND UTER 10/04/2019 HANSON DO, KIMMY Ot Z90.72 2 ACQUIRED ABSENCE OF OVARIES, BILATERAL 10/04/2019 HANSON DO, KIMMY Ot Z95.0 PRESENCE OF CARDIAC PACEMAKER 10/04/2019 HANSON DO, KIMMY Ot Z95.5 PRESENCE OF CORONARY ANGIOPLASTY IMPLANT 10/06/2019 HANSON DO, KIMMY Ot B96.1 KLEBSIELLA PNEUMONIAE THE CAUSE OF DI 10/06/2019 HANSON DO, KIMMY Ot D64.9 ANEMIA, UNSPECIFIED 10/06/2019 HANSON DO, KIMMY Ot E11.40 TYPE 2 DIABETES MELLITUS WITH DIABETIC N 10/06/2019 HANSON DO, KIMMY Ot E87.6 HYPOKALEMIA 10/06/2019 HANSON DO, KIMMY Ot I12.9 HYPERTENSIVE CHRONIC KIDNEY DISEASE W ST 10/06/2019 HANSON DO, KIMMY Ot I25.10 ATHSCL HEART DISEASE OF [place] CORONARY 10/06/2019 HANSON DO, KIMMY Ot I48.20 CHRONIC ATRIAL FIBRILLATION, UNSPECIFIED 10/06/2019 HANSON DO, KIMMY Ot I49.5 SICK SINUS SYNDROME 10/06/2019 HANSON DO, KIMMY Ot I73.9 PERIPHERAL VASCULAR DISEASE, UNSPECIFIED 10/06/2019 HANSON DO, KIMMY Ot M19.91 PRIMARY OSTEOARTHRITIS, UNSPECIFIED SITE 10/06/2019 HANSON DO, KIMMY Ot N18.9 CHRONIC KIDNEY DISEASE, UNSPECIFIED 10/06/2019 HANSON DO, KIMMY Ot N31.9 NEUROMUSCULAR DYSFUNCTION OF BLADDER, UN 10/06/2019 HANSON DO, KIMMY Ot N32.81 OVERACTIVE BLADDER 10/06/2019 HANSON DO, KIMMY Ot N39.0 URINARY TRACT INFECTION, SITE NOT SPECIF 10/06/2019 HANSON DO, KIMMY Ot N39.46 MIXED INCONTINENCE 10/06/2019 HANSON DO, KIMMY Ot R15.9 FULL INCONTINENCE OF FECES 10/06/2019 HANSON DO, KIMMY Ot R33.9 RETENTION OF URINE, UNSPECIFIED 10/06/2019 HANSON DO, KIMMY Ot R53.81 OTHER MALAISE 10/06/2019 HANSON DO, KIMMY Ot R60.0 LOCALIZED EDEMA 10/06/2019 HANSON DO, KIMMY Ot 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 10/06/2019 HANSON DO, KIMMY Ot Z90.71 0 ACQUIRED ABSENCE OF BOTH CERVIX AND UTER 10/06/2019 HANSON DO, KIMMY Ot Z90.72 2 ACQUIRED ABSENCE OF OVARIES, BILATERAL 10/06/2019 HANSON DO, KIMMY Ot Z95.0 PRESENCE OF CARDIAC PACEMAKER 10/06/2019 HANSON DO, KIMMY Ot Z95.5 PRESENCE OF CORONARY ANGIOPLASTY IMPLANT 10/10/2019 HANSON DO, KIMMY Ot B96.1 KLEBSIELLA PNEUMONIAE THE CAUSE OF DI 10/10/2019 HANSON DO, KIMMY Ot D64.9 ANEMIA, UNSPECIFIED 10/10/2019 HANSON DO, KIMMY Ot E11.40 TYPE 2 DIABETES MELLITUS WITH DIABETIC N 10/10/2019 HANSON DO, KIMMY Ot E87.6 HYPOKALEMIA 10/10/2019 HANSON DO, KIMMY Ot I12.9 HYPERTENSIVE CHRONIC KIDNEY DISEASE W ST 10/10/2019 HANSON DO, KIMMY Ot I25.10 ATHSCL HEART DISEASE OF [place] CORONARY 10/10/2019 HANSON DO, KIMMY Ot I48.20 CHRONIC ATRIAL FIBRILLATION, UNSPECIFIED 10/10/2019 HANSON DO, KIMMY Ot I49.5 SICK SINUS SYNDROME 10/10/2019 HANSON DO, KIMMY Ot I73.9 PERIPHERAL VASCULAR DISEASE, UNSPECIFIED 10/10/2019 HANSON DO, KIMMY Ot M19.91 PRIMARY OSTEOARTHRITIS, UNSPECIFIED SITE 10/10/2019 HANSON DO, KIMMY Ot M54.2 CERVICALGIA 10/10/2019 HANSON DO, KIMMY Ot N18.9 CHRONIC KIDNEY DISEASE, UNSPECIFIED 10/10/2019 HANSON DO, KIMMY Ot N31.9 NEUROMUSCULAR DYSFUNCTION OF BLADDER, UN 10/10/2019 HANSON DO, KIMMY Ot N32.81 OVERACTIVE BLADDER 10/10/2019 HANSON DO, KIMMY Ot N39.0 URINARY TRACT INFECTION, SITE NOT SPECIF 10/10/2019 HANSON DO, KIMMY Ot N39.46 MIXED INCONTINENCE 10/10/2019 HANSON DO, KIMMY Ot R15.9 FULL INCONTINENCE OF FECES 10/10/2019 HANSON DO, KIMMY Ot R33.9 RETENTION OF URINE, UNSPECIFIED 10/10/2019 HANSON DO, KIMMY Ot R53.81 OTHER MALAISE 10/10/2019 HANSON DO, KIMMY Ot R60.0 LOCALIZED EDEMA 10/10/2019 HANSON DO, KIMMY Ot Z79.01 PRISON (CURRENT) USE OF ANTICOAGULANT 10/10/2019 HANSON DO, KIMMY Ot Z90.71 0 ACQUIRED ABSENCE OF BOTH CERVIX AND UTER 10/10/2019 HANSON DO, KIMMY Ot Z90.72 2 ACQUIRED ABSENCE OF OVARIES, BILATERAL 10/10/2019 HANSON DO, KIMMY Ot Z95.0 PRESENCE OF CARDIAC PACEMAKER 10/10/2019 HANSON DO, KIMMY Ot Z95.5 PRESENCE OF CORONARY ANGIOPLASTY IMPLANT Procedures Code Description Performed By Per formed On [id number] ME ASURE OF CARDIAC SAMPL PRESSURE, L H 02/04/2019 [id number] ME ASUREMENT OF ARTERIAL PRESSURE, TERRAZAS 02/04/2019 [id number] FL UOROSCOPY OF MULT COR ART USING L OSM 02/04/2019 [id number] ME ASURE OF CARDIAC SAMPL PRESSURE, L H 04/06/2019 [id number] FL UOROSCOPY OF MULT COR ART USING L OSM 04/06/[id number] KOWALSKI OF RIGHT PLEURAL CAVITY, PERCUT 05/04/2019 [id number] CO NTROL BLEEDING IN NOSE SFT TISS, [...] culture - 12/26/16 07:50 Bacterial urine culture [id number] NRG COLONY COUNT >100,000/ML NRG FTX;REPORTABLE SENSITIVITY [...] culture - 02/03/18 15:55 Bacterial urine culture [id number] NRG COLONY COUNT >100,000/ML NRG FTX;REPORTABLE RML [...] culture - 12/08/18 15:30 Bacterial urine culture [id number] NRG COLONY COUNT >100,000/ML NRG FTX;REPORTABLE SUSCEPTIBILITY REPORTED 12-10-18. NR RML Sensitivity Panel - 12/08/18 15:30 Gentamicin [...] culture - 02/02/19 14:53 Bacterial urine culture [id number] NRG COLONY COUNT >100,000/ML NRG FTX;REPORTABLE SUSCEPTIBILITY REPORTED 02-04-19, 11 05. NRG Dirithromycin susceptibility test by dis [...] culture - 03/02/19 17:39 Bacterial urine culture [id number] NRG COLONY COUNT 40,000 CFU/ML NRG FTX;REPORTABLE [...] RESULTS NEGATIVE FOR ANTIGEN AND TOXIN A/B [facility] Stool bacteria identification by culture - 03/03/19 11:57 Stool bacteria identification by culture N2 [facility] Blood lactic acid measurement (moles/vol ume) - [...] 05/07/19 11:35 BNP PT 974.4 pg/mL <100.0 [id number] - 05/07/19 11:35 [id number] SPECIMEN AVAILABLE NRG Serum or plasma troponin [...] in u rine sediment by light microscopy 10-25 NRG Crystals detection in urine sediment by light microsco py PRESENT NRG Casts detection in urine sediment by light microscopy NONE NRG Mucus detection in urine sediment by light microscopy NEGATIVE NRG Complete urinalysis with reflex to culture YES NRG Amorphous sediment detection in urine sediment by ligh t microscopy FEW [place] URATES NRG Bacterial urine culture - 05/07/19 14:17 Bacterial urine culture [id number] NRG COLONY COUNT >100,000/ML NRG FTX;REPORTABLE SUSCEPTIBILITY [...] Whole blood basic metabolic panel - 04/20 0 00:58 Serum or plasma sodium measurement (moles/volume) [...] 11:50 Bacteria identification in wound by culture [id number] NR FREE TEXT EXTERNAL SEE COMMENT NRG QUANTITY [...] Blood macrocytes detection by light microscopy SLI T NRG Blood poikilocytosis detection by light microscopy [...] anisocytosis detection by light microscopy M ARKED NR Blood toxic granules detection by light microscopy 1+ NRG Blood poikilocytosis detection by light microscopy SLIGHT NRG Manual blood nucleated erythrocytes/100 leukocytes ratio 1 NRG Blood hypochromia detection by light microscopy MO DERATE NR Blood microcytes detection by light microscopy MOD ERATE [facility] Automated reticulocyte percentage - 06/21 08/07 12:56 [...] culture - 07/23/19 16:34 Bacterial urine culture [id number] NRG COLONY COUNT >100,000/ML NRG FTX;REPORTABLE SUSCEPTIBILITY [...] ncentration <= NRG Nitrofurantoin susceptibility test by [facility] inhibitory concentration <= NRG Amoxicillin and [...] Blood microcytes detection by light microscopy MAR WILD NRG Comprehensive metabolic panel - 07/24/19 06:05 [...] mg/dL 70-110 Automated blood complete blood count ( mogram) panel - 08/01/19 06:45 Blood leukocytes [...] culture - 09/23/19 14:59 Bacterial blood culture NG NRG Influenza virus A and B antigen detectio n - 09/23/19 15:14 FLU RESULT NEGATIVE FOR INFLUENZA A AND B ANTIGENS BY IA NRG Bacterial blood culture - 09/23/19 15:15 Bacterial blood culture NG NRG Complete urinalysis [...] culture - 09/23/19 16:27 Bacterial urine culture [id number] NRG COLONY COUNT >100,000/ML NRG FTX;REPORTABLE NO SUSCEPTIBILITY PERFORMED NRG FREE TEXT ENTRY 2 PRELIM RAPID ID BY [facility] 3-8-20, 1 138 NRG FREE TEXT ENTRY 3 [...] by glucometer (mas s/volume) 102 mg/dL 70-110 Capillary blood glucose measurement by g lucometer (mass/volume) - 09/27/19 04:29 Capillary blood glucose measurement by glucometer (mas s/volume) 60 mg/dL 70-110 Automated blood complete blood count (he mogram) panel - 09/27/19 04:33 Blood leukocytes automated count (number/volume) 9.2 10*3/uL 4.3-11.0 Blood erythrocytes automated count (number/volume) 4.79 10*6/uL 4.35-5.85 Venous blood hemoglobin measurement (mass/volume) 11.6 g/dL 11.5-16.0 Blood hematocrit (volume fraction) 37 % 35-52 Automated erythrocyte mean corpuscular volume 78 [ foz_us] 80-99 Automated erythrocyte mean corpuscular h emoglobin (mass per erythrocyte) 24 pg 25-34 Automated erythrocyte mean corpuscular h emoglobin concentration measurement (mass/volume) 31 g/dL 32-36 Automated erythrocyte distribution width ratio TNP 10.0- 14.5 Automated blood platelet count (count/volume) 163 10*3/uL 130-400 Automated blood platelet mean volume measurement 9.2 [foz_us] 7.4-10.4 Whole blood basic metabolic panel - 09/17 04:33 Serum or plasma sodium measurement (moles/volume) 135 mmol/L 135-145 Serum or plasma potassium measurement (moles/volume) 3.5 mmol/L 3.6-5.0 Serum or plasma chloride measurement (moles/volume) 96 mmol/L 98-107 Carbon dioxide 27 mmol/L 21-32 Serum or plasma anion gap determination (moles/volume) 12 mmol/L 5-14 Serum or plasma urea nitrogen measurement (mass/volume ) 21 mg/dL 7-18 Serum or plasma creatinine measurement (mass/volume) 1.30 mg/dL 0.60-1.30 Serum or plasma urea nitrogen/creatinine mass ratio 16 NRG Serum or plasma creatinine measurement w ith calculation of estimated glomerular filtration rate 39 NRG Serum or plasma glucose measurement (mass/volume) 55 mg/dL 70-105 Serum or plasma calcium measurement (mass/volume) 8.5 mg/dL 8.5-10.1 Capillary blood glucose measurement by g lucometer (mass/volume) - 09/27/19 04:59 Capillary blood glucose measurement by glucometer (mas s/volume) 108 mg/dL 70-110 Capillary blood glucose measurement by g lucometer (mass/volume) - 09/27/19 06:02 Capillary blood glucose measurement by glucometer (mas s/volume) 88 mg/dL 70-110 Clostridium difficile DNA detection by p papa and target amplification method - 09/27/19 09:11 C DIFF MOLECULAR RESULT Negative for toxigen ic C diff by molecular method NRG C DIFFICILE AG + TOXIN A/B. - 09/27/19 0 9:11 FREE TEXT ENTRY 2 POSITIVE FOR GDH ANTIGEN NRG FREE TEXT ENTRY 3 NEGATIVE FOR TOXINS A AND B NRG CALL POSITIVES (F1 HELP) CALLED TO POOL LINDA RN 09/26 10:35 NRG RESULTS INDETERMINANT; MOLECULAR TEST TO FOLLOW NRG Capillary blood glucose measurement by g lucometer (mass/volume) - 09/28/19 06:05 Capillary blood glucose measurement by glucometer (mas s/volume) 275 mg/dL 70-110 Capillary blood glucose measurement by g lucometer (mass/volume) - 09/28/19 14:59 Capillary blood glucose measurement by glucometer (mas s/volume) 244 mg/dL 70-110 Capillary blood glucose measurement by g lucometer (mass/volume) - 09/28/19 19:28 Capillary blood glucose measurement by glucometer (mas s/volume) 213 mg/dL 70-110 Capillary blood glucose measurement by g lucometer (mass/volume) - 09/29/19 09:35 Capillary blood glucose measurement by glucometer (mas s/volume) 87 mg/dL 70-110 Capillary blood glucose measurement by g lucometer (mass/volume) - 09/29/19 15:29 Capillary blood glucose measurement by glucometer (mas s/volume) 151 mg/dL 70-110 Capillary blood glucose measurement by g lucometer (mass/volume) - 09/30/19 05:28 Capillary blood glucose measurement by glucometer (mas s/volume) 120 mg/dL 70-110 Complete blood count (CBC) with automate d white blood cell (WBC) differential - 09/30/19 05:32 Blood leukocytes automated count (number/volume) 6.1 10*3/uL 4.3-11.0 Blood erythrocytes automated count (number/volume) 4.77 10*6/uL 4.35-5.85 Venous blood hemoglobin measurement (mass/volume) 11.6 g/dL 11.5-16.0 Blood hematocrit (volume fraction) 38 [...] 8.8 [foz_us] 7.4-10.4 Automated blood neutrophils/100 leukocytes 60 % 42-75 Automated blood lymphocytes/100 leukocytes 26 % 12-44 Blood monocytes/100 leukocytes 11 % 0-12 Automated blood eosinophils/100 leukocytes 3 % 0-10 Automated blood basophils/100 leukocytes 1 % 0-10 Blood neutrophils automated count (number/volume) 3.6 10*3 1.8-7.8 Blood lymphocytes automated count (number/volume) 1.6 10*3 1.0-4.0 Blood monocytes automated count (number/volume) 0. 7 10*3 0.0-1.0 Automated eosinophil count 0.2 10*3/uL 0 .0-0.3 Automated blood basophil count (count/volume) 0.0 10*3/uL 0.0-0.1 Comprehensive metabolic panel - 09/30/19 05:32 Serum or plasma sodium measurement (moles/volume) 138 mmol/L 135-145 Serum or plasma potassium measurement (moles/volume) 3.2 mmol/L 3.6-5.0 Serum or plasma chloride measurement (moles/volume) 97 mmol/L 98-107 Carbon dioxide 31 mmol/L 21-32 Serum or plasma anion gap determination (moles/volume) 10 mmol/L 5-14 Serum or plasma urea nitrogen measurement (mass/volume ) 19 mg/dL 7-18 Serum or plasma creatinine measurement (mass/volume) 1.26 mg/dL 0.60-1.30 Serum or plasma urea nitrogen/creatinine mass ratio 15 NRG Serum or plasma creatinine measurement w ith calculation of estimated glomerular filtration rate 41 NRG Serum or plasma glucose measurement (mass/volume) 96 mg/dL 70-105 Serum or plasma calcium measurement (mass/volume) 8.3 mg/dL 8.5-10.1 Serum or plasma total bilirubin measurement (mass/volu me) 0.4 mg/dL 0.1-1.0 Serum or plasma alkaline phosphatase ghanshyam surement (enzymatic activity/volume) 112 U/L 40-136 Serum or plasma aspartate aminotransfera se measurement (enzymatic activity/volume) 26 U/L 5-34 Serum or plasma alanine aminotransferase measurement (enzymatic activity/volume) 13 U/L 0-55 Serum or plasma protein measurement (mass/volume) 5.5 g/dL 6.4-8.2 Serum or plasma albumin measurement (mass/volume) 2.8 g/dL 3.2-4.5 CALCIUM CORRECTED 9.3 mg/dL 8.5-10.1 Capillary blood glucose measurement by g lucometer (mass/volume) - 10/01/19 05:45 Capillary blood glucose measurement by glucometer (mas s/volume) 144 mg/dL 70-110 Capillary blood glucose measurement by g lucometer (mass/volume) - 10/02/19 11:10 Capillary blood glucose measurement by glucometer (mas s/volume) 116 mg/dL 70-110 Capillary blood glucose measurement by g lucometer (mass/volume) - 10/03/19 16:43 Capillary blood glucose measurement by glucometer (mas s/volume) 89 mg/dL 70-110 Bacteria identification in genital speci men by aerobe culture - 10/04/19 21:30 FREE TEXT EXTERNAL SUSCEPTIBILITY REPORTED 10/08/19 9:15 NRG QUANTITY OF GROWTH FEW NRG Bacteria identification in genital specimen by aerobe culture [id number] NRG Dirithromycin susceptibility test by dis k diffusion - 10/04/19 21:30 Gentamicin susceptibility test by minimum inhibitory c oncentration 4 NRG Levofloxacin susceptibility test by minimum inhibitory concentration 4 NRG Tobramycin susceptibility test by minimum inhibitory c oncentration <= NRG Piperacillin/tazobactam susceptibility t est by minimum inhibitory concentration <= NRG Ciprofloxacin susceptibility test by minimum inhibitor y concentration 2 NRG Meropenem susceptibility test by minimum inhibitory co ncentration 0.5 NRG Aztreonam susceptibility test by minimum inhibitory co ncentration 4 NRG Cefepime susceptibility test by minimum inhibitory con centration <= NRG Imipenem susceptibility test by minimum inhibitory con centration 1 NRG Ceftazidime susceptibility test by minimum inhibitory concentration 16 NRG Capillary blood glucose measurement by g lucometer (mass/volume) - 10/05/19 02:26 Capillary blood glucose measurement by glucometer (mas s/volume) 161 mg/dL 70-110 Capillary blood glucose measurement by g lucometer (mass/volume) - 10/05/19 05:39 Capillary blood glucose measurement by glucometer (mas s/volume) 188 mg/dL 70-110 Capillary blood glucose measurement by g lucometer (mass/volume) - 10/05/19 10:54 Capillary blood glucose measurement by glucometer (mas s/volume) 196 mg/dL 70-110 Capillary blood glucose measurement by g lucometer (mass/volume) - 10/05/19 15:29 Capillary blood glucose measurement by glucometer (mas s/volume) 234 mg/dL 70-110 Capillary blood glucose measurement by g lucometer (mass/volume) - 10/05/19 20:42 Capillary blood glucose measurement by glucometer (mas s/volume) 218 mg/dL 70-110 Capillary blood glucose measurement by g lucometer (mass/volume) - 10/06/19 09:20 Capillary blood glucose measurement by glucometer (mas s/volume) 93 mg/dL 70-110 Capillary blood glucose measurement by g lucometer (mass/volume) - 10/06/19 10:48 Capillary blood glucose measurement by glucometer (mas s/volume) 95 mg/dL 70-110 Capillary blood glucose measurement by g lucometer (mass/volume) - 10/08/19 15:37 Capillary blood glucose measurement by glucometer (mas s/volume) 182 mg/dL 70-110 Capillary blood glucose measurement by g lucometer (mass/volume) - 10/08/19 20:58 Capillary blood glucose measurement by glucometer (mas s/volume) 262 mg/dL 70-110 Capillary blood glucose measurement by g lucometer (mass/volume) - 10/09/19 05:15 Capillary blood glucose measurement by glucometer (mas s/volume) 142 mg/dL 70-110 Capillary blood glucose measurement by g lucometer (mass/volume) - 10/09/19 10:35 Capillary blood glucose measurement by glucometer (mas s/volume) 219 mg/dL 70-110 Capillary blood glucose measurement by g lucometer (mass/volume) - 10/09/19 15:50 Capillary blood glucose measurement by glucometer (mas s/volume) 213 mg/dL 70-110 Capillary blood glucose measurement by g lucometer (mass/volume) - 10/09/19 19:47 Capillary blood glucose measurement by glucometer (mas s/volume) 193 mg/dL 70-110 Capillary blood glucose measurement by g lucometer (mass/volume) - 10/10/19 05:09 Capillary blood glucose measurement by glucometer (mas s/volume) 141 mg/dL 70-110 Complete blood count (CBC) with automate d white blood cell (WBC) differential - 10/10/19 05:20 Blood leukocytes automated count (number/volume) 6.4 10*3/uL 4.3-11.0 Blood erythrocytes automated count (number/volume) 4.51 10*6/uL 4.35-5.85 Venous blood hemoglobin measurement (mass/volume) 10.9 g/dL 11.5-16.0 Blood hematocrit (volume fraction) 36 % 35-52 Automated erythrocyte mean corpuscular volume 80 [ foz_us] 80-99 Automated erythrocyte mean corpuscular h emoglobin (mass per erythrocyte) 24 pg 25-34 Automated erythrocyte mean corpuscular h emoglobin concentration measurement (mass/volume) 30 g/dL 32-36 Automated erythrocyte distribution width ratio 26. 5 % 10.0- 14.5 Automated blood platelet count (count/volume) 204 10*3/uL 130-400 Automated blood platelet mean volume measurement 9.8 [foz_us] 7.4-10.4 Automated blood neutrophils/100 leukocytes 58 % 42-75 Automated blood lymphocytes/100 leukocytes 28 % 12-44 Blood monocytes/100 leukocytes 11 % 0-12 Automated blood eosinophils/100 leukocytes 3 % 0-10 Automated blood basophils/100 leukocytes 1 % 0-10 Blood neutrophils automated count (number/volume) 3.7 10*3 1.8-7.8 Blood lymphocytes automated count (number/volume) 1.8 10*3 1.0-4.0 Blood monocytes automated count (number/volume) 0. 7 10*3 0.0-1.0 Automated eosinophil count 0.2 10*3/uL 0 .0-0.3 Automated blood basophil count (count/volume) 0.0 10*3/uL 0.0-0.1 Comprehensive metabolic panel - 10/10/19 05:20 Serum or plasma sodium measurement (moles/volume) 139 mmol/L 135-145 Serum or plasma potassium measurement (moles/volume) 4.6 mmol/L 3.6-5.0 Serum or plasma chloride measurement (moles/volume) 101 mmol/L 98-107 Carbon dioxide 25 mmol/L 21-32 Serum or plasma anion gap determination (moles/volume) 13 mmol/L 5-14 Serum or plasma urea nitrogen measurement (mass/volume ) 29 mg/dL 7-18 Serum or plasma creatinine measurement (mass/volume) 2.21 mg/dL 0.60-1.30 Serum or plasma urea nitrogen/creatinine mass ratio 13 NRG Serum or plasma creatinine measurement w ith calculation of estimated glomerular filtration rate 21 NRG Serum or plasma glucose measurement (mass/volume) 142 mg/dL 70-105 Serum or plasma calcium measurement (mass/volume) 9.3 mg/dL 8.5-10.1 Serum or plasma total bilirubin measurement (mass/volu me) 0.7 mg/dL 0.1-1.0 Serum or plasma alkaline phosphatase ghanshyam surement (enzymatic activity/volume) 82 U/L 40-136 Serum or plasma aspartate aminotransfera se measurement (enzymatic activity/volume) 16 U/L 5-34 Serum or plasma alanine aminotransferase measurement (enzymatic activity/volume) 9 U/L 0-55 Serum or plasma protein measurement (mass/volume) 5.9 g/dL 6.4-8.2 Serum or plasma albumin measurement (mass/volume) 3.0 g/dL 3.2-4.5 CALCIUM CORRECTED 10.1 mg/dL 8.5-10.1 Capillary blood glucose measurement by g lucometer (mass/volume) - 10/10/19 10:15 Capillary blood glucose measurement by glucometer (mas s/volume) 253 mg/dL 70-110 Complete blood count (CBC) with automate d white blood cell (WBC) differential - 12/01/19 18:30 Blood leukocytes automated count (number/volume) 10.8 10*3/uL 4.3-11.0 Blood erythrocytes automated count (number/volume) 4.65 10*6/uL 4.35-5.85 Venous blood hemoglobin measurement (mass/volume) 12.2 g/dL 11.5-16.0 Blood hematocrit (volume fraction) 37 % 35-52 Automated erythrocyte mean corpuscular volume 80 [ foz_us] 80-99 Automated erythrocyte mean corpuscular h emoglobin (mass per erythrocyte) 26 pg 25-34 Automated erythrocyte mean corpuscular h emoglobin concentration measurement (mass/volume) 33 g/dL 32-36 Automated erythrocyte distribution width ratio 18. 5 % 10.0- 14.5 Automated blood platelet count (count/volume) 227 10*3/uL 130-400 Automated blood platelet mean volume measurement 9.1 [foz_us] 7.4-10.4 Automated blood neutrophils/100 leukocytes 77 % 42-75 Automated blood lymphocytes/100 leukocytes 13 % 12-44 Blood monocytes/100 leukocytes 10 % 0-12 Automated blood eosinophils/100 leukocytes 1 % 0-10 Automated blood basophils/100 leukocytes 0 % 0-10 Blood neutrophils automated count (number/volume) 8.3 10*3 1.8-7.8 Blood lymphocytes automated count (number/volume) 1.4 10*3 1.0-4.0 Blood monocytes automated count (number/volume) 1. 1 10*3 0.0-1.0 Automated eosinophil count 0.1 10*3/uL 0 .0-0.3 Automated blood basophil count (count/volume) 0.0 10*3/uL 0.0-0.1 Comprehensive metabolic panel - 12/01/19 18:30 Serum or plasma sodium measurement (moles/volume) 135 mmol/L 135-145 Serum or plasma potassium measurement (moles/volume) 4.4 mmol/L 3.6-5.0 Serum or plasma chloride measurement (moles/volume) 103 mmol/L 98-107 Carbon dioxide 21 mmol/L 21-32 Serum or plasma anion gap determination (moles/volume) 11 mmol/L 5-14 Serum or plasma urea nitrogen measurement (mass/volume ) 27 mg/dL 7-18 Serum or plasma creatinine measurement (mass/volume) 1.49 mg/dL 0.60-1.30 Serum or plasma urea nitrogen/creatinine mass ratio 18 NRG Serum or plasma creatinine measurement w ith calculation of estimated glomerular filtration rate 34 NRG Serum or plasma glucose measurement (mass/volume) 151 mg/dL 70-105 Serum or plasma calcium measurement (mass/volume) 8.2 mg/dL 8.5-10.1 Serum or plasma total bilirubin measurement (mass/volu me) 1.1 mg/dL 0.1-1.0 Serum or plasma alkaline phosphatase ghanshyam surement (enzymatic activity/volume) 133 U/L 40-136 Serum or plasma aspartate aminotransfera se measurement (enzymatic activity/volume) 21 U/L 5-34 Serum or plasma alanine aminotransferase measurement (enzymatic activity/volume) 7 U/L 0-55 Serum or plasma protein measurement (mass/volume) 5.6 g/dL 6.4-8.2 Serum or plasma albumin measurement (mass/volume) 2.4 g/dL 3.2-4.5 CALCIUM CORRECTED 9.5 mg/dL 8.5-10.1 Blood lactic acid measurement (moles/vol ume) - 12/01/19 18:30 Blood lactic acid measurement (moles/volume) 1.21 mmol/L 0.50-2.00 Bacterial blood culture - 12/01/19 18:30 Bacterial blood culture NG NRG Bacterial blood culture - 12/01/19 18:34 Bacterial blood culture NG NRG Complete urinalysis with reflex to cultu re - 12/01/19 22:30 Urine color determination YELLOW NRG Urine clarity determination CLEAR NR G Urine pH measurement by test strip 8.0 5-9 Specific gravity of urine by test [...] 1.0 Urine leukocyte esterase detection by dipstick 3+ NEGATIVE Automated urine sediment erythrocyte cou nt by microscopy (number/high power field) [HPF] NRG Automated urine sediment leukocyte count by microscopy (number/high power field) [HPF] NRG Bacteria detection in urine sediment by light microsco py LARGE NRG Crystals detection in urine sediment by light microsco py PRESENT NRG Casts detection in urine sediment by light microscopy NONE NRG Mucus detection in urine sediment by light microscopy NEGATIVE NRG Complete urinalysis with reflex to culture CULTURE PENDING NRG Amorphous sediment detection in urine sediment by ligh t microscopy MOD PARIS PHOSPHATE NRG Bacterial urine culture - 12/01/19 22:30 Bacterial urine culture [id number] NRG COLONY COUNT >100,000/ML NRG SUSCEPTIBILITY SUSCEPTIBILITY REPORTED 12/03 10:15 NRG RAPID ID PRELIM REPORT VCP 12/01 7:30 N RG ID CONFIRMATION RML REPORTED ID 12/02 14:05 NRG Dirithromycin susceptibility test by dis k diffusion - 12/01/19 22:30 Gentamicin susceptibility test by minimum inhibitory c oncentration <= NRG Trimethoprim/sulfamethoxazole susceptibi lity test by minimum inhibitoryconcentration R NRG Levofloxacin susceptibility test by minimum inhibitory [...] and clavulanate potassium susc CHERRY = NRG Capillary blood glucose measurement by g lucometer (mass/volume) - 12/02/19 06:27 Capillary blood glucose measurement by glucometer (mas s/volume) 170 mg/dL 70-110 Capillary blood glucose measurement by g lucometer (mass/volume) - 12/02/19 10:51 Capillary blood glucose measurement by glucometer (mas s/volume) 263 mg/dL 70-110 Capillary blood glucose measurement by g lucometer (mass/volume) - 12/02/19 15:47 Capillary blood glucose measurement by glucometer (mas s/volume) 138 mg/dL 70-110 Capillary blood glucose measurement by g lucometer (mass/volume) - 12/02/19 20:20 Capillary blood glucose measurement by glucometer (mas s/volume) 243 mg/dL 70-110 Whole blood basic metabolic panel - 11/17 01/06 04:43 Serum or plasma sodium measurement (moles/volume) 135 mmol/L 135-145 Serum or plasma potassium measurement (moles/volume) 3.9 mmol/L 3.6-5.0 Serum or plasma chloride measurement (moles/volume) 101 mmol/L 98-107 Carbon dioxide 24 mmol/L 21-32 Serum or plasma anion gap determination (moles/volume) 10 mmol/L 5-14 Serum or plasma urea nitrogen measurement (mass/volume ) 33 mg/dL 7-18 Serum or plasma creatinine measurement (mass/volume) 1.72 mg/dL 0.60-1.30 Serum or plasma urea nitrogen/creatinine mass ratio 19 NRG Serum or plasma creatinine measurement w ith calculation of estimated glomerular filtration rate 29 NRG Serum or plasma glucose measurement (mass/volume) 192 mg/dL 70-105 Serum or plasma calcium measurement (mass/volume) 8.0 mg/dL 8.5-10.1 Capillary blood glucose measurement by g lucometer (mass/volume) - 12/03/19 11:50 Capillary blood glucose measurement by glucometer (mas s/volume) 250 mg/dL 70-110 Capillary blood glucose measurement by g lucometer (mass/volume) - 12/03/19 17:08 Capillary blood glucose measurement by glucometer (mas s/volume) 210 mg/dL 70-110 Capillary blood glucose measurement by g lucometer (mass/volume) - 12/03/19 21:12 Capillary blood glucose measurement by glucometer (mas s/volume) 202 mg/dL 70-110 Capillary blood glucose measurement by g lucometer (mass/volume) - 12/04/19 07:24 Capillary blood glucose measurement by glucometer (mas s/volume) 158 mg/dL 70-110 Capillary blood glucose measurement by g lucometer (mass/volume) - 12/04/19 11:34 Capillary blood glucose measurement by glucometer (mas s/volume) 269 mg/dL 70-110 Capillary blood glucose measurement by g lucometer (mass/volume) - 12/04/19 16:18 Capillary blood glucose measurement by glucometer (mas s/volume) 241 mg/dL 70-110 Capillary blood glucose measurement by g lucometer (mass/volume) - 12/04/19 20:54 Capillary blood glucose measurement by glucometer (mas s/volume) 290 mg/dL 70-110 Whole blood basic metabolic panel - 11/17 03/08 04:10 Serum or plasma sodium measurement (moles/volume) 126 mmol/L 135-145 Serum or plasma potassium measurement (moles/volume) 4.4 mmol/L 3.6-5.0 Serum or plasma chloride measurement (moles/volume) 96 mmol/L 98-107 Carbon dioxide 20 mmol/L 21-32 Serum or plasma anion gap determination (moles/volume) 10 mmol/L 5-14 Serum or plasma urea nitrogen measurement (mass/volume ) 40 mg/dL 7-18 Serum or plasma creatinine measurement (mass/volume) 1.99 mg/dL 0.60-1.30 Serum or plasma urea nitrogen/creatinine mass ratio 20 NRG Serum or plasma creatinine measurement w ith calculation of estimated glomerular filtration rate 24 NRG Serum or plasma glucose measurement (mass/volume) 217 mg/dL 70-105 Serum or plasma calcium measurement (mass/volume) 7.8 mg/dL 8.5-10.1 Capillary blood glucose measurement by g lucometer (mass/volume) - 12/05/19 05:44 Capillary blood glucose measurement by glucometer (mas s/volume) 217 mg/dL 70-110 Encounters ACCT No. Visit Date/Time Discharge Status Pt. Type Provider Facility Loc./Unit Complaint [id number] 09/29/2019 11:30:00 11:30:00 DIS Inpatient KIMMY HANSON DO [facility] IRF DEBILITY [id number] 09/23/2019 17:06:00 11:37:00 DIS Inpatient CRIS WALDEN MD [facility] 4TH UTI,WEAKNESS [id number] 07/29/2019 12:36:00 12:40:00 DIS Inpatient CRIS WALDEN MD [facility] 4TH SWB:UTI [id number] 07/25/2019 13:00:00 12:13:00 DIS Inpatient MARGIE CANDELARIO KIMMY [facility] 4TH ACUTE DIZZINESS,PROBABL E LABYRINTHITIS [id number] 07/21/2019 12:39:00 23:59:59 CLS Outpatient JOE ROBERTSON MD [facility] LAB SKIN LESSIONS [id number] 07/19/2019 12:40:00 23:59:59 CLS Outpatient LOGAN BOLIVAR APRN [facility] LAB ANEMIA [id number] 07/12/2019 10:56:00 23:59:59 CLS Outpatient JOE ROBERTSON MD [facility] LAB ANEMIA [id number] 07/06/2019 17:03:00 19:45:00 DIS Outpatient JARROD DAVIS [facility] SDC VOLUME DEPLETIO N [id number] 06/23/2019 15:18:00 23:59:59 CLS Outpatient JOE ROBERTSON MD [facility] RAD PNEUMONIA [id number] 06/03/2019 12:28:00 12:00:00 DIS Inpatient CRIS WALDEN MD [facility] 4TH SYNCOPAL EPISODE;PNA;SE PSIS [id number] 06/03/2019 10:00:00 23:59:59 CLS Outpatient ZOLTAN VERMA DO [facility] RAD ABD WALL SEROMA [id number] 06/03/2019 09:08:00 23:59:59 CLS Outpatient JOE ROBERTSON MD [facility] RAD F/U PNEUMONIA [id number] 05/28/2019 13:41:00 17:19:00 DIS Emergency MOIRA HEART MD Via [facility] ER POST OP DRAININ G IN GROIN [id number] 05/07/2019 14:37:00 15:35:00 DIS Inpatient CRIS WALDEN MD [facility] CSD ELEVATED TROPONIN,GENER AL WEAKNESS,UTI [id number] 05/02/2019 23:00:00 15:40:00 DIS Inpatient ANGEL MCDOWELL MD [facility] CSD HEART FAILURE;HYPOXIA [id number] 04/05/2019 17:24:00 19:30:00 DIS Inpatient CRIS WALDEN MD [facility] ICU AFIB, RVR, HYPOTENSION [id number] 03/17/2019 13:36:00 23:59:59 CLS Preadmit ANTHONY GARZA [facility] RAD SCREENING [id number] 03/17/2019 10:10:00 23:59:59 CLS Outpatient ANTHONY GARZA V [facility] ONC [id number] 03/11/2019 10:36:00 13:25:00 DIS Outpatient LOGAN BOLIVAR APRN [facility] SDC DEHYDRATION [id number] 03/02/2019 17:20:00 13:06:00 DIS Inpatient ANALIA WARD MD [facility] 4TH COLITIS,GASTROENTERITIS ,SHOCK AND SEPSIS,DEHYDRATI [id number] 02/23/2019 12:45:00 23:59:59 CLS Outpatient JOE ROBERTSON MD [facility] RAD COUGH [id number] 02/02/2019 16:50:00 12:40:00 DIS Inpatient ANALIA WARD MD [facility] 4TH DEHYDRATION,ELEVATED TR OPONIN,CKD STAGE IV [id number] 12/31/2018 07:24:00 10:50:00 DIS Outpatient AMADEO BARRETT MD [facility] ENDO DYSPHAGIA [id number] 12/28/2018 05:50:00 23:59:59 CLS Outpatient AMADEO BARRETT MD [facility] PREOP EGD [id number] 12/27/2018 14:17:00 23:59:59 CLS Outpatient DIMPLE NOVOA MD [facility] CARD CAROTID ARTERY STENOSIS,CAD,HYPERTENSION [id number] 12/03/2018 09:52:00 14:18:00 DIS Outpatient SKIP KERN APRN [facility] REHAB GENERAL WEAKNES S [id number] 12/08/2018 15:19:00 23:59:59 CLS Outpatient JOE ROBERTSON MD [facility] LAB BURNING IN URINATION [id number] 06/16/2018 06:35:00 018 23:59:59 CLS Outpatient SOMEMR ROJAS, DIMPLE Soliman [facility] CATH NON HEALING WOUND,PAD,C AD,HTN [id number] 06/14/2018 12:32:00 018 23:59:59 CLS Outpatient SKIP KERN APRN [facility] RAD CHRONIC KIDNEY DISEASE, STAGE 3 [id number] 04/28/2018 10:02:00 018 23:59:59 CLS Outpatient NAOMY KINGP [facility] RAD SCREENING [id number] 03/16/2018 16:45:00 018 23:59:59 CLS Preadmit NAOMY KING GROUP RESERVATIONS COORDINATOR [facility] RAD SCREENING MAMMOGRAM,XIMENA AST CANCER [id number] 03/16/2018 15:00:00 018 23:59:59 CLS Outpatient ANTHONY GARZA V [facility] ONC [id number] 02/03/2018 15:00:00 018 11:25:00 DIS Inpatient XIAO ROJAS, PRISCILLA Carr [facility] 4TH UTI HYPOTENSION [id number] 01/28/2018 12:48:00 018 23:59:59 CLS Outpatient JARROD DAVIS [facility] RAD LT KNEE PAIN,LT KNEE SWELLING [id number] 01/27/2018 13:15:00 018 23:59:59 CLS Preadmit VANGIE MOTT MD [facility] ENDO DYSPHAGIA [id number] 01/21/2018 05:39:00 23:59:59 CLS Outpatient VANGIE MOTT MD [facility] PREOP EGD [id number] 12/22/2017 21:23:00 018 13:30:00 DIS Inpatient JOE ROBERTSON MD [facility] 4TH NEW ONSET AFIB, ATYPICA L CP R/O ACS, HYPOXIA [id number] 09/23/2017 08:17:00 03/08/2 018 08:35:00 DIS Outpatient DIMPLE NOVOA MD [facility] CATH ABNORMAL BARRY,PVD,CAD [id number] 09/10/2017 13:53:00 018 23:59:59 CLS Outpatient DENIS WEAVER NP-C [facility] RAD N18.3 CHRONIC KIDNEY DI SEASE STAGE 3 [id number] 09/07/2017 14:05:00 018 23:59:59 CLS Preadmit DIMPLE NOVOA MD [facility] CARD I25.10 CAD [id number] 08/13/2017 09:15:00 018 23:59:59 CLS Preadmit ANTHONY GARZA [facility] RAD Z12.31 [id number] 08/09/2017 14:46:00 018 18:00:00 DIS Emergency DARYL PIEDRA APRN [facility] ER DIARRHEA/COLD/FLU SYMPT OMS [id number] 03/12/2017 09:52:00 017 23:59:59 CLS Outpatient ANTHONY GARZA V [facility] ONC [id number] 02/11/2017 07:44:00 017 23:59:59 CLS Outpatient JOE ROBERTSON MD [facility] RAD RT THYROID MASS [id number] 01/27/2017 10:41:00 017 23:59:59 CLS Outpatient JOE ROBERTSON MD [facility] CARD THYROID NODULE [id number] 01/26/2017 15:00:00 017 23:59:59 CLS Preadmit JOE ROBERTSON MD [facility] CARD THYROID NODULE [id number] 01/08/2017 11:10:00 017 23:59:59 CLS Outpatient JOE ROBERTSON MD [facility] CARD THYROID NODULE [id number] 12/26/2016 07:30:00 017 11:45:00 DIS Outpatient DIMPLE NOVOA MD [facility] CATH ABN STRESS TEST,CP, HTN ,HLP,DM [id number] 12/24/2016 10:48:00 017 23:59:59 CLS Outpatient PAULO DIXON [facility] CARD CAD I25.10 [id number] 12/17/2016 12:08:00 017 23:59:59 CLS Outpatient ANUP SULTANA GROUP RESERVATIONS COORDINATOR [facility] RAD THYROID NODULE [id number] 08/12/2016 12:12:00 017 23:59:59 CLS Outpatient NAOMY KINGP [facility] RAD SCREENING [id number] 06/06/2016 12:58:00 016 23:59:59 CLS Outpatient DESTINEE SULTANA DO [facility] RAD THYROID NODULE [id number] 02/20/2016 12:58:00 016 23:59:59 CLS Outpatient NAOMY KINGP [facility] ONC [id number] 02/01/2016 08:32:00 016 23:59:59 CLS Outpatient DIMPLE NOVOA MD [facility] RAD CAROTID STENOSIS,DIZZIN ESS [id number] 01/04/2016 11:01:00 016 23:59:59 CLS Outpatient DIMPLE NOVOA MD [facility] RAD CAROTID STENOSIS [id number] 12/05/2015 14:52:00 016 17:54:00 DIS Inpatient JOE ROBERTSON MD Via [facility] 4TH JARA,VERTIGO,URINARY TRA CT INFECTION [id number] 11/22/2015 08:50:00 016 12:00:00 DIS Outpatient JOE ROBERTSON MD [facility] WOUNDCARE [id number] 11/14/2015 07:23:00 016 23:59:59 CLS Outpatient DESTINEE VANG MD [facility] CARD CAD [id number] 10/23/2015 08:46:00 23:59:59 CLS Outpatient JOE ROBERTSON MD [facility] RAD DIABETIC FOOT ULCER [id number] 10/05/2015 10:00:00 09:44:00 DIS Inpatient JOE ROBERTSON MD [facility] 4TH NAUSEA,VOMITING,DIAHERR A,BLOODY STOOL [id number] 10/03/2015 10:31:00 23:59:59 CLS Outpatient JOE ROBERTSON MD [facility] RAD SOB [id number] 09/25/2015 12:38:00 23:59:59 CLS Outpatient NAFISA CHRIS MD [facility] RAD MULTI NODULUAR GOITER [id number] 07/16/2015 16:14:00 23:59:59 CLS Outpatient JOE ROBERTSON MD [facility] LAB CDIFF, DIARHHEA [id number] 06/27/2015 06:32:00 23:59:59 CLS Outpatient JOE ROBERTSON MD [facility] LAB DIARRHEA [id number] 05/28/2015 21:30:00 23:59:59 CLS Outpatient JOE ROBERTSON MD [facility] LAB DIARRHEA [id number] 05/10/2015 20:05:00 21:32:00 DIS Emergency DENIS HAIDER DO Vi a [facility] ER L SIDE FACIAL DROOPING [id number] 05/10/2015 12:00:00 13:31:00 DIS Emergency ANGEL MCDOWELL MD Via [facility] ER FACIAL DROOPING/LEFT HUERTA ND NUMB [id number] 2015 13:56:00 23:59:59 CLS Outpatient ANUP SULTANA [facility] RAD DIFFICULTY SWAL LOWING THYROIDMEGALLY [id number] 02/19/2015 12:28:00 23:59:59 CLS Outpatient ANTHONY GARZA [facility] ONC [id number] 12/25/2014 16:05:00 015 14:46:00 DIS Inpatient DIMPLE NOVOA MD Via [facility] CSD [id number] 08/31/2014 09:11:00 015 23:59:59 CLS Outpatient NAOMY KING [facility] RAD [id number] 08/30/2014 13:10:00 015 23:59:59 CLS Outpatient JOE ROBERTSON MD [facility] LAB [id number] 08/21/2014 12:52:00 015 23:59:59 CLS Outpatient NAOMY KING [facility] ONC [id number] 08/08/2014 12:54:00 015 23:59:59 CLS Outpatient ANTHONY GARZA V ia [facility] RAD [id number] 01/30/2014 13:02:00 014 23:59:59 CLS Outpatient [id number] 11/09/2013 13:56:00 014 23:59:59 CLS Outpatient NAOMY KING GROUP RESERVATIONS COORDINATOR Via [facility] ONC [id number] 10/15/2013 18:23:00 014 20:38:00 DIS Emergency [id number] 07/25/2013 12:48:00 014 23:59:59 CLS Outpatient NAOMY KING [facility] RAD BREAST CA, ABN SONO [id number] 05/12/2013 14:47:00 23:59:59 CLS Outpatient [id number] 04/28/2013 15:16:00 23:59:59 CLS Outpatient [id number] 12/10/2012 10:57:00 013 00:01:00 DIS Outpatient [id number] 01/17/2013 12:08:00 23:59:59 CLS Outpatient [id number] 12/27/2012 12:00:00 013 23:59:59 CLS Outpatient [id number] 12/01/2019 16:15:[address] Inpatient WIN ROJAS, CRIS Carr [facility] 4TH UTI [id number] 09/26/2015 00:00:00 Document Registration [id number] 08/10/2015 13:28:00 Document Registration [id number] 12/25/2014 17:28:00 Document Registration
--- NOTE | 2019-12-05 15:34 | Physical Therapy Evaluation ---
PT Evaluation-General Medical Diagnosis Admission Date December 05, 2019 at 12:42 Medical Diagnosis: UTI, debility Onset Date: December 01, 2019 Therapy Diagnosis Therapy Diagnosis: impaired mobility, strength, endurance, balance Height/Weight Height (Feet): 5 Height (Inches): 6.00 Weight (Pounds): 223 Weight (Ounces): 0.5 Weight Bear Status Right Lower Extremity: Right Weight Bearing/Tolerated Left Lower Extremity: Left Weight Bearing/Tolerated Referral Physician: Alexandra Reason for Referral: Evaluation/Treatment Medical History Pertinent Medical History: Atrial Fib, CAD, CVA, DM, Heart Failure, HTN, [place], Neuropathy Reviewed History: Yes Social History Home: Single Level Current Living Status: Other Family Entry Into Home: Ramp Prior Prior Level of Function SCALE: Activities may be completed with or without assistive devices. 8-Aiwqlbvnuh-flgelsa completes the activity by him/herself with no assistance from a helper. 5-Set-up or Clean-up Assistance-helper sets up or cleans up; patient completes activity. [place] assists only prior to or following the activity. 4-Supervision or Touching Assistance-helper provides verbal cues and/or touching/steadying and/or contact guard assistance as patient completes activity. Assistance may be provided throughout the activity or intermittently. 3-Partial/Moderate Assistance-helper does LESS THAN HALF the effort. [place] lifts, holds or supports trunk or limbs, but provides less than half the effort. 2-Substantial/Maximal Assistance-helper does MORE THAN HALF the effort. [place] lifts or holds trunk or limbs and provides more than half the effort. 0-Hbacbuwyk-yhgbja does ALL the effort. Patient does none of the effort to complete the activity. Or, the assistance of 2 or more helpers is required for the patient to complete the activity. If activity was not attempted, code reason: 7-Patient Refused. 9-Not Applicable-not attempted and the patient did not perform the activity before the current illness, exacerbation or injury. 10-Not Attempted due to Environmental Limitations-(lack of equipment, weather restraints, etc.). 88-Not Attempted due to Medical Conditions or Safety Concerns. Bed Mobility: 3 Transfers (B,C,W/C): 3 Gait: 2 Prior Devices Use: Manual wheelchair, Walker PT Evaluation-Current Subjective Patient in bed pre tx, agrees to PT, has no complaints of pain. Will be co- treating with OT after evaluation due to poor patient mobility, strength, endura nce, balance, the need to coordinate UE and LE during activity, decrease the risk of falls. Pt/Family Goals none stated Objective Patient Orientation: Person, Confused, Mumbles ROM/Strength ROM Lower Extremities limited due to poor strength and swelling Strength Lower Extremities 2/5 gross BLE Sensory Hearing: Functional Sensation Right Lower Extremit: Impaired Sensation Left Lower Extremity: Impaired Transfers Roll Left to Right (QC): 1 Sit to Lying (QC): 1 Lying to Sitting/Side of Bed(Q: 1 Sit to Stand (QC): 2 Chair/Wfa-nj-Hpgyf Xfer(QC): 2 Toilet Transfer (QC): 88 Car Transfer (QC): 88 Patient requires assist of 2 for bed mobility and to sit at the side of the bed, max assist to stand and transfer to recliner. Patient has had and is currently having a BM, she has to stand from the recliner several times for cleaning because she keeps having the BM. Hard max assist each time but she is able to help stand a little. She cannot take steps at this time. Gait Walk 10 feet (QC): 88 Walk 50 ft with 2 Turns(QC): 88 Walk 150 ft (QC): 88 Walking 10ft/uneven surface-QC: 88 Wheelchair Training Wheel 50 ft with 2 turns (QC): 88 Wheel 150 ft (QC): 88 Stairs 1 Step (curb) (QC): 88 4 Steps (QC): 88 12 Steps (QC): 88 Balance Sitting Static: Poor Sitting Dynamic: Poor Standing Static: Poor Standing Dynamic: Poor Picking up an Object (QC): 88 Assessment/Needs Patient has poor strength, endurance, balance, functional mobility. Patient is incontinent of BM, requires total assist to clean. PT co-treated with OT for 15 min. PT performed standing, transfers, standing for cleaning, OT performed cleaning, assist with transfer. Rehab Potential: Poor PT Skilled Nursing Goals Skilled Nursing Goals PT Skilled Nursing Goals Time Frame: December 12, 2019 Roll Left & Right (QC): 2 Sit to Lying (QC): 2 Lying-Sitting on Side/Bed(QC): 2 Sit to Stand (QC): 3 Chair/Rkh-wk-Zfhzg Xfer(QC): 3 Toilet Transfer (QC): 3 Car Transfer (QC): 2 Does the Patient Walk: No and Walking Goal IS indicated Walk 10 feet (QC): 2 Walk 50ft with 2 Turns (QC): 88 Walk 150 ft (QC): 88 Walking 10ft on Uneven Surface: 88 1 Step (curb) (QC): 88 4 Steps (QC): 88 12 Steps (QC): 88 Picking up an Object (QC): 88 Wheel 50 feet with 2 turns (QC: 88 Wheel 150 feet: 88 PT Plan Problem List Problem List: Activity Tolerance, Functional Strength, Safety, Balance, Gait, Transfer, Bed Mobility, ROM Treatment/Plan Treatment Plan: Continue Plan of Care Treatment Plan: Bed Mobility, Education, Functional Activity Sammie, Functional Strength, Gait, Safety, Therapeutic Exercise, Transfers Treatment Duration: December 12, 2019 Frequency: 6 times per week Estimated Hrs Per Day: .25 hour per day Patient and/or Family Agrees t: Yes Safety Risks/Education Patient Education: Transfer Techniques, Correct Positioning, Safety Issues Teaching Recipient: Patient Teaching Methods: Demonstration, Discussion Response to Teaching: Reinforcement Needed Discharge Recommendations Plan Patient will perform bed mobility and transfer training, balance and endurance training, functional strengthening, gait training, and education, to improve functional mobility and independence at home. Therapy Discharge Recommendati: Other, See Comments (NH) Time/GCodes Time In: 1500 Time Out: 1530 Total Billed Treatment Time: 30 Total Billed Treatment 1 visit EVM 15' FA 15' Co-treated with OT for 15' JAIME NUGENT PT December 05, 2019 15:34
--- NOTE | 2019-12-05 15:35 | Occupational Therapy Eval ---
OT Evaluation-General/PLF Medical Diagnosis Admission Date December 05, 2019 at 12:42 Medical Diagnosis: UTI/ debility Onset Date: December 05, 2019 Therapy Diagnosis Therapy Diagnosis: Decreased ADL function. Height/Weight Height (Feet): 5 Height (Inches): 6.00 Weight (Pounds): 223 Weight (Ounces): 0.5 Precautions Precautions/Isolations: Contact Isolation Referral Physician: Alexandra Referral Reason: Activity Tolerance, Self Care, Evaluation/Treatment, Strengthening/ROM Medical History Pertinent Medical History: Atrial Fib, CAD, CVA, DM, Heart Failure, HTN, [place], Neuropathy Reviewed History: Yes Social History Home: Single Level Current Living Status: Other Family Entry Into Home: Ramp ADL-Prior Level of Function SCALE: Activities may be completed with or without assistive devices. 4-Obxgbriocc-cvkdasz completes the activity by him/herself with no assistance from a helper. 5-Set-up or Clean-up Assistance-helper sets up or cleans up; patient completes activity. [place] assists only prior to or following the activity. 4-Supervision or Touching Assistance-helper provides verbal cues and/or touching/steadying and/or contact guard assistance as patient completes activity. Assistance may be provided throughout the activity or intermittently. 3-Partial/Moderate Assistance-helper does LESS THAN HALF the effort. [place] lifts, holds or supports trunk or limbs, but provides less than half the effort. 2-Substantial/Maximal Assistance-helper does MORE THAN HALF the effort. [place] lifts or holds trunk or limbs and provides more than half the effort. 0-Ktxtzfjaf-kmbhxv does ALL the effort. Patient does none of the effort to complete the activity. Or, the assistance of 2 or more helpers is required for the patient to complete the activity. If activity was not attempted, code reason: 7-Patient Refused. 9-Not Applicable-not attempted and the patient did not perform the activity before the current illness, exacerbation or injury. 10-Not Attempted due to Environmental Limitations-(lack of equipment, weather restraints, etc.). 88-Not Attempted due to Medical Conditions or Safety Concerns. ADL PLOF Comments Pt states she was residing at home, requiring 4 hours of assist for ADLs (pt states she was assisted in all tasks). When caregiver not present, pt's granddaughter who works from home able to assist. Pt states was utilizing w/c for fx mobility as she was unable to utilize 2WW due to increased foot drop. As pt receives assist for showering/ bathing, this will not be the main goal of OT sessions. Pt will benefit from strength/ endurance/ mobility training to increase QOL and increase ability to complete ADLs to max potential. Self Care: Dependent Functional Cognition: Independent DME/Equipment: Bath Chair, Grab Bars, Shower DME/Equipment Comments [address] Self: No OT Current Status Subjective Pt seen in bed. OT individual eval/ treat for 20 min. Pt denies pain, pt agrees to therapy. Aides just completed carlos care prior to entry. OT/ PT co-treat: 15 min during session to address dependent transfers and decreased energy/ strength. Co-treat rendered during session to address these hindrances to IND ADL activity.PT focuses on transfers and OT focuses on UE st rength and ADLs. Mental Status/Objective Patient Orientation: Person, Place, Situation Current Glasses/Contacts: Yes Hand Dominance: Right Upper Extremity ROM WFL BUE Upper Extremity Coordination WFL BUE Upper Extremity Sensation WFL BUE neuropathy BLE Upper Extremity Strength WFL BUE Edema: pitting edema bilateral LE ADL-Treatment Eating (QC): 6 Oral Hygiene (QC): 6 (per clinical judgment though denies at this time.) Shower/Bathe Self (QC): 2 (max A (pt requires assist with all areas other than abdomen/ upper thighs.) Upper Body Dressing (QC): 3 (mod A per clinical judgment.) Lower Body Dressing (QC): 1 (TD per clinical judgment) On/Off Footwear (QC): 1 (sock donning TD) Toileting Hygiene (QC): 1 (TD x2 to assist in transfer/ sit to stand and wiping.) Other Treatments OT eval. Pt provides hx. Pt states agreement to ADLs and ther ex. Pt sits EOB with max A x2 (TD). EOB balance poor. Pt sit to stand TD, stand pivot to recliner chair. Pt has BM upon stance, sit to stand 3x during clean-up (TD). Pt receives assist during day for all ADL tasks. As pt receives assist for showering/ bathing, this will not be the main goal of OT sessions. Pt will benefit from strength/ endurance/ mobility training to increase QOL and increase ability to complete ADLs to max potential. Pt left in recliner with all needs met, BLE elevated, call light within reach, pillow to support trunk. Education OT Patient Education: Correct positioning, Modified ADL techniques, Purpose of tx/functional activities, Safety issues, Transfer techniques Teaching Recipient: Patient Teaching Methods: Demonstration, Discussion Response to Teaching: Verbalize Understanding, Return Demonstration, Reinforcement Needed OT Prison Goals Prison Goals Time Frame: December 12, 2019 Eating (QC): 6 Oral Hygiene (QC): 6 Toileting Hygiene (QC): 2 Shower/Bathe Self (QC): 3 Upper Body Dressing (QC): 3 Lower Body Dressing (QC): 2 On/Off Footwear (QC): 3 Additional Goals: 1-Demonstrate ADL Tasks, 2-Verbalize Understanding, 3- ImproveStrength/Sammie 1=Demonstrate adherence to instructed precautions during ADL tasks. 2=Patient will verbalize/demonstrate understanding of assistive devices/modifications for ADL. 3=Patient will improve strength/tolerance for activity to enable patient to perform ADL's. OT Education/Plan Problem List/Assessment Assessment: Decreased Activ Tolerance, Decreased UE Strength, Dependent Transfers, Edema, Impaired Bed Mobility, Impaired Coordination, Impaired Funct Balance, Impaired I ADL's, Impaired Self-Care Skills Discharge Recommendations Plan/Recommendations: Continue POC Therapy Discharge Recommendati: 24 Hour Supervision, Bath Aide Treatment Plan/Plan of Care Treatment,Training & Education: Yes Patient would benefit from OT for education, treatment and training to promote independence in ADL's, mobility, safety and/or upper extremity function for ADL's. Plan of Care: ADL Retraining, Functional Mobility, UE Funct Exercise/Act Treatment Duration: December 12, 2019 Frequency: 5 times per week Estimated Hrs Per Day: .25 hour per day Agreement: Yes Rehab Potential: Fair Time/GCodes Start Time: 14:45 Stop Time: 13:20 Total Time Billed (hr/min): 35 Billed Treatment Time 1, EVM (15), ADL (20) PT/ OT co-treat 20 min. QUANG KING OTR December 05, 2019 15:35
[2019-12-05] MEDS: MEROPENEM 500 MG in WATER (STERILE) FOR INJECTION 10 ML IV SCH (17:13)
[2019-12-05] MEDS: inSUlin ASPART (NovoLOG) 1 UNIT/0.01 ML (CHARGE PER UNIT) SC SCH ×2 (17:13→21:44)
[2019-12-05] MEDS: LACTOBACILLUS ACIDOPHILUS (PROBIOTIC) CAPSULE PO SCH (17:14)
[2019-12-05 18:00] VITALS: BP 121/58
[2019-12-05] MEDS ORDERED: MEROPENEM 500 MG in WATER (STERILE) FOR INJECTION 10 ML IV SCH (18:00)
[2019-12-05] MEDS ORDERED: DOCUSATE SODIUM 100 MG (COLACE) CAP PO SCH (21:00)
[2019-12-05] MEDS ORDERED: SENNOSIDES 8.6 MG (SENOKOT) TAB PO SCH (21:00)
[2019-12-05] MEDS: APIXABAN 2.5 MG (ELIQUIS) TABLET PO SCH (21:44)
[2019-12-05] MEDS: SERTRALINE 50 MG (ZOLOFT) TABLET PO SCH (21:44)
[2019-12-06] MEDS: MEROPENEM 500 MG in WATER (STERILE) FOR INJECTION 10 ML IV SCH ×3 (03:25→17:24)
[2019-12-06 06:00] VITALS: BP 120/59
[2019-12-06] MEDS: inSUlin ASPART (NovoLOG) 1 UNIT/0.01 ML (CHARGE PER UNIT) SC SCH ×4 (06:39→21:05)
[2019-12-06] MEDS: LACTOBACILLUS ACIDOPHILUS (PROBIOTIC) CAPSULE PO SCH ×3 (08:32→17:24)
[2019-12-06] MEDS: CLOPIDOGREL 75 MG (PLAVIX) TABLET PO SCH (08:32)
[2019-12-06] MEDS: APIXABAN 2.5 MG (ELIQUIS) TABLET PO SCH ×2 (08:33→21:05)
[2019-12-06] MEDS: PANTOPRAZOLE 40 MG (PROTONIX) TAB PO SCH (08:33)
[2019-12-06] MEDS: TAMSULOSIN 0.4 MG (FLOMAX) CAP PO SCH (08:33)
[2019-12-06] MEDS: BETHANECHOL 25 MG (URECHOLINE) TAB PO SCH (08:33)
[2019-12-06] MEDS: TORSEMIDE 20 MG (DEMADEX) TAB PO SCH (08:49)
--- NOTE | 2019-12-06 09:41 | Physical Therapy Daily Note ---
PT Daily Note-Current Subjective Patient is in bed and agrees to PT. Mental Status Patient Orientation: Confused Transfers SCALE: Activities may be completed with or without assistive devices. 1-Ddwuribghq-jsaricu completes the activity by him/herself with no assistance from a helper. 5-Set-up or Clean-up Assistance-helper sets up or cleans up; patient completes activity. [place] assists only prior to or following the activity. 4-Supervision or Touching Assistance-helper provides verbal cues and/or touching/steadying and/or contact guard assistance as patient completes activity. Assistance may be provided throughout the activity or intermittently. 3-Partial/Moderate Assistance-helper does LESS THAN HALF the effort. [place] lifts, holds or supports trunk or limbs, but provides less than half the effort. 2-Substantial/Maximal Assistance-helper does MORE THAN HALF the effort. [place] lifts or holds trunk or limbs and provides more than half the effort. 2-Icwroiqso-xqugbo does ALL the effort. Patient does none of the effort to co mplete the activity. Or, the assistance of 2 or more helpers is required for the patient to complete the activity. If activity was not attempted, code reason: 7-Patient Refused. 9-Not Applicable-not attempted and the patient did not perform the activity before the current illness, exacerbation or injury. 10-Not Attempted due to Environmental Limitations-(lack of equipment, weather restraints, etc.). 88-Not Attempted due to Medical Conditions or Safety Concerns. Roll Left & Right (QC): 1 Lying to Sitting/Side of Bed(Q: 1 Sit to Stand (QC): 1 Chair/Gqh-st-Diaox Xfer(QC): 1 dependent assist x 2 with all mobility and patient is unable to sit EOB unassisted. Weight Bearing Right Lower Extremity: Right Weight Bearing/Tolerated Left Lower Extremity: Left Weight Bearing/Tolerated Exercises Supine Ex: Ankle pumps, Heel Slides, Straight leg raise Supine Reps: 10 (AAROM) Seated Therapy Exercises: Long arc quads Seated Reps: 10 (AAROM) Assessment Patient is up in recliner with needs met. Patient is very fatigued and continues to require dependent assist with all mobility. PT Learning And Development Intern Goals Learning And Development Intern Goals PT Learning And Development Intern Goals Time Frame: December 12, 2019 Roll Left & Right (QC): 2 Sit to Lying (QC): 2 Lying-Sitting on Side/Bed(QC): 2 Sit to Stand (QC): 3 Chair/Dhs-ee-Fzsrs Xfer(QC): 3 Toilet Transfer (QC): 3 Car Transfer (QC): 2 Does the Patient Walk: No and Walking Goal IS indicated Walk 10 feet (QC): 2 Walk 50ft with 2 Turns (QC): 88 Walk 150 ft (QC): 88 Walking 10ft on Uneven Surface: 88 1 Step (curb) (QC): 88 4 Steps (QC): 88 12 Steps (QC): 88 Picking up an Object (QC): 88 Wheel 50 feet with 2 turns (QC: 88 Wheel 150 feet: 88 PT Plan Treatment/Plan Treatment Plan: Continue Plan of Care Treatment Plan: Bed Mobility, Education, Functional Activity Sammie, Functional Strength, Gait, Safety, Therapeutic Exercise, Transfers Treatment Duration: December 12, 2019 Frequency: 6 times per week Estimated Hrs Per Day: .25 hour per day Patient and/or Family Agrees t: Yes Time/GCodes Time In: 845 Time Out: 908 Total Billed Treatment Time: 23 Total Billed Treatment 1 visit EX 15 min FA 8 min WOODY STARKEY PT December 06, 2019 09:41
--- NOTE | 2019-12-06 11:51 | Occupational Ther Daily Note ---
OT Current Status-Daily Note Subjective Pt sitting in chair, nods head when asked to participate in therapy. ADL-Treatment Pt agrees to complete grooming tasks. Pt washed face with SBA and increased time while seated in chair. Pt combed sides of hair with increased time, but required assist to comb back. Pt refused to complete oral care at this time. Attempted to have pt participate in UE ROM exercises. Pt completed 2-3 reps of elbow and wrist ROM with maximal verbal cues and then closed eyes and did not continue. Very minimal participation in UE activity. Pt sitting in chair with needs met after session. Therapy Code Descriptions/Definitions Functional [place] Measure: 0=Not Assessed/NA 4=Minimal Assistance 1=Total Assistance 5=Supervision or Setup 2=Maximal Assistance 6=Modified [place] 3=Moderate Assistance 7=Complete IndependenceSCALE: Activities may be completed with or without assistive devices. 9-Fgrvtfenqt-azhdrzp completes the activity by him/herself with no assistance from a helper. 5-Set-up or Clean-up Assistance-helper sets up or cleans up; patient completes activity. [place] assists only prior to or following the activity. 4-Supervision or Touching Assistance-helper provides verbal cues and/or touching/steadying and/or contact guard assistance as patient completes activity. Assistance may be provided throughout the activity or intermittently. 3-Partial/Moderate Assistance-helper does LESS THAN HALF the effort. [place] lifts, holds or supports trunk or limbs, but provides less than half the effort. 2-Substantial/Maximal Assistance-helper does MORE THAN HALF the effort. [place] lifts or holds trunk or limbs and provides more than half the effort. 8-Ijzbndcwx-gapqtp does ALL the effort. Patient does none of the effort to complete the activity. Or, the assistance of 2 or more helpers is required for the patient to complete the activity. If activity was not attempted, code reason: 7-Patient Refused. 9-Not Applicable-not attempted and the patient did not perform the activity before the current illness, exacerbation or injury. 10-Not Attempted due to Environmental Limitations-(lack of equipment, weather restraints, etc.). 88-Not Attempted due to Medical Conditions or Safety Concerns. OT [facility] Goals Adaptive Physical Education Teacher Goals Time Frame: December 12, 2019 Eating (QC): 6 Oral Hygiene (QC): 6 Toileting Hygiene (QC): 2 Shower/Bathe Self (QC): 3 Upper Body Dressing (QC): 3 Lower Body Dressing (QC): 2 On/Off Footwear (QC): 3 Additional Goals: 1-Demonstrate ADL Tasks, 2-Verbalize Understanding, 3-ImproveStrength/Sammie 1=Demonstrate adherence to instructed precautions during ADL tasks. 2=Patient will verbalize/demonstrate understanding of assistive devices/modifications for ADL. 3=Patient will improve strength/tolerance for activity to enable patient to perform ADL's. OT Education/Plan Discharge Recommendations Plan/Recommendations: Continue POC Treatment Plan/Plan of Care Patient would benefit from OT for education, treatment and training to promote independence in ADL's, mobility, safety and/or upper extremity function for ADL's. Plan of Care: ADL Retraining, Functional Mobility, UE Funct Exercise/Act Treatment Duration: December 12, 2019 Frequency: 5 times per week Estimated Hrs Per Day: .25 hour per day Agreement: Yes Rehab Potential: Fair Time/GCodes Start Time: 11:19 Stop Time: 11:34 Total Time Billed (hr/min): 15 Billed Treatment Time 1 visit, ADL(15minutes) ASHWINI MADERA OT December 06, 2019 11:51
[2019-12-06] MEDS ORDERED: CHOLESTYRAMINE 4 GM (QUESTRAN LITE, PREVALITE) PKT PO NR (15:15)
[2019-12-06] MEDS ORDERED: LOPERAMIDE 2 MG (IMODIUM) TABLET PO PRN (15:15)
[2019-12-06 17:11] VITALS: BP 100/61
[2019-12-06] MEDS: SERTRALINE 50 MG (ZOLOFT) TABLET PO SCH (21:05)
[2019-12-07] MEDS: MEROPENEM 500 MG in WATER (STERILE) FOR INJECTION 10 ML IV SCH ×3 (02:17→17:35)
[2019-12-07] MEDS: inSUlin ASPART (NovoLOG) 1 UNIT/0.01 ML (CHARGE PER UNIT) SC SCH ×4 (05:40→21:18)
[2019-12-07 05:54] VITALS: BP 105/54
[2019-12-07] MEDS: PANTOPRAZOLE 40 MG (PROTONIX) TAB PO SCH (08:25)
[2019-12-07] MEDS: TAMSULOSIN 0.4 MG (FLOMAX) CAP PO SCH (08:26)
[2019-12-07] MEDS: CLOPIDOGREL 75 MG (PLAVIX) TABLET PO SCH (08:26)
[2019-12-07] MEDS: APIXABAN 2.5 MG (ELIQUIS) TABLET PO SCH ×2 (08:26→21:18)
[2019-12-07] MEDS: LACTOBACILLUS ACIDOPHILUS (PROBIOTIC) CAPSULE PO SCH ×3 (08:26→17:34)
[2019-12-07] MEDS: TORSEMIDE 20 MG (DEMADEX) TAB PO SCH (09:10)
[2019-12-07] MEDS: CHOLESTYRAMINE 4 GM (QUESTRAN LITE, PREVALITE) PKT PO SCH (09:28)
--- NOTE | 2019-12-07 09:34 | Occupational Ther Daily Note ---
OT Current Status-Daily Note Subjective Pt lying in bed, eyes open though not answering questions or talking. Nrsg in room for medications. Mental Status/Objective Patient Orientation: Person Attachments: IV ADL-Treatment Therapy Code Descriptions/Definitions Functional [place] Measure: 0=Not Assessed/NA 4=Minimal Assistance 1=Total Assistance 5=Supervision or Setup 2=Maximal Assistance 6=Modified [place] 3=Moderate Assistance 7=Complete IndependenceSCALE: Activities may be completed with or without assistive devices. 9-Ffkqotqqdz-oifdtyq completes the activity by him/herself with no assistance from a helper. 5-Set-up or Clean-up Assistance-helper sets up or cleans up; patient completes activity. [place] assists only prior to or following the activity. 4-Supervision or Touching Assistance-helper provides verbal cues and/or touching/steadying and/or contact guard assistance as patient completes activity. Assistance may be provided throughout the activity or intermittently. 3-Partial/Moderate Assistance-helper does LESS THAN HALF the effort. [place] lifts, holds or supports trunk or limbs, but provides less than half the effort. 2-Substantial/Maximal Assistance-helper does MORE THAN HALF the effort. [place] lifts or holds trunk or limbs and provides more than half the effort. 9-Lvcuzpbam-lbwplv does ALL the effort. Patient does none of the effort to complete the activity. Or, the assistance of 2 or more helpers is required for the patient to complete the activity. If activity was not attempted, code reason: 7-Patient Refused. 9-Not Applicable-not attempted and the patient did not perform the activity before the current illness, exacerbation or injury. 10-Not Attempted due to Environmental Limitations-(lack of equipment, weather restraints, etc.). 88-Not Attempted due to Medical Conditions or Safety Concerns. Other Treatment [id number] would not verbalize when questions were asked about movement or pain. Pt required verbal and physical cues to reach toward side turning and to roll body. Assist given to sit EOB. Assist x2 for SPT. Pt able to reach and grasp items when handed to her though with limited shldr ROM. After session, pt sitting in recliner with call light/phone in reach. All needs met in room. [id number] sitting up in recliner. Assist to answer phone which pt requires assistance to position correctly to ear. Pt begins to cough and get nauseated. Pt able to hold onto basin and wipe mouth and nose to cleanse. Reported to nrsg and nrsg brought meds for nausea. After session, pt sitting in recliner with call light/phone in reach. All needs met in room. OT Supervisor [employer] Goals Supervisor [employer] Goals Time Frame: December 12, 2019 Eating (QC): 6 Oral Hygiene (QC): 6 Toileting Hygiene (QC): 2 Shower/Bathe Self (QC): 3 Upper Body Dressing (QC): 3 Lower Body Dressing (QC): 2 On/Off Footwear (QC): 3 Additional Goals: 1-Demonstrate ADL Tasks, 2-Verbalize Understanding, 3- ImproveStrength/Sammie 1=Demonstrate adherence to instructed precautions during ADL tasks. 2=Patient will verbalize/demonstrate understanding of assistive devices/modifications for ADL. 3=Patient will improve strength/tolerance for activity to enable patient to perform ADL's. OT Education/Plan Problem List/Assessment Assessment: Decreased Activ Tolerance, Dependent Transfers, Impaired Coordination, Impaired Funct Balance, Impaired Self-Care Skills, Restricted Funct UE ROM Discharge Recommendations Plan/Recommendations: Continue POC Treatment Plan/Plan of Care Patient would benefit from OT for education, treatment and training to promote independence in ADL's, mobility, safety and/or upper extremity function for ADL's. Plan of Care: ADL Retraining, Functional Mobility, UE Funct Exercise/Act Treatment Duration: December 12, 2019 Frequency: 5 times per week Estimated Hrs Per Day: .25 hour per day Agreement: Yes Rehab Potential: Fair Time/GCodes Start Time: 09:15 () Stop Time: 11:13 ([id number]) Total Time Billed (hr/min): 23 Billed Treatment Time 1 visit-FA 1 ([id number]) 1 visit-FA 1 ([id number]) KEMAR DEAN December 07, 2019 09:34
--- NOTE | 2019-12-07 09:40 | Physical Therapy Daily Note ---
PT Daily Note-Current Subjective Patient in bed pre tx, agrees to PT, no complaints of pain. Appearance Patient in recliner post tx with nurse call, phone, tray, all needs met, legs elevated and on pillow Mental Status Patient Orientation: Person, Unable to Assess Transfers SCALE: Activities may be completed with or without assistive devices. 0-Ssjundevpb-mateqaz completes the activity by him/herself with no assistance from a helper. 5-Set-up or Clean-up Assistance-helper sets up or cleans up; patient completes activity. [place] assists only prior to or following the activity. 4-Supervision or Touching Assistance-helper provides verbal cues and/or touching/steadying and/or contact guard assistance as patient completes activity. Assistance may be provided throughout the activity or intermittently. 3-Partial/Moderate Assistance-helper does LESS THAN HALF the effort. [place] lifts, holds or supports trunk or limbs, but provides less than half the effort. 2-Substantial/Maximal Assistance-helper does MORE THAN HALF the effort. [place] lifts or holds trunk or limbs and provides more than half the effort. 4-Zucfjygpi-sajwew does ALL the effort. Patient does none of the effort to complete the activity. Or, the assistance of 2 or more helpers is required for the patient to complete the activity. If activity was not attempted, code reason: 7-Patient Refused. 9-Not Applicable-not attempted and the patient did not perform the activity before the current illness, exacerbation or injury. 10-Not Attempted due to Environmental Limitations-(lack of equipment, weather restraints, etc.). 88-Not Attempted due to Medical Conditions or Safety Concerns. Roll Left & Right (QC): 1 Lying to Sitting/Side of Bed(Q: 1 Sit to Stand (QC): 1 Chair/Rau-ki-Xcmae Xfer(QC): 1 Patient stand pivot transfer to recliner from seated on the edge of the bed, dependent transfer, patient attempts to assist when standing but is retropulsive and mostly just extends her legs out in front of her making the transfer harder. Weight Bearing Right Lower Extremity: Right Weight Bearing/Tolerated Left Lower Extremity: Left Weight Bearing/Tolerated Exercises Seated Therapy Exercises: Ankle pumps, Long arc quads Seated Reps: 10 Patient performs the ankle pumps actively but LAQ with AAROM. Treatments bed mobility and transfers, LE exercises Assessment Current Status: Poor Progress dependent for mobility PT Scientific Systems Analyst Goals Fdc Goals PT Fdc Goals Time Frame: December 12, 2019 Roll Left & Right (QC): 2 Sit to Lying (QC): 2 Lying-Sitting on Side/Bed(QC): 2 Sit to Stand (QC): 3 Chair/Rip-me-Gargr Xfer(QC): 3 Toilet Transfer (QC): 3 Car Transfer (QC): 2 Does the Patient Walk: No and Walking Goal IS indicated Walk 10 feet (QC): 2 Walk 50ft with 2 Turns (QC): 88 Walk 150 ft (QC): 88 Walking 10ft on Uneven Surface: 88 1 Step (curb) (QC): 88 4 Steps (QC): 88 12 Steps (QC): 88 Picking up an Object (QC): 88 Wheel 50 feet with 2 turns (QC: 88 Wheel 150 feet: 88 PT Plan Problem List Problem List: Activity Tolerance, Functional Strength, Safety, Balance, Gait, Transfer, Bed Mobility, ROM Treatment/Plan Treatment Plan: Continue Plan of Care Treatment Plan: Bed Mobility, Education, Functional Activity Sammie, Functional Strength, Gait, Safety, Therapeutic Exercise, Transfers Treatment Duration: December 12, 2019 Frequency: 6 times per week Estimated Hrs Per Day: .25 hour per day Patient and/or Family Agrees t: Yes Safety Risks/Education Patient Education: Transfer Techniques, Correct Positioning, Safety Issues Teaching Recipient: Patient Teaching Methods: Demonstration, Discussion Response to Teaching: Reinforcement Needed Time/GCodes Time In: 904 Time Out: 914 Total Billed Treatment Time: 10 Total Billed Treatment 1 visit FA JAIME PEREZ PT December 07, 2019 09:40
[2019-12-07] MEDS: BETHANECHOL 25 MG (URECHOLINE) TAB PO SCH (10:11)
[2019-12-07] MEDS: ONDANSETRON 4 MG/2 ML (SDV) Z0FRAN IV PRN (11:13)
--- NOTE | 2019-12-07 11:47 | Progress Note - Hospitalist ---
Subjective HPI/CC On Admission Date Seen by Provider: December 07, 2019 Time Seen by Provider: 11:42 Subjective/Events-last exam Pt reports feeling well. laying in bed. States she is working with therapy. No new complaints. Objective Exam Vital Signs Vital Signs Date Time Temp Pulse Resp B/P (MAP) Pulse Ox O2 Delivery O2 Flow Rate FiO2 12/07/19 09:00 Room Air 12/07/19 05:54 36.4 81 18 105/54 (71) 93 Capillary Refill : Less Than 3 SecondsLess Than 3 Seconds General Appearance: No Apparent Distress, Chronically ill, Obese Respiratory: Lungs Clear, No Respiratory Distress Cardiovascular: Regular Rate, Rhythm, No Murmur Extremity: Pedal Edema Neurologic/Psychiatric: Alert, Oriented x3 Results/Procedures Lab Patient resulted labs reviewed. Assessment/Plan Assessment and Plan Assess & Plan/Chief Complaint UTI History of ESBL urine culture revealed ESBL Klebsiella oxytoca Continue meropenem Chronic diastolic heart failure Chronic kidney disease Hold diuretics Continue to monitor Type II diabetes mellitus Sliding scale insulin Atrial fibrillation Continue Eliquis and Coreg Hypertension Depression Coronary artery disease Continue home meds Weakness - Continue PT/OT DVT prophylaxis: Already receiving therapeutic anticoagulation Clinical Quality Measures DVT/VTE Risk/Contraindication: Risk Factor Score Per Nursin ANALIA WARD MD December 07, 2019 11:46
[2019-12-07 17:34] VITALS: BP 106/67
[2019-12-07] MEDS: SERTRALINE 50 MG (ZOLOFT) TABLET PO SCH (21:18)
[2019-12-07] MEDS: MICONAZOLE 2% POWDER (DESENEX AF) 90 GM TOP SCH (21:18)
[2019-12-08] MEDS: MEROPENEM 500 MG in WATER (STERILE) FOR INJECTION 10 ML IV SCH ×3 (02:30→18:20)
[2019-12-08 06:00] VITALS: BP 110/53
[2019-12-08] MEDS: inSUlin ASPART (NovoLOG) 1 UNIT/0.01 ML (CHARGE PER UNIT) SC SCH ×5 (06:01→20:21)
[2019-12-08] MEDS: LACTOBACILLUS ACIDOPHILUS (PROBIOTIC) CAPSULE PO SCH ×3 (08:42→18:20)
[2019-12-08] MEDS: CLOPIDOGREL 75 MG (PLAVIX) TABLET PO SCH (08:43)
[2019-12-08] MEDS: MICONAZOLE 2% POWDER (DESENEX AF) 90 GM TOP SCH ×2 (08:43→21:19)
[2019-12-08] MEDS: APIXABAN 2.5 MG (ELIQUIS) TABLET PO SCH ×2 (08:43→21:20)
[2019-12-08] MEDS: TAMSULOSIN 0.4 MG (FLOMAX) CAP PO SCH (08:43)
[2019-12-08] MEDS: PANTOPRAZOLE 40 MG (PROTONIX) TAB PO SCH (08:43)
[2019-12-08] MEDS: BETHANECHOL 25 MG (URECHOLINE) TAB PO SCH (08:46)
[2019-12-08] MEDS: TORSEMIDE 20 MG (DEMADEX) TAB PO SCH (08:46)
--- NOTE | 2019-12-08 09:59 | Occupational Ther Daily Note ---
OT Current Status-Daily Note Subjective Pt alert, lying in bed. Pt agrees to therapy after encouragement. Pt's movements are slow and require assistance to complete or initiate. No c/o pain. Mental Status/Objective Patient Orientation: Person, Place, Time, Situation Attachments: IV ADL-Treatment Therapy Code Descriptions/Definitions Functional [place] Measure: 0=Not Assessed/NA 4=Minimal Assistance 1=Total Assistance 5=Supervision or Setup 2=Maximal Assistance 6=Modified [place] 3=Moderate Assistance 7=Complete IndependenceSCALE: Activities may be completed with or without assistive devices. 3-Abolfkiuyl-atpnrox completes the activity by him/herself with no assistance from a helper. 5-Set-up or Clean-up Assistance-helper sets up or cleans up; patient completes activity. [place] assists only prior to or following the activity. 4-Supervision or Touching Assistance-helper provides verbal cues and/or touching/steadying and/or contact guard assistance as patient completes activity. Assistance may be provided throughout the activity or intermittently. 3-Partial/Moderate Assistance-helper does LESS THAN HALF the effort. [place] lifts, holds or supports trunk or limbs, but provides less than half the effort. 2-Substantial/Maximal Assistance-helper does MORE THAN HALF the effort. [place] lifts or holds trunk or limbs and provides more than half the effort. 4-Utjradiri-xhastw does ALL the effort. Patient does none of the effort to complete the activity. Or, the assistance of 2 or more helpers is required for the patient to complete the activity. If activity was not attempted, code reason: 7-Patient Refused. 9-Not Applicable-not attempted and the patient did not perform the activity before the current illness, exacerbation or injury. 10-Not Attempted due to Environmental Limitations-(lack of equipment, weather restraints, etc.). 88-Not Attempted due to Medical Conditions or Safety Concerns. Oral Hygiene (QC): 5 On/Off Footwear: 2 Other Treatment Co-treat with PT [id number] for skilled instruction and assist with mobility due to pt's medical complexity, decreased mobility and low activity tolerance. Assist x 2 for supine to EOB then assist to sit on EOB. Max A to don shoes. Assist x2 for SPT. Pt completed 10 reps 1 set of bicep curls. Decreased B shldr AROM. Set up with oral care, pt requires assist to squeeze toothpaste onto toothbrush then pt able to complete oral care. Assist when spitting out toothpaste due to pt not hitting basin with liquid. Pt able to use R hand to brush hair, did not attempt to use L until physically putting brush in hand. Assist needed to brush back of hair. After therapy, pt sitting in recliner with call light/phone in reach. All needs met in room. OT Longterm Goals Longterm Goals Time Frame: December 12, 2019 Eating (QC): 6 Oral Hygiene (QC): 6 Toileting Hygiene (QC): 2 Shower/Bathe Self (QC): 3 Upper Body Dressing (QC): 3 Lower Body Dressing (QC): 2 On/Off Footwear (QC): 3 Additional Goals: 1-Demonstrate ADL Tasks, 2-Verbalize Understanding, 3- ImproveStrength/Sammie 1=Demonstrate adherence to instructed precautions during ADL tasks. 2=Patient will verbalize/demonstrate understanding of assistive devices/modifications for ADL. 3=Patient will improve strength/tolerance for activity to enable patient to perform ADL's. OT Education/Plan Problem List/Assessment Assessment: Decreased Activ Tolerance, Decreased Safety Aware, Decreased UE Strength, Dependent Transfers, Impaired Bed Mobility, Impaired Coordination, Impaired Funct Balance, Impaired Self-Care Skills, Restricted Funct UE ROM Discharge Recommendations Plan/Recommendations: Continue POC Treatment Plan/Plan of Care Patient would benefit from OT for education, treatment and training to promote independence in ADL's, mobility, safety and/or upper extremity function for ADL's. Plan of Care: ADL Retraining, Functional Mobility, UE Funct Exercise/Act Treatment Duration: December 12, 2019 Frequency: 5 times per week Estimated Hrs Per Day: .25 hour per day Agreement: Yes Rehab Potential: Fair Time/GCodes Start Time: 09:15 Stop Time: 09:45 Total Time Billed (hr/min): 15 Billed Treatment Time 1 visit-FA 1 (15 min) co-treat with PT 30 min KEMAR DEAN December 08, 2019 09:59
--- NOTE | 2019-12-08 10:06 | Physical Therapy Daily Note ---
PT Daily Note-Current Subjective Patient in bed and reports incontinence. Transfers SCALE: Activities may be completed with or without assistive devices. 8-Udmeuoluko-wypxwkq completes the activity by him/herself with no assistance from a helper. 5-Set-up or Clean-up Assistance-helper sets up or cleans up; patient completes activity. [place] assists only prior to or following the activity. 4-Supervision or Touching Assistance-helper provides verbal cues and/or touching/steadying and/or contact guard assistance as patient completes activity. Assistance may be provided throughout the activity or intermittently. 3-Partial/Moderate Assistance-helper does LESS THAN HALF the effort. [place] lifts, holds or supports trunk or limbs, but provides less than half the effort. 2-Substantial/Maximal Assistance-helper does MORE THAN HALF the effort. [place] lifts or holds trunk or limbs and provides more than half the effort. 1-Jjxookgwe-rjtlzb does ALL the effort. Patient does none of the effort to complete the activity. Or, the assistance of 2 or more helpers is required for the patient to complete the activity. If activity was not attempted, code reason: 7-Patient Refused. 9-Not Applicable-not attempted and the patient did not perform the activity before the current illness, exacerbation or injury. 10-Not Attempted due to Environmental Limitations-(lack of equipment, weather restraints, etc.). 88-Not Attempted due to Medical Conditions or Safety Concerns. Roll Left & Right (QC): 1 Lying to Sitting/Side of Bed(Q: 1 Sit to Stand (QC): 1 Chair/Tua-yg-Tjfzj Xfer(QC): 1 dependent assist x 2 with all bed mobility and SPT. Patient is unable to sit EOB without assistance and is severely retropulsive in sit and stand. Weight Bearing Right Lower Extremity: Right Weight Bearing/Tolerated Left Lower Extremity: Left Weight Bearing/Tolerated Exercises Supine Ex: Ankle pumps, Heel Slides, Straight leg raise Supine Reps: 10 (AAROM) Seated Therapy Exercises: Long arc quads, Hip flexion Seated Reps: 10 (AAROM) Treatments PT and OT cotreat due to patient dependent LOF. PT addressed lower extremity exercises, bed mobility and transfers, while OT address transfers, ADL's and upper body exercises. Assessment Patient tolerates minimal activity and is making slow to no progress. Physician notified. PT and OT cotreat due to patient's dependent LOF. PT Jail Goals Maintenance Dispatcher Goals PT Maintenance Dispatcher Goals Time Frame: December 12, 2019 Roll Left & Right (QC): 2 Sit to Lying (QC): 2 Lying-Sitting on Side/Bed(QC): 2 Sit to Stand (QC): 3 Chair/Pws-up-Rchtw Xfer(QC): 3 Toilet Transfer (QC): 3 Car Transfer (QC): 2 Does the Patient Walk: No and Walking Goal IS indicated Walk 10 feet (QC): 2 Walk 50ft with 2 Turns (QC): 88 Walk 150 ft (QC): 88 Walking 10ft on Uneven Surface: 88 1 Step (curb) (QC): 88 4 Steps (QC): 88 12 Steps (QC): 88 Picking up an Object (QC): 88 Wheel 50 feet with 2 turns (QC: 88 Wheel 150 feet: 88 PT Plan Treatment/Plan Treatment Plan: Continue Plan of Care Treatment Plan: Bed Mobility, Education, Functional Activity Sammie, Functional Strength, Gait, Safety, Therapeutic Exercise, Transfers Treatment Duration: December 12, 2019 Frequency: 6 times per week Estimated Hrs Per Day: .25 hour per day Patient and/or Family Agrees t: Yes Time/GCodes Time In: 915 Time Out: 945 Total Billed Treatment Time: 15 Total Billed Treatment 1 visit EX 15 min (915-930 PT) OT (930-945) WOODY STARKEY PT December 08, 2019 10:06
[2019-12-08] MEDS: CHOLESTYRAMINE 4 GM (QUESTRAN LITE, PREVALITE) PKT PO SCH (10:22)
[2019-12-08 18:03] VITALS: BP 104/52
[2019-12-08] MEDS: MELATONIN 3 MG TABLET PO PRN (21:19)
[2019-12-08] MEDS: SERTRALINE 50 MG (ZOLOFT) TABLET PO SCH (21:20)
[2019-12-08] MEDS: hydrOXYzine (VISTARIL/ATARAX) 25 MG capsule/tablet PO PRN (21:20)
[2019-12-09] MEDS: MEROPENEM 500 MG in WATER (STERILE) FOR INJECTION 10 ML IV SCH (01:27)
[2019-12-09 05:00] VITALS: BP 101/58
[2019-12-09 05:43] LABS: HEMOGLOBIN 10.5 G/DL (11.5-16.0); MEAN PLATELET VOLUME 9.8 FL (7.4-10.4); RED CELL DISTRIBUTION WIDTH 18.9 % (10.0-14.5); WHITE BLOOD COUNT 7.3 10^3/uL (4.3-11.0)
[2019-12-09 05:54] LABS: POTASSIUM 4.7 MMOL/L (3.6-5.0)
[2019-12-09 05:55] LABS: CALCIUM 8.4 MG/DL (8.5-10.1)
[2019-12-09 05:59] LABS: CREATININE SERUM 2.39 MG/DL (0.60-1.30)
[2019-12-09] MEDS: inSUlin ASPART (NovoLOG) 1 UNIT/0.01 ML (CHARGE PER UNIT) SC SCH ×4 (06:00→20:45)
[2019-12-09] MEDS: CLOPIDOGREL 75 MG (PLAVIX) TABLET PO SCH (08:16)
[2019-12-09] MEDS: APIXABAN 2.5 MG (ELIQUIS) TABLET PO SCH ×2 (08:16→20:45)
[2019-12-09] MEDS: LACTOBACILLUS ACIDOPHILUS (PROBIOTIC) CAPSULE PO SCH ×3 (08:16→17:42)
[2019-12-09] MEDS: TORSEMIDE 20 MG (DEMADEX) TAB PO SCH (08:18)
[2019-12-09] MEDS: PANTOPRAZOLE 40 MG (PROTONIX) TAB PO SCH (08:19)
[2019-12-09] MEDS: MICONAZOLE 2% POWDER (DESENEX AF) 90 GM TOP SCH ×2 (08:20→20:45)
[2019-12-09] MEDS: TAMSULOSIN 0.4 MG (FLOMAX) CAP PO SCH (08:20)
[2019-12-09] MEDS: BETHANECHOL 25 MG (URECHOLINE) TAB PO SCH (08:20)
[2019-12-09] MEDS: CHOLESTYRAMINE 4 GM (QUESTRAN LITE, PREVALITE) PKT PO SCH (08:28)
--- NOTE | 2019-12-09 09:57 | Occupational Ther Daily Note ---
OT Current Status-Daily Note Subjective Pt sleeping in bed, would mumble for answers when asked and intermediate open eyes then close them. Pt did not acknowlede Mental Status/Objective Patient Orientation: Person (opened eyes to name), Non-Verbal/Aphasic (pt would mumble or not respond) Attachments: IV ADL-Treatment Therapy Code Descriptions/Definitions Functional [place] Measure: 0=Not Assessed/NA 4=Minimal Assistance 1=Total Assistance 5=Supervision or Setup 2=Maximal Assistance 6=Modified [place] 3=Moderate Assistance 7=Complete IndependenceSCALE: Activities may be completed with or without assistive devices. 4-Qnisyktfoy-bhfpasp completes the activity by him/herself with no assistance from a helper. 5-Set-up or Clean-up Assistance-helper sets up or cleans up; patient completes activity. [place] assists only prior to or following the activity. 4-Supervision or Touching Assistance-helper provides verbal cues and/or touching /steadying and/or contact guard assistance as patient completes activity. Assistance may be provided throughout the activity or intermittently. 3-Partial/Moderate Assistance-helper does LESS THAN HALF the effort. [place] lifts, holds or supports trunk or limbs, but provides less than half the effort. 2-Substantial/Maximal Assistance-helper does MORE THAN HALF the effort. [place] lifts or holds trunk or limbs and provides more than half the effort. 2-Zovrlgnum-kyteoe does ALL the effort. Patient does none of the effort to complete the activity. Or, the assistance of 2 or more helpers is required for the patient to complete the activity. If activity was not attempted, code reason: 7-Patient Refused. 9-Not Applicable-not attempted and the patient did not perform the activity before the current illness, exacerbation or injury. 10-Not Attempted due to Environmental Limitations-(lack of equipment, weather restraints, etc.). 88-Not Attempted due to Medical Conditions or Safety Concerns. Other Treatment When asked if pt would complete arm movements, pt mumbled affirmative then closed eyes. Pt required verbal/physical cues to continue with B UE ROM. Pt required APROM to PROM for elbow flex/ext, fist/straighten fingers and wrist flex/ext. Pt would fall asleep throughout session, not acknowledge that B UE movement was being completed. Pt repositioned at end of treatment for comfort and prevent skin breakdown. Call light/phone in reach. All needs met in room. OT Custodial Goals Custodial Goals Time Frame: December 12, 2019 Eating (QC): 6 Oral Hygiene (QC): 6 Toileting Hygiene (QC): 2 Shower/Bathe Self (QC): 3 Upper Body Dressing (QC): 3 Lower Body Dressing (QC): 2 On/Off Footwear (QC): 3 Additional Goals: 1-Demonstrate ADL Tasks, 2-Verbalize Understanding, 3-ImproveStrength/Sammie 1=Demonstrate adherence to instructed precautions during ADL tasks. 2=Patient will verbalize/demonstrate understanding of assistive devices/modifications for ADL. 3=Patient will improve strength/tolerance for activity to enable patient to perform ADL's. OT Education/Plan Problem List/Assessment Assessment: Decreased Activ Tolerance, Decreased Safety Aware, Decreased UE Strength, Dependent Transfers, Impaired Bed Mobility, Impaired Cognition, Impaired Coordination, Impaired Funct Balance, Impaired I ADL's, Impaired Self- Care Skills, Restricted Funct UE ROM Discharge Recommendations Plan/Recommendations: Continue POC Treatment Plan/Plan of Care Patient would benefit from OT for education, treatment and training to promote independence in ADL's, mobility, safety and/or upper extremity function for ADL's. Plan of Care: ADL Retraining, Functional Mobility, UE Funct Exercise/Act Treatment Duration: December 12, 2019 Frequency: 5 times per week Estimated Hrs Per Day: .25 hour per day Agreement: Yes Rehab Potential: Fair Time/GCodes Start Time: 09:38 Stop Time: 09:53 Total Time Billed (hr/min): 15 Billed Treatment Time 1 visit-EX 1 (15 min) KEMAR DEAN December 09, 2019 09:57
--- NOTE | 2019-12-09 10:18 | Physical Therapy Daily Note ---
PT Daily Note-Current Subjective Patient severely listless and lethargic and unable to actively participate with therapy. Mental Status Patient Orientation: Listless Attachments: [place]endez Catheter Transfers SCALE: Activities may be completed with or without assistive devices. 2-Buvlwzdsuo-iqibacb completes the activity by him/herself with no assistance from a helper. 5-Set-up or Clean-up Assistance-helper sets up or cleans up; patient completes activity. [place] assists only prior to or following the activity. 4-Supervision or Touching Assistance-helper provides verbal cues and/or touching/steadying and/or contact guard assistance as patient completes activity. Assistance may be provided throughout the activity or intermittently. 3-Partial/Moderate Assistance-helper does LESS THAN HALF the effort. [place] lifts, holds or supports trunk or limbs, but provides less than half the effort. 2-Substantial/Maximal Assistance-helper does MORE THAN HALF the effort. [place] lifts or holds trunk or limbs and provides more than half the effort. 5-Czhdeskvc-ruunpk does ALL the effort. Patient does none of the effort to complete the activity. Or, the assistance of 2 or more helpers is required for the patient to complete the activity. If activity was not attempted, code reason: 7-Patient Refused. 9-Not Applicable-not attempted and the patient did not perform the activity before the current illness, exacerbation or injury. 10-Not Attempted due to Environmental Limitations-(lack of equipment, weather restraints, etc.). 88-Not Attempted due to Medical Conditions or Safety Concerns. Roll Left & Right (QC): 1 (x 3) Lying to Sitting/Side of Bed(Q: 1 (x 3) Sit to Stand (QC): 1 (x 3) Chair/Btz-nk-Bcpjw Xfer(QC): 1 (x 3) patient incontinent BM during session requiring assistance of FOOD PRODUCTS TESTER to cleanse as therapy perform sit to stand transfer Weight Bearing Right Lower Extremity: Right Weight Bearing/Tolerated Left Lower Extremity: Left Weight Bearing/Tolerated Exercises Seated Therapy Exercises: Ankle pumps, Long arc quads Seated Reps: 15 (PROM) Assessment Patient very listless and leaning to right. Nursing is aware. Patient unable to actively participate and required dependent assist with all mobility. PT Garnett Feeder Goals Skilled Nursing Goals PT Skilled Nursing Goals Time Frame: December 12, 2019 Roll Left & Right (QC): 2 Sit to Lying (QC): 2 Lying-Sitting on Side/Bed(QC): 2 Sit to Stand (QC): 3 Chair/Hed-qt-Qsakx Xfer(QC): 3 Toilet Transfer (QC): 3 Car Transfer (QC): 2 Does the Patient Walk: No and Walking Goal IS indicated Walk 10 feet (QC): 2 Walk 50ft with 2 Turns (QC): 88 Walk 150 ft (QC): 88 Walking 10ft on Uneven Surface: 88 1 Step (curb) (QC): 88 4 Steps (QC): 88 12 Steps (QC): 88 Picking up an Object (QC): 88 Wheel 50 feet with 2 turns (QC: 88 Wheel 150 feet: 88 PT Plan Treatment/Plan Treatment Plan: Continue Plan of Care Treatment Plan: Bed Mobility, Education, Functional Activity Sammie, Functional Strength, Gait, Safety, Therapeutic Exercise, Transfers Treatment Duration: December 12, 2019 Frequency: 6 times per week Estimated Hrs Per Day: .25 hour per day Patient and/or Family Agrees t: Yes Time/GCodes Time In: 955 Time Out: 1010 Total Billed Treatment Time: 15 Total Billed Treatment 1 visit FA 15 min WOODY STARKEY PT December 09, 2019 10:18
--- NOTE | 2019-12-09 12:38 | Progress Note - Hospitalist ---
Subjective HPI/CC On Admission Date Seen by Provider: December 09, 2019 Time Seen by Provider: 12:36 Subjective/Events-last exam Pt sitting in chair. Sleepy. Somewhat listless. Does arouse and speak to me. She is oriented. She is not progressing well with therapy. I discussed my concerns with her and her granddaughter (POA) about lack of significant improvement. We discussed that with each illness she may not recover as well and may continue to decline. Granddaughter relays that she has been in the hospital almost every 2 months since last summer and pt is tired of being in the hospital. Objective Exam Vital Signs Vital Signs Date Time Temp Pulse Resp B/P (MAP) Pulse Ox O2 Delivery O2 Flow Rate FiO2 12/09/19 05:00 36.0 59 16 101/58 (72) 95 Room Air Capillary Refill : Less Than 3 SecondsLess Than 3 Seconds General Appearance: Chronically ill, Other (drowsy but easily woke to verbal stimuli and spoke) Respiratory: Lungs Clear, No Respiratory Distress Cardiovascular: Regular Rate, Rhythm Gastrointestinal: Normal Bowel Sounds, Soft Neurologic/Psychiatric: Alert, Oriented x3 Results/Procedures Lab Laboratory Tests 12/09/19 05:11 Patient resulted labs reviewed. Assessment/Plan Assessment and Plan Assess & Plan/Chief Complaint UTI History of ESBL urine culture revealed ESBL Klebsiella oxytoca Merrem to finish today Chronic diastolic heart failure Chronic kidney disease Creatinine up somewhat today, hold diuretics, BMP in AM Continue to monitor Type II diabetes mellitus Sliding scale insulin Atrial fibrillation CAD PAD SSS s/p pacemaker placement h/o aortic stenosis s/p TAVR Continue Eliquis and Coreg - Continue home meds Hypertension Depression Coronary artery disease Continue home meds Weakness - Continue PT/OT - Discussed importance of working with therapy to regain strength in order to go home DVT prophylaxis: Already receiving therapeutic anticoagulation Clinical Quality Measures DVT/VTE Risk/Contraindication: Risk Factor Score Per Nursin ANALIA WARD MD December 09, 2019 12:38
[2019-12-09 17:53] VITALS: BP 104/66
[2019-12-09] MEDS: SERTRALINE 50 MG (ZOLOFT) TABLET PO SCH (20:45)
[2019-12-10 05:08] VITALS: BP 98/63
[2019-12-10] MEDS: inSUlin ASPART (NovoLOG) 1 UNIT/0.01 ML (CHARGE PER UNIT) SC SCH ×4 (05:50→21:36)
[2019-12-10 06:24] LABS: HEMOGLOBIN 10.7 G/DL (11.5-16.0); MEAN PLATELET VOLUME 9.5 FL (7.4-10.4); RED CELL DISTRIBUTION WIDTH 19.1 % (10.0-14.5); WHITE BLOOD COUNT 6.8 10^3/uL (4.3-11.0)
[2019-12-10 06:49] LABS: CALCIUM 8.5 MG/DL (8.5-10.1); CREATININE SERUM 2.48 MG/DL (0.60-1.30); POTASSIUM 4.5 MMOL/L (3.6-5.0)
[2019-12-10] MEDS: TAMSULOSIN 0.4 MG (FLOMAX) CAP PO SCH (08:02)
[2019-12-10] MEDS: LACTOBACILLUS ACIDOPHILUS (PROBIOTIC) CAPSULE PO SCH ×3 (08:02→17:17)
[2019-12-10] MEDS: BETHANECHOL 25 MG (URECHOLINE) TAB PO SCH (08:02)
[2019-12-10] MEDS: PANTOPRAZOLE 40 MG (PROTONIX) TAB PO SCH (08:02)
[2019-12-10] MEDS: APIXABAN 2.5 MG (ELIQUIS) TABLET PO SCH ×2 (08:02→21:35)
[2019-12-10] MEDS: CLOPIDOGREL 75 MG (PLAVIX) TABLET PO SCH (08:03)
[2019-12-10] MEDS: MICONAZOLE 2% POWDER (DESENEX AF) 90 GM TOP SCH ×2 (08:03→21:37)
[2019-12-10 08:09] VITALS: BP 105/65
[2019-12-10] MEDS: CHOLESTYRAMINE 4 GM (QUESTRAN LITE, PREVALITE) PKT PO SCH (11:05)
--- NOTE | 2019-12-10 12:30 | Physical Therapy Daily Note ---
PT Daily Note-Current Subjective Pt in bed, agrees to ther ex in bed. Pt drowsy, mumbling at times. Pt awakened several times. Pt able to tell the LEAF STAMPER she is in [facility] and is a [place] resident. Mental Status Patient Orientation: M[place], Listless Attachments: Mendez Catheter Transfers SCALE: Activities may be completed with or without assistive devices. 1-Udfvzdqawm-rvrgagv completes the activity by him/herself with no assistance from a helper. 5-Set-up or Clean-up Assistance-helper sets up or cleans up; patient completes activity. [place] assists only prior to or following the activity. 4-Supervision or Touching Assistance-helper provides verbal cues and/or touching/steadying and/or contact guard assistance as patient completes activity. Assistance may be provided throughout the activity or intermittently. 3-Partial/Moderate Assistance-helper does LESS THAN HALF the effort. [place] lifts, holds or supports trunk or limbs, but provides less than half the effort. 2-Substantial/Maximal Assistance-helper does MORE THAN HALF the effort. [place] lifts or holds trunk or limbs and provides more than half the effort. 6-Bshbdwcvd-tajxan does ALL the effort. Patient does none of the effort to complete the activity. Or, the assistance of 2 or more helpers is required for the patient to complete the activity. If activity was not attempted, code reason: 7-Patient Refused. 9-Not Applicable-not attempted and the patient did not perform the activity before the current illness, exacerbation or injury. 10-Not Attempted due to Environmental Limitations-(lack of equipment, weather restraints, etc.). 88-Not Attempted due to Medical Conditions or Safety Concerns. Weight Bearing Right Lower Extremity: Right Weight Bearing/Tolerated Left Lower Extremity: Left Weight Bearing/Tolerated Exercises Supine Ex: Ankle pumps, Quad Set, Heel Slides, Short Arc Quads, Hip abd/add Supine Reps: 20 Treatments Pt required max A for heel slide, SAQ, hip abd exercises due to drowsiness. Pt was assisted with opening package from family. Pt eyes open and engaging in conversation in order to find out what was in the bag. Pt soon closed eyes. Assessment Current Status: Poor Progress Pt sleepy, drowsy with limited participation. Pt was repositioned in middle of bed twice due to pt listing to the in semi -supine position. Pt repositioned with LE floating on pillows. Call light in reach and all needs met. PT Correction Goals Correction Goals PT Correction Goals Time Frame: December 12, 2019 Roll Left & Right (QC): 2 Sit to Lying (QC): 2 Lying-Sitting on Side/Bed(QC): 2 Sit to Stand (QC): 3 Chair/Krp-ad-Oyhgn Xfer(QC): 3 Toilet Transfer (QC): 3 Car Transfer (QC): 2 Does the Patient Walk: No and Walking Goal IS indicated Walk 10 feet (QC): 2 Walk 50ft with 2 Turns (QC): 88 Walk 150 ft (QC): 88 Walking 10ft on Uneven Surface: 88 1 Step (curb) (QC): 88 4 Steps (QC): 88 12 Steps (QC): 88 Picking up an Object (QC): 88 Wheel 50 feet with 2 turns (QC: 88 Wheel 150 feet: 88 PT Plan Treatment/Plan Treatment Plan: Continue Plan of Care Treatment Plan: Bed Mobility, Education, Functional Activity Sammie, Functional Strength, Gait, Safety, Therapeutic Exercise, Transfers Treatment Duration: December 12, 2019 Frequency: 6 times per week Estimated Hrs Per Day: .25 hour per day Patient and/or Family Agrees t: Yes Time/GCodes Time In: 950 Time Out: 1015 Total Billed Treatment Time: 25 Total Billed Treatment 1, ther ex 25' SWAPNA BOWERS CPTA December 10, 2019 12:30
[2019-12-10 18:00] VITALS: BP 116/56
[2019-12-10] MEDS: SERTRALINE 50 MG (ZOLOFT) TABLET PO SCH (21:35)
[2019-12-11 05:42] VITALS: BP 98/60
[2019-12-11] MEDS: inSUlin ASPART (NovoLOG) 1 UNIT/0.01 ML (CHARGE PER UNIT) SC SCH ×4 (05:43→22:18)
[2019-12-11 08:00] VITALS: BP 103/66
[2019-12-11] MEDS: LACTOBACILLUS ACIDOPHILUS (PROBIOTIC) CAPSULE PO SCH ×3 (08:05→17:08)
[2019-12-11] MEDS: MICONAZOLE 2% POWDER (DESENEX AF) 90 GM TOP SCH ×2 (08:05→22:18)
[2019-12-11] MEDS: CLOPIDOGREL 75 MG (PLAVIX) TABLET PO SCH (08:05)
[2019-12-11] MEDS: BETHANECHOL 25 MG (URECHOLINE) TAB PO SCH (08:05)
[2019-12-11] MEDS: PANTOPRAZOLE 40 MG (PROTONIX) TAB PO SCH (08:06)
[2019-12-11] MEDS: TAMSULOSIN 0.4 MG (FLOMAX) CAP PO SCH (08:06)
[2019-12-11] MEDS: APIXABAN 2.5 MG (ELIQUIS) TABLET PO SCH ×2 (08:06→22:17)
[2019-12-11] MEDS: CHOLESTYRAMINE 4 GM (QUESTRAN LITE, PREVALITE) PKT PO SCH (11:42)
[2019-12-11 18:15] VITALS: BP 112/73
[2019-12-11] MEDS: SERTRALINE 50 MG (ZOLOFT) TABLET PO SCH (22:17)
[2019-12-12 05:09] VITALS: BP 100/66
[2019-12-12] MEDS: inSUlin ASPART (NovoLOG) 1 UNIT/0.01 ML (CHARGE PER UNIT) SC SCH ×4 (05:18→20:23)
[2019-12-12] MEDS: TAMSULOSIN 0.4 MG (FLOMAX) CAP PO SCH (08:27)
[2019-12-12] MEDS: LACTOBACILLUS ACIDOPHILUS (PROBIOTIC) CAPSULE PO SCH ×3 (08:27→17:25)
[2019-12-12] MEDS: CLOPIDOGREL 75 MG (PLAVIX) TABLET PO SCH (08:27)
[2019-12-12] MEDS: PANTOPRAZOLE 40 MG (PROTONIX) TAB PO SCH (08:27)
[2019-12-12] MEDS: BETHANECHOL 25 MG (URECHOLINE) TAB PO SCH (08:27)
[2019-12-12] MEDS: MICONAZOLE 2% POWDER (DESENEX AF) 90 GM TOP SCH ×2 (08:27→20:55)
[2019-12-12] MEDS: APIXABAN 2.5 MG (ELIQUIS) TABLET PO SCH ×2 (08:29→20:19)
--- NOTE | 2019-12-12 10:13 | Physical Therapy Daily Note ---
PT Daily Note-Current Subjective Patient in bed pre tx, agrees to PT, has no complaints of pain. Patient speaks very little but will answer questions. Appearance Patient in recliner post tx, has nurse call, nurse aide in room to give patient a chair bath. Mental Status Patient Orientation: Person, Confused Attachments: Mendez Catheter Transfers SCALE: Activities may be completed with or without assistive devices. 0-Tkwpzjedrn-spmfeta completes the activity by him/herself with no assistance from a helper. 5-Set-up or Clean-up Assistance-helper sets up or cleans up; patient completes activity. [place] assists only prior to or following the activity. 4-Supervision or Touching Assistance-helper provides verbal cues and/or touching/steadying and/or contact guard assistance as patient completes activity. Assistance may be provided throughout the activity or intermittently. 3-Partial/Moderate Assistance-helper does LESS THAN HALF the effort. [place] lifts, holds or supports trunk or limbs, but provides less than half the effort. 2-Substantial/Maximal Assistance-helper does MORE THAN HALF the effort. [place] lifts or holds trunk or limbs and provides more than half the effort. 7-Wltdvusgf-dldqbz does ALL the effort. Patient does none of the effort to complete the activity. Or, the assistance of 2 or more helpers is required for the patient to complete the activity. If activity was not attempted, code reason: 7-Patient Refused. 9-Not Applicable-not attempted and the patient did not perform the activity before the current illness, exacerbation or injury. 10-Not Attempted due to Environmental Limitations-(lack of equipment, weather restraints, etc.). 88-Not Attempted due to Medical Conditions or Safety Concerns. Roll Left & Right (QC): 1 Lying to Sitting/Side of Bed(Q: 1 Sit to Stand (QC): 1 Chair/Vhc-iq-Sjdyi Xfer(QC): 1 Patient is more than dependent for transfers, she resists supine to sit and the transfer and is retropulsive. After the transfer patient is stood one more time so nurse aide can clean her bottom, it is dependent. Weight Bearing Right Lower Extremity: Right Weight Bearing/Tolerated Left Lower Extremity: Left Weight Bearing/Tolerated Exercises Seated Therapy Exercises: Ankle pumps, Long arc quads Seated Reps: 10 (AAROM) Treatments bed mobility and transfers, LE exercise Assessment Current Status: Poor Progress No progress with mobility, patient dependent PT Treasury Representative Goals Treasury Representative Goals PT Treasury Representative Goals Time Frame: December 12, 2019 Roll Left & Right (QC): 2 Sit to Lying (QC): 2 Lying-Sitting on Side/Bed(QC): 2 Sit to Stand (QC): 3 Chair/Crw-zz-Tilsn Xfer(QC): 3 Toilet Transfer (QC): 3 Car Transfer (QC): 2 Does the Patient Walk: No and Walking Goal IS indicated Walk 10 feet (QC): 2 Walk 50ft with 2 Turns (QC): 88 Walk 150 ft (QC): 88 Walking 10ft on Uneven Surface: 88 1 Step (curb) (QC): 88 4 Steps (QC): 88 12 Steps (QC): 88 Picking up an Object (QC): 88 Wheel 50 feet with 2 turns (QC: 88 Wheel 150 feet: 88 PT Plan Problem List Problem List: Activity Tolerance, Functional Strength, Safety, Balance, Gait, Transfer, Bed Mobility, ROM Treatment/Plan Treatment Plan: Continue Plan of Care Treatment Plan: Bed Mobility, Education, Functional Activity Sammie, Functional Strength, Gait, Safety, Therapeutic Exercise, Transfers Treatment Duration: December 12, 2019 Frequency: 6 times per week Estimated Hrs Per Day: .25 hour per day Patient and/or Family Agrees t: Yes Safety Risks/Education Patient Education: Transfer Techniques, Correct Positioning, Safety Issues Teaching Recipient: Patient Teaching Methods: Demonstration, Discussion Response to Teaching: Reinforcement Needed Time/GCodes Time In: 0955 Time Out: 1007 Total Billed Treatment Time: 12 Total Billed Treatment 1 visit FA JAIME BRAR PT December 12, 2019 10:13
[2019-12-12] MEDS: CHOLESTYRAMINE 4 GM (QUESTRAN LITE, PREVALITE) PKT PO SCH (10:31)
--- NOTE | 2019-12-12 10:41 | Progress Note - Hospitalist ---
Subjective HPI/CC On Admission Date Seen by Provider: December 12, 2019 Time Seen by Provider: 09:30 Subjective/Events-last exam she says she is feeling well and denies any complaints or concerns. She denies any pain. She denies any trouble breathing. She denies any nausea or vomiting. She says she has been working with physical therapy and wants to regain function. Objective Exam Vital Signs Vital Signs Date Time Temp Pulse Resp B/P (MAP) Pulse Ox O2 Delivery O2 Flow Rate FiO2 12/12/19 09:00 95 Room Air 12/12/19 05:09 35.9 60 15 100/66 (77) Capillary Refill : Less Than 3 SecondsLess Than 3 Seconds General Appearance: No Apparent Distress, Chronically ill, Obese Respiratory: Lungs Clear, Normal Breath Sounds, No Respiratory Distress Cardiovascular: Regular Rate, Rhythm, No Murmur Gastrointestinal: Normal Bowel Sounds, Non Tender, Soft Extremity: Normal Inspection, Non Tender, Pedal Edema Neurologic/Psychiatric: Alert, Depressed Affect Skin: Normal Color, Warm/Dry Results/Procedures Lab Patient resulted labs reviewed. Assessment/Plan Assessment and Plan Assess & Plan/Chief Complaint Debility Continue PT/OT may need fpc prior to return home UTI History of ESBL urine culture revealed ESBL Klebsiella oxytoca Completed course of [place] Chronic diastolic heart failure Chronic kidney disease repeat BMP tomorrow Holding diuretics Type II diabetes mellitus Sliding scale insulin Atrial fibrillation CAD PAD SSS s/p pacemaker placement h/o aortic stenosis s/p TAVR Continue Eliquis and Coreg Continue home meds Hypertension Depression Coronary artery disease Continue home meds DVT prophylaxis: Already receiving therapeutic anticoagulation Diagnosis/Problems Diagnosis/Problems (1) Debility Status: Acute (2) UTI (urinary tract infection) Status: Acute (3) Infection with ESBL Klebsiella oxytoca Status: Acute (4) CKD (chronic kidney disease) Status: Chronic Qualifiers: Chronic kidney disease stage: stage 3 (moderate) Qualified Codes: N18.3 - Chronic kidney disease, stage 3 (moderate) Clinical Quality Measures DVT/VTE Risk/Contraindication: Risk Factor Score Per Nursin CRIS WALDEN MD December 12, 2019 10:41
--- NOTE | 2019-12-12 15:19 | Occupational Ther Daily Note ---
OT Current Status-Daily Note Subjective Pt laying in bed sleeping, easily awoken and nodded head in agreement to therapy. Pt the immediately closed her eyes again. ADL-Treatment Therapy Code Descriptions/Definitions Functional [place] Measure: 0=Not Assessed/NA 4=Minimal Assistance 1=Total Assistance 5=Supervision or Setup 2=Maximal Assistance 6=Modified [place] 3=Moderate Assistance 7=Complete IndependenceSCALE: Activities may be completed with or without assistive devices. 6-Uigmkieefn-krttrjt completes the activity by him/herself with no assistance from a helper. 5-Set-up or Clean-up Assistance-helper sets up or cleans up; patient completes activity. [place] assists only prior to or following the activity. 4-Supervision or Touching Assistance-helper provides verbal cues and/or touching/steadying and/or contact guard assistance as patient completes a ctivity. Assistance may be provided throughout the activity or intermittently. 3-Partial/Moderate Assistance-helper does LESS THAN HALF the effort. [place] lifts, holds or supports trunk or limbs, but provides less than half the effort. 2-Substantial/Maximal Assistance-helper does MORE THAN HALF the effort. [place] lifts or holds trunk or limbs and provides more than half the effort. 2-Yetcdnple-lpznhy does ALL the effort. Patient does none of the effort to complete the activity. Or, the assistance of 2 or more helpers is required for the patient to complete the activity. If activity was not attempted, code reason: 7-Patient Refused. 9-Not Applicable-not attempted and the patient did not perform the activity before the current illness, exacerbation or injury. 10-Not Attempted due to Environmental Limitations-(lack of equipment, weather restraints, etc.). 88-Not Attempted due to Medical Conditions or Safety Concerns. Other Treatment Pt laying in bed, easily awoken but closed eyes throughout session. OT performed PROM on BUES x15 reps for each of the following: wrist flex/ext, elbow fl/ext, shoulder flex, finger flex/ext. Pt falling asleep off and on throughout session, did not engage in conversation. OT assisted pt with scooting shoulders towards midline. Post OT session, pt laying in bed, call light in reach and all needs met. Education OT Patient Education: Correct positioning, Energy conservation, Exercise program, Modified ADL techniques, Progress toward Goal/Update tx plan, Purpose of tx/functional activities Teaching Recipient: Patient Teaching Methods: Demonstration Response to Teaching: Verbalize Understanding OT Fpc Goals Fpc Goals Time Frame: December 12, 2019 Eating (QC): 6 Oral Hygiene (QC): 6 Toileting Hygiene (QC): 2 Shower/Bathe Self (QC): 3 Upper Body Dressing (QC): 3 Lower Body Dressing (QC): 2 On/Off Footwear (QC): 3 Additional Goals: 1-Demonstrate ADL Tasks, 2-Verbalize Understanding, 3-Impr oveStrength/Sammie 1=Demonstrate adherence to instructed precautions during ADL tasks. 2=Patient will verbalize/demonstrate understanding of assistive devices/modifications for ADL. 3=Patient will improve strength/tolerance for activity to enable patient to perform ADL's. OT Education/Plan Problem List/Assessment Assessment: Decreased Activ Tolerance, Decreased UE Strength, Impaired Bed Mobility, Impaired I ADL's, Impaired Self-Care Skills Discharge Recommendations Plan/Recommendations: Continue POC Treatment Plan/Plan of Care Patient would benefit from OT for education, treatment and training to promote independence in ADL's, mobility, safety and/or upper extremity function for ADL's. Plan of Care: ADL Retraining, Functional Mobility, UE Funct Exercise/Act Treatment Duration: December 12, 2019 Frequency: 5 times per week Estimated Hrs Per Day: .25 hour per day Agreement: Yes Rehab Potential: Fair Time/GCodes Start Time: 14:55 Stop Time: 15:10 Total Time Billed (hr/min): 15 Billed Treatment Time 1, EX LEILANI CUENCA OT December 12, 2019 15:19
[2019-12-12 18:00] VITALS: BP 100/66
[2019-12-12] MEDS: SERTRALINE 50 MG (ZOLOFT) TABLET PO SCH (20:21)
[2019-12-12] MEDS: MELATONIN 3 MG TABLET PO PRN (20:21)
[2019-12-13 05:44] LABS: POTASSIUM 4.6 MMOL/L (3.6-5.0)
[2019-12-13 05:45] LABS: CALCIUM 8.8 MG/DL (8.5-10.1)
[2019-12-13 05:49] LABS: CREATININE SERUM 2.21 MG/DL (0.60-1.30)
[2019-12-13 05:58] VITALS: BP 118/72
[2019-12-13] MEDS: inSUlin ASPART (NovoLOG) 1 UNIT/0.01 ML (CHARGE PER UNIT) SC SCH ×4 (06:00→21:09)
[2019-12-13] MEDS: LACTOBACILLUS ACIDOPHILUS (PROBIOTIC) CAPSULE PO SCH ×3 (07:48→17:44)
[2019-12-13] MEDS: BETHANECHOL 25 MG (URECHOLINE) TAB PO SCH (08:46)
[2019-12-13] MEDS: CLOPIDOGREL 75 MG (PLAVIX) TABLET PO SCH (08:46)
[2019-12-13] MEDS: APIXABAN 2.5 MG (ELIQUIS) TABLET PO SCH ×2 (08:46→20:10)
[2019-12-13] MEDS: PANTOPRAZOLE 40 MG (PROTONIX) TAB PO SCH (08:46)
[2019-12-13] MEDS: TAMSULOSIN 0.4 MG (FLOMAX) CAP PO SCH (08:46)
[2019-12-13] MEDS: MICONAZOLE 2% POWDER (DESENEX AF) 90 GM TOP SCH ×2 (08:47→20:10)
--- NOTE | 2019-12-13 09:44 | Physical Therapy Daily Note ---
PT Daily Note-Current Subjective Patient is in bed and leaning to right. Agrees to PT. Mental Status Patient Orientation: Listless Attachments: Mendez Catheter Transfers SCALE: Activities may be completed with or without assistive devices. 4-Lukqdofwpm-sdhzlog completes the activity by him/herself with no assistance from a helper. 5-Set-up or Clean-up Assistance-helper sets up or cleans up; patient completes activity. [place] assists only prior to or following the activity. 4-Supervision or Touching Assistance-helper provides verbal cues and/or touching/steadying and/or contact guard assistance as patient completes activity. Assistance may be provided throughout the activity or intermittently. 3-Partial/Moderate Assistance-helper does LESS THAN HALF the effort. [place] lifts, holds or supports trunk or limbs, but provides less than half the effort. 2-Substantial/Maximal Assistance-helper does MORE THAN HALF the effort. [place] lifts or holds trunk or limbs and provides more than half the effort. 3-Qffrnjoxu-lssvtj does ALL the effort. Patient does none of the effort to complete the activity. Or, the assistance of 2 or more helpers is required for the patient to complete the activity. If activity was not attempted, code reason: 7-Patient Refused. 9-Not Applicable-not attempted and the patient did not perform the activity before the current illness, exacerbation or injury. 10-Not Attempted due to Environmental Limitations-(lack of equipment, weather restraints, etc.). 88-Not Attempted due to Medical Conditions or Safety Concerns. Roll Left & Right (QC): 1 Lying to Sitting/Side of Bed(Q: 1 Sit to Stand (QC): 1 dependent assist x 2-3 people due to patient lack of strength and progress. Pat ient is unable to sit EOB without dependent assist x 2. Gina sling place in recliner due to patient inability to assist with mobility to allow nursing to return patient to bed. Weight Bearing Right Lower Extremity: Right Weight Bearing/Tolerated Left Lower Extremity: Left Weight Bearing/Tolerated Exercises Supine Ex: Ankle pumps, Heel Slides, Hip abd/add Supine Reps: 12 (PROM) Seated Therapy Exercises: Long arc quads, Hip flexion Seated Reps: 12 (PROM) Assessment Patient LOF continues to be dependent of multiple staff. Patient is not progressing with treatment plan. PT Back Stayer Goals Nursing Home Goals PT Nursing Home Goals Time Frame: Dec 24, 2019 Roll Left & Right (QC): 2 Sit to Lying (QC): 2 Lying-Sitting on Side/Bed(QC): 2 Sit to Stand (QC): 3 Chair/Kfb-uz-Nostd Xfer(QC): 3 Toilet Transfer (QC): 3 Car Transfer (QC): 2 Does the Patient Walk: No and Walking Goal IS indicated Walk 10 feet (QC): 2 Walk 50ft with 2 Turns (QC): 88 Walk 150 ft (QC): 88 Walking 10ft on Uneven Surface: 88 1 Step (curb) (QC): 88 4 Steps (QC): 88 12 Steps (QC): 88 Picking up an Object (QC): 88 Wheel 50 feet with 2 turns (QC: 88 Wheel 150 feet: 88 PT Plan Treatment/Plan Treatment Plan: Continue Plan of Care Treatment Plan: Bed Mobility, Education, Functional Activity Sammie, Functional Strength, Gait, Safety, Therapeutic Exercise, Transfers Treatment Duration: Dec 24, 2019 Frequency: 6 times per week Estimated Hrs Per Day: .25 hour per day Patient and/or Family Agrees t: Yes Time/GCodes Time In: 845 Time Out: 902 Total Billed Treatment Time: 17 Total Billed Treatment 1 visit EX 17 min WOODY STARKEY PT December 13, 2019 09:44
[2019-12-13] MEDS: CHOLESTYRAMINE 4 GM (QUESTRAN LITE, PREVALITE) PKT PO SCH (10:07)
--- NOTE | 2019-12-13 11:02 | Occupational Ther Daily Note ---
OT Current Status-Daily Note Subjective Pt sitting in chair with nurse aide present. Agrees to therapy. Pt denies pain. ADL-Treatment Therapy Code Descriptions/Definitions Functional [place] Measure: 0=Not Assessed/NA 4=Minimal Assistance 1=Total Assistance 5=Supervision or Setup 2=Maximal Assistance 6=Modified [place] 3=Moderate Assistance 7=Complete IndependenceSCALE: Activities may be completed with or without assistive devices. 4-Juvyapiajh-rqoyyuq completes the activity by him/herself with no assistance from a helper. 5-Set-up or Clean-up Assistance-helper sets up or cleans up; patient completes activity. [place] assists only prior to or following the activity. 4-Supervision or Touching Assistance-helper provides verbal cues and/or touching/steadying and/or contact guard assistance as patient completes activity. Assistance may be provided throughout the activity or intermittently. 3-Partial/Moderate Assistance-helper does LESS THAN HALF the effort. [place] lifts, holds or supports trunk or limbs, but provides less than half the effort. 2-Substantial/Maximal Assistance-helper does MORE THAN HALF the effort. [place] lifts or holds trunk or limbs and provides more than half the effort. 9-Fzmmfjrct-mherlo does ALL the effort. Patient does none of the effort to complete the activity. Or, the assistance of 2 or more helpers is required for the patient to complete the activity. If activity was not attempted, code reason: 7-Patient Refused. 9-Not Applicable-not attempted and the patient did not perform the activity before the current illness, exacerbation or injury. 10-Not Attempted due to Environmental Limitations-(lack of equipment, weather restraints, etc.). 88-Not Attempted due to Medical Conditions or Safety Concerns. Other Treatment Pt required total assist to change hospital gown. Bilateral UE PROM completed x10 reps in all planes. Pt occasionally assists when given multiple cues, but does not maintain participation. Increased time to respond to commands. Pt keeps eyes closed throughout much of session. Pt positioned in chair with needs met after session. OT Prison Goals Prison Goals Time Frame: December 12, 2019 Eating (QC): 6 Oral Hygiene (QC): 6 Toileting Hygiene (QC): 2 Shower/Bathe Self (QC): 3 Upper Body Dressing (QC): 3 Lower Body Dressing (QC): 2 On/Off Footwear (QC): 3 Additional Goals: 1-Demonstrate ADL Tasks, 2-Verbalize Understanding, 3-Impro veStrength/Sammie 1=Demonstrate adherence to instructed precautions during ADL tasks. 2=Patient will verbalize/demonstrate understanding of assistive devices/modifications for ADL. 3=Patient will improve strength/tolerance for activity to enable patient to perform ADL's. OT Education/Plan Discharge Recommendations Plan/Recommendations: Continue POC Treatment Plan/Plan of Care Patient would benefit from OT for education, treatment and training to promote independence in ADL's, mobility, safety and/or upper extremity function for ADL's. Plan of Care: ADL Retraining, Functional Mobility, UE Funct Exercise/Act Treatment Duration: December 12, 2019 Frequency: 5 times per week Estimated Hrs Per Day: .25 hour per day Agreement: Yes Rehab Potential: Fair Time/GCodes Start Time: 10:42 Stop Time: 10:57 Total Time Billed (hr/min): 15 Billed Treatment Time 1 visit, EX(15minutes) ASHWINI MADERA OT December 13, 2019 11:02
[2019-12-13] MEDS: ACETAMINOPHEN 325 MG TABLET PO PRN (12:50)
--- NOTE | 2019-12-13 13:43 | NUR ---
"RD ASSESSMENT PMHx: afib; CAD; NH; hypercholesterolemia; HTN; TIA; chronic UTI; c-diff; DM; CA(breast) PT INTERACTION: Pt was awake and pleasant during nutrition follow-up. Pt states she has been eating okay since last assessment. Note avg PO intake <25% of meals, per chart review. Pt states some issues with nausea, constipation, and diarrhea since last assessment. Note last BM was 12/11 and pt currently on bowel regimen of bisacodyl PRN; and miralax PRN, per chart review. ABNORMAL NUTRITION-RELATED LAB VALUES LOW: HIGH: BUN 70; cr 2.21; glu 128 Est. kcal needs: 8016-1695 kcal | 15-18 kcal/kg Est. Pro needs: 86-108 g Pro | 0.8-1.0 g Pro/kg PES STATEMENT: Inadequate oral intake (NI-2.1) related to loss of appetite | nausea | constipation | diarrhea as evidenced by pt interview | avg PO intake <25% meals INTERVENTION: Continue with current diet order of CHO 60g/m 1snack diet. Pt may benefit from nutrition supplementation d/t poor PO intake. Will continue to follow and reassess as pt needs, intake, and status change. MONITOR/EVALUATE: PO Intake; Plan of Care; Hydration Status; Weight Status; Lab Values Rex Vega, , RD, LD"
[2019-12-13 17:58] VITALS: BP 105/68
[2019-12-13] MEDS: SERTRALINE 50 MG (ZOLOFT) TABLET PO SCH (20:10)
--- NOTE | 2019-12-13 22:45 | NUR ---
REPORT RECEIVED FROM GALINA MCFARLANE. THIS RN AGREES WITH PRIOR ASSESSMENT. THIS RN WILL ASSUME CARE OF PATIENT AT THIS TIME.
[2019-12-14] MEDS: ONDANSETRON 4 MG/2 ML (SDV) Z0FRAN IV PRN (04:02)
[2019-12-14 05:47] LABS: POTASSIUM 4.5 MMOL/L (3.6-5.0)
[2019-12-14 05:48] LABS: CALCIUM 8.8 MG/DL (8.5-10.1)
[2019-12-14 05:52] LABS: CREATININE SERUM 2.09 MG/DL (0.60-1.30)
[2019-12-14] MEDS: inSUlin ASPART (NovoLOG) 1 UNIT/0.01 ML (CHARGE PER UNIT) SC SCH ×4 (05:55→21:55)
[2019-12-14 06:00] VITALS: BP 108/66
[2019-12-14] MEDS: TAMSULOSIN 0.4 MG (FLOMAX) CAP PO SCH (08:44)
[2019-12-14] MEDS: CLOPIDOGREL 75 MG (PLAVIX) TABLET PO SCH (08:44)
[2019-12-14] MEDS: APIXABAN 2.5 MG (ELIQUIS) TABLET PO SCH ×2 (08:44→21:56)
[2019-12-14] MEDS: PANTOPRAZOLE 40 MG (PROTONIX) TAB PO SCH (08:44)
[2019-12-14] MEDS: BETHANECHOL 25 MG (URECHOLINE) TAB PO SCH (08:44)
[2019-12-14] MEDS: LACTOBACILLUS ACIDOPHILUS (PROBIOTIC) CAPSULE PO SCH ×3 (08:46→18:07)
[2019-12-14] MEDS: MICONAZOLE 2% POWDER (DESENEX AF) 90 GM TOP SCH ×2 (08:46→21:56)
--- NOTE | 2019-12-14 09:16 | Physical Therapy Daily Note ---
PT Daily Note-Current Subjective Patient in bed pre tx, agrees to PT, has no complaints of pain. Patient's head leans to the right side. OT has already started with patient but we will be co- treating from now due to poor patient mobility, strength, endurance, balance, the need to coordinate UE and LE during activity. Appearance Patient in recliner at bedside post tx with nurse call, phone, tray, murray sling under patient. Mental Status Patient Orientation: Person, Confused Attachments: Mendez Catheter Transfers SCALE: Activities may be completed with or without assistive devices. 6-Txvcbcuurx-ugbyerp completes the activity by him/herself with no assistance from a helper. 5-Set-up or Clean-up Assistance-helper sets up or cleans up; patient completes activity. [place] assists only prior to or following the activity. 4-Supervision or Touching Assistance-helper provides verbal cues and/or touching/steadying and/or contact guard assistance as patient completes activity. Assistance may be provided throughout the activity or intermittently. 3-Partial/Moderate Assistance-helper does LESS THAN HALF the effort. [place] lifts, holds or supports trunk or limbs, but provides less than half the effort. 2-Substantial/Maximal Assistance-helper does MORE THAN HALF the effort. [place] lifts or holds trunk or limbs and provides more than half the effort. 9-Thttxdqbi-mgomap does ALL the effort. Patient does none of the effort to complete the activity. Or, the assistance of 2 or more helpers is required for the patient to complete the activity. If activity was not attempted, code reason: 7-Patient Refused. 9-Not Applicable-not attempted and the patient did not perform the activity before the current illness, exacerbation or injury. 10-Not Attempted due to Environmental Limitations-(lack of equipment, weather restraints, etc.). 88-Not Attempted due to Medical Conditions or Safety Concerns. Roll Left & Right (QC): 1 Chair/Gau-xx-Binak Xfer(QC): 1 Patient was dependent for rolling from side to side to place murray sling, sling placed and murray transfer to recliner. Patient does not help with rolling or any mobility. Weight Bearing Right Lower Extremity: Right Weight Bearing/Tolerated Left Lower Extremity: Left Weight Bearing/Tolerated Exercises Supine Ex: Ankle pumps Supine Reps: 15 (AAROM) Treatments rolling, bed mobility, transfer, LE exercise, patient participates in ankle pumps but doesn't with other attempted LE exercises. PT worked on rolling, transfer, LE exercise, OT worked on rolling, safety and positioning during transfer, UE exercise. Assessment Current Status: Poor Progress steady decline in mobility, patient is dependent for all mobility PT Fdc Goals Circus Train Supervisor Goals PT Circus Train Supervisor Goals Time Frame: Dec 24, 2019 Roll Left & Right (QC): 2 Sit to Lying (QC): 2 Lying-Sitting on Side/Bed(QC): 2 Sit to Stand (QC): 3 Chair/Cyn-rs-Gbppf Xfer(QC): 3 Toilet Transfer (QC): 3 Car Transfer (QC): 2 Does the Patient Walk: No and Walking Goal IS indicated Walk 10 feet (QC): 2 Walk 50ft with 2 Turns (QC): 88 Walk 150 ft (QC): 88 Walking 10ft on Uneven Surface: 88 1 Step (curb) (QC): 88 4 Steps (QC): 88 12 Steps (QC): 88 Picking up an Object (QC): 88 Wheel 50 feet with 2 turns (QC: 88 Wheel 150 feet: 88 PT Plan Problem List Problem List: Activity Tolerance, Functional Strength, Safety, Balance, Gait, Transfer, Bed Mobility, ROM Treatment/Plan Treatment Plan: Continue Plan of Care Treatment Plan: Bed Mobility, Education, Functional Activity Sammie, Functional Strength, Gait, Safety, Therapeutic Exercise, Transfers Treatment Duration: Dec 24, 2019 Frequency: 6 times per week Estimated Hrs Per Day: .25 hour per day Patient and/or Family Agrees t: Yes Safety Risks/Education Patient Education: Transfer Techniques, Correct Positioning, Safety Issues Teaching Recipient: Patient Teaching Methods: Demonstration, Discussion Response to Teaching: Reinforcement Needed Time/GCodes Time In: 829 Time Out: 844 Total Billed Treatment Time: 15 Total Billed Treatment 1 visit FA JAIME HERNANDEZ PT December 14, 2019 09:16
--- NOTE | 2019-12-14 09:36 | Occupational Ther Daily Note ---
OT Current Status-Daily Note Subjective Pt laying in bed, agreeable to OT tx with focus on ADLS, she declines pain. Mental Status/Objective Attachments: Mendez Catheter ADL-Treatment Therapy Code Descriptions/Definitions Functional [place] Measure: 0=Not Assessed/NA 4=Minimal Assistance 1=Total Assistance 5=Supervision or Setup 2=Maximal Assistance 6=Modified [place] 3=Moderate Assistance 7=Complete IndependenceSCALE: Activities may be completed with or without assistive devices. 7-Oefpgjzckg-kvmtzca completes the activity by him/herself with no assistance from a helper. 5-Set-up or Clean-up Assistance-helper sets up or cleans up; patient completes activity. [place] assists only prior to or following the activity. 4-Supervision or Touching Assistance-helper provides verbal cues and/or touching/steadying and/or contact guard assistance as patient completes activity. Assistance may be provided throughout the activity or intermittently. 3-Partial/Moderate Assistance-helper does LESS THAN HALF the effort. [place] lifts, holds or supports trunk or limbs, but provides less than half the effort. 2-Substantial/Maximal Assistance-helper does MORE THAN HALF the effort. [place] lifts or holds trunk or limbs and provides more than half the effort. 2-Ocpsiwurs-yituji does ALL the effort. Patient does none of the effort to complete the activity. Or, the assistance of 2 or more helpers is required for the patient to complete the activity. If activity was not attempted, code reason: 7-Patient Refused. 9-Not Applicable-not attempted and the patient did not perform the activity b efore the current illness, exacerbation or injury. 10-Not Attempted due to Environmental Limitations-(lack of equipment, weather restraints, etc.). 88-Not Attempted due to Medical Conditions or Safety Concerns. Other Treatment [id number]: Pt laying in bed, agreed to change hospital gown. Pt required mod verbal and tactile cues in order to doff gown from arms. Pt then held arms out in front of her as OT threaded gown over her arms. Pt then agreed to washing her face, did not initiate task when handed washcloth. OT dependently washed pt's face. [id number]: PT arrived, OT/PT then cotreated due to poor patient mobility, strength, endurance, balance, the need to coordinate UE and LE during activity. PT focused on rolling, transfer, LE exercise, while OT focused on rolling, safety and positioning during transfer & UE placement. Pt dependently rolled side to side for sling placement, then transferred to recliner via murray. Post OT/PT cotreat, pt seated in recliner, call light in reach and all needs met. Education OT Patient Education: Correct positioning, Energy conservation, Modified ADL techniques, Progress toward Goal/Update tx plan, Purpose of tx/functional activities, Transfer techniques Teaching Recipient: Patient Teaching Methods: Discussion Response to Teaching: Verbalize Understanding, Reinforcement Needed OT Longterm Goals Longterm Goals Time Frame: December 12, 2019 Eating (QC): 6 Oral Hygiene (QC): 6 Toileting Hygiene (QC): 2 Shower/Bathe Self (QC): 3 Upper Body Dressing (QC): 3 Lower Body Dressing (QC): 2 On/Off Footwear (QC): 3 Additional Goals: 1-Demonstrate ADL Tasks, 2-Verbalize Understanding, 3- ImproveStrength/Sammie 1=Demonstrate adherence to instructed precautions during ADL tasks. 2=Patient will verbalize/demonstrate understanding of assistive devices/modifications for ADL. 3=Patient will improve strength/tolerance for activity to enable patient to perform ADL's. OT Education/Plan Problem List/Assessment Assessment: Decreased Activ Tolerance, Decreased UE Strength, Dependent Transfers, Impaired Bed Mobility, Impaired Funct Balance, Impaired I ADL's, Impaired Self-Care Skills Discharge Recommendations Plan/Recommendations: Continue POC Treatment Plan/Plan of Care Patient would benefit from OT for education, treatment and training to promote independence in ADL's, mobility, safety and/or upper extremity function for ADL's. Plan of Care: ADL Retraining, Functional Mobility, UE Funct Exercise/Act Treatment Duration: December 12, 2019 Frequency: 5 times per week Estimated Hrs Per Day: .25 hour per day Agreement: Yes Rehab Potential: Fair Time/GCodes Start Time: 08:25 Stop Time: 08:45 Total Time Billed (hr/min): 20 Billed Treatment Time [id number] [place] tx [id number] OT/PT cotrejudit, 1, FA (20') LEILANI CUENCA OT December 14, 2019 09:36
--- NOTE | 2019-12-14 09:41 | Occ Therapy Rehab Re-Cert ---
OT Re-Certification Form Plan of Care: ADL Retraining, Functional Mobility, UE Funct Exercise/Act This is a late note from 12/12/2019, Goals to remain the same with time frame extended to 12/23/2019 Frequency: 5 times per week Estimated Hrs Per Day: .25 hour per day Agreement: Yes Rehab Potential: Guarded OT Merchandise Buyer Goals Senior Care Goals Time Frame: Dec 23, 2019 Eating (QC): 6 Oral Hygiene (QC): 6 Toileting Hygiene (QC): 2 Shower/Bathe Self (QC): 3 Upper Body Dressing (QC): 3 Lower Body Dressing (QC): 2 On/Off Footwear (QC): 3 Additional Goals: 1-Demonstrate ADL Tasks, 2-Verbalize Understanding, 3- ImproveStrength/Sammie 1=Demonstrate adherence to instructed precautions during ADL tasks. 2=Patient will verbalize/demonstrate understanding of assistive devices/modifications for ADL. 3=Patient will improve strength/tolerance for activity to enable patient to perform ADL's. LEILANI CUENCA OT December 14, 2019 09:41
[2019-12-14] MEDS: CHOLESTYRAMINE 4 GM (QUESTRAN LITE, PREVALITE) PKT PO SCH (09:56)
--- NOTE | 2019-12-14 12:16 | NUR ---
Swing Bed team meeting held today. Patient has not been actively participating with therapies consistently. Historically she has participated actively with therapies when her grand daughter Johanna has been able to be at the hospital with the patient. Visitor restrictions d/t COVID19 have been relaxed slightly et so I contacted Johanna et she will be here in the morning to spend the day with her grandma. Notified therapies that her G-Daughter will be here et they will work with the patient with G-Daughter present. This will determine if Johanna feels that she can take Pat home with [facility] vs. other discharge options need to be explored. Johanna is very adamant that Pat will come home with her as she has in the past. I expressed concerns with Johanna about this plan of care but encouraged her that we will ultimately support her et the patients in their discharge wishes et try to support Pat in the home. Updated Pat that Johanna will be here in the morning et of the above discussion. Pat does not keep her eyes open as we talk et only responds in one word replies. Unsure of how much of the information she will remember.
--- NOTE | 2019-12-14 14:02 | Occupational Ther Daily Note ---
OT Current Status-Daily Note Subjective Pt lying in recliner, woke to name. Pt did communicate minimal initially then as therapy progressed pt was noncommunicative. Mental Status/Objective Patient Orientation: Person ADL-Treatment Therapy Code Descriptions/Definitions Functional [place] Measure: 0=Not Assessed/NA 4=Minimal Assistance 1=Total Assistance 5=Supervision or Setup 2=Maximal Assistance 6=Modified [place] 3=Moderate Assistance 7=Complete IndependenceSCALE: Activities may be completed with or without assistive devices. 9-Eqmiklvgsn-caqlewo completes the activity by him/herself with no assistance from a helper. 5-Set-up or Clean-up Assistance-helper sets up or cleans up; patient completes a ctivity. [place] assists only prior to or following the activity. 4-Supervision or Touching Assistance-helper provides verbal cues and/or touching/steadying and/or contact guard assistance as patient completes activity. Assistance may be provided throughout the activity or intermittently. 3-Partial/Moderate Assistance-helper does LESS THAN HALF the effort. [place] lifts, holds or supports trunk or limbs, but provides less than half the effort. 2-Substantial/Maximal Assistance-helper does MORE THAN HALF the effort. [place] lifts or holds trunk or limbs and provides more than half the effort. 7-Iwicrjwgi-alptnp does ALL the effort. Patient does none of the effort to complete the activity. Or, the assistance of 2 or more helpers is required for the patient to complete the activity. If activity was not attempted, code reason: 7-Patient Refused. 9-Not Applicable-not attempted and the patient did not perform the activity before the current illness, exacerbation or injury. 10-Not Attempted due to Environmental Limitations-(lack of equipment, weather restraints, etc.). 88-Not Attempted due to Medical Conditions or Safety Concerns. Other Treatment Pt was offered oral care, declined. Pt did hold onto Ensure bottle and bring to mouth. For 2 reps, pt completed B UE exercises, one UE at a time, with minimal movement AROM. After 2nd rep it was APROM to PROM to complete 1 set of 10. Pt tolerated 85* of shldr flexion, PROM 10 reps. Forward shldr flexion with assist to passive assist. After session, pt sitting in recliner with call light/phone in reach. All needs met in room. OT Pasteurizing Machine Operator Goals Pasteurizing Machine Operator Goals Time Frame: Dec 23, 2019 Eating (QC): 6 Oral Hygiene (QC): 6 Toileting Hygiene (QC): 2 Shower/Bathe Self (QC): 3 Upper Body Dressing (QC): 3 Lower Body Dressing (QC): 2 On/Off Footwear (QC): 3 Additional Goals: 1-Demonstrate ADL Tasks, 2-Verbalize Understanding, 3- ImproveStrength/Sammie 1=Demonstrate adherence to instructed precautions during ADL tasks. 2=Patient will verbalize/demonstrate understanding of assistive devices/modifications for ADL. 3=Patient will improve strength/tolerance for activity to enable patient to perform ADL's. OT Education/Plan Problem List/Assessment Assessment: Decreased Activ Tolerance, Decreased Safety Aware, Decreased UE Strength, Dependent Transfers, Impaired Bed Mobility, Impaired Cognition, Impaired Coordination, Impaired Funct Balance, Impaired I ADL's, Impaired Self- Care Skills, Restricted Funct UE ROM Discharge Recommendations Plan/Recommendations: Continue POC Treatment Plan/Plan of Care Patient would benefit from OT for education, treatment and training to promote independence in ADL's, mobility, safety and/or upper extremity function for ADL's. Plan of Care: ADL Retraining, Functional Mobility, UE Funct Exercise/Act Treatment Duration: December 12, 2019 Frequency: 5 times per week Estimated Hrs Per Day: .25 hour per day Agreement: Yes Rehab Potential: Guarded Time/GCodes Start Time: 13:38 Stop Time: 13:48 Total Time Billed (hr/min): 10 Billed Treatment Time 1 visit-FA 1 (10 min) KEMAR DEAN December 14, 2019 14:02
[2019-12-14 17:41] VITALS: BP 125/79
[2019-12-14] MEDS: SERTRALINE 50 MG (ZOLOFT) TABLET PO SCH (21:56)
[2019-12-14] MEDS: MELATONIN 3 MG TABLET PO PRN (21:56)
[2019-12-14] MEDS: ACETAMINOPHEN 325 MG TABLET PO PRN (21:56)
[2019-12-14] MEDS: hydrOXYzine (VISTARIL/ATARAX) 25 MG capsule/tablet PO PRN (21:56)
[2019-12-15 05:31] LABS: CALCIUM 8.6 MG/DL (8.5-10.1); CREATININE SERUM 1.92 MG/DL (0.60-1.30); POTASSIUM 4.5 MMOL/L (3.6-5.0)
[2019-12-15] MEDS: inSUlin ASPART (NovoLOG) 1 UNIT/0.01 ML (CHARGE PER UNIT) SC SCH ×4 (05:40→20:37)
[2019-12-15 05:46] VITALS: BP 104/65
[2019-12-15] MEDS: LACTOBACILLUS ACIDOPHILUS (PROBIOTIC) CAPSULE PO SCH ×3 (09:08→16:45)
[2019-12-15] MEDS: BETHANECHOL 25 MG (URECHOLINE) TAB PO SCH (09:08)
[2019-12-15] MEDS: TAMSULOSIN 0.4 MG (FLOMAX) CAP PO SCH (09:08)
[2019-12-15] MEDS: CLOPIDOGREL 75 MG (PLAVIX) TABLET PO SCH (09:09)
[2019-12-15] MEDS: APIXABAN 2.5 MG (ELIQUIS) TABLET PO SCH ×2 (09:09→20:37)
[2019-12-15] MEDS: PANTOPRAZOLE 40 MG (PROTONIX) TAB PO SCH (09:09)
[2019-12-15] MEDS: MICONAZOLE 2% POWDER (DESENEX AF) 90 GM TOP SCH ×2 (09:09→20:37)
--- NOTE | 2019-12-15 09:57 | Physical Therapy Daily Note ---
PT Daily Note-Current Subjective Patient is in bed and granddaughter present for family training to assess patient returning to home. Mental Status Patient Orientation: [place], Listless Attachments: Mendez Catheter Transfers SCALE: Activities may be completed with or without assistive devices. 2-Zyebzoqwrq-reotjgn completes the activity by him/herself with no assistance from a helper. 5-Set-up or Clean-up Assistance-helper sets up or cleans up; patient completes activity. [place] assists only prior to or following the activity. 4-Supervision or Touching Assistance-helper provides verbal cues and/or touching/steadying and/or contact guard assistance as patient completes activity. Assistance may be provided throughout the activity or intermittently. 3-Partial/Moderate Assistance-helper does LESS THAN HALF the effort. [place] lifts, holds or supports trunk or limbs, but provides less than half the effort. 2-Substantial/Maximal Assistance-helper does MORE THAN HALF the effort. [place] lifts or holds trunk or limbs and provides more than half the effort. 3-Oobqynjeh-nwaiyv does ALL the effort. Patient does none of the effort to complete the activity. Or, the assistance of 2 or more helpers is required for the patient to complete the activity. If activity was not attempted, code reason: 7-Patient Refused. 9-Not Applicable-not attempted and the patient did not perform the activity before the current illness, exacerbation or injury. 10-Not Attempted due to Environmental Limitations-(lack of equipment, weather restraints, etc.). 88-Not Attempted due to Medical Conditions or Safety Concerns. Roll Left & Right (QC): 1 Lying to Sitting/Side of Bed(Q: 1 Sit to Stand (QC): 1 Chair/Kti-xg-Hxkmu Xfer(QC): 1 Toilet Transfer (QC): 1 Patient dependent assist x 2 with all mobility. Performed sit to stand to FWW x 3 sets with granddaughter and PT dependent assist. Patient unable to maintain stand. Patient incontinent BM during treatment requiring assist of a third person to cleanse patient. Weight Bearing Right Lower Extremity: Right Weight Bearing/Tolerated Left Lower Extremity: Left Weight Bearing/Tolerated Exercises Supine Ex: Ankle pumps, Heel Slides, Straight leg raise, Hip abd/add Supine Reps: 10 (PROM) Seated Therapy Exercises: Long arc quads Seated Reps: 12 (AAROM) Assessment Patient continues to require dependent assist of 2-3 people with patient unable to maintain prolonged stand. Granddaughter reports patient performed all tasks as PLOF and family will be able to assist patient at home. PT voiced concern of patient requiring dependent assist of multiple people for safety, however, granddaughter reports she and her spouse are there and also a paid caregiver for a few hours during week. PT did report this to swing bed coordinator. PT Alf Goals Alf Goals PT Meat Loiner Goals Time Frame: Dec 24, 2019 Roll Left & Right (QC): 2 Sit to Lying (QC): 2 Lying-Sitting on Side/Bed(QC): 2 Sit to Stand (QC): 3 Chair/Vxl-sl-Kqwxi Xfer(QC): 3 Toilet Transfer (QC): 3 Car Transfer (QC): 2 Does the Patient Walk: No and Walking Goal IS indicated Walk 10 feet (QC): 2 Walk 50ft with 2 Turns (QC): 88 Walk 150 ft (QC): 88 Walking 10ft on Uneven Surface: 88 1 Step (curb) (QC): 88 4 Steps (QC): 88 12 Steps (QC): 88 Picking up an Object (QC): 88 Wheel 50 feet with 2 turns (QC: 88 Wheel 150 feet: 88 PT Plan Treatment/Plan Treatment Plan: Continue Plan of Care Treatment Plan: Bed Mobility, Education, Functional Activity Sammie, Functional Strength, Gait, Safety, Therapeutic Exercise, Transfers Treatment Duration: Dec 24, 2019 Frequency: 6 times per week Estimated Hrs Per Day: .25 hour per day Patient and/or Family Agrees t: Yes Time/GCodes Time In: 904 Time Out: 932 Total Billed Treatment Time: 28 Total Billed Treatment 1 visit FA 16 min EX 12 min WOODY STARKEY PT December 15, 2019 09:57
--- NOTE | 2019-12-15 10:37 | Occupational Ther Daily Note ---
OT Current Status-Daily Note Subjective Pt alert, sitting in recliner. Granddaughter in room to assist with transfers. Pt requested to use toilet. Nrsg in room. Pt c/o pain in back. Mental Status/Objective Patient Orientation: Person Attachments: Mendez Catheter, IV ADL-Treatment Assist x2-3 to stand with pt pulling on grabbar. Recliner moved and BSC placed for BM. Pt dependent for clothing manipulation and hygiene. Pt c/o pain throughout session. After session, pt in recliner. Physician, nrsg and granddaughter in room. Call light/phone in reach. All needs met in room. Therapy Code Descriptions/Definitions Functional [place] Measure: 0=Not Assessed/NA 4=Minimal Assistance 1=Total Assistance 5=Supervision or Setup 2=Maximal Assistance 6=Modified [place] 3=Moderate Assistance 7=Complete IndependenceSCALE: Activities may be completed with or without assistive devices. 9-Thurnxznew-mflnbju completes the activity by him/herself with no assistance from a helper. 5-Set-up or Clean-up Assistance-helper sets up or cleans up; patient completes activity. [place] assists only prior to or following the activity. 4-Supervision or Touching Assistance-helper provides verbal cues and/or touching/steadying and/or contact guard assistance as patient completes activity. Assistance may be provided throughout the activity or intermittently. 3-Partial/Moderate Assistance-helper does LESS THAN HALF the effort. [place] lift s, holds or supports trunk or limbs, but provides less than half the effort. 2-Substantial/Maximal Assistance-helper does MORE THAN HALF the effort. [place] lifts or holds trunk or limbs and provides more than half the effort. 1-Rnxobrczd-gwbiox does ALL the effort. Patient does none of the effort to complete the activity. Or, the assistance of 2 or more helpers is required for the patient to complete the activity. If activity was not attempted, code reason: 7-Patient Refused. 9-Not Applicable-not attempted and the patient did not perform the activity before the current illness, exacerbation or injury. 10-Not Attempted due to Environmental Limitations-(lack of equipment, weather restraints, etc.). 88-Not Attempted due to Medical Conditions or Safety Concerns. Toileting Hygiene (QC): 1 Toilet Transfer (QC): 1 OT Usp Goals Usp Goals Time Frame: Dec 23, 2019 Eating (QC): 6 Oral Hygiene (QC): 6 Toileting Hygiene (QC): 2 Shower/Bathe Self (QC): 3 Upper Body Dressing (QC): 3 Lower Body Dressing (QC): 2 On/Off Footwear (QC): 3 Additional Goals: 1-Demonstrate ADL Tasks, 2-Verbalize Understanding, 3-ImproveStrength/Sammie 1=Demonstrate adherence to instructed precautions during ADL tasks. 2=Patient will verbalize/demonstrate understanding of assistive devices/modifications for ADL. 3=Patient will improve strength/tolerance for activity to enable patient to perform ADL's. OT Education/Plan Problem List/Assessment Assessment: Decreased Activ Tolerance, Decreased Safety Aware, Decreased UE Strength, Dependent Transfers, Impaired Cognition, Impaired Coordination, Impaired Funct Balance, Impaired Self-Care Skills, Restricted Funct UE ROM Discharge Recommendations Plan/Recommendations: Continue POC Treatment Plan/Plan of Care Patient would benefit from OT for education, treatment and training to promote independence in ADL's, mobility, safety and/or upper extremity function for ADL's. Plan of Care: ADL Retraining, Functional Mobility, UE Funct Exercise/Act Treatment Duration: December 12, 2019 Frequency: 5 times per week Estimated Hrs Per Day: .25 hour per day Agreement: Yes Rehab Potential: Guarded Time/GCodes Start Time: 11:00 Stop Time: 11:20 Total Time Billed (hr/min): 20 Billed Treatment Time 1 visit-ADL 1 (20 min) KEMAR DEAN December 15, 2019 10:37
[2019-12-15] MEDS: CHOLESTYRAMINE 4 GM (QUESTRAN LITE, PREVALITE) PKT PO SCH (11:39)
--- NOTE | 2019-12-15 12:39 | NUR ---
Dr Ga et I met with the patient et grand daughter to discuss plan of care et discharge planning. Viviana has made verbalizations to me that she has not wanted to participate with therapies but has said that she wants to get better. We talked about if her goal was to get better then a big piece of that would be working with therapies to increase her strength. When we talk about therapies she becomes silent et does not respond. With Pat et her grand daughter present we all discussed this. We explored all discharge options et POC, including home with hospice. Grand daughter Johanna became very frustrated with that being discussed as a discharge option et voiced her general frustration of not being able to visit her grandmother d/t RICHARD. We listened to her voiced frustrations et validated her frustration of not being able to visit prior to this. 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 She reports supporting that et understanding that her grandma is able to make her own decisions but that she has recently lost a grandparent et is not ready for her grandmother to pass away. Encouraged both of them to talk with each other et call me back with Pat's decision for continued care plans. Johanna called me back to the room shortly after our initial visit et reports that her grandmother would like to go to [facility] for skilled therapies for one week to see if she can regain her strength. I followed up with Pat et she reports that is what she would like to do. A referral was sent to [facility] with discharge set for tomorrow 12/16/19 pending acceptance.
--- NOTE | 2019-12-15 13:33 | Progress Note - Hospitalist ---
Subjective HPI/CC On Admission Date Seen by Provider: December 15, 2019 Time Seen by Provider: 10:30 Subjective/Events-last exam She is not very talkative and uncooperative today. She denies any pain. She denies any trouble breathing. She denies any nausea or vomiting. Her granddaughter is present. I discussed the discharge plan with both Viviana and her granddaughter. We discussed possible detention facility placement for ongoing therapy which Pat was not open to when I was discussing this with her. We also discussed the option of hospice and Pat said that she would have to talk with her family about this. After discussion with her family, Viviana agreed to a detention facility placement. Objective Exam Vital Signs Vital Signs Date Time Temp Pulse Resp B/P (MAP) Pulse Ox O2 Delivery O2 Flow Rate FiO2 12/15/19 09:00 Room Air 12/15/19 05:46 36.0 60 16 104/65 (78) 94 Capillary Refill : Less Than 3 SecondsLess Than 3 Seconds General Appearance: No Apparent Distress, Obese Respiratory: Lungs Clear, Normal Breath Sounds, No Respiratory Distress Cardiovascular: Regular Rate, Rhythm, No Murmur Gastrointestinal: Normal Bowel Sounds, Non Tender, Soft Extremity: Normal Inspection, Non Tender, Pedal Edema Neurologic/Psychiatric: Alert, Depressed Affect, Other (uncooperative) Skin: Warm/Dry, Pallor Results/Procedures Lab Laboratory Tests 12/15/19 04:27 Patient resulted labs reviewed. Assessment/Plan Assessment and Plan Assess & Plan/Chief Complaint Advanced care planning Debility discussed hospice care with patient and family Continue PT/OT referral sent to [facility] UTI, resolved History of ESBL urine culture revealed ESBL Klebsiella oxytoca Completed course of Merrem Chronic diastolic heart failure Chronic kidney disease renal function improving Holding diuretics Type II diabetes mellitus Sliding scale insulin Atrial fibrillation CAD PAD SSS s/p pacemaker placement h/o aortic stenosis s/p TAVR Continue Eliquis and Coreg Continue home meds Hypertension Depression Coronary artery disease Continue home meds DVT prophylaxis: Already receiving therapeutic anticoagulation Diagnosis/Problems Diagnosis/Problems (1) Advanced care planning/counseling discussion Status: Acute (2) Debility Status: Acute (3) UTI (urinary tract infection) Status: Acute (4) Infection with ESBL Klebsiella oxytoca Status: Acute (5) CKD (chronic kidney disease) Status: Chronic Qualifiers: Chronic kidney disease stage: stage 3 (moderate) Qualified Codes: N18.3 - Chronic kidney disease, stage 3 (moderate) Clinical Quality Measures DVT/VTE Risk/Contraindication: Risk Factor Score Per Nursin CRIS WALDEN MD December 15, 2019 13:33
[2019-12-15 18:59] VITALS: BP 97/62
[2019-12-15] MEDS: SERTRALINE 50 MG (ZOLOFT) TABLET PO SCH (20:37)
[2019-12-16 05:47] LABS: CREATININE SERUM 1.84 MG/DL (0.60-1.30)
[2019-12-16] MEDS: inSUlin ASPART (NovoLOG) 1 UNIT/0.01 ML (CHARGE PER UNIT) SC SCH ×2 (05:52→11:12)
[2019-12-16 06:30] VITALS: BP 102/62
[2019-12-16] MEDS: CLOPIDOGREL 75 MG (PLAVIX) TABLET PO SCH (08:31)
[2019-12-16] MEDS: APIXABAN 2.5 MG (ELIQUIS) TABLET PO SCH (08:31)
[2019-12-16] MEDS: PANTOPRAZOLE 40 MG (PROTONIX) TAB PO SCH (08:31)
[2019-12-16] MEDS: TAMSULOSIN 0.4 MG (FLOMAX) CAP PO SCH (08:31)
[2019-12-16] MEDS: LACTOBACILLUS ACIDOPHILUS (PROBIOTIC) CAPSULE PO SCH (08:31)
[2019-12-16] MEDS: BETHANECHOL 25 MG (URECHOLINE) TAB PO SCH (08:32)
[2019-12-16] MEDS: MICONAZOLE 2% POWDER (DESENEX AF) 90 GM TOP SCH (08:32)
[2019-12-16] MEDS ORDERED: DIAZ5TAB49 PO (09:17)
--- NOTE | 2019-12-16 09:25 | Discharge Summary ---
Discharge Summary Reconcile Patient Problems Problems Reviewed?: Yes Hospital Course Hospital Course Date of Admission: December 05, 2019 at 12:42 Admission Diagnosis : Urinary tract infection Family Physician/Provider: Rashaun Gonzales MD Date of Discharge: 12/16/19 Discharge Diagnosis: urinary tract infection due to ESBL Klebsiella oxytoca, debility Hospital Course: Shamika Cain is an 79-year-old female who was admitted due to urinary tract infection caused by ESBL Klebsiella oxytoca. She was treated with a course of IV Merrem. Her course was complicated by acute on chronic kidney disease. Her Lasix was held and her BUN/creatinine improved. She also suffered from acute on chronic debility. Physical and occupational therapy were c onsulted and assisted with her care. She was discharged to [facility] for ongoing therapy. Advanced care planning discussions were had with the patient and family regarding the possibility for hospice care, but this was not pursued at this time. Labs and Pending Lab Test: Laboratory Tests 12/15/19 11:13: Glucometer 207H 12/15/19 15:34: Glucometer 198H 12/15/19 20:19: Glucometer 216H 12/16/19 05:17: Sodium Level 136, Potassium Level 5.0, Chloride Level 102, Carbon Dioxide Level 22, Anion Gap 12, Blood Urea Nitrogen 61H, Creatinine 1.84H, Estimat Glomerular Filtration Rate 26, BUN/Creatinine Ratio 33, Glucose Level 155H, Calcium Level 9.0 Home Meds Active Boudreauxs (Zinc Oxide) 28 Gm Oint 0 Gm TOP NEEDED PRN Nystatin 15 Gm Cream..g. 0 Gm TP TID Lotrimin AF (Miconazole Nitrate) 90 Gm Powder 0 Gm TOP BID Reported Humalog (Insulin Lispro) 100 Unit/1 Ml Vial Units SC UD USES PER INSULIN PUMP Ondansetron HCl 4 Mg Tablet 4 Mg PO Q8H PRN Sertraline HCl 25 Mg Tablet 25 Mg PO HS Ferrous Sulfate 325 Mg Tablet 325 Mg PO BID Diazepam 5 Mg Tablet 5 Mg PO DAILY PRN Vitamin D3 (Cholecalciferol (Vitamin D3)) 25 Mcg Capsule 25 Mcg PO 1200 Benadryl Allergy (Diphenhydramine HCl) 25 Mg Tablet 25 Mg PO Q6H PRN Hydroxyzine HCl 25 Mg Tablet 25-50 Mg PO HS PRN Metoprolol Succinate 25 Mg Tab.er.24h 12.5 Mg PO DAILY TAKES 1/2 (25MG) TABLET Eliquis (Apixaban) 5 Mg Tablet 2.5 Mg PO BID TAKES 1/2 (5MG) TABLET Colace (Docusate Sodium) 100 Mg Capsule 100 Mg PO HS Pantoprazole Sodium 40 Mg Tablet.dr 40 Mg PO DAILY Acetaminophen 325 Mg Tablet 650 Mg PO Q4H PRN Vitamin B-12 (Cyanocobalamin (Vitamin B-12)) 500 Mcg Tablet 1,000 Mcg PO 1200 Midodrine HCl 10 Mg Tablet 10 Mg PO BID Allopurinol 100 Mg Tablet 100 Mg PO DAILY Premarin (Estrogens Conjugated) 30 Gm Cr VG MOWEFR Rosuvastatin Calcium 20 Mg Tablet 20 Mg PO HS Clopidogrel (Clopidogrel Bisulfate) 75 Mg Tablet 75 Mg PO DAILY LAST FILLED 07-06-2019 #90 Instructions to Patient/Family Assessment/Instructions Take medications as prescribed. Participate in therapies. Follow-up with your primary care physician. Follow Up Appt.: Next mcc Janet ayon in two weeks Skilled NF Admit to: [facility] [place] Certification ([facility]) I certify that SNF services are required to be given on an inpatient basis because of the above named patient's need for fpc care on a continuing basis for the conditions(s) for which he/she was receiving inpatient hospital services prior to his/her transfer to the SNF. Fpc Facility Order: Nursing Services, Programmer Developer-Evaluate & Treat, Physical Therapy-Evaluate & Treat Oxygen Delivery Method: Room Air Discharge Diet: No Restrictions Daily Activity as Tolerated: Yes Resuscitation Status: Do Not Resuscitate Ana Walden December 16, 2019 09:18 Discharge Physical Exam General: Alert, No Acute Distress Lungs: Clear to Auscultation, Normal Air Movement Heart: Regular Rate, Normal S1, Normal S2, No Murmurs Abdomen: Normal Bowel Sounds, Soft, No Tenderness Extremities: Other (1+ edema) Psych/Mental Status: Other (Flat affect, uncooperative) ANA WALDEN MD December 16, 2019 09:24
--- NOTE | 2019-12-16 10:19 | Therapy Team Discharge Summary ---
Therapy Discharge Summary Discharge Recommendations Date of Discharge Physical Therapy Patient has been seen by skilled therapy to address functional strength and mobility. Upon initial evaluation, patient is dependent with all mobility of 2- 3 staff. Patient unable to sit EOB without dependent assist and required assistance with all exercises. She is very edematous throughout hospital stay. PT did family education to determine POC 12/15/19. It was determined that patient would require continued assisted at a facility due to patient's lack of progress in hospital. Patient continues to require dependent assist of 2-3 staff for all bed mobility and transfers. PT to continue at [facility] with plan to return to home with family at maximum LOF. Goals address but not attained. Occupational Therapy Decreased Activ Tolerance, Decreased Safety Aware, Decreased UE Strength, Dependent Transfers, Impaired Cognition, Impaired Coordination, Impaired Funct Balance, Impaired Self-Care Skills, Restricted Funct UE ROM PT Auto Detailer Goals Auto Detailer Goals PT Auto Detailer Goals Time Frame: Dec 24, 2019 Roll Left to Right (QC): 2 Sit to Lying (QC): 2 Lying-Sitting on Side/Bed(QC): 2 Sit to Stand (QC): 3 Chair/Zzt-vv-Oehoj Xfer(QC): 3 Car Transfer (QC): 2 Does the Patient Walk: No and Walking Goal IS indicated Walk 10 feet (QC): 2 Walk 10ft-Uneven Surface(QC): 88 Walk 50ft with 2 Turns (QC): 88 Walk 150 ft (QC): 88 Wheel 50 feet with 2 turns (QC: 88 1 Step (curb) (QC): 88 4 Steps (QC): 88 12 Steps (QC): 88 Picking up an Object (QC): 88 OT Auto Detailer Goals Retirement Goals Time Frame: Dec 23, 2019 Eating (QC): 6 Oral Hygiene (QC): 6 Shower/Bathe Self (QC): 3 Upper Body Dressing (QC): 3 Lower Body Dressing (QC): 2 On/Off Footwear (QC): 3 Toileting Hygiene (QC): 2 Toilet/Commode Transfer (QC): 3 Additional Goals: 1-Demonstrate ADL Tasks, 2-Verbalize Understanding, 3- ImproveStrength/Sammie 1=Demonstrate adherence to instructed precautions during ADL tasks. 2=Patient will verbalize/demonstrate understanding of assistive devices/modifications for ADL. 3=Patient will improve strength/tolerance for activity to enable patient to perform ADL's. WOODY STARKEY PT December 16, 2019 10:19
--- NOTE | 2019-12-16 10:40 | NUR ---
Patient has been accepted to [facility] skilled for therapies for discharge today. Spoke with patient's grand daughter Johanna last night to let her know that she has been accepted. Her daughter Leela is at bedside this morning. Coordinated with [facility] staff, primary care nurse, PCT, et daughter at bedside for case picker time of 11:30 a.m. Daughter has requested that Pat receive a bed bath before she leaves today. ALBERT Bo reports that she will be able to provide that. I informed Pat of the above information et she reports agreement. No further needs noted at this time.
--- NOTE | 2019-12-16 11:30 | NUR ---
ANUP SUH Olaf demonstrates understanding of discharge instructions and accurately returns instructions upon questioning. Copy of Post-Discharge Instructions given to PT. ANUP SUH Olaf is able to manage continuing needs after discharge. Patients belongings returned to PT. Patient discharged from 405-1 on 12/16/19 at 1130. ANUP SUH left floor via [facility], accompanied by STAFF AND [facility]. Addendum: 12/16/19 at 1245 by ALEXEI ELIZABETH RN [facility] [place] [facility] [employer] TAMIKA MOJICA UNDERSTANDS INSTRUCTIONS
--- NOTE | 2019-12-19 11:51 | Therapy Team Discharge Summary ---
Therapy Discharge Summary Discharge Recommendations Date of Discharge December 16, 2019 at 11:30 Occupational Therapy Pt admitted with Dx of UTI/debility. OT tx with focus on increasing BUE strength and endurance, increasing independence and safety with ADLS and functional mobility/transfers. Upon admission, pt was independent with feeding and oral hygiene, max A with showering, mod A with upper body dressing, and total assist with lower body dressing/footwear and toileting. During txs, pt continued to require total assist with toileting and she went from total assist with footwear to max A. Pt's goals addressed, she met IND level with feeding and oral care but did not meet any further goals. Pt d/c to [facility], with recommendations for continued skilled OT. Decreased Activ Tolerance, Decreased Safety Aware, Decreased UE Strength, Dependent Transfers, Impaired Cognition, Impaired Coordination, Impaired Funct Balance, Impaired Self-Care Skills, Restricted Funct UE ROM PT Fdc Goals Fdc Goals PT Compensation And Benefits Analyst Goals Time Frame: Dec 24, 2019 Roll Left to Right (QC): 2 Sit to Lying (QC): 2 Lying-Sitting on Side/Bed(QC): 2 Sit to Stand (QC): 3 Chair/Zgf-tq-Izrav Xfer(QC): 3 Car Transfer (QC): 2 Does the Patient Walk: No and Walking Goal IS indicated Walk 10 feet (QC): 2 Walk 10ft-Uneven Surface(QC): 88 Walk 50ft with 2 Turns (QC): 88 Walk 150 ft (QC): 88 Wheel 50 feet with 2 turns (QC: 88 1 Step (curb) (QC): 88 4 Steps (QC): 88 12 Steps (QC): 88 Picking up an Object (QC): 88 OT Compensation And Benefits Analyst Goals Fdc Goals Time Frame: Dec 23, 2019 Eating (QC): 6 (met) Oral Hygiene (QC): 6 (met) Shower/Bathe Self (QC): 3 (not met) Upper Body Dressing (QC): 3 (not met) Lower Body Dressing (QC): 2 (not met) On/Off Footwear (QC): 3 (not met) Toileting Hygiene (QC): 2 (not met) Toilet/Commode Transfer (QC): 3 (not met) Additional Goals: 1-Demonstrate ADL Tasks, 2-Verbalize Understanding, 3- ImproveStrength/Sammie 1=Demonstrate adherence to instructed precautions during ADL tasks. 2=Patient will verbalize/demonstrate understanding of assistive devices/modifications for ADL. 3=Patient will improve strength/tolerance for activity to enable patient to perform ADL's. LEILANI CUENCA OT Dec 19, 2019 11:51
== END 2019-12-16 11:30 | DRG 690 ==
LOC: 4TH 12:42
PROVIDERS: ADMIT Family Medicine; ATTEND Internal Medicine
DX: N39.0 Urinary tract infection, site not specified (principal); B96.1 Klebsiella pneumoniae [K. pneumoniae] as the cause of diseases classified elsewhere; R53.81 Other malaise; I13.0 Hypertensive heart and chronic kidney disease with heart failure and stage 1 through stage 4 chronic kidney disease, or unspecified chronic kidney disease; N18.3 Chronic kidney disease, stage 3 (moderate); I50.32 Chronic diastolic (congestive) heart failure; Z16.12 Extended spectrum beta lactamase (ESBL) resistance; I48.91 Unspecified atrial fibrillation; Z66 Do not resuscitate; E11.51 Type 2 diabetes mellitus with diabetic peripheral angiopathy without gangrene; E11.40 Type 2 diabetes mellitus with diabetic neuropathy, unspecified; E11.22 Type 2 diabetes mellitus with diabetic chronic kidney disease; I25.10 Atherosclerotic heart disease of native coronary artery without angina pectoris; I25.2 Old myocardial infarction; E78.00 Pure hypercholesterolemia, unspecified; R01.1 Cardiac murmur, unspecified; K58.9 Irritable bowel syndrome, unspecified; F32.9 Major depressive disorder, single episode, unspecified; M19.91 Primary osteoarthritis, unspecified site; E66.9 Obesity, unspecified; Z95.5 Presence of coronary angioplasty implant and graft; Z95.0 Presence of cardiac pacemaker; Z79.4 Long term (current) use of insulin; Z86.73 Personal history of transient ischemic attack (TIA), and cerebral infarction without residual deficits; Z79.01 Long term (current) use of anticoagulants; Z85.3 Personal history of malignant neoplasm of breast; Z92.3 Personal history of irradiation; Z68.35 Body mass index [BMI] 35.0-35.9, adult
CPT/HCPCS: 36415; 80048; 82962; 84100; 85027

== ENCOUNTER 2020-01-10 17:40 | Emergency (ER) | payer MEDICARE, MEDICAID ==
[~2020-01-10] VITALS: Ht 175 cm; Wt 107.7 kg
[2020-01-10 17:56] LABS: BASOPHILS % (AUTO) 0 % (0-10); EOSINOPHILS # (AUTO) 0.1 10^3/uL (0.0-0.3); EOSINOPHILS % (AUTO) 1 % (0-10); HEMATOCRIT 41 % (35-52); HEMOGLOBIN 13.1 G/DL (11.5-16.0); LYMPHOCYTES # (AUTO) 1.7 X 10^3 (1.0-4.0); LYMPHOCYTES % (AUTO) 9 % (12-44); MEAN CORPUSCULAR HEMOGLOBIN 27 PG (25-34); MEAN CORPUSCULAR HGB CONC 32 G/DL (32-36); MEAN CORPUSCULAR VOLUME 85 FL (80-99); MONOCYTES # (AUTO) 1.1 X 10^3 (0.0-1.0); MONOCYTES % (AUTO) 6 % (0-12); NEUTROPHILS # (AUTO) 15.9 X 10^3 (1.8-7.8); NEUTROPHILS % (AUTO) 85 % (42-75); PLATELET COUNT 399 10^3/uL (130-400); RED CELL DISTRIBUTION WIDTH 20.5 % (10.0-14.5); WHITE BLOOD COUNT 18.8 10^3/uL (4.3-11.0)
--- NOTE | 2020-01-10 17:59 | ED General ---
General Chief Complaint: General Problems/Pain Stated Complaint: CP Source of Information: Patient Exam Limitations: No Limitations History of Present Illness Date Seen by Provider: Jan 10, 2020 Time Seen by Provider: 17:57 Initial Comments To ER with reports of chest pain and concern for left breast cellulitis. She was called in doxycycline for the breast cellulitis but has not yet started that. It was just called him today. She has a long cardiac history with coronary artery disease and peripheral vascular disease with a multitude of coronary and peripheral stents. She took 2 nitroglycerin yesterday the pain improved. She is on hospice. Hospice physician wanted her sent to ER to make sure she wasn't actively having a heart attack. Timing/Duration: 1-2 Days Severity: Moderate Associated Systoms: Denies Symptoms Allergies and Home Medications Allergies Coded Allergies: sulfamethoxazole (Verified Allergy, Intermediate, 01/10/20) tramadol (Verified Allergy, Intermediate, 01/10/20) trimethoprim (Verified Allergy, Intermediate, 01/10/20) Penicillins (Verified Allergy, Unknown, 01/10/20) codeine (Verified Allergy, Unknown, CAN TAKE MORPHINE, 01/10/20) hydrocodone (Verified Allergy, Unknown, 01/10/20) morphine (Verified Adverse Reaction, Intermediate, Nausea, 01/10/20) amiodarone (Verified Adverse Reaction, Mild, NAUSEA, dizziness, 01/10/20) Home Medications Acetaminophen 325 Mg Tablet, 650 MG PO Q4H PRN for PAIN-MILD (1-4), (Reported) Allopurinol 100 Mg Tablet, 100 MG PO DAILY, (Reported) Apixaban 5 Mg Tablet, 2.5 MG PO BID, (Reported) TAKES 1/2 (5MG) TABLET Cholecalciferol (Vitamin D3) 25 Mcg Capsule, 25 MCG PO 1200, (Reported) Cholestyramine (with Sugar) 4 Gm Powd.pack, 4 GM PO BID, (Reported) Clopidogrel Bisulfate 75 Mg Tablet, 75 MG PO DAILY, (Reported) LAST FILLED 07-06-2019 #90 Cyanocobalamin (Vitamin B-12) 500 Mcg Tablet, 1,000 MCG PO 1200, (Reported) Diazepam 5 Mg Tablet, 5 MG PO DAILY PRN for ANXIETY Prescribed by: CRIS WALDEN on 12/16/19 0917 Diphenhydramine HCl 25 Mg Tablet, 25 MG PO Q6H PRN for ITCHING, (Reported) Docusate Sodium 100 Mg Capsule, 100 MG PO HS, (Reported) Estrogens Conjugated 30 Gm Cr, VG MoWeFr, (Reported) Ferrous Sulfate 325 Mg Tablet, 325 MG PO BID, (Reported) Hydroxyzine HCl 25 Mg Tablet, 25-50 MG PO HS PRN for SLEEP, (Reported) Insulin Lispro 100 Unit/1 Ml Vial, UNITS SC UD, (Reported) USES PER INSULIN PUMP Metoprolol Succinate 25 Mg Tab.er.24h, 12.5 MG PO DAILY, (Reported) TAKES 1/2 (25MG) TABLET Miconazole Nitrate 90 Gm Powder, 0 GM TOP BID Prescribed by: KIMMY HANSON on 10/10/19900 Midodrine HCl 10 Mg Tablet, 10 MG PO BID, (Reported) Nystatin 15 Gm Cream..g., 0 GM TP TID Prescribed by: KIMMY HANSON on 10/10/19900 Ondansetron HCl 4 Mg Tablet, 4 MG PO Q8H PRN for NAUSEA/VOMITING-1ST LINE, (Reported) Pantoprazole Sodium 40 Mg Tablet.dr, 40 MG PO DAILY, (Reported) Rosuvastatin Calcium 20 Mg Tablet, 20 MG PO HS, (Reported) Sertraline HCl 25 Mg Tablet, 25 MG PO HS, (Reported) Zinc Oxide 28 Gm Oint, 0 GM TOP NEEDED PRN for DIAPER CHANGE Prescribed by: KIMMY HANSON on 10/10/19900 Patient Home Medication List Home Medication List Reviewed: Yes Review of Systems Review of Systems Constitutional: see HPI, other (poor historian unable to obtain history of present illness/ROS. It was obtained as best possible from tray drier operator and family) EENTM: see HPI (Disorders) Past Lpnrymu-Fcvtbv-Xqjmbk Hx Patient Social History Alcohol Use: Denies Use Recreational Drug Use: No 2nd Hand Smoke Exposure: No Recent Hopitalizations: No Physical Abuse: No Sexual Abuse: No Mistreated: No Fear: No Immunizations Up To Date Tetanus Booster (TDap): Unknown Date of Pneumonia Vaccine: Sep 02, 2019 Date of Influenza Vaccine: Apr 19, 2019 Seasonal Allergies Seasonal Allergies: No Past Medical History Surgeries: Yes (PACEMAKER, CAROTID ARTERY, HEART CATH-STENTS /ANGIOPLASTY, TAVR) Cardiac, Coronary Stent, Gallbladder, Hysterectomy, Oophorectomy, Orthopedic, Pacemaker, Vascular Surgery Respiratory: Yes Sleep Apnea Currently Using CPAP: No Currently Using BIPAP: No Cardiac: Yes (PACEMAKER, CHF, STENTS X12, AORTIC VALVE REPLACED, CHEST TUBES) Atrial Fibrillation, Chronic Edema/Swelling, Coronary Artery Disease, Heart Attack, Heart Murmur, High Cholesterol, Hypertension, Peripheral Vascular, Rheumatic Fever Neurological: Yes (TIA AFTER STENT IN JUNE) Neuropathy, TIA Reproductive Disorders: No SPEED BELT SANDER History: Hysterectomy, Menopausal Sexually Transmitted Disease: No Genitourinary: Yes Bladder Infection, UTI-Chronic Gastrointestinal: Yes C-Diff, Irritable Bowel Musculoskeletal: Yes ( 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 ) Arthritis Endocrine: Yes (INSULIN PUMP, 3 THYROID NODULES) Diabetes, Insulin dep Cataract Loss of Vision: Left Hearing Impairment: Deaf Cancer: Yes (BREAST CA 2010; lymph node removal only) Breast Did You Recieve Any Treatments: Yes What Type of Treatment Did You: Radiation Psychosocial: No Integumentary: Yes (DIABETIC FOOT ULCER ON LEFT--PT STATES IS NOW HEALED. ) Blood Disorders: No Adverse Reaction/Blood Tranf: No Family Medical History Cardiovascular disease 19 FATHER 19 MOTHER G8 BROTHER G8 SISTER G8 SISTER G8 SISTER Completed stroke 19 FATHER G8 SISTER Diabetes mellitus 19 FATHER G8 SISTER G8 SISTER FH: cancer G8 SISTER G8 SISTER Myocardial infarction G8 BROTHER (65 YEARS OLD) No Pertinent Family Hx Physical Exam Vital Signs Vital Signs - First Documented 01/10/20 17:41 Temp 36.4 Pulse 86 Resp 20 B/P (MAP) 121/76 (91) Pulse Ox 97 O2 Delivery Nasal Cannula Capillary Refill : Height, Weight, BMI Height: 5'6.00" Weight: 223lbs. 0.5oz. [id number]; 35.91 BMI Method:Stated General Appearance: No Apparent Distress, WD/WN, Chronically ill (no distress oxygen saturation 92% room air. Confused, not sure why she is here.) Eyes: Bilateral Eye Normal Inspection, Bilateral Eye PERRL HEENT: PERRL/EOMI, TMs Normal Neck: Full Range of Motion, Normal Inspection Respiratory: No Accessory Muscle Use, No Respiratory Distress Gastrointestinal: Normal Bowel Sounds, Non Tender Extremity: Normal Capillary Refill, Normal Inspection Neurologic/Psychiatric: Other (lethargic but arousable to verbal stimuli) Skin: Normal Color, Warm/Dry Progress/Results/Core Measures Suspected Sepsis SIRS Temperature: Pulse: Respiratory Rate: Laboratory Tests 01/10/20 17:46: White Blood Count 18.8H Blood Pressure / Mean: Laboratory Tests 01/10/20 17:46: Creatinine 1.57H, Platelet Count 399 Results/Orders Lab Results Laboratory Tests Test 01/10/20 17:46 Range/Units White Blood Count 18.8 H 4.3-11.0 10^3/uL Red Blood Count 4.84 4.35-5.85 10^6/uL Hemoglobin 13.1 11.5-16.0 G/DL Hematocrit 41 35-52 % Mean Corpuscular Volume 85 80-99 FL Mean Corpuscular Hemoglobin 27 25-34 PG Mean Corpuscular Hemoglobin Concent 32 32-36 G/DL Red Cell Distribution Width 20.5 H 10.0-14.5 % Platelet Count 399 130-400 10^3/uL Mean Platelet Volume 9.0 7.4-10.4 FL Neutrophils (%) (Auto) 85 H 42-75 % Lymphocytes (%) (Auto) 9 L 12-44 % Monocytes (%) (Auto) 6 0-12 % Eosinophils (%) (Auto) 1 0-10 % Basophils (%) (Auto) 0 0-10 % Neutrophils # (Auto) 15.9 H 1.8-7.8 X 10^3 Lymphocytes # (Auto) 1.7 1.0-4.0 X 10^3 Monocytes # (Auto) 1.1 H 0.0-1.0 X 10^3 Eosinophils # (Auto) 0.1 0.0-0.3 10^3/uL Basophils # (Auto) 0.0 0.0-0.1 10^3/uL Sodium Level 133 L 135-145 MMOL/L Potassium Level 4.8 3.6-5.0 MMOL/L Chloride Level 100 98-107 MMOL/L Carbon Dioxide Level 22 21-32 MMOL/L Anion Gap 11 5-14 MMOL/L Blood Urea Nitrogen 46 H 7-18 MG/DL Creatinine 1.57 H 0.60-1.30 MG/DL Estimat Glomerular Filtration Rate 32 BUN/Creatinine Ratio 29 Glucose Level 207 H 70-105 MG/DL Calcium Level 9.2 8.5-10.1 MG/DL Troponin I < 0.028 <0.028 NG/ML My Orders Orders - DARYL PIEDRA PLASTER DIE MAKER Cbc With Automated Diff (01/10/20 17:46) BNP (01/10/20 17:46) Basic Metabolic Panel (01/10/20 17:46) Chest 1 View, Ap/Pa Only (01/10/20 17:46) Troponin I (01/10/20 17:56) Manual Differential (01/10/20 17:46) Ekg Tracing (01/10/20 18:06) Ceftriaxone For Im Use (Rocephin For Im (01/10/20 18:15) Lidocaine 1% Inj 20 Ml (Xylocaine 1% Inj (01/10/20 18:15) Vital Signs/I&O 01/10/20 17:41 Temp 36.4 Pulse 86 Resp 20 B/P (MAP) 121/76 (91) Pulse Ox 97 O2 Delivery Nasal Cannula Capillary Refill : Departure Communication (Admissions) we will dc to home to start oral doxycycline and resume hospice care. Discussed with patients DPOA who agrees with this plan to keep her comfortable and dc to home. Impression Primary Impression: Cellulitis of breast Additional Impressions: End of life care Pleural effusion, left Disposition: 01 HOME, SELF-CARE Condition: Stable/Unchanged Departure-Patient Inst. Decision time for Depature: 18:15 Referrals: JOE ROBERTSON MD (PCP/Family) Primary Care Physician Patient Instructions: Cellulitis (Skin Infection), Adult (DC), Pleural Effusion (DC) DARYL PIEDRA PLASTER DIE MAKER Jan 10, 2020 17:59
[2020-01-10 18:07] LABS: POTASSIUM 4.8 MMOL/L (3.6-5.0)
[2020-01-10 18:08] LABS: CALCIUM 9.2 MG/DL (8.5-10.1)
[2020-01-10 18:12] LABS: CREATININE SERUM 1.57 MG/DL (0.60-1.30)
[2020-01-10] MEDS ORDERED: LIDOCAINE 1% INJ 20 ML 20 ML VIAL INJ ONE (18:15)
[2020-01-10] MEDS ORDERED: cefTRIAXone 1,000 MG/2.86 ml vial (IM ONLY) IM SCH (18:15)
[2020-01-10] MEDS ORDERED: CHOL4PAC16 PO (18:19)
--- NOTE | 2020-01-10 18:21 | Diagnostic Imaging Report ---
INDICATION: Chest pain. FINDINGS: There is cardiomegaly with mild pulmonary venous distention. There is near-complete opacification of the left hemithorax which I believe is from a large left-sided effusion as there is some shift of midline structures to the right as compared to a more normal study dated 09/23/2019. The right lung is clear. There is no effusion on the right. No pneumothorax is seen. Pacemaker is present. There are changes of prior aortic valve replacement. IMPRESSION: Since 09/23/2019, there is developed near-complete opacification of the left hemithorax which I believe is from a large left-sided effusion rather than atelectasis. Ultrasound may be helpful for further evaluation of this, if felt indicated. Dictated by: Dictated on workstation # [id number]
[2020-01-10 18:45] VITALS: BP 144/79
[2020-01-10 18:45] LABS: ANISOCYTOSIS SLIGHT; LYMPHOCYTES % (MANUAL) 11 %; MONOCYTES % (MANUAL) 1 %; NEUTROPHILS % (MANUAL) 88 %
== END 2020-01-10 18:55 | disposition home or self-care (01) ==
LOC: EDUNIT# 17:40 → ER 17:43
DX: N61.0 Mastitis without abscess (principal); J90 Pleural effusion, not elsewhere classified; E11.621 Type 2 diabetes mellitus with foot ulcer; L97.529 Non-pressure chronic ulcer of other part of left foot with unspecified severity; E11.40 Type 2 diabetes mellitus with diabetic neuropathy, unspecified; I11.0 Hypertensive heart disease with heart failure; I48.91 Unspecified atrial fibrillation; I50.9 Heart failure, unspecified; I25.2 Old myocardial infarction; I25.10 Atherosclerotic heart disease of native coronary artery without angina pectoris; E78.00 Pure hypercholesterolemia, unspecified; Z85.3 Personal history of malignant neoplasm of breast; Z51.5 Encounter for palliative care; Z88.5 Allergy status to narcotic agent; Z88.2 Allergy status to sulfonamides; Z88.8 Allergy status to other drugs, medicaments and biological substances; Z79.01 Long term (current) use of anticoagulants; Z86.73 Personal history of transient ischemic attack (TIA), and cerebral infarction without residual deficits; Z79.02 Long term (current) use of antithrombotics/antiplatelets; Z88.1 Allergy status to other antibiotic agents; Z95.5 Presence of coronary angioplasty implant and graft; Z79.4 Long term (current) use of insulin; Z82.49 Family history of ischemic heart disease and other diseases of the circulatory system; Z88.0 Allergy status to penicillin
CPT/HCPCS: 36415; 71045; 80048; 83880; 84484; 85007; 85027; 93005; 96372